=== PATIENT | female | born 1940 | race African-American/Black ===

== ENCOUNTER 2018-11-08 23:17 | Inpatient (IN) | payer MEDICARE, OTHER ==
[~2018-11-08] VITALS: Ht 172.7 cm; Wt 104.4 kg
[2018-11-08 23:30] VITALS: BP 148/86
--- NOTE | 2018-11-08 23:30 | NUR ---
ED Nurse Note: pt brought in by [facility] from [facility] c/c elevated temp, per EMS report, pt had 100.6 temp at the [facility]. noted pt temp=99.1 rectal at the bedside. pt sinus rhythm on outpatient phlebotomist, +trach, +gtube, noted sacral pressure ulcer stg 2 with dressing, noted nava cath, noted hernia on abd area, pt didi arms and legs flaccid, strength=0, noted swelling around mouth and left facial area, will cont monitor.
[2018-11-08 23:43] LABS: BASOPHILS % (AUTO) 0.7 % (0.0-2.0); EOSINOPHILS % (AUTO) 1.5 % (0.0-3.0); HEMATOCRIT 31.2 % (37.0-47.0); HEMOGLOBIN 10.3 G/DL (12.0-16.0); LYMPHOCYTES % (AUTO) 17.3 % (20.0-45.0); MEAN CORPUSCULAR VOLUME 76 FL (80-99); NEUTROPHILS % (AUTO) 69.6 % (45.0-75.0); PLATELET COUNT 254 K/UL (150-450); RED BLOOD COUNT 4.12 M/UL (4.20-5.40); RED CELL DISTRIBUTION WIDTH 24.8 % (11.6-14.8); WHITE BLOOD COUNT 8.2 K/UL (4.8-10.8)
[2018-11-08 23:57] LABS: ANION GAP 5 mmol/L (5-15); BLOOD UREA NITROGEN 16 mg/dL (7-18); CALCIUM 8.7 MG/DL (8.5-10.1); CARBON DIOXIDE 35 MMOL/L (21-32); CHLORIDE 97 MMOL/L (98-107); CREATININE 0.4 MG/DL (0.55-1.30); POTASSIUM 3.8 MMOL/L (3.5-5.1); SODIUM 137 MMOL/L (136-145)
[2018-11-09] VITALS (8 sets, daily range): BP systolic 133–159; BP diastolic 73–99
--- NOTE | 2018-11-09 | NUR ---
ED Nurse Note: pt cleaned and changed. will cont monitor.
[2018-11-09 00:24] LABS: ALANINE AMINOTRANSFERASE 119 U/L (12-78); ALBUMIN 1.6 G/DL (3.4-5.0); ALBUMIN/GLOBULIN RATIO 0.3 (1.0-2.7); ALKALINE PHOSPHATASE 246 U/L (46-116); ASPARTATE AMINO TRANSFERASE 138 U/L (15-37); BILIRUBIN,TOTAL 0.2 MG/DL (0.2-1.0); CKMB 1.7 NG/ML (0.0-3.6); CREATINE KINASE 103 U/L (26-308)
[2018-11-09] MEDS ORDERED: SENNA8.6 M2 GT (01:10)
[2018-11-09] MEDS ORDERED: LOVENOX40 MG/0.4 SUBQ (01:10)
[2018-11-09] MEDS ORDERED: MAGNESIUM OXID400 M1 GT ×2 (01:10→04:07)
[2018-11-09] MEDS ORDERED: DULCOLAX10 MG RC (01:10)
[2018-11-09] MEDS ORDERED: HYDRALAZINE HCL10 MG GT (01:10)
[2018-11-09] MEDS ORDERED: VALPROATE500 MG/5 M GT (01:10)
[2018-11-09] MEDS ORDERED: FAMOTIDINE20 MG GT (01:10)
[2018-11-09] MEDS ORDERED: ZOFRAN4 M1 GT (01:10)
[2018-11-09] MEDS ORDERED: NATURAL FIBER283 GM GT (01:10)
[2018-11-09] MEDS ORDERED: IPRATROPIU0.2 MG/1 M HHN ×2 (01:10)
[2018-11-09] MEDS ORDERED: KEPPRA LIQ100 MG/1 M GT (01:10)
[2018-11-09] MEDS ORDERED: NORMODYNE200 MG ORAL (01:10)
[2018-11-09] MEDS ORDERED: CRANBERRY450 M5 GT (01:10)
[2018-11-09] MEDS ORDERED: NORVASC10 MG GT (01:10)
[2018-11-09] MEDS ORDERED: MULTIVITAMINS1 EA13 GT (01:10)
[2018-11-09] MEDS ORDERED: PHENOBARBITAL60 MG GT (01:10)
[2018-11-09] MEDS ORDERED: VITAMIN C500 M7 GT (01:10)
[2018-11-09] MEDS ORDERED: DILANTIN100 MG ORAL (01:10)
[2018-11-09] MEDS ORDERED: CALCIUM500 M2 GT (01:10)
[2018-11-09] MEDS ORDERED: ATIVAN2 MG/1 ML SL (01:10)
[2018-11-09] MEDS ORDERED: FEROSUL220 MG/5 M GT (01:10)
[2018-11-09] MEDS ORDERED: PERIDEX15 ML MM ×3 (01:10→04:07)
[2018-11-09] MEDS ORDERED: LANTUS SOL100 UNIT/1 SUBQ (01:10)
[2018-11-09] MEDS ORDERED: FUROSEMIDE40 MG/5 ML GT (01:10)
[2018-11-09] MEDS ORDERED: ACETAMINOPHEN325 M1 GT (01:10)
[2018-11-09] MEDS ORDERED: HUMALOG100 UNIT/1 SUBQ (01:10)
[2018-11-09] MEDS ORDERED: MILK OF MA2400 MG/10 GT (01:10)
[2018-11-09 02:15] LABS: APPEARANCE,URINE SLIGHTLY CLOUDY; BILIRUBIN, URINE NEGATIVE (NEGATIVE); GLUCOSE, URINE (UA) NEGATIVE (NEGATIVE); KETONES,URINE 1+ (NEGATIVE); LEUKOCYTE ESTERASE ,URINE 1+ (NEGATIVE); NITRITE,URINE NEGATIVE (NEGATIVE); PH,URINE 7 (4.5-8.0); PROTEIN,URINE 3+ (NEGATIVE); UROBILINOGEN,URINE 1 MG/DL (0.0-1.0)
[2018-11-09 02:24] LABS: COLOR,URINE YELLOW
--- NOTE | 2018-11-09 02:35 | NUR ---
ED Nurse Note: REPORT GIVEN TO RN AUGUST FROM SDU.
[2018-11-09] MEDS ORDERED: cefTRIAXone 1 GM in D5W 55 ML IVPB ONE (02:45)
--- NOTE | 2018-11-09 02:50 | NUR ---
ED Nurse Note: pt transferred to SDU via [facility], vss, sinus rhythm on sample tailor, no sx distress, RT present during transport, care endorsed to Rn Gianfranco from SDU, no belongings.
--- NOTE | 2018-11-09 03:00 | NUR ---
NURSE NOTES: Pt transferred to the unit via gurney. No belongings noted. Observed pt lying in the bed, flaccid, no reaction to pain. VS BP 159/87, P 101, T 101.5, R 23, SaO2 100% noted. Ice packs applied. Will give PRN med and closely monitor on temperature. Gt intact, no residual noted, flushing well. Abd soft, round, non-tender. Sacral stage 3 noted with red wound and white slough. R heel DTI noted. Bed in the lowest position. Side rails up x3. Will continue to monitor.
--- NOTE | 2018-11-09 03:38 | Emergency Room Report ---
History of Present Illness General Chief Complaint: Fever Source: Medical Record Present Illness HPI Patient presents by paramedics from nursing facility Reports of fever documented at the nursing facility patient has been given different medications however is reported to continue to have Breakthrough fevers Patient herself has a tracheostomy in place vent dependent and is not verbal Patient has a PICC line in the left upper arm there was no other reports of vomiting or diarrhea Allergies: Coded Allergies: No Known Allergies (Unverified , 11/08/18) Patient History Limited by: medical condition Past Medical History: see triage record Last Menstrual Period: n/a Reviewed Nursing Documentation: PMH: Agreed; PSxH: Agreed Nursing Documentation-PMH Past Medical History: No History, Except For Hx Cardiac Problems: Yes Hx Hypertension: Yes Hx Diabetes: Yes - Type 2 Hx Cancer: Yes - malignant neoplasm of overlapping site of colon Hx Gastrointestinal Problems: Yes - gastrostomy status Hx Neurological Problems: Yes - anoxic brain damage Hx Encephalitis: Yes - Encephalopathy Hx Seizures: Yes Review of Systems All Other Systems: limited - Other than the ones mentioned in the history of present illness all others are reviewed however they do stay limited due to the patient's mental status Physical Exam Vital Signs Date Time Temp Pulse Resp B/P (MAP) Pulse Ox O2 Delivery O2 Flow Rate FiO2 11/08/18 23:17 100.6 94 18 150/73 (98) 100 Mechanical Ventilator 11/08/18 23:26 30 Sp02 EP Interpretation: reviewed, normal General Appearance: no apparent distress Head: normocephalic, atraumatic Eyes: bilateral eye PERRL ENT: other - Patient has edematous tongue and lips, tracheostomy in place Neck: supple Respiratory: no retraction, no accessory muscle use, crackles - bilaterally Cardiovascular #1: regular rate, rhythm Gastrointestinal: normal bowel sounds, non tender Genitourinary: no CVA tenderness Musculoskeletal: other - Patient is not awake does not follow commands Neurologic: responsive - To physical stimuli Skin: other - Oral mucosa as noted above swelling diffusely Lymphatic: no adenopathy Medical Decision Making Diagnostic Impression: Primary Impression: Fever Additional Impression: Sepsis ER Course Patient is a fairly complex patient with multiple differential to consideration including but not limited to cardiac cardiopulmonary, infectious and vascular emergencies Patient has PICC line in the left upper arm possible source of infection Otherwise broad-spectrum antibiotic initiated patient has further evaluation through urine studies and other imaging and requires further inpatient care Labs Test 11/08/18 23:10 11/09/18 02:05 White Blood Count 8.2 K/UL (4.8-10.8) Red Blood Count 4.12 M/UL (4.20-5.40) Hemoglobin 10.3 G/DL (12.0-16.0) Hematocrit 31.2 % (37.0-47.0) Mean Corpuscular Volume 76 FL (80-99) Mean Corpuscular Hemoglobin 25.0 PG (27.0-31.0) Mean Corpuscular Hemoglobin Concent 33.0 G/DL (32.0-36.0) Red Cell Distribution Width 24.8 % (11.6-14.8) Platelet Count 254 K/UL (150-450) Mean Platelet Volume 5.9 FL (6.5-10.1) Neutrophils (%) (Auto) 69.6 % (45.0-75.0) Lymphocytes (%) (Auto) 17.3 % (20.0-45.0) Monocytes (%) (Auto) 11.0 % (1.0-10.0) Eosinophils (%) (Auto) 1.5 % (0.0-3.0) Basophils (%) (Auto) 0.7 % (0.0-2.0) Sodium Level 137 MMOL/L (136-145) Potassium Level 3.8 MMOL/L (3.5-5.1) Chloride Level 97 MMOL/L (98-107) Carbon Dioxide Level 35 MMOL/L (21-32) Anion Gap 5 mmol/L (5-15) Blood Urea Nitrogen 16 mg/dL (7-18) Creatinine 0.4 MG/DL (0.55-1.30) Estimat Glomerular Filtration Rate mL/min (>60) Glucose Level 93 MG/DL (74-106) Lactic Acid Level 0.90 mmol/L (0.4-2.0) Calcium Level 8.7 MG/DL (8.5-10.1) Total Bilirubin 0.2 MG/DL (0.2-1.0) Aspartate Amino Transf (AST/SGOT) 138 U/L (15-37) Alanine Aminotransferase (ALT/SGPT) 119 U/L (12-78) Alkaline Phosphatase 246 U/L (46-116) Total Creatine Kinase 103 U/L (26-308) Creatine Kinase MB 1.7 NG/ML (0.0-3.6) Creatine Kinase MB Relative Index 1.6 Troponin I 0.064 ng/mL (0.000-0.056) Total Protein 6.8 G/DL (6.4-8.2) Albumin 1.6 G/DL (3.4-5.0) Globulin 5.2 g/dL Albumin/Globulin Ratio 0.3 (1.0-2.7) Urine Color Yellow Urine Appearance Slightly cloudy Urine pH 7 (4.5-8.0) Urine Specific [place] 1.010 (1.005-1.035) Urine Protein 3+ (NEGATIVE) Urine Glucose (UA) Negative (NEGATIVE) Urine Ketones 1+ (NEGATIVE) Urine Blood 4+ (NEGATIVE) Urine Nitrite Negative (NEGATIVE) Urine Bilirubin Negative (NEGATIVE) Urine Urobilinogen 1 MG/DL (0.0-1.0) Urine Leukocyte Esterase 1+ (NEGATIVE) Urine RBC 40-60 /HPF (0 - 2) Urine WBC 2-4 /HPF (0 - 2) Urine Squamous Epithelial Cells Few /LPF (NONE/OCC) Urine Bacteria Moderate /HPF (NONE) Urine Coarse Granular Casts 5-10 /LPF (NONE) Rhythm Strip Diag. Results EP Interpretation: yes Rate: 88 Rhythm: NSR, no PVC's, no ectopy Chest X-Ray Diagnostic Results Chest X-Ray Diagnostic Results : Chest X-Ray Ordered: Yes # of Views/Limited/Complete: 1 View Indication: Chest Pain EP Interpretation: Yes Interpretation: no consolidation, no pneumothorax, other - Pulmonary congestion cardiomegaly Impression: Other - Pulmonary congestion Electronically Signed by: Dali Samuel DO Last Vital Signs Date Time Temp Pulse Resp B/P (MAP) Pulse Ox O2 Delivery O2 Flow Rate FiO2 11/09/18 03:11 92 20 100 Mechanical Ventilator 30 11/09/18 01:30 98.2 133/73 Status: improved Disposition: ADMITTED INPATIENT Condition: Serious Referrals: NON PHYSICIAN (PCP) Dali Samuel DO Nov 09, 2018 03:38
[2018-11-09] MEDS ORDERED: NORMODYNE200 MG GT (04:07)
[2018-11-09] MEDS ORDERED: DILANTIN-1125 MG/5 M GT (04:07)
[2018-11-09] MEDS ORDERED: CALCIUM500 M3 GT (04:07)
--- NOTE | 2018-11-09 04:30 | NUR ---
NURSE NOTES: called back and give admitting orders. Will follow the plan of care.
[2018-11-09] MEDS ORDERED: Sennosides 8.6mg tab GT SCH ×2 (05:00→09:00)
[2018-11-09] MEDS ORDERED: Milk of Magnesia 30ml Ud GT PRN (05:00)
[2018-11-09] MEDS ORDERED: LORazepam Inj 2mg/ml 1ml IVP PRN (05:00)
[2018-11-09] MEDS ORDERED: Ipratropium 0.02% Inh Soln 2.5ml UD HHN PRN (05:00)
--- NOTE | 2018-11-09 05:00 | NUR ---
NURSE NOTES: Tylenol 650mg given and ice pack applied. Temperature 97.9 noted. Will continue to monitor.
[2018-11-09] MEDS: Acetaminophen 650mg/20.3ml GT PRN (05:26)
[2018-11-09] MEDS: Piperacillin/Tazobactam 3.375 GM in NS 110 ML IVPB SCH ×3 (05:56→21:05)
[2018-11-09] MEDS: NovoLOG Insulin Flexpen SUBQ SCH ×4 (06:00→23:03)
[2018-11-09] MEDS: Labetalol 200mg tab GT SCH ×3 (06:00→21:01)
[2018-11-09] MEDS: HydrALAZINE 10mg Tab GT SCH ×3 (06:00→22:00)
[2018-11-09] MEDS: Phenytoin Susp 100mg/4ml GT SCH ×3 (06:18→21:04)
[2018-11-09] MEDS: Valproic Acid 250mg/5ml Liquid GT SCH ×3 (06:20→21:01)
--- NOTE | 2018-11-09 06:30 | NUR ---
RESPIRATORY NOTE: Received pt on current vent settings: AC 14-375ml-30%FiO2-peep 5. Pt is trach dependent with trach Shiley cuffed 8.0, secured with trach tie. Pt is stable in condition, no reactions to stimuli. Juan rhonchi diminished breath sounds heard upon auscultation, suctioned small amount of thin mccauley yellow secretions without incidents. No SOB or resp distress noted. Alarms are set and audible, vent is plugged into the red outlet, ambu bag and spare trach kit at bedside. will continue to monitor and suction q2h and as needed. Addendum: 11/09/18 at 1740 by Marta Garcia Jarvis RT There is a wound close to the trach area on the right side below the neck, cover with wound tape. Will notify RN about the wound.
--- NOTE | 2018-11-09 07:30 | NUR ---
HAND-OFF: Report given to CHARLEE Aggarwal.
--- NOTE | 2018-11-09 07:31 | NUR ---
NURSE NOTES: received pt from Gianfranco DESHPANDE., pt is sleeping on the bed and vent dependent. bed is lowest position, call light within reach. will keep continue plan of care.
[2018-11-09] MEDS ORDERED: Magnesium Oxide 400mg tab GT SCH (09:00)
[2018-11-09] MEDS ORDERED: Ferrous Sulfate 300 MG/5 ML UDC GT SCH (09:00)
[2018-11-09] MEDS ORDERED: Tums 500mg GT SCH (09:00)
[2018-11-09] MEDS: Levemir Flexpen SUBQ SCH ×2 (09:00→18:39)
[2018-11-09] MEDS: levETIRAcetam 500mg/5ml Liquid GT SCH ×2 (09:10→20:41)
[2018-11-09] MEDS: Furosemide 40mg tab GT SCH ×2 (09:10→20:41)
[2018-11-09] MEDS: Enoxaparin 40mg Inj SUBQ SCH (09:11)
--- NOTE | 2018-11-09 09:27 | NUR ---
CASE MANAGEMENT: INITIAL REVIEW 78 YO F FÁTIMA FROM [facility] CC: FEVER PMHx: HTN. VENT DEPENDENT. DM2. COLON CA. ANOXIC BRAIN INJURY. SZ. SI:SEPSIS. T 100.6 HR 94 RR 18 B/P 150/73 SATS 100% ON MECH VENT FIO2 30 CL 97 CO2 35 CR 0.4 AST 138 ALT 119 ALP 246 TROPONIN 0.064 ALBUMIN 1.6 IS: NS BOLUS X1 CEFTRIAXONE IV X1 PATIENT ADMITTED TO SDU 11/09/2018 @ 0137 DCP: PATIENT TO BE DISCHARGED TO SNF ONCE MEDICALLY CLEARED PLAN OF CARE: SPUTUM CX WOUND CARE CXR Addendum: 11/09/18 at 1732 by Christi Agarwal CM INTERQUAL MET
--- NOTE | 2018-11-09 10:10 | History and Physical ---
History of Present Illness General Date patient seen: Nov 09, 2018 Reason for Hospitalization: Fever Present Illness HPI Patient nonverbal history obtained through chart Patient presents by paramedics from nursing facility Reports of fever documented at the nursing facility patient has been given different medications however is reported to continue to have Breakthrough fevers Patient herself has a tracheostomy in place vent dependent and is not verbal Patient has a PICC line in the left upper arm there was no other reports of vomiting or diarrhea Patient was then admitted for sepsis secondary to UTI and placed on Zosyn. Noted to have elevated troponin. HPI: Past medical history: Trach dependent Medications: As per custodial record Allergies: No known drug allergies Family history: Unknown Past social history: None ROS: Unable to obtain Allergies: Coded Allergies: No Known Allergies (Unverified , 11/08/18) Medication History Scheduled Amlodipine Besylate (Norvasc), 10 MG GT DAILY, (Reported) Ascorbate Calcium (Vitamin C), 500 MG GT DAILY, (Reported) Calcium Carbonate (Calcium), 500 MG GT TID, (Reported) Chlorhexidine Gluconate (Peridex), 15 ML MM TID, (Reported) Cranberry Fruit (Cranberry), 450 MG GT DAILY, (Reported) Enoxaparin (Lovenox), 40 MG SUBQ DAILY, (Reported) Famotidine (Famotidine), 20 MG GT TWICE A DAY, (Reported) Ferrous Sulfate (Ferosul), 7.5 ML GT DAILY, (Reported) Furosemide (Furosemide), 40 MG GT BID, (Reported) Hydralazine Hcl* (Hydralazine Hcl*), 5 MG GT EVERY 8 HOURS, (Reported) Insulin Glargine (Lantus), 6 UNITS SUBQ BID, (Reported) Labetalol HCl (Labetalol HCl), 200 MG GT Q8HR, (Reported) Levetiracetam (Keppra), 15 ML GT Q12HR, (Reported) Magnesium Oxide (Magnesium Oxide), 400 MG GT TID, (Reported) Multivitamin with Minerals (Multivitamins with Minerals), 1 TAB GT DAILY, ( Reported) Phenobarbital* (Phenobarbital*), 60 MG GT BID, (Reported) Phenytoin (Dilantin-125), 100 MG GT Q8HR, (Reported) Psyllium Seed/Aspartame (Natural Fiber Powder), 5 ML GT DAILY, (Reported) Sennosides (Senna), 8.6 MG GT Q12H, (Reported) Valproate Sodium (Valproate Sodium), 500 MG GT Q8HR, (Reported) Scheduled PRN Acetaminophen* (Acetaminophen 325MG Tablet*), 650 MG GT Q4H PRN for Mild Pain/ Temp > 100.5, (Reported) Bisacodyl (Dulcolax), 10 MG RC DAILY PRN for Constipation, (Reported) Ipratropium [place] 0.5MG/2.5ML (Ipratropium [place] 0.5MG/2.5ML), 3 MG HHN Q2H PRN for Shortness of Breath, (Reported) Ipratropium [place] 0.5MG/2.5ML (Ipratropium [place] 0.5MG/2.5ML), 3 MG HHN Q6H PRN for Shortness of Breath, (Reported) Lorazepam* (Ativan*), 2 MG SL DAILY PRN for For Seizures, (Reported) Magnesium Hydroxide* (Milk Of Magnesia*), 30 ML GT DAILY PRN for Constipation, ( Reported) Ondansetron (Zofran), 4 MG GT Q6H PRN for Nausea & Vomiting, (Reported) Miscellaneous Medications Insulin Lispro (Humalog), 0 SUBQ, (Reported) Patient History Limited by: medical condition Healthcare decision maker Resuscitation status Full Code Advanced Directive on File No Physical Exam Last 24 Hour Vital Signs Date Time Temp Pulse Resp B/P (MAP) Pulse Ox O2 Delivery O2 Flow Rate FiO2 11/09/18 09:10 92 155/99 11/09/18 08:52 92 29 30 11/09/18 08:00 97.7 91 26 155/99 (117) 100 11/09/18 06:30 94 24 30 11/09/18 06:00 94 101/60 11/09/18 06:00 101/60 11/09/18 05:56 99.8 11/09/18 05:06 100 19 30 11/09/18 04:00 Mechanical Ventilator 11/09/18 04:00 30.0 11/09/18 04:00 100 11/09/18 04:00 99.7 95 23 140/76 (97) 100 11/09/18 03:12 99 11/09/18 03:11 92 20 100 Mechanical Ventilator 30 11/09/18 03:00 101.5 101 23 159/87 (111) 100 11/09/18 03:00 93 26 30 11/09/18 02:56 Endotracheal Tube 11/09/18 02:50 98.4 93 20 117/80 100 Mechanical Ventilator 30 11/09/18 01:30 98.2 92 20 133/73 100 Mechanical Ventilator 30 11/09/18 01:15 91 20 30 11/09/18 00:36 30 11/09/18 00:36 93 26 Mechanical Ventilator 30 11/09/18 00:30 99.4 93 20 150/73 100 Mechanical Ventilator 30 11/08/18 23:31 93 26 30 11/08/18 23:30 99.1 92 26 148/86 100 Mechanical Ventilator 30 11/08/18 23:26 93 26 100 Mechanical Ventilator 30 11/08/18 23:17 100.6 94 18 150/73 (98) 100 Mechanical Ventilator Intake and Output 11/08/18 11/09/18 18:59 06:59 Intake Total 565 ml Balance 565 ml Intake IV Total 565 ml # Voids 100 Laboratory Tests Test 11/08/18 23:10 11/09/18 02:05 White Blood Count 8.2 K/UL (4.8-10.8) Red Blood Count 4.12 M/UL (4.20-5.40) L Hemoglobin 10.3 G/DL (12.0-16.0) L Hematocrit 31.2 % (37.0-47.0) L Mean Corpuscular Volume 76 FL (80-99) L Mean Corpuscular Hemoglobin 25.0 PG (27.0-31.0) L Mean Corpuscular Hemoglobin Concent 33.0 G/DL (32.0-36.0) Red Cell Distribution Width 24.8 % (11.6-14.8) H Platelet Count 254 K/UL (150-450) Mean Platelet Volume 5.9 FL (6.5-10.1) L Neutrophils (%) (Auto) 69.6 % (45.0-75.0) Lymphocytes (%) (Auto) 17.3 % (20.0-45.0) L Monocytes (%) (Auto) 11.0 % (1.0-10.0) H Eosinophils (%) (Auto) 1.5 % (0.0-3.0) Basophils (%) (Auto) 0.7 % (0.0-2.0) Sodium Level 137 MMOL/L (136-145) Potassium Level 3.8 MMOL/L (3.5-5.1) Chloride Level 97 MMOL/L (98-107) L Carbon Dioxide Level 35 MMOL/L (21-32) H Anion Gap 5 mmol/L (5-15) Blood Urea Nitrogen 16 mg/dL (7-18) Creatinine 0.4 MG/DL (0.55-1.30) L Estimat Glomerular Filtration Rate mL/min (>60) Glucose Level 93 MG/DL (74-106) Lactic Acid Level 0.90 mmol/L (0.4-2.0) Calcium Level 8.7 MG/DL (8.5-10.1) Total Bilirubin 0.2 MG/DL (0.2-1.0) Aspartate Amino Transf (AST/SGOT) 138 U/L (15-37) H Alanine Aminotransferase (ALT/SGPT) 119 U/L (12-78) H Alkaline Phosphatase 246 U/L (46-116) H Total Creatine Kinase 103 U/L (26-308) Creatine Kinase MB 1.7 NG/ML (0.0-3.6) Creatine Kinase MB Relative Index 1.6 Troponin I 0.064 ng/mL (0.000-0.056) Total Protein 6.8 G/DL (6.4-8.2) Albumin 1.6 G/DL (3.4-5.0) L Globulin 5.2 g/dL Albumin/Globulin Ratio 0.3 (1.0-2.7) L Urine Color Yellow Urine Appearance Slightly cloudy Urine pH 7 (4.5-8.0) Urine Specific [place] 1.010 (1.005-1.035) Urine Protein 3+ (NEGATIVE) H Urine Glucose (UA) Negative (NEGATIVE) Urine Ketones 1+ (NEGATIVE) H Urine Blood 4+ (NEGATIVE) H Urine Nitrite Negative (NEGATIVE) Urine Bilirubin Negative (NEGATIVE) Urine Urobilinogen 1 MG/DL (0.0-1.0) H Urine Leukocyte Esterase 1+ (NEGATIVE) H Urine RBC 40-60 /HPF (0 - 2) H Urine WBC 2-4 /HPF (0 - 2) Urine Squamous Epithelial Cells Few /LPF (NONE/OCC) Urine Bacteria Moderate /HPF (NONE) H Urine Coarse Granular Casts 5-10 /LPF (NONE) H Microbiology Date/Time Source Procedure Growth Status 11/08/18 23:10 Rectum Received Height (Feet): 5 Height (Inches): 8.00 Weight (Pounds): 174 Medications Current Medications Medications (Trade) Dose Ordered Sig/Lupe Route PRN Reason Start Time Stop Time Status Last Admin Dose Admin Acetaminophen (Tylenol) 650 mg Q4H PRN GT Mild Pain/Temp > 100.5 11/09/18 05:00 12/09/18 04:59 11/09/18 05:26 Amlodipine Besylate (Norvasc) 10 mg DAILY GT 11/09/18 09:00 12/09/18 08:59 11/09/18 09:10 Bisacodyl (Dulcolax) 10 mg DAILY PRN RECTAL Constipation 11/09/18 05:00 12/09/18 04:59 Calcium Carbonate (Tums) 500 mg THREE TIMES A DAY GT 11/09/18 09:00 12/09/18 08:59 11/09/18 09:10 Chlorhexidine Gluconate (Corazon-Hex 2%) 1 applic DAILY@2000 TOPIC 11/09/18 20:00 12/09/18 19:59 Dextrose (Dextrose 50%) 25 ml Q30M PRN IV Hypoglycemia 11/09/18 04:45 12/09/18 04:44 Dextrose (Dextrose 50%) 50 ml Q30M PRN IV Hypoglycemia 11/09/18 04:45 12/09/18 04:44 11/09/18 09:09 Enoxaparin Sodium (Lovenox) 40 mg DAILY SUBQ 11/09/18 09:00 12/09/18 08:59 11/09/18 09:11 Famotidine (Pepcid) 20 mg TWICE A DAY GT 11/09/18 09:00 12/09/18 08:59 11/09/18 09:10 Ferrous Sulfate (Feosol) 300 mg THREE TIMES A DAY GT 11/09/18 09:00 12/09/18 08:59 11/09/18 09:08 Furosemide (Lasix) 40 mg EVERY 12 HOURS GT 11/09/18 09:00 12/09/18 08:59 11/09/18 09:10 Hydralazine HCl (Apresoline) 5 mg EVERY 8 HOURS GT 11/09/18 06:00 12/09/18 05:59 Insulin Aspart (NovoLOG) Q6HR SUBQ 11/09/18 06:00 12/09/18 05:59 Insulin Detemir (Levemir) 6 units BID SUBQ 11/09/18 09:00 12/09/18 08:59 Ipratropium [place] (Atrovent) 500 mcg Q6H PRN HHN Shortness of Breath 11/09/18 05:00 11/14/18 04:59 Labetalol HCl (Normodyne) 200 mg Q8HR GT 11/09/18 06:00 12/09/18 05:59 Levetiracetam (Keppra) 1,500 mg Q12HR GT 11/09/18 09:00 12/09/18 08:59 11/09/18 09:10 Lorazepam (Ativan 2mg/ml 1ml) 2 mg DAILY PRN IVP For Seizures 11/09/18 05:00 11/16/18 04:59 Magnesium Hydroxide (Mom) 30 ml DAILY PRN GT Constipation 11/09/18 05:00 12/09/18 04:59 Magnesium Oxide (Mag-Ox 400mg) 400 mg TID GT 11/09/18 09:00 12/09/18 08:59 11/09/18 09:10 Ondansetron HCl (Zofran) 4 mg Q6H PRN GT Nausea & Vomiting 11/09/18 05:00 12/09/18 04:59 Phenobarbital (PHENobarbital) 60 mg BID GT 11/09/18 09:00 12/09/18 08:59 Phenytoin (Dilantin) 100 mg Q8HR GT 11/09/18 06:00 12/09/18 05:59 11/09/18 06:18 Piperacillin Sod/ Tazobactam Sod 3.375 gm/Sodium Chloride 110 ml @ 27.5 mls/hr Q8H IVPB 11/09/18 06:00 11/16/18 05:59 11/09/18 05:56 Sennosides (Senokot) 8.6 mg BID GT 8/22/19 09:00 12/09/18 08:59 11/09/18 09:09 Valproic Acid (Depakene) 500 mg EVERY 8 HOURS GT 11/09/18 06:00 12/09/18 05:59 11/09/18 06:20 Objective Narrative GENERAL: Patient is vent dependent, nonverbal, does not follow commands HEENT: NCAT, non-icteric eyes, Neck: No cervical lymphadenopathy, trachea midline CV: Regular rate and rhythm, no murmurs rubs or gallops RESP: Clear to auscultation bilaterally, no wheezes, rhonchi right lung field EXT: Normal muscle tone, NEURO: No changes from baseline Assessment/Plan Diagnosis [place] I: polst uti sepsis bp maangement trop hep hiv 78-year-old female who is trach dependent who was brought in by custodial for sepsis and found to have UTI. #Sepsis secondary to UTI ID consult appreciate Crispin Continue antibiotics per ID: Zosyn Follow-up blood cultures, sputum cultures Chest x-ray reviewed: Atelectasis #Elevated troponin secondary to sepsis versus ACS Cardiology consult, appreciate recs Medications per cardiology #Hypertension Continue current medications, hydralazine as needed hypertension #Vent dependent Pulmonary consult, appreciate recs Vent management per pulmonary #Hypokalemia Replace, continue to monitor Time of note may not reflect time of patient encounter Pulsed reviewed: Full code Jennifer Belle DO Nov 09, 2018 10:10
[2018-11-09] MEDS: PHENobarbital Elixir 30mg/7.5ml GT SCH ×2 (10:33→18:47)
[2018-11-09 10:38] LABS: BASOPHILS % (AUTO) 0.6 % (0.0-2.0); EOSINOPHILS % (AUTO) 0.6 % (0.0-3.0); HEMATOCRIT 32.4 % (37.0-47.0); HEMOGLOBIN 10.3 G/DL (12.0-16.0); LYMPHOCYTES % (AUTO) 14.2 % (20.0-45.0); MEAN CORPUSCULAR VOLUME 77 FL (80-99); MONOCYTES % (AUTO) 10.7 % (1.0-10.0); NEUTROPHILS % (AUTO) 73.8 % (45.0-75.0); PLATELET COUNT 306 K/UL (150-450); RED BLOOD COUNT 4.19 M/UL (4.20-5.40); RED CELL DISTRIBUTION WIDTH 24.5 % (11.6-14.8); WHITE BLOOD COUNT 9.5 K/UL (4.8-10.8)
--- NOTE | 2018-11-09 10:48 | Consultation ---
History of Present Illness General Date patient seen: Nov 09, 2018 Time patient seen: 17:12 Chief Complaint: Fever Present Illness HPI pt brought in by [facility] from [facility] c/c elevated temp, per EMS report, pt had 100.6 temp at the intermediate. Patient has a Sacral stage 3 noted. Pt is trach dependent, no reaction to pain or stimuli. Cardiology consulted for elevated troponin. Allergies: Uncoded Allergies: Crawfish (Allergy, Unknown, 11/09/18) Medication History Scheduled Amlodipine Besylate (Norvasc), 10 MG GT DAILY, (Reported) Ascorbate Calcium (Vitamin C), 500 MG GT DAILY, (Reported) Calcium Carbonate (Calcium), 500 MG GT TID, (Reported) Chlorhexidine Gluconate (Peridex), 15 ML MM TID, (Reported) Cranberry Fruit (Cranberry), 450 MG GT DAILY, (Reported) Enoxaparin (Lovenox), 40 MG SUBQ DAILY, (Reported) Famotidine (Famotidine), 20 MG GT TWICE A DAY, (Reported) Ferrous Sulfate (Ferosul), 7.5 ML GT DAILY, (Reported) Furosemide (Furosemide), 40 MG GT BID, (Reported) Hydralazine Hcl* (Hydralazine Hcl*), 5 MG GT EVERY 8 HOURS, (Reported) Insulin Glargine (Lantus), 6 UNITS SUBQ BID, (Reported) Labetalol HCl (Labetalol HCl), 200 MG GT Q8HR, (Reported) Levetiracetam (Keppra), 15 ML GT Q12HR, (Reported) Magnesium Oxide (Magnesium Oxide), 400 MG GT TID, (Reported) Multivitamin with Minerals (Multivitamins with Minerals), 1 TAB GT DAILY, ( Reported) Phenobarbital* (Phenobarbital*), 60 MG GT BID, (Reported) Phenytoin (Dilantin-125), 100 MG GT Q8HR, (Reported) Psyllium Seed/Aspartame (Natural Fiber Powder), 5 ML GT DAILY, (Reported) Sennosides (Senna), 8.6 MG GT Q12H, (Reported) Valproate Sodium (Valproate Sodium), 500 MG GT Q8HR, (Reported) Scheduled PRN Acetaminophen* (Acetaminophen 325MG Tablet*), 650 MG GT Q4H PRN for Mild Pain/ Temp > 100.5, (Reported) Bisacodyl (Dulcolax), 10 MG RC DAILY PRN for Constipation, (Reported) Ipratropium [place] 0.5MG/2.5ML (Ipratropium [place] 0.5MG/2.5ML), 3 MG HHN Q2H PRN for Shortness of Breath, (Reported) Ipratropium [place] 0.5MG/2.5ML (Ipratropium [place] 0.5MG/2.5ML), 3 MG HHN Q6H PRN for Shortness of Breath, (Reported) Lorazepam* (Ativan*), 2 MG SL DAILY PRN for For Seizures, (Reported) Magnesium Hydroxide* (Milk Of Magnesia*), 30 ML GT DAILY PRN for Constipation, ( Reported) Ondansetron (Zofran), 4 MG GT Q6H PRN for Nausea & Vomiting, (Reported) Miscellaneous Medications Insulin Lispro (Humalog), 0 SUBQ, (Reported) Patient History Healthcare decision maker Resuscitation status Full Code Advanced Directive on File No Review of Systems Constitutional: Reports: no symptoms Eye: Reports: no symptoms ENT: Reports: no symptoms Respiratory: Reports: no symptoms Cardiovascular: Reports: no symptoms Gastrointestinal: Reports: no symptoms Genitourinary: Reports: no symptoms Musculoskeletal: Reports: no symptoms Skin: Reports: no symptoms Psychiatric: Reports: no symptoms Neurological: Reports: no symptoms Endocrine: Reports: no symptoms Hematologic/Lymphatic: Reports: no symptoms Physical Exam General Appearance: no apparent distress Lines, tubes and drains: peripheral HEENT: normocephalic, atraumatic Neck: non-tender, normal alignment, supple, normal inspection Respiratory/Chest: chest wall non-tender, lungs clear Cardiovascular/Chest: normal peripheral pulses, normal rate, regular rhythm Abdomen: normal bowel sounds, non tender, soft, no organomegaly, no mass Extremities: normal range of motion, non-tender, normal inspection, no calf tenderness, normal capillary refill, non-pitting Skin Exam: normal pigmentation, warm/dry, cyanotic 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, no motor/sensory deficits Last 24 Hour Vital Signs Date Time Temp Pulse Resp B/P (MAP) Pulse Ox O2 Delivery O2 Flow Rate FiO2 11/09/18 09:10 92 155/99 11/09/18 08:52 92 29 30 11/09/18 08:00 97.7 91 26 155/99 (117) 100 11/09/18 07:36 92 11/09/18 06:30 94 24 30 11/09/18 06:00 94 101/60 11/09/18 06:00 101/60 11/09/18 05:56 99.8 11/09/18 05:06 100 19 30 11/09/18 04:00 Mechanical Ventilator 11/09/18 04:00 30.0 11/09/18 04:00 100 11/09/18 04:00 99.7 95 23 140/76 (97) 100 11/09/18 03:12 99 11/09/18 03:11 92 20 100 Mechanical Ventilator 30 11/09/18 03:00 101.5 101 23 159/87 (111) 100 11/09/18 03:00 93 26 30 11/09/18 02:56 Endotracheal Tube 11/09/18 02:50 98.4 93 20 117/80 100 Mechanical Ventilator 30 11/09/18 01:30 98.2 92 20 133/73 100 Mechanical Ventilator 30 11/09/18 01:15 91 20 30 11/09/18 00:36 30 11/09/18 00:36 93 26 Mechanical Ventilator 30 11/09/18 00:30 99.4 93 20 150/73 100 Mechanical Ventilator 30 11/08/18 23:31 93 26 30 11/08/18 23:30 99.1 92 26 148/86 100 Mechanical Ventilator 30 11/08/18 23:26 93 26 100 Mechanical Ventilator 30 11/08/18 23:17 100.6 94 18 150/73 (98) 100 Mechanical Ventilator Intake and Output 11/08/18 11/09/18 18:59 06:59 Intake Total 565 ml Balance 565 ml Intake IV Total 565 ml # Voids 100 Laboratory Tests Test 11/08/18 23:10 11/09/18 02:05 11/09/18 10:25 White Blood Count 8.2 K/UL (4.8-10.8) 9.5 K/UL (4.8-10.8) Red Blood Count 4.12 M/UL (4.20-5.40) L 4.19 M/UL (4.20-5.40) L Hemoglobin 10.3 G/DL (12.0-16.0) L 10.3 G/DL (12.0-16.0) L Hematocrit 31.2 % (37.0-47.0) L 32.4 % (37.0-47.0) L Mean Corpuscular Volume 76 FL (80-99) L 77 FL (80-99) L Mean Corpuscular Hemoglobin 25.0 PG (27.0-31.0) L 24.7 PG (27.0-31.0) L Mean Corpuscular Hemoglobin Concent 33.0 G/DL (32.0-36.0) 31.9 G/DL (32.0-36.0) L Red Cell Distribution Width 24.8 % (11.6-14.8) H 24.5 % (11.6-14.8) H Platelet Count 254 K/UL (150-450) 306 K/UL (150-450) Mean Platelet Volume 5.9 FL (6.5-10.1) L 5.8 FL (6.5-10.1) L Neutrophils (%) (Auto) 69.6 % (45.0-75.0) 73.8 % (45.0-75.0) Lymphocytes (%) (Auto) 17.3 % (20.0-45.0) L 14.2 % (20.0-45.0) L Monocytes (%) (Auto) 11.0 % (1.0-10.0) H 10.7 % (1.0-10.0) H Eosinophils (%) (Auto) 1.5 % (0.0-3.0) 0.6 % (0.0-3.0) Basophils (%) (Auto) 0.7 % (0.0-2.0) 0.6 % (0.0-2.0) Sodium Level 137 MMOL/L (136-145) Pending Potassium Level 3.8 MMOL/L (3.5-5.1) Pending Chloride Level 97 MMOL/L (98-107) L Pending Carbon Dioxide Level 35 MMOL/L (21-32) H Pending Anion Gap 5 mmol/L (5-15) Blood Urea Nitrogen 16 mg/dL (7-18) Pending Creatinine 0.4 MG/DL (0.55-1.30) L Pending Estimat Glomerular Filtration Rate mL/min (>60) Pending Glucose Level 93 MG/DL (74-106) Pending Lactic Acid Level 0.90 mmol/L (0.4-2.0) Calcium Level 8.7 MG/DL (8.5-10.1) Pending Total Bilirubin 0.2 MG/DL (0.2-1.0) Pending Aspartate Amino Transf (AST/SGOT) 138 U/L (15-37) H Pending Alanine Aminotransferase (ALT/SGPT) 119 U/L (12-78) H Pending Alkaline Phosphatase 246 U/L (46-116) H Pending Total Creatine Kinase 103 U/L (26-308) Creatine Kinase MB 1.7 NG/ML (0.0-3.6) Creatine Kinase MB Relative Index 1.6 Troponin I 0.064 ng/mL (0.000-0.056) Pending Total Protein 6.8 G/DL (6.4-8.2) Pending Albumin 1.6 G/DL (3.4-5.0) L Pending Globulin 5.2 g/dL Pending Albumin/Globulin Ratio 0.3 (1.0-2.7) L Urine Color Yellow Urine Appearance Slightly cloudy Urine pH 7 (4.5-8.0) Urine Specific [place] 1.010 (1.005-1.035) Urine Protein 3+ (NEGATIVE) H Urine Glucose (UA) Negative (NEGATIVE) Urine Ketones 1+ (NEGATIVE) H Urine Blood 4+ (NEGATIVE) H Urine Nitrite Negative (NEGATIVE) Urine Bilirubin Negative (NEGATIVE) Urine Urobilinogen 1 MG/DL (0.0-1.0) H Urine Leukocyte Esterase 1+ (NEGATIVE) H Urine RBC 40-60 /HPF (0 - 2) H Urine WBC 2-4 /HPF (0 - 2) Urine Squamous Epithelial Cells Few /LPF (NONE/OCC) Urine Bacteria Moderate /HPF (NONE) H Urine Coarse Granular Casts 5-10 /LPF (NONE) H Hepatitis A IgM Antibody Pending Hepatitis B Surface Antigen Pending Hepatitis B Core IgM Antibody Pending Hepatitis C Antibody Pending HIV (1&2) Antibody Rapid Pending Microbiology Date/Time Source Procedure Growth Status 11/08/18 23:10 Rectum Received Height (Feet): 5 Height (Inches): 8.00 Weight (Pounds): 174 Medications Current Medications Medications (Trade) Dose Ordered Sig/Lupe Route PRN Reason Start Time Stop Time Status Last Admin Dose Admin Acetaminophen (Tylenol) 650 mg Q4H PRN GT Mild Pain/Temp > 100.5 11/09/18 05:00 12/09/18 04:59 11/09/18 05:26 Amlodipine Besylate (Norvasc) 10 mg DAILY GT 11/09/18 09:00 12/09/18 08:59 11/09/18 09:10 Bisacodyl (Dulcolax) 10 mg DAILY PRN RECTAL Constipation 11/09/18 05:00 12/09/18 04:59 Calcium Carbonate (Tums) 500 mg THREE TIMES A DAY GT 11/09/18 09:00 12/09/18 08:59 11/09/18 09:10 Chlorhexidine Gluconate (Corazon-Hex 2%) 1 applic DAILY@2000 TOPIC 11/09/18 20:00 12/09/18 19:59 Dextrose (Dextrose 50%) 25 ml Q30M PRN IV Hypoglycemia 11/09/18 04:45 12/09/18 04:44 Dextrose (Dextrose 50%) 50 ml Q30M PRN IV Hypoglycemia 11/09/18 04:45 12/09/18 04:44 11/09/18 09:09 Enoxaparin Sodium (Lovenox) 40 mg DAILY SUBQ 11/09/18 09:00 12/09/18 08:59 11/09/18 09:11 Famotidine (Pepcid) 20 mg TWICE A DAY GT 11/09/18 09:00 12/09/18 08:59 11/09/18 09:10 Ferrous Sulfate (Feosol) 300 mg THREE TIMES A DAY GT 11/09/18 09:00 12/09/18 08:59 11/09/18 09:08 Furosemide (Lasix) 40 mg EVERY 12 HOURS GT 11/09/18 09:00 12/09/18 08:59 11/09/18 09:10 Hydralazine HCl (Apresoline) 5 mg EVERY 8 HOURS GT 11/09/18 06:00 12/09/18 05:59 Insulin Aspart (NovoLOG) Q6HR SUBQ 11/09/18 06:00 12/09/18 05:59 Insulin Detemir (Levemir) 6 units BID SUBQ 11/09/18 09:00 12/09/18 08:59 Ipratropium [place] (Atrovent) 500 mcg Q6H PRN HHN Shortness of Breath 11/09/18 05:00 11/14/18 04:59 Labetalol HCl (Normodyne) 200 mg Q8HR GT 11/09/18 06:00 12/09/18 05:59 Levetiracetam (Keppra) 1,500 mg Q12HR GT 11/09/18 09:00 12/09/18 08:59 11/09/18 09:10 Lorazepam (Ativan 2mg/ml 1ml) 2 mg DAILY PRN IVP For Seizures 11/09/18 05:00 11/16/18 04:59 Magnesium Hydroxide (Mom) 30 ml DAILY PRN GT Constipation 11/09/18 05:00 12/09/18 04:59 Magnesium Oxide (Mag-Ox 400mg) 400 mg TID GT 11/09/18 09:00 12/09/18 08:59 11/09/18 09:10 Ondansetron HCl (Zofran) 4 mg Q6H PRN GT Nausea & Vomiting 11/09/18 05:00 12/09/18 04:59 Phenobarbital (PHENobarbital) 60 mg BID GT 11/09/18 09:00 12/09/18 08:59 11/09/18 10:33 Phenytoin (Dilantin) 100 mg Q8HR GT 11/09/18 06:00 12/09/18 05:59 11/09/18 06:18 Piperacillin Sod/ Tazobactam Sod 3.375 gm/Sodium Chloride 110 ml @ 27.5 mls/hr Q8H IVPB 11/09/18 06:00 11/16/18 05:59 11/09/18 05:56 Sennosides (Senokot) 8.6 mg BID GT 11/09/18 09:00 12/09/18 08:59 11/09/18 09:09 Valproic Acid (Depakene) 500 mg EVERY 8 HOURS GT 11/09/18 06:00 12/09/18 05:59 11/09/18 06:20 Assessment/Plan Status: stable Assessment/Plan: Assessment: Elevated troponin Hypertension Hepatitis HIV UTI Fever PLAN: -Empiric ABX, follow culture -Trend troponin, likely demand ischemia -Defer further work up -Replete electrolytes -Manage blood pressures -Trach care Eloy Bryson MD Nov 09, 2018 10:48
[2018-11-09 11:00] LABS: ALANINE AMINOTRANSFERASE 110 U/L (12-78); ALBUMIN 1.6 G/DL (3.4-5.0); ALBUMIN/GLOBULIN RATIO 0.3 (1.0-2.7); ALKALINE PHOSPHATASE 222 U/L (46-116); ANION GAP 6 mmol/L (5-15); ASPARTATE AMINO TRANSFERASE 119 U/L (15-37); BILIRUBIN,TOTAL 0.3 MG/DL (0.2-1.0); BLOOD UREA NITROGEN 16 mg/dL (7-18); CALCIUM 8.3 MG/DL (8.5-10.1); CARBON DIOXIDE 32 MMOL/L (21-32); CHLORIDE 100 MMOL/L (98-107); CREATININE 0.4 MG/DL (0.55-1.30); POTASSIUM 3.1 MMOL/L (3.5-5.1); SODIUM 138 MMOL/L (136-145)
--- NOTE | 2018-11-09 11:00 | NUR ---
NURSE NOTES: received report regarding troponin 0.083 from [facility].
--- NOTE | 2018-11-09 11:15 | NUR ---
NURSE NOTES: Dr. Bryson made aware troponin level is trending high from yesterday. no new order at this moment. will keep monitor the pt.
--- NOTE | 2018-11-09 11:52 | NUR ---
RD ASSESSMENT & RECOMMENDATIONS SEE CARE ACTIVITY FOR COMPLETE ASSESSMENT DAILY ESTIMATED NEEDS: Needs based on Critical care, sepsis, wound 60kg adj 22-30 kcals/kg [id number] total kcals 1.25-2 g protein/kg 75-120 g total protein Fluid per MD, on lasix NUTRITION DIAGNOSIS: * Swallowing difficulty r/t respiratory status as evidenced by pt is vent dep via trach and PEG dep. * Increased kcal and pro needs r/t wound healing and sepsis as evidenced by pt w/ sacral and R heel wounds, febrile (Tmax 101.5). CURRENT TF: Jevity 1.2 @50 ml/hr x16 hrs ENTERAL NUTRITION RECOMMENDATIONS: Glucerna 1.2 @65ml/hr x18 hrs + Prosource x1 daily to provide 1170ml, 1404 kcal, 70g pro + 11g pro, 942 free H2O - REC TF CHANGE AND INCREASE TO BETTER MEET EST NEEDS - TF TO BE HELD FOR ONE HR BEFORE AND AFTER DILANTIN MEDS - START @20ML/HR, ADVANCE TOLERATED 15ML/HR Q4-6 HRS TO GOAL - FLUSH PER MD, HOB OVRE 30 DEGREES ADDITIONAL RECOMMENDATIONS: 1) CALIBRATED BED SCALE W/ ADDED P200 MATTRESS + PUMP 2) ON LASIX, MONITOR LYTES AND HYDRATION STATUS DAILY 3) TF TO RUN A MAX OF 18 HRS/DAY W/ DILANTIN TID PER PHARMACY 4) REC TF CHANGE TO CARB CONTROL FORMULA 5) WOUND CARE: ADD CHAYITO BID + VIT C 250MG DAILY
--- NOTE | 2018-11-09 11:53 | Infectious Diseases Prog Note ---
Assessment/Plan Assessment/Plan Full consult to follow: A) 1) uti, sepsis, fevers 2) trach, vent, nava 3) pmh noted 4) allergies - nkda P) 1) zosyn 2) check cultures, labs and chest x-ray 3) thank you Subjective Allergies: Coded Allergies: No Known Allergies (Unverified , 11/08/18) Objective Vital Signs Last 24 Hour Vital Signs Date Time Temp Pulse Resp B/P (MAP) Pulse Ox O2 Delivery O2 Flow Rate FiO2 11/09/18 10:47 97 27 30 11/09/18 09:10 92 155/99 11/09/18 08:52 92 29 30 11/09/18 08:00 30.0 11/09/18 08:00 97.7 91 26 155/99 (117) 100 11/09/18 08:00 Mechanical Ventilator 11/09/18 07:36 92 11/09/18 06:30 94 24 30 11/09/18 06:00 94 101/60 11/09/18 06:00 101/60 11/09/18 05:56 99.8 11/09/18 05:06 100 19 30 11/09/18 04:00 Mechanical Ventilator 11/09/18 04:00 30.0 11/09/18 04:00 100 11/09/18 04:00 99.7 95 23 140/76 (97) 100 11/09/18 03:12 99 11/09/18 03:11 92 20 100 Mechanical Ventilator 30 11/09/18 03:00 101.5 101 23 159/87 (111) 100 11/09/18 03:00 93 26 30 11/09/18 02:56 Endotracheal Tube 11/09/18 02:50 98.4 93 20 117/80 100 Mechanical Ventilator 30 11/09/18 01:30 98.2 92 20 133/73 100 Mechanical Ventilator 30 11/09/18 01:15 91 20 30 11/09/18 00:36 30 11/09/18 00:36 93 26 Mechanical Ventilator 30 11/09/18 00:30 99.4 93 20 150/73 100 Mechanical Ventilator 30 11/08/18 23:31 93 26 30 11/08/18 23:30 99.1 92 26 148/86 100 Mechanical Ventilator 30 11/08/18 23:26 93 26 100 Mechanical Ventilator 30 11/08/18 23:17 100.6 94 18 150/73 (98) 100 Mechanical Ventilator Height (Feet): 5 Height (Inches): 8.00 Weight (Pounds): 174 Microbiology Date/Time Source Procedure Growth Status 11/08/18 23:10 Rectum Received Laboratory Tests Test 11/08/18 23:10 11/09/18 02:05 11/09/18 10:25 White Blood Count 8.2 K/UL (4.8-10.8) 9.5 K/UL (4.8-10.8) Red Blood Count 4.12 M/UL (4.20-5.40) L 4.19 M/UL (4.20-5.40) L Hemoglobin 10.3 G/DL (12.0-16.0) L 10.3 G/DL (12.0-16.0) L Hematocrit 31.2 % (37.0-47.0) L 32.4 % (37.0-47.0) L Mean Corpuscular Volume 76 FL (80-99) L 77 FL (80-99) L Mean Corpuscular Hemoglobin 25.0 PG (27.0-31.0) L 24.7 PG (27.0-31.0) L Mean Corpuscular Hemoglobin Concent 33.0 G/DL (32.0-36.0) 31.9 G/DL (32.0-36.0) L Red Cell Distribution Width 24.8 % (11.6-14.8) H 24.5 % (11.6-14.8) H Platelet Count 254 K/UL (150-450) 306 K/UL (150-450) Mean Platelet Volume 5.9 FL (6.5-10.1) L 5.8 FL (6.5-10.1) L Neutrophils (%) (Auto) 69.6 % (45.0-75.0) 73.8 % (45.0-75.0) Lymphocytes (%) (Auto) 17.3 % (20.0-45.0) L 14.2 % (20.0-45.0) L Monocytes (%) (Auto) 11.0 % (1.0-10.0) H 10.7 % (1.0-10.0) H Eosinophils (%) (Auto) 1.5 % (0.0-3.0) 0.6 % (0.0-3.0) Basophils (%) (Auto) 0.7 % (0.0-2.0) 0.6 % (0.0-2.0) Sodium Level 137 MMOL/L (136-145) 138 MMOL/L (136-145) Potassium Level 3.8 MMOL/L (3.5-5.1) 3.1 MMOL/L (3.5-5.1) L Chloride Level 97 MMOL/L (98-107) L 100 MMOL/L (98-107) Carbon Dioxide Level 35 MMOL/L (21-32) H 32 MMOL/L (21-32) Anion Gap 5 mmol/L (5-15) 6 mmol/L (5-15) Blood Urea Nitrogen 16 mg/dL (7-18) 16 mg/dL (7-18) Creatinine 0.4 MG/DL (0.55-1.30) L 0.4 MG/DL (0.55-1.30) L Estimat Glomerular Filtration Rate mL/min (>60) mL/min (>60) Glucose Level 93 MG/DL (74-106) 142 MG/DL (74-106) H Lactic Acid Level 0.90 mmol/L (0.4-2.0) Calcium Level 8.7 MG/DL (8.5-10.1) 8.3 MG/DL (8.5-10.1) L Total Bilirubin 0.2 MG/DL (0.2-1.0) 0.3 MG/DL (0.2-1.0) Aspartate Amino Transf (AST/SGOT) 138 U/L (15-37) H 119 U/L (15-37) H Alanine Aminotransferase (ALT/SGPT) 119 U/L (12-78) H 110 U/L (12-78) H Alkaline Phosphatase 246 U/L (46-116) H 222 U/L (46-116) H Total Creatine Kinase 103 U/L (26-308) Creatine Kinase MB 1.7 NG/ML (0.0-3.6) Creatine Kinase MB Relative Index 1.6 Troponin I 0.064 ng/mL (0.000-0.056) 0.083 ng/mL (0.000-0.056) Total Protein 6.8 G/DL (6.4-8.2) 6.3 G/DL (6.4-8.2) L Albumin 1.6 G/DL (3.4-5.0) L 1.6 G/DL (3.4-5.0) L Globulin 5.2 g/dL 4.7 g/dL Albumin/Globulin Ratio 0.3 (1.0-2.7) L 0.3 (1.0-2.7) L Urine Color Yellow Urine Appearance Slightly cloudy Urine pH 7 (4.5-8.0) Urine Specific [place] 1.010 (1.005-1.035) Urine Protein 3+ (NEGATIVE) H Urine Glucose (UA) Negative (NEGATIVE) Urine Ketones 1+ (NEGATIVE) H Urine Blood 4+ (NEGATIVE) H Urine Nitrite Negative (NEGATIVE) Urine Bilirubin Negative (NEGATIVE) Urine Urobilinogen 1 MG/DL (0.0-1.0) H Urine Leukocyte Esterase 1+ (NEGATIVE) H Urine RBC 40-60 /HPF (0 - 2) H Urine WBC 2-4 /HPF (0 - 2) Urine Squamous Epithelial Cells Few /LPF (NONE/OCC) Urine Bacteria Moderate /HPF (NONE) H Urine Coarse Granular Casts 5-10 /LPF (NONE) H Hepatitis A IgM Antibody Pending Hepatitis B Surface Antigen Pending Hepatitis B Core IgM Antibody Pending Hepatitis C Antibody Pending HIV (1&2) Antibody Rapid Negative (NEGATIVE) Current Medications Medications (Trade) Dose Ordered Sig/Luep Route PRN Reason Start Time Stop Time Status Last Admin Dose Admin Acetaminophen (Tylenol) 650 mg Q4H PRN GT Mild Pain/Temp > 100.5 11/09/18 05:00 12/09/18 04:59 11/09/18 05:26 Amlodipine Besylate (Norvasc) 10 mg DAILY GT 11/09/18 09:00 12/09/18 08:59 11/09/18 09:10 Bisacodyl (Dulcolax) 10 mg DAILY PRN RECTAL Constipation 11/09/18 05:00 12/09/18 04:59 Calcium Carbonate (Tums) 500 mg EVERY 8 HOURS GT 11/09/18 14:00 12/09/18 08:59 Chlorhexidine Gluconate (Corazon-Hex 2%) 1 applic DAILY@2000 TOPIC 11/09/18 20:00 12/09/18 19:59 Dextrose (Dextrose 50%) 25 ml Q30M PRN IV Hypoglycemia 11/09/18 04:45 12/09/18 04:44 Dextrose (Dextrose 50%) 50 ml Q30M PRN IV Hypoglycemia 11/09/18 04:45 12/09/18 04:44 11/09/18 09:09 Enoxaparin Sodium (Lovenox) 40 mg DAILY SUBQ 11/09/18 09:00 12/09/18 08:59 11/09/18 09:11 Famotidine (Pepcid) 20 mg EVERY 12 HOURS GT 11/09/18 21:00 12/09/18 08:59 Ferrous Sulfate (Feosol) 300 mg EVERY 8 HOURS GT 11/09/18 14:00 12/09/18 08:59 Furosemide (Lasix) 40 mg EVERY 12 HOURS GT 11/09/18 09:00 12/09/18 08:59 11/09/18 09:10 Hydralazine HCl (Apresoline) 5 mg EVERY 8 HOURS GT 11/09/18 06:00 12/09/18 05:59 Insulin Aspart (NovoLOG) Q6HR SUBQ 11/09/18 06:00 12/09/18 05:59 Insulin Detemir (Levemir) 6 units BID SUBQ 11/09/18 09:00 12/09/18 08:59 Ipratropium [place] (Atrovent) 500 mcg Q6H PRN HHN Shortness of Breath 11/09/18 05:00 11/14/18 04:59 Labetalol HCl (Normodyne) 200 mg Q8HR GT 11/09/18 06:00 12/09/18 05:59 Levetiracetam (Keppra) 1,500 mg Q12HR GT 11/09/18 09:00 12/09/18 08:59 11/09/18 09:10 Lorazepam (Ativan 2mg/ml 1ml) 2 mg DAILY PRN IVP For Seizures 11/09/18 05:00 11/16/18 04:59 Magnesium Hydroxide (Mom) 30 ml DAILY PRN GT Constipation 11/09/18 05:00 12/09/18 04:59 Magnesium Oxide (Mag-Ox 400mg) 400 mg EVERY 8 HOURS GT 11/09/18 14:00 12/09/18 08:59 Ondansetron HCl (Zofran) 4 mg Q6H PRN GT Nausea & Vomiting 11/09/18 05:00 12/09/18 04:59 Phenobarbital (PHENobarbital) 60 mg BID GT 11/09/18 09:00 12/09/18 08:59 11/09/18 10:33 Phenytoin (Dilantin) 100 mg Q8HR GT 11/09/18 06:00 12/09/18 05:59 11/09/18 06:18 Piperacillin Sod/ Tazobactam Sod 3.375 gm/Sodium Chloride 110 ml @ 27.5 mls/hr Q8H IVPB 11/09/18 06:00 11/16/18 05:59 11/09/18 05:56 Potassium Chloride (K-Dur) 60 meq ONCE GT 11/09/18 11:45 11/09/18 12:45 Sennosides (Senokot) 8.6 mg EVERY 12 HOURS GT 11/09/18 21:00 12/09/18 08:59 Valproic Acid (Depakene) 500 mg EVERY 8 HOURS GT 11/09/18 06:00 12/09/18 05:59 11/09/18 06:20 Dasha Crews MD Nov 09, 2018 11:53
--- NOTE | 2018-11-09 11:58 | Diagnostic Imaging Report ---
Indication: Chest pain Technique: One view of the chest Comparison: none Findings: There is a left arm PICC, tip which projects deep within the right atrium. There is a tracheostomy. There is right suprahilar atelectasis. There is equivocal mild interstitial congestion, may be an artifact of exposure technique and body habitus Impression: Equivocal mild interstitial congestion. Correlate with clinical findings Right suprahilar atelectasis Other findings as noted, including tracheostomy, left arm PICC
--- NOTE | 2018-11-09 12:36 | Cardiology Report ---
APPROVED REPORT EKG Measurement Heart [id number] IL 140P2 [id number] Normal sinus rhythm Anterior infarct, age undetermined Abnormal ECG
[2018-11-09] MEDS: Ferrous Sulfate 300 MG/5 ML UDC GT SCH ×2 (13:05→21:01)
[2018-11-09] MEDS: Tums 500mg GT SCH ×2 (13:06→21:01)
[2018-11-09] MEDS: Magnesium Oxide 400mg tab GT SCH ×2 (13:06→21:01)
--- NOTE | 2018-11-09 13:45 | Cardiology Report ---
APPROVED REPORT EXAM: Two-dimensional and M-mode echocardiogram with Doppler and color Doppler. INDICATION Cardiac Disease: CAD M-Mode DIMENSIONS IVSd1.3 (0.7-1.1cm)Left Atrium (MM)3.9 (1.6-4.0cm) LVDd3.3 (3.5-5.6cm)Aortic Root2.5 (2.0-3.7cm) PWd1.3 (0.7-1.1cm)Aortic Cusp Exc.1.6 (1.5-2.0cm) IVSs2.1 cm LVDs2.1 (2.5-4.0cm) PWs1.3 cm Normal left ventricular chamber size, systolic function and wall motion. Left ventricular ejection fraction estimated to be 65%. Moderate left ventricular hypertrophy. No evidence of pericardial effusion. All other cardiac chamber sizes are within normal limits. Focal aortic valve sclerosis with adequate cusp excursion. Thickened mitral valve leaflets with normal excursion. Mitral annulus and aortic root calcification. Normal pulmonic valve structure. Normal tricuspid valve structure. IVC at normal size with physiologic collapse. A color flow and spectral Doppler study was performed and revealed: No aortic regurgitation. Mild mitral regurgitation. Mitral diastolic velocities suggest reduced left ventricular relaxation c/w mild LV diastolic dysfunction (Grade I ). Mild tricuspid regurgitation. Tricuspid systolic velocities suggests peak right ventricular systolic pressure of 39 mmHg, consistent with mild pulmonary hypertension. Pulmonic regurgitation present.
--- NOTE | 2018-11-09 14:45 | NUR ---
NURSE NOTES:WOUND CARE NOTES:Pt presented on admission with full thickness sacral pressure injury.Base of wound is 20% necrotic , 80% slough. borders are macerated . Mild odor noted. (L)8.4cm x (W) 6.5cm. Periwound skin tone is darker without erythema,induration or elevation in skin temp. Both heels are non-blanchable and both are fluctuant when palpated. Tx.Plan: Clean wound with saline. Apply Therahoney. Aply Moisture Barrier paste periwound. Cover with Optifoam drsg. Change every 3 days and prn. Apply Cavilon Skin BArrier to both heels. Cover each heel with Optifoam drsg. Change every 7 days and prn. APM/DEIRDRE mattress overlay. Reposition at least every 2hours or as tolerated. Off-load heels with pillow.
[2018-11-09] MEDS ORDERED: Albuterol/Ipratropium 3ml neb HHN PRN (16:15)
--- NOTE | 2018-11-09 16:20 | NUR ---
NURSE NOTES: Patient's daughter at bedside. She stated that patient is allergic to crawfish.
--- NOTE | 2018-11-09 16:24 | Consultation ---
History of Present Illness General Date patient seen: Nov 09, 2018 Time patient seen: 16:11 Chief Complaint: Fever, VDRF Referring physician: Dr. Jennifer Belle Reason for Consultation: VDRF Present Illness HPI 78 F NHR complicated hx, had an elective R HC and ventral hernia repair in September @ [facility] c/b cardiac arrest and anoxic brain injury post-op in the PACU, long ICU stay c/b Sz's ultimately S/P trach and PEG as well as oral/ tongue injury, ultimately transferred to [facility] and then to SNF p/w fevers @ the SNF, w/u remarkable for UTI. Per her daughter and niece @ bedside patient has been on the vent continuously. She is non-verbal and unresponsive. She is in no distress currently. Tm 100.6 VSS x elevated BP FiO2 30, + UTI and trop elevation. Allergies: Coded Allergies: No Known Allergies (Unverified , 11/08/18) Medication History Scheduled Amlodipine Besylate (Norvasc), 10 MG GT DAILY, (Reported) Ascorbate Calcium (Vitamin C), 500 MG GT DAILY, (Reported) Calcium Carbonate (Calcium), 500 MG GT TID, (Reported) Chlorhexidine Gluconate (Peridex), 15 ML MM TID, (Reported) Cranberry Fruit (Cranberry), 450 MG GT DAILY, (Reported) Enoxaparin (Lovenox), 40 MG SUBQ DAILY, (Reported) Famotidine (Famotidine), 20 MG GT TWICE A DAY, (Reported) Ferrous Sulfate (Ferosul), 7.5 ML GT DAILY, (Reported) Furosemide (Furosemide), 40 MG GT BID, (Reported) Hydralazine Hcl* (Hydralazine Hcl*), 5 MG GT EVERY 8 HOURS, (Reported) Insulin Glargine (Lantus), 6 UNITS SUBQ BID, (Reported) Labetalol HCl (Labetalol HCl), 200 MG GT Q8HR, (Reported) Levetiracetam (Keppra), 15 ML GT Q12HR, (Reported) Magnesium Oxide (Magnesium Oxide), 400 MG GT TID, (Reported) Multivitamin with Minerals (Multivitamins with Minerals), 1 TAB GT DAILY, ( Reported) Phenobarbital* (Phenobarbital*), 60 MG GT BID, (Reported) Phenytoin (Dilantin-125), 100 MG GT Q8HR, (Reported) Psyllium Seed/Aspartame (Natural Fiber Powder), 5 ML GT DAILY, (Reported) Sennosides (Senna), 8.6 MG GT Q12H, (Reported) Valproate Sodium (Valproate Sodium), 500 MG GT Q8HR, (Reported) Scheduled PRN Acetaminophen* (Acetaminophen 325MG Tablet*), 650 MG GT Q4H PRN for Mild Pain/ Temp > 100.5, (Reported) Bisacodyl (Dulcolax), 10 MG RC DAILY PRN for Constipation, (Reported) Ipratropium Luna 0.5MG/2.5ML (Ipratropium Luna 0.5MG/2.5ML), 3 MG HHN Q2H PRN for Shortness of Breath, (Reported) Ipratropium Luna 0.5MG/2.5ML (Ipratropium Luna 0.5MG/2.5ML), 3 MG HHN Q6H PRN for Shortness of Breath, (Reported) Lorazepam* (Ativan*), 2 MG SL DAILY PRN for For Seizures, (Reported) Magnesium Hydroxide* (Milk Of Magnesia*), 30 ML GT DAILY PRN for Constipation, ( Reported) Ondansetron (Zofran), 4 MG GT Q6H PRN for Nausea & Vomiting, (Reported) Miscellaneous Medications Insulin Lispro (Humalog), 0 SUBQ, (Reported) Patient History Limited by: medical condition History Provided By: Family Member, Medical Record Healthcare decision maker Resuscitation status Full Code Advanced Directive on File No Past Medical/Surgical History Past Medical/Surgical History: (1) Diabetes (2) HTN (hypertension) (3) Seizure disorder (4) Tongue abnormality (5) Colon adenocarcinoma (6) Anoxic brain damage (7) Gastrostomy in place (8) Tracheostomy dependence (9) Ventilator dependence Social History Social History: (1) [facility] resident Review of Systems ROS Narrative UNOBTAINABLE Physical Exam General Appearance: other - non-verbal, trach, PEG Lines, tubes and drains: peripheral HEENT: normocephalic, atraumatic, anicteric, mucous membranes moist, other - tongue and lip edema with vesicular lip lesion Neck: non-tender, normal alignment, supple, trach Respiratory/Chest: chest wall non-tender, no respiratory distress, rhonchi - bilaterally Cardiovascular/Chest: normal peripheral pulses, normal rate, regular rhythm Abdomen: normal bowel sounds, non tender, soft, no organomegaly, no mass, feeding tube Extremities: no edema, no cyanosis, other - contracted Last 24 Hour Vital Signs Date Time Temp Pulse Resp B/P (MAP) Pulse Ox O2 Delivery O2 Flow Rate FiO2 11/09/18 14:39 87 24 30 11/09/18 13:06 99 158/98 11/09/18 13:06 158/98 11/09/18 12:45 99 25 30 11/09/18 12:06 98.2 97 27 158/98 (118) 100 11/09/18 12:00 Mechanical Ventilator 11/09/18 12:00 97 11/09/18 12:00 30.0 11/09/18 10:47 97 27 30 11/09/18 09:10 92 155/99 11/09/18 08:52 92 29 30 11/09/18 08:00 30.0 11/09/18 08:00 97.7 91 26 155/99 (117) 100 11/09/18 08:00 Mechanical Ventilator 11/09/18 07:36 92 11/09/18 06:30 94 24 30 11/09/18 06:00 94 101/60 11/09/18 06:00 101/60 11/09/18 05:56 99.8 11/09/18 05:06 100 19 30 11/09/18 04:00 Mechanical Ventilator 11/09/18 04:00 30.0 11/09/18 04:00 100 11/09/18 04:00 99.7 95 23 140/76 (97) 100 11/09/18 03:12 99 11/09/18 03:11 92 20 100 Mechanical Ventilator 30 11/09/18 03:00 101.5 101 23 159/87 (111) 100 11/09/18 03:00 93 26 30 11/09/18 02:56 Endotracheal Tube 11/09/18 02:50 98.4 93 20 117/80 100 Mechanical Ventilator 30 11/09/18 01:30 98.2 92 20 133/73 100 Mechanical Ventilator 30 11/09/18 01:15 91 20 30 11/09/18 00:36 30 11/09/18 00:36 93 26 Mechanical Ventilator 30 11/09/18 00:30 99.4 93 20 150/73 100 Mechanical Ventilator 30 11/08/18 23:31 93 26 30 11/08/18 23:30 99.1 92 26 148/86 100 Mechanical Ventilator 30 11/08/18 23:26 93 26 100 Mechanical Ventilator 30 11/08/18 23:17 100.6 94 18 150/73 (98) 100 Mechanical Ventilator Intake and Output 11/08/18 11/09/18 19:00 07:00 Intake Total 565 ml Balance 565 ml Intake IV Total 565 ml # Voids 100 Laboratory Tests Test 11/08/18 23:10 11/09/18 02:05 11/09/18 10:25 White Blood Count 8.2 K/UL (4.8-10.8) 9.5 K/UL (4.8-10.8) Red Blood Count 4.12 M/UL (4.20-5.40) L 4.19 M/UL (4.20-5.40) L Hemoglobin 10.3 G/DL (12.0-16.0) L 10.3 G/DL (12.0-16.0) L Hematocrit 31.2 % (37.0-47.0) L 32.4 % (37.0-47.0) L Mean Corpuscular Volume 76 FL (80-99) L 77 FL (80-99) L Mean Corpuscular Hemoglobin 25.0 PG (27.0-31.0) L 24.7 PG (27.0-31.0) L Mean Corpuscular Hemoglobin Concent 33.0 G/DL (32.0-36.0) 31.9 G/DL (32.0-36.0) L Red Cell Distribution Width 24.8 % (11.6-14.8) H 24.5 % (11.6-14.8) H Platelet Count 254 K/UL (150-450) 306 K/UL (150-450) Mean Platelet Volume 5.9 FL (6.5-10.1) L 5.8 FL (6.5-10.1) L Neutrophils (%) (Auto) 69.6 % (45.0-75.0) 73.8 % (45.0-75.0) Lymphocytes (%) (Auto) 17.3 % (20.0-45.0) L 14.2 % (20.0-45.0) L Monocytes (%) (Auto) 11.0 % (1.0-10.0) H 10.7 % (1.0-10.0) H Eosinophils (%) (Auto) 1.5 % (0.0-3.0) 0.6 % (0.0-3.0) Basophils (%) (Auto) 0.7 % (0.0-2.0) 0.6 % (0.0-2.0) Sodium Level 137 MMOL/L (136-145) 138 MMOL/L (136-145) Potassium Level 3.8 MMOL/L (3.5-5.1) 3.1 MMOL/L (3.5-5.1) L Chloride Level 97 MMOL/L (98-107) L 100 MMOL/L (98-107) Carbon Dioxide Level 35 MMOL/L (21-32) H 32 MMOL/L (21-32) Anion Gap 5 mmol/L (5-15) 6 mmol/L (5-15) Blood Urea Nitrogen 16 mg/dL (7-18) 16 mg/dL (7-18) Creatinine 0.4 MG/DL (0.55-1.30) L 0.4 MG/DL (0.55-1.30) L Estimat Glomerular Filtration Rate mL/min (>60) mL/min (>60) Glucose Level 93 MG/DL (74-106) 142 MG/DL (74-106) H Lactic Acid Level 0.90 mmol/L (0.4-2.0) Calcium Level 8.7 MG/DL (8.5-10.1) 8.3 MG/DL (8.5-10.1) L Total Bilirubin 0.2 MG/DL (0.2-1.0) 0.3 MG/DL (0.2-1.0) Aspartate Amino Transf (AST/SGOT) 138 U/L (15-37) H 119 U/L (15-37) H Alanine Aminotransferase (ALT/SGPT) 119 U/L (12-78) H 110 U/L (12-78) H Alkaline Phosphatase 246 U/L (46-116) H 222 U/L (46-116) H Total Creatine Kinase 103 U/L (26-308) Creatine Kinase MB 1.7 NG/ML (0.0-3.6) Creatine Kinase MB Relative Index 1.6 Troponin I 0.064 ng/mL (0.000-0.056) 0.083 ng/mL (0.000-0.056) Total Protein 6.8 G/DL (6.4-8.2) 6.3 G/DL (6.4-8.2) L Albumin 1.6 G/DL (3.4-5.0) L 1.6 G/DL (3.4-5.0) L Globulin 5.2 g/dL 4.7 g/dL Albumin/Globulin Ratio 0.3 (1.0-2.7) L 0.3 (1.0-2.7) L Urine Color Yellow Urine Appearance Slightly cloudy Urine pH 7 (4.5-8.0) Urine Specific [place] 1.010 (1.005-1.035) Urine Protein 3+ (NEGATIVE) H Urine Glucose (UA) Negative (NEGATIVE) Urine Ketones 1+ (NEGATIVE) H Urine Blood 4+ (NEGATIVE) H Urine Nitrite Negative (NEGATIVE) Urine Bilirubin Negative (NEGATIVE) Urine Urobilinogen 1 MG/DL (0.0-1.0) H Urine Leukocyte Esterase 1+ (NEGATIVE) H Urine RBC 40-60 /HPF (0 - 2) H Urine WBC 2-4 /HPF (0 - 2) Urine Squamous Epithelial Cells Few /LPF (NONE/OCC) Urine Bacteria Moderate /HPF (NONE) H Urine Coarse Granular Casts 5-10 /LPF (NONE) H Hepatitis A IgM Antibody Pending Hepatitis B Surface Antigen Pending Hepatitis B Core IgM Antibody Pending Hepatitis C Antibody Pending HIV (1&2) Antibody Rapid Negative (NEGATIVE) Microbiology Date/Time Source Procedure Growth Status 11/09/18 05:38 Sputum Induced Gram Stain - Final Resulted 11/09/18 05:38 Sputum Induced Sputum Culture Pending Resulted 11/08/18 23:10 Rectum Received Height (Feet): 5 Height (Inches): 8.00 Weight (Pounds): 174 Medications Current Medications Medications (Trade) Dose Ordered Sig/Lupe Route PRN Reason Start Time Stop Time Status Last Admin Dose Admin Acetaminophen (Tylenol) 650 mg Q4H PRN GT Mild Pain/Temp > 100.5 11/09/18 05:00 12/09/18 04:59 11/09/18 05:26 Amlodipine Besylate (Norvasc) 10 mg DAILY GT 11/09/18 09:00 12/09/18 08:59 11/09/18 09:10 Bisacodyl (Dulcolax) 10 mg DAILY PRN RECTAL Constipation 11/09/18 05:00 12/09/18 04:59 Calcium Carbonate (Tums) 500 mg EVERY 8 HOURS GT 11/09/18 14:00 12/09/18 08:59 11/09/18 13:06 Chlorhexidine Gluconate (Corazon-Hex 2%) 1 applic DAILY@199911/09/18 20:00 12/09/18 19:59 Dextrose (Dextrose 50%) 25 ml Q30M PRN IV Hypoglycemia 11/09/18 04:45 12/09/18 04:44 Dextrose (Dextrose 50%) 50 ml Q30M PRN IV Hypoglycemia 11/09/18 04:45 12/09/18 04:44 11/09/18 09:09 Enoxaparin Sodium (Lovenox) 40 mg DAILY SUBQ 11/09/18 09:00 12/09/18 08:59 11/09/18 09:11 Famotidine (Pepcid) 20 mg EVERY 12 HOURS GT 11/09/18 21:00 12/09/18 08:59 Ferrous Sulfate (Feosol) 300 mg EVERY 8 HOURS GT 11/09/18 14:00 12/09/18 08:59 11/09/18 13:05 Furosemide (Lasix) 40 mg EVERY 12 HOURS GT 11/09/18 09:00 12/09/18 08:59 11/09/18 09:10 Hydralazine HCl (Apresoline) 5 mg EVERY 8 HOURS GT 11/09/18 06:00 12/09/18 05:59 11/09/18 13:06 Insulin Aspart (NovoLOG) Q6HR SUBQ 11/09/18 06:00 12/09/18 05:59 Insulin Detemir (Levemir) 6 units BID SUBQ 11/09/18 09:00 12/09/18 08:59 Ipratropium Luna (Atrovent) 500 mcg Q6H PRN HHN Shortness of Breath 11/09/18 05:00 11/14/18 04:59 Labetalol HCl (Normodyne) 200 mg Q8HR GT 11/09/18 06:00 12/09/18 05:59 11/09/18 13:06 Levetiracetam (Keppra) 1,500 mg Q12HR GT 11/09/18 09:00 12/09/18 08:59 11/09/18 09:10 Lorazepam (Ativan 2mg/ml 1ml) 2 mg DAILY PRN IVP For Seizures 11/09/18 05:00 11/16/18 04:59 Magnesium Hydroxide (Mom) 30 ml DAILY PRN GT Constipation 11/09/18 05:00 12/09/18 04:59 Magnesium Oxide (Mag-Ox 400mg) 400 mg EVERY 8 HOURS GT 11/09/18 14:00 12/09/18 08:59 11/09/18 13:06 Ondansetron HCl (Zofran) 4 mg Q6H PRN GT Nausea & Vomiting 11/09/18 05:00 12/09/18 04:59 Phenobarbital (PHENobarbital) 60 mg BID GT 11/09/18 09:00 12/09/18 08:59 11/09/18 10:33 Phenytoin (Dilantin) 100 mg Q8HR GT 11/09/18 06:00 12/09/18 05:59 11/09/18 13:05 Piperacillin Sod/ Tazobactam Sod 3.375 gm/Sodium Chloride 110 ml @ 27.5 mls/hr Q8H IVPB 11/09/18 06:00 11/16/18 05:59 11/09/18 14:05 Sennosides (Senokot) 8.6 mg EVERY 12 HOURS GT 11/09/18 21:00 12/09/18 08:59 Valproic Acid (Depakene) 500 mg EVERY 8 HOURS GT 11/09/18 06:00 12/09/18 05:59 11/09/18 13:06 Assessment/Plan Problem List: (1) Ventilator dependence ICD Codes: Z99.11 - Dependence on respirator [ventilator] status SNOMED: 652854312 (2) Tracheostomy dependence ICD Codes: Z93.0 - Tracheostomy status SNOMED: 856452885 (3) UTI (urinary tract infection) ICD Codes: N39.0 - Urinary tract infection, site not specified SNOMED: 43719770 (4) Fever ICD Codes: R50.9 - Fever, unspecified SNOMED: 894819539 (5) Anoxic brain damage ICD Codes: G93.1 - Anoxic brain damage, not elsewhere classified SNOMED: 446615786 (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 SNOMED: 63646137 (7) Seizure disorder ICD Codes: G40.909 - Epilepsy, unspecified, not intractable, without status epilepticus SNOMED: 329819433 (8) Colon adenocarcinoma ICD Codes: C18.9 - Malignant neoplasm of colon, unspecified SNOMED: 667040520 (9) HTN (hypertension) ICD Codes: I10 - Essential (primary) hypertension SNOMED: 05309007 (10) Sepsis ICD Codes: A41.9 - Sepsis, unspecified organism SNOMED: 47047759 (11) Diabetes ICD Codes: E11.9 - Type 2 diabetes mellitus without complications SNOMED: 75112824 Assessment/Plan: Continue ventilatory support/settings reviewed ABG Will attempt to wean if able Titrate down FiO2 to keep SaO2 > 90% Optimize pulmonary hygiene/mobilize as tolerated RTC and PRN HHN's Abx (Zosyn) per ID, F/U Cx's Trend ECG/trop, F/U cards recs, F/U final TTE Monitor volumes and renal function, PRN IVF DVT Px: LMWH FC, continue to discuss GOC Wound care Balbir Dejesus MD Nov 09, 2018 16:24
--- NOTE | 2018-11-09 16:29 | NUR ---
HAND-OFF: Report given to Jani Romero RN.
--- NOTE | 2018-11-09 16:35 | Diagnostic Imaging Report ---
Indication: Abdominal pain Technique: Mclain-scale and duplex images of the upper abdomen were obtained Comparison: Findings: Gallbladder demonstrates a 6 mm nondependent wall adherent nonshadowing echogenic lesion, and a 6 mm posterior similar lesion. No definite calculi. No gallbladder wall thickening. No pericholecystic fluid sonographic Elam's cannot be assessed Common bile duct measures 8 mm in diameter. No intrahepatic biliary ductal dilatation. Liver demonstrates normal echogenicity, no focal abnormality. It is borderline enlarged. Portal vein and hepatic veins are patent. Pancreas is unremarkable. Spleen is unremarkable. Left kidney measures 11 cm in length. Right kidney measures 11.3 cm length. Both kidneys demonstrate normal echogenicity. There is no hydronephrosis. There are small parapelvic cysts bilaterally. Abdominal aorta is partially obscured by bowel gas, visualized portions are non-aneurysmal . Impression: Gallbladder polyps Negative for gallstones Mildly ectatic common bile duct. Probably related to patient's age, downstream obstructive lesion at completely excludable. Recommend correlation with liver function tests Borderline hepatomegaly Incidental finding bilateral renal parapelvic cysts Note inability to visualized portions of the abdominal aorta
--- NOTE | 2018-11-09 17:33 | Consultation ---
History of Present Illness General Date patient seen: Nov 09, 2018 Chief Complaint: Fever Referring physician: Dr. Jennifer Belle Reason for Consultation: VDRF Present Illness HPI This is a very unfortunate 78-year-old female with multiple medical comorbidities who is had prior cardiac arrest and is currently with tracheostomy vent dependent and PEG tube feed dependent. Patient admitted for fevers leukocytosis abnormal labs currently in the stepdown unit undergoing medical work-up and care. On admission patient noted to have abnormal labs, treating tongue with concerns for injury, surgery called to evaluate and assist with care. Patient seen, patient [place], chart reviewed. Patient nonverbal and unable to during examination the patient's family are at the bedside and able to give history Allergies: Uncoded Allergies: Crawfish (Allergy, Unknown, 11/09/18) Medication History Scheduled Amlodipine Besylate (Norvasc), 10 MG GT DAILY, (Reported) Ascorbate Calcium (Vitamin C), 500 MG GT DAILY, (Reported) Calcium Carbonate (Calcium), 500 MG GT TID, (Reported) Chlorhexidine Gluconate (Peridex), 15 ML MM TID, (Reported) Cranberry Fruit (Cranberry), 450 MG GT DAILY, (Reported) Enoxaparin (Lovenox), 40 MG SUBQ DAILY, (Reported) Famotidine (Famotidine), 20 MG GT TWICE A DAY, (Reported) Ferrous Sulfate (Ferosul), 7.5 ML GT DAILY, (Reported) Furosemide (Furosemide), 40 MG GT BID, (Reported) Hydralazine Hcl* (Hydralazine Hcl*), 5 MG GT EVERY 8 HOURS, (Reported) Insulin Glargine (Lantus), 6 UNITS SUBQ BID, (Reported) Labetalol HCl (Labetalol HCl), 200 MG GT Q8HR, (Reported) Levetiracetam (Keppra), 15 ML GT Q12HR, (Reported) Magnesium Oxide (Magnesium Oxide), 400 MG GT TID, (Reported) Multivitamin with Minerals (Multivitamins with Minerals), 1 TAB GT DAILY, ( Reported) Phenobarbital* (Phenobarbital*), 60 MG GT BID, (Reported) Phenytoin (Dilantin-125), 100 MG GT Q8HR, (Reported) Psyllium Seed/Aspartame (Natural Fiber Powder), 5 ML GT DAILY, (Reported) Sennosides (Senna), 8.6 MG GT Q12H, (Reported) Valproate Sodium (Valproate Sodium), 500 MG GT Q8HR, (Reported) Scheduled PRN Acetaminophen* (Acetaminophen 325MG Tablet*), 650 MG GT Q4H PRN for Mild Pain/ Temp > 100.5, (Reported) Bisacodyl (Dulcolax), 10 MG RC DAILY PRN for Constipation, (Reported) Ipratropium Hosmer 0.5MG/2.5ML (Ipratropium Hosmer 0.5MG/2.5ML), 3 MG HHN Q2H PRN for Shortness of Breath, (Reported) Ipratropium Hosmer 0.5MG/2.5ML (Ipratropium Hosmer 0.5MG/2.5ML), 3 MG HHN Q6H PRN for Shortness of Breath, (Reported) Lorazepam* (Ativan*), 2 MG SL DAILY PRN for For Seizures, (Reported) Magnesium Hydroxide* (Milk Of Magnesia*), 30 ML GT DAILY PRN for Constipation, ( Reported) Ondansetron (Zofran), 4 MG GT Q6H PRN for Nausea & Vomiting, (Reported) Miscellaneous Medications Insulin Lispro (Humalog), 0 SUBQ, (Reported) Patient History Limited by: medical condition History Provided By: Family Member, Medical Record, PMD Healthcare decision maker Resuscitation status Full Code Advanced Directive on File No Past Medical/Surgical History Past Medical/Surgical History: (1) Fever (2) Diabetes (3) Seizure disorder (4) HTN (hypertension) (5) Tongue abnormality (6) Anoxic brain damage (7) Colon adenocarcinoma (8) Ventilator dependence (9) Tracheostomy dependence (10) Fever (11) Sepsis (12) UTI (urinary tract infection) Review of Systems ROS Narrative unable to obtain Physical Exam General Appearance: no apparent distress Lines, tubes and drains: peripheral HEENT: mucous membranes moist Neck: trach Respiratory/Chest: on vent Cardiovascular/Chest: normal rate Abdomen: soft, no organomegaly, feeding tube Extremities: other Neurologic: unresponsiveness Last 24 Hour Vital Signs Date Time Temp Pulse Resp B/P (MAP) Pulse Ox O2 Delivery O2 Flow Rate FiO2 11/09/18 17:10 98 17 30 11/09/18 14:39 87 24 30 11/09/18 13:06 99 158/98 11/09/18 13:06 158/98 11/09/18 12:45 99 25 30 11/09/18 12:06 98.2 97 27 158/98 (118) 100 11/09/18 12:00 Mechanical Ventilator 11/09/18 12:00 97 11/09/18 12:00 30.0 11/09/18 10:47 97 27 30 11/09/18 09:10 92 155/99 11/09/18 08:52 92 29 30 11/09/18 08:00 30.0 11/09/18 08:00 97.7 91 26 155/99 (117) 100 11/09/18 08:00 Mechanical Ventilator 11/09/18 07:36 92 11/09/18 06:30 94 24 30 11/09/18 06:00 94 101/60 11/09/18 06:00 101/60 11/09/18 05:56 99.8 11/09/18 05:06 100 19 30 11/09/18 04:00 Mechanical Ventilator 11/09/18 04:00 30.0 11/09/18 04:00 100 11/09/18 04:00 99.7 95 23 140/76 (97) 100 11/09/18 03:12 99 11/09/18 03:11 92 20 100 Mechanical Ventilator 30 11/09/18 03:00 101.5 101 23 159/87 (111) 100 11/09/18 03:00 93 26 30 11/09/18 02:56 Endotracheal Tube 11/09/18 02:50 98.4 93 20 117/80 100 Mechanical Ventilator 30 11/09/18 01:30 98.2 92 20 133/73 100 Mechanical Ventilator 30 11/09/18 01:15 91 20 30 11/09/18 00:36 30 11/09/18 00:36 93 26 Mechanical Ventilator 30 11/09/18 00:30 99.4 93 20 150/73 100 Mechanical Ventilator 30 11/08/18 23:31 93 26 30 11/08/18 23:30 99.1 92 26 148/86 100 Mechanical Ventilator 30 11/08/18 23:26 93 26 100 Mechanical Ventilator 30 11/08/18 23:17 100.6 94 18 150/73 (98) 100 Mechanical Ventilator Intake and Output 8/21/19 8/22/19 19:00 07:00 Intake Total 565 ml Balance 565 ml Intake IV Total 565 ml # Voids 100 Laboratory Tests Test 11/08/18 23:10 11/09/18 02:05 11/09/18 10:25 11/09/18 16:00 White Blood Count 8.2 K/UL (4.8-10.8) 9.5 K/UL (4.8-10.8) Red Blood Count 4.12 M/UL (4.20-5.40) L 4.19 M/UL (4.20-5.40) L Hemoglobin 10.3 G/DL (12.0-16.0) L 10.3 G/DL (12.0-16.0) L Hematocrit 31.2 % (37.0-47.0) L 32.4 % (37.0-47.0) L Mean Corpuscular Volume 76 FL (80-99) L 77 FL (80-99) L Mean Corpuscular Hemoglobin 25.0 PG (27.0-31.0) L 24.7 PG (27.0-31.0) L Mean Corpuscular Hemoglobin Concent 33.0 G/DL (32.0-36.0) 31.9 G/DL (32.0-36.0) L Red Cell Distribution Width 24.8 % (11.6-14.8) H 24.5 % (11.6-14.8) H Platelet Count 254 K/UL (150-450) 306 K/UL (150-450) Mean Platelet Volume 5.9 FL (6.5-10.1) L 5.8 FL (6.5-10.1) L Neutrophils (%) (Auto) 69.6 % (45.0-75.0) 73.8 % (45.0-75.0) Lymphocytes (%) (Auto) 17.3 % (20.0-45.0) L 14.2 % (20.0-45.0) L Monocytes (%) (Auto) 11.0 % (1.0-10.0) H 10.7 % (1.0-10.0) H Eosinophils (%) (Auto) 1.5 % (0.0-3.0) 0.6 % (0.0-3.0) Basophils (%) (Auto) 0.7 % (0.0-2.0) 0.6 % (0.0-2.0) Sodium Level 137 MMOL/L (136-145) 138 MMOL/L (136-145) Potassium Level 3.8 MMOL/L (3.5-5.1) 3.1 MMOL/L (3.5-5.1) L Chloride Level 97 MMOL/L (98-107) L 100 MMOL/L (98-107) Carbon Dioxide Level 35 MMOL/L (21-32) H 32 MMOL/L (21-32) Anion Gap 5 mmol/L (5-15) 6 mmol/L (5-15) Blood Urea Nitrogen 16 mg/dL (7-18) 16 mg/dL (7-18) Creatinine 0.4 MG/DL (0.55-1.30) L 0.4 MG/DL (0.55-1.30) L Estimat Glomerular Filtration Rate mL/min (>60) mL/min (>60) Glucose Level 93 MG/DL (74-106) 142 MG/DL (74-106) H Lactic Acid Level 0.90 mmol/L (0.4-2.0) Calcium Level 8.7 MG/DL (8.5-10.1) 8.3 MG/DL (8.5-10.1) L Total Bilirubin 0.2 MG/DL (0.2-1.0) 0.3 MG/DL (0.2-1.0) Aspartate Amino Transf (AST/SGOT) 138 U/L (15-37) H 119 U/L (15-37) H Alanine Aminotransferase (ALT/SGPT) 119 U/L (12-78) H 110 U/L (12-78) H Alkaline Phosphatase 246 U/L (46-116) H 222 U/L (46-116) H Total Creatine Kinase 103 U/L (26-308) Creatine Kinase MB 1.7 NG/ML (0.0-3.6) Creatine Kinase MB Relative Index 1.6 Troponin I 0.064 ng/mL (0.000-0.056) 0.083 ng/mL (0.000-0.056) 0.082 ng/mL (0.000-0.056) Total Protein 6.8 G/DL (6.4-8.2) 6.3 G/DL (6.4-8.2) L Albumin 1.6 G/DL (3.4-5.0) L 1.6 G/DL (3.4-5.0) L Globulin 5.2 g/dL 4.7 g/dL Albumin/Globulin Ratio 0.3 (1.0-2.7) L 0.3 (1.0-2.7) L Urine Color Yellow Urine Appearance Slightly cloudy Urine pH 7 (4.5-8.0) Urine Specific [place] 1.010 (1.005-1.035) Urine Protein 3+ (NEGATIVE) H Urine Glucose (UA) Negative (NEGATIVE) Urine Ketones 1+ (NEGATIVE) H Urine Blood 4+ (NEGATIVE) H Urine Nitrite Negative (NEGATIVE) Urine Bilirubin Negative (NEGATIVE) Urine Urobilinogen 1 MG/DL (0.0-1.0) H Urine Leukocyte Esterase 1+ (NEGATIVE) H Urine RBC 40-60 /HPF (0 - 2) H Urine WBC 2-4 /HPF (0 - 2) Urine Squamous Epithelial Cells Few /LPF (NONE/OCC) Urine Bacteria Moderate /HPF (NONE) H Urine Coarse Granular Casts 5-10 /LPF (NONE) H Hepatitis A IgM Antibody Pending Hepatitis B Surface Antigen Pending Hepatitis B Core IgM Antibody Pending Hepatitis C Antibody Pending HIV (1&2) Antibody Rapid Negative (NEGATIVE) Microbiology Date/Time Source Procedure Growth Status 11/09/18 05:38 Sputum Induced Gram Stain - Final Resulted 11/09/18 05:38 Sputum Induced Sputum Culture Pending Resulted 11/08/18 23:10 Rectum Received Height (Feet): 5 Height (Inches): 8.00 Weight (Pounds): 174 Medications Current Medications Medications (Trade) Dose Ordered Sig/Lupe Route PRN Reason Start Time Stop Time Status Last Admin Dose Admin Acetaminophen (Tylenol) 650 mg Q4H PRN GT Mild Pain/Temp > 100.5 11/09/18 05:00 12/09/18 04:59 11/09/18 05:26 Albuterol/ Ipratropium (Albuterol/ Ipratropium) 3 ml Q4H PRN HHN Shortness of Breath 11/09/18 16:15 11/14/18 16:14 Albuterol/ Ipratropium (Albuterol/ Ipratropium) 3 ml Q6HRT HHN 11/09/18 19:00 11/14/18 18:59 Amlodipine Besylate (Norvasc) 10 mg DAILY GT 11/09/18 09:00 12/09/18 08:59 11/09/18 09:10 Bisacodyl (Dulcolax) 10 mg DAILY PRN RECTAL Constipation 11/09/18 05:00 12/09/18 04:59 Calcium Carbonate (Tums) 500 mg EVERY 8 HOURS GT 11/09/18 14:00 12/09/18 08:59 11/09/18 13:06 Chlorhexidine Gluconate (Corazon-Hex 2%) 1 applic DAILY@2000 TOPIC 11/09/18 20:00 12/09/18 19:59 Dextrose (Dextrose 50%) 25 ml Q30M PRN IV Hypoglycemia 11/09/18 04:45 12/09/18 04:44 Dextrose (Dextrose 50%) 50 ml Q30M PRN IV Hypoglycemia 11/09/18 04:45 12/09/18 04:44 11/09/18 09:09 Enoxaparin Sodium (Lovenox) 40 mg DAILY SUBQ 11/09/18 09:00 12/09/18 08:59 11/09/18 09:11 Famotidine (Pepcid) 20 mg EVERY 12 HOURS GT 11/09/18 21:00 12/09/18 08:59 Ferrous Sulfate (Feosol) 300 mg EVERY 8 HOURS GT 11/09/18 14:00 12/09/18 08:59 11/09/18 13:05 Furosemide (Lasix) 40 mg EVERY 12 HOURS GT 11/09/18 09:00 12/09/18 08:59 11/09/18 09:10 Hydralazine HCl (Apresoline) 5 mg EVERY 8 HOURS GT 11/09/18 06:00 12/09/18 05:59 11/09/18 13:06 Insulin Aspart (NovoLOG) Q6HR SUBQ 11/09/18 06:00 12/09/18 05:59 Insulin Detemir (Levemir) 6 units BID SUBQ 11/09/18 09:00 12/09/18 08:59 Labetalol HCl (Normodyne) 200 mg Q8HR GT 11/09/18 06:00 12/09/18 05:59 11/09/18 13:06 Levetiracetam (Keppra) 1,500 mg Q12HR GT 11/09/18 09:00 12/09/18 08:59 11/09/18 09:10 Lorazepam (Ativan 2mg/ml 1ml) 2 mg DAILY PRN IVP For Seizures 11/09/18 05:00 11/16/18 04:59 Magnesium Hydroxide (Mom) 30 ml DAILY PRN GT Constipation 11/09/18 05:00 12/09/18 04:59 Magnesium Oxide (Mag-Ox 400mg) 400 mg EVERY 8 HOURS GT 11/09/18 14:00 12/09/18 08:59 11/09/18 13:06 Ondansetron HCl (Zofran) 4 mg Q6H PRN GT Nausea & Vomiting 11/09/18 05:00 12/09/18 04:59 Phenobarbital (PHENobarbital) 60 mg BID GT 11/09/18 09:00 12/09/18 08:59 11/09/18 10:33 Phenytoin (Dilantin) 100 mg Q8HR GT 11/09/18 06:00 12/09/18 05:59 11/09/18 13:05 Piperacillin Sod/ Tazobactam Sod 3.375 gm/Sodium Chloride 110 ml @ 27.5 mls/hr Q8H IVPB 11/09/18 06:00 11/16/18 05:59 11/09/18 14:05 Sennosides (Senokot) 8.6 mg EVERY 12 HOURS GT 11/09/18 21:00 12/09/18 08:59 Valproic Acid (Depakene) 500 mg EVERY 8 HOURS GT 11/09/18 06:00 12/09/18 05:59 11/09/18 13:06 Assessment/Plan Problem List: (1) Fever ICD Codes: R50.9 - Fever, unspecified SNOMED: 751863852 (2) Tongue abnormality Assessment & Plan: patients jaw clenched closed and tongue has been stuck for some time. tongue split from middle teeth and now in two. edema and unable to reduce keep tongue moist. apply lube jelly prn dryness. 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 * Increased kcal and pro needs r/t wound healing and sepsis as evidenced by pt w/ sacral and R heel wounds, febrile (Tmax 101.5). CURRENT TF: Jevity 1.2 @50 ml/hr x16 hrs ENTERAL NUTRITION RECOMMENDATIONS: Glucerna 1.2 @65ml/hr x18 hrs + Prosource x1 daily to provide 1170ml, 1404 kcal, 70g pro + 11g pro, 942 free H2O - REC TF CHANGE AND INCREASE TO BETTER MEET EST NEEDS - TF TO BE HELD FOR ONE HR BEFORE AND AFTER DILANTIN MEDS - START @20ML/HR, ADVANCE TOLERATED 15ML/HR Q4-6 HRS TO GOAL - FLUSH PER MD, HOB OVRE 30 DEGREES ADDITIONAL RECOMMENDATIONS: 1) CALIBRATED BED SCALE W/ ADDED P200 MATTRESS + PUMP 2) ON LASIX, MONITOR LYTES AND HYDRATION STATUS DAILY 3) TF TO RUN A MAX OF 18 HRS/DAY W/ DILANTIN TID PER PHARMACY 4) REC TF CHANGE TO CARB CONTROL FORMULA 5) WOUND CARE: ADD CHAYITO BID + VIT C 250MG DAILY ICD Codes: A41.9 - Sepsis, unspecified organism SNOMED: 34506066 (5) Fever ICD Codes: R50.9 - Fever, unspecified SNOMED: 257145465 (6) Decubitus skin ulcer Assessment & Plan: Patient presented with a stage 4 full thickness sacral decubitus ulcer. no odor. no drainage. some sloth and necrotic tissue but does have some granulation tissue. periwound breakdown wash wound daily with NS apply hydrogel and foam dressing turn q2h off load pressure heel protectors pillow under legs air mattress will follow with recs thank you ICD Codes: L89.90 - Pressure ulcer of unspecified site, unspecified stage SNOMED: 095530519 Preet Hylton Nov 09, 2018 17:33
--- NOTE | 2018-11-09 18:02 | NUR ---
NURSE NOTES: per Dr. Bryson one more lab troponin @ 2200. will continue to monitor pt.
--- NOTE | 2018-11-09 18:35 | NUR ---
NURSE NOTES: Pt. previous blood sugar on 54's. Pt. just started on GTF.
--- NOTE | 2018-11-09 19:10 | NUR ---
NURSE NOTES: Received report from Mirella DESHPANDE, pt. in bed obtunded, nom-verbal, no signs or symptoms of acute cardiac or respiratory distress noted, bed in lowest position and call light within easy reach, bed alarm on, side rails x's3 and safety brakes engaged, pt. appears to be tolerating current vent settings well- AC 14, TV 375, Fio2 @30% and peep 5- no distress noted, Jevity 1.2 running via G tube at 30cc/hr- goal is at 50cc/hr- no residual noted, pt. appears to be comfortable, HANNAH picc IV intact and patent, safety measures continued, will continue with plan of care. Addendum: 11/09/18 at 1957 by MARIAA PAGE RN RN side rails padded for seizure precautions- no seizure activity noted upon assessment.
[2018-11-09] MEDS: Albuterol/Ipratropium 3ml neb HHN SCH (19:17)
--- NOTE | 2018-11-09 19:29 | NUR ---
HAND-OFF: Report given to Steven DESHPANDE
[2018-11-09] MEDS: Dyna-Hex 2% Top Sol 2oz TOPIC SCH (20:41)
[2018-11-09] MEDS: Sennosides 8.6mg tab GT SCH (20:42)
--- NOTE | 2018-11-09 21:22 | NUR ---
NURSE NOTES: previous nurse Elizabeth RN, pt. mentioned that pt. was complaining of SOB earlier and DR. Bennett was notified- left message for DR. Bennett- awaiting for call back from doctor.
[2018-11-10] VITALS: BP 129/87
[2018-11-10] MEDS: Albuterol/Ipratropium 3ml neb HHN SCH ×4 (01:18→19:12)
[2018-11-10 04:00] VITALS: BP 118/72
[2018-11-10 04:22] LABS: BASOPHILS % (AUTO) 0.5 % (0.0-2.0); EOSINOPHILS % (AUTO) 0.8 % (0.0-3.0); HEMOGLOBIN 9.9 G/DL (12.0-16.0); LYMPHOCYTES % (AUTO) 15.9 % (20.0-45.0); MEAN CORPUSCULAR VOLUME 78 FL (80-99); MONOCYTES % (AUTO) 8.9 % (1.0-10.0); NEUTROPHILS % (AUTO) 73.9 % (45.0-75.0); PLATELET COUNT 307 K/UL (150-450); RED BLOOD COUNT 3.98 M/UL (4.20-5.40); RED CELL DISTRIBUTION WIDTH 24.5 % (11.6-14.8); WHITE BLOOD COUNT 9.8 K/UL (4.8-10.8)
[2018-11-10] MEDS: Tums 500mg GT SCH ×3 (05:01→21:04)
[2018-11-10] MEDS: Piperacillin/Tazobactam 3.375 GM in NS 110 ML IVPB SCH ×3 (05:01→21:10)
[2018-11-10] MEDS: Magnesium Oxide 400mg tab GT SCH ×3 (05:01→21:04)
[2018-11-10] MEDS: Phenytoin Susp 100mg/4ml GT SCH ×5 (05:01→21:04)
[2018-11-10] MEDS: Ferrous Sulfate 300 MG/5 ML UDC GT SCH ×3 (05:01→21:03)
[2018-11-10] MEDS: Labetalol 200mg tab GT SCH ×3 (05:02→21:04)
[2018-11-10] MEDS: Valproic Acid 250mg/5ml Liquid GT SCH ×3 (05:03→21:04)
[2018-11-10] MEDS: NovoLOG Insulin Flexpen SUBQ SCH ×3 (05:05→17:08)
[2018-11-10] MEDS: HydrALAZINE 10mg Tab GT SCH ×3 (06:00→21:59)
[2018-11-10 06:43] LABS: ALANINE AMINOTRANSFERASE 132 U/L (12-78); ALBUMIN 1.5 G/DL (3.4-5.0); ALBUMIN/GLOBULIN RATIO 0.3 (1.0-2.7); ALKALINE PHOSPHATASE 229 U/L (46-116); ANION GAP 7 mmol/L (5-15); ASPARTATE AMINO TRANSFERASE 144 U/L (15-37); BILIRUBIN,TOTAL 0.2 MG/DL (0.2-1.0); BLOOD UREA NITROGEN 17 mg/dL (7-18); CALCIUM 8.5 MG/DL (8.5-10.1); CARBON DIOXIDE 29 MMOL/L (21-32); CHLORIDE 100 MMOL/L (98-107); CREATININE 0.4 MG/DL (0.55-1.30); POTASSIUM 4.1 MMOL/L (3.5-5.1); SODIUM 136 MMOL/L (136-145)
--- NOTE | 2018-11-10 07:09 | NUR ---
HAND-OFF: Report given to Jani RN, pt. remains stable and no signs of distress noted.
--- NOTE | 2018-11-10 07:15 | NUR ---
NURSE NOTES: Received report form CHARLEE Harris. Patient is resting in bed in stable condition. No s/sx of SOB, breathing is even and unlabored, vent settings are as ordered. Observed no presence of pain or discomfort at this time. Bed is in lowest position, brakes engaged. Call light is kept within easy reach. Will continue to monitor patient.
[2018-11-10 08:00] VITALS: BP 139/88
--- NOTE | 2018-11-10 08:12 | Pulmonology Progress Note ---
Assessment/Plan Problems: (1) Ventilator dependence (2) Tracheostomy dependence (3) UTI (urinary tract infection) (4) Fever (5) Anoxic brain damage (6) Tongue abnormality (7) Seizure disorder (8) Colon adenocarcinoma (9) HTN (hypertension) (10) Sepsis (11) Diabetes (12) Abnormal LFTs (13) Protein calorie malnutrition (14) Gastrostomy in place (15) intermediate resident Assessment/Plan Continue ventilatory support/settings reviewed ABG still not done! Will attempt to wean if able Titrate down FiO2 to keep SaO2 > 90% Optimize pulmonary hygiene/mobilize as tolerated RTC and PRN HHN's Abx (Zosyn) per ID, F/U Cx's Trend ECG/trop, F/U cards recs Monitor volumes and renal function, PRN IVF DVT Px: LMWH FC, continue to discuss GOC Wound care Subjective Allergies: Uncoded Allergies: Crawfish (Allergy, Unknown, 11/09/18) Subjective AFVSS stable on vent ABG not done no sig secretions no distress Objective Last 24 Hour Vital Signs Date Time Temp Pulse Resp B/P (MAP) Pulse Ox O2 Delivery O2 Flow Rate FiO2 11/10/18 07:45 95 14 100 Mechanical Ventilator 30 11/10/18 07:35 95 24 100 Mechanical Ventilator 30 11/10/18 07:32 95 25 30 11/10/18 06:00 108/69 11/10/18 05:02 101 118/72 11/10/18 04:55 100 25 30 11/10/18 04:00 30.0 11/10/18 04:00 97.8 101 22 118/72 (87) 100 11/10/18 04:00 Mechanical Ventilator 11/10/18 03:34 103 11/10/18 02:55 98 22 30 11/10/18 01:18 94 14 100 Mechanical Ventilator 15.0 30 11/10/18 01:17 95 14 30 11/10/18 00:00 30.0 11/10/18 00:00 98.1 91 20 129/87 (101) 100 11/10/18 00:00 93 11/10/18 00:00 Mechanical Ventilator 11/09/18 22:30 88 20 30 11/09/18 22:00 103/69 11/09/18 21:01 100 138/93 11/09/18 21:00 90 18 30 8/22/19 20:00 Mechanical Ventilator 11/09/18 20:00 30.0 11/09/18 20:00 98.4 100 20 138/93 (108) 100 11/09/18 20:00 100 11/09/18 19:18 99 14 100 Mechanical Ventilator 15.0 30 11/09/18 19:13 95 15 100 Mechanical Ventilator 15.0 30 11/09/18 19:05 98 25 30 11/09/18 17:10 98 17 30 11/09/18 16:00 99.1 99 23 154/88 (110) 100 11/09/18 16:00 30.0 11/09/18 16:00 Mechanical Ventilator 11/09/18 15:22 97 11/09/18 14:39 87 24 30 11/09/18 13:06 99 158/98 11/09/18 13:06 158/98 11/09/18 12:45 99 25 30 11/09/18 12:06 98.2 97 27 158/98 (118) 100 11/09/18 12:00 Mechanical Ventilator 11/09/18 12:00 97 11/09/18 12:00 30.0 11/09/18 10:47 97 27 30 11/09/18 09:10 92 155/99 11/09/18 08:52 92 29 30 Intake and Output 11/09/18 11/10/18 18:59 06:59 Intake Total 140.0 ml 510.0 ml Output Total 350 ml Balance 140.0 ml 160.0 ml Intake Free Water 50 ml IV Total 110.0 ml 110.0 ml Tube Feeding 30 ml 350 ml Output Urine Total 350 ml # Bowel Movements 1 General Appearance: no acute distress - non verbal HEENT: normocephalic, atraumatic, status post trach, other - tongue and lip edema with lip vesicle Respiratory/Chest: lungs clear Cardiovascular: normal peripheral pulses, normal rate, regular rhythm Abdomen: normal bowel sounds, soft, non tender, no organomegaly, non distended , other - GT Extremities: no cyanosis, no clubbing, no edema Microbiology Date/Time Source Procedure Growth Status 11/08/18 23:20 Blood Blood Culture - Preliminary NO GROWTH AFTER 24 HOURS Resulted 11/08/18 23:10 Blood Blood Culture - Preliminary NO GROWTH AFTER 24 HOURS Resulted 11/09/18 05:38 Sputum Induced Gram Stain - Final Resulted 11/09/18 05:38 Sputum Induced Sputum Culture Pending Resulted 11/08/18 23:10 Rectum Received Laboratory Tests 11/09/18 10:25: White Blood Count 9.5, Red Blood Count 4.19L, Hemoglobin 10.3L, Hematocrit 32.4L , Mean Corpuscular Volume 77L, Mean Corpuscular Hemoglobin 24.7L, Mean Corpuscular Hemoglobin Concent 31.9L, Red Cell Distribution Width 24.5H, Platelet Count 306, Mean Platelet Volume 5.8L, Neutrophils (%) (Auto) 73.8, Lymphocytes (%) (Auto) 14.2L, Monocytes (%) (Auto) 10.7H, Eosinophils (%) (Auto ) 0.6, Basophils (%) (Auto) 0.6, Sodium Level 138, Potassium Level 3.1L, Chloride Level 100, Carbon Dioxide Level 32, Anion Gap 6, Blood Urea Nitrogen 16 , Creatinine 0.4L, Estimat Glomerular Filtration Rate , Glucose Level 142H, Calcium Level 8.3L, Total Bilirubin 0.3, Aspartate Amino Transf (AST/SGOT) 119H , Alanine Aminotransferase (ALT/SGPT) 110H, Alkaline Phosphatase 222H, Troponin I 0.083H, Total Protein 6.3L, Albumin 1.6L, Globulin 4.7, Albumin/Globulin Ratio 0.3L, Hepatitis A IgM Antibody [Pending], Hepatitis B Surface Antigen [ Pending], Hepatitis B Core IgM Antibody [Pending], Hepatitis C Antibody [Pending ], HIV (1&2) Antibody Rapid Negative 11/09/18 16:00: Troponin I 0.082H 11/09/18 21:55: Troponin I 0.076H 11/10/18 03:30: White Blood Count 9.8, Red Blood Count 3.98L, Hemoglobin 9.9L, Hematocrit 31.0L , Mean Corpuscular Volume 78L, Mean Corpuscular Hemoglobin 24.8L, Mean Corpuscular Hemoglobin Concent 31.8L, Red Cell Distribution Width 24.5H, Platelet Count 307, Mean Platelet Volume 5.8L, Neutrophils (%) (Auto) 73.9, Lymphocytes (%) (Auto) 15.9L, Monocytes (%) (Auto) 8.9, Eosinophils (%) (Auto) 0.8, Basophils (%) (Auto) 0.5, Sodium Level 136, Potassium Level 4.1, Chloride Level 100, Carbon Dioxide Level 29, Anion Gap 7, Blood Urea Nitrogen 17, Creatinine 0.4L, Estimat Glomerular Filtration Rate , Glucose Level 118H, Calcium Level 8.5, Total Bilirubin 0.2, Aspartate Amino Transf (AST/SGOT) 144H, Alanine Aminotransferase (ALT/SGPT) 132H, Alkaline Phosphatase 229H, Total Protein 6.7, Albumin 1.5L, Globulin 5.2, Albumin/Globulin Ratio 0.3L Current Medications Medications (Trade) Dose Ordered Sig/Lupe Route PRN Reason Start Time Stop Time Status Last Admin Dose Admin Acetaminophen (Tylenol) 650 mg Q4H PRN GT Mild Pain/Temp > 100.5 11/09/18 05:00 12/09/18 04:59 11/09/18 05:26 Albuterol/ Ipratropium (Albuterol/ Ipratropium) 3 ml Q4H PRN HHN Shortness of Breath 11/09/18 16:15 11/14/18 16:14 Albuterol/ Ipratropium (Albuterol/ Ipratropium) 3 ml Q6HRT HHN 11/09/18 19:00 11/14/18 18:59 11/10/18 07:37 Amlodipine Besylate (Norvasc) 10 mg DAILY GT 11/09/18 09:00 12/09/18 08:59 11/09/18 09:10 Bisacodyl (Dulcolax) 10 mg DAILY PRN RECTAL Constipation 11/09/18 05:00 12/09/18 04:59 Calcium Carbonate (Tums) 500 mg EVERY 8 HOURS GT 11/09/18 14:00 12/09/18 08:59 11/10/18 05:01 Chlorhexidine Gluconate (Corazon-Hex 2%) 1 applic DAILY@1999 TOPIC 11/09/18 20:00 12/09/18 19:59 11/09/18 20:41 Dextrose (Dextrose 50%) 25 ml Q30M PRN IV Hypoglycemia 11/09/18 04:45 12/09/18 04:44 Dextrose (Dextrose 50%) 50 ml Q30M PRN IV Hypoglycemia 11/09/18 04:45 12/09/18 04:44 11/09/18 09:09 Enoxaparin Sodium (Lovenox) 40 mg DAILY SUBQ 11/09/18 09:00 12/09/18 08:59 11/09/18 09:11 Famotidine (Pepcid) 20 mg EVERY 12 HOURS GT 11/09/18 21:00 12/09/18 08:59 11/09/18 20:41 Ferrous Sulfate (Feosol) 300 mg EVERY 8 HOURS GT 11/09/18 14:00 12/09/18 08:59 11/10/18 05:01 Furosemide (Lasix) 40 mg EVERY 12 HOURS GT 11/09/18 09:00 12/09/18 08:59 11/09/18 20:41 Hydralazine HCl (Apresoline) 5 mg EVERY 8 HOURS GT 11/09/18 06:00 12/09/18 05:59 11/09/18 13:06 Insulin Aspart (NovoLOG) Q6HR SUBQ 11/09/18 06:00 12/09/18 05:59 11/10/18 05:05 Insulin Detemir (Levemir) 6 units BID SUBQ 11/09/18 09:00 12/09/18 08:59 11/09/18 18:39 Labetalol HCl (Normodyne) 200 mg Q8HR GT 11/09/18 06:00 12/09/18 05:59 11/10/18 05:02 Levetiracetam (Keppra) 1,500 mg Q12HR GT 11/09/18 09:00 12/09/18 08:59 11/09/18 20:41 Lorazepam (Ativan 2mg/ml 1ml) 2 mg DAILY PRN IVP For Seizures 11/09/18 05:00 11/16/18 04:59 Magnesium Hydroxide (Mom) 30 ml DAILY PRN GT Constipation 11/09/18 05:00 12/09/18 04:59 Magnesium Oxide (Mag-Ox 400mg) 400 mg EVERY 8 HOURS GT 11/09/18 14:00 12/09/18 08:59 11/10/18 05:01 Ondansetron HCl (Zofran) 4 mg Q6H PRN GT Nausea & Vomiting 11/09/18 05:00 12/09/18 04:59 Phenobarbital (PHENobarbital) 60 mg BID GT 11/09/18 09:00 12/09/18 08:59 11/09/18 18:47 Phenytoin (Dilantin) 100 mg Q8HR GT 11/09/18 06:00 12/09/18 05:59 11/10/18 05:45 Piperacillin Sod/ Tazobactam Sod 3.375 gm/Sodium Chloride 110 ml @ 27.5 mls/hr Q8H IVPB 11/09/18 06:00 11/16/18 05:59 11/10/18 05:01 Sennosides (Senokot) 8.6 mg EVERY 12 HOURS GT 11/09/18 21:00 12/09/18 08:59 11/09/18 20:42 Valproic Acid (Depakene) 500 mg EVERY 8 HOURS GT 11/09/18 06:00 12/09/18 05:59 11/10/18 05:03 Balbir Dejesus MD Nov 10, 2018 08:12
[2018-11-10] MEDS: Sennosides 8.6mg tab GT SCH ×2 (08:28→21:04)
[2018-11-10] MEDS: Furosemide 40mg tab GT SCH ×2 (08:29→21:05)
[2018-11-10] MEDS: levETIRAcetam 500mg/5ml Liquid GT SCH ×2 (08:30→21:03)
[2018-11-10] MEDS: PHENobarbital Elixir 30mg/7.5ml GT SCH ×2 (08:31→17:08)
[2018-11-10] MEDS: Enoxaparin 40mg Inj SUBQ SCH (08:33)
[2018-11-10] MEDS: Levemir Flexpen SUBQ SCH ×2 (08:35→17:10)
[2018-11-10] MEDS: Acetaminophen 650mg/20.3ml GT PRN (08:44)
--- NOTE | 2018-11-10 10:34 | NUR ---
NURSE NOTES: Contacted and informed Dr. Belle that patient's daughter, Treasure, is requesting patient to be placed in a different SNF in the even of discharge, per daughter states dissatisfactions with [facility] and would like different SNF. Dr. Belle acknowledged and informed this nurs that they will put in order themself. Noted. Charge nurse made aware. Will continue to monitor patient.
--- NOTE | 2018-11-10 10:51 | NUR ---
NURSE NOTES: Patient's daughter, Treasure, at bedside made aware that Dr. Belle had put in order with director of casework to find different SNF for patient. Treasure acknowledged. Charge nurse aware. Will continue to monitor patient.
--- NOTE | 2018-11-10 11:02 | General Progress Note ---
Assessment/Plan Status: stable Assessment/Plan: 78-year-old female who is trach dependent who was brought in by care home for sepsis and found to have UTI. #Sepsis secondary to UTI, [facility] ID consult appreciate Rec Continue antibiotics per ID: Zosyn, change abx per ID absed off c +s Follow-up blood cultures: ngt sputum cultures Chest x-ray reviewed: Atelectasis # Transaminitis - trend lft's - GI consult, appreciate reqs - ab us: reviewed - f/u hep panel #Elevated troponin secondary to sepsis versus ACS Cardiology consult, appreciate recs Medications per cardiology #Hypertension- improved Continue current medications, hydralazine as needed hypertension #Vent dependent Pulmonary consult, appreciate recs Vent management per pulmonary #Hypokalemia Replace, continue to monitor Time of note may not reflect time of patient encounter Pulsed reviewed: Full code Subjective Allergies: Uncoded Allergies: Crawfish (Allergy, Unknown, 11/09/18) Objective Last 24 Hour Vital Signs Date Time Temp Pulse Resp B/P (MAP) Pulse Ox O2 Delivery O2 Flow Rate FiO2 11/10/18 10:26 98.2 11/10/18 09:14 99.9 11/10/18 08:54 107 25 30 11/10/18 08:29 104 138/75 11/10/18 08:00 Mechanical Ventilator 11/10/18 08:00 30.0 11/10/18 08:00 93 11/10/18 08:00 99.9 102 22 139/88 (105) 100 11/10/18 07:45 95 14 100 Mechanical Ventilator 30 11/10/18 07:35 95 24 100 Mechanical Ventilator 30 11/10/18 07:32 95 25 30 11/10/18 06:00 108/69 11/10/18 05:02 101 118/72 11/10/18 04:55 100 25 30 11/10/18 04:00 30.0 11/10/18 04:00 97.8 101 22 118/72 (87) 100 11/10/18 04:00 Mechanical Ventilator 11/10/18 03:34 103 11/10/18 02:55 98 22 30 11/10/18 01:18 94 14 100 Mechanical Ventilator 15.0 30 11/10/18 01:17 95 14 30 11/10/18 00:00 30.0 11/10/18 00:00 98.1 91 20 129/87 (101) 100 11/10/18 00:00 93 11/10/18 00:00 Mechanical Ventilator 11/09/18 22:30 88 20 30 11/09/18 22:00 103/69 11/09/18 21:01 100 138/93 11/09/18 21:00 90 18 30 11/09/18 20:00 Mechanical Ventilator 11/09/18 20:00 30.0 11/09/18 20:00 98.4 100 20 138/93 (108) 100 11/09/18 20:00 100 11/09/18 19:18 99 14 100 Mechanical Ventilator 15.0 30 11/09/18 19:13 95 15 100 Mechanical Ventilator 15.0 30 11/09/18 19:05 98 25 30 11/09/18 17:10 98 17 30 11/09/18 16:00 99.1 99 23 154/88 (110) 100 11/09/18 16:00 30.0 11/09/18 16:00 Mechanical Ventilator 11/09/18 15:22 97 11/09/18 14:39 87 24 30 11/09/18 13:06 99 158/98 11/09/18 13:06 158/98 11/09/18 12:45 99 25 30 11/09/18 12:06 98.2 97 27 158/98 (118) 100 11/09/18 12:00 Mechanical Ventilator 11/09/18 12:00 97 11/09/18 12:00 30.0 Intake and Output 11/09/18 11/10/18 18:59 06:59 Intake Total 140.0 ml 510.0 ml Output Total 350 ml Balance 140.0 ml 160.0 ml Intake Free Water 50 ml IV Total 110.0 ml 110.0 ml Tube Feeding 30 ml 350 ml Output Urine Total 350 ml # Bowel Movements 1 Laboratory Tests 11/09/18 16:00: Troponin I 0.082H 11/09/18 21:55: Troponin I 0.076H 11/10/18 03:30: White Blood Count 9.8, Red Blood Count 3.98L, Hemoglobin 9.9L, Hematocrit 31.0L , Mean Corpuscular Volume 78L, Mean Corpuscular Hemoglobin 24.8L, Mean Corpuscular Hemoglobin Concent 31.8L, Red Cell Distribution Width 24.5H, Platelet Count 307, Mean Platelet Volume 5.8L, Neutrophils (%) (Auto) 73.9, Lymphocytes (%) (Auto) 15.9L, Monocytes (%) (Auto) 8.9, Eosinophils (%) (Auto) 0.8, Basophils (%) (Auto) 0.5, Sodium Level 136, Potassium Level 4.1, Chloride Level 100, Carbon Dioxide Level 29, Anion Gap 7, Blood Urea Nitrogen 17, Creatinine 0.4L, Estimat Glomerular Filtration Rate , Glucose Level 118H, Calcium Level 8.5, Total Bilirubin 0.2, Aspartate Amino Transf (AST/SGOT) 144H, Alanine Aminotransferase (ALT/SGPT) 132H, Alkaline Phosphatase 229H, Total Protein 6.7, Albumin 1.5L, Globulin 5.2, Albumin/Globulin Ratio 0.3L 11/10/18 08:09: Arterial Blood pH 7.497H, Arterial Blood Partial Pressure CO2 41.4, Arterial Blood Partial Pressure O2 89.1, Arterial Blood HCO3 31.3H, Arterial Blood Oxygen Saturation 96.3, Arterial Blood Base Excess 7.5H, Harsh Test Positive Height (Feet): 5 Height (Inches): 8.00 Weight (Pounds): 174 Jennifer Belle DO Nov 10, 2018 11:02
[2018-11-10 11:18] LABS: ALANINE AMINOTRANSFERASE 131 U/L (12-78); ALBUMIN 1.6 G/DL (3.4-5.0); ALKALINE PHOSPHATASE 229 U/L (46-116); ASPARTATE AMINO TRANSFERASE 149 U/L (15-37); BILIRUBIN,DIRECT < 0.1 MG/DL (0.0-0.3); BILIRUBIN,TOTAL 0.2 MG/DL (0.2-1.0)
[2018-11-10 12:00] VITALS: BP 109/70
--- NOTE | 2018-11-10 12:54 | Surgery Progress Note ---
Surgery Progress Note Subjective Additional Comments no acute events t max 99.9 lft's stable US noted with polyp 6mm and no stones Objective Last 24 Hour Vital Signs Date Time Temp Pulse Resp B/P (MAP) Pulse Ox O2 Delivery O2 Flow Rate FiO2 11/10/18 12:00 98.4 99 22 109/70 (83) 100 11/10/18 12:00 95 11/10/18 12:00 Mechanical Ventilator 11/10/18 12:00 30.0 11/10/18 11:56 98 27 30 11/10/18 10:26 98.2 11/10/18 09:14 99.9 11/10/18 08:54 107 25 30 11/10/18 08:29 104 138/75 11/10/18 08:00 Mechanical Ventilator 11/10/18 08:00 30.0 11/10/18 08:00 93 11/10/18 08:00 99.9 102 22 139/88 (105) 100 11/10/18 07:45 95 14 100 Mechanical Ventilator 30 11/10/18 07:35 95 24 100 Mechanical Ventilator 30 11/10/18 07:32 95 25 30 11/10/18 06:00 108/69 11/10/18 05:02 101 118/72 11/10/18 04:55 100 25 30 11/10/18 04:00 30.0 11/10/18 04:00 97.8 101 22 118/72 (87) 100 11/10/18 04:00 Mechanical Ventilator 11/10/18 03:34 103 11/10/18 02:55 98 22 30 11/10/18 01:18 94 14 100 Mechanical Ventilator 15.0 30 11/10/18 01:17 95 14 30 11/10/18 00:00 30.0 11/10/18 00:00 98.1 91 20 129/87 (101) 100 11/10/18 00:00 93 11/10/18 00:00 Mechanical Ventilator 11/09/18 22:30 88 20 30 11/09/18 22:00 103/69 11/09/18 21:01 100 138/93 11/09/18 21:00 90 18 30 11/09/18 20:00 Mechanical Ventilator 11/09/18 20:00 30.0 11/09/18 20:00 98.4 100 20 138/93 (108) 100 11/09/18 20:00 100 11/09/18 19:18 99 14 100 Mechanical Ventilator 15.0 30 11/09/18 19:13 95 15 100 Mechanical Ventilator 15.0 30 11/09/18 19:05 98 25 30 11/09/18 17:10 98 17 30 11/09/18 16:00 99.1 99 23 154/88 (110) 100 11/09/18 16:00 30.0 11/09/18 16:00 Mechanical Ventilator 11/09/18 15:22 97 11/09/18 14:39 87 24 30 11/09/18 13:06 99 158/98 11/09/18 13:06 158/98 I&O Intake and Output 11/09/18 11/10/18 18:59 06:59 Intake Total 140.0 ml 510.0 ml Output Total 350 ml Balance 140.0 ml 160.0 ml Intake Free Water 50 ml IV Total 110.0 ml 110.0 ml Tube Feeding 30 ml 350 ml Output Urine Total 350 ml # Bowel Movements 1 Dressing: saturated Wound: other Drains: other Cardiovascular: RSR Respiratory: decreased breath sounds Abdomen: soft, present bowel sounds Extremities: no cyanosis, other Laboratory Tests Test 11/09/18 16:00 11/09/18 21:55 11/10/18 03:30 11/10/18 08:09 Troponin I 0.082 ng/mL (0.000-0.056) 0.076 ng/mL (0.000-0.056) White Blood Count 9.8 K/UL (4.8-10.8) Red Blood Count 3.98 M/UL (4.20-5.40) L Hemoglobin 9.9 G/DL (12.0-16.0) L Hematocrit 31.0 % (37.0-47.0) L Mean Corpuscular Volume 78 FL (80-99) L Mean Corpuscular Hemoglobin 24.8 PG (27.0-31.0) L Mean Corpuscular Hemoglobin Concent 31.8 G/DL (32.0-36.0) L Red Cell Distribution Width 24.5 % (11.6-14.8) H Platelet Count 307 K/UL (150-450) Mean Platelet Volume 5.8 FL (6.5-10.1) L Neutrophils (%) (Auto) 73.9 % (45.0-75.0) Lymphocytes (%) (Auto) 15.9 % (20.0-45.0) L Monocytes (%) (Auto) 8.9 % (1.0-10.0) Eosinophils (%) (Auto) 0.8 % (0.0-3.0) Basophils (%) (Auto) 0.5 % (0.0-2.0) Sodium Level 136 MMOL/L (136-145) Potassium Level 4.1 MMOL/L (3.5-5.1) Chloride Level 100 MMOL/L (98-107) Carbon Dioxide Level 29 MMOL/L (21-32) Anion Gap 7 mmol/L (5-15) Blood Urea Nitrogen 17 mg/dL (7-18) Creatinine 0.4 MG/DL (0.55-1.30) L Estimat Glomerular Filtration Rate mL/min (>60) Glucose Level 118 MG/DL (74-106) H Calcium Level 8.5 MG/DL (8.5-10.1) Total Bilirubin 0.2 MG/DL (0.2-1.0) Direct Bilirubin < 0.1 MG/DL (0.0-0.3) Aspartate Amino Transf (AST/SGOT) 149 U/L (15-37) H Alanine Aminotransferase (ALT/SGPT) 131 U/L (12-78) H Alkaline Phosphatase 229 U/L (46-116) H Total Protein 6.7 G/DL (6.4-8.2) Albumin 1.6 G/DL (3.4-5.0) L Globulin 5.2 g/dL Albumin/Globulin Ratio 0.3 (1.0-2.7) L Thyroid Stimulating Hormone (TSH) Pending Valproic Acid (Depakene) Level Pending Arterial Blood pH 7.497 (7.350-7.450) Arterial Blood Partial Pressure CO2 41.4 mmHg (35.0-45.0) Arterial Blood Partial Pressure O2 89.1 mmHg (75.0-100.0) Arterial Blood HCO3 31.3 mmol/L (22.0-26.0) H Arterial Blood Oxygen Saturation 96.3 % (95-100) Arterial Blood Base Excess 7.5 (-2-2) H Harsh Test Positive Plan Problems: (1) Fever (2) Tongue abnormality Assessment & Plan: patients jaw clenched closed and tongue has been stuck for some time. tongue split from middle teeth and now in two. edema and unable to reduce keep tongue moist. apply lube jelly prn dryness. will monitor do not recommend surgical intervention for this current medical condition (3) Tracheostomy dependence (4) Sepsis Assessment & Plan: gb no stones 6mm polyp no acute surgical intervention planned trend labs DAILY ESTIMATED NEEDS: Needs based on Critical care, sepsis, wound 60kg adj 22-30 kcals/kg 2751-6862 total kcals 1.25-2 g protein/kg 75-120 g total protein Fluid per MD, on lasix NUTRITION DIAGNOSIS: * Swallowing difficulty r/t respiratory status as evidenced by pt is vent dep via trach and PEG dep. * Increased kcal and pro needs r/t wound healing and sepsis as evidenced by pt w/ sacral and R heel wounds, febrile (Tmax 101.5). CURRENT TF: Jevity 1.2 @50 ml/hr x16 hrs ENTERAL NUTRITION RECOMMENDATIONS: Glucerna 1.2 @65ml/hr x18 hrs + Prosource x1 daily to provide 1170ml, 1404 kcal, 70g pro + 11g pro, 942 free H2O - REC TF CHANGE AND INCREASE TO BETTER MEET EST NEEDS - TF TO BE HELD FOR ONE HR BEFORE AND AFTER DILANTIN MEDS - START @20ML/HR, ADVANCE TOLERATED 15ML/HR Q4-6 HRS TO GOAL - FLUSH PER MD, HOB OVRE 30 DEGREES ADDITIONAL RECOMMENDATIONS: 1) CALIBRATED BED SCALE W/ ADDED P200 MATTRESS + PUMP 2) ON LASIX, MONITOR LYTES AND HYDRATION STATUS DAILY 3) TF TO RUN A MAX OF 18 HRS/DAY W/ DILANTIN TID PER PHARMACY 4) REC TF CHANGE TO CARB CONTROL FORMULA 5) WOUND CARE: ADD CHAYITO BID + VIT C 250MG DAILY (5) Fever (6) Decubitus skin ulcer Assessment & Plan: Patient presented with a stage 4 full thickness sacral decubitus ulcer. no odor. no drainage. some sloth and necrotic tissue but does have some granulation tissue. periwound breakdown wash wound daily with NS apply hydrogel and foam dressing turn q2h off load pressure heel protectors pillow under legs air mattress will follow with recs thank you Preet Hylton Nov 10, 2018 12:54
[2018-11-10 16:00] VITALS: BP 119/70
--- NOTE | 2018-11-10 16:51 | Infectious Diseases Prog Note ---
Assessment/Plan Assessment/Plan Full consult dictated: A) 1) gram + bacteremia, grma + uti, sepsis, fevers, sacral wound - ? infected, ? source 2) trach, vent, nava 3) pmh noted 4) allergies - nkda P) 1) zosyn and vancomycin 2) check cultures, labs and chest x-ray 3) will follow Subjective Allergies: Uncoded Allergies: Crawfish (Allergy, Unknown, 11/09/18) Objective Vital Signs Last 24 Hour Vital Signs Date Time Temp Pulse Resp B/P (MAP) Pulse Ox O2 Delivery O2 Flow Rate FiO2 11/10/18 16:00 30.0 11/10/18 16:00 98.2 93 22 119/70 (86) 100 11/10/18 16:00 Mechanical Ventilator 11/10/18 15:58 93 25 30 11/10/18 13:39 98 109/70 11/10/18 13:39 109/70 11/10/18 13:34 98 14 100 Mechanical Ventilator 30 11/10/18 13:21 99 27 100 Mechanical Ventilator 30 11/10/18 13:20 98 23 30 11/10/18 12:00 98.4 99 22 109/70 (83) 100 11/10/18 12:00 95 11/10/18 12:00 Mechanical Ventilator 11/10/18 12:00 30.0 11/10/18 11:56 98 27 30 11/10/18 10:26 98.2 11/10/18 09:14 99.9 11/10/18 08:54 107 25 30 11/10/18 08:29 104 138/75 11/10/18 08:00 Mechanical Ventilator 11/10/18 08:00 30.0 11/10/18 08:00 93 11/10/18 08:00 99.9 102 22 139/88 (105) 100 11/10/18 07:45 95 14 100 Mechanical Ventilator 30 11/10/18 07:35 95 24 100 Mechanical Ventilator 30 11/10/18 07:32 95 25 30 11/10/18 06:00 108/69 11/10/18 05:02 101 118/72 11/10/18 04:55 100 25 30 11/10/18 04:00 30.0 11/10/18 04:00 97.8 101 22 118/72 (87) 100 11/10/18 04:00 Mechanical Ventilator 11/10/18 03:34 103 11/10/18 02:55 98 22 30 11/10/18 01:18 94 14 100 Mechanical Ventilator 15.0 30 11/10/18 01:17 95 14 30 11/10/18 00:00 30.0 11/10/18 00:00 98.1 91 20 129/87 (101) 100 11/10/18 00:00 93 11/10/18 00:00 Mechanical Ventilator 11/09/18 22:30 88 20 30 11/09/18 22:00 103/69 11/09/18 21:01 100 138/93 11/09/18 21:00 90 18 30 11/09/18 20:00 Mechanical Ventilator 11/09/18 20:00 30.0 11/09/18 20:00 98.4 100 20 138/93 (108) 100 11/09/18 20:00 100 11/09/18 19:18 99 14 100 Mechanical Ventilator 15.0 30 11/09/18 19:13 95 15 100 Mechanical Ventilator 15.0 30 11/09/18 19:05 98 25 30 11/09/18 17:10 98 17 30 Height (Feet): 5 Height (Inches): 8.00 Weight (Pounds): 174 Microbiology Date/Time Source Procedure Growth Status 11/08/18 23:20 Blood Blood Culture - Preliminary Resulted 11/08/18 23:10 Blood Blood Culture - Preliminary Resulted 11/09/18 05:38 Sputum Induced Gram Stain - Final Resulted 11/09/18 05:38 Sputum Induced Sputum Culture Pending Resulted 11/09/18 02:05 Urine,Clean Catch Urine Culture - Preliminary Gram Positive Cocci Resulted 11/08/18 23:10 Rectum Received Laboratory Tests Test 11/09/18 21:55 11/10/18 03:30 11/10/18 08:09 Troponin I 0.076 ng/mL (0.000-0.056) White Blood Count 9.8 K/UL (4.8-10.8) Red Blood Count 3.98 M/UL (4.20-5.40) L Hemoglobin 9.9 G/DL (12.0-16.0) L Hematocrit 31.0 % (37.0-47.0) L Mean Corpuscular Volume 78 FL (80-99) L Mean Corpuscular Hemoglobin 24.8 PG (27.0-31.0) L Mean Corpuscular Hemoglobin Concent 31.8 G/DL (32.0-36.0) L Red Cell Distribution Width 24.5 % (11.6-14.8) H Platelet Count 307 K/UL (150-450) Mean Platelet Volume 5.8 FL (6.5-10.1) L Neutrophils (%) (Auto) 73.9 % (45.0-75.0) Lymphocytes (%) (Auto) 15.9 % (20.0-45.0) L Monocytes (%) (Auto) 8.9 % (1.0-10.0) Eosinophils (%) (Auto) 0.8 % (0.0-3.0) Basophils (%) (Auto) 0.5 % (0.0-2.0) Sodium Level 136 MMOL/L (136-145) Potassium Level 4.1 MMOL/L (3.5-5.1) Chloride Level 100 MMOL/L (98-107) Carbon Dioxide Level 29 MMOL/L (21-32) Anion Gap 7 mmol/L (5-15) Blood Urea Nitrogen 17 mg/dL (7-18) Creatinine 0.4 MG/DL (0.55-1.30) L Estimat Glomerular Filtration Rate mL/min (>60) Glucose Level 118 MG/DL (74-106) H Calcium Level 8.5 MG/DL (8.5-10.1) Total Bilirubin 0.2 MG/DL (0.2-1.0) Direct Bilirubin < 0.1 MG/DL (0.0-0.3) Aspartate Amino Transf (AST/SGOT) 149 U/L (15-37) H Alanine Aminotransferase (ALT/SGPT) 131 U/L (12-78) H Alkaline Phosphatase 229 U/L (46-116) H Total Protein 6.7 G/DL (6.4-8.2) Albumin 1.6 G/DL (3.4-5.0) L Globulin 5.2 g/dL Albumin/Globulin Ratio 0.3 (1.0-2.7) L Thyroid Stimulating Hormone (TSH) 1.599 uiU/mL (0.358-3.740) Valproic Acid (Depakene) Level 42 MCG/ML (50-100) L Arterial Blood pH 7.497 (7.350-7.450) Arterial Blood Partial Pressure CO2 41.4 mmHg (35.0-45.0) Arterial Blood Partial Pressure O2 89.1 mmHg (75.0-100.0) Arterial Blood HCO3 31.3 mmol/L (22.0-26.0) H Arterial Blood Oxygen Saturation 96.3 % (95-100) Arterial Blood Base Excess 7.5 (-2-2) H Harsh Test Positive Current Medications Medications (Trade) Dose Ordered Sig/Lupe Route PRN Reason Start Time Stop Time Status Last Admin Dose Admin Acetaminophen (Tylenol) 650 mg Q4H PRN GT Mild Pain/Temp > 100.5 11/09/18 05:00 12/09/18 04:59 11/10/18 08:44 Albuterol/ Ipratropium (Albuterol/ Ipratropium) 3 ml Q4H PRN HHN Shortness of Breath 11/09/18 16:15 11/14/18 16:14 Albuterol/ Ipratropium (Albuterol/ Ipratropium) 3 ml Q6HRT HHN 11/09/18 19:00 11/14/18 18:59 11/10/18 13:23 Amlodipine Besylate (Norvasc) 10 mg DAILY GT 11/09/18 09:00 12/09/18 08:59 11/10/18 08:29 Bisacodyl (Dulcolax) 10 mg DAILY PRN RECTAL Constipation 11/09/18 05:00 12/09/18 04:59 Calcium Carbonate (Tums) 500 mg EVERY 8 HOURS GT 11/09/18 14:00 12/09/18 08:59 11/10/18 13:37 Chlorhexidine Gluconate (Corazon-Hex 2%) 1 applic DAILY@1999 TOPIC 11/09/18 20:00 12/09/18 19:59 11/09/18 20:41 Dextrose (Dextrose 50%) 25 ml Q30M PRN IV Hypoglycemia 11/09/18 04:45 12/09/18 04:44 Dextrose (Dextrose 50%) 50 ml Q30M PRN IV Hypoglycemia 11/09/18 04:45 12/09/18 04:44 11/09/18 09:09 Enoxaparin Sodium (Lovenox) 40 mg DAILY SUBQ 11/09/18 09:00 12/09/18 08:59 11/10/18 08:33 Famotidine (Pepcid) 20 mg EVERY 12 HOURS GT 11/09/18 21:00 12/09/18 08:59 11/10/18 08:29 Ferrous Sulfate (Feosol) 300 mg EVERY 8 HOURS GT 11/09/18 14:00 12/09/18 08:59 11/10/18 13:37 Furosemide (Lasix) 40 mg EVERY 12 HOURS GT 11/09/18 09:00 12/09/18 08:59 11/10/18 08:29 Hydralazine HCl (Apresoline) 5 mg EVERY 8 HOURS GT 11/09/18 06:00 12/09/18 05:59 11/09/18 13:06 Insulin Aspart (NovoLOG) Q6HR SUBQ 11/09/18 06:00 12/09/18 05:59 11/10/18 12:27 Insulin Detemir (Levemir) 6 units BID SUBQ 11/09/18 09:00 12/09/18 08:59 11/10/18 08:35 Labetalol HCl (Normodyne) 200 mg Q8HR GT 11/09/18 06:00 12/09/18 05:59 11/10/18 05:02 Levetiracetam (Keppra) 1,500 mg Q12HR GT 11/09/18 09:00 12/09/18 08:59 11/10/18 08:30 Lorazepam (Ativan 2mg/ml 1ml) 2 mg DAILY PRN IVP For Seizures 11/09/18 05:00 11/16/18 04:59 Magnesium Hydroxide (Mom) 30 ml DAILY PRN GT Constipation 11/09/18 05:00 12/09/18 04:59 Magnesium Oxide (Mag-Ox 400mg) 400 mg EVERY 8 HOURS GT 11/09/18 14:00 12/09/18 08:59 11/10/18 13:37 Ondansetron HCl (Zofran) 4 mg Q6H PRN GT Nausea & Vomiting 11/09/18 05:00 12/09/18 04:59 Phenobarbital (PHENobarbital) 60 mg BID GT 11/09/18 09:00 12/09/18 08:59 11/10/18 08:31 Phenytoin (Dilantin) 100 mg Q8HR GT 11/09/18 06:00 12/09/18 05:59 11/10/18 13:37 Piperacillin Sod/ Tazobactam Sod 3.375 gm/Sodium Chloride 110 ml @ 27.5 mls/hr Q8H IVPB 11/09/18 06:00 11/16/18 05:59 11/10/18 14:32 Sennosides (Senokot) 8.6 mg EVERY 12 HOURS GT 11/09/18 21:00 12/09/18 08:59 11/10/18 08:28 Valproic Acid (Depakene) 500 mg EVERY 8 HOURS GT 11/09/18 06:00 12/09/18 05:59 11/10/18 13:38 Dasha Crews MD Nov 10, 2018 16:51
--- NOTE | 2018-11-10 17:21 | NUR ---
DISCHARGE PLANNING: NOTE CLINICALS FAXED TO [facility] T: [phone] F [phone] FRANCESCA JAMES T [phone] F [phone] NATALIIA T [phone] F: [phone] CM WILL F/U
[2018-11-10] MEDS ORDERED: Vancomycin 1.5gm Premix IVPB ONE (18:00)
[2018-11-10] MEDS ORDERED: FUROSEMIDE40 MG GT (19:03)
[2018-11-10] MEDS ORDERED: VITAMIN C500 MG/11 GT (19:03)
--- NOTE | 2018-11-10 19:20 | NUR ---
HAND-OFF: Report given to CHARLEE Harris.
--- NOTE | 2018-11-10 19:23 | NUR ---
NURSE NOTES: Received report from Jani RN, pt. in bed obtunded, non-verbal, no signs or symptoms of acute cardiac or respiratory distress noted, bed in lowest position and call light within easy reach, bed alarm on, side rails x's3 and safety brakes engaged, pt. appears to be tolerating current vent settings well- AC 14, TV 375, Fio2 @30% and peep 5- no distress noted, Jevity 1.2 running via G tube at 50cc/hr- no residual noted, pt. appears to be comfortable and is clean and dry, HANNAH PICC intact and patent, safety measures continued, will continue with plan of care.
--- NOTE | 2018-11-10 19:27 | NUR ---
RESPIRATORY NOTE: Pt received on vent settings AC/VC 14, 375 VT, FiO2 30%, PEEP 5+. Pt is trach-dependent with a cuffed shiley 8. Vitals within normal limits. Bilateral rhonchi breath sounds. Moderate yellow, white secretions upon suctioning. Ambubag present at bedside. Alarms on and audible. Will continue to monitor.
--- NOTE | 2018-11-10 19:45 | Consultation ---
DATE OF CONSULTATION: 11/10/2018 CONSULTING PHYSICIAN: Viviane Melchor M.D. HISTORY OF PRESENT ILLNESS: The patient is a 78-year-old female with a history of multiple medical comorbidities who has been admitted to the hospital for medical stabilization. The patient is in B[place], is intubated. The patient has a history of agitation. The family was at the bedside. The patient was agitated this morning. She is having Depakote and Ativan on board. During the evaluation, the patient is nonverbal, confused. She is unable to provide any history. I discussed her medications with her family member who was at the bedside. PAST PSYCHIATRIC HISTORY: Severe cognitive impairment due to anoxic brain damage, agitation. The patient has mood swings, on Depakote for mood stabilization as well as seizure. PAST MEDICAL HISTORY: Includes diabetes, seizure disorder, hypertension, lung abnormality, carcinoma, tracheostomy dependence, decubitus skin ulcer. ALLERGIES: Crawfish. SOCIAL HISTORY: No history of illicit drug use or alcohol. MENTAL STATUS EXAMINATION: The patient is awake however is nonverbal. Mood was calm during my evaluation, agitated earlier. Affect is flat. Thought process, there is a paucity of thought content. Cognition severely impaired. ASSESSMENT: [place] I Chronic encephalopathy. [place] II Deferred. [place] III Anoxic brain injury. [place] IV Low. [place] V Less than 10. PLAN: 1. Ativan 2 mg p.r.n. 2. Depakote 500 b.i.d. 3. Discussed the case with her family. Viviane Melchor M.D. DR: PALOMA JOB#: [id number] CC:
[2018-11-10 20:00] VITALS: BP 126/69
[2018-11-10] MEDS: Dyna-Hex 2% Top Sol 2oz TOPIC SCH (21:03)
--- NOTE | 2018-11-10 22:00 | Consultation ---
DATE OF CONSULTATION: 11/10/2018 INFECTIOUS DISEASES CONSULTATION CONSULTING PHYSICIAN: Dasha Crews M.D. ATTENDING PHYSICIAN: Aldair Buck M.D. REFERRING PHYSICIAN: Dr. Monterroso. REASON FOR CONSULTATION: Gram-positive bacteremia, sepsis, gram-positive UTI, sacral wound, possible infection, and fevers. CHIEF COMPLAINT: The patient's chief complaint coming in to the hospital is sepsis, vent dependency. HISTORY OF PRESENT ILLNESS: This is a 78-year-old female, who has trach, vent, and is poorly responsive. She comes in to [facility] with fevers, tachycardia, and sepsis. The patient's temperature on admission was 101.5. The patient's workup shows that she has gram-positive organisms in the blood and gram-positive UTI. Initial chest x-ray showed no obvious pneumonia. Followup chest x-ray and sputum culture, I believe have been ordered. The patient is currently on vancomycin and Zosyn antibiotics for the sepsis, gram-positive bacteremia, and UTI. The patient also has a sacral wound. The patient with is being followed by Surgery. Echo was also done. MAR was noted. Orders were noted. Notes were reviewed. The patient has trach, vent, is poorly responsive, cannot give any further history. Case was discussed with Dr. Monterroso. REVIEW OF SYSTEMS: CONSTITUTIONAL: The patient has trach, vent, respiratory failure, Ospina. She is poorly responsive. She came in with fevers of up to 101.5 and she came in with tachycardia, heart rate as high as 107. The patient is poorly responsive. HEAD AND NECK: She has trach. CARDIAC: No pressors. GASTROINTESTINAL: No nausea, vomiting, or diarrhea. GENITOURINARY: No Ospina. PULMONARY: On a vent. Some secretions. SKIN: No new rash. She has sacral wound. EXTREMITIES: Could not assess. NEUROLOGIC: No seizures. Generalized fatigue, weakness, poorly responsive. Review of systems is otherwise limited. PAST MEDICAL HISTORY: The patient has past medical history of the following. The patient has past medical history of trach, vent, respiratory failure, vent dependency. The patient has history of sacral wound. The patient has history of being poorly responsive. She has history of anoxic brain injury, cardiac arrest, PEG, dysphagia, G-tube. She has history of tongue abnormality and swelling. She has history of colon adenocarcinoma. She has history of hypertension and history of diabetes. Rest of the past medical history, she is also anemic. ALLERGIES: Include crawfish. She has no antibiotic allergies or medication allergies. SOCIAL HISTORY: Negative for smoking, alcohol, or drug abuse. FAMILY HISTORY: Noncontributory. Negative for tuberculosis or cancer. MEDICATIONS: Upon reviewing the MAR, she is on the following medications. She is on famotidine. She is on chlorhexidine, albuterol. She is on calcium carbonate, ferrous sulfate, magnesium oxide, enoxaparin, amlodipine, abx. She is on furosemide, phenobarbital, Zosyn, vancomycin, insulin, hydralazine, labetalol, phenytoin, abx, bisacodyl, lorazepam, magnesium hydroxide, Zofran, acetaminophen. Outside medications were noted and reconciliated. PHYSICAL EXAMINATION: VITAL SIGNS: Temperature is 98.2, pulse rate 93, respiratory rate 22, saturation 100% on FiO2 of 30%, blood pressure 119/70. Her T-max 101.5, heart rate has been as high as 107, respiratory rate as high as 27 recently. GENERAL: Lethargic, poorly responsive. HEAD AND NECK: She has a large tongue. She has a trach. Normocephalic. No icterus. She is trach-vent patient. HEART: Regular. No gallop or murmur. No friction rub. ABDOMEN: Soft. Positive bowel sounds. Cannot assess tenderness. LUNGS: Bilateral rhonchi. No definite rales. SKIN: No rash. She has a sacral wound that looks fairly clean, maybe some slough. MUSCULOSKELETAL: No effusion. Legs without cellulitis. PERIPHERAL VASCULAR: No cyanosis or gangrene. GENITOURINARY: She has a Ospina. Urine is cloudy. LINE SITES: Without phlebitis. NEUROLOGIC: Generalized weakness. Poorly responsive. LABORATORY DATA: Sputum culture is pending. Urine culture with gram-positive organisms. Blood cultures with gram-positive cocci in clusters in multiple bottles, actually 4/4 bottles. Hepatitis screen is negative. Creatinine is 0.4. LFTs were elevated and noted. White count 9.8, hemoglobin 9.9. IMAGING STUDIES: Abdominal ultrasound is negative for gallstones, report was noted. Echo showed no mention of vegetations. Chest x-ray with atelectasis. Followup chest x-ray has been ordered. ASSESSMENT AND PLAN: 1. The patient has gram-positive bacteremia and sepsis with fevers and SIRS criteria, tachycardia, and respiratory failure. She also has gram-positive UTI, but most likely source is from the gram-positive bacteremia. At this time, we will continue vancomycin and Zosyn for the patient's gram-positive bacteremia, sepsis, fevers, gram-positive UTI, possible sacral wound infection. We will get x-ray of the sacrum. X-ray has been ordered for underlying deep infection such as osteo. Await identification of gram-positive bacteremia. The patient may need a TONI to rule out endocarditis especially if this is Staph aureus and current blood cultures are positive. Continue vancomycin and Zosyn for gram-positive bacteremia, UTI, sepsis, fevers, and SIRS criteria. Continue wound care protocol for the sacral wound. Check followup laboratories, chest x-ray, and cultures. Continue vancomycin and Zosyn for now. 2. Trach-vent respiratory failure. 3. Dysphagia, G-tube. 4. Anemia. 5. Diabetes. 6. Hypertension. 7. Large tongue. 8. Anoxic brain injury. 9. Weakness. 10. Poorly responsive. 11. History of seizures. 12. History of colon adenocarcinoma. 13. Skin care protocol. 14. Allergy to crawfish. 15. Social history negative. 16. Family history noncontributory. 17. MAR was noted. 18. Case was discussed with RN. 19. Continue treatment per primary consultants. 20. Orders were ordered, entered, and noted. 21. Continue wound care protocol. 22. Continue blood sugar and blood pressure treatment per primary consultants for diabetes and hypertension. Dasha Crews M.D. DR: Julianne JOB#: [id number] CC: MARGY
--- NOTE | 2018-11-10 22:45 | Consultation ---
DATE OF CONSULTATION: 11/10/2018 CHIEF COMPLAINT: Abnormal liver function tests. HISTORY OF PRESENT ILLNESS: Most of the history is per chart. The patient is a vent and PEG dependent, was transferred to the hospital. The patient had prior history of ventral hernia repair in September in [facility], had a cardiac arrest and anoxic brain injury. Since then, she has been having trach and PEG. The reason for consultation at this time is anemia and abnormal liver function tests. PAST MEDICAL HISTORY: 1. Diabetes. 2. Hypertension. 3. Seizure disorder. 4. Colon cancer. 5. Anoxic brain injury. 6. Chronic respiratory failure, on the vent. 7. Dysphagia with PEG. MEDICATIONS: Please see medication reconciliation list. ALLERGIES: Fish. SOCIAL HISTORY: Currently lives in retirement. No history of tobacco, alcohol, or illicit drug abuse. PAST SURGICAL HISTORY: Hernia repair and also the patient had tracheostomy. REVIEW OF SYSTEMS: Limited. FAMILY HISTORY: Noncontributory. PHYSICAL EXAMINATION: VITAL SIGNS: Temperature is 98.4, pulse 96, respirations 25, blood pressure 109/70. HEENT: Normocephalic and atraumatic. Mild pale conjunctivae. NECK: Supple. Trach in place. LUNGS: Decreased breath sounds bilaterally based on the supine exam. CARDIOVASCULAR: Regular rhythm. Plus S1 and S2. ABDOMEN: Positive bowel sounds. Soft, nontender. G-tube in place. No rebound. No guarding. No peritoneal signs. EXTREMITIES: No cyanosis, no clubbing, no edema. LABORATORY AND DIAGNOSTIC DATA: White count is 9.8, hemoglobin 9.9, hematocrit 31, platelet count 307,000. Chem-7 grossly normal. Bilirubin is less than 0.1. AST is 149 and ALT is 110, alkaline phosphatase 229. Troponin elevated at 0.082. ASSESSMENT AND PLAN: The patient is an unfortunate 78-year-old female with numerous medical problems as listed above. The patient has anemia which seems to be microcytic, has history of prior colon cancer. Plan to do anemia workup. Send the stool for OB. Send CEA. Given current medical condition, we will be conservative in terms of any GI procedure unless if needed. In terms of abnormal liver function tests, it is mostly transaminitis with some mildly elevated alkaline phosphatase and normal bilirubin. Abdominal ultrasound showed gallbladder polyp with no stone in the common bile duct. Hepatitis panel is negative. This pattern of transaminitis can be secondary to either MT given the patient has elevated troponin and can be from medication related. Our plan will be to continue monitoring the liver function test. If it continues to be elevated, then we are going to do further workup including LIZZY and antimitochondrial antibody and possibly biopsy if needed. Casper Humphries M.D. DR: Sid JOB#: [id number] CC:
[2018-11-11] VITALS: BP 115/63
[2018-11-11] MEDS: Albuterol/Ipratropium 3ml neb HHN SCH ×4 (01:35→19:30)
[2018-11-11 04:00] VITALS: BP 145/76
[2018-11-11] MEDS: Tums 500mg GT SCH ×3 (05:06→21:01)
[2018-11-11] MEDS: Piperacillin/Tazobactam 3.375 GM in NS 110 ML IVPB SCH ×3 (05:06→21:02)
[2018-11-11] MEDS: Ferrous Sulfate 300 MG/5 ML UDC GT SCH (05:07)
[2018-11-11] MEDS: Labetalol 200mg tab GT SCH ×3 (05:07→21:01)
[2018-11-11] MEDS: Magnesium Oxide 400mg tab GT SCH ×3 (05:07→21:01)
[2018-11-11] MEDS: Valproic Acid 250mg/5ml Liquid GT SCH ×3 (05:07→21:00)
[2018-11-11] MEDS: NovoLOG Insulin Flexpen SUBQ SCH ×5 (05:16→23:00)
[2018-11-11] MEDS: Phenytoin Susp 100mg/4ml GT SCH ×3 (06:00→21:00)
[2018-11-11] MEDS: HydrALAZINE 10mg Tab GT SCH ×3 (06:00→22:00)
[2018-11-11 06:32] LABS: BASOPHILS % (AUTO) 0.5 % (0.0-2.0); HEMATOCRIT 28.5 % (37.0-47.0); HEMOGLOBIN 9.2 G/DL (12.0-16.0); LYMPHOCYTES % (AUTO) 14.5 % (20.0-45.0); MEAN CORPUSCULAR VOLUME 78 FL (80-99); MONOCYTES % (AUTO) 8.4 % (1.0-10.0); NEUTROPHILS % (AUTO) 71.5 % (45.0-75.0); PLATELET COUNT 346 K/UL (150-450); RED BLOOD COUNT 3.66 M/UL (4.20-5.40); RED CELL DISTRIBUTION WIDTH 23.6 % (11.6-14.8); WHITE BLOOD COUNT 8.2 K/UL (4.8-10.8)
--- NOTE | 2018-11-11 07:08 | NUR ---
HAND-OFF: Report given to Radha DESHPANDE, pt. remains stable and no signs of distress noted.
--- NOTE | 2018-11-11 07:09 | NUR ---
NURSE NOTES: Received report from CHARLEE Harris. Observed patient in bed, asleep, opens eyes to verbal stimuli but nonverbal. On trach-vent with previous settings, tolerating well with no respiratory distress noted. Left upper arm PICC line intact and patent. GT intact and patent with feeding infusing at prescribed rate. HOB elevated. Safety precautions in place, bed locked, alarmed, and in lowest position, padded side rails up x3, and call light left within reach. Will continue to monitor patient.
[2018-11-11 07:27] LABS: ALANINE AMINOTRANSFERASE 109 U/L (12-78); ALBUMIN 1.4 G/DL (3.4-5.0); ALBUMIN/GLOBULIN RATIO 0.3 (1.0-2.7); ALKALINE PHOSPHATASE 205 U/L (46-116); ANION GAP 5 mmol/L (5-15); ASPARTATE AMINO TRANSFERASE 108 U/L (15-37); BILIRUBIN,TOTAL 0.2 MG/DL (0.2-1.0); BLOOD UREA NITROGEN 15 mg/dL (7-18); CALCIUM 8.2 MG/DL (8.5-10.1); CARBON DIOXIDE 31 MMOL/L (21-32); CHLORIDE 100 MMOL/L (98-107); CREATININE 0.4 MG/DL (0.55-1.30); POTASSIUM 3.4 MMOL/L (3.5-5.1); SODIUM 136 MMOL/L (136-145)
[2018-11-11 07:39] LABS: % IRON SATURATION 14 % (15-50); IRON 19 ug/dL (50-175); TOTAL IRON BINDING CAPACITY 140 ug/dL (250-450)
[2018-11-11 08:00] VITALS: BP 128/73
[2018-11-11] MEDS: PHENobarbital Elixir 30mg/7.5ml GT SCH ×2 (08:09→17:48)
[2018-11-11] MEDS: levETIRAcetam 500mg/5ml Liquid GT SCH ×2 (08:09→20:14)
[2018-11-11] MEDS: Furosemide 40mg tab GT SCH ×2 (08:09→20:13)
[2018-11-11] MEDS: Sennosides 8.6mg tab GT SCH ×2 (08:10→20:13)
[2018-11-11] MEDS: Levemir Flexpen SUBQ SCH ×2 (08:41→17:59)
[2018-11-11] MEDS: Enoxaparin 40mg Inj SUBQ SCH (08:41)
[2018-11-11 09:03] LABS: INR 1.1 (0.9-1.1)
--- NOTE | 2018-11-11 09:14 | NUR ---
RADIOLOGY DEPT, CHEST AND SACRUM X-RAYS PERFORMED.-P.DYE
--- NOTE | 2018-11-11 09:21 | Diagnostic Imaging Report ---
EXAM: XR Chest, 1 View CLINICAL HISTORY: INFECT TECHNIQUE: Frontal view of the chest. COMPARISON: Chest x-ray 11/08/18 [id number] FINDINGS: Lungs: Hypoventilatory lungs. Elevated right hemidiaphragm. Slightly improved vascular congestion. Similar bibasilar lung atelectasis and airspace disease. Pleural space: Query right pleural effusion. No pneumothorax. Heart: Unremarkable. No cardiomegaly. Mediastinum: Unremarkable. Bones/joints: Unremarkable. Tubes, lines and devices: Stable tracheostomy tube. Stable left PICC line. IMPRESSION: 1. Hypoventilatory lungs. Elevated right hemidiaphragm. Slightly improved vascular congestion. Similar bibasilar lung atelectasis and airspace disease. 2. Query right pleural effusion.
--- NOTE | 2018-11-11 09:59 | Diagnostic Imaging Report ---
EXAM: XR Sacrum and Coccyx, 2 or more Views CLINICAL HISTORY: OSTEOMY TECHNIQUE: Frontal and lateral views of the sacrum and coccyx. COMPARISON: No relevant prior studies available. FINDINGS: Sacrum/coccyx: Somewhat limited AP views due to overlying bowel. Lateral view unremarkable.. Vertebrae: Visualized lumbar vertebrae are unremarkable. Soft tissues: Unremarkable. Gastrointestinal tract: Moderate stool and gas in the colon. Large amount stool in the rectum. IMPRESSION: 1. Somewhat limited AP views due to overlying bowel. Lateral view unremarkable. 2. Moderate stool and gas in the colon. Large amount stool in the rectum.
--- NOTE | 2018-11-11 11:56 | General Progress Note ---
Assessment/Plan Status: stable Assessment/Plan: Assessment - Iron deficiency anemia - abnormal LFT - ? meds, passive congestion , other - dysphagia, s/p GT - Resp, failure, s/p Trach Recommendations - Continue TF - Monitor LFT - IV Iron - follow CBC - Conservative approach given poor health Subjective Allergies: Coded Allergies: Crayfish (Unverified Allergy, Unknown, 11/11/18) Uncoded Allergies: Crawfish (Allergy, Unknown, 11/09/18) Subjective above noted obtunded Objective Last 24 Hour Vital Signs Date Time Temp Pulse Resp B/P (MAP) Pulse Ox O2 Delivery O2 Flow Rate FiO2 11/11/18 09:17 92 16 Mechanical Ventilator 30 11/11/18 08:09 89 128/73 11/11/18 08:00 87 11/11/18 08:00 98.2 89 17 128/73 (91) 100 11/11/18 08:00 Mechanical Ventilator 11/11/18 08:00 30.0 11/11/18 07:46 91 16 98 Mechanical Ventilator 30 90 20 11/11/18 06:00 128/64 11/11/18 05:19 90 18 30 11/11/18 05:07 79 145/76 11/11/18 04:00 98.0 79 20 145/76 (99) 100 11/11/18 04:00 30.0 11/11/18 04:00 Mechanical Ventilator 11/11/18 04:00 91 11/11/18 03:14 93 16 30 11/11/18 01:32 87 19 30 11/11/18 00:00 97.9 89 20 115/63 (80) 100 11/11/18 00:00 Mechanical Ventilator 11/11/18 00:00 30.0 11/11/18 00:00 88 11/10/18 23:38 89 21 30 11/10/18 21:59 100/60 11/10/18 21:22 90 20 30 11/10/18 21:04 94 126/69 11/10/18 20:00 91 11/10/18 20:00 98.1 94 20 126/69 (88) 100 11/10/18 20:00 Mechanical Ventilator 11/10/18 20:00 30.0 11/10/18 19:27 94 23 100 Mechanical Ventilator 30 94 21 30 11/10/18 19:12 93 16 100 Mechanical Ventilator 30 11/10/18 17:02 93 24 30 11/10/18 16:00 95 11/10/18 16:00 30.0 11/10/18 16:00 98.2 93 22 119/70 (86) 100 11/10/18 16:00 Mechanical Ventilator 11/10/18 15:58 93 25 30 11/10/18 13:39 98 109/70 11/10/18 13:39 109/70 11/10/18 13:34 98 14 100 Mechanical Ventilator 30 11/10/18 13:21 99 27 100 Mechanical Ventilator 30 11/10/18 13:20 98 23 30 11/10/18 12:00 98.4 99 22 109/70 (83) 100 11/10/18 12:00 95 11/10/18 12:00 Mechanical Ventilator 11/10/18 12:00 30.0 11/10/18 11:56 98 27 30 Intake and Output 11/10/18 11/11/18 19:00 07:00 Intake Total 330 ml 410.0 ml Output Total 355 ml 400 ml Balance -25 ml 10.0 ml Intake Free Water 50 ml IV Total 110.0 ml Tube Feeding 330 ml 250 ml Output Urine Total 355 ml 400 ml Laboratory Tests 11/11/18 04:30: White Blood Count 8.2, Red Blood Count 3.66L, Hemoglobin 9.2L, Hematocrit 28.5L , Mean Corpuscular Volume 78L, Mean Corpuscular Hemoglobin 25.1L, Mean Corpuscular Hemoglobin Concent 32.2, Red Cell Distribution Width 23.6H, Platelet Count 346, Mean Platelet Volume 6.3L, Neutrophils (%) (Auto) 71.5, Lymphocytes (%) (Auto) 14.5L, Monocytes (%) (Auto) 8.4, Eosinophils (%) (Auto) 5.0H, Basophils (%) (Auto) 0.5, Sodium Level 136, Potassium Level 3.4L, Chloride Level 100, Carbon Dioxide Level 31, Anion Gap 5, Blood Urea Nitrogen 15 , Creatinine 0.4L, Estimat Glomerular Filtration Rate , Glucose Level 113H, Calcium Level 8.2L, Iron Level 19L, Total Iron Binding Capacity 140L, Percent Iron Saturation 14L, Unsaturated Iron Binding 121, Total Bilirubin 0.2, Aspartate Amino Transf (AST/SGOT) 108H, Alanine Aminotransferase (ALT/SGPT) 109H , Alkaline Phosphatase 205H, Total Protein 6.2L, Albumin 1.4L, Globulin 4.8, Albumin/Globulin Ratio 0.3L, Carcinoembryonic Antigen [Pending], Vitamin B12 Level 483, Folate 13.2, Free Thyroxine 1.07 11/11/18 08:15: Prothrombin Time 11.3, Prothromb Time International Ratio 1.1 Height (Feet): 5 Height (Inches): 8.00 Weight (Pounds): 174 Objective Debilitated AA woman NCAT swollen lips and tongue (+) trach Coarse BS RR abd Soft (+) GT (+) dressing on feet Muriel Thomas MD Nov 11, 2018 11:56
[2018-11-11 12:00] VITALS: BP 121/69
--- NOTE | 2018-11-11 12:26 | Surgery Progress Note ---
Surgery Progress Note Subjective Additional Comments no acute events exam unchanged Objective Last 24 Hour Vital Signs Date Time Temp Pulse Resp B/P (MAP) Pulse Ox O2 Delivery O2 Flow Rate FiO2 11/11/18 12:00 Mechanical Ventilator 11/11/18 12:00 30.0 11/11/18 11:46 90 11/11/18 11:20 90 16 Mechanical Ventilator 30 11/11/18 09:17 92 16 Mechanical Ventilator 30 11/11/18 08:09 89 128/73 11/11/18 08:00 87 11/11/18 08:00 98.2 89 17 128/73 (91) 100 11/11/18 08:00 Mechanical Ventilator 11/11/18 08:00 30.0 11/11/18 07:46 91 16 98 Mechanical Ventilator 30 90 20 11/11/18 06:00 128/64 11/11/18 05:19 90 18 30 11/11/18 05:07 79 145/76 11/11/18 04:00 98.0 79 20 145/76 (99) 100 11/11/18 04:00 30.0 11/11/18 04:00 Mechanical Ventilator 11/11/18 04:00 91 11/11/18 03:14 93 16 30 11/11/18 01:32 87 19 30 11/11/18 00:00 97.9 89 20 115/63 (80) 100 11/11/18 00:00 Mechanical Ventilator 11/11/18 00:00 30.0 11/11/18 00:00 88 11/10/18 23:38 89 21 30 11/10/18 21:59 100/60 11/10/18 21:22 90 20 30 11/10/18 21:04 94 126/69 11/10/18 20:00 91 11/10/18 20:00 98.1 94 20 126/69 (88) 100 11/10/18 20:00 Mechanical Ventilator 11/10/18 20:00 30.0 11/10/18 19:27 94 23 100 Mechanical Ventilator 30 94 21 30 11/10/18 19:12 93 16 100 Mechanical Ventilator 30 11/10/18 17:02 93 24 30 11/10/18 16:00 95 11/10/18 16:00 30.0 11/10/18 16:00 98.2 93 22 119/70 (86) 100 11/10/18 16:00 Mechanical Ventilator 11/10/18 15:58 93 25 30 11/10/18 13:39 98 109/70 11/10/18 13:39 109/70 11/10/18 13:34 98 14 100 Mechanical Ventilator 30 11/10/18 13:21 99 27 100 Mechanical Ventilator 30 11/10/18 13:20 98 23 30 I&O Intake and Output 11/10/18 11/11/18 19:00 07:00 Intake Total 330 ml 410.0 ml Output Total 355 ml 400 ml Balance -25 ml 10.0 ml Intake Free Water 50 ml IV Total 110.0 ml Tube Feeding 330 ml 250 ml Output Urine Total 355 ml 400 ml Dressing: saturated Wound: other Drains: other Cardiovascular: RSR, other Respiratory: decreased breath sounds Abdomen: soft, present bowel sounds, non-distended Extremities: no tenderness, no cyanosis Laboratory Tests Test 11/11/18 04:30 11/11/18 08:15 White Blood Count 8.2 K/UL (4.8-10.8) Red Blood Count 3.66 M/UL (4.20-5.40) L Hemoglobin 9.2 G/DL (12.0-16.0) L Hematocrit 28.5 % (37.0-47.0) L Mean Corpuscular Volume 78 FL (80-99) L Mean Corpuscular Hemoglobin 25.1 PG (27.0-31.0) L Mean Corpuscular Hemoglobin Concent 32.2 G/DL (32.0-36.0) Red Cell Distribution Width 23.6 % (11.6-14.8) H Platelet Count 346 K/UL (150-450) Mean Platelet Volume 6.3 FL (6.5-10.1) L Neutrophils (%) (Auto) 71.5 % (45.0-75.0) Lymphocytes (%) (Auto) 14.5 % (20.0-45.0) L Monocytes (%) (Auto) 8.4 % (1.0-10.0) Eosinophils (%) (Auto) 5.0 % (0.0-3.0) H Basophils (%) (Auto) 0.5 % (0.0-2.0) Sodium Level 136 MMOL/L (136-145) Potassium Level 3.4 MMOL/L (3.5-5.1) L Chloride Level 100 MMOL/L (98-107) Carbon Dioxide Level 31 MMOL/L (21-32) Anion Gap 5 mmol/L (5-15) Blood Urea Nitrogen 15 mg/dL (7-18) Creatinine 0.4 MG/DL (0.55-1.30) L Estimat Glomerular Filtration Rate mL/min (>60) Glucose Level 113 MG/DL (74-106) H Calcium Level 8.2 MG/DL (8.5-10.1) L Iron Level 19 ug/dL (50-175) L Total Iron Binding Capacity 140 ug/dL (250-450) L Percent Iron Saturation 14 % (15-50) L Unsaturated Iron Binding 121 ug/dL (112-346) Total Bilirubin 0.2 MG/DL (0.2-1.0) Aspartate Amino Transf (AST/SGOT) 108 U/L (15-37) H Alanine Aminotransferase (ALT/SGPT) 109 U/L (12-78) H Alkaline Phosphatase 205 U/L (46-116) H Total Protein 6.2 G/DL (6.4-8.2) L Albumin 1.4 G/DL (3.4-5.0) L Globulin 4.8 g/dL Albumin/Globulin Ratio 0.3 (1.0-2.7) L Carcinoembryonic Antigen Pending Vitamin B12 Level 483 PG/ML (193-986) Folate 13.2 NG/ML (8.6-58.9) Free Thyroxine 1.07 NG/DL (0.76-1.46) Prothrombin Time 11.3 SEC (9.30-11.50) Prothromb Time International Ratio 1.1 (0.9-1.1) Plan Problems: (1) Fever (2) Tongue abnormality Assessment & Plan: patients jaw clenched closed and tongue has been stuck for some time. tongue split from middle teeth and now in two. edema and unable to reduce keep tongue moist. apply lube jelly prn dryness. will monitor do not recommend surgical intervention for this current medical condition (3) Tracheostomy dependence (4) Sepsis Assessment & Plan: gb no stones 6mm polyp no acute surgical intervention planned trend labs DAILY ESTIMATED NEEDS: Needs based on Critical care, sepsis, wound 60kg adj 22-30 kcals/kg 1220-5990 total kcals 1.25-2 g protein/kg 75-120 g total protein Fluid per MD, on lasix NUTRITION DIAGNOSIS: * Swallowing difficulty r/t respiratory status as evidenced by pt is vent dep via trach and PEG dep. * Increased kcal and pro needs r/t wound healing and sepsis as evidenced by pt w/ sacral and R heel wounds, febrile (Tmax 101.5). CURRENT TF: Jevity 1.2 @50 ml/hr x16 hrs ENTERAL NUTRITION RECOMMENDATIONS: Glucerna 1.2 @65ml/hr x18 hrs + Prosource x1 daily to provide 1170ml, 1404 kcal, 70g pro + 11g pro, 942 free H2O - REC TF CHANGE AND INCREASE TO BETTER MEET EST NEEDS - TF TO BE HELD FOR ONE HR BEFORE AND AFTER DILANTIN MEDS - START @20ML/HR, ADVANCE TOLERATED 15ML/HR Q4-6 HRS TO GOAL - FLUSH PER MD, HOB OVRE 30 DEGREES ADDITIONAL RECOMMENDATIONS: 1) CALIBRATED BED SCALE W/ ADDED P200 MATTRESS + PUMP 2) ON LASIX, MONITOR LYTES AND HYDRATION STATUS DAILY 3) TF TO RUN A MAX OF 18 HRS/DAY W/ DILANTIN TID PER PHARMACY 4) REC TF CHANGE TO CARB CONTROL FORMULA 5) WOUND CARE: ADD CHAYITO BID + VIT C 250MG DAILY (5) Fever (6) Decubitus skin ulcer Assessment & Plan: Pt presented on admission with full thickness sacral pressure injury.Base of wound is 20% necrotic , 80% slough. borders are macerated . Mild odor noted. (L)8.4cm x (W) 6.5cm. Periwound skin tone is darker without erythema,induration or elevation in skin temp. Both heels are non -blanchable and both are fluctuant when palpated. Tx.Plan: Clean wound with saline. Apply Therahoney. Aply Moisture Barrier paste periwound. Cover with Optifoam drsg. Change every 3 days and prn. Apply Cavilon Skin BArrier to both heels. Cover each heel with Optifoam drsg. Change every 7 days and prn. APM/DEIRDRE mattress overlay. Reposition at least every 2hours or as tolerated. Off-load heels with pillow. will follow with recs thank you Preet Hylton Nov 11, 2018 12:26
--- NOTE | 2018-11-11 12:52 | General Progress Note ---
Assessment/Plan Status: stable Assessment/Plan: 78-year-old female who is trach dependent who [facility] and found to have UTI. #Sepsis secondary to UTI, GPC bacteremia ID consult appreciate Rec Continue antibiotics per ID: Continue Zosyn and vancomycin Repeat blood cultures Echo to eval for vegetation negative sputum cultures Chest x-ray reviewed: Atelectasis # Transaminitis - trend lft's - GI consult, appreciate reqs - ab us: reviewed - f/u hep panel #Elevated troponin secondary to sepsis versus ACS Cardiology consult, appreciate recs Medications per cardiology #Hypertension- improved Continue current medications, hydralazine as needed hypertension #Vent dependent Pulmonary consult, appreciate recs Vent management per pulmonary #Hypokalemia Replace, continue to monitor Time of note may not reflect time of patient encounter Pulsed reviewed: Full code Subjective Date patient seen: Nov 11, 2018 Allergies: Coded Allergies: Crayfish (Unverified Allergy, Unknown, 11/11/18) Uncoded Allergies: Crawfish (Allergy, Unknown, 11/09/18) Subjective Unable to obtain ROS secondary to medical condition. No acute events, nursing notes reviewed. Objective Last 24 Hour Vital Signs Date Time Temp Pulse Resp B/P (MAP) Pulse Ox O2 Delivery O2 Flow Rate FiO2 11/11/18 12:00 Mechanical Ventilator 11/11/18 12:00 30.0 11/11/18 12:00 98.2 92 20 121/69 (86) 100 11/11/18 11:46 90 11/11/18 11:20 90 16 Mechanical Ventilator 30 11/11/18 09:17 92 16 Mechanical Ventilator 30 11/11/18 08:09 89 128/73 11/11/18 08:00 87 11/11/18 08:00 98.2 89 17 128/73 (91) 100 11/11/18 08:00 Mechanical Ventilator 11/11/18 08:00 30.0 11/11/18 07:46 91 16 98 Mechanical Ventilator 30 90 20 11/11/18 06:00 128/64 11/11/18 05:19 90 18 30 11/11/18 05:07 79 145/76 11/11/18 04:00 98.0 79 20 145/76 (99) 100 11/11/18 04:00 30.0 11/11/18 04:00 Mechanical Ventilator 11/11/18 04:00 91 11/11/18 03:14 93 16 30 11/11/18 01:32 87 19 30 11/11/18 00:00 97.9 89 20 115/63 (80) 100 11/11/18 00:00 Mechanical Ventilator 11/11/18 00:00 30.0 11/11/18 00:00 88 11/10/18 23:38 89 21 30 11/10/18 21:59 100/60 11/10/18 21:22 90 20 30 11/10/18 21:04 94 126/69 11/10/18 20:00 91 11/10/18 20:00 98.1 94 20 126/69 (88) 100 11/10/18 20:00 Mechanical Ventilator 11/10/18 20:00 30.0 11/10/18 19:27 94 23 100 Mechanical Ventilator 30 94 21 30 11/10/18 19:12 93 16 100 Mechanical Ventilator 30 11/10/18 17:02 93 24 30 11/10/18 16:00 95 11/10/18 16:00 30.0 11/10/18 16:00 98.2 93 22 119/70 (86) 100 11/10/18 16:00 Mechanical Ventilator 11/10/18 15:58 93 25 30 11/10/18 13:39 98 109/70 11/10/18 13:39 109/70 11/10/18 13:34 98 14 100 Mechanical Ventilator 30 11/10/18 13:21 99 27 100 Mechanical Ventilator 30 11/10/18 13:20 98 23 30 Intake and Output 11/10/18 11/11/18 18:59 06:59 Intake Total 320 ml 460.0 ml Output Total 355 ml 400 ml Balance -35 ml 60.0 ml Intake Free Water 50 ml IV Total 110.0 ml Tube Feeding 320 ml 300 ml Output Urine Total 355 ml 400 ml Laboratory Tests 11/11/18 04:30: White Blood Count 8.2, Red Blood Count 3.66L, Hemoglobin 9.2L, Hematocrit 28.5L , Mean Corpuscular Volume 78L, Mean Corpuscular Hemoglobin 25.1L, Mean Corpuscular Hemoglobin Concent 32.2, Red Cell Distribution Width 23.6H, Platelet Count 346, Mean Platelet Volume 6.3L, Neutrophils (%) (Auto) 71.5, Lymphocytes (%) (Auto) 14.5L, Monocytes (%) (Auto) 8.4, Eosinophils (%) (Auto) 5.0H, Basophils (%) (Auto) 0.5, Sodium Level 136, Potassium Level 3.4L, Chloride Level 100, Carbon Dioxide Level 31, Anion Gap 5, Blood Urea Nitrogen 15 , Creatinine 0.4L, Estimat Glomerular Filtration Rate , Glucose Level 113H, Calcium Level 8.2L, Iron Level 19L, Total Iron Binding Capacity 140L, Percent Iron Saturation 14L, Unsaturated Iron Binding 121, Total Bilirubin 0.2, Aspartate Amino Transf (AST/SGOT) 108H, Alanine Aminotransferase (ALT/SGPT) 109H , Alkaline Phosphatase 205H, Total Protein 6.2L, Albumin 1.4L, Globulin 4.8, Albumin/Globulin Ratio 0.3L, Carcinoembryonic Antigen [Pending], Vitamin B12 Level 483, Folate 13.2, Free Thyroxine 1.07 11/11/18 08:15: Prothrombin Time 11.3, Prothromb Time International Ratio 1.1 Height (Feet): 5 Height (Inches): 8.00 Weight (Pounds): 174 Objective GENERAL: No acute distress, appears comfortable, alert HEENT: NCAT, non-icteric eyes, congenital tongue deformity Neck: Tracheostomy CV: Regular rate and rhythm, no murmurs rubs or gallops RESP: Clear to auscultation bilaterally, no wheezes/rhonchi/crackles ABD: soft, non-distended, no TTP EXT: Normal muscle tone, +5/5 muscle strength NEURO: No obvious deficits, alert and oriented x3 Jennifer Belle DO Nov 11, 2018 12:52
[2018-11-11] MEDS ORDERED: Tubing IV Secondary IV ONE (15:50)
[2018-11-11] MEDS ORDERED: NS 275ml ONE (15:50)
[2018-11-11 16:00] VITALS: BP 115/62
[2018-11-11] MEDS: Vancomycin 1.25gm/NS Premix IVPB SCH (17:55)
[2018-11-11] MEDS ORDERED: Vancomycin 1gm/D5W 275ml IVPB SCH ×2 (18:00)
--- NOTE | 2018-11-11 19:04 | NUR ---
HAND-OFF: Report given to CHARLEE Harris. Patient in stable condition.
--- NOTE | 2018-11-11 19:10 | NUR ---
NURSE NOTES: Received report from Radha RN, pt. in bed obtunded, opens eyes but non-verbal, threat monitoring analyst on, no signs or symptoms of acute cardiac or respiratory distress noted, bed in lowest position and call light within easy reach, bed alarm on, side rails x's3 and safety brakes engaged, pt. appears to be tolerating current vent settings well- AC 14, TV 375, Fio2 @30% and peep 5- no distress noted, Jevity 1.2 running via G tube at 50cc/hr- no residual noted- Feeding will be held now before Dilantin administration, pt. appears to be comfortable and is clean and dry, HANNAH PICC intact and patent, safety measures continued, will continue with plan of care.
[2018-11-11 20:00] VITALS: BP 126/70
[2018-11-11] MEDS: Iron Sucrose 100 MG in NS 55 ML IVPB SCH (20:12)
[2018-11-11] MEDS: Dyna-Hex 2% Top Sol 2oz TOPIC SCH (20:12)
[2018-11-11] MEDS: Acetaminophen 650mg/20.3ml GT PRN (20:13)
--- NOTE | 2018-11-11 21:40 | Pulmonology Progress Note ---
Assessment/Plan Assessment/Plan (1) Ventilator dependence (2) Tracheostomy dependence (3) UTI (urinary tract infection) (4) Fever (5) Anoxic brain damage (6) Tongue abnormality (7) Seizure disorder (8) Colon adenocarcinoma (9) HTN (hypertension) (10) Sepsis (11) Diabetes (12) Abnormal LFTs (13) Protein calorie malnutrition (14) Gastrostomy in place (15) senior living resident Assessment/Plan Continue ventilatory support/settings reviewed pt is not weanable Titrate down FiO2 to keep SaO2 > 90% Optimize pulmonary hygiene/mobilize as tolerated RTC and PRN HHN's Abx (Zosyn) per ID, F/U Cx's F/U cards recs Monitor volumes and renal function, PRN IVF DVT Px: LMWH FC, continue to discuss GOC Wound care Subjective ROS Limited/Unobtainable: Yes Allergies: Coded Allergies: Crayfish (Unverified Allergy, Unknown, 11/11/18) Uncoded Allergies: Crawfish (Allergy, Unknown, 11/09/18) Subjective obtunded on the vent trach and peg no bleeding copious oral secretions Objective Last 24 Hour Vital Signs Date Time Temp Pulse Resp B/P (MAP) Pulse Ox O2 Delivery O2 Flow Rate FiO2 11/11/18 21:01 93 126/70 11/11/18 20:43 99.1 11/11/18 20:43 99.1 11/11/18 20:40 93 19 Mechanical Ventilator 30 11/11/18 20:00 100.8 98 24 126/70 (88) 100 11/11/18 20:00 94 11/11/18 20:00 30.0 11/11/18 20:00 Mechanical Ventilator 11/11/18 19:44 94 11/11/18 19:29 95 24 100 Mechanical Ventilator 30 95 24 30 11/11/18 17:07 92 16 98 Mechanical Ventilator 30 90 20 11/11/18 16:00 99.1 93 24 115/62 (79) 98 11/11/18 16:00 Mechanical Ventilator 11/11/18 16:00 30.0 11/11/18 15:31 93 11/11/18 15:15 91 16 98 Mechanical Ventilator 30 90 20 11/11/18 14:23 94 133/85 11/11/18 14:23 133/85 11/11/18 13:11 94 16 98 Mechanical Ventilator 30 90 20 11/11/18 12:00 Mechanical Ventilator 11/11/18 12:00 30.0 11/11/18 12:00 98.2 92 20 121/69 (86) 100 11/11/18 11:46 90 11/11/18 11:20 90 16 Mechanical Ventilator 30 11/11/18 09:17 92 16 Mechanical Ventilator 30 11/11/18 08:09 89 128/73 11/11/18 08:00 87 11/11/18 08:00 98.2 89 17 128/73 (91) 100 11/11/18 08:00 Mechanical Ventilator 11/11/18 08:00 30.0 11/11/18 07:46 91 16 98 Mechanical Ventilator 30 90 20 11/11/18 06:00 128/64 11/11/18 05:19 90 18 30 11/11/18 05:07 79 145/76 11/11/18 04:00 98.0 79 20 145/76 (99) 100 11/11/18 04:00 30.0 11/11/18 04:00 Mechanical Ventilator 11/11/18 04:00 91 11/11/18 03:14 93 16 30 11/11/18 01:32 87 19 30 11/11/18 00:00 97.9 89 20 115/63 (80) 100 11/11/18 00:00 Mechanical Ventilator 11/11/18 00:00 30.0 11/11/18 00:00 88 11/10/18 23:38 89 21 30 11/10/18 21:59 100/60 Intake and Output 11/10/18 11/11/18 19:00 07:00 Intake Total 330 ml 410.0 ml Output Total 355 ml 400 ml Balance -25 ml 10.0 ml Intake Free Water 50 ml IV Total 110.0 ml Tube Feeding 330 ml 250 ml Output Urine Total 355 ml 400 ml General Appearance: WD/WN HEENT: status post trach Respiratory/Chest: rhonchi Cardiovascular: normal rate, regular rhythm, edema Abdomen: soft, non tender, no organomegaly Skin: lesions Neurologic/Psychiatric: disoriented, unresponsiveness Microbiology Date/Time Source Procedure Growth Status 11/08/18 23:20 Blood Blood Culture - Preliminary Staphylococcus Sp Coag Neg Resulted 11/08/18 23:10 Blood Blood Culture - Preliminary Staphylococcus Sp Coag Neg Resulted 11/09/18 05:38 Sputum Induced Gram Stain - Final Resulted 11/09/18 05:38 Sputum Culture - Preliminary Gram Negative Ronaldo Usual Respiratory Carmita Resulted 11/08/18 23:10 Nasal Nares MRSA Culture - Final NO METHICILLIN RESISTANT STAPH AUREUS... Complete 11/09/18 02:05 Urine,Clean Catch Urine Culture - Final Enterococcus Faecalis Complete 11/08/18 23:10 Rectum - Final NO CARBAPENEM-RESISTANT ENTEROBACTERI... Complete 11/08/18 23:10 Rectum VRE Culture - Final Enterococcus Faecalis - Vre Complete Laboratory Tests 11/11/18 04:30: White Blood Count 8.2, Red Blood Count 3.66L, Hemoglobin 9.2L, Hematocrit 28.5L , Mean Corpuscular Volume 78L, Mean Corpuscular Hemoglobin 25.1L, Mean Corpuscular Hemoglobin Concent 32.2, Red Cell Distribution Width 23.6H, Platelet Count 346, Mean Platelet Volume 6.3L, Neutrophils (%) (Auto) 71.5, Lymphocytes (%) (Auto) 14.5L, Monocytes (%) (Auto) 8.4, Eosinophils (%) (Auto) 5.0H, Basophils (%) (Auto) 0.5, Sodium Level 136, Potassium Level 3.4L, Chloride Level 100, Carbon Dioxide Level 31, Anion Gap 5, Blood Urea Nitrogen 15 , Creatinine 0.4L, Estimat Glomerular Filtration Rate , Glucose Level 113H, Calcium Level 8.2L, Iron Level 19L, Total Iron Binding Capacity 140L, Percent Iron Saturation 14L, Unsaturated Iron Binding 121, Total Bilirubin 0.2, Aspartate Amino Transf (AST/SGOT) 108H, Alanine Aminotransferase (ALT/SGPT) 109H , Alkaline Phosphatase 205H, Total Protein 6.2L, Albumin 1.4L, Globulin 4.8, Albumin/Globulin Ratio 0.3L, Carcinoembryonic Antigen [Pending], Vitamin B12 Level 483, Folate 13.2, Free Thyroxine 1.07 11/11/18 08:15: Prothrombin Time 11.3, Prothromb Time International Ratio 1.1 Current Medications Medications (Trade) Dose Ordered Sig/Lupe Route PRN Reason Start Time Stop Time Status Last Admin Dose Admin Acetaminophen (Tylenol) 650 mg Q4H PRN GT Mild Pain/Temp > 100.5 11/09/18 05:00 12/09/18 04:59 11/11/18 20:13 Albuterol/ Ipratropium (Albuterol/ Ipratropium) 3 ml Q4H PRN HHN Shortness of Breath 11/09/18 16:15 11/14/18 16:14 Albuterol/ Ipratropium (Albuterol/ Ipratropium) 3 ml Q6HRT HHN 11/09/18 19:00 11/14/18 18:59 11/11/18 19:30 Amlodipine Besylate (Norvasc) 10 mg DAILY GT 11/09/18 09:00 12/09/18 08:59 11/11/18 08:09 Bisacodyl (Dulcolax) 10 mg DAILY PRN RECTAL Constipation 11/09/18 05:00 12/09/18 04:59 Calcium Carbonate (Tums) 500 mg EVERY 8 HOURS GT 11/09/18 14:00 12/09/18 08:59 11/11/18 21:01 Chlorhexidine Gluconate (Corazon-Hex 2%) 1 applic DAILY@2000 TOPIC 11/09/18 20:00 12/09/18 19:59 11/11/18 20:12 Dextrose (Dextrose 50%) 25 ml Q30M PRN IV Hypoglycemia 11/09/18 04:45 12/09/18 04:44 Dextrose (Dextrose 50%) 50 ml Q30M PRN IV Hypoglycemia 11/09/18 04:45 12/09/18 04:44 11/09/18 09:09 Enoxaparin Sodium (Lovenox) 40 mg DAILY SUBQ 11/09/18 09:00 12/09/18 08:59 11/11/18 08:41 Famotidine (Pepcid) 20 mg EVERY 12 HOURS GT 11/09/18 21:00 12/09/18 08:59 11/11/18 20:13 Furosemide (Lasix) 40 mg EVERY 12 HOURS GT 11/09/18 09:00 12/09/18 08:59 11/11/18 20:13 Hydralazine HCl (Apresoline) 5 mg EVERY 8 HOURS GT 11/09/18 06:00 12/09/18 05:59 11/11/18 14:23 Insulin Aspart (NovoLOG) Q6HR SUBQ 11/09/18 06:00 12/09/18 05:59 11/11/18 11:53 Insulin Detemir (Levemir) 6 units BID SUBQ 11/09/18 09:00 12/09/18 08:59 11/11/18 17:59 Iron Sucrose 100 mg/Sodium Chloride 60 ml @ 240 mls/hr BEDTIME IVPB 11/11/18 21:00 11/15/18 21:14 11/11/18 20:12 Labetalol HCl (Normodyne) 200 mg Q8HR GT 11/09/18 06:00 12/09/18 05:59 11/11/18 21:01 Levetiracetam (Keppra) 1,500 mg Q12HR GT 11/09/18 09:00 12/09/18 08:59 11/11/18 20:14 Lorazepam (Ativan 2mg/ml 1ml) 2 mg DAILY PRN IVP For Seizures 11/09/18 05:00 11/16/18 04:59 Magnesium Hydroxide (Mom) 30 ml DAILY PRN GT Constipation 11/09/18 05:00 12/09/18 04:59 Magnesium Oxide (Mag-Ox 400mg) 400 mg EVERY 8 HOURS GT 11/09/18 14:00 12/09/18 08:59 11/11/18 21:01 Ondansetron HCl (Zofran) 4 mg Q6H PRN GT Nausea & Vomiting 11/09/18 05:00 12/09/18 04:59 Phenobarbital (PHENobarbital) 60 mg BID GT 11/09/18 09:00 12/09/18 08:59 11/11/18 17:48 Phenytoin (Dilantin) 100 mg Q8HR GT 11/09/18 06:00 12/09/18 05:59 11/11/18 21:00 Piperacillin Sod/ Tazobactam Sod 3.375 gm/Sodium Chloride 110 ml @ 27.5 mls/hr Q8H IVPB 11/09/18 06:00 11/16/18 05:59 11/11/18 21:02 Sennosides (Senokot) 8.6 mg EVERY 12 HOURS GT 11/09/18 21:00 12/09/18 08:59 11/11/18 20:13 Valproic Acid (Depakene) 500 mg EVERY 8 HOURS GT 11/09/18 06:00 12/09/18 05:59 11/11/18 21:00 Vancomycin HCl (Vanco rx to dose) 1 ea DAILY PRN MISC Per rx protocol 11/10/18 16:45 12/10/18 16:44 Vancomycin/Sodium Chloride 275 ml @ 183.333 mls/hr Q24H IVPB 11/11/18 18:00 11/16/18 17:59 11/11/18 17:55 Ashley Salomon DO Nov 11, 2018 21:40
[2018-11-12] VITALS: BP 122/69
[2018-11-12] MEDS: Albuterol/Ipratropium 3ml neb HHN SCH ×4 (01:07→19:43)
--- NOTE | 2018-11-12 03:42 | NUR ---
HAND-OFF: Report given to Jeison DESHPADNE, pt. remains stable and no signs and symptoms of distress noted. No seizure acitivity noted.
--- NOTE | 2018-11-12 03:54 | NUR ---
NURSE NOTES: Report received from CHARLEE Goff. Observed pt sleeping in the bed. No signs of change in condition. SR with print manager. Tolerating well current vent setting, saturating at 99%. No signs of acute distress noted at this time. Will continue to monitor.
[2018-11-12 04:00] VITALS: BP 107/60
[2018-11-12] MEDS: Piperacillin/Tazobactam 3.375 GM in NS 110 ML IVPB SCH ×3 (05:22→21:12)
[2018-11-12] MEDS: Tums 500mg GT SCH ×3 (05:23→21:13)
[2018-11-12] MEDS: Phenytoin Susp 100mg/4ml GT SCH ×3 (05:23→21:12)
[2018-11-12] MEDS: Valproic Acid 250mg/5ml Liquid GT SCH ×3 (05:23→21:13)
[2018-11-12] MEDS: Magnesium Oxide 400mg tab GT SCH ×3 (05:23→21:13)
[2018-11-12] MEDS: NovoLOG Insulin Flexpen SUBQ SCH ×4 (05:25→23:03)
[2018-11-12] MEDS: Labetalol 200mg tab GT SCH ×3 (05:25→21:12)
[2018-11-12] MEDS: HydrALAZINE 10mg Tab GT SCH ×3 (05:25→21:59)
[2018-11-12 05:38] LABS: BASOPHILS % (AUTO) 0.3 % (0.0-2.0); EOSINOPHILS % (AUTO) 6.3 % (0.0-3.0); HEMATOCRIT 26.6 % (37.0-47.0); HEMOGLOBIN 8.6 G/DL (12.0-16.0); LYMPHOCYTES % (AUTO) 11.6 % (20.0-45.0); MEAN CORPUSCULAR VOLUME 78 FL (80-99); MONOCYTES % (AUTO) 7.2 % (1.0-10.0); NEUTROPHILS % (AUTO) 74.6 % (45.0-75.0); PLATELET COUNT 367 K/UL (150-450); RED BLOOD COUNT 3.42 M/UL (4.20-5.40); RED CELL DISTRIBUTION WIDTH 23.9 % (11.6-14.8); WHITE BLOOD COUNT 7.3 K/UL (4.8-10.8)
--- NOTE | 2018-11-12 06:50 | NUR ---
RESPIRATORY NOTE: Received pt on current vent settings: AC 14-375ml-30%FiO2-peep 5. Pt is trach dependent with trach Shiley cuffed 8.0, secured with trach tie. Pt is stable in condition,obtunded, unable to follows commands. Noticed a small wound below the right side of the trach, covered with wound tape. RN Radha aware. Juan rhonchi breath sounds heard upon auscultation, suctioned small amount of thin/thick mccauley yellow secretions without incidents. Breathing TX Duoneb given without any adverse reactions. No SOB or resp distress noted. Alarms are set and audible, vent is plugged into the red outlet, ambu bag and spare trach kit at bedside. will continue to monitor and suction q2h and as needed.
[2018-11-12 06:56] LABS: ALANINE AMINOTRANSFERASE 85 U/L (12-78); ALBUMIN 1.1 G/DL (3.4-5.0); ALBUMIN/GLOBULIN RATIO 0.3 (1.0-2.7); ALKALINE PHOSPHATASE 174 U/L (46-116); ANION GAP 7 mmol/L (5-15); ASPARTATE AMINO TRANSFERASE 81 U/L (15-37); BILIRUBIN,TOTAL 0.2 MG/DL (0.2-1.0); BLOOD UREA NITROGEN 15 mg/dL (7-18); CALCIUM 7.4 MG/DL (8.5-10.1); CARBON DIOXIDE 30 MMOL/L (21-32); CHLORIDE 105 MMOL/L (98-107); CREATININE 0.4 MG/DL (0.55-1.30); POTASSIUM 3.3 MMOL/L (3.5-5.1); SODIUM 142 MMOL/L (136-145)
--- NOTE | 2018-11-12 07:10 | NUR ---
HAND-OFF: Report given to CHARLEE Galaviz. No acute distress noted.
--- NOTE | 2018-11-12 07:11 | NUR ---
NURSE NOTES: Received report from CHARLEE Medel. Observed patient in bed, asleep. Pt nonverbal, on trach-vent with settings AC 14, TV375, FiO2 30%, and PEEP 5. No acute respiratory distress noted at this time. PICC line left upper arm intact and patent. GT intact and patent with feeding infusing at prescribed rate. HOB elevated. Ospina catheter intact and draining well to gravity. No s/s of pain/distress noted at this time. Safety precautions in place, bed locked, alarmed, and in lowest position, padded side rails up x3, and call light left within reach. Will continue with plan of care.
[2018-11-12 08:00] VITALS: BP 124/73
[2018-11-12] MEDS: Sennosides 8.6mg tab GT SCH ×2 (08:44→20:22)
[2018-11-12] MEDS: Furosemide 40mg tab GT SCH ×2 (08:45→20:22)
[2018-11-12] MEDS: PHENobarbital Elixir 30mg/7.5ml GT SCH ×2 (08:45→17:31)
[2018-11-12] MEDS: levETIRAcetam 500mg/5ml Liquid GT SCH ×2 (08:46→20:22)
[2018-11-12] MEDS: Levemir Flexpen SUBQ SCH ×2 (08:51→17:36)
[2018-11-12] MEDS: Enoxaparin 40mg Inj SUBQ SCH (08:52)
--- NOTE | 2018-11-12 10:28 | NUR ---
NURSE NOTES: Dr Belle at bedside, informed and made aware about pt's potassium level today 3.3. Ordered potassium 60meq IV. Noted, entered, and will carry out.
[2018-11-12] MEDS ORDERED: Miralax 17gm pkt ORAL PRN (10:30)
[2018-11-12 12:00] VITALS: BP 148/88
[2018-11-12] MEDS ORDERED: Calcium Chloride 10% 10ml carpuject IVP ONE (12:00)
--- NOTE | 2018-11-12 12:01 | General Progress Note ---
Assessment/Plan Status: stable Assessment/Plan: 78-year-old female who is trach dependent who was brought in by [facility] for sepsis and found to have UTI. #Sepsis secondary to UTI (e fecalis), GPC bacteremia vs contamination (staph epi ), PNA (pseudomonas) ID consult appreciate Rec Continue antibiotics per ID: Continue Zosyn and vancomycin Repeat blood cultures Echo to eval for vegetation negative sputum cultures: reviewed Chest x-ray reviewed: Atelectasis # Transaminitis, improving - trend lft's - GI consult, appreciate reqs - ab us: reviewed - f/u hep panel: neg #Elevated troponin secondary to sepsis versus ACS Cardiology consult, appreciate recs Medications per cardiology #Hypertension- improved Continue current medications, hydralazine as needed hypertension #Vent dependent Pulmonary consult, appreciate recs Vent management per pulmonary #Hypokalemia Replace, continue to monitor # Hypocalcemia - replace, ctm # Iron deficiency anemia - cont iv iron Time of note may not reflect time of patient encounter Pulsed reviewed: Full code Subjective Date patient seen: Nov 12, 2018 Allergies: Coded Allergies: Crayfish (Unverified Allergy, Unknown, 11/11/18) Uncoded Allergies: Crawfish (Allergy, Unknown, 11/09/18) Subjective Unable to obtain ROS secondary to medical condition. No acute events, nursing notes reviewed. Objective Last 24 Hour Vital Signs Date Time Temp Pulse Resp B/P (MAP) Pulse Ox O2 Delivery O2 Flow Rate FiO2 11/12/18 11:09 97 25 30 11/12/18 09:10 89 21 30 11/12/18 08:45 94 128/74 11/12/18 08:00 30.0 11/12/18 08:00 Mechanical Ventilator 11/12/18 08:00 97.7 91 20 124/73 (90) 100 11/12/18 07:40 94 11/12/18 06:50 84 21 100 Mechanical Ventilator 30 84 19 30 11/12/18 05:25 95 147/76 11/12/18 05:25 147/76 11/12/18 05:12 92 16 30 11/12/18 04:00 98.1 90 18 107/60 (76) 100 11/12/18 04:00 Mechanical Ventilator 11/12/18 04:00 30.0 11/12/18 04:00 94 11/12/18 03:28 92 20 30 11/12/18 01:07 89 20 100 Mechanical Ventilator 30 89 20 30 11/12/18 00:00 30.0 11/12/18 00:00 Mechanical Ventilator 11/12/18 00:00 98.2 87 22 122/69 (86) 100 11/12/18 00:00 88 11/11/18 23:04 89 17 30 11/11/18 22:00 109/63 11/11/18 21:01 93 126/70 11/11/18 20:43 99.1 11/11/18 20:43 99.1 11/11/18 20:40 93 19 Mechanical Ventilator 30 11/11/18 20:00 100.8 98 24 126/70 (88) 100 11/11/18 20:00 94 11/11/18 20:00 30.0 11/11/18 20:00 Mechanical Ventilator 11/11/18 19:44 94 11/11/18 19:29 95 24 100 Mechanical Ventilator 30 95 24 30 11/11/18 17:07 92 16 98 Mechanical Ventilator 30 90 20 11/11/18 16:00 99.1 93 24 115/62 (79) 98 11/11/18 16:00 Mechanical Ventilator 11/11/18 16:00 30.0 11/11/18 15:31 93 11/11/18 15:15 91 16 98 Mechanical Ventilator 30 90 20 11/11/18 14:23 94 133/85 11/11/18 14:23 133/85 11/11/18 13:11 94 16 98 Mechanical Ventilator 30 90 20 11/11/18 12:00 Mechanical Ventilator 11/11/18 12:00 30.0 11/11/18 12:00 98.2 92 20 121/69 (86) 100 Intake and Output 11/11/18 11/12/18 19:00 07:00 Intake Total 793.333 ml 547.5 ml Output Total 800 ml 400 ml Balance -6.667 ml 147.5 ml Intake Free Water 50 ml 100 ml IV Total 293.333 ml 197.5 ml Tube Feeding 450 ml 250 ml Output Urine Total 800 ml 400 ml Laboratory Tests 11/12/18 04:30: White Blood Count 7.3, Red Blood Count 3.42L, Hemoglobin 8.6L, Hematocrit 26.6L , Mean Corpuscular Volume 78L, Mean Corpuscular Hemoglobin 25.0L, Mean Corpuscular Hemoglobin Concent 32.2, Red Cell Distribution Width 23.9H, Platelet Count 367, Mean Platelet Volume 5.7L, Neutrophils (%) (Auto) 74.6, Lymphocytes (%) (Auto) 11.6L, Monocytes (%) (Auto) 7.2, Eosinophils (%) (Auto) 6.3H, Basophils (%) (Auto) 0.3, Sodium Level 142, Potassium Level 3.3L, Chloride Level 105, Carbon Dioxide Level 30, Anion Gap 7, Blood Urea Nitrogen 15 , Creatinine 0.4L, Estimat Glomerular Filtration Rate , Glucose Level 87, Calcium Level 7.4L, Ferritin [Pending], Total Bilirubin 0.2, Aspartate Amino Transf (AST/SGOT) 81H, Alanine Aminotransferase (ALT/SGPT) 85H, Alkaline Phosphatase 174H, Total Protein 5.3L, Albumin 1.1L, Globulin 4.2, Albumin/ Globulin Ratio 0.3L Height (Feet): 5 Height (Inches): 8.00 Weight (Pounds): 174 Objective GENERAL: No acute distress, appears comfortable, alert HEENT: NCAT, non-icteric eyes, congenital tongue deformity Neck: Tracheostomy CV: Regular rate and rhythm, no murmurs rubs or gallops RESP: Clear to auscultation bilaterally, no wheezes/rhonchi/crackles ABD: soft, non-distended, no TTP EXT: Normal muscle tone, +5/5 muscle strength NEURO: No obvious deficits, alert and oriented x3 Jennifer Belle DO Nov 12, 2018 12:01
[2018-11-12] MEDS ORDERED: Calcium Gluconate 1gm in NS 110ml IVPB ONE (13:30)
--- NOTE | 2018-11-12 13:48 | General Progress Note ---
Assessment/Plan Status: stable Assessment/Plan: Assessment - Iron deficiency anemia - abnormal LFT - ? meds, passive congestion , other - dysphagia, s/p GT - Resp, failure, s/p Trach Recommendations - Continue TF - Monitor LFT - declining - IV Iron - follow CBC - Conservative approach given poor health Subjective Allergies: Coded Allergies: Crayfish (Unverified Allergy, Unknown, 11/11/18) Uncoded Allergies: Crawfish (Allergy, Unknown, 11/09/18) Subjective above noted obtunded Objective Last 24 Hour Vital Signs Date Time Temp Pulse Resp B/P (MAP) Pulse Ox O2 Delivery O2 Flow Rate FiO2 11/12/18 12:52 101 26 100 Mechanical Ventilator 30 98 22 30 11/12/18 12:00 30.0 11/12/18 12:00 Mechanical Ventilator 11/12/18 12:00 99.9 96 24 148/88 (108) 100 11/12/18 11:09 97 25 30 11/12/18 09:10 89 21 30 11/12/18 08:45 94 128/74 11/12/18 08:00 30.0 11/12/18 08:00 Mechanical Ventilator 11/12/18 08:00 97.7 91 20 124/73 (90) 100 11/12/18 07:40 94 11/12/18 06:50 84 21 100 Mechanical Ventilator 30 84 19 30 11/12/18 05:25 95 147/76 11/12/18 05:25 147/76 11/12/18 05:12 92 16 30 11/12/18 04:00 98.1 90 18 107/60 (76) 100 11/12/18 04:00 Mechanical Ventilator 11/12/18 04:00 30.0 11/12/18 04:00 94 11/12/18 03:28 92 20 30 11/12/18 01:07 89 20 100 Mechanical Ventilator 30 89 20 30 11/12/18 00:00 30.0 11/12/18 00:00 Mechanical Ventilator 11/12/18 00:00 98.2 87 22 122/69 (86) 100 11/12/18 00:00 88 11/11/18 23:04 89 17 30 11/11/18 22:00 109/63 11/11/18 21:01 93 126/70 11/11/18 20:43 99.1 11/11/18 20:43 99.1 11/11/18 20:40 93 19 Mechanical Ventilator 30 11/11/18 20:00 100.8 98 24 126/70 (88) 100 11/11/18 20:00 94 11/11/18 20:00 30.0 11/11/18 20:00 Mechanical Ventilator 11/11/18 19:44 94 11/11/18 19:29 95 24 100 Mechanical Ventilator 30 95 24 30 11/11/18 17:07 92 16 98 Mechanical Ventilator 30 90 20 11/11/18 16:00 99.1 93 24 115/62 (79) 98 11/11/18 16:00 Mechanical Ventilator 11/11/18 16:00 30.0 11/11/18 15:31 93 11/11/18 15:15 91 16 98 Mechanical Ventilator 30 90 20 11/11/18 14:23 94 133/85 11/11/18 14:23 133/85 Intake and Output 11/11/18 11/12/18 19:00 07:00 Intake Total 793.333 ml 547.5 ml Output Total 800 ml 400 ml Balance -6.667 ml 147.5 ml Intake Free Water 50 ml 100 ml IV Total 293.333 ml 197.5 ml Tube Feeding 450 ml 250 ml Output Urine Total 800 ml 400 ml Laboratory Tests 11/12/18 04:30: White Blood Count 7.3, Red Blood Count 3.42L, Hemoglobin 8.6L, Hematocrit 26.6L , Mean Corpuscular Volume 78L, Mean Corpuscular Hemoglobin 25.0L, Mean Corpuscular Hemoglobin Concent 32.2, Red Cell Distribution Width 23.9H, Platelet Count 367, Mean Platelet Volume 5.7L, Neutrophils (%) (Auto) 74.6, Lymphocytes (%) (Auto) 11.6L, Monocytes (%) (Auto) 7.2, Eosinophils (%) (Auto) 6.3H, Basophils (%) (Auto) 0.3, Sodium Level 142, Potassium Level 3.3L, Chloride Level 105, Carbon Dioxide Level 30, Anion Gap 7, Blood Urea Nitrogen 15 , Creatinine 0.4L, Estimat Glomerular Filtration Rate , Glucose Level 87, Calcium Level 7.4L, Ferritin 303, Total Bilirubin 0.2, Aspartate Amino Transf ( AST/SGOT) 81H, Alanine Aminotransferase (ALT/SGPT) 85H, Alkaline Phosphatase 174H, Total Protein 5.3L, Albumin 1.1L, Globulin 4.2, Albumin/Globulin Ratio 0.3L Height (Feet): 5 Height (Inches): 8.00 Weight (Pounds): 174 Objective Debilitated AA woman NCAT swollen lips and tongue (+) trach Coarse BS RR abd Soft (+) GT (+) dressing on feet Muriel Thomas MD Nov 12, 2018 13:48
--- NOTE | 2018-11-12 13:55 | Surgery Progress Note ---
Surgery Progress Note Subjective Additional Comments no acute events comfortable stable exam unchanged labs okay Objective Last 24 Hour Vital Signs Date Time Temp Pulse Resp B/P (MAP) Pulse Ox O2 Delivery O2 Flow Rate FiO2 11/12/18 13:48 134/83 11/12/18 13:47 99 134/83 11/12/18 12:52 101 26 100 Mechanical Ventilator 30 98 22 30 11/12/18 12:00 30.0 11/12/18 12:00 Mechanical Ventilator 11/12/18 12:00 99.9 96 24 148/88 (108) 100 11/12/18 11:09 97 25 30 11/12/18 09:10 89 21 30 11/12/18 08:45 94 128/74 11/12/18 08:00 30.0 11/12/18 08:00 Mechanical Ventilator 11/12/18 08:00 97.7 91 20 124/73 (90) 100 11/12/18 07:40 94 11/12/18 06:50 84 21 100 Mechanical Ventilator 30 84 19 30 11/12/18 05:25 95 147/76 11/12/18 05:25 147/76 11/12/18 05:12 92 16 30 11/12/18 04:00 98.1 90 18 107/60 (76) 100 11/12/18 04:00 Mechanical Ventilator 11/12/18 04:00 30.0 11/12/18 04:00 94 11/12/18 03:28 92 20 30 11/12/18 01:07 89 20 100 Mechanical Ventilator 30 89 20 30 11/12/18 00:00 30.0 11/12/18 00:00 Mechanical Ventilator 11/12/18 00:00 98.2 87 22 122/69 (86) 100 11/12/18 00:00 88 11/11/18 23:04 89 17 30 11/11/18 22:00 109/63 11/11/18 21:01 93 126/70 11/11/18 20:43 99.1 11/11/18 20:43 99.1 11/11/18 20:40 93 19 Mechanical Ventilator 30 11/11/18 20:00 100.8 98 24 126/70 (88) 100 11/11/18 20:00 94 11/11/18 20:00 30.0 11/11/18 20:00 Mechanical Ventilator 11/11/18 19:44 94 11/11/18 19:29 95 24 100 Mechanical Ventilator 30 95 24 30 11/11/18 17:07 92 16 98 Mechanical Ventilator 30 90 20 11/11/18 16:00 99.1 93 24 115/62 (79) 98 11/11/18 16:00 Mechanical Ventilator 11/11/18 16:00 30.0 11/11/18 15:31 93 11/11/18 15:15 91 16 98 Mechanical Ventilator 30 90 20 11/11/18 14:23 94 133/85 11/11/18 14:23 133/85 I&O Intake and Output 11/11/18 11/12/18 18:59 06:59 Intake Total 693.333 ml 597.5 ml Output Total 800 ml 400 ml Balance -106.667 ml 197.5 ml Intake Free Water 50 ml 100 ml IV Total 293.333 ml 197.5 ml Tube Feeding 350 ml 300 ml Output Urine Total 800 ml 400 ml Dressing: saturated Wound: other Drains: other Cardiovascular: RSR Respiratory: clear Abdomen: soft, present bowel sounds, non-distended Extremities: no cyanosis Laboratory Tests Test 11/12/18 04:30 White Blood Count 7.3 K/UL (4.8-10.8) Red Blood Count 3.42 M/UL (4.20-5.40) L Hemoglobin 8.6 G/DL (12.0-16.0) L Hematocrit 26.6 % (37.0-47.0) L Mean Corpuscular Volume 78 FL (80-99) L Mean Corpuscular Hemoglobin 25.0 PG (27.0-31.0) L Mean Corpuscular Hemoglobin Concent 32.2 G/DL (32.0-36.0) Red Cell Distribution Width 23.9 % (11.6-14.8) H Platelet Count 367 K/UL (150-450) Mean Platelet Volume 5.7 FL (6.5-10.1) L Neutrophils (%) (Auto) 74.6 % (45.0-75.0) Lymphocytes (%) (Auto) 11.6 % (20.0-45.0) L Monocytes (%) (Auto) 7.2 % (1.0-10.0) Eosinophils (%) (Auto) 6.3 % (0.0-3.0) H Basophils (%) (Auto) 0.3 % (0.0-2.0) Sodium Level 142 MMOL/L (136-145) Potassium Level 3.3 MMOL/L (3.5-5.1) L Chloride Level 105 MMOL/L (98-107) Carbon Dioxide Level 30 MMOL/L (21-32) Anion Gap 7 mmol/L (5-15) Blood Urea Nitrogen 15 mg/dL (7-18) Creatinine 0.4 MG/DL (0.55-1.30) L Estimat Glomerular Filtration Rate mL/min (>60) Glucose Level 87 MG/DL (74-106) Calcium Level 7.4 MG/DL (8.5-10.1) L Ferritin 303 NG/ML (8-388) Total Bilirubin 0.2 MG/DL (0.2-1.0) Aspartate Amino Transf (AST/SGOT) 81 U/L (15-37) H Alanine Aminotransferase (ALT/SGPT) 85 U/L (12-78) H Alkaline Phosphatase 174 U/L (46-116) H Total Protein 5.3 G/DL (6.4-8.2) L Albumin 1.1 G/DL (3.4-5.0) L Globulin 4.2 g/dL Albumin/Globulin Ratio 0.3 (1.0-2.7) L Plan Problems: (1) Fever (2) Tongue abnormality Assessment & Plan: patients jaw clenched closed and tongue has been stuck for some time. tongue split from middle teeth and now in two. edema and unable to reduce keep tongue moist. apply lube jelly prn dryness. will monitor do not recommend surgical intervention for this current medical condition (3) Tracheostomy dependence (4) Sepsis Assessment & Plan: gb no stones 6mm polyp no acute surgical intervention planned trend labs DAILY ESTIMATED NEEDS: Needs based on Critical care, sepsis, wound 60kg adj 22-30 kcals/kg 3033-6705 total kcals 1.25-2 g protein/kg 75-120 g total protein Fluid per MD, on lasix NUTRITION DIAGNOSIS: * Swallowing difficulty r/t respiratory status as evidenced by pt is vent dep via trach and PEG dep. * Increased kcal and pro needs r/t wound healing and sepsis as evidenced by pt w/ sacral and R heel wounds, febrile (Tmax 101.5). CURRENT TF: Jevity 1.2 @50 ml/hr x16 hrs ENTERAL NUTRITION RECOMMENDATIONS: Glucerna 1.2 @65ml/hr x18 hrs + Prosource x1 daily to provide 1170ml, 1404 kcal, 70g pro + 11g pro, 942 free H2O - REC TF CHANGE AND INCREASE TO BETTER MEET EST NEEDS - TF TO BE HELD FOR ONE HR BEFORE AND AFTER DILANTIN MEDS - START @20ML/HR, ADVANCE TOLERATED 15ML/HR Q4-6 HRS TO GOAL - FLUSH PER , HOB OVRE 30 DEGREES ADDITIONAL RECOMMENDATIONS: 1) CALIBRATED BED SCALE W/ ADDED P200 MATTRESS + PUMP 2) ON LASIX, MONITOR LYTES AND HYDRATION STATUS DAILY 3) TF TO RUN A MAX OF 18 HRS/DAY W/ DILANTIN TID PER PHARMACY 4) REC TF CHANGE TO CARB CONTROL FORMULA 5) WOUND CARE: ADD CHAYITO BID + VIT C 250MG DAILY (5) Fever (6) Decubitus skin ulcer Assessment & Plan: Pt presented on admission with full thickness sacral pressure injury.Base of wound is 20% necrotic , 80% slough. borders are macerated . Mild odor noted. (L)8.4cm x (W) 6.5cm. Periwound skin tone is darker without erythema,induration or elevation in skin temp. Both heels are non -blanchable and both are fluctuant when palpated. Tx.Plan: Clean wound with saline. Apply Therahoney. Aply Moisture Barrier paste periwound. Cover with Optifoam drsg. Change every 3 days and prn. Apply Cavilon Skin BArrier to both heels. Cover each heel with Optifoam drsg. Change every 7 days and prn. APM/DEIRDRE mattress overlay. Reposition at least every 2hours or as tolerated. Off-load heels with pillow. will follow with recs thank you Preet Hylton Nov 12, 2018 13:55
--- NOTE | 2018-11-12 15:15 | NUR ---
NURSE NOTES: Patient noted to have temperature of [address] Crews at bedside, notified and made aware. New orders noted and carried out. Will continue to monitor patient.
[2018-11-12] MEDS: Acetaminophen 650mg/20.3ml GT PRN ×2 (15:24→20:21)
--- NOTE | 2018-11-12 15:24 | Infectious Diseases Prog Note ---
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 Belle 2. Trach-vent respiratory failure. 3. Dysphagia, G-tube. 4. Anemia. 5. Diabetes. 6. Hypertension. 7. Large tongue. 8. Anoxic brain injury. 9. Weakness. 10. Poorly responsive. 11. History of seizures. 12. History of colon adenocarcinoma. 13. Skin care protocol. 14. Allergy to crawfish. 15. Social history negative. 16. Family history noncontributory. 17. MAR was noted. 18. Case was discussed with RN. 19. Continue treatment per primary consultants. 20. Orders were ordered, entered, and noted. 21. Continue wound care protocol. 22. Continue blood sugar and blood pressure treatment per primary consultants for diabetes and hypertension. 23. vre colonization and isolation Subjective Constitutional: Reports: fever, other - trach and vent HEENT: Reports: congestion Respiratory: Reports: shortness of breath Cardiovascular: Reports: other - no pressors Gastrointestinal/Abdominal: Denies: nausea, vomiting, diarrhea Genitourinary: Reports: other - + nava Neurologic: Reports: other - lethargic and weak Psychiatric: Reports: other - NA Skin: Denies: rash Hematologic: Denies: bleeding Musculoskeletal: Denies: pain Allergies: Coded Allergies: Crayfish (Unverified Allergy, Unknown, 11/11/18) Uncoded Allergies: Crawfish (Allergy, Unknown, 11/09/18) Objective Vital Signs Last 24 Hour Vital Signs Date Time Temp Pulse Resp B/P (MAP) Pulse Ox O2 Delivery O2 Flow Rate FiO2 11/12/18 14:30 100 24 30 11/12/18 13:48 134/83 11/12/18 13:47 99 134/83 11/12/18 12:52 101 26 100 Mechanical Ventilator 30 98 22 30 11/12/18 12:00 30.0 11/12/18 12:00 Mechanical Ventilator 11/12/18 12:00 99.9 96 24 148/88 (108) 100 11/12/18 11:09 97 25 30 11/12/18 09:10 89 21 30 11/12/18 08:45 94 128/74 11/12/18 08:00 30.0 11/12/18 08:00 Mechanical Ventilator 11/12/18 08:00 97.7 91 20 124/73 (90) 100 11/12/18 07:40 94 11/12/18 06:50 84 21 100 Mechanical Ventilator 30 84 19 30 11/12/18 05:25 95 147/76 11/12/18 05:25 147/76 11/12/18 05:12 92 16 30 11/12/18 04:00 98.1 90 18 107/60 (76) 100 11/12/18 04:00 Mechanical Ventilator 11/12/18 04:00 30.0 11/12/18 04:00 94 11/12/18 03:28 92 20 30 11/12/18 01:07 89 20 100 Mechanical Ventilator 30 89 20 30 11/12/18 00:00 30.0 11/12/18 00:00 Mechanical Ventilator 11/12/18 00:00 98.2 87 22 122/69 (86) 100 11/12/18 00:00 88 11/11/18 23:04 89 17 30 11/11/18 22:00 109/63 11/11/18 21:01 93 126/70 11/11/18 20:43 99.1 11/11/18 20:43 99.1 11/11/18 20:40 93 19 Mechanical Ventilator 30 11/11/18 20:00 100.8 98 24 126/70 (88) 100 11/11/18 20:00 94 11/11/18 20:00 30.0 11/11/18 20:00 Mechanical Ventilator 11/11/18 19:44 94 11/11/18 19:29 95 24 100 Mechanical Ventilator 30 95 24 30 11/11/18 17:07 92 16 98 Mechanical Ventilator 30 90 20 11/11/18 16:00 99.1 93 24 115/62 (79) 98 11/11/18 16:00 Mechanical Ventilator 11/11/18 16:00 30.0 11/11/18 15:31 93 11/11/18 15:15 91 16 98 Mechanical Ventilator 30 90 20 Height (Feet): 5 Height (Inches): 8.00 Weight (Pounds): 174 General Appearance: other - + trach and vent, poorly responsive HEENT: normocephalic, atraumatic, anicteric Respiratory/Chest: crackles/rales, rhonchi - bilaterally Cardiovascular: normal rate, regular rhythm, no gallop/murmur, no JVD Abdomen: normal bowel sounds, soft, non tender, no organomegaly, non distended Genitourinary: other - + nava - urine cloudy Extremities: no cyanosis Skin: no rash, ulcers - wounds covered Neurologic/Psychiatric: motor weakness, unresponsiveness, other - lethargic, weak Lymphatic: no neck adenopathy Musculoskeletal: no effusion Objective 11/11/18 - chest x-ray - IMPRESSION: 1. Hypoventilatory lungs. Elevated right hemidiaphragm. Slightly improved vascular congestion. Similar bibasilar lung atelectasis and airspace disease. 2. Query right pleural effusion. 2-D echo - no vegetations mentioned, report noted sacral x-ray - no osteo mentioned, report noted Microbiology Date/Time Source Procedure Growth Status 11/08/18 23:20 Blood Blood Culture - Final Staphylococcus Epidermidis Complete 11/09/18 05:38 Sputum Induced Gram Stain - Final Complete 11/09/18 05:38 Sputum Culture - Final Pseudomonas Aeruginosa Usual Respiratory Carmita Complete 11/09/18 02:05 Urine,Clean Catch Urine Culture - Final Enterococcus Faecalis Complete 11/08/18 23:10 Rectum - Final NO CARBAPENEM-RESISTANT ENTEROBACTERI... Complete Laboratory Tests Test 11/12/18 04:30 White Blood Count 7.3 K/UL (4.8-10.8) Red Blood Count 3.42 M/UL (4.20-5.40) L Hemoglobin 8.6 G/DL (12.0-16.0) L Hematocrit 26.6 % (37.0-47.0) L Mean Corpuscular Volume 78 FL (80-99) L Mean Corpuscular Hemoglobin 25.0 PG (27.0-31.0) L Mean Corpuscular Hemoglobin Concent 32.2 G/DL (32.0-36.0) Red Cell Distribution Width 23.9 % (11.6-14.8) H Platelet Count 367 K/UL (150-450) Mean Platelet Volume 5.7 FL (6.5-10.1) L Neutrophils (%) (Auto) 74.6 % (45.0-75.0) Lymphocytes (%) (Auto) 11.6 % (20.0-45.0) L Monocytes (%) (Auto) 7.2 % (1.0-10.0) Eosinophils (%) (Auto) 6.3 % (0.0-3.0) H Basophils (%) (Auto) 0.3 % (0.0-2.0) Sodium Level 142 MMOL/L (136-145) Potassium Level 3.3 MMOL/L (3.5-5.1) L Chloride Level 105 MMOL/L (98-107) Carbon Dioxide Level 30 MMOL/L (21-32) Anion Gap 7 mmol/L (5-15) Blood Urea Nitrogen 15 mg/dL (7-18) Creatinine 0.4 MG/DL (0.55-1.30) L Estimat Glomerular Filtration Rate mL/min (>60) Glucose Level 87 MG/DL (74-106) Calcium Level 7.4 MG/DL (8.5-10.1) L Ferritin 303 NG/ML (8-388) Total Bilirubin 0.2 MG/DL (0.2-1.0) Aspartate Amino Transf (AST/SGOT) 81 U/L (15-37) H Alanine Aminotransferase (ALT/SGPT) 85 U/L (12-78) H Alkaline Phosphatase 174 U/L (46-116) H Total Protein 5.3 G/DL (6.4-8.2) L Albumin 1.1 G/DL (3.4-5.0) L Globulin 4.2 g/dL Albumin/Globulin Ratio 0.3 (1.0-2.7) L Current Medications Medications (Trade) Dose Ordered Sig/Lupe Route PRN Reason Start Time Stop Time Status Last Admin Dose Admin Acetaminophen (Tylenol) 650 mg Q4H PRN GT Mild Pain/Temp > 100.5 11/09/18 05:00 12/09/18 04:59 11/11/18 20:13 Albuterol/ Ipratropium (Albuterol/ Ipratropium) 3 ml Q4H PRN HHN Shortness of Breath 11/09/18 16:15 11/14/18 16:14 Albuterol/ Ipratropium (Albuterol/ Ipratropium) 3 ml Q6HRT HHN 11/09/18 19:00 11/14/18 18:59 11/12/18 12:41 Amlodipine Besylate (Norvasc) 10 mg DAILY GT 11/09/18 09:00 12/09/18 08:59 11/12/18 08:45 Bisacodyl (Dulcolax) 10 mg DAILY PRN RECTAL Constipation 11/09/18 05:00 12/09/18 04:59 Calcium Carbonate (Tums) 500 mg EVERY 8 HOURS GT 11/09/18 14:00 12/09/18 08:59 11/12/18 13:47 Chlorhexidine Gluconate (Corazon-Hex 2%) 1 applic DAILY@2000 [facility] 11/09/18 20:00 12/09/18 19:59 11/11/18 20:12 Dextrose (Dextrose 50%) 25 ml Q30M PRN IV Hypoglycemia 11/09/18 04:45 12/09/18 04:44 Dextrose (Dextrose 50%) 50 ml Q30M PRN IV Hypoglycemia 11/09/18 04:45 12/09/18 04:44 11/09/18 09:09 Docusate Sodium (Colace) 200 mg TWICE A DAY ORAL 11/12/18 18:00 12/12/18 17:59 Enoxaparin Sodium (Lovenox) 40 mg DAILY SUBQ 11/09/18 09:00 12/09/18 08:59 11/12/18 08:52 Famotidine (Pepcid) 20 mg EVERY 12 HOURS GT 11/09/18 21:00 12/09/18 08:59 11/12/18 08:45 Furosemide (Lasix) 40 mg EVERY 12 HOURS GT 11/09/18 09:00 12/09/18 08:59 11/12/18 08:45 Hydralazine HCl (Apresoline) 5 mg EVERY 8 HOURS GT 11/09/18 06:00 12/09/18 05:59 11/12/18 13:48 Insulin Aspart (NovoLOG) Q6HR SUBQ 11/09/18 06:00 12/09/18 05:59 11/12/18 11:45 Insulin Detemir (Levemir) 6 units BID SUBQ 11/09/18 09:00 12/09/18 08:59 11/12/18 08:51 Iron Sucrose 100 mg/Sodium Chloride 60 ml @ 240 mls/hr BEDTIME IVPB 11/11/18 21:00 11/15/18 21:14 11/11/18 20:12 Labetalol HCl (Normodyne) 200 mg Q8HR GT 11/09/18 06:00 12/09/18 05:59 11/12/18 13:47 Levetiracetam (Keppra) 1,500 mg Q12HR GT 11/09/18 09:00 12/09/18 08:59 11/12/18 08:46 Lorazepam (Ativan 2mg/ml 1ml) 2 mg DAILY PRN IVP For Seizures 11/09/18 05:00 11/16/18 04:59 Magnesium Hydroxide (Mom) 30 ml DAILY PRN GT Constipation 11/09/18 05:00 12/09/18 04:59 Magnesium Oxide (Mag-Ox 400mg) 400 mg EVERY 8 HOURS GT 11/09/18 14:00 12/09/18 08:59 11/12/18 13:47 Ondansetron HCl (Zofran) 4 mg Q6H PRN GT Nausea & Vomiting 11/09/18 05:00 12/09/18 04:59 Phenobarbital (PHENobarbital) 60 mg BID GT 11/09/18 09:00 12/09/18 08:59 11/12/18 08:45 Phenytoin (Dilantin) 100 mg Q8HR GT 11/09/18 06:00 12/09/18 05:59 11/12/18 13:46 Piperacillin Sod/ Tazobactam Sod 3.375 gm/Sodium Chloride 110 ml @ 27.5 mls/hr Q8H IVPB 11/09/18 06:00 11/16/18 05:59 11/12/18 14:35 Polyethylene Glycol (Miralax) 17 gm DAILYPRN PRN ORAL Constipation 11/12/18 10:30 12/12/18 10:29 Potassium Chloride 100 ml @ 100 mls/hr Q1H IVPB 11/12/18 11:00 11/12/18 16:59 11/12/18 14:49 Sennosides (Senokot) 8.6 mg EVERY 12 HOURS GT 11/09/18 21:00 12/09/18 08:59 8/25/19 08:44 Valproic Acid (Depakene) 500 mg EVERY 8 HOURS GT 11/09/18 06:00 12/09/18 05:59 11/12/18 14:10 Vancomycin HCl (Vanco rx to dose) 1 ea DAILY PRN MISC Per rx protocol 11/10/18 16:45 12/10/18 16:44 Vancomycin/Sodium Chloride 275 ml @ 183.333 mls/hr Q24H IVPB 11/11/18 18:00 11/16/18 17:59 11/11/18 17:55 Dasha Crews MD Nov 12, 2018 15:24
[2018-11-12 16:00] VITALS: BP 146/74
[2018-11-12] MEDS ORDERED: Tubing IV Secondary IV ONE (16:07)
[2018-11-12] MEDS ORDERED: NS 275ml ONE (16:07)
--- NOTE | 2018-11-12 16:39 | NUR ---
NURSE NOTES: Called and obtained telephone consent for PICC line replacement from daughter Treasure Ray. Addendum: 11/12/18 at 1645 by Radha Boles RN Verified and witnessed by second nurse, Ayo Evans RN.
[2018-11-12] MEDS: Docusate 100mg tablet GT SCH (17:34)
[2018-11-12] MEDS: Vancomycin 1.25gm/NS Premix IVPB SCH (17:45)
[2018-11-12] MEDS ORDERED: Docusate 100mg cap ORAL SCH (18:00)
--- NOTE | 2018-11-12 18:56 | Pulmonology Progress Note ---
Assessment/Plan Assessment/Plan (1) Ventilator dependence (2) Tracheostomy dependence (3) UTI (urinary tract infection) (4) Fever (5) Anoxic brain damage (6) Tongue abnormality (7) Seizure disorder (8) Colon adenocarcinoma (9) HTN (hypertension) (10) Sepsis (11) Diabetes (12) Abnormal LFTs (13) Protein calorie malnutrition (14) Gastrostomy in place (15) shelter resident Assessment/Plan Continue ventilatory support/settings reviewed pt is not weanable Titrate down FiO2 to keep SaO2 > 90% Optimize pulmonary hygiene/mobilize as tolerated RTC and PRN HHN's Abx (Zosyn) per ID, F/U Cx's F/U cards recs Monitor volumes and renal function, PRN IVF DVT Px: LMWH FC, continue to discuss GOC Wound care cxr 11/14 ordred Subjective ROS Limited/Unobtainable: Yes Allergies: Coded Allergies: Crayfish (Unverified Allergy, Unknown, 11/11/18) Uncoded Allergies: Crawfish (Allergy, Unknown, 11/09/18) Subjective obtunded on the vent trach and peg no bleeding no events over night copious oral secretions Objective Last 24 Hour Vital Signs Date Time Temp Pulse Resp B/P (MAP) Pulse Ox O2 Delivery O2 Flow Rate FiO2 11/12/18 17:01 101 25 30 11/12/18 16:00 Mechanical Ventilator 11/12/18 16:00 30.0 11/12/18 16:00 102.0 103 24 146/74 (98) 100 11/12/18 16:00 104 11/12/18 15:54 99.9 11/12/18 14:30 100 24 30 11/12/18 13:48 134/83 11/12/18 13:47 99 134/83 11/12/18 12:52 101 26 100 Mechanical Ventilator 30 98 22 30 11/12/18 12:00 30.0 11/12/18 12:00 Mechanical Ventilator 11/12/18 12:00 99.9 96 24 148/88 (108) 100 11/12/18 11:40 95 11/12/18 11:09 97 25 30 11/12/18 09:10 89 21 30 11/12/18 08:45 94 128/74 11/12/18 08:00 30.0 11/12/18 08:00 Mechanical Ventilator 11/12/18 08:00 97.7 91 20 124/73 (90) 100 11/12/18 07:40 94 11/12/18 06:50 84 21 100 Mechanical Ventilator 30 84 19 30 11/12/18 05:25 95 147/76 11/12/18 05:25 147/76 11/12/18 05:12 92 16 30 11/12/18 04:00 98.1 90 18 107/60 (76) 100 11/12/18 04:00 Mechanical Ventilator 11/12/18 04:00 30.0 11/12/18 04:00 94 11/12/18 03:28 92 20 30 11/12/18 01:07 89 20 100 Mechanical Ventilator 30 89 20 30 11/12/18 00:00 30.0 11/12/18 00:00 Mechanical Ventilator 11/12/18 00:00 98.2 87 22 122/69 (86) 100 11/12/18 00:00 88 11/11/18 23:04 89 17 30 11/11/18 22:00 109/63 11/11/18 21:01 93 126/70 11/11/18 20:43 99.1 11/11/18 20:40 93 19 Mechanical Ventilator 30 11/11/18 20:00 100.8 98 24 126/70 (88) 100 11/11/18 20:00 94 11/11/18 20:00 30.0 11/11/18 20:00 Mechanical Ventilator 11/11/18 19:44 94 11/11/18 19:29 95 24 100 Mechanical Ventilator 30 95 24 30 Intake and Output 11/11/18 11/12/18 18:59 06:59 Intake Total 693.333 ml 597.5 ml Output Total 800 ml 400 ml Balance -106.667 ml 197.5 ml Intake Free Water 50 ml 100 ml IV Total 293.333 ml 197.5 ml Tube Feeding 350 ml 300 ml Output Urine Total 800 ml 400 ml General Appearance: WD/WN HEENT: status post trach Respiratory/Chest: rhonchi Cardiovascular: normal rate, regular rhythm, edema Abdomen: soft, non tender, no organomegaly Skin: lesions Neurologic/Psychiatric: disoriented, unresponsiveness Laboratory Tests 11/12/18 04:30: White Blood Count 7.3, Red Blood Count 3.42L, Hemoglobin 8.6L, Hematocrit 26.6L , Mean Corpuscular Volume 78L, Mean Corpuscular Hemoglobin 25.0L, Mean Corpuscular Hemoglobin Concent 32.2, Red Cell Distribution Width 23.9H, Platelet Count 367, Mean Platelet Volume 5.7L, Neutrophils (%) (Auto) 74.6, Lymphocytes (%) (Auto) 11.6L, Monocytes (%) (Auto) 7.2, Eosinophils (%) (Auto) 6.3H, Basophils (%) (Auto) 0.3, Sodium Level 142, Potassium Level 3.3L, Chloride Level 105, Carbon Dioxide Level 30, Anion Gap 7, Blood Urea Nitrogen 15 , Creatinine 0.4L, Estimat Glomerular Filtration Rate , Glucose Level 87, Calcium Level 7.4L, Ferritin 303, Total Bilirubin 0.2, Aspartate Amino Transf ( AST/SGOT) 81H, Alanine Aminotransferase (ALT/SGPT) 85H, Alkaline Phosphatase 174H, Total Protein 5.3L, Albumin 1.1L, Globulin 4.2, Albumin/Globulin Ratio 0.3L Current Medications Medications (Trade) Dose Ordered Sig/Lupe Route PRN Reason Start Time Stop Time Status Last Admin Dose Admin Acetaminophen (Tylenol) 650 mg Q4H PRN GT Mild Pain/Temp > 100.5 11/09/18 05:00 12/09/18 04:59 11/12/18 15:24 Albuterol/ Ipratropium (Albuterol/ Ipratropium) 3 ml Q4H PRN HHN Shortness of Breath 11/09/18 16:15 11/14/18 16:14 Albuterol/ Ipratropium (Albuterol/ Ipratropium) 3 ml Q6HRT HHN 11/09/18 19:00 11/14/18 18:59 11/12/18 12:41 Amlodipine Besylate (Norvasc) 10 mg DAILY GT 11/09/18 09:00 12/09/18 08:59 11/12/18 08:45 Bisacodyl (Dulcolax) 10 mg DAILY PRN RECTAL Constipation 11/09/18 05:00 12/09/18 04:59 Calcium Carbonate (Tums) 500 mg EVERY 8 HOURS GT 11/09/18 14:00 12/09/18 08:59 11/12/18 13:47 Chlorhexidine Gluconate (Corazon-Hex 2%) 1 applic DAILY@2000 [facility] 11/12/18 20:00 12/12/18 19:59 Dextrose (Dextrose 50%) 25 ml Q30M PRN IV Hypoglycemia 11/09/18 04:45 12/09/18 04:44 Dextrose (Dextrose 50%) 50 ml Q30M PRN IV Hypoglycemia 11/09/18 04:45 12/09/18 04:44 11/09/18 09:09 Docusate Sodium (Colace) 200 mg BID GT 11/12/18 18:00 12/12/18 17:59 11/12/18 17:34 Enoxaparin Sodium (Lovenox) 40 mg DAILY SUBQ 11/09/18 09:00 12/09/18 08:59 11/12/18 08:52 Famotidine (Pepcid) 20 mg EVERY 12 HOURS GT 11/09/18 21:00 12/09/18 08:59 11/12/18 08:45 Furosemide (Lasix) 40 mg EVERY 12 HOURS GT 11/09/18 09:00 12/09/18 08:59 11/12/18 08:45 Heparin Sodium/ Sodium Chloride (Heparin 1000 units/500ml Premix) 1,000 unit ONCE PRN IV PICC LINE 11/13/18 09:00 11/14/18 23:59 Hydralazine HCl (Apresoline) 5 mg EVERY 8 HOURS GT 11/09/18 06:00 12/09/18 05:59 11/12/18 13:48 Insulin Aspart (NovoLOG) Q6HR SUBQ 11/09/18 06:00 12/09/18 05:59 11/12/18 17:36 Insulin Detemir (Levemir) 6 units BID SUBQ 11/09/18 09:00 12/09/18 08:59 11/12/18 17:36 Iron Sucrose 100 mg/Sodium Chloride 60 ml @ 240 mls/hr BEDTIME IVPB 11/11/18 21:00 11/15/18 21:14 11/11/18 20:12 Labetalol HCl (Normodyne) 200 mg Q8HR GT 11/09/18 06:00 12/09/18 05:59 11/12/18 13:47 Levetiracetam (Keppra) 1,500 mg Q12HR GT 11/09/18 09:00 12/09/18 08:59 11/12/18 08:46 Lidocaine HCl (Xylocaine 1% 30ml) 30 ml ONCE PRN INJ PICC LINE 11/13/18 09:00 11/14/18 23:59 Lorazepam (Ativan 2mg/ml 1ml) 2 mg DAILY PRN IVP For Seizures 11/09/18 05:00 11/16/18 04:59 Magnesium Hydroxide (Mom) 30 ml DAILY PRN GT Constipation 11/09/18 05:00 12/09/18 04:59 Magnesium Oxide (Mag-Ox 400mg) 400 mg EVERY 8 HOURS GT 11/09/18 14:00 12/09/18 08:59 11/12/18 13:47 Ondansetron HCl (Zofran) 4 mg Q6H PRN GT Nausea & Vomiting 11/09/18 05:00 12/09/18 04:59 Phenobarbital (PHENobarbital) 60 mg BID GT 11/09/18 09:00 12/09/18 08:59 11/12/18 17:31 Phenytoin (Dilantin) 100 mg Q8HR GT 11/09/18 06:00 12/09/18 05:59 11/12/18 13:46 Piperacillin Sod/ Tazobactam Sod 3.375 gm/Sodium Chloride 110 ml @ 27.5 mls/hr Q8H IVPB 11/09/18 06:00 11/16/18 05:59 11/12/18 14:35 Polyethylene Glycol (Miralax) 17 gm DAILYPRN PRN ORAL Constipation 11/12/18 10:30 12/12/18 10:29 Sennosides (Senokot) 8.6 mg EVERY 12 HOURS GT 11/09/18 21:00 12/09/18 08:59 11/12/18 08:44 Valproic Acid (Depakene) 500 mg EVERY 8 HOURS GT 11/09/18 06:00 12/09/18 05:59 11/12/18 14:10 Vancomycin HCl (Vanco rx to dose) 1 ea DAILY PRN MISC Per rx protocol 11/10/18 16:45 12/10/18 16:44 Vancomycin/Sodium Chloride 275 ml @ 183.333 mls/hr Q24H IVPB 11/11/18 18:00 11/16/18 17:59 11/12/18 17:45 Ashley Salomon DO Nov 12, 2018 18:56
--- NOTE | 2018-11-12 19:07 | NUR ---
HAND-OFF: Report given to CHARLEE Harris. Patient in stable condition.
--- NOTE | 2018-11-12 19:27 | NUR ---
NURSE NOTES: Received report from Radha RN, pt. in bed obtunded, opens eyes but non-verbal, secured entrance monitor on, no signs or symptoms of acute cardiac or respiratory distress noted, bed in lowest position and call light within easy reach, bed alarm on, side rails x's3 and safety brakes engaged, pt. appears to be tolerating current vent settings well- AC 14, TV 375, Fio2 @30% and peep 5- no distress noted, Side rails padded for seizure precautions- no seizure activity noted, Jevity 1.2 running via G tube at 50cc/hr- no residual noted- Feeding will be held now before Dilantin administration, pt. appears to be comfortable and is clean and dry, HANNAH PICC intact and patent, safety measures continued, will continue with plan of care.
[2018-11-12 20:00] VITALS: BP 138/72
[2018-11-12] MEDS: Dyna-Hex 2% Top Sol 2oz TOPIC SCH (20:21)
[2018-11-12] MEDS: Iron Sucrose 100 MG in NS 55 ML IVPB SCH (21:12)
[2018-11-13] VITALS: BP 138/78
[2018-11-13] MEDS: Albuterol/Ipratropium 3ml neb HHN SCH ×4 (01:15→18:59)
[2018-11-13 03:25] VITALS: BP 141/82
[2018-11-13] MEDS: Acetaminophen 650mg/20.3ml GT PRN (03:35)
[2018-11-13] MEDS: Piperacillin/Tazobactam 3.375 GM in NS 110 ML IVPB SCH ×3 (05:00→21:12)
[2018-11-13] MEDS: Tums 500mg GT SCH ×3 (05:00→21:01)
[2018-11-13] MEDS: Valproic Acid 250mg/5ml Liquid GT SCH ×3 (05:00→21:01)
[2018-11-13] MEDS: Magnesium Oxide 400mg tab GT SCH ×3 (05:00→21:01)
[2018-11-13] MEDS: Labetalol 200mg tab GT SCH ×3 (05:00→21:03)
[2018-11-13] MEDS: NovoLOG Insulin Flexpen SUBQ SCH ×4 (05:03→23:04)
[2018-11-13 05:38] LABS: BASOPHILS % (AUTO) 0.4 % (0.0-2.0); EOSINOPHILS % (AUTO) 2.2 % (0.0-3.0); HEMATOCRIT 30.4 % (37.0-47.0); HEMOGLOBIN 9.7 G/DL (12.0-16.0); LYMPHOCYTES % (AUTO) 9.5 % (20.0-45.0); MEAN CORPUSCULAR VOLUME 79 FL (80-99); MONOCYTES % (AUTO) 5.6 % (1.0-10.0); NEUTROPHILS % (AUTO) 82.3 % (45.0-75.0); PLATELET COUNT 468 K/UL (150-450); RED BLOOD COUNT 3.87 M/UL (4.20-5.40); RED CELL DISTRIBUTION WIDTH 23.6 % (11.6-14.8)
[2018-11-13] MEDS: HydrALAZINE 10mg Tab GT SCH ×3 (06:00→22:00)
[2018-11-13] MEDS: Phenytoin Susp 100mg/4ml GT SCH ×3 (06:00→21:00)
[2018-11-13 06:09] LABS: ALANINE AMINOTRANSFERASE 108 U/L (12-78); ALBUMIN 1.4 G/DL (3.4-5.0); ALBUMIN/GLOBULIN RATIO 0.3 (1.0-2.7); ALKALINE PHOSPHATASE 219 U/L (46-116); ANION GAP 5 mmol/L (5-15); ASPARTATE AMINO TRANSFERASE 108 U/L (15-37); BILIRUBIN,TOTAL 0.2 MG/DL (0.2-1.0); BLOOD UREA NITROGEN 15 mg/dL (7-18); CALCIUM 8.5 MG/DL (8.5-10.1); CARBON DIOXIDE 30 MMOL/L (21-32); CHLORIDE 102 MMOL/L (98-107); CREATININE 0.5 MG/DL (0.55-1.30); POTASSIUM 4.2 MMOL/L (3.5-5.1); SODIUM 137 MMOL/L (136-145)
--- NOTE | 2018-11-13 07:00 | NUR ---
HAND-OFF: Report given to Jani RN, pt. remains stable and no signs of distress noted- aware to f/u with abnormal labs with doctor.
[2018-11-13 07:44] LABS: BASOPHILS % (AUTO) 0.8 % (0.0-2.0); EOSINOPHILS % (AUTO) 2.4 % (0.0-3.0); HEMATOCRIT 28.8 % (37.0-47.0); HEMOGLOBIN 9.2 G/DL (12.0-16.0); LYMPHOCYTES % (AUTO) 11.8 % (20.0-45.0); MEAN CORPUSCULAR VOLUME 79 FL (80-99); PLATELET COUNT 451 K/UL (150-450); RED BLOOD COUNT 3.67 M/UL (4.20-5.40); RED CELL DISTRIBUTION WIDTH 23.7 % (11.6-14.8); WHITE BLOOD COUNT 15.6 K/UL (4.8-10.8)
[2018-11-13 08:00] VITALS: BP 114/53
[2018-11-13] MEDS: Docusate 100mg tablet GT SCH ×2 (08:28→17:10)
[2018-11-13] MEDS: Sennosides 8.6mg tab GT SCH ×2 (08:29→20:43)
[2018-11-13] MEDS: Furosemide 40mg tab GT SCH ×2 (08:29→20:44)
[2018-11-13] MEDS: levETIRAcetam 500mg/5ml Liquid GT SCH ×2 (08:30→20:44)
[2018-11-13] MEDS: PHENobarbital Elixir 30mg/7.5ml GT SCH ×2 (08:31→17:10)
[2018-11-13] MEDS: Enoxaparin 40mg Inj SUBQ SCH (08:34)
[2018-11-13] MEDS: Levemir Flexpen SUBQ SCH ×2 (08:39→17:12)
[2018-11-13] MEDS ORDERED: Lidocaine 1% Plain 30 ml INJ PRN (09:00)
[2018-11-13] MEDS ORDERED: Heparin1,000 units/500ml Premix(Conc:2 units/ml) IV PRN (09:00)
--- NOTE | 2018-11-13 10:09 | NUR ---
DISCHARGE PLANNING: NOTE F/U CALL PLACED TO [facility] T: [phone]>> ROBIN IS REVIEWING CLINICALS FOR ACCEPTANCE F [phone] CV TERRACE >> PER AYAD CLINICALS NEEDS TO BE RE-FAXED T [phone] F [phone] NATALIIA >>>PER GONZALEZ NO BEDS AVAILABLE AT THIS TIME T [phone] F: [phone]
--- NOTE | 2018-11-13 10:23 | NUR ---
CASE MANAGEMENT: REVIEW 11/13/2018 SI:SEPSIS. T 97.5 HR 95 RR 26 B/P 114/53 SATS 100% ON MECH VENT FIO2 30 WBC 15.6 CR 0.5 GLU 22 AST 108 ALT 108 ALP 219 IS: HYDRALAZINE GT Q8H DEPAKENE GT Q8H LASIX IV GT Q12H PEPCID GT Q12H VENOFER IV QHS KEPPRA GT Q12H VANCO IV Q24H ZOSYN IV Q8H SDU DCP: PATIENT TO BE DISCHARGED TO SNF ONCE MEDICALLY CLEARED PLAN OF CARE: DC PLANNING TO SNF
--- NOTE | 2018-11-13 11:03 | NUR ---
RD ASSESSMENT & RECOMMENDATIONS SEE CARE ACTIVITY FOR COMPLETE ASSESSMENT DAILY ESTIMATED NEEDS: Needs based on Critical care, sepsis, wound 60kg adj 22-30 kcals/kg [id number] total kcals 1.25-2 g protein/kg 75-120 g total protein Fluid per MD, on lasix mL/kg total fluid mLs NUTRITION DIAGNOSIS: * Swallowing difficulty r/t resp status as evidenced by pt is vent dep via trach and PEG dep. * Increased kcal and pro needs r/t wound healing and sepsis as evidenced by pt w/ sacral and R heel wounds, febrile (Tmax 102.0). CURRENT TF:Jevity 1.2 @50 ml/hr x16 hrs ENTERAL NUTRITION RECOMMENDATIONS: Glucerna 1.2 @65ml/hr x18 hrs + Prosource x1 daily to provide 1170ml, 1404 kcal, 70g pro + 11g pro, 942 free H2O - REC TF CHANGE AND INCREASE TO BETTER MEET EST NEEDS - TF TO BE HELD FOR ONE HR BEFORE AND AFTER DILANTIN MEDS - START @20ML/HR, ADVANCE TOLERATED 15ML/HR Q4-6 HRS TO GOAL - FLUSH PER MD, HOB OVER 30 DEGREES ADDITIONAL RECOMMENDATIONS: 1) CALIBRATED BED SCALE W/ ADDED P200 MATTRESS + PUMP 2) ON LASIX, MONITOR LYTES AND HYDRATION STATUS DAILY 3) TF TO RUN A MAX OF 18 HRS/DAY W/ DILANTIN TID PER PHARMACY 4) REC TF CHANGE TO CARB CONTROL FORMULA 5) WOUND CARE: ADD CHAYITO BID + VIT C 250MG DAILY
[2018-11-13 11:51] VITALS: BP 117/61
--- NOTE | 2018-11-13 12:00 | Pulmonology Progress Note ---
Assessment/Plan Problems: (1) Ventilator dependence (2) Tracheostomy dependence (3) UTI (urinary tract infection) (4) Fever (5) Anoxic brain damage (6) Tongue abnormality (7) Seizure disorder (8) Colon adenocarcinoma (9) HTN (hypertension) (10) Sepsis (11) Diabetes (12) Abnormal LFTs (13) Protein calorie malnutrition (14) Gastrostomy in place (15) prison resident (16) Decubitus skin ulcer Assessment/Plan Continue ventilatory support/settings reviewed Titrate down FiO2 to keep SaO2 > 90% Optimize pulmonary hygiene/mobilize as tolerated RTC and PRN HHN's Abx per ID, F/U Cx's F/U cards recs Monitor volumes and renal function DVT Px: LMWH FC, continue to discuss GOC Wound care Subjective Allergies: Coded Allergies: Crayfish (Unverified Allergy, Unknown, 11/11/18) Uncoded Allergies: Crawfish (Allergy, Unknown, 11/09/18) Subjective AFVSS stable on vent no sig secretions no distress Objective Last 24 Hour Vital Signs Date Time Temp Pulse Resp B/P (MAP) Pulse Ox O2 Delivery O2 Flow Rate FiO2 11/13/18 11:51 97.9 92 18 117/61 (79) 100 11/13/18 11:28 93 21 30 11/13/18 09:15 91 23 30 11/13/18 09:00 Mechanical Ventilator 11/13/18 08:28 97 114/57 11/13/18 08:00 30.0 11/13/18 08:00 96 11/13/18 08:00 97.5 95 26 114/53 (73) 100 11/13/18 07:29 98 21 100 Mechanical Ventilator 30 100 22 11/13/18 06:00 107/57 11/13/18 05:11 86 23 30 11/13/18 05:00 105 141/82 11/13/18 04:05 99.1 11/13/18 04:00 Mechanical Ventilator 11/13/18 04:00 30.0 11/13/18 03:25 100.5 105 26 141/82 (101) 100 11/13/18 03:23 104 11/13/18 02:34 91 29 30 11/13/18 01:15 91 24 100 Mechanical Ventilator 30 94 19 30 11/13/18 00:00 92 11/13/18 00:00 Mechanical Ventilator 11/13/18 00:00 30.0 11/13/18 00:00 99.0 93 24 138/78 (98) 100 11/12/18 23:19 93 26 30 11/12/18 21:59 112/78 11/12/18 21:24 91 24 30 11/12/18 21:12 101 138/72 11/12/18 20:00 101 11/12/18 20:00 Mechanical Ventilator 11/12/18 20:00 100.6 101 16 138/72 (94) 100 11/12/18 20:00 30.0 11/12/18 19:43 100 22 100 Mechanical Ventilator 30 99 26 30 11/12/18 17:01 101 25 30 11/12/18 16:00 Mechanical Ventilator 11/12/18 16:00 30.0 11/12/18 16:00 102.0 103 24 146/74 (98) 100 11/12/18 16:00 104 11/12/18 14:30 100 24 30 11/12/18 13:48 134/83 11/12/18 13:47 99 134/83 11/12/18 12:52 101 26 100 Mechanical Ventilator 30 98 22 30 11/12/18 12:00 30.0 11/12/18 12:00 Mechanical Ventilator 11/12/18 12:00 99.9 96 24 148/88 (108) 100 Intake and Output 11/12/18 11/13/18 19:00 07:00 Intake Total 1765.833 ml 525.0 ml Output Total 600 ml 300 ml Balance 1165.833 ml 225.0 ml Intake Free Water 100 ml 50 ml IV Total 1215.833 ml 225.0 ml Tube Feeding 450 ml 250 ml Output Urine Total 600 ml 300 ml General Appearance: no acute distress, other - non verbal HEENT: normocephalic, atraumatic, anicteric, mucous membranes moist, status post trach, other - enlarged lip and tongue unchanged Respiratory/Chest: chest wall non-tender, lungs clear, normal breath sounds, no respiratory distress, other Cardiovascular: normal peripheral pulses, normal rate, regular rhythm Abdomen: normal bowel sounds, soft, non tender, no organomegaly, non distended , no mass, other - GT Extremities: no cyanosis, no clubbing, no edema Laboratory Tests 11/13/18 04:00: White Blood Count 16.0#H, Red Blood Count 3.87L, Hemoglobin 9.7L, Hematocrit 30.4L, Mean Corpuscular Volume 79L, Mean Corpuscular Hemoglobin 25.0L, Mean Corpuscular Hemoglobin Concent 31.9L, Red Cell Distribution Width 23.6H, Platelet Count 468H, Mean Platelet Volume 5.7L, Neutrophils (%) (Auto) 82.3H, Lymphocytes (%) (Auto) 9.5L, Monocytes (%) (Auto) 5.6, Eosinophils (%) (Auto) 2.2, Basophils (%) (Auto) 0.4, Sodium Level 137, Potassium Level 4.2, Chloride Level 102, Carbon Dioxide Level 30, Anion Gap 5, Blood Urea Nitrogen 15, Creatinine 0.5L, Estimat Glomerular Filtration Rate , Glucose Level 122H, Calcium Level 8.5, Total Bilirubin 0.2, Aspartate Amino Transf (AST/SGOT) 108H, Alanine Aminotransferase (ALT/SGPT) 108H, Alkaline Phosphatase 219H, Total Protein 6.3L, Albumin 1.4L, Globulin 4.9, Albumin/Globulin Ratio 0.3L 11/13/18 07:30: White Blood Count 15.6H, Red Blood Count 3.67L, Hemoglobin 9.2L, Hematocrit 28.8L, Mean Corpuscular Volume 79L, Mean Corpuscular Hemoglobin 25.1L, Mean Corpuscular Hemoglobin Concent 31.9L, Red Cell Distribution Width 23.7H, Platelet Count 451H, Mean Platelet Volume 5.5L, Neutrophils (%) (Auto) 80.0H, Lymphocytes (%) (Auto) 11.8L, Monocytes (%) (Auto) 5.0, Eosinophils (%) (Auto) 2.4, Basophils (%) (Auto) 0.8 Current Medications Medications (Trade) Dose Ordered Sig/Lupe Route PRN Reason Start Time Stop Time Status Last Admin Dose Admin Acetaminophen (Tylenol) 650 mg Q4H PRN GT Mild Pain/Temp > 100.5 11/09/18 05:00 12/09/18 04:59 11/13/18 03:35 Albuterol/ Ipratropium (Albuterol/ Ipratropium) 3 ml Q4H PRN HHN Shortness of Breath 11/09/18 16:15 11/14/18 16:14 Albuterol/ Ipratropium (Albuterol/ Ipratropium) 3 ml Q6HRT HHN 11/09/18 19:00 11/14/18 18:59 11/13/18 07:34 Amlodipine Besylate (Norvasc) 10 mg DAILY GT 11/09/18 09:00 12/09/18 08:59 11/13/18 08:28 Bisacodyl (Dulcolax) 10 mg DAILY PRN RECTAL Constipation 11/09/18 05:00 12/09/18 04:59 Calcium Carbonate (Tums) 500 mg EVERY 8 HOURS GT 11/09/18 14:00 12/09/18 08:59 11/13/18 05:00 Chlorhexidine Gluconate (Corazon-Hex 2%) 1 applic DAILY@2000 TOPIC 11/12/18 20:00 12/12/18 19:59 11/12/18 20:21 Dextrose (Dextrose 50%) 25 ml Q30M PRN IV Hypoglycemia 11/09/18 04:45 12/09/18 04:44 Dextrose (Dextrose 50%) 50 ml Q30M PRN IV Hypoglycemia 11/09/18 04:45 12/09/18 04:44 11/09/18 09:09 Docusate Sodium (Colace) 200 mg BID GT 11/12/18 18:00 12/12/18 17:59 11/13/18 08:28 Enoxaparin Sodium (Lovenox) 40 mg DAILY SUBQ 11/09/18 09:00 12/09/18 08:59 11/12/18 08:52 Famotidine (Pepcid) 20 mg EVERY 12 HOURS GT 11/09/18 21:00 12/09/18 08:59 11/13/18 08:29 Furosemide (Lasix) 40 mg EVERY 12 HOURS GT 11/09/18 09:00 12/09/18 08:59 11/13/18 08:29 Heparin Sodium/ Sodium Chloride (Heparin 1000 units/500ml Premix) 1,000 unit ONCE PRN IV PICC LINE 11/13/18 09:00 11/14/18 23:59 Hydralazine HCl (Apresoline) 5 mg EVERY 8 HOURS GT 11/09/18 06:00 12/09/18 05:59 11/12/18 13:48 Insulin Aspart (NovoLOG) Q6HR SUBQ 11/09/18 06:00 12/09/18 05:59 11/12/18 17:36 Insulin Detemir (Levemir) 6 units BID SUBQ 11/09/18 09:00 12/09/18 08:59 11/12/18 17:36 Iron Sucrose 100 mg/Sodium Chloride 60 ml @ 240 mls/hr BEDTIME IVPB 11/11/18 21:00 11/15/18 21:14 11/12/18 21:12 Labetalol HCl (Normodyne) 200 mg Q8HR GT 11/09/18 06:00 12/09/18 05:59 11/13/18 05:00 Levetiracetam (Keppra) 1,500 mg Q12HR GT 11/09/18 09:00 12/09/18 08:59 11/13/18 08:30 Lidocaine HCl (Xylocaine 1% 30ml) 30 ml ONCE PRN INJ PICC LINE 11/13/18 09:00 11/14/18 23:59 Lorazepam (Ativan 2mg/ml 1ml) 2 mg DAILY PRN IVP For Seizures 11/09/18 05:00 11/16/18 04:59 Magnesium Hydroxide (Mom) 30 ml DAILY PRN GT Constipation 11/09/18 05:00 12/09/18 04:59 Magnesium Oxide (Mag-Ox 400mg) 400 mg EVERY 8 HOURS GT 11/09/18 14:00 12/09/18 08:59 11/13/18 05:00 Ondansetron HCl (Zofran) 4 mg Q6H PRN GT Nausea & Vomiting 11/09/18 05:00 12/09/18 04:59 Phenobarbital (PHENobarbital) 60 mg BID GT 11/09/18 09:00 12/09/18 08:59 11/13/18 08:31 Phenytoin (Dilantin) 100 mg Q8HR GT 11/09/18 06:00 12/09/18 05:59 11/13/18 06:00 Piperacillin Sod/ Tazobactam Sod 3.375 gm/Sodium Chloride 110 ml @ 27.5 mls/hr Q8H IVPB 11/09/18 06:00 11/16/18 05:59 11/13/18 05:00 Polyethylene Glycol (Miralax) 17 gm DAILYPRN PRN ORAL Constipation 11/12/18 10:30 12/12/18 10:29 Sennosides (Senokot) 8.6 mg EVERY 12 HOURS GT 11/09/18 21:00 12/09/18 08:59 11/13/18 08:29 Valproic Acid (Depakene) 500 mg EVERY 8 HOURS GT 11/09/18 06:00 12/09/18 05:59 11/13/18 05:00 Vancomycin HCl (Vanco rx to dose) 1 ea DAILY PRN MISC Per rx protocol 11/10/18 16:45 12/10/18 16:44 Vancomycin/Sodium Chloride 275 ml @ 183.333 mls/hr Q24H IVPB 11/11/18 18:00 11/16/18 17:59 11/12/18 17:45 Balbir Dejesus MD Nov 13, 2018 12:00
--- NOTE | 2018-11-13 12:21 | Infectious Diseases Prog Note ---
Assessment/Plan Assessment/Plan ASSESSMENT AND PLAN: 1. 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 - change picc line, patient came in with it - await picc line change - check surveillance blood cultures - monitor labs and chest x-ray - sacral wound management per surgery, note reviewed - d/w Dr. Treviño 2. Trach-vent respiratory failure. 3. Dysphagia, G-tube. 4. Anemia. 5. Diabetes. 6. Hypertension. 7. Large tongue. 8. Anoxic brain injury. 9. Weakness. 10. Poorly responsive. 11. History of seizures. 12. History of colon adenocarcinoma. 13. Skin care protocol. 14. Allergy to crawfish. 15. Social history negative. 16. Family history noncontributory. 17. MAR was noted. 18. Case was discussed with RN. 19. Continue treatment per primary consultants. 20. Orders were ordered, entered, and noted. 21. Continue wound care protocol. 22. Continue blood sugar and blood pressure treatment per primary consultants for diabetes and hypertension. 23. vre colonization and isolation Subjective Constitutional: Denies: fever HEENT: Reports: congestion Respiratory: Reports: shortness of breath Cardiovascular: Denies: chest pain Gastrointestinal/Abdominal: Denies: nausea, vomiting Genitourinary: Reports: other - + nava Neurologic: Denies: headache Psychiatric: Denies: depression Skin: Denies: rash Allergies: Coded Allergies: Crayfish (Unverified Allergy, Unknown, 11/11/18) Uncoded Allergies: Crawfish (Allergy, Unknown, 11/09/18) Objective Vital Signs Last 24 Hour Vital Signs Date Time Temp Pulse Resp B/P (MAP) Pulse Ox O2 Delivery O2 Flow Rate FiO2 11/13/18 11:51 97.9 92 18 117/61 (79) 100 11/13/18 11:28 93 21 30 11/13/18 09:15 91 23 30 11/13/18 09:00 Mechanical Ventilator 11/13/18 08:28 97 114/57 11/13/18 08:00 30.0 11/13/18 08:00 96 11/13/18 08:00 97.5 95 26 114/53 (73) 100 11/13/18 07:29 98 21 100 Mechanical Ventilator 30 100 22 11/13/18 06:00 107/57 11/13/18 05:11 86 23 30 11/13/18 05:00 105 141/82 11/13/18 04:05 99.1 11/13/18 04:00 Mechanical Ventilator 11/13/18 04:00 30.0 11/13/18 03:25 100.5 105 26 141/82 (101) 100 11/13/18 03:23 104 11/13/18 02:34 91 29 30 11/13/18 01:15 91 24 100 Mechanical Ventilator 30 94 19 30 11/13/18 00:00 92 11/13/18 00:00 Mechanical Ventilator 11/13/18 00:00 30.0 11/13/18 00:00 99.0 93 24 138/78 (98) 100 11/12/18 23:19 93 26 30 11/12/18 21:59 112/78 11/12/18 21:24 91 24 30 11/12/18 21:12 101 138/72 11/12/18 20:00 101 11/12/18 20:00 Mechanical Ventilator 11/12/18 20:00 100.6 101 16 138/72 (94) 100 11/12/18 20:00 30.0 11/12/18 19:43 100 22 100 Mechanical Ventilator 30 99 26 30 11/12/18 17:01 101 25 30 11/12/18 16:00 Mechanical Ventilator 11/12/18 16:00 30.0 11/12/18 16:00 102.0 103 24 146/74 (98) 100 11/12/18 16:00 104 11/12/18 14:30 100 24 30 11/12/18 13:48 134/83 11/12/18 13:47 99 134/83 11/12/18 12:52 101 26 100 Mechanical Ventilator 30 98 22 30 Height (Feet): 5 Height (Inches): 8.00 Weight (Pounds): 174 HEENT: normocephalic, status post trach Respiratory/Chest: crackles/rales, rhonchi - bilaterally Cardiovascular: normal rate, regular rhythm Abdomen: normal bowel sounds, soft, non tender, no organomegaly Objective 11/11/18 - chest x-ray - IMPRESSION: 1. Hypoventilatory lungs. Elevated right hemidiaphragm. Slightly improved vascular congestion. Similar bibasilar lung atelectasis and airspace disease. 2. Query right pleural effusion. 2-D echo - no vegetations mentioned, report noted sacral x-ray - no osteo mentioned, report noted Laboratory Tests Test 11/13/18 04:00 11/13/18 07:30 White Blood Count 16.0 K/UL (4.8-10.8) #H 15.6 K/UL (4.8-10.8) H Red Blood Count 3.87 M/UL (4.20-5.40) L 3.67 M/UL (4.20-5.40) L Hemoglobin 9.7 G/DL (12.0-16.0) L 9.2 G/DL (12.0-16.0) L Hematocrit 30.4 % (37.0-47.0) L 28.8 % (37.0-47.0) L Mean Corpuscular Volume 79 FL (80-99) L 79 FL (80-99) L Mean Corpuscular Hemoglobin 25.0 PG (27.0-31.0) L 25.1 PG (27.0-31.0) L Mean Corpuscular Hemoglobin Concent 31.9 G/DL (32.0-36.0) L 31.9 G/DL (32.0-36.0) L Red Cell Distribution Width 23.6 % (11.6-14.8) H 23.7 % (11.6-14.8) H Platelet Count 468 K/UL (150-450) H 451 K/UL (150-450) H Mean Platelet Volume 5.7 FL (6.5-10.1) L 5.5 FL (6.5-10.1) L Neutrophils (%) (Auto) 82.3 % (45.0-75.0) H 80.0 % (45.0-75.0) H Lymphocytes (%) (Auto) 9.5 % (20.0-45.0) L 11.8 % (20.0-45.0) L Monocytes (%) (Auto) 5.6 % (1.0-10.0) 5.0 % (1.0-10.0) Eosinophils (%) (Auto) 2.2 % (0.0-3.0) 2.4 % (0.0-3.0) Basophils (%) (Auto) 0.4 % (0.0-2.0) 0.8 % (0.0-2.0) Sodium Level 137 MMOL/L (136-145) Potassium Level 4.2 MMOL/L (3.5-5.1) Chloride Level 102 MMOL/L (98-107) Carbon Dioxide Level 30 MMOL/L (21-32) Anion Gap 5 mmol/L (5-15) Blood Urea Nitrogen 15 mg/dL (7-18) Creatinine 0.5 MG/DL (0.55-1.30) L Estimat Glomerular Filtration Rate mL/min (>60) Glucose Level 122 MG/DL (74-106) H Calcium Level 8.5 MG/DL (8.5-10.1) Total Bilirubin 0.2 MG/DL (0.2-1.0) Aspartate Amino Transf (AST/SGOT) 108 U/L (15-37) H Alanine Aminotransferase (ALT/SGPT) 108 U/L (12-78) H Alkaline Phosphatase 219 U/L (46-116) H Total Protein 6.3 G/DL (6.4-8.2) L Albumin 1.4 G/DL (3.4-5.0) L Globulin 4.9 g/dL Albumin/Globulin Ratio 0.3 (1.0-2.7) L Current Medications Medications (Trade) Dose Ordered Sig/Lupe Route PRN Reason Start Time Stop Time Status Last Admin Dose Admin Acetaminophen (Tylenol) 650 mg Q4H PRN GT Mild Pain/Temp > 100.5 11/09/18 05:00 12/09/18 04:59 11/13/18 03:35 Albuterol/ Ipratropium (Albuterol/ Ipratropium) 3 ml Q4H PRN HHN Shortness of Breath 11/09/18 16:15 11/14/18 16:14 Albuterol/ Ipratropium (Albuterol/ Ipratropium) 3 ml Q6HRT HHN 11/09/18 19:00 11/14/18 18:59 11/13/18 07:34 Amlodipine Besylate (Norvasc) 10 mg DAILY GT 11/09/18 09:00 12/09/18 08:59 11/13/18 08:28 Bisacodyl (Dulcolax) 10 mg DAILY PRN RECTAL Constipation 11/09/18 05:00 12/09/18 04:59 Calcium Carbonate (Tums) 500 mg EVERY 8 HOURS GT 11/09/18 14:00 12/09/18 08:59 11/13/18 05:00 Chlorhexidine Gluconate (Corazon-Hex 2%) 1 applic DAILY@2000 TOPIC 11/12/18 20:00 12/12/18 19:59 11/12/18 20:21 Dextrose (Dextrose 50%) 25 ml Q30M PRN IV Hypoglycemia 11/09/18 04:45 12/09/18 04:44 Dextrose (Dextrose 50%) 50 ml Q30M PRN IV Hypoglycemia 11/09/18 04:45 12/09/18 04:44 11/09/18 09:09 Docusate Sodium (Colace) 200 mg BID GT 11/12/18 18:00 12/12/18 17:59 11/13/18 08:28 Enoxaparin Sodium (Lovenox) 40 mg DAILY SUBQ 11/09/18 09:00 12/09/18 08:59 11/12/18 08:52 Famotidine (Pepcid) 20 mg EVERY 12 HOURS GT 11/09/18 21:00 12/09/18 08:59 11/13/18 08:29 Furosemide (Lasix) 40 mg EVERY 12 HOURS GT 11/09/18 09:00 12/09/18 08:59 11/13/18 08:29 Heparin Sodium/ Sodium Chloride (Heparin 1000 units/500ml Premix) 1,000 unit ONCE PRN IV PICC LINE 11/13/18 09:00 11/14/18 23:59 Hydralazine HCl (Apresoline) 5 mg EVERY 8 HOURS GT 11/09/18 06:00 12/09/18 05:59 11/12/18 13:48 Insulin Aspart (NovoLOG) Q6HR SUBQ 11/09/18 06:00 12/09/18 05:59 11/12/18 17:36 Insulin Detemir (Levemir) 6 units BID SUBQ 11/09/18 09:00 12/09/18 08:59 11/12/18 17:36 Iron Sucrose 100 mg/Sodium Chloride 60 ml @ 240 mls/hr BEDTIME IVPB 11/11/18 21:00 11/15/18 21:14 11/12/18 21:12 Labetalol HCl (Normodyne) 200 mg Q8HR GT 11/09/18 06:00 12/09/18 05:59 11/13/18 05:00 Levetiracetam (Keppra) 1,500 mg Q12HR GT 11/09/18 09:00 12/09/18 08:59 11/13/18 08:30 Lidocaine HCl (Xylocaine 1% 30ml) 30 ml ONCE PRN INJ PICC LINE 11/13/18 09:00 11/14/18 23:59 Lorazepam (Ativan 2mg/ml 1ml) 2 mg DAILY PRN IVP For Seizures 11/09/18 05:00 11/16/18 04:59 Magnesium Hydroxide (Mom) 30 ml DAILY PRN GT Constipation 11/09/18 05:00 12/09/18 04:59 Magnesium Oxide (Mag-Ox 400mg) 400 mg EVERY 8 HOURS GT 11/09/18 14:00 12/09/18 08:59 11/13/18 05:00 Ondansetron HCl (Zofran) 4 mg Q6H PRN GT Nausea & Vomiting 11/09/18 05:00 12/09/18 04:59 Phenobarbital (PHENobarbital) 60 mg BID GT 11/09/18 09:00 12/09/18 08:59 11/13/18 08:31 Phenytoin (Dilantin) 100 mg Q8HR GT 11/09/18 06:00 12/09/18 05:59 11/13/18 06:00 Piperacillin Sod/ Tazobactam Sod 3.375 gm/Sodium Chloride 110 ml @ 27.5 mls/hr Q8H IVPB 11/09/18 06:00 11/16/18 05:59 11/13/18 05:00 Polyethylene Glycol (Miralax) 17 gm DAILYPRN PRN ORAL Constipation 11/12/18 10:30 12/12/18 10:29 Sennosides (Senokot) 8.6 mg EVERY 12 HOURS GT 11/09/18 21:00 12/09/18 08:59 11/13/18 08:29 Valproic Acid (Depakene) 500 mg EVERY 8 HOURS GT 11/09/18 06:00 12/09/18 05:59 11/13/18 05:00 Vancomycin HCl (Vanco rx to dose) 1 ea DAILY PRN MISC Per rx protocol 11/10/18 16:45 12/10/18 16:44 Vancomycin/Sodium Chloride 275 ml @ 183.333 mls/hr Q24H IVPB 11/11/18 18:00 11/16/18 17:59 11/12/18 17:45 Dasha Crews MD Nov 13, 2018 12:21
--- NOTE | 2018-11-13 13:01 | NUR ---
NURSE NOTES: Dr. Crews at nurse station, made aware of 1 bottle positive blood culture. Dr. Crews acknowledged, no new orders given at this time. Noted. Will continue to monitor patient.
--- NOTE | 2018-11-13 13:06 | GI Progress Note ---
Assessment/Plan Problems: (1) Abnormal LFTs ICD Codes: R94.5 - Abnormal results of liver function studies SNOMED: 715465191 (2) Decubitus skin ulcer ICD Codes: L89.90 - Pressure ulcer of unspecified site, unspecified stage SNOMED: 454121512 (3) Protein calorie malnutrition ICD Codes: E46 - Unspecified protein-calorie malnutrition SNOMED: 797482104 (4) Colon adenocarcinoma ICD Codes: C18.9 - Malignant neoplasm of colon, unspecified SNOMED: 770751421 (5) Sepsis ICD Codes: A41.9 - Sepsis, unspecified organism SNOMED: 85867790 (6) Tracheostomy dependence ICD Codes: Z93.0 - Tracheostomy status SNOMED: 265131795 (7) Gastrostomy in place ICD Codes: Z93.1 - Gastrostomy status SNOMED: 59506052, 27699677, 658213003 Status: unchanged Status Narrative Discussed with Dr. Humphries. Assessment/Plan Assessment - Iron deficiency anemia - abnormal LFT - ? meds, passive congestion , other - dysphagia, s/p GT - Resp, failure, s/p Trach - hepatitis panel negative Recommendations - Continue TF - Monitor LFT - declining - IV Iron - follow CBC - Conservative approach given poor health The patient was seen and examined at bedside and all new and available data was reviewed in the patients chart. I agree with the above findings, impression and plan. (Patient seen earlier today. Signature stamp does not reflect patient encounter time.). - Casper Humphries MD Subjective Subjective limited Objective Last 24 Hour Vital Signs Date Time Temp Pulse Resp B/P (MAP) Pulse Ox O2 Delivery O2 Flow Rate FiO2 11/13/18 12:00 Mechanical Ventilator 11/13/18 12:00 30.0 11/13/18 11:51 97.9 92 18 117/61 (79) 100 11/13/18 11:28 93 21 30 11/13/18 09:15 91 23 30 11/13/18 09:00 Mechanical Ventilator 11/13/18 08:28 97 114/57 11/13/18 08:00 30.0 11/13/18 08:00 96 11/13/18 08:00 97.5 95 26 114/53 (73) 100 11/13/18 07:29 98 21 100 Mechanical Ventilator 30 100 22 11/13/18 06:00 107/57 11/13/18 05:11 86 23 30 11/13/18 05:00 105 141/82 11/13/18 04:05 99.1 11/13/18 04:00 Mechanical Ventilator 11/13/18 04:00 30.0 11/13/18 03:25 100.5 105 26 141/82 (101) 100 11/13/18 03:23 104 11/13/18 02:34 91 29 30 11/13/18 01:15 91 24 100 Mechanical Ventilator 30 94 19 30 11/13/18 00:00 92 11/13/18 00:00 Mechanical Ventilator 11/13/18 00:00 30.0 11/13/18 00:00 99.0 93 24 138/78 (98) 100 11/12/18 23:19 93 26 30 11/12/18 21:59 112/78 11/12/18 21:24 91 24 30 11/12/18 21:12 101 138/72 11/12/18 20:00 101 11/12/18 20:00 Mechanical Ventilator 11/12/18 20:00 100.6 101 16 138/72 (94) 100 11/12/18 20:00 30.0 11/12/18 19:43 100 22 100 Mechanical Ventilator 30 99 26 30 11/12/18 17:01 101 25 30 11/12/18 16:00 Mechanical Ventilator 11/12/18 16:00 30.0 11/12/18 16:00 102.0 103 24 146/74 (98) 100 11/12/18 16:00 104 11/12/18 14:30 100 24 30 11/12/18 13:48 134/83 11/12/18 13:47 99 134/83 Intake and Output 11/12/18 11/13/18 19:00 07:00 Intake Total 1765.833 ml 525.0 ml Output Total 600 ml 300 ml Balance 1165.833 ml 225.0 ml Intake Free Water 100 ml 50 ml IV Total 1215.833 ml 225.0 ml Tube Feeding 450 ml 250 ml Output Urine Total 600 ml 300 ml Laboratory Tests Test 11/13/18 04:00 11/13/18 07:30 White Blood Count 16.0 K/UL (4.8-10.8) #H 15.6 K/UL (4.8-10.8) H Red Blood Count 3.87 M/UL (4.20-5.40) L 3.67 M/UL (4.20-5.40) L Hemoglobin 9.7 G/DL (12.0-16.0) L 9.2 G/DL (12.0-16.0) L Hematocrit 30.4 % (37.0-47.0) L 28.8 % (37.0-47.0) L Mean Corpuscular Volume 79 FL (80-99) L 79 FL (80-99) L Mean Corpuscular Hemoglobin 25.0 PG (27.0-31.0) L 25.1 PG (27.0-31.0) L Mean Corpuscular Hemoglobin Concent 31.9 G/DL (32.0-36.0) L 31.9 G/DL (32.0-36.0) L Red Cell Distribution Width 23.6 % (11.6-14.8) H 23.7 % (11.6-14.8) H Platelet Count 468 K/UL (150-450) H 451 K/UL (150-450) H Mean Platelet Volume 5.7 FL (6.5-10.1) L 5.5 FL (6.5-10.1) L Neutrophils (%) (Auto) 82.3 % (45.0-75.0) H 80.0 % (45.0-75.0) H Lymphocytes (%) (Auto) 9.5 % (20.0-45.0) L 11.8 % (20.0-45.0) L Monocytes (%) (Auto) 5.6 % (1.0-10.0) 5.0 % (1.0-10.0) Eosinophils (%) (Auto) 2.2 % (0.0-3.0) 2.4 % (0.0-3.0) Basophils (%) (Auto) 0.4 % (0.0-2.0) 0.8 % (0.0-2.0) Sodium Level 137 MMOL/L (136-145) Potassium Level 4.2 MMOL/L (3.5-5.1) Chloride Level 102 MMOL/L (98-107) Carbon Dioxide Level 30 MMOL/L (21-32) Anion Gap 5 mmol/L (5-15) Blood Urea Nitrogen 15 mg/dL (7-18) Creatinine 0.5 MG/DL (0.55-1.30) L Estimat Glomerular Filtration Rate mL/min (>60) Glucose Level 122 MG/DL (74-106) H Calcium Level 8.5 MG/DL (8.5-10.1) Total Bilirubin 0.2 MG/DL (0.2-1.0) Aspartate Amino Transf (AST/SGOT) 108 U/L (15-37) H Alanine Aminotransferase (ALT/SGPT) 108 U/L (12-78) H Alkaline Phosphatase 219 U/L (46-116) H Total Protein 6.3 G/DL (6.4-8.2) L Albumin 1.4 G/DL (3.4-5.0) L Globulin 4.9 g/dL Albumin/Globulin Ratio 0.3 (1.0-2.7) L Microbiology Date/Time Source Procedure Growth Status 11/12/18 17:45 Blood Blood Culture - Preliminary Resulted Height (Feet): 5 Height (Inches): 8.00 Weight (Pounds): 174 General Appearance: no apparent distress Cardiovascular: normal rate Respiratory/Chest: normal breath sounds, no respiratory distress Abdominal Exam: normal bowel sounds, non tender, soft, GT site Extremities: non-tender Aysha Sykes SIGNAL INTELLIGENCE ANALYST Nov 13, 2018 13:06
--- NOTE | 2018-11-13 15:07 | Surgery Progress Note ---
Surgery Progress Note Subjective Additional Comments no acute events exam unchanged and stable family at bedside. Objective Last 24 Hour Vital Signs Date Time Temp Pulse Resp B/P (MAP) Pulse Ox O2 Delivery O2 Flow Rate FiO2 11/13/18 13:50 94 108/74 11/13/18 13:50 108/74 11/13/18 13:12 93 18 30 11/13/18 12:00 96 11/13/18 12:00 Mechanical Ventilator 11/13/18 12:00 30.0 11/13/18 11:51 97.9 92 18 117/61 (79) 100 11/13/18 11:28 93 21 30 11/13/18 09:15 91 23 30 11/13/18 09:00 Mechanical Ventilator 11/13/18 08:28 97 114/57 11/13/18 08:00 30.0 11/13/18 08:00 96 11/13/18 08:00 97.5 95 26 114/53 (73) 100 11/13/18 07:29 98 21 100 Mechanical Ventilator 30 100 22 11/13/18 06:00 107/57 11/13/18 05:11 86 23 30 11/13/18 05:00 105 141/82 11/13/18 04:05 99.1 11/13/18 04:00 Mechanical Ventilator 11/13/18 04:00 30.0 11/13/18 03:25 100.5 105 26 141/82 (101) 100 11/13/18 03:23 104 11/13/18 02:34 91 29 30 11/13/18 01:15 91 24 100 Mechanical Ventilator 30 94 19 30 11/13/18 00:00 92 11/13/18 00:00 Mechanical Ventilator 11/13/18 00:00 30.0 11/13/18 00:00 99.0 93 24 138/78 (98) 100 11/12/18 23:19 93 26 30 11/12/18 21:59 112/78 11/12/18 21:24 91 24 30 11/12/18 21:12 101 138/72 11/12/18 20:00 101 11/12/18 20:00 Mechanical Ventilator 11/12/18 20:00 100.6 101 16 138/72 (94) 100 11/12/18 20:00 30.0 11/12/18 19:43 100 22 100 Mechanical Ventilator 30 99 26 30 11/12/18 17:01 101 25 30 11/12/18 16:00 Mechanical Ventilator 11/12/18 16:00 30.0 11/12/18 16:00 102.0 103 24 146/74 (98) 100 11/12/18 16:00 104 I&O Intake and Output 11/12/18 11/13/18 19:00 07:00 Intake Total 1765.833 ml 525.0 ml Output Total 600 ml 300 ml Balance 1165.833 ml 225.0 ml Intake Free Water 100 ml 50 ml IV Total 1215.833 ml 225.0 ml Tube Feeding 450 ml 250 ml Output Urine Total 600 ml 300 ml Dressing: saturated Wound: other Drains: other Cardiovascular: RSR Respiratory: clear Abdomen: soft, present bowel sounds, non-distended Extremities: no cyanosis, other Laboratory Tests Test 11/13/18 04:00 11/13/18 07:30 White Blood Count 16.0 K/UL (4.8-10.8) #H 15.6 K/UL (4.8-10.8) H Red Blood Count 3.87 M/UL (4.20-5.40) L 3.67 M/UL (4.20-5.40) L Hemoglobin 9.7 G/DL (12.0-16.0) L 9.2 G/DL (12.0-16.0) L Hematocrit 30.4 % (37.0-47.0) L 28.8 % (37.0-47.0) L Mean Corpuscular Volume 79 FL (80-99) L 79 FL (80-99) L Mean Corpuscular Hemoglobin 25.0 PG (27.0-31.0) L 25.1 PG (27.0-31.0) L Mean Corpuscular Hemoglobin Concent 31.9 G/DL (32.0-36.0) L 31.9 G/DL (32.0-36.0) L Red Cell Distribution Width 23.6 % (11.6-14.8) H 23.7 % (11.6-14.8) H Platelet Count 468 K/UL (150-450) H 451 K/UL (150-450) H Mean Platelet Volume 5.7 FL (6.5-10.1) L 5.5 FL (6.5-10.1) L Neutrophils (%) (Auto) 82.3 % (45.0-75.0) H 80.0 % (45.0-75.0) H Lymphocytes (%) (Auto) 9.5 % (20.0-45.0) L 11.8 % (20.0-45.0) L Monocytes (%) (Auto) 5.6 % (1.0-10.0) 5.0 % (1.0-10.0) Eosinophils (%) (Auto) 2.2 % (0.0-3.0) 2.4 % (0.0-3.0) Basophils (%) (Auto) 0.4 % (0.0-2.0) 0.8 % (0.0-2.0) Sodium Level 137 MMOL/L (136-145) Potassium Level 4.2 MMOL/L (3.5-5.1) Chloride Level 102 MMOL/L (98-107) Carbon Dioxide Level 30 MMOL/L (21-32) Anion Gap 5 mmol/L (5-15) Blood Urea Nitrogen 15 mg/dL (7-18) Creatinine 0.5 MG/DL (0.55-1.30) L Estimat Glomerular Filtration Rate mL/min (>60) Glucose Level 122 MG/DL (74-106) H Calcium Level 8.5 MG/DL (8.5-10.1) Total Bilirubin 0.2 MG/DL (0.2-1.0) Aspartate Amino Transf (AST/SGOT) 108 U/L (15-37) H Alanine Aminotransferase (ALT/SGPT) 108 U/L (12-78) H Alkaline Phosphatase 219 U/L (46-116) H Total Protein 6.3 G/DL (6.4-8.2) L Albumin 1.4 G/DL (3.4-5.0) L Globulin 4.9 g/dL Albumin/Globulin Ratio 0.3 (1.0-2.7) L Plan Problems: (1) Fever (2) Tongue abnormality Assessment & Plan: patients jaw clenched closed and tongue has been stuck for some time. tongue split from middle teeth and now in two. edema and unable to reduce keep tongue moist. apply lube jelly prn dryness. will monitor do not recommend surgical intervention for this current medical condition (3) Tracheostomy dependence (4) Sepsis Assessment & Plan: gb no stones 6mm polyp no acute surgical intervention planned trend labs DAILY ESTIMATED NEEDS: Needs based on Critical care, sepsis, wound 60kg adj 22-30 kcals/kg [id number] total kcals 1.25-2 g protein/kg 75-120 g total protein Fluid per MD, on lasix NUTRITION DIAGNOSIS: * Swallowing difficulty r/t respiratory status as evidenced by pt is vent dep via trach and PEG dep. * Increased kcal and pro needs r/t wound healing and sepsis as evidenced by pt w/ sacral and R heel wounds, febrile (Tmax 101.5). CURRENT TF: Jevity 1.2 @50 ml/hr x16 hrs ENTERAL NUTRITION RECOMMENDATIONS: Glucerna 1.2 @65ml/hr x18 hrs + Prosource x1 daily to provide 1170ml, 1404 kcal, 70g pro + 11g pro, 942 free H2O - REC TF CHANGE AND INCREASE TO BETTER MEET EST NEEDS - TF TO BE HELD FOR ONE HR BEFORE AND AFTER DILANTIN MEDS - START @20ML/HR, ADVANCE TOLERATED 15ML/HR Q4-6 HRS TO GOAL - FLUSH PER MD, HOB OVRE 30 DEGREES ADDITIONAL RECOMMENDATIONS: 1) CALIBRATED BED SCALE W/ ADDED P200 MATTRESS + PUMP 2) ON LASIX, MONITOR LYTES AND HYDRATION STATUS DAILY 3) TF TO RUN A MAX OF 18 HRS/DAY W/ DILANTIN TID PER PHARMACY 4) REC TF CHANGE TO CARB CONTROL FORMULA 5) WOUND CARE: ADD CHAYITO BID + VIT C 250MG DAILY (5) Fever (6) Decubitus skin ulcer Assessment & Plan: Pt presented on admission with full thickness sacral pressure injury.Base of wound is 20% necrotic , 80% slough. borders are macerated . Mild odor noted. (L)8.4cm x (W) 6.5cm. Periwound skin tone is darker without erythema,induration or elevation in skin temp. Both heels are non -blanchable and both are fluctuant when palpated. Tx.Plan: Clean wound with saline. Apply Therahoney. Aply Moisture Barrier paste periwound. Cover with Optifoam drsg. Change every 3 days and prn. Apply Cavilon Skin BArrier to both heels. Cover each heel with Optifoam drsg. Change every 7 days and prn. APM/DEIRDRE mattress overlay. Reposition at least every 2hours or as tolerated. Off-load heels with pillow. will follow with recs thank you Preet Hylton Nov 13, 2018 15:07
[2018-11-13 16:00] VITALS: BP 136/69
--- NOTE | 2018-11-13 16:15 | Cardiology Progress Note ---
Assessment/Plan Status: stable Assessment/Plan Assessment: Elevated troponin Hypertension Hepatitis HIV UTI Fever PLAN: -Empiric ABX, follow culture -Trend troponin, likely demand ischemia -Defer further work up -Replete electrolytes -Manage blood pressures -Trach care Subjective Cardiovascular: Reports: no symptoms Respiratory: Reports: no symptoms Gastrointestinal/Abdominal: Reports: no symptoms Genitourinary: Reports: no symptoms Subjective NO acute events, nursing notes reviewed Objective Last 24 Hour Vital Signs Date Time Temp Pulse Resp B/P (MAP) Pulse Ox O2 Delivery O2 Flow Rate FiO2 11/13/18 16:00 Mechanical Ventilator 11/13/18 16:00 30.0 11/13/18 13:50 94 108/74 11/13/18 13:50 108/74 11/13/18 13:12 93 18 30 11/13/18 12:00 96 11/13/18 12:00 Mechanical Ventilator 11/13/18 12:00 30.0 11/13/18 11:51 97.9 92 18 117/61 (79) 100 11/13/18 11:28 93 21 30 11/13/18 09:15 91 23 30 11/13/18 09:00 Mechanical Ventilator 11/13/18 08:28 97 114/57 11/13/18 08:00 30.0 11/13/18 08:00 96 11/13/18 08:00 97.5 95 26 114/53 (73) 100 11/13/18 07:29 98 21 100 Mechanical Ventilator 30 100 22 11/13/18 06:00 107/57 11/13/18 05:11 86 23 30 11/13/18 05:00 105 141/82 11/13/18 04:05 99.1 11/13/18 04:00 Mechanical Ventilator 11/13/18 04:00 30.0 11/13/18 03:25 100.5 105 26 141/82 (101) 100 11/13/18 03:23 104 11/13/18 02:34 91 29 30 11/13/18 01:15 91 24 100 Mechanical Ventilator 30 94 19 30 11/13/18 00:00 92 11/13/18 00:00 Mechanical Ventilator 11/13/18 00:00 30.0 11/13/18 00:00 99.0 93 24 138/78 (98) 100 11/12/18 23:19 93 26 30 11/12/18 21:59 112/78 11/12/18 21:24 91 24 30 11/12/18 21:12 101 138/72 11/12/18 20:00 101 11/12/18 20:00 Mechanical Ventilator 11/12/18 20:00 100.6 101 16 138/72 (94) 100 11/12/18 20:00 30.0 11/12/18 19:43 100 22 100 Mechanical Ventilator 30 99 26 30 11/12/18 17:01 101 25 30 General Appearance: no apparent distress EENT: PERRL/EOMI, normal ENT inspection, TMs normal, pharynx normal Neck: non-tender, normal alignment, supple, normal inspection, no JVD Rhythm: NSR Cardiovascular: normal peripheral pulses, normal rate Respiratory/Chest: lungs clear, crackles/rales, rhonchi - bilaterally Abdomen: normal bowel sounds, non tender, soft, no organomegaly, no mass Extremities: normal range of motion, non-tender, normal inspection, no calf tenderness, no swelling Neurologic: shampoo assistant II-XII grossly normal, no motor/sensory deficits Intake and Output 11/12/18 11/13/18 19:00 07:00 Intake Total 1765.833 ml 525.0 ml Output Total 600 ml 300 ml Balance 1165.833 ml 225.0 ml Intake Free Water 100 ml 50 ml IV Total 1215.833 ml 225.0 ml Tube Feeding 450 ml 250 ml Output Urine Total 600 ml 300 ml Laboratory Tests Test 11/13/18 04:00 11/13/18 07:30 White Blood Count 16.0 K/UL (4.8-10.8) #H 15.6 K/UL (4.8-10.8) H Red Blood Count 3.87 M/UL (4.20-5.40) L 3.67 M/UL (4.20-5.40) L Hemoglobin 9.7 G/DL (12.0-16.0) L 9.2 G/DL (12.0-16.0) L Hematocrit 30.4 % (37.0-47.0) L 28.8 % (37.0-47.0) L Mean Corpuscular Volume 79 FL (80-99) L 79 FL (80-99) L Mean Corpuscular Hemoglobin 25.0 PG (27.0-31.0) L 25.1 PG (27.0-31.0) L Mean Corpuscular Hemoglobin Concent 31.9 G/DL (32.0-36.0) L 31.9 G/DL (32.0-36.0) L Red Cell Distribution Width 23.6 % (11.6-14.8) H 23.7 % (11.6-14.8) H Platelet Count 468 K/UL (150-450) H 451 K/UL (150-450) H Mean Platelet Volume 5.7 FL (6.5-10.1) L 5.5 FL (6.5-10.1) L Neutrophils (%) (Auto) 82.3 % (45.0-75.0) H 80.0 % (45.0-75.0) H Lymphocytes (%) (Auto) 9.5 % (20.0-45.0) L 11.8 % (20.0-45.0) L Monocytes (%) (Auto) 5.6 % (1.0-10.0) 5.0 % (1.0-10.0) Eosinophils (%) (Auto) 2.2 % (0.0-3.0) 2.4 % (0.0-3.0) Basophils (%) (Auto) 0.4 % (0.0-2.0) 0.8 % (0.0-2.0) Sodium Level 137 MMOL/L (136-145) Potassium Level 4.2 MMOL/L (3.5-5.1) Chloride Level 102 MMOL/L (98-107) Carbon Dioxide Level 30 MMOL/L (21-32) Anion Gap 5 mmol/L (5-15) Blood Urea Nitrogen 15 mg/dL (7-18) Creatinine 0.5 MG/DL (0.55-1.30) L Estimat Glomerular Filtration Rate mL/min (>60) Glucose Level 122 MG/DL (74-106) H Calcium Level 8.5 MG/DL (8.5-10.1) Total Bilirubin 0.2 MG/DL (0.2-1.0) Aspartate Amino Transf (AST/SGOT) 108 U/L (15-37) H Alanine Aminotransferase (ALT/SGPT) 108 U/L (12-78) H Alkaline Phosphatase 219 U/L (46-116) H Total Protein 6.3 G/DL (6.4-8.2) L Albumin 1.4 G/DL (3.4-5.0) L Globulin 4.9 g/dL Albumin/Globulin Ratio 0.3 (1.0-2.7) L Microbiology Date/Time Source Procedure Growth Status 11/12/18 17:45 Blood Blood Culture - Preliminary Resulted Eloy Bryson MD Nov 13, 2018 16:15
--- NOTE | 2018-11-13 16:20 | NUR ---
NURSE NOTES: Called radiology department to follow up on x-ray for PICC placement check. medical technologist chemistry stated to check back in twenty minutes. Noted.
--- NOTE | 2018-11-13 16:40 | NUR ---
NURSE NOTES: Called drain technician x 3, no answer. Notified charge nurse.
--- NOTE | 2018-11-13 16:57 | NUR ---
DISCHARGE PLANNING: NOTE VM LEFT FOR ALLISON [phone] REGARDING DC PLANNING AWAITING CALL BACK
--- NOTE | 2018-11-13 17:00 | NUR ---
NURSE NOTES: geothermal technician on unit, notified them of x-ray for PICC placement check, associate professor of radiology acknowledged, informed this nurse will check with radiologist. Noted.
--- NOTE | 2018-11-13 19:10 | NUR ---
NURSE NOTES: Received report from Jani RN, pt. in bed obtunded, opens eyes but non-verbal, engine monitor on, no signs or symptoms of acute cardiac or respiratory distress noted, bed in lowest position and call light within easy reach, pt. appears to be resting comfortably, bed alarm on, side rails x's3 and safety brakes engaged, pt. appears to be tolerating current vent settings well- AC 14, TV 375, Fio2 @30% and peep 5- no distress noted, Side rails padded for seizure precautions- no seizure activity noted, Jevity 1.2 running via G tube at 50cc/hr- no residual noted- Feeding will be held now before Dilantin administration, pt. is clean and dry, HANNAH PICC intact and patent- orders to remove PICC and send PICC for culture. Pt. has new KAITLYNN PICC- intact and patent- per endorsement okay to use PICC, safety measures continued, will continue with plan of care.
--- NOTE | 2018-11-13 19:30 | NUR ---
HAND-OFF: Report given to CHARLEE Harris.
--- NOTE | 2018-11-13 19:49 | General Progress Note ---
Assessment/Plan Status: stable Assessment/Plan: Assessment/Plan Status: stable Assessment/Plan: 78-year-old female who is trach dependent who was brought in by care home for sepsis and found to have UTI. #Sepsis secondary to UTI, GPC Staph Epidermidis bacteremia, Line associated infection - patient arrived to the Hospital with PICC ID consult appreciate Rec Pseudomonal pneumonia, UTI due to Enterococcus F., VRE colonized Remove PICC and place new line Continue antibiotics per ID: Continue Zosyn and vancomycin, anti fungal added Repeat blood cultures Echo to eval for vegetation negative sputum cultures Chest x-ray reviewed: Atelectasis # Transaminitis - trend lft's - GI consult, appreciate recs - ab us: reviewed - f/u hep panel #Elevated troponin secondary to sepsis versus ACS Cardiology consult, appreciate recs Medications per cardiology #Hypertension- improved Continue current medications, hydralazine as needed hypertension #Vent dependent Pulmonary consult, appreciate recs Vent management per pulmonary #Hypokalemia Replace, continue to monitor Time of note may not reflect time of patient encounter Pulsed reviewed: Full code Subjective ROS Limited/Unobtainable: Yes Allergies: Coded Allergies: Crayfish (Unverified Allergy, Unknown, 11/11/18) Uncoded Allergies: Crawfish (Allergy, Unknown, 11/09/18) All Systems: reviewed and negative except above Objective Last 24 Hour Vital Signs Date Time Temp Pulse Resp B/P (MAP) Pulse Ox O2 Delivery O2 Flow Rate FiO2 11/13/18 18:57 98 26 100 Mechanical Ventilator 30 98 26 11/13/18 17:20 93 21 30 11/13/18 16:00 Mechanical Ventilator 11/13/18 16:00 30.0 11/13/18 16:00 98.4 95 18 136/69 (91) 100 11/13/18 16:00 96 11/13/18 15:27 94 21 30 11/13/18 13:50 94 108/74 11/13/18 13:50 108/74 11/13/18 13:12 93 18 30 11/13/18 12:00 96 11/13/18 12:00 Mechanical Ventilator 11/13/18 12:00 30.0 11/13/18 11:51 97.9 92 18 117/61 (79) 100 11/13/18 11:28 93 21 30 8/26/19 09:15 91 23 30 11/13/18 09:00 Mechanical Ventilator 11/13/18 08:28 97 114/57 11/13/18 08:00 30.0 11/13/18 08:00 96 11/13/18 08:00 97.5 95 26 114/53 (73) 100 11/13/18 07:29 98 21 100 Mechanical Ventilator 30 100 22 11/13/18 06:00 107/57 11/13/18 05:11 86 23 30 11/13/18 05:00 105 141/82 11/13/18 04:05 99.1 11/13/18 04:00 Mechanical Ventilator 11/13/18 04:00 30.0 11/13/18 03:25 100.5 105 26 141/82 (101) 100 11/13/18 03:23 104 11/13/18 02:34 91 29 30 11/13/18 01:15 91 24 100 Mechanical Ventilator 30 94 19 30 11/13/18 00:00 92 11/13/18 00:00 Mechanical Ventilator 11/13/18 00:00 30.0 11/13/18 00:00 99.0 93 24 138/78 (98) 100 11/12/18 23:19 93 26 30 11/12/18 21:59 112/78 11/12/18 21:24 91 24 30 11/12/18 21:12 101 138/72 11/12/18 20:00 101 11/12/18 20:00 Mechanical Ventilator 11/12/18 20:00 100.6 101 16 138/72 (94) 100 11/12/18 20:00 30.0 Intake and Output 11/12/18 11/13/18 19:00 07:00 Intake Total 1765.833 ml 575.0 ml Output Total 600 ml 300 ml Balance 1165.833 ml 275.0 ml Intake Free Water 100 ml 50 ml IV Total 1215.833 ml 225.0 ml Tube Feeding 450 ml 300 ml Output Urine Total 600 ml 300 ml Laboratory Tests 11/13/18 04:00: White Blood Count 16.0#H, Red Blood Count 3.87L, Hemoglobin 9.7L, Hematocrit 30.4L, Mean Corpuscular Volume 79L, Mean Corpuscular Hemoglobin 25.0L, Mean Corpuscular Hemoglobin Concent 31.9L, Red Cell Distribution Width 23.6H, Platelet Count 468H, Mean Platelet Volume 5.7L, Neutrophils (%) (Auto) 82.3H, Lymphocytes (%) (Auto) 9.5L, Monocytes (%) (Auto) 5.6, Eosinophils (%) (Auto) 2.2, Basophils (%) (Auto) 0.4, Sodium Level 137, Potassium Level 4.2, Chloride Level 102, Carbon Dioxide Level 30, Anion Gap 5, Blood Urea Nitrogen 15, Creatinine 0.5L, Estimat Glomerular Filtration Rate , Glucose Level 122H, Calcium Level 8.5, Total Bilirubin 0.2, Aspartate Amino Transf (AST/SGOT) 108H, Alanine Aminotransferase (ALT/SGPT) 108H, Alkaline Phosphatase 219H, Total Protein 6.3L, Albumin 1.4L, Globulin 4.9, Albumin/Globulin Ratio 0.3L 11/13/18 07:30: White Blood Count 15.6H, Red Blood Count 3.67L, Hemoglobin 9.2L, Hematocrit 28.8L, Mean Corpuscular Volume 79L, Mean Corpuscular Hemoglobin 25.1L, Mean Corpuscular Hemoglobin Concent 31.9L, Red Cell Distribution Width 23.7H, Platelet Count 451H, Mean Platelet Volume 5.5L, Neutrophils (%) (Auto) 80.0H, Lymphocytes (%) (Auto) 11.8L, Monocytes (%) (Auto) 5.0, Eosinophils (%) (Auto) 2.4, Basophils (%) (Auto) 0.8 11/13/18 17:00: Vancomycin Level Trough 9.0 Height (Feet): 5 Height (Inches): 8.00 Weight (Pounds): 174 General Appearance: lethargic EENT: PERRL/EOMI Cardiovascular: normal rate Respiratory/Chest: lungs clear Abdomen: soft, hypoactive bowel sounds Neurologic: aphasia Florinda Treviño MD Nov 13, 2018 19:49
[2018-11-13 20:00] VITALS: BP 143/76
[2018-11-13] MEDS: Iron Sucrose 100 MG in NS 55 ML IVPB SCH (20:43)
[2018-11-13] MEDS: Dyna-Hex 2% Top Sol 2oz TOPIC SCH (20:43)
[2018-11-13] MEDS: Vancomycin 750mg/NS 275ml IVPB SCH ×2 (21:05)
[2018-11-14] VITALS: BP 130/66
[2018-11-14] MEDS: Albuterol/Ipratropium 3ml neb HHN SCH ×3 (01:02→12:42)
[2018-11-14 04:00] VITALS: BP 138/79
[2018-11-14 04:56] LABS: BASOPHILS % (AUTO) 0.3 % (0.0-2.0); EOSINOPHILS % (AUTO) 2.7 % (0.0-3.0); HEMATOCRIT 27.3 % (37.0-47.0); HEMOGLOBIN 8.9 G/DL (12.0-16.0); LYMPHOCYTES % (AUTO) 9.1 % (20.0-45.0); MEAN CORPUSCULAR VOLUME 78 FL (80-99); MONOCYTES % (AUTO) 5.4 % (1.0-10.0); NEUTROPHILS % (AUTO) 82.5 % (45.0-75.0); PLATELET COUNT 483 K/UL (150-450); RED BLOOD COUNT 3.52 M/UL (4.20-5.40); RED CELL DISTRIBUTION WIDTH 23.6 % (11.6-14.8); WHITE BLOOD COUNT 14.6 K/UL (4.8-10.8)
[2018-11-14] MEDS: NovoLOG Insulin Flexpen SUBQ SCH ×3 (05:00→17:51)
[2018-11-14] MEDS: Valproic Acid 250mg/5ml Liquid GT SCH ×3 (05:01→22:18)
[2018-11-14] MEDS: Tums 500mg GT SCH ×3 (05:01→22:18)
[2018-11-14] MEDS: Magnesium Oxide 400mg tab GT SCH ×3 (05:01→22:18)
[2018-11-14] MEDS: Piperacillin/Tazobactam 3.375 GM in NS 110 ML IVPB SCH ×3 (05:02→22:24)
[2018-11-14] MEDS: Labetalol 200mg tab GT SCH ×3 (05:03→22:20)
[2018-11-14 05:16] LABS: ALANINE AMINOTRANSFERASE 87 U/L (12-78); ALBUMIN 1.2 G/DL (3.4-5.0); ALBUMIN/GLOBULIN RATIO 0.2 (1.0-2.7); ALKALINE PHOSPHATASE 191 U/L (46-116); ANION GAP 8 mmol/L (5-15); ASPARTATE AMINO TRANSFERASE 87 U/L (15-37); BILIRUBIN,TOTAL 0.2 MG/DL (0.2-1.0); BLOOD UREA NITROGEN 15 mg/dL (7-18); CALCIUM 8.2 MG/DL (8.5-10.1); CARBON DIOXIDE 30 MMOL/L (21-32); CHLORIDE 102 MMOL/L (98-107); CREATININE 0.4 MG/DL (0.55-1.30); SODIUM 140 MMOL/L (136-145)
[2018-11-14] MEDS: HydrALAZINE 10mg Tab GT SCH ×3 (05:51→22:19)
[2018-11-14] MEDS: Phenytoin Susp 100mg/4ml GT SCH ×3 (06:00→22:19)
--- NOTE | 2018-11-14 07:03 | NUR ---
HAND-OFF: Report given to Carmita RN, pt. remains stable and no signs of distress noted- aware to f/u on abnormal labs.
--- NOTE | 2018-11-14 07:04 | NUR ---
NURSE NOTES: Received patient in bed. Vent dependent. GT inplace. With right upper arm PICC line. Ospina cath inplace. Contact isolation observed. Will continue plan of care.
--- NOTE | 2018-11-14 07:11 | NUR ---
RESPIRATORY NOTE: received pt on current vent orders. trach size [id number], midline and patent. no resp distress noted at this time. vent alarms are on and audible. backup trach and ambu bag at bedside. will cont to monitor.
[2018-11-14 08:00] VITALS: BP 146/74
--- NOTE | 2018-11-14 08:25 | Pulmonology Progress Note ---
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 TONI F/U cards recs Monitor volumes and renal function DVT Px: LMWH FC, continue to discuss GOC Wound care Subjective Allergies: Coded Allergies: Crayfish (Unverified Allergy, Unknown, 11/11/18) Uncoded Allergies: Crawfish (Allergy, Unknown, 11/09/18) Subjective AFVSS stable on vent no sig secretions no distress Repeat BCx + Objective Last 24 Hour Vital Signs Date Time Temp Pulse Resp B/P (MAP) Pulse Ox O2 Delivery O2 Flow Rate FiO2 11/14/18 08:00 Mechanical Ventilator 11/14/18 08:00 30 11/14/18 07:05 86 22 100 Mechanical Ventilator 30 86 14 30 11/14/18 05:51 115/62 11/14/18 05:03 88 139/72 11/14/18 04:47 87 23 30 11/14/18 04:47 91 22 30 11/14/18 04:00 Mechanical Ventilator 11/14/18 04:00 30.0 11/14/18 04:00 98.2 88 20 138/79 (98) 100 11/14/18 04:00 90 11/14/18 02:42 87 23 30 11/14/18 00:58 87 22 98 Mechanical Ventilator 30 87 22 11/14/18 00:30 99.0 11/14/18 00:30 99.0 11/14/18 00:00 100.6 93 23 130/66 (87) 100 11/14/18 00:00 30.0 11/14/18 00:00 Mechanical Ventilator 11/13/18 23:27 89 11/13/18 22:46 92 25 30 11/13/18 22:00 109/60 11/13/18 21:03 96 145/76 11/13/18 20:50 99 22 30 11/13/18 20:00 97 11/13/18 20:00 30.0 11/13/18 20:00 98.4 96 22 143/76 (98) 100 11/13/18 20:00 Mechanical Ventilator 11/13/18 18:57 98 26 100 Mechanical Ventilator 30 98 26 11/13/18 17:20 93 21 30 11/13/18 16:00 Mechanical Ventilator 11/13/18 16:00 30.0 11/13/18 16:00 98.4 95 18 136/69 (91) 100 11/13/18 16:00 96 11/13/18 15:27 94 21 30 11/13/18 13:50 94 108/74 11/13/18 13:50 108/74 11/13/18 13:12 93 18 30 11/13/18 12:00 96 11/13/18 12:00 Mechanical Ventilator 11/13/18 12:00 30.0 11/13/18 11:51 97.9 92 18 117/61 (79) 100 11/13/18 11:28 93 21 30 11/13/18 09:15 91 23 30 11/13/18 09:00 Mechanical Ventilator 11/13/18 08:28 97 114/57 Intake and Output 11/13/18 11/14/18 19:00 07:00 Intake Total 400 ml 864.1 ml Output Total 500 ml 450 ml Balance -100 ml 414.1 ml Intake Free Water 50 ml IV Total 564.1 ml Tube Feeding 400 ml 250 ml Output Urine Total 500 ml 450 ml # Bowel Movements 1 General Appearance: no acute distress, cachetic, other - non verbal HEENT: normocephalic, atraumatic, anicteric, mucous membranes moist, status post trach, other - enlarged tongue and lips Respiratory/Chest: chest wall non-tender, lungs clear, normal breath sounds, no respiratory distress, no accessory muscle use Cardiovascular: normal peripheral pulses, normal rate, regular rhythm Abdomen: normal bowel sounds, soft, non tender, no organomegaly, non distended , no mass, other - GT Extremities: no cyanosis, no clubbing, no edema Microbiology Date/Time Source Procedure Growth Status 11/12/18 17:45 Blood Blood Culture - Preliminary Gram Positive Cocci Resulted 11/12/18 15:30 Blood Blood Culture - Preliminary NO GROWTH AFTER 24 HOURS Resulted Laboratory Tests 11/13/18 17:00: Vancomycin Level Trough 9.0 11/14/18 03:45: White Blood Count 14.6H, Red Blood Count 3.52L, Hemoglobin 8.9L, Hematocrit 27.3L, Mean Corpuscular Volume 78L, Mean Corpuscular Hemoglobin 25.3L, Mean Corpuscular Hemoglobin Concent 32.5, Red Cell Distribution Width 23.6H, Platelet Count 483H, Mean Platelet Volume 5.7L, Neutrophils (%) (Auto) 82.5H, Lymphocytes (%) (Auto) 9.1L, Monocytes (%) (Auto) 5.4, Eosinophils (%) (Auto) 2.7, Basophils (%) (Auto) 0.3, Sodium Level 140, Potassium Level 3.0L, Chloride Level 102, Carbon Dioxide Level 30, Anion Gap 8, Blood Urea Nitrogen 15, Creatinine 0.4L, Estimat Glomerular Filtration Rate , Glucose Level 117H, Calcium Level 8.2L, Phosphorus Level 3.0, Magnesium Level 2.0, Total Bilirubin 0.2, Aspartate Amino Transf (AST/SGOT) 87H, Alanine Aminotransferase (ALT/SGPT) 87H, Alkaline Phosphatase 191H, Total Protein 6.0L, Albumin 1.2L, Globulin 4.8, Albumin/Globulin Ratio 0.2L Current Medications Medications (Trade) Dose Ordered Sig/Lupe Route PRN Reason Start Time Stop Time Status Last Admin Dose Admin Acetaminophen (Tylenol) 650 mg Q4H PRN GT Mild Pain/Temp > 100.5 11/09/18 05:00 12/09/18 04:59 11/14/18 00:00 Albuterol/ Ipratropium (Albuterol/ Ipratropium) 3 ml Q4H PRN HHN Shortness of Breath 11/09/18 16:15 11/14/18 16:14 Albuterol/ Ipratropium (Albuterol/ Ipratropium) 3 ml Q6HRT HHN 11/09/18 19:00 11/14/18 18:59 11/14/18 07:05 Amlodipine Besylate (Norvasc) 10 mg DAILY GT 11/09/18 09:00 12/09/18 08:59 11/13/18 08:28 Bisacodyl (Dulcolax) 10 mg DAILY PRN RECTAL Constipation 11/09/18 05:00 12/09/18 04:59 Calcium Carbonate (Tums) 500 mg EVERY 8 HOURS GT 11/09/18 14:00 12/09/18 08:59 11/14/18 05:01 Chlorhexidine Gluconate (Corazon-Hex 2%) 1 applic DAILY@2000 TOPIC 11/12/18 20:00 12/12/18 19:59 11/13/18 20:43 Dextrose (Dextrose 50%) 25 ml Q30M PRN IV Hypoglycemia 11/09/18 04:45 12/09/18 04:44 Dextrose (Dextrose 50%) 50 ml Q30M PRN IV Hypoglycemia 11/09/18 04:45 12/09/18 04:44 11/09/18 09:09 Docusate Sodium (Colace) 200 mg BID GT 11/12/18 18:00 12/12/18 17:59 11/13/18 17:10 Enoxaparin Sodium (Lovenox) 40 mg DAILY SUBQ 11/09/18 09:00 12/09/18 08:59 11/12/18 08:52 Famotidine (Pepcid) 20 mg EVERY 12 HOURS GT 11/09/18 21:00 12/09/18 08:59 11/13/18 20:44 Fluconazole/ Sodium Chloride 100 ml @ 100 mls/hr Q24H IV 11/13/18 13:00 11/20/18 12:59 11/13/18 13:50 Furosemide (Lasix) 40 mg EVERY 12 HOURS GT 11/09/18 09:00 12/09/18 08:59 11/13/18 20:44 Heparin Sodium/ Sodium Chloride (Heparin 1000 units/500ml Premix) 1,000 unit ONCE PRN IV PICC LINE 11/13/18 09:00 11/14/18 23:59 Hydralazine HCl (Apresoline) 5 mg EVERY 8 HOURS GT 11/09/18 06:00 12/09/18 05:59 11/12/18 13:48 Insulin Aspart (NovoLOG) Q6HR SUBQ 11/09/18 06:00 12/09/18 05:59 11/12/18 17:36 Insulin Detemir (Levemir) 6 units BID SUBQ 11/09/18 09:00 12/09/18 08:59 11/13/18 17:12 Iron Sucrose 100 mg/Sodium Chloride 60 ml @ 240 mls/hr BEDTIME IVPB 11/11/18 21:00 11/15/18 21:14 11/13/18 20:43 Labetalol HCl (Normodyne) 200 mg Q8HR GT 11/09/18 06:00 12/09/18 05:59 11/14/18 05:03 Levetiracetam (Keppra) 1,500 mg Q12HR GT 11/09/18 09:00 12/09/18 08:59 11/13/18 20:44 Lidocaine HCl (Xylocaine 1% 30ml) 30 ml ONCE PRN INJ PICC LINE 11/13/18 09:00 11/14/18 23:59 Lorazepam (Ativan 2mg/ml 1ml) 2 mg DAILY PRN IVP For Seizures 11/09/18 05:00 11/16/18 04:59 Magnesium Hydroxide (Mom) 30 ml DAILY PRN GT Constipation 11/09/18 05:00 12/09/18 04:59 Magnesium Oxide (Mag-Ox 400mg) 400 mg EVERY 8 HOURS GT 11/09/18 14:00 12/09/18 08:59 11/14/18 05:01 Ondansetron HCl (Zofran) 4 mg Q6H PRN GT Nausea & Vomiting 11/09/18 05:00 12/09/18 04:59 Phenobarbital (PHENobarbital) 60 mg BID GT 11/09/18 09:00 12/09/18 08:59 11/13/18 17:10 Phenytoin (Dilantin) 100 mg Q8HR GT 11/09/18 06:00 12/09/18 05:59 11/14/18 06:00 Piperacillin Sod/ Tazobactam Sod 3.375 gm/Sodium Chloride 110 ml @ 27.5 mls/hr Q8H IVPB 11/09/18 06:00 11/16/18 05:59 11/14/18 05:02 Polyethylene Glycol (Miralax) 17 gm DAILYPRN PRN ORAL Constipation 11/12/18 10:30 12/12/18 10:29 Sennosides (Senokot) 8.6 mg EVERY 12 HOURS GT 11/09/18 21:00 12/09/18 08:59 11/13/18 20:43 Valproic Acid (Depakene) 500 mg EVERY 8 HOURS GT 11/09/18 06:00 12/09/18 05:59 11/14/18 05:01 Vancomycin HCl (Vanco rx to dose) 1 ea DAILY PRN MISC Per rx protocol 11/10/18 16:45 12/10/18 16:44 Vancomycin HCl 750 mg/Sodium Chloride 275 ml @ 183.333 mls/hr Q12HR@0800,2000 IVPB 11/13/18 20:00 11/18/18 19:59 11/13/18 21:05 Balbir Dejesus MD Nov 14, 2018 08:25
[2018-11-14] MEDS: PHENobarbital Elixir 30mg/7.5ml GT SCH ×2 (08:55→17:50)
[2018-11-14] MEDS: levETIRAcetam 500mg/5ml Liquid GT SCH ×2 (08:55→20:57)
[2018-11-14] MEDS: Furosemide 40mg tab GT SCH ×2 (08:56→20:58)
[2018-11-14] MEDS: Docusate 100mg tablet GT SCH (08:56)
[2018-11-14] MEDS: Sennosides 8.6mg tab GT SCH ×2 (08:56→20:58)
[2018-11-14] MEDS: Enoxaparin 40mg Inj SUBQ SCH (08:58)
[2018-11-14] MEDS: Levemir Flexpen SUBQ SCH ×2 (09:00→21:00)
[2018-11-14] MEDS: Vancomycin 750mg/NS 275ml IVPB SCH ×4 (09:00→20:19)
--- NOTE | 2018-11-14 09:22 | NUR ---
RADIOLOGY DEPT., CHEST X-RAY DONE-P.DYE
[2018-11-14] MEDS ORDERED: Miralax 17gm pkt GT PRN (10:30)
--- NOTE | 2018-11-14 10:33 | GI Progress Note ---
Assessment/Plan Problems: (1) Abnormal LFTs ICD Codes: R94.5 - Abnormal results of liver function studies SNOMED: 904878258 (2) Decubitus skin ulcer ICD Codes: L89.90 - Pressure ulcer of unspecified site, unspecified stage SNOMED: 137860603 (3) Protein calorie malnutrition ICD Codes: E46 - Unspecified protein-calorie malnutrition SNOMED: 507654108 (4) Colon adenocarcinoma ICD Codes: C18.9 - Malignant neoplasm of colon, unspecified SNOMED: 329543799 (5) Sepsis ICD Codes: A41.9 - Sepsis, unspecified organism SNOMED: 50688934 (6) Tracheostomy dependence ICD Codes: Z93.0 - Tracheostomy status SNOMED: 666756088 (7) Gastrostomy in place ICD Codes: Z93.1 - Gastrostomy status SNOMED: 27586936, 63468957, 467095813 Status: unchanged Status Narrative Discussed with Dr. Humphries. Assessment/Plan Assessment - Iron deficiency anemia - abnormal LFT - ? meds, passive congestion - dysphagia, s/p GT - Resp, failure, s/p Trach - hepatitis panel negative Recommendations - Continue TF - Monitor LFT - declining - IV Iron - follow CBC - Conservative approach given poor health The patient was seen and examined at bedside and all new and available data was reviewed in the patients chart. I agree with the above findings, impression and plan. (Patient seen earlier today. Signature stamp does not reflect patient encounter time.). - Casper Humphries MD Subjective Subjective limited Objective Last 24 Hour Vital Signs Date Time Temp Pulse Resp B/P (MAP) Pulse Ox O2 Delivery O2 Flow Rate FiO2 11/14/18 08:56 92 146/74 11/14/18 08:44 92 19 30 11/14/18 08:00 Mechanical Ventilator 11/14/18 08:00 30 11/14/18 08:00 99.6 86 20 146/74 (98) 100 11/14/18 07:45 84 11/14/18 07:05 86 22 100 Mechanical Ventilator 30 86 14 30 11/14/18 05:51 115/62 11/14/18 05:03 88 139/72 11/14/18 04:47 87 23 30 11/14/18 04:47 91 22 30 11/14/18 04:00 Mechanical Ventilator 11/14/18 04:00 30.0 11/14/18 04:00 98.2 88 20 138/79 (98) 100 11/14/18 04:00 90 11/14/18 02:42 87 23 30 11/14/18 00:58 87 22 98 Mechanical Ventilator 30 87 22 11/14/18 00:30 99.0 11/14/18 00:30 99.0 11/14/18 00:00 100.6 93 23 130/66 (87) 100 11/14/18 00:00 30.0 11/14/18 00:00 Mechanical Ventilator 11/13/18 23:27 89 11/13/18 22:46 92 25 30 11/13/18 22:00 109/60 11/13/18 21:03 96 145/76 11/13/18 20:50 99 22 30 11/13/18 20:00 97 11/13/18 20:00 30.0 11/13/18 20:00 98.4 96 22 143/76 (98) 100 11/13/18 20:00 Mechanical Ventilator 11/13/18 18:57 98 26 100 Mechanical Ventilator 30 98 26 11/13/18 17:20 93 21 30 11/13/18 16:00 Mechanical Ventilator 11/13/18 16:00 30.0 11/13/18 16:00 98.4 95 18 136/69 (91) 100 11/13/18 16:00 96 11/13/18 15:27 94 21 30 11/13/18 13:50 94 108/74 11/13/18 13:50 108/74 11/13/18 13:12 93 18 30 11/13/18 12:00 96 11/13/18 12:00 Mechanical Ventilator 11/13/18 12:00 30.0 11/13/18 11:51 97.9 92 18 117/61 (79) 100 11/13/18 11:28 93 21 30 Intake and Output 11/13/18 11/14/18 19:00 07:00 Intake Total 400 ml 864.1 ml Output Total 500 ml 450 ml Balance -100 ml 414.1 ml Intake Free Water 50 ml IV Total 564.1 ml Tube Feeding 400 ml 250 ml Output Urine Total 500 ml 450 ml # Bowel Movements 1 Laboratory Tests Test 11/13/18 17:00 11/14/18 03:45 Vancomycin Level Trough 9.0 ug/mL (5.0-12.0) White Blood Count 14.6 K/UL (4.8-10.8) H Red Blood Count 3.52 M/UL (4.20-5.40) L Hemoglobin 8.9 G/DL (12.0-16.0) L Hematocrit 27.3 % (37.0-47.0) L Mean Corpuscular Volume 78 FL (80-99) L Mean Corpuscular Hemoglobin 25.3 PG (27.0-31.0) L Mean Corpuscular Hemoglobin Concent 32.5 G/DL (32.0-36.0) Red Cell Distribution Width 23.6 % (11.6-14.8) H Platelet Count 483 K/UL (150-450) H Mean Platelet Volume 5.7 FL (6.5-10.1) L Neutrophils (%) (Auto) 82.5 % (45.0-75.0) H Lymphocytes (%) (Auto) 9.1 % (20.0-45.0) L Monocytes (%) (Auto) 5.4 % (1.0-10.0) Eosinophils (%) (Auto) 2.7 % (0.0-3.0) Basophils (%) (Auto) 0.3 % (0.0-2.0) Sodium Level 140 MMOL/L (136-145) Potassium Level 3.0 MMOL/L (3.5-5.1) L Chloride Level 102 MMOL/L (98-107) Carbon Dioxide Level 30 MMOL/L (21-32) Anion Gap 8 mmol/L (5-15) Blood Urea Nitrogen 15 mg/dL (7-18) Creatinine 0.4 MG/DL (0.55-1.30) L Estimat Glomerular Filtration Rate mL/min (>60) Glucose Level 117 MG/DL (74-106) H Calcium Level 8.2 MG/DL (8.5-10.1) L Phosphorus Level 3.0 MG/DL (2.5-4.9) Magnesium Level 2.0 MG/DL (1.8-2.4) Total Bilirubin 0.2 MG/DL (0.2-1.0) Aspartate Amino Transf (AST/SGOT) 87 U/L (15-37) H Alanine Aminotransferase (ALT/SGPT) 87 U/L (12-78) H Alkaline Phosphatase 191 U/L (46-116) H Total Protein 6.0 G/DL (6.4-8.2) L Albumin 1.2 G/DL (3.4-5.0) L Globulin 4.8 g/dL Albumin/Globulin Ratio 0.2 (1.0-2.7) L Height (Feet): 5 Height (Inches): 8.00 Weight (Pounds): 174 General Appearance: lethargic Cardiovascular: normal rate Respiratory/Chest: other - mech vent Abdominal Exam: GT site Aysha Sykes NP Nov 14, 2018 10:33
--- NOTE | 2018-11-14 10:44 | NUR ---
DISCHARGE PLANNING: NOTE CRISS SPOKE TO ALLISON [phone] REGARDING DC PLANNING. SHE IS AGREEING TO HAVE HER MOTHER RETURN TO [facility]. DR DANIELS AND JAEN WERE MADE AWARE
--- NOTE | 2018-11-14 10:44 | Diagnostic Imaging Report ---
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 The right upper extremity was prepped with alcohol. All elements of maximal sterile barrier technique were followed including usage of a cap, mask, sterile gown, sterile gloves, hand hygiene and a large sterile sheet. Sonographic evaluation of the upper extremity was performed demonstrating a patent and compressible basilic vein. Access was obtained under real-time ultrasound guidance (with utilization of sterile gel and sterile probe cover) and digital image was saved and archived. An .018 wire was introduced. Needle exchanged for a 5 Canadian peel-away sheath. Measurements were obtained. A 5 [place] dual-lumen Power PICC line catheter was cut to 40 cm and introduced over the wire. Peel-away sheath and wire were removed.Catheter was secured to the skin using 2-0 Prolene suture. Both ports aspirate and flush easily. Post procedure chest x-ray demonstrates good position of the PICC line catheter within the SVC. Impression: Successful placement of an upper extremity PICC line catheter
--- NOTE | 2018-11-14 10:45 | Diagnostic Imaging Report ---
Indication: Dyspnea Technique: One view of the chest Comparison: November 13, 2018 post PICC radiograph Findings: Bilateral interstitial and alveolar edema versus infiltrates appear slightly worse. There is increasing obscuration of left hemidiaphragm, may reflect increasing pleural fluid as well. The heart remains enlarged. Previously demonstrated left arm PICC has been removed. Stable right arm PICC. Impression: Slightly worsening bilateral interstitial and airspace infiltrates versus edema, over one day
--- NOTE | 2018-11-14 11:27 | Infectious Diseases Prog Note ---
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 Treviño 2. Trach-vent respiratory failure. 3. Dysphagia, G-tube. 4. Anemia. 5. Diabetes. 6. Hypertension. 7. Large tongue. 8. Anoxic brain injury. 9. Weakness. 10. Poorly responsive. 11. History of seizures. 12. History of colon adenocarcinoma. 13. Skin care protocol. 14. Allergy to crawfish. 15. Social history negative. 16. Family history noncontributory. 17. MAR was noted. 18. Case was discussed with RN. 19. Continue treatment per primary consultants. 20. Orders were ordered, entered, and noted. 21. Continue wound care protocol. 22. Continue blood sugar and blood pressure treatment per primary consultants for diabetes and hypertension. 23. vre colonization and isolation Subjective Constitutional: Reports: fever, other - + trach and vent HEENT: Reports: congestion Respiratory: Reports: shortness of breath Cardiovascular: Reports: other - no pressors Gastrointestinal/Abdominal: Denies: nausea, vomiting, diarrhea Genitourinary: Reports: other - + nava Neurologic: Reports: weakness, other - weak and poorly responsive Psychiatric: Reports: other - NA Skin: Denies: rash Hematologic: Denies: bleeding Musculoskeletal: Reports: other - NA Allergies: Coded Allergies: Crayfish (Unverified Allergy, Unknown, 11/11/18) Uncoded Allergies: Crawfish (Allergy, Unknown, 11/09/18) Objective Vital Signs Last 24 Hour Vital Signs Date Time Temp Pulse Resp B/P (MAP) Pulse Ox O2 Delivery O2 Flow Rate FiO2 11/14/18 10:34 89 19 30 11/14/18 08:56 92 146/74 11/14/18 08:44 92 19 30 11/14/18 08:00 Mechanical Ventilator 11/14/18 08:00 30 11/14/18 08:00 99.6 86 20 146/74 (98) 100 11/14/18 07:45 84 11/14/18 07:05 86 22 100 Mechanical Ventilator 30 86 14 30 11/14/18 05:51 115/62 11/14/18 05:03 88 139/72 11/14/18 04:47 87 23 30 11/14/18 04:47 91 22 30 11/14/18 04:00 Mechanical Ventilator 11/14/18 04:00 30.0 11/14/18 04:00 98.2 88 20 138/79 (98) 100 11/14/18 04:00 90 11/14/18 02:42 87 23 30 11/14/18 00:58 87 22 98 Mechanical Ventilator 30 87 22 11/14/18 00:30 99.0 11/14/18 00:30 99.0 11/14/18 00:00 100.6 93 23 130/66 (87) 100 11/14/18 00:00 30.0 11/14/18 00:00 Mechanical Ventilator 11/13/18 23:27 89 11/13/18 22:46 92 25 30 11/13/18 22:00 109/60 11/13/18 21:03 96 145/76 11/13/18 20:50 99 22 30 11/13/18 20:00 97 11/13/18 20:00 30.0 11/13/18 20:00 98.4 96 22 143/76 (98) 100 11/13/18 20:00 Mechanical Ventilator 11/13/18 18:57 98 26 100 Mechanical Ventilator 30 98 26 11/13/18 17:20 93 21 30 11/13/18 16:00 Mechanical Ventilator 11/13/18 16:00 30.0 11/13/18 16:00 98.4 95 18 136/69 (91) 100 11/13/18 16:00 96 11/13/18 15:27 94 21 30 11/13/18 13:50 94 108/74 11/13/18 13:50 108/74 11/13/18 13:12 93 18 30 11/13/18 12:00 96 11/13/18 12:00 Mechanical Ventilator 11/13/18 12:00 30.0 11/13/18 11:51 97.9 92 18 117/61 (79) 100 11/13/18 11:28 93 21 30 Height (Feet): 5 Height (Inches): 8.00 Weight (Pounds): 174 General Appearance: other - + trach and vent HEENT: normocephalic, atraumatic, anicteric, no JVD, status post trach Respiratory/Chest: crackles/rales, rhonchi - bilaterally Cardiovascular: normal rate, regular rhythm, no gallop/murmur, no JVD Abdomen: normal bowel sounds, soft, non tender, no organomegaly, non distended Genitourinary: other - + nava - urine cloudy Extremities: no cyanosis Skin: no rash, other - wounds covered Neurologic/Psychiatric: motor weakness, other - weak, poorly responsive Lymphatic: no neck adenopathy Musculoskeletal: no effusion Objective 11/11/18 - chest x-ray - IMPRESSION: 1. Hypoventilatory lungs. Elevated right hemidiaphragm. Slightly improved vascular congestion. Similar bibasilar lung atelectasis and airspace disease. 2. Query right pleural effusion. 2-D echo - no vegetations mentioned, report noted sacral x-ray - no osteo mentioned, report noted 11/14/18 - Technique: One view of the chest Comparison: November 13, 2018 post PICC radiograph Findings: Bilateral interstitial and alveolar edema versus infiltrates appear slightly worse. There is increasing obscuration of left hemidiaphragm, may reflect increasing pleural fluid as well. The heart remains enlarged. Previously demonstrated left arm PICC has been removed. Stable right arm PICC. Impression: Slightly worsening bilateral interstitial and airspace infiltrates versus edema, over one day Microbiology Date/Time Source Procedure Growth Status 11/12/18 17:45 Blood Blood Culture - Preliminary Gram Positive Cocci Resulted 11/09/18 05:38 Sputum Induced Gram Stain - Final Complete 11/09/18 05:38 Sputum Culture - Final Pseudomonas Aeruginosa Usual Respiratory Carmita Complete 11/09/18 02:05 Urine,Clean Catch Urine Culture - Final Enterococcus Faecalis Complete 11/08/18 23:10 Rectum - Final NO CARBAPENEM-RESISTANT ENTEROBACTERI... Complete Microbiology Date/Time Source Procedure Growth Status 11/12/18 17:45 Blood Blood Culture - Preliminary Gram Positive Cocci Resulted 11/12/18 15:30 Blood Blood Culture - Preliminary NO GROWTH AFTER 24 HOURS Resulted Laboratory Tests Test 11/13/18 17:00 11/14/18 03:45 Vancomycin Level Trough 9.0 ug/mL (5.0-12.0) White Blood Count 14.6 K/UL (4.8-10.8) H Red Blood Count 3.52 M/UL (4.20-5.40) L Hemoglobin 8.9 G/DL (12.0-16.0) L Hematocrit 27.3 % (37.0-47.0) L Mean Corpuscular Volume 78 FL (80-99) L Mean Corpuscular Hemoglobin 25.3 PG (27.0-31.0) L Mean Corpuscular Hemoglobin Concent 32.5 G/DL (32.0-36.0) Red Cell Distribution Width 23.6 % (11.6-14.8) H Platelet Count 483 K/UL (150-450) H Mean Platelet Volume 5.7 FL (6.5-10.1) L Neutrophils (%) (Auto) 82.5 % (45.0-75.0) H Lymphocytes (%) (Auto) 9.1 % (20.0-45.0) L Monocytes (%) (Auto) 5.4 % (1.0-10.0) Eosinophils (%) (Auto) 2.7 % (0.0-3.0) Basophils (%) (Auto) 0.3 % (0.0-2.0) Sodium Level 140 MMOL/L (136-145) Potassium Level 3.0 MMOL/L (3.5-5.1) L Chloride Level 102 MMOL/L (98-107) Carbon Dioxide Level 30 MMOL/L (21-32) Anion Gap 8 mmol/L (5-15) Blood Urea Nitrogen 15 mg/dL (7-18) Creatinine 0.4 MG/DL (0.55-1.30) L Estimat Glomerular Filtration Rate mL/min (>60) Glucose Level 117 MG/DL (74-106) H Calcium Level 8.2 MG/DL (8.5-10.1) L Phosphorus Level 3.0 MG/DL (2.5-4.9) Magnesium Level 2.0 MG/DL (1.8-2.4) Total Bilirubin 0.2 MG/DL (0.2-1.0) Aspartate Amino Transf (AST/SGOT) 87 U/L (15-37) H Alanine Aminotransferase (ALT/SGPT) 87 U/L (12-78) H Alkaline Phosphatase 191 U/L (46-116) H Total Protein 6.0 G/DL (6.4-8.2) L Albumin 1.2 G/DL (3.4-5.0) L Globulin 4.8 g/dL Albumin/Globulin Ratio 0.2 (1.0-2.7) L Current Medications Medications (Trade) Dose Ordered Sig/Lupe Route PRN Reason Start Time Stop Time Status Last Admin Dose Admin Acetaminophen (Tylenol) 650 mg Q4H PRN GT Mild Pain/Temp > 100.5 11/09/18 05:00 12/09/18 04:59 11/14/18 00:00 Albuterol/ Ipratropium (Albuterol/ Ipratropium) 3 ml Q4H PRN HHN Shortness of Breath 11/09/18 16:15 11/14/18 16:14 Albuterol/ Ipratropium (Albuterol/ Ipratropium) 3 ml Q6HRT HHN 11/09/18 19:00 11/14/18 18:59 11/14/18 07:05 Amlodipine Besylate (Norvasc) 10 mg DAILY GT 11/09/18 09:00 12/09/18 08:59 11/14/18 08:56 Bisacodyl (Dulcolax) 10 mg DAILY PRN RECTAL Constipation 11/09/18 05:00 12/09/18 04:59 Calcium Carbonate (Tums) 500 mg EVERY 8 HOURS GT 11/09/18 14:00 12/09/18 08:59 11/14/18 05:01 Chlorhexidine Gluconate (Corazon-Hex 2%) 1 applic DAILY@2000 TOPIC 11/12/18 20:00 12/12/18 19:59 11/13/18 20:43 Dextrose (Dextrose 50%) 25 ml Q30M PRN IV Hypoglycemia 11/09/18 04:45 12/09/18 04:44 Dextrose (Dextrose 50%) 50 ml Q30M PRN IV Hypoglycemia 11/09/18 04:45 12/09/18 04:44 11/09/18 09:09 Enoxaparin Sodium (Lovenox) 40 mg DAILY SUBQ 11/09/18 09:00 12/09/18 08:59 11/14/18 08:58 Famotidine (Pepcid) 20 mg EVERY 12 HOURS GT 11/09/18 21:00 12/09/18 08:59 11/14/18 08:55 Fluconazole/ Sodium Chloride 100 ml @ 100 mls/hr Q24H IV 11/13/18 13:00 11/20/18 12:59 11/13/18 13:50 Furosemide (Lasix) 40 mg EVERY 12 HOURS GT 11/09/18 09:00 12/09/18 08:59 11/14/18 08:56 Heparin Sodium/ Sodium Chloride (Heparin 1000 units/500ml Premix) 1,000 unit ONCE PRN IV PICC LINE 11/13/18 09:00 11/14/18 23:59 Hydralazine HCl (Apresoline) 5 mg EVERY 8 HOURS GT 11/09/18 06:00 12/09/18 05:59 11/12/18 13:48 Insulin Aspart (NovoLOG) Q6HR SUBQ 11/09/18 06:00 12/09/18 05:59 11/12/18 17:36 Insulin Detemir (Levemir) 6 units BID SUBQ 11/09/18 09:00 12/09/18 08:59 11/14/18 09:00 Iron Sucrose 100 mg/Sodium Chloride 60 ml @ 240 mls/hr BEDTIME IVPB 11/11/18 21:00 11/15/18 21:14 11/13/18 20:43 Labetalol HCl (Normodyne) 200 mg Q8HR GT 11/09/18 06:00 12/09/18 05:59 11/14/18 05:03 Levetiracetam (Keppra) 1,500 mg Q12HR GT 11/09/18 09:00 12/09/18 08:59 11/14/18 08:55 Lidocaine HCl (Xylocaine 1% 30ml) 30 ml ONCE PRN INJ PICC LINE 11/13/18 09:00 11/14/18 23:59 Lorazepam (Ativan 2mg/ml 1ml) 2 mg DAILY PRN IVP For Seizures 11/09/18 05:00 11/16/18 04:59 Magnesium Hydroxide (Mom) 30 ml DAILY PRN GT Constipation 11/09/18 05:00 12/09/18 04:59 Magnesium Oxide (Mag-Ox 400mg) 400 mg EVERY 8 HOURS GT 11/09/18 14:00 12/09/18 08:59 11/14/18 05:01 Ondansetron HCl (Zofran) 4 mg Q6H PRN GT Nausea & Vomiting 11/09/18 05:00 12/09/18 04:59 Phenobarbital (PHENobarbital) 60 mg BID GT 11/09/18 09:00 12/09/18 08:59 11/14/18 08:55 Phenytoin (Dilantin) 100 mg Q8HR GT 11/09/18 06:00 12/09/18 05:59 11/14/18 06:00 Piperacillin Sod/ Tazobactam Sod 3.375 gm/Sodium Chloride 110 ml @ 27.5 mls/hr Q8H IVPB 11/09/18 06:00 11/16/18 05:59 11/14/18 05:02 Polyethylene Glycol (Miralax) 17 gm DAILYPRN PRN GT Constipation 11/14/18 10:30 12/12/18 10:29 Sennosides (Senokot) 8.6 mg EVERY 12 HOURS GT 11/09/18 21:00 12/09/18 08:59 11/14/18 08:56 Valproic Acid (Depakene) 500 mg EVERY 8 HOURS GT 11/09/18 06:00 12/09/18 05:59 11/14/18 05:01 Vancomycin HCl (Vanco rx to dose) 1 ea DAILY PRN MISC Per rx protocol 11/10/18 16:45 12/10/18 16:44 Vancomycin HCl 750 mg/Sodium Chloride 275 ml @ 183.333 mls/hr Q12HR@0800,2000 IVPB 11/13/18 20:00 11/18/18 19:59 11/14/18 09:00 Dasha Crews MD Nov 14, 2018 11:27
[2018-11-14 12:00] VITALS: BP 128/61
--- NOTE | 2018-11-14 13:07 | Surgery Progress Note ---
Surgery Progress Note Subjective Additional Comments no acute events exam unchanged labs stable. Objective Last 24 Hour Vital Signs Date Time Temp Pulse Resp B/P (MAP) Pulse Ox O2 Delivery O2 Flow Rate FiO2 11/14/18 13:01 91 11/14/18 12:42 90 26 100 Mechanical Ventilator 30 90 26 30 11/14/18 12:00 Mechanical Ventilator 11/14/18 12:00 98.6 97 23 128/61 (83) 99 11/14/18 10:34 89 19 30 11/14/18 08:56 92 146/74 11/14/18 08:44 92 19 30 11/14/18 08:00 Mechanical Ventilator 11/14/18 08:00 30 11/14/18 08:00 99.6 86 20 146/74 (98) 100 11/14/18 07:45 84 11/14/18 07:05 86 22 100 Mechanical Ventilator 30 86 14 30 11/14/18 05:51 115/62 11/14/18 05:03 88 139/72 11/14/18 04:47 87 23 30 11/14/18 04:47 91 22 30 11/14/18 04:00 Mechanical Ventilator 11/14/18 04:00 30.0 11/14/18 04:00 98.2 88 20 138/79 (98) 100 11/14/18 04:00 90 11/14/18 02:42 87 23 30 11/14/18 00:58 87 22 98 Mechanical Ventilator 30 87 22 11/14/18 00:30 99.0 11/14/18 00:30 99.0 11/14/18 00:00 100.6 93 23 130/66 (87) 100 11/14/18 00:00 30.0 11/14/18 00:00 Mechanical Ventilator 11/13/18 23:27 89 11/13/18 22:46 92 25 30 11/13/18 22:00 109/60 11/13/18 21:03 96 145/76 11/13/18 20:50 99 22 30 11/13/18 20:00 97 11/13/18 20:00 30.0 11/13/18 20:00 98.4 96 22 143/76 (98) 100 11/13/18 20:00 Mechanical Ventilator 11/13/18 18:57 98 26 100 Mechanical Ventilator 30 98 26 11/13/18 17:20 93 21 30 11/13/18 16:00 Mechanical Ventilator 11/13/18 16:00 30.0 11/13/18 16:00 98.4 95 18 136/69 (91) 100 11/13/18 16:00 96 11/13/18 15:27 94 21 30 11/13/18 13:50 94 108/74 11/13/18 13:50 108/74 11/13/18 13:12 93 18 30 I&O Intake and Output 11/13/18 11/14/18 19:00 07:00 Intake Total 400 ml 864.1 ml Output Total 500 ml 450 ml Balance -100 ml 414.1 ml Intake Free Water 50 ml IV Total 564.1 ml Tube Feeding 400 ml 250 ml Output Urine Total 500 ml 450 ml # Bowel Movements 1 Dressing: saturated Wound: other Drains: other Cardiovascular: RSR Respiratory: clear, decreased breath sounds Abdomen: soft, present bowel sounds, non-distended Extremities: no cyanosis Laboratory Tests Test 11/13/18 17:00 11/14/18 03:45 Vancomycin Level Trough 9.0 ug/mL (5.0-12.0) White Blood Count 14.6 K/UL (4.8-10.8) H Red Blood Count 3.52 M/UL (4.20-5.40) L Hemoglobin 8.9 G/DL (12.0-16.0) L Hematocrit 27.3 % (37.0-47.0) L Mean Corpuscular Volume 78 FL (80-99) L Mean Corpuscular Hemoglobin 25.3 PG (27.0-31.0) L Mean Corpuscular Hemoglobin Concent 32.5 G/DL (32.0-36.0) Red Cell Distribution Width 23.6 % (11.6-14.8) H Platelet Count 483 K/UL (150-450) H Mean Platelet Volume 5.7 FL (6.5-10.1) L Neutrophils (%) (Auto) 82.5 % (45.0-75.0) H Lymphocytes (%) (Auto) 9.1 % (20.0-45.0) L Monocytes (%) (Auto) 5.4 % (1.0-10.0) Eosinophils (%) (Auto) 2.7 % (0.0-3.0) Basophils (%) (Auto) 0.3 % (0.0-2.0) Sodium Level 140 MMOL/L (136-145) Potassium Level 3.0 MMOL/L (3.5-5.1) L Chloride Level 102 MMOL/L (98-107) Carbon Dioxide Level 30 MMOL/L (21-32) Anion Gap 8 mmol/L (5-15) Blood Urea Nitrogen 15 mg/dL (7-18) Creatinine 0.4 MG/DL (0.55-1.30) L Estimat Glomerular Filtration Rate mL/min (>60) Glucose Level 117 MG/DL (74-106) H Calcium Level 8.2 MG/DL (8.5-10.1) L Phosphorus Level 3.0 MG/DL (2.5-4.9) Magnesium Level 2.0 MG/DL (1.8-2.4) Total Bilirubin 0.2 MG/DL (0.2-1.0) Aspartate Amino Transf (AST/SGOT) 87 U/L (15-37) H Alanine Aminotransferase (ALT/SGPT) 87 U/L (12-78) H Alkaline Phosphatase 191 U/L (46-116) H Total Protein 6.0 G/DL (6.4-8.2) L Albumin 1.2 G/DL (3.4-5.0) L Globulin 4.8 g/dL Albumin/Globulin Ratio 0.2 (1.0-2.7) L Plan Problems: (1) Fever (2) Tongue abnormality Assessment & Plan: patients jaw clenched closed and tongue has been stuck for some time. tongue split from middle teeth and now in two. edema and unable to reduce keep tongue moist. apply lube jelly prn dryness. will monitor do not recommend surgical intervention for this current medical condition (3) Tracheostomy dependence (4) Sepsis Assessment & Plan: gb no stones 6mm polyp no acute surgical intervention planned trend labs DAILY ESTIMATED NEEDS: Needs based on Critical care, sepsis, wound 60kg adj 22-30 kcals/kg 4511-4631 total kcals 1.25-2 g protein/kg 75-120 g total protein Fluid per MD, on lasix NUTRITION DIAGNOSIS: * Swallowing difficulty r/t respiratory status as evidenced by pt is vent dep via trach and PEG dep. * Increased kcal and pro needs r/t wound healing and sepsis as evidenced by pt w/ sacral and R heel wounds, febrile (Tmax 101.5). CURRENT TF: Jevity 1.2 @50 ml/hr x16 hrs ENTERAL NUTRITION RECOMMENDATIONS: Glucerna 1.2 @65ml/hr x18 hrs + Prosource x1 daily to provide 1170ml, 1404 kcal, 70g pro + 11g pro, 942 free H2O - REC TF CHANGE AND INCREASE TO BETTER MEET EST NEEDS - TF TO BE HELD FOR ONE HR BEFORE AND AFTER DILANTIN MEDS - START @20ML/HR, ADVANCE TOLERATED 15ML/HR Q4-6 HRS TO GOAL - FLUSH PER , HOB OVRE 30 DEGREES ADDITIONAL RECOMMENDATIONS: 1) CALIBRATED BED SCALE W/ ADDED P200 MATTRESS + PUMP 2) ON LASIX, MONITOR LYTES AND HYDRATION STATUS DAILY 3) TF TO RUN A MAX OF 18 HRS/DAY W/ DILANTIN TID PER PHARMACY 4) REC TF CHANGE TO CARB CONTROL FORMULA 5) WOUND CARE: ADD CHAYITO BID + VIT C 250MG DAILY (5) Fever (6) Decubitus skin ulcer Assessment & Plan: Pt presented on admission with full thickness sacral pressure injury.Base of wound is 20% necrotic , 80% slough. borders are macerated . Mild odor noted. (L)8.4cm x (W) 6.5cm. Periwound skin tone is darker without erythema,induration or elevation in skin temp. Both heels are non -blanchable and both are fluctuant when palpated. Tx.Plan: Clean wound with saline. Apply Therahoney. Aply Moisture Barrier paste periwound. Cover with Optifoam drsg. Change every 3 days and prn. Apply Cavilon Skin BArrier to both heels. Cover each heel with Optifoam drsg. Change every 7 days and prn. APM/DEIRDRE mattress overlay. Reposition at least every 2hours or as tolerated. Off-load heels with pillow. will follow with recs thank you Preet Hylton Nov 14, 2018 13:06
--- NOTE | 2018-11-14 13:32 | General Progress Note ---
Assessment/Plan Status: unchanged Assessment/Plan: Assessment/Plan Status: stable Assessment/Plan: 78-year-old female who is trach dependent who [facility] and found to have UTI and bacteremia. #Sepsis secondary to UTI, GPC Staph Epidermidis bacteremia, Line associated infection - patient arrived to the Hospital with PICC ID consult appreciate Rec Pseudomonal pneumonia, UTI due to Enterococcus F., VRE colonized Remove PICC and place new line 11/13/18 Continue antibiotics per ID: Continue Zosyn and vancomycin, anti fungal added Repeat blood cultures follow up pending Echo to eval for vegetation negative sputum cultures with pseudomonas Chest x-ray reviewed: Atelectasis # Transaminitis - trend lft's - GI consult, appreciate recs - ab us: reviewed - f/u hep panel #Elevated troponin secondary to sepsis versus ACS Cardiology consult, appreciate recs Medications per cardiology #Hypertension- improved Continue current medications, hydralazine as needed hypertension #Vent dependent Pulmonary consult, appreciate recs Vent management per pulmonary #Hypokalemia Replace, continue to monitor 3.1 today # Chronic tongue wound Supportive care # History of mood disorder Seen by psychiatry and on Depakote. Level was checked Time of note may not reflect time of patient encounter Family updated at the beside today. Previous notes from Dr. Hylton and Dr. Melchor noted updates to the family as well. Pulsed reviewed: Full code Subjective ROS Limited/Unobtainable: Yes Allergies: Coded Allergies: Crayfish (Unverified Allergy, Unknown, 11/11/18) Uncoded Allergies: Crawfish (Allergy, Unknown, 11/09/18) All Systems: reviewed and negative except above Objective Last 24 Hour Vital Signs Date Time Temp Pulse Resp B/P (MAP) Pulse Ox O2 Delivery O2 Flow Rate FiO2 11/14/18 13:01 91 11/14/18 12:42 90 26 100 Mechanical Ventilator 30 90 26 30 11/14/18 12:00 Mechanical Ventilator 11/14/18 12:00 98.6 97 23 128/61 (83) 99 11/14/18 10:34 89 19 30 11/14/18 08:56 92 146/74 11/14/18 08:44 92 19 30 11/14/18 08:00 Mechanical Ventilator 11/14/18 08:00 30 11/14/18 08:00 99.6 86 20 146/74 (98) 100 11/14/18 07:45 84 11/14/18 07:05 86 22 100 Mechanical Ventilator 30 86 14 30 11/14/18 05:51 115/62 11/14/18 05:03 88 139/72 11/14/18 04:47 87 23 30 11/14/18 04:47 91 22 30 11/14/18 04:00 Mechanical Ventilator 11/14/18 04:00 30.0 11/14/18 04:00 98.2 88 20 138/79 (98) 100 11/14/18 04:00 90 11/14/18 02:42 87 23 30 11/14/18 00:58 87 22 98 Mechanical Ventilator 30 87 22 11/14/18 00:30 99.0 11/14/18 00:30 99.0 11/14/18 00:00 100.6 93 23 130/66 (87) 100 11/14/18 00:00 30.0 11/14/18 00:00 Mechanical Ventilator 11/13/18 23:27 89 11/13/18 22:46 92 25 30 11/13/18 22:00 109/60 11/13/18 21:03 96 145/76 11/13/18 20:50 99 22 30 11/13/18 20:00 97 11/13/18 20:00 30.0 11/13/18 20:00 98.4 96 22 143/76 (98) 100 11/13/18 20:00 Mechanical Ventilator 11/13/18 18:57 98 26 100 Mechanical Ventilator 30 98 26 11/13/18 17:20 93 21 30 11/13/18 16:00 Mechanical Ventilator 11/13/18 16:00 30.0 11/13/18 16:00 98.4 95 18 136/69 (91) 100 11/13/18 16:00 96 11/13/18 15:27 94 21 30 11/13/18 13:50 94 108/74 11/13/18 13:50 108/74 Intake and Output 11/13/18 11/14/18 19:00 07:00 Intake Total 400 ml 864.1 ml Output Total 500 ml 450 ml Balance -100 ml 414.1 ml Intake Free Water 50 ml IV Total 564.1 ml Tube Feeding 400 ml 250 ml Output Urine Total 500 ml 450 ml # Bowel Movements 1 Laboratory Tests 11/13/18 17:00: Vancomycin Level Trough 9.0 11/14/18 03:45: White Blood Count 14.6H, Red Blood Count 3.52L, Hemoglobin 8.9L, Hematocrit 27.3L, Mean Corpuscular Volume 78L, Mean Corpuscular Hemoglobin 25.3L, Mean Corpuscular Hemoglobin Concent 32.5, Red Cell Distribution Width 23.6H, Platelet Count 483H, Mean Platelet Volume 5.7L, Neutrophils (%) (Auto) 82.5H, Lymphocytes (%) (Auto) 9.1L, Monocytes (%) (Auto) 5.4, Eosinophils (%) (Auto) 2.7, Basophils (%) (Auto) 0.3, Sodium Level 140, Potassium Level 3.0L, Chloride Level 102, Carbon Dioxide Level 30, Anion Gap 8, Blood Urea Nitrogen 15, Creatinine 0.4L, Estimat Glomerular Filtration Rate , Glucose Level 117H, Calcium Level 8.2L, Phosphorus Level 3.0, Magnesium Level 2.0, Total Bilirubin 0.2, Aspartate Amino Transf (AST/SGOT) 87H, Alanine Aminotransferase (ALT/SGPT) 87H, Alkaline Phosphatase 191H, Total Protein 6.0L, Albumin 1.2L, Globulin 4.8, Albumin/Globulin Ratio 0.2L 11/14/18 11:40: Stool Occult Blood [Pending] Height (Feet): 5 Height (Inches): 8.00 Weight (Pounds): 174 General Appearance: moderate distress EENT: pale conjunctivae Neck: other - tracheostomy and 1 x 1 cm wound in the R lower aspect of the tracheostomy Cardiovascular: normal rate, regular rhythm Respiratory/Chest: lungs clear, normal breath sounds Abdomen: non tender, soft Extremities: normal inspection Edema: trace edema Neurologic: unresponsive Florinda Treviño MD Nov 14, 2018 13:32
[2018-11-14 16:00] VITALS: BP 141/75
--- NOTE | 2018-11-14 19:20 | NUR ---
HAND-OFF: Report given to Marcus Krause RN.
--- NOTE | 2018-11-14 19:21 | NUR ---
NURSE NOTES: Received patient from Alessia DESHPANDE. Patient is obtunded and receiving oxygen via trach to vent, settings: Shiley 8, AC 14, TV 375, FiO2 30%, and PEEP 5. G-tube is patent and receiving Jevity 1.2 @ 50cc/hr, patient tolerating well, no residuals. IV site is Right Upper Arm PICC, patent and asymptomatic, dressing changed 11/13/18. Bed is locked, placed in lowest position, side rails up x3, bed alarm on, call light within reach. Will continue to monitor.
--- NOTE | 2018-11-14 19:28 | NUR ---
RESPIRATORY NOTE: Received pt on AC 14, 375VT, 30%, PEEP +5. Pt i trach-dependent w/ a cuffed, Shiley 8 tube. Pt obtunded.B/S didi. rhonchi, sxn small to moderate amounts of thick/thin, pale-yellow secretions. Vent plugged into red outlet, ambubag at bedside. Pt in no apparent distress at this time. Will continue plan of care.
[2018-11-14 20:00] VITALS: BP 130/76
[2018-11-14] MEDS: Dyna-Hex 2% Top Sol 2oz TOPIC SCH (20:19)
--- NOTE | 2018-11-14 20:28 | Hematology/Onc Progress Note ---
Assessment/Plan Assessment/Plan # Anemia of chronic disease due to underlying chronic medical issues, multifactorial --> Anemia workup has been reviewed and cw acd --> No evidence of hemolysis is noted, peripheral smear has been reviewed. --> Hgb goal >7. Transfuse prn. --> hgb trend 9.1-->8.9 --> Epogen or iron at this time is not particularly indicated --> Medications have been reviewed --> low threshold for gi evaluation in case has occult + --> bone marrow biopsy is not indicated given the other more likely causes # Leukocytosis iwth Sepsis secondary to UTI, GPC Staph Epidermidis bacteremia, Line associated infection - patient arrived to the Hospital with PICC --> as per ID consult appreciate Rec --> Continue antibiotics per ID: Continue Zosyn and vancomycin, anti fungal added --> imaging noted # Transaminitis --> trend lft's --> GI consult, appreciate recs --> ab us: reviewed # Elevated troponin secondary to sepsis versus ACS --> as per Cardiology consult, appreciate recs --> now better # Hypertension- improved --> sbp goal <150 # Vent dependent --> as per Pulmonary consult, appreciate recs # Hypokalemia The timing of this note does not necessarily reflect the time of the patient was seen. GREATLY APPRECIATE CONSULTATION. Subjective Constitutional: Denies: no symptoms, chills, fever, malaise, weakness, other HEENT: Denies: no symptoms, eye pain, blurred vision, tearing, double vision, ear pain, ear discharge, nose pain, nose congestion, throat pain, throat swelling, mouth pain, mouth swelling, other Cardiovascular: Denies: no symptoms, chest pain, edema, irregular heart rate, lightheadedness, palpitations, syncope, other Respiratory: Denies: no symptoms, cough, shortness of breath, SOB with excertion, SOB at rest, sputum, wheezing, other Gastrointestinal/Abdominal: Denies: no symptoms, abdomen distended, abdominal pain, black stools, tarry stools, blood in stool, constipated, diarrhea, difficulty swallowing, nausea, poor appetite, poor fluid intake, rectal bleeding , vomiting, other Genitourinary: Denies: no symptoms, burning, discharge, frequency, flank pain, hematuria, incontinence, pain, urgency, other Neurologic/Psychiatric: Denies: no symptoms, anxiety, depressed, emotional problems, headache, numbness, paresthesia, pre-existing deficit, seizure, tingling, tremors, weakness, other Allergies: Coded Allergies: Crayfish (Unverified Allergy, Unknown, 11/11/18) Uncoded Allergies: Crawfish (Allergy, Unknown, 11/09/18) Subjective 11/14: no events to report, labs relatively stable, hgb 8.9, on vent Objective Objective Current Medications Medications (Trade) Dose Ordered Sig/Lupe Route PRN Reason Start Time Stop Time Status Last Admin Dose Admin Acetaminophen (Tylenol) 650 mg Q4H PRN GT Mild Pain/Temp > 100.5 11/09/18 05:00 12/09/18 04:59 11/14/18 00:00 Amlodipine Besylate (Norvasc) 10 mg DAILY GT 11/09/18 09:00 12/09/18 08:59 11/14/18 08:56 Bisacodyl (Dulcolax) 10 mg DAILY PRN RECTAL Constipation 11/09/18 05:00 12/09/18 04:59 Calcium Carbonate (Tums) 500 mg EVERY 8 HOURS GT 11/09/18 14:00 12/09/18 08:59 11/14/18 15:01 Chlorhexidine Gluconate (Corazon-Hex 2%) 1 applic DAILY@2000 TOPIC 11/12/18 20:00 12/12/18 19:59 11/14/18 20:19 Dextrose (Dextrose 50%) 25 ml Q30M PRN IV Hypoglycemia 11/09/18 04:45 12/09/18 04:44 Dextrose (Dextrose 50%) 50 ml Q30M PRN IV Hypoglycemia 11/09/18 04:45 12/09/18 04:44 11/09/18 09:09 Enoxaparin Sodium (Lovenox) 40 mg DAILY SUBQ 11/09/18 09:00 12/09/18 08:59 11/14/18 08:58 Famotidine (Pepcid) 20 mg EVERY 12 HOURS GT 11/09/18 21:00 12/09/18 08:59 11/14/18 08:55 Fluconazole/ Sodium Chloride 100 ml @ 100 mls/hr Q24H IV 11/13/18 13:00 11/20/18 12:59 11/14/18 13:32 Furosemide (Lasix) 40 mg EVERY 12 HOURS GT 11/09/18 09:00 12/09/18 08:59 11/14/18 08:56 Heparin Sodium/ Sodium Chloride (Heparin 1000 units/500ml Premix) 1,000 unit ONCE PRN IV PICC LINE 11/13/18 09:00 11/14/18 23:59 Hydralazine HCl (Apresoline) 5 mg EVERY 8 HOURS GT 11/09/18 06:00 12/09/18 05:59 11/14/18 15:02 Insulin Aspart (NovoLOG) Q6HR SUBQ 11/09/18 06:00 12/09/18 05:59 11/14/18 13:34 Insulin Detemir (Levemir) 6 units EVERY 12 HOURS SUBQ 11/14/18 21:00 12/09/18 08:59 Iron Sucrose 100 mg/Sodium Chloride 60 ml @ 240 mls/hr BEDTIME IVPB 11/11/18 21:00 11/15/18 21:14 11/13/18 20:43 Labetalol HCl (Normodyne) 200 mg Q8HR GT 11/09/18 06:00 12/09/18 05:59 11/14/18 15:02 Levetiracetam (Keppra) 1,500 mg Q12HR GT 11/09/18 09:00 12/09/18 08:59 11/14/18 08:55 Lidocaine HCl (Xylocaine 1% 30ml) 30 ml ONCE PRN INJ PICC LINE 11/13/18 09:00 11/14/18 23:59 Lorazepam (Ativan 2mg/ml 1ml) 2 mg DAILY PRN IVP For Seizures 11/09/18 05:00 11/16/18 04:59 Magnesium Hydroxide (Mom) 30 ml DAILY PRN GT Constipation 11/09/18 05:00 12/09/18 04:59 Magnesium Oxide (Mag-Ox 400mg) 400 mg EVERY 8 HOURS GT 11/09/18 14:00 12/09/18 08:59 11/14/18 15:01 Ondansetron HCl (Zofran) 4 mg Q6H PRN GT Nausea & Vomiting 11/09/18 05:00 12/09/18 04:59 Phenobarbital (PHENobarbital) 60 mg BID GT 11/09/18 09:00 12/09/18 08:59 11/14/18 17:50 Phenytoin (Dilantin) 100 mg Q8HR GT 11/09/18 06:00 12/09/18 05:59 11/14/18 15:01 Piperacillin Sod/ Tazobactam Sod 3.375 gm/Sodium Chloride 110 ml @ 27.5 mls/hr Q8H IVPB 11/14/18 14:00 11/21/18 13:59 11/14/18 15:02 Polyethylene Glycol (Miralax) 17 gm DAILYPRN PRN GT Constipation 11/14/18 10:30 12/12/18 10:29 Sennosides (Senokot) 8.6 mg EVERY 12 HOURS GT 11/09/18 21:00 12/09/18 08:59 11/14/18 08:56 Valproic Acid (Depakene) 500 mg EVERY 8 HOURS GT 11/09/18 06:00 12/09/18 05:59 11/14/18 15:02 Vancomycin HCl (Vanco rx to dose) 1 ea DAILY PRN MISC Per rx protocol 11/10/18 16:45 12/10/18 16:44 Vancomycin HCl 750 mg/Sodium Chloride 275 ml @ 183.333 mls/hr Q12HR@0800,2000 IVPB 11/13/18 20:00 11/18/18 19:59 11/14/18 20:19 Last 24 Hour Vital Signs Date Time Temp Pulse Resp B/P (MAP) Pulse Ox O2 Delivery O2 Flow Rate FiO2 11/14/18 19:26 92 22 30 11/14/18 17:10 84 23 30 11/14/18 17:01 82 11/14/18 16:00 99.8 88 19 141/75 (97) 100 11/14/18 16:00 30 11/14/18 16:00 Mechanical Ventilator 11/14/18 15:02 91 128/61 11/14/18 15:02 128/61 11/14/18 15:01 82 22 30 11/14/18 13:01 91 11/14/18 12:42 90 26 100 Mechanical Ventilator 30 90 26 30 11/14/18 12:00 Mechanical Ventilator 11/14/18 12:00 98.6 97 23 128/61 (83) 99 11/14/18 12:00 30 11/14/18 10:34 89 19 30 11/14/18 08:56 92 146/74 11/14/18 08:44 92 19 30 11/14/18 08:00 Mechanical Ventilator 11/14/18 08:00 30 11/14/18 08:00 99.6 86 20 146/74 (98) 100 11/14/18 07:45 84 11/14/18 07:05 86 22 100 Mechanical Ventilator 30 86 14 30 11/14/18 05:51 115/62 11/14/18 05:03 88 139/72 11/14/18 04:47 87 23 30 11/14/18 04:47 91 22 30 11/14/18 04:00 Mechanical Ventilator 11/14/18 04:00 30.0 11/14/18 04:00 98.2 88 20 138/79 (98) 100 11/14/18 04:00 90 11/14/18 02:42 87 23 30 11/14/18 00:58 87 22 98 Mechanical Ventilator 30 87 22 11/14/18 00:30 99.0 11/14/18 00:30 99.0 11/14/18 00:00 100.6 93 23 130/66 (87) 100 11/14/18 00:00 30.0 11/14/18 00:00 Mechanical Ventilator 11/13/18 23:27 89 11/13/18 22:46 92 25 30 11/13/18 22:00 109/60 11/13/18 21:03 96 145/76 11/13/18 20:50 99 22 30 11/13/18 20:00 97 11/13/18 20:00 30.0 11/13/18 20:00 98.4 96 22 143/76 (98) 100 11/13/18 20:00 Mechanical Ventilator 11/13/18 18:57 98 26 100 Mechanical Ventilator 30 98 26 11/13/18 17:20 93 21 30 11/13/18 16:00 Mechanical Ventilator 11/13/18 16:00 30.0 11/13/18 16:00 98.4 95 18 136/69 (91) 100 11/13/18 16:00 96 11/13/18 15:27 94 21 30 11/13/18 13:50 94 108/74 11/13/18 13:50 108/74 8/26/19 13:12 93 18 30 11/13/18 12:00 96 11/13/18 12:00 Mechanical Ventilator 11/13/18 12:00 30.0 11/13/18 11:51 97.9 92 18 117/61 (79) 100 11/13/18 11:28 93 21 30 11/13/18 09:15 91 23 30 11/13/18 09:00 Mechanical Ventilator 11/13/18 08:28 97 114/57 11/13/18 08:00 30.0 11/13/18 08:00 96 11/13/18 08:00 97.5 95 26 114/53 (73) 100 11/13/18 07:29 98 21 100 Mechanical Ventilator 30 100 22 11/13/18 06:00 107/57 11/13/18 05:11 86 23 30 11/13/18 05:00 105 141/82 11/13/18 04:00 Mechanical Ventilator 11/13/18 04:00 30.0 11/13/18 03:25 100.5 105 26 141/82 (101) 100 11/13/18 03:23 104 11/13/18 02:34 91 29 30 11/13/18 01:15 91 24 100 Mechanical Ventilator 30 94 19 30 11/13/18 00:00 92 11/13/18 00:00 Mechanical Ventilator 11/13/18 00:00 30.0 11/13/18 00:00 99.0 93 24 138/78 (98) 100 11/12/18 23:19 93 26 30 11/12/18 21:59 112/78 11/12/18 21:24 91 24 30 11/12/18 21:12 101 138/72 Intake and Output 11/13/18 11/14/18 19:00 07:00 Intake Total 400 ml 864.1 ml Output Total 500 ml 450 ml Balance -100 ml 414.1 ml Intake Free Water 50 ml IV Total 564.1 ml Tube Feeding 400 ml 250 ml Output Urine Total 500 ml 450 ml # Bowel Movements 1 Labs Test 11/12/18 04:30 11/13/18 04:00 11/13/18 07:30 11/13/18 17:00 White Blood Count 7.3 K/UL (4.8-10.8) 16.0 K/UL (4.8-10.8) 15.6 K/UL (4.8-10.8) Red Blood Count 3.42 M/UL (4.20-5.40) 3.87 M/UL (4.20-5.40) 3.67 M/UL (4.20-5.40) Hemoglobin 8.6 G/DL (12.0-16.0) 9.7 G/DL (12.0-16.0) 9.2 G/DL (12.0-16.0) Hematocrit 26.6 % (37.0-47.0) 30.4 % (37.0-47.0) 28.8 % (37.0-47.0) Mean Corpuscular Volume 78 FL (80-99) 79 FL (80-99) 79 FL (80-99) Mean Corpuscular Hemoglobin 25.0 PG (27.0-31.0) 25.0 PG (27.0-31.0) 25.1 PG (27.0-31.0) Mean Corpuscular Hemoglobin Concent 32.2 G/DL (32.0-36.0) 31.9 G/DL (32.0-36.0) 31.9 G/DL (32.0-36.0) Red Cell Distribution Width 23.9 % (11.6-14.8) 23.6 % (11.6-14.8) 23.7 % (11.6-14.8) Platelet Count 367 K/UL (150-450) 468 K/UL (150-450) 451 K/UL (150-450) Mean Platelet Volume 5.7 FL (6.5-10.1) 5.7 FL (6.5-10.1) 5.5 FL (6.5-10.1) Neutrophils (%) (Auto) 74.6 % (45.0-75.0) 82.3 % (45.0-75.0) 80.0 % (45.0-75.0) Lymphocytes (%) (Auto) 11.6 % (20.0-45.0) 9.5 % (20.0-45.0) 11.8 % (20.0-45.0) Monocytes (%) (Auto) 7.2 % (1.0-10.0) 5.6 % (1.0-10.0) 5.0 % (1.0-10.0) Eosinophils (%) (Auto) 6.3 % (0.0-3.0) 2.2 % (0.0-3.0) 2.4 % (0.0-3.0) Basophils (%) (Auto) 0.3 % (0.0-2.0) 0.4 % (0.0-2.0) 0.8 % (0.0-2.0) Sodium Level 142 MMOL/L (136-145) 137 MMOL/L (136-145) Potassium Level 3.3 MMOL/L (3.5-5.1) 4.2 MMOL/L (3.5-5.1) Chloride Level 105 MMOL/L (98-107) 102 MMOL/L (98-107) Carbon Dioxide Level 30 MMOL/L (21-32) 30 MMOL/L (21-32) Anion Gap 7 mmol/L (5-15) 5 mmol/L (5-15) Blood Urea Nitrogen 15 mg/dL (7-18) 15 mg/dL (7-18) Creatinine 0.4 MG/DL (0.55-1.30) 0.5 MG/DL (0.55-1.30) Estimat Glomerular Filtration Rate mL/min (>60) mL/min (>60) Glucose Level 87 MG/DL (74-106) 122 MG/DL (74-106) Calcium Level 7.4 MG/DL (8.5-10.1) 8.5 MG/DL (8.5-10.1) Ferritin 303 NG/ML (8-388) Total Bilirubin 0.2 MG/DL (0.2-1.0) 0.2 MG/DL (0.2-1.0) Aspartate Amino Transf (AST/SGOT) 81 U/L (15-37) 108 U/L (15-37) Alanine Aminotransferase (ALT/SGPT) 85 U/L (12-78) 108 U/L (12-78) Alkaline Phosphatase 174 U/L (46-116) 219 U/L (46-116) Total Protein 5.3 G/DL (6.4-8.2) 6.3 G/DL (6.4-8.2) Albumin 1.1 G/DL (3.4-5.0) 1.4 G/DL (3.4-5.0) Globulin 4.2 g/dL 4.9 g/dL Albumin/Globulin Ratio 0.3 (1.0-2.7) 0.3 (1.0-2.7) Vancomycin Level Trough 9.0 ug/mL (5.0-12.0) Test 11/14/18 03:45 11/14/18 11:40 White Blood Count 14.6 K/UL (4.8-10.8) Red Blood Count 3.52 M/UL (4.20-5.40) Hemoglobin 8.9 G/DL (12.0-16.0) Hematocrit 27.3 % (37.0-47.0) Mean Corpuscular Volume 78 FL (80-99) Mean Corpuscular Hemoglobin 25.3 PG (27.0-31.0) Mean Corpuscular Hemoglobin Concent 32.5 G/DL (32.0-36.0) Red Cell Distribution Width 23.6 % (11.6-14.8) Platelet Count 483 K/UL (150-450) Mean Platelet Volume 5.7 FL (6.5-10.1) Neutrophils (%) (Auto) 82.5 % (45.0-75.0) Lymphocytes (%) (Auto) 9.1 % (20.0-45.0) Monocytes (%) (Auto) 5.4 % (1.0-10.0) Eosinophils (%) (Auto) 2.7 % (0.0-3.0) Basophils (%) (Auto) 0.3 % (0.0-2.0) Sodium Level 140 MMOL/L (136-145) Potassium Level 3.0 MMOL/L (3.5-5.1) Chloride Level 102 MMOL/L (98-107) Carbon Dioxide Level 30 MMOL/L (21-32) Anion Gap 8 mmol/L (5-15) Blood Urea Nitrogen 15 mg/dL (7-18) Creatinine 0.4 MG/DL (0.55-1.30) Estimat Glomerular Filtration Rate mL/min (>60) Glucose Level 117 MG/DL (74-106) Calcium Level 8.2 MG/DL (8.5-10.1) Phosphorus Level 3.0 MG/DL (2.5-4.9) Magnesium Level 2.0 MG/DL (1.8-2.4) Total Bilirubin 0.2 MG/DL (0.2-1.0) Aspartate Amino Transf (AST/SGOT) 87 U/L (15-37) Alanine Aminotransferase (ALT/SGPT) 87 U/L (12-78) Alkaline Phosphatase 191 U/L (46-116) Total Protein 6.0 G/DL (6.4-8.2) Albumin 1.2 G/DL (3.4-5.0) Globulin 4.8 g/dL Albumin/Globulin Ratio 0.2 (1.0-2.7) Height (Feet): 5 Height (Inches): 8.00 Weight (Pounds): 174 Objective Physical Exam: Vitals: reviewed General Appearance: NAD HEENT: normocephalic, atraumatic Neck: non-tender, normal alignment ++ vent Respiratory/Chest: normal breath sounds bilaterally Cardiovascular/Chest: normal peripheral pulses, normal rate Abdomen: normal bowel sounds, soft, nontender += gtube Extremities: normal range of motion Yonathan Hernandez MD Nov 14, 2018 20:28
[2018-11-14] MEDS: Acetaminophen 650mg/20.3ml GT PRN ×2 (20:57)
[2018-11-14] MEDS: Iron Sucrose 100 MG in NS 55 ML IVPB SCH (20:59)
[2018-11-15] VITALS (7 sets, daily range): BP systolic 100–146; BP diastolic 50–99
[2018-11-15] MEDS: NovoLOG Insulin Flexpen SUBQ SCH ×5 (00:20→23:00)
--- NOTE | 2018-11-15 04:00 | Progress Note ---
DATE: 11/14/2018 SUBJECTIVE: . Mental condition unchanged. She is nonverbal. She has agitation, cognitive impairment. No suicidal or homicidal ideation. No violent behaviors. ASSESSMENT: Stable at baseline. PLAN: Continue current treatment. Viviane Melchor M.D. DR: PALOMA JOB#: [id number] CC:
[2018-11-15 05:09] LABS: BASOPHILS % (AUTO) 0.6 % (0.0-2.0); EOSINOPHILS % (AUTO) 7.3 % (0.0-3.0); HEMATOCRIT 28.4 % (37.0-47.0); MEAN CORPUSCULAR VOLUME 78 FL (80-99); MONOCYTES % (AUTO) 7.3 % (1.0-10.0); NEUTROPHILS % (AUTO) 76.8 % (45.0-75.0); PLATELET COUNT 550 K/UL (150-450); RED BLOOD COUNT 3.64 M/UL (4.20-5.40); WHITE BLOOD COUNT 11.8 K/UL (4.8-10.8)
[2018-11-15 05:49] LABS: ALANINE AMINOTRANSFERASE 84 U/L (12-78); ALBUMIN 1.3 G/DL (3.4-5.0); ALBUMIN/GLOBULIN RATIO 0.3 (1.0-2.7); ALKALINE PHOSPHATASE 196 U/L (46-116); ANION GAP 8 mmol/L (5-15); ASPARTATE AMINO TRANSFERASE 77 U/L (15-37); BILIRUBIN,TOTAL 0.2 MG/DL (0.2-1.0); BLOOD UREA NITROGEN 14 mg/dL (7-18); CALCIUM 8.4 MG/DL (8.5-10.1); CARBON DIOXIDE 31 MMOL/L (21-32); CHLORIDE 103 MMOL/L (98-107); CREATININE 0.4 MG/DL (0.55-1.30); PHOSPHORUS 2.5 MG/DL (2.5-4.9); POTASSIUM 3.6 MMOL/L (3.5-5.1); SODIUM 141 MMOL/L (136-145)
[2018-11-15] MEDS: Tums 500mg GT SCH ×3 (06:27→21:15)
[2018-11-15] MEDS: HydrALAZINE 10mg Tab GT SCH ×3 (06:27→22:00)
[2018-11-15] MEDS: Magnesium Oxide 400mg tab GT SCH ×3 (06:27→21:15)
[2018-11-15] MEDS: Labetalol 200mg tab GT SCH ×3 (06:27→21:15)
[2018-11-15] MEDS: Phenytoin Susp 100mg/4ml GT SCH ×3 (06:28→21:14)
[2018-11-15] MEDS: Valproic Acid 250mg/5ml Liquid GT SCH ×3 (06:28→21:15)
[2018-11-15] MEDS: Piperacillin/Tazobactam 3.375 GM in NS 110 ML IVPB SCH ×3 (06:34→21:34)
--- NOTE | 2018-11-15 07:11 | NUR ---
HAND-OFF: Report given to Alessia DESHPANDE.
--- NOTE | 2018-11-15 07:12 | NUR ---
NURSE NOTES: Received patient in bed. Obtunded, vent dependent. With nava cath and GT inplace. Right upper Arm PICC noted. Contact isolation observed. Will continue plan of care.
--- NOTE | 2018-11-15 07:30 | General Progress Note ---
Assessment/Plan Status: unchanged Assessment/Plan: Assessment - Iron deficiency anemia - abnormal LFT - ? meds, passive congestion - dysphagia, s/p GT - Resp, failure, s/p Trach - hepatitis panel negative Recommendations - Continue TF - Monitor LFT - declining - IV Iron - follow CBC - Conservative approach given poor health Subjective ROS Limited/Unobtainable: Yes Allergies: Coded Allergies: Crayfish (Unverified Allergy, Unknown, 11/11/18) Uncoded Allergies: Crawfish (Allergy, Unknown, 11/09/18) Subjective fever last night had BM Objective Last 24 Hour Vital Signs Date Time Temp Pulse Resp B/P (MAP) Pulse Ox O2 Delivery O2 Flow Rate FiO2 11/15/18 06:52 89 22 30 11/15/18 06:27 94 157/78 11/15/18 06:27 157/78 11/15/18 05:04 88 22 30 11/15/18 04:00 98.8 92 25 146/99 (115) 100 11/15/18 04:00 Mechanical Ventilator 11/15/18 04:00 30 11/15/18 03:25 89 11/15/18 03:24 88 22 30 11/15/18 01:10 82 19 30 11/15/18 00:00 99.2 80 17 121/57 (78) 97 11/15/18 00:00 Mechanical Ventilator 11/14/18 23:26 80 11/14/18 23:16 80 20 30 11/14/18 22:20 85 134/67 11/14/18 22:19 134/67 11/14/18 21:27 98.2 11/14/18 21:05 89 21 30 11/14/18 20:00 Mechanical Ventilator 11/14/18 20:00 100.9 91 21 130/76 (94) 99 11/14/18 20:00 30 11/14/18 19:34 90 11/14/18 19:26 92 22 30 11/14/18 17:10 84 23 30 11/14/18 17:01 82 11/14/18 16:00 99.8 88 19 141/75 (97) 100 11/14/18 16:00 30 11/14/18 16:00 Mechanical Ventilator 11/14/18 15:02 91 128/61 11/14/18 15:02 128/61 11/14/18 15:01 82 22 30 11/14/18 13:01 91 11/14/18 12:42 90 26 100 Mechanical Ventilator 30 90 26 30 11/14/18 12:00 Mechanical Ventilator 11/14/18 12:00 98.6 97 23 128/61 (83) 99 11/14/18 12:00 30 11/14/18 10:34 89 19 30 11/14/18 08:56 92 146/74 11/14/18 08:44 92 19 30 11/14/18 08:00 Mechanical Ventilator 11/14/18 08:00 30 11/14/18 08:00 99.6 86 20 146/74 (98) 100 11/14/18 07:45 84 Intake and Output 11/14/18 11/15/18 19:00 07:00 Intake Total 1142.50 ml 680 ml Output Total 800 ml 500 ml Balance 342.50 ml 180 ml Intake Free Water 80 ml IV Total 512.50 ml Tube Feeding 450 ml 600 ml Other 180 ml Output Urine Total 800 ml 500 ml # Bowel Movements 2 2 Laboratory Tests 11/14/18 11:40: Stool Occult Blood [Pending] 11/15/18 04:30: White Blood Count 11.8H, Red Blood Count 3.64L, Hemoglobin 9.0L, Hematocrit 28.4L, Mean Corpuscular Volume 78L, Mean Corpuscular Hemoglobin 24.8L, Mean Corpuscular Hemoglobin Concent 31.8L, Red Cell Distribution Width 23.0H, Platelet Count 550H, Mean Platelet Volume 5.4L, Neutrophils (%) (Auto) 76.8H, Lymphocytes (%) (Auto) 8.0L, Monocytes (%) (Auto) 7.3, Eosinophils (%) (Auto) 7.3H, Basophils (%) (Auto) 0.6, Sodium Level 141, Potassium Level 3.6, Chloride Level 103, Carbon Dioxide Level 31, Anion Gap 8, Blood Urea Nitrogen 14, Creatinine 0.4L, Estimat Glomerular Filtration Rate , Glucose Level 112H, Calcium Level 8.4L, Phosphorus Level 2.5, Magnesium Level 2.0, Total Bilirubin 0.2, Aspartate Amino Transf (AST/SGOT) 77H, Alanine Aminotransferase (ALT/SGPT) 84H, Alkaline Phosphatase 196H, Total Protein 5.6L, Albumin 1.3L, Globulin 4.3, Albumin/Globulin Ratio 0.3L Height (Feet): 5 Height (Inches): 8.00 Weight (Pounds): 205 General Appearance: no apparent distress EENT: PERRL/EOMI Neck: supple Cardiovascular: normal rate Respiratory/Chest: decreased breath sounds Abdomen: normal bowel sounds, non tender, soft Extremities: non-tender Casper Humphries MD Nov 15, 2018 07:30
--- NOTE | 2018-11-15 08:00 | NUR ---
NURSE NOTES: Right upper arm PICC noted with biopatch and clear dressing. Dressing changed noted 11/13.
--- NOTE | 2018-11-15 08:53 | Hematology/Onc Progress Note ---
Assessment/Plan Assessment/Plan # Anemia of chronic disease due to underlying chronic medical issues, multifactorial --> Anemia workup has been reviewed and cw acd --> No evidence of hemolysis is noted, peripheral smear has been reviewed. --> Hgb goal >7. Transfuse prn. --> hgb trend 9.1-->8.9-->9 --> Epogen or iron at this time is not particularly indicated --> Medications have been reviewed --> low threshold for gi evaluation in case has occult + --> bone marrow biopsy is not indicated given the other more likely causes # Leukocytosis iwth Sepsis secondary to UTI, GPC Staph Epidermidis bacteremia, Line associated infection - patient arrived to the Hospital with PICC --> as per ID consult appreciate Rec --> Continue antibiotics per ID: Continue Zosyn and vancomycin, anti fungal added --> imaging noted # Transaminitis --> trend lft's --> GI consult, apprec recs --> ab us: reviewed # Elevated troponin secondary to sepsis versus ACS --> as per Cardiology consult, appreciate recs --> now better # Hypertension- improved --> sbp goal <150 # Vent dependent --> as per Pulmonary recs # Hypokalemia The timing of this note does not necessarily reflect the time of the patient was seen. GREATLY APPRECIATE CONSULTATION. Subjective Constitutional: Denies: no symptoms, chills, fever, malaise, weakness, other HEENT: Denies: no symptoms, eye pain, blurred vision, tearing, double vision, ear pain, ear discharge, nose pain, nose congestion, throat pain, throat swelling, mouth pain, mouth swelling, other Cardiovascular: Denies: no symptoms, chest pain, edema, irregular heart rate, lightheadedness, palpitations, syncope, other Respiratory: Denies: no symptoms, cough, shortness of breath, SOB with excertion, SOB at rest, sputum, wheezing, other Gastrointestinal/Abdominal: Denies: no symptoms, abdomen distended, abdominal pain, black stools, tarry stools, blood in stool, constipated, diarrhea, difficulty swallowing, nausea, poor appetite, poor fluid intake, rectal bleeding , vomiting, other Genitourinary: Denies: no symptoms, burning, discharge, frequency, flank pain, hematuria, incontinence, pain, urgency, other Neurologic/Psychiatric: Denies: no symptoms, anxiety, depressed, emotional problems, headache, numbness, paresthesia, pre-existing deficit, seizure, tingling, tremors, weakness, other Allergies: Coded Allergies: Crayfish (Unverified Allergy, Unknown, 11/11/18) Uncoded Allergies: Crawfish (Allergy, Unknown, 11/09/18) Subjective 11/14: no events to report, labs relatively stable, hgb 8.9, on vent 11/15: no bleeding, no chills, labs reviewed, no major changes Objective Objective Current Medications Medications (Trade) Dose Ordered Sig/Lupe Route PRN Reason Start Time Stop Time Status Last Admin Dose Admin Acetaminophen (Tylenol) 650 mg Q4H PRN GT Mild Pain/Temp > 100.5 11/09/18 05:00 12/09/18 04:59 11/14/18 20:57 Amlodipine Besylate (Norvasc) 10 mg DAILY GT 11/09/18 09:00 12/09/18 08:59 11/14/18 08:56 Bisacodyl (Dulcolax) 10 mg DAILY PRN RECTAL Constipation 11/09/18 05:00 12/09/18 04:59 Calcium Carbonate (Tums) 500 mg EVERY 8 HOURS GT 11/09/18 14:00 12/09/18 08:59 11/15/18 06:27 Chlorhexidine Gluconate (Corazon-Hex 2%) 1 applic DAILY@2000 TOPIC 11/12/18 20:00 12/12/18 19:59 11/14/18 20:19 Dextrose (Dextrose 50%) 25 ml Q30M PRN IV Hypoglycemia 11/09/18 04:45 12/09/18 04:44 Dextrose (Dextrose 50%) 50 ml Q30M PRN IV Hypoglycemia 11/09/18 04:45 12/09/18 04:44 11/09/18 09:09 Enoxaparin Sodium (Lovenox) 40 mg DAILY SUBQ 11/09/18 09:00 12/09/18 08:59 11/14/18 08:58 Famotidine (Pepcid) 20 mg EVERY 12 HOURS GT 11/09/18 21:00 12/09/18 08:59 11/14/18 20:58 Fluconazole/ Sodium Chloride 100 ml @ 100 mls/hr Q24H IV 11/13/18 13:00 11/20/18 12:59 11/14/18 13:32 Furosemide (Lasix) 40 mg EVERY 12 HOURS GT 11/09/18 09:00 12/09/18 08:59 11/14/18 20:58 Hydralazine HCl (Apresoline) 5 mg EVERY 8 HOURS GT 11/09/18 06:00 12/09/18 05:59 11/15/18 06:27 Insulin Aspart (NovoLOG) Q6HR SUBQ 11/09/18 06:00 12/09/18 05:59 11/15/18 00:20 Insulin Detemir (Levemir) 6 units EVERY 12 HOURS SUBQ 11/14/18 21:00 12/09/18 08:59 Iron Sucrose 100 mg/Sodium Chloride 60 ml @ 240 mls/hr BEDTIME IVPB 11/11/18 21:00 11/15/18 21:14 11/14/18 20:59 Labetalol HCl (Normodyne) 200 mg Q8HR GT 11/09/18 06:00 12/09/18 05:59 11/15/18 06:27 Levetiracetam (Keppra) 1,500 mg Q12HR GT 11/09/18 09:00 12/09/18 08:59 11/14/18 20:57 Lorazepam (Ativan 2mg/ml 1ml) 2 mg DAILY PRN IVP For Seizures 11/09/18 05:00 11/16/18 04:59 Magnesium Hydroxide (Mom) 30 ml DAILY PRN GT Constipation 11/09/18 05:00 12/09/18 04:59 Magnesium Oxide (Mag-Ox 400mg) 400 mg EVERY 8 HOURS GT 11/09/18 14:00 12/09/18 08:59 11/15/18 06:27 Ondansetron HCl (Zofran) 4 mg Q6H PRN GT Nausea & Vomiting 11/09/18 05:00 12/09/18 04:59 Phenobarbital (PHENobarbital) 60 mg BID GT 11/09/18 09:00 12/09/18 08:59 11/14/18 17:50 Phenytoin (Dilantin) 100 mg Q8HR GT 11/09/18 06:00 12/09/18 05:59 11/15/18 06:28 Piperacillin Sod/ Tazobactam Sod 3.375 gm/Sodium Chloride 110 ml @ 27.5 mls/hr Q8H IVPB 11/14/18 14:00 11/21/18 13:59 11/15/18 06:34 Polyethylene Glycol (Miralax) 17 gm DAILYPRN PRN GT Constipation 11/14/18 10:30 12/12/18 10:29 Sennosides (Senokot) 8.6 mg EVERY 12 HOURS GT 11/09/18 21:00 12/09/18 08:59 11/14/18 20:58 Valproic Acid (Depakene) 500 mg EVERY 8 HOURS GT 11/09/18 06:00 12/09/18 05:59 11/15/18 06:28 Vancomycin HCl (Vanco rx to dose) 1 ea DAILY PRN MISC Per rx protocol 11/10/18 16:45 12/10/18 16:44 Vancomycin HCl 750 mg/Sodium Chloride 275 ml @ 183.333 mls/hr Q12HR@0800,2000 IVPB 11/13/18 20:00 11/18/18 19:59 11/14/18 20:19 Last 24 Hour Vital Signs Date Time Temp Pulse Resp B/P (MAP) Pulse Ox O2 Delivery O2 Flow Rate FiO2 11/15/18 08:00 100.9 92 25 142/72 (95) 100 11/15/18 06:52 89 22 30 11/15/18 06:27 94 157/78 11/15/18 06:27 157/78 11/15/18 05:04 88 22 30 11/15/18 04:00 98.8 92 25 146/99 (115) 100 11/15/18 04:00 Mechanical Ventilator 11/15/18 04:00 30 11/15/18 03:25 89 11/15/18 03:24 88 22 30 11/15/18 01:10 82 19 30 11/15/18 00:00 99.2 80 17 121/57 (78) 97 11/15/18 00:00 Mechanical Ventilator 11/14/18 23:26 80 11/14/18 23:16 80 20 30 11/14/18 22:20 85 134/67 11/14/18 22:19 134/67 11/14/18 21:27 98.2 11/14/18 21:05 89 21 30 11/14/18 20:00 Mechanical Ventilator 11/14/18 20:00 100.9 91 21 130/76 (94) 99 11/14/18 20:00 30 11/14/18 19:34 90 11/14/18 19:26 92 22 30 11/14/18 17:10 84 23 30 11/14/18 17:01 82 11/14/18 16:00 99.8 88 19 141/75 (97) 100 11/14/18 16:00 30 11/14/18 16:00 Mechanical Ventilator 11/14/18 15:02 91 128/61 11/14/18 15:02 128/61 11/14/18 15:01 82 22 30 11/14/18 13:01 91 11/14/18 12:42 90 26 100 Mechanical Ventilator 30 90 26 30 11/14/18 12:00 Mechanical Ventilator 11/14/18 12:00 98.6 97 23 128/61 (83) 99 11/14/18 12:00 30 11/14/18 10:34 89 19 30 11/14/18 08:56 92 146/74 11/14/18 08:44 92 19 30 11/14/18 08:00 Mechanical Ventilator 11/14/18 08:00 30 11/14/18 08:00 99.6 86 20 146/74 (98) 100 11/14/18 07:45 84 11/14/18 07:05 86 22 100 Mechanical Ventilator 30 86 14 30 11/14/18 05:51 115/62 11/14/18 05:03 88 139/72 11/14/18 04:47 87 23 30 11/14/18 04:47 91 22 30 11/14/18 04:00 Mechanical Ventilator 11/14/18 04:00 30.0 11/14/18 04:00 98.2 88 20 138/79 (98) 100 11/14/18 04:00 90 11/14/18 02:42 87 23 30 11/14/18 00:58 87 22 98 Mechanical Ventilator 30 87 22 11/14/18 00:30 99.0 11/14/18 00:00 100.6 93 23 130/66 (87) 100 11/14/18 00:00 30.0 11/14/18 00:00 Mechanical Ventilator 11/13/18 23:27 89 11/13/18 22:46 92 25 30 11/13/18 22:00 109/60 11/13/18 21:03 96 145/76 11/13/18 20:50 99 22 30 11/13/18 20:00 97 11/13/18 20:00 30.0 11/13/18 20:00 98.4 96 22 143/76 (98) 100 11/13/18 20:00 Mechanical Ventilator 11/13/18 18:57 98 26 100 Mechanical Ventilator 30 98 26 11/13/18 17:20 93 21 30 11/13/18 16:00 Mechanical Ventilator 11/13/18 16:00 30.0 11/13/18 16:00 98.4 95 18 136/69 (91) 100 11/13/18 16:00 96 11/13/18 15:27 94 21 30 11/13/18 13:50 94 108/74 11/13/18 13:50 108/74 11/13/18 13:12 93 18 30 11/13/18 12:00 96 11/13/18 12:00 Mechanical Ventilator 11/13/18 12:00 30.0 11/13/18 11:51 97.9 92 18 117/61 (79) 100 11/13/18 11:28 93 21 30 11/13/18 09:15 91 23 30 11/13/18 09:00 Mechanical Ventilator Intake and Output 11/14/18 11/15/18 19:00 07:00 Intake Total 1142.50 ml 680 ml Output Total 800 ml 500 ml Balance 342.50 ml 180 ml Intake Free Water 80 ml IV Total 512.50 ml Tube Feeding 450 ml 600 ml Other 180 ml Output Urine Total 800 ml 500 ml # Bowel Movements 2 2 Labs Test 11/13/18 04:00 11/13/18 07:30 11/13/18 17:00 11/14/18 03:45 White Blood Count 16.0 K/UL (4.8-10.8) 15.6 K/UL (4.8-10.8) 14.6 K/UL (4.8-10.8) Red Blood Count 3.87 M/UL (4.20-5.40) 3.67 M/UL (4.20-5.40) 3.52 M/UL (4.20-5.40) Hemoglobin 9.7 G/DL (12.0-16.0) 9.2 G/DL (12.0-16.0) 8.9 G/DL (12.0-16.0) Hematocrit 30.4 % (37.0-47.0) 28.8 % (37.0-47.0) 27.3 % (37.0-47.0) Mean Corpuscular Volume 79 FL (80-99) 79 FL (80-99) 78 FL (80-99) Mean Corpuscular Hemoglobin 25.0 PG (27.0-31.0) 25.1 PG (27.0-31.0) 25.3 PG (27.0-31.0) Mean Corpuscular Hemoglobin Concent 31.9 G/DL (32.0-36.0) 31.9 G/DL (32.0-36.0) 32.5 G/DL (32.0-36.0) Red Cell Distribution Width 23.6 % (11.6-14.8) 23.7 % (11.6-14.8) 23.6 % (11.6-14.8) Platelet Count 468 K/UL (150-450) 451 K/UL (150-450) 483 K/UL (150-450) Mean Platelet Volume 5.7 FL (6.5-10.1) 5.5 FL (6.5-10.1) 5.7 FL (6.5-10.1) Neutrophils (%) (Auto) 82.3 % (45.0-75.0) 80.0 % (45.0-75.0) 82.5 % (45.0-75.0) Lymphocytes (%) (Auto) 9.5 % (20.0-45.0) 11.8 % (20.0-45.0) 9.1 % (20.0-45.0) Monocytes (%) (Auto) 5.6 % (1.0-10.0) 5.0 % (1.0-10.0) 5.4 % (1.0-10.0) Eosinophils (%) (Auto) 2.2 % (0.0-3.0) 2.4 % (0.0-3.0) 2.7 % (0.0-3.0) Basophils (%) (Auto) 0.4 % (0.0-2.0) 0.8 % (0.0-2.0) 0.3 % (0.0-2.0) Sodium Level 137 MMOL/L (136-145) 140 MMOL/L (136-145) Potassium Level 4.2 MMOL/L (3.5-5.1) 3.0 MMOL/L (3.5-5.1) Chloride Level 102 MMOL/L (98-107) 102 MMOL/L (98-107) Carbon Dioxide Level 30 MMOL/L (21-32) 30 MMOL/L (21-32) Anion Gap 5 mmol/L (5-15) 8 mmol/L (5-15) Blood Urea Nitrogen 15 mg/dL (7-18) 15 mg/dL (7-18) Creatinine 0.5 MG/DL (0.55-1.30) 0.4 MG/DL (0.55-1.30) Estimat Glomerular Filtration Rate mL/min (>60) mL/min (>60) Glucose Level 122 MG/DL (74-106) 117 MG/DL (74-106) Calcium Level 8.5 MG/DL (8.5-10.1) 8.2 MG/DL (8.5-10.1) Total Bilirubin 0.2 MG/DL (0.2-1.0) 0.2 MG/DL (0.2-1.0) Aspartate Amino Transf (AST/SGOT) 108 U/L (15-37) 87 U/L (15-37) Alanine Aminotransferase (ALT/SGPT) 108 U/L (12-78) 87 U/L (12-78) Alkaline Phosphatase 219 U/L (46-116) 191 U/L (46-116) Total Protein 6.3 G/DL (6.4-8.2) 6.0 G/DL (6.4-8.2) Albumin 1.4 G/DL (3.4-5.0) 1.2 G/DL (3.4-5.0) Globulin 4.9 g/dL 4.8 g/dL Albumin/Globulin Ratio 0.3 (1.0-2.7) 0.2 (1.0-2.7) Vancomycin Level Trough 9.0 ug/mL (5.0-12.0) Phosphorus Level 3.0 MG/DL (2.5-4.9) Magnesium Level 2.0 MG/DL (1.8-2.4) Test 11/14/18 11:40 11/15/18 04:30 White Blood Count 11.8 K/UL (4.8-10.8) Red Blood Count 3.64 M/UL (4.20-5.40) Hemoglobin 9.0 G/DL (12.0-16.0) Hematocrit 28.4 % (37.0-47.0) Mean Corpuscular Volume 78 FL (80-99) Mean Corpuscular Hemoglobin 24.8 PG (27.0-31.0) Mean Corpuscular Hemoglobin Concent 31.8 G/DL (32.0-36.0) Red Cell Distribution Width 23.0 % (11.6-14.8) Platelet Count 550 K/UL (150-450) Mean Platelet Volume 5.4 FL (6.5-10.1) Neutrophils (%) (Auto) 76.8 % (45.0-75.0) Lymphocytes (%) (Auto) 8.0 % (20.0-45.0) Monocytes (%) (Auto) 7.3 % (1.0-10.0) Eosinophils (%) (Auto) 7.3 % (0.0-3.0) Basophils (%) (Auto) 0.6 % (0.0-2.0) Sodium Level 141 MMOL/L (136-145) Potassium Level 3.6 MMOL/L (3.5-5.1) Chloride Level 103 MMOL/L (98-107) Carbon Dioxide Level 31 MMOL/L (21-32) Anion Gap 8 mmol/L (5-15) Blood Urea Nitrogen 14 mg/dL (7-18) Creatinine 0.4 MG/DL (0.55-1.30) Estimat Glomerular Filtration Rate mL/min (>60) Glucose Level 112 MG/DL (74-106) Calcium Level 8.4 MG/DL (8.5-10.1) Phosphorus Level 2.5 MG/DL (2.5-4.9) Magnesium Level 2.0 MG/DL (1.8-2.4) Total Bilirubin 0.2 MG/DL (0.2-1.0) Aspartate Amino Transf (AST/SGOT) 77 U/L (15-37) Alanine Aminotransferase (ALT/SGPT) 84 U/L (12-78) Alkaline Phosphatase 196 U/L (46-116) Total Protein 5.6 G/DL (6.4-8.2) Albumin 1.3 G/DL (3.4-5.0) Globulin 4.3 g/dL Albumin/Globulin Ratio 0.3 (1.0-2.7) Height (Feet): 5 Height (Inches): 8.00 Weight (Pounds): 205 Objective Physical Exam: Vitals: reviewed Gen: NAD HEENT: normocephalic, atraumatic Neck: non-tender, normal alignment ++ vent Respiratory: normal breath sounds bilaterally CV: normal peripheral pulses, rrr Abdomen: normal bowel sounds, soft, nontender +gtube Extremities: normal range of motion Yonathan Hernandez MD Nov 15, 2018 08:53
[2018-11-15] MEDS: Levemir Flexpen SUBQ SCH ×2 (09:00→20:18)
--- NOTE | 2018-11-15 09:07 | NUR ---
CASE MANAGEMENT: REVIEW 11/15/2018 SI:SEPSIS. T 100.9 HR 92 RR 25 B/P 142/72 SATS 100% ON MECH VENT FIO2 30 WBC 11.8 CR 0.4 GLU 112 CA 8.4 AST 77 ALT 84 ALP 196 IS: HYDRALAZINE GT Q8H DEPAKENE GT Q8H LASIX IV GT Q12H PEPCID GT Q12H VENOFER IV QHS KEPPRA GT Q12H VANCO IV Q24H ZOSYN IV Q8H CXR 11/14 Impression: Slightly worsening bilateral interstitial and airspace infiltrates versus edema SDU DCP: PATIENT TO BE DISCHARGED TO SNF ONCE MEDICALLY CLEARED PLAN OF CARE: IV ANTIBx CXR
[2018-11-15] MEDS: Sennosides 8.6mg tab GT SCH ×2 (09:08→20:13)
[2018-11-15] MEDS: Vancomycin 750mg/NS 275ml IVPB SCH ×4 (09:09→20:29)
[2018-11-15] MEDS: Furosemide 40mg tab GT SCH ×2 (09:09→20:13)
[2018-11-15] MEDS: PHENobarbital Elixir 30mg/7.5ml GT SCH ×2 (09:09→17:22)
[2018-11-15] MEDS: levETIRAcetam 500mg/5ml Liquid GT SCH ×2 (09:09→20:13)
[2018-11-15] MEDS: Acetaminophen 650mg/20.3ml GT PRN ×2 (09:15→17:21)
[2018-11-15] MEDS: Enoxaparin 40mg Inj SUBQ SCH (09:24)
--- NOTE | 2018-11-15 11:42 | General Progress Note ---
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 #Sepsis secondary to UTI, GPC Staph Epidermidis bacteremia, Line associated infection - the patient arrived to the Hospital with PICC ID consult appreciate Rec Pseudomonal pneumonia, UTI due to Enterococcus F., VRE colonized Remove PICC and place new line 11/13/18 Continue antibiotics per ID: Continue Zosyn and vancomycin, anti fungal added Repeat blood cultures 11/12/18 NGT noted PICC line with GN bacilli - final result pending Echo to eval for vegetation negative sputum cultures with pseudomonas Chest x-ray reviewed: Atelectasis # Transaminitis - trend lft's - GI consult, appreciate recs - ab us: reviewed - f/u hep panel #Elevated troponin secondary to sepsis versus ACS Cardiology consult, appreciate recs Medications per cardiology #Hypertension- improved Continue current medications, hydralazine as needed hypertension #Vent dependent Pulmonary consult, appreciate recs Vent management per pulmonary #Hypokalemia Replace, continue to monitor 3.1 today # Chronic tongue wound Supportive care On examination the patient has a sharp lower incisor present that is likely the culprit for the tongue laceration when she was intubated in the prior hospitalization at [facility] # History of mood disorder Seen by psychiatry and on Depakote. Level was checked # Seizure history - Discussed with Dr. Eric who knew the patient from [facility] and confirmed that she did have seizure activity and was on multiple AED regimen. - Will continue Depakote at the current dose # Disposition - SNF when cleared by ID Time of note may not reflect time of patient encounter Family updated at the beside today. Previous notes from Dr. Hylton and Dr. Melchor noted updates to the family as well. Pulsed reviewed: Full code Subjective Date patient seen: Nov 15, 2018 Time patient seen: 11:00 Allergies: Coded Allergies: Crayfish (Unverified Allergy, Unknown, 11/11/18) Uncoded Allergies: Crawfish (Allergy, Unknown, 11/09/18) All Systems: reviewed and negative except above Objective Last 24 Hour Vital Signs Date Time Temp Pulse Resp B/P (MAP) Pulse Ox O2 Delivery O2 Flow Rate FiO2 11/15/18 11:15 90 22 30 11/15/18 09:45 99.9 11/15/18 09:12 94 22 30 11/15/18 09:09 92 142/72 11/15/18 08:04 90 11/15/18 08:00 100.9 92 25 142/72 (95) 100 11/15/18 06:52 89 22 30 11/15/18 06:27 94 157/78 11/15/18 06:27 157/78 11/15/18 05:04 88 22 30 11/15/18 04:00 98.8 92 25 146/99 (115) 100 11/15/18 04:00 Mechanical Ventilator 11/15/18 04:00 30 11/15/18 03:25 89 11/15/18 03:24 88 22 30 11/15/18 01:10 82 19 30 11/15/18 00:00 99.2 80 17 121/57 (78) 97 11/15/18 00:00 Mechanical Ventilator 11/14/18 23:26 80 11/14/18 23:16 80 20 30 11/14/18 22:20 85 134/67 11/14/18 22:19 134/67 11/14/18 21:05 89 21 30 11/14/18 20:00 Mechanical Ventilator 11/14/18 20:00 100.9 91 21 130/76 (94) 99 11/14/18 20:00 30 11/14/18 19:34 90 11/14/18 19:26 92 22 30 11/14/18 17:10 84 23 30 11/14/18 17:01 82 11/14/18 16:00 99.8 88 19 141/75 (97) 100 11/14/18 16:00 30 11/14/18 16:00 Mechanical Ventilator 11/14/18 15:02 91 128/61 11/14/18 15:02 128/61 11/14/18 15:01 82 22 30 11/14/18 13:01 91 11/14/18 12:42 90 26 100 Mechanical Ventilator 30 90 26 30 11/14/18 12:00 Mechanical Ventilator 11/14/18 12:00 98.6 97 23 128/61 (83) 99 11/14/18 12:00 30 Intake and Output 11/14/18 11/15/18 19:00 07:00 Intake Total 1142.50 ml 680 ml Output Total 800 ml 500 ml Balance 342.50 ml 180 ml Intake Free Water 80 ml IV Total 512.50 ml Tube Feeding 450 ml 600 ml Other 180 ml Output Urine Total 800 ml 500 ml # Bowel Movements 2 2 Laboratory Tests 11/14/18 11:40: Stool Occult Blood [Pending] 11/15/18 04:30: White Blood Count 11.8H, Red Blood Count 3.64L, Hemoglobin 9.0L, Hematocrit 28.4L, Mean Corpuscular Volume 78L, Mean Corpuscular Hemoglobin 24.8L, Mean Corpuscular Hemoglobin Concent 31.8L, Red Cell Distribution Width 23.0H, Platelet Count 550H, Mean Platelet Volume 5.4L, Neutrophils (%) (Auto) 76.8H, Lymphocytes (%) (Auto) 8.0L, Monocytes (%) (Auto) 7.3, Eosinophils (%) (Auto) 7.3H, Basophils (%) (Auto) 0.6, Sodium Level 141, Potassium Level 3.6, Chloride Level 103, Carbon Dioxide Level 31, Anion Gap 8, Blood Urea Nitrogen 14, Creatinine 0.4L, Estimat Glomerular Filtration Rate , Glucose Level 112H, Calcium Level 8.4L, Phosphorus Level 2.5, Magnesium Level 2.0, Total Bilirubin 0.2, Aspartate Amino Transf (AST/SGOT) 77H, Alanine Aminotransferase (ALT/SGPT) 84H, Alkaline Phosphatase 196H, Total Protein 5.6L, Albumin 1.3L, Globulin 4.3, Albumin/Globulin Ratio 0.3L Height (Feet): 5 Height (Inches): 8.00 Weight (Pounds): 205 General Appearance: no apparent distress EENT: PERRL/EOMI Respiratory/Chest: chest wall non-tender, lungs clear Abdomen: normal bowel sounds Neurologic: seed potato arranger II-XII grossly normal Florinda Treviño MD Nov 15, 2018 11:42
--- NOTE | 2018-11-15 12:07 | Pulmonology Progress Note ---
Assessment/Plan Problems: (1) Ventilator dependence (2) Tracheostomy dependence (3) UTI (urinary tract infection) (4) Fever (5) Anoxic brain damage (6) Tongue abnormality (7) Seizure disorder (8) Colon adenocarcinoma (9) HTN (hypertension) (10) Sepsis (11) Diabetes (12) Abnormal LFTs (13) Protein calorie malnutrition (14) Gastrostomy in place (15) half-way resident (16) Decubitus skin ulcer Assessment/Plan Continue ventilatory support/settings reviewed Titrate down FiO2 to keep SaO2 > 90% Optimize pulmonary hygiene/mobilize as tolerated RTC and PRN HHN's Abx per ID, F/U Cx's F/U cards recs Monitor volumes and renal function DVT Px: LMWH OMFS eval FC, continue to discuss GOC Wound care Subjective Allergies: Coded Allergies: Crayfish (Unverified Allergy, Unknown, 11/11/18) Uncoded Allergies: Crawfish (Allergy, Unknown, 11/09/18) Subjective Tm 100 VSS stable on vent no sig secretions no distress Cath tip Cx with GNB BCx with S hominis Urine with enterococcus PsA in sputum Tooth impacted in tongue Objective Last 24 Hour Vital Signs Date Time Temp Pulse Resp B/P (MAP) Pulse Ox O2 Delivery O2 Flow Rate FiO2 11/15/18 11:15 90 22 30 11/15/18 09:45 99.9 11/15/18 09:12 94 22 30 11/15/18 09:09 92 142/72 11/15/18 08:04 90 11/15/18 08:00 100.9 92 25 142/72 (95) 100 11/15/18 06:52 89 22 30 11/15/18 06:27 94 157/78 11/15/18 06:27 157/78 11/15/18 05:04 88 22 30 11/15/18 04:00 98.8 92 25 146/99 (115) 100 11/15/18 04:00 Mechanical Ventilator 11/15/18 04:00 30 11/15/18 03:25 89 11/15/18 03:24 88 22 30 11/15/18 01:10 82 19 30 11/15/18 00:00 99.2 80 17 121/57 (78) 97 11/15/18 00:00 Mechanical Ventilator 8/27/19 23:26 80 11/14/18 23:16 80 20 30 11/14/18 22:20 85 134/67 11/14/18 22:19 134/67 11/14/18 21:05 89 21 30 11/14/18 20:00 Mechanical Ventilator 11/14/18 20:00 100.9 91 21 130/76 (94) 99 11/14/18 20:00 30 11/14/18 19:34 90 11/14/18 19:26 92 22 30 11/14/18 17:10 84 23 30 11/14/18 17:01 82 11/14/18 16:00 99.8 88 19 141/75 (97) 100 11/14/18 16:00 30 11/14/18 16:00 Mechanical Ventilator 11/14/18 15:02 91 128/61 11/14/18 15:02 128/61 11/14/18 15:01 82 22 30 11/14/18 13:01 91 11/14/18 12:42 90 26 100 Mechanical Ventilator 30 90 26 30 Intake and Output 11/14/18 11/15/18 19:00 07:00 Intake Total 1142.50 ml 680 ml Output Total 800 ml 500 ml Balance 342.50 ml 180 ml Intake Free Water 80 ml IV Total 512.50 ml Tube Feeding 450 ml 600 ml Other 180 ml Output Urine Total 800 ml 500 ml # Bowel Movements 2 2 General Appearance: no acute distress, cachetic, other - non-verbal HEENT: normocephalic, atraumatic, anicteric, mucous membranes moist, status post trach, other - tooth impacted in tongue + lip and tongue edema Respiratory/Chest: crackles/rales Cardiovascular: normal peripheral pulses, normal rate, regular rhythm Abdomen: normal bowel sounds, soft, non tender, no organomegaly, non distended , no mass, other - GT Extremities: no cyanosis, no clubbing, no edema, other - contracted Microbiology Date/Time Source Procedure Growth Status 11/12/18 17:45 Blood Blood Culture - Final Staphylococcus Haemolyticus Complete 11/12/18 15:30 Blood Blood Culture - Preliminary NO GROWTH AFTER 48 HOURS Resulted 11/13/18 21:55 Catheter Site Catheter Tip Culture - Preliminary Gram Negative Bacillus 1 Resulted Laboratory Tests 11/15/18 04:30: White Blood Count 11.8H, Red Blood Count 3.64L, Hemoglobin 9.0L, Hematocrit 28.4L, Mean Corpuscular Volume 78L, Mean Corpuscular Hemoglobin 24.8L, Mean Corpuscular Hemoglobin Concent 31.8L, Red Cell Distribution Width 23.0H, Platelet Count 550H, Mean Platelet Volume 5.4L, Neutrophils (%) (Auto) 76.8H, Lymphocytes (%) (Auto) 8.0L, Monocytes (%) (Auto) 7.3, Eosinophils (%) (Auto) 7.3H, Basophils (%) (Auto) 0.6, Sodium Level 141, Potassium Level 3.6, Chloride Level 103, Carbon Dioxide Level 31, Anion Gap 8, Blood Urea Nitrogen 14, Creatinine 0.4L, Estimat Glomerular Filtration Rate , Glucose Level 112H, Calcium Level 8.4L, Phosphorus Level 2.5, Magnesium Level 2.0, Total Bilirubin 0.2, Aspartate Amino Transf (AST/SGOT) 77H, Alanine Aminotransferase (ALT/SGPT) 84H, Alkaline Phosphatase 196H, Total Protein 5.6L, Albumin 1.3L, Globulin 4.3, Albumin/Globulin Ratio 0.3L Current Medications Medications (Trade) Dose Ordered Sig/Lupe Route PRN Reason Start Time Stop Time Status Last Admin Dose Admin Acetaminophen (Tylenol) 650 mg Q4H PRN GT Mild Pain/Temp > 100.5 11/09/18 05:00 12/09/18 04:59 11/15/18 09:15 Amlodipine Besylate (Norvasc) 10 mg DAILY GT 11/09/18 09:00 12/09/18 08:59 11/15/18 09:09 Bisacodyl (Dulcolax) 10 mg DAILY PRN RECTAL Constipation 11/09/18 05:00 12/09/18 04:59 Calcium Carbonate (Tums) 500 mg EVERY 8 HOURS GT 11/09/18 14:00 12/09/18 08:59 11/15/18 06:27 Chlorhexidine Gluconate (Corazon-Hex 2%) 1 applic DAILY@1999 TOPIC 11/12/18 20:00 12/12/18 19:59 11/14/18 20:19 Dextrose (Dextrose 50%) 25 ml Q30M PRN IV Hypoglycemia 11/09/18 04:45 12/09/18 04:44 Dextrose (Dextrose 50%) 50 ml Q30M PRN IV Hypoglycemia 11/09/18 04:45 12/09/18 04:44 11/09/18 09:09 Enoxaparin Sodium (Lovenox) 40 mg DAILY SUBQ 11/09/18 09:00 12/09/18 08:59 11/15/18 09:24 Famotidine (Pepcid) 20 mg EVERY 12 HOURS GT 11/09/18 21:00 12/09/18 08:59 11/15/18 09:09 Fluconazole/ Sodium Chloride 100 ml @ 100 mls/hr Q24H IV 11/13/18 13:00 11/20/18 12:59 11/14/18 13:32 Furosemide (Lasix) 40 mg EVERY 12 HOURS GT 11/09/18 09:00 12/09/18 08:59 11/15/18 09:09 Hydralazine HCl (Apresoline) 5 mg EVERY 8 HOURS GT 11/09/18 06:00 12/09/18 05:59 11/15/18 06:27 Insulin Aspart (NovoLOG) Q6HR SUBQ 11/09/18 06:00 12/09/18 05:59 11/15/18 00:20 Insulin Detemir (Levemir) 6 units EVERY 12 HOURS SUBQ 11/14/18 21:00 12/09/18 08:59 Iron Sucrose 100 mg/Sodium Chloride 60 ml @ 240 mls/hr BEDTIME IVPB 11/11/18 21:00 11/15/18 21:14 11/14/18 20:59 Labetalol HCl (Normodyne) 200 mg Q8HR GT 11/09/18 06:00 12/09/18 05:59 11/15/18 06:27 Levetiracetam (Keppra) 1,500 mg Q12HR GT 11/09/18 09:00 12/09/18 08:59 11/15/18 09:09 Lorazepam (Ativan 2mg/ml 1ml) 2 mg DAILY PRN IVP For Seizures 11/09/18 05:00 11/16/18 04:59 Magnesium Hydroxide (Mom) 30 ml DAILY PRN GT Constipation 11/09/18 05:00 12/09/18 04:59 Magnesium Oxide (Mag-Ox 400mg) 400 mg EVERY 8 HOURS GT 11/09/18 14:00 12/09/18 08:59 11/15/18 06:27 Ondansetron HCl (Zofran) 4 mg Q6H PRN GT Nausea & Vomiting 11/09/18 05:00 12/09/18 04:59 Phenobarbital (PHENobarbital) 60 mg BID GT 11/09/18 09:00 12/09/18 08:59 11/15/18 09:09 Phenytoin (Dilantin) 100 mg Q8HR GT 11/09/18 06:00 12/09/18 05:59 11/15/18 06:28 Piperacillin Sod/ Tazobactam Sod 3.375 gm/Sodium Chloride 110 ml @ 27.5 mls/hr Q8H IVPB 11/14/18 14:00 11/21/18 13:59 11/15/18 06:34 Polyethylene Glycol (Miralax) 17 gm DAILYPRN PRN GT Constipation 11/14/18 10:30 12/12/18 10:29 Sennosides (Senokot) 8.6 mg EVERY 12 HOURS GT 11/09/18 21:00 12/09/18 08:59 11/15/18 09:08 Valproic Acid (Depakene) 500 mg EVERY 8 HOURS GT 11/09/18 06:00 12/09/18 05:59 11/15/18 06:28 Vancomycin HCl (Vanco rx to dose) 1 ea DAILY PRN MISC Per rx protocol 11/10/18 16:45 12/10/18 16:44 Vancomycin HCl 750 mg/Sodium Chloride 275 ml @ 183.333 mls/hr Q12HR@0800,2000 IVPB 11/13/18 20:00 11/18/18 19:59 11/15/18 09:09 Balbir Dejesus MD Nov 15, 2018 12:07
--- NOTE | 2018-11-15 16:09 | Surgery Progress Note ---
Surgery Progress Note Subjective Additional Comments no acute events exam unchanged on vent support labs noted Objective Last 24 Hour Vital Signs Date Time Temp Pulse Resp B/P (MAP) Pulse Ox O2 Delivery O2 Flow Rate FiO2 11/15/18 15:24 143/63 11/15/18 15:23 100 143/63 11/15/18 14:51 100 22 30 11/15/18 13:24 95 23 30 11/15/18 12:00 99.8 90 20 143/63 (89) 100 11/15/18 12:00 30 11/15/18 12:00 Mechanical Ventilator 11/15/18 11:42 91 11/15/18 11:15 90 22 30 11/15/18 09:45 99.9 11/15/18 09:12 94 22 30 11/15/18 09:09 92 142/72 11/15/18 08:04 90 11/15/18 08:00 100.9 92 25 142/72 (95) 100 11/15/18 08:00 Mechanical Ventilator 11/15/18 08:00 30 11/15/18 06:52 89 22 30 11/15/18 06:27 94 157/78 11/15/18 06:27 157/78 11/15/18 05:04 88 22 30 11/15/18 04:00 98.8 92 25 146/99 (115) 100 11/15/18 04:00 Mechanical Ventilator 11/15/18 04:00 30 11/15/18 03:25 89 11/15/18 03:24 88 22 30 11/15/18 01:10 82 19 30 11/15/18 00:00 99.2 80 17 121/57 (78) 97 11/15/18 00:00 Mechanical Ventilator 11/14/18 23:26 80 11/14/18 23:16 80 20 30 11/14/18 22:20 85 134/67 11/14/18 22:19 134/67 11/14/18 21:05 89 21 30 11/14/18 20:00 Mechanical Ventilator 11/14/18 20:00 100.9 91 21 130/76 (94) 99 11/14/18 20:00 30 11/14/18 19:34 90 11/14/18 19:26 92 22 30 11/14/18 17:10 84 23 30 11/14/18 17:01 82 I&O Intake and Output 11/14/18 11/15/18 18:59 06:59 Intake Total 1065.00 ml 707.5 ml Output Total 800 ml 500 ml Balance 265.00 ml 207.5 ml Intake Free Water 80 ml IV Total 485.00 ml 27.5 ml Tube Feeding 400 ml 600 ml Other 180 ml Output Urine Total 800 ml 500 ml # Bowel Movements 2 2 Dressing: saturated Wound: other Drains: other Cardiovascular: RSR Respiratory: decreased breath sounds Abdomen: soft, present bowel sounds Extremities: no cyanosis Laboratory Tests Test 11/15/18 04:30 White Blood Count 11.8 K/UL (4.8-10.8) H Red Blood Count 3.64 M/UL (4.20-5.40) L Hemoglobin 9.0 G/DL (12.0-16.0) L Hematocrit 28.4 % (37.0-47.0) L Mean Corpuscular Volume 78 FL (80-99) L Mean Corpuscular Hemoglobin 24.8 PG (27.0-31.0) L Mean Corpuscular Hemoglobin Concent 31.8 G/DL (32.0-36.0) L Red Cell Distribution Width 23.0 % (11.6-14.8) H Platelet Count 550 K/UL (150-450) H Mean Platelet Volume 5.4 FL (6.5-10.1) L Neutrophils (%) (Auto) 76.8 % (45.0-75.0) H Lymphocytes (%) (Auto) 8.0 % (20.0-45.0) L Monocytes (%) (Auto) 7.3 % (1.0-10.0) Eosinophils (%) (Auto) 7.3 % (0.0-3.0) H Basophils (%) (Auto) 0.6 % (0.0-2.0) Sodium Level 141 MMOL/L (136-145) Potassium Level 3.6 MMOL/L (3.5-5.1) Chloride Level 103 MMOL/L (98-107) Carbon Dioxide Level 31 MMOL/L (21-32) Anion Gap 8 mmol/L (5-15) Blood Urea Nitrogen 14 mg/dL (7-18) Creatinine 0.4 MG/DL (0.55-1.30) L Estimat Glomerular Filtration Rate mL/min (>60) Glucose Level 112 MG/DL (74-106) H Calcium Level 8.4 MG/DL (8.5-10.1) L Phosphorus Level 2.5 MG/DL (2.5-4.9) Magnesium Level 2.0 MG/DL (1.8-2.4) Total Bilirubin 0.2 MG/DL (0.2-1.0) Aspartate Amino Transf (AST/SGOT) 77 U/L (15-37) H Alanine Aminotransferase (ALT/SGPT) 84 U/L (12-78) H Alkaline Phosphatase 196 U/L (46-116) H Total Protein 5.6 G/DL (6.4-8.2) L Albumin 1.3 G/DL (3.4-5.0) L Globulin 4.3 g/dL Albumin/Globulin Ratio 0.3 (1.0-2.7) L Plan Problems: (1) Fever (2) Tongue abnormality Assessment & Plan: patients jaw clenched closed and tongue has been stuck for some time. tongue split from middle teeth and now in two. edema and unable to reduce keep tongue moist. apply lube jelly prn dryness. will monitor do not recommend surgical intervention for this current medical condition (3) Tracheostomy dependence (4) Sepsis Assessment & Plan: gb no stones 6mm polyp no acute surgical intervention planned trend labs DAILY ESTIMATED NEEDS: Needs based on Critical care, sepsis, wound 60kg adj 22-30 kcals/kg [id number] total kcals 1.25-2 g protein/kg 75-120 g total protein Fluid per MD, on lasix NUTRITION DIAGNOSIS: * Swallowing difficulty r/t respiratory status as evidenced by pt is vent dep via trach and PEG dep. * Increased kcal and pro needs r/t wound healing and sepsis as evidenced by pt w/ sacral and R heel wounds, febrile (Tmax 101.5). CURRENT TF: Jevity 1.2 @50 ml/hr x16 hrs ENTERAL NUTRITION RECOMMENDATIONS: Glucerna 1.2 @65ml/hr x18 hrs + Prosource x1 daily to provide 1170ml, 1404 kcal, 70g pro + 11g pro, 942 free H2O - REC TF CHANGE AND INCREASE TO BETTER MEET EST NEEDS - TF TO BE HELD FOR ONE HR BEFORE AND AFTER DILANTIN MEDS - START @20ML/HR, ADVANCE TOLERATED 15ML/HR Q4-6 HRS TO GOAL - FLUSH PER , HOB OVRE 30 DEGREES ADDITIONAL RECOMMENDATIONS: 1) CALIBRATED BED SCALE W/ ADDED P200 MATTRESS + PUMP 2) ON LASIX, MONITOR LYTES AND HYDRATION STATUS DAILY 3) TF TO RUN A MAX OF 18 HRS/DAY W/ DILANTIN TID PER PHARMACY 4) REC TF CHANGE TO CARB CONTROL FORMULA 5) WOUND CARE: ADD CHAYITO BID + VIT C 250MG DAILY (5) Fever (6) Decubitus skin ulcer Assessment & Plan: Pt presented on admission with full thickness sacral pressure injury.Base of wound is 20% necrotic , 80% slough. borders are macerated . Mild odor noted. (L)8.4cm x (W) 6.5cm. Periwound skin tone is darker without erythema,induration or elevation in skin temp. Both heels are non -blanchable and both are fluctuant when palpated. Tx.Plan: Clean wound with saline. Apply Therahoney. Aply Moisture Barrier paste periwound. Cover with Optifoam drsg. Change every 3 days and prn. Apply Cavilon Skin BArrier to both heels. Cover each heel with Optifoam drsg. Change every 7 days and prn. APM/DEIRDRE mattress overlay. Reposition at least every 2hours or as tolerated. Off-load heels with pillow. will follow with recs thank you Preet Hylton Nov 15, 2018 16:09
--- NOTE | 2018-11-15 19:09 | NUR ---
HAND-OFF: Report given to Steven Gunn RN.
--- NOTE | 2018-11-15 19:10 | NUR ---
NURSE NOTES: Received report from Jani RN, pt. in bed obtunded, opens eyes- non-verbal, youth nutritional monitor on, no signs or symptoms of acute cardiac or respiratory distress noted, bed in lowest position and call light within easy reach, pt. appears to be resting comfortably- comfort measures provided, bed alarm on, side rails x's3 and safety brakes engaged, pt. appears to be tolerating current vent settings well- AC 14, TV 375, Fio2 @30% and peep 5- no distress noted, Side rails padded for seizure precautions- no seizure activity noted upon assessment, Jevity 1.2 running via G tube at 50cc/hr- no residual noted, pt. is clean and dry, KAITLYNN PICC intact and patent- TKO, Safety measures continued, will continue with plan of care.
[2018-11-15] MEDS: Iron Sucrose 100 MG in NS 55 ML IVPB SCH (20:12)
[2018-11-15] MEDS: Dyna-Hex 2% Top Sol 2oz TOPIC SCH (20:13)
[2018-11-15] MEDS ORDERED: Tubing IV Secondary IV ONE (20:39)
[2018-11-15] MEDS ORDERED: NS 275ml ONE (20:39)
[2018-11-16] VITALS (7 sets, daily range): BP systolic 122–139; BP diastolic 54–72
[2018-11-16] MEDS: Acetaminophen 650mg/20.3ml GT PRN (03:44)
[2018-11-16 05:10] LABS: BASOPHILS % (AUTO) 1.1 % (0.0-2.0); EOSINOPHILS % (AUTO) 5.7 % (0.0-3.0); HEMATOCRIT 28.2 % (37.0-47.0); HEMOGLOBIN 8.9 G/DL (12.0-16.0); LYMPHOCYTES % (AUTO) 8.3 % (20.0-45.0); MEAN CORPUSCULAR VOLUME 80 FL (80-99); MONOCYTES % (AUTO) 6.2 % (1.0-10.0); NEUTROPHILS % (AUTO) 78.6 % (45.0-75.0); PLATELET COUNT 537 K/UL (150-450); RED BLOOD COUNT 3.52 M/UL (4.20-5.40); RED CELL DISTRIBUTION WIDTH 23.7 % (11.6-14.8)
[2018-11-16] MEDS: NovoLOG Insulin Flexpen SUBQ SCH ×4 (05:12→23:46)
[2018-11-16] MEDS: Phenytoin Susp 100mg/4ml GT SCH ×3 (05:14→21:23)
[2018-11-16] MEDS: Tums 500mg GT SCH ×3 (05:14→21:23)
[2018-11-16] MEDS: Piperacillin/Tazobactam 3.375 GM in NS 110 ML IVPB SCH (05:14)
[2018-11-16] MEDS: Magnesium Oxide 400mg tab GT SCH ×3 (05:14→21:22)
[2018-11-16] MEDS: Valproic Acid 250mg/5ml Liquid GT SCH ×3 (05:16→21:22)
[2018-11-16] MEDS: Labetalol 200mg tab GT SCH ×3 (05:17→21:24)
[2018-11-16] MEDS: HydrALAZINE 10mg Tab GT SCH ×3 (06:00→21:24)
[2018-11-16 06:07] LABS: ALANINE AMINOTRANSFERASE 84 U/L (12-78); ALBUMIN 1.1 G/DL (3.4-5.0); ALBUMIN/GLOBULIN RATIO 0.3 (1.0-2.7); ALKALINE PHOSPHATASE 205 U/L (46-116); ANION GAP 8 mmol/L (5-15); ASPARTATE AMINO TRANSFERASE 88 U/L (15-37); BILIRUBIN,TOTAL 0.2 MG/DL (0.2-1.0); BLOOD UREA NITROGEN 13 mg/dL (7-18); CALCIUM 8.1 MG/DL (8.5-10.1); CARBON DIOXIDE 31 MMOL/L (21-32); CHLORIDE 102 MMOL/L (98-107); CREATININE 0.4 MG/DL (0.55-1.30); POTASSIUM 3.4 MMOL/L (3.5-5.1); SODIUM 140 MMOL/L (136-145)
--- NOTE | 2018-11-16 07:11 | NUR ---
HAND-OFF: Report given to Alessia RN, pt. remains stable and no signs of distress noted. Aware to f/u on abnormal labs.
--- NOTE | 2018-11-16 07:51 | NUR ---
RESPIRATORY NOTE: received vent dependent pt with shiley [address] secured via trach tie[address] pt on current vent orders with in no apparent rest distress. alarms are on and audible with ambubag at bedside and back up trach. will cont to monitor.
--- NOTE | 2018-11-16 07:52 | NUR ---
NURSE NOTES: Received patient in bed. Vent dependent. With GTF running. Ospina cath inplace. Right upper PICC noted. Contact isolation observed. Will continue plan of care.
[2018-11-16] MEDS: PHENobarbital Elixir 30mg/7.5ml GT SCH ×2 (08:21→17:28)
[2018-11-16] MEDS: Vancomycin 750mg/NS 275ml IVPB SCH ×2 (08:21)
[2018-11-16] MEDS: levETIRAcetam 500mg/5ml Liquid GT SCH ×2 (08:22→20:29)
[2018-11-16] MEDS: Furosemide 40mg tab GT SCH ×2 (08:22→20:29)
[2018-11-16] MEDS: Sennosides 8.6mg tab GT SCH ×2 (08:22→20:30)
--- NOTE | 2018-11-16 08:27 | NUR ---
CASE MANAGEMENT: REVIEW 11/16/2018 SI:SEPSIS. T 99 HR 83 RR 83 B/P 129/65 SATS 100% ON MECH VENT FIO2 30 WBC 11 K 3.4 CR 0.4 CA 8.1 AST 88 ALT 84 ALP 205 IS: HYDRALAZINE GT Q8H DEPAKENE GT Q8H LASIX IV GT Q12H PEPCID GT Q12H VENOFER IV QHS KEPPRA GT Q12H VANCO IV Q24H ZOSYN IV Q8H SDU DCP: PATIENT TO BE DISCHARGED TO SNF ONCE MEDICALLY CLEARED PLAN OF CARE: IV ANTIBx CXR
--- NOTE | 2018-11-16 08:53 | NUR ---
RADIOLOGY DEPT., CHEST X-RAY DONE.-P.DYE
[2018-11-16] MEDS: Levemir Flexpen SUBQ SCH ×2 (09:00→20:27)
[2018-11-16] MEDS: Enoxaparin 40mg Inj SUBQ SCH (09:00)
--- NOTE | 2018-11-16 09:18 | Pulmonology Progress Note ---
Assessment/Plan Problems: (1) Ventilator dependence (2) Tracheostomy dependence (3) UTI (urinary tract infection) (4) Fever (5) Anoxic brain damage (6) Tongue abnormality (7) Seizure disorder (8) Colon adenocarcinoma (9) HTN (hypertension) (10) Sepsis (11) Diabetes (12) Abnormal LFTs (13) Protein calorie malnutrition (14) Gastrostomy in place (15) custodial resident (16) Decubitus skin ulcer Assessment/Plan Continue ventilatory support/settings reviewed Titrate down FiO2 to keep SaO2 > 90% Optimize pulmonary hygiene/mobilize as tolerated RTC and PRN HHN's Abx per ID, F/U Cx's F/U cards recs Monitor volumes and renal function DVT Px: LMWH OMFS eval FC, continue to discuss GOC Wound care Subjective Allergies: Coded Allergies: Crayfish (Unverified Allergy, Unknown, 11/11/18) Uncoded Allergies: Crawfish (Allergy, Unknown, 11/09/18) Subjective AFVSS stable on vent no sig secretions no distress Objective Last 24 Hour Vital Signs Date Time Temp Pulse Resp B/P (MAP) Pulse Ox O2 Delivery O2 Flow Rate FiO2 11/16/18 08:55 84 23 30 11/16/18 08:23 83 129/65 11/16/18 08:00 Mechanical Ventilator 11/16/18 08:00 99.0 83 20 129/65 (86) 100 11/16/18 08:00 30 11/16/18 07:48 82 20 30 11/16/18 06:00 112/61 11/16/18 05:29 89 20 30 11/16/18 05:17 91 123/54 11/16/18 04:14 99.8 11/16/18 04:14 99.8 11/16/18 04:00 91 11/16/18 04:00 Mechanical Ventilator 11/16/18 04:00 30 11/16/18 03:30 101.8 91 23 123/54 (77) 100 11/16/18 03:10 87 19 30 11/16/18 01:08 88 22 30 11/16/18 00:00 99.1 88 23 139/58 (85) 98 11/16/18 00:00 Mechanical Ventilator 11/16/18 00:00 30 11/16/18 00:00 85 11/15/18 23:09 85 23 30 11/15/18 22:00 113/50 11/15/18 21:27 84 20 98 Mechanical Ventilator 30 11/15/18 21:27 85 19 30 11/15/18 21:16 133/57 (82) 11/15/18 21:15 88 133/57 11/15/18 20:00 Mechanical Ventilator 11/15/18 20:00 30 11/15/18 20:00 92 11/15/18 20:00 98.2 91 21 100/50 (67) 98 11/15/18 18:58 92 23 30 11/15/18 17:27 107 23 30 11/15/18 17:00 100.7 100 24 145/81 (102) 100 11/15/18 16:00 30 11/15/18 16:00 Mechanical Ventilator 11/15/18 15:24 143/63 11/15/18 15:23 100 143/63 11/15/18 15:14 98 11/15/18 14:51 100 22 30 11/15/18 13:24 95 23 30 11/15/18 12:00 99.8 90 20 143/63 (89) 100 11/15/18 12:00 30 11/15/18 12:00 Mechanical Ventilator 11/15/18 11:42 91 11/15/18 11:15 90 22 30 Intake and Output 11/15/18 11/16/18 19:00 07:00 Intake Total 100 ml 1194.166 ml Output Total 400 ml 1000 ml Balance -300 ml 194.166 ml Intake Free Water 50 ml IV Total 744.166 ml Tube Feeding 100 ml 400 ml Output Urine Total 400 ml 1000 ml # Bowel Movements 2 General Appearance: no acute distress, cachetic, other - non verba' HEENT: status post trach, other - tongue and lip edema Respiratory/Chest: rhonchi Cardiovascular: normal peripheral pulses, normal rate, regular rhythm Abdomen: normal bowel sounds, soft, non tender, no organomegaly, non distended , other - GT Extremities: no cyanosis, no clubbing, no edema, other - contracted Microbiology Date/Time Source Procedure Growth Status 11/13/18 21:55 Catheter Site Catheter Tip Culture - Preliminary Gram Negative Bacillus 1 Resulted Laboratory Tests 11/15/18 19:15: Vancomycin Level Trough 15.9H 11/16/18 04:00: White Blood Count 11.0H, Red Blood Count 3.52L, Hemoglobin 8.9L, Hematocrit 28.2L, Mean Corpuscular Volume 80, Mean Corpuscular Hemoglobin 25.2L, Mean Corpuscular Hemoglobin Concent 31.5L, Red Cell Distribution Width 23.7H, Platelet Count 537H, Mean Platelet Volume 4.9L, Neutrophils (%) (Auto) 78.6H, Lymphocytes (%) (Auto) 8.3L, Monocytes (%) (Auto) 6.2, Eosinophils (%) (Auto) 5.7H, Basophils (%) (Auto) 1.1, Sodium Level 140, Potassium Level 3.4L, Chloride Level 102, Carbon Dioxide Level 31, Anion Gap 8, Blood Urea Nitrogen 13 , Creatinine 0.4L, Estimat Glomerular Filtration Rate , Glucose Level 105, Calcium Level 8.1L, Total Bilirubin 0.2, Aspartate Amino Transf (AST/SGOT) 88H, Alanine Aminotransferase (ALT/SGPT) 84H, Alkaline Phosphatase 205H, Total Protein 5.3L, Albumin 1.1L, Globulin 4.2, Albumin/Globulin Ratio 0.3L Current Medications Medications (Trade) Dose Ordered Sig/Lupe Route PRN Reason Start Time Stop Time Status Last Admin Dose Admin Acetaminophen (Tylenol) 650 mg Q4H PRN GT Mild Pain/Temp > 100.5 11/09/18 05:00 12/09/18 04:59 11/16/18 03:44 Amlodipine Besylate (Norvasc) 10 mg DAILY GT 11/09/18 09:00 12/09/18 08:59 11/16/18 08:23 Bisacodyl (Dulcolax) 10 mg DAILY PRN RECTAL Constipation 11/09/18 05:00 12/09/18 04:59 Calcium Carbonate (Tums) 500 mg EVERY 8 HOURS GT 11/09/18 14:00 12/09/18 08:59 11/16/18 05:14 Chlorhexidine Gluconate (Corazon-Hex 2%) 1 applic DAILY@1999 TOPIC 11/12/18 20:00 12/12/18 19:59 11/15/18 20:13 Dextrose (Dextrose 50%) 25 ml Q30M PRN IV Hypoglycemia 11/09/18 04:45 12/09/18 04:44 Dextrose (Dextrose 50%) 50 ml Q30M PRN IV Hypoglycemia 11/09/18 04:45 12/09/18 04:44 11/09/18 09:09 Enoxaparin Sodium (Lovenox) 40 mg DAILY SUBQ 11/09/18 09:00 12/09/18 08:59 11/15/18 09:24 Famotidine (Pepcid) 20 mg EVERY 12 HOURS GT 11/09/18 21:00 12/09/18 08:59 11/16/18 08:22 Fluconazole/ Sodium Chloride 100 ml @ 100 mls/hr Q24H IV 11/13/18 13:00 11/20/18 12:59 11/15/18 13:33 Furosemide (Lasix) 40 mg EVERY 12 HOURS GT 11/09/18 09:00 12/09/18 08:59 11/16/18 08:22 Hydralazine HCl (Apresoline) 5 mg EVERY 8 HOURS GT 11/09/18 06:00 12/09/18 05:59 11/15/18 15:24 Insulin Aspart (NovoLOG) Q6HR SUBQ 11/09/18 06:00 12/09/18 05:59 11/15/18 18:21 Insulin Detemir (Levemir) 6 units EVERY 12 HOURS SUBQ 11/14/18 21:00 12/09/18 08:59 Labetalol HCl (Normodyne) 200 mg Q8HR GT 11/09/18 06:00 12/09/18 05:59 11/16/18 05:17 Levetiracetam (Keppra) 1,500 mg Q12HR GT 11/09/18 09:00 12/09/18 08:59 11/16/18 08:22 Magnesium Hydroxide (Mom) 30 ml DAILY PRN GT Constipation 11/09/18 05:00 12/09/18 04:59 Magnesium Oxide (Mag-Ox 400mg) 400 mg EVERY 8 HOURS GT 11/09/18 14:00 12/09/18 08:59 11/16/18 05:14 Ondansetron HCl (Zofran) 4 mg Q6H PRN GT Nausea & Vomiting 11/09/18 05:00 12/09/18 04:59 Phenobarbital (PHENobarbital) 60 mg BID GT 11/09/18 09:00 12/09/18 08:59 11/16/18 08:21 Phenytoin (Dilantin) 100 mg Q8HR GT 11/09/18 06:00 12/09/18 05:59 11/16/18 05:14 Piperacillin Sod/ Tazobactam Sod 3.375 gm/Sodium Chloride 110 ml @ 27.5 mls/hr Q8H IVPB 11/14/18 14:00 11/21/18 13:59 11/16/18 05:14 Polyethylene Glycol (Miralax) 17 gm DAILYPRN PRN GT Constipation 11/14/18 10:30 12/12/18 10:29 Sennosides (Senokot) 8.6 mg EVERY 12 HOURS GT 11/09/18 21:00 12/09/18 08:59 11/16/18 08:22 Valproic Acid (Depakene) 500 mg EVERY 8 HOURS GT 11/09/18 06:00 12/09/18 05:59 11/16/18 05:16 Vancomycin HCl (Vanco rx to dose) 1 ea DAILY PRN MISC Per rx protocol 11/10/18 16:45 12/10/18 16:44 Vancomycin HCl 750 mg/Sodium Chloride 275 ml @ 183.333 mls/hr Q12HR@0800,2000 IVPB 11/13/18 20:00 11/18/18 19:59 11/16/18 08:21 Balbir Dejesus MD Nov 16, 2018 09:17
--- NOTE | 2018-11-16 09:22 | Diagnostic Imaging Report ---
Indication: Dyspnea Technique: One view of the chest Comparison: November 14, 2018 Findings: Bilateral interstitial edema persists. Tracheostomy, right arm PICC remain. The heart is enlarged. Impression: Bilateral interstitial edema, unchanged over 2 days Cardiomegaly
--- NOTE | 2018-11-16 10:30 | NUR ---
NURSE NOTES: Wound care nurse at bedside.Informed regarding the wound under the trach. Wound care nurse will apply dressing.
--- NOTE | 2018-11-16 10:51 | Hematology/Onc Progress Note ---
Assessment/Plan Assessment/Plan # Anemia of chronic disease due to underlying chronic medical issues, multifactorial --> Anemia workup has been reviewed and cw acd --> No evidence of hemolysis is noted, peripheral smear has been reviewed. --> Hgb goal >7. Transfuse prn. --> hgb trend 9.1-->8.9-->9-->8.9 --> Epogen or iron at this time is not particularly indicated --> Medications have been reviewed --> low threshold for gi evaluation in case has occult + --> bone marrow biopsy is not indicated given the other more likely causes # Leukocytosis iwth Sepsis secondary to UTI, GPC Staph Epidermidis bacteremia, Line associated infection - patient arrived to the Hospital with PICC --> as per ID consult appreciate Rec --> Continue antibiotics per ID: Continue Zosyn and vancomycin, anti fungal added --> imaging noted # Transaminitis --> trend lft's --> GI consult, apprec recs --> ab us: reviewed # Elevated troponin secondary to sepsis versus ACS --> as per Cardiology consult, appreciate recs --> now better # Hypertension- improved --> sbp goal <150 # Vent dependent --> as per Pulmonary recs # Hypokalemia The timing of this note does not necessarily reflect the time of the patient was seen. GREATLY APPRECIATE CONSULTATION. Subjective Allergies: Coded Allergies: Crayfish (Unverified Allergy, Unknown, 11/11/18) Uncoded Allergies: Crawfish (Allergy, Unknown, 11/09/18) Subjective 11/14: no events to report, labs relatively stable, hgb 8.9, on vent 11/15: no bleeding, no chills, labs reviewed, no major changes 11/16: cxr-->bilateral interstitial edema, vs stable, on abx, on vent, contact isolation Objective Objective Current Medications Medications (Trade) Dose Ordered Sig/Lupe Route PRN Reason Start Time Stop Time Status Last Admin Dose Admin Acetaminophen (Tylenol) 650 mg Q4H PRN GT Mild Pain/Temp > 100.5 11/09/18 05:00 12/09/18 04:59 11/16/18 03:44 Amlodipine Besylate (Norvasc) 10 mg DAILY GT 11/09/18 09:00 12/09/18 08:59 11/16/18 08:23 Bisacodyl (Dulcolax) 10 mg DAILY PRN RECTAL Constipation 11/09/18 05:00 12/09/18 04:59 Calcium Carbonate (Tums) 500 mg EVERY 8 HOURS GT 11/09/18 14:00 12/09/18 08:59 11/16/18 05:14 Chlorhexidine Gluconate (Corazon-Hex 2%) 1 applic DAILY@2000 TOPIC 11/12/18 20:00 12/12/18 19:59 11/15/18 20:13 Dextrose (Dextrose 50%) 25 ml Q30M PRN IV Hypoglycemia 11/09/18 04:45 12/09/18 04:44 Dextrose (Dextrose 50%) 50 ml Q30M PRN IV Hypoglycemia 11/09/18 04:45 12/09/18 04:44 11/09/18 09:09 Enoxaparin Sodium (Lovenox) 40 mg DAILY SUBQ 11/09/18 09:00 12/09/18 08:59 11/15/18 09:24 Famotidine (Pepcid) 20 mg EVERY 12 HOURS GT 11/09/18 21:00 12/09/18 08:59 11/16/18 08:22 Fluconazole/ Sodium Chloride 100 ml @ 100 mls/hr Q24H IV 11/13/18 13:00 11/20/18 12:59 11/15/18 13:33 Furosemide (Lasix) 40 mg EVERY 12 HOURS GT 11/09/18 09:00 12/09/18 08:59 11/16/18 08:22 Hydralazine HCl (Apresoline) 5 mg EVERY 8 HOURS GT 11/09/18 06:00 12/09/18 05:59 11/15/18 15:24 Insulin Aspart (NovoLOG) Q6HR SUBQ 11/09/18 06:00 12/09/18 05:59 11/15/18 18:21 Insulin Detemir (Levemir) 6 units EVERY 12 HOURS SUBQ 11/14/18 21:00 12/09/18 08:59 Labetalol HCl (Normodyne) 200 mg Q8HR GT 11/09/18 06:00 12/09/18 05:59 11/16/18 05:17 Levetiracetam (Keppra) 1,500 mg Q12HR GT 11/09/18 09:00 12/09/18 08:59 11/16/18 08:22 Magnesium Hydroxide (Mom) 30 ml DAILY PRN GT Constipation 11/09/18 05:00 12/09/18 04:59 Magnesium Oxide (Mag-Ox 400mg) 400 mg EVERY 8 HOURS GT 11/09/18 14:00 12/09/18 08:59 11/16/18 05:14 Ondansetron HCl (Zofran) 4 mg Q6H PRN GT Nausea & Vomiting 11/09/18 05:00 12/09/18 04:59 Phenobarbital (PHENobarbital) 60 mg BID GT 11/09/18 09:00 12/09/18 08:59 11/16/18 08:21 Phenytoin (Dilantin) 100 mg Q8HR GT 11/09/18 06:00 12/09/18 05:59 11/16/18 05:14 Piperacillin Sod/ Tazobactam Sod 3.375 gm/Sodium Chloride 110 ml @ 27.5 mls/hr Q8H IVPB 11/14/18 14:00 11/21/18 13:59 11/16/18 05:14 Polyethylene Glycol (Miralax) 17 gm DAILYPRN PRN GT Constipation 11/14/18 10:30 12/12/18 10:29 Sennosides (Senokot) 8.6 mg EVERY 12 HOURS GT 11/09/18 21:00 12/09/18 08:59 11/16/18 08:22 Valproic Acid (Depakene) 500 mg EVERY 8 HOURS GT 11/09/18 06:00 12/09/18 05:59 11/16/18 05:16 Vancomycin HCl (Vanco rx to dose) 1 ea DAILY PRN MISC Per rx protocol 11/10/18 16:45 12/10/18 16:44 Vancomycin HCl 750 mg/Sodium Chloride 275 ml @ 183.333 mls/hr Q12HR@0800,1999 IVPB 11/13/18 20:00 11/18/18 19:59 11/16/18 08:21 Last 24 Hour Vital Signs Date Time Temp Pulse Resp B/P (MAP) Pulse Ox O2 Delivery O2 Flow Rate FiO2 11/16/18 08:55 84 23 30 11/16/18 08:23 83 129/65 11/16/18 08:00 Mechanical Ventilator 11/16/18 08:00 99.0 83 20 129/65 (86) 100 11/16/18 08:00 30 11/16/18 07:48 82 20 30 11/16/18 07:36 83 11/16/18 06:00 112/61 11/16/18 05:29 89 20 30 11/16/18 05:17 91 123/54 11/16/18 04:14 99.8 11/16/18 04:14 99.8 11/16/18 04:00 91 11/16/18 04:00 Mechanical Ventilator 11/16/18 04:00 30 11/16/18 03:30 101.8 91 23 123/54 (77) 100 11/16/18 03:10 87 19 30 11/16/18 01:08 88 22 30 11/16/18 00:00 99.1 88 23 139/58 (85) 98 11/16/18 00:00 Mechanical Ventilator 11/16/18 00:00 30 11/16/18 00:00 85 11/15/18 23:09 85 23 30 11/15/18 22:00 113/50 11/15/18 21:27 84 20 98 Mechanical Ventilator 30 11/15/18 21:27 85 19 30 11/15/18 21:16 133/57 (82) 11/15/18 21:15 88 133/57 11/15/18 20:00 Mechanical Ventilator 11/15/18 20:00 30 11/15/18 20:00 92 11/15/18 20:00 98.2 91 21 100/50 (67) 98 11/15/18 18:58 92 23 30 11/15/18 17:27 107 23 30 11/15/18 17:00 100.7 100 24 145/81 (102) 100 11/15/18 16:00 30 11/15/18 16:00 Mechanical Ventilator 11/15/18 15:24 143/63 11/15/18 15:23 100 143/63 11/15/18 15:14 98 11/15/18 14:51 100 22 30 11/15/18 13:24 95 23 30 11/15/18 12:00 99.8 90 20 143/63 (89) 100 8/28/19 12:00 30 11/15/18 12:00 Mechanical Ventilator 11/15/18 11:42 91 11/15/18 11:15 90 22 30 11/15/18 09:12 94 22 30 11/15/18 09:09 92 142/72 11/15/18 08:04 90 11/15/18 08:00 100.9 92 25 142/72 (95) 100 11/15/18 08:00 Mechanical Ventilator 11/15/18 08:00 30 11/15/18 06:52 89 22 30 11/15/18 06:27 94 157/78 11/15/18 06:27 157/78 11/15/18 05:04 88 22 30 11/15/18 04:00 98.8 92 25 146/99 (115) 100 11/15/18 04:00 Mechanical Ventilator 11/15/18 04:00 30 11/15/18 03:25 89 11/15/18 03:24 88 22 30 11/15/18 01:10 82 19 30 11/15/18 00:00 99.2 80 17 121/57 (78) 97 11/15/18 00:00 Mechanical Ventilator 11/14/18 23:26 80 11/14/18 23:16 80 20 30 11/14/18 22:20 85 134/67 11/14/18 22:19 134/67 11/14/18 21:05 89 21 30 11/14/18 20:00 Mechanical Ventilator 11/14/18 20:00 100.9 91 21 130/76 (94) 99 11/14/18 20:00 30 11/14/18 19:34 90 11/14/18 19:26 92 22 30 11/14/18 17:10 84 23 30 11/14/18 17:01 82 11/14/18 16:00 99.8 88 19 141/75 (97) 100 11/14/18 16:00 30 11/14/18 16:00 Mechanical Ventilator 11/14/18 15:02 91 128/61 11/14/18 15:02 128/61 11/14/18 15:01 82 22 30 11/14/18 13:01 91 11/14/18 12:42 90 26 100 Mechanical Ventilator 30 90 26 30 11/14/18 12:00 Mechanical Ventilator 11/14/18 12:00 98.6 97 23 128/61 (83) 99 11/14/18 12:00 30 Intake and Output 11/15/18 11/16/18 19:00 07:00 Intake Total 100 ml 1194.166 ml Output Total 400 ml 1000 ml Balance -300 ml 194.166 ml Intake Free Water 50 ml IV Total 744.166 ml Tube Feeding 100 ml 400 ml Output Urine Total 400 ml 1000 ml # Bowel Movements 2 Labs Test 11/13/18 17:00 11/14/18 03:45 11/14/18 11:40 11/15/18 04:30 Vancomycin Level Trough 9.0 ug/mL (5.0-12.0) White Blood Count 14.6 K/UL (4.8-10.8) 11.8 K/UL (4.8-10.8) Red Blood Count 3.52 M/UL (4.20-5.40) 3.64 M/UL (4.20-5.40) Hemoglobin 8.9 G/DL (12.0-16.0) 9.0 G/DL (12.0-16.0) Hematocrit 27.3 % (37.0-47.0) 28.4 % (37.0-47.0) Mean Corpuscular Volume 78 FL (80-99) 78 FL (80-99) Mean Corpuscular Hemoglobin 25.3 PG (27.0-31.0) 24.8 PG (27.0-31.0) Mean Corpuscular Hemoglobin Concent 32.5 G/DL (32.0-36.0) 31.8 G/DL (32.0-36.0) Red Cell Distribution Width 23.6 % (11.6-14.8) 23.0 % (11.6-14.8) Platelet Count 483 K/UL (150-450) 550 K/UL (150-450) Mean Platelet Volume 5.7 FL (6.5-10.1) 5.4 FL (6.5-10.1) Neutrophils (%) (Auto) 82.5 % (45.0-75.0) 76.8 % (45.0-75.0) Lymphocytes (%) (Auto) 9.1 % (20.0-45.0) 8.0 % (20.0-45.0) Monocytes (%) (Auto) 5.4 % (1.0-10.0) 7.3 % (1.0-10.0) Eosinophils (%) (Auto) 2.7 % (0.0-3.0) 7.3 % (0.0-3.0) Basophils (%) (Auto) 0.3 % (0.0-2.0) 0.6 % (0.0-2.0) Sodium Level 140 MMOL/L (136-145) 141 MMOL/L (136-145) Potassium Level 3.0 MMOL/L (3.5-5.1) 3.6 MMOL/L (3.5-5.1) Chloride Level 102 MMOL/L (98-107) 103 MMOL/L (98-107) Carbon Dioxide Level 30 MMOL/L (21-32) 31 MMOL/L (21-32) Anion Gap 8 mmol/L (5-15) 8 mmol/L (5-15) Blood Urea Nitrogen 15 mg/dL (7-18) 14 mg/dL (7-18) Creatinine 0.4 MG/DL (0.55-1.30) 0.4 MG/DL (0.55-1.30) Estimat Glomerular Filtration Rate mL/min (>60) mL/min (>60) Glucose Level 117 MG/DL (74-106) 112 MG/DL (74-106) Calcium Level 8.2 MG/DL (8.5-10.1) 8.4 MG/DL (8.5-10.1) Phosphorus Level 3.0 MG/DL (2.5-4.9) 2.5 MG/DL (2.5-4.9) Magnesium Level 2.0 MG/DL (1.8-2.4) 2.0 MG/DL (1.8-2.4) Total Bilirubin 0.2 MG/DL (0.2-1.0) 0.2 MG/DL (0.2-1.0) Aspartate Amino Transf (AST/SGOT) 87 U/L (15-37) 77 U/L (15-37) Alanine Aminotransferase (ALT/SGPT) 87 U/L (12-78) 84 U/L (12-78) Alkaline Phosphatase 191 U/L (46-116) 196 U/L (46-116) Total Protein 6.0 G/DL (6.4-8.2) 5.6 G/DL (6.4-8.2) Albumin 1.2 G/DL (3.4-5.0) 1.3 G/DL (3.4-5.0) Globulin 4.8 g/dL 4.3 g/dL Albumin/Globulin Ratio 0.2 (1.0-2.7) 0.3 (1.0-2.7) Stool Occult Blood Negative (NEGATIVE) Test 11/15/18 19:15 11/16/18 04:00 Vancomycin Level Trough 15.9 ug/mL (5.0-12.0) White Blood Count 11.0 K/UL (4.8-10.8) Red Blood Count 3.52 M/UL (4.20-5.40) Hemoglobin 8.9 G/DL (12.0-16.0) Hematocrit 28.2 % (37.0-47.0) Mean Corpuscular Volume 80 FL (80-99) Mean Corpuscular Hemoglobin 25.2 PG (27.0-31.0) Mean Corpuscular Hemoglobin Concent 31.5 G/DL (32.0-36.0) Red Cell Distribution Width 23.7 % (11.6-14.8) Platelet Count 537 K/UL (150-450) Mean Platelet Volume 4.9 FL (6.5-10.1) Neutrophils (%) (Auto) 78.6 % (45.0-75.0) Lymphocytes (%) (Auto) 8.3 % (20.0-45.0) Monocytes (%) (Auto) 6.2 % (1.0-10.0) Eosinophils (%) (Auto) 5.7 % (0.0-3.0) Basophils (%) (Auto) 1.1 % (0.0-2.0) Sodium Level 140 MMOL/L (136-145) Potassium Level 3.4 MMOL/L (3.5-5.1) Chloride Level 102 MMOL/L (98-107) Carbon Dioxide Level 31 MMOL/L (21-32) Anion Gap 8 mmol/L (5-15) Blood Urea Nitrogen 13 mg/dL (7-18) Creatinine 0.4 MG/DL (0.55-1.30) Estimat Glomerular Filtration Rate mL/min (>60) Glucose Level 105 MG/DL (74-106) Calcium Level 8.1 MG/DL (8.5-10.1) Total Bilirubin 0.2 MG/DL (0.2-1.0) Aspartate Amino Transf (AST/SGOT) 88 U/L (15-37) Alanine Aminotransferase (ALT/SGPT) 84 U/L (12-78) Alkaline Phosphatase 205 U/L (46-116) Total Protein 5.3 G/DL (6.4-8.2) Albumin 1.1 G/DL (3.4-5.0) Globulin 4.2 g/dL Albumin/Globulin Ratio 0.3 (1.0-2.7) Height (Feet): 5 Height (Inches): 8.00 Weight (Pounds): 205 Objective Physical Exam: Vitals: reviewed Gen: NAD HEENT: normocephalic, atraumatic Neck: non-tender, normal alignment ++ vent Respiratory: normal breath sounds bilaterally CV: normal peripheral pulses, rrr Abdomen: normal bowel sounds, soft, nontender +gtube Extremities: normal range of motion Yonathan Hernandez MD Nov 16, 2018 10:51
--- NOTE | 2018-11-16 11:41 | NUR ---
RD ASSESSMENT & RECOMMENDATIONS SEE CARE ACTIVITY FOR COMPLETE ASSESSMENT DAILY ESTIMATED NEEDS: Needs based on Critical care, sepsis, wound 60kg adj 22-30 kcals/kg 2114-5304 total kcals 1.25-2 g protein/kg 75-120 g total protein Fluid per MD, on lasix NUTRITION DIAGNOSIS: * Swallowing difficulty r/t resp status as evidenced by pt is vent dep via trach and PEG dep. * Increased kcal and pro needs r/t wound healing and sepsis as evidenced by pt w/ sacral and R heel wounds, febrile (Tmax 101.8). CURRENT TF:Jevity 1.2 @50 ml/hr x16 hrs ENTERAL NUTRITION RECOMMENDATIONS: Glucerna 1.2 @ 65ml/hr x18 hrs + Prosource x1 daily to provide 1170ml, 1404 kcal, 70g pro + 11g pro, 942 free H2O - REC TF CHANGE AND INCREASE TO BETTER MEET EST NEEDS - TF TO BE HELD FOR ONE HR BEFORE AND AFTER DILANTIN MEDS - START @ 30ML/HR, ADVANCE TOLERATED 10-15ML/HR Q4-6 HRS TO GOAL - FLUSH PER MD, HOB OVER 30 DEGREES ADDITIONAL RECOMMENDATIONS: 1) CALIBRATED BED SCALE W/ ADDED P200 MATTRESS + PUMP 2) ON LASIX, MONITOR LYTES AND HYDRATION STATUS DAILY 3) TF TO RUN A MAX OF 18 HRS/DAY W/ DILANTIN TID PER PHARMACY 4) REC TF CHANGE TO CARB CONTROL FORMULA -> h/o DM, on NISS+ Levemir 5) WOUND CARE: ADD CHAYITO BID + VIT C 250MG DAILY
--- NOTE | 2018-11-16 12:09 | Surgery Progress Note ---
Surgery Progress Note Subjective Additional Comments afebrile, HD stable leukocytosis improved labs stable exam stable Objective Last 24 Hour Vital Signs Date Time Temp Pulse Resp B/P (MAP) Pulse Ox O2 Delivery O2 Flow Rate FiO2 11/16/18 11:40 91 25 30 11/16/18 08:55 84 23 30 11/16/18 08:23 83 129/65 11/16/18 08:00 Mechanical Ventilator 11/16/18 08:00 99.0 83 20 129/65 (86) 100 11/16/18 08:00 30 11/16/18 07:48 82 20 30 11/16/18 07:36 83 11/16/18 06:00 112/61 11/16/18 05:29 89 20 30 11/16/18 05:17 91 123/54 11/16/18 04:14 99.8 11/16/18 04:14 99.8 11/16/18 04:00 91 11/16/18 04:00 Mechanical Ventilator 11/16/18 04:00 30 11/16/18 03:30 101.8 91 23 123/54 (77) 100 11/16/18 03:10 87 19 30 11/16/18 01:08 88 22 30 11/16/18 00:00 99.1 88 23 139/58 (85) 98 11/16/18 00:00 Mechanical Ventilator 11/16/18 00:00 30 11/16/18 00:00 85 11/15/18 23:09 85 23 30 11/15/18 22:00 113/50 11/15/18 21:27 84 20 98 Mechanical Ventilator 30 11/15/18 21:27 85 19 30 11/15/18 21:16 133/57 (82) 11/15/18 21:15 88 133/57 11/15/18 20:00 Mechanical Ventilator 11/15/18 20:00 30 11/15/18 20:00 92 11/15/18 20:00 98.2 91 21 100/50 (67) 98 11/15/18 18:58 92 23 30 11/15/18 17:27 107 23 30 11/15/18 17:00 100.7 100 24 145/81 (102) 100 11/15/18 16:00 30 11/15/18 16:00 Mechanical Ventilator 11/15/18 15:24 143/63 11/15/18 15:23 100 143/63 11/15/18 15:14 98 11/15/18 14:51 100 22 30 11/15/18 13:24 95 23 30 I&O Intake and Output 11/15/18 11/16/18 19:00 07:00 Intake Total 100 ml 1194.166 ml Output Total 400 ml 1000 ml Balance -300 ml 194.166 ml Intake Free Water 50 ml IV Total 744.166 ml Tube Feeding 100 ml 400 ml Output Urine Total 400 ml 1000 ml # Bowel Movements 2 Dressing: saturated Wound: other Drains: other Cardiovascular: RSR Respiratory: decreased breath sounds Abdomen: soft, present bowel sounds, other, non-distended Extremities: no cyanosis Laboratory Tests Test 11/15/18 19:15 11/16/18 04:00 Vancomycin Level Trough 15.9 ug/mL (5.0-12.0) H White Blood Count 11.0 K/UL (4.8-10.8) H Red Blood Count 3.52 M/UL (4.20-5.40) L Hemoglobin 8.9 G/DL (12.0-16.0) L Hematocrit 28.2 % (37.0-47.0) L Mean Corpuscular Volume 80 FL (80-99) Mean Corpuscular Hemoglobin 25.2 PG (27.0-31.0) L Mean Corpuscular Hemoglobin Concent 31.5 G/DL (32.0-36.0) L Red Cell Distribution Width 23.7 % (11.6-14.8) H Platelet Count 537 K/UL (150-450) H Mean Platelet Volume 4.9 FL (6.5-10.1) L Neutrophils (%) (Auto) 78.6 % (45.0-75.0) H Lymphocytes (%) (Auto) 8.3 % (20.0-45.0) L Monocytes (%) (Auto) 6.2 % (1.0-10.0) Eosinophils (%) (Auto) 5.7 % (0.0-3.0) H Basophils (%) (Auto) 1.1 % (0.0-2.0) Sodium Level 140 MMOL/L (136-145) Potassium Level 3.4 MMOL/L (3.5-5.1) L Chloride Level 102 MMOL/L (98-107) Carbon Dioxide Level 31 MMOL/L (21-32) Anion Gap 8 mmol/L (5-15) Blood Urea Nitrogen 13 mg/dL (7-18) Creatinine 0.4 MG/DL (0.55-1.30) L Estimat Glomerular Filtration Rate mL/min (>60) Glucose Level 105 MG/DL (74-106) Calcium Level 8.1 MG/DL (8.5-10.1) L Total Bilirubin 0.2 MG/DL (0.2-1.0) Aspartate Amino Transf (AST/SGOT) 88 U/L (15-37) H Alanine Aminotransferase (ALT/SGPT) 84 U/L (12-78) H Alkaline Phosphatase 205 U/L (46-116) H Total Protein 5.3 G/DL (6.4-8.2) L Albumin 1.1 G/DL (3.4-5.0) L Globulin 4.2 g/dL Albumin/Globulin Ratio 0.3 (1.0-2.7) L Plan Problems: (1) Fever (2) Tongue abnormality Assessment & Plan: patients jaw clenched closed and tongue has been stuck for some time. tongue split from middle teeth and now in two. edema and unable to reduce keep tongue moist. apply lube jelly prn dryness. will monitor do not recommend surgical intervention for this current medical condition (3) Tracheostomy dependence (4) Sepsis Assessment & Plan: gb no stones 6mm polyp no acute surgical intervention planned trend labs DAILY ESTIMATED NEEDS: Needs based on Critical care, sepsis, wound 60kg adj 22-30 kcals/kg 0738-9003 total kcals 1.25-2 g protein/kg 75-120 g total protein Fluid per MD, on lasix NUTRITION DIAGNOSIS: * Swallowing difficulty r/t respiratory status as evidenced by pt is vent dep via trach and PEG dep. * Increased kcal and pro needs r/t wound healing and sepsis as evidenced by pt w/ sacral and R heel wounds, febrile (Tmax 101.5). CURRENT TF: Jevity 1.2 @50 ml/hr x16 hrs ENTERAL NUTRITION RECOMMENDATIONS: Glucerna 1.2 @65ml/hr x18 hrs + Prosource x1 daily to provide 1170ml, 1404 kcal, 70g pro + 11g pro, 942 free H2O - REC TF CHANGE AND INCREASE TO BETTER MEET EST NEEDS - TF TO BE HELD FOR ONE HR BEFORE AND AFTER DILANTIN MEDS - START @20ML/HR, ADVANCE TOLERATED 15ML/HR Q4-6 HRS TO GOAL - FLUSH PER , TAYLER OVRE 30 DEGREES ADDITIONAL RECOMMENDATIONS: 1) CALIBRATED BED SCALE W/ ADDED P200 MATTRESS + PUMP 2) ON LASIX, MONITOR LYTES AND HYDRATION STATUS DAILY 3) TF TO RUN A MAX OF 18 HRS/DAY W/ DILANTIN TID PER PHARMACY 4) REC TF CHANGE TO CARB CONTROL FORMULA 5) WOUND CARE: ADD CHAYITO BID + VIT C 250MG DAILY (5) Fever (6) Decubitus skin ulcer Assessment & Plan: Pt presented on admission with full thickness sacral pressure injury.Base of wound is 20% necrotic , 80% slough. borders are macerated . Mild odor noted. (L)8.4cm x (W) 6.5cm. Periwound skin tone is darker without erythema,induration or elevation in skin temp. Both heels are non -blanchable and both are fluctuant when palpated. Tx.Plan: Clean wound with saline. Apply Therahoney. Aply Moisture Barrier paste periwound. Cover with Optifoam drsg. Change every 3 days and prn. Apply Cavilon Skin BArrier to both heels. Cover each heel with Optifoam drsg. Change every 7 days and prn. APM/DEIRDRE mattress overlay. Reposition at least every 2hours or as tolerated. Off-load heels with pillow. will follow with recs thank you Preet Hylton Nov 16, 2018 12:09
[2018-11-16] MEDS ORDERED: Sodium Chloride for KCL Premix X 1hr IV SCH (12:15)
--- NOTE | 2018-11-16 12:15 | General Progress Note ---
Assessment/Plan Status: unchanged Assessment/Plan: Assessment/Plan Status: stable Assessment/Plan: 78-year-old female who is trach dependent who was brought in by long-term for sepsis and found to have UTI and bacteremia. #Sepsis secondary to UTI, GPC Staph Epidermidis bacteremia, Line associated infection an E. Coli isolated from the cath tip- the patient arrived to the Hospital with PICC ID consult appreciate Rec and await adjustment of antibiotics today. Pseudomonal pneumonia, UTI due to Enterococcus F, VRE colonized Remove PICC and place new line 11/13/18 Continue antibiotics per ID: Continue Zosyn and vancomycin, anti fungal added. Zosyn decision today per ID Repeat blood cultures 11/12/18 NGT note Echo to eval for vegetation negative sputum cultures with pseudomonas Chest x-ray reviewed: Atelectasis # Transaminitis - trend lft's - GI consult, appreciate recs - ab us: reviewed - f/u hep panel #Elevated troponin secondary to sepsis versus ACS Cardiology consult, appreciate recs Medications per cardiology #Hypertension- improved Continue current medications, hydralazine as needed hypertension #Vent dependent Pulmonary consult, appreciate recs Vent management per pulmonary #Hypokalemia Replace, continue to monitor 3.1 today # Chronic tongue wound Supportive care On examination the patient has a sharp lower incisor present that is likely the culprit for the tongue laceration when she was intubated in the prior hospitalization at [facility] # History of mood disorder Seen by psychiatry and on Depakote. Level was checked # Seizure history - Discussed with Dr. Eric who knew the patient from [facility] and confirmed that she did have seizure activity and was on multiple AED regimen. - Will continue Depakote at the current dose and get levels today of both AED ( Phenytoin) #Diabetes Mellitus - glucose noted in the 90-110's - Decrease Levemir to 4 units q 12 hours - Hb A1c level ordered # Disposition - SNF when cleared by ID. Still febrile. Time of note may not reflect time of patient encounter Pulsed reviewed: Full code Subjective ROS Limited/Unobtainable: Yes Allergies: Coded Allergies: Crayfish (Unverified Allergy, Unknown, 11/11/18) Uncoded Allergies: Crawfish (Allergy, Unknown, 11/09/18) Subjective non verbal Objective Last 24 Hour Vital Signs Date Time Temp Pulse Resp B/P (MAP) Pulse Ox O2 Delivery O2 Flow Rate FiO2 8/29/19 11:40 91 25 30 11/16/18 08:55 84 23 30 11/16/18 08:23 83 129/65 11/16/18 08:00 Mechanical Ventilator 11/16/18 08:00 99.0 83 20 129/65 (86) 100 11/16/18 08:00 30 11/16/18 07:48 82 20 30 11/16/18 07:36 83 11/16/18 06:00 112/61 11/16/18 05:29 89 20 30 11/16/18 05:17 91 123/54 11/16/18 04:14 99.8 11/16/18 04:14 99.8 11/16/18 04:00 91 11/16/18 04:00 Mechanical Ventilator 11/16/18 04:00 30 11/16/18 03:30 101.8 91 23 123/54 (77) 100 11/16/18 03:10 87 19 30 11/16/18 01:08 88 22 30 11/16/18 00:00 99.1 88 23 139/58 (85) 98 11/16/18 00:00 Mechanical Ventilator 11/16/18 00:00 30 11/16/18 00:00 85 11/15/18 23:09 85 23 30 11/15/18 22:00 113/50 11/15/18 21:27 84 20 98 Mechanical Ventilator 30 11/15/18 21:27 85 19 30 11/15/18 21:16 133/57 (82) 11/15/18 21:15 88 133/57 11/15/18 20:00 Mechanical Ventilator 11/15/18 20:00 30 11/15/18 20:00 92 11/15/18 20:00 98.2 91 21 100/50 (67) 98 11/15/18 18:58 92 23 30 11/15/18 17:27 107 23 30 11/15/18 17:00 100.7 100 24 145/81 (102) 100 11/15/18 16:00 30 11/15/18 16:00 Mechanical Ventilator 11/15/18 15:24 143/63 11/15/18 15:23 100 143/63 11/15/18 15:14 98 11/15/18 14:51 100 22 30 11/15/18 13:24 95 23 30 Intake and Output 11/15/18 11/16/18 19:00 07:00 Intake Total 100 ml 1194.166 ml Output Total 400 ml 1000 ml Balance -300 ml 194.166 ml Intake Free Water 50 ml IV Total 744.166 ml Tube Feeding 100 ml 400 ml Output Urine Total 400 ml 1000 ml # Bowel Movements 2 Laboratory Tests 11/15/18 19:15: Vancomycin Level Trough 15.9H 11/16/18 04:00: White Blood Count 11.0H, Red Blood Count 3.52L, Hemoglobin 8.9L, Hematocrit 28.2L, Mean Corpuscular Volume 80, Mean Corpuscular Hemoglobin 25.2L, Mean Corpuscular Hemoglobin Concent 31.5L, Red Cell Distribution Width 23.7H, Platelet Count 537H, Mean Platelet Volume 4.9L, Neutrophils (%) (Auto) 78.6H, Lymphocytes (%) (Auto) 8.3L, Monocytes (%) (Auto) 6.2, Eosinophils (%) (Auto) 5.7H, Basophils (%) (Auto) 1.1, Sodium Level 140, Potassium Level 3.4L, Chloride Level 102, Carbon Dioxide Level 31, Anion Gap 8, Blood Urea Nitrogen 13 , Creatinine 0.4L, Estimat Glomerular Filtration Rate , Glucose Level 105, Calcium Level 8.1L, Total Bilirubin 0.2, Aspartate Amino Transf (AST/SGOT) 88H, Alanine Aminotransferase (ALT/SGPT) 84H, Alkaline Phosphatase 205H, Total Protein 5.3L, Albumin 1.1L, Globulin 4.2, Albumin/Globulin Ratio 0.3L Height (Feet): 5 Height (Inches): 8.00 Weight (Pounds): 205 General Appearance: WD/WN, no apparent distress, lethargic Cardiovascular: normal rate, regular rhythm Respiratory/Chest: chest wall non-tender, lungs clear 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
--- NOTE | 2018-11-16 12:25 | GI Progress Note ---
Assessment/Plan Problems: (1) Abnormal LFTs ICD Codes: R94.5 - Abnormal results of liver function studies SNOMED: 731800942 (2) Decubitus skin ulcer ICD Codes: L89.90 - Pressure ulcer of unspecified site, unspecified stage SNOMED: 545720773 (3) Protein calorie malnutrition ICD Codes: E46 - Unspecified protein-calorie malnutrition SNOMED: 647969746 (4) Colon adenocarcinoma ICD Codes: C18.9 - Malignant neoplasm of colon, unspecified SNOMED: 259880905 (5) Sepsis ICD Codes: A41.9 - Sepsis, unspecified organism SNOMED: 89338268 (6) Tracheostomy dependence ICD Codes: Z93.0 - Tracheostomy status SNOMED: 906169956 (7) Gastrostomy in place ICD Codes: Z93.1 - Gastrostomy status SNOMED: 47747937, 90746826, 562893147 Status: unchanged Status Narrative Discussed with Dr. Humphries. Assessment/Plan Assessment - Iron deficiency anemia - abnormal LFT - ? meds, passive congestion - dysphagia, s/p GT - Resp, failure, s/p Trach - hepatitis panel negative Recommendations - Continue TF - Monitor LFT - declining - IV Iron - follow CBC - Conservative approach given poor health The patient was seen and examined at bedside and all new and available data was reviewed in the patients chart. I agree with the above findings, impression and plan. (Patient seen earlier today. Signature stamp does not reflect patient encounter time.). - Casper Humphries MD Subjective Subjective limited Objective Last 24 Hour Vital Signs Date Time Temp Pulse Resp B/P (MAP) Pulse Ox O2 Delivery O2 Flow Rate FiO2 11/16/18 12:00 99.0 88 22 133/58 (83) 100 11/16/18 11:40 91 25 30 11/16/18 08:55 84 23 30 11/16/18 08:23 83 129/65 11/16/18 08:00 Mechanical Ventilator 11/16/18 08:00 99.0 83 20 129/65 (86) 100 11/16/18 08:00 30 11/16/18 07:48 82 20 30 11/16/18 07:36 83 11/16/18 06:00 112/61 11/16/18 05:29 89 20 30 11/16/18 05:17 91 123/54 11/16/18 04:14 99.8 11/16/18 04:14 99.8 11/16/18 04:00 91 11/16/18 04:00 Mechanical Ventilator 11/16/18 04:00 30 11/16/18 03:30 101.8 91 23 123/54 (77) 100 11/16/18 03:10 87 19 30 11/16/18 01:08 88 22 30 11/16/18 00:00 99.1 88 23 139/58 (85) 98 11/16/18 00:00 Mechanical Ventilator 11/16/18 00:00 30 11/16/18 00:00 85 11/15/18 23:09 85 23 30 11/15/18 22:00 113/50 11/15/18 21:27 84 20 98 Mechanical Ventilator 30 11/15/18 21:27 85 19 30 11/15/18 21:16 133/57 (82) 11/15/18 21:15 88 133/57 11/15/18 20:00 Mechanical Ventilator 11/15/18 20:00 30 11/15/18 20:00 92 11/15/18 20:00 98.2 91 21 100/50 (67) 98 11/15/18 18:58 92 23 30 11/15/18 17:27 107 23 30 11/15/18 17:00 100.7 100 24 145/81 (102) 100 11/15/18 16:00 30 11/15/18 16:00 Mechanical Ventilator 11/15/18 15:24 143/63 11/15/18 15:23 100 143/63 11/15/18 15:14 98 11/15/18 14:51 100 22 30 11/15/18 13:24 95 23 30 Intake and Output 11/15/18 11/16/18 19:00 07:00 Intake Total 100 ml 1194.166 ml Output Total 400 ml 1000 ml Balance -300 ml 194.166 ml Intake Free Water 50 ml IV Total 744.166 ml Tube Feeding 100 ml 400 ml Output Urine Total 400 ml 1000 ml # Bowel Movements 2 Laboratory Tests Test 11/15/18 19:15 11/16/18 04:00 Vancomycin Level Trough 15.9 ug/mL (5.0-12.0) H White Blood Count 11.0 K/UL (4.8-10.8) H Red Blood Count 3.52 M/UL (4.20-5.40) L Hemoglobin 8.9 G/DL (12.0-16.0) L Hematocrit 28.2 % (37.0-47.0) L Mean Corpuscular Volume 80 FL (80-99) Mean Corpuscular Hemoglobin 25.2 PG (27.0-31.0) L Mean Corpuscular Hemoglobin Concent 31.5 G/DL (32.0-36.0) L Red Cell Distribution Width 23.7 % (11.6-14.8) H Platelet Count 537 K/UL (150-450) H Mean Platelet Volume 4.9 FL (6.5-10.1) L Neutrophils (%) (Auto) 78.6 % (45.0-75.0) H Lymphocytes (%) (Auto) 8.3 % (20.0-45.0) L Monocytes (%) (Auto) 6.2 % (1.0-10.0) Eosinophils (%) (Auto) 5.7 % (0.0-3.0) H Basophils (%) (Auto) 1.1 % (0.0-2.0) Sodium Level 140 MMOL/L (136-145) Potassium Level 3.4 MMOL/L (3.5-5.1) L Chloride Level 102 MMOL/L (98-107) Carbon Dioxide Level 31 MMOL/L (21-32) Anion Gap 8 mmol/L (5-15) Blood Urea Nitrogen 13 mg/dL (7-18) Creatinine 0.4 MG/DL (0.55-1.30) L Estimat Glomerular Filtration Rate mL/min (>60) Glucose Level 105 MG/DL (74-106) Calcium Level 8.1 MG/DL (8.5-10.1) L Total Bilirubin 0.2 MG/DL (0.2-1.0) Aspartate Amino Transf (AST/SGOT) 88 U/L (15-37) H Alanine Aminotransferase (ALT/SGPT) 84 U/L (12-78) H Alkaline Phosphatase 205 U/L (46-116) H Total Protein 5.3 G/DL (6.4-8.2) L Albumin 1.1 G/DL (3.4-5.0) L Globulin 4.2 g/dL Albumin/Globulin Ratio 0.3 (1.0-2.7) L Height (Feet): 5 Height (Inches): 8.00 Weight (Pounds): 205 General Appearance: no apparent distress Cardiovascular: normal rate Respiratory/Chest: normal breath sounds, no respiratory distress Abdominal Exam: soft Aysha Sykes NP Nov 16, 2018 12:25
[2018-11-16 13:05] LABS: APPEARANCE,URINE CLEAR; BILIRUBIN, URINE NEGATIVE (NEGATIVE); COLOR,URINE PALE YELLOW; GLUCOSE, URINE (UA) NEGATIVE (NEGATIVE); KETONES,URINE NEGATIVE (NEGATIVE); LEUKOCYTE ESTERASE ,URINE 2+ (NEGATIVE); NITRITE,URINE NEGATIVE (NEGATIVE); PH,URINE 5 (4.5-8.0); PROTEIN,URINE 1+ (NEGATIVE); UROBILINOGEN,URINE NORMAL MG/DL (0.0-1.0)
--- NOTE | 2018-11-16 13:07 | NUR ---
NURSE NOTES:WOUND CARE FOLLOW-UP NOTES:Full thickness sacral pressure injury.(L)7.5cm x (W)9cm. Base of wound is 20% granular 80%mixed slough and necrosis. Scattered slough along borders.Periwound-extending outward to R and L buttocks are purple and indurated. MASD resolving . Small sheared area noted to posterior L thigh. (L)1cm x (W)0.8cm. Non-blanching erythema with fluctuance L heel. R heel is boggy but blanchable. Pt noted to have wound with 100% slough at base of tracheostomy . No odor or exudate noted. Tx.Plan:Cleanse sacral wound with Saline. Apply Therahoney. Apply Moisture Barrier paste periwound. Cover with Optifoam Drsg. Change every 3 days and prn. Apply Moisture Barrier Paste to abd folds,mons-pubis. Bilat groin, medial/posterior upper thighs and both ischial areas with each perineal care. Apply Cavilon Skin Barrier to Both heels. Cover each heel with Optifoam drsg. Change very 7 days and prn. Reposition at least every 2hours or as tolerated. Off-load heels with pillow. APM/DEIRDRE mattress overlay.
--- NOTE | 2018-11-16 14:43 | Infectious Diseases Prog Note ---
Assessment/Plan Assessment/Plan ASSESSMENT AND PLAN: 1. 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 Treviño 2. Trach-vent respiratory failure. 3. Dysphagia, G-tube. 4. Anemia. 5. Diabetes. 6. Hypertension. 7. Large tongue. 8. Anoxic brain injury. 9. Weakness. 10. Poorly responsive. 11. History of seizures. 12. History of colon adenocarcinoma. 13. Skin care protocol. 14. Allergy to crawfish. 15. Social history negative. 16. Family history noncontributory. 17. MAR was noted. 18. Case was discussed with RN. 19. Continue treatment per primary consultants. 20. Orders were ordered, entered, and noted. 21. Continue wound care protocol. 22. Continue blood sugar and blood pressure treatment per primary consultants for diabetes and hypertension. 23. vre colonization and isolation Subjective Constitutional: Reports: fatigue, other - + trach and vent ; Denies: fever HEENT: Denies: congestion Respiratory: Denies: shortness of breath Cardiovascular: Denies: chest pain Gastrointestinal/Abdominal: Denies: nausea, vomiting, diarrhea Genitourinary: Reports: other - + nava Neurologic: Reports: weakness, other - poorly responsive Psychiatric: Reports: other - NA Skin: Reports: ulcer - wounds covered Hematologic: Denies: bleeding Musculoskeletal: Denies: pain Allergies: Coded Allergies: Crayfish (Unverified Allergy, Unknown, 11/11/18) Uncoded Allergies: Crawfish (Allergy, Unknown, 11/09/18) Objective Vital Signs Last 24 Hour Vital Signs Date Time Temp Pulse Resp B/P (MAP) Pulse Ox O2 Delivery O2 Flow Rate FiO2 11/16/18 12:43 92 26 30 11/16/18 12:00 99.0 88 22 133/58 (83) 100 11/16/18 12:00 30 11/16/18 12:00 Mechanical Ventilator 11/16/18 11:43 88 11/16/18 11:40 91 25 30 11/16/18 08:55 84 23 30 11/16/18 08:23 83 129/65 11/16/18 08:00 Mechanical Ventilator 11/16/18 08:00 99.0 83 20 129/65 (86) 100 11/16/18 08:00 30 11/16/18 07:48 82 20 30 11/16/18 07:36 83 11/16/18 06:00 112/61 11/16/18 05:29 89 20 30 11/16/18 05:17 91 123/54 11/16/18 04:14 99.8 11/16/18 04:14 99.8 11/16/18 04:00 91 11/16/18 04:00 Mechanical Ventilator 11/16/18 04:00 30 11/16/18 03:30 101.8 91 23 123/54 (77) 100 11/16/18 03:10 87 19 30 11/16/18 01:08 88 22 30 11/16/18 00:00 99.1 88 23 139/58 (85) 98 11/16/18 00:00 Mechanical Ventilator 11/16/18 00:00 30 11/16/18 00:00 85 11/15/18 23:09 85 23 30 11/15/18 22:00 113/50 11/15/18 21:27 84 20 98 Mechanical Ventilator 30 11/15/18 21:27 85 19 30 11/15/18 21:16 133/57 (82) 11/15/18 21:15 88 133/57 11/15/18 20:00 Mechanical Ventilator 11/15/18 20:00 30 11/15/18 20:00 92 11/15/18 20:00 98.2 91 21 100/50 (67) 98 11/15/18 18:58 92 23 30 11/15/18 17:27 107 23 30 11/15/18 17:00 100.7 100 24 145/81 (102) 100 11/15/18 16:00 30 11/15/18 16:00 Mechanical Ventilator 11/15/18 15:24 143/63 11/15/18 15:23 100 143/63 11/15/18 15:14 98 11/15/18 14:51 100 22 30 Height (Feet): 5 Height (Inches): 8.00 Weight (Pounds): 205 General Appearance: other - + trach and vent HEENT: normocephalic, atraumatic, anicteric, no JVD, status post trach Respiratory/Chest: crackles/rales, rhonchi - bilaterally Cardiovascular: normal rate, regular rhythm, no gallop/murmur, no JVD Abdomen: normal bowel sounds, soft, non tender, no organomegaly, non distended Genitourinary: other - + nava - urine slt cloudy Extremities: no cyanosis Skin: no rash Neurologic/Psychiatric: motor weakness, other - weak and poorly responsive Lymphatic: no neck adenopathy Musculoskeletal: no effusion Objective 11/11/18 - chest x-ray - IMPRESSION: 1. Hypoventilatory lungs. Elevated right hemidiaphragm. Slightly improved vascular congestion. Similar bibasilar lung atelectasis and airspace disease. 2. Query right pleural effusion. 2-D echo - no vegetations mentioned, report noted sacral x-ray - no osteo mentioned, report noted 11/14/18 - Technique: One view of the chest Comparison: November 13, 2018 post PICC radiograph Findings: Bilateral interstitial and alveolar edema versus infiltrates appear slightly worse. There is increasing obscuration of left hemidiaphragm, may reflect increasing pleural fluid as well. The heart remains enlarged. Previously demonstrated left arm PICC has been removed. Stable right arm PICC. Impression: Slightly worsening bilateral interstitial and airspace infiltrates versus edema, over one day Microbiology Date/Time Source Procedure Growth Status 11/12/18 17:45 Blood Blood Culture - Final Staphylococcus Haemolyticus Complete 11/09/18 05:38 Sputum Induced Gram Stain - Final Complete 11/09/18 05:38 Sputum Culture - Final Pseudomonas Aeruginosa Usual Respiratory Carmita Complete 11/09/18 02:05 Urine,Clean Catch Urine Culture - Final Enterococcus Faecalis Complete 11/13/18 21:55 Catheter Site Catheter Tip Culture - Preliminary Escherichia Coli Resulted Microbiology Date/Time Source Procedure Growth Status 11/13/18 21:55 Catheter Site Catheter Tip Culture - Preliminary Escherichia Coli Resulted Laboratory Tests Test 11/15/18 19:15 11/16/18 04:00 11/16/18 12:25 11/16/18 12:30 Vancomycin Level Trough 15.9 ug/mL (5.0-12.0) H White Blood Count 11.0 K/UL (4.8-10.8) H Red Blood Count 3.52 M/UL (4.20-5.40) L Hemoglobin 8.9 G/DL (12.0-16.0) L Hematocrit 28.2 % (37.0-47.0) L Mean Corpuscular Volume 80 FL (80-99) Mean Corpuscular Hemoglobin 25.2 PG (27.0-31.0) L Mean Corpuscular Hemoglobin Concent 31.5 G/DL (32.0-36.0) L Red Cell Distribution Width 23.7 % (11.6-14.8) H Platelet Count 537 K/UL (150-450) H Mean Platelet Volume 4.9 FL (6.5-10.1) L Neutrophils (%) (Auto) 78.6 % (45.0-75.0) H Lymphocytes (%) (Auto) 8.3 % (20.0-45.0) L Monocytes (%) (Auto) 6.2 % (1.0-10.0) Eosinophils (%) (Auto) 5.7 % (0.0-3.0) H Basophils (%) (Auto) 1.1 % (0.0-2.0) Sodium Level 140 MMOL/L (136-145) Potassium Level 3.4 MMOL/L (3.5-5.1) L Chloride Level 102 MMOL/L (98-107) Carbon Dioxide Level 31 MMOL/L (21-32) Anion Gap 8 mmol/L (5-15) Blood Urea Nitrogen 13 mg/dL (7-18) Creatinine 0.4 MG/DL (0.55-1.30) L Estimat Glomerular Filtration Rate mL/min (>60) Glucose Level 105 MG/DL (74-106) Calcium Level 8.1 MG/DL (8.5-10.1) L Total Bilirubin 0.2 MG/DL (0.2-1.0) Aspartate Amino Transf (AST/SGOT) 88 U/L (15-37) H Alanine Aminotransferase (ALT/SGPT) 84 U/L (12-78) H Alkaline Phosphatase 205 U/L (46-116) H Total Protein 5.3 G/DL (6.4-8.2) L Albumin 1.1 G/DL (3.4-5.0) L Globulin 4.2 g/dL Albumin/Globulin Ratio 0.3 (1.0-2.7) L Hemoglobin A1c 5.6 % (4.3-6.0) Phenytoin (Dilantin) Level 4.3 ug/mL (10-20) L Valproic Acid (Depakene) Level 28 MCG/ML (50-100) L Urine Color Pale yellow Urine Appearance Clear Urine pH 5 (4.5-8.0) Urine Specific [place] 1.010 (1.005-1.035) Urine Protein 1+ (NEGATIVE) H Urine Glucose (UA) Negative (NEGATIVE) Urine Ketones Negative (NEGATIVE) Urine Blood 3+ (NEGATIVE) H Urine Nitrite Negative (NEGATIVE) Urine Bilirubin Negative (NEGATIVE) Urine Urobilinogen Normal MG/DL (0.0-1.0) Urine Leukocyte Esterase 2+ (NEGATIVE) H Urine RBC 2-4 /HPF (0 - 2) H Urine WBC 10-15 /HPF (0 - 2) H Urine Squamous Epithelial Cells None /LPF (NONE/OCC) Urine Bacteria Occasional /HPF (NONE) Urine Yeast Moderate /HPF (NONE) H Current Medications Medications (Trade) Dose Ordered Sig/Lupe Route PRN Reason Start Time Stop Time Status Last Admin Dose Admin Acetaminophen (Tylenol) 650 mg Q4H PRN GT Mild Pain/Temp > 100.5 11/09/18 05:00 12/09/18 04:59 11/16/18 03:44 Amlodipine Besylate (Norvasc) 10 mg DAILY GT 11/09/18 09:00 12/09/18 08:59 11/16/18 08:23 Bisacodyl (Dulcolax) 10 mg DAILY PRN RECTAL Constipation 11/09/18 05:00 12/09/18 04:59 Calcium Carbonate (Tums) 500 mg EVERY 8 HOURS GT 11/09/18 14:00 12/09/18 08:59 11/16/18 05:14 Chlorhexidine Gluconate (Corazon-Hex 2%) 1 applic DAILY@1999 TOPIC 11/12/18 20:00 12/12/18 19:59 11/15/18 20:13 Dextrose (Dextrose 50%) 25 ml Q30M PRN IV Hypoglycemia 11/09/18 04:45 12/09/18 04:44 Dextrose (Dextrose 50%) 50 ml Q30M PRN IV Hypoglycemia 11/09/18 04:45 12/09/18 04:44 11/09/18 09:09 Enoxaparin Sodium (Lovenox) 40 mg DAILY SUBQ 11/09/18 09:00 12/09/18 08:59 11/15/18 09:24 Famotidine (Pepcid) 20 mg EVERY 12 HOURS GT 11/09/18 21:00 12/09/18 08:59 11/16/18 08:22 Fluconazole/ Sodium Chloride 100 ml @ 100 mls/hr Q24H IV 11/13/18 13:00 11/20/18 12:59 11/16/18 13:08 Furosemide (Lasix) 40 mg EVERY 12 HOURS GT 11/09/18 09:00 12/09/18 08:59 11/16/18 08:22 Hydralazine HCl (Apresoline) 5 mg EVERY 8 HOURS GT 11/09/18 06:00 12/09/18 05:59 11/15/18 15:24 Insulin Aspart (NovoLOG) Q6HR SUBQ 11/09/18 06:00 12/09/18 05:59 11/15/18 18:21 Insulin Detemir (Levemir) 4 units EVERY 12 HOURS SUBQ 11/16/18 21:00 12/09/18 08:59 Labetalol HCl (Normodyne) 200 mg Q8HR GT 11/09/18 06:00 12/09/18 05:59 11/16/18 05:17 Levetiracetam (Keppra) 1,500 mg Q12HR GT 11/09/18 09:00 12/09/18 08:59 11/16/18 08:22 Magnesium Hydroxide (Mom) 30 ml DAILY PRN GT Constipation 11/09/18 05:00 12/09/18 04:59 Magnesium Oxide (Mag-Ox 400mg) 400 mg EVERY 8 HOURS GT 11/09/18 14:00 12/09/18 08:59 11/16/18 05:14 Meropenem 1 gm/ Sodium Chloride 100 ml @ 200 mls/hr Q8HR IVPB 11/16/18 14:00 11/21/18 13:59 Ondansetron HCl (Zofran) 4 mg Q6H PRN GT Nausea & Vomiting 11/09/18 05:00 12/09/18 04:59 Phenobarbital (PHENobarbital) 60 mg BID GT 11/09/18 09:00 12/09/18 08:59 11/16/18 08:21 Phenytoin (Dilantin) 100 mg Q8HR GT 11/09/18 06:00 12/09/18 05:59 11/16/18 05:14 Polyethylene Glycol (Miralax) 17 gm DAILYPRN PRN GT Constipation 11/14/18 10:30 12/12/18 10:29 Sennosides (Senokot) 8.6 mg EVERY 12 HOURS GT 11/09/18 21:00 12/09/18 08:59 11/16/18 08:22 Valproic Acid (Depakene) 500 mg EVERY 8 HOURS GT 11/09/18 06:00 12/09/18 05:59 11/16/18 05:16 Vancomycin HCl (Vanco rx to dose) 1 ea DAILY PRN MISC Per rx protocol 11/10/18 16:45 12/10/18 16:44 Vancomycin HCl 750 mg/Sodium Chloride 275 ml @ 183.333 mls/hr Q12HR@0800,1999 IVPB 11/13/18 20:00 11/18/18 19:59 11/16/18 08:21 Dasha Crews MD Nov 16, 2018 14:43
--- NOTE | 2018-11-16 19:35 | NUR ---
HAND-OFF: Report given to Melanie Quiroz RN.
--- NOTE | 2018-11-16 19:40 | NUR ---
NURSE NOTES: received pt from Alessia DESHPANDE., pt is resting on the bed. Bed is in lowest position and locked. call light within reach. no respiratory distress noted at this moment. no dysrthmia reported from last shift. vent dependent. will continue plan of care.
[2018-11-16] MEDS: Dyna-Hex 2% Top Sol 2oz TOPIC SCH (20:28)
[2018-11-16] MEDS: Vancomycin 750 MG in NS 275 ML IVPB SCH (20:43)
[2018-11-17] VITALS: BP 143/78
[2018-11-17 04:00] VITALS: BP 157/78
[2018-11-17 04:51] LABS: BASOPHILS % (AUTO) 0.3 % (0.0-2.0); EOSINOPHILS % (AUTO) 3.6 % (0.0-3.0); HEMATOCRIT 27.8 % (37.0-47.0); HEMOGLOBIN 8.9 G/DL (12.0-16.0); LYMPHOCYTES % (AUTO) 11.5 % (20.0-45.0); MEAN CORPUSCULAR VOLUME 78 FL (80-99); MONOCYTES % (AUTO) 5.8 % (1.0-10.0); NEUTROPHILS % (AUTO) 78.8 % (45.0-75.0); PLATELET COUNT 610 K/UL (150-450); RED BLOOD COUNT 3.54 M/UL (4.20-5.40); RED CELL DISTRIBUTION WIDTH 23.2 % (11.6-14.8); WHITE BLOOD COUNT 13.4 K/UL (4.8-10.8)
[2018-11-17 05:16] LABS: ANION GAP 4 mmol/L (5-15); BLOOD UREA NITROGEN 9 mg/dL (7-18); CALCIUM 8.3 MG/DL (8.5-10.1); CARBON DIOXIDE 33 MMOL/L (21-32); CHLORIDE 103 MMOL/L (98-107); CREATININE 0.4 MG/DL (0.55-1.30); POTASSIUM 3.1 MMOL/L (3.5-5.1); SODIUM 140 MMOL/L (136-145)
[2018-11-17 05:22] LABS: PHOSPHORUS 1.9 MG/DL (2.5-4.9)
[2018-11-17] MEDS: NovoLOG Insulin Flexpen SUBQ SCH ×4 (05:22→23:10)
[2018-11-17] MEDS: Valproic Acid 250mg/5ml Liquid GT SCH ×3 (05:25→21:58)
[2018-11-17] MEDS: Magnesium Oxide 400mg tab GT SCH ×3 (05:25→21:58)
[2018-11-17] MEDS: Tums 500mg GT SCH ×3 (05:25→21:59)
[2018-11-17] MEDS: Phenytoin Susp 100mg/4ml GT SCH ×3 (05:26→21:59)
[2018-11-17] MEDS: Labetalol 200mg tab GT SCH ×3 (05:26→21:59)
[2018-11-17] MEDS: HydrALAZINE 10mg Tab GT SCH ×3 (05:27→22:00)
--- NOTE | 2018-11-17 07:09 | NUR ---
RESPIRATORY NOTE: received pt on current vent orders with no signs of resp distress. pt is trach dependent with shiley [address], secured via trach tie. pt has a bandage to the right of the stoma. alarms are on and audible with back up trach and ambu bag at bedside. will cont to monitor.
--- NOTE | 2018-11-17 07:10 | NUR ---
HAND-OFF: Report given to Radha Brennan.
--- NOTE | 2018-11-17 07:10 | NUR ---
NURSE NOTES: Received report from Marsha Law RN and CHARLEE Navarro. Observed patient in bed, nonverbal. Trach-vent with settings AC 14, TV 375, FiO2 30%, PEEP 5, no respiratory distress noted at this time. GT intact and patent with feeding infusing at prescribed rate. HOB elevated. Right upper arm PICC line intact and patent. Ospina catheter draining well with gravity. Safety precautions in place; bed locked, alarmed, and in lowest position, padded side rails up x3, and call light left within reach. Will continue with plan of care.
--- NOTE | 2018-11-17 07:35 | NUR ---
NURSE NOTES: Dr Treviño notified and made aware of potassium 3.1 and phos 1.9. Awaiting for call back/orders.
[2018-11-17 08:00] VITALS: BP 137/81
[2018-11-17] MEDS: Vancomycin 750 MG in NS 275 ML IVPB SCH ×2 (08:00→20:28)
[2018-11-17] MEDS: levETIRAcetam 500mg/5ml Liquid GT SCH ×2 (08:28→20:29)
[2018-11-17] MEDS: Sennosides 8.6mg tab GT SCH ×2 (08:29→20:29)
[2018-11-17] MEDS: PHENobarbital Elixir 30mg/7.5ml GT SCH ×2 (08:29→18:05)
[2018-11-17] MEDS: Furosemide 40mg tab GT SCH ×2 (08:29→20:30)
[2018-11-17] MEDS: Enoxaparin 40mg Inj SUBQ SCH (08:37)
[2018-11-17] MEDS: Levemir Flexpen SUBQ SCH ×2 (08:37→20:31)
[2018-11-17] MEDS ORDERED: Sodium Chloride for KCL Premix X 4hrs IV SCH (09:00)
--- NOTE | 2018-11-17 09:00 | NUR ---
NURSE NOTES: Dr Treviño called back with new orders, noted, entered and carried out.
[2018-11-17] MEDS: KCl 20mEq 100ml Premix IVPB SCH ×2 (09:01→11:03)
[2018-11-17] MEDS ORDERED: Potassium Phosphate 20 MM in NS 275 ML IV ONE (10:00)
[2018-11-17] MEDS ORDERED: NS 275ml ONE (10:35)
[2018-11-17] MEDS ORDERED: Tubing IV Secondary IV ONE (10:35)
[2018-11-17 12:00] VITALS: BP 130/69
--- NOTE | 2018-11-17 12:06 | GI Progress Note ---
Assessment/Plan Problems: (1) Abnormal LFTs ICD Codes: R94.5 - Abnormal results of liver function studies SNOMED: 914903924 (2) Decubitus skin ulcer ICD Codes: L89.90 - Pressure ulcer of unspecified site, unspecified stage SNOMED: 772419937 (3) Protein calorie malnutrition ICD Codes: E46 - Unspecified protein-calorie malnutrition SNOMED: 885040895 (4) Colon adenocarcinoma ICD Codes: C18.9 - Malignant neoplasm of colon, unspecified SNOMED: 186013489 (5) Sepsis ICD Codes: A41.9 - Sepsis, unspecified organism SNOMED: 65163206 (6) Tracheostomy dependence ICD Codes: Z93.0 - Tracheostomy status SNOMED: 135742123 (7) 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 Humphries. Assessment/Plan Assessment - Iron deficiency anemia - abnormal LFT - ?meds, passive congestion - dysphagia, s/p GT - Resp, failure, s/p Trach - hepatitis panel negative Recommendations - Continue TF - Monitor LFT - IV Iron - follow CBC - electrolyte correction - Conservative approach given poor health The patient was seen and examined at bedside and all new and available data was reviewed in the patients chart. I agree with the above findings, impression and plan. (Patient seen earlier today. Signature stamp does not reflect patient encounter time.). - Casper Humphries MD Subjective Subjective limited Objective Last 24 Hour Vital Signs Date Time Temp Pulse Resp B/P (MAP) Pulse Ox O2 Delivery O2 Flow Rate FiO2 11/17/18 10:50 84 18 30 11/17/18 08:40 87 16 30 11/17/18 08:29 98 137/81 11/17/18 08:00 98.6 98 19 137/81 (99) 100 11/17/18 08:00 Mechanical Ventilator 11/17/18 08:00 30 11/17/18 07:44 86 11/17/18 07:08 84 21 30 11/17/18 05:30 91 19 30 11/17/18 05:27 145/75 11/17/18 05:26 92 145/75 11/17/18 04:00 98.6 98 20 157/78 (104) 100 11/17/18 04:00 Mechanical Ventilator 11/17/18 04:00 30 11/17/18 04:00 93 11/17/18 03:30 89 18 30 11/17/18 01:30 90 21 30 11/17/18 00:00 Mechanical Ventilator 11/17/18 00:00 89 11/17/18 00:00 98.7 89 21 143/78 (99) 100 11/16/18 23:30 90 20 30 11/16/18 21:30 92 21 30 11/16/18 21:24 90 125/74 11/16/18 21:24 125/74 11/16/18 20:00 Mechanical Ventilator 11/16/18 20:00 99.0 90 20 122/65 (84) 100 11/16/18 20:00 30 11/16/18 19:36 89 11/16/18 19:24 90 22 30 11/16/18 17:03 95 20 30 11/16/18 16:00 99.6 96 25 128/72 (90) 100 11/16/18 16:00 Mechanical Ventilator 11/16/18 16:00 94 11/16/18 16:00 30 11/16/18 15:36 93 22 30 11/16/18 14:47 133/58 11/16/18 14:45 92 133/58 11/16/18 12:43 92 26 30 Intake and Output 11/16/18 11/17/18 19:00 07:00 Intake Total 1075.000 ml 1220.000 ml Output Total 1000 ml Balance 75.000 ml 1220.000 ml IV Total 575.000 ml 475.000 ml Tube Feeding 380 ml 665 ml Other 120 ml 80 ml Output Urine Total 1000 ml # Bowel Movements 2 1 Laboratory Tests Test 11/16/18 12:25 11/16/18 12:30 11/17/18 04:30 Hemoglobin A1c 5.6 % (4.3-6.0) Phenytoin (Dilantin) Level 4.3 ug/mL (10-20) L Valproic Acid (Depakene) Level 28 MCG/ML (50-100) L Urine Color Pale yellow Urine Appearance Clear Urine pH 5 (4.5-8.0) Urine Specific [place] 1.010 (1.005-1.035) Urine Protein 1+ (NEGATIVE) H Urine Glucose (UA) Negative (NEGATIVE) Urine Ketones Negative (NEGATIVE) Urine Blood 3+ (NEGATIVE) H Urine Nitrite Negative (NEGATIVE) Urine Bilirubin Negative (NEGATIVE) Urine Urobilinogen Normal MG/DL (0.0-1.0) Urine Leukocyte Esterase 2+ (NEGATIVE) H Urine RBC 2-4 /HPF (0 - 2) H Urine WBC 10-15 /HPF (0 - 2) H Urine Squamous Epithelial Cells None /LPF (NONE/OCC) Urine Bacteria Occasional /HPF (NONE) Urine Yeast Moderate /HPF (NONE) H White Blood Count 13.4 K/UL (4.8-10.8) H Red Blood Count 3.54 M/UL (4.20-5.40) L Hemoglobin 8.9 G/DL (12.0-16.0) L Hematocrit 27.8 % (37.0-47.0) L Mean Corpuscular Volume 78 FL (80-99) L Mean Corpuscular Hemoglobin 25.0 PG (27.0-31.0) L Mean Corpuscular Hemoglobin Concent 31.9 G/DL (32.0-36.0) L Red Cell Distribution Width 23.2 % (11.6-14.8) H Platelet Count 610 K/UL (150-450) H Mean Platelet Volume 5.5 FL (6.5-10.1) L Neutrophils (%) (Auto) 78.8 % (45.0-75.0) H Lymphocytes (%) (Auto) 11.5 % (20.0-45.0) L Monocytes (%) (Auto) 5.8 % (1.0-10.0) Eosinophils (%) (Auto) 3.6 % (0.0-3.0) H Basophils (%) (Auto) 0.3 % (0.0-2.0) Sodium Level 140 MMOL/L (136-145) Potassium Level 3.1 MMOL/L (3.5-5.1) L Chloride Level 103 MMOL/L (98-107) Carbon Dioxide Level 33 MMOL/L (21-32) H Anion Gap 4 mmol/L (5-15) L Blood Urea Nitrogen 9 mg/dL (7-18) Creatinine 0.4 MG/DL (0.55-1.30) L Estimat Glomerular Filtration Rate mL/min (>60) Glucose Level 110 MG/DL (74-106) H Calcium Level 8.3 MG/DL (8.5-10.1) L Phosphorus Level 1.9 MG/DL (2.5-4.9) L Magnesium Level 2.0 MG/DL (1.8-2.4) Microbiology Date/Time Source Procedure Growth Status 11/16/18 12:40 Sputum Expectorated Gram Stain - Final Resulted 11/16/18 12:40 Sputum Expectorated Sputum Culture Pending Resulted 11/16/18 12:30 Urine,Clean Catch Urine Culture - Preliminary Resulted Height (Feet): 5 Height (Inches): 8.00 Weight (Pounds): 205 General Appearance: WD/WN, no apparent distress, alert Cardiovascular: normal rate Respiratory/Chest: normal breath sounds, no respiratory distress Abdominal Exam: normal bowel sounds, non tender, soft, GT site Extremities: non-tender Aysha Sykes NP Nov 17, 2018 12:06
[2018-11-17] MEDS ORDERED: Potassium Phosphate 30 MM in NS 275 ML IVPB ONE (12:15)
--- NOTE | 2018-11-17 12:19 | NUR ---
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 98.6 HR 98 RR 19 B/P 137/81 WBC 13.4 K 3.1 AC 14 TV 375 FIO2 30% PEEP 5 IS: VANCO IV MEROPENEM IV KCL IV K-PHOS IV LOVENOX SUBC. LASIX STEP DOWN STATUS
--- NOTE | 2018-11-17 12:28 | Pulmonology Progress Note ---
Assessment/Plan Problems: (1) Ventilator dependence (2) Tracheostomy dependence (3) UTI (urinary tract infection) (4) Fever (5) Anoxic brain damage (6) Tongue abnormality (7) Seizure disorder (8) Colon adenocarcinoma (9) HTN (hypertension) (10) Sepsis (11) Diabetes (12) Abnormal LFTs (13) Protein calorie malnutrition (14) Gastrostomy in place (15) senior care resident (16) Decubitus skin ulcer Assessment/Plan Continue ventilatory support/settings reviewed Titrate down FiO2 to keep SaO2 > 90% Optimize pulmonary hygiene/mobilize as tolerated RTC and PRN HHN's Abx per ID, F/U Cx's F/U cards recs Monitor volumes and renal function DVT Px: LMWH Awaiting OMFS eval FC, continue to discuss GOC Wound care Subjective Allergies: Coded Allergies: Crayfish (Unverified Allergy, Unknown, 11/11/18) Uncoded Allergies: Crawfish (Allergy, Unknown, 11/09/18) Subjective AFVSS stable on vent no sig secretions no distress Objective Last 24 Hour Vital Signs Date Time Temp Pulse Resp B/P (MAP) Pulse Ox O2 Delivery O2 Flow Rate FiO2 11/17/18 12:00 30 11/17/18 12:00 99.0 93 19 130/69 (89) 100 11/17/18 10:50 84 18 30 11/17/18 08:40 87 16 30 11/17/18 08:29 98 137/81 11/17/18 08:00 98.6 98 19 137/81 (99) 100 11/17/18 08:00 Mechanical Ventilator 11/17/18 08:00 30 11/17/18 07:44 86 11/17/18 07:08 84 21 30 11/17/18 05:30 91 19 30 11/17/18 05:27 145/75 11/17/18 05:26 92 145/75 11/17/18 04:00 98.6 98 20 157/78 (104) 100 11/17/18 04:00 Mechanical Ventilator 11/17/18 04:00 30 11/17/18 04:00 93 11/17/18 03:30 89 18 30 11/17/18 01:30 90 21 30 11/17/18 00:00 Mechanical Ventilator 11/17/18 00:00 89 11/17/18 00:00 98.7 89 21 143/78 (99) 100 11/16/18 23:30 90 20 30 11/16/18 21:30 92 21 30 11/16/18 21:24 90 125/74 11/16/18 21:24 125/74 11/16/18 20:00 Mechanical Ventilator 11/16/18 20:00 99.0 90 20 122/65 (84) 100 11/16/18 20:00 30 11/16/18 19:36 89 11/16/18 19:24 90 22 30 11/16/18 17:03 95 20 30 11/16/18 16:00 99.6 96 25 128/72 (90) 100 11/16/18 16:00 Mechanical Ventilator 11/16/18 16:00 94 11/16/18 16:00 30 11/16/18 15:36 93 22 30 11/16/18 14:47 133/58 11/16/18 14:45 92 133/58 11/16/18 12:43 92 26 30 Intake and Output 11/16/18 11/17/18 19:00 07:00 Intake Total 1075.000 ml 1220.000 ml Output Total 1000 ml Balance 75.000 ml 1220.000 ml IV Total 575.000 ml 475.000 ml Tube Feeding 380 ml 665 ml Other 120 ml 80 ml Output Urine Total 1000 ml # Bowel Movements 2 1 General Appearance: no acute distress, cachetic - non verba HEENT: normocephalic, atraumatic, anicteric, mucous membranes moist, status post trach, other - lip and tongue edema Respiratory/Chest: chest wall non-tender, lungs clear, normal breath sounds, no respiratory distress Cardiovascular: normal peripheral pulses, normal rate, regular rhythm Abdomen: normal bowel sounds, soft, non tender, no organomegaly, non distended , no mass, other - GT Extremities: no cyanosis, no clubbing, no edema, other - contracted\ Microbiology Date/Time Source Procedure Growth Status 11/15/18 04:35 Blood Blood Culture - Preliminary NO GROWTH AFTER 48 HOURS Resulted 11/15/18 04:30 Blood Blood Culture - Preliminary NO GROWTH AFTER 48 HOURS Resulted 11/16/18 12:40 Sputum Expectorated Gram Stain - Final Resulted 11/16/18 12:40 Sputum Expectorated Sputum Culture Pending Resulted 11/16/18 12:30 Urine,Clean Catch Urine Culture - Preliminary Resulted Laboratory Tests 11/16/18 12:25: Hemoglobin A1c 5.6, Phenytoin (Dilantin) Level 4.3L, Valproic Acid (Depakene) Level 28L 11/16/18 12:30: Urine Color Pale yellow, Urine Appearance Clear, Urine pH 5, Urine Specific [place] 1.010, Urine Protein 1+H, Urine Glucose (UA) Negative, Urine Ketones Negative, Urine Blood 3+H, Urine Nitrite Negative, Urine Bilirubin Negative, Urine Urobilinogen Normal, Urine Leukocyte Esterase 2+H, Urine RBC 2-4H, Urine WBC 10-15H, Urine Squamous Epithelial Cells None, Urine Bacteria Occasional, Urine Yeast ModerateH 11/17/18 04:30: White Blood Count 13.4H, Red Blood Count 3.54L, Hemoglobin 8.9L, Hematocrit 27.8L, Mean Corpuscular Volume 78L, Mean Corpuscular Hemoglobin 25.0L, Mean Corpuscular Hemoglobin Concent 31.9L, Red Cell Distribution Width 23.2H, Platelet Count 610H, Mean Platelet Volume 5.5L, Neutrophils (%) (Auto) 78.8H, Lymphocytes (%) (Auto) 11.5L, Monocytes (%) (Auto) 5.8, Eosinophils (%) (Auto) 3.6H, Basophils (%) (Auto) 0.3, Sodium Level 140, Potassium Level 3.1L, Chloride Level 103, Carbon Dioxide Level 33H, Anion Gap 4L, Blood Urea Nitrogen 9, Creatinine 0.4L, Estimat Glomerular Filtration Rate , Glucose Level 110H, Calcium Level 8.3L, Phosphorus Level 1.9L, Magnesium Level 2.0 Current Medications Medications (Trade) Dose Ordered Sig/Lupe Route PRN Reason Start Time Stop Time Status Last Admin Dose Admin Acetaminophen (Tylenol) 650 mg Q4H PRN GT Mild Pain/Temp > 100.5 11/09/18 05:00 12/09/18 04:59 11/16/18 03:44 Amlodipine Besylate (Norvasc) 10 mg DAILY GT 11/09/18 09:00 12/09/18 08:59 11/17/18 08:29 Bisacodyl (Dulcolax) 10 mg DAILY PRN RECTAL Constipation 11/09/18 05:00 12/09/18 04:59 Calcium Carbonate (Tums) 500 mg EVERY 8 HOURS GT 11/09/18 14:00 12/09/18 08:59 11/17/18 05:25 Chlorhexidine Gluconate (Corazon-Hex 2%) 1 applic DAILY@2000 TOPIC 11/12/18 20:00 12/12/18 19:59 11/16/18 20:28 Dextrose (Dextrose 50%) 25 ml Q30M PRN IV Hypoglycemia 11/09/18 04:45 12/09/18 04:44 Dextrose (Dextrose 50%) 50 ml Q30M PRN IV Hypoglycemia 11/09/18 04:45 12/09/18 04:44 11/09/18 09:09 Enoxaparin Sodium (Lovenox) 40 mg DAILY SUBQ 11/09/18 09:00 12/09/18 08:59 11/17/18 08:37 Famotidine (Pepcid) 20 mg EVERY 12 HOURS GT 11/09/18 21:00 12/09/18 08:59 11/17/18 08:29 Furosemide (Lasix) 40 mg EVERY 12 HOURS GT 11/09/18 09:00 12/09/18 08:59 11/17/18 08:29 Hydralazine HCl (Apresoline) 5 mg EVERY 8 HOURS GT 11/09/18 06:00 12/09/18 05:59 11/17/18 05:27 Insulin Aspart (NovoLOG) Q6HR SUBQ 11/09/18 06:00 12/09/18 05:59 11/17/18 12:13 Insulin Detemir (Levemir) 4 units EVERY 12 HOURS SUBQ 11/16/18 21:00 12/09/18 08:59 11/17/18 08:37 Labetalol HCl (Normodyne) 200 mg Q8HR GT 11/09/18 06:00 12/09/18 05:59 11/17/18 05:26 Levetiracetam (Keppra) 1,500 mg Q12HR GT 11/09/18 09:00 12/09/18 08:59 11/17/18 08:28 Magnesium Hydroxide (Mom) 30 ml DAILY PRN GT Constipation 11/09/18 05:00 12/09/18 04:59 Magnesium Oxide (Mag-Ox 400mg) 400 mg EVERY 8 HOURS GT 11/09/18 14:00 12/09/18 08:59 11/17/18 05:25 Meropenem 1 gm/ Sodium Chloride 100 ml @ 200 mls/hr Q8HR IVPB 11/16/18 14:00 11/21/18 13:59 11/17/18 05:27 Ondansetron HCl (Zofran) 4 mg Q6H PRN GT Nausea & Vomiting 11/09/18 05:00 12/09/18 04:59 Phenobarbital (PHENobarbital) 60 mg BID GT 11/09/18 09:00 12/09/18 08:59 11/17/18 08:29 Phenytoin (Dilantin) 100 mg Q8HR GT 11/09/18 06:00 12/09/18 05:59 11/17/18 05:26 Polyethylene Glycol (Miralax) 17 gm DAILYPRN PRN GT Constipation 11/14/18 10:30 12/12/18 10:29 Potassium Phosphate 20 mm/ Sodium Chloride 281.6667 ml @ 46.944 m... ONCE ONCE IV 11/17/18 10:00 11/17/18 15:59 11/17/18 10:09 Potassium Phosphate 30 mm/ Sodium Chloride 285 ml @ 47.5 mls/hr ONCE ONCE IVPB 11/17/18 12:15 11/17/18 18:14 UNV Potassium Chloride 100 ml @ 50 mls/hr Q2H IVPB 11/17/18 09:00 11/17/18 12:59 11/17/18 11:03 Sennosides (Senokot) 8.6 mg EVERY 12 HOURS GT 11/09/18 21:00 12/09/18 08:59 11/17/18 08:29 Valproic Acid (Depakene) 500 mg EVERY 8 HOURS GT 11/09/18 06:00 12/09/18 05:59 11/17/18 05:25 Vancomycin HCl (Vanco rx to dose) 1 ea DAILY PRN MISC Per rx protocol 11/10/18 16:45 12/10/18 16:44 Vancomycin HCl 750 mg/Sodium Chloride 275 ml @ 183.333 mls/hr Q12HR@0800,1999 IVPB 11/16/18 20:00 11/21/18 19:59 11/17/18 08:00 Balbir Dejesus MD Nov 17, 2018 12:28
[2018-11-17] MEDS ORDERED: Albuterol/Ipratropium 3ml neb HHN PRN (12:30)
--- NOTE | 2018-11-17 13:41 | Surgery Progress Note ---
Surgery Progress Note Subjective Additional Comments no acute events comfortable stable exam unchanged labs ntoed Objective Last 24 Hour Vital Signs Date Time Temp Pulse Resp B/P (MAP) Pulse Ox O2 Delivery O2 Flow Rate FiO2 11/17/18 12:00 Mechanical Ventilator 11/17/18 12:00 30 11/17/18 12:00 99.0 93 19 130/69 (89) 100 11/17/18 10:50 84 18 30 11/17/18 08:40 87 16 30 11/17/18 08:29 98 137/81 11/17/18 08:00 98.6 98 19 137/81 (99) 100 11/17/18 08:00 Mechanical Ventilator 11/17/18 08:00 30 11/17/18 07:44 86 11/17/18 07:08 84 21 30 11/17/18 05:30 91 19 30 11/17/18 05:27 145/75 11/17/18 05:26 92 145/75 11/17/18 04:00 98.6 98 20 157/78 (104) 100 11/17/18 04:00 Mechanical Ventilator 11/17/18 04:00 30 11/17/18 04:00 93 11/17/18 03:30 89 18 30 11/17/18 01:30 90 21 30 11/17/18 00:00 Mechanical Ventilator 11/17/18 00:00 89 11/17/18 00:00 98.7 89 21 143/78 (99) 100 11/16/18 23:30 90 20 30 11/16/18 21:30 92 21 30 11/16/18 21:24 90 125/74 11/16/18 21:24 125/74 11/16/18 20:00 Mechanical Ventilator 11/16/18 20:00 99.0 90 20 122/65 (84) 100 11/16/18 20:00 30 11/16/18 19:36 89 11/16/18 19:24 90 22 30 11/16/18 17:03 95 20 30 11/16/18 16:00 99.6 96 25 128/72 (90) 100 11/16/18 16:00 Mechanical Ventilator 11/16/18 16:00 94 11/16/18 16:00 30 11/16/18 15:36 93 22 30 11/16/18 14:47 133/58 11/16/18 14:45 92 133/58 I&O Intake and Output 11/16/18 11/17/18 19:00 07:00 Intake Total 1075.000 ml 1220.000 ml Output Total 1000 ml Balance 75.000 ml 1220.000 ml IV Total 575.000 ml 475.000 ml Tube Feeding 380 ml 665 ml Other 120 ml 80 ml Output Urine Total 1000 ml # Bowel Movements 2 1 Dressing: saturated Wound: other Drains: other Cardiovascular: RSR Respiratory: decreased breath sounds Abdomen: soft, present bowel sounds, non-distended Extremities: no cyanosis, other Laboratory Tests Test 11/17/18 04:30 White Blood Count 13.4 K/UL (4.8-10.8) H Red Blood Count 3.54 M/UL (4.20-5.40) L Hemoglobin 8.9 G/DL (12.0-16.0) L Hematocrit 27.8 % (37.0-47.0) L Mean Corpuscular Volume 78 FL (80-99) L Mean Corpuscular Hemoglobin 25.0 PG (27.0-31.0) L Mean Corpuscular Hemoglobin Concent 31.9 G/DL (32.0-36.0) L Red Cell Distribution Width 23.2 % (11.6-14.8) H Platelet Count 610 K/UL (150-450) H Mean Platelet Volume 5.5 FL (6.5-10.1) L Neutrophils (%) (Auto) 78.8 % (45.0-75.0) H Lymphocytes (%) (Auto) 11.5 % (20.0-45.0) L Monocytes (%) (Auto) 5.8 % (1.0-10.0) Eosinophils (%) (Auto) 3.6 % (0.0-3.0) H Basophils (%) (Auto) 0.3 % (0.0-2.0) Sodium Level 140 MMOL/L (136-145) Potassium Level 3.1 MMOL/L (3.5-5.1) L Chloride Level 103 MMOL/L (98-107) Carbon Dioxide Level 33 MMOL/L (21-32) H Anion Gap 4 mmol/L (5-15) L Blood Urea Nitrogen 9 mg/dL (7-18) Creatinine 0.4 MG/DL (0.55-1.30) L Estimat Glomerular Filtration Rate mL/min (>60) Glucose Level 110 MG/DL (74-106) H Calcium Level 8.3 MG/DL (8.5-10.1) L Phosphorus Level 1.9 MG/DL (2.5-4.9) L Magnesium Level 2.0 MG/DL (1.8-2.4) Plan Problems: (1) Fever (2) Tongue abnormality Assessment & Plan: patients jaw clenched closed and tongue has been stuck for some time. tongue split from middle teeth and now in two. edema and unable to reduce keep tongue moist. apply lube jelly prn dryness. will monitor do not recommend surgical intervention for this current medical condition (3) Tracheostomy dependence (4) Sepsis Assessment & Plan: gb no stones 6mm polyp no acute surgical intervention planned trend labs DAILY ESTIMATED NEEDS: Needs based on Critical care, sepsis, wound 60kg adj 22-30 kcals/kg [id number] total kcals 1.25-2 g protein/kg 75-120 g total protein Fluid per MD, on lasix NUTRITION DIAGNOSIS: * Swallowing difficulty r/t respiratory status as evidenced by pt is vent dep via trach and PEG dep. * Increased kcal and pro needs r/t wound healing and sepsis as evidenced by pt w/ sacral and R heel wounds, febrile (Tmax 101.5). CURRENT TF: Jevity 1.2 @50 ml/hr x16 hrs ENTERAL NUTRITION RECOMMENDATIONS: Glucerna 1.2 @65ml/hr x18 hrs + Prosource x1 daily to provide 1170ml, 1404 kcal, 70g pro + 11g pro, 942 free H2O - REC TF CHANGE AND INCREASE TO BETTER MEET EST NEEDS - TF TO BE HELD FOR ONE HR BEFORE AND AFTER DILANTIN MEDS - START @20ML/HR, ADVANCE TOLERATED 15ML/HR Q4-6 HRS TO GOAL - FLUSH PER , HOB OVRE 30 DEGREES ADDITIONAL RECOMMENDATIONS: 1) CALIBRATED BED SCALE W/ ADDED P200 MATTRESS + PUMP 2) ON LASIX, MONITOR LYTES AND HYDRATION STATUS DAILY 3) TF TO RUN A MAX OF 18 HRS/DAY W/ DILANTIN TID PER PHARMACY 4) REC TF CHANGE TO CARB CONTROL FORMULA 5) WOUND CARE: ADD CHAYITO BID + VIT C 250MG DAILY (5) Fever (6) Decubitus skin ulcer Assessment & Plan: Pt presented on admission with full thickness sacral pressure injury.Base of wound is 20% necrotic , 80% slough. borders are macerated . Mild odor noted. (L)8.4cm x (W) 6.5cm. Periwound skin tone is darker without erythema,induration or elevation in skin temp. Both heels are non -blanchable and both are fluctuant when palpated. Tx.Plan: Clean wound with saline. Apply Therahoney. Aply Moisture Barrier paste periwound. Cover with Optifoam drsg. Change every 3 days and prn. Apply Cavilon Skin BArrier to both heels. Cover each heel with Optifoam drsg. Change every 7 days and prn. APM/DEIRDRE mattress overlay. Reposition at least every 2hours or as tolerated. Off-load heels with pillow. will follow with recs thank you Preet Hylton Nov 17, 2018 13:40
--- NOTE | 2018-11-17 14:14 | General Progress Note ---
Assessment/Plan Status: unchanged Assessment/Plan: Assessment/Plan Status: stable Assessment/Plan: 78-year-old female who is trach dependent who was [facility] in by [facility] for sepsis and found to have UTI and bacteremia. #Sepsis secondary to UTI, GPC Staph Epidermidis bacteremia, Line associated infection an E. Coli isolated from the cath tip- the patient arrived to the Hospital with PICC ID consult appreciate Rec Vancomycin and Meropenem started 11/16 ( Zosyn stopped) Pseudomonal pneumonia, UTI due to Enterococcus F, VRE colonized Remove PICC and place new line 11/13/18 Continue antibiotics per ID Repeat blood cultures 11/12/18 NGT noted Echo to eval for vegetation negative sputum cultures with pseudomonas Chest x-ray reviewed: Atelectasis # Transaminitis - trend lft's - GI consult, appreciate recs - ab us: reviewed - f/u hep panel #Elevated troponin secondary to sepsis versus ACS Cardiology consult, appreciate recs Medications per cardiology #Hypertension- improved Continue current medications, hydralazine as needed hypertension #Vent dependent Pulmonary consult, appreciate recs Vent management per pulmonary #Hypokalemia Replace, continue to monitor # Chronic tongue wound Supportive care On examination the patient has a sharp lower incisor present that is likely the culprit for the tongue laceration when she was intubated in the prior hospitalization at [facility] OMFS consultation Dr. Benavides completed ( no note left ) and I spoke with him over the phone after the visit. He does not recommend any surgery. ONLY bite block MOLT if available to decompress the tongue and get the remainder teeth out of the tongue way. Keep moisture in the lips and tongue. I updated Dr. Hylton today # History of mood disorder Seen by psychiatry and on Depakote. Level was checked # Seizure history - Discussed with Dr. Eric who knew the patient from [facility] and confirmed that she did have seizure activity and was on multiple AED regimen. - Will continue Depakote ( 28 level ) and (Phenytoin 4.3 ) - no active seizure activity at this time. Keep current dose. - Both Dr. Eric and Mariana not available to come to [facility] for consult and no acute need at this time. #Diabetes Mellitus - glucose noted in the 90-110's - Decrease Levemir to 4 units q 12 hours - Hb A1c level ordered # Disposition - SNF when cleared by ID. Still febrile. Time of note may not reflect time of patient encounter Pulsed reviewed: Full code Subjective ROS Limited/Unobtainable: Yes Allergies: Coded Allergies: Crayfish (Unverified Allergy, Unknown, 11/11/18) Uncoded Allergies: Crawfish (Allergy, Unknown, 11/09/18) Subjective non verbal Objective Last 24 Hour Vital Signs Date Time Temp Pulse Resp B/P (MAP) Pulse Ox O2 Delivery O2 Flow Rate FiO2 11/17/18 13:50 91 22 30 11/17/18 12:00 Mechanical Ventilator 11/17/18 12:00 30 11/17/18 12:00 99.0 93 19 130/69 (89) 100 11/17/18 10:50 84 18 30 11/17/18 08:40 87 16 30 11/17/18 08:29 98 137/81 11/17/18 08:00 98.6 98 19 137/81 (99) 100 11/17/18 08:00 Mechanical Ventilator 11/17/18 08:00 30 11/17/18 07:44 86 11/17/18 07:08 84 21 30 11/17/18 05:30 91 19 30 11/17/18 05:27 145/75 11/17/18 05:26 92 145/75 11/17/18 04:00 98.6 98 20 157/78 (104) 100 11/17/18 04:00 Mechanical Ventilator 11/17/18 04:00 30 11/17/18 04:00 93 11/17/18 03:30 89 18 30 11/17/18 01:30 90 21 30 11/17/18 00:00 Mechanical Ventilator 11/17/18 00:00 89 11/17/18 00:00 98.7 89 21 143/78 (99) 100 11/16/18 23:30 90 20 30 11/16/18 21:30 92 21 30 11/16/18 21:24 90 125/74 11/16/18 21:24 125/74 11/16/18 20:00 Mechanical Ventilator 11/16/18 20:00 99.0 90 20 122/65 (84) 100 11/16/18 20:00 30 11/16/18 19:36 89 11/16/18 19:24 90 22 30 11/16/18 17:03 95 20 30 11/16/18 16:00 99.6 96 25 128/72 (90) 100 11/16/18 16:00 Mechanical Ventilator 11/16/18 16:00 94 11/16/18 16:00 30 11/16/18 15:36 93 22 30 11/16/18 14:47 133/58 11/16/18 14:45 92 133/58 Intake and Output 11/16/18 11/17/18 19:00 07:00 Intake Total 1075.000 ml 1220.000 ml Output Total 1000 ml Balance 75.000 ml 1220.000 ml IV Total 575.000 ml 475.000 ml Tube Feeding 380 ml 665 ml Other 120 ml 80 ml Output Urine Total 1000 ml # Bowel Movements 2 1 Laboratory Tests 11/17/18 04:30: White Blood Count 13.4H, Red Blood Count 3.54L, Hemoglobin 8.9L, Hematocrit 27.8L, Mean Corpuscular Volume 78L, Mean Corpuscular Hemoglobin 25.0L, Mean Corpuscular Hemoglobin Concent 31.9L, Red Cell Distribution Width 23.2H, Platelet Count 610H, Mean Platelet Volume 5.5L, Neutrophils (%) (Auto) 78.8H, Lymphocytes (%) (Auto) 11.5L, Monocytes (%) (Auto) 5.8, Eosinophils (%) (Auto) 3.6H, Basophils (%) (Auto) 0.3, Sodium Level 140, Potassium Level 3.1L, Chloride Level 103, Carbon Dioxide Level 33H, Anion Gap 4L, Blood Urea Nitrogen 9, Creatinine 0.4L, Estimat Glomerular Filtration Rate , Glucose Level 110H, Calcium Level 8.3L, Phosphorus Level 1.9L, Magnesium Level 2.0 Height (Feet): 5 Height (Inches): 8.00 Weight (Pounds): 205 General Appearance: WD/WN, no apparent distress EENT: PERRL/EOMI Neck: non-tender Cardiovascular: normal peripheral pulses, normal rate Respiratory/Chest: chest wall non-tender, lungs clear Abdomen: normal bowel sounds Edema: other - oral edema and tongue swelling Neurologic: artist model II-XII grossly normal Florinda Treviño MD Nov 17, 2018 14:14
[2018-11-17 16:00] VITALS: BP 102/60
--- NOTE | 2018-11-17 16:15 | Hematology/Onc Progress Note ---
Assessment/Plan Assessment/Plan # Anemia of chronic disease due to underlying chronic medical issues, multifactorial --> Anemia workup has been reviewed and cw acd --> No evidence of hemolysis is noted, peripheral smear has been reviewed. --> Hgb goal >7. Transfuse prn. --> hgb trend 9.1-->8.9-->9-->8.9-->8.9 --> Epogen or iron at this time is not particularly indicated --> Medications have been reviewed --> low threshold for gi evaluation in case has occult + --> bone marrow biopsy is not indicated given the other more likely causes # Leukocytosis iwth Sepsis secondary to UTI, GPC Staph Epidermidis bacteremia, Line associated infection - patient arrived to the Hospital with PICC --> as per ID consult appreciate Rec --> Continue antibiotics per ID: Continue Zosyn and vancomycin, anti fungal added --> imaging noted # Transaminitis --> trend lft's --> GI consult, apprec recs --> ab us: reviewed # Elevated troponin secondary to sepsis versus ACS --> as per Cardiology consult, appreciate recs --> now better # Hypertension- improved --> sbp goal <150 # Vent dependent --> as per Pulmonary recs # Hypokalemia The timing of this note does not necessarily reflect the time of the patient was seen. GREATLY APPRECIATE CONSULTATION. Subjective Allergies: Coded Allergies: Crayfish (Unverified Allergy, Unknown, 11/11/18) Uncoded Allergies: Crawfish (Allergy, Unknown, 11/09/18) Subjective 11/14: no events to report, labs relatively stable, hgb 8.9, on vent 11/15: no bleeding, no chills, labs reviewed, no major changes 11/16: cxr-->bilateral interstitial edema, vs stable, on abx, on vent, contact isolation 11/17: labs reviewed, on abx, vs stable, on vent, no distress Objective Objective Current Medications Medications (Trade) Dose Ordered Sig/Lupe Route PRN Reason Start Time Stop Time Status Last Admin Dose Admin Acetaminophen (Tylenol) 650 mg Q4H PRN GT Mild Pain/Temp > 100.5 11/09/18 05:00 12/09/18 04:59 11/16/18 03:44 Albuterol/ Ipratropium (Albuterol/ Ipratropium) 3 ml Q4H PRN HHN Shortness of Breath 11/17/18 12:30 11/22/18 12:29 Amlodipine Besylate (Norvasc) 10 mg DAILY GT 11/09/18 09:00 12/09/18 08:59 11/17/18 08:29 Bisacodyl (Dulcolax) 10 mg DAILY PRN RECTAL Constipation 11/09/18 05:00 12/09/18 04:59 Calcium Carbonate (Tums) 500 mg EVERY 8 HOURS GT 11/09/18 14:00 12/09/18 08:59 11/17/18 14:25 Chlorhexidine Gluconate (Corazon-Hex 2%) 1 applic DAILY@199911/12/18 20:00 12/12/18 19:59 11/16/18 20:28 Dextrose (Dextrose 50%) 25 ml Q30M PRN IV Hypoglycemia 11/09/18 04:45 12/09/18 04:44 Dextrose (Dextrose 50%) 50 ml Q30M PRN IV Hypoglycemia 11/09/18 04:45 12/09/18 04:44 11/09/18 09:09 Enoxaparin Sodium (Lovenox) 40 mg DAILY SUBQ 11/09/18 09:00 12/09/18 08:59 11/17/18 08:37 Famotidine (Pepcid) 20 mg EVERY 12 HOURS GT 11/09/18 21:00 12/09/18 08:59 11/17/18 08:29 Furosemide (Lasix) 40 mg EVERY 12 HOURS GT 11/09/18 09:00 12/09/18 08:59 11/17/18 08:29 Hydralazine HCl (Apresoline) 5 mg EVERY 8 HOURS GT 11/09/18 06:00 12/09/18 05:59 11/17/18 14:26 Insulin Aspart (NovoLOG) Q6HR SUBQ 11/09/18 06:00 12/09/18 05:59 11/17/18 12:13 Insulin Detemir (Levemir) 4 units EVERY 12 HOURS SUBQ 11/16/18 21:00 12/09/18 08:59 11/17/18 08:37 Labetalol HCl (Normodyne) 200 mg Q8HR GT 11/09/18 06:00 12/09/18 05:59 11/17/18 14:25 Levetiracetam (Keppra) 1,500 mg Q12HR GT 11/09/18 09:00 12/09/18 08:59 11/17/18 08:28 Magnesium Hydroxide (Mom) 30 ml DAILY PRN GT Constipation 11/09/18 05:00 12/09/18 04:59 Magnesium Oxide (Mag-Ox 400mg) 400 mg EVERY 8 HOURS GT 11/09/18 14:00 12/09/18 08:59 11/17/18 14:25 Meropenem 1 gm/ Sodium Chloride 100 ml @ 200 mls/hr Q8HR IVPB 11/16/18 14:00 11/21/18 13:59 11/17/18 14:20 Ondansetron HCl (Zofran) 4 mg Q6H PRN GT Nausea & Vomiting 11/09/18 05:00 12/09/18 04:59 Phenobarbital (PHENobarbital) 60 mg BID GT 11/09/18 09:00 12/09/18 08:59 11/17/18 08:29 Phenytoin (Dilantin) 100 mg Q8HR GT 11/09/18 06:00 12/09/18 05:59 11/17/18 14:25 Polyethylene Glycol (Miralax) 17 gm DAILYPRN PRN GT Constipation 11/14/18 10:30 12/12/18 10:29 Sennosides (Senokot) 8.6 mg EVERY 12 HOURS GT 11/09/18 21:00 12/09/18 08:59 11/17/18 08:29 Valproic Acid (Depakene) 500 mg EVERY 8 HOURS GT 11/09/18 06:00 12/09/18 05:59 11/17/18 14:25 Vancomycin HCl (Vanco rx to dose) 1 ea DAILY PRN MISC Per rx protocol 11/10/18 16:45 12/10/18 16:44 Vancomycin HCl 750 mg/Sodium Chloride 275 ml @ 183.333 mls/hr Q12HR@0800,2000 IVPB 11/16/18 20:00 11/21/18 19:59 11/17/18 08:00 Last 24 Hour Vital Signs Date Time Temp Pulse Resp B/P (MAP) Pulse Ox O2 Delivery O2 Flow Rate FiO2 11/17/18 15:33 90 16 30 11/17/18 15:29 86 11/17/18 14:26 130/69 11/17/18 14:25 91 130/69 11/17/18 13:50 91 22 30 11/17/18 12:00 Mechanical Ventilator 11/17/18 12:00 30 11/17/18 12:00 99.0 93 19 130/69 (89) 100 11/17/18 11:40 88 11/17/18 10:50 84 18 30 11/17/18 08:40 87 16 30 11/17/18 08:29 98 137/81 11/17/18 08:00 98.6 98 19 137/81 (99) 100 11/17/18 08:00 Mechanical Ventilator 11/17/18 08:00 30 11/17/18 07:44 86 11/17/18 07:08 84 21 30 11/17/18 05:30 91 19 30 11/17/18 05:27 145/75 11/17/18 05:26 92 145/75 11/17/18 04:00 98.6 98 20 157/78 (104) 100 11/17/18 04:00 Mechanical Ventilator 11/17/18 04:00 30 11/17/18 04:00 93 11/17/18 03:30 89 18 30 11/17/18 01:30 90 21 30 11/17/18 00:00 Mechanical Ventilator 11/17/18 00:00 89 11/17/18 00:00 98.7 89 21 143/78 (99) 100 11/16/18 23:30 90 20 30 11/16/18 21:30 92 21 30 11/16/18 21:24 90 125/74 11/16/18 21:24 125/74 11/16/18 20:00 Mechanical Ventilator 11/16/18 20:00 99.0 90 20 122/65 (84) 100 11/16/18 20:00 30 11/16/18 19:36 89 11/16/18 19:24 90 22 30 11/16/18 17:03 95 20 30 11/16/18 16:00 99.6 96 25 128/72 (90) 100 11/16/18 16:00 Mechanical Ventilator 11/16/18 16:00 94 11/16/18 16:00 30 11/16/18 15:36 93 22 30 11/16/18 14:47 133/58 11/16/18 14:45 92 133/58 11/16/18 12:43 92 26 30 11/16/18 12:00 99.0 88 22 133/58 (83) 100 11/16/18 12:00 30 11/16/18 12:00 Mechanical Ventilator 11/16/18 11:43 88 11/16/18 11:40 91 25 30 11/16/18 08:55 84 23 30 11/16/18 08:23 83 129/65 11/16/18 08:00 Mechanical Ventilator 11/16/18 08:00 99.0 83 20 129/65 (86) 100 11/16/18 08:00 30 11/16/18 07:48 82 20 30 11/16/18 07:36 83 11/16/18 06:00 112/61 11/16/18 05:29 89 20 30 11/16/18 05:17 91 123/54 11/16/18 04:14 99.8 11/16/18 04:14 99.8 11/16/18 04:00 91 11/16/18 04:00 Mechanical Ventilator 11/16/18 04:00 30 11/16/18 03:30 101.8 91 23 123/54 (77) 100 11/16/18 03:10 87 19 30 11/16/18 01:08 88 22 30 11/16/18 00:00 99.1 88 23 139/58 (85) 98 11/16/18 00:00 Mechanical Ventilator 11/16/18 00:00 30 11/16/18 00:00 85 11/15/18 23:09 85 23 30 11/15/18 22:00 113/50 11/15/18 21:27 84 20 98 Mechanical Ventilator 30 11/15/18 21:27 85 19 30 11/15/18 21:16 133/57 (82) 11/15/18 21:15 88 133/57 11/15/18 20:00 Mechanical Ventilator 11/15/18 20:00 30 11/15/18 20:00 92 11/15/18 20:00 98.2 91 21 100/50 (67) 98 8/28/19 18:58 92 23 30 11/15/18 17:27 107 23 30 11/15/18 17:00 100.7 100 24 145/81 (102) 100 Intake and Output 11/16/18 11/17/18 19:00 07:00 Intake Total 1075.000 ml 1220.000 ml Output Total 1000 ml Balance 75.000 ml 1220.000 ml IV Total 575.000 ml 475.000 ml Tube Feeding 380 ml 665 ml Other 120 ml 80 ml Output Urine Total 1000 ml # Bowel Movements 2 1 Labs Test 11/15/18 04:30 11/15/18 19:15 11/16/18 04:00 11/16/18 12:25 White Blood Count 11.8 K/UL (4.8-10.8) 11.0 K/UL (4.8-10.8) Red Blood Count 3.64 M/UL (4.20-5.40) 3.52 M/UL (4.20-5.40) Hemoglobin 9.0 G/DL (12.0-16.0) 8.9 G/DL (12.0-16.0) Hematocrit 28.4 % (37.0-47.0) 28.2 % (37.0-47.0) Mean Corpuscular Volume 78 FL (80-99) 80 FL (80-99) Mean Corpuscular Hemoglobin 24.8 PG (27.0-31.0) 25.2 PG (27.0-31.0) Mean Corpuscular Hemoglobin Concent 31.8 G/DL (32.0-36.0) 31.5 G/DL (32.0-36.0) Red Cell Distribution Width 23.0 % (11.6-14.8) 23.7 % (11.6-14.8) Platelet Count 550 K/UL (150-450) 537 K/UL (150-450) Mean Platelet Volume 5.4 FL (6.5-10.1) 4.9 FL (6.5-10.1) Neutrophils (%) (Auto) 76.8 % (45.0-75.0) 78.6 % (45.0-75.0) Lymphocytes (%) (Auto) 8.0 % (20.0-45.0) 8.3 % (20.0-45.0) Monocytes (%) (Auto) 7.3 % (1.0-10.0) 6.2 % (1.0-10.0) Eosinophils (%) (Auto) 7.3 % (0.0-3.0) 5.7 % (0.0-3.0) Basophils (%) (Auto) 0.6 % (0.0-2.0) 1.1 % (0.0-2.0) Sodium Level 141 MMOL/L (136-145) 140 MMOL/L (136-145) Potassium Level 3.6 MMOL/L (3.5-5.1) 3.4 MMOL/L (3.5-5.1) Chloride Level 103 MMOL/L (98-107) 102 MMOL/L (98-107) Carbon Dioxide Level 31 MMOL/L (21-32) 31 MMOL/L (21-32) Anion Gap 8 mmol/L (5-15) 8 mmol/L (5-15) Blood Urea Nitrogen 14 mg/dL (7-18) 13 mg/dL (7-18) Creatinine 0.4 MG/DL (0.55-1.30) 0.4 MG/DL (0.55-1.30) Estimat Glomerular Filtration Rate mL/min (>60) mL/min (>60) Glucose Level 112 MG/DL (74-106) 105 MG/DL (74-106) Calcium Level 8.4 MG/DL (8.5-10.1) 8.1 MG/DL (8.5-10.1) Phosphorus Level 2.5 MG/DL (2.5-4.9) Magnesium Level 2.0 MG/DL (1.8-2.4) Total Bilirubin 0.2 MG/DL (0.2-1.0) 0.2 MG/DL (0.2-1.0) Aspartate Amino Transf (AST/SGOT) 77 U/L (15-37) 88 U/L (15-37) Alanine Aminotransferase (ALT/SGPT) 84 U/L (12-78) 84 U/L (12-78) Alkaline Phosphatase 196 U/L (46-116) 205 U/L (46-116) Total Protein 5.6 G/DL (6.4-8.2) 5.3 G/DL (6.4-8.2) Albumin 1.3 G/DL (3.4-5.0) 1.1 G/DL (3.4-5.0) Globulin 4.3 g/dL 4.2 g/dL Albumin/Globulin Ratio 0.3 (1.0-2.7) 0.3 (1.0-2.7) Vancomycin Level Trough 15.9 ug/mL (5.0-12.0) Hemoglobin A1c 5.6 % (4.3-6.0) Phenytoin (Dilantin) Level 4.3 ug/mL (10-20) Valproic Acid (Depakene) Level 28 MCG/ML (50-100) Test 11/16/18 12:30 11/17/18 04:30 Urine Color Pale yellow Urine Appearance Clear Urine pH 5 (4.5-8.0) Urine Specific Knott 1.010 (1.005-1.035) Urine Protein 1+ (NEGATIVE) Urine Glucose (UA) Negative (NEGATIVE) Urine Ketones Negative (NEGATIVE) Urine Blood 3+ (NEGATIVE) Urine Nitrite Negative (NEGATIVE) Urine Bilirubin Negative (NEGATIVE) Urine Urobilinogen Normal MG/DL (0.0-1.0) Urine Leukocyte Esterase 2+ (NEGATIVE) Urine RBC 2-4 /HPF (0 - 2) Urine WBC 10-15 /HPF (0 - 2) Urine Squamous Epithelial Cells None /LPF (NONE/OCC) Urine Bacteria Occasional /HPF (NONE) Urine Yeast Moderate /HPF (NONE) White Blood Count 13.4 K/UL (4.8-10.8) Red Blood Count 3.54 M/UL (4.20-5.40) Hemoglobin 8.9 G/DL (12.0-16.0) Hematocrit 27.8 % (37.0-47.0) Mean Corpuscular Volume 78 FL (80-99) Mean Corpuscular Hemoglobin 25.0 PG (27.0-31.0) Mean Corpuscular Hemoglobin Concent 31.9 G/DL (32.0-36.0) Red Cell Distribution Width 23.2 % (11.6-14.8) Platelet Count 610 K/UL (150-450) Mean Platelet Volume 5.5 FL (6.5-10.1) Neutrophils (%) (Auto) 78.8 % (45.0-75.0) Lymphocytes (%) (Auto) 11.5 % (20.0-45.0) Monocytes (%) (Auto) 5.8 % (1.0-10.0) Eosinophils (%) (Auto) 3.6 % (0.0-3.0) Basophils (%) (Auto) 0.3 % (0.0-2.0) Sodium Level 140 MMOL/L (136-145) Potassium Level 3.1 MMOL/L (3.5-5.1) Chloride Level 103 MMOL/L (98-107) Carbon Dioxide Level 33 MMOL/L (21-32) Anion Gap 4 mmol/L (5-15) Blood Urea Nitrogen 9 mg/dL (7-18) Creatinine 0.4 MG/DL (0.55-1.30) Estimat Glomerular Filtration Rate mL/min (>60) Glucose Level 110 MG/DL (74-106) Calcium Level 8.3 MG/DL (8.5-10.1) Phosphorus Level 1.9 MG/DL (2.5-4.9) Magnesium Level 2.0 MG/DL (1.8-2.4) Height (Feet): 5 Height (Inches): 8.00 Weight (Pounds): 205 Objective Physical Exam: Vitals: reviewed Gen: NAD HEENT: normocephalic, atraumatic Neck: non-tender, normal alignment ++ vent Respiratory: normal breath sounds bilaterally CV: normal peripheral pulses, rrr Abdomen: normal bowel sounds, soft, nontender +gtube Extremities: normal range of motion Yonathan Hernandez MD Nov 17, 2018 16:15
--- NOTE | 2018-11-17 19:00 | NUR ---
RESPIRATORY NOTE: pt recieved on AC [id number] +5, no SOB or discomfort noted, trach intact, bandage on right side of trach, sx prn, alarms on x audible, vent plugged in red outlet, will continue to monitor the pt.
--- NOTE | 2018-11-17 19:12 | NUR ---
HAND-OFF: Report given to CHARLEE Navarro and Marsha Law RN. Patient in stable condition.
--- NOTE | 2018-11-17 19:15 | NUR ---
NURSE NOTES: received pt from Gertrudis DESHPANDE., pt is AO x0, vent dependent. no respiratory distress noted and no SOB. no reports for dysrhythmia from last shift. call light within reach. bed is lowest position, locked, and alarmed. will continue with plan of care.
[2018-11-17 20:00] VITALS: BP 138/75
[2018-11-17] MEDS: Dyna-Hex 2% Top Sol 2oz TOPIC SCH (20:28)
[2018-11-17] MEDS: Acetaminophen 650mg/20.3ml GT PRN (21:11)
--- NOTE | 2018-11-17 21:11 | NUR ---
NURSE NOTES: pt temperature elevated to 101.2, so applied cooling measures with ice packs. and administered Tyenol 650mg via Gtube. will continue to monitor pt.
--- NOTE | 2018-11-17 21:41 | NUR ---
NURSE NOTES: pt's temperature went down to 99.5 F. call light within reach. bed lowest position, alarm is on, locked. will keep monitor the pt.
[2018-11-18] VITALS: BP 114/66
[2018-11-18 04:00] VITALS: BP 148/88
[2018-11-18] MEDS: NovoLOG Insulin Flexpen SUBQ SCH ×4 (05:03→23:33)
[2018-11-18] MEDS: Valproic Acid 250mg/5ml Liquid GT SCH ×3 (05:06→21:35)
[2018-11-18] MEDS: Phenytoin Susp 100mg/4ml GT SCH ×3 (05:06→21:36)
[2018-11-18] MEDS: Magnesium Oxide 400mg tab GT SCH ×3 (05:06→21:35)
[2018-11-18] MEDS: HydrALAZINE 10mg Tab GT SCH ×3 (05:07→21:39)
[2018-11-18] MEDS: Tums 500mg GT SCH ×3 (05:07→21:35)
[2018-11-18] MEDS: Labetalol 200mg tab GT SCH ×3 (05:07→21:35)
[2018-11-18 05:17] LABS: BASOPHILS % (AUTO) 0.5 % (0.0-2.0); EOSINOPHILS % (AUTO) 3.6 % (0.0-3.0); HEMATOCRIT 28.2 % (37.0-47.0); HEMOGLOBIN 8.9 G/DL (12.0-16.0); LYMPHOCYTES % (AUTO) 10.8 % (20.0-45.0); MEAN CORPUSCULAR VOLUME 79 FL (80-99); MONOCYTES % (AUTO) 5.8 % (1.0-10.0); NEUTROPHILS % (AUTO) 79.2 % (45.0-75.0); PLATELET COUNT 641 K/UL (150-450); RED BLOOD COUNT 3.57 M/UL (4.20-5.40); RED CELL DISTRIBUTION WIDTH 23.6 % (11.6-14.8); WHITE BLOOD COUNT 13.9 K/UL (4.8-10.8)
[2018-11-18 06:06] LABS: ALANINE AMINOTRANSFERASE 135 U/L (12-78); ALBUMIN 1.2 G/DL (3.4-5.0); ALBUMIN/GLOBULIN RATIO 0.3 (1.0-2.7); ALKALINE PHOSPHATASE 249 U/L (46-116); ANION GAP 3 mmol/L (5-15); ASPARTATE AMINO TRANSFERASE 172 U/L (15-37); BILIRUBIN,TOTAL 0.2 MG/DL (0.2-1.0); BLOOD UREA NITROGEN 13 mg/dL (7-18); CALCIUM 8.2 MG/DL (8.5-10.1); CARBON DIOXIDE 33 MMOL/L (21-32); CHLORIDE 103 MMOL/L (98-107); CREATININE 0.4 MG/DL (0.55-1.30); PHOSPHORUS 2.5 MG/DL (2.5-4.9); POTASSIUM 4.2 MMOL/L (3.5-5.1); SODIUM 139 MMOL/L (136-145)
--- NOTE | 2018-11-18 07:00 | NUR ---
RESPIRATORY NOTES: Received Patient on Vent settings ACVC 14, VT 375, Fio2 30%, PEEP +5. Patient currently trached with a Shiley 8 tracheostomy tube, secured by trache ties. Patient obtundent. Breath sounds are bilateral rhonchi throughout both lung cardona. Suctioned small amount of clear secretions Q2 and PRN. Vent plugged into red outlet. Alarms are on and audible. Will continue to monitor throughout the day.
--- NOTE | 2018-11-18 07:24 | NUR ---
NURSE NOTES: Received bedside report from Rosalva RN. Pt. in bed, non-verbal, obtunded. No sign of distress. On mech. vent with setting of AC14/VT375/FiO2 of 30%/P5. No grimacing noted. PICC line at right upper arm with 2 lumen in placed patent/intact. HOB elevated at all times. On GTF Glucerna 1.2 @ 65cc/hr. in placed patent/intact. Tolerating well. Bed in low position, locked. Call light within reach. Will cont. to monitor.
--- NOTE | 2018-11-18 07:25 | NUR ---
HAND-OFF: Report given to Uzma DESHPANDE.
--- NOTE | 2018-11-18 07:27 | General Progress Note ---
Assessment/Plan Status: unchanged Assessment/Plan: Assessment - Iron deficiency anemia - abnormal LFT - ? meds, passive congestion - dysphagia, s/p GT - Resp, failure, s/p Trach - hepatitis panel negative Recommendations - Continue TF - Monitor LFT - - IV Iron - follow CBC - Conservative approach given poor health Subjective ROS Limited/Unobtainable: No Allergies: Coded Allergies: Crayfish (Unverified Allergy, Unknown, 11/11/18) Uncoded Allergies: Crawfish (Allergy, Unknown, 11/09/18) Subjective fever last night had BM Objective Last 24 Hour Vital Signs Date Time Temp Pulse Resp B/P (MAP) Pulse Ox O2 Delivery O2 Flow Rate FiO2 11/18/18 05:29 90 23 30 11/18/18 05:07 93 138/70 11/18/18 05:07 138/70 11/18/18 04:00 97.8 98 21 148/88 (108) 100 11/18/18 04:00 30 11/18/18 04:00 Mechanical Ventilator 11/18/18 03:52 92 11/18/18 03:25 91 23 30 11/18/18 01:26 84 20 30 11/18/18 00:00 87 11/18/18 00:00 97.8 98 20 114/66 (82) 100 11/18/18 00:00 Mechanical Ventilator 11/17/18 22:45 88 20 30 11/17/18 22:00 138/74 11/17/18 21:59 97 138/74 11/17/18 21:41 99.5 11/17/18 21:29 96 21 30 11/17/18 20:00 30 11/17/18 20:00 100.2 98 19 138/75 (96) 99 11/17/18 20:00 Mechanical Ventilator 11/17/18 19:53 98 11/17/18 18:40 101 23 30 11/17/18 17:16 86 19 30 11/17/18 16:00 99.1 87 19 102/60 (74) 100 11/17/18 16:00 30 11/17/18 16:00 Mechanical Ventilator 11/17/18 15:33 90 16 30 11/17/18 15:29 86 11/17/18 14:26 130/69 11/17/18 14:25 91 130/69 11/17/18 13:50 91 22 30 11/17/18 12:00 Mechanical Ventilator 11/17/18 12:00 30 11/17/18 12:00 99.0 93 19 130/69 (89) 100 11/17/18 11:40 88 11/17/18 10:50 84 18 30 11/17/18 08:40 87 16 30 11/17/18 08:29 98 137/81 11/17/18 08:00 98.6 98 19 137/81 (99) 100 11/17/18 08:00 Mechanical Ventilator 11/17/18 08:00 30 11/17/18 07:44 86 Intake and Output 11/17/18 11/18/18 18:59 06:59 Intake Total 1444.720 ml 1056.1106 ml Output Total 700 ml 650 ml Balance 744.720 ml 406.1106 ml Intake Free Water 50 ml 120 ml IV Total 809.720 ml 481.1106 ml Tube Feeding 585 ml 455 ml Output Urine Total 700 ml 650 ml # Bowel Movements 2 2 Laboratory Tests 11/18/18 03:30: White Blood Count 13.9H, Red Blood Count 3.57L, Hemoglobin 8.9L, Hematocrit 28.2L, Mean Corpuscular Volume 79L, Mean Corpuscular Hemoglobin 24.9L, Mean Corpuscular Hemoglobin Concent 31.4L, Red Cell Distribution Width 23.6H, Platelet Count 641H, Mean Platelet Volume 5.4L, Neutrophils (%) (Auto) 79.2H, Lymphocytes (%) (Auto) 10.8L, Monocytes (%) (Auto) 5.8, Eosinophils (%) (Auto) 3.6H, Basophils (%) (Auto) 0.5, Sodium Level 139, Potassium Level 4.2, Chloride Level 103, Carbon Dioxide Level 33H, Anion Gap 3L, Blood Urea Nitrogen 13, Creatinine 0.4L, Estimat Glomerular Filtration Rate , Glucose Level 99, Calcium Level 8.2L, Phosphorus Level 2.5, Magnesium Level 1.9, Total Bilirubin 0.2, Aspartate Amino Transf (AST/SGOT) 172H, Alanine Aminotransferase (ALT/SGPT) 135H , Alkaline Phosphatase 249H, Total Protein 5.9L, Albumin 1.2L, Globulin 4.7, Albumin/Globulin Ratio 0.3L Height (Feet): 5 Height (Inches): 8.00 Weight (Pounds): 205 General Appearance: no apparent distress EENT: normal ENT inspection Neck: supple Cardiovascular: normal rate Respiratory/Chest: decreased breath sounds Abdomen: normal bowel sounds, non tender, soft Extremities: non-tender Casper Humphries MD Nov 18, 2018 07:26
[2018-11-18 08:00] VITALS: BP 135/74
[2018-11-18] MEDS: Sennosides 8.6mg tab GT SCH ×2 (08:30→20:13)
[2018-11-18] MEDS: Furosemide 40mg tab GT SCH ×2 (08:30→20:20)
[2018-11-18] MEDS: PHENobarbital Elixir 30mg/7.5ml GT SCH ×2 (08:31→17:27)
[2018-11-18] MEDS: Acetaminophen 650mg/20.3ml GT PRN ×2 (08:31→17:30)
[2018-11-18] MEDS: levETIRAcetam 500mg/5ml Liquid GT SCH ×2 (08:31→20:12)
[2018-11-18] MEDS: Enoxaparin 40mg Inj SUBQ SCH (08:33)
[2018-11-18] MEDS: Vancomycin 750 MG in NS 275 ML IVPB SCH ×2 (08:38→20:15)
[2018-11-18] MEDS: Levemir Flexpen SUBQ SCH ×2 (08:40→20:27)
--- NOTE | 2018-11-18 11:55 | Hematology/Onc Progress Note ---
Assessment/Plan Assessment/Plan # Anemia of chronic disease due to underlying chronic medical issues, multifactorial --> Anemia workup has been reviewed and cw acd --> No evidence of hemolysis is noted, peripheral smear has been reviewed. --> Hgb goal >7. Transfuse prn. --> hgb trend 9.1-->8.9-->9-->8.9-->8.9 --> Epogen or iron indication prn --> Medications have been reviewed --> low threshold for gi evaluation in case has occult + --> bone marrow biopsy is not indicated given the other more likely causes # Leukocytosis iwth Sepsis secondary to UTI, GPC Staph Epidermidis bacteremia, Line associated infection - patient arrived to the Hospital with PICC --> as per ID consult appreciate Rec --> Continue antibiotics per ID: Continue Zosyn and vancomycin, anti fungal added--> kaykay/vanc --> imaging noted # Thrombocytosis is likely due to underlying reactive process --> if doesn't improve send off jak2 --> plt count 641k # Transaminitis --> trend lft's --> GI consult, apprec recs --> ab us: reviewed # Elevated troponin secondary to sepsis versus ACS --> as per Cardiology consult, appreciate recs --> now better # Hypertension- improved --> sbp goal <150 # 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 GREATLY APPRECIATE CONSULTATION. Subjective Constitutional: Denies: no symptoms, chills, fever, malaise, weakness, other HEENT: Denies: no symptoms, eye pain, blurred vision, tearing, double vision, ear pain, ear discharge, nose pain, nose congestion, throat pain, throat swelling, mouth pain, mouth swelling, other Cardiovascular: Denies: no symptoms, chest pain, edema, irregular heart rate, lightheadedness, palpitations, syncope, other Respiratory: Denies: no symptoms, cough, shortness of breath, SOB with excertion, SOB at rest, sputum, wheezing, other Gastrointestinal/Abdominal: Denies: no symptoms, abdomen distended, abdominal pain, black stools, tarry stools, blood in stool, constipated, diarrhea, difficulty swallowing, nausea, poor appetite, poor fluid intake, rectal bleeding , vomiting, other Genitourinary: Denies: no symptoms, burning, discharge, frequency, flank pain, hematuria, incontinence, pain, urgency, other Neurologic/Psychiatric: Denies: no symptoms, anxiety, depressed, emotional problems, headache, numbness, paresthesia, pre-existing deficit, seizure, tingling, tremors, weakness, other Endocrine: Denies: no symptoms, excessive sweating, flushing, intolerance to cold, intolerance to heat, increased hunger, increased thirst, increased urine, unexplained weight gain, unexplained weight loss, other Allergies: Coded Allergies: Crayfish (Unverified Allergy, Unknown, 11/11/18) Uncoded Allergies: Crawfish (Allergy, Unknown, 11/09/18) Subjective 11/14: no events to report, labs relatively stable, hgb 8.9, on vent 11/15: no bleeding, no chills, labs reviewed, no major changes 11/16: cxr-->bilateral interstitial edema, vs stable, on abx, on vent, contact isolation 11/17: labs reviewed, on abx, vs stable, on vent, no distress 11/18: remains on gtube feeds, is on vent, on kaykay/vanc Objective Objective Current Medications Medications (Trade) Dose Ordered Sig/Lupe Route PRN Reason Start Time Stop Time Status Last Admin Dose Admin Acetaminophen (Tylenol) 650 mg Q4H PRN GT Mild Pain/Temp > 100.5 11/09/18 05:00 12/09/18 04:59 11/18/18 08:31 Albuterol/ Ipratropium (Albuterol/ Ipratropium) 3 ml Q4H PRN HHN Shortness of Breath 11/17/18 12:30 11/22/18 12:29 Amlodipine Besylate (Norvasc) 10 mg DAILY GT 11/09/18 09:00 12/09/18 08:59 11/18/18 08:30 Bisacodyl (Dulcolax) 10 mg DAILY PRN RECTAL Constipation 11/09/18 05:00 12/09/18 04:59 Calcium Carbonate (Tums) 500 mg EVERY 8 HOURS GT 11/09/18 14:00 12/09/18 08:59 11/18/18 05:07 Chlorhexidine Gluconate (Corazon-Hex 2%) 1 applic DAILY@2000 TOPIC 11/12/18 20:00 12/12/18 19:59 11/17/18 20:28 Dextrose (Dextrose 50%) 25 ml Q30M PRN IV Hypoglycemia 11/09/18 04:45 12/09/18 04:44 Dextrose (Dextrose 50%) 50 ml Q30M PRN IV Hypoglycemia 11/09/18 04:45 12/09/18 04:44 11/09/18 09:09 Enoxaparin Sodium (Lovenox) 40 mg DAILY SUBQ 11/09/18 09:00 12/09/18 08:59 11/18/18 08:33 Famotidine (Pepcid) 20 mg EVERY 12 HOURS GT 11/09/18 21:00 12/09/18 08:59 11/18/18 08:30 Furosemide (Lasix) 40 mg EVERY 12 HOURS GT 11/09/18 09:00 12/09/18 08:59 11/18/18 08:30 Hydralazine HCl (Apresoline) 5 mg EVERY 8 HOURS GT 11/09/18 06:00 12/09/18 05:59 11/18/18 05:07 Insulin Aspart (NovoLOG) Q6HR SUBQ 11/09/18 06:00 12/09/18 05:59 11/17/18 18:10 Insulin Detemir (Levemir) 4 units EVERY 12 HOURS SUBQ 11/16/18 21:00 12/09/18 08:59 11/18/18 08:40 Labetalol HCl (Normodyne) 200 mg Q8HR GT 11/09/18 06:00 12/09/18 05:59 11/18/18 05:07 Levetiracetam (Keppra) 1,500 mg Q12HR GT 11/09/18 09:00 12/09/18 08:59 11/18/18 08:31 Magnesium Hydroxide (Mom) 30 ml DAILY PRN GT Constipation 11/09/18 05:00 12/09/18 04:59 Magnesium Oxide (Mag-Ox 400mg) 400 mg EVERY 8 HOURS GT 11/09/18 14:00 12/09/18 08:59 11/18/18 05:06 Meropenem 1 gm/ Sodium Chloride 100 ml @ 200 mls/hr Q8HR IVPB 11/16/18 14:00 11/21/18 13:59 11/18/18 05:04 Ondansetron HCl (Zofran) 4 mg Q6H PRN GT Nausea & Vomiting 11/09/18 05:00 12/09/18 04:59 Phenobarbital (PHENobarbital) 60 mg BID GT 11/09/18 09:00 12/09/18 08:59 11/18/18 08:31 Phenytoin (Dilantin) 100 mg Q8HR GT 11/09/18 06:00 12/09/18 05:59 11/18/18 05:06 Polyethylene Glycol (Miralax) 17 gm DAILYPRN PRN GT Constipation 11/14/18 10:30 12/12/18 10:29 Sennosides (Senokot) 8.6 mg EVERY 12 HOURS GT 11/09/18 21:00 12/09/18 08:59 11/18/18 08:30 Valproic Acid (Depakene) 500 mg EVERY 8 HOURS GT 11/09/18 06:00 12/09/18 05:59 11/18/18 05:06 Vancomycin HCl (Vanco rx to dose) 1 ea DAILY PRN MISC Per rx protocol 11/10/18 16:45 12/10/18 16:44 Vancomycin HCl 750 mg/Sodium Chloride 275 ml @ 183.333 mls/hr Q12HR@0800,2000 IVPB 11/16/18 20:00 11/21/18 19:59 11/18/18 08:38 Last 24 Hour Vital Signs Date Time Temp Pulse Resp B/P (MAP) Pulse Ox O2 Delivery O2 Flow Rate FiO2 11/18/18 11:06 89 20 30 11/18/18 09:24 91 21 30 11/18/18 09:01 99.5 11/18/18 08:30 92 135/74 11/18/18 08:00 30 11/18/18 08:00 Mechanical Ventilator 11/18/18 08:00 100.8 92 20 135/74 (94) 100 11/18/18 07:51 90 11/18/18 07:28 89 17 30 11/18/18 05:29 90 23 30 11/18/18 05:07 93 138/70 11/18/18 05:07 138/70 11/18/18 04:00 97.8 98 21 148/88 (108) 100 11/18/18 04:00 30 11/18/18 04:00 Mechanical Ventilator 11/18/18 03:52 92 11/18/18 03:25 91 23 30 11/18/18 01:26 84 20 30 11/18/18 00:00 87 11/18/18 00:00 97.8 98 20 114/66 (82) 100 11/18/18 00:00 Mechanical Ventilator 11/17/18 22:45 88 20 30 11/17/18 22:00 138/74 11/17/18 21:59 97 138/74 11/17/18 21:29 96 21 30 11/17/18 20:00 30 11/17/18 20:00 100.2 98 19 138/75 (96) 99 11/17/18 20:00 Mechanical Ventilator 11/17/18 19:53 98 11/17/18 18:40 101 23 30 11/17/18 17:16 86 19 30 11/17/18 16:00 99.1 87 19 102/60 (74) 100 11/17/18 16:00 30 11/17/18 16:00 Mechanical Ventilator 11/17/18 15:33 90 16 30 11/17/18 15:29 86 11/17/18 14:26 130/69 11/17/18 14:25 91 130/69 11/17/18 13:50 91 22 30 11/17/18 12:00 Mechanical Ventilator 11/17/18 12:00 30 11/17/18 12:00 99.0 93 19 130/69 (89) 100 11/17/18 11:40 88 11/17/18 10:50 84 18 30 11/17/18 08:40 87 16 30 11/17/18 08:29 98 137/81 11/17/18 08:00 98.6 98 19 137/81 (99) 100 11/17/18 08:00 Mechanical Ventilator 11/17/18 08:00 30 11/17/18 07:44 86 11/17/18 07:08 84 21 30 11/17/18 05:30 91 19 30 11/17/18 05:27 145/75 11/17/18 05:26 92 145/75 11/17/18 04:00 98.6 98 20 157/78 (104) 100 11/17/18 04:00 Mechanical Ventilator 11/17/18 04:00 30 11/17/18 04:00 93 11/17/18 03:30 89 18 30 11/17/18 01:30 90 21 30 11/17/18 00:00 Mechanical Ventilator 11/17/18 00:00 89 11/17/18 00:00 98.7 89 21 143/78 (99) 100 11/16/18 23:30 90 20 30 11/16/18 21:30 92 21 30 11/16/18 21:24 90 125/74 11/16/18 21:24 125/74 11/16/18 20:00 Mechanical Ventilator 11/16/18 20:00 99.0 90 20 122/65 (84) 100 11/16/18 20:00 30 11/16/18 19:36 89 11/16/18 19:24 90 22 30 11/16/18 17:03 95 20 30 11/16/18 16:00 99.6 96 25 128/72 (90) 100 11/16/18 16:00 Mechanical Ventilator 11/16/18 16:00 94 11/16/18 16:00 30 11/16/18 15:36 93 22 30 11/16/18 14:47 133/58 11/16/18 14:45 92 133/58 11/16/18 12:43 92 26 30 11/16/18 12:00 99.0 88 22 133/58 (83) 100 11/16/18 12:00 30 11/16/18 12:00 Mechanical Ventilator Intake and Output 11/17/18 11/18/18 18:59 06:59 Intake Total 1444.720 ml 1056.1106 ml Output Total 700 ml 650 ml Balance 744.720 ml 406.1106 ml Intake Free Water 50 ml 120 ml IV Total 809.720 ml 481.1106 ml Tube Feeding 585 ml 455 ml Output Urine Total 700 ml 650 ml # Bowel Movements 2 2 Labs Test 11/15/18 19:15 11/16/18 04:00 11/16/18 12:25 11/16/18 12:30 Vancomycin Level Trough 15.9 ug/mL (5.0-12.0) White Blood Count 11.0 K/UL (4.8-10.8) Red Blood Count 3.52 M/UL (4.20-5.40) Hemoglobin 8.9 G/DL (12.0-16.0) Hematocrit 28.2 % (37.0-47.0) Mean Corpuscular Volume 80 FL (80-99) Mean Corpuscular Hemoglobin 25.2 PG (27.0-31.0) Mean Corpuscular Hemoglobin Concent 31.5 G/DL (32.0-36.0) Red Cell Distribution Width 23.7 % (11.6-14.8) Platelet Count 537 K/UL (150-450) Mean Platelet Volume 4.9 FL (6.5-10.1) Neutrophils (%) (Auto) 78.6 % (45.0-75.0) Lymphocytes (%) (Auto) 8.3 % (20.0-45.0) Monocytes (%) (Auto) 6.2 % (1.0-10.0) Eosinophils (%) (Auto) 5.7 % (0.0-3.0) Basophils (%) (Auto) 1.1 % (0.0-2.0) Sodium Level 140 MMOL/L (136-145) Potassium Level 3.4 MMOL/L (3.5-5.1) Chloride Level 102 MMOL/L (98-107) Carbon Dioxide Level 31 MMOL/L (21-32) Anion Gap 8 mmol/L (5-15) Blood Urea Nitrogen 13 mg/dL (7-18) Creatinine 0.4 MG/DL (0.55-1.30) Estimat Glomerular Filtration Rate mL/min (>60) Glucose Level 105 MG/DL (74-106) Calcium Level 8.1 MG/DL (8.5-10.1) Total Bilirubin 0.2 MG/DL (0.2-1.0) Aspartate Amino Transf (AST/SGOT) 88 U/L (15-37) Alanine Aminotransferase (ALT/SGPT) 84 U/L (12-78) Alkaline Phosphatase 205 U/L (46-116) Total Protein 5.3 G/DL (6.4-8.2) Albumin 1.1 G/DL (3.4-5.0) Globulin 4.2 g/dL Albumin/Globulin Ratio 0.3 (1.0-2.7) Hemoglobin A1c 5.6 % (4.3-6.0) Phenytoin (Dilantin) Level 4.3 ug/mL (10-20) Valproic Acid (Depakene) Level 28 MCG/ML (50-100) Urine Color Pale yellow Urine Appearance Clear Urine pH 5 (4.5-8.0) Urine Specific Nye 1.010 (1.005-1.035) Urine Protein 1+ (NEGATIVE) Urine Glucose (UA) Negative (NEGATIVE) Urine Ketones Negative (NEGATIVE) Urine Blood 3+ (NEGATIVE) Urine Nitrite Negative (NEGATIVE) Urine Bilirubin Negative (NEGATIVE) Urine Urobilinogen Normal MG/DL (0.0-1.0) Urine Leukocyte Esterase 2+ (NEGATIVE) Urine RBC 2-4 /HPF (0 - 2) Urine WBC 10-15 /HPF (0 - 2) Urine Squamous Epithelial Cells None /LPF (NONE/OCC) Urine Bacteria Occasional /HPF (NONE) Urine Yeast Moderate /HPF (NONE) Test 11/17/18 04:30 11/18/18 03:30 White Blood Count 13.4 K/UL (4.8-10.8) 13.9 K/UL (4.8-10.8) Red Blood Count 3.54 M/UL (4.20-5.40) 3.57 M/UL (4.20-5.40) Hemoglobin 8.9 G/DL (12.0-16.0) 8.9 G/DL (12.0-16.0) Hematocrit 27.8 % (37.0-47.0) 28.2 % (37.0-47.0) Mean Corpuscular Volume 78 FL (80-99) 79 FL (80-99) Mean Corpuscular Hemoglobin 25.0 PG (27.0-31.0) 24.9 PG (27.0-31.0) Mean Corpuscular Hemoglobin Concent 31.9 G/DL (32.0-36.0) 31.4 G/DL (32.0-36.0) Red Cell Distribution Width 23.2 % (11.6-14.8) 23.6 % (11.6-14.8) Platelet Count 610 K/UL (150-450) 641 K/UL (150-450) Mean Platelet Volume 5.5 FL (6.5-10.1) 5.4 FL (6.5-10.1) Neutrophils (%) (Auto) 78.8 % (45.0-75.0) 79.2 % (45.0-75.0) Lymphocytes (%) (Auto) 11.5 % (20.0-45.0) 10.8 % (20.0-45.0) Monocytes (%) (Auto) 5.8 % (1.0-10.0) 5.8 % (1.0-10.0) Eosinophils (%) (Auto) 3.6 % (0.0-3.0) 3.6 % (0.0-3.0) Basophils (%) (Auto) 0.3 % (0.0-2.0) 0.5 % (0.0-2.0) Sodium Level 140 MMOL/L (136-145) 139 MMOL/L (136-145) Potassium Level 3.1 MMOL/L (3.5-5.1) 4.2 MMOL/L (3.5-5.1) Chloride Level 103 MMOL/L (98-107) 103 MMOL/L (98-107) Carbon Dioxide Level 33 MMOL/L (21-32) 33 MMOL/L (21-32) Anion Gap 4 mmol/L (5-15) 3 mmol/L (5-15) Blood Urea Nitrogen 9 mg/dL (7-18) 13 mg/dL (7-18) Creatinine 0.4 MG/DL (0.55-1.30) 0.4 MG/DL (0.55-1.30) Estimat Glomerular Filtration Rate mL/min (>60) mL/min (>60) Glucose Level 110 MG/DL (74-106) 99 MG/DL (74-106) Calcium Level 8.3 MG/DL (8.5-10.1) 8.2 MG/DL (8.5-10.1) Phosphorus Level 1.9 MG/DL (2.5-4.9) 2.5 MG/DL (2.5-4.9) Magnesium Level 2.0 MG/DL (1.8-2.4) 1.9 MG/DL (1.8-2.4) Total Bilirubin 0.2 MG/DL (0.2-1.0) Aspartate Amino Transf (AST/SGOT) 172 U/L (15-37) Alanine Aminotransferase (ALT/SGPT) 135 U/L (12-78) Alkaline Phosphatase 249 U/L (46-116) Total Protein 5.9 G/DL (6.4-8.2) Albumin 1.2 G/DL (3.4-5.0) Globulin 4.7 g/dL Albumin/Globulin Ratio 0.3 (1.0-2.7) Height (Feet): 5 Height (Inches): 8.00 Weight (Pounds): 205 Respiratory/Chest: respiratory distress Objective Physical Exam: Vitals: reviewed Gen: NAD HEENT: normocephalic, atraumatic Neck: non-tender, normal alignment ++ vent Respiratory: normal breath sounds bilaterally CV: normal peripheral pulses, rrr Abdomen: normal bowel sounds, soft, nontender +gtube Extremities: normal range of motion Yonathan Hernandez MD Nov 18, 2018 11:55
[2018-11-18 12:00] VITALS: BP 128/71
--- NOTE | 2018-11-18 12:50 | NUR ---
NURSE NOTES: received patient report from carlos hunt. patient is on bed asleep. on vent at prescribed rate. not in acute distress. noted tounge protrusion. no arrythmias reported during the night. SR on emonitor. noted GTube feeding running. wound care per protocol ordred. will follow plan of care.
--- NOTE | 2018-11-18 12:53 | NUR ---
HAND-OFF: Report given to Kasey DESHPANDE. Pt. remain stable.
[2018-11-18] MEDS ORDERED: Tubing IV Secondary IV ONE (13:33)
[2018-11-18] MEDS ORDERED: NS 275ml ONE ×2 (13:33→13:40)
--- NOTE | 2018-11-18 13:51 | Pulmonology Progress Note ---
Assessment/Plan Problems: (1) Ventilator dependence (2) Tracheostomy dependence (3) UTI (urinary tract infection) (4) Fever (5) Anoxic brain damage (6) Tongue abnormality (7) Seizure disorder (8) Colon adenocarcinoma (9) HTN (hypertension) (10) Sepsis (11) Diabetes (12) Abnormal LFTs (13) Protein calorie malnutrition (14) Gastrostomy in place (15) care home resident (16) Decubitus skin ulcer Assessment/Plan Continue ventilatory support/settings reviewed Titrate down FiO2 to keep SaO2 > 90% Optimize pulmonary hygiene/mobilize as tolerated RTC and PRN HHN's Abx per ID, F/U Cx's F/U cards recs Monitor volumes and renal function DVT Px: LMWH Needs to be seen by OMFS or DDS, needs a tooth extraction FC, continue to discuss GOC Wound care Subjective Allergies: Coded Allergies: Crayfish (Unverified Allergy, Unknown, 11/11/18) Uncoded Allergies: Crawfish (Allergy, Unknown, 11/09/18) Subjective Tm 101.2 VSS stable on vent no sig secretions no distress Objective Last 24 Hour Vital Signs Date Time Temp Pulse Resp B/P (MAP) Pulse Ox O2 Delivery O2 Flow Rate FiO2 11/18/18 13:22 128/71 11/18/18 13:21 91 128/71 11/18/18 13:02 91 21 30 11/18/18 12:00 89 11/18/18 12:00 30 11/18/18 12:00 Mechanical Ventilator 11/18/18 12:00 98.6 91 18 128/71 (90) 100 11/18/18 11:06 89 20 30 11/18/18 09:24 91 21 30 11/18/18 09:01 99.5 11/18/18 08:30 92 135/74 11/18/18 08:00 30 11/18/18 08:00 Mechanical Ventilator 11/18/18 08:00 100.8 92 20 135/74 (94) 100 11/18/18 07:51 90 11/18/18 07:28 89 17 30 11/18/18 05:29 90 23 30 11/18/18 05:07 93 138/70 11/18/18 05:07 138/70 11/18/18 04:00 97.8 98 21 148/88 (108) 100 11/18/18 04:00 30 11/18/18 04:00 Mechanical Ventilator 11/18/18 03:52 92 11/18/18 03:25 91 23 30 11/18/18 01:26 84 20 30 11/18/18 00:00 87 11/18/18 00:00 97.8 98 20 114/66 (82) 100 11/18/18 00:00 Mechanical Ventilator 11/17/18 22:45 88 20 30 11/17/18 22:00 138/74 11/17/18 21:59 97 138/74 11/17/18 21:29 96 21 30 11/17/18 20:00 30 11/17/18 20:00 100.2 98 19 138/75 (96) 99 11/17/18 20:00 Mechanical Ventilator 11/17/18 19:53 98 11/17/18 18:40 101 23 30 11/17/18 17:16 86 19 30 11/17/18 16:00 99.1 87 19 102/60 (74) 100 11/17/18 16:00 30 11/17/18 16:00 Mechanical Ventilator 11/17/18 15:33 90 16 30 11/17/18 15:29 86 11/17/18 14:26 130/69 11/17/18 14:25 91 130/69 11/17/18 13:50 91 22 30 Intake and Output 11/17/18 11/18/18 18:59 06:59 Intake Total 1444.720 ml 1056.1106 ml Output Total 700 ml 650 ml Balance 744.720 ml 406.1106 ml Intake Free Water 50 ml 120 ml IV Total 809.720 ml 481.1106 ml Tube Feeding 585 ml 455 ml Output Urine Total 700 ml 650 ml # Bowel Movements 2 2 General Appearance: no acute distress, cachetic, other - non verbal HEENT: normocephalic, atraumatic, anicteric, mucous membranes moist, status post trach, other - tongue and lip edema Respiratory/Chest: chest wall non-tender, lungs clear, normal breath sounds, no respiratory distress, no accessory muscle use Cardiovascular: normal peripheral pulses, normal rate, regular rhythm Abdomen: normal bowel sounds, soft, non tender, no organomegaly, non distended , no mass, other - GT Extremities: no cyanosis, no clubbing, other - 1+ LEONORA Microbiology Date/Time Source Procedure Growth Status 11/16/18 12:35 Blood Blood Culture - Preliminary NO GROWTH AFTER 24 HOURS Resulted 11/16/18 12:25 Blood Blood Culture - Preliminary NO GROWTH AFTER 24 HOURS Resulted 11/16/18 12:40 Sputum Expectorated Gram Stain - Final Resulted 11/16/18 12:40 Sputum Culture - Preliminary Gram Negative Bacillus 1 Resulted 11/16/18 12:30 Urine,Clean Catch Urine Culture - Final Ivelisse Albicans Complete Laboratory Tests 11/18/18 03:30: White Blood Count 13.9H, Red Blood Count 3.57L, Hemoglobin 8.9L, Hematocrit 28.2L, Mean Corpuscular Volume 79L, Mean Corpuscular Hemoglobin 24.9L, Mean Corpuscular Hemoglobin Concent 31.4L, Red Cell Distribution Width 23.6H, Platelet Count 641H, Mean Platelet Volume 5.4L, Neutrophils (%) (Auto) 79.2H, Lymphocytes (%) (Auto) 10.8L, Monocytes (%) (Auto) 5.8, Eosinophils (%) (Auto) 3.6H, Basophils (%) (Auto) 0.5, Sodium Level 139, Potassium Level 4.2, Chloride Level 103, Carbon Dioxide Level 33H, Anion Gap 3L, Blood Urea Nitrogen 13, Creatinine 0.4L, Estimat Glomerular Filtration Rate , Glucose Level 99, Calcium Level 8.2L, Phosphorus Level 2.5, Magnesium Level 1.9, Total Bilirubin 0.2, Aspartate Amino Transf (AST/SGOT) 172H, Alanine Aminotransferase (ALT/SGPT) 135H , Alkaline Phosphatase 249H, Total Protein 5.9L, Albumin 1.2L, Globulin 4.7, Albumin/Globulin Ratio 0.3L Current Medications Medications (Trade) Dose Ordered Sig/Lupe Route PRN Reason Start Time Stop Time Status Last Admin Dose Admin Acetaminophen (Tylenol) 650 mg Q4H PRN GT Mild Pain/Temp > 100.5 11/09/18 05:00 12/09/18 04:59 11/18/18 08:31 Albuterol/ Ipratropium (Albuterol/ Ipratropium) 3 ml Q4H PRN HHN Shortness of Breath 11/17/18 12:30 11/22/18 12:29 Amlodipine Besylate (Norvasc) 10 mg DAILY GT 11/09/18 09:00 12/09/18 08:59 11/18/18 08:30 Bisacodyl (Dulcolax) 10 mg DAILY PRN RECTAL Constipation 11/09/18 05:00 12/09/18 04:59 Calcium Carbonate (Tums) 500 mg EVERY 8 HOURS GT 11/09/18 14:00 12/09/18 08:59 11/18/18 13:21 Chlorhexidine Gluconate (Corazon-Hex 2%) 1 applic DAILY@2000 TOPIC 11/12/18 20:00 12/12/18 19:59 11/17/18 20:28 Dextrose (Dextrose 50%) 25 ml Q30M PRN IV Hypoglycemia 11/09/18 04:45 12/09/18 04:44 Dextrose (Dextrose 50%) 50 ml Q30M PRN IV Hypoglycemia 11/09/18 04:45 12/09/18 04:44 11/09/18 09:09 Enoxaparin Sodium (Lovenox) 40 mg DAILY SUBQ 11/09/18 09:00 12/09/18 08:59 11/18/18 08:33 Famotidine (Pepcid) 20 mg EVERY 12 HOURS GT 11/09/18 21:00 12/09/18 08:59 11/18/18 08:30 Furosemide (Lasix) 40 mg EVERY 12 HOURS GT 11/09/18 09:00 12/09/18 08:59 11/18/18 08:30 Hydralazine HCl (Apresoline) 5 mg EVERY 8 HOURS GT 11/09/18 06:00 12/09/18 05:59 11/18/18 13:22 Insulin Aspart (NovoLOG) Q6HR SUBQ 11/09/18 06:00 12/09/18 05:59 11/18/18 12:22 Insulin Detemir (Levemir) 4 units EVERY 12 HOURS SUBQ 11/16/18 21:00 12/09/18 08:59 11/18/18 08:40 Labetalol HCl (Normodyne) 200 mg Q8HR GT 11/09/18 06:00 12/09/18 05:59 11/18/18 13:21 Levetiracetam (Keppra) 1,500 mg Q12HR GT 11/09/18 09:00 12/09/18 08:59 11/18/18 08:31 Magnesium Hydroxide (Mom) 30 ml DAILY PRN GT Constipation 11/09/18 05:00 12/09/18 04:59 Magnesium Oxide (Mag-Ox 400mg) 400 mg EVERY 8 HOURS GT 11/09/18 14:00 12/09/18 08:59 11/18/18 13:21 Meropenem 1 gm/ Sodium Chloride 100 ml @ 200 mls/hr Q8HR IVPB 11/16/18 14:00 11/21/18 13:59 11/18/18 13:21 Ondansetron HCl (Zofran) 4 mg Q6H PRN GT Nausea & Vomiting 11/09/18 05:00 12/09/18 04:59 Phenobarbital (PHENobarbital) 60 mg BID GT 11/09/18 09:00 12/09/18 08:59 11/18/18 08:31 Phenytoin (Dilantin) 100 mg Q8HR GT 11/09/18 06:00 12/09/18 05:59 11/18/18 13:22 Polyethylene Glycol (Miralax) 17 gm DAILYPRN PRN GT Constipation 11/14/18 10:30 12/12/18 10:29 Sennosides (Senokot) 8.6 mg EVERY 12 HOURS GT 11/09/18 21:00 12/09/18 08:59 11/18/18 08:30 Valproic Acid (Depakene) 500 mg EVERY 8 HOURS GT 11/09/18 06:00 12/09/18 05:59 11/18/18 13:22 Vancomycin HCl (Vanco rx to dose) 1 ea DAILY PRN MISC Per rx protocol 11/10/18 16:45 12/10/18 16:44 Vancomycin HCl 750 mg/Sodium Chloride 275 ml @ 183.333 mls/hr Q12HR@0800,2000 IVPB 11/16/18 20:00 11/21/18 19:59 11/18/18 08:38 Balbir Dejesus MD Nov 18, 2018 13:51
--- NOTE | 2018-11-18 15:10 | Infectious Diseases Prog Note ---
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 fungal uti vs colonization - vancomycin and meropenem, diflucan added - picc line changed - f/u on cultures, labs and chest x-ray - monitor labs and chest x-ray - sacral wound management per surgery, note reviewed - please see orders 2. Trach-vent respiratory failure. 3. Dysphagia, G-tube. 4. Anemia. 5. Diabetes. 6. Hypertension. 7. Large tongue. 8. Anoxic brain injury. 9. Weakness. 10. Poorly responsive. 11. History of seizures. 12. History of colon adenocarcinoma. 13. Skin care protocol. 14. Allergy to crawfish. 15. Social history negative. 16. Family history noncontributory. 17. MAR was noted. 18. Case was discussed with RN. 19. Continue treatment per primary consultants. 20. Orders were ordered, entered, and noted. 21. Continue wound care protocol. 22. Continue blood sugar and blood pressure treatment per primary consultants for diabetes and hypertension. 23. vre colonization and isolation Subjective Constitutional: Reports: fever, other - + trach and vent HEENT: Reports: congestion Respiratory: Reports: shortness of breath, other - + trach and vent Cardiovascular: Reports: other - no pressors Gastrointestinal/Abdominal: Denies: nausea, vomiting Genitourinary: Reports: other - + nava Neurologic: Reports: other - weak, poorly responsive Psychiatric: Reports: other - NA Skin: Denies: rash Hematologic: Reports: bleeding Musculoskeletal: Reports: other - NA Allergies: Coded Allergies: Crayfish (Unverified Allergy, Unknown, 11/11/18) Uncoded Allergies: Crawfish (Allergy, Unknown, 11/09/18) Objective Vital Signs Last 24 Hour Vital Signs Date Time Temp Pulse Resp B/P (MAP) Pulse Ox O2 Delivery O2 Flow Rate FiO2 11/18/18 13:22 128/71 11/18/18 13:21 91 128/71 11/18/18 13:02 91 21 30 11/18/18 12:00 89 11/18/18 12:00 30 11/18/18 12:00 Mechanical Ventilator 11/18/18 12:00 98.6 91 18 128/71 (90) 100 11/18/18 11:06 89 20 30 11/18/18 09:24 91 21 30 11/18/18 09:01 99.5 11/18/18 08:30 92 135/74 11/18/18 08:00 30 11/18/18 08:00 Mechanical Ventilator 11/18/18 08:00 100.8 92 20 135/74 (94) 100 11/18/18 07:51 90 11/18/18 07:28 89 17 30 11/18/18 05:29 90 23 30 11/18/18 05:07 93 138/70 11/18/18 05:07 138/70 11/18/18 04:00 97.8 98 21 148/88 (108) 100 11/18/18 04:00 30 11/18/18 04:00 Mechanical Ventilator 11/18/18 03:52 92 11/18/18 03:25 91 23 30 11/18/18 01:26 84 20 30 11/18/18 00:00 87 11/18/18 00:00 97.8 98 20 114/66 (82) 100 11/18/18 00:00 Mechanical Ventilator 11/17/18 22:45 88 20 30 11/17/18 22:00 138/74 11/17/18 21:59 97 138/74 11/17/18 21:29 96 21 30 11/17/18 20:00 30 11/17/18 20:00 100.2 98 19 138/75 (96) 99 11/17/18 20:00 Mechanical Ventilator 11/17/18 19:53 98 11/17/18 18:40 101 23 30 11/17/18 17:16 86 19 30 11/17/18 16:00 99.1 87 19 102/60 (74) 100 11/17/18 16:00 30 11/17/18 16:00 Mechanical Ventilator 11/17/18 15:33 90 16 30 11/17/18 15:29 86 Height (Feet): 5 Height (Inches): 8.00 Weight (Pounds): 205 General Appearance: other - + trach and vent HEENT: normocephalic, atraumatic, anicteric, no JVD, status post trach Respiratory/Chest: crackles/rales, rhonchi - bilaterally Cardiovascular: normal rate, regular rhythm, no gallop/murmur, no JVD Abdomen: normal bowel sounds, soft, non tender, no organomegaly, non distended Genitourinary: other - + nava - urine cloudy Extremities: no cyanosis Skin: no rash Neurologic/Psychiatric: motor weakness, other - poorly responsive, lethargic Lymphatic: no neck adenopathy Musculoskeletal: no effusion Objective 11/11/18 - chest x-ray - IMPRESSION: 1. Hypoventilatory lungs. Elevated right hemidiaphragm. Slightly improved vascular congestion. Similar bibasilar lung atelectasis and airspace disease. 2. Query right pleural effusion. 2-D echo - no vegetations mentioned, report noted sacral x-ray - no osteo mentioned, report noted 11/14/18 - Technique: One view of the chest Comparison: November 13, 2018 post PICC radiograph Findings: Bilateral interstitial and alveolar edema versus infiltrates appear slightly worse. There is increasing obscuration of left hemidiaphragm, may reflect increasing pleural fluid as well. The heart remains enlarged. Previously demonstrated left arm PICC has been removed. Stable right arm PICC. Impression: Slightly worsening bilateral interstitial and airspace infiltrates versus edema, over one day 11/16/18 - chest x-ray Procedure: XRAY Chest 1v Indication: Dyspnea Technique: One view of the chest Comparison: November 14, 2018 Findings: Bilateral interstitial edema persists. Tracheostomy, right arm PICC remain. The heart is enlarged. Impression: Bilateral interstitial edema, unchanged over 2 days Cardiomegaly Microbiology Date/Time Source Procedure Growth Status 11/16/18 12:35 Blood Blood Culture - Preliminary NO GROWTH AFTER 24 HOURS Resulted 11/16/18 12:25 Blood Blood Culture - Preliminary NO GROWTH AFTER 24 HOURS Resulted 11/16/18 12:40 Sputum Expectorated Gram Stain - Final Resulted 11/16/18 12:40 Sputum Culture - Preliminary Gram Negative Bacillus 1 Resulted 11/16/18 12:30 Urine,Clean Catch Urine Culture - Final Ivelisse Albicans Complete Laboratory Tests Test 11/18/18 03:30 White Blood Count 13.9 K/UL (4.8-10.8) H Red Blood Count 3.57 M/UL (4.20-5.40) L Hemoglobin 8.9 G/DL (12.0-16.0) L Hematocrit 28.2 % (37.0-47.0) L Mean Corpuscular Volume 79 FL (80-99) L Mean Corpuscular Hemoglobin 24.9 PG (27.0-31.0) L Mean Corpuscular Hemoglobin Concent 31.4 G/DL (32.0-36.0) L Red Cell Distribution Width 23.6 % (11.6-14.8) H Platelet Count 641 K/UL (150-450) H Mean Platelet Volume 5.4 FL (6.5-10.1) L Neutrophils (%) (Auto) 79.2 % (45.0-75.0) H Lymphocytes (%) (Auto) 10.8 % (20.0-45.0) L Monocytes (%) (Auto) 5.8 % (1.0-10.0) Eosinophils (%) (Auto) 3.6 % (0.0-3.0) H Basophils (%) (Auto) 0.5 % (0.0-2.0) Sodium Level 139 MMOL/L (136-145) Potassium Level 4.2 MMOL/L (3.5-5.1) Chloride Level 103 MMOL/L (98-107) Carbon Dioxide Level 33 MMOL/L (21-32) H Anion Gap 3 mmol/L (5-15) L Blood Urea Nitrogen 13 mg/dL (7-18) Creatinine 0.4 MG/DL (0.55-1.30) L Estimat Glomerular Filtration Rate mL/min (>60) Glucose Level 99 MG/DL (74-106) Calcium Level 8.2 MG/DL (8.5-10.1) L Phosphorus Level 2.5 MG/DL (2.5-4.9) Magnesium Level 1.9 MG/DL (1.8-2.4) Total Bilirubin 0.2 MG/DL (0.2-1.0) Aspartate Amino Transf (AST/SGOT) 172 U/L (15-37) H Alanine Aminotransferase (ALT/SGPT) 135 U/L (12-78) H Alkaline Phosphatase 249 U/L (46-116) H Total Protein 5.9 G/DL (6.4-8.2) L Albumin 1.2 G/DL (3.4-5.0) L Globulin 4.7 g/dL Albumin/Globulin Ratio 0.3 (1.0-2.7) L Current Medications Medications (Trade) Dose Ordered Sig/Lupe Route PRN Reason Start Time Stop Time Status Last Admin Dose Admin Acetaminophen (Tylenol) 650 mg Q4H PRN GT Mild Pain/Temp > 100.5 11/09/18 05:00 12/09/18 04:59 11/18/18 08:31 Albuterol/ Ipratropium (Albuterol/ Ipratropium) 3 ml Q4H PRN HHN Shortness of Breath 11/17/18 12:30 11/22/18 12:29 Amlodipine Besylate (Norvasc) 10 mg DAILY GT 11/09/18 09:00 12/09/18 08:59 11/18/18 08:30 Bisacodyl (Dulcolax) 10 mg DAILY PRN RECTAL Constipation 11/09/18 05:00 12/09/18 04:59 Calcium Carbonate (Tums) 500 mg EVERY 8 HOURS GT 11/09/18 14:00 12/09/18 08:59 11/18/18 13:21 Chlorhexidine Gluconate (Corazon-Hex 2%) 1 applic DAILY@1999 TOPIC 11/12/18 20:00 12/12/18 19:59 11/17/18 20:28 Dextrose (Dextrose 50%) 25 ml Q30M PRN IV Hypoglycemia 11/09/18 04:45 12/09/18 04:44 Dextrose (Dextrose 50%) 50 ml Q30M PRN IV Hypoglycemia 11/09/18 04:45 12/09/18 04:44 11/09/18 09:09 Enoxaparin Sodium (Lovenox) 40 mg DAILY SUBQ 11/09/18 09:00 12/09/18 08:59 11/18/18 08:33 Famotidine (Pepcid) 20 mg EVERY 12 HOURS GT 11/09/18 21:00 12/09/18 08:59 11/18/18 08:30 Furosemide (Lasix) 40 mg EVERY 12 HOURS GT 11/09/18 09:00 12/09/18 08:59 11/18/18 08:30 Hydralazine HCl (Apresoline) 5 mg EVERY 8 HOURS GT 11/09/18 06:00 12/09/18 05:59 11/18/18 13:22 Insulin Aspart (NovoLOG) Q6HR SUBQ 11/09/18 06:00 12/09/18 05:59 11/18/18 12:22 Insulin Detemir (Levemir) 4 units EVERY 12 HOURS SUBQ 11/16/18 21:00 12/09/18 08:59 11/18/18 08:40 Labetalol HCl (Normodyne) 200 mg Q8HR GT 11/09/18 06:00 12/09/18 05:59 11/18/18 13:21 Levetiracetam (Keppra) 1,500 mg Q12HR GT 11/09/18 09:00 12/09/18 08:59 11/18/18 08:31 Magnesium Hydroxide (Mom) 30 ml DAILY PRN GT Constipation 11/09/18 05:00 12/09/18 04:59 Magnesium Oxide (Mag-Ox 400mg) 400 mg EVERY 8 HOURS GT 11/09/18 14:00 12/09/18 08:59 11/18/18 13:21 Meropenem 1 gm/ Sodium Chloride 100 ml @ 200 mls/hr Q8HR IVPB 11/16/18 14:00 11/21/18 13:59 11/18/18 13:21 Ondansetron HCl (Zofran) 4 mg Q6H PRN GT Nausea & Vomiting 11/09/18 05:00 12/09/18 04:59 Phenobarbital (PHENobarbital) 60 mg BID GT 11/09/18 09:00 12/09/18 08:59 11/18/18 08:31 Phenytoin (Dilantin) 100 mg Q8HR GT 11/09/18 06:00 12/09/18 05:59 11/18/18 13:22 Polyethylene Glycol (Miralax) 17 gm DAILYPRN PRN GT Constipation 11/14/18 10:30 12/12/18 10:29 Sennosides (Senokot) 8.6 mg EVERY 12 HOURS GT 11/09/18 21:00 12/09/18 08:59 11/18/18 08:30 Valproic Acid (Depakene) 500 mg EVERY 8 HOURS GT 11/09/18 06:00 12/09/18 05:59 11/18/18 13:22 Vancomycin HCl (Vanco rx to dose) 1 ea DAILY PRN MISC Per rx protocol 11/10/18 16:45 12/10/18 16:44 Vancomycin HCl 750 mg/Sodium Chloride 275 ml @ 183.333 mls/hr Q12HR@0800,1999 IVPB 11/16/18 20:00 11/21/18 19:59 11/18/18 08:38 Dasha Crews MD Nov 18, 2018 15:10
[2018-11-18 16:00] VITALS: BP 147/76
--- NOTE | 2018-11-18 17:47 | NUR ---
NURSE NOTES: fever is on and off for this patient. dr bird and dr vance made aware. dr vance added diflucan and dr bird ordered to moisturize the lips and tongue PRN
--- NOTE | 2018-11-18 18:00 | Surgery Progress Note ---
Surgery Progress Note Subjective Additional Comments no acute events bleeding with oral care per nursing tongue dry appreciate OFMS input no acute intervention planned labs noted Objective Last 24 Hour Vital Signs Date Time Temp Pulse Resp B/P (MAP) Pulse Ox O2 Delivery O2 Flow Rate FiO2 11/18/18 16:00 89 11/18/18 16:00 100.9 92 20 147/76 (99) 100 11/18/18 16:00 Mechanical Ventilator 11/18/18 16:00 30 11/18/18 13:22 128/71 11/18/18 13:21 91 128/71 11/18/18 13:02 91 21 30 11/18/18 12:00 89 11/18/18 12:00 30 11/18/18 12:00 Mechanical Ventilator 11/18/18 12:00 98.6 91 18 128/71 (90) 100 11/18/18 11:06 89 20 30 11/18/18 09:24 91 21 30 11/18/18 09:01 99.5 11/18/18 08:30 92 135/74 11/18/18 08:00 30 11/18/18 08:00 Mechanical Ventilator 11/18/18 08:00 100.8 92 20 135/74 (94) 100 11/18/18 07:51 90 11/18/18 07:28 89 17 30 11/18/18 05:29 90 23 30 11/18/18 05:07 93 138/70 11/18/18 05:07 138/70 11/18/18 04:00 97.8 98 21 148/88 (108) 100 11/18/18 04:00 30 11/18/18 04:00 Mechanical Ventilator 11/18/18 03:52 92 11/18/18 03:25 91 23 30 11/18/18 01:26 84 20 30 11/18/18 00:00 87 11/18/18 00:00 97.8 98 20 114/66 (82) 100 11/18/18 00:00 Mechanical Ventilator 11/17/18 22:45 88 20 30 11/17/18 22:00 138/74 11/17/18 21:59 97 138/74 11/17/18 21:29 96 21 30 11/17/18 20:00 30 11/17/18 20:00 100.2 98 19 138/75 (96) 99 11/17/18 20:00 Mechanical Ventilator 11/17/18 19:53 98 11/17/18 18:40 101 23 30 I&O Intake and Output 11/17/18 11/18/18 19:00 07:00 Intake Total 1444.720 ml 1056.1106 ml Output Total 700 ml 650 ml Balance 744.720 ml 406.1106 ml Intake Free Water 50 ml 120 ml IV Total 809.720 ml 481.1106 ml Tube Feeding 585 ml 455 ml Output Urine Total 700 ml 650 ml # Bowel Movements 2 2 Dressing: other Wound: other Drains: other Cardiovascular: RSR Respiratory: decreased breath sounds Abdomen: soft, present bowel sounds, non-distended Extremities: no cyanosis, other Laboratory Tests Test 11/18/18 03:30 White Blood Count 13.9 K/UL (4.8-10.8) H Red Blood Count 3.57 M/UL (4.20-5.40) L Hemoglobin 8.9 G/DL (12.0-16.0) L Hematocrit 28.2 % (37.0-47.0) L Mean Corpuscular Volume 79 FL (80-99) L Mean Corpuscular Hemoglobin 24.9 PG (27.0-31.0) L Mean Corpuscular Hemoglobin Concent 31.4 G/DL (32.0-36.0) L Red Cell Distribution Width 23.6 % (11.6-14.8) H Platelet Count 641 K/UL (150-450) H Mean Platelet Volume 5.4 FL (6.5-10.1) L Neutrophils (%) (Auto) 79.2 % (45.0-75.0) H Lymphocytes (%) (Auto) 10.8 % (20.0-45.0) L Monocytes (%) (Auto) 5.8 % (1.0-10.0) Eosinophils (%) (Auto) 3.6 % (0.0-3.0) H Basophils (%) (Auto) 0.5 % (0.0-2.0) Sodium Level 139 MMOL/L (136-145) Potassium Level 4.2 MMOL/L (3.5-5.1) Chloride Level 103 MMOL/L (98-107) Carbon Dioxide Level 33 MMOL/L (21-32) H Anion Gap 3 mmol/L (5-15) L Blood Urea Nitrogen 13 mg/dL (7-18) Creatinine 0.4 MG/DL (0.55-1.30) L Estimat Glomerular Filtration Rate mL/min (>60) Glucose Level 99 MG/DL (74-106) Calcium Level 8.2 MG/DL (8.5-10.1) L Phosphorus Level 2.5 MG/DL (2.5-4.9) Magnesium Level 1.9 MG/DL (1.8-2.4) Total Bilirubin 0.2 MG/DL (0.2-1.0) Aspartate Amino Transf (AST/SGOT) 172 U/L (15-37) H Alanine Aminotransferase (ALT/SGPT) 135 U/L (12-78) H Alkaline Phosphatase 249 U/L (46-116) H Total Protein 5.9 G/DL (6.4-8.2) L Albumin 1.2 G/DL (3.4-5.0) L Globulin 4.7 g/dL Albumin/Globulin Ratio 0.3 (1.0-2.7) L Plan Problems: (1) Fever (2) Tongue abnormality Assessment & Plan: patients jaw clenched closed and tongue has been stuck for some time. tongue split from middle teeth and now in two. edema and unable to reduce keep tongue moist. apply lube jelly prn dryness. will monitor do not recommend surgical intervention for this current medical condition (3) Tracheostomy dependence (4) Sepsis Assessment & Plan: gb no stones 6mm polyp no acute surgical intervention planned trend labs DAILY ESTIMATED NEEDS: Needs based on Critical care, sepsis, wound 60kg adj 22-30 kcals/kg 8568-3034 total kcals 1.25-2 g protein/kg 75-120 g total protein Fluid per MD, on lasix NUTRITION DIAGNOSIS: * Swallowing difficulty r/t respiratory status as evidenced by pt is vent dep via trach and PEG dep. * Increased kcal and pro needs r/t wound healing and sepsis as evidenced by pt w/ sacral and R heel wounds, febrile (Tmax 101.5). CURRENT TF: Jevity 1.2 @50 ml/hr x16 hrs ENTERAL NUTRITION RECOMMENDATIONS: Glucerna 1.2 @65ml/hr x18 hrs + Prosource x1 daily to provide 1170ml, 1404 kcal, 70g pro + 11g pro, 942 free H2O - REC TF CHANGE AND INCREASE TO BETTER MEET EST NEEDS - TF TO BE HELD FOR ONE HR BEFORE AND AFTER DILANTIN MEDS - START @20ML/HR, ADVANCE TOLERATED 15ML/HR Q4-6 HRS TO GOAL - FLUSH PER , TAYLER OVRE 30 DEGREES ADDITIONAL RECOMMENDATIONS: 1) CALIBRATED BED SCALE W/ ADDED P200 MATTRESS + PUMP 2) ON LASIX, MONITOR LYTES AND HYDRATION STATUS DAILY 3) TF TO RUN A MAX OF 18 HRS/DAY W/ DILANTIN TID PER PHARMACY 4) REC TF CHANGE TO CARB CONTROL FORMULA 5) WOUND CARE: ADD CHAYITO BID + VIT C 250MG DAILY (5) Fever (6) Decubitus skin ulcer Assessment & Plan: Pt presented on admission with full thickness sacral pressure injury.Base of wound is 20% necrotic , 80% slough. borders are macerated . Mild odor noted. (L)8.4cm x (W) 6.5cm. Periwound skin tone is darker without erythema,induration or elevation in skin temp. Both heels are non -blanchable and both are fluctuant when palpated. Tx.Plan: Clean wound with saline. Apply Therahoney. Aply Moisture Barrier paste periwound. Cover with Optifoam drsg. Change every 3 days and prn. Apply Cavilon Skin BArrier to both heels. Cover each heel with Optifoam drsg. Change every 7 days and prn. APM/DEIRDRE mattress overlay. Reposition at least every 2hours or as tolerated. Off-load heels with pillow. will follow with recs thank you Preet Hylton Nov 18, 2018 18:00
--- NOTE | 2018-11-18 19:15 | General Progress Note ---
Assessment/Plan Status: unchanged Assessment/Plan: 78-year-old female who is trach dependent who was brought in by detention for sepsis and found to have UTI and bacteremia. #Sepsis secondary to UTI, GPC Staph Epidermidis bacteremia, Line associated infection an E. Coli isolated from the cath tip- the patient arrived to the Hospital with PICC ID consult appreciate Rec Vancomycin and Meropenem started 11/16 ( Zosyn stopped) , fungal coverage with diflucan added today Pseudomonal pneumonia, UTI due to Enterococcus F, VRE colonized Remove PICC and place new line 11/13/18 Continue antibiotics per ID Repeat blood cultures 11/12/18 NGT noted Echo to eval for vegetation negative sputum cultures with pseudomonas Chest x-ray reviewed: Atelectasis # Transaminitis - trend lft's - GI consult, appreciate recs - ab us: reviewed - f/u hep panel #Elevated troponin secondary to sepsis versus ACS Cardiology consult, appreciate recs Medications per cardiology #Hypertension- improved Continue current medications, hydralazine as needed hypertension #Vent dependent Pulmonary consult, appreciate recs Vent management per pulmonary #Hypokalemia Replace, continue to monitor # Chronic tongue wound Supportive care On examination the patient has a sharp lower incisor present that is likely the culprit for the tongue laceration when she was intubated in the prior hospitalization at [facility] OMFS consultation Dr. Benavides completed ( no note left ) and I spoke with him over the phone after the visit. He does not recommend any surgery. ONLY bite block MOLT if available to decompress the tongue and get the remainder teeth out of the tongue way. Keep moisture in the lips and tongue. I updated Dr. Hylton today # History of mood disorder Seen by psychiatry and on Depakote. Level was checked # Seizure history - Discussed with Dr. Eric who knew the patient from [facility] and confirmed that she did have seizure activity and was on multiple AED regimen. - Will continue Depakote ( 28 level ) and (Phenytoin 4.3 ) - no active seizure activity at this time. Keep current dose. - Both Dr. Eric and Mariana not available to come [place] [facility] and no acute need at this time. #Diabetes Mellitus - glucose noted in the 90-110's - Decrease Levemir to 4 units q 12 hours - Hb A1c level ordered. Will follow up # Disposition - SNF when cleared by ID. Still febrile. Time of note may not reflect time of patient encounter Pulsed reviewed: Full code timing of this note may not reflect time of encounter. I spent 40 minutes on this encounter. Great than 50 percent spent of care planning. I spent 30 minutes doing chart review for this patient Subjective Date patient seen: Nov 18, 2018 ROS Limited/Unobtainable: Yes - patient unresponsive, +trach, +vent Allergies: Coded Allergies: Crayfish (Unverified Allergy, Unknown, 11/11/18) Uncoded Allergies: Crawfish (Allergy, Unknown, 11/09/18) Objective Last 24 Hour Vital Signs Date Time Temp Pulse Resp B/P (MAP) Pulse Ox O2 Delivery O2 Flow Rate FiO2 11/18/18 18:00 99.0 11/18/18 17:25 88 20 30 11/18/18 16:00 89 11/18/18 16:00 100.9 92 20 147/76 (99) 100 11/18/18 16:00 Mechanical Ventilator 11/18/18 16:00 30 11/18/18 15:02 93 20 30 11/18/18 13:22 128/71 11/18/18 13:21 91 128/71 11/18/18 13:02 91 21 30 11/18/18 12:00 89 11/18/18 12:00 30 11/18/18 12:00 Mechanical Ventilator 11/18/18 12:00 98.6 91 18 128/71 (90) 100 11/18/18 11:06 89 20 30 11/18/18 09:24 91 21 30 11/18/18 08:30 92 135/74 11/18/18 08:00 30 11/18/18 08:00 Mechanical Ventilator 11/18/18 08:00 100.8 92 20 135/74 (94) 100 11/18/18 07:51 90 11/18/18 07:28 89 17 30 11/18/18 05:29 90 23 30 11/18/18 05:07 93 138/70 11/18/18 05:07 138/70 11/18/18 04:00 97.8 98 21 148/88 (108) 100 11/18/18 04:00 30 11/18/18 04:00 Mechanical Ventilator 11/18/18 03:52 92 11/18/18 03:25 91 23 30 11/18/18 01:26 84 20 30 11/18/18 00:00 87 11/18/18 00:00 97.8 98 20 114/66 (82) 100 11/18/18 00:00 Mechanical Ventilator 11/17/18 22:45 88 20 30 11/17/18 22:00 138/74 11/17/18 21:59 97 138/74 11/17/18 21:29 96 21 30 11/17/18 20:00 30 11/17/18 20:00 100.2 98 19 138/75 (96) 99 11/17/18 20:00 Mechanical Ventilator 11/17/18 19:53 98 Intake and Output 11/17/18 11/18/18 19:00 07:00 Intake Total 1444.720 ml 1056.1106 ml Output Total 700 ml 650 ml Balance 744.720 ml 406.1106 ml Intake Free Water 50 ml 120 ml IV Total 809.720 ml 481.1106 ml Tube Feeding 585 ml 455 ml Output Urine Total 700 ml 650 ml # Bowel Movements 2 2 Laboratory Tests 11/18/18 03:30: White Blood Count 13.9H, Red Blood Count 3.57L, Hemoglobin 8.9L, Hematocrit 28.2L, Mean Corpuscular Volume 79L, Mean Corpuscular Hemoglobin 24.9L, Mean Corpuscular Hemoglobin Concent 31.4L, Red Cell Distribution Width 23.6H, Platelet Count 641H, Mean Platelet Volume 5.4L, Neutrophils (%) (Auto) 79.2H, Lymphocytes (%) (Auto) 10.8L, Monocytes (%) (Auto) 5.8, Eosinophils (%) (Auto) 3.6H, Basophils (%) (Auto) 0.5, Sodium Level 139, Potassium Level 4.2, Chloride Level 103, Carbon Dioxide Level 33H, Anion Gap 3L, Blood Urea Nitrogen 13, Creatinine 0.4L, Estimat Glomerular Filtration Rate , Glucose Level 99, Calcium Level 8.2L, Phosphorus Level 2.5, Magnesium Level 1.9, Total Bilirubin 0.2, Aspartate Amino Transf (AST/SGOT) 172H, Alanine Aminotransferase (ALT/SGPT) 135H , Alkaline Phosphatase 249H, Total Protein 5.9L, Albumin 1.2L, Globulin 4.7, Albumin/Globulin Ratio 0.3L Height (Feet): 5 Height (Inches): 8.00 Weight (Pounds): 205 General Appearance: no apparent distress - unresponsive, + trach + vent EENT: other - large swollen tongue Cardiovascular: normal rate, regular rhythm, no gallop/murmur Respiratory/Chest: lungs clear Abdomen: normal bowel sounds, non tender Genitourinary/Rectal: other - + Neftaly Acuna M.D. Nov 18, 2018 19:15
--- NOTE | 2018-11-18 19:15 | NUR ---
NURSE NOTES: received pt from Kasey DESHPANDE., pt is resting on the bed,AOx 0, vent dependent, no SOB noted, no dysrhythmia reported from last shift. bed lowest position, locked, and call light within reach. will continue to monitor pt with plan of care.
--- NOTE | 2018-11-18 19:19 | NUR ---
NURSE NOTES: endorsed to veena hunt. patient is stable.
[2018-11-18 20:00] VITALS: BP 138/76
[2018-11-18] MEDS: Dyna-Hex 2% Top Sol 2oz TOPIC SCH (20:11)
[2018-11-19] VITALS: BP 124/67
--- NOTE | 2018-11-19 01:31 | NUR ---
RESPIRATORY NOTE: While doing trach care, a small amount of blood was noted underneath the stoma. RN notified.
[2018-11-19 04:00] VITALS: BP 150/86
[2018-11-19] MEDS: Acetaminophen 650mg/20.3ml GT PRN ×3 (04:12→16:19)
[2018-11-19] MEDS: NovoLOG Insulin Flexpen SUBQ SCH ×3 (05:06→18:29)
[2018-11-19] MEDS: Valproic Acid 250mg/5ml Liquid GT SCH ×3 (05:10→22:12)
[2018-11-19] MEDS: Phenytoin Susp 100mg/4ml GT SCH ×3 (05:10→22:12)
[2018-11-19] MEDS: Labetalol 200mg tab GT SCH ×3 (05:10→22:14)
[2018-11-19] MEDS: Tums 500mg GT SCH ×3 (05:10→22:12)
[2018-11-19] MEDS: HydrALAZINE 10mg Tab GT SCH ×3 (05:11→22:15)
[2018-11-19] MEDS: Magnesium Oxide 400mg tab GT SCH ×3 (05:11→22:12)
[2018-11-19 05:50] LABS: BASOPHILS % (AUTO) 0.7 % (0.0-2.0); HEMATOCRIT 27.8 % (37.0-47.0); HEMOGLOBIN 8.9 G/DL (12.0-16.0); LYMPHOCYTES % (AUTO) 8.4 % (20.0-45.0); MEAN CORPUSCULAR VOLUME 79 FL (80-99); MONOCYTES % (AUTO) 8.3 % (1.0-10.0); NEUTROPHILS % (AUTO) 79.7 % (45.0-75.0); PLATELET COUNT 640 K/UL (150-450); RED BLOOD COUNT 3.53 M/UL (4.20-5.40); RED CELL DISTRIBUTION WIDTH 22.6 % (11.6-14.8); WHITE BLOOD COUNT 11.6 K/UL (4.8-10.8)
--- NOTE | 2018-11-19 05:51 | NUR ---
NURSE NOTES: pt's temerature went up to 101.2 and given tyenol 650mg and applied cooling measures. rechecked temperature @0551, and temp went down to 98.2. will continue to monitor pt.
[2018-11-19 06:10] LABS: ALANINE AMINOTRANSFERASE 145 U/L (12-78); ALBUMIN 1.3 G/DL (3.4-5.0); ALBUMIN/GLOBULIN RATIO 0.3 (1.0-2.7); ALKALINE PHOSPHATASE 272 U/L (46-116); ANION GAP 5 mmol/L (5-15); ASPARTATE AMINO TRANSFERASE 160 U/L (15-37); BILIRUBIN,TOTAL 0.2 MG/DL (0.2-1.0); BLOOD UREA NITROGEN 13 mg/dL (7-18); CALCIUM 8.4 MG/DL (8.5-10.1); CARBON DIOXIDE 32 MMOL/L (21-32); CHLORIDE 101 MMOL/L (98-107); CREATININE 0.5 MG/DL (0.55-1.30); POTASSIUM 4.4 MMOL/L (3.5-5.1); SODIUM 138 MMOL/L (136-145)
--- NOTE | 2018-11-19 06:42 | NUR ---
RESPIRATORY NOTE: Received pt on trach Shiley, cuffed size 8.0, secured by trach tie and trach guard, with current vent settings: AC 14-375ml-30%FiO2- peep 5. Pt is trach dependent, unable to follow commands, resting in bed comfortably, no SOB or resp distress noted. Juan rhonchi breath sounds heard upon auscultation, suctioned moderate amounts of thick white/mccauley/yellow secretions without incidents. Oral care and trach care done. Noted a wound on the right side below the trach, covered by wound tape. Alarms are set and audible, vent is plugged into the red outlet, ambu bag and trach kit are at bedside. Will continue to monitor and sxn q2h ans as needed.
--- NOTE | 2018-11-19 07:13 | NUR ---
NURSE NOTES: Received bedside report from Rosalva RN. Pt. in bed, sleeping, non-verbal, obtunded. No sign of distress. On mech. vent with setting AC14/VT375/FiO2 of 30%/P5. No grimacing noted. HOB elevated at all times. On GTF of Glucerna 1.2 @ 65cc/hr. F/C in placed patent/intact draining yellow colored urine. PICC line at right upper arm with 2 lumen in placed patent/intact. Padded side rails for seizure precaution. Bed in low position, locked. Call light within reach. Will cont. to monitor.
--- NOTE | 2018-11-19 07:29 | General Progress Note ---
Assessment/Plan Status: unchanged Assessment/Plan: Assessment - Iron deficiency anemia - abnormal LFT - ? meds, passive congestion - dysphagia, s/p GT - Resp, failure, s/p Trach - hepatitis panel negative Recommendations - Continue TF - Monitor LFT - - IV Iron - follow CBC - Conservative approach given poor health Subjective ROS Limited/Unobtainable: No Allergies: Coded Allergies: Crayfish (Unverified Allergy, Unknown, 11/11/18) Uncoded Allergies: Crawfish (Allergy, Unknown, 11/09/18) Subjective fever last night had BM Objective Last 24 Hour Vital Signs Date Time Temp Pulse Resp B/P (MAP) Pulse Ox O2 Delivery O2 Flow Rate FiO2 11/19/18 06:42 100 23 30 11/19/18 05:11 121/70 11/19/18 05:10 101 121/70 11/19/18 04:43 100 19 30 11/19/18 04:42 100.8 11/19/18 04:00 102 11/19/18 04:00 Mechanical Ventilator 11/19/18 04:00 30 11/19/18 04:00 101.2 103 20 150/86 (107) 100 11/19/18 02:52 101 23 30 11/19/18 01:31 98 25 30 11/19/18 00:00 97.2 94 20 124/67 (86) 100 11/19/18 00:00 Mechanical Ventilator 11/18/18 23:48 92 11/18/18 23:10 93 18 30 11/18/18 21:39 137/91 11/18/18 21:35 99 147/83 11/18/18 21:09 96 20 30 11/18/18 20:00 Mechanical Ventilator 11/18/18 20:00 30 11/18/18 20:00 97.9 91 20 138/76 (96) 100 11/18/18 19:23 95 23 30 11/18/18 19:20 94 11/18/18 17:25 88 20 30 11/18/18 16:00 89 11/18/18 16:00 100.9 92 20 147/76 (99) 100 11/18/18 16:00 Mechanical Ventilator 11/18/18 16:00 30 11/18/18 15:02 93 20 30 11/18/18 13:22 128/71 11/18/18 13:21 91 128/71 11/18/18 13:02 91 21 30 11/18/18 12:00 89 11/18/18 12:00 30 11/18/18 12:00 Mechanical Ventilator 11/18/18 12:00 98.6 91 18 128/71 (90) 100 11/18/18 11:06 89 20 30 11/18/18 09:24 91 21 30 11/18/18 08:30 92 135/74 11/18/18 08:00 30 11/18/18 08:00 Mechanical Ventilator 11/18/18 08:00 100.8 92 20 135/74 (94) 100 11/18/18 07:51 90 Intake and Output 11/18/18 11/19/18 19:00 07:00 Intake Total 1205 ml 1023.783 ml Output Total 550 ml 750 ml Balance 655 ml 273.783 ml Intake Free Water 160 ml 50 ml IV Total 200 ml 518.783 ml Tube Feeding 845 ml 455 ml Output Urine Total 550 ml 750 ml # Bowel Movements 1 2 Laboratory Tests 11/19/18 03:45: White Blood Count 11.6H, Red Blood Count 3.53L, Hemoglobin 8.9L, Hematocrit 27.8L, Mean Corpuscular Volume 79L, Mean Corpuscular Hemoglobin 25.2L, Mean Corpuscular Hemoglobin Concent 32.0, Red Cell Distribution Width 22.6H, Platelet Count 640H, Mean Platelet Volume 5.5L, Neutrophils (%) (Auto) 79.7H, Lymphocytes (%) (Auto) 8.4L, Monocytes (%) (Auto) 8.3, Eosinophils (%) (Auto) 3.0, Basophils (%) (Auto) 0.7, Sodium Level 138, Potassium Level 4.4, Chloride Level 101, Carbon Dioxide Level 32, Anion Gap 5, Blood Urea Nitrogen 13, Creatinine 0.5L, Estimat Glomerular Filtration Rate , Glucose Level 114H, Calcium Level 8.4L, Total Bilirubin 0.2, Aspartate Amino Transf (AST/SGOT) 160H , Alanine Aminotransferase (ALT/SGPT) 145H, Alkaline Phosphatase 272H, Total Protein 6.2L, Albumin 1.3L, Globulin 4.9, Albumin/Globulin Ratio 0.3L Height (Feet): 5 Height (Inches): 8.00 Weight (Pounds): 205 General Appearance: no apparent distress EENT: normal ENT inspection Neck: supple Cardiovascular: normal rate Respiratory/Chest: decreased breath sounds Abdomen: normal bowel sounds, non tender, soft Extremities: non-tender Casper Humphries MD Nov 19, 2018 07:29
--- NOTE | 2018-11-19 07:37 | NUR ---
HAND-OFF: Report given to Mirella DESHPANDE.
[2018-11-19 08:00] VITALS: BP 156/99
[2018-11-19] MEDS: Vancomycin 750 MG in NS 275 ML IVPB SCH ×2 (08:15→20:49)
[2018-11-19] MEDS: PHENobarbital Elixir 30mg/7.5ml GT SCH ×2 (08:16→18:16)
[2018-11-19] MEDS: levETIRAcetam 500mg/5ml Liquid GT SCH ×2 (08:16→20:51)
[2018-11-19] MEDS: Levemir Flexpen SUBQ SCH ×2 (08:18→20:54)
[2018-11-19] MEDS: Furosemide 40mg tab GT SCH ×2 (08:24→21:09)
[2018-11-19] MEDS: Enoxaparin 40mg Inj SUBQ SCH (08:25)
[2018-11-19] MEDS: Sennosides 8.6mg tab GT SCH ×2 (08:52→20:52)
[2018-11-19] MEDS ORDERED: NS 275ml ONE (10:22)
--- NOTE | 2018-11-19 11:47 | Surgery Progress Note ---
Surgery Progress Note Subjective Additional Comments Patient seen and examined bedside. No acute events. Seemingly comfortable. Lubricated tongue. Leukocytosis decreasing. Objective Last 24 Hour Vital Signs Date Time Temp Pulse Resp B/P (MAP) Pulse Ox O2 Delivery O2 Flow Rate FiO2 11/19/18 10:30 104 22 30 11/19/18 08:50 97 11/19/18 08:45 99.6 11/19/18 08:42 103 25 30 11/19/18 08:16 99 156/99 11/19/18 08:00 101.5 99 20 156/99 (118) 100 11/19/18 08:00 Mechanical Ventilator 11/19/18 08:00 30 11/19/18 06:42 100 23 30 11/19/18 05:11 121/70 11/19/18 05:10 101 121/70 11/19/18 04:43 100 19 30 11/19/18 04:00 102 11/19/18 04:00 Mechanical Ventilator 11/19/18 04:00 30 11/19/18 04:00 101.2 103 20 150/86 (107) 100 11/19/18 02:52 101 23 30 11/19/18 01:31 98 25 30 11/19/18 00:00 97.2 94 20 124/67 (86) 100 11/19/18 00:00 Mechanical Ventilator 11/18/18 23:48 92 11/18/18 23:10 93 18 30 11/18/18 21:39 137/91 11/18/18 21:35 99 147/83 11/18/18 21:09 96 20 30 11/18/18 20:00 Mechanical Ventilator 11/18/18 20:00 30 11/18/18 20:00 97.9 91 20 138/76 (96) 100 11/18/18 19:23 95 23 30 11/18/18 19:20 94 11/18/18 17:25 88 20 30 11/18/18 16:00 89 11/18/18 16:00 100.9 92 20 147/76 (99) 100 11/18/18 16:00 Mechanical Ventilator 11/18/18 16:00 30 11/18/18 15:02 93 20 30 11/18/18 13:22 128/71 11/18/18 13:21 91 128/71 11/18/18 13:02 91 21 30 11/18/18 12:00 89 11/18/18 12:00 30 11/18/18 12:00 Mechanical Ventilator 11/18/18 12:00 98.6 91 18 128/71 (90) 100 I&O Intake and Output 11/18/18 11/19/18 18:59 06:59 Intake Total 1205 ml 1088.783 ml Output Total 550 ml 750 ml Balance 655 ml 338.783 ml Intake Free Water 160 ml 50 ml IV Total 200 ml 518.783 ml Tube Feeding 845 ml 520 ml Output Urine Total 550 ml 750 ml # Bowel Movements 1 2 Dressing: saturated Wound: other Drains: other Cardiovascular: RSR Respiratory: decreased breath sounds Abdomen: soft, non-tender, present bowel sounds, other, non-distended Extremities: no cyanosis, other Laboratory Tests Test 11/19/18 03:45 White Blood Count 11.6 K/UL (4.8-10.8) H Red Blood Count 3.53 M/UL (4.20-5.40) L Hemoglobin 8.9 G/DL (12.0-16.0) L Hematocrit 27.8 % (37.0-47.0) L Mean Corpuscular Volume 79 FL (80-99) L Mean Corpuscular Hemoglobin 25.2 PG (27.0-31.0) L Mean Corpuscular Hemoglobin Concent 32.0 G/DL (32.0-36.0) Red Cell Distribution Width 22.6 % (11.6-14.8) H Platelet Count 640 K/UL (150-450) H Mean Platelet Volume 5.5 FL (6.5-10.1) L Neutrophils (%) (Auto) 79.7 % (45.0-75.0) H Lymphocytes (%) (Auto) 8.4 % (20.0-45.0) L Monocytes (%) (Auto) 8.3 % (1.0-10.0) Eosinophils (%) (Auto) 3.0 % (0.0-3.0) Basophils (%) (Auto) 0.7 % (0.0-2.0) Sodium Level 138 MMOL/L (136-145) Potassium Level 4.4 MMOL/L (3.5-5.1) Chloride Level 101 MMOL/L (98-107) Carbon Dioxide Level 32 MMOL/L (21-32) Anion Gap 5 mmol/L (5-15) Blood Urea Nitrogen 13 mg/dL (7-18) Creatinine 0.5 MG/DL (0.55-1.30) L Estimat Glomerular Filtration Rate mL/min (>60) Glucose Level 114 MG/DL (74-106) H Calcium Level 8.4 MG/DL (8.5-10.1) L Total Bilirubin 0.2 MG/DL (0.2-1.0) Aspartate Amino Transf (AST/SGOT) 160 U/L (15-37) H Alanine Aminotransferase (ALT/SGPT) 145 U/L (12-78) H Alkaline Phosphatase 272 U/L (46-116) H Total Protein 6.2 G/DL (6.4-8.2) L Albumin 1.3 G/DL (3.4-5.0) L Globulin 4.9 g/dL Albumin/Globulin Ratio 0.3 (1.0-2.7) L Plan Problems: (1) Fever (2) Tongue abnormality Assessment & Plan: patients jaw clenched closed and tongue has been stuck for some time. tongue split from middle teeth and now in two. edema and unable to reduce keep tongue moist. apply lube jelly prn dryness. will monitor do not recommend surgical intervention for this current medical condition (3) Tracheostomy dependence (4) Sepsis Assessment & Plan: gb no stones 6mm polyp no acute surgical intervention planned trend labs DAILY ESTIMATED NEEDS: Needs based on Critical care, sepsis, wound 60kg adj 22-30 kcals/kg 3858-1020 total kcals 1.25-2 g protein/kg 75-120 g total protein Fluid per MD, on lasix NUTRITION DIAGNOSIS: * Swallowing difficulty r/t respiratory status as evidenced by pt is vent dep via trach and PEG dep. * Increased kcal and pro needs r/t wound healing and sepsis as evidenced by pt w/ sacral and R heel wounds, febrile (Tmax 101.5). CURRENT TF: Jevity 1.2 @50 ml/hr x16 hrs ENTERAL NUTRITION RECOMMENDATIONS: Glucerna 1.2 @65ml/hr x18 hrs + Prosource x1 daily to provide 1170ml, 1404 kcal, 70g pro + 11g pro, 942 free H2O - REC TF CHANGE AND INCREASE TO BETTER MEET EST NEEDS - TF TO BE HELD FOR ONE HR BEFORE AND AFTER DILANTIN MEDS - START @20ML/HR, ADVANCE TOLERATED 15ML/HR Q4-6 HRS TO GOAL - FLUSH PER , HOB OVRE 30 DEGREES ADDITIONAL RECOMMENDATIONS: 1) CALIBRATED BED SCALE W/ ADDED P200 MATTRESS + PUMP 2) ON LASIX, MONITOR LYTES AND HYDRATION STATUS DAILY 3) TF TO RUN A MAX OF 18 HRS/DAY W/ DILANTIN TID PER PHARMACY 4) REC TF CHANGE TO CARB CONTROL FORMULA 5) WOUND CARE: ADD CHAYITO BID + VIT C 250MG DAILY (5) Fever (6) Decubitus skin ulcer Assessment & Plan: Pt presented on admission with full thickness sacral pressure injury.Base of wound is 20% necrotic , 80% slough. borders are macerated . Mild odor noted. (L)8.4cm x (W) 6.5cm. Periwound skin tone is darker without erythema,induration or elevation in skin temp. Both heels are non -blanchable and both are fluctuant when palpated. Tx.Plan: Clean wound with saline. Apply Therahoney. Aply Moisture Barrier paste periwound. Cover with Optifoam drsg. Change every 3 days and prn. Apply Cavilon Skin BArrier to both heels. Cover each heel with Optifoam drsg. Change every 7 days and prn. APM/DEIRDRE mattress overlay. Reposition at least every 2hours or as tolerated. Off-load heels with pillow. will follow with recs thank you Preet Hylton Nov 19, 2018 11:47
[2018-11-19 12:00] VITALS: BP 156/71
--- NOTE | 2018-11-19 15:31 | General Progress Note ---
Assessment/Plan Status: unchanged Assessment/Plan: 78-year-old female who is trach dependent who was brought in by halfway for sepsis and found to have UTI and bacteremia. #Sepsis secondary to UTI, GPC Staph Epidermidis bacteremia, Line associated infection an E. Coli isolated from the cath tip- the patient arrived to the Hospital with PICC ID consult appreciate Rec Vancomycin and Meropenem started 11/16 ( Zosyn stopped) , fungal coverage with diflucan added 11/18 Pseudomonal pneumonia, UTI due to Enterococcus F, VRE colonized Removed PICC and place new line 11/13/18 Continue antibiotics per ID Repeat blood cultures 11/12/18 NGT noted Echo to eval for vegetation negative sputum cultures with pseudomonas Chest x-ray reviewed: Atelectasis # Transaminitis - trend lft's - GI consult, appreciate recs - ab us: reviewed - f/u hep panel #Elevated troponin secondary to sepsis versus ACS Cardiology consult, appreciate recs Medications per cardiology #Hypertension- improved Continue current medications, hydralazine as needed hypertension #Vent dependent Pulmonary consult, appreciate recs Vent management per pulmonary #Hypokalemia Replace, continue to monitor # Chronic tongue wound Supportive care On examination the patient has a sharp lower incisor present that is likely the culprit for the tongue laceration when she was intubated in the prior hospitalization at [facility] OMFS consultation Dr. Benavides completed ( no note left ) and I spoke with him over the phone after the visit. He does not recommend any surgery. ONLY bite block MOLT if available to decompress the tongue and get the remainder teeth out of the tongue way. Keep moisture in the lips and tongue. I updated Dr. Hylton today # History of mood disorder Seen by psychiatry and on Depakote. Level was checked # Seizure history - Discussed with Dr. Eric who knew the patient from [facility] and confirmed that she did have seizure activity and was on multiple AED regimen. - Will continue Depakote ( 28 level ) and (Phenytoin 4.3 ) - no active seizure activity at this time. Keep current dose. - Both Dr. Eric and Mariana not available to come to [facility] for consult and no acute need at this time. #Diabetes Mellitus - glucose noted in the 90-110's - Decreased Levemir to 4 units q 12 hours # Disposition - SNF when cleared by ID. Still febrile. Time of note may not reflect time of patient encounter Full code timing of this note may not reflect time of encounter. I spent 40 minutes on this encounter. Great than 50 percent spent of care planning. Subjective Date patient seen: Nov 19, 2018 ROS Limited/Unobtainable: Yes Allergies: Coded Allergies: Crayfish (Unverified Allergy, Unknown, 11/11/18) Uncoded Allergies: Crawfish (Allergy, Unknown, 11/09/18) Subjective obtunded on vent, fever noted Objective Last 24 Hour Vital Signs Date Time Temp Pulse Resp B/P (MAP) Pulse Ox O2 Delivery O2 Flow Rate FiO2 11/19/18 14:28 114 156/71 11/19/18 14:28 156/71 11/19/18 12:30 114 26 30 11/19/18 12:00 30 11/19/18 12:00 99.0 113 21 156/71 (99) 100 11/19/18 12:00 110 11/19/18 12:00 Mechanical Ventilator 11/19/18 10:30 104 22 30 11/19/18 08:50 97 11/19/18 08:45 99.6 11/19/18 08:42 103 25 30 11/19/18 08:16 99 156/99 11/19/18 08:00 101.5 99 20 156/99 (118) 100 11/19/18 08:00 Mechanical Ventilator 11/19/18 08:00 30 11/19/18 06:42 100 23 30 11/19/18 05:11 121/70 11/19/18 05:10 101 121/70 11/19/18 04:43 100 19 30 11/19/18 04:00 102 11/19/18 04:00 Mechanical Ventilator 11/19/18 04:00 30 11/19/18 04:00 101.2 103 20 150/86 (107) 100 11/19/18 02:52 101 23 30 11/19/18 01:31 98 25 30 11/19/18 00:00 97.2 94 20 124/67 (86) 100 11/19/18 00:00 Mechanical Ventilator 11/18/18 23:48 92 11/18/18 23:10 93 18 30 11/18/18 21:39 137/91 11/18/18 21:35 99 147/83 11/18/18 21:09 96 20 30 11/18/18 20:00 Mechanical Ventilator 11/18/18 20:00 30 11/18/18 20:00 97.9 91 20 138/76 (96) 100 11/18/18 19:23 95 23 30 11/18/18 19:20 94 11/18/18 17:25 88 20 30 11/18/18 16:00 89 11/18/18 16:00 100.9 92 20 147/76 (99) 100 11/18/18 16:00 Mechanical Ventilator 11/18/18 16:00 30 Intake and Output 11/18/18 11/19/18 18:59 06:59 Intake Total 1205 ml 1088.783 ml Output Total 550 ml 750 ml Balance 655 ml 338.783 ml Intake Free Water 160 ml 50 ml IV Total 200 ml 518.783 ml Tube Feeding 845 ml 520 ml Output Urine Total 550 ml 750 ml # Bowel Movements 1 2 Laboratory Tests 11/19/18 03:45: White Blood Count 11.6H, Red Blood Count 3.53L, Hemoglobin 8.9L, Hematocrit 27.8L, Mean Corpuscular Volume 79L, Mean Corpuscular Hemoglobin 25.2L, Mean Corpuscular Hemoglobin Concent 32.0, Red Cell Distribution Width 22.6H, Platelet Count 640H, Mean Platelet Volume 5.5L, Neutrophils (%) (Auto) 79.7H, Lymphocytes (%) (Auto) 8.4L, Monocytes (%) (Auto) 8.3, Eosinophils (%) (Auto) 3.0, Basophils (%) (Auto) 0.7, Sodium Level 138, Potassium Level 4.4, Chloride Level 101, Carbon Dioxide Level 32, Anion Gap 5, Blood Urea Nitrogen 13, Creatinine 0.5L, Estimat Glomerular Filtration Rate , Glucose Level 114H, Calcium Level 8.4L, Total Bilirubin 0.2, Aspartate Amino Transf (AST/SGOT) 160H , Alanine Aminotransferase (ALT/SGPT) 145H, Alkaline Phosphatase 272H, Total Protein 6.2L, Albumin 1.3L, Globulin 4.9, Albumin/Globulin Ratio 0.3L Height (Feet): 5 Height (Inches): 8.00 Weight (Pounds): 205 General Appearance: no apparent distress, other - unresponsive on vent EENT: PERRL/EOMI, other - enlarged tongue protruding Neck: supple Cardiovascular: normal rate, regular rhythm Respiratory/Chest: lungs clear Abdomen: soft Neurologic: unresponsive Neftaly Walters M.D. Nov 19, 2018 15:31
[2018-11-19 16:00] VITALS: BP 151/76
--- NOTE | 2018-11-19 16:28 | Pulmonology Progress Note ---
Assessment/Plan Assessment/Plan Problems: (1) Ventilator dependence (2) Tracheostomy dependence (3) UTI (urinary tract infection) (4) Fever (5) Anoxic brain damage (6) Tongue abnormality (7) Seizure disorder (8) Colon adenocarcinoma (9) HTN (hypertension) (10) Sepsis (11) Diabetes (12) Abnormal LFTs (13) Protein calorie malnutrition (14) Gastrostomy in place (15) [facility] resident (16) Decubitus skin ulcer Assessment/Plan Continue ventilatory support/settings reviewed Titrate down FiO2 to keep SaO2 > 90% Optimize pulmonary hygiene/mobilize as tolerated RTC and PRN HHN's Abx per ID, F/U Cx's F/U cards recs Monitor volumes and renal function DVT Px: LMWH Needs to be seen by OMFS or DDS, needs a tooth extraction FC, continue to discuss GOC Wound care Subjective ROS Limited/Unobtainable: Yes Allergies: Coded Allergies: Crayfish (Unverified Allergy, Unknown, 11/11/18) Uncoded Allergies: Crawfish (Allergy, Unknown, 11/09/18) Subjective obtunded on the vent fever noted trach and peg no bleeding no events over night copious oral secretions Objective Last 24 Hour Vital Signs Date Time Temp Pulse Resp B/P (MAP) Pulse Ox O2 Delivery O2 Flow Rate FiO2 11/19/18 16:00 101.2 106 21 151/76 (101) 99 11/19/18 16:00 30 11/19/18 16:00 Mechanical Ventilator 11/19/18 15:30 108 24 30 11/19/18 14:28 114 156/71 11/19/18 14:28 156/71 11/19/18 12:30 114 26 30 11/19/18 12:00 30 11/19/18 12:00 99.0 113 21 156/71 (99) 100 11/19/18 12:00 110 11/19/18 12:00 Mechanical Ventilator 11/19/18 10:30 104 22 30 11/19/18 08:50 97 11/19/18 08:45 99.6 11/19/18 08:42 103 25 30 11/19/18 08:16 99 156/99 11/19/18 08:00 101.5 99 20 156/99 (118) 100 11/19/18 08:00 Mechanical Ventilator 11/19/18 08:00 30 11/19/18 06:42 100 23 30 11/19/18 05:11 121/70 11/19/18 05:10 101 121/70 11/19/18 04:43 100 19 30 11/19/18 04:00 102 11/19/18 04:00 Mechanical Ventilator 11/19/18 04:00 30 11/19/18 04:00 101.2 103 20 150/86 (107) 100 11/19/18 02:52 101 23 30 11/19/18 01:31 98 25 30 11/19/18 00:00 97.2 94 20 124/67 (86) 100 11/19/18 00:00 Mechanical Ventilator 11/18/18 23:48 92 11/18/18 23:10 93 18 30 11/18/18 21:39 137/91 11/18/18 21:35 99 147/83 11/18/18 21:09 96 20 30 11/18/18 20:00 Mechanical Ventilator 11/18/18 20:00 30 11/18/18 20:00 97.9 91 20 138/76 (96) 100 11/18/18 19:23 95 23 30 11/18/18 19:20 94 11/18/18 17:25 88 20 30 Intake and Output 11/18/18 11/19/18 18:59 06:59 Intake Total 1205 ml 1088.783 ml Output Total 550 ml 750 ml Balance 655 ml 338.783 ml Intake Free Water 160 ml 50 ml IV Total 200 ml 518.783 ml Tube Feeding 845 ml 520 ml Output Urine Total 550 ml 750 ml # Bowel Movements 1 2 General Appearance: WD/WN HEENT: status post trach, other - macroglossia Respiratory/Chest: rhonchi Cardiovascular: normal rate, regularly irregular, edema, other Abdomen: soft, non tender, non distended Extremities: no cyanosis Neurologic/Psychiatric: unresponsiveness Laboratory Tests 11/19/18 03:45: White Blood Count 11.6H, Red Blood Count 3.53L, Hemoglobin 8.9L, Hematocrit 27.8L, Mean Corpuscular Volume 79L, Mean Corpuscular Hemoglobin 25.2L, Mean Corpuscular Hemoglobin Concent 32.0, Red Cell Distribution Width 22.6H, Platelet Count 640H, Mean Platelet Volume 5.5L, Neutrophils (%) (Auto) 79.7H, Lymphocytes (%) (Auto) 8.4L, Monocytes (%) (Auto) 8.3, Eosinophils (%) (Auto) 3.0, Basophils (%) (Auto) 0.7, Sodium Level 138, Potassium Level 4.4, Chloride Level 101, Carbon Dioxide Level 32, Anion Gap 5, Blood Urea Nitrogen 13, Creatinine 0.5L, Estimat Glomerular Filtration Rate , Glucose Level 114H, Calcium Level 8.4L, Total Bilirubin 0.2, Aspartate Amino Transf (AST/SGOT) 160H , Alanine Aminotransferase (ALT/SGPT) 145H, Alkaline Phosphatase 272H, Total Protein 6.2L, Albumin 1.3L, Globulin 4.9, Albumin/Globulin Ratio 0.3L Current Medications Medications (Trade) Dose Ordered Sig/Lupe Route PRN Reason Start Time Stop Time Status Last Admin Dose Admin Acetaminophen (Tylenol) 650 mg Q4H PRN GT Mild Pain/Temp > 100.5 11/09/18 05:00 12/09/18 04:59 11/19/18 16:19 Albuterol/ Ipratropium (Albuterol/ Ipratropium) 3 ml Q4H PRN HHN Shortness of Breath 11/17/18 12:30 11/22/18 12:29 Amlodipine Besylate (Norvasc) 10 mg DAILY GT 11/09/18 09:00 12/09/18 08:59 11/19/18 08:16 Bisacodyl (Dulcolax) 10 mg DAILY PRN RECTAL Constipation 11/09/18 05:00 12/09/18 04:59 Calcium Carbonate (Tums) 500 mg EVERY 8 HOURS GT 11/09/18 14:00 12/09/18 08:59 11/19/18 14:27 Chlorhexidine Gluconate (Corazon-Hex 2%) 1 applic DAILY@1999 TOPIC 11/12/18 20:00 12/12/18 19:59 11/18/18 20:11 Dextrose (Dextrose 50%) 25 ml Q30M PRN IV Hypoglycemia 11/09/18 04:45 12/09/18 04:44 Dextrose (Dextrose 50%) 50 ml Q30M PRN IV Hypoglycemia 11/09/18 04:45 12/09/18 04:44 11/09/18 09:09 Enoxaparin Sodium (Lovenox) 40 mg DAILY SUBQ 11/09/18 09:00 12/09/18 08:59 11/19/18 08:25 Famotidine (Pepcid) 20 mg EVERY 12 HOURS GT 11/09/18 21:00 12/09/18 08:59 11/19/18 08:16 Fluconazole/ Sodium Chloride 100 ml @ 100 mls/hr Q24H IV 11/18/18 16:00 11/25/18 15:59 11/19/18 16:19 Furosemide (Lasix) 40 mg EVERY 12 HOURS GT 11/09/18 09:00 12/09/18 08:59 11/19/18 08:24 Hydralazine HCl (Apresoline) 5 mg EVERY 8 HOURS GT 11/09/18 06:00 12/09/18 05:59 11/19/18 14:28 Insulin Aspart (NovoLOG) Q6HR SUBQ 11/09/18 06:00 12/09/18 05:59 11/19/18 05:06 Insulin Detemir (Levemir) 4 units EVERY 12 HOURS SUBQ 11/16/18 21:00 12/09/18 08:59 11/19/18 08:18 Labetalol HCl (Normodyne) 200 mg Q8HR GT 11/09/18 06:00 12/09/18 05:59 11/19/18 14:28 Levetiracetam (Keppra) 1,500 mg Q12HR GT 11/09/18 09:00 12/09/18 08:59 11/19/18 08:16 Magnesium Hydroxide (Mom) 30 ml DAILY PRN GT Constipation 11/09/18 05:00 12/09/18 04:59 Magnesium Oxide (Mag-Ox 400mg) 400 mg EVERY 8 HOURS GT 11/09/18 14:00 12/09/18 08:59 11/19/18 14:27 Meropenem 1 gm/ Sodium Chloride 100 ml @ 200 mls/hr Q8HR IVPB 11/16/18 14:00 11/21/18 13:59 11/19/18 14:27 Ondansetron HCl (Zofran) 4 mg Q6H PRN GT Nausea & Vomiting 11/09/18 05:00 12/09/18 04:59 Phenobarbital (PHENobarbital) 60 mg BID GT 11/09/18 09:00 12/09/18 08:59 11/19/18 08:16 Phenytoin (Dilantin) 100 mg Q8HR GT 11/09/18 06:00 12/09/18 05:59 11/19/18 14:27 Polyethylene Glycol (Miralax) 17 gm DAILYPRN PRN GT Constipation 11/14/18 10:30 12/12/18 10:29 Sennosides (Senokot) 8.6 mg EVERY 12 HOURS GT 11/09/18 21:00 12/09/18 08:59 11/18/18 20:13 Valproic Acid (Depakene) 500 mg EVERY 8 HOURS GT 11/09/18 06:00 12/09/18 05:59 11/19/18 14:28 Vancomycin HCl (Vanco rx to dose) 1 ea DAILY PRN MISC Per rx protocol 11/10/18 16:45 12/10/18 16:44 Vancomycin HCl 750 mg/Sodium Chloride 275 ml @ 183.333 mls/hr Q12HR@0800,1999 IVPB 11/16/18 20:00 11/21/18 19:59 11/19/18 08:15 Ashley Salomon DO Nov 19, 2018 16:28
--- NOTE | 2018-11-19 16:45 | NUR ---
NURSE NOTES: Pt. spike fever of 101.2 tylenol 650mg. given via GT. and went to 97.0
--- NOTE | 2018-11-19 19:08 | NUR ---
RESPIRATORY NOTE: Received pt. on 840 vent. Vent settings are: A/C rate of 14, Vt 375, FI02 30%, PEEP +5. No respiratory distress noted, pt. sP02 @ 100%. Ambu bag @ BS. Vent plugged on red outlet. Will continue to monitor pt.
--- NOTE | 2018-11-19 19:15 | NUR ---
NURSE NOTES: Received patient from CHARLEE Owens. Will continue plan of care.
--- NOTE | 2018-11-19 19:19 | NUR ---
HAND-OFF: Report given to Rosalva RN. Pt. remain stable.
[2018-11-19 20:00] VITALS: BP 119/64
[2018-11-19] MEDS: Dyna-Hex 2% Top Sol 2oz TOPIC SCH (20:49)
--- NOTE | 2018-11-19 22:04 | Cardiology Progress Note ---
Assessment/Plan Status: stable Assessment/Plan Assessment: Elevated troponin Hypertension Hepatitis HIV UTI Fever PLAN: -Empiric ABX, follow culture -Trend troponin, likely demand ischemia -Defer further work up -Replete electrolytes -Manage blood pressures -Trach care -Poor prognosis Subjective Cardiovascular: Reports: no symptoms Respiratory: Reports: no symptoms Gastrointestinal/Abdominal: Reports: no symptoms Genitourinary: Reports: no symptoms Subjective NO acute events, nursing notes reviewed, remains intubated in ICU, tachycardic, LFT remain elevated, tooth causing tongue laceration, no surgery per OMFS Objective Last 24 Hour Vital Signs Date Time Temp Pulse Resp B/P (MAP) Pulse Ox O2 Delivery O2 Flow Rate FiO2 11/19/18 21:04 102 21 30 11/19/18 20:00 98.2 97 20 119/64 (82) 100 11/19/18 19:06 95 22 30 11/19/18 16:57 108 11/19/18 16:49 97.0 11/19/18 16:42 102 21 30 11/19/18 16:00 101.2 106 21 151/76 (101) 99 11/19/18 16:00 30 11/19/18 16:00 Mechanical Ventilator 11/19/18 15:30 108 24 30 11/19/18 14:28 114 156/71 11/19/18 14:28 156/71 11/19/18 12:30 114 26 30 11/19/18 12:00 30 11/19/18 12:00 99.0 113 21 156/71 (99) 100 11/19/18 12:00 110 11/19/18 12:00 Mechanical Ventilator 11/19/18 10:30 104 22 30 11/19/18 08:50 97 11/19/18 08:42 103 25 30 11/19/18 08:16 99 156/99 11/19/18 08:00 101.5 99 20 156/99 (118) 100 11/19/18 08:00 Mechanical Ventilator 11/19/18 08:00 30 11/19/18 06:42 100 23 30 11/19/18 05:11 121/70 11/19/18 05:10 101 121/70 11/19/18 04:43 100 19 30 11/19/18 04:00 102 11/19/18 04:00 Mechanical Ventilator 11/19/18 04:00 30 11/19/18 04:00 101.2 103 20 150/86 (107) 100 11/19/18 02:52 101 23 30 11/19/18 01:31 98 25 30 11/19/18 00:00 97.2 94 20 124/67 (86) 100 11/19/18 00:00 Mechanical Ventilator 11/18/18 23:48 92 11/18/18 23:10 93 18 30 General Appearance: no apparent distress, on vent EENT: PERRL/EOMI, normal ENT inspection, TMs normal, pharynx normal Neck: non-tender, normal alignment, supple, no JVD Rhythm: NSR Cardiovascular: normal peripheral pulses, normal rate Respiratory/Chest: chest wall non-tender, lungs clear, no accessory muscle use Abdomen: normal bowel sounds, soft, no mass Extremities: normal range of motion, normal inspection Neurologic: insole rasper II-XII grossly normal, no motor/sensory deficits Intake and Output 11/18/18 11/19/18 19:00 07:00 Intake Total 1205 ml 1088.783 ml Output Total 550 ml 750 ml Balance 655 ml 338.783 ml Intake Free Water 160 ml 50 ml IV Total 200 ml 518.783 ml Tube Feeding 845 ml 520 ml Output Urine Total 550 ml 750 ml # Bowel Movements 1 2 Laboratory Tests Test 11/19/18 03:45 White Blood Count 11.6 K/UL (4.8-10.8) H Red Blood Count 3.53 M/UL (4.20-5.40) L Hemoglobin 8.9 G/DL (12.0-16.0) L Hematocrit 27.8 % (37.0-47.0) L Mean Corpuscular Volume 79 FL (80-99) L Mean Corpuscular Hemoglobin 25.2 PG (27.0-31.0) L Mean Corpuscular Hemoglobin Concent 32.0 G/DL (32.0-36.0) Red Cell Distribution Width 22.6 % (11.6-14.8) H Platelet Count 640 K/UL (150-450) H Mean Platelet Volume 5.5 FL (6.5-10.1) L Neutrophils (%) (Auto) 79.7 % (45.0-75.0) H Lymphocytes (%) (Auto) 8.4 % (20.0-45.0) L Monocytes (%) (Auto) 8.3 % (1.0-10.0) Eosinophils (%) (Auto) 3.0 % (0.0-3.0) Basophils (%) (Auto) 0.7 % (0.0-2.0) Sodium Level 138 MMOL/L (136-145) Potassium Level 4.4 MMOL/L (3.5-5.1) Chloride Level 101 MMOL/L (98-107) Carbon Dioxide Level 32 MMOL/L (21-32) Anion Gap 5 mmol/L (5-15) Blood Urea Nitrogen 13 mg/dL (7-18) Creatinine 0.5 MG/DL (0.55-1.30) L Estimat Glomerular Filtration Rate mL/min (>60) Glucose Level 114 MG/DL (74-106) H Calcium Level 8.4 MG/DL (8.5-10.1) L Total Bilirubin 0.2 MG/DL (0.2-1.0) Aspartate Amino Transf (AST/SGOT) 160 U/L (15-37) H Alanine Aminotransferase (ALT/SGPT) 145 U/L (12-78) H Alkaline Phosphatase 272 U/L (46-116) H Total Protein 6.2 G/DL (6.4-8.2) L Albumin 1.3 G/DL (3.4-5.0) L Globulin 4.9 g/dL Albumin/Globulin Ratio 0.3 (1.0-2.7) L Eloy Bryson MD Nov 19, 2018 22:04
[2018-11-20] VITALS: BP 132/71
[2018-11-20] MEDS: Acetaminophen 650mg/20.3ml GT PRN ×2 (02:15→20:25)
--- NOTE | 2018-11-20 02:16 | NUR ---
PRONOUNCEMENT: No Code. Called to pronounce patient. Absence of spontaneous respirations, no cardiac or breath sounds on auscultation. Pupils fixed and dilated. No carotid pulse or chest movement. Patient at []. [] notified PER []. Family was notified at []. Addendum: 11/20/18 at 0222 by FERMIN CHARLTON RN made an error.
--- NOTE | 2018-11-20 02:22 | NUR ---
NURSE NOTES: administered tyenol via Gtube due to elevated temp 100.2. applied cooling measure. will recheck the pt's temperature, and continue to monitor pt.
[2018-11-20 04:00] VITALS: BP 125/65
[2018-11-20] MEDS: Valproic Acid 250mg/5ml Liquid GT SCH ×3 (05:07→21:41)
[2018-11-20] MEDS: Magnesium Oxide 400mg tab GT SCH ×3 (05:07→21:42)
[2018-11-20] MEDS: Tums 500mg GT SCH ×3 (05:08→21:42)
[2018-11-20] MEDS: Labetalol 200mg tab GT SCH ×3 (05:08→21:42)
[2018-11-20] MEDS: HydrALAZINE 10mg Tab GT SCH ×3 (05:09→21:43)
[2018-11-20] MEDS: Phenytoin Susp 100mg/4ml GT SCH ×3 (05:09→21:47)
[2018-11-20] MEDS: NovoLOG Insulin Flexpen SUBQ SCH ×5 (05:22→23:55)
[2018-11-20 05:25] LABS: HEMATOCRIT 23.8 % (37.0-47.0); HEMOGLOBIN 7.8 G/DL (12.0-16.0); MEAN CORPUSCULAR VOLUME 78 FL (80-99); PLATELET COUNT 495 K/UL (150-450); RED BLOOD COUNT 3.04 M/UL (4.20-5.40); RED CELL DISTRIBUTION WIDTH 22.8 % (11.6-14.8); WHITE BLOOD COUNT 13.3 K/UL (4.8-10.8)
[2018-11-20 06:08] LABS: ALANINE AMINOTRANSFERASE 124 U/L (12-78); ALBUMIN 1.1 G/DL (3.4-5.0); ALBUMIN/GLOBULIN RATIO 0.3 (1.0-2.7); ALKALINE PHOSPHATASE 248 U/L (46-116); ANION GAP 6 mmol/L (5-15); ASPARTATE AMINO TRANSFERASE 130 U/L (15-37); BILIRUBIN,TOTAL 0.2 MG/DL (0.2-1.0); BLOOD UREA NITROGEN 14 mg/dL (7-18); CALCIUM 7.9 MG/DL (8.5-10.1); CARBON DIOXIDE 32 MMOL/L (21-32); CHLORIDE 101 MMOL/L (98-107); CREATININE 0.4 MG/DL (0.55-1.30); POTASSIUM 3.6 MMOL/L (3.5-5.1); SODIUM 139 MMOL/L (136-145)
--- NOTE | 2018-11-20 06:24 | NUR ---
NURSE NOTES: notified Dr. Crews regarding elevated WBC 13.3. will wait for call back
--- NOTE | 2018-11-20 07:13 | NUR ---
HAND-OFF: Report given to Mirella DESHPANDE.
--- NOTE | 2018-11-20 07:15 | NUR ---
NURSE NOTES: Received bedside report from Rosalva RN. Pt. in bed, obtunded. No sign of distress. On mech. vent. with setting of AC14/VT375/FiO2 of 30%/P5. No grimacing noted. HOB elevated at all times. On GTF of Glucerna 1.2 @ 65cc/hr. Tolerating well. PICC line at right upper arm with 2 lumen patent/intact. F/C in placed patent/intact draining yellow colored urine. Bed in low position, locked. Call light within reach. Will cont. to monitor.
[2018-11-20 08:00] VITALS: BP 131/48
[2018-11-20] MEDS: PHENobarbital Elixir 30mg/7.5ml GT SCH ×2 (08:20→18:01)
[2018-11-20] MEDS: Vancomycin 750 MG in NS 275 ML IVPB SCH ×2 (08:20→20:28)
[2018-11-20] MEDS: levETIRAcetam 500mg/5ml Liquid GT SCH ×2 (08:21→20:26)
[2018-11-20] MEDS: Sennosides 8.6mg tab GT SCH ×2 (08:21→20:26)
[2018-11-20] MEDS: Furosemide 40mg tab GT SCH ×2 (08:26→20:26)
[2018-11-20] MEDS: Enoxaparin 40mg Inj SUBQ SCH (08:28)
[2018-11-20] MEDS: Levemir Flexpen SUBQ SCH ×2 (08:29→20:27)
--- NOTE | 2018-11-20 09:02 | General Progress Note ---
Assessment/Plan Status: stable Assessment/Plan: 78-year-old female who is trach dependent who [facility] and found to have UTI and bacteremia. #Sepsis secondary to UTI, GPC Staph Epidermidis bacteremia, Line associated infection an E. Coli isolated from the cath tip- the patient arrived to the Hospital with PICC ID consult appreciate Rec Vancomycin and Meropenem started 11/16 ( Zosyn stopped) , fungal coverage with diflucan added 11/18 Pseudomonal pneumonia, UTI due to Enterococcus F, VRE colonized Removed PICC and place new line 11/13/18 Continue antibiotics per ID Repeat blood cultures 11/12/18 NGT noted Echo to eval for vegetation negative sputum cultures with pseudomonas Chest x-ray reviewed: Atelectasis persistent fevers. CT abdomen pelvis per ID # Transaminitis - trend lft's - GI consult, appreciate recs - ab us: reviewed - f/u hep panel #Elevated troponin secondary to sepsis versus ACS Cardiology consult, appreciate recs Medications per cardiology #Hypertension- improved Continue current medications, hydralazine as needed hypertension #Vent dependent Pulmonary consult, appreciate recs Vent management per pulmonary #Hypokalemia Replace, continue to monitor # Chronic tongue wound Supportive care On examination the patient has a sharp lower incisor present that is likely the culprit for the tongue laceration when she was intubated in the prior hospitalization at [facility] OMFS consultation Dr. Benavides completed ( no note left ) and I spoke with him over the phone after the visit. He does not recommend any surgery. ONLY bite block MOLT if available to decompress the tongue and get the remainder teeth out of the tongue way. Keep moisture in the lips and tongue. I updated Dr. Hylton today # History of mood disorder Seen by psychiatry and on Depakote. Level was checked # Seizure history - Discussed with Dr. Eric who knew the patient from [facility] and confirmed that she did have seizure activity and was on multiple AED regimen. - Will continue Depakote ( 28 level ) and (Phenytoin 4.3 ) - no active seizure activity at this time. Keep current dose. - Both Dr. Eric and Mariana not available to come [place] [facility] [place] and no acute need at this time. #Diabetes Mellitus - glucose noted in the 90-110's - Decreased Levemir to 4 units q 12 hours # Disposition - SNF when cleared by ID. Still febrile. Time of note may not reflect time of patient encounter Full code timing of this note may not reflect time of encounter. I spent 40 minutes on this encounter. Great than 50 percent spent of care planning. Subjective Date patient seen: Nov 20, 2018 ROS Limited/Unobtainable: Yes Allergies: Coded Allergies: Crayfish (Unverified Allergy, Unknown, 11/11/18) Uncoded Allergies: Crawfish (Allergy, Unknown, 11/09/18) Subjective obtunded on vent, fever noted tmax 101.5 Objective Last 24 Hour Vital Signs Date Time Temp Pulse Resp B/P (MAP) Pulse Ox O2 Delivery O2 Flow Rate FiO2 11/20/18 09:00 90 26 30 11/20/18 08:21 90 131/48 11/20/18 08:01 90 24 30 11/20/18 08:00 30 11/20/18 08:00 100.0 91 20 131/48 (75) 100 11/20/18 08:00 Mechanical Ventilator 11/20/18 05:18 89 20 30 11/20/18 05:09 125/65 11/20/18 05:08 94 125/65 11/20/18 04:00 98.1 93 20 125/65 (85) 100 11/20/18 04:00 30 11/20/18 04:00 Mechanical Ventilator 11/20/18 03:54 93 11/20/18 03:30 96 19 30 11/20/18 02:45 98.1 11/20/18 00:35 95 21 30 11/20/18 00:00 Mechanical Ventilator 11/20/18 00:00 99.9 95 20 132/71 (91) 100 11/19/18 23:30 95 11/19/18 23:00 95 24 30 11/19/18 22:15 139/66 11/19/18 22:14 97 139/66 11/19/18 21:04 102 21 30 11/19/18 20:00 98.2 97 20 119/64 (82) 100 11/19/18 20:00 30 11/19/18 20:00 Mechanical Ventilator 11/19/18 19:37 96 11/19/18 19:06 95 22 30 11/19/18 16:57 108 11/19/18 16:42 102 21 30 11/19/18 16:00 101.2 106 21 151/76 (101) 99 11/19/18 16:00 30 11/19/18 16:00 Mechanical Ventilator 11/19/18 15:30 108 24 30 11/19/18 14:28 114 156/71 11/19/18 14:28 156/71 11/19/18 12:30 114 26 30 11/19/18 12:00 30 11/19/18 12:00 99.0 113 21 156/71 (99) 100 11/19/18 12:00 110 11/19/18 12:00 Mechanical Ventilator 11/19/18 10:30 104 22 30 Intake and Output 11/19/18 11/20/18 19:00 07:00 Intake Total 735 ml 1045.000 ml Output Total 1700 ml Balance 735 ml -655.000 ml Intake Free Water 150 ml 50 ml IV Total 475.000 ml Tube Feeding 585 ml 520 ml Output Urine Total 1700 ml # Bowel Movements 2 Laboratory Tests 11/20/18 04:15: White Blood Count 13.3H, Red Blood Count 3.04L, Hemoglobin 7.8L, Hematocrit 23.8L, Mean Corpuscular Volume 78L, Mean Corpuscular Hemoglobin 25.6L, Mean Corpuscular Hemoglobin Concent 32.8, Red Cell Distribution Width 22.8H, Platelet Count 495H, Mean Platelet Volume 5.4L, Neutrophils (%) (Auto) , Lymphocytes (%) (Auto) , Monocytes (%) (Auto) , Eosinophils (%) (Auto) , Basophils (%) (Auto) , Sodium Level 139, Potassium Level 3.6, Chloride Level 101 , Carbon Dioxide Level 32, Anion Gap 6, Blood Urea Nitrogen 14, Creatinine 0.4L , Estimat Glomerular Filtration Rate , Glucose Level 118H, Calcium Level 7.9L, Total Bilirubin 0.2, Aspartate Amino Transf (AST/SGOT) 130H, Alanine Aminotransferase (ALT/SGPT) 124H, Alkaline Phosphatase 248H, Total Protein 5.4L , Albumin 1.1L, Globulin 4.3, Albumin/Globulin Ratio 0.3L Height (Feet): 5 Height (Inches): 8.00 Weight (Pounds): 205 Objective General Appearance: no apparent distress, other - unresponsive on vent EENT: PERRL/EOMI, other - enlarged tongue protruding Neck: supple Cardiovascular: normal rate, regular rhythm Respiratory/Chest: lungs clear Abdomen: soft Neurologic: unresponsive Neftaly Walters M.D. Nov 20, 2018 09:02
--- NOTE | 2018-11-20 09:28 | Diagnostic Imaging Report ---
EXAM: XR Chest, 1 View CLINICAL HISTORY: INFECT TECHNIQUE: Frontal view of the chest. COMPARISON: Chest x-ray 11/16/18 819 FINDINGS: Lungs: Mild interstitial prominence, slightly increased. Continued elevated right hemidiaphragm with right lung base opacity. Pleural space: Unremarkable. No pneumothorax. Heart: Mildly enlarged. Mediastinum: Unremarkable. Bones/joints: Unremarkable. Tubes, lines and devices: Tracheostomy tube. Stable right PICC line. IMPRESSION: 1. Mild interstitial prominence, slightly increased. 2. Continued elevated right hemidiaphragm with right lung base opacity.
--- NOTE | 2018-11-20 10:23 | GI Progress Note ---
Assessment/Plan Problems: (1) Abnormal LFTs ICD Codes: R94.5 - Abnormal results of liver function studies SNOMED: 670059528 (2) Decubitus skin ulcer ICD Codes: L89.90 - Pressure ulcer of unspecified site, unspecified stage SNOMED: 940447971 (3) Protein calorie malnutrition ICD Codes: E46 - Unspecified protein-calorie malnutrition SNOMED: 136898015 (4) Colon adenocarcinoma ICD Codes: C18.9 - Malignant neoplasm of colon, unspecified SNOMED: 844673651 (5) Sepsis ICD Codes: A41.9 - Sepsis, unspecified organism SNOMED: 46173843 (6) Tracheostomy dependence ICD Codes: Z93.0 - Tracheostomy status SNOMED: 205269521 (7) Gastrostomy in place ICD Codes: Z93.1 - Gastrostomy status SNOMED: 40094865, 07271519, 535253488 Status: unchanged Status Narrative Discussed with Dr. Humphries. Assessment/Plan Assessment - Iron deficiency anemia - abnormal LFT - ? meds, passive congestion - dysphagia, s/p GT - Resp, failure, s/p Trach - hepatitis panel negative Recommendations - Continue TF - Monitor LFT - - IV Iron - follow CBC - Conservative approach given poor health The patient was seen and examined at bedside and all new and available data was reviewed in the patients chart. I agree with the above findings, impression and plan. (Patient seen earlier today. Signature stamp does not reflect patient encounter time.). - Casper Humphries MD Subjective Subjective limited Objective Last 24 Hour Vital Signs Date Time Temp Pulse Resp B/P (MAP) Pulse Ox O2 Delivery O2 Flow Rate FiO2 11/20/18 09:00 90 26 30 11/20/18 08:21 90 131/48 11/20/18 08:01 90 24 30 11/20/18 08:00 30 11/20/18 08:00 100.0 91 20 131/48 (75) 100 11/20/18 08:00 Mechanical Ventilator 11/20/18 05:18 89 20 30 11/20/18 05:09 125/65 11/20/18 05:08 94 125/65 11/20/18 04:00 98.1 93 20 125/65 (85) 100 11/20/18 04:00 30 11/20/18 04:00 Mechanical Ventilator 11/20/18 03:54 93 11/20/18 03:30 96 19 30 11/20/18 02:45 98.1 11/20/18 00:35 95 21 30 11/20/18 00:00 Mechanical Ventilator 11/20/18 00:00 99.9 95 20 132/71 (91) 100 11/19/18 23:30 95 11/19/18 23:00 95 24 30 11/19/18 22:15 139/66 11/19/18 22:14 97 139/66 11/19/18 21:04 102 21 30 11/19/18 20:00 98.2 97 20 119/64 (82) 100 11/19/18 20:00 30 11/19/18 20:00 Mechanical Ventilator 11/19/18 19:37 96 11/19/18 19:06 95 22 30 11/19/18 16:57 108 11/19/18 16:42 102 21 30 11/19/18 16:00 101.2 106 21 151/76 (101) 99 11/19/18 16:00 30 11/19/18 16:00 Mechanical Ventilator 11/19/18 15:30 108 24 30 11/19/18 14:28 114 156/71 11/19/18 14:28 156/71 11/19/18 12:30 114 26 30 11/19/18 12:00 30 11/19/18 12:00 99.0 113 21 156/71 (99) 100 11/19/18 12:00 110 11/19/18 12:00 Mechanical Ventilator 11/19/18 10:30 104 22 30 Intake and Output 11/19/18 11/20/18 19:00 07:00 Intake Total 735 ml 1045.000 ml Output Total 1700 ml Balance 735 ml -655.000 ml Intake Free Water 150 ml 50 ml IV Total 475.000 ml Tube Feeding 585 ml 520 ml Output Urine Total 1700 ml # Bowel Movements 2 Laboratory Tests Test 11/20/18 04:15 White Blood Count 13.3 K/UL (4.8-10.8) H Red Blood Count 3.04 M/UL (4.20-5.40) L Hemoglobin 7.8 G/DL (12.0-16.0) L Hematocrit 23.8 % (37.0-47.0) L Mean Corpuscular Volume 78 FL (80-99) L Mean Corpuscular Hemoglobin 25.6 PG (27.0-31.0) L Mean Corpuscular Hemoglobin Concent 32.8 G/DL (32.0-36.0) Red Cell Distribution Width 22.8 % (11.6-14.8) H Platelet Count 495 K/UL (150-450) H Mean Platelet Volume 5.4 FL (6.5-10.1) L Neutrophils (%) (Auto) % (45.0-75.0) Lymphocytes (%) (Auto) % (20.0-45.0) Monocytes (%) (Auto) % (1.0-10.0) Eosinophils (%) (Auto) % (0.0-3.0) Basophils (%) (Auto) % (0.0-2.0) Sodium Level 139 MMOL/L (136-145) Potassium Level 3.6 MMOL/L (3.5-5.1) Chloride Level 101 MMOL/L (98-107) Carbon Dioxide Level 32 MMOL/L (21-32) Anion Gap 6 mmol/L (5-15) Blood Urea Nitrogen 14 mg/dL (7-18) Creatinine 0.4 MG/DL (0.55-1.30) L Estimat Glomerular Filtration Rate mL/min (>60) Glucose Level 118 MG/DL (74-106) H Calcium Level 7.9 MG/DL (8.5-10.1) L Total Bilirubin 0.2 MG/DL (0.2-1.0) Aspartate Amino Transf (AST/SGOT) 130 U/L (15-37) H Alanine Aminotransferase (ALT/SGPT) 124 U/L (12-78) H Alkaline Phosphatase 248 U/L (46-116) H Total Protein 5.4 G/DL (6.4-8.2) L Albumin 1.1 G/DL (3.4-5.0) L Globulin 4.3 g/dL Albumin/Globulin Ratio 0.3 (1.0-2.7) L Height (Feet): 5 Height (Inches): 8.00 Weight (Pounds): 205 General Appearance: no apparent distress Cardiovascular: normal rate Respiratory/Chest: no respiratory distress Abdominal Exam: normal bowel sounds, non tender, soft, GT site Extremities: non-tender Aysha Sykes NP Nov 20, 2018 10:23
[2018-11-20 12:00] VITALS: BP 140/72
--- NOTE | 2018-11-20 12:18 | Pulmonology Progress Note ---
Assessment/Plan Problems: (1) Ventilator dependence (2) Tracheostomy dependence (3) UTI (urinary tract infection) (4) Fever (5) Anoxic brain damage (6) Tongue abnormality (7) Seizure disorder (8) Colon adenocarcinoma (9) HTN (hypertension) (10) Sepsis (11) Diabetes (12) Abnormal LFTs (13) Protein calorie malnutrition (14) Gastrostomy in place (15) shelter resident (16) Decubitus skin ulcer Assessment/Plan Continue ventilatory support/settings reviewed Titrate down FiO2 to keep SaO2 > 90% Optimize pulmonary hygiene/mobilize as tolerated RTC and PRN HHN's Abx per ID, F/U Cx's F/U cards recs Monitor volumes and renal function DVT Px: LMWH Needs to be seen by OMFS or DDS, needs a tooth extraction FC, continue to discuss GOC Wound care Subjective Allergies: Coded Allergies: Crayfish (Unverified Allergy, Unknown, 11/11/18) Uncoded Allergies: Crawfish (Allergy, Unknown, 11/09/18) Subjective Tm 100 VSS stable on vent no sig secretions no distress Objective Last 24 Hour Vital Signs Date Time Temp Pulse Resp B/P (MAP) Pulse Ox O2 Delivery O2 Flow Rate FiO2 11/20/18 09:00 90 26 30 11/20/18 08:21 90 131/48 11/20/18 08:01 90 24 30 11/20/18 08:00 30 11/20/18 08:00 100.0 91 20 131/48 (75) 100 11/20/18 08:00 Mechanical Ventilator 11/20/18 07:38 86 11/20/18 05:18 89 20 30 11/20/18 05:09 125/65 11/20/18 05:08 94 125/65 11/20/18 04:00 98.1 93 20 125/65 (85) 100 11/20/18 04:00 30 11/20/18 04:00 Mechanical Ventilator 11/20/18 03:54 93 11/20/18 03:30 96 19 30 11/20/18 02:45 98.1 11/20/18 00:35 95 21 30 11/20/18 00:00 Mechanical Ventilator 11/20/18 00:00 99.9 95 20 132/71 (91) 100 11/19/18 23:30 95 11/19/18 23:00 95 24 30 11/19/18 22:15 139/66 11/19/18 22:14 97 139/66 11/19/18 21:04 102 21 30 11/19/18 20:00 98.2 97 20 119/64 (82) 100 11/19/18 20:00 30 11/19/18 20:00 Mechanical Ventilator 11/19/18 19:37 96 11/19/18 19:06 95 22 30 11/19/18 16:57 108 11/19/18 16:42 102 21 30 11/19/18 16:00 101.2 106 21 151/76 (101) 99 11/19/18 16:00 30 11/19/18 16:00 Mechanical Ventilator 11/19/18 15:30 108 24 30 11/19/18 14:28 114 156/71 11/19/18 14:28 156/71 11/19/18 12:30 114 26 30 Intake and Output 11/19/18 11/20/18 19:00 07:00 Intake Total 735 ml 1045.000 ml Output Total 1700 ml Balance 735 ml -655.000 ml Intake Free Water 150 ml 50 ml IV Total 475.000 ml Tube Feeding 585 ml 520 ml Output Urine Total 1700 ml # Bowel Movements 2 General Appearance: no acute distress, cachetic, other - non verbal HEENT: normocephalic, atraumatic, anicteric, mucous membranes moist, status post trach, other - lip edema and macroglossia Respiratory/Chest: chest wall non-tender, lungs clear, normal breath sounds, no respiratory distress, no accessory muscle use Cardiovascular: normal peripheral pulses, normal rate, regular rhythm Abdomen: normal bowel sounds, soft, non tender, no organomegaly, non distended , no mass, other - GT Extremities: no cyanosis, no clubbing, no edema Laboratory Tests 11/20/18 04:15: White Blood Count 13.3H, Red Blood Count 3.04L, Hemoglobin 7.8L, Hematocrit 23.8L, Mean Corpuscular Volume 78L, Mean Corpuscular Hemoglobin 25.6L, Mean Corpuscular Hemoglobin Concent 32.8, Red Cell Distribution Width 22.8H, Platelet Count 495H, Mean Platelet Volume 5.4L, Neutrophils (%) (Auto) , Lymphocytes (%) (Auto) , Monocytes (%) (Auto) , Eosinophils (%) (Auto) , Basophils (%) (Auto) , Sodium Level 139, Potassium Level 3.6, Chloride Level 101 , Carbon Dioxide Level 32, Anion Gap 6, Blood Urea Nitrogen 14, Creatinine 0.4L , Estimat Glomerular Filtration Rate , Glucose Level 118H, Calcium Level 7.9L, Total Bilirubin 0.2, Aspartate Amino Transf (AST/SGOT) 130H, Alanine Aminotransferase (ALT/SGPT) 124H, Alkaline Phosphatase 248H, Total Protein 5.4L , Albumin 1.1L, Globulin 4.3, Albumin/Globulin Ratio 0.3L Current Medications Medications (Trade) Dose Ordered Sig/Lupe Route PRN Reason Start Time Stop Time Status Last Admin Dose Admin Acetaminophen (Tylenol) 650 mg Q4H PRN GT Mild Pain/Temp > 100.5 11/09/18 05:00 12/09/18 04:59 11/20/18 02:15 Albuterol/ Ipratropium (Albuterol/ Ipratropium) 3 ml Q4H PRN HHN Shortness of Breath 11/17/18 12:30 11/22/18 12:29 Amlodipine Besylate (Norvasc) 10 mg DAILY GT 11/09/18 09:00 12/09/18 08:59 11/20/18 08:21 Bisacodyl (Dulcolax) 10 mg DAILY PRN RECTAL Constipation 11/09/18 05:00 12/09/18 04:59 Calcium Carbonate (Tums) 500 mg EVERY 8 HOURS GT 11/09/18 14:00 12/09/18 08:59 11/20/18 05:08 Chlorhexidine Gluconate (Corazon-Hex 2%) 1 applic DAILY@1999 TOPIC 11/12/18 20:00 12/12/18 19:59 11/19/18 20:49 Dextrose (Dextrose 50%) 25 ml Q30M PRN IV Hypoglycemia 11/09/18 04:45 12/09/18 04:44 Dextrose (Dextrose 50%) 50 ml Q30M PRN IV Hypoglycemia 11/09/18 04:45 12/09/18 04:44 11/09/18 09:09 Enoxaparin Sodium (Lovenox) 40 mg DAILY SUBQ 11/09/18 09:00 12/09/18 08:59 11/20/18 08:28 Famotidine (Pepcid) 20 mg EVERY 12 HOURS GT 11/09/18 21:00 12/09/18 08:59 11/20/18 08:21 Fluconazole/ Sodium Chloride 100 ml @ 100 mls/hr Q24H IV 11/18/18 16:00 11/25/18 15:59 11/19/18 16:19 Furosemide (Lasix) 40 mg EVERY 12 HOURS GT 11/09/18 09:00 12/09/18 08:59 11/20/18 08:26 Hydralazine HCl (Apresoline) 5 mg EVERY 8 HOURS GT 11/09/18 06:00 12/09/18 05:59 11/20/18 05:09 Insulin Aspart (NovoLOG) Q6HR SUBQ 11/09/18 06:00 12/09/18 05:59 11/20/18 05:22 Insulin Detemir (Levemir) 4 units EVERY 12 HOURS SUBQ 11/16/18 21:00 12/09/18 08:59 11/20/18 08:29 Labetalol HCl (Normodyne) 200 mg Q8HR GT 11/09/18 06:00 12/09/18 05:59 11/20/18 05:08 Levetiracetam (Keppra) 1,500 mg Q12HR GT 11/09/18 09:00 12/09/18 08:59 11/20/18 08:21 Magnesium Hydroxide (Mom) 30 ml DAILY PRN GT Constipation 11/09/18 05:00 12/09/18 04:59 Magnesium Oxide (Mag-Ox 400mg) 400 mg EVERY 8 HOURS GT 11/09/18 14:00 12/09/18 08:59 11/20/18 05:07 Meropenem 1 gm/ Sodium Chloride 100 ml @ 200 mls/hr Q8HR IVPB 11/16/18 14:00 11/21/18 23:59 11/20/18 05:07 Ondansetron HCl (Zofran) 4 mg Q6H PRN GT Nausea & Vomiting 11/09/18 05:00 12/09/18 04:59 Phenobarbital (PHENobarbital) 60 mg BID GT 11/09/18 09:00 12/09/18 08:59 11/20/18 08:20 Phenytoin (Dilantin) 100 mg Q8HR GT 11/09/18 06:00 12/09/18 05:59 11/20/18 05:09 Polyethylene Glycol (Miralax) 17 gm DAILYPRN PRN GT Constipation 11/14/18 10:30 12/12/18 10:29 Sennosides (Senokot) 8.6 mg EVERY 12 HOURS GT 11/09/18 21:00 12/09/18 08:59 11/20/18 08:21 Valproic Acid (Depakene) 500 mg EVERY 8 HOURS GT 11/09/18 06:00 12/09/18 05:59 11/20/18 05:07 Vancomycin HCl (Vanco rx to dose) 1 ea DAILY PRN MISC Per rx protocol 11/10/18 16:45 12/10/18 16:44 Vancomycin HCl 750 mg/Sodium Chloride 275 ml @ 183.333 mls/hr Q12HR@0800,2000 IVPB 11/16/18 20:00 11/21/18 19:59 11/20/18 08:20 Balbir Dejesus MD Nov 20, 2018 12:18
--- NOTE | 2018-11-20 13:52 | Surgery Progress Note ---
Surgery Progress Note Subjective Symptoms: other Objective Last 24 Hour Vital Signs Date Time Temp Pulse Resp B/P (MAP) Pulse Ox O2 Delivery O2 Flow Rate FiO2 11/20/18 13:05 98 21 30 11/20/18 12:20 94 19 30 11/20/18 09:00 90 26 30 11/20/18 08:21 90 131/48 11/20/18 08:01 90 24 30 11/20/18 08:00 30 11/20/18 08:00 100.0 91 20 131/48 (75) 100 11/20/18 08:00 Mechanical Ventilator 11/20/18 07:38 86 11/20/18 05:18 89 20 30 11/20/18 05:09 125/65 11/20/18 05:08 94 125/65 11/20/18 04:00 98.1 93 20 125/65 (85) 100 11/20/18 04:00 30 11/20/18 04:00 Mechanical Ventilator 11/20/18 03:54 93 11/20/18 03:30 96 19 30 11/20/18 02:45 98.1 11/20/18 00:35 95 21 30 11/20/18 00:00 Mechanical Ventilator 11/20/18 00:00 99.9 95 20 132/71 (91) 100 11/19/18 23:30 95 11/19/18 23:00 95 24 30 11/19/18 22:15 139/66 11/19/18 22:14 97 139/66 11/19/18 21:04 102 21 30 11/19/18 20:00 98.2 97 20 119/64 (82) 100 11/19/18 20:00 30 11/19/18 20:00 Mechanical Ventilator 11/19/18 19:37 96 11/19/18 19:06 95 22 30 11/19/18 16:57 108 11/19/18 16:42 102 21 30 11/19/18 16:00 101.2 106 21 151/76 (101) 99 11/19/18 16:00 30 11/19/18 16:00 Mechanical Ventilator 11/19/18 15:30 108 24 30 11/19/18 14:28 114 156/71 11/19/18 14:28 156/71 I&O Intake and Output 11/19/18 11/20/18 19:00 07:00 Intake Total 735 ml 1045.000 ml Output Total 1700 ml Balance 735 ml -655.000 ml Intake Free Water 150 ml 50 ml IV Total 475.000 ml Tube Feeding 585 ml 520 ml Output Urine Total 1700 ml # Bowel Movements 2 Dressing: other Wound: other Drains: other Cardiovascular: RSR Respiratory: decreased breath sounds Abdomen: soft, present bowel sounds, other, non-distended Extremities: no cyanosis, other Laboratory Tests Test 11/20/18 04:15 White Blood Count 13.3 K/UL (4.8-10.8) H Red Blood Count 3.04 M/UL (4.20-5.40) L Hemoglobin 7.8 G/DL (12.0-16.0) L Hematocrit 23.8 % (37.0-47.0) L Mean Corpuscular Volume 78 FL (80-99) L Mean Corpuscular Hemoglobin 25.6 PG (27.0-31.0) L Mean Corpuscular Hemoglobin Concent 32.8 G/DL (32.0-36.0) Red Cell Distribution Width 22.8 % (11.6-14.8) H Platelet Count 495 K/UL (150-450) H Mean Platelet Volume 5.4 FL (6.5-10.1) L Neutrophils (%) (Auto) % (45.0-75.0) Lymphocytes (%) (Auto) % (20.0-45.0) Monocytes (%) (Auto) % (1.0-10.0) Eosinophils (%) (Auto) % (0.0-3.0) Basophils (%) (Auto) % (0.0-2.0) Sodium Level 139 MMOL/L (136-145) Potassium Level 3.6 MMOL/L (3.5-5.1) Chloride Level 101 MMOL/L (98-107) Carbon Dioxide Level 32 MMOL/L (21-32) Anion Gap 6 mmol/L (5-15) Blood Urea Nitrogen 14 mg/dL (7-18) Creatinine 0.4 MG/DL (0.55-1.30) L Estimat Glomerular Filtration Rate mL/min (>60) Glucose Level 118 MG/DL (74-106) H Calcium Level 7.9 MG/DL (8.5-10.1) L Total Bilirubin 0.2 MG/DL (0.2-1.0) Aspartate Amino Transf (AST/SGOT) 130 U/L (15-37) H Alanine Aminotransferase (ALT/SGPT) 124 U/L (12-78) H Alkaline Phosphatase 248 U/L (46-116) H Total Protein 5.4 G/DL (6.4-8.2) L Albumin 1.1 G/DL (3.4-5.0) L Globulin 4.3 g/dL Albumin/Globulin Ratio 0.3 (1.0-2.7) L Plan Problems: (1) Fever (2) Tongue abnormality Assessment & Plan: patients jaw clenched closed and tongue has been stuck for some time. tongue split from middle teeth and now in two. edema and unable to reduce keep tongue moist. apply lube jelly prn dryness. will monitor do not recommend surgical intervention for this current medical condition (3) Tracheostomy dependence (4) Sepsis Assessment & Plan: gb no stones 6mm polyp no acute surgical intervention planned trend labs DAILY ESTIMATED NEEDS: Needs based on Critical care, sepsis, wound 60kg adj 22-30 kcals/kg [id number] total kcals 1.25-2 g protein/kg 75-120 g total protein Fluid per MD, on lasix NUTRITION DIAGNOSIS: * Swallowing difficulty r/t respiratory status as evidenced by pt is vent dep via trach and PEG dep. * Increased kcal and pro needs r/t wound healing and sepsis as evidenced by pt w/ sacral and R heel wounds, febrile (Tmax 101.5). CURRENT TF: Jevity 1.2 @50 ml/hr x16 hrs ENTERAL NUTRITION RECOMMENDATIONS: Glucerna 1.2 @65ml/hr x18 hrs + Prosource x1 daily to provide 1170ml, 1404 kcal, 70g pro + 11g pro, 942 free H2O - REC TF CHANGE AND INCREASE TO BETTER MEET EST NEEDS - TF TO BE HELD FOR ONE HR BEFORE AND AFTER DILANTIN MEDS - START @20ML/HR, ADVANCE TOLERATED 15ML/HR Q4-6 HRS TO GOAL - FLUSH PER MD, HOB OVRE 30 DEGREES ADDITIONAL RECOMMENDATIONS: 1) CALIBRATED BED SCALE W/ ADDED P200 MATTRESS + PUMP 2) ON LASIX, MONITOR LYTES AND HYDRATION STATUS DAILY 3) TF TO RUN A MAX OF 18 HRS/DAY W/ DILANTIN TID PER PHARMACY 4) REC TF CHANGE TO CARB CONTROL FORMULA 5) WOUND CARE: ADD CHAYITO BID + VIT C 250MG DAILY (5) Fever (6) Decubitus skin ulcer Assessment & Plan: Pt presented on admission with full thickness sacral pressure injury.Base of wound is 20% necrotic , 80% slough. borders are macerated . Mild odor noted. (L)8.4cm x (W) 6.5cm. Periwound skin tone is darker without erythema,induration or elevation in skin temp. Both heels are non -blanchable and both are fluctuant when palpated. Tx.Plan: Clean wound with saline. Apply Therahoney. Aply Moisture Barrier paste periwound. Cover with Optifoam drsg. Change every 3 days and prn. Apply Cavilon Skin BArrier to both heels. Cover each heel with Optifoam drsg. Change every 7 days and prn. APM/DEIRDRE mattress overlay. Reposition at least every 2hours or as tolerated. Off-load heels with pillow. will follow with recs thank you Preet Hylton Nov 20, 2018 13:52
--- NOTE | 2018-11-20 14:31 | Infectious Diseases Prog Note ---
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 fungal uti vs colonization - vancomycin and meropenem, diflucan - picc line changed - check CT abdomen and pelvis for persistent fevers - monitor labs and chest x-ray - sacral wound management per surgery - please see orders 2. Trach-vent respiratory failure. 3. Dysphagia, G-tube. 4. Anemia. 5. Diabetes. 6. Hypertension. 7. Large tongue. 8. Anoxic brain injury. 9. Weakness. 10. Poorly responsive. 11. History of seizures. 12. History of colon adenocarcinoma. 13. Skin care protocol. 14. Allergy to crawfish. 15. Social history negative. 16. Family history noncontributory. 17. MAR was noted. 18. Case was discussed with RN. 19. Continue treatment per primary consultants. 20. Orders were ordered, entered, and noted. 21. Continue wound care protocol. 22. Continue blood sugar and blood pressure treatment per primary consultants for diabetes and hypertension. 23. vre colonization and isolation Subjective Constitutional: Reports: fever, other - + trach and vent HEENT: Reports: congestion Respiratory: Reports: shortness of breath Cardiovascular: Reports: other - no pressors Gastrointestinal/Abdominal: Denies: nausea, vomiting, diarrhea Genitourinary: Reports: other - + nava Neurologic: Reports: other - weakness, poorly responsive Psychiatric: Reports: other - NA Skin: Denies: rash Hematologic: Denies: bleeding Musculoskeletal: Reports: other - NA Allergies: Coded Allergies: Crayfish (Unverified Allergy, Unknown, 11/11/18) Uncoded Allergies: Crawfish (Allergy, Unknown, 11/09/18) Objective Vital Signs Last 24 Hour Vital Signs Date Time Temp Pulse Resp B/P (MAP) Pulse Ox O2 Delivery O2 Flow Rate FiO2 11/20/18 13:05 98 21 30 11/20/18 12:20 94 19 30 11/20/18 09:00 90 26 30 11/20/18 08:21 90 131/48 11/20/18 08:01 90 24 30 11/20/18 08:00 30 11/20/18 08:00 100.0 91 20 131/48 (75) 100 11/20/18 08:00 Mechanical Ventilator 11/20/18 07:38 86 11/20/18 05:18 89 20 30 11/20/18 05:09 125/65 11/20/18 05:08 94 125/65 11/20/18 04:00 98.1 93 20 125/65 (85) 100 11/20/18 04:00 30 11/20/18 04:00 Mechanical Ventilator 11/20/18 03:54 93 11/20/18 03:30 96 19 30 11/20/18 02:45 98.1 11/20/18 00:35 95 21 30 11/20/18 00:00 Mechanical Ventilator 11/20/18 00:00 99.9 95 20 132/71 (91) 100 11/19/18 23:30 95 11/19/18 23:00 95 24 30 11/19/18 22:15 139/66 11/19/18 22:14 97 139/66 11/19/18 21:04 102 21 30 11/19/18 20:00 98.2 97 20 119/64 (82) 100 11/19/18 20:00 30 11/19/18 20:00 Mechanical Ventilator 11/19/18 19:37 96 11/19/18 19:06 95 22 30 11/19/18 16:57 108 11/19/18 16:42 102 21 30 11/19/18 16:00 101.2 106 21 151/76 (101) 99 11/19/18 16:00 30 11/19/18 16:00 Mechanical Ventilator 11/19/18 15:30 108 24 30 11/19/18 14:28 114 156/71 11/19/18 14:28 156/71 Height (Feet): 5 Height (Inches): 8.00 Weight (Pounds): 205 General Appearance: other - on trach and vent HEENT: normocephalic, atraumatic, anicteric, no JVD, status post trach Respiratory/Chest: crackles/rales, rhonchi - bilaterally Cardiovascular: normal rate, regular rhythm, no gallop/murmur, no JVD Abdomen: normal bowel sounds, soft, non tender, no organomegaly, non distended Genitourinary: other - + nava - urine slt cloudy Extremities: no cyanosis Skin: no rash Neurologic/Psychiatric: other - weak, lethargic Lymphatic: no neck adenopathy Musculoskeletal: no effusion Objective 11/11/18 - chest x-ray - IMPRESSION: 1. Hypoventilatory lungs. Elevated right hemidiaphragm. Slightly improved vascular congestion. Similar bibasilar lung atelectasis and airspace disease. 2. Query right pleural effusion. 2-D echo - no vegetations mentioned, report noted sacral x-ray - no osteo mentioned, report noted 11/14/18 - Technique: One view of the chest Comparison: November 13, 2018 post PICC radiograph Findings: Bilateral interstitial and alveolar edema versus infiltrates appear slightly worse. There is increasing obscuration of left hemidiaphragm, may reflect increasing pleural fluid as well. The heart remains enlarged. Previously demonstrated left arm PICC has been removed. Stable right arm PICC. Impression: Slightly worsening bilateral interstitial and airspace infiltrates versus edema, over one day 11/16/18 - chest x-ray Procedure: XRAY Chest 1v Indication: Dyspnea Technique: One view of the chest Comparison: November 14, 2018 Findings: Bilateral interstitial edema persists. Tracheostomy, right arm PICC remain. The heart is enlarged. Impression: Bilateral interstitial edema, unchanged over 2 days Cardiomegaly Microbiology Date/Time Source Procedure Growth Status 11/16/18 12:35 Blood Blood Culture - Preliminary NO GROWTH AFTER 72 HOURS Resulted 11/16/18 12:40 Sputum Expectorated Gram Stain - Final Complete 11/16/18 12:40 Sputum Culture - Final Raoultella Planticola Providencia Stuartii Complete 11/16/18 12:30 Urine,Clean Catch Urine Culture - Final Ivelisse Albicans Complete 11/13/18 21:55 Catheter Site Catheter Tip Culture - Final Escherichia Coli Complete Laboratory Tests Test 11/20/18 04:15 White Blood Count 13.3 K/UL (4.8-10.8) H Red Blood Count 3.04 M/UL (4.20-5.40) L Hemoglobin 7.8 G/DL (12.0-16.0) L Hematocrit 23.8 % (37.0-47.0) L Mean Corpuscular Volume 78 FL (80-99) L Mean Corpuscular Hemoglobin 25.6 PG (27.0-31.0) L Mean Corpuscular Hemoglobin Concent 32.8 G/DL (32.0-36.0) Red Cell Distribution Width 22.8 % (11.6-14.8) H Platelet Count 495 K/UL (150-450) H Mean Platelet Volume 5.4 FL (6.5-10.1) L Neutrophils (%) (Auto) % (45.0-75.0) Lymphocytes (%) (Auto) % (20.0-45.0) Monocytes (%) (Auto) % (1.0-10.0) Eosinophils (%) (Auto) % (0.0-3.0) Basophils (%) (Auto) % (0.0-2.0) Sodium Level 139 MMOL/L (136-145) Potassium Level 3.6 MMOL/L (3.5-5.1) Chloride Level 101 MMOL/L (98-107) Carbon Dioxide Level 32 MMOL/L (21-32) Anion Gap 6 mmol/L (5-15) Blood Urea Nitrogen 14 mg/dL (7-18) Creatinine 0.4 MG/DL (0.55-1.30) L Estimat Glomerular Filtration Rate mL/min (>60) Glucose Level 118 MG/DL (74-106) H Calcium Level 7.9 MG/DL (8.5-10.1) L Total Bilirubin 0.2 MG/DL (0.2-1.0) Aspartate Amino Transf (AST/SGOT) 130 U/L (15-37) H Alanine Aminotransferase (ALT/SGPT) 124 U/L (12-78) H Alkaline Phosphatase 248 U/L (46-116) H Total Protein 5.4 G/DL (6.4-8.2) L Albumin 1.1 G/DL (3.4-5.0) L Globulin 4.3 g/dL Albumin/Globulin Ratio 0.3 (1.0-2.7) L Current Medications Medications (Trade) Dose Ordered Sig/Lupe Route PRN Reason Start Time Stop Time Status Last Admin Dose Admin Acetaminophen (Tylenol) 650 mg Q4H PRN GT Mild Pain/Temp > 100.5 11/09/18 05:00 12/09/18 04:59 11/20/18 02:15 Albuterol/ Ipratropium (Albuterol/ Ipratropium) 3 ml Q4H PRN HHN Shortness of Breath 11/17/18 12:30 9/4/19 12:29 Amlodipine Besylate (Norvasc) 10 mg DAILY GT 11/09/18 09:00 12/09/18 08:59 11/20/18 08:21 Bisacodyl (Dulcolax) 10 mg DAILY PRN RECTAL Constipation 11/09/18 05:00 12/09/18 04:59 Calcium Carbonate (Tums) 500 mg EVERY 8 HOURS GT 11/09/18 14:00 12/09/18 08:59 11/20/18 05:08 Chlorhexidine Gluconate (Corazon-Hex 2%) 1 applic DAILY@2000 TOPIC 11/12/18 20:00 12/12/18 19:59 11/19/18 20:49 Dextrose (Dextrose 50%) 25 ml Q30M PRN IV Hypoglycemia 11/09/18 04:45 12/09/18 04:44 Dextrose (Dextrose 50%) 50 ml Q30M PRN IV Hypoglycemia 11/09/18 04:45 12/09/18 04:44 11/09/18 09:09 Enoxaparin Sodium (Lovenox) 40 mg DAILY SUBQ 11/09/18 09:00 12/09/18 08:59 11/20/18 08:28 Famotidine (Pepcid) 20 mg EVERY 12 HOURS GT 11/09/18 21:00 12/09/18 08:59 11/20/18 08:21 Fluconazole/ Sodium Chloride 100 ml @ 100 mls/hr Q24H IV 11/18/18 16:00 11/25/18 15:59 11/19/18 16:19 Furosemide (Lasix) 40 mg EVERY 12 HOURS GT 11/09/18 09:00 12/09/18 08:59 11/20/18 08:26 Hydralazine HCl (Apresoline) 5 mg EVERY 8 HOURS GT 11/09/18 06:00 12/09/18 05:59 11/20/18 05:09 Insulin Aspart (NovoLOG) Q6HR SUBQ 11/09/18 06:00 12/09/18 05:59 11/20/18 05:22 Insulin Detemir (Levemir) 4 units EVERY 12 HOURS SUBQ 11/16/18 21:00 12/09/18 08:59 11/20/18 08:29 Labetalol HCl (Normodyne) 200 mg Q8HR GT 11/09/18 06:00 12/09/18 05:59 11/20/18 05:08 Levetiracetam (Keppra) 1,500 mg Q12HR GT 11/09/18 09:00 12/09/18 08:59 11/20/18 08:21 Magnesium Hydroxide (Mom) 30 ml DAILY PRN GT Constipation 11/09/18 05:00 12/09/18 04:59 Magnesium Oxide (Mag-Ox 400mg) 400 mg EVERY 8 HOURS GT 11/09/18 14:00 12/09/18 08:59 11/20/18 05:07 Meropenem 1 gm/ Sodium Chloride 100 ml @ 200 mls/hr Q8HR IVPB 11/20/18 14:00 11/25/18 23:59 Ondansetron HCl (Zofran) 4 mg Q6H PRN GT Nausea & Vomiting 11/09/18 05:00 12/09/18 04:59 Phenobarbital (PHENobarbital) 60 mg BID GT 11/09/18 09:00 12/09/18 08:59 11/20/18 08:20 Phenytoin (Dilantin) 100 mg Q8HR GT 11/09/18 06:00 12/09/18 05:59 11/20/18 05:09 Polyethylene Glycol (Miralax) 17 gm DAILYPRN PRN GT Constipation 11/14/18 10:30 12/12/18 10:29 Sennosides (Senokot) 8.6 mg EVERY 12 HOURS GT 11/09/18 21:00 12/09/18 08:59 11/20/18 08:21 Valproic Acid (Depakene) 500 mg EVERY 8 HOURS GT 11/09/18 06:00 12/09/18 05:59 11/20/18 05:07 Vancomycin HCl (Vanco rx to dose) 1 ea DAILY PRN MISC Per rx protocol 11/20/18 13:30 12/20/18 13:29 Vancomycin HCl 750 mg/Sodium Chloride 275 ml @ 183.333 mls/hr Q12HR@0800,2000 IVPB 11/20/18 20:00 11/25/18 19:59 Dasha Crews MD Nov 20, 2018 14:31
[2018-11-20 16:00] VITALS: BP 146/75
--- NOTE | 2018-11-20 17:00 | NUR ---
NURSE NOTES: Dtr. pt. called and updated her. Dtr of pt. appreciated the update and care for her mom.
--- NOTE | 2018-11-20 19:10 | NUR ---
HAND-OFF: Report given to Melanie DESHPANDE. Pt. remain stable.
--- NOTE | 2018-11-20 19:10 | NUR ---
NURSE NOTES: Received patient from CHARLEE Owens. Will continue plan of care.
--- NOTE | 2018-11-20 19:37 | Hematology/Onc Progress Note ---
Assessment/Plan Assessment/Plan 95k# Anemia of chronic disease due to underlying chronic medical issues, multifactorial --> Anemia workup has been reviewed and cw acd --> No evidence of hemolysis is noted, peripheral smear has been reviewed. --> Hgb goal >7. Transfuse prn. --> hgb trend 9.1-->8.9-->9-->8.9-->8.9->7.8 --> Epogen or iron indication prn --> Medications have been reviewed --> low threshold for gi evaluation in case has occult + --> bone marrow biopsy is not indicated given the other more likely causes # Leukocytosis iwth Sepsis secondary to UTI, GPC Staph Epidermidis bacteremia, Line associated infection - patient arrived to the Hospital with PICC --> as per ID consult appreciate Rec --> Continue antibiotics per ID: Continue Zosyn and vancomycin, anti fungal added--> kaykay/vanc, diflucan --> imaging noted # Thrombocytosis is likely due to underlying reactive process --> if doesn't improve send off jak2 --> plt count 641k # Transaminitis --> trend lft's --> GI consult, apprec recs --> ab us: reviewed # Elevated troponin secondary to sepsis versus ACS --> as per Cardiology consult, appreciate recs --> now better # Hypertension- improved --> sbp goal <150 # 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 GREATLY APPRECIATE CONSULTATION. Subjective HEENT: Denies: no symptoms, eye pain, blurred vision, tearing, double vision, ear pain, ear discharge, nose pain, nose congestion, throat pain, throat swelling, mouth pain, mouth swelling, other Cardiovascular: Denies: no symptoms, chest pain, edema, irregular heart rate, lightheadedness, palpitations, syncope, other Respiratory: Denies: no symptoms, cough, shortness of breath, SOB with excertion, SOB at rest, sputum, wheezing, other Genitourinary: Denies: no symptoms, burning, discharge, frequency, flank pain, hematuria, incontinence, pain, urgency, other Neurologic/Psychiatric: Denies: no symptoms, anxiety, depressed, emotional problems, headache, numbness, paresthesia, pre-existing deficit, seizure, tingling, tremors, weakness, other Endocrine: Denies: no symptoms, excessive sweating, flushing, intolerance to cold, intolerance to heat, increased hunger, increased thirst, increased urine, unexplained weight gain, unexplained weight loss, other Hematologic/Lymphatic: Denies: no symptoms, anemia, easy bleeding, easy bruising, adenopathy, other Allergies: Coded Allergies: Crayfish (Unverified Allergy, Unknown, 11/11/18) Uncoded Allergies: Crawfish (Allergy, Unknown, 11/09/18) Subjective 11/14: no events to report, labs relatively stable, hgb 8.9, on vent 11/15: no bleeding, no chills, labs reviewed, no major changes 11/16: cxr-->bilateral interstitial edema, vs stable, on abx, on vent, contact isolation 11/17: labs reviewed, on abx, vs stable, on vent, no distress 11/18: remains on gtube feeds, is on vent, on kaykay/vanc 11/20: no events, no bleeding, kaykay, vanc, diflucan, no f/c Objective Objective Current Medications Medications (Trade) Dose Ordered Sig/Lupe Route PRN Reason Start Time Stop Time Status Last Admin Dose Admin Acetaminophen (Tylenol) 650 mg Q4H PRN GT Mild Pain/Temp > 100.5 11/09/18 05:00 12/09/18 04:59 11/20/18 02:15 Albuterol/ Ipratropium (Albuterol/ Ipratropium) 3 ml Q4H PRN HHN Shortness of Breath 11/17/18 12:30 11/22/18 12:29 Amlodipine Besylate (Norvasc) 10 mg DAILY GT 11/09/18 09:00 12/09/18 08:59 11/20/18 08:21 Bisacodyl (Dulcolax) 10 mg DAILY PRN RECTAL Constipation 11/09/18 05:00 12/09/18 04:59 Calcium Carbonate (Tums) 500 mg EVERY 8 HOURS GT 11/09/18 14:00 12/09/18 08:59 11/20/18 14:31 Chlorhexidine Gluconate (Corazon-Hex 2%) 1 applic DAILY@1999 TOPIC 11/12/18 20:00 12/12/18 19:59 11/19/18 20:49 Dextrose (Dextrose 50%) 25 ml Q30M PRN IV Hypoglycemia 11/09/18 04:45 12/09/18 04:44 Dextrose (Dextrose 50%) 50 ml Q30M PRN IV Hypoglycemia 11/09/18 04:45 12/09/18 04:44 11/09/18 09:09 Enoxaparin Sodium (Lovenox) 40 mg DAILY SUBQ 11/09/18 09:00 12/09/18 08:59 11/20/18 08:28 Famotidine (Pepcid) 20 mg EVERY 12 HOURS GT 11/09/18 21:00 12/09/18 08:59 11/20/18 08:21 Fluconazole/ Sodium Chloride 100 ml @ 100 mls/hr Q24H IV 11/18/18 16:00 11/25/18 15:59 11/20/18 16:06 Furosemide (Lasix) 40 mg EVERY 12 HOURS GT 11/09/18 09:00 12/09/18 08:59 11/20/18 08:26 Hydralazine HCl (Apresoline) 5 mg EVERY 8 HOURS GT 11/09/18 06:00 12/09/18 05:59 11/20/18 14:31 Insulin Aspart (NovoLOG) Q6HR SUBQ 11/09/18 06:00 12/09/18 05:59 11/20/18 05:22 Insulin Detemir (Levemir) 4 units EVERY 12 HOURS SUBQ 11/16/18 21:00 12/09/18 08:59 11/20/18 08:29 Labetalol HCl (Normodyne) 200 mg Q8HR GT 11/09/18 06:00 12/09/18 05:59 11/20/18 14:31 Levetiracetam (Keppra) 1,500 mg Q12HR GT 11/09/18 09:00 12/09/18 08:59 11/20/18 08:21 Magnesium Hydroxide (Mom) 30 ml DAILY PRN GT Constipation 11/09/18 05:00 12/09/18 04:59 Magnesium Oxide (Mag-Ox 400mg) 400 mg EVERY 8 HOURS GT 11/09/18 14:00 12/09/18 08:59 11/20/18 14:31 Meropenem 1 gm/ Sodium Chloride 100 ml @ 200 mls/hr Q8HR IVPB 11/20/18 14:00 11/25/18 23:59 11/20/18 14:45 Ondansetron HCl (Zofran) 4 mg Q6H PRN GT Nausea & Vomiting 11/09/18 05:00 12/09/18 04:59 Phenobarbital (PHENobarbital) 60 mg BID GT 11/09/18 09:00 12/09/18 08:59 11/20/18 18:01 Phenytoin (Dilantin) 100 mg Q8HR GT 11/09/18 06:00 12/09/18 05:59 11/20/18 14:30 Polyethylene Glycol (Miralax) 17 gm DAILYPRN PRN GT Constipation 11/14/18 10:30 12/12/18 10:29 Sennosides (Senokot) 8.6 mg EVERY 12 HOURS GT 11/09/18 21:00 12/09/18 08:59 11/20/18 08:21 Valproic Acid (Depakene) 500 mg EVERY 8 HOURS GT 11/09/18 06:00 12/09/18 05:59 11/20/18 14:32 Vancomycin HCl (Vanco rx to dose) 1 ea DAILY PRN MISC Per rx protocol 11/20/18 13:30 12/20/18 13:29 Vancomycin HCl 750 mg/Sodium Chloride 275 ml @ 183.333 mls/hr Q12HR@0800,2000 IVPB 11/20/18 20:00 11/25/18 19:59 Last 24 Hour Vital Signs Date Time Temp Pulse Resp B/P (MAP) Pulse Ox O2 Delivery O2 Flow Rate FiO2 11/20/18 19:32 95 24 100 Mechanical Ventilator 30 11/20/18 19:32 95 24 30 11/20/18 17:21 96 22 30 11/20/18 16:00 97.8 98 19 146/75 (98) 100 11/20/18 16:00 Mechanical Ventilator 11/20/18 16:00 97 11/20/18 16:00 30 11/20/18 14:50 99 24 30 11/20/18 14:31 98 140/72 11/20/18 14:31 140/72 11/20/18 13:05 98 21 30 11/20/18 12:20 94 19 30 11/20/18 12:00 99.6 101 19 140/72 (94) 100 11/20/18 12:00 Mechanical Ventilator 11/20/18 12:00 30 11/20/18 11:50 95 11/20/18 09:00 90 26 30 11/20/18 08:21 90 131/48 11/20/18 08:01 90 24 30 11/20/18 08:00 30 11/20/18 08:00 100.0 91 20 131/48 (75) 100 11/20/18 08:00 Mechanical Ventilator 11/20/18 07:38 86 11/20/18 05:18 89 20 30 11/20/18 05:09 125/65 11/20/18 05:08 94 125/65 11/20/18 04:00 98.1 93 20 125/65 (85) 100 11/20/18 04:00 30 11/20/18 04:00 Mechanical Ventilator 11/20/18 03:54 93 11/20/18 03:30 96 19 30 11/20/18 02:45 98.1 11/20/18 00:35 95 21 30 11/20/18 00:00 Mechanical Ventilator 11/20/18 00:00 99.9 95 20 132/71 (91) 100 11/19/18 23:30 95 11/19/18 23:00 95 24 30 11/19/18 22:15 139/66 11/19/18 22:14 97 139/66 11/19/18 21:04 102 21 30 11/19/18 20:00 98.2 97 20 119/64 (82) 100 11/19/18 20:00 30 11/19/18 20:00 Mechanical Ventilator 11/19/18 19:37 96 11/19/18 19:06 95 22 30 11/19/18 16:57 108 11/19/18 16:42 102 21 30 11/19/18 16:00 101.2 106 21 151/76 (101) 99 11/19/18 16:00 30 11/19/18 16:00 Mechanical Ventilator 11/19/18 15:30 108 24 30 11/19/18 14:28 114 156/71 11/19/18 14:28 156/71 11/19/18 12:30 114 26 30 11/19/18 12:00 30 11/19/18 12:00 99.0 113 21 156/71 (99) 100 11/19/18 12:00 110 11/19/18 12:00 Mechanical Ventilator 11/19/18 10:30 104 22 30 11/19/18 08:50 97 11/19/18 08:42 103 25 30 11/19/18 08:16 99 156/99 11/19/18 08:00 101.5 99 20 156/99 (118) 100 11/19/18 08:00 Mechanical Ventilator 11/19/18 08:00 30 11/19/18 06:42 100 23 30 11/19/18 05:11 121/70 11/19/18 05:10 101 121/70 11/19/18 04:43 100 19 30 11/19/18 04:00 102 11/19/18 04:00 Mechanical Ventilator 11/19/18 04:00 30 11/19/18 04:00 101.2 103 20 150/86 (107) 100 11/19/18 02:52 101 23 30 11/19/18 01:31 98 25 30 11/19/18 00:00 97.2 94 20 124/67 (86) 100 11/19/18 00:00 Mechanical Ventilator 11/18/18 23:48 92 11/18/18 23:10 93 18 30 11/18/18 21:39 137/91 11/18/18 21:35 99 147/83 11/18/18 21:09 96 20 30 11/18/18 20:00 Mechanical Ventilator 11/18/18 20:00 30 11/18/18 20:00 97.9 91 20 138/76 (96) 100 Intake and Output 11/19/18 11/20/18 19:00 07:00 Intake Total 735 ml 1045.000 ml Output Total 1700 ml Balance 735 ml -655.000 ml Intake Free Water 150 ml 50 ml IV Total 475.000 ml Tube Feeding 585 ml 520 ml Output Urine Total 1700 ml # Bowel Movements 2 Labs Test 11/18/18 03:30 11/19/18 03:45 11/20/18 04:15 White Blood Count 13.9 K/UL (4.8-10.8) 11.6 K/UL (4.8-10.8) 13.3 K/UL (4.8-10.8) Red Blood Count 3.57 M/UL (4.20-5.40) 3.53 M/UL (4.20-5.40) 3.04 M/UL (4.20-5.40) Hemoglobin 8.9 G/DL (12.0-16.0) 8.9 G/DL (12.0-16.0) 7.8 G/DL (12.0-16.0) Hematocrit 28.2 % (37.0-47.0) 27.8 % (37.0-47.0) 23.8 % (37.0-47.0) Mean Corpuscular Volume 79 FL (80-99) 79 FL (80-99) 78 FL (80-99) Mean Corpuscular Hemoglobin 24.9 PG (27.0-31.0) 25.2 PG (27.0-31.0) 25.6 PG (27.0-31.0) Mean Corpuscular Hemoglobin Concent 31.4 G/DL (32.0-36.0) 32.0 G/DL (32.0-36.0) 32.8 G/DL (32.0-36.0) Red Cell Distribution Width 23.6 % (11.6-14.8) 22.6 % (11.6-14.8) 22.8 % (11.6-14.8) Platelet Count 641 K/UL (150-450) 640 K/UL (150-450) 495 K/UL (150-450) Mean Platelet Volume 5.4 FL (6.5-10.1) 5.5 FL (6.5-10.1) 5.4 FL (6.5-10.1) Neutrophils (%) (Auto) 79.2 % (45.0-75.0) 79.7 % (45.0-75.0) % (45.0-75.0) Lymphocytes (%) (Auto) 10.8 % (20.0-45.0) 8.4 % (20.0-45.0) % (20.0-45.0) Monocytes (%) (Auto) 5.8 % (1.0-10.0) 8.3 % (1.0-10.0) % (1.0-10.0) Eosinophils (%) (Auto) 3.6 % (0.0-3.0) 3.0 % (0.0-3.0) % (0.0-3.0) Basophils (%) (Auto) 0.5 % (0.0-2.0) 0.7 % (0.0-2.0) % (0.0-2.0) Sodium Level 139 MMOL/L (136-145) 138 MMOL/L (136-145) 139 MMOL/L (136-145) Potassium Level 4.2 MMOL/L (3.5-5.1) 4.4 MMOL/L (3.5-5.1) 3.6 MMOL/L (3.5-5.1) Chloride Level 103 MMOL/L (98-107) 101 MMOL/L (98-107) 101 MMOL/L (98-107) Carbon Dioxide Level 33 MMOL/L (21-32) 32 MMOL/L (21-32) 32 MMOL/L (21-32) Anion Gap 3 mmol/L (5-15) 5 mmol/L (5-15) 6 mmol/L (5-15) Blood Urea Nitrogen 13 mg/dL (7-18) 13 mg/dL (7-18) 14 mg/dL (7-18) Creatinine 0.4 MG/DL (0.55-1.30) 0.5 MG/DL (0.55-1.30) 0.4 MG/DL (0.55-1.30) Estimat Glomerular Filtration Rate mL/min (>60) mL/min (>60) mL/min (>60) Glucose Level 99 MG/DL (74-106) 114 MG/DL (74-106) 118 MG/DL (74-106) Calcium Level 8.2 MG/DL (8.5-10.1) 8.4 MG/DL (8.5-10.1) 7.9 MG/DL (8.5-10.1) Phosphorus Level 2.5 MG/DL (2.5-4.9) Magnesium Level 1.9 MG/DL (1.8-2.4) Total Bilirubin 0.2 MG/DL (0.2-1.0) 0.2 MG/DL (0.2-1.0) 0.2 MG/DL (0.2-1.0) Aspartate Amino Transf (AST/SGOT) 172 U/L (15-37) 160 U/L (15-37) 130 U/L (15-37) Alanine Aminotransferase (ALT/SGPT) 135 U/L (12-78) 145 U/L (12-78) 124 U/L (12-78) Alkaline Phosphatase 249 U/L (46-116) 272 U/L (46-116) 248 U/L (46-116) Total Protein 5.9 G/DL (6.4-8.2) 6.2 G/DL (6.4-8.2) 5.4 G/DL (6.4-8.2) Albumin 1.2 G/DL (3.4-5.0) 1.3 G/DL (3.4-5.0) 1.1 G/DL (3.4-5.0) Globulin 4.7 g/dL 4.9 g/dL 4.3 g/dL Albumin/Globulin Ratio 0.3 (1.0-2.7) 0.3 (1.0-2.7) 0.3 (1.0-2.7) Height (Feet): 5 Height (Inches): 8.00 Weight (Pounds): 205 Objective Physical Exam: Vitals: reviewed Gen: NAD HEENT: normocephalic, atraumatic Neck: non-tender, normal alignment ++ vent Respiratory: normal breath sounds bilaterally CV: normal peripheral pulses, rrr Abdomen: normal bowel sounds, soft, nontender +gtube Extremities: normal range of motion Yonathan Hernandez MD Nov 20, 2018 19:37
[2018-11-20 20:00] VITALS: BP 140/74
[2018-11-20] MEDS: Dyna-Hex 2% Top Sol 2oz TOPIC SCH (20:25)
--- NOTE | 2018-11-20 21:02 | Hematology/Onc Progress Note ---
Assessment/Plan Assessment/Plan LATE ENTRY NOTE FOR 11/19/2018 ASSESSMENT AND REC'S # Anemia of chronic disease due to underlying chronic medical issues, multifactorial --> Anemia workup has been reviewed and cw acd --> No evidence of hemolysis is noted, peripheral smear has been reviewed. --> Hgb goal >7. Transfuse prn. --> hgb trend 9.1-->8.9-->9-->8.9-->8.9->7.8 --> Epogen or iron indication prn --> Medications have been reviewed --> low threshold for gi evaluation in case has occult + --> bone marrow biopsy is not indicated given the other more likely causes # Leukocytosis iwth Sepsis secondary to UTI, GPC Staph Epidermidis bacteremia, Line associated infection - patient arrived to the Hospital with PICC --> as per ID consult appreciate Rec --> Continue antibiotics per ID: Continue Zosyn and vancomycin, anti fungal added--> kaykay/vanc, diflucan --> imaging noted # Thrombocytosis is likely due to underlying reactive process --> if doesn't improve send off jak2 --> plt count 641k # Transaminitis --> trend lft's --> GI consult, apprec recs --> ab us: reviewed # Elevated troponin secondary to sepsis versus ACS --> as per Cardiology consult, appreciate recs --> now better # Hypertension- improved --> sbp goal <150 # 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 Tongue and lips swollen The timing of this note does not necessarily reflect the time of the patient was seen. GREATLY APPRECIATE CONSULTATION. Subjective Allergies: Coded Allergies: Crayfish (Unverified Allergy, Unknown, 11/11/18) Uncoded Allergies: Crawfish (Allergy, Unknown, 11/09/18) Subjective Subjective 11/14: no events to report, labs relatively stable, hgb 8.9, on vent 11/15: no bleeding, no chills, labs reviewed, no major changes 11/16: cxr-->bilateral interstitial edema, vs stable, on abx, on vent, contact isolation 11/17: labs reviewed, on abx, vs stable, on vent, no distress 11/18: remains on gtube feeds, is on vent, on kaykay/vanc 11/19: no bleeding, lips are swollen. Objective Objective Current Medications Medications (Trade) Dose Ordered Sig/Lupe Route PRN Reason Start Time Stop Time Status Last Admin Dose Admin Acetaminophen (Tylenol) 650 mg Q4H PRN GT Mild Pain/Temp > 100.5 11/09/18 05:00 12/09/18 04:59 11/20/18 20:25 Albuterol/ Ipratropium (Albuterol/ Ipratropium) 3 ml Q4H PRN HHN Shortness of Breath 11/17/18 12:30 11/22/18 12:29 Amlodipine Besylate (Norvasc) 10 mg DAILY GT 11/09/18 09:00 12/09/18 08:59 11/20/18 08:21 Bisacodyl (Dulcolax) 10 mg DAILY PRN RECTAL Constipation 11/09/18 05:00 12/09/18 04:59 Calcium Carbonate (Tums) 500 mg EVERY 8 HOURS GT 11/09/18 14:00 12/09/18 08:59 11/20/18 14:31 Chlorhexidine Gluconate (Corazon-Hex 2%) 1 applic DAILY@2000 TOPIC 11/12/18 20:00 12/12/18 19:59 11/20/18 20:25 Dextrose (Dextrose 50%) 25 ml Q30M PRN IV Hypoglycemia 11/09/18 04:45 12/09/18 04:44 Dextrose (Dextrose 50%) 50 ml Q30M PRN IV Hypoglycemia 11/09/18 04:45 12/09/18 04:44 11/09/18 09:09 Enoxaparin Sodium (Lovenox) 40 mg DAILY SUBQ 11/09/18 09:00 12/09/18 08:59 11/20/18 08:28 Famotidine (Pepcid) 20 mg EVERY 12 HOURS GT 11/09/18 21:00 12/09/18 08:59 11/20/18 20:26 Fluconazole/ Sodium Chloride 100 ml @ 100 mls/hr Q24H IV 11/18/18 16:00 11/25/18 15:59 11/20/18 16:06 Furosemide (Lasix) 40 mg EVERY 12 HOURS GT 11/09/18 09:00 12/09/18 08:59 11/20/18 20:26 Hydralazine HCl (Apresoline) 5 mg EVERY 8 HOURS GT 11/09/18 06:00 12/09/18 05:59 11/20/18 14:31 Insulin Aspart (NovoLOG) Q6HR SUBQ 11/09/18 06:00 12/09/18 05:59 11/20/18 05:22 Insulin Detemir (Levemir) 4 units EVERY 12 HOURS SUBQ 11/16/18 21:00 12/09/18 08:59 11/20/18 20:27 Labetalol HCl (Normodyne) 200 mg Q8HR GT 11/09/18 06:00 12/09/18 05:59 11/20/18 14:31 Levetiracetam (Keppra) 1,500 mg Q12HR GT 11/09/18 09:00 12/09/18 08:59 11/20/18 20:26 Magnesium Hydroxide (Mom) 30 ml DAILY PRN GT Constipation 11/09/18 05:00 12/09/18 04:59 Magnesium Oxide (Mag-Ox 400mg) 400 mg EVERY 8 HOURS GT 11/09/18 14:00 12/09/18 08:59 11/20/18 14:31 Meropenem 1 gm/ Sodium Chloride 100 ml @ 200 mls/hr Q8HR IVPB 11/20/18 14:00 11/25/18 23:59 11/20/18 14:45 Ondansetron HCl (Zofran) 4 mg Q6H PRN GT Nausea & Vomiting 11/09/18 05:00 12/09/18 04:59 Phenobarbital (PHENobarbital) 60 mg BID GT 11/09/18 09:00 12/09/18 08:59 11/20/18 18:01 Phenytoin (Dilantin) 100 mg Q8HR GT 11/09/18 06:00 12/09/18 05:59 11/20/18 14:30 Polyethylene Glycol (Miralax) 17 gm DAILYPRN PRN GT Constipation 11/14/18 10:30 12/12/18 10:29 Sennosides (Senokot) 8.6 mg EVERY 12 HOURS GT 11/09/18 21:00 12/09/18 08:59 11/20/18 20:26 Valproic Acid (Depakene) 500 mg EVERY 8 HOURS GT 11/09/18 06:00 12/09/18 05:59 11/20/18 14:32 Vancomycin HCl (Vanco rx to dose) 1 ea DAILY PRN MISC Per rx protocol 11/20/18 13:30 12/20/18 13:29 Vancomycin HCl 750 mg/Sodium Chloride 275 ml @ 183.333 mls/hr Q12HR@0800,2000 IVPB 11/20/18 20:00 11/25/18 19:59 11/20/18 20:28 Last 24 Hour Vital Signs Date Time Temp Pulse Resp B/P (MAP) Pulse Ox O2 Delivery O2 Flow Rate FiO2 11/20/18 20:00 30 11/20/18 20:00 Mechanical Ventilator 11/20/18 19:32 95 24 100 Mechanical Ventilator 30 11/20/18 19:32 95 24 30 11/20/18 17:21 96 22 30 11/20/18 16:00 97.8 98 19 146/75 (98) 100 11/20/18 16:00 Mechanical Ventilator 11/20/18 16:00 97 11/20/18 16:00 30 11/20/18 14:50 99 24 30 11/20/18 14:31 98 140/72 11/20/18 14:31 140/72 11/20/18 13:05 98 21 30 11/20/18 12:20 94 19 30 11/20/18 12:00 99.6 101 19 140/72 (94) 100 11/20/18 12:00 Mechanical Ventilator 11/20/18 12:00 30 11/20/18 11:50 95 11/20/18 09:00 90 26 30 11/20/18 08:21 90 131/48 11/20/18 08:01 90 24 30 11/20/18 08:00 30 11/20/18 08:00 100.0 91 20 131/48 (75) 100 11/20/18 08:00 Mechanical Ventilator 11/20/18 07:38 86 11/20/18 05:18 89 20 30 11/20/18 05:09 125/65 11/20/18 05:08 94 125/65 11/20/18 04:00 98.1 93 20 125/65 (85) 100 11/20/18 04:00 30 11/20/18 04:00 Mechanical Ventilator 11/20/18 03:54 93 11/20/18 03:30 96 19 30 11/20/18 02:45 98.1 11/20/18 00:35 95 21 30 11/20/18 00:00 Mechanical Ventilator 11/20/18 00:00 99.9 95 20 132/71 (91) 100 11/19/18 23:30 95 11/19/18 23:00 95 24 30 11/19/18 22:15 139/66 11/19/18 22:14 97 139/66 11/19/18 21:04 102 21 30 11/19/18 20:00 98.2 97 20 119/64 (82) 100 11/19/18 20:00 30 11/19/18 20:00 Mechanical Ventilator 11/19/18 19:37 96 11/19/18 19:06 95 22 30 11/19/18 16:57 108 11/19/18 16:42 102 21 30 11/19/18 16:00 101.2 106 21 151/76 (101) 99 11/19/18 16:00 30 11/19/18 16:00 Mechanical Ventilator 11/19/18 15:30 108 24 30 11/19/18 14:28 114 156/71 11/19/18 14:28 156/71 11/19/18 12:30 114 26 30 11/19/18 12:00 30 11/19/18 12:00 99.0 113 21 156/71 (99) 100 11/19/18 12:00 110 11/19/18 12:00 Mechanical Ventilator 11/19/18 10:30 104 22 30 11/19/18 08:50 97 11/19/18 08:42 103 25 30 11/19/18 08:16 99 156/99 11/19/18 08:00 101.5 99 20 156/99 (118) 100 11/19/18 08:00 Mechanical Ventilator 11/19/18 08:00 30 11/19/18 06:42 100 23 30 11/19/18 05:11 121/70 11/19/18 05:10 101 121/70 11/19/18 04:43 100 19 30 11/19/18 04:00 102 11/19/18 04:00 Mechanical Ventilator 11/19/18 04:00 30 11/19/18 04:00 101.2 103 20 150/86 (107) 100 11/19/18 02:52 101 23 30 11/19/18 01:31 98 25 30 11/19/18 00:00 97.2 94 20 124/67 (86) 100 11/19/18 00:00 Mechanical Ventilator 11/18/18 23:48 92 11/18/18 23:10 93 18 30 11/18/18 21:39 137/91 11/18/18 21:35 99 147/83 11/18/18 21:09 96 20 30 Intake and Output 11/19/18 11/20/18 19:00 07:00 Intake Total 735 ml 1045.000 ml Output Total 1700 ml Balance 735 ml -655.000 ml Intake Free Water 150 ml 50 ml IV Total 475.000 ml Tube Feeding 585 ml 520 ml Output Urine Total 1700 ml # Bowel Movements 2 Labs Test 11/18/18 03:30 11/19/18 03:45 11/20/18 04:15 White Blood Count 13.9 K/UL (4.8-10.8) 11.6 K/UL (4.8-10.8) 13.3 K/UL (4.8-10.8) Red Blood Count 3.57 M/UL (4.20-5.40) 3.53 M/UL (4.20-5.40) 3.04 M/UL (4.20-5.40) Hemoglobin 8.9 G/DL (12.0-16.0) 8.9 G/DL (12.0-16.0) 7.8 G/DL (12.0-16.0) Hematocrit 28.2 % (37.0-47.0) 27.8 % (37.0-47.0) 23.8 % (37.0-47.0) Mean Corpuscular Volume 79 FL (80-99) 79 FL (80-99) 78 FL (80-99) Mean Corpuscular Hemoglobin 24.9 PG (27.0-31.0) 25.2 PG (27.0-31.0) 25.6 PG (27.0-31.0) Mean Corpuscular Hemoglobin Concent 31.4 G/DL (32.0-36.0) 32.0 G/DL (32.0-36.0) 32.8 G/DL (32.0-36.0) Red Cell Distribution Width 23.6 % (11.6-14.8) 22.6 % (11.6-14.8) 22.8 % (11.6-14.8) Platelet Count 641 K/UL (150-450) 640 K/UL (150-450) 495 K/UL (150-450) Mean Platelet Volume 5.4 FL (6.5-10.1) 5.5 FL (6.5-10.1) 5.4 FL (6.5-10.1) Neutrophils (%) (Auto) 79.2 % (45.0-75.0) 79.7 % (45.0-75.0) % (45.0-75.0) Lymphocytes (%) (Auto) 10.8 % (20.0-45.0) 8.4 % (20.0-45.0) % (20.0-45.0) Monocytes (%) (Auto) 5.8 % (1.0-10.0) 8.3 % (1.0-10.0) % (1.0-10.0) Eosinophils (%) (Auto) 3.6 % (0.0-3.0) 3.0 % (0.0-3.0) % (0.0-3.0) Basophils (%) (Auto) 0.5 % (0.0-2.0) 0.7 % (0.0-2.0) % (0.0-2.0) Sodium Level 139 MMOL/L (136-145) 138 MMOL/L (136-145) 139 MMOL/L (136-145) Potassium Level 4.2 MMOL/L (3.5-5.1) 4.4 MMOL/L (3.5-5.1) 3.6 MMOL/L (3.5-5.1) Chloride Level 103 MMOL/L (98-107) 101 MMOL/L (98-107) 101 MMOL/L (98-107) Carbon Dioxide Level 33 MMOL/L (21-32) 32 MMOL/L (21-32) 32 MMOL/L (21-32) Anion Gap 3 mmol/L (5-15) 5 mmol/L (5-15) 6 mmol/L (5-15) Blood Urea Nitrogen 13 mg/dL (7-18) 13 mg/dL (7-18) 14 mg/dL (7-18) Creatinine 0.4 MG/DL (0.55-1.30) 0.5 MG/DL (0.55-1.30) 0.4 MG/DL (0.55-1.30) Estimat Glomerular Filtration Rate mL/min (>60) mL/min (>60) mL/min (>60) Glucose Level 99 MG/DL (74-106) 114 MG/DL (74-106) 118 MG/DL (74-106) Calcium Level 8.2 MG/DL (8.5-10.1) 8.4 MG/DL (8.5-10.1) 7.9 MG/DL (8.5-10.1) Phosphorus Level 2.5 MG/DL (2.5-4.9) Magnesium Level 1.9 MG/DL (1.8-2.4) Total Bilirubin 0.2 MG/DL (0.2-1.0) 0.2 MG/DL (0.2-1.0) 0.2 MG/DL (0.2-1.0) Aspartate Amino Transf (AST/SGOT) 172 U/L (15-37) 160 U/L (15-37) 130 U/L (15-37) Alanine Aminotransferase (ALT/SGPT) 135 U/L (12-78) 145 U/L (12-78) 124 U/L (12-78) Alkaline Phosphatase 249 U/L (46-116) 272 U/L (46-116) 248 U/L (46-116) Total Protein 5.9 G/DL (6.4-8.2) 6.2 G/DL (6.4-8.2) 5.4 G/DL (6.4-8.2) Albumin 1.2 G/DL (3.4-5.0) 1.3 G/DL (3.4-5.0) 1.1 G/DL (3.4-5.0) Globulin 4.7 g/dL 4.9 g/dL 4.3 g/dL Albumin/Globulin Ratio 0.3 (1.0-2.7) 0.3 (1.0-2.7) 0.3 (1.0-2.7) Height (Feet): 5 Height (Inches): 8.00 Weight (Pounds): 205 Objective Physical Exam: Vitals: reviewed Gen: NAD HEENT: normocephalic, atraumatic, lips and tongue swelling severe Neck: non-tender, normal alignment ++ vent Respiratory: normal breath sounds bilaterally CV: normal peripheral pulses, rrr Abdomen: normal bowel sounds, soft, nontender +gtube Extremities: normal range of motion Geeta Garcia NP Nov 20, 2018 21:02
[2018-11-21] VITALS: BP 123/70
[2018-11-21 04:00] VITALS: BP 150/82
[2018-11-21 05:03] LABS: BASOPHILS % (AUTO) 0.5 % (0.0-2.0); EOSINOPHILS % (AUTO) 0.7 % (0.0-3.0); HEMATOCRIT 26.5 % (37.0-47.0); HEMOGLOBIN 8.7 G/DL (12.0-16.0); LYMPHOCYTES % (AUTO) 10.1 % (20.0-45.0); MEAN CORPUSCULAR VOLUME 78 FL (80-99); MONOCYTES % (AUTO) 4.5 % (1.0-10.0); NEUTROPHILS % (AUTO) 84.2 % (45.0-75.0); PLATELET COUNT 484 K/UL (150-450); RED BLOOD COUNT 3.38 M/UL (4.20-5.40); WHITE BLOOD COUNT 12.5 K/UL (4.8-10.8)
--- NOTE | 2018-11-21 05:19 | NUR ---
NURSE NOTES: Informed Palak from [facility] that the Meropenem 1g vial label that the pharmacy brought up with the medication is not able to scan (medication administered @ 2200). The medication dosage and NS bag is correct but the RX number on the label is different than the RX number that is active on the eMar. New label re-printed.
[2018-11-21] MEDS: Tums 500mg GT SCH ×3 (05:42→22:40)
[2018-11-21] MEDS: HydrALAZINE 10mg Tab GT SCH ×3 (05:42→22:40)
[2018-11-21] MEDS: Magnesium Oxide 400mg tab GT SCH ×3 (05:42→22:40)
[2018-11-21] MEDS: Labetalol 200mg tab GT SCH ×3 (05:42→22:40)
[2018-11-21] MEDS: Phenytoin Susp 100mg/4ml GT SCH ×3 (05:43→22:39)
[2018-11-21] MEDS: Valproic Acid 250mg/5ml Liquid GT SCH ×3 (05:43→22:39)
[2018-11-21 05:54] LABS: ALANINE AMINOTRANSFERASE 117 U/L (12-78); ALBUMIN 1.2 G/DL (3.4-5.0); ALBUMIN/GLOBULIN RATIO 0.2 (1.0-2.7); ALKALINE PHOSPHATASE 240 U/L (46-116); ANION GAP 7 mmol/L (5-15); ASPARTATE AMINO TRANSFERASE 137 U/L (15-37); BILIRUBIN,TOTAL 0.2 MG/DL (0.2-1.0); BLOOD UREA NITROGEN 13 mg/dL (7-18); CALCIUM 8.2 MG/DL (8.5-10.1); CARBON DIOXIDE 30 MMOL/L (21-32); CHLORIDE 101 MMOL/L (98-107); CREATININE 0.3 MG/DL (0.55-1.30); PHOSPHORUS 2.2 MG/DL (2.5-4.9); POTASSIUM 3.7 MMOL/L (3.5-5.1); SODIUM 138 MMOL/L (136-145)
[2018-11-21] MEDS: NovoLOG Insulin Flexpen SUBQ SCH ×3 (06:00→18:00)
--- NOTE | 2018-11-21 07:00 | NUR ---
RESPIRATORY NOTES: Received Patient on Vent settings ACVC 14, VT 375, Fio2 30%, PEEP +5. Patient currently trached with a Shiley 8 tracheostomy tube, secured by trache ties. Patient obtundent. Breath sounds are bilateral rhonchi throughout both lung cardona. Suctioned moderate amount of mccauley secretions Q2 and PRN. Vent plugged into red outlet. Alarms are on and audible. Will continue to monitor throughout the day.
--- NOTE | 2018-11-21 07:05 | NUR ---
HAND-OFF: Report given to CHARLEE Owens.
--- NOTE | 2018-11-21 07:10 | NUR ---
NURSE NOTES: Received bedside report from Melanie DESHPANDE. Pt. in bed, obtunded. No sign of distress. On mech. vent. with setting of AC14/VT375/FiO2 of 30%/P5. No grimacing noted. Padded side rails in placed. HOB elevated at all times. On GTF of Glucerna 1.2 @ 65cc/hr. Tolerating well. PICC line at right upper arm with 2 lumen patent/intact. F/C in placed patent/intact draining yellow colored urine. Bed in low position, locked. Call light within reach. Will cont. to monitor.
[2018-11-21 08:00] VITALS: BP 130/70
[2018-11-21] MEDS: Vancomycin 750 MG in NS 275 ML IVPB SCH (08:26)
[2018-11-21] MEDS: Acetaminophen 650mg/20.3ml GT PRN ×2 (08:26→17:24)
[2018-11-21] MEDS: levETIRAcetam 500mg/5ml Liquid GT SCH ×2 (08:27→21:31)
[2018-11-21] MEDS: PHENobarbital Elixir 30mg/7.5ml GT SCH ×2 (08:28→17:25)
[2018-11-21] MEDS: Levemir Flexpen SUBQ SCH ×2 (08:31→21:46)
[2018-11-21] MEDS: Sennosides 8.6mg tab GT SCH ×2 (08:32→21:29)
[2018-11-21] MEDS: Furosemide 40mg tab GT SCH ×2 (08:44→21:30)
[2018-11-21] MEDS: Enoxaparin 40mg Inj SUBQ SCH (08:45)
--- NOTE | 2018-11-21 09:30 | NUR ---
NURSE NOTES: Called Beharley (dtr) of the pt. for contrast consent. Awaiting for response.
--- NOTE | 2018-11-21 09:38 | General Progress Note ---
Assessment/Plan Problem List: (1) MRSA (methicillin resistant staphylococcus aureus) pneumonia ICD Codes: J15.212 - Pneumonia due to Methicillin resistant Staphylococcus aureus SNOMED: 344130154552728 (2) Fever ICD Codes: R50.9 - Fever, unspecified SNOMED: 629629573 (3) UTI (urinary tract infection) ICD Codes: N39.0 - Urinary tract infection, site not specified SNOMED: 91788695 (4) Tracheostomy dependence ICD Codes: Z93.0 - Tracheostomy status SNOMED: 588789677 (5) Ventilator dependence ICD Codes: Z99.11 - Dependence on respirator [ventilator] status SNOMED: 969932798 (6) Protein calorie malnutrition ICD Codes: E46 - Unspecified protein-calorie malnutrition SNOMED: 194305036 (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 SNOMED: 92485134 (8) Drug rash ICD Codes: L27.0 - Generalized skin eruption due to drugs and medicaments taken internally SNOMED: 88969099 (9) Gram-negative pneumonia ICD Codes: J15.6 - Pneumonia due to other Gram-negative bacteria SNOMED: 086527520 (10) Line sepsis ICD Codes: T85.79XA - Infection and inflammatory reaction due to other internal prosthetic devices, implants and grafts, initial encounter; A41.9 - Sepsis, unspecified organism SNOMED: 25840761, 736762925 (11) Bacteremia ICD Codes: R78.81 - Bacteremia SNOMED: 2394332 Status: unchanged, fever Assessment/Plan: 78-year-old female who is trach dependent who was brought in by custodial for sepsis and found to have UTI and bacteremia. 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 fungal uti vs colonization ID consult appreciate Rec Vancomycin and Meropenem started 11/16 ( Zosyn stopped) , fungal coverage with Diflucan added 11/18. Repeat sputum cultures with RAULTELLA PLANTICOA and PROVIDENCIA STUARTI resistant to most antibiotics Today developed morbilliform rash, has persistent fevers. Discussed with Dr. Goodwin and will DC meropenem, vancomycin and Diflucan. Start Polymyxin and flagyl. Discussed with daughter at bedside. follow up CT abdomen pelvis. Removed PICC and place new line 11/13/18 Echo to eval for vegetation negative Chest x-ray reviewed: Atelectasis persistent fevers. CT abdomen pelvis per ID # Transaminitis - trend lft's - GI consult, appreciate recs - ab us: reviewed - f/u hep panel #Elevated troponin secondary to sepsis versus ACS Cardiology consult, appreciate recs Medications per cardiology #Hypertension- improved Continue current medications, hydralazine as needed hypertension #Vent dependent Pulmonary consult, appreciate recs Vent management per pulmonary #Hypokalemia Replace, continue to monitor # Chronic tongue wound Supportive care On examination the patient has a sharp lower incisor present that is likely the culprit for the tongue laceration when she was intubated in the prior hospitalization at [facility] OMFS consultation Dr. Benavides completed ( no note left ) and I spoke with him over the phone after the visit. He does not recommend any surgery. ONLY bite block MOLT if available to decompress the tongue and get the remainder teeth out of the tongue way. Keep moisture in the lips and tongue. # History of mood disorder Seen by psychiatry and on Depakote. Level was checked # Seizure history - Discussed with Dr. Eric who knew the patient from [facility] and confirmed that she did have seizure activity and was on multiple AED regimen. - Will continue Depakote ( 28 level ) and (Phenytoin 4.3 ) - no active seizure activity at this time. Keep current dose. - Both Dr. Eric and Mariana not available to come to [facility] for consult and not acute need at this time. #Diabetes Mellitus - glucose noted in the 90-110's - Decreased Levemir to 4 units q 12 hours # Disposition - SNF when cleared by ID. Still febrile. Full code timing of this note may not reflect time of encounter. I spent 40 minutes on this encounter. Great than 50 percent spent of care planning. Subjective Date patient seen: Nov 21, 2018 ROS Limited/Unobtainable: Yes Allergies: Coded Allergies: Crayfish (Unverified Allergy, Unknown, 11/11/18) Uncoded Allergies: Crawfish (Allergy, Unknown, 11/09/18) Subjective obtunded on vent, fever noted tmax 101.5 Objective Last 24 Hour Vital Signs Date Time Temp Pulse Resp B/P (MAP) Pulse Ox O2 Delivery O2 Flow Rate FiO2 9/3/19 09:09 96 20 30 11/21/18 08:28 95 130/70 11/21/18 08:00 102.4 95 20 130/70 (90) 100 11/21/18 07:24 94 21 30 11/21/18 05:42 103 136/70 11/21/18 05:42 136/70 11/21/18 05:30 100 23 30 11/21/18 04:00 Mechanical Ventilator 11/21/18 04:00 99.5 106 20 150/82 (104) 100 11/21/18 04:00 30 11/21/18 03:26 103 11/21/18 03:23 103 22 30 11/21/18 00:42 96 24 30 11/21/18 00:00 98.8 85 20 123/70 (87) 98 11/21/18 00:00 Mechanical Ventilator 11/20/18 23:34 83 21 30 11/20/18 23:28 84 11/20/18 21:43 140/74 11/20/18 21:42 91 140/74 11/20/18 21:33 91 20 30 11/20/18 20:55 99.8 11/20/18 20:00 101.6 96 20 140/74 (96) 100 11/20/18 20:00 30 11/20/18 20:00 Mechanical Ventilator 11/20/18 19:32 95 24 100 Mechanical Ventilator 30 11/20/18 19:32 95 24 30 11/20/18 19:22 98 11/20/18 17:21 96 22 30 11/20/18 16:00 97.8 98 19 146/75 (98) 100 11/20/18 16:00 Mechanical Ventilator 11/20/18 16:00 97 11/20/18 16:00 30 11/20/18 14:50 99 24 30 11/20/18 14:31 98 140/72 11/20/18 14:31 140/72 11/20/18 13:05 98 21 30 11/20/18 12:20 94 19 30 11/20/18 12:00 99.6 101 19 140/72 (94) 100 11/20/18 12:00 Mechanical Ventilator 11/20/18 12:00 30 11/20/18 11:50 95 Intake and Output 11/20/18 11/21/18 19:00 07:00 Intake Total 850 ml 1095.0 ml Output Total 900 ml 950 ml Balance -50 ml 145.0 ml Intake Free Water 200 ml 100 ml IV Total 475.0 ml Tube Feeding 650 ml 520 ml Output Urine Total 900 ml 950 ml # Bowel Movements 2 Laboratory Tests 11/21/18 04:00: White Blood Count 12.5H, Red Blood Count 3.38L, Hemoglobin 8.7L, Hematocrit 26.5L, Mean Corpuscular Volume 78L, Mean Corpuscular Hemoglobin 25.7L, Mean Corpuscular Hemoglobin Concent 32.8, Red Cell Distribution Width 23.0H, Platelet Count 484H, Mean Platelet Volume 5.5L, Neutrophils (%) (Auto) 84.2H, Lymphocytes (%) (Auto) 10.1L, Monocytes (%) (Auto) 4.5, Eosinophils (%) (Auto) 0.7, Basophils (%) (Auto) 0.5, Sodium Level 138, Potassium Level 3.7, Chloride Level 101, Carbon Dioxide Level 30, Anion Gap 7, Blood Urea Nitrogen 13, Creatinine 0.3L, Estimat Glomerular Filtration Rate , Glucose Level 90, Calcium Level 8.2L, Phosphorus Level 2.2L, Magnesium Level 2.0, Total Bilirubin 0.2, Aspartate Amino Transf (AST/SGOT) 137H, Alanine Aminotransferase (ALT/SGPT) 117H , Alkaline Phosphatase 240H, Total Protein 6.1L, Albumin 1.2L, Globulin 4.9, Albumin/Globulin Ratio 0.2L Height (Feet): 5 Height (Inches): 8.00 Weight (Pounds): 205 Objective General Appearance: no apparent distress, other - unresponsive on vent EENT: PERRL/EOMI, other - enlarged tongue protruding, lower lip severely swollen Neck: supple Cardiovascular: normal rate, regular rhythm Respiratory/Chest: lungs clear Abdomen: soft Neurologic: unresponsive Skin: Morbilliform rash to bilateral upper extremities and thighs Neftaly Walters M.D. Nov 21, 2018 09:38
--- NOTE | 2018-11-21 10:46 | NUR ---
RD ASSESSMENT & RECOMMENDATIONS SEE CARE ACTIVITY FOR COMPLETE ASSESSMENT DAILY ESTIMATED NEEDS: Needs based on Critical care, sepsis, wound 60kg adj 22-30 kcals/kg 3256-8654 total kcals 1.25-2 g protein/kg 75-120 g total protein Fluid per MD, on lasix mL/kg total fluid mLs NUTRITION DIAGNOSIS: * Swallowing difficulty r/t resp status as evidenced by pt is vent dep via trach and PEG dep. * Increased kcal and pro needs r/t wound healing and sepsis as evidenced by pt w/ sacral and R heel wounds, febrile (Tmax 102.4). CURRENT TF: Glucerna 1.2 @65 x18 hrs + Prosource x1 ENTERAL NUTRITION RECOMMENDATIONS: Glucerna 1.2 @ 65ml/hr x18 hrs + Prosource x1 daily to provide 1170ml, 1404 kcal, 70g pro + 11g pro, 942 free H2O - Maintain current TF at goal as tolerated - TF TO BE HELD FOR ONE HR BEFORE AND AFTER DILANTIN MEDS - FLUSH PER MD, HOB OVER 30 DEGREES ADDITIONAL RECOMMENDATIONS: 1) CALIBRATED BED SCALE W/ ADDED P200 MATTRESS + PUMP 2) ON LASIX, MONITOR LYTES AND HYDRATION STATUS DAILY 3) TF TO RUN A MAX OF 18 HRS/DAY W/ DILANTIN TID PER PHARMACY 4) REC TF CHANGE TO CARB CONTROL FORMULA -> h/o DM, on short + long acting insulin 5) WOUND CARE: ADD CHAYITO BID + VIT C 250MG DAILY
[2018-11-21 12:00] VITALS: BP 100/52
--- NOTE | 2018-11-21 12:00 | NUR ---
NURSE NOTES: Dtr. De Leon visited pt (her mother). She told RN she received my message and she will think about the CT abdomen test.
--- NOTE | 2018-11-21 12:26 | Cardiology Progress Note ---
Assessment/Plan Status: stable Assessment/Plan Assessment: Elevated troponin Hypertension Hepatitis HIV UTI Fever PLAN: -Empiric ABX, follow culture -Trend troponin, likely demand ischemia -Replete electrolytes -Manage blood pressures -Trach care -Poor prognosis -Continue antibiotics Subjective Cardiovascular: Reports: no symptoms Respiratory: Reports: no symptoms Gastrointestinal/Abdominal: Reports: no symptoms Genitourinary: Reports: no symptoms Subjective NO acute events, nursing notes reviewed, remains intubated in ICU, tachycardic, low grade fevers Objective Last 24 Hour Vital Signs Date Time Temp Pulse Resp B/P (MAP) Pulse Ox O2 Delivery O2 Flow Rate FiO2 11/21/18 09:09 96 20 30 11/21/18 08:56 100.0 11/21/18 08:28 95 130/70 11/21/18 08:00 102.4 95 20 130/70 (90) 100 11/21/18 08:00 30 11/21/18 08:00 Mechanical Ventilator 11/21/18 07:40 93 11/21/18 07:24 94 21 30 11/21/18 05:42 103 136/70 11/21/18 05:42 136/70 11/21/18 05:30 100 23 30 11/21/18 04:00 Mechanical Ventilator 11/21/18 04:00 99.5 106 20 150/82 (104) 100 11/21/18 04:00 30 11/21/18 03:26 103 11/21/18 03:23 103 22 30 11/21/18 00:42 96 24 30 11/21/18 00:00 98.8 85 20 123/70 (87) 98 11/21/18 00:00 Mechanical Ventilator 11/20/18 23:34 83 21 30 11/20/18 23:28 84 11/20/18 21:43 140/74 11/20/18 21:42 91 140/74 11/20/18 21:33 91 20 30 11/20/18 20:00 101.6 96 20 140/74 (96) 100 11/20/18 20:00 30 11/20/18 20:00 Mechanical Ventilator 11/20/18 19:32 95 24 100 Mechanical Ventilator 30 11/20/18 19:32 95 24 30 11/20/18 19:22 98 11/20/18 17:21 96 22 30 11/20/18 16:00 97.8 98 19 146/75 (98) 100 11/20/18 16:00 Mechanical Ventilator 11/20/18 16:00 97 11/20/18 16:00 30 11/20/18 14:50 99 24 30 11/20/18 14:31 98 140/72 11/20/18 14:31 140/72 11/20/18 13:05 98 21 30 11/20/18 12:20 94 19 30 General Appearance: no apparent distress, on vent EENT: PERRL/EOMI, normal ENT inspection, TMs normal Neck: non-tender, normal alignment, supple, normal inspection Rhythm: NSR, PVCs Cardiovascular: normal peripheral pulses, normal rate, regular rhythm Respiratory/Chest: chest wall non-tender, lungs clear Abdomen: normal bowel sounds, non tender Extremities: normal range of motion, non-tender Neurologic: range aid II-XII grossly normal, no motor/sensory deficits Intake and Output 11/20/18 11/21/18 19:00 07:00 Intake Total 850 ml 1095.0 ml Output Total 900 ml 950 ml Balance -50 ml 145.0 ml Intake Free Water 200 ml 100 ml IV Total 475.0 ml Tube Feeding 650 ml 520 ml Output Urine Total 900 ml 950 ml # Bowel Movements 2 Laboratory Tests Test 11/21/18 04:00 White Blood Count 12.5 K/UL (4.8-10.8) H Red Blood Count 3.38 M/UL (4.20-5.40) L Hemoglobin 8.7 G/DL (12.0-16.0) L Hematocrit 26.5 % (37.0-47.0) L Mean Corpuscular Volume 78 FL (80-99) L Mean Corpuscular Hemoglobin 25.7 PG (27.0-31.0) L Mean Corpuscular Hemoglobin Concent 32.8 G/DL (32.0-36.0) Red Cell Distribution Width 23.0 % (11.6-14.8) H Platelet Count 484 K/UL (150-450) H Mean Platelet Volume 5.5 FL (6.5-10.1) L Neutrophils (%) (Auto) 84.2 % (45.0-75.0) H Lymphocytes (%) (Auto) 10.1 % (20.0-45.0) L Monocytes (%) (Auto) 4.5 % (1.0-10.0) Eosinophils (%) (Auto) 0.7 % (0.0-3.0) Basophils (%) (Auto) 0.5 % (0.0-2.0) Sodium Level 138 MMOL/L (136-145) Potassium Level 3.7 MMOL/L (3.5-5.1) Chloride Level 101 MMOL/L (98-107) Carbon Dioxide Level 30 MMOL/L (21-32) Anion Gap 7 mmol/L (5-15) Blood Urea Nitrogen 13 mg/dL (7-18) Creatinine 0.3 MG/DL (0.55-1.30) L Estimat Glomerular Filtration Rate mL/min (>60) Glucose Level 90 MG/DL (74-106) Calcium Level 8.2 MG/DL (8.5-10.1) L Phosphorus Level 2.2 MG/DL (2.5-4.9) L Magnesium Level 2.0 MG/DL (1.8-2.4) Total Bilirubin 0.2 MG/DL (0.2-1.0) Aspartate Amino Transf (AST/SGOT) 137 U/L (15-37) H Alanine Aminotransferase (ALT/SGPT) 117 U/L (12-78) H Alkaline Phosphatase 240 U/L (46-116) H Total Protein 6.1 G/DL (6.4-8.2) L Albumin 1.2 G/DL (3.4-5.0) L Globulin 4.9 g/dL Albumin/Globulin Ratio 0.2 (1.0-2.7) L Eloy Bryson MD Nov 21, 2018 12:26
--- NOTE | 2018-11-21 12:30 | NUR ---
NURSE NOTES: Ruddy De Leon signed the consent for CT abd with contrast. Called radiology and informed them.
--- NOTE | 2018-11-21 12:37 | Pulmonology Progress Note ---
Assessment/Plan Problems: (1) Ventilator dependence (2) Tracheostomy dependence (3) UTI (urinary tract infection) (4) Fever (5) Anoxic brain damage (6) Tongue abnormality (7) Seizure disorder (8) Colon adenocarcinoma (9) HTN (hypertension) (10) Sepsis (11) Diabetes (12) Abnormal LFTs (13) Protein calorie malnutrition (14) Gastrostomy in place (15) [facility] resident (16) Decubitus skin ulcer Assessment/Plan Continue ventilatory support/settings reviewed Titrate down FiO2 to keep SaO2 > 90% Optimize pulmonary hygiene/mobilize as tolerated RTC and PRN HHN's Abx per ID, F/U Cx's F/U CT AP F/U cards recs Monitor volumes and renal function DVT Px: LMWH Needs to be seen by OMFS or DDS, needs a tooth extraction FC, continue to discuss GOC Wound care Subjective Allergies: Coded Allergies: Crayfish (Unverified Allergy, Unknown, 11/11/18) Uncoded Allergies: Crawfish (Allergy, Unknown, 11/09/18) Subjective Tm 102.4 VSS stable on vent no sig secretions no distress Objective Last 24 Hour Vital Signs Date Time Temp Pulse Resp B/P (MAP) Pulse Ox O2 Delivery O2 Flow Rate FiO2 11/21/18 09:09 96 20 30 11/21/18 08:56 100.0 11/21/18 08:28 95 130/70 11/21/18 08:00 102.4 95 20 130/70 (90) 100 11/21/18 08:00 30 11/21/18 08:00 Mechanical Ventilator 11/21/18 07:40 93 11/21/18 07:24 94 21 30 11/21/18 05:42 103 136/70 11/21/18 05:42 136/70 11/21/18 05:30 100 23 30 11/21/18 04:00 Mechanical Ventilator 11/21/18 04:00 99.5 106 20 150/82 (104) 100 11/21/18 04:00 30 11/21/18 03:26 103 11/21/18 03:23 103 22 30 11/21/18 00:42 96 24 30 11/21/18 00:00 98.8 85 20 123/70 (87) 98 11/21/18 00:00 Mechanical Ventilator 11/20/18 23:34 83 21 30 11/20/18 23:28 84 11/20/18 21:43 140/74 11/20/18 21:42 91 140/74 11/20/18 21:33 91 20 30 11/20/18 20:00 101.6 96 20 140/74 (96) 100 11/20/18 20:00 30 11/20/18 20:00 Mechanical Ventilator 11/20/18 19:32 95 24 100 Mechanical Ventilator 30 11/20/18 19:32 95 24 30 11/20/18 19:22 98 11/20/18 17:21 96 22 30 11/20/18 16:00 97.8 98 19 146/75 (98) 100 11/20/18 16:00 Mechanical Ventilator 11/20/18 16:00 97 11/20/18 16:00 30 11/20/18 14:50 99 24 30 11/20/18 14:31 98 140/72 11/20/18 14:31 140/72 11/20/18 13:05 98 21 30 Intake and Output 11/20/18 11/21/18 19:00 07:00 Intake Total 850 ml 1095.0 ml Output Total 900 ml 950 ml Balance -50 ml 145.0 ml Intake Free Water 200 ml 100 ml IV Total 475.0 ml Tube Feeding 650 ml 520 ml Output Urine Total 900 ml 950 ml # Bowel Movements 2 General Appearance: no acute distress, cachetic, other - non-verbal HEENT: normocephalic, atraumatic, anicteric, mucous membranes moist, status post trach, other - macroglossia and lip edema\ Respiratory/Chest: chest wall non-tender, lungs clear, normal breath sounds, no respiratory distress Cardiovascular: normal peripheral pulses, normal rate, regular rhythm Abdomen: normal bowel sounds, soft, non tender, no organomegaly, non distended , no mass, other - GT Extremities: no cyanosis, no clubbing, no edema Laboratory Tests 11/21/18 04:00: White Blood Count 12.5H, Red Blood Count 3.38L, Hemoglobin 8.7L, Hematocrit 26.5L, Mean Corpuscular Volume 78L, Mean Corpuscular Hemoglobin 25.7L, Mean Corpuscular Hemoglobin Concent 32.8, Red Cell Distribution Width 23.0H, Platelet Count 484H, Mean Platelet Volume 5.5L, Neutrophils (%) (Auto) 84.2H, Lymphocytes (%) (Auto) 10.1L, Monocytes (%) (Auto) 4.5, Eosinophils (%) (Auto) 0.7, Basophils (%) (Auto) 0.5, Sodium Level 138, Potassium Level 3.7, Chloride Level 101, Carbon Dioxide Level 30, Anion Gap 7, Blood Urea Nitrogen 13, Creatinine 0.3L, Estimat Glomerular Filtration Rate , Glucose Level 90, Calcium Level 8.2L, Phosphorus Level 2.2L, Magnesium Level 2.0, Total Bilirubin 0.2, Aspartate Amino Transf (AST/SGOT) 137H, Alanine Aminotransferase (ALT/SGPT) 117H , Alkaline Phosphatase 240H, Total Protein 6.1L, Albumin 1.2L, Globulin 4.9, Albumin/Globulin Ratio 0.2L Current Medications Medications (Trade) Dose Ordered Sig/Lupe Route PRN Reason Start Time Stop Time Status Last Admin Dose Admin Acetaminophen (Tylenol) 650 mg Q4H PRN GT Mild Pain/Temp > 100.5 11/09/18 05:00 12/09/18 04:59 11/21/18 08:26 Albuterol/ Ipratropium (Albuterol/ Ipratropium) 3 ml Q4H PRN HHN Shortness of Breath 11/17/18 12:30 11/22/18 12:29 Amlodipine Besylate (Norvasc) 10 mg DAILY GT 11/09/18 09:00 12/09/18 08:59 11/21/18 08:28 Bisacodyl (Dulcolax) 10 mg DAILY PRN RECTAL Constipation 11/09/18 05:00 12/09/18 04:59 Calcium Carbonate (Tums) 500 mg EVERY 8 HOURS GT 11/09/18 14:00 12/09/18 08:59 11/21/18 05:42 Chlorhexidine Gluconate (Corazon-Hex 2%) 1 applic DAILY@1999 TOPIC 11/12/18 20:00 12/12/18 19:59 11/20/18 20:25 Dextrose (Dextrose 50%) 25 ml Q30M PRN IV Hypoglycemia 11/09/18 04:45 12/09/18 04:44 Dextrose (Dextrose 50%) 50 ml Q30M PRN IV Hypoglycemia 11/09/18 04:45 12/09/18 04:44 11/09/18 09:09 Enoxaparin Sodium (Lovenox) 40 mg DAILY SUBQ 11/09/18 09:00 12/09/18 08:59 11/21/18 08:45 Famotidine (Pepcid) 20 mg EVERY 12 HOURS GT 11/09/18 21:00 12/09/18 08:59 11/21/18 08:27 Fluconazole/ Sodium Chloride 100 ml @ 100 mls/hr Q24H IV 11/18/18 16:00 11/25/18 15:59 11/20/18 16:06 Furosemide (Lasix) 40 mg EVERY 12 HOURS GT 11/09/18 09:00 12/09/18 08:59 11/21/18 08:44 Hydralazine HCl (Apresoline) 5 mg EVERY 8 HOURS GT 11/09/18 06:00 12/09/18 05:59 11/21/18 05:42 Insulin Aspart (NovoLOG) Q6HR SUBQ 11/09/18 06:00 12/09/18 05:59 11/20/18 05:22 Insulin Detemir (Levemir) 4 units EVERY 12 HOURS SUBQ 11/16/18 21:00 12/09/18 08:59 11/21/18 08:31 Labetalol HCl (Normodyne) 200 mg Q8HR GT 11/09/18 06:00 12/09/18 05:59 11/21/18 05:42 Levetiracetam (Keppra) 1,500 mg Q12HR GT 11/09/18 09:00 12/09/18 08:59 11/21/18 08:27 Magnesium Hydroxide (Mom) 30 ml DAILY PRN GT Constipation 11/09/18 05:00 12/09/18 04:59 Magnesium Oxide (Mag-Ox 400mg) 400 mg EVERY 8 HOURS GT 11/09/18 14:00 12/09/18 08:59 11/21/18 05:42 Meropenem 1 gm/ Sodium Chloride 100 ml @ 200 mls/hr Q8HR IVPB 11/20/18 14:00 11/25/18 23:59 11/21/18 05:42 Ondansetron HCl (Zofran) 4 mg Q6H PRN GT Nausea & Vomiting 11/09/18 05:00 12/09/18 04:59 Phenobarbital (PHENobarbital) 60 mg BID GT 11/09/18 09:00 12/09/18 08:59 11/21/18 08:28 Phenytoin (Dilantin) 100 mg Q8HR GT 11/09/18 06:00 12/09/18 05:59 11/21/18 05:43 Polyethylene Glycol (Miralax) 17 gm DAILYPRN PRN GT Constipation 11/14/18 10:30 12/12/18 10:29 Sennosides (Senokot) 8.6 mg EVERY 12 HOURS GT 11/09/18 21:00 12/09/18 08:59 11/20/18 20:26 Valproic Acid (Depakene) 500 mg EVERY 8 HOURS GT 11/09/18 06:00 12/09/18 05:59 11/21/18 05:43 Vancomycin HCl (Vanco rx to dose) 1 ea DAILY PRN MISC Per rx protocol 11/20/18 13:30 12/20/18 13:29 Vancomycin HCl 750 mg/Sodium Chloride 275 ml @ 183.333 mls/hr Q12HR@0800,1999 IVPB 11/20/18 20:00 11/25/18 19:59 11/21/18 08:26 Balbir Dejesus MD Nov 21, 2018 12:37
--- NOTE | 2018-11-21 12:49 | GI Progress Note ---
Assessment/Plan Problems: (1) Abnormal LFTs ICD Codes: R94.5 - Abnormal results of liver function studies SNOMED: 233291583 (2) Decubitus skin ulcer ICD Codes: L89.90 - Pressure ulcer of unspecified site, unspecified stage SNOMED: 742929966 (3) Protein calorie malnutrition ICD Codes: E46 - Unspecified protein-calorie malnutrition SNOMED: 832973891 (4) Colon adenocarcinoma ICD Codes: C18.9 - Malignant neoplasm of colon, unspecified SNOMED: 861602597 (5) Sepsis ICD Codes: A41.9 - Sepsis, unspecified organism SNOMED: 57542296 (6) Tracheostomy dependence ICD Codes: Z93.0 - Tracheostomy status SNOMED: 239797624 (7) Gastrostomy in place ICD Codes: Z93.1 - Gastrostomy status SNOMED: 57260362, 02456709, 722918167 Status: stable Status Narrative Discussed with Dr. Humphries. Assessment/Plan Assessment - Iron deficiency anemia - abnormal LFT - ? meds, passive congestion - dysphagia, s/p GT - Resp, failure, s/p Trach - hepatitis panel negative Recommendations - Continue TF - Monitor LFT - IV Iron - follow CBC - Conservative approach given poor health The patient was seen and examined at bedside and all new and available data was reviewed in the patients chart. I agree with the above findings, impression and plan. (Patient seen earlier today. Signature stamp does not reflect patient encounter time.). - Casper Humphries MD Subjective Subjective limited Objective Last 24 Hour Vital Signs Date Time Temp Pulse Resp B/P (MAP) Pulse Ox O2 Delivery O2 Flow Rate FiO2 11/21/18 12:00 30 11/21/18 09:09 96 20 30 11/21/18 08:56 100.0 11/21/18 08:28 95 130/70 11/21/18 08:00 102.4 95 20 130/70 (90) 100 11/21/18 08:00 30 11/21/18 08:00 Mechanical Ventilator 11/21/18 07:40 93 11/21/18 07:24 94 21 30 11/21/18 05:42 103 136/70 11/21/18 05:42 136/70 11/21/18 05:30 100 23 30 11/21/18 04:00 Mechanical Ventilator 11/21/18 04:00 99.5 106 20 150/82 (104) 100 11/21/18 04:00 30 11/21/18 03:26 103 11/21/18 03:23 103 22 30 11/21/18 00:42 96 24 30 11/21/18 00:00 98.8 85 20 123/70 (87) 98 11/21/18 00:00 Mechanical Ventilator 11/20/18 23:34 83 21 30 11/20/18 23:28 84 11/20/18 21:43 140/74 11/20/18 21:42 91 140/74 11/20/18 21:33 91 20 30 11/20/18 20:00 101.6 96 20 140/74 (96) 100 11/20/18 20:00 30 11/20/18 20:00 Mechanical Ventilator 11/20/18 19:32 95 24 100 Mechanical Ventilator 30 11/20/18 19:32 95 24 30 11/20/18 19:22 98 11/20/18 17:21 96 22 30 11/20/18 16:00 97.8 98 19 146/75 (98) 100 11/20/18 16:00 Mechanical Ventilator 11/20/18 16:00 97 11/20/18 16:00 30 11/20/18 14:50 99 24 30 11/20/18 14:31 98 140/72 11/20/18 14:31 140/72 11/20/18 13:05 98 21 30 Intake and Output 11/20/18 11/21/18 19:00 07:00 Intake Total 850 ml 1095.0 ml Output Total 900 ml 950 ml Balance -50 ml 145.0 ml Intake Free Water 200 ml 100 ml IV Total 475.0 ml Tube Feeding 650 ml 520 ml Output Urine Total 900 ml 950 ml # Bowel Movements 2 Laboratory Tests Test 11/21/18 04:00 White Blood Count 12.5 K/UL (4.8-10.8) H Red Blood Count 3.38 M/UL (4.20-5.40) L Hemoglobin 8.7 G/DL (12.0-16.0) L Hematocrit 26.5 % (37.0-47.0) L Mean Corpuscular Volume 78 FL (80-99) L Mean Corpuscular Hemoglobin 25.7 PG (27.0-31.0) L Mean Corpuscular Hemoglobin Concent 32.8 G/DL (32.0-36.0) Red Cell Distribution Width 23.0 % (11.6-14.8) H Platelet Count 484 K/UL (150-450) H Mean Platelet Volume 5.5 FL (6.5-10.1) L Neutrophils (%) (Auto) 84.2 % (45.0-75.0) H Lymphocytes (%) (Auto) 10.1 % (20.0-45.0) L Monocytes (%) (Auto) 4.5 % (1.0-10.0) Eosinophils (%) (Auto) 0.7 % (0.0-3.0) Basophils (%) (Auto) 0.5 % (0.0-2.0) Sodium Level 138 MMOL/L (136-145) Potassium Level 3.7 MMOL/L (3.5-5.1) Chloride Level 101 MMOL/L (98-107) Carbon Dioxide Level 30 MMOL/L (21-32) Anion Gap 7 mmol/L (5-15) Blood Urea Nitrogen 13 mg/dL (7-18) Creatinine 0.3 MG/DL (0.55-1.30) L Estimat Glomerular Filtration Rate mL/min (>60) Glucose Level 90 MG/DL (74-106) Calcium Level 8.2 MG/DL (8.5-10.1) L Phosphorus Level 2.2 MG/DL (2.5-4.9) L Magnesium Level 2.0 MG/DL (1.8-2.4) Total Bilirubin 0.2 MG/DL (0.2-1.0) Aspartate Amino Transf (AST/SGOT) 137 U/L (15-37) H Alanine Aminotransferase (ALT/SGPT) 117 U/L (12-78) H Alkaline Phosphatase 240 U/L (46-116) H Total Protein 6.1 G/DL (6.4-8.2) L Albumin 1.2 G/DL (3.4-5.0) L Globulin 4.9 g/dL Albumin/Globulin Ratio 0.2 (1.0-2.7) L Height (Feet): 5 Height (Inches): 8.00 Weight (Pounds): 205 Abdominal Exam: GT site - c/d/i Aysha Sykes NP Nov 21, 2018 12:49
--- NOTE | 2018-11-21 13:31 | Hematology/Onc Progress Note ---
Assessment/Plan Assessment/Plan 95k# Anemia of chronic disease due to underlying chronic medical issues, multifactorial --> Anemia workup has been reviewed and cw acd --> No evidence of hemolysis is noted, peripheral smear has been reviewed. --> Hgb goal >7. Transfuse prn. --> hgb trend 9.1-->8.9-->9-->8.9-->8.9->7.8->8.7 --> Epogen or iron indication prn --> Medications have been reviewed --> low threshold for gi evaluation in case has occult + --> bone marrow biopsy is not indicated given the other more likely causes # Leukocytosis iwth Sepsis secondary to UTI, GPC Staph Epidermidis bacteremia, Line associated infection - patient arrived to the Hospital with PICC --> as per ID consult appreciate Rec --> Continue antibiotics per ID: Continue Zosyn and vancomycin, anti fungal added--> kaykay/vanc, diflucan --> imaging noted # Thrombocytosis is likely due to underlying reactive process --> if doesn't improve send off jak2 --> plt count 641k # Transaminitis --> trend lft's --> GI consult, apprec recs --> ab us: reviewed # Elevated troponin secondary to sepsis versus ACS --> as per Cardiology consult, appreciate recs --> now better # Hypertension- improved --> sbp goal <150 # 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 GREATLY APPRECIATE CONSULTATION. Subjective Allergies: Coded Allergies: Crayfish (Unverified Allergy, Unknown, 11/11/18) Uncoded Allergies: Crawfish (Allergy, Unknown, 11/09/18) Subjective 11/14: no events to report, labs relatively stable, hgb 8.9, on vent 11/15: no bleeding, no chills, labs reviewed, no major changes 11/16: cxr-->bilateral interstitial edema, vs stable, on abx, on vent, contact isolation 11/17: labs reviewed, on abx, vs stable, on vent, no distress 11/18: remains on gtube feeds, is on vent, on kaykay/vanc 11/20: no events, no bleeding, kaykay, vanc, diflucan, no f/c 11/21: remains on vent, gtube feeds, no major changes, no bleeding Objective Objective Current Medications Medications (Trade) Dose Ordered Sig/Lupe Route PRN Reason Start Time Stop Time Status Last Admin Dose Admin Acetaminophen (Tylenol) 650 mg Q4H PRN GT Mild Pain/Temp > 100.5 11/09/18 05:00 12/09/18 04:59 11/21/18 08:26 Albuterol/ Ipratropium (Albuterol/ Ipratropium) 3 ml Q4H PRN HHN Shortness of Breath 11/17/18 12:30 11/22/18 12:29 Amlodipine Besylate (Norvasc) 10 mg DAILY GT 11/09/18 09:00 12/09/18 08:59 11/21/18 08:28 Bisacodyl (Dulcolax) 10 mg DAILY PRN RECTAL Constipation 11/09/18 05:00 12/09/18 04:59 Calcium Carbonate (Tums) 500 mg EVERY 8 HOURS GT 11/09/18 14:00 12/09/18 08:59 11/21/18 05:42 Chlorhexidine Gluconate (Corazon-Hex 2%) 1 applic DAILY@2000 TOPIC 11/12/18 20:00 12/12/18 19:59 11/20/18 20:25 Dextrose (Dextrose 50%) 25 ml Q30M PRN IV Hypoglycemia 11/09/18 04:45 12/09/18 04:44 Dextrose (Dextrose 50%) 50 ml Q30M PRN IV Hypoglycemia 11/09/18 04:45 12/09/18 04:44 11/09/18 09:09 Enoxaparin Sodium (Lovenox) 40 mg DAILY SUBQ 11/09/18 09:00 12/09/18 08:59 11/21/18 08:45 Famotidine (Pepcid) 20 mg EVERY 12 HOURS GT 11/09/18 21:00 12/09/18 08:59 11/21/18 08:27 Fluconazole/ Sodium Chloride 100 ml @ 100 mls/hr Q24H IV 11/18/18 16:00 11/25/18 15:59 11/20/18 16:06 Furosemide (Lasix) 40 mg EVERY 12 HOURS GT 11/09/18 09:00 12/09/18 08:59 11/21/18 08:44 Hydralazine HCl (Apresoline) 5 mg EVERY 8 HOURS GT 11/09/18 06:00 12/09/18 05:59 11/21/18 05:42 Insulin Aspart (NovoLOG) Q6HR SUBQ 11/09/18 06:00 12/09/18 05:59 11/21/18 13:05 Insulin Detemir (Levemir) 4 units EVERY 12 HOURS SUBQ 11/16/18 21:00 12/09/18 08:59 11/21/18 08:31 Labetalol HCl (Normodyne) 200 mg Q8HR GT 11/09/18 06:00 12/09/18 05:59 11/21/18 05:42 Levetiracetam (Keppra) 1,500 mg Q12HR GT 11/09/18 09:00 12/09/18 08:59 11/21/18 08:27 Magnesium Hydroxide (Mom) 30 ml DAILY PRN GT Constipation 11/09/18 05:00 12/09/18 04:59 Magnesium Oxide (Mag-Ox 400mg) 400 mg EVERY 8 HOURS GT 11/09/18 14:00 12/09/18 08:59 11/21/18 05:42 Meropenem 1 gm/ Sodium Chloride 100 ml @ 200 mls/hr Q8HR IVPB 11/20/18 14:00 11/25/18 23:59 11/21/18 05:42 Ondansetron HCl (Zofran) 4 mg Q6H PRN GT Nausea & Vomiting 11/09/18 05:00 12/09/18 04:59 Phenobarbital (PHENobarbital) 60 mg BID GT 11/09/18 09:00 12/09/18 08:59 11/21/18 08:28 Phenytoin (Dilantin) 100 mg Q8HR GT 11/09/18 06:00 12/09/18 05:59 11/21/18 05:43 Polyethylene Glycol (Miralax) 17 gm DAILYPRN PRN GT Constipation 11/14/18 10:30 12/12/18 10:29 Sennosides (Senokot) 8.6 mg EVERY 12 HOURS GT 11/09/18 21:00 12/09/18 08:59 11/20/18 20:26 Valproic Acid (Depakene) 500 mg EVERY 8 HOURS GT 11/09/18 06:00 12/09/18 05:59 11/21/18 05:43 Vancomycin HCl (Vanco rx to dose) 1 ea DAILY PRN MISC Per rx protocol 11/20/18 13:30 12/20/18 13:29 Vancomycin HCl 750 mg/Sodium Chloride 275 ml @ 183.333 mls/hr Q12HR@0800,1999 IVPB 11/20/18 20:00 11/25/18 19:59 11/21/18 08:26 Last 24 Hour Vital Signs Date Time Temp Pulse Resp B/P (MAP) Pulse Ox O2 Delivery O2 Flow Rate FiO2 11/21/18 12:00 30 11/21/18 12:00 100.4 94 21 100/52 (68) 100 11/21/18 12:00 Mechanical Ventilator 11/21/18 11:39 88 11/21/18 11:03 99 22 30 11/21/18 09:09 96 20 30 11/21/18 08:56 100.0 11/21/18 08:28 95 130/70 11/21/18 08:00 102.4 95 20 130/70 (90) 100 11/21/18 08:00 30 11/21/18 08:00 Mechanical Ventilator 11/21/18 07:40 93 11/21/18 07:24 94 21 30 11/21/18 05:42 103 136/70 11/21/18 05:42 136/70 11/21/18 05:30 100 23 30 11/21/18 04:00 Mechanical Ventilator 11/21/18 04:00 99.5 106 20 150/82 (104) 100 11/21/18 04:00 30 11/21/18 03:26 103 11/21/18 03:23 103 22 30 11/21/18 00:42 96 24 30 11/21/18 00:00 98.8 85 20 123/70 (87) 98 11/21/18 00:00 Mechanical Ventilator 11/20/18 23:34 83 21 30 11/20/18 23:28 84 11/20/18 21:43 140/74 11/20/18 21:42 91 140/74 11/20/18 21:33 91 20 30 11/20/18 20:00 101.6 96 20 140/74 (96) 100 11/20/18 20:00 30 11/20/18 20:00 Mechanical Ventilator 11/20/18 19:32 95 24 100 Mechanical Ventilator 30 11/20/18 19:32 95 24 30 11/20/18 19:22 98 11/20/18 17:21 96 22 30 11/20/18 16:00 97.8 98 19 146/75 (98) 100 11/20/18 16:00 Mechanical Ventilator 11/20/18 16:00 97 11/20/18 16:00 30 11/20/18 14:50 99 24 30 11/20/18 14:31 98 140/72 11/20/18 14:31 140/72 11/20/18 13:05 98 21 30 11/20/18 12:20 94 19 30 11/20/18 12:00 99.6 101 19 140/72 (94) 100 11/20/18 12:00 Mechanical Ventilator 11/20/18 12:00 30 11/20/18 11:50 95 11/20/18 09:00 90 26 30 11/20/18 08:21 90 131/48 11/20/18 08:01 90 24 30 11/20/18 08:00 30 11/20/18 08:00 100.0 91 20 131/48 (75) 100 11/20/18 08:00 Mechanical Ventilator 11/20/18 07:38 86 11/20/18 05:18 89 20 30 11/20/18 05:09 125/65 11/20/18 05:08 94 125/65 11/20/18 04:00 98.1 93 20 125/65 (85) 100 11/20/18 04:00 30 11/20/18 04:00 Mechanical Ventilator 11/20/18 03:54 93 11/20/18 03:30 96 19 30 11/20/18 00:35 95 21 30 11/20/18 00:00 Mechanical Ventilator 11/20/18 00:00 99.9 95 20 132/71 (91) 100 11/19/18 23:30 95 11/19/18 23:00 95 24 30 11/19/18 22:15 139/66 11/19/18 22:14 97 139/66 11/19/18 21:04 102 21 30 11/19/18 20:00 98.2 97 20 119/64 (82) 100 11/19/18 20:00 30 11/19/18 20:00 Mechanical Ventilator 11/19/18 19:37 96 11/19/18 19:06 95 22 30 11/19/18 16:57 108 11/19/18 16:42 102 21 30 11/19/18 16:00 101.2 106 21 151/76 (101) 99 11/19/18 16:00 30 11/19/18 16:00 Mechanical Ventilator 11/19/18 15:30 108 24 30 11/19/18 14:28 114 156/71 11/19/18 14:28 156/71 Intake and Output 11/20/18 11/21/18 19:00 07:00 Intake Total 850 ml 1095.0 ml Output Total 900 ml 950 ml Balance -50 ml 145.0 ml Intake Free Water 200 ml 100 ml IV Total 475.0 ml Tube Feeding 650 ml 520 ml Output Urine Total 900 ml 950 ml # Bowel Movements 2 Labs Test 11/19/18 03:45 11/20/18 04:15 11/21/18 04:00 White Blood Count 11.6 K/UL (4.8-10.8) 13.3 K/UL (4.8-10.8) 12.5 K/UL (4.8-10.8) Red Blood Count 3.53 M/UL (4.20-5.40) 3.04 M/UL (4.20-5.40) 3.38 M/UL (4.20-5.40) Hemoglobin 8.9 G/DL (12.0-16.0) 7.8 G/DL (12.0-16.0) 8.7 G/DL (12.0-16.0) Hematocrit 27.8 % (37.0-47.0) 23.8 % (37.0-47.0) 26.5 % (37.0-47.0) Mean Corpuscular Volume 79 FL (80-99) 78 FL (80-99) 78 FL (80-99) Mean Corpuscular Hemoglobin 25.2 PG (27.0-31.0) 25.6 PG (27.0-31.0) 25.7 PG (27.0-31.0) Mean Corpuscular Hemoglobin Concent 32.0 G/DL (32.0-36.0) 32.8 G/DL (32.0-36.0) 32.8 G/DL (32.0-36.0) Red Cell Distribution Width 22.6 % (11.6-14.8) 22.8 % (11.6-14.8) 23.0 % (11.6-14.8) Platelet Count 640 K/UL (150-450) 495 K/UL (150-450) 484 K/UL (150-450) Mean Platelet Volume 5.5 FL (6.5-10.1) 5.4 FL (6.5-10.1) 5.5 FL (6.5-10.1) Neutrophils (%) (Auto) 79.7 % (45.0-75.0) % (45.0-75.0) 84.2 % (45.0-75.0) Lymphocytes (%) (Auto) 8.4 % (20.0-45.0) % (20.0-45.0) 10.1 % (20.0-45.0) Monocytes (%) (Auto) 8.3 % (1.0-10.0) % (1.0-10.0) 4.5 % (1.0-10.0) Eosinophils (%) (Auto) 3.0 % (0.0-3.0) % (0.0-3.0) 0.7 % (0.0-3.0) Basophils (%) (Auto) 0.7 % (0.0-2.0) % (0.0-2.0) 0.5 % (0.0-2.0) Sodium Level 138 MMOL/L (136-145) 139 MMOL/L (136-145) 138 MMOL/L (136-145) Potassium Level 4.4 MMOL/L (3.5-5.1) 3.6 MMOL/L (3.5-5.1) 3.7 MMOL/L (3.5-5.1) Chloride Level 101 MMOL/L (98-107) 101 MMOL/L (98-107) 101 MMOL/L (98-107) Carbon Dioxide Level 32 MMOL/L (21-32) 32 MMOL/L (21-32) 30 MMOL/L (21-32) Anion Gap 5 mmol/L (5-15) 6 mmol/L (5-15) 7 mmol/L (5-15) Blood Urea Nitrogen 13 mg/dL (7-18) 14 mg/dL (7-18) 13 mg/dL (7-18) Creatinine 0.5 MG/DL (0.55-1.30) 0.4 MG/DL (0.55-1.30) 0.3 MG/DL (0.55-1.30) Estimat Glomerular Filtration Rate mL/min (>60) mL/min (>60) mL/min (>60) Glucose Level 114 MG/DL (74-106) 118 MG/DL (74-106) 90 MG/DL (74-106) Calcium Level 8.4 MG/DL (8.5-10.1) 7.9 MG/DL (8.5-10.1) 8.2 MG/DL (8.5-10.1) Total Bilirubin 0.2 MG/DL (0.2-1.0) 0.2 MG/DL (0.2-1.0) 0.2 MG/DL (0.2-1.0) Aspartate Amino Transf (AST/SGOT) 160 U/L (15-37) 130 U/L (15-37) 137 U/L (15-37) Alanine Aminotransferase (ALT/SGPT) 145 U/L (12-78) 124 U/L (12-78) 117 U/L (12-78) Alkaline Phosphatase 272 U/L (46-116) 248 U/L (46-116) 240 U/L (46-116) Total Protein 6.2 G/DL (6.4-8.2) 5.4 G/DL (6.4-8.2) 6.1 G/DL (6.4-8.2) Albumin 1.3 G/DL (3.4-5.0) 1.1 G/DL (3.4-5.0) 1.2 G/DL (3.4-5.0) Globulin 4.9 g/dL 4.3 g/dL 4.9 g/dL Albumin/Globulin Ratio 0.3 (1.0-2.7) 0.3 (1.0-2.7) 0.2 (1.0-2.7) Phosphorus Level 2.2 MG/DL (2.5-4.9) Magnesium Level 2.0 MG/DL (1.8-2.4) Height (Feet): 5 Height (Inches): 8.00 Weight (Pounds): 205 Objective Physical Exam: Vitals: reviewed Gen: NAD HEENT: normocephalic, atraumatic Neck: non-tender, normal alignment ++ vent Respiratory: normal breath sounds bilaterally CV: normal peripheral pulses, rrr Abdomen: normal bowel sounds, soft, nontender +gtube Extremities: normal range of motion Yonathan Hernandez MD Nov 21, 2018 13:31
--- NOTE | 2018-11-21 13:42 | Infectious Diseases Prog Note ---
Assessment/Plan Assessment/Plan ASSESSMENT AND PLAN: 1. 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 fungal uti vs colonization - vancomycin and meropenem, diflucan - picc line changed - f/u on CT abdomen and pelvis for persistent fevers - monitor labs and chest x-ray - sacral wound management per surgery - please see orders 2. Trach-vent respiratory failure. 3. Dysphagia, G-tube. 4. Anemia. 5. Diabetes. 6. Hypertension. 7. Large tongue. 8. Anoxic brain injury. 9. Weakness. 10. Poorly responsive. 11. History of seizures. 12. History of colon adenocarcinoma. 13. Skin care protocol. 14. Allergy to crawfish. 15. Social history negative. 16. Family history noncontributory. 17. MAR was noted. 18. Case was discussed with RN. 19. Continue treatment per primary consultants. 20. Orders were ordered, entered, and noted. 21. Continue wound care protocol. 22. Continue blood sugar and blood pressure treatment per primary consultants for diabetes and hypertension. 23. vre colonization and isolation Subjective Constitutional: Reports: fever, other - + trach and vent HEENT: Reports: congestion Respiratory: Reports: shortness of breath Gastrointestinal/Abdominal: Denies: nausea, vomiting, diarrhea Allergies: Coded Allergies: Crayfish (Unverified Allergy, Unknown, 11/11/18) Uncoded Allergies: Crawfish (Allergy, Unknown, 11/09/18) Objective Vital Signs Last 24 Hour Vital Signs Date Time Temp Pulse Resp B/P (MAP) Pulse Ox O2 Delivery O2 Flow Rate FiO2 11/21/18 12:00 30 11/21/18 12:00 100.4 94 21 100/52 (68) 100 11/21/18 12:00 Mechanical Ventilator 11/21/18 11:39 88 11/21/18 11:03 99 22 30 11/21/18 09:09 96 20 30 11/21/18 08:56 100.0 11/21/18 08:28 95 130/70 11/21/18 08:00 102.4 95 20 130/70 (90) 100 11/21/18 08:00 30 11/21/18 08:00 Mechanical Ventilator 11/21/18 07:40 93 11/21/18 07:24 94 21 30 11/21/18 05:42 103 136/70 11/21/18 05:42 136/70 11/21/18 05:30 100 23 30 11/21/18 04:00 Mechanical Ventilator 11/21/18 04:00 99.5 106 20 150/82 (104) 100 11/21/18 04:00 30 11/21/18 03:26 103 11/21/18 03:23 103 22 30 11/21/18 00:42 96 24 30 11/21/18 00:00 98.8 85 20 123/70 (87) 98 11/21/18 00:00 Mechanical Ventilator 11/20/18 23:34 83 21 30 11/20/18 23:28 84 11/20/18 21:43 140/74 11/20/18 21:42 91 140/74 11/20/18 21:33 91 20 30 11/20/18 20:00 101.6 96 20 140/74 (96) 100 11/20/18 20:00 30 11/20/18 20:00 Mechanical Ventilator 11/20/18 19:32 95 24 100 Mechanical Ventilator 30 11/20/18 19:32 95 24 30 11/20/18 19:22 98 11/20/18 17:21 96 22 30 11/20/18 16:00 97.8 98 19 146/75 (98) 100 11/20/18 16:00 Mechanical Ventilator 11/20/18 16:00 97 11/20/18 16:00 30 11/20/18 14:50 99 24 30 11/20/18 14:31 98 140/72 11/20/18 14:31 140/72 Height (Feet): 5 Height (Inches): 8.00 Weight (Pounds): 205 HEENT: normocephalic, atraumatic, anicteric, status post trach Respiratory/Chest: crackles/rales, rhonchi - bilaterally Cardiovascular: normal rate, regular rhythm Abdomen: normal bowel sounds, soft, non tender, no organomegaly Objective 11/11/18 - chest x-ray - IMPRESSION: 1. Hypoventilatory lungs. Elevated right hemidiaphragm. Slightly improved vascular congestion. Similar bibasilar lung atelectasis and airspace disease. 2. Query right pleural effusion. 2-D echo - no vegetations mentioned, report noted sacral x-ray - no osteo mentioned, report noted 11/14/18 - Technique: One view of the chest Comparison: November 13, 2018 post PICC radiograph Findings: Bilateral interstitial and alveolar edema versus infiltrates appear slightly worse. There is increasing obscuration of left hemidiaphragm, may reflect increasing pleural fluid as well. The heart remains enlarged. Previously demonstrated left arm PICC has been removed. Stable right arm PICC. Impression: Slightly worsening bilateral interstitial and airspace infiltrates versus edema, over one day 11/16/18 - chest x-ray Procedure: XRAY Chest 1v Indication: Dyspnea Technique: One view of the chest Comparison: November 14, 2018 Findings: Bilateral interstitial edema persists. Tracheostomy, right arm PICC remain. The heart is enlarged. Impression: Bilateral interstitial edema, unchanged over 2 days Cardiomegaly Laboratory Tests Test 11/21/18 04:00 White Blood Count 12.5 K/UL (4.8-10.8) H Red Blood Count 3.38 M/UL (4.20-5.40) L Hemoglobin 8.7 G/DL (12.0-16.0) L Hematocrit 26.5 % (37.0-47.0) L Mean Corpuscular Volume 78 FL (80-99) L Mean Corpuscular Hemoglobin 25.7 PG (27.0-31.0) L Mean Corpuscular Hemoglobin Concent 32.8 G/DL (32.0-36.0) Red Cell Distribution Width 23.0 % (11.6-14.8) H Platelet Count 484 K/UL (150-450) H Mean Platelet Volume 5.5 FL (6.5-10.1) L Neutrophils (%) (Auto) 84.2 % (45.0-75.0) H Lymphocytes (%) (Auto) 10.1 % (20.0-45.0) L Monocytes (%) (Auto) 4.5 % (1.0-10.0) Eosinophils (%) (Auto) 0.7 % (0.0-3.0) Basophils (%) (Auto) 0.5 % (0.0-2.0) Sodium Level 138 MMOL/L (136-145) Potassium Level 3.7 MMOL/L (3.5-5.1) Chloride Level 101 MMOL/L (98-107) Carbon Dioxide Level 30 MMOL/L (21-32) Anion Gap 7 mmol/L (5-15) Blood Urea Nitrogen 13 mg/dL (7-18) Creatinine 0.3 MG/DL (0.55-1.30) L Estimat Glomerular Filtration Rate mL/min (>60) Glucose Level 90 MG/DL (74-106) Calcium Level 8.2 MG/DL (8.5-10.1) L Phosphorus Level 2.2 MG/DL (2.5-4.9) L Magnesium Level 2.0 MG/DL (1.8-2.4) Total Bilirubin 0.2 MG/DL (0.2-1.0) Aspartate Amino Transf (AST/SGOT) 137 U/L (15-37) H Alanine Aminotransferase (ALT/SGPT) 117 U/L (12-78) H Alkaline Phosphatase 240 U/L (46-116) H Total Protein 6.1 G/DL (6.4-8.2) L Albumin 1.2 G/DL (3.4-5.0) L Globulin 4.9 g/dL Albumin/Globulin Ratio 0.2 (1.0-2.7) L Current Medications Medications (Trade) Dose Ordered Sig/Lupe Route PRN Reason Start Time Stop Time Status Last Admin Dose Admin Acetaminophen (Tylenol) 650 mg Q4H PRN GT Mild Pain/Temp > 100.5 11/09/18 05:00 12/09/18 04:59 11/21/18 08:26 Albuterol/ Ipratropium (Albuterol/ Ipratropium) 3 ml Q4H PRN HHN Shortness of Breath 11/17/18 12:30 11/22/18 12:29 Amlodipine Besylate (Norvasc) 10 mg DAILY GT 11/09/18 09:00 12/09/18 08:59 11/21/18 08:28 Bisacodyl (Dulcolax) 10 mg DAILY PRN RECTAL Constipation 11/09/18 05:00 12/09/18 04:59 Calcium Carbonate (Tums) 500 mg EVERY 8 HOURS GT 11/09/18 14:00 12/09/18 08:59 11/21/18 05:42 Chlorhexidine Gluconate (Corazon-Hex 2%) 1 applic DAILY@1999 TOPIC 11/12/18 20:00 12/12/18 19:59 11/20/18 20:25 Dextrose (Dextrose 50%) 25 ml Q30M PRN IV Hypoglycemia 11/09/18 04:45 12/09/18 04:44 Dextrose (Dextrose 50%) 50 ml Q30M PRN IV Hypoglycemia 11/09/18 04:45 12/09/18 04:44 11/09/18 09:09 Enoxaparin Sodium (Lovenox) 40 mg DAILY SUBQ 11/09/18 09:00 12/09/18 08:59 11/21/18 08:45 Famotidine (Pepcid) 20 mg EVERY 12 HOURS GT 11/09/18 21:00 12/09/18 08:59 11/21/18 08:27 Fluconazole/ Sodium Chloride 100 ml @ 100 mls/hr Q24H IV 11/18/18 16:00 11/25/18 15:59 11/20/18 16:06 Furosemide (Lasix) 40 mg EVERY 12 HOURS GT 11/09/18 09:00 12/09/18 08:59 11/21/18 08:44 Hydralazine HCl (Apresoline) 5 mg EVERY 8 HOURS GT 11/09/18 06:00 12/09/18 05:59 11/21/18 05:42 Insulin Aspart (NovoLOG) Q6HR SUBQ 11/09/18 06:00 12/09/18 05:59 11/21/18 13:05 Insulin Detemir (Levemir) 4 units EVERY 12 HOURS SUBQ 11/16/18 21:00 12/09/18 08:59 11/21/18 08:31 Labetalol HCl (Normodyne) 200 mg Q8HR GT 11/09/18 06:00 12/09/18 05:59 11/21/18 05:42 Levetiracetam (Keppra) 1,500 mg Q12HR GT 11/09/18 09:00 12/09/18 08:59 11/21/18 08:27 Magnesium Hydroxide (Mom) 30 ml DAILY PRN GT Constipation 11/09/18 05:00 12/09/18 04:59 Magnesium Oxide (Mag-Ox 400mg) 400 mg EVERY 8 HOURS GT 11/09/18 14:00 12/09/18 08:59 11/21/18 05:42 Meropenem 1 gm/ Sodium Chloride 100 ml @ 200 mls/hr Q8HR IVPB 11/20/18 14:00 11/25/18 23:59 11/21/18 05:42 Ondansetron HCl (Zofran) 4 mg Q6H PRN GT Nausea & Vomiting 11/09/18 05:00 12/09/18 04:59 Phenobarbital (PHENobarbital) 60 mg BID GT 11/09/18 09:00 12/09/18 08:59 11/21/18 08:28 Phenytoin (Dilantin) 100 mg Q8HR GT 11/09/18 06:00 12/09/18 05:59 11/21/18 05:43 Polyethylene Glycol (Miralax) 17 gm DAILYPRN PRN GT Constipation 11/14/18 10:30 12/12/18 10:29 Sennosides (Senokot) 8.6 mg EVERY 12 HOURS GT 11/09/18 21:00 12/09/18 08:59 11/20/18 20:26 Valproic Acid (Depakene) 500 mg EVERY 8 HOURS GT 11/09/18 06:00 12/09/18 05:59 11/21/18 05:43 Vancomycin HCl (Vanco rx to dose) 1 ea DAILY PRN MISC Per rx protocol 11/20/18 13:30 12/20/18 13:29 Vancomycin HCl 750 mg/Sodium Chloride 275 ml @ 183.333 mls/hr Q12HR@0800,2000 IVPB 11/20/18 20:00 11/25/18 19:59 11/21/18 08:26 Dasha Crews MD Nov 21, 2018 13:42
--- NOTE | 2018-11-21 15:00 | NUR ---
NURSE NOTES: Called Dr. Walters and informed her regarding dtr. concerned about scattered rash on her bilateral arm and thigh. Dr. Walters personally check the rash.
--- NOTE | 2018-11-21 15:45 | NUR ---
NURSE NOTES: Dtr. change her mind and told RN to hold of the CT abdomen for tomorrow.
--- NOTE | 2018-11-21 16:01 | NUR ---
CASE MANAGEMENT: REVIEW 11/21/2018 SI:SEPSIS. T 100.4 HR 94 RR 21 B/P 100/52 SATS 100% ON MECH VENT FIO2 30 WBC 12.5 CR 0.3 CA 8.2 PHOS 2.2 AST 137 ALT 117 ALP 240 IS: HYDRALAZINE GT Q8H DEPAKENE GT Q8H LASIX IV GT Q12H PEPCID GT Q12H VENOFER IV QHS KEPPRA GT Q12H VANCO IV Q24H ZOSYN IV Q8H SDU DCP: PATIENT TO BE DISCHARGED TO SNF ONCE MEDICALLY CLEARED PLAN OF CARE: DC PLANNING
--- NOTE | 2018-11-21 16:21 | NUR ---
NURSE NOTES: Received a call from Dr. Walters and told me that she spoke to Dr. Goodwin and they decided to d/c current IVPB ATB and change to new IVPB ATB. Will cont. to monitor.
[2018-11-21 17:05] VITALS: BP 135/75
--- NOTE | 2018-11-21 18:23 | Surgery Progress Note ---
Surgery Progress Note Subjective Additional Comments n oacute events exam stable labs noted micro noted Objective Last 24 Hour Vital Signs Date Time Temp Pulse Resp B/P (MAP) Pulse Ox O2 Delivery O2 Flow Rate FiO2 11/21/18 17:54 97.8 11/21/18 17:21 101 22 30 11/21/18 17:05 102.9 97 23 135/75 (95) 100 11/21/18 16:00 30 11/21/18 16:00 Mechanical Ventilator 11/21/18 15:29 100 20 30 11/21/18 15:29 103 11/21/18 14:41 100/52 11/21/18 14:40 100 100/52 11/21/18 13:10 100 30 30 11/21/18 12:00 30 11/21/18 12:00 100.4 94 21 100/52 (68) 100 11/21/18 12:00 Mechanical Ventilator 11/21/18 11:39 88 11/21/18 11:03 99 22 30 11/21/18 09:09 96 20 30 11/21/18 08:28 95 130/70 11/21/18 08:00 102.4 95 20 130/70 (90) 100 11/21/18 08:00 30 11/21/18 08:00 Mechanical Ventilator 11/21/18 07:40 93 11/21/18 07:24 94 21 30 11/21/18 05:42 103 136/70 11/21/18 05:42 136/70 11/21/18 05:30 100 23 30 11/21/18 04:00 Mechanical Ventilator 11/21/18 04:00 99.5 106 20 150/82 (104) 100 11/21/18 04:00 30 11/21/18 03:26 103 11/21/18 03:23 103 22 30 11/21/18 00:42 96 24 30 11/21/18 00:00 98.8 85 20 123/70 (87) 98 11/21/18 00:00 Mechanical Ventilator 11/20/18 23:34 83 21 30 11/20/18 23:28 84 11/20/18 21:43 140/74 11/20/18 21:42 91 140/74 11/20/18 21:33 91 20 30 11/20/18 20:00 101.6 96 20 140/74 (96) 100 11/20/18 20:00 30 11/20/18 20:00 Mechanical Ventilator 11/20/18 19:32 95 24 100 Mechanical Ventilator 30 11/20/18 19:32 95 24 30 11/20/18 19:22 98 I&O Intake and Output 11/20/18 11/21/18 19:00 07:00 Intake Total 850 ml 1095.0 ml Output Total 900 ml 950 ml Balance -50 ml 145.0 ml Intake Free Water 200 ml 100 ml IV Total 475.0 ml Tube Feeding 650 ml 520 ml Output Urine Total 900 ml 950 ml # Bowel Movements 2 Dressing: saturated Wound: other Drains: other Cardiovascular: RSR Respiratory: decreased breath sounds Abdomen: soft, present bowel sounds, other, non-distended Extremities: no cyanosis, other Laboratory Tests Test 11/21/18 04:00 White Blood Count 12.5 K/UL (4.8-10.8) H Red Blood Count 3.38 M/UL (4.20-5.40) L Hemoglobin 8.7 G/DL (12.0-16.0) L Hematocrit 26.5 % (37.0-47.0) L Mean Corpuscular Volume 78 FL (80-99) L Mean Corpuscular Hemoglobin 25.7 PG (27.0-31.0) L Mean Corpuscular Hemoglobin Concent 32.8 G/DL (32.0-36.0) Red Cell Distribution Width 23.0 % (11.6-14.8) H Platelet Count 484 K/UL (150-450) H Mean Platelet Volume 5.5 FL (6.5-10.1) L Neutrophils (%) (Auto) 84.2 % (45.0-75.0) H Lymphocytes (%) (Auto) 10.1 % (20.0-45.0) L Monocytes (%) (Auto) 4.5 % (1.0-10.0) Eosinophils (%) (Auto) 0.7 % (0.0-3.0) Basophils (%) (Auto) 0.5 % (0.0-2.0) Sodium Level 138 MMOL/L (136-145) Potassium Level 3.7 MMOL/L (3.5-5.1) Chloride Level 101 MMOL/L (98-107) Carbon Dioxide Level 30 MMOL/L (21-32) Anion Gap 7 mmol/L (5-15) Blood Urea Nitrogen 13 mg/dL (7-18) Creatinine 0.3 MG/DL (0.55-1.30) L Estimat Glomerular Filtration Rate mL/min (>60) Glucose Level 90 MG/DL (74-106) Calcium Level 8.2 MG/DL (8.5-10.1) L Phosphorus Level 2.2 MG/DL (2.5-4.9) L Magnesium Level 2.0 MG/DL (1.8-2.4) Total Bilirubin 0.2 MG/DL (0.2-1.0) Aspartate Amino Transf (AST/SGOT) 137 U/L (15-37) H Alanine Aminotransferase (ALT/SGPT) 117 U/L (12-78) H Alkaline Phosphatase 240 U/L (46-116) H Total Protein 6.1 G/DL (6.4-8.2) L Albumin 1.2 G/DL (3.4-5.0) L Globulin 4.9 g/dL Albumin/Globulin Ratio 0.2 (1.0-2.7) L Plan Problems: (1) Fever (2) Tongue abnormality Assessment & Plan: patients jaw clenched closed and tongue has been stuck for some time. tongue split from middle teeth and now in two. edema and unable to reduce keep tongue moist. apply lube jelly prn dryness. will monitor do not recommend surgical intervention for this current medical condition (3) Tracheostomy dependence (4) Sepsis Assessment & Plan: gb no stones 6mm polyp no acute surgical intervention planned trend labs DAILY ESTIMATED NEEDS: Needs based on Critical care, sepsis, wound 60kg adj 22-30 kcals/kg 5538-4332 total kcals 1.25-2 g protein/kg 75-120 g total protein Fluid per MD, on lasix NUTRITION DIAGNOSIS: * Swallowing difficulty r/t respiratory status as evidenced by pt is vent dep via trach and PEG dep. * Increased kcal and pro needs r/t wound healing and sepsis as evidenced by pt w/ sacral and R heel wounds, febrile (Tmax 101.5). CURRENT TF: Jevity 1.2 @50 ml/hr x16 hrs ENTERAL NUTRITION RECOMMENDATIONS: Glucerna 1.2 @65ml/hr x18 hrs + Prosource x1 daily to provide 1170ml, 1404 kcal, 70g pro + 11g pro, 942 free H2O - REC TF CHANGE AND INCREASE TO BETTER MEET EST NEEDS - TF TO BE HELD FOR ONE HR BEFORE AND AFTER DILANTIN MEDS - START @20ML/HR, ADVANCE TOLERATED 15ML/HR Q4-6 HRS TO GOAL - FLUSH PER , HOB OVRE 30 DEGREES ADDITIONAL RECOMMENDATIONS: 1) CALIBRATED BED SCALE W/ ADDED P200 MATTRESS + PUMP 2) ON LASIX, MONITOR LYTES AND HYDRATION STATUS DAILY 3) TF TO RUN A MAX OF 18 HRS/DAY W/ DILANTIN TID PER PHARMACY 4) REC TF CHANGE TO CARB CONTROL FORMULA 5) WOUND CARE: ADD CHAYITO BID + VIT C 250MG DAILY (5) Fever (6) Decubitus skin ulcer Assessment & Plan: Pt presented on admission with full thickness sacral pressure injury.Base of wound is 20% necrotic , 80% slough. borders are macerated . Mild odor noted. (L)8.4cm x (W) 6.5cm. Periwound skin tone is darker without erythema,induration or elevation in skin temp. Both heels are non -blanchable and both are fluctuant when palpated. Tx.Plan: Clean wound with saline. Apply Therahoney. Aply Moisture Barrier paste periwound. Cover with Optifoam drsg. Change every 3 days and prn. Apply Cavilon Skin BArrier to both heels. Cover each heel with Optifoam drsg. Change every 7 days and prn. APM/DEIRDRE mattress overlay. Reposition at least every 2hours or as tolerated. Off-load heels with pillow. will follow with recs thank you Preet Hylton Nov 21, 2018 18:23
--- NOTE | 2018-11-21 19:38 | NUR ---
HAND-OFF: Report given to Collins DESHPANDE. Pt. remain stable. Endorsed paper work to be given to dtr. Wilcox.
--- NOTE | 2018-11-21 19:39 | NUR ---
NURSE NOTES: Received pt from Mirella DESHPANDE. Pt is in bet with no acute distress. VSS, SR, trach to vent AC 14, VT 375, Fio2 30%, PEEP 5. Skin issues noted, PICC rt. upper arm intact and patent. Bed at its lowest position, call light in reach and x 3 bed rails are up.
[2018-11-21 20:00] VITALS: BP 119/67
[2018-11-21] MEDS: Polymyxin B Sulfate 500,000 UNITS in D5W 500ml 550 ML IV SCH (21:32)
[2018-11-21] MEDS: Dyna-Hex 2% Top Sol 2oz TOPIC SCH (22:38)
[2018-11-22] VITALS: BP 150/70
[2018-11-22] MEDS: NovoLOG Insulin Flexpen SUBQ SCH ×4 (00:20→17:46)
[2018-11-22] MEDS: Acetaminophen 650mg/20.3ml GT PRN ×2 (00:45→14:48)
[2018-11-22 04:00] VITALS: BP 145/77
[2018-11-22] MEDS: Valproic Acid 250mg/5ml Liquid GT SCH ×3 (05:36→22:14)
[2018-11-22] MEDS: HydrALAZINE 10mg Tab GT SCH ×3 (05:39→22:14)
[2018-11-22] MEDS: Phenytoin Susp 100mg/4ml GT SCH ×3 (05:40→22:14)
[2018-11-22] MEDS: Magnesium Oxide 400mg tab GT SCH ×3 (05:40→22:14)
[2018-11-22] MEDS: Labetalol 200mg tab GT SCH ×3 (05:40→22:16)
[2018-11-22] MEDS: Tums 500mg GT SCH ×3 (05:40→22:14)
--- NOTE | 2018-11-22 07:05 | NUR ---
HAND-OFF: Report given to Radha DESHPANDE.
--- NOTE | 2018-11-22 07:06 | NUR ---
NURSE NOTES: Received report from CHARLEE Guadalupe. Observed patient in bed; nonverbal, obtunded. On trach-vent with settings AC 14, TV 375, FiO2 30%, PEEP 5; no acute respiratory distress noted. GT intact and patent with feeding infusing at prescribed rate. Right upper arm PICC line intact and patent. Ospina catheter intact and draining well to gravity. Safety precautions in place, bed locked, alarmed and in lowest position, padded side rails up x3, and call light within reach. Will continue with plan of care.
--- NOTE | 2018-11-22 07:40 | NUR ---
RESPIRATORY NOTE: received pt on current vent orders. pt is vent dependent with trach size shiley [address] pt has redness to the right of her stoma and bandage in place. RN will be notified. no resp distress noted at this time. back up trach and ambu bag are at bedside. will cont to monitor.
--- NOTE | 2018-11-22 07:43 | General Progress Note ---
Assessment/Plan Status: unchanged, fever Assessment/Plan: (1) Abnormal LFTs ICD Codes: R94.5 - Abnormal results of liver function studies SNOMED: 400687873 (2) Decubitus skin ulcer ICD Codes: L89.90 - Pressure ulcer of unspecified site, unspecified stage SNOMED: 338453912 (3) Protein calorie malnutrition ICD Codes: E46 - Unspecified protein-calorie malnutrition SNOMED: 703040503 (4) Colon adenocarcinoma ICD Codes: C18.9 - Malignant neoplasm of colon, unspecified SNOMED: 942706189 (5) Sepsis ICD Codes: A41.9 - Sepsis, unspecified organism SNOMED: 58489524 (6) Tracheostomy dependence ICD Codes: Z93.0 - Tracheostomy status SNOMED: 907413766 (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 Humphries. Assessment/Plan Assessment - Iron deficiency anemia - abnormal LFT - ? meds, passive congestion - dysphagia, s/p GT - Resp, failure, s/p Trach - hepatitis panel negative Recommendations - Continue TF - Monitor LFT - IV Iron - follow CBC - Conservative approach given poor health Subjective ROS Limited/Unobtainable: No Allergies: Coded Allergies: Crayfish (Unverified Allergy, Unknown, 11/11/18) Uncoded Allergies: Crawfish (Allergy, Unknown, 11/09/18) Subjective fever last night had BM Objective Last 24 Hour Vital Signs Date Time Temp Pulse Resp B/P (MAP) Pulse Ox O2 Delivery O2 Flow Rate FiO2 11/22/18 07:38 91 20 30 11/22/18 05:40 96 149/98 11/22/18 05:39 149/98 11/22/18 05:22 91 22 30 11/22/18 04:00 Mechanical Ventilator 11/22/18 04:00 30 11/22/18 04:00 100.0 89 23 145/77 (99) 100 11/22/18 03:32 86 11/22/18 03:14 85 20 30 11/22/18 01:27 83 20 30 11/22/18 01:15 99.0 11/22/18 00:00 101.1 94 26 150/70 (96) 100 11/22/18 00:00 Mechanical Ventilator 11/22/18 00:00 30 11/21/18 23:34 97 11/21/18 23:11 98 25 30 11/21/18 22:40 97 119/67 11/21/18 22:40 119/67 11/21/18 21:05 97 20 30 11/21/18 20:00 101.5 89 22 119/67 (84) 96 11/21/18 20:00 Mechanical Ventilator 11/21/18 19:30 87 11/21/18 19:28 93 21 30 11/21/18 17:21 101 22 30 11/21/18 17:05 102.9 97 23 135/75 (95) 100 11/21/18 16:00 30 11/21/18 16:00 Mechanical Ventilator 11/21/18 15:29 100 20 30 11/21/18 15:29 103 11/21/18 14:41 100/52 11/21/18 14:40 100 100/52 11/21/18 13:10 100 30 30 11/21/18 12:00 30 11/21/18 12:00 100.4 94 21 100/52 (68) 100 11/21/18 12:00 Mechanical Ventilator 11/21/18 11:39 88 11/21/18 11:03 99 22 30 11/21/18 09:09 96 20 30 11/21/18 08:28 95 130/70 11/21/18 08:00 102.4 95 20 130/70 (90) 100 11/21/18 08:00 30 11/21/18 08:00 Mechanical Ventilator Intake and Output 11/21/18 11/22/18 18:59 06:59 Intake Total 835 ml 1560 ml Output Total 1400 ml Balance -565 ml 1560 ml Intake Free Water 250 ml 190 ml IV Total 850 ml Tube Feeding 585 ml 520 ml Output Urine Total 1400 ml # Bowel Movements 2 1 Height (Feet): 5 Height (Inches): 8.00 Weight (Pounds): 210 General Appearance: no apparent distress EENT: normal ENT inspection Neck: supple Cardiovascular: normal rate Respiratory/Chest: decreased breath sounds Abdomen: normal bowel sounds, non tender, soft Extremities: non-tender Casper Humphries MD Nov 22, 2018 07:43
[2018-11-22 08:00] VITALS: BP 134/49
[2018-11-22] MEDS: Sennosides 8.6mg tab GT SCH ×2 (08:18→20:30)
[2018-11-22] MEDS: PHENobarbital Elixir 30mg/7.5ml GT SCH ×2 (08:18→17:37)
[2018-11-22] MEDS: Furosemide 40mg tab GT SCH ×2 (08:18→20:33)
[2018-11-22] MEDS: levETIRAcetam 500mg/5ml Liquid GT SCH ×2 (08:19→20:30)
[2018-11-22] MEDS: Enoxaparin 40mg Inj SUBQ SCH (08:20)
[2018-11-22] MEDS: Levemir Flexpen SUBQ SCH ×2 (08:21→20:35)
--- NOTE | 2018-11-22 08:38 | Cardiology Progress Note ---
Assessment/Plan Status: stable Assessment/Plan Assessment: Elevated troponin Hypertension Hepatitis HIV UTI Fever PLAN: -Empiric ABX, follow culture -Trend troponin, likely demand ischemia -Replete electrolytes -Manage blood pressures -Trach care -Poor prognosis -Continue antibiotics -Supportive care -Dispo planning Subjective Cardiovascular: Reports: no symptoms Respiratory: Reports: no symptoms Gastrointestinal/Abdominal: Reports: no symptoms Genitourinary: Reports: no symptoms Subjective NO acute events, nursing notes reviewed, remains intubated, non responsive, tachycardic, low grade fevers Objective Last 24 Hour Vital Signs Date Time Temp Pulse Resp B/P (MAP) Pulse Ox O2 Delivery O2 Flow Rate FiO2 11/22/18 08:18 92 132/49 11/22/18 07:38 91 20 30 11/22/18 05:40 96 149/98 11/22/18 05:39 149/98 11/22/18 05:22 91 22 30 11/22/18 04:00 Mechanical Ventilator 11/22/18 04:00 30 11/22/18 04:00 100.0 89 23 145/77 (99) 100 11/22/18 03:32 86 11/22/18 03:14 85 20 30 11/22/18 01:27 83 20 30 11/22/18 01:15 99.0 11/22/18 00:00 101.1 94 26 150/70 (96) 100 11/22/18 00:00 Mechanical Ventilator 11/22/18 00:00 30 11/21/18 23:34 97 11/21/18 23:11 98 25 30 11/21/18 22:40 97 119/67 11/21/18 22:40 119/67 11/21/18 21:05 97 20 30 11/21/18 20:00 101.5 89 22 119/67 (84) 96 11/21/18 20:00 Mechanical Ventilator 11/21/18 19:30 87 11/21/18 19:28 93 21 30 11/21/18 17:21 101 22 30 11/21/18 17:05 102.9 97 23 135/75 (95) 100 11/21/18 16:00 30 11/21/18 16:00 Mechanical Ventilator 11/21/18 15:29 100 20 30 11/21/18 15:29 103 11/21/18 14:41 100/52 11/21/18 14:40 100 100/52 11/21/18 13:10 100 30 30 11/21/18 12:00 30 11/21/18 12:00 100.4 94 21 100/52 (68) 100 11/21/18 12:00 Mechanical Ventilator 11/21/18 11:39 88 11/21/18 11:03 99 22 30 11/21/18 09:09 96 20 30 General Appearance: no apparent distress, lethargic, on vent EENT: PERRL/EOMI, normal ENT inspection, TMs normal, pharynx normal Neck: non-tender, normal alignment, supple, normal inspection, no JVD Rhythm: NSR Cardiovascular: normal peripheral pulses, regular rhythm, tachycardia Respiratory/Chest: chest wall non-tender, lungs clear, normal breath sounds Abdomen: normal bowel sounds, non tender, soft, no organomegaly, no mass Extremities: normal range of motion, non-tender, normal inspection, no calf tenderness, no swelling Neurologic: loan reviewer II-XII grossly normal, no motor/sensory deficits Intake and Output 11/21/18 11/22/18 18:59 06:59 Intake Total 835 ml 1560 ml Output Total 1400 ml Balance -565 ml 1560 ml Intake Free Water 250 ml 190 ml IV Total 850 ml Tube Feeding 585 ml 520 ml Output Urine Total 1400 ml # Bowel Movements 2 1 Eloy Bryson MD Nov 22, 2018 08:38
[2018-11-22] MEDS: Polymyxin B Sulfate 500,000 UNITS in D5W 500ml 550 ML IV SCH ×2 (08:46→20:34)
[2018-11-22 08:55] LABS: BASOPHILS % (AUTO) 0.8 % (0.0-2.0); EOSINOPHILS % (AUTO) 1.4 % (0.0-3.0); HEMATOCRIT 24.3 % (37.0-47.0); LYMPHOCYTES % (AUTO) 13.3 % (20.0-45.0); MEAN CORPUSCULAR VOLUME 78 FL (80-99); MONOCYTES % (AUTO) 6.2 % (1.0-10.0); NEUTROPHILS % (AUTO) 78.3 % (45.0-75.0); PLATELET COUNT 404 K/UL (150-450); RED BLOOD COUNT 3.12 M/UL (4.20-5.40)
--- NOTE | 2018-11-22 09:03 | NUR ---
CASE MANAGEMENT: REVIEW 11/22/2018 SI:SEPSIS. T 100 HR 89 RR 23 B/P 145/77 SATS 100% ON MECH VENT FIO2 30 CMP PENDING IS: HYDRALAZINE GT Q8H DEPAKENE GT Q8H LASIX IV GT Q12H PEPCID GT Q12H VENOFER IV QHS KEPPRA GT Q12H VANCO IV Q24H ZOSYN IV Q8H SDU DCP: PATIENT TO BE DISCHARGED TO SNF ONCE MEDICALLY CLEARED PLAN OF CARE: DC PLANNING
[2018-11-22 09:20] LABS: ALANINE AMINOTRANSFERASE 115 U/L (12-78); ALBUMIN/GLOBULIN RATIO 0.2 (1.0-2.7); ALKALINE PHOSPHATASE 250 U/L (46-116); ANION GAP 7 mmol/L (5-15); ASPARTATE AMINO TRANSFERASE 153 U/L (15-37); BILIRUBIN,TOTAL 0.2 MG/DL (0.2-1.0); BLOOD UREA NITROGEN 16 mg/dL (7-18); CALCIUM 7.7 MG/DL (8.5-10.1); CARBON DIOXIDE 30 MMOL/L (21-32); CHLORIDE 100 MMOL/L (98-107); CREATININE 0.3 MG/DL (0.55-1.30); POTASSIUM 3.2 MMOL/L (3.5-5.1); SODIUM 137 MMOL/L (136-145)
--- NOTE | 2018-11-22 11:00 | NUR ---
NURSE NOTES: Statement bill from Shoaib Caruso given to daughter Treasure who is present at bedside at this moment. Daughter accepted and acknowledged.
--- NOTE | 2018-11-22 11:11 | Pulmonology Progress Note ---
Assessment/Plan Problems: (1) Ventilator dependence (2) Tracheostomy dependence (3) UTI (urinary tract infection) (4) Fever (5) Anoxic brain damage (6) Tongue abnormality (7) Seizure disorder (8) Colon adenocarcinoma (9) HTN (hypertension) (10) Sepsis (11) Diabetes (12) Abnormal LFTs (13) Protein calorie malnutrition (14) Gastrostomy in place (15) penitentiary resident (16) Decubitus skin ulcer Assessment/Plan Continue ventilatory support/settings reviewed Titrate down FiO2 to keep SaO2 > 90% Optimize pulmonary hygiene/mobilize as tolerated RTC and PRN HHN's Abx per ID, F/U Cx's F/U CT AP F/U cards recs Monitor volumes and renal function DVT Px: LMWH Needs to be seen by OMFS or DDS, needs a tooth extraction ---> if unable consider ENT evaluation FC, continue to discuss GOC Wound care Subjective Allergies: Coded Allergies: Crayfish (Unverified Allergy, Unknown, 11/11/18) Uncoded Allergies: Crawfish (Allergy, Unknown, 11/09/18) Subjective Tm 102.9 VSS stable on vent no sig secretions no distress Objective Last 24 Hour Vital Signs Date Time Temp Pulse Resp B/P (MAP) Pulse Ox O2 Delivery O2 Flow Rate FiO2 11/22/18 08:49 91 22 30 11/22/18 08:18 92 132/49 11/22/18 08:00 Mechanical Ventilator 11/22/18 08:00 100.6 92 23 134/49 (77) 100 11/22/18 08:00 30 11/22/18 07:38 91 20 30 11/22/18 07:30 92 11/22/18 05:40 96 149/98 11/22/18 05:39 149/98 11/22/18 05:22 91 22 30 11/22/18 04:00 Mechanical Ventilator 11/22/18 04:00 30 11/22/18 04:00 100.0 89 23 145/77 (99) 100 11/22/18 03:32 86 11/22/18 03:14 85 20 30 11/22/18 01:27 83 20 30 11/22/18 01:15 99.0 11/22/18 00:00 101.1 94 26 150/70 (96) 100 11/22/18 00:00 Mechanical Ventilator 11/22/18 00:00 30 11/21/18 23:34 97 11/21/18 23:11 98 25 30 11/21/18 22:40 97 119/67 11/21/18 22:40 119/67 11/21/18 21:05 97 20 30 11/21/18 20:00 101.5 89 22 119/67 (84) 96 11/21/18 20:00 Mechanical Ventilator 11/21/18 19:30 87 11/21/18 19:28 93 21 30 11/21/18 17:21 101 22 30 11/21/18 17:05 102.9 97 23 135/75 (95) 100 11/21/18 16:00 30 11/21/18 16:00 Mechanical Ventilator 11/21/18 15:29 100 20 30 11/21/18 15:29 103 11/21/18 14:41 100/52 11/21/18 14:40 100 100/52 11/21/18 13:10 100 30 30 11/21/18 12:00 30 11/21/18 12:00 100.4 94 21 100/52 (68) 100 11/21/18 12:00 Mechanical Ventilator 11/21/18 11:39 88 Intake and Output 11/21/18 11/22/18 19:00 07:00 Intake Total 935 ml 1460 ml Output Total 1400 ml Balance -465 ml 1460 ml Intake Free Water 250 ml 190 ml IV Total 100 ml 750 ml Tube Feeding 585 ml 520 ml Output Urine Total 1400 ml # Bowel Movements 2 1 General Appearance: no acute distress, cachetic, other - non verbal HEENT: normocephalic, atraumatic, anicteric, mucous membranes moist, status post trach, other - macroglassia and tongue edema Respiratory/Chest: chest wall non-tender, lungs clear, normal breath sounds, no respiratory distress, no accessory muscle use Cardiovascular: normal peripheral pulses, normal rate, regular rhythm Abdomen: normal bowel sounds, soft, non tender, no organomegaly, non distended , no mass, other - GT Extremities: no cyanosis, no clubbing, no edema Laboratory Tests 11/22/18 08:30: White Blood Count 8.0, Red Blood Count 3.12L, Hemoglobin 8.0L, Hematocrit 24.3L , Mean Corpuscular Volume 78L, Mean Corpuscular Hemoglobin 25.6L, Mean Corpuscular Hemoglobin Concent 32.9, Red Cell Distribution Width 22.0H, Platelet Count 404, Mean Platelet Volume 5.2L, Neutrophils (%) (Auto) 78.3H, Lymphocytes (%) (Auto) 13.3L, Monocytes (%) (Auto) 6.2, Eosinophils (%) (Auto) 1.4, Basophils (%) (Auto) 0.8, Sodium Level 137, Potassium Level 3.2L, Chloride Level 100, Carbon Dioxide Level 30, Anion Gap 7, Blood Urea Nitrogen 16, Creatinine 0.3L, Estimat Glomerular Filtration Rate , Glucose Level 123H, Calcium Level 7.7L, Total Bilirubin 0.2, Aspartate Amino Transf (AST/SGOT) 153H , Alanine Aminotransferase (ALT/SGPT) 115H, Alkaline Phosphatase 250H, Total Protein 5.2L, Albumin 1.0L, Globulin 4.2, Albumin/Globulin Ratio 0.2L, Vancomycin Level Trough 10.1 Current Medications Medications (Trade) Dose Ordered Sig/Lupe Route PRN Reason Start Time Stop Time Status Last Admin Dose Admin Acetaminophen (Tylenol) 650 mg Q4H PRN GT Mild Pain/Temp > 100.5 11/09/18 05:00 12/09/18 04:59 11/22/18 00:45 Albuterol/ Ipratropium (Albuterol/ Ipratropium) 3 ml Q4H PRN HHN Shortness of Breath 11/17/18 12:30 11/22/18 12:29 Amlodipine Besylate (Norvasc) 10 mg DAILY GT 11/09/18 09:00 12/09/18 08:59 11/22/18 08:18 Bisacodyl (Dulcolax) 10 mg DAILY PRN RECTAL Constipation 11/09/18 05:00 12/09/18 04:59 Calcium Carbonate (Tums) 500 mg EVERY 8 HOURS GT 11/09/18 14:00 12/09/18 08:59 11/22/18 05:40 Chlorhexidine Gluconate (Corazon-Hex 2%) 1 applic DAILY@1999 TOPIC 11/12/18 20:00 12/12/18 19:59 11/21/18 22:38 Dextrose (Dextrose 50%) 25 ml Q30M PRN IV Hypoglycemia 11/09/18 04:45 12/09/18 04:44 Dextrose (Dextrose 50%) 50 ml Q30M PRN IV Hypoglycemia 11/09/18 04:45 12/09/18 04:44 11/09/18 09:09 Enoxaparin Sodium (Lovenox) 40 mg DAILY SUBQ 11/09/18 09:00 12/09/18 08:59 11/22/18 08:20 Famotidine (Pepcid) 20 mg EVERY 12 HOURS GT 11/09/18 21:00 12/09/18 08:59 11/22/18 08:18 Furosemide (Lasix) 40 mg EVERY 12 HOURS GT 11/09/18 09:00 12/09/18 08:59 11/22/18 08:18 Hydralazine HCl (Apresoline) 5 mg EVERY 8 HOURS GT 11/09/18 06:00 12/09/18 05:59 11/22/18 05:39 Insulin Aspart (NovoLOG) Q6HR SUBQ 11/09/18 06:00 12/09/18 05:59 11/22/18 00:20 Insulin Detemir (Levemir) 4 units EVERY 12 HOURS SUBQ 11/16/18 21:00 12/09/18 08:59 11/21/18 21:46 Labetalol HCl (Normodyne) 200 mg Q8HR GT 11/09/18 06:00 12/09/18 05:59 11/22/18 05:40 Levetiracetam (Keppra) 1,500 mg Q12HR GT 11/09/18 09:00 12/09/18 08:59 11/22/18 08:19 Magnesium Hydroxide (Mom) 30 ml DAILY PRN GT Constipation 11/09/18 05:00 12/09/18 04:59 Magnesium Oxide (Mag-Ox 400mg) 400 mg EVERY 8 HOURS GT 11/09/18 14:00 12/09/18 08:59 11/22/18 05:40 Metronidazole 100 ml @ 100 mls/hr Q8HR IVPB 11/21/18 22:00 11/28/18 21:59 11/22/18 05:41 Ondansetron HCl (Zofran) 4 mg Q6H PRN GT Nausea & Vomiting 11/09/18 05:00 12/09/18 04:59 Phenobarbital (PHENobarbital) 60 mg BID GT 11/09/18 09:00 12/09/18 08:59 11/22/18 08:18 Phenytoin (Dilantin) 100 mg Q8HR GT 11/09/18 06:00 12/09/18 05:59 11/22/18 05:40 Polyethylene Glycol (Miralax) 17 gm DAILYPRN PRN GT Constipation 11/14/18 10:30 12/12/18 10:29 Polymyxin B Sulfate 771838 units/Dextrose 550 ml @ 550 mls/hr EVERY 12 HOURS IV 11/21/18 21:00 11/28/18 20:59 11/22/18 08:46 Sennosides (Senokot) 8.6 mg EVERY 12 HOURS GT 11/09/18 21:00 12/09/18 08:59 11/22/18 08:18 Valproic Acid (Depakene) 500 mg EVERY 8 HOURS GT 11/09/18 06:00 12/09/18 05:59 11/22/18 05:36 Balbir Dejesus MD Nov 22, 2018 11:11
[2018-11-22 12:00] VITALS: BP 152/63
--- NOTE | 2018-11-22 12:00 | NUR ---
NURSE NOTES: Contrast given via GT. Informed CT, will bring patient down in 1.5hr.
--- NOTE | 2018-11-22 12:03 | General Progress Note ---
Assessment/Plan Problem List: (1) MRSA (methicillin resistant staphylococcus aureus) pneumonia ICD Codes: J15.212 - Pneumonia due to Methicillin resistant Staphylococcus aureus SNOMED: 593100173234572 (2) Fever ICD Codes: R50.9 - Fever, unspecified SNOMED: 299698597 (3) UTI (urinary tract infection) ICD Codes: N39.0 - Urinary tract infection, site not specified SNOMED: 16996318 (4) Tracheostomy dependence ICD Codes: Z93.0 - Tracheostomy status SNOMED: 913819146 (5) Ventilator dependence ICD Codes: Z99.11 - Dependence on respirator [ventilator] status SNOMED: 682496819 (6) Protein calorie malnutrition ICD Codes: E46 - Unspecified protein-calorie malnutrition SNOMED: 171582844 (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 SNOMED: 55633972 (8) Drug rash ICD Codes: L27.0 - Generalized skin eruption due to drugs and medicaments taken internally SNOMED: 04673158 (9) Gram-negative pneumonia ICD Codes: J15.6 - Pneumonia due to other Gram-negative bacteria SNOMED: 221976139 (10) Line sepsis ICD Codes: T85.79XA - Infection and inflammatory reaction due to other internal prosthetic devices, implants and grafts, initial encounter; A41.9 - Sepsis, unspecified organism SNOMED: 76493026, 434005576 (11) Bacteremia ICD Codes: R78.81 - Bacteremia SNOMED: 5516057 Status: stable Assessment/Plan: 78-year-old female who is trach dependent who [facility] and found to have UTI and bacteremia. persistent fevers- now low grade #general labor bacteremia/line infection, e.coli line infection, sacral wound infection, gram neg pna, enterococcus uti, sepsis, persistent fevers, trach, vent fungemia risk, ? fungal uti vs colonization ID consult appreciate Rec Vancomycin and Meropenem started 11/16 ( Zosyn stopped) , fungal coverage with Diflucan added 11/18. Repeat sputum cultures with RAULTELLA PLANTICOA and PROVIDENCIA STUARTI resistant to most antibiotics Today developed morbilliform rash, has persistent fevers. Discussed with Dr. Goodwin and will DC meropenem, vancomycin and Diflucan. Started Polymyxin and flagyl 11/21. Discussed with daughter at bedside. follow up CT abdomen pelvis. Removed PICC and place new line 11/13/18 Echo to eval for vegetation negative Chest x-ray reviewed: Atelectasis, repeat cxr ordered for 11/[address] abdomen pelvis per ID # Transaminitis - trend lft's - GI consult, appreciate recs - ab us: reviewed - f/u hep panel #Elevated troponin secondary to sepsis versus ACS Cardiology consult, appreciate recs Medications per cardiology #Hypertension- improved Continue current medications, hydralazine as needed hypertension #Vent dependent Pulmonary consult, appreciate recs Vent management per pulmonary #Hypokalemia Replace, continue to monitor # Chronic tongue wound Supportive care On examination the patient has a sharp lower incisor present that is likely the culprit for the tongue laceration when she was intubated in the prior hospitalization at [facility] [place] OMFS consultation Dr. Benavides completed ( no note left ) and I spoke with him over the phone after the visit. He does not recommend any surgery. ONLY bite block MOLT if available to decompress the tongue and get the remainder teeth out of the tongue way. Keep moisture in the lips and tongue. # History of mood disorder Seen by psychiatry and on Depakote. Level was checked # Seizure history - Discussed with Dr. Eric who knew the patient from [facility] [place] and confirmed that she did have seizure activity and was on multiple AED regimen. - Will continue Depakote ( 28 level ) and (Phenytoin 4.3 ) - no active seizure activity at this time. Keep current dose. - Both Dr. Eric and Mariana not available to come to [facility] [place] consult and not acute need at this time. #Diabetes Mellitus - glucose noted in the 90-110's - Decreased Levemir to 4 units q 12 hours # Disposition - SNF when cleared by ID. Still febrile. Full code timing of this note may not reflect time of encounter. I spent 40 minutes on this encounter. Great than 50 percent spent of care planning. Subjective Date patient seen: Nov 22, 2018 ROS Limited/Unobtainable: Yes Allergies: Coded Allergies: Crayfish (Unverified Allergy, Unknown, 11/11/18) Uncoded Allergies: Crawfish (Allergy, Unknown, 11/09/18) Subjective obtunded on vent, fevers subsiding. now low grade Objective Last 24 Hour Vital Signs Date Time Temp Pulse Resp B/P (MAP) Pulse Ox O2 Delivery O2 Flow Rate FiO2 11/22/18 11:14 92 22 30 11/22/18 08:49 91 22 30 11/22/18 08:18 92 132/49 11/22/18 08:00 Mechanical Ventilator 11/22/18 08:00 100.6 92 23 134/49 (77) 100 11/22/18 08:00 30 11/22/18 07:38 91 20 30 11/22/18 07:30 92 11/22/18 05:40 96 149/98 11/22/18 05:39 149/98 11/22/18 05:22 91 22 30 11/22/18 04:00 Mechanical Ventilator 11/22/18 04:00 30 11/22/18 04:00 100.0 89 23 145/77 (99) 100 11/22/18 03:32 86 11/22/18 03:14 85 20 30 11/22/18 01:27 83 20 30 11/22/18 01:15 99.0 11/22/18 00:00 101.1 94 26 150/70 (96) 100 11/22/18 00:00 Mechanical Ventilator 11/22/18 00:00 30 11/21/18 23:34 97 11/21/18 23:11 98 25 30 11/21/18 22:40 97 119/67 11/21/18 22:40 119/67 11/21/18 21:05 97 20 30 11/21/18 20:00 101.5 89 22 119/67 (84) 96 11/21/18 20:00 Mechanical Ventilator 11/21/18 19:30 87 11/21/18 19:28 93 21 30 11/21/18 17:21 101 22 30 11/21/18 17:05 102.9 97 23 135/75 (95) 100 11/21/18 16:00 30 11/21/18 16:00 Mechanical Ventilator 11/21/18 15:29 100 20 30 11/21/18 15:29 103 11/21/18 14:41 100/52 11/21/18 14:40 100 100/52 11/21/18 13:10 100 30 30 11/21/18 12:00 30 11/21/18 12:00 100.4 94 21 100/52 (68) 100 9/3/19 12:00 Mechanical Ventilator Intake and Output 11/21/18 11/22/18 19:00 07:00 Intake Total 935 ml 1460 ml Output Total 1400 ml Balance -465 ml 1460 ml Intake Free Water 250 ml 190 ml IV Total 100 ml 750 ml Tube Feeding 585 ml 520 ml Output Urine Total 1400 ml # Bowel Movements 2 1 Laboratory Tests 11/22/18 08:30: White Blood Count 8.0, Red Blood Count 3.12L, Hemoglobin 8.0L, Hematocrit 24.3L , Mean Corpuscular Volume 78L, Mean Corpuscular Hemoglobin 25.6L, Mean Corpuscular Hemoglobin Concent 32.9, Red Cell Distribution Width 22.0H, Platelet Count 404, Mean Platelet Volume 5.2L, Neutrophils (%) (Auto) 78.3H, Lymphocytes (%) (Auto) 13.3L, Monocytes (%) (Auto) 6.2, Eosinophils (%) (Auto) 1.4, Basophils (%) (Auto) 0.8, Sodium Level 137, Potassium Level 3.2L, Chloride Level 100, Carbon Dioxide Level 30, Anion Gap 7, Blood Urea Nitrogen 16, Creatinine 0.3L, Estimat Glomerular Filtration Rate , Glucose Level 123H, Calcium Level 7.7L, Total Bilirubin 0.2, Aspartate Amino Transf (AST/SGOT) 153H , Alanine Aminotransferase (ALT/SGPT) 115H, Alkaline Phosphatase 250H, Total Protein 5.2L, Albumin 1.0L, Globulin 4.2, Albumin/Globulin Ratio 0.2L, Vancomycin Level Trough 10.1 Height (Feet): 5 Height (Inches): 8.00 Weight (Pounds): 210 Objective General Appearance: no apparent distress, other - unresponsive on vent EENT: PERRL/EOMI, other - enlarged tongue protruding, lower lip severely swollen Neck: supple Cardiovascular: normal rate, regular rhythm Respiratory/Chest: lungs clear Abdomen: soft Neurologic: unresponsive Skin: Morbilliform rash to bilateral upper extremities and thighs Neftaly Walters M.D. Nov 22, 2018 12:03
--- NOTE | 2018-11-22 14:10 | Surgery Progress Note ---
Surgery Progress Note Subjective Additional Comments no acute events leukocytosis resolved exam improved / stable labs noted Objective Last 24 Hour Vital Signs Date Time Temp Pulse Resp B/P (MAP) Pulse Ox O2 Delivery O2 Flow Rate FiO2 11/22/18 13:07 94 20 30 11/22/18 12:00 95 11/22/18 12:00 100.8 95 26 152/63 (92) 100 11/22/18 12:00 Mechanical Ventilator 11/22/18 12:00 30 11/22/18 11:14 92 22 30 11/22/18 08:49 91 22 30 11/22/18 08:18 92 132/49 11/22/18 08:00 Mechanical Ventilator 11/22/18 08:00 100.6 92 23 134/49 (77) 100 11/22/18 08:00 30 11/22/18 07:38 91 20 30 11/22/18 07:30 92 11/22/18 05:40 96 149/98 11/22/18 05:39 149/98 11/22/18 05:22 91 22 30 11/22/18 04:00 Mechanical Ventilator 11/22/18 04:00 30 11/22/18 04:00 100.0 89 23 145/77 (99) 100 11/22/18 03:32 86 11/22/18 03:14 85 20 30 11/22/18 01:27 83 20 30 11/22/18 01:15 99.0 11/22/18 00:00 101.1 94 26 150/70 (96) 100 11/22/18 00:00 Mechanical Ventilator 11/22/18 00:00 30 11/21/18 23:34 97 11/21/18 23:11 98 25 30 11/21/18 22:40 97 119/67 11/21/18 22:40 119/67 11/21/18 21:05 97 20 30 11/21/18 20:00 101.5 89 22 119/67 (84) 96 11/21/18 20:00 Mechanical Ventilator 11/21/18 19:30 87 11/21/18 19:28 93 21 30 11/21/18 17:21 101 22 30 11/21/18 17:05 102.9 97 23 135/75 (95) 100 11/21/18 16:00 30 11/21/18 16:00 Mechanical Ventilator 11/21/18 15:29 100 20 30 11/21/18 15:29 103 11/21/18 14:41 100/52 11/21/18 14:40 100 100/52 I&O Intake and Output 11/21/18 11/22/18 19:00 07:00 Intake Total 935 ml 1460 ml Output Total 1400 ml Balance -465 ml 1460 ml Intake Free Water 250 ml 190 ml IV Total 100 ml 750 ml Tube Feeding 585 ml 520 ml Output Urine Total 1400 ml # Bowel Movements 2 1 Dressing: saturated Wound: other Drains: other Cardiovascular: RSR Respiratory: clear, decreased breath sounds, other Abdomen: soft, present bowel sounds, non-distended Extremities: no cyanosis, other Laboratory Tests Test 11/22/18 08:30 White Blood Count 8.0 K/UL (4.8-10.8) Red Blood Count 3.12 M/UL (4.20-5.40) L Hemoglobin 8.0 G/DL (12.0-16.0) L Hematocrit 24.3 % (37.0-47.0) L Mean Corpuscular Volume 78 FL (80-99) L Mean Corpuscular Hemoglobin 25.6 PG (27.0-31.0) L Mean Corpuscular Hemoglobin Concent 32.9 G/DL (32.0-36.0) Red Cell Distribution Width 22.0 % (11.6-14.8) H Platelet Count 404 K/UL (150-450) Mean Platelet Volume 5.2 FL (6.5-10.1) L Neutrophils (%) (Auto) 78.3 % (45.0-75.0) H Lymphocytes (%) (Auto) 13.3 % (20.0-45.0) L Monocytes (%) (Auto) 6.2 % (1.0-10.0) Eosinophils (%) (Auto) 1.4 % (0.0-3.0) Basophils (%) (Auto) 0.8 % (0.0-2.0) Sodium Level 137 MMOL/L (136-145) Potassium Level 3.2 MMOL/L (3.5-5.1) L Chloride Level 100 MMOL/L (98-107) Carbon Dioxide Level 30 MMOL/L (21-32) Anion Gap 7 mmol/L (5-15) Blood Urea Nitrogen 16 mg/dL (7-18) Creatinine 0.3 MG/DL (0.55-1.30) L Estimat Glomerular Filtration Rate mL/min (>60) Glucose Level 123 MG/DL (74-106) H Calcium Level 7.7 MG/DL (8.5-10.1) L Total Bilirubin 0.2 MG/DL (0.2-1.0) Aspartate Amino Transf (AST/SGOT) 153 U/L (15-37) H Alanine Aminotransferase (ALT/SGPT) 115 U/L (12-78) H Alkaline Phosphatase 250 U/L (46-116) H Total Protein 5.2 G/DL (6.4-8.2) L Albumin 1.0 G/DL (3.4-5.0) L Globulin 4.2 g/dL Albumin/Globulin Ratio 0.2 (1.0-2.7) L Vancomycin Level Trough 10.1 ug/mL (5.0-12.0) Plan Problems: (1) Fever (2) Tongue abnormality Assessment & Plan: patients jaw clenched closed and tongue has been stuck for some time. tongue split from middle teeth and now in two. edema and unable to reduce keep tongue moist. apply lube jelly prn dryness. will monitor do not recommend surgical intervention for this current medical condition (3) Tracheostomy dependence (4) Sepsis Assessment & Plan: gb no stones 6mm polyp no acute surgical intervention planned trend labs improving labs improved DAILY ESTIMATED NEEDS: Needs based on Critical care, sepsis, wound 60kg adj 22-30 kcals/kg 5905-6113 total kcals 1.25-2 g protein/kg 75-120 g total protein Fluid per MD, on lasix NUTRITION DIAGNOSIS: * Swallowing difficulty r/t respiratory status as evidenced by pt is vent dep via trach and PEG dep. * Increased kcal and pro needs r/t wound healing and sepsis as evidenced by pt w/ sacral and R heel wounds, febrile (Tmax 101.5). CURRENT TF: Jevity 1.2 @50 ml/hr x16 hrs ENTERAL NUTRITION RECOMMENDATIONS: Glucerna 1.2 @65ml/hr x18 hrs + Prosource x1 daily to provide 1170ml, 1404 kcal, 70g pro + 11g pro, 942 free H2O - REC TF CHANGE AND INCREASE TO BETTER MEET EST NEEDS - TF TO BE HELD FOR ONE HR BEFORE AND AFTER DILANTIN MEDS - START @20ML/HR, ADVANCE TOLERATED 15ML/HR Q4-6 HRS TO GOAL - FLUSH PER , HOB OVRE 30 DEGREES ADDITIONAL RECOMMENDATIONS: 1) CALIBRATED BED SCALE W/ ADDED P200 MATTRESS + PUMP 2) ON LASIX, MONITOR LYTES AND HYDRATION STATUS DAILY 3) TF TO RUN A MAX OF 18 HRS/DAY W/ DILANTIN TID PER PHARMACY 4) REC TF CHANGE TO CARB CONTROL FORMULA 5) WOUND CARE: ADD CHAYITO BID + VIT C 250MG DAILY (5) Fever (6) Decubitus skin ulcer Assessment & Plan: Pt presented on admission with full thickness sacral pressure injury.Base of wound is 20% necrotic , 80% slough. borders are macerated . Mild odor noted. (L)8.4cm x (W) 6.5cm. Periwound skin tone is darker without erythema,induration or elevation in skin temp. Both heels are non -blanchable and both are fluctuant when palpated. Tx.Plan: Clean wound with saline. Apply Therahoney. Aply Moisture Barrier paste periwound. Cover with Optifoam drsg. Change every 3 days and prn. Apply Cavilon Skin BArrier to both heels. Cover each heel with Optifoam drsg. Change every 7 days and prn. APM/DEIRDRE mattress overlay. Reposition at least every 2hours or as tolerated. Off-load heels with pillow. will follow with recs thank you Preet Hylton Nov 22, 2018 14:10
--- NOTE | 2018-11-22 14:59 | Diagnostic Imaging Report ---
Clinical Indication: Abdominal pain Technique: Patient given enteric contrast. IV administration nonionic contrast. Venous phase spiral acquisition obtained through the abdomen and pelvis. Multiplanar reconstructions were generated. Total dose length product 1006.95 mGycm. CTDIvol(s) 19.28 mGy. Dose reduction achieved using automated exposure control Comparison: No comparison CT scans. Reference made to prior abdominal sonogram dated 11/09/2018 Findings: There are colonic diverticula. Moderate amount of retained dense stool is throughout the colon. Patient is status post right hemicolectomy. There is a right upper quadrant ileocolic anastomosis. What is probably some scarring is seen immediately adjacent to the anastomosis. Contrast is seen throughout the entirety of the small bowel, just reaching the proximal colon. No small bowel distention. No free or loculated intraperitoneal gas or fluid is evident. No small bowel wall thickening.There is a large hiatal hernia. A gastrostomy tube is seen within the stomach. The liver, gallbladder, bile ducts, pancreas, spleen, adrenals are unremarkable. The right kidney is unremarkable. There are multiple left renal parapelvic cysts noted. No retroperitoneal or mesenteric mass or adenopathy. No pelvic mass or adenopathy. Large calcifications are seen in the region of both ovaries. The uterus is not definitely identified. The bladder is empty, contains a Ospina catheter. There is extensive edema of the subcutaneous fat. There is a midline surgical incision Focal fluid collection or edema is seen along the incision, measures approximately 2 cm in diameter. Atelectatic changes are seen at both lung bases. The bones demonstrate degenerative spondylosis changes. Impression: No definite acute process Diverticulosis. No evidence of diverticulitis Extensive edema of the subcutaneous fat. 2 cm focal fluid collection/edema seen within the incision Moderate amount retained dense stool. Correlate with any clinical history of constipation Hiatal hernia. Gastrostomy Left renal parapelvic cysts Apparent prior hysterectomy The CT scanner at [facility] is accredited by the [employer] and the scans are performed using protocols designed to limit radiation exposure to as low as reasonably achievable to attain images of sufficient resolution adequate for diagnostic evaluation.
[2018-11-22 16:00] VITALS: BP 128/61
--- NOTE | 2018-11-22 16:00 | Infectious Diseases Prog Note ---
Assessment/Plan Assessment/Plan ASSESSMENT AND PLAN: 1. 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 fungal uti vs colonization - ? drug rash - vancomycin, meropenem and diflucan discontinued yesterday - ? drug fever secondary to abx - abx changed to polymyxin and flagyl - avoid b-lactam abx - picc line changed - new - CT scan without abscess or diverticulitis - monitor labs and chest x-ray - sacral wound management per surgery - please see orders - case d/w Dr. Walters at length 2. Trach-vent respiratory failure. 3. Dysphagia, G-tube. 4. Anemia. 5. Diabetes. 6. Hypertension. 7. Large tongue. 8. Anoxic brain injury. 9. Weakness. 10. Poorly responsive. 11. History of seizures. 12. History of colon adenocarcinoma. 13. Skin care protocol. 14. Allergy to crawfish. 15. Social history negative. 16. Family history noncontributory. 17. MAR was noted. 18. Case was discussed with RN. 19. Continue treatment per primary consultants. 20. Orders were ordered, entered, and noted. 21. Continue wound care protocol. 22. Continue blood sugar and blood pressure treatment per primary consultants for diabetes and hypertension. 23. vre colonization and isolation Subjective Constitutional: Reports: fever - lgt , fatigue, other - + trach and vent HEENT: Reports: congestion Respiratory: Reports: shortness of breath Cardiovascular: Reports: other - no pressors Gastrointestinal/Abdominal: Denies: nausea, vomiting, diarrhea Genitourinary: Reports: other - + nava Neurologic: Reports: weakness, other - poorly resp Psychiatric: Reports: other - N Skin: Reports: other - wounds - covered ; Denies: rash Hematologic: Reports: other Musculoskeletal: Reports: other - NA Allergies: Coded Allergies: Crayfish (Unverified Allergy, Unknown, 11/11/18) Uncoded Allergies: Crawfish (Allergy, Unknown, 11/09/18) Objective Vital Signs Last 24 Hour Vital Signs Date Time Temp Pulse Resp B/P (MAP) Pulse Ox O2 Delivery O2 Flow Rate FiO2 11/22/18 15:12 89 18 30 11/22/18 14:34 96 135/73 9/4/19 14:34 135/73 11/22/18 13:07 94 20 30 11/22/18 12:00 95 11/22/18 12:00 100.8 95 26 152/63 (92) 100 11/22/18 12:00 Mechanical Ventilator 11/22/18 12:00 30 11/22/18 11:14 92 22 30 11/22/18 08:49 91 22 30 11/22/18 08:18 92 132/49 11/22/18 08:00 Mechanical Ventilator 11/22/18 08:00 100.6 92 23 134/49 (77) 100 11/22/18 08:00 30 11/22/18 07:38 91 20 30 11/22/18 07:30 92 11/22/18 05:40 96 149/98 11/22/18 05:39 149/98 11/22/18 05:22 91 22 30 11/22/18 04:00 Mechanical Ventilator 11/22/18 04:00 30 11/22/18 04:00 100.0 89 23 145/77 (99) 100 11/22/18 03:32 86 11/22/18 03:14 85 20 30 11/22/18 01:27 83 20 30 11/22/18 01:15 99.0 11/22/18 00:00 101.1 94 26 150/70 (96) 100 11/22/18 00:00 Mechanical Ventilator 11/22/18 00:00 30 11/21/18 23:34 97 11/21/18 23:11 98 25 30 11/21/18 22:40 97 119/67 11/21/18 22:40 119/67 11/21/18 21:05 97 20 30 11/21/18 20:00 101.5 89 22 119/67 (84) 96 11/21/18 20:00 Mechanical Ventilator 11/21/18 19:30 87 11/21/18 19:28 93 21 30 11/21/18 17:21 101 22 30 11/21/18 17:05 102.9 97 23 135/75 (95) 100 11/21/18 16:00 30 11/21/18 16:00 Mechanical Ventilator Height (Feet): 5 Height (Inches): 8.00 Weight (Pounds): 210 General Appearance: other - + trach and vent HEENT: normocephalic, atraumatic, anicteric, no JVD, status post trach Respiratory/Chest: crackles/rales, rhonchi - bilaterally Cardiovascular: normal rate, regular rhythm, no gallop/murmur Abdomen: normal bowel sounds, soft, non tender, no organomegaly Genitourinary: other - + nava - urine cloudy Extremities: no cyanosis Skin: rash - mild rash, other - wounds covered Neurologic/Psychiatric: motor weakness, other - weak, poorly responsive Lymphatic: no neck adenopathy Musculoskeletal: no effusion Objective 11/11/18 - chest x-ray - IMPRESSION: 1. Hypoventilatory lungs. Elevated right hemidiaphragm. Slightly improved vascular congestion. Similar bibasilar lung atelectasis and airspace disease. 2. Query right pleural effusion. 2-D echo - no vegetations mentioned, report noted sacral x-ray - no osteo mentioned, report noted 11/14/18 - Technique: One view of the chest Comparison: November 13, 2018 post PICC radiograph Findings: Bilateral interstitial and alveolar edema versus infiltrates appear slightly worse. There is increasing obscuration of left hemidiaphragm, may reflect increasing pleural fluid as well. The heart remains enlarged. Previously demonstrated left arm PICC has been removed. Stable right arm PICC. Impression: Slightly worsening bilateral interstitial and airspace infiltrates versus edema, over one day 11/16/18 - chest x-ray Procedure: XRAY Chest 1v Indication: Dyspnea Technique: One view of the chest Comparison: November 14, 2018 Findings: Bilateral interstitial edema persists. Tracheostomy, right arm PICC remain. The heart is enlarged. Impression: Bilateral interstitial edema, unchanged over [address] abdomen and pelvis: Impression: No definite acute process Diverticulosis. No evidence of diverticulitis Extensive edema of the subcutaneous fat. 2 cm focal fluid collection/edema seen within the incision Moderate amount retained dense stool. Correlate with any clinical history of constipation Hiatal hernia. Gastrostomy Left renal parapelvic cysts Apparent prior hysterectomy Microbiology Date/Time Source Procedure Growth Status 11/16/18 12:35 Blood Blood Culture - Final NO GROWTH AFTER 5 DAYS Complete 11/16/18 12:40 Sputum Expectorated Gram Stain - Final Complete 11/16/18 12:40 Sputum Culture - Final Raoultella Planticola Providencia Stuartii Complete 11/16/18 12:30 Urine,Clean Catch Urine Culture - Final Ivelisse Albicans Complete 11/13/18 21:55 Catheter Site Catheter Tip Culture - Final Escherichia Coli Complete Microbiology Date/Time Source Procedure Growth Status 11/16/18 12:35 Blood Blood Culture - Final NO GROWTH AFTER 5 DAYS Complete 11/16/18 12:40 Sputum Expectorated Gram Stain - Final Complete 11/16/18 12:40 Sputum Culture - Final Raoultella Planticola Providencia Stuartii Complete 11/16/18 12:30 Urine,Clean Catch Urine Culture - Final Ivelisse Albicans Complete 11/13/18 21:55 Catheter Site Catheter Tip Culture - Final Escherichia Coli Complete Laboratory Tests Test 11/22/18 08:30 White Blood Count 8.0 K/UL (4.8-10.8) Red Blood Count 3.12 M/UL (4.20-5.40) L Hemoglobin 8.0 G/DL (12.0-16.0) L Hematocrit 24.3 % (37.0-47.0) L Mean Corpuscular Volume 78 FL (80-99) L Mean Corpuscular Hemoglobin 25.6 PG (27.0-31.0) L Mean Corpuscular Hemoglobin Concent 32.9 G/DL (32.0-36.0) Red Cell Distribution Width 22.0 % (11.6-14.8) H Platelet Count 404 K/UL (150-450) Mean Platelet Volume 5.2 FL (6.5-10.1) L Neutrophils (%) (Auto) 78.3 % (45.0-75.0) H Lymphocytes (%) (Auto) 13.3 % (20.0-45.0) L Monocytes (%) (Auto) 6.2 % (1.0-10.0) Eosinophils (%) (Auto) 1.4 % (0.0-3.0) Basophils (%) (Auto) 0.8 % (0.0-2.0) Sodium Level 137 MMOL/L (136-145) Potassium Level 3.2 MMOL/L (3.5-5.1) L Chloride Level 100 MMOL/L (98-107) Carbon Dioxide Level 30 MMOL/L (21-32) Anion Gap 7 mmol/L (5-15) Blood Urea Nitrogen 16 mg/dL (7-18) Creatinine 0.3 MG/DL (0.55-1.30) L Estimat Glomerular Filtration Rate mL/min (>60) Glucose Level 123 MG/DL (74-106) H Calcium Level 7.7 MG/DL (8.5-10.1) L Total Bilirubin 0.2 MG/DL (0.2-1.0) Aspartate Amino Transf (AST/SGOT) 153 U/L (15-37) H Alanine Aminotransferase (ALT/SGPT) 115 U/L (12-78) H Alkaline Phosphatase 250 U/L (46-116) H Total Protein 5.2 G/DL (6.4-8.2) L Albumin 1.0 G/DL (3.4-5.0) L Globulin 4.2 g/dL Albumin/Globulin Ratio 0.2 (1.0-2.7) L Vancomycin Level Trough 10.1 ug/mL (5.0-12.0) Current Medications Medications (Trade) Dose Ordered Sig/Lupe Route PRN Reason Start Time Stop Time Status Last Admin Dose Admin Acetaminophen (Tylenol) 650 mg Q4H PRN GT Mild Pain/Temp > 100.5 11/09/18 05:00 12/09/18 04:59 11/22/18 14:48 Amlodipine Besylate (Norvasc) 10 mg DAILY GT 11/09/18 09:00 12/09/18 08:59 11/22/18 08:18 Bisacodyl (Dulcolax) 10 mg DAILY PRN RECTAL Constipation 11/09/18 05:00 12/09/18 04:59 Calcium Carbonate (Tums) 500 mg EVERY 8 HOURS GT 11/09/18 14:00 12/09/18 08:59 11/22/18 14:33 Chlorhexidine Gluconate (Corazon-Hex 2%) 1 applic DAILY@1999 TOPIC 11/12/18 20:00 12/12/18 19:59 11/21/18 22:38 Dextrose (Dextrose 50%) 25 ml Q30M PRN IV Hypoglycemia 11/09/18 04:45 12/09/18 04:44 Dextrose (Dextrose 50%) 50 ml Q30M PRN IV Hypoglycemia 11/09/18 04:45 12/09/18 04:44 11/09/18 09:09 Enoxaparin Sodium (Lovenox) 40 mg DAILY SUBQ 11/09/18 09:00 12/09/18 08:59 11/22/18 08:20 Famotidine (Pepcid) 20 mg EVERY 12 HOURS GT 11/09/18 21:00 12/09/18 08:59 11/22/18 08:18 Furosemide (Lasix) 40 mg EVERY 12 HOURS GT 11/09/18 09:00 12/09/18 08:59 11/22/18 08:18 Hydralazine HCl (Apresoline) 5 mg EVERY 8 HOURS GT 11/09/18 06:00 12/09/18 05:59 11/22/18 14:34 Insulin Aspart (NovoLOG) Q6HR SUBQ 11/09/18 06:00 12/09/18 05:59 11/22/18 00:20 Insulin Detemir (Levemir) 4 units EVERY 12 HOURS SUBQ 11/16/18 21:00 12/09/18 08:59 11/21/18 21:46 Labetalol HCl (Normodyne) 200 mg Q8HR GT 11/09/18 06:00 12/09/18 05:59 11/22/18 14:34 Levetiracetam (Keppra) 1,500 mg Q12HR GT 11/09/18 09:00 12/09/18 08:59 11/22/18 08:19 Magnesium Hydroxide (Mom) 30 ml DAILY PRN GT Constipation 11/09/18 05:00 12/09/18 04:59 Magnesium Oxide (Mag-Ox 400mg) 400 mg EVERY 8 HOURS GT 11/09/18 14:00 12/09/18 08:59 11/22/18 14:34 Metronidazole 100 ml @ 100 mls/hr Q8HR IVPB 11/21/18 22:00 11/28/18 21:59 11/22/18 14:36 Ondansetron HCl (Zofran) 4 mg Q6H PRN GT Nausea & Vomiting 11/09/18 05:00 12/09/18 04:59 Phenobarbital (PHENobarbital) 60 mg BID GT 11/09/18 09:00 12/09/18 08:59 11/22/18 08:18 Phenytoin (Dilantin) 100 mg Q8HR GT 11/09/18 06:00 12/09/18 05:59 11/22/18 14:33 Polyethylene Glycol (Miralax) 17 gm DAILYPRN PRN GT Constipation 11/14/18 10:30 12/12/18 10:29 Polymyxin B Sulfate 486866 units/Dextrose 550 ml @ 550 mls/hr EVERY 12 HOURS IV 11/21/18 21:00 11/28/18 20:59 11/22/18 08:46 Sennosides (Senokot) 8.6 mg EVERY 12 HOURS GT 11/09/18 21:00 12/09/18 08:59 11/22/18 08:18 Valproic Acid (Depakene) 500 mg EVERY 8 HOURS GT 11/09/18 06:00 12/09/18 05:59 11/22/18 14:33 Dasha Crews MD Nov 22, 2018 16:00
[2018-11-22] MEDS ORDERED: NS 275ml ONE (17:07)
[2018-11-22] MEDS ORDERED: Tubing IV Secondary IV ONE (17:07)
[2018-11-22] MEDS ORDERED: NS 500ML ONE (17:07)
--- NOTE | 2018-11-22 18:59 | NUR ---
HAND-OFF: Report given to CHARLEE Guadalupe. Patient in stable condition.
--- NOTE | 2018-11-22 19:00 | NUR ---
NURSE NOTES: Received pt from Radha DESHPANDE. Pt is obtunded in bed with no sign of acute distress. Oral mucosa is moist and pink with no signs of infection. Pt VSS with mild temp 99.9. PICC sight and skin issues noted, track setting AC 14, VT 375, Fiao2 30%, PEEP 5, g-tube feeding running at goal, and nava in place. Bed at its lowest position, x3 bed rails are up and call light in reach.
--- NOTE | 2018-11-22 19:11 | Hematology/Onc Progress Note ---
Assessment/Plan Assessment/Plan 95k# Anemia of chronic disease due to underlying chronic medical issues, multifactorial --> Anemia workup has been reviewed and cw acd --> No evidence of hemolysis is noted, peripheral smear has been reviewed. --> Hgb goal >7. Transfuse prn. --> hgb trend 9.1-->8.9-->9-->8.9-->8.9->7.8->8.7 --> Epogen or iron indication prn --> Medications have been reviewed --> low threshold for gi evaluation in case has occult + --> bone marrow biopsy is not indicated given the other more likely causes # Leukocytosis iwth Sepsis secondary to UTI, GPC Staph Epidermidis bacteremia, Line associated infection - patient arrived to the Hospital with PICC --> as per ID consult appreciate Rec --> Continue antibiotics per ID: Continue Zosyn and vancomycin, anti fungal added--> kaykay/vanc, diflucan --> imaging noted # Thrombocytosis is likely due to underlying reactive process --> if doesn't improve send off jak2 --> plt count 641k # Transaminitis --> trend lft's --> GI consult, apprec recs --> ab us: reviewed # Elevated troponin secondary to sepsis versus ACS --> as per Cardiology consult, appreciate recs --> now better # Hypertension- improved --> sbp goal <150 # 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 GREATLY APPRECIATE CONSULTATION. Subjective Allergies: Coded Allergies: Crayfish (Unverified Allergy, Unknown, 11/11/18) Uncoded Allergies: Crawfish (Allergy, Unknown, 11/09/18) Subjective 11/14: no events to report, labs relatively stable, hgb 8.9, on vent 11/15: no bleeding, no chills, labs reviewed, no major changes 11/16: cxr-->bilateral interstitial edema, vs stable, on abx, on vent, contact isolation 11/17: labs reviewed, on abx, vs stable, on vent, no distress 11/18: remains on gtube feeds, is on vent, on kaykay/vanc 11/20: no events, no bleeding, kaykay, vanc, diflucan, no f/c 11/21: remains on vent, gtube feeds, no major changes, no bleeding 11/22: ct abdomen pelvis w/contrast reviewed, vs stable, no acute events, labs reviewed, remains intubated, low grade fever Objective Objective Current Medications Medications (Trade) Dose Ordered Sig/Lupe Route PRN Reason Start Time Stop Time Status Last Admin Dose Admin Acetaminophen (Tylenol) 650 mg Q4H PRN GT Mild Pain/Temp > 100.5 11/09/18 05:00 12/09/18 04:59 11/22/18 14:48 Amlodipine Besylate (Norvasc) 10 mg DAILY GT 11/09/18 09:00 12/09/18 08:59 11/22/18 08:18 Bisacodyl (Dulcolax) 10 mg DAILY PRN RECTAL Constipation 11/09/18 05:00 12/09/18 04:59 Calcium Carbonate (Tums) 500 mg EVERY 8 HOURS GT 11/09/18 14:00 12/09/18 08:59 11/22/18 14:33 Chlorhexidine Gluconate (Corazon-Hex 2%) 1 applic DAILY@2000 TOPIC 11/12/18 20:00 12/12/18 19:59 11/21/18 22:38 Dextrose (Dextrose 50%) 25 ml Q30M PRN IV Hypoglycemia 11/09/18 04:45 12/09/18 04:44 Dextrose (Dextrose 50%) 50 ml Q30M PRN IV Hypoglycemia 11/09/18 04:45 12/09/18 04:44 11/09/18 09:09 Enoxaparin Sodium (Lovenox) 40 mg DAILY SUBQ 11/09/18 09:00 12/09/18 08:59 11/22/18 08:20 Famotidine (Pepcid) 20 mg EVERY 12 HOURS GT 11/09/18 21:00 12/09/18 08:59 11/22/18 08:18 Furosemide (Lasix) 40 mg EVERY 12 HOURS GT 11/09/18 09:00 12/09/18 08:59 11/22/18 08:18 Hydralazine HCl (Apresoline) 5 mg EVERY 8 HOURS GT 11/09/18 06:00 12/09/18 05:59 11/22/18 14:34 Insulin Aspart (NovoLOG) Q6HR SUBQ 11/09/18 06:00 12/09/18 05:59 11/22/18 17:46 Insulin Detemir (Levemir) 4 units EVERY 12 HOURS SUBQ 11/16/18 21:00 12/09/18 08:59 11/21/18 21:46 Labetalol HCl (Normodyne) 200 mg Q8HR GT 11/09/18 06:00 12/09/18 05:59 11/22/18 14:34 Levetiracetam (Keppra) 1,500 mg Q12HR GT 11/09/18 09:00 12/09/18 08:59 11/22/18 08:19 Magnesium Hydroxide (Mom) 30 ml DAILY PRN GT Constipation 11/09/18 05:00 12/09/18 04:59 Magnesium Oxide (Mag-Ox 400mg) 400 mg EVERY 8 HOURS GT 11/09/18 14:00 12/09/18 08:59 11/22/18 14:34 Metronidazole 100 ml @ 100 mls/hr Q8HR IVPB 11/21/18 22:00 11/28/18 21:59 11/22/18 14:36 Ondansetron HCl (Zofran) 4 mg Q6H PRN GT Nausea & Vomiting 11/09/18 05:00 12/09/18 04:59 Phenobarbital (PHENobarbital) 60 mg BID GT 11/09/18 09:00 12/09/18 08:59 11/22/18 17:37 Phenytoin (Dilantin) 100 mg Q8HR GT 11/09/18 06:00 12/09/18 05:59 11/22/18 14:33 Polyethylene Glycol (Miralax) 17 gm DAILYPRN PRN GT Constipation 11/14/18 10:30 12/12/18 10:29 Polymyxin B Sulfate [id number] units/Dextrose 550 ml @ 550 mls/hr EVERY 12 HOURS IV 11/21/18 21:00 11/28/18 20:59 11/22/18 08:46 Sennosides (Senokot) 8.6 mg EVERY 12 HOURS GT 11/09/18 21:00 12/09/18 08:59 11/22/18 08:18 Valproic Acid (Depakene) 500 mg EVERY 8 HOURS GT 11/09/18 06:00 12/09/18 05:59 11/22/18 14:33 Last 24 Hour Vital Signs Date Time Temp Pulse Resp B/P (MAP) Pulse Ox O2 Delivery O2 Flow Rate FiO2 11/22/18 16:46 82 19 30 11/22/18 16:00 Mechanical Ventilator 11/22/18 16:00 30 11/22/18 16:00 99.9 95 20 128/61 (83) 100 11/22/18 15:32 89 11/22/18 15:18 99.9 11/22/18 15:12 89 18 30 11/22/18 14:34 96 135/73 11/22/18 14:34 135/73 11/22/18 13:07 94 20 30 11/22/18 12:00 95 11/22/18 12:00 100.8 95 26 152/63 (92) 100 11/22/18 12:00 Mechanical Ventilator 11/22/18 12:00 30 11/22/18 11:14 92 22 30 11/22/18 08:49 91 22 30 11/22/18 08:18 92 132/49 11/22/18 08:00 Mechanical Ventilator 11/22/18 08:00 100.6 92 23 134/49 (77) 100 11/22/18 08:00 30 11/22/18 07:38 91 20 30 11/22/18 07:30 92 11/22/18 05:40 96 149/98 11/22/18 05:39 149/98 11/22/18 05:22 91 22 30 11/22/18 04:00 Mechanical Ventilator 11/22/18 04:00 30 11/22/18 04:00 100.0 89 23 145/77 (99) 100 11/22/18 03:32 86 11/22/18 03:14 85 20 30 11/22/18 01:27 83 20 30 11/22/18 00:00 101.1 94 26 150/70 (96) 100 11/22/18 00:00 Mechanical Ventilator 11/22/18 00:00 30 11/21/18 23:34 97 11/21/18 23:11 98 25 30 11/21/18 22:40 97 119/67 9/3/19 22:40 119/67 11/21/18 21:05 97 20 30 11/21/18 20:00 101.5 89 22 119/67 (84) 96 11/21/18 20:00 Mechanical Ventilator 11/21/18 19:30 87 11/21/18 19:28 93 21 30 11/21/18 17:21 101 22 30 11/21/18 17:05 102.9 97 23 135/75 (95) 100 11/21/18 16:00 30 11/21/18 16:00 Mechanical Ventilator 11/21/18 15:29 100 20 30 11/21/18 15:29 103 11/21/18 14:41 100/52 11/21/18 14:40 100 100/52 11/21/18 13:10 100 30 30 11/21/18 12:00 30 11/21/18 12:00 100.4 94 21 100/52 (68) 100 11/21/18 12:00 Mechanical Ventilator 11/21/18 11:39 88 11/21/18 11:03 99 22 30 11/21/18 09:09 96 20 30 11/21/18 08:28 95 130/70 11/21/18 08:00 102.4 95 20 130/70 (90) 100 11/21/18 08:00 30 11/21/18 08:00 Mechanical Ventilator 11/21/18 07:40 93 11/21/18 07:24 94 21 30 11/21/18 05:42 103 136/70 11/21/18 05:42 136/70 11/21/18 05:30 100 23 30 11/21/18 04:00 Mechanical Ventilator 11/21/18 04:00 99.5 106 20 150/82 (104) 100 11/21/18 04:00 30 11/21/18 03:26 103 11/21/18 03:23 103 22 30 11/21/18 00:42 96 24 30 11/21/18 00:00 98.8 85 20 123/70 (87) 98 11/21/18 00:00 Mechanical Ventilator 11/20/18 23:34 83 21 30 11/20/18 23:28 84 11/20/18 21:43 140/74 11/20/18 21:42 91 140/74 11/20/18 21:33 91 20 30 11/20/18 20:00 101.6 96 20 140/74 (96) 100 11/20/18 20:00 30 11/20/18 20:00 Mechanical Ventilator 11/20/18 19:32 95 24 100 Mechanical Ventilator 30 11/20/18 19:32 95 24 30 11/20/18 19:22 98 Intake and Output 11/21/18 11/22/18 19:00 07:00 Intake Total 935 ml 1460 ml Output Total 1400 ml Balance -465 ml 1460 ml Intake Free Water 250 ml 190 ml IV Total 100 ml 750 ml Tube Feeding 585 ml 520 ml Output Urine Total 1400 ml # Bowel Movements 2 1 Labs Test 11/20/18 04:15 11/21/18 04:00 11/22/18 08:30 White Blood Count 13.3 K/UL (4.8-10.8) 12.5 K/UL (4.8-10.8) 8.0 K/UL (4.8-10.8) Red Blood Count 3.04 M/UL (4.20-5.40) 3.38 M/UL (4.20-5.40) 3.12 M/UL (4.20-5.40) Hemoglobin 7.8 G/DL (12.0-16.0) 8.7 G/DL (12.0-16.0) 8.0 G/DL (12.0-16.0) Hematocrit 23.8 % (37.0-47.0) 26.5 % (37.0-47.0) 24.3 % (37.0-47.0) Mean Corpuscular Volume 78 FL (80-99) 78 FL (80-99) 78 FL (80-99) Mean Corpuscular Hemoglobin 25.6 PG (27.0-31.0) 25.7 PG (27.0-31.0) 25.6 PG (27.0-31.0) Mean Corpuscular Hemoglobin Concent 32.8 G/DL (32.0-36.0) 32.8 G/DL (32.0-36.0) 32.9 G/DL (32.0-36.0) Red Cell Distribution Width 22.8 % (11.6-14.8) 23.0 % (11.6-14.8) 22.0 % (11.6-14.8) Platelet Count 495 K/UL (150-450) 484 K/UL (150-450) 404 K/UL (150-450) Mean Platelet Volume 5.4 FL (6.5-10.1) 5.5 FL (6.5-10.1) 5.2 FL (6.5-10.1) Neutrophils (%) (Auto) % (45.0-75.0) 84.2 % (45.0-75.0) 78.3 % (45.0-75.0) Lymphocytes (%) (Auto) % (20.0-45.0) 10.1 % (20.0-45.0) 13.3 % (20.0-45.0) Monocytes (%) (Auto) % (1.0-10.0) 4.5 % (1.0-10.0) 6.2 % (1.0-10.0) Eosinophils (%) (Auto) % (0.0-3.0) 0.7 % (0.0-3.0) 1.4 % (0.0-3.0) Basophils (%) (Auto) % (0.0-2.0) 0.5 % (0.0-2.0) 0.8 % (0.0-2.0) Sodium Level 139 MMOL/L (136-145) 138 MMOL/L (136-145) 137 MMOL/L (136-145) Potassium Level 3.6 MMOL/L (3.5-5.1) 3.7 MMOL/L (3.5-5.1) 3.2 MMOL/L (3.5-5.1) Chloride Level 101 MMOL/L (98-107) 101 MMOL/L (98-107) 100 MMOL/L (98-107) Carbon Dioxide Level 32 MMOL/L (21-32) 30 MMOL/L (21-32) 30 MMOL/L (21-32) Anion Gap 6 mmol/L (5-15) 7 mmol/L (5-15) 7 mmol/L (5-15) Blood Urea Nitrogen 14 mg/dL (7-18) 13 mg/dL (7-18) 16 mg/dL (7-18) Creatinine 0.4 MG/DL (0.55-1.30) 0.3 MG/DL (0.55-1.30) 0.3 MG/DL (0.55-1.30) Estimat Glomerular Filtration Rate mL/min (>60) mL/min (>60) mL/min (>60) Glucose Level 118 MG/DL (74-106) 90 MG/DL (74-106) 123 MG/DL (74-106) Calcium Level 7.9 MG/DL (8.5-10.1) 8.2 MG/DL (8.5-10.1) 7.7 MG/DL (8.5-10.1) Total Bilirubin 0.2 MG/DL (0.2-1.0) 0.2 MG/DL (0.2-1.0) 0.2 MG/DL (0.2-1.0) Aspartate Amino Transf (AST/SGOT) 130 U/L (15-37) 137 U/L (15-37) 153 U/L (15-37) Alanine Aminotransferase (ALT/SGPT) 124 U/L (12-78) 117 U/L (12-78) 115 U/L (12-78) Alkaline Phosphatase 248 U/L (46-116) 240 U/L (46-116) 250 U/L (46-116) Total Protein 5.4 G/DL (6.4-8.2) 6.1 G/DL (6.4-8.2) 5.2 G/DL (6.4-8.2) Albumin 1.1 G/DL (3.4-5.0) 1.2 G/DL (3.4-5.0) 1.0 G/DL (3.4-5.0) Globulin 4.3 g/dL 4.9 g/dL 4.2 g/dL Albumin/Globulin Ratio 0.3 (1.0-2.7) 0.2 (1.0-2.7) 0.2 (1.0-2.7) Phosphorus Level 2.2 MG/DL (2.5-4.9) Magnesium Level 2.0 MG/DL (1.8-2.4) Vancomycin Level Trough 10.1 ug/mL (5.0-12.0) Height (Feet): 5 Height (Inches): 8.00 Weight (Pounds): 210 Objective Physical Exam: Vitals: reviewed Gen: NAD HEENT: normocephalic, atraumatic Neck: non-tender, normal alignment ++ vent Respiratory: normal breath sounds bilaterally CV: normal peripheral pulses, rrr Abdomen: normal bowel sounds, soft, nontender +gtube Extremities: normal range of motion Yonathan Hernandez MD Nov 22, 2018 19:11
[2018-11-22 20:00] VITALS: BP 141/73
[2018-11-22] MEDS: Dyna-Hex 2% Top Sol 2oz TOPIC SCH (20:29)
[2018-11-23] VITALS: BP 113/56
--- NOTE | 2018-11-23 00:20 | NUR ---
NURSE NOTES: Treasure called with concerns of her mothers tongue. She wants the doctors to reach out to someone who is willing to address the tooth in the patients tongue. Treasure is also concerned with her mothers fever, the swelling of her mothers arms and tongue. I educated her on the accumulation of fluids in the body for patients that are immobile and she stated that she understood. Patient's daughter seems frustrated and upset, but pleasant and willing to work with the healthcare team.
[2018-11-23 04:00] VITALS: BP 158/79
[2018-11-23 05:11] LABS: BASOPHILS % (AUTO) 0.6 % (0.0-2.0); EOSINOPHILS % (AUTO) 2.4 % (0.0-3.0); HEMATOCRIT 24.7 % (37.0-47.0); HEMOGLOBIN 8.1 G/DL (12.0-16.0); LYMPHOCYTES % (AUTO) 15.4 % (20.0-45.0); MEAN CORPUSCULAR VOLUME 77 FL (80-99); MONOCYTES % (AUTO) 3.9 % (1.0-10.0); NEUTROPHILS % (AUTO) 77.6 % (45.0-75.0); PLATELET COUNT 388 K/UL (150-450); RED BLOOD COUNT 3.19 M/UL (4.20-5.40); RED CELL DISTRIBUTION WIDTH 22.2 % (11.6-14.8); WHITE BLOOD COUNT 7.7 K/UL (4.8-10.8)
[2018-11-23 05:37] LABS: ALANINE AMINOTRANSFERASE 101 U/L (12-78); ALBUMIN 1.1 G/DL (3.4-5.0); ALBUMIN/GLOBULIN RATIO 0.2 (1.0-2.7); ALKALINE PHOSPHATASE 264 U/L (46-116); ANION GAP 5 mmol/L (5-15); ASPARTATE AMINO TRANSFERASE 126 U/L (15-37); BILIRUBIN,TOTAL 0.2 MG/DL (0.2-1.0); BLOOD UREA NITROGEN 13 mg/dL (7-18); CARBON DIOXIDE 33 MMOL/L (21-32); CHLORIDE 98 MMOL/L (98-107); CREATININE 0.3 MG/DL (0.55-1.30); POTASSIUM 3.3 MMOL/L (3.5-5.1); SODIUM 136 MMOL/L (136-145)
[2018-11-23] MEDS: Phenytoin Susp 100mg/4ml GT SCH ×3 (05:44→21:59)
[2018-11-23] MEDS: HydrALAZINE 10mg Tab GT SCH ×3 (05:44→22:00)
[2018-11-23] MEDS: Valproic Acid 250mg/5ml Liquid GT SCH ×3 (05:44→21:59)
[2018-11-23] MEDS: Labetalol 200mg tab GT SCH ×3 (05:44→22:00)
[2018-11-23] MEDS: Magnesium Oxide 400mg tab GT SCH ×3 (05:44→22:00)
[2018-11-23] MEDS: Tums 500mg GT SCH ×3 (05:45→22:00)
[2018-11-23] MEDS: NovoLOG Insulin Flexpen SUBQ SCH ×5 (05:45→23:42)
--- NOTE | 2018-11-23 06:34 | NUR ---
RESPIRATORY NOTE: Received pt on trach Shiley, cuffed size 8.0, secured by trach tie and trach guard, with current vent settings: AC 14-375ml-30%FiO2- peep 5. Pt is trach dependent, unable to follow commands, resting in bed comfortably, no SOB or resp distress noted. Juan rhonchi breath sounds heard upon auscultation, suctioned small amounts of thick white/mccauley secretions without incidents. Oral care done. Noted a wound on the right side below the trach, covered by wound tape. Alarms are set and audible, vent is plugged into the red outlet, ambu bag and trach kit are at bedside. Will continue to monitor and sxn q2h ans as needed.
--- NOTE | 2018-11-23 07:05 | NUR ---
HAND-OFF: Report given to Jani DESHPANDE.
--- NOTE | 2018-11-23 07:19 | NUR ---
NURSE NOTES: Received report from CHARLEE Guadalupe. Patient is resting in bed, in stable condition, vent settings are as ordered. Bed is in lowest position, brakes engaged. Call light is kept within easy reach. Will continue to monitor patient.
[2018-11-23 08:00] VITALS: BP 141/79
[2018-11-23] MEDS: Polymyxin B Sulfate 500,000 UNITS in D5W 500ml 550 ML IV SCH ×2 (08:30→20:39)
[2018-11-23] MEDS: Sennosides 8.6mg tab GT SCH ×2 (08:30→20:39)
[2018-11-23] MEDS: levETIRAcetam 500mg/5ml Liquid GT SCH ×2 (08:31→20:54)
[2018-11-23] MEDS: Furosemide 40mg tab GT SCH ×2 (08:31→20:39)
[2018-11-23] MEDS: PHENobarbital Elixir 30mg/7.5ml GT SCH ×2 (08:32→17:05)
[2018-11-23] MEDS: Enoxaparin 40mg Inj SUBQ SCH (08:34)
[2018-11-23] MEDS: Levemir Flexpen SUBQ SCH ×2 (08:35→20:44)
--- NOTE | 2018-11-23 08:41 | NUR ---
RADIOLOGY DEPT., CHEST X-RAY DONE. Paty BIGGS
--- NOTE | 2018-11-23 09:07 | Hematology/Onc Progress Note ---
Assessment/Plan Assessment/Plan # Anemia of chronic disease due to underlying chronic medical issues, multifactorial --> Anemia workup has been reviewed and cw acd --> No evidence of hemolysis is noted, peripheral smear has been reviewed. --> Hgb goal >7. Transfuse prn. --> hgb trend 9.1-->8.9-->9-->8.9-->8.9->7.8->8.7 --> Epogen or iron indication prn --> Medications have been reviewed --> low threshold for gi evaluation in case has occult + --> bone marrow biopsy is not indicated given the other more likely causes # Leukocytosis iwth Sepsis secondary to UTI, GPC Staph Epidermidis bacteremia, Line associated infection - patient arrived to the Hospital with PICC --> as per ID consult appreciate Rec --> Continue antibiotics per ID: Continue Zosyn and vancomycin, anti fungal added--> kaykay/vanc, diflucan-->flagyl, vanc --> imaging noted # Thrombocytosis is likely due to underlying reactive process --> if doesn't improve send off jak2 --> plt count 641k # Transaminitis --> trend lft's --> GI consult, apprec recs --> ab us: reviewed # Elevated troponin secondary to sepsis versus ACS --> as per Cardiology consult, appreciate recs --> now better # Hypertension- improved --> sbp goal <150 # 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 GREATLY APPRECIATE CONSULTATION. Subjective Constitutional: Denies: no symptoms, chills, fever, malaise, weakness, other HEENT: Denies: no symptoms, eye pain, blurred vision, tearing, double vision, ear pain, ear discharge, nose pain, nose congestion, throat pain, throat swelling, mouth pain, mouth swelling, other Cardiovascular: Denies: no symptoms, chest pain, edema, irregular heart rate, lightheadedness, palpitations, syncope, other Respiratory: Denies: no symptoms, cough, shortness of breath, SOB with excertion, SOB at rest, sputum, wheezing, other Gastrointestinal/Abdominal: Denies: no symptoms, abdomen distended, abdominal pain, black stools, tarry stools, blood in stool, constipated, diarrhea, difficulty swallowing, nausea, poor appetite, poor fluid intake, rectal bleeding , vomiting, other Genitourinary: Denies: no symptoms, burning, discharge, frequency, flank pain, hematuria, incontinence, pain, urgency, other Neurologic/Psychiatric: Denies: no symptoms, anxiety, depressed, emotional problems, headache, numbness, paresthesia, pre-existing deficit, seizure, tingling, tremors, weakness, other Endocrine: Denies: no symptoms, excessive sweating, flushing, intolerance to cold, intolerance to heat, increased hunger, increased thirst, increased urine, unexplained weight gain, unexplained weight loss, other Hematologic/Lymphatic: Denies: no symptoms, anemia, easy bleeding, easy bruising, adenopathy, other Allergies: Coded Allergies: Crayfish (Unverified Allergy, Unknown, 11/11/18) Uncoded Allergies: Crawfish (Allergy, Unknown, 11/09/18) Subjective 11/14: no events to report, labs relatively stable, hgb 8.9, on vent 11/15: no bleeding, no chills, labs reviewed, no major changes 11/16: cxr-->bilateral interstitial edema, vs stable, on abx, on vent, contact isolation 11/17: labs reviewed, on abx, vs stable, on vent, no distress 11/18: remains on gtube feeds, is on vent, on kaykay/vanc 11/20: no events, no bleeding, kaykay, vanc, diflucan, no f/c 11/21: remains on vent, gtube feeds, no major changes, no bleeding 11/22: ct abdomen pelvis w/contrast reviewed, vs stable, no acute events, labs reviewed, remains intubated, low grade fever 11/23: reviewed meds, abx have been changed, remains altered currently Objective Objective Current Medications Medications (Trade) Dose Ordered Sig/Lupe Route PRN Reason Start Time Stop Time Status Last Admin Dose Admin Acetaminophen (Tylenol) 650 mg Q4H PRN GT Mild Pain/Temp > 100.5 11/09/18 05:00 12/09/18 04:59 11/22/18 14:48 Amlodipine Besylate (Norvasc) 10 mg DAILY GT 11/09/18 09:00 12/09/18 08:59 11/23/18 08:30 Bisacodyl (Dulcolax) 10 mg DAILY PRN RECTAL Constipation 11/09/18 05:00 12/09/18 04:59 Calcium Carbonate (Tums) 500 mg EVERY 8 HOURS GT 11/09/18 14:00 12/09/18 08:59 11/23/18 05:45 Chlorhexidine Gluconate (Corazon-Hex 2%) 1 applic DAILY@2000 TOPIC 11/12/18 20:00 12/12/18 19:59 11/22/18 20:29 Dextrose (Dextrose 50%) 25 ml Q30M PRN IV Hypoglycemia 11/09/18 04:45 12/09/18 04:44 Dextrose (Dextrose 50%) 50 ml Q30M PRN IV Hypoglycemia 11/09/18 04:45 12/09/18 04:44 11/09/18 09:09 Enoxaparin Sodium (Lovenox) 40 mg DAILY SUBQ 11/09/18 09:00 12/09/18 08:59 11/23/18 08:34 Famotidine (Pepcid) 20 mg EVERY 12 HOURS GT 11/09/18 21:00 12/09/18 08:59 11/23/18 08:30 Furosemide (Lasix) 40 mg EVERY 12 HOURS GT 11/09/18 09:00 12/09/18 08:59 11/23/18 08:31 Hydralazine HCl (Apresoline) 5 mg EVERY 8 HOURS GT 11/09/18 06:00 12/09/18 05:59 11/23/18 05:44 Insulin Aspart (NovoLOG) Q6HR SUBQ 11/09/18 06:00 12/09/18 05:59 11/22/18 17:46 Insulin Detemir (Levemir) 4 units EVERY 12 HOURS SUBQ 11/16/18 21:00 12/09/18 08:59 11/23/18 08:35 Labetalol HCl (Normodyne) 200 mg Q8HR GT 11/09/18 06:00 12/09/18 05:59 11/23/18 05:44 Levetiracetam (Keppra) 1,500 mg Q12HR GT 11/09/18 09:00 12/09/18 08:59 11/23/18 08:31 Magnesium Hydroxide (Mom) 30 ml DAILY PRN GT Constipation 11/09/18 05:00 12/09/18 04:59 Magnesium Oxide (Mag-Ox 400mg) 400 mg EVERY 8 HOURS GT 11/09/18 14:00 12/09/18 08:59 11/23/18 05:44 Metronidazole 100 ml @ 100 mls/hr Q8HR IVPB 11/21/18 22:00 11/28/18 21:59 11/23/18 05:43 Ondansetron HCl (Zofran) 4 mg Q6H PRN GT Nausea & Vomiting 11/09/18 05:00 12/09/18 04:59 Phenobarbital (PHENobarbital) 60 mg BID GT 11/09/18 09:00 12/09/18 08:59 11/23/18 08:32 Phenytoin (Dilantin) 100 mg Q8HR GT 11/09/18 06:00 12/09/18 05:59 11/23/18 05:44 Polyethylene Glycol (Miralax) 17 gm DAILYPRN PRN GT Constipation 11/14/18 10:30 12/12/18 10:29 Polymyxin B Sulfate 152805 units/Dextrose 550 ml @ 550 mls/hr EVERY 12 HOURS IV 11/21/18 21:00 11/28/18 20:59 11/23/18 08:30 Sennosides (Senokot) 8.6 mg EVERY 12 HOURS GT 11/09/18 21:00 12/09/18 08:59 11/23/18 08:30 Valproic Acid (Depakene) 500 mg EVERY 8 HOURS GT 11/09/18 06:00 12/09/18 05:59 11/23/18 05:44 Last 24 Hour Vital Signs Date Time Temp Pulse Resp B/P (MAP) Pulse Ox O2 Delivery O2 Flow Rate FiO2 11/23/18 08:46 91 21 30 11/23/18 08:30 88 141/79 11/23/18 08:00 99.1 88 23 141/79 (99) 100 11/23/18 08:00 Mechanical Ventilator 11/23/18 08:00 30 11/23/18 06:34 86 18 30 11/23/18 05:44 95 158/79 11/23/18 05:44 158/79 11/23/18 05:04 95 17 30 11/23/18 04:00 Mechanical Ventilator 11/23/18 04:00 98.4 99 23 158/79 (105) 99 11/23/18 04:00 30 11/23/18 03:24 100 11/23/18 02:35 97 21 30 11/23/18 00:59 94 21 30 11/23/18 00:00 Mechanical Ventilator 11/23/18 00:00 100.0 94 20 113/56 (75) 100 11/22/18 23:30 90 11/22/18 22:54 92 22 30 11/22/18 22:16 100 138/76 11/22/18 22:14 141/73 11/22/18 21:00 91 22 30 11/22/18 20:00 99.9 97 22 141/73 (95) 100 11/22/18 20:00 Mechanical Ventilator 11/22/18 20:00 30 11/22/18 19:06 92 11/22/18 19:00 89 21 30 11/22/18 16:46 82 19 30 11/22/18 16:00 Mechanical Ventilator 11/22/18 16:00 30 11/22/18 16:00 99.9 95 20 128/61 (83) 100 11/22/18 15:32 89 11/22/18 15:18 99.9 11/22/18 15:12 89 18 30 11/22/18 14:34 96 135/73 11/22/18 14:34 135/73 11/22/18 13:07 94 20 30 11/22/18 12:00 95 11/22/18 12:00 100.8 95 26 152/63 (92) 100 11/22/18 12:00 Mechanical Ventilator 11/22/18 12:00 30 11/22/18 11:14 92 22 30 11/22/18 08:49 91 22 30 11/22/18 08:18 92 132/49 11/22/18 08:00 Mechanical Ventilator 11/22/18 08:00 100.6 92 23 134/49 (77) 100 11/22/18 08:00 30 11/22/18 07:38 91 20 30 11/22/18 07:30 92 11/22/18 05:40 96 149/98 11/22/18 05:39 149/98 11/22/18 05:22 91 22 30 11/22/18 04:00 Mechanical Ventilator 11/22/18 04:00 30 11/22/18 04:00 100.0 89 23 145/77 (99) 100 11/22/18 03:32 86 11/22/18 03:14 85 20 30 11/22/18 01:27 83 20 30 11/22/18 00:00 101.1 94 26 150/70 (96) 100 11/22/18 00:00 Mechanical Ventilator 11/22/18 00:00 30 11/21/18 23:34 97 11/21/18 23:11 98 25 30 11/21/18 22:40 97 119/67 11/21/18 22:40 119/67 11/21/18 21:05 97 20 30 11/21/18 20:00 101.5 89 22 119/67 (84) 96 11/21/18 20:00 Mechanical Ventilator 11/21/18 19:30 87 11/21/18 19:28 93 21 30 11/21/18 17:21 101 22 30 11/21/18 17:05 102.9 97 23 135/75 (95) 100 11/21/18 16:00 30 11/21/18 16:00 Mechanical Ventilator 11/21/18 15:29 100 20 30 11/21/18 15:29 103 11/21/18 14:41 100/52 11/21/18 14:40 100 100/52 11/21/18 13:10 100 30 30 11/21/18 12:00 30 11/21/18 12:00 100.4 94 21 100/52 (68) 100 11/21/18 12:00 Mechanical Ventilator 11/21/18 11:39 88 11/21/18 11:03 99 22 30 11/21/18 09:09 96 20 30 Intake and Output 11/22/18 11/23/18 18:59 06:59 Intake Total 1425 ml 885 ml Output Total 1301 ml Balance 124 ml 885 ml Intake Free Water 50 ml 200 ml IV Total 650 ml 100 ml Tube Feeding 325 ml 585 ml Other 400 ml Output Urine Total 1300 ml Stool Total 1 ml # Bowel Movements 1 1 Labs Test 11/21/18 04:00 11/22/18 08:30 11/23/18 04:00 White Blood Count 12.5 K/UL (4.8-10.8) 8.0 K/UL (4.8-10.8) 7.7 K/UL (4.8-10.8) Red Blood Count 3.38 M/UL (4.20-5.40) 3.12 M/UL (4.20-5.40) 3.19 M/UL (4.20-5.40) Hemoglobin 8.7 G/DL (12.0-16.0) 8.0 G/DL (12.0-16.0) 8.1 G/DL (12.0-16.0) Hematocrit 26.5 % (37.0-47.0) 24.3 % (37.0-47.0) 24.7 % (37.0-47.0) Mean Corpuscular Volume 78 FL (80-99) 78 FL (80-99) 77 FL (80-99) Mean Corpuscular Hemoglobin 25.7 PG (27.0-31.0) 25.6 PG (27.0-31.0) 25.3 PG (27.0-31.0) Mean Corpuscular Hemoglobin Concent 32.8 G/DL (32.0-36.0) 32.9 G/DL (32.0-36.0) 32.7 G/DL (32.0-36.0) Red Cell Distribution Width 23.0 % (11.6-14.8) 22.0 % (11.6-14.8) 22.2 % (11.6-14.8) Platelet Count 484 K/UL (150-450) 404 K/UL (150-450) 388 K/UL (150-450) Mean Platelet Volume 5.5 FL (6.5-10.1) 5.2 FL (6.5-10.1) 5.3 FL (6.5-10.1) Neutrophils (%) (Auto) 84.2 % (45.0-75.0) 78.3 % (45.0-75.0) 77.6 % (45.0-75.0) Lymphocytes (%) (Auto) 10.1 % (20.0-45.0) 13.3 % (20.0-45.0) 15.4 % (20.0-45.0) Monocytes (%) (Auto) 4.5 % (1.0-10.0) 6.2 % (1.0-10.0) 3.9 % (1.0-10.0) Eosinophils (%) (Auto) 0.7 % (0.0-3.0) 1.4 % (0.0-3.0) 2.4 % (0.0-3.0) Basophils (%) (Auto) 0.5 % (0.0-2.0) 0.8 % (0.0-2.0) 0.6 % (0.0-2.0) Sodium Level 138 MMOL/L (136-145) 137 MMOL/L (136-145) 136 MMOL/L (136-145) Potassium Level 3.7 MMOL/L (3.5-5.1) 3.2 MMOL/L (3.5-5.1) 3.3 MMOL/L (3.5-5.1) Chloride Level 101 MMOL/L (98-107) 100 MMOL/L (98-107) 98 MMOL/L (98-107) Carbon Dioxide Level 30 MMOL/L (21-32) 30 MMOL/L (21-32) 33 MMOL/L (21-32) Anion Gap 7 mmol/L (5-15) 7 mmol/L (5-15) 5 mmol/L (5-15) Blood Urea Nitrogen 13 mg/dL (7-18) 16 mg/dL (7-18) 13 mg/dL (7-18) Creatinine 0.3 MG/DL (0.55-1.30) 0.3 MG/DL (0.55-1.30) 0.3 MG/DL (0.55-1.30) Estimat Glomerular Filtration Rate mL/min (>60) mL/min (>60) mL/min (>60) Glucose Level 90 MG/DL (74-106) 123 MG/DL (74-106) 107 MG/DL (74-106) Calcium Level 8.2 MG/DL (8.5-10.1) 7.7 MG/DL (8.5-10.1) 8.0 MG/DL (8.5-10.1) Phosphorus Level 2.2 MG/DL (2.5-4.9) Magnesium Level 2.0 MG/DL (1.8-2.4) Total Bilirubin 0.2 MG/DL (0.2-1.0) 0.2 MG/DL (0.2-1.0) 0.2 MG/DL (0.2-1.0) Aspartate Amino Transf (AST/SGOT) 137 U/L (15-37) 153 U/L (15-37) 126 U/L (15-37) Alanine Aminotransferase (ALT/SGPT) 117 U/L (12-78) 115 U/L (12-78) 101 U/L (12-78) Alkaline Phosphatase 240 U/L (46-116) 250 U/L (46-116) 264 U/L (46-116) Total Protein 6.1 G/DL (6.4-8.2) 5.2 G/DL (6.4-8.2) 5.6 G/DL (6.4-8.2) Albumin 1.2 G/DL (3.4-5.0) 1.0 G/DL (3.4-5.0) 1.1 G/DL (3.4-5.0) Globulin 4.9 g/dL 4.2 g/dL 4.5 g/dL Albumin/Globulin Ratio 0.2 (1.0-2.7) 0.2 (1.0-2.7) 0.2 (1.0-2.7) Vancomycin Level Trough 10.1 ug/mL (5.0-12.0) Height (Feet): 5 Height (Inches): 8.00 Weight (Pounds): 210 Objective Physical Exam: Vitals: reviewed Gen: NAD HEENT: normocephalic, atraumatic Neck: non-tender, normal alignment ++ vent/trach Respiratory: normal breath sounds bilaterally CV: normal peripheral pulses, rrr Abdomen: normal bowel sounds, soft, nontender +gtube Extremities: normal range of motion Yonathan Hernandez MD Nov 23, 2018 09:07
--- NOTE | 2018-11-23 09:19 | NUR ---
NURSE NOTES: Dr. Walters at nurse station. Made aware of patient's potassium level of 3.[address] Walters acknowledged and ordered Potassium chloride 10 mEq IV x 6 and CMP tomorrow AM. Orders entered, noted, and carried out. Will continue to monitor patient.
--- NOTE | 2018-11-23 09:55 | NUR ---
NURSE NOTES: Dr. Walters at nurse station, made MD aware that order for Feosol 325mg PO TID tablet cannot be crushed. Pt is noted with MD Skyler acknowledged and ordered to change Feosol 325mg to liquid to administer via Gtube. Order entered, noted, and carried out. Will continue to monitor patient.
--- NOTE | 2018-11-23 09:56 | NUR ---
NURSE NOTES: Dr. Walters at nurse station, made MD aware that patient's is still swollen generally and that patient is taking Lasix 40mg GT Q12HR. MD acknowledged, no new orders given at this time. Will continue to monitor patient.
--- NOTE | 2018-11-23 10:01 | NUR ---
NURSE NOTES: Spoke with pharmacist regarding Feosol 325 mg GT order, clarified with pharmacist volume order of 5.417 ml to administer, pharmacist acknowledged, per pharmacist will modify order to administer as whole number. Noted. Will continue to monitor patient.
--- NOTE | 2018-11-23 10:02 | General Progress Note ---
Assessment/Plan Status: stable Assessment/Plan: (1) Abnormal LFTs ICD Codes: R94.5 - Abnormal results of liver function studies SNOMED: 178557121 (2) Decubitus skin ulcer ICD Codes: L89.90 - Pressure ulcer of unspecified site, unspecified stage SNOMED: 626134864 (3) Protein calorie malnutrition ICD Codes: E46 - Unspecified protein-calorie malnutrition SNOMED: 380348628 (4) Colon adenocarcinoma ICD Codes: C18.9 - Malignant neoplasm of colon, unspecified SNOMED: 448051774 (5) Sepsis ICD Codes: A41.9 - Sepsis, unspecified organism SNOMED: 07121227 (6) Tracheostomy dependence ICD Codes: Z93.0 - Tracheostomy status SNOMED: 037242470 (7) 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 Humphries. Assessment/Plan Assessment - Iron deficiency anemia - abnormal LFT - ? meds, passive congestion - dysphagia, s/p GT - Resp, failure, s/p Trach - hepatitis panel negative Recommendations - Continue TF - Monitor LFT - follow CBC - Conservative approach given poor health Subjective ROS Limited/Unobtainable: No Allergies: Coded Allergies: Crayfish (Unverified Allergy, Unknown, 11/11/18) Uncoded Allergies: Crawfish (Allergy, Unknown, 11/09/18) Subjective fever last night had BM Objective Last 24 Hour Vital Signs Date Time Temp Pulse Resp B/P (MAP) Pulse Ox O2 Delivery O2 Flow Rate FiO2 11/23/18 08:46 91 21 30 11/23/18 08:30 88 141/79 11/23/18 08:00 99.1 88 23 141/79 (99) 100 11/23/18 08:00 Mechanical Ventilator 11/23/18 08:00 88 11/23/18 08:00 30 11/23/18 06:34 86 18 30 11/23/18 05:44 95 158/79 11/23/18 05:44 158/79 11/23/18 05:04 95 17 30 11/23/18 04:00 Mechanical Ventilator 11/23/18 04:00 98.4 99 23 158/79 (105) 99 11/23/18 04:00 30 11/23/18 03:24 100 11/23/18 02:35 97 21 30 11/23/18 00:59 94 21 30 11/23/18 00:00 Mechanical Ventilator 11/23/18 00:00 100.0 94 20 113/56 (75) 100 11/22/18 23:30 90 11/22/18 22:54 92 22 30 11/22/18 22:16 100 138/76 11/22/18 22:14 141/73 11/22/18 21:00 91 22 30 11/22/18 20:00 99.9 97 22 141/73 (95) 100 11/22/18 20:00 Mechanical Ventilator 11/22/18 20:00 30 11/22/18 19:06 92 11/22/18 19:00 89 21 30 11/22/18 16:46 82 19 30 11/22/18 16:00 Mechanical Ventilator 11/22/18 16:00 30 11/22/18 16:00 99.9 95 20 128/61 (83) 100 11/22/18 15:32 89 11/22/18 15:18 99.9 11/22/18 15:12 89 18 30 11/22/18 14:34 96 135/73 11/22/18 14:34 135/73 11/22/18 13:07 94 20 30 11/22/18 12:00 95 11/22/18 12:00 100.8 95 26 152/63 (92) 100 11/22/18 12:00 Mechanical Ventilator 11/22/18 12:00 30 11/22/18 11:14 92 22 30 Intake and Output 11/22/18 11/23/18 18:59 06:59 Intake Total 1425 ml 885 ml Output Total 1301 ml Balance 124 ml 885 ml Intake Free Water 50 ml 200 ml IV Total 650 ml 100 ml Tube Feeding 325 ml 585 ml Other 400 ml Output Urine Total 1300 ml Stool Total 1 ml # Bowel Movements 1 1 Laboratory Tests 11/23/18 04:00: White Blood Count 7.7, Red Blood Count 3.19L, Hemoglobin 8.1L, Hematocrit 24.7L , Mean Corpuscular Volume 77L, Mean Corpuscular Hemoglobin 25.3L, Mean Corpuscular Hemoglobin Concent 32.7, Red Cell Distribution Width 22.2H, Platelet Count 388, Mean Platelet Volume 5.3L, Neutrophils (%) (Auto) 77.6H, Lymphocytes (%) (Auto) 15.4L, Monocytes (%) (Auto) 3.9, Eosinophils (%) (Auto) 2.4, Basophils (%) (Auto) 0.6, Sodium Level 136, Potassium Level 3.3L, Chloride Level 98, Carbon Dioxide Level 33H, Anion Gap 5, Blood Urea Nitrogen 13, Creatinine 0.3L, Estimat Glomerular Filtration Rate , Glucose Level 107H, Calcium Level 8.0L, Total Bilirubin 0.2, Aspartate Amino Transf (AST/SGOT) 126H , Alanine Aminotransferase (ALT/SGPT) 101H, Alkaline Phosphatase 264H, Total Protein 5.6L, Albumin 1.1L, Globulin 4.5, Albumin/Globulin Ratio 0.2L Height (Feet): 5 Height (Inches): 8.00 Weight (Pounds): 210 General Appearance: no apparent distress EENT: normal ENT inspection Neck: supple Cardiovascular: normal rate Respiratory/Chest: decreased breath sounds Abdomen: normal bowel sounds, non tender, soft Extremities: non-tender Casper Humphries MD Nov 23, 2018 10:02
--- NOTE | 2018-11-23 10:04 | General Progress Note ---
Assessment/Plan Problem List: (1) MRSA (methicillin resistant staphylococcus aureus) pneumonia ICD Codes: J15.212 - Pneumonia due to Methicillin resistant Staphylococcus aureus SNOMED: 634923045139541 (2) Fever ICD Codes: R50.9 - Fever, unspecified SNOMED: 053467725 (3) UTI (urinary tract infection) ICD Codes: N39.0 - Urinary tract infection, site not specified SNOMED: 62851863 (4) Tracheostomy dependence ICD Codes: Z93.0 - Tracheostomy status SNOMED: 920706188 (5) Ventilator dependence ICD Codes: Z99.11 - Dependence on respirator [ventilator] status SNOMED: 039823132 (6) Protein calorie malnutrition ICD Codes: E46 - Unspecified protein-calorie malnutrition SNOMED: 230181472 (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 SNOMED: 42881518 (8) Drug rash ICD Codes: L27.0 - Generalized skin eruption due to drugs and medicaments taken internally SNOMED: 66855144 (9) Gram-negative pneumonia ICD Codes: J15.6 - Pneumonia due to other Gram-negative bacteria SNOMED: 236063023 (10) Line sepsis ICD Codes: T85.79XA - Infection and inflammatory reaction due to other internal prosthetic devices, implants and grafts, initial encounter; A41.9 - Sepsis, unspecified organism SNOMED: 52696505, 649263827 (11) Bacteremia ICD Codes: R78.81 - Bacteremia SNOMED: 3468046 Status: stable Assessment/Plan: 78-year-old female who is trach dependent who was brought in by skilled nursing for sepsis and found to have UTI and bacteremia. 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 fungal uti vs colonization ID consult appreciate Rec Vancomycin and Meropenem started 11/16 ( Zosyn stopped) , fungal coverage with Diflucan added 11/18. Repeat sputum cultures with RAULTELLA PLANTICOA and PROVIDENCIA STUARTI resistant to most antibiotics Today developed morbilliform rash, has persistent fevers. Discussed with Dr. Goodwin and will DC meropenem, vancomycin and Diflucan. Started Polymyxin and flagyl 11/21. Discussed with daughter at bedside. Lenny fevers are low grade with tmax of 100.0 CT abdomen pelvis shows no acute process Removed PICC and place new line 11/13/18 Echo to eval for vegetation negative Chest x-ray reviewed: Atelectasis, repeat cxr ordered for 11/[address] abdomen pelvis per ID # Transaminitis - trend lft's - GI consult, appreciate recs - ab us: reviewed - f/u hep panel #Elevated troponin secondary to sepsis versus ACS Cardiology consult, appreciate recs Medications per cardiology #Microcytic anemia- mixed anemia of chronic inflammation and iron deficiency. Start ferrous sulfate TID #Hypertension- improved Continue current medications, hydralazine as needed hypertension #Vent dependent Pulmonary consult, appreciate recs Vent management per pulmonary #Hypokalemia Replace, continue to monitor # Chronic tongue wound Supportive care On examination the patient has a sharp lower incisor present that is likely the culprit for the tongue laceration when she was intubated in the prior hospitalization at [facility] OMFS consultation Dr. Benavides completed ( no note left ) and I spoke with him over the phone after the visit. He does not recommend any surgery. ONLY bite block MOLT if available to decompress the tongue and get the remainder teeth out of the tongue way. Keep moisture in the lips and tongue. # History of mood disorder Seen by psychiatry and on Depakote. Level was checked # Seizure history - Discussed with Dr. Eric who knew the patient from [facility] and confirmed that she did have seizure activity and was on multiple AED regimen. - Will continue Depakote ( 28 level ) and (Phenytoin 4.3 ) - no active seizure activity at this time. Keep current dose. - Both Dr. Eric and Mariana not available to come to [facility] for consult and not acute need at this time. #Diabetes Mellitus - glucose noted in the 90-110's - Decreased Levemir to 4 units q 12 hours # Disposition - SNF when cleared by ID. Still febrile. Full code timing of this note may not reflect time of encounter. I spent 40 minutes on this encounter. Great than 50 percent spent of care planning. Subjective Date patient seen: Nov 23, 2018 ROS Limited/Unobtainable: Yes Allergies: Coded Allergies: Crayfish (Unverified Allergy, Unknown, 11/11/18) Uncoded Allergies: Crawfish (Allergy, Unknown, 11/09/18) Subjective obtunded on vent, fevers subsiding. now low grade, t max 100.0 Ct abdomen pelvis done for persistent fevers. On broad spectrum antibiotics ID involved Chest xr ordered for today Objective Last 24 Hour Vital Signs Date Time Temp Pulse Resp B/P (MAP) Pulse Ox O2 Delivery O2 Flow Rate FiO2 11/23/18 08:46 91 21 30 11/23/18 08:30 88 141/79 11/23/18 08:00 99.1 88 23 141/79 (99) 100 11/23/18 08:00 Mechanical Ventilator 11/23/18 08:00 88 11/23/18 08:00 30 11/23/18 06:34 86 18 30 11/23/18 05:44 95 158/79 11/23/18 05:44 158/79 11/23/18 05:04 95 17 30 11/23/18 04:00 Mechanical Ventilator 11/23/18 04:00 98.4 99 23 158/79 (105) 99 11/23/18 04:00 30 11/23/18 03:24 100 11/23/18 02:35 97 21 30 11/23/18 00:59 94 21 30 11/23/18 00:00 Mechanical Ventilator 11/23/18 00:00 100.0 94 20 113/56 (75) 100 11/22/18 23:30 90 11/22/18 22:54 92 22 30 11/22/18 22:16 100 138/76 11/22/18 22:14 141/73 11/22/18 21:00 91 22 30 11/22/18 20:00 99.9 97 22 141/73 (95) 100 11/22/18 20:00 Mechanical Ventilator 11/22/18 20:00 30 11/22/18 19:06 92 11/22/18 19:00 89 21 30 11/22/18 16:46 82 19 30 11/22/18 16:00 Mechanical Ventilator 11/22/18 16:00 30 11/22/18 16:00 99.9 95 20 128/61 (83) 100 11/22/18 15:32 89 11/22/18 15:18 99.9 11/22/18 15:12 89 18 30 11/22/18 14:34 96 135/73 11/22/18 14:34 135/73 11/22/18 13:07 94 20 30 11/22/18 12:00 95 11/22/18 12:00 100.8 95 26 152/63 (92) 100 11/22/18 12:00 Mechanical Ventilator 11/22/18 12:00 30 11/22/18 11:14 92 22 30 Intake and Output 11/22/18 11/23/18 18:59 06:59 Intake Total 1425 ml 885 ml Output Total 1301 ml Balance 124 ml 885 ml Intake Free Water 50 ml 200 ml IV Total 650 ml 100 ml Tube Feeding 325 ml 585 ml Other 400 ml Output Urine Total 1300 ml Stool Total 1 ml # Bowel Movements 1 1 Laboratory Tests 11/23/18 04:00: White Blood Count 7.7, Red Blood Count 3.19L, Hemoglobin 8.1L, Hematocrit 24.7L , Mean Corpuscular Volume 77L, Mean Corpuscular Hemoglobin 25.3L, Mean Corpuscular Hemoglobin Concent 32.7, Red Cell Distribution Width 22.2H, Platelet Count 388, Mean Platelet Volume 5.3L, Neutrophils (%) (Auto) 77.6H, Lymphocytes (%) (Auto) 15.4L, Monocytes (%) (Auto) 3.9, Eosinophils (%) (Auto) 2.4, Basophils (%) (Auto) 0.6, Sodium Level 136, Potassium Level 3.3L, Chloride Level 98, Carbon Dioxide Level 33H, Anion Gap 5, Blood Urea Nitrogen 13, Creatinine 0.3L, Estimat Glomerular Filtration Rate , Glucose Level 107H, Calcium Level 8.0L, Total Bilirubin 0.2, Aspartate Amino Transf (AST/SGOT) 126H , Alanine Aminotransferase (ALT/SGPT) 101H, Alkaline Phosphatase 264H, Total Protein 5.6L, Albumin 1.1L, Globulin 4.5, Albumin/Globulin Ratio 0.2L Height (Feet): 5 Height (Inches): 8.00 Weight (Pounds): 210 Objective General Appearance: no apparent distress, other - unresponsive on vent EENT: PERRL/EOMI, other - enlarged tongue protruding, lower lip severely swollen Neck: supple Cardiovascular: normal rate, regular rhythm Respiratory/Chest: lungs clear Abdomen: soft Neurologic: unresponsive Skin: Morbilliform rash to bilateral upper extremities and thighs Neftaly Walters M.D. Nov 23, 2018 10:04
--- NOTE | 2018-11-23 10:28 | NUR ---
CASE MANAGEMENT: REVIEW 11/23/2018 SI:SEPSIS. T 99.1 HR 88 RR 23 B/P 141/79 SATS 100% ON MECH VENT FIO2 30 K 3.3 CO2 33 CR 0.3 GLU 107 CA 8 AST 126 ALT 101 ALP 264 IS: HYDRALAZINE GT Q8H DEPAKENE GT Q8H LASIX IV GT Q12H PEPCID GT Q12H VENOFER IV QHS KEPPRA GT Q12H FLAGYL IV Q8H POLYMIXIN B SULFATE IV Q12H SDU DCP: PATIENT TO BE DISCHARGED TO [facility] ONCE MEDICALLY CLEARED PLAN OF CARE: DC PLANNING ID CLEARANCE
--- NOTE | 2018-11-23 10:55 | Diagnostic Imaging Report ---
Indication: Reason For Exam: SOB Technique: One view of the chest Comparison: 11/20/2018 Findings: Less optimal inspiration currently, with resultant crowding of the bronchovascular markings. Interstitial congestion is probably not significantly changed, allowing for differences in exposure technique. Tracheostomy remains. Right arm PICC remains. Impression: Unchanged, over 3 days, findings as above.
[2018-11-23 11:44] VITALS: BP 144/86
[2018-11-23] MEDS: Ferrous Sulfate 300 MG/5 ML UDC GT SCH ×2 (12:03→17:05)
--- NOTE | 2018-11-23 12:46 | Infectious Diseases Prog Note ---
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 fungal uti vs colonization - ? drug fever secondary to abx - vancomycin, meropenem, diflucan discontinued - polymyxin and flagyl - avoid b-lactam abx - day # 3 abx - leukocytosis and fevers improved - picc line changed - new - CT scan without abscess or diverticulitis - monitor labs and chest x-ray - sacral wound management per surgery - please see orders - case d/w Dr. Walters at length 2. Trach-vent respiratory failure. 3. Dysphagia, G-tube. 4. Anemia. 5. Diabetes. 6. Hypertension. 7. Large tongue. 8. Anoxic brain injury. 9. Weakness. 10. Poorly responsive. 11. History of seizures. 12. History of colon adenocarcinoma. 13. Skin care protocol. 14. Allergy to crawfish. 15. Social history negative. 16. Family history noncontributory. 17. MAR was noted. 18. Case was discussed with RN. 19. Continue treatment per primary consultants. 20. Orders were ordered, entered, and noted. 21. Continue wound care protocol. 22. Continue blood sugar and blood pressure treatment per primary consultants for diabetes and hypertension. 23. vre colonization and isolation Subjective Constitutional: Reports: other - + trach and vent ; Denies: fever HEENT: Reports: congestion Respiratory: Reports: shortness of breath Cardiovascular: Reports: other - no pressors Gastrointestinal/Abdominal: Denies: nausea, vomiting, diarrhea Skin: Reports: rash - rash stable Allergies: Coded Allergies: Crayfish (Unverified Allergy, Unknown, 11/11/18) Uncoded Allergies: Crawfish (Allergy, Unknown, 11/09/18) Objective Vital Signs Last 24 Hour Vital Signs Date Time Temp Pulse Resp B/P (MAP) Pulse Ox O2 Delivery O2 Flow Rate FiO2 11/23/18 12:00 89 11/23/18 12:00 Mechanical Ventilator 11/23/18 12:00 30 11/23/18 11:44 98.2 89 20 144/86 (105) 100 11/23/18 10:31 90 22 30 11/23/18 08:46 91 21 30 9/5/19 08:30 88 141/79 11/23/18 08:00 99.1 88 23 141/79 (99) 100 11/23/18 08:00 Mechanical Ventilator 11/23/18 08:00 88 11/23/18 08:00 30 11/23/18 06:34 86 18 30 11/23/18 05:44 95 158/79 11/23/18 05:44 158/79 11/23/18 05:04 95 17 30 11/23/18 04:00 Mechanical Ventilator 11/23/18 04:00 98.4 99 23 158/79 (105) 99 11/23/18 04:00 30 11/23/18 03:24 100 11/23/18 02:35 97 21 30 11/23/18 00:59 94 21 30 11/23/18 00:00 Mechanical Ventilator 11/23/18 00:00 100.0 94 20 113/56 (75) 100 11/22/18 23:30 90 11/22/18 22:54 92 22 30 11/22/18 22:16 100 138/76 11/22/18 22:14 141/73 11/22/18 21:00 91 22 30 11/22/18 20:00 99.9 97 22 141/73 (95) 100 11/22/18 20:00 Mechanical Ventilator 11/22/18 20:00 30 11/22/18 19:06 92 11/22/18 19:00 89 21 30 11/22/18 16:46 82 19 30 11/22/18 16:00 Mechanical Ventilator 11/22/18 16:00 30 11/22/18 16:00 99.9 95 20 128/61 (83) 100 11/22/18 15:32 89 11/22/18 15:18 99.9 11/22/18 15:12 89 18 30 11/22/18 14:34 96 135/73 11/22/18 14:34 135/73 11/22/18 13:07 94 20 30 Height (Feet): 5 Height (Inches): 8.00 Weight (Pounds): 210 General Appearance: other - lethargic, on vent HEENT: normocephalic, atraumatic, anicteric Respiratory/Chest: crackles/rales, rhonchi - bilaterally Cardiovascular: normal rate, regular rhythm Abdomen: soft, non tender, no organomegaly, non distended Objective 11/11/18 - chest x-ray - IMPRESSION: 1. Hypoventilatory lungs. Elevated right hemidiaphragm. Slightly improved vascular congestion. Similar bibasilar lung atelectasis and airspace disease. 2. Query right pleural effusion. 2-D echo - no vegetations mentioned, report noted sacral x-ray - no osteo mentioned, report noted 11/14/18 - Technique: One view of the chest Comparison: November 13, 2018 post PICC radiograph Findings: Bilateral interstitial and alveolar edema versus infiltrates appear slightly worse. There is increasing obscuration of left hemidiaphragm, may reflect increasing pleural fluid as well. The heart remains enlarged. Previously demonstrated left arm PICC has been removed. Stable right arm PICC. Impression: Slightly worsening bilateral interstitial and airspace infiltrates versus edema, over one day 11/16/18 - chest x-ray Procedure: XRAY Chest 1v Indication: Dyspnea Technique: One view of the chest Comparison: November 14, 2018 Findings: Bilateral interstitial edema persists. Tracheostomy, right arm PICC remain. The heart is enlarged. Impression: Bilateral interstitial edema, unchanged over [address] abdomen and pelvis: Impression: No definite acute process Diverticulosis. No evidence of diverticulitis Extensive edema of the subcutaneous fat. 2 cm focal fluid collection/edema seen within the incision Moderate amount retained dense stool. Correlate with any clinical history of constipation Hiatal hernia. Gastrostomy Left renal parapelvic cysts Apparent prior hysterectomy Laboratory Tests Test 11/23/18 04:00 White Blood Count 7.7 K/UL (4.8-10.8) Red Blood Count 3.19 M/UL (4.20-5.40) L Hemoglobin 8.1 G/DL (12.0-16.0) L Hematocrit 24.7 % (37.0-47.0) L Mean Corpuscular Volume 77 FL (80-99) L Mean Corpuscular Hemoglobin 25.3 PG (27.0-31.0) L Mean Corpuscular Hemoglobin Concent 32.7 G/DL (32.0-36.0) Red Cell Distribution Width 22.2 % (11.6-14.8) H Platelet Count 388 K/UL (150-450) Mean Platelet Volume 5.3 FL (6.5-10.1) L Neutrophils (%) (Auto) 77.6 % (45.0-75.0) H Lymphocytes (%) (Auto) 15.4 % (20.0-45.0) L Monocytes (%) (Auto) 3.9 % (1.0-10.0) Eosinophils (%) (Auto) 2.4 % (0.0-3.0) Basophils (%) (Auto) 0.6 % (0.0-2.0) Sodium Level 136 MMOL/L (136-145) Potassium Level 3.3 MMOL/L (3.5-5.1) L Chloride Level 98 MMOL/L (98-107) Carbon Dioxide Level 33 MMOL/L (21-32) H Anion Gap 5 mmol/L (5-15) Blood Urea Nitrogen 13 mg/dL (7-18) Creatinine 0.3 MG/DL (0.55-1.30) L Estimat Glomerular Filtration Rate mL/min (>60) Glucose Level 107 MG/DL (74-106) H Calcium Level 8.0 MG/DL (8.5-10.1) L Total Bilirubin 0.2 MG/DL (0.2-1.0) Aspartate Amino Transf (AST/SGOT) 126 U/L (15-37) H Alanine Aminotransferase (ALT/SGPT) 101 U/L (12-78) H Alkaline Phosphatase 264 U/L (46-116) H Total Protein 5.6 G/DL (6.4-8.2) L Albumin 1.1 G/DL (3.4-5.0) L Globulin 4.5 g/dL Albumin/Globulin Ratio 0.2 (1.0-2.7) L Current Medications Medications (Trade) Dose Ordered Sig/Lupe Route PRN Reason Start Time Stop Time Status Last Admin Dose Admin Acetaminophen (Tylenol) 650 mg Q4H PRN GT Mild Pain/Temp > 100.5 11/09/18 05:00 12/09/18 04:59 11/22/18 14:48 Amlodipine Besylate (Norvasc) 10 mg DAILY GT 11/09/18 09:00 12/09/18 08:59 11/23/18 08:30 Bisacodyl (Dulcolax) 10 mg DAILY PRN RECTAL Constipation 11/09/18 05:00 12/09/18 04:59 Calcium Carbonate (Tums) 500 mg EVERY 8 HOURS GT 11/09/18 14:00 12/09/18 08:59 11/23/18 05:45 Chlorhexidine Gluconate (Corazon-Hex 2%) 1 applic DAILY@2000 TOPIC 11/12/18 20:00 12/12/18 19:59 11/22/18 20:29 Dextrose (Dextrose 50%) 25 ml Q30M PRN IV Hypoglycemia 11/09/18 04:45 12/09/18 04:44 Dextrose (Dextrose 50%) 50 ml Q30M PRN IV Hypoglycemia 11/09/18 04:45 12/09/18 04:44 11/09/18 09:09 Enoxaparin Sodium (Lovenox) 40 mg DAILY SUBQ 11/09/18 09:00 12/09/18 08:59 11/23/18 08:34 Famotidine (Pepcid) 20 mg EVERY 12 HOURS GT 11/09/18 21:00 12/09/18 08:59 11/23/18 08:30 Ferrous Sulfate (Feosol) 300 mg THREE TIMES A DAY GT 11/23/18 13:00 12/23/18 12:59 11/23/18 12:03 Furosemide (Lasix) 40 mg EVERY 12 HOURS GT 11/09/18 09:00 12/09/18 08:59 11/23/18 08:31 Hydralazine HCl (Apresoline) 5 mg EVERY 8 HOURS GT 11/09/18 06:00 12/09/18 05:59 11/23/18 05:44 Insulin Aspart (NovoLOG) Q6HR SUBQ 11/09/18 06:00 12/09/18 05:59 11/23/18 11:52 Insulin Detemir (Levemir) 4 units EVERY 12 HOURS SUBQ 11/16/18 21:00 12/09/18 08:59 11/23/18 08:35 Labetalol HCl (Normodyne) 200 mg Q8HR GT 11/09/18 06:00 12/09/18 05:59 11/23/18 05:44 Levetiracetam (Keppra) 1,500 mg Q12HR GT 11/09/18 09:00 12/09/18 08:59 11/23/18 08:31 Magnesium Hydroxide (Mom) 30 ml DAILY PRN GT Constipation 11/09/18 05:00 12/09/18 04:59 Magnesium Oxide (Mag-Ox 400mg) 400 mg EVERY 8 HOURS GT 11/09/18 14:00 12/09/18 08:59 11/23/18 05:44 Metronidazole 100 ml @ 100 mls/hr Q8HR IVPB 11/21/18 22:00 11/28/18 21:59 11/23/18 05:43 Ondansetron HCl (Zofran) 4 mg Q6H PRN GT Nausea & Vomiting 11/09/18 05:00 12/09/18 04:59 Phenobarbital (PHENobarbital) 60 mg BID GT 11/09/18 09:00 12/09/18 08:59 11/23/18 08:32 Phenytoin (Dilantin) 100 mg Q8HR GT 11/09/18 06:00 12/09/18 05:59 11/23/18 05:44 Polyethylene Glycol (Miralax) 17 gm DAILYPRN PRN GT Constipation 11/14/18 10:30 12/12/18 10:29 Polymyxin B Sulfate 319764 units/Dextrose 550 ml @ 550 mls/hr EVERY 12 HOURS IV 11/21/18 21:00 11/28/18 20:59 11/23/18 08:30 Potassium Chloride 100 ml @ 100 mls/hr Q1H IVPB 11/23/18 10:00 11/23/18 15:59 11/23/18 11:47 Sennosides (Senokot) 8.6 mg EVERY 12 HOURS GT 11/09/18 21:00 12/09/18 08:59 11/23/18 08:30 Valproic Acid (Depakene) 500 mg EVERY 8 HOURS GT 11/09/18 06:00 12/09/18 05:59 11/23/18 05:44 Dasha Crews MD Nov 23, 2018 12:45
--- NOTE | 2018-11-23 14:14 | Pulmonology Progress Note ---
Assessment/Plan Problems: (1) Ventilator dependence (2) Tracheostomy dependence (3) UTI (urinary tract infection) (4) Fever (5) Anoxic brain damage (6) Tongue abnormality (7) Seizure disorder (8) Colon adenocarcinoma (9) HTN (hypertension) (10) Sepsis (11) Diabetes (12) Abnormal LFTs (13) Protein calorie malnutrition (14) Gastrostomy in place (15) snf resident (16) Decubitus skin ulcer Assessment/Plan Continue ventilatory support/settings reviewed Titrate down FiO2 to keep SaO2 > 90% Optimize pulmonary hygiene/mobilize as tolerated RTC and PRN HHN's Abx per ID, F/U Cx's F/U cards recs Monitor volumes and renal function DVT Px: LMWH Needs to be seen by OMFS or DDS, needs a tooth extraction ---> if unable consider ENT evaluation FC, continue to discuss GOC Wound care Subjective Allergies: Coded Allergies: Crayfish (Unverified Allergy, Unknown, 11/11/18) Uncoded Allergies: Crawfish (Allergy, Unknown, 11/09/18) Subjective Tm 100 VSS stable on vent no sig secretions no distress CT AP noted Objective Last 24 Hour Vital Signs Date Time Temp Pulse Resp B/P (MAP) Pulse Ox O2 Delivery O2 Flow Rate FiO2 11/23/18 13:06 89 144/86 11/23/18 13:06 144/86 11/23/18 12:39 89 23 30 11/23/18 12:00 89 11/23/18 12:00 Mechanical Ventilator 11/23/18 12:00 30 11/23/18 11:44 98.2 89 20 144/86 (105) 100 11/23/18 10:31 90 22 30 11/23/18 08:46 91 21 30 11/23/18 08:30 88 141/79 11/23/18 08:00 99.1 88 23 141/79 (99) 100 11/23/18 08:00 Mechanical Ventilator 11/23/18 08:00 88 11/23/18 08:00 30 11/23/18 06:34 86 18 30 11/23/18 05:44 95 158/79 11/23/18 05:44 158/79 11/23/18 05:04 95 17 30 11/23/18 04:00 Mechanical Ventilator 11/23/18 04:00 98.4 99 23 158/79 (105) 99 11/23/18 04:00 30 11/23/18 03:24 100 11/23/18 02:35 97 21 30 11/23/18 00:59 94 21 30 11/23/18 00:00 Mechanical Ventilator 11/23/18 00:00 100.0 94 20 113/56 (75) 100 11/22/18 23:30 90 11/22/18 22:54 92 22 30 11/22/18 22:16 100 138/76 11/22/18 22:14 141/73 11/22/18 21:00 91 22 30 11/22/18 20:00 99.9 97 22 141/73 (95) 100 11/22/18 20:00 Mechanical Ventilator 11/22/18 20:00 30 11/22/18 19:06 92 11/22/18 19:00 89 21 30 11/22/18 16:46 82 19 30 11/22/18 16:00 Mechanical Ventilator 11/22/18 16:00 30 11/22/18 16:00 99.9 95 20 128/61 (83) 100 11/22/18 15:32 89 11/22/18 15:18 99.9 11/22/18 15:12 89 18 30 11/22/18 14:34 96 135/73 11/22/18 14:34 135/73 Intake and Output 11/22/18 11/23/18 18:59 06:59 Intake Total 1425 ml 885 ml Output Total 1301 ml Balance 124 ml 885 ml Intake Free Water 50 ml 200 ml IV Total 650 ml 100 ml Tube Feeding 325 ml 585 ml Other 400 ml Output Urine Total 1300 ml Stool Total 1 ml # Bowel Movements 1 1 General Appearance: no acute distress, cachetic, other - non verbal HEENT: normocephalic, atraumatic, anicteric, mucous membranes moist, status post trach, other - macroglossia Respiratory/Chest: chest wall non-tender, lungs clear, normal breath sounds, no respiratory distress Cardiovascular: normal peripheral pulses, normal rate, regular rhythm Abdomen: normal bowel sounds, soft, non tender, no organomegaly, non distended , no mass, other - GT Extremities: no cyanosis, no clubbing, no edema Laboratory Tests 11/23/18 04:00: White Blood Count 7.7, Red Blood Count 3.19L, Hemoglobin 8.1L, Hematocrit 24.7L , Mean Corpuscular Volume 77L, Mean Corpuscular Hemoglobin 25.3L, Mean Corpuscular Hemoglobin Concent 32.7, Red Cell Distribution Width 22.2H, Platelet Count 388, Mean Platelet Volume 5.3L, Neutrophils (%) (Auto) 77.6H, Lymphocytes (%) (Auto) 15.4L, Monocytes (%) (Auto) 3.9, Eosinophils (%) (Auto) 2.4, Basophils (%) (Auto) 0.6, Sodium Level 136, Potassium Level 3.3L, Chloride Level 98, Carbon Dioxide Level 33H, Anion Gap 5, Blood Urea Nitrogen 13, Creatinine 0.3L, Estimat Glomerular Filtration Rate , Glucose Level 107H, Calcium Level 8.0L, Total Bilirubin 0.2, Aspartate Amino Transf (AST/SGOT) 126H , Alanine Aminotransferase (ALT/SGPT) 101H, Alkaline Phosphatase 264H, Total Protein 5.6L, Albumin 1.1L, Globulin 4.5, Albumin/Globulin Ratio 0.2L Current Medications Medications (Trade) Dose Ordered Sig/Lupe Route PRN Reason Start Time Stop Time Status Last Admin Dose Admin Acetaminophen (Tylenol) 650 mg Q4H PRN GT Mild Pain/Temp > 100.5 11/09/18 05:00 12/09/18 04:59 11/22/18 14:48 Amlodipine Besylate (Norvasc) 10 mg DAILY GT 11/09/18 09:00 12/09/18 08:59 11/23/18 08:30 Bisacodyl (Dulcolax) 10 mg DAILY PRN RECTAL Constipation 11/09/18 05:00 12/09/18 04:59 Calcium Carbonate (Tums) 500 mg EVERY 8 HOURS GT 11/09/18 14:00 12/09/18 08:59 11/23/18 13:06 Chlorhexidine Gluconate (Corazon-Hex 2%) 1 applic DAILY@1999 TOPIC 11/12/18 20:00 12/12/18 19:59 11/22/18 20:29 Dextrose (Dextrose 50%) 25 ml Q30M PRN IV Hypoglycemia 11/09/18 04:45 12/09/18 04:44 Dextrose (Dextrose 50%) 50 ml Q30M PRN IV Hypoglycemia 11/09/18 04:45 12/09/18 04:44 11/09/18 09:09 Enoxaparin Sodium (Lovenox) 40 mg DAILY SUBQ 11/09/18 09:00 12/09/18 08:59 11/23/18 08:34 Famotidine (Pepcid) 20 mg EVERY 12 HOURS GT 11/09/18 21:00 12/09/18 08:59 11/23/18 08:30 Ferrous Sulfate (Feosol) 300 mg THREE TIMES A DAY GT 11/23/18 13:00 12/23/18 12:59 11/23/18 12:03 Furosemide (Lasix) 40 mg EVERY 12 HOURS GT 11/09/18 09:00 12/09/18 08:59 11/23/18 08:31 Hydralazine HCl (Apresoline) 5 mg EVERY 8 HOURS GT 11/09/18 06:00 12/09/18 05:59 11/23/18 13:06 Insulin Aspart (NovoLOG) Q6HR SUBQ 11/09/18 06:00 12/09/18 05:59 11/23/18 11:52 Insulin Detemir (Levemir) 4 units EVERY 12 HOURS SUBQ 11/16/18 21:00 12/09/18 08:59 11/23/18 08:35 Labetalol HCl (Normodyne) 200 mg Q8HR GT 11/09/18 06:00 12/09/18 05:59 11/23/18 13:06 Levetiracetam (Keppra) 1,500 mg Q12HR GT 11/09/18 09:00 12/09/18 08:59 11/23/18 08:31 Magnesium Hydroxide (Mom) 30 ml DAILY PRN GT Constipation 11/09/18 05:00 12/09/18 04:59 Magnesium Oxide (Mag-Ox 400mg) 400 mg EVERY 8 HOURS GT 11/09/18 14:00 12/09/18 08:59 11/23/18 13:06 Metronidazole 100 ml @ 100 mls/hr Q8HR IVPB 11/21/18 22:00 11/28/18 21:59 11/23/18 13:49 Ondansetron HCl (Zofran) 4 mg Q6H PRN GT Nausea & Vomiting 11/09/18 05:00 12/09/18 04:59 Phenobarbital (PHENobarbital) 60 mg BID GT 11/09/18 09:00 12/09/18 08:59 11/23/18 08:32 Phenytoin (Dilantin) 100 mg Q8HR GT 11/09/18 06:00 12/09/18 05:59 11/23/18 13:06 Polyethylene Glycol (Miralax) 17 gm DAILYPRN PRN GT Constipation 11/14/18 10:30 12/12/18 10:29 Polymyxin B Sulfate 261436 units/Dextrose 550 ml @ 550 mls/hr EVERY 12 HOURS IV 11/21/18 21:00 11/28/18 20:59 11/23/18 08:30 Potassium Chloride 100 ml @ 100 mls/hr Q1H IVPB 11/23/18 10:00 11/23/18 15:59 11/23/18 13:07 Sennosides (Senokot) 8.6 mg EVERY 12 HOURS GT 11/09/18 21:00 12/09/18 08:59 11/23/18 08:30 Valproic Acid (Depakene) 500 mg EVERY 8 HOURS GT 11/09/18 06:00 12/09/18 05:59 11/23/18 13:07 Balbir Dejesus MD Nov 23, 2018 14:14
--- NOTE | 2018-11-23 15:46 | Surgery Progress Note ---
Surgery Progress Note Subjective Additional Comments labs improved exam stable on vent support wounds dressings changed otherwise stable. Objective Last 24 Hour Vital Signs Date Time Temp Pulse Resp B/P (MAP) Pulse Ox O2 Delivery O2 Flow Rate FiO2 11/23/18 14:33 88 19 30 11/23/18 13:06 89 144/86 11/23/18 13:06 144/86 11/23/18 12:39 89 23 30 11/23/18 12:00 89 11/23/18 12:00 Mechanical Ventilator 11/23/18 12:00 30 11/23/18 11:44 98.2 89 20 144/86 (105) 100 11/23/18 10:31 90 22 30 11/23/18 08:46 91 21 30 11/23/18 08:30 88 141/79 11/23/18 08:00 99.1 88 23 141/79 (99) 100 11/23/18 08:00 Mechanical Ventilator 11/23/18 08:00 88 11/23/18 08:00 30 11/23/18 06:34 86 18 30 11/23/18 05:44 95 158/79 11/23/18 05:44 158/79 11/23/18 05:04 95 17 30 11/23/18 04:00 Mechanical Ventilator 11/23/18 04:00 98.4 99 23 158/79 (105) 99 11/23/18 04:00 30 11/23/18 03:24 100 11/23/18 02:35 97 21 30 11/23/18 00:59 94 21 30 11/23/18 00:00 Mechanical Ventilator 11/23/18 00:00 100.0 94 20 113/56 (75) 100 11/22/18 23:30 90 11/22/18 22:54 92 22 30 11/22/18 22:16 100 138/76 11/22/18 22:14 141/73 11/22/18 21:00 91 22 30 11/22/18 20:00 99.9 97 22 141/73 (95) 100 11/22/18 20:00 Mechanical Ventilator 11/22/18 20:00 30 11/22/18 19:06 92 11/22/18 19:00 89 21 30 11/22/18 16:46 82 19 30 11/22/18 16:00 Mechanical Ventilator 11/22/18 16:00 30 11/22/18 16:00 99.9 95 20 128/61 (83) 100 I&O Intake and Output 11/22/18 11/23/18 19:00 07:00 Intake Total 1490 ml 820 ml Output Total 1301 ml Balance 189 ml 820 ml Intake Free Water 50 ml 200 ml IV Total 650 ml 100 ml Tube Feeding 390 ml 520 ml Other 400 ml Output Urine Total 1300 ml Stool Total 1 ml # Bowel Movements 1 1 Dressing: saturated Wound: clean Drains: other Cardiovascular: RSR Respiratory: clear, decreased breath sounds, other Abdomen: soft, non-tender, present bowel sounds, other, non-distended Extremities: no cyanosis, other Laboratory Tests Test 11/23/18 04:00 White Blood Count 7.7 K/UL (4.8-10.8) Red Blood Count 3.19 M/UL (4.20-5.40) L Hemoglobin 8.1 G/DL (12.0-16.0) L Hematocrit 24.7 % (37.0-47.0) L Mean Corpuscular Volume 77 FL (80-99) L Mean Corpuscular Hemoglobin 25.3 PG (27.0-31.0) L Mean Corpuscular Hemoglobin Concent 32.7 G/DL (32.0-36.0) Red Cell Distribution Width 22.2 % (11.6-14.8) H Platelet Count 388 K/UL (150-450) Mean Platelet Volume 5.3 FL (6.5-10.1) L Neutrophils (%) (Auto) 77.6 % (45.0-75.0) H Lymphocytes (%) (Auto) 15.4 % (20.0-45.0) L Monocytes (%) (Auto) 3.9 % (1.0-10.0) Eosinophils (%) (Auto) 2.4 % (0.0-3.0) Basophils (%) (Auto) 0.6 % (0.0-2.0) Sodium Level 136 MMOL/L (136-145) Potassium Level 3.3 MMOL/L (3.5-5.1) L Chloride Level 98 MMOL/L (98-107) Carbon Dioxide Level 33 MMOL/L (21-32) H Anion Gap 5 mmol/L (5-15) Blood Urea Nitrogen 13 mg/dL (7-18) Creatinine 0.3 MG/DL (0.55-1.30) L Estimat Glomerular Filtration Rate mL/min (>60) Glucose Level 107 MG/DL (74-106) H Calcium Level 8.0 MG/DL (8.5-10.1) L Total Bilirubin 0.2 MG/DL (0.2-1.0) Aspartate Amino Transf (AST/SGOT) 126 U/L (15-37) H Alanine Aminotransferase (ALT/SGPT) 101 U/L (12-78) H Alkaline Phosphatase 264 U/L (46-116) H Total Protein 5.6 G/DL (6.4-8.2) L Albumin 1.1 G/DL (3.4-5.0) L Globulin 4.5 g/dL Albumin/Globulin Ratio 0.2 (1.0-2.7) L Plan Problems: (1) Fever (2) Tongue abnormality Assessment & Plan: patients jaw clenched closed and tongue has been stuck for some time. tongue split from middle teeth and now in two. edema and unable to reduce keep tongue moist. apply lube jelly prn dryness. will monitor do not recommend surgical intervention for this current medical condition (3) Tracheostomy dependence (4) Sepsis Assessment & Plan: gb no stones 6mm polyp no acute surgical intervention planned trend labs improving labs improved DAILY ESTIMATED NEEDS: Needs based on Critical care, sepsis, wound 60kg adj 22-30 kcals/kg [id number] total kcals 1.25-2 g protein/kg 75-120 g total protein Fluid per MD, on lasix NUTRITION DIAGNOSIS: * Swallowing difficulty r/t respiratory status as evidenced by pt is vent dep via trach and PEG dep. * Increased kcal and pro needs r/t wound healing and sepsis as evidenced by pt w/ sacral and R heel wounds, febrile (Tmax 101.5). CURRENT TF: Jevity 1.2 @50 ml/hr x16 hrs ENTERAL NUTRITION RECOMMENDATIONS: Glucerna 1.2 @65ml/hr x18 hrs + Prosource x1 daily to provide 1170ml, 1404 kcal, 70g pro + 11g pro, 942 free H2O - REC TF CHANGE AND INCREASE TO BETTER MEET EST NEEDS - TF TO BE HELD FOR ONE HR BEFORE AND AFTER DILANTIN MEDS - START @20ML/HR, ADVANCE TOLERATED 15ML/HR Q4-6 HRS TO GOAL - FLUSH PER , HOB OVRE 30 DEGREES ADDITIONAL RECOMMENDATIONS: 1) CALIBRATED BED SCALE W/ ADDED P200 MATTRESS + PUMP 2) ON LASIX, MONITOR LYTES AND HYDRATION STATUS DAILY 3) TF TO RUN A MAX OF 18 HRS/DAY W/ DILANTIN TID PER PHARMACY 4) REC TF CHANGE TO CARB CONTROL FORMULA 5) WOUND CARE: ADD CHAYITO BID + VIT C 250MG DAILY (5) Fever Assessment & Plan: CT A/P with findings Impression: No definite acute process Diverticulosis. No evidence of diverticulitis Extensive edema of the subcutaneous fat. 2 cm focal fluid collection/edema seen within the incision Moderate amount retained dense stool. Correlate with any clinical history of constipation Hiatal hernia. Gastrostomy Left renal parapelvic cysts Apparent prior hysterectomy (6) Decubitus skin ulcer Assessment & Plan: Pt presented on admission with full thickness sacral pressure injury.Base of wound is 20% necrotic , 80% slough. borders are macerated . Mild odor noted. (L)8.4cm x (W) 6.5cm. Periwound skin tone is darker without erythema,induration or elevation in skin temp. Both heels are non -blanchable and both are fluctuant when palpated. Tx.Plan: Clean wound with saline. Apply Therahoney. Aply Moisture Barrier paste periwound. Cover with Optifoam drsg. Change every 3 days and prn. Apply Cavilon Skin BArrier to both heels. Cover each heel with Optifoam drsg. Change every 7 days and prn. APM/DEIRDRE mattress overlay. Reposition at least every 2hours or as tolerated. Off-load heels with pillow. will follow with recs thank you Preet Hylton Nov 23, 2018 15:46
[2018-11-23 15:58] VITALS: BP 138/74
--- NOTE | 2018-11-23 19:19 | NUR ---
HAND-OFF: Report given to CHARLEE Velazquez.
--- NOTE | 2018-11-23 19:20 | NUR ---
NURSE NOTES: Received patient from Jani RN. Patient is obtunded and receiving oxygen via trach to vent, settings: Shiley 8, AC 14, TV 375, FiO2 30%, and PEEP 5. G-tube is patent and receiving Jevity 1.2 @ 65cc/hr, patient tolerating well, no residuals. IV site is Right Upper Arm PICC, patent and asymptomatic. Bed is locked, placed in lowest position, side rails up x3, bed alarm on, call light within reach. Will continue to monitor.
[2018-11-23 20:00] VITALS: BP 146/70
[2018-11-23] MEDS: Dyna-Hex 2% Top Sol 2oz TOPIC SCH (20:16)
[2018-11-23] MEDS: Acetaminophen 650mg/20.3ml GT PRN (20:16)
--- NOTE | 2018-11-23 22:00 | NUR ---
NURSE NOTES: Labetalol and Hydralazine were held due to patients blood pressure being 95/53. Will continue to monitor.
[2018-11-24] VITALS: BP 140/107
[2018-11-24 03:31] LABS: BASOPHILS % (AUTO) 0.3 % (0.0-2.0); EOSINOPHILS % (AUTO) 2.7 % (0.0-3.0); HEMATOCRIT 27.6 % (37.0-47.0); LYMPHOCYTES % (AUTO) 8.7 % (20.0-45.0); MEAN CORPUSCULAR VOLUME 77 FL (80-99); MONOCYTES % (AUTO) 3.5 % (1.0-10.0); NEUTROPHILS % (AUTO) 84.7 % (45.0-75.0); PLATELET COUNT 402 K/UL (150-450); RED BLOOD COUNT 3.59 M/UL (4.20-5.40); RED CELL DISTRIBUTION WIDTH 21.6 % (11.6-14.8); WHITE BLOOD COUNT 13.4 K/UL (4.8-10.8)
[2018-11-24 03:47] LABS: ALANINE AMINOTRANSFERASE 93 U/L (12-78); ALBUMIN 1.2 G/DL (3.4-5.0); ALBUMIN/GLOBULIN RATIO 0.2 (1.0-2.7); ALKALINE PHOSPHATASE 300 U/L (46-116); ANION GAP 6 mmol/L (5-15); ASPARTATE AMINO TRANSFERASE 116 U/L (15-37); BILIRUBIN,TOTAL 0.2 MG/DL (0.2-1.0); BLOOD UREA NITROGEN 11 mg/dL (7-18); CALCIUM 8.3 MG/DL (8.5-10.1); CARBON DIOXIDE 32 MMOL/L (21-32); CHLORIDE 96 MMOL/L (98-107); CREATININE 0.3 MG/DL (0.55-1.30); SODIUM 134 MMOL/L (136-145)
[2018-11-24 04:00] VITALS: BP 176/92
[2018-11-24] MEDS: NovoLOG Insulin Flexpen SUBQ SCH ×4 (06:00→23:43)
[2018-11-24] MEDS: Phenytoin Susp 100mg/4ml GT SCH ×3 (06:00→21:09)
[2018-11-24] MEDS: Valproic Acid 250mg/5ml Liquid GT SCH ×3 (06:00→21:06)
[2018-11-24] MEDS: Tums 500mg GT SCH ×3 (06:01→21:05)
[2018-11-24] MEDS: HydrALAZINE 10mg Tab GT SCH ×3 (06:01→21:05)
[2018-11-24] MEDS: Labetalol 200mg tab GT SCH ×3 (06:01→21:05)
[2018-11-24] MEDS: Magnesium Oxide 400mg tab GT SCH ×3 (06:01→21:05)
--- NOTE | 2018-11-24 06:37 | NUR ---
RESPIRATORY NOTE: Received pt on trach Shiley, cuffed size 8.0, secured by trach tie and trach guard, with current vent settings: AC 14-375ml-30%FiO2- peep 5. Pt is trach dependent, unable to follow commands, resting in bed comfortably, no SOB or resp distress noted. Juan clear diminished breath sounds heard upon auscultation, suctioned moderate amounts of thick white/mccauley/yellow secretions without incidents. Noted a wound on the right side below the trach, covered by wound tape. Alarms are set and audible, vent is plugged into the red outlet, ambu bag and trach kit are at bedside. Will continue to monitor and sxn q2h ans as needed.
--- NOTE | 2018-11-24 06:58 | NUR ---
HAND-OFF: Report given to Jani DESHPANDE.
--- NOTE | 2018-11-24 07:15 | NUR ---
NURSE NOTES: Received report from CHARLEE Velazquez. Patient is resting in bed, in stable condition. No s/sx of SOB, breathing is even and unlabored. Denies any presence of pain or discomfort at this time. Bed is in lowest position, brakes engaged. Call light is kept within easy reach. Will continue to monitor patient.
[2018-11-24] MEDS: Acetaminophen 650mg/20.3ml GT PRN ×2 (07:42→21:50)
[2018-11-24 07:51] VITALS: BP 126/76
[2018-11-24] MEDS: Ferrous Sulfate 300 MG/5 ML UDC GT SCH ×3 (08:25→17:05)
[2018-11-24] MEDS: Polymyxin B Sulfate 500,000 UNITS in D5W 500ml 550 ML IV SCH ×2 (08:25→21:07)
[2018-11-24] MEDS: Furosemide 40mg tab GT SCH ×2 (08:25→21:06)
[2018-11-24] MEDS: Sennosides 8.6mg tab GT SCH ×2 (08:25→21:07)
[2018-11-24] MEDS: levETIRAcetam 500mg/5ml Liquid GT SCH ×2 (08:26→21:06)
[2018-11-24] MEDS: PHENobarbital Elixir 30mg/7.5ml GT SCH ×2 (08:26→17:06)
[2018-11-24] MEDS: Enoxaparin 40mg Inj SUBQ SCH (08:29)
[2018-11-24] MEDS: Levemir Flexpen SUBQ SCH ×2 (08:30→21:50)
--- NOTE | 2018-11-24 09:15 | Hematology/Onc Progress Note ---
Assessment/Plan Assessment/Plan # Anemia of chronic disease due to underlying chronic medical issues, multifactorial --> Anemia workup has been reviewed and cw acd --> No evidence of hemolysis is noted, peripheral smear has been reviewed. --> Hgb goal >7. Transfuse prn. --> hgb trend 9.1-->8.9-->9-->8.9-->8.9->7.8->8.7-->9 --> Epogen or iron indication prn --> Medications have been reviewed --> low threshold for gi evaluation in case has occult + --> bone marrow biopsy is not indicated given the other more likely causes # Leukocytosis iwth Sepsis secondary to UTI, GPC Staph Epidermidis bacteremia, Line associated infection - patient arrived to the Hospital with PICC --> as per ID consult appreciate Rec --> Continue antibiotics per ID: Continue Zosyn and vancomycin, anti fungal added--> kaykay/vanc, diflucan-->flagyl, vanc --> imaging noted # Thrombocytosis is likely due to underlying reactive process --> if doesn't improve send off jak2 --> plt count 641k-->402k # Transaminitis --> trend lft's --> GI consult, apprec recs --> ab us: reviewed # Elevated troponin secondary to sepsis versus ACS --> as per Cardiology consult, appreciate recs --> now better # Hypertension- improved --> sbp goal <150 # 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 GREATLY APPRECIATE CONSULTATION. Subjective Allergies: Coded Allergies: Crayfish (Unverified Allergy, Unknown, 11/11/18) Uncoded Allergies: Crawfish (Allergy, Unknown, 11/09/18) Subjective 11/14: no events to report, labs relatively stable, hgb 8.9, on vent 11/15: no bleeding, no chills, labs reviewed, no major changes 11/16: cxr-->bilateral interstitial edema, vs stable, on abx, on vent, contact isolation 11/17: labs reviewed, on abx, vs stable, on vent, no distress 11/18: remains on gtube feeds, is on vent, on kaykay/vanc 11/20: no events, no bleeding, kaykay, vanc, diflucan, no f/c 11/21: remains on vent, gtube feeds, no major changes, no bleeding 11/22: ct abdomen pelvis w/contrast reviewed, vs stable, no acute events, labs reviewed, remains intubated, low grade fever 11/23: reviewed meds, abx have been changed, remains altered currently 11/24: labs reviewed, vs stable, med reviewed, no sob, no distress, on vent Objective Objective Current Medications Medications (Trade) Dose Ordered Sig/Lupe Route PRN Reason Start Time Stop Time Status Last Admin Dose Admin Acetaminophen (Tylenol) 650 mg Q4H PRN GT Mild Pain/Temp > 100.5 11/09/18 05:00 12/09/18 04:59 11/24/18 07:42 Amlodipine Besylate (Norvasc) 10 mg DAILY GT 11/09/18 09:00 12/09/18 08:59 11/24/18 08:25 Bisacodyl (Dulcolax) 10 mg DAILY PRN RECTAL Constipation 11/09/18 05:00 12/09/18 04:59 Calcium Carbonate (Tums) 500 mg EVERY 8 HOURS GT 11/09/18 14:00 12/09/18 08:59 11/24/18 06:01 Chlorhexidine Gluconate (Corazon-Hex 2%) 1 applic DAILY@1999 TOPIC 11/12/18 20:00 12/12/18 19:59 11/23/18 20:16 Dextrose (Dextrose 50%) 25 ml Q30M PRN IV Hypoglycemia 11/09/18 04:45 12/09/18 04:44 Dextrose (Dextrose 50%) 50 ml Q30M PRN IV Hypoglycemia 11/09/18 04:45 12/09/18 04:44 11/09/18 09:09 Enoxaparin Sodium (Lovenox) 40 mg DAILY SUBQ 11/09/18 09:00 12/09/18 08:59 11/24/18 08:29 Famotidine (Pepcid) 20 mg EVERY 12 HOURS GT 11/09/18 21:00 12/09/18 08:59 11/24/18 08:25 Ferrous Sulfate (Feosol) 300 mg THREE TIMES A DAY GT 11/23/18 13:00 12/23/18 12:59 11/24/18 08:25 Furosemide (Lasix) 40 mg EVERY 12 HOURS GT 11/09/18 09:00 12/09/18 08:59 11/24/18 08:25 Hydralazine HCl (Apresoline) 5 mg EVERY 8 HOURS GT 11/09/18 06:00 12/09/18 05:59 11/24/18 06:01 Insulin Aspart (NovoLOG) Q6HR SUBQ 11/09/18 06:00 12/09/18 05:59 11/23/18 11:52 Insulin Detemir (Levemir) 4 units EVERY 12 HOURS SUBQ 11/16/18 21:00 12/09/18 08:59 11/24/18 08:30 Labetalol HCl (Normodyne) 200 mg Q8HR GT 11/09/18 06:00 12/09/18 05:59 11/24/18 06:01 Levetiracetam (Keppra) 1,500 mg Q12HR GT 11/09/18 09:00 12/09/18 08:59 11/24/18 08:26 Magnesium Hydroxide (Mom) 30 ml DAILY PRN GT Constipation 11/09/18 05:00 12/09/18 04:59 Magnesium Oxide (Mag-Ox 400mg) 400 mg EVERY 8 HOURS GT 11/09/18 14:00 12/09/18 08:59 11/24/18 06:01 Metronidazole 100 ml @ 100 mls/hr Q8HR IVPB 11/21/18 22:00 11/28/18 21:59 11/24/18 06:06 Ondansetron HCl (Zofran) 4 mg Q6H PRN GT Nausea & Vomiting 11/09/18 05:00 12/09/18 04:59 Phenobarbital (PHENobarbital) 60 mg BID GT 11/09/18 09:00 12/09/18 08:59 11/24/18 08:26 Phenytoin (Dilantin) 100 mg Q8HR GT 11/09/18 06:00 12/09/18 05:59 11/24/18 06:00 Polyethylene Glycol (Miralax) 17 gm DAILYPRN PRN GT Constipation 11/14/18 10:30 12/12/18 10:29 Polymyxin B Sulfate 687674 units/Dextrose 550 ml @ 550 mls/hr EVERY 12 HOURS IV 11/21/18 21:00 11/28/18 20:59 11/24/18 08:25 Sennosides (Senokot) 8.6 mg EVERY 12 HOURS GT 11/09/18 21:00 12/09/18 08:59 11/24/18 08:25 Valproic Acid (Depakene) 500 mg EVERY 8 HOURS GT 11/09/18 06:00 12/09/18 05:59 11/24/18 06:00 Last 24 Hour Vital Signs Date Time Temp Pulse Resp B/P (MAP) Pulse Ox O2 Delivery O2 Flow Rate FiO2 11/24/18 09:00 99.9 11/24/18 08:25 99 126/76 11/24/18 08:12 101.1 11/24/18 08:00 98 11/24/18 08:00 30 11/24/18 08:00 Mechanical Ventilator 11/24/18 07:51 102.6 99 20 126/76 (93) 100 11/24/18 06:37 101 25 30 11/24/18 06:01 112 176/92 11/24/18 06:01 176/192 11/24/18 05:06 92 19 30 11/24/18 04:00 98.2 99 20 176/92 (120) 100 11/24/18 04:00 Mechanical Ventilator 11/24/18 04:00 30 11/24/18 03:33 107 11/24/18 02:33 102 22 30 11/24/18 01:02 97 20 30 11/24/18 00:00 Mechanical Ventilator 11/24/18 00:00 98.2 91 20 140/107 (118) 100 11/23/18 23:34 89 11/23/18 22:54 85 22 30 11/23/18 22:00 81 95/53 11/23/18 22:00 95/53 11/23/18 21:04 96 18 30 11/23/18 20:00 101.5 99 21 146/70 (95) 100 11/23/18 20:00 Mechanical Ventilator 11/23/18 20:00 30 11/23/18 19:39 97 11/23/18 19:09 103 24 30 11/23/18 16:38 92 18 30 11/23/18 16:00 89 11/23/18 15:58 99.0 89 20 138/74 (95) 100 11/23/18 15:58 30 11/23/18 15:58 Mechanical Ventilator 11/23/18 14:33 88 19 30 11/23/18 13:06 89 144/86 11/23/18 13:06 144/86 11/23/18 12:39 89 23 30 11/23/18 12:00 89 11/23/18 12:00 Mechanical Ventilator 11/23/18 12:00 30 11/23/18 11:44 98.2 89 20 144/86 (105) 100 11/23/18 10:31 90 22 30 11/23/18 08:46 91 21 30 11/23/18 08:30 88 141/79 11/23/18 08:00 99.1 88 23 141/79 (99) 100 11/23/18 08:00 Mechanical Ventilator 11/23/18 08:00 88 11/23/18 08:00 30 11/23/18 06:34 86 18 30 11/23/18 05:44 95 158/79 11/23/18 05:44 158/79 11/23/18 05:04 95 17 30 11/23/18 04:00 Mechanical Ventilator 11/23/18 04:00 98.4 99 23 158/79 (105) 99 11/23/18 04:00 30 11/23/18 03:24 100 11/23/18 02:35 97 21 30 11/23/18 00:59 94 21 30 11/23/18 00:00 Mechanical Ventilator 11/23/18 00:00 100.0 94 20 113/56 (75) 100 11/22/18 23:30 90 11/22/18 22:54 92 22 30 11/22/18 22:16 100 138/76 11/22/18 22:14 141/73 11/22/18 21:00 91 22 30 11/22/18 20:00 99.9 97 22 141/73 (95) 100 11/22/18 20:00 Mechanical Ventilator 11/22/18 20:00 30 11/22/18 19:06 92 11/22/18 19:00 89 21 30 11/22/18 16:46 82 19 30 11/22/18 16:00 Mechanical Ventilator 11/22/18 16:00 30 11/22/18 16:00 99.9 95 20 128/61 (83) 100 11/22/18 15:32 89 11/22/18 15:12 89 18 30 11/22/18 14:34 96 135/73 11/22/18 14:34 135/73 11/22/18 13:07 94 20 30 11/22/18 12:00 95 11/22/18 12:00 100.8 95 26 152/63 (92) 100 11/22/18 12:00 Mechanical Ventilator 11/22/18 12:00 30 11/22/18 11:14 92 22 30 Intake and Output 11/23/18 11/24/18 19:00 07:00 Intake Total 1700 ml 455 ml Output Total 2500 ml 1900 ml Balance -800 ml -1445 ml Intake Free Water 200 ml IV Total 850 ml Tube Feeding 650 ml 455 ml Output Urine Total 2500 ml 1900 ml # Bowel Movements 1 2 Labs Test 11/22/18 08:30 11/23/18 04:00 11/24/18 03:20 White Blood Count 8.0 K/UL (4.8-10.8) 7.7 K/UL (4.8-10.8) 13.4 K/UL (4.8-10.8) Red Blood Count 3.12 M/UL (4.20-5.40) 3.19 M/UL (4.20-5.40) 3.59 M/UL (4.20-5.40) Hemoglobin 8.0 G/DL (12.0-16.0) 8.1 G/DL (12.0-16.0) 9.0 G/DL (12.0-16.0) Hematocrit 24.3 % (37.0-47.0) 24.7 % (37.0-47.0) 27.6 % (37.0-47.0) Mean Corpuscular Volume 78 FL (80-99) 77 FL (80-99) 77 FL (80-99) Mean Corpuscular Hemoglobin 25.6 PG (27.0-31.0) 25.3 PG (27.0-31.0) 25.1 PG (27.0-31.0) Mean Corpuscular Hemoglobin Concent 32.9 G/DL (32.0-36.0) 32.7 G/DL (32.0-36.0) 32.5 G/DL (32.0-36.0) Red Cell Distribution Width 22.0 % (11.6-14.8) 22.2 % (11.6-14.8) 21.6 % (11.6-14.8) Platelet Count 404 K/UL (150-450) 388 K/UL (150-450) 402 K/UL (150-450) Mean Platelet Volume 5.2 FL (6.5-10.1) 5.3 FL (6.5-10.1) 5.3 FL (6.5-10.1) Neutrophils (%) (Auto) 78.3 % (45.0-75.0) 77.6 % (45.0-75.0) 84.7 % (45.0-75.0) Lymphocytes (%) (Auto) 13.3 % (20.0-45.0) 15.4 % (20.0-45.0) 8.7 % (20.0-45.0) Monocytes (%) (Auto) 6.2 % (1.0-10.0) 3.9 % (1.0-10.0) 3.5 % (1.0-10.0) Eosinophils (%) (Auto) 1.4 % (0.0-3.0) 2.4 % (0.0-3.0) 2.7 % (0.0-3.0) Basophils (%) (Auto) 0.8 % (0.0-2.0) 0.6 % (0.0-2.0) 0.3 % (0.0-2.0) Sodium Level 137 MMOL/L (136-145) 136 MMOL/L (136-145) 134 MMOL/L (136-145) Potassium Level 3.2 MMOL/L (3.5-5.1) 3.3 MMOL/L (3.5-5.1) 4.0 MMOL/L (3.5-5.1) Chloride Level 100 MMOL/L (98-107) 98 MMOL/L (98-107) 96 MMOL/L (98-107) Carbon Dioxide Level 30 MMOL/L (21-32) 33 MMOL/L (21-32) 32 MMOL/L (21-32) Anion Gap 7 mmol/L (5-15) 5 mmol/L (5-15) 6 mmol/L (5-15) Blood Urea Nitrogen 16 mg/dL (7-18) 13 mg/dL (7-18) 11 mg/dL (7-18) Creatinine 0.3 MG/DL (0.55-1.30) 0.3 MG/DL (0.55-1.30) 0.3 MG/DL (0.55-1.30) Estimat Glomerular Filtration Rate mL/min (>60) mL/min (>60) mL/min (>60) Glucose Level 123 MG/DL (74-106) 107 MG/DL (74-106) 106 MG/DL (74-106) Calcium Level 7.7 MG/DL (8.5-10.1) 8.0 MG/DL (8.5-10.1) 8.3 MG/DL (8.5-10.1) Total Bilirubin 0.2 MG/DL (0.2-1.0) 0.2 MG/DL (0.2-1.0) 0.2 MG/DL (0.2-1.0) Aspartate Amino Transf (AST/SGOT) 153 U/L (15-37) 126 U/L (15-37) 116 U/L (15-37) Alanine Aminotransferase (ALT/SGPT) 115 U/L (12-78) 101 U/L (12-78) 93 U/L (12-78) Alkaline Phosphatase 250 U/L (46-116) 264 U/L (46-116) 300 U/L (46-116) Total Protein 5.2 G/DL (6.4-8.2) 5.6 G/DL (6.4-8.2) 6.1 G/DL (6.4-8.2) Albumin 1.0 G/DL (3.4-5.0) 1.1 G/DL (3.4-5.0) 1.2 G/DL (3.4-5.0) Globulin 4.2 g/dL 4.5 g/dL 4.9 g/dL Albumin/Globulin Ratio 0.2 (1.0-2.7) 0.2 (1.0-2.7) 0.2 (1.0-2.7) Vancomycin Level Trough 10.1 ug/mL (5.0-12.0) Height (Feet): 5 Height (Inches): 8.00 Weight (Pounds): 210 Objective Physical Exam: Vitals: reviewed Gen: NAD HEENT: normocephalic, atraumatic Neck: non-tender, normal alignment ++ vent/trach Respiratory: normal breath sounds bilaterally CV: normal peripheral pulses, rrr Abdomen: normal bowel sounds, soft, nontender +gtube Extremities: normal range of motion Yonathan Hernandez MD Nov 24, 2018 09:15
--- NOTE | 2018-11-24 09:25 | General Progress Note ---
Assessment/Plan Status: stable Assessment/Plan: (1) Abnormal LFTs ICD Codes: R94.5 - Abnormal results of liver function studies SNOMED: 322371810 (2) Decubitus skin ulcer ICD Codes: L89.90 - Pressure ulcer of unspecified site, unspecified stage SNOMED: 136909067 (3) Protein calorie malnutrition ICD Codes: E46 - Unspecified protein-calorie malnutrition SNOMED: 806536287 (4) Colon adenocarcinoma ICD Codes: C18.9 - Malignant neoplasm of colon, unspecified SNOMED: 040994236 (5) Sepsis ICD Codes: A41.9 - Sepsis, unspecified organism SNOMED: 58702017 (6) Tracheostomy dependence ICD Codes: Z93.0 - Tracheostomy status SNOMED: 350328982 (7) Gastrostomy in place ICD Codes: Z93.1 - Gastrostomy status SNOMED: 33651713, 65388206, 578797919 Status: stable Status Narrative Discussed with Dr. Humphries. Assessment/Plan Assessment - Iron deficiency anemia - abnormal LFT - ? meds, passive congestion - dysphagia, s/p GT - Resp, failure, s/p Trach - hepatitis panel negative Recommendations - Continue TF - Monitor LFT - follow CBC - Conservative approach given poor health Subjective ROS Limited/Unobtainable: No Allergies: Coded Allergies: Crayfish (Unverified Allergy, Unknown, 11/11/18) Uncoded Allergies: Crawfish (Allergy, Unknown, 11/09/18) Subjective fever last night had BM Objective Last 24 Hour Vital Signs Date Time Temp Pulse Resp B/P (MAP) Pulse Ox O2 Delivery O2 Flow Rate FiO2 11/24/18 09:00 99.9 11/24/18 08:25 99 126/76 11/24/18 08:12 101.1 11/24/18 08:00 98 11/24/18 08:00 30 11/24/18 08:00 Mechanical Ventilator 11/24/18 07:51 102.6 99 20 126/76 (93) 100 11/24/18 06:37 101 25 30 11/24/18 06:01 112 176/92 11/24/18 06:01 176/192 11/24/18 05:06 92 19 30 11/24/18 04:00 98.2 99 20 176/92 (120) 100 11/24/18 04:00 Mechanical Ventilator 11/24/18 04:00 30 11/24/18 03:33 107 11/24/18 02:33 102 22 30 11/24/18 01:02 97 20 30 11/24/18 00:00 Mechanical Ventilator 11/24/18 00:00 98.2 91 20 140/107 (118) 100 11/23/18 23:34 89 11/23/18 22:54 85 22 30 11/23/18 22:00 81 95/53 11/23/18 22:00 95/53 11/23/18 21:04 96 18 30 11/23/18 20:00 101.5 99 21 146/70 (95) 100 11/23/18 20:00 Mechanical Ventilator 11/23/18 20:00 30 11/23/18 19:39 97 11/23/18 19:09 103 24 30 11/23/18 16:38 92 18 30 11/23/18 16:00 89 11/23/18 15:58 99.0 89 20 138/74 (95) 100 11/23/18 15:58 30 11/23/18 15:58 Mechanical Ventilator 11/23/18 14:33 88 19 30 11/23/18 13:06 89 144/86 11/23/18 13:06 144/86 11/23/18 12:39 89 23 30 11/23/18 12:00 89 11/23/18 12:00 Mechanical Ventilator 11/23/18 12:00 30 11/23/18 11:44 98.2 89 20 144/86 (105) 100 11/23/18 10:31 90 22 30 Intake and Output 11/23/18 11/24/18 18:59 06:59 Intake Total 1700 ml 520 ml Output Total 2500 ml 1900 ml Balance -800 ml -1380 ml Intake Free Water 200 ml IV Total 850 ml Tube Feeding 650 ml 520 ml Output Urine Total 2500 ml 1900 ml # Bowel Movements 1 2 Laboratory Tests 11/24/18 03:20: White Blood Count 13.4#H, Red Blood Count 3.59L, Hemoglobin 9.0L, Hematocrit 27.6L, Mean Corpuscular Volume 77L, Mean Corpuscular Hemoglobin 25.1L, Mean Corpuscular Hemoglobin Concent 32.5, Red Cell Distribution Width 21.6H, Platelet Count 402, Mean Platelet Volume 5.3L, Neutrophils (%) (Auto) 84.7H, Lymphocytes (%) (Auto) 8.7L, Monocytes (%) (Auto) 3.5, Eosinophils (%) (Auto) 2.7, Basophils (%) (Auto) 0.3, Sodium Level 134L, Potassium Level 4.0, Chloride Level 96L, Carbon Dioxide Level 32, Anion Gap 6, Blood Urea Nitrogen 11, Creatinine 0.3L, Estimat Glomerular Filtration Rate , Glucose Level 106, Calcium Level 8.3L, Total Bilirubin 0.2, Aspartate Amino Transf (AST/SGOT) 116H , Alanine Aminotransferase (ALT/SGPT) 93H, Alkaline Phosphatase 300H, Total Protein 6.1L, Albumin 1.2L, Globulin 4.9, Albumin/Globulin Ratio 0.2L Height (Feet): 5 Height (Inches): 8.00 Weight (Pounds): 210 General Appearance: no apparent distress EENT: normal ENT inspection Neck: supple Cardiovascular: normal rate Respiratory/Chest: decreased breath sounds Abdomen: normal bowel sounds, non tender, soft Extremities: non-tender Casper Humphries MD Nov 24, 2018 09:25
--- NOTE | 2018-11-24 09:44 | NUR ---
NURSE NOTES: Dr. Walters at nurse station. Made MD aware of patient's WBC level of 13.4 and fever of 102.6, which is now temp of 99.9 F after PRN Tylenol and cooling measures, made Dr. Walters aware of patient +4 pitting edema generalized and periorbital edema and albumin level of 1.2. Dr. Walters acknowledged, no new orders given at this time. Dr. Walters ordered Dr. Cheung for ENT consult regarding swollen tongue. Orders entered, noted, and carried out. Will continue to monitor patient.
--- NOTE | 2018-11-24 10:28 | NUR ---
RD ASSESSMENT & RECOMMENDATIONS SEE CARE ACTIVITY FOR COMPLETE ASSESSMENT DAILY ESTIMATED NEEDS: Needs based on Critical care, sepsis, wound 60kg adj 22-30 kcals/kg 2803-5166 total kcals 1.25-2 g protein/kg 75-120 g total protein Fluid per MD, on lasix NUTRITION DIAGNOSIS: * Swallowing difficulty r/t resp status as evidenced by pt is vent dep via trach and PEG dep. * Increased kcal and pro needs r/t wound healing and sepsis as evidenced by pt w/ sacral and R heel wounds, febrile (Tmax 102.6). CURRENT TF:Glucerna 1.2 @65 x18 hrs + Prosource x1 ENTERAL NUTRITION RECOMMENDATIONS: Glucerna 1.2 @ 65ml/hr x18 hrs + Prosource x1 daily to provide 1170ml, 1404 kcal, 70g pro + 11g pro, 942 free H2O - Maintain current TF at goal as tolerated - TF TO BE HELD FOR ONE HR BEFORE AND AFTER DILANTIN MEDS - FLUSH PER MD, HOB OVER 30 DEGREES ADDITIONAL RECOMMENDATIONS: 1) CALIBRATED BED SCALE W/ ADDED P200 MATTRESS + PUMP 2) ON LASIX, MONITOR LYTES AND HYDRATION STATUS DAILY 3) TF TO RUN A MAX OF 18 HRS/DAY W/ DILANTIN TID PER PHARMACY 4) REC MAINTAIN CARB CONTROL FORMULA -> h/o DM, on short + long acting insulin 5) WOUND CARE: ADD CHAYITO BID + VIT C 250MG DAILY
[2018-11-24 12:00] VITALS: BP 128/66
--- NOTE | 2018-11-24 12:00 | NUR ---
NURSE NOTES: Dr. Goodwin as nurse station. Made MD aware that patient's WBC has trended upward to 13.4 and had temperature of 102.6 F this morning, Tylenol and cooling measures provided, patient's temperature is now 98.[address] Goodwin acknowledged. No new orders given at this time. Will continue to monitor patient.
--- NOTE | 2018-11-24 12:02 | NUR ---
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 102.6 HR 112 RR 20 B/P 176/92 AC 14 TV 375 FIO2 30% PEEP 5 NA 134 AST 116 ALT 93 ALK PHOS 300 WBC 13.4 IS: FLAGYL IV POLYMYXIN IV LASIX PO STEP DOWN STATUS
[2018-11-24 14:19] LABS: APPEARANCE,URINE CLEAR; BILIRUBIN, URINE NEGATIVE (NEGATIVE); COLOR,URINE PALE YELLOW; GLUCOSE, URINE (UA) NEGATIVE (NEGATIVE); KETONES,URINE NEGATIVE (NEGATIVE); LEUKOCYTE ESTERASE ,URINE 1+ (NEGATIVE); NITRITE,URINE NEGATIVE (NEGATIVE); PH,URINE 6.5 (4.5-8.0); PROTEIN,URINE 2+ (NEGATIVE); UROBILINOGEN,URINE NORMAL MG/DL (0.0-1.0)
--- NOTE | 2018-11-24 14:55 | Surgery Progress Note ---
Surgery Progress Note Subjective Additional Comments no acute events tongue still dry and protruding labs noted family at bedside discussed care plan Objective Last 24 Hour Vital Signs Date Time Temp Pulse Resp B/P (MAP) Pulse Ox O2 Delivery O2 Flow Rate FiO2 11/24/18 14:30 84 20 30 11/24/18 13:08 88 128/66 11/24/18 13:08 128/66 11/24/18 12:43 88 23 30 11/24/18 12:00 98.1 99 20 128/66 (86) 100 11/24/18 12:00 86 11/24/18 12:00 30 11/24/18 12:00 Mechanical Ventilator 11/24/18 10:44 86 24 30 11/24/18 09:00 99.9 11/24/18 08:50 93 20 30 11/24/18 08:25 99 126/76 11/24/18 08:12 101.1 11/24/18 08:00 98 11/24/18 08:00 30 11/24/18 08:00 Mechanical Ventilator 11/24/18 07:51 102.6 99 20 126/76 (93) 100 11/24/18 06:37 101 25 30 11/24/18 06:01 112 176/92 11/24/18 06:01 176/192 11/24/18 05:06 92 19 30 11/24/18 04:00 98.2 99 20 176/92 (120) 100 11/24/18 04:00 Mechanical Ventilator 11/24/18 04:00 30 11/24/18 03:33 107 11/24/18 02:33 102 22 30 11/24/18 01:02 97 20 30 11/24/18 00:00 Mechanical Ventilator 11/24/18 00:00 98.2 91 20 140/107 (118) 100 11/23/18 23:34 89 11/23/18 22:54 85 22 30 11/23/18 22:00 81 95/53 11/23/18 22:00 95/53 11/23/18 21:04 96 18 30 11/23/18 20:00 101.5 99 21 146/70 (95) 100 11/23/18 20:00 Mechanical Ventilator 11/23/18 20:00 30 11/23/18 19:39 97 11/23/18 19:09 103 24 30 11/23/18 16:38 92 18 30 11/23/18 16:00 89 11/23/18 15:58 99.0 89 20 138/74 (95) 100 11/23/18 15:58 30 11/23/18 15:58 Mechanical Ventilator I&O Intake and Output 11/23/18 11/24/18 18:59 06:59 Intake Total 1700 ml 520 ml Output Total 2500 ml 1900 ml Balance -800 ml -1380 ml Intake Free Water 200 ml IV Total 850 ml Tube Feeding 650 ml 520 ml Output Urine Total 2500 ml 1900 ml # Bowel Movements 1 2 Dressing: dry Cardiovascular: RSR Respiratory: clear Abdomen: soft, non-tender, present bowel sounds, non-distended Extremities: no tenderness, no cyanosis Laboratory Tests Test 11/24/18 03:20 11/24/18 13:45 White Blood Count 13.4 K/UL (4.8-10.8) #H Red Blood Count 3.59 M/UL (4.20-5.40) L Hemoglobin 9.0 G/DL (12.0-16.0) L Hematocrit 27.6 % (37.0-47.0) L Mean Corpuscular Volume 77 FL (80-99) L Mean Corpuscular Hemoglobin 25.1 PG (27.0-31.0) L Mean Corpuscular Hemoglobin Concent 32.5 G/DL (32.0-36.0) Red Cell Distribution Width 21.6 % (11.6-14.8) H Platelet Count 402 K/UL (150-450) Mean Platelet Volume 5.3 FL (6.5-10.1) L Neutrophils (%) (Auto) 84.7 % (45.0-75.0) H Lymphocytes (%) (Auto) 8.7 % (20.0-45.0) L Monocytes (%) (Auto) 3.5 % (1.0-10.0) Eosinophils (%) (Auto) 2.7 % (0.0-3.0) Basophils (%) (Auto) 0.3 % (0.0-2.0) Sodium Level 134 MMOL/L (136-145) L Potassium Level 4.0 MMOL/L (3.5-5.1) Chloride Level 96 MMOL/L (98-107) L Carbon Dioxide Level 32 MMOL/L (21-32) Anion Gap 6 mmol/L (5-15) Blood Urea Nitrogen 11 mg/dL (7-18) Creatinine 0.3 MG/DL (0.55-1.30) L Estimat Glomerular Filtration Rate mL/min (>60) Glucose Level 106 MG/DL (74-106) Calcium Level 8.3 MG/DL (8.5-10.1) L Total Bilirubin 0.2 MG/DL (0.2-1.0) Aspartate Amino Transf (AST/SGOT) 116 U/L (15-37) H Alanine Aminotransferase (ALT/SGPT) 93 U/L (12-78) H Alkaline Phosphatase 300 U/L (46-116) H Total Protein 6.1 G/DL (6.4-8.2) L Albumin 1.2 G/DL (3.4-5.0) L Globulin 4.9 g/dL Albumin/Globulin Ratio 0.2 (1.0-2.7) L Urine Color Pale yellow Urine Appearance Clear Urine pH 6.5 (4.5-8.0) Urine Specific [place] 1.005 (1.005-1.035) Urine Protein 2+ (NEGATIVE) H Urine Glucose (UA) Negative (NEGATIVE) Urine Ketones Negative (NEGATIVE) Urine Blood 3+ (NEGATIVE) H Urine Nitrite Negative (NEGATIVE) Urine Bilirubin Negative (NEGATIVE) Urine Urobilinogen Normal MG/DL (0.0-1.0) Urine Leukocyte Esterase 1+ (NEGATIVE) H Urine RBC 2-4 /HPF (0 - 2) H Urine WBC 2-4 /HPF (0 - 2) Urine Squamous Epithelial Cells Occasional /LPF Urine Bacteria Occasional /HPF (NONE) Plan Problems: (1) Fever (2) Tongue abnormality Assessment & Plan: patients jaw clenched closed and tongue has been stuck for some time. tongue split from middle teeth and now in two. edema and unable to reduce keep tongue moist. apply lube jelly prn dryness. will monitor do not recommend surgical intervention for this current medical condition spoke with family. ENT plan to see. OMFS no intervention (3) Tracheostomy dependence (4) Sepsis Assessment & Plan: gb no stones 6mm polyp no acute surgical intervention planned trend labs improving labs improved DAILY ESTIMATED NEEDS: Needs based on Critical care, sepsis, wound 60kg adj 22-30 kcals/kg [id number] total kcals 1.25-2 g protein/kg 75-120 g total protein Fluid per MD, on lasix NUTRITION DIAGNOSIS: * Swallowing difficulty r/t respiratory status as evidenced by pt is vent dep via trach and PEG dep. * Increased kcal and pro needs r/t wound healing and sepsis as evidenced by pt w/ sacral and R heel wounds, febrile (Tmax 101.5). CURRENT TF: Jevity 1.2 @50 ml/hr x16 hrs ENTERAL NUTRITION RECOMMENDATIONS: Glucerna 1.2 @65ml/hr x18 hrs + Prosource x1 daily to provide 1170ml, 1404 kcal, 70g pro + 11g pro, 942 free H2O - REC TF CHANGE AND INCREASE TO BETTER MEET EST NEEDS - TF TO BE HELD FOR ONE HR BEFORE AND AFTER DILANTIN MEDS - START @20ML/HR, ADVANCE TOLERATED 15ML/HR Q4-6 HRS TO GOAL - FLUSH PER MD, HOB OVRE 30 DEGREES ADDITIONAL RECOMMENDATIONS: 1) CALIBRATED BED SCALE W/ ADDED P200 MATTRESS + PUMP 2) ON LASIX, MONITOR LYTES AND HYDRATION STATUS DAILY 3) TF TO RUN A MAX OF 18 HRS/DAY W/ DILANTIN TID PER PHARMACY 4) REC TF CHANGE TO CARB CONTROL FORMULA 5) WOUND CARE: ADD CHAYITO BID + VIT C 250MG DAILY (5) Fever Assessment & Plan: CT A/P with findings Impression: No definite acute process Diverticulosis. No evidence of diverticulitis Extensive edema of the subcutaneous fat. 2 cm focal fluid collection/edema seen within the incision Moderate amount retained dense stool. Correlate with any clinical history of constipation Hiatal hernia. Gastrostomy Left renal parapelvic cysts Apparent prior hysterectomy (6) Decubitus skin ulcer Assessment & Plan: Pt presented on admission with full thickness sacral pressure injury.Base of wound is 20% necrotic , 80% slough. borders are macerated . Mild odor noted. (L)8.4cm x (W) 6.5cm. Periwound skin tone is darker without erythema,induration or elevation in skin temp. Both heels are non -blanchable and both are fluctuant when palpated. Tx.Plan: Clean wound with saline. Apply Therahoney. Aply Moisture Barrier paste periwound. Cover with Optifoam drsg. Change every 3 days and prn. Apply Cavilon Skin BArrier to both heels. Cover each heel with Optifoam drsg. Change every 7 days and prn. APM/DEIRDRE mattress overlay. Reposition at least every 2hours or as tolerated. Off-load heels with pillow. will follow with recs thank you Preet Hylton Nov 24, 2018 14:55
--- NOTE | 2018-11-24 14:58 | General Progress Note ---
Assessment/Plan Problem List: (1) MRSA (methicillin resistant staphylococcus aureus) pneumonia ICD Codes: J15.212 - Pneumonia due to Methicillin resistant Staphylococcus aureus SNOMED: 499435172201424 (2) Fever ICD Codes: R50.9 - Fever, unspecified SNOMED: 603726182 (3) UTI (urinary tract infection) ICD Codes: N39.0 - Urinary tract infection, site not specified SNOMED: 05664209 (4) Tracheostomy dependence ICD Codes: Z93.0 - Tracheostomy status SNOMED: 174588181 (5) Ventilator dependence ICD Codes: Z99.11 - Dependence on respirator [ventilator] status SNOMED: 635965705 (6) Protein calorie malnutrition ICD Codes: E46 - Unspecified protein-calorie malnutrition SNOMED: 211047335 (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 SNOMED: 86145288 (8) Drug rash ICD Codes: L27.0 - Generalized skin eruption due to drugs and medicaments taken internally SNOMED: 70764503 (9) Gram-negative pneumonia ICD Codes: J15.6 - Pneumonia due to other Gram-negative bacteria SNOMED: 556304803 (10) Line sepsis ICD Codes: T85.79XA - Infection and inflammatory reaction due to other internal prosthetic devices, implants and grafts, initial encounter; A41.9 - Sepsis, unspecified organism SNOMED: 56510399, 131877243 (11) Bacteremia ICD Codes: R78.81 - Bacteremia SNOMED: 4365585 Status: stable Assessment/Plan: 78-year-old female who is trach dependent who was brought in by correction for sepsis and found to have UTI and bacteremia. 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 fungal uti vs colonization ID consult appreciate Rec Vancomycin and Meropenem started 11/16 ( Zosyn stopped) , fungal coverage with Diflucan added 11/18. Repeat sputum cultures with RAULTELLA PLANTICOA and PROVIDENCIA STUARTI resistant to most antibiotics Today developed morbilliform rash, has persistent fevers. Discussed with Dr. Goodwin and will DC meropenem, vancomycin and Diflucan. Started Polymyxin and flagyl 11/21. Discussed with daughter at bedside. Lenny fevers are low grade with tmax of 100.0 CT abdomen pelvis shows no acute process Removed PICC and place new line 11/13/18 Echo to eval for vegetation negative Chest x-ray reviewed: Atelectasis, repeat cxr ordered for 11/[address] abdomen pelvis per ID # Transaminitis - trend lft's - GI consult, appreciate recs - ab us: reviewed - f/u hep panel #Elevated troponin secondary to sepsis versus ACS Cardiology consult, appreciate recs Medications per cardiology #Microcytic anemia- mixed anemia of chronic inflammation and iron deficiency. Start ferrous sulfate TID #Hypertension- improved Continue current medications, hydralazine as needed hypertension #Vent dependent Pulmonary consult, appreciate recs Vent management per pulmonary #Hypokalemia Replace, continue to monitor # Chronic tongue wound Supportive care On examination the patient has a sharp lower incisor present that is likely the culprit for the tongue laceration when she was intubated in the prior hospitalization at [facility] OMFS consultation Dr. Benavides completed ( no note left ) and I spoke with him over the phone after the visit. He does not recommend any surgery. ONLY bite block MOLT if available to decompress the tongue and get the remainder teeth out of the tongue way. Keep moisture in the lips and tongue. # History of mood disorder Seen by psychiatry and on Depakote. Level was checked # Seizure history - Discussed with Dr. Eric who knew the patient from [facility] and confirmed that she did have seizure activity and was on multiple AED regimen. - Will continue Depakote ( 28 level ) and (Phenytoin 4.3 ) - no active seizure activity at this time. Keep current dose. - Both Dr. Eric and Mariana not available to come to [facility] for consult and not acute need at this time. #Diabetes Mellitus - glucose noted in the 90-110's - Decreased Levemir to 4 units q 12 hours # Disposition - SNF when cleared by ID. Still febrile. Full code timing of this note may not reflect time of encounter. I spent 40 minutes on this encounter. Great than 50 percent spent of care planning. Subjective Allergies: Coded Allergies: Crayfish (Unverified Allergy, Unknown, 11/11/18) Uncoded Allergies: Crawfish (Allergy, Unknown, 11/09/18) Subjective obtunded on vent, fevers subsiding. now low grade, t max 100.0 Ct abdomen pelvis done for persistent fevers. On broad spectrum antibiotics ID involved Chest xr ordered for today Objective Last 24 Hour Vital Signs Date Time Temp Pulse Resp B/P (MAP) Pulse Ox O2 Delivery O2 Flow Rate FiO2 11/24/18 14:30 84 20 30 11/24/18 13:08 88 128/66 11/24/18 13:08 128/66 11/24/18 12:43 88 23 30 11/24/18 12:00 98.1 99 20 128/66 (86) 100 11/24/18 12:00 86 11/24/18 12:00 30 11/24/18 12:00 Mechanical Ventilator 11/24/18 10:44 86 24 30 11/24/18 09:00 99.9 11/24/18 08:50 93 20 30 11/24/18 08:25 99 126/76 11/24/18 08:12 101.1 11/24/18 08:00 98 11/24/18 08:00 30 11/24/18 08:00 Mechanical Ventilator 11/24/18 07:51 102.6 99 20 126/76 (93) 100 11/24/18 06:37 101 25 30 11/24/18 06:01 112 176/92 11/24/18 06:01 176/192 11/24/18 05:06 92 19 30 11/24/18 04:00 98.2 99 20 176/92 (120) 100 11/24/18 04:00 Mechanical Ventilator 11/24/18 04:00 30 11/24/18 03:33 107 11/24/18 02:33 102 22 30 11/24/18 01:02 97 20 30 11/24/18 00:00 Mechanical Ventilator 11/24/18 00:00 98.2 91 20 140/107 (118) 100 11/23/18 23:34 89 11/23/18 22:54 85 22 30 11/23/18 22:00 81 95/53 11/23/18 22:00 95/53 11/23/18 21:04 96 18 30 11/23/18 20:00 101.5 99 21 146/70 (95) 100 11/23/18 20:00 Mechanical Ventilator 11/23/18 20:00 30 11/23/18 19:39 97 11/23/18 19:09 103 24 30 11/23/18 16:38 92 18 30 11/23/18 16:00 89 11/23/18 15:58 99.0 89 20 138/74 (95) 100 11/23/18 15:58 30 11/23/18 15:58 Mechanical Ventilator Intake and Output 11/23/18 11/24/18 18:59 06:59 Intake Total 1700 ml 520 ml Output Total 2500 ml 1900 ml Balance -800 ml -1380 ml Intake Free Water 200 ml IV Total 850 ml Tube Feeding 650 ml 520 ml Output Urine Total 2500 ml 1900 ml # Bowel Movements 1 2 Laboratory Tests 11/24/18 03:20: White Blood Count 13.4#H, Red Blood Count 3.59L, Hemoglobin 9.0L, Hematocrit 27.6L, Mean Corpuscular Volume 77L, Mean Corpuscular Hemoglobin 25.1L, Mean Corpuscular Hemoglobin Concent 32.5, Red Cell Distribution Width 21.6H, Platelet Count 402, Mean Platelet Volume 5.3L, Neutrophils (%) (Auto) 84.7H, Lymphocytes (%) (Auto) 8.7L, Monocytes (%) (Auto) 3.5, Eosinophils (%) (Auto) 2.7, Basophils (%) (Auto) 0.3, Sodium Level 134L, Potassium Level 4.0, Chloride Level 96L, Carbon Dioxide Level 32, Anion Gap 6, Blood Urea Nitrogen 11, Creatinine 0.3L, Estimat Glomerular Filtration Rate , Glucose Level 106, Calcium Level 8.3L, Total Bilirubin 0.2, Aspartate Amino Transf (AST/SGOT) 116H , Alanine Aminotransferase (ALT/SGPT) 93H, Alkaline Phosphatase 300H, Total Protein 6.1L, Albumin 1.2L, Globulin 4.9, Albumin/Globulin Ratio 0.2L 11/24/18 13:45: Urine Color Pale yellow, Urine Appearance Clear, Urine pH 6.5, Urine Specific [place] 1.005, Urine Protein 2+H, Urine Glucose (UA) Negative, Urine Ketones Negative, Urine Blood 3+H, Urine Nitrite Negative, Urine Bilirubin Negative, Urine Urobilinogen Normal, Urine Leukocyte Esterase 1+H, Urine RBC 2-4H, Urine WBC 2-4, Urine Squamous Epithelial Cells Occasional, Urine Bacteria Occasional Height (Feet): 5 Height (Inches): 8.00 Weight (Pounds): 210 Objective General Appearance: no apparent distress, other - unresponsive on vent EENT: PERRL/EOMI, other - enlarged tongue protruding, lower lip severely swollen Neck: supple Cardiovascular: normal rate, regular rhythm Respiratory/Chest: lungs clear Abdomen: soft Neurologic: unresponsive Skin: Morbilliform rash to bilateral upper extremities and thighs Neftaly Walters M.D. Nov 24, 2018 14:58
--- NOTE | 2018-11-24 15:16 | General Progress Note ---
Assessment/Plan Problem List: (1) MRSA (methicillin resistant staphylococcus aureus) pneumonia ICD Codes: J15.212 - Pneumonia due to Methicillin resistant Staphylococcus aureus SNOMED: 587775346901404 (2) Fever ICD Codes: R50.9 - Fever, unspecified SNOMED: 254166933 (3) UTI (urinary tract infection) ICD Codes: N39.0 - Urinary tract infection, site not specified SNOMED: 74452437 (4) Tracheostomy dependence ICD Codes: Z93.0 - Tracheostomy status SNOMED: 367960147 (5) Ventilator dependence ICD Codes: Z99.11 - Dependence on respirator [ventilator] status SNOMED: 314160386 (6) Protein calorie malnutrition ICD Codes: E46 - Unspecified protein-calorie malnutrition SNOMED: 914063803 (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 SNOMED: 22453881 (8) Drug rash ICD Codes: L27.0 - Generalized skin eruption due to drugs and medicaments taken internally SNOMED: 15772963 (9) Gram-negative pneumonia ICD Codes: J15.6 - Pneumonia due to other Gram-negative bacteria SNOMED: 325228592 (10) Line sepsis ICD Codes: T85.79XA - Infection and inflammatory reaction due to other internal prosthetic devices, implants and grafts, initial encounter; A41.9 - Sepsis, unspecified organism SNOMED: 47641189, 520397325 (11) Bacteremia ICD Codes: R78.81 - Bacteremia SNOMED: 3565444 Status: stable Assessment/Plan: 78-year-old female who is trach dependent who was brought in by [facility] for sepsis and found to have UTI and bacteremia. 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 fungal uti vs colonization ID consult appreciate Rec Vancomycin and Meropenem started 11/16 ( Zosyn stopped) , fungal coverage with Diflucan added 11/18. Repeat sputum cultures with RAULTELLA PLANTICOA and PROVIDENCIA STUARTI resistant to most antibiotics Today developed morbilliform rash, has persistent fevers. Discussed with Dr. Goodwin and will DC meropenem, vancomycin and Diflucan. Started Polymyxin and flagyl 11/21. Discussed with daughter at bedside. Discussed with ID, will start Vancomycin and culture PICC. CT abdomen pelvis shows no acute process Removed PICC and place new line 11/13/18 Echo to eval for vegetation negative Chest x-ray reviewed, no change # Transaminitis - trend lft's - GI consult, appreciate recs - ab us: reviewed - f/u hep panel #Elevated troponin secondary to sepsis versus ACS Cardiology consult, appreciate recs Medications per cardiology #Microcytic anemia- mixed anemia of chronic inflammation and iron deficiency. Start ferrous sulfate TID #Hypertension- improved Continue current medications, hydralazine as needed hypertension #Vent dependent Pulmonary consult, appreciate recs Vent management per pulmonary #Hypokalemia Replace, continue to monitor # Chronic tongue wound Supportive care On examination the patient has a sharp lower incisor present that is likely the culprit for the tongue laceration when she was intubated in the prior hospitalization at [facility] OMFS consultation Dr. Benavides completed ( no note left ) and I spoke with him over the phone after the visit. He does not recommend any surgery. ONLY bite block MOLT if available to decompress the tongue and get the remainder teeth out of the tongue way. Keep moisture in the lips and tongue. ENT consult with Dr. Emerson Cheung # History of mood disorder Seen by psychiatry and on Depakote. Level was checked # Seizure history - Discussed with Dr. Eric who knew the patient from [facility] and confirmed that she did have seizure activity and was on multiple AED regimen. - Will continue Depakote ( 28 level ) and (Phenytoin 4.3 ) - no active seizure activity at this time. Keep current dose. - Both Dr. Eric and Mariana not available to come to [facility] for consult and not acute need at this time. #Diabetes Mellitus - glucose noted in the 90-110's - Decreased Levemir to 4 units q 12 hours # Disposition - SNF when cleared by ID. Still febrile. Full code timing of this note may not reflect time of encounter. I spent 40 minutes on this encounter. Great than 50 percent spent of care planning. Subjective Date patient seen: Nov 24, 2018 ROS Limited/Unobtainable: Yes Allergies: Coded Allergies: Crayfish (Unverified Allergy, Unknown, 11/11/18) Uncoded Allergies: Crawfish (Allergy, Unknown, 11/09/18) Subjective obtunded on vent, high grade fever, 102 Ct abdomen pelvis done for persistent fevers no acute pathology On broad spectrum antibiotics ID involved Objective Last 24 Hour Vital Signs Date Time Temp Pulse Resp B/P (MAP) Pulse Ox O2 Delivery O2 Flow Rate FiO2 11/24/18 14:30 84 20 30 11/24/18 13:08 88 128/66 11/24/18 13:08 128/66 11/24/18 12:43 88 23 30 11/24/18 12:00 98.1 99 20 128/66 (86) 100 11/24/18 12:00 86 11/24/18 12:00 30 11/24/18 12:00 Mechanical Ventilator 11/24/18 10:44 86 24 30 11/24/18 09:00 99.9 11/24/18 08:50 93 20 30 11/24/18 08:25 99 126/76 11/24/18 08:12 101.1 11/24/18 08:00 98 11/24/18 08:00 30 11/24/18 08:00 Mechanical Ventilator 11/24/18 07:51 102.6 99 20 126/76 (93) 100 11/24/18 06:37 101 25 30 11/24/18 06:01 112 176/92 11/24/18 06:01 176/192 11/24/18 05:06 92 19 30 11/24/18 04:00 98.2 99 20 176/92 (120) 100 11/24/18 04:00 Mechanical Ventilator 11/24/18 04:00 30 11/24/18 03:33 107 11/24/18 02:33 102 22 30 11/24/18 01:02 97 20 30 11/24/18 00:00 Mechanical Ventilator 11/24/18 00:00 98.2 91 20 140/107 (118) 100 11/23/18 23:34 89 11/23/18 22:54 85 22 30 11/23/18 22:00 81 95/53 11/23/18 22:00 95/53 11/23/18 21:04 96 18 30 11/23/18 20:00 101.5 99 21 146/70 (95) 100 11/23/18 20:00 Mechanical Ventilator 11/23/18 20:00 30 11/23/18 19:39 97 11/23/18 19:09 103 24 30 11/23/18 16:38 92 18 30 11/23/18 16:00 89 11/23/18 15:58 99.0 89 20 138/74 (95) 100 11/23/18 15:58 30 11/23/18 15:58 Mechanical Ventilator Intake and Output 11/23/18 11/24/18 18:59 06:59 Intake Total 1700 ml 520 ml Output Total 2500 ml 1900 ml Balance -800 ml -1380 ml Intake Free Water 200 ml IV Total 850 ml Tube Feeding 650 ml 520 ml Output Urine Total 2500 ml 1900 ml # Bowel Movements 1 2 Laboratory Tests 11/24/18 03:20: White Blood Count 13.4#H, Red Blood Count 3.59L, Hemoglobin 9.0L, Hematocrit 27.6L, Mean Corpuscular Volume 77L, Mean Corpuscular Hemoglobin 25.1L, Mean Corpuscular Hemoglobin Concent 32.5, Red Cell Distribution Width 21.6H, Platelet Count 402, Mean Platelet Volume 5.3L, Neutrophils (%) (Auto) 84.7H, Lymphocytes (%) (Auto) 8.7L, Monocytes (%) (Auto) 3.5, Eosinophils (%) (Auto) 2.7, Basophils (%) (Auto) 0.3, Sodium Level 134L, Potassium Level 4.0, Chloride Level 96L, Carbon Dioxide Level 32, Anion Gap 6, Blood Urea Nitrogen 11, Creatinine 0.3L, Estimat Glomerular Filtration Rate , Glucose Level 106, Calcium Level 8.3L, Total Bilirubin 0.2, Aspartate Amino Transf (AST/SGOT) 116H , Alanine Aminotransferase (ALT/SGPT) 93H, Alkaline Phosphatase 300H, Total Protein 6.1L, Albumin 1.2L, Globulin 4.9, Albumin/Globulin Ratio 0.2L 11/24/18 13:45: Urine Color Pale yellow, Urine Appearance Clear, Urine pH 6.5, Urine Specific [place] 1.005, Urine Protein 2+H, Urine Glucose (UA) Negative, Urine Ketones Negative, Urine Blood 3+H, Urine Nitrite Negative, Urine Bilirubin Negative, Urine Urobilinogen Normal, Urine Leukocyte Esterase 1+H, Urine RBC 2-4H, Urine WBC 2-4, Urine Squamous Epithelial Cells Occasional, Urine Bacteria Occasional Height (Feet): 5 Height (Inches): 8.00 Weight (Pounds): 210 Objective General Appearance: no apparent distress, other - unresponsive on vent EENT: PERRL/EOMI, other - enlarged tongue protruding, lower lip severely swollen Neck: supple Cardiovascular: normal rate, regular rhythm Respiratory/Chest: lungs clear Abdomen: soft Neurologic: unresponsive Skin: Morbilliform rash to bilateral upper extremities and thighs Neftaly Walters M.D. Nov 24, 2018 15:16
--- NOTE | 2018-11-24 15:41 | Infectious Diseases Prog Note ---
Assessment/Plan Assessment/Plan ASSESSMENT AND PLAN: 1. poker in bacteremia/line infection, e.coli line infection, sacral wound infection , gram neg pna, enterococcus uti, sepsis, leukocytosis, fevers, fungemia risk, ? fungal uti vs colonization, ? new line infection , ? new nosocomial infection - polymyxin and flagyl, add vancomycin and micafungin - reculture, monitor labs and chest x-ray - previous picc line changed recently - 11/13/18 - CT scan without abscess or diverticulitis - sacral wound management per surgery - please see orders - case d/w Dr. Walters, RN and daughter at length - sdu care - rash improved off meropenem - ? enlarged tongue as source - ENT evaluation if possible 2. Trach-vent respiratory failure. 3. Dysphagia, G-tube. 4. Anemia. 5. Diabetes. 6. Hypertension. 7. Large tongue. 8. Anoxic brain injury. 9. Weakness. 10. Poorly responsive. 11. History of seizures. 12. History of colon adenocarcinoma. 13. Skin care protocol. 14. Allergy to crawfish. 15. Social history negative. 16. Family history noncontributory. 17. MAR was noted. 18. Case was discussed with RN. 19. Continue treatment per primary consultants. 20. Orders were ordered, entered, and noted. 21. Continue wound care protocol. 22. Continue blood sugar and blood pressure treatment per primary consultants for diabetes and hypertension. 23. vre colonization and isolation Subjective Constitutional: Reports: fever, fatigue, other - + trach and vent, poorly responsive HEENT: Reports: congestion Respiratory: Reports: shortness of breath Cardiovascular: Reports: other - no pressors Gastrointestinal/Abdominal: Denies: nausea, vomiting, diarrhea Genitourinary: Reports: other - + nava Neurologic: Reports: weakness, other - poorly responsive Psychiatric: Reports: other - NA Skin: Reports: other - wounds - covered ; Denies: rash Hematologic: Denies: bleeding Musculoskeletal: Reports: other - NA Allergies: Coded Allergies: Crayfish (Unverified Allergy, Unknown, 11/11/18) Uncoded Allergies: Crawfish (Allergy, Unknown, 11/09/18) Objective Vital Signs Last 24 Hour Vital Signs Date Time Temp Pulse Resp B/P (MAP) Pulse Ox O2 Delivery O2 Flow Rate FiO2 11/24/18 14:30 84 20 30 11/24/18 13:08 88 128/66 11/24/18 13:08 128/66 11/24/18 12:43 88 23 30 11/24/18 12:00 98.1 99 20 128/66 (86) 100 11/24/18 12:00 86 11/24/18 12:00 30 11/24/18 12:00 Mechanical Ventilator 11/24/18 10:44 86 24 30 11/24/18 09:00 99.9 11/24/18 08:50 93 20 30 11/24/18 08:25 99 126/76 11/24/18 08:12 101.1 11/24/18 08:00 98 11/24/18 08:00 30 11/24/18 08:00 Mechanical Ventilator 11/24/18 07:51 102.6 99 20 126/76 (93) 100 11/24/18 06:37 101 25 30 11/24/18 06:01 112 176/92 11/24/18 06:01 176/192 11/24/18 05:06 92 19 30 11/24/18 04:00 98.2 99 20 176/92 (120) 100 11/24/18 04:00 Mechanical Ventilator 11/24/18 04:00 30 11/24/18 03:33 107 11/24/18 02:33 102 22 30 11/24/18 01:02 97 20 30 11/24/18 00:00 Mechanical Ventilator 11/24/18 00:00 98.2 91 20 140/107 (118) 100 11/23/18 23:34 89 11/23/18 22:54 85 22 30 11/23/18 22:00 81 95/53 11/23/18 22:00 95/53 11/23/18 21:04 96 18 30 11/23/18 20:00 101.5 99 21 146/70 (95) 100 11/23/18 20:00 Mechanical Ventilator 11/23/18 20:00 30 11/23/18 19:39 97 11/23/18 19:09 103 24 30 11/23/18 16:38 92 18 30 11/23/18 16:00 89 11/23/18 15:58 99.0 89 20 138/74 (95) 100 11/23/18 15:58 30 11/23/18 15:58 Mechanical Ventilator Height (Feet): 5 Height (Inches): 8.00 Weight (Pounds): 210 General Appearance: other - weak, + trach and vent HEENT: normocephalic, atraumatic, anicteric, no JVD, status post trach Respiratory/Chest: crackles/rales, rhonchi - bilaterally Cardiovascular: normal rate, regular rhythm, no gallop/murmur, no JVD Abdomen: normal bowel sounds, soft, non tender, no organomegaly, non distended Genitourinary: other Extremities: other - no cellulitis, + edema Skin: no rash Neurologic/Psychiatric: motor weakness, other - poorly responsive Lymphatic: no neck adenopathy Musculoskeletal: no effusion Objective 11/11/18 - chest x-ray - IMPRESSION: 1. Hypoventilatory lungs. Elevated right hemidiaphragm. Slightly improved vascular congestion. Similar bibasilar lung atelectasis and airspace disease. 2. Query right pleural effusion. 2-D echo - no vegetations mentioned, report noted sacral x-ray - no osteo mentioned, report noted 11/14/18 - Technique: One view of the chest Comparison: November 13, 2018 post PICC radiograph Findings: Bilateral interstitial and alveolar edema versus infiltrates appear slightly worse. There is increasing obscuration of left hemidiaphragm, may reflect increasing pleural fluid as well. The heart remains enlarged. Previously demonstrated left arm PICC has been removed. Stable right arm PICC. Impression: Slightly worsening bilateral interstitial and airspace infiltrates versus edema, over one day 11/16/18 - chest x-ray Procedure: XRAY Chest 1v Indication: Dyspnea Technique: One view of the chest Comparison: November 14, 2018 Findings: Bilateral interstitial edema persists. Tracheostomy, right arm PICC remain. The heart is enlarged. Impression: Bilateral interstitial edema, unchanged over [address] abdomen and pelvis: Impression: No definite acute process Diverticulosis. No evidence of diverticulitis Extensive edema of the subcutaneous fat. 2 cm focal fluid collection/edema seen within the incision Moderate amount retained dense stool. Correlate with any clinical history of constipation Hiatal hernia. Gastrostomy Left renal parapelvic cysts Apparent prior hysterectomy Chest x-ray - 11/23/18 - Technique: One view of the chest Comparison: 11/20/2018 Findings: Less optimal inspiration currently, with resultant crowding of the bronchovascular markings. Interstitial congestion is probably not significantly changed, allowing for differences in exposure technique. Tracheostomy remains. Right arm PICC remains. Impression: Unchanged, over 3 days, findings as above. Microbiology Date/Time Source Procedure Growth Status 11/16/18 12:35 Blood Blood Culture - Final NO GROWTH AFTER 5 DAYS Complete 11/16/18 12:40 Sputum Expectorated Gram Stain - Final Complete 11/16/18 12:40 Sputum Culture - Final Raoultella Planticola Providencia Stuartii Complete 11/16/18 12:30 Urine,Clean Catch Urine Culture - Final Ivelisse Albicans Complete 11/13/18 21:55 Catheter Site Catheter Tip Culture - Final Escherichia Coli Complete Laboratory Tests Test 11/24/18 03:20 11/24/18 13:45 White Blood Count 13.4 K/UL (4.8-10.8) #H Red Blood Count 3.59 M/UL (4.20-5.40) L Hemoglobin 9.0 G/DL (12.0-16.0) L Hematocrit 27.6 % (37.0-47.0) L Mean Corpuscular Volume 77 FL (80-99) L Mean Corpuscular Hemoglobin 25.1 PG (27.0-31.0) L Mean Corpuscular Hemoglobin Concent 32.5 G/DL (32.0-36.0) Red Cell Distribution Width 21.6 % (11.6-14.8) H Platelet Count 402 K/UL (150-450) Mean Platelet Volume 5.3 FL (6.5-10.1) L Neutrophils (%) (Auto) 84.7 % (45.0-75.0) H Lymphocytes (%) (Auto) 8.7 % (20.0-45.0) L Monocytes (%) (Auto) 3.5 % (1.0-10.0) Eosinophils (%) (Auto) 2.7 % (0.0-3.0) Basophils (%) (Auto) 0.3 % (0.0-2.0) Sodium Level 134 MMOL/L (136-145) L Potassium Level 4.0 MMOL/L (3.5-5.1) Chloride Level 96 MMOL/L (98-107) L Carbon Dioxide Level 32 MMOL/L (21-32) Anion Gap 6 mmol/L (5-15) Blood Urea Nitrogen 11 mg/dL (7-18) Creatinine 0.3 MG/DL (0.55-1.30) L Estimat Glomerular Filtration Rate mL/min (>60) Glucose Level 106 MG/DL (74-106) Calcium Level 8.3 MG/DL (8.5-10.1) L Total Bilirubin 0.2 MG/DL (0.2-1.0) Aspartate Amino Transf (AST/SGOT) 116 U/L (15-37) H Alanine Aminotransferase (ALT/SGPT) 93 U/L (12-78) H Alkaline Phosphatase 300 U/L (46-116) H Total Protein 6.1 G/DL (6.4-8.2) L Albumin 1.2 G/DL (3.4-5.0) L Globulin 4.9 g/dL Albumin/Globulin Ratio 0.2 (1.0-2.7) L Urine Color Pale yellow Urine Appearance Clear Urine pH 6.5 (4.5-8.0) Urine Specific Mentor 1.005 (1.005-1.035) Urine Protein 2+ (NEGATIVE) H Urine Glucose (UA) Negative (NEGATIVE) Urine Ketones Negative (NEGATIVE) Urine Blood 3+ (NEGATIVE) H Urine Nitrite Negative (NEGATIVE) Urine Bilirubin Negative (NEGATIVE) Urine Urobilinogen Normal MG/DL (0.0-1.0) Urine Leukocyte Esterase 1+ (NEGATIVE) H Urine RBC 2-4 /HPF (0 - 2) H Urine WBC 2-4 /HPF (0 - 2) Urine Squamous Epithelial Cells Occasional /LPF Urine Bacteria Occasional /HPF (NONE) Current Medications Medications (Trade) Dose Ordered Sig/Lupe Route PRN Reason Start Time Stop Time Status Last Admin Dose Admin Acetaminophen (Tylenol) 650 mg Q4H PRN GT Mild Pain/Temp > 100.5 11/09/18 05:00 12/09/18 04:59 11/24/18 07:42 Amlodipine Besylate (Norvasc) 10 mg DAILY GT 11/09/18 09:00 12/09/18 08:59 11/24/18 08:25 Bisacodyl (Dulcolax) 10 mg DAILY PRN RECTAL Constipation 11/09/18 05:00 12/09/18 04:59 Calcium Carbonate (Tums) 500 mg EVERY 8 HOURS GT 11/09/18 14:00 12/09/18 08:59 11/24/18 13:08 Chlorhexidine Gluconate (Corazon-Hex 2%) 1 applic DAILY@2000 TOPIC 11/12/18 20:00 12/12/18 19:59 11/23/18 20:16 Dextrose (Dextrose 50%) 25 ml Q30M PRN IV Hypoglycemia 11/09/18 04:45 12/09/18 04:44 Dextrose (Dextrose 50%) 50 ml Q30M PRN IV Hypoglycemia 11/09/18 04:45 12/09/18 04:44 11/09/18 09:09 Enoxaparin Sodium (Lovenox) 40 mg DAILY SUBQ 11/09/18 09:00 12/09/18 08:59 11/24/18 08:29 Famotidine (Pepcid) 20 mg EVERY 12 HOURS GT 11/09/18 21:00 12/09/18 08:59 11/24/18 08:25 Ferrous Sulfate (Feosol) 300 mg THREE TIMES A DAY GT 11/23/18 13:00 12/23/18 12:59 11/24/18 12:17 Furosemide (Lasix) 40 mg EVERY 12 HOURS GT 11/09/18 09:00 12/09/18 08:59 11/24/18 08:25 Hydralazine HCl (Apresoline) 5 mg EVERY 8 HOURS GT 11/09/18 06:00 12/09/18 05:59 11/24/18 13:08 Insulin Aspart (NovoLOG) Q6HR SUBQ 11/09/18 06:00 12/09/18 05:59 11/24/18 12:16 Insulin Detemir (Levemir) 4 units EVERY 12 HOURS SUBQ 11/16/18 21:00 12/09/18 08:59 11/24/18 08:30 Labetalol HCl (Normodyne) 200 mg Q8HR GT 11/09/18 06:00 12/09/18 05:59 11/24/18 13:08 Levetiracetam (Keppra) 1,500 mg Q12HR GT 11/09/18 09:00 12/09/18 08:59 11/24/18 08:26 Magnesium Hydroxide (Mom) 30 ml DAILY PRN GT Constipation 11/09/18 05:00 12/09/18 04:59 Magnesium Oxide (Mag-Ox 400mg) 400 mg EVERY 8 HOURS GT 11/09/18 14:00 12/09/18 08:59 11/24/18 13:08 Metronidazole 100 ml @ 100 mls/hr Q8HR IVPB 11/21/18 22:00 11/28/18 21:59 11/24/18 13:37 Micafungin Sodium 100 mg/Sodium Chloride 100 ml @ 100 mls/hr Q24H IVPB 11/24/18 14:00 12/01/18 13:59 11/24/18 14:53 Ondansetron HCl (Zofran) 4 mg Q6H PRN GT Nausea & Vomiting 11/09/18 05:00 12/09/18 04:59 Phenobarbital (PHENobarbital) 60 mg BID GT 11/09/18 09:00 12/09/18 08:59 11/24/18 08:26 Phenytoin (Dilantin) 100 mg Q8HR GT 11/09/18 06:00 12/09/18 05:59 11/24/18 13:08 Polyethylene Glycol (Miralax) 17 gm DAILYPRN PRN GT Constipation 11/14/18 10:30 12/12/18 10:29 Polymyxin B Sulfate 257502 units/Dextrose 550 ml @ 550 mls/hr EVERY 12 HOURS IV 11/21/18 21:00 11/28/18 20:59 11/24/18 08:25 Sennosides (Senokot) 8.6 mg EVERY 12 HOURS GT 11/09/18 21:00 12/09/18 08:59 11/24/18 08:25 Valproic Acid (Depakene) 500 mg EVERY 8 HOURS GT 11/09/18 06:00 12/09/18 05:59 11/24/18 13:09 Vancomycin HCl (Vanco rx to dose) 1 ea DAILY PRN MISC Per rx protocol 11/24/18 13:00 12/24/18 12:59 Vancomycin HCl 750 mg/Sodium Chloride 275 ml @ 183.333 mls/hr Q12HR@0400,1600 IVPB 11/24/18 16:00 11/29/18 15:59 Dasha Crews MD Nov 24, 2018 15:41
[2018-11-24 16:00] VITALS: BP 126/64
[2018-11-24] MEDS: Vancomycin 750 MG in NS 275 ML IVPB SCH (16:41)
--- NOTE | 2018-11-24 18:30 | NUR ---
NURSE NOTES: Patient noted with new wound, located on left ear, unable to determine stage, wound protocol initiated. Pictures taken and uploaded to [employer]. Wound cleansed with normal saline, cavillon barrier applied, optifoam bandage applied. Charge nurse made aware. Will continue to monitor patient.
--- NOTE | 2018-11-24 19:21 | NUR ---
HAND-OFF: Report given to CHARLEE Talavera.
--- NOTE | 2018-11-24 19:22 | NUR ---
NURSE NOTES: Received a bed side report from CHARLEE Gunter.Patient stable,obtunded,no s/s of pain,no respiratory distress noted,no fever at this time,trach Shiley 8 AC14 TV 375 FiO2 30% PEEP 5 tolerated setting well,GT running with Glucerna 1.2 @65 ml/hr,no residual,BS active in all quadrants,dressings changed by previous nurse,IV asymptomatic,intact on KAITLYNN PICC line double lumen TKO, dressing changed 11/24/18,bed secured in a low safety position,call light within a reach,will continue to monitor and follow POC.
[2018-11-24 20:00] VITALS: BP 182/82
[2018-11-24] MEDS: Dyna-Hex 2% Top Sol 2oz TOPIC SCH (21:04)
[2018-11-25] VITALS: BP 98/56
[2018-11-25 03:21] LABS: MEAN CORPUSCULAR VOLUME 77 FL (80-99); PLATELET COUNT 344 K/UL (150-450); RED BLOOD COUNT 3.13 M/UL (4.20-5.40); RED CELL DISTRIBUTION WIDTH 21.5 % (11.6-14.8); WHITE BLOOD COUNT 11.6 K/UL (4.8-10.8)
[2018-11-25 03:43] LABS: ALANINE AMINOTRANSFERASE 87 U/L (12-78); ALBUMIN 1.1 G/DL (3.4-5.0); ALBUMIN/GLOBULIN RATIO 0.3 (1.0-2.7); ALKALINE PHOSPHATASE 369 U/L (46-116); ANION GAP 7 mmol/L (5-15); ASPARTATE AMINO TRANSFERASE 127 U/L (15-37); BILIRUBIN,TOTAL 0.3 MG/DL (0.2-1.0); BLOOD UREA NITROGEN 14 mg/dL (7-18); CALCIUM 7.9 MG/DL (8.5-10.1); CARBON DIOXIDE 30 MMOL/L (21-32); CHLORIDE 95 MMOL/L (98-107); CREATININE 0.3 MG/DL (0.55-1.30); POTASSIUM 3.7 MMOL/L (3.5-5.1); SODIUM 132 MMOL/L (136-145)
[2018-11-25 04:00] VITALS: BP 150/85
[2018-11-25] MEDS: Vancomycin 750 MG in NS 275 ML IVPB SCH (04:35)
[2018-11-25] MEDS: Magnesium Oxide 400mg tab GT SCH ×3 (05:22→22:04)
[2018-11-25] MEDS: Labetalol 200mg tab GT SCH ×3 (05:23→22:05)
[2018-11-25] MEDS: Tums 500mg GT SCH ×3 (05:23→22:05)
[2018-11-25] MEDS: Valproic Acid 250mg/5ml Liquid GT SCH ×3 (05:24→22:04)
[2018-11-25] MEDS: HydrALAZINE 10mg Tab GT SCH ×3 (05:24→22:05)
[2018-11-25] MEDS: Phenytoin Susp 100mg/4ml GT SCH ×3 (05:24→22:05)
[2018-11-25] MEDS: NovoLOG Insulin Flexpen SUBQ SCH ×4 (05:25→23:54)
--- NOTE | 2018-11-25 07:13 | NUR ---
HAND-OFF: Report given to CHARLEE Meeks.Patient stable.
--- NOTE | 2018-11-25 07:13 | NUR ---
RESPIRATORY NOTE: Received pt on vent AC 14 VT 375 30% PEEP +5. Pt has shiley cuffed 8. Trach is patent and secure. Bilateral clear diminished breath sounds. SUction with small to moderate amounts of thick/yellow secretions, no complications. Alarms are on and audible. Vent is plugged into red outlet. [place] and back up trach at bedside. Will continue to monitor.
--- NOTE | 2018-11-25 07:15 | NUR ---
NURSE NOTES: Received change of shift report from Sadaf DESHPANDE. Pt is obtunded. No pupil response to penlight. Pt is hx/status post trach, Shiley 8.0 connected to vent, with settings AC14, [id number], Peep 5.0, FIO2 30% with O2sat at 100%. Bilateral rhonchi is heard on auscultation. Tele monitor is on pt, displaying NSR with heart rate in the 90's. Bilateral bounding radial and weak pedal pulses are noted on palpation with generalized edemal. Right upper arm double lumen PICC is present, currently saline locked/TKO. Oral Temp 99.4F. Pt has PEG, with GT feeding infusing Glucerna 1.2 at goal rate of 65ml/hour. Pt is tolerating feeding well with no noted residual. Abdomen is large, round, soft/nontender to touch with hypoactive bowel sounds. Ospnia catheter is in place, draining dark yellow/orange urine. Skin has full-thickness wound on sacrum, bilateral heel DTI and left ear skin tear, all covered with optifoam dressings. Pt is on P200 pressure releasing mattress. Bed in locked with three side rails up, in lowest position, head of bed at 30degrees and call light within reach. Will continue to monitor pt and follow plan of care per MD orders and protocol.
[2018-11-25 08:00] VITALS: BP 116/59
--- NOTE | 2018-11-25 08:42 | Hematology/Onc Progress Note ---
Assessment/Plan Assessment/Plan # Anemia of chronic disease due to underlying chronic medical issues, multifactorial --> Anemia workup has been reviewed and cw acd --> No evidence of hemolysis is noted, peripheral smear has been reviewed. --> Hgb goal >7. Transfuse prn. --> hgb trend 9.1-->8.9-->9-->8.9-->8.9->7.8->8.7-->9-->8 --> Epogen or iron indication prn --> Medications have been reviewed --> low threshold for gi evaluation in case has occult + --> bone marrow biopsy is not indicated given the other more likely causes # Leukocytosis iwth Sepsis secondary to UTI, GPC Staph Epidermidis bacteremia, Line associated infection - patient arrived to the Hospital with PICC --> as per ID consult appreciate Rec --> Continue antibiotics per ID: Continue Zosyn and vancomycin, anti fungal added--> kaykay/vanc, diflucan-->flagyl, vanc --> imaging noted # Thrombocytosis is likely due to underlying reactive process --> if doesn't improve send off jak2 --> plt count 641k-->402k-->344 # Transaminitis --> trend lft's --> GI consult, apprec recs --> ab us: reviewed # Elevated troponin secondary to sepsis versus ACS --> as per Cardiology consult, appreciate recs --> now better # Hypertension- improved --> sbp goal <150 # Vent dependent with trach --> as per Pulmonary recs # Hypokalemia # Dysphagia s/p gtube feeds # CHf hx with hyponatremia --> 1l fluid restriction # Dvt ppx with lovenox The timing of this note does not necessarily reflect the time of the patient was seen. GREATLY APPRECIATE CONSULTATION. Subjective Constitutional: Denies: no symptoms, chills, fever, malaise, weakness, other HEENT: Denies: no symptoms, eye pain, blurred vision, tearing, double vision, ear pain, ear discharge, nose pain, nose congestion, throat pain, throat swelling, mouth pain, mouth swelling, other Cardiovascular: Denies: no symptoms, chest pain, edema, irregular heart rate, lightheadedness, palpitations, syncope, other Gastrointestinal/Abdominal: Denies: no symptoms, abdomen distended, abdominal pain, black stools, tarry stools, blood in stool, constipated, diarrhea, difficulty swallowing, nausea, poor appetite, poor fluid intake, rectal bleeding , vomiting, other Genitourinary: Denies: no symptoms, burning, discharge, frequency, flank pain, hematuria, incontinence, pain, urgency, other Neurologic/Psychiatric: Denies: no symptoms, anxiety, depressed, emotional problems, headache, numbness, paresthesia, pre-existing deficit, seizure, tingling, tremors, weakness, other Endocrine: Denies: no symptoms, excessive sweating, flushing, intolerance to cold, intolerance to heat, increased hunger, increased thirst, increased urine, unexplained weight gain, unexplained weight loss, other Hematologic/Lymphatic: Denies: no symptoms, anemia, easy bleeding, easy bruising, adenopathy, other Allergies: Coded Allergies: Crayfish (Unverified Allergy, Unknown, 11/11/18) Uncoded Allergies: Crawfish (Allergy, Unknown, 11/09/18) Subjective 11/14: no events to report, labs relatively stable, hgb 8.9, on vent 11/15: no bleeding, no chills, labs reviewed, no major changes 11/16: cxr-->bilateral interstitial edema, vs stable, on abx, on vent, contact isolation 11/17: labs reviewed, on abx, vs stable, on vent, no distress 11/18: remains on gtube feeds, is on vent, on kaykay/vanc 11/20: no events, no bleeding, kaykay, vanc, diflucan, no f/c 11/21: remains on vent, gtube feeds, no major changes, no bleeding 11/22: ct abdomen pelvis w/contrast reviewed, vs stable, no acute events, labs reviewed, remains intubated, low grade fever 11/23: reviewed meds, abx have been changed, remains altered currently 11/24: labs reviewed, vs stable, med reviewed, no sob, no distress, on vent 11/25: remains on vent, no major events, on glucerna, fluid restriction Objective Objective Current Medications Medications (Trade) Dose Ordered Sig/Lupe Route PRN Reason Start Time Stop Time Status Last Admin Dose Admin Acetaminophen (Tylenol) 650 mg Q4H PRN GT Mild Pain/Temp > 100.5 11/09/18 05:00 12/09/18 04:59 11/24/18 21:50 Amlodipine Besylate (Norvasc) 10 mg DAILY GT 11/09/18 09:00 12/09/18 08:59 11/24/18 08:25 Bisacodyl (Dulcolax) 10 mg DAILY PRN RECTAL Constipation 11/09/18 05:00 12/09/18 04:59 Calcium Carbonate (Tums) 500 mg EVERY 8 HOURS GT 11/09/18 14:00 12/09/18 08:59 11/25/18 05:23 Chlorhexidine Gluconate (Corazon-Hex 2%) 1 applic DAILY@2000 TOPIC 11/12/18 20:00 12/12/18 19:59 11/24/18 21:04 Dextrose (Dextrose 50%) 25 ml Q30M PRN IV Hypoglycemia 11/09/18 04:45 12/09/18 04:44 Dextrose (Dextrose 50%) 50 ml Q30M PRN IV Hypoglycemia 11/09/18 04:45 12/09/18 04:44 11/09/18 09:09 Enoxaparin Sodium (Lovenox) 40 mg DAILY SUBQ 11/09/18 09:00 12/09/18 08:59 11/24/18 08:29 Famotidine (Pepcid) 20 mg EVERY 12 HOURS GT 11/09/18 21:00 12/09/18 08:59 11/24/18 21:07 Ferrous Sulfate (Feosol) 300 mg THREE TIMES A DAY GT 11/23/18 13:00 12/23/18 12:59 11/24/18 17:05 Furosemide (Lasix) 40 mg EVERY 12 HOURS GT 11/09/18 09:00 12/09/18 08:59 11/24/18 21:06 Hydralazine HCl (Apresoline) 5 mg EVERY 8 HOURS GT 11/09/18 06:00 12/09/18 05:59 11/25/18 05:24 Insulin Aspart (NovoLOG) Q6HR SUBQ 11/09/18 06:00 12/09/18 05:59 11/24/18 23:43 Insulin Detemir (Levemir) 4 units EVERY 12 HOURS SUBQ 11/16/18 21:00 12/09/18 08:59 11/24/18 21:50 Labetalol HCl (Normodyne) 200 mg Q8HR GT 11/09/18 06:00 12/09/18 05:59 11/25/18 05:23 Levetiracetam (Keppra) 1,500 mg Q12HR GT 11/09/18 09:00 12/09/18 08:59 11/24/18 21:06 Magnesium Hydroxide (Mom) 30 ml DAILY PRN GT Constipation 11/09/18 05:00 12/09/18 04:59 Magnesium Oxide (Mag-Ox 400mg) 400 mg EVERY 8 HOURS GT 11/09/18 14:00 12/09/18 08:59 11/25/18 05:22 Metronidazole 100 ml @ 100 mls/hr Q8HR IVPB 11/21/18 22:00 11/28/18 21:59 11/25/18 05:27 Micafungin Sodium 100 mg/Sodium Chloride 100 ml @ 100 mls/hr Q24H IVPB 11/24/18 14:00 12/01/18 13:59 11/24/18 14:53 Ondansetron HCl (Zofran) 4 mg Q6H PRN GT Nausea & Vomiting 11/09/18 05:00 12/09/18 04:59 Phenobarbital (PHENobarbital) 60 mg BID GT 11/09/18 09:00 12/09/18 08:59 11/24/18 17:06 Phenytoin (Dilantin) 100 mg Q8HR GT 11/09/18 06:00 12/09/18 05:59 11/25/18 05:24 Polyethylene Glycol (Miralax) 17 gm DAILYPRN PRN GT Constipation 11/14/18 10:30 12/12/18 10:29 Polymyxin B Sulfate 440254 units/Dextrose 550 ml @ 550 mls/hr EVERY 12 HOURS IV 11/21/18 21:00 11/28/18 20:59 11/24/18 21:07 Sennosides (Senokot) 8.6 mg EVERY 12 HOURS GT 11/09/18 21:00 12/09/18 08:59 11/24/18 21:07 Valproic Acid (Depakene) 500 mg EVERY 8 HOURS GT 11/09/18 06:00 12/09/18 05:59 11/25/18 05:24 Vancomycin HCl (Vanco rx to dose) 1 ea DAILY PRN MISC Per rx protocol 11/24/18 13:00 12/24/18 12:59 Vancomycin HCl 750 mg/Sodium Chloride 275 ml @ 183.333 mls/hr Q12HR@0400,1600 IVPB 11/24/18 16:00 11/29/18 15:59 11/25/18 04:35 Last 24 Hour Vital Signs Date Time Temp Pulse Resp B/P (MAP) Pulse Ox O2 Delivery O2 Flow Rate FiO2 11/25/18 07:13 96 25 30 11/25/18 05:24 158/83 11/25/18 05:23 86 158/83 11/25/18 05:07 108 27 30 11/25/18 04:00 Mechanical Ventilator 11/25/18 04:00 100.0 105 18 150/85 (106) 99 11/25/18 04:00 30 11/25/18 03:33 103 11/25/18 03:05 87 20 30 11/25/18 01:30 90 27 30 11/25/18 00:00 84 11/25/18 00:00 Mechanical Ventilator 11/25/18 00:00 99.4 87 18 98/56 (70) 99 11/24/18 23:09 87 20 30 11/24/18 22:20 100.1 11/24/18 21:05 117 182/86 11/24/18 21:05 182/86 11/24/18 21:01 86 24 30 11/24/18 20:18 121 24 30 11/24/18 20:08 114 11/24/18 20:00 30 11/24/18 20:00 102.1 117 18 182/82 (115) 100 11/24/18 20:00 Mechanical Ventilator 11/24/18 17:18 98.4 11/24/18 17:00 92 25 30 11/24/18 16:00 99.5 87 20 126/64 (84) 100 11/24/18 16:00 85 11/24/18 16:00 30 11/24/18 16:00 Mechanical Ventilator 11/24/18 14:30 84 20 30 11/24/18 13:08 88 128/66 11/24/18 13:08 128/66 11/24/18 12:43 88 23 30 11/24/18 12:00 98.1 99 20 128/66 (86) 100 11/24/18 12:00 86 11/24/18 12:00 30 11/24/18 12:00 Mechanical Ventilator 11/24/18 10:44 86 24 30 11/24/18 09:00 99.9 11/24/18 08:50 93 20 30 11/24/18 08:25 99 126/76 11/24/18 08:00 98 11/24/18 08:00 30 11/24/18 08:00 Mechanical Ventilator 11/24/18 07:51 102.6 99 20 126/76 (93) 100 11/24/18 06:37 101 25 30 11/24/18 06:01 112 176/92 11/24/18 06:01 176/192 11/24/18 05:06 92 19 30 11/24/18 04:00 98.2 99 20 176/92 (120) 100 11/24/18 04:00 Mechanical Ventilator 11/24/18 04:00 30 11/24/18 03:33 107 11/24/18 02:33 102 22 30 11/24/18 01:02 97 20 30 11/24/18 00:00 Mechanical Ventilator 11/24/18 00:00 98.2 91 20 140/107 (118) 100 11/23/18 23:34 89 11/23/18 22:54 85 22 30 11/23/18 22:00 81 95/53 11/23/18 22:00 95/53 11/23/18 21:04 96 18 30 11/23/18 20:00 101.5 99 21 146/70 (95) 100 11/23/18 20:00 Mechanical Ventilator 11/23/18 20:00 30 11/23/18 19:39 97 11/23/18 19:09 103 24 30 11/23/18 16:38 92 18 30 11/23/18 16:00 89 11/23/18 15:58 99.0 89 20 138/74 (95) 100 11/23/18 15:58 30 11/23/18 15:58 Mechanical Ventilator 11/23/18 14:33 88 19 30 11/23/18 13:06 89 144/86 11/23/18 13:06 144/86 11/23/18 12:39 89 23 30 11/23/18 12:00 89 11/23/18 12:00 Mechanical Ventilator 11/23/18 12:00 30 11/23/18 11:44 98.2 89 20 144/86 (105) 100 11/23/18 10:31 90 22 30 11/23/18 08:46 91 21 30 Intake and Output 11/24/18 11/25/18 19:00 07:00 Intake Total 950 ml 2005.000 ml Output Total 1000 ml 750 ml Balance -50 ml 1255.000 ml Intake Free Water 300 ml 200 ml IV Total 1025.000 ml Tube Feeding 650 ml 780 ml Output Urine Total 1000 ml 750 ml # Bowel Movements 4 2 Labs Test 11/23/18 04:00 11/24/18 03:20 11/24/18 13:45 11/25/18 03:00 White Blood Count 7.7 K/UL (4.8-10.8) 13.4 K/UL (4.8-10.8) 11.6 K/UL (4.8-10.8) Red Blood Count 3.19 M/UL (4.20-5.40) 3.59 M/UL (4.20-5.40) 3.13 M/UL (4.20-5.40) Hemoglobin 8.1 G/DL (12.0-16.0) 9.0 G/DL (12.0-16.0) 8.0 G/DL (12.0-16.0) Hematocrit 24.7 % (37.0-47.0) 27.6 % (37.0-47.0) 24.0 % (37.0-47.0) Mean Corpuscular Volume 77 FL (80-99) 77 FL (80-99) 77 FL (80-99) Mean Corpuscular Hemoglobin 25.3 PG (27.0-31.0) 25.1 PG (27.0-31.0) 25.5 PG (27.0-31.0) Mean Corpuscular Hemoglobin Concent 32.7 G/DL (32.0-36.0) 32.5 G/DL (32.0-36.0) 33.3 G/DL (32.0-36.0) Red Cell Distribution Width 22.2 % (11.6-14.8) 21.6 % (11.6-14.8) 21.5 % (11.6-14.8) Platelet Count 388 K/UL (150-450) 402 K/UL (150-450) 344 K/UL (150-450) Mean Platelet Volume 5.3 FL (6.5-10.1) 5.3 FL (6.5-10.1) 5.4 FL (6.5-10.1) Neutrophils (%) (Auto) 77.6 % (45.0-75.0) 84.7 % (45.0-75.0) % (45.0-75.0) Lymphocytes (%) (Auto) 15.4 % (20.0-45.0) 8.7 % (20.0-45.0) % (20.0-45.0) Monocytes (%) (Auto) 3.9 % (1.0-10.0) 3.5 % (1.0-10.0) % (1.0-10.0) Eosinophils (%) (Auto) 2.4 % (0.0-3.0) 2.7 % (0.0-3.0) % (0.0-3.0) Basophils (%) (Auto) 0.6 % (0.0-2.0) 0.3 % (0.0-2.0) % (0.0-2.0) Sodium Level 136 MMOL/L (136-145) 134 MMOL/L (136-145) 132 MMOL/L (136-145) Potassium Level 3.3 MMOL/L (3.5-5.1) 4.0 MMOL/L (3.5-5.1) 3.7 MMOL/L (3.5-5.1) Chloride Level 98 MMOL/L (98-107) 96 MMOL/L (98-107) 95 MMOL/L (98-107) Carbon Dioxide Level 33 MMOL/L (21-32) 32 MMOL/L (21-32) 30 MMOL/L (21-32) Anion Gap 5 mmol/L (5-15) 6 mmol/L (5-15) 7 mmol/L (5-15) Blood Urea Nitrogen 13 mg/dL (7-18) 11 mg/dL (7-18) 14 mg/dL (7-18) Creatinine 0.3 MG/DL (0.55-1.30) 0.3 MG/DL (0.55-1.30) 0.3 MG/DL (0.55-1.30) Estimat Glomerular Filtration Rate mL/min (>60) mL/min (>60) mL/min (>60) Glucose Level 107 MG/DL (74-106) 106 MG/DL (74-106) 111 MG/DL (74-106) Calcium Level 8.0 MG/DL (8.5-10.1) 8.3 MG/DL (8.5-10.1) 7.9 MG/DL (8.5-10.1) Total Bilirubin 0.2 MG/DL (0.2-1.0) 0.2 MG/DL (0.2-1.0) 0.3 MG/DL (0.2-1.0) Aspartate Amino Transf (AST/SGOT) 126 U/L (15-37) 116 U/L (15-37) 127 U/L (15-37) Alanine Aminotransferase (ALT/SGPT) 101 U/L (12-78) 93 U/L (12-78) 87 U/L (12-78) Alkaline Phosphatase 264 U/L (46-116) 300 U/L (46-116) 369 U/L (46-116) Total Protein 5.6 G/DL (6.4-8.2) 6.1 G/DL (6.4-8.2) 5.4 G/DL (6.4-8.2) Albumin 1.1 G/DL (3.4-5.0) 1.2 G/DL (3.4-5.0) 1.1 G/DL (3.4-5.0) Globulin 4.5 g/dL 4.9 g/dL 4.3 g/dL Albumin/Globulin Ratio 0.2 (1.0-2.7) 0.2 (1.0-2.7) 0.3 (1.0-2.7) Urine Color Pale yellow Urine Appearance Clear Urine pH 6.5 (4.5-8.0) Urine Specific [place] 1.005 (1.005-1.035) Urine Protein 2+ (NEGATIVE) Urine Glucose (UA) Negative (NEGATIVE) Urine Ketones Negative (NEGATIVE) Urine Blood 3+ (NEGATIVE) Urine Nitrite Negative (NEGATIVE) Urine Bilirubin Negative (NEGATIVE) Urine Urobilinogen Normal MG/DL (0.0-1.0) Urine Leukocyte Esterase 1+ (NEGATIVE) Urine RBC 2-4 /HPF (0 - 2) Urine WBC 2-4 /HPF (0 - 2) Urine Squamous Epithelial Cells Occasional /LPF Urine Bacteria Occasional /HPF (NONE) Differential Total Cells Counted 100 Neutrophils % (Manual) 88 % (45-75) Lymphocytes % (Manual) 8 % (20-45) Monocytes % (Manual) 1 % (1-10) Eosinophils % (Manual) 3 % (0-3) Basophils % (Manual) 0 % (0-2) Band Neutrophils 0 % (0-8) Platelet Estimate Adequate Platelet Morphology Normal Hypochromasia 2+ Anisocytosis 3+ Microcytosis 1+ Spherocytes 1+ Micro Microbiology Date/Time Source Procedure Growth Status 11/24/18 14:30 Sputum Induced Gram Stain - Final Resulted 11/24/18 14:30 Sputum Induced Sputum Culture Pending Resulted 11/24/18 13:45 Indwelling Cath Urine Culture - Preliminary NO GROWTH Resulted Height (Feet): 5 Height (Inches): 8.00 Weight (Pounds): 210 Objective Physical Exam: Vitals: reviewed Gen: NAD HEENT: normocephalic, atraumatic Neck: non-tender, normal alignment ++ vent/trach Respiratory: normal breath sounds bilaterally CV: normal peripheral pulses, rrr Abdomen: normal bowel sounds, soft, nontender +gtube Extremities: 1-2+ edema, normal range of motion Yonathan Hernandez MD Nov 25, 2018 08:42
[2018-11-25] MEDS: Ferrous Sulfate 300 MG/5 ML UDC GT SCH ×3 (09:04→17:07)
[2018-11-25] MEDS: levETIRAcetam 500mg/5ml Liquid GT SCH ×2 (09:04→20:40)
[2018-11-25] MEDS: Furosemide 40mg tab GT SCH ×2 (09:05→20:41)
[2018-11-25] MEDS: PHENobarbital Elixir 30mg/7.5ml GT SCH ×2 (09:05→17:07)
[2018-11-25] MEDS: Polymyxin B Sulfate 500,000 UNITS in D5W 500ml 550 ML IV SCH ×2 (09:07→20:40)
[2018-11-25] MEDS: Levemir Flexpen SUBQ SCH ×2 (09:13→20:44)
[2018-11-25] MEDS: Enoxaparin 40mg Inj SUBQ SCH (09:14)
[2018-11-25] MEDS: Sennosides 8.6mg tab GT SCH ×2 (09:14→20:40)
--- NOTE | 2018-11-25 09:30 | NUR ---
NURSE NOTES: AM meds were administered. Oral care done. Pt has tongue abnormality with tongue protruding out of the mouth and severe dryness, skin pealing at the tip of the tongue. During oral care, I was able to gently remove the dry skin of the left-tip of the tongue. Pt has been repositioned. Temp is now 99.4F axillary.
--- NOTE | 2018-11-25 10:25 | Surgery Progress Note ---
Surgery Progress Note Subjective Additional Comments Patient seen and examined bedside. No acute events. Exam stable. Still has significant edema around the face neck and tongue. Labs noted. Objective Last 24 Hour Vital Signs Date Time Temp Pulse Resp B/P (MAP) Pulse Ox O2 Delivery O2 Flow Rate FiO2 11/25/18 09:10 100 25 30 11/25/18 09:06 93 116/59 11/25/18 08:00 30 11/25/18 08:00 99.8 93 20 116/59 (78) 100 11/25/18 08:00 Mechanical Ventilator 11/25/18 07:13 96 25 30 11/25/18 05:24 158/83 11/25/18 05:23 86 158/83 11/25/18 05:07 108 27 30 11/25/18 04:00 Mechanical Ventilator 11/25/18 04:00 100.0 105 18 150/85 (106) 99 11/25/18 04:00 30 11/25/18 03:33 103 11/25/18 03:05 87 20 30 11/25/18 01:30 90 27 30 11/25/18 00:00 84 11/25/18 00:00 Mechanical Ventilator 11/25/18 00:00 99.4 87 18 98/56 (70) 99 11/24/18 23:09 87 20 30 11/24/18 22:20 100.1 11/24/18 21:05 117 182/86 11/24/18 21:05 182/86 11/24/18 21:01 86 24 30 11/24/18 20:18 121 24 30 11/24/18 20:08 114 11/24/18 20:00 30 11/24/18 20:00 102.1 117 18 182/82 (115) 100 11/24/18 20:00 Mechanical Ventilator 11/24/18 17:18 98.4 11/24/18 17:00 92 25 30 11/24/18 16:00 99.5 87 20 126/64 (84) 100 11/24/18 16:00 85 11/24/18 16:00 30 11/24/18 16:00 Mechanical Ventilator 11/24/18 14:30 84 20 30 11/24/18 13:08 88 128/66 11/24/18 13:08 128/66 11/24/18 12:43 88 23 30 11/24/18 12:00 98.1 99 20 128/66 (86) 100 11/24/18 12:00 86 11/24/18 12:00 30 11/24/18 12:00 Mechanical Ventilator 11/24/18 10:44 86 24 30 I&O Intake and Output 11/24/18 11/25/18 19:00 07:00 Intake Total 950 ml 2005.000 ml Output Total 1000 ml 750 ml Balance -50 ml 1255.000 ml Intake Free Water 300 ml 200 ml IV Total 1025.000 ml Tube Feeding 650 ml 780 ml Output Urine Total 1000 ml 750 ml # Bowel Movements 4 2 Dressing: saturated Wound: other Drains: other Cardiovascular: RSR Respiratory: decreased breath sounds Abdomen: soft, present bowel sounds, other, non-distended Extremities: other Laboratory Tests Test 11/24/18 13:45 11/25/18 03:00 Urine Color Pale yellow Urine Appearance Clear Urine pH 6.5 (4.5-8.0) Urine Specific [place] 1.005 (1.005-1.035) Urine Protein 2+ (NEGATIVE) H Urine Glucose (UA) Negative (NEGATIVE) Urine Ketones Negative (NEGATIVE) Urine Blood 3+ (NEGATIVE) H Urine Nitrite Negative (NEGATIVE) Urine Bilirubin Negative (NEGATIVE) Urine Urobilinogen Normal MG/DL (0.0-1.0) Urine Leukocyte Esterase 1+ (NEGATIVE) H Urine RBC 2-4 /HPF (0 - 2) H Urine WBC 2-4 /HPF (0 - 2) Urine Squamous Epithelial Cells Occasional /LPF Urine Bacteria Occasional /HPF (NONE) White Blood Count 11.6 K/UL (4.8-10.8) H Red Blood Count 3.13 M/UL (4.20-5.40) L Hemoglobin 8.0 G/DL (12.0-16.0) L Hematocrit 24.0 % (37.0-47.0) L Mean Corpuscular Volume 77 FL (80-99) L Mean Corpuscular Hemoglobin 25.5 PG (27.0-31.0) L Mean Corpuscular Hemoglobin Concent 33.3 G/DL (32.0-36.0) Red Cell Distribution Width 21.5 % (11.6-14.8) H Platelet Count 344 K/UL (150-450) Mean Platelet Volume 5.4 FL (6.5-10.1) L Neutrophils (%) (Auto) % (45.0-75.0) Lymphocytes (%) (Auto) % (20.0-45.0) Monocytes (%) (Auto) % (1.0-10.0) Eosinophils (%) (Auto) % (0.0-3.0) Basophils (%) (Auto) % (0.0-2.0) Differential Total Cells Counted 100 Neutrophils % (Manual) 88 % (45-75) H Lymphocytes % (Manual) 8 % (20-45) L Monocytes % (Manual) 1 % (1-10) Eosinophils % (Manual) 3 % (0-3) Basophils % (Manual) 0 % (0-2) Band Neutrophils 0 % (0-8) Platelet Estimate Adequate Platelet Morphology Normal Hypochromasia 2+ Anisocytosis 3+ Microcytosis 1+ Spherocytes 1+ Sodium Level 132 MMOL/L (136-145) L Potassium Level 3.7 MMOL/L (3.5-5.1) Chloride Level 95 MMOL/L (98-107) L Carbon Dioxide Level 30 MMOL/L (21-32) Anion Gap 7 mmol/L (5-15) Blood Urea Nitrogen 14 mg/dL (7-18) Creatinine 0.3 MG/DL (0.55-1.30) L Estimat Glomerular Filtration Rate mL/min (>60) Glucose Level 111 MG/DL (74-106) H Calcium Level 7.9 MG/DL (8.5-10.1) L Total Bilirubin 0.3 MG/DL (0.2-1.0) Aspartate Amino Transf (AST/SGOT) 127 U/L (15-37) H Alanine Aminotransferase (ALT/SGPT) 87 U/L (12-78) H Alkaline Phosphatase 369 U/L (46-116) H Total Protein 5.4 G/DL (6.4-8.2) L Albumin 1.1 G/DL (3.4-5.0) L Globulin 4.3 g/dL Albumin/Globulin Ratio 0.3 (1.0-2.7) L Plan Problems: (1) Fever (2) Tongue abnormality Assessment & Plan: patients jaw clenched closed and tongue has been stuck for some time. tongue split from middle teeth and now in two. edema and unable to reduce keep tongue moist. apply lube jelly prn dryness. will monitor do not recommend surgical intervention for this current medical condition spoke with family. ENT plan to see. OMFS no intervention (3) Tracheostomy dependence (4) Sepsis Assessment & Plan: gb no stones 6mm polyp no acute surgical intervention planned trend labs improving labs improved DAILY ESTIMATED NEEDS: Needs based on Critical care, sepsis, wound 60kg adj 22-30 kcals/kg [id number] total kcals 1.25-2 g protein/kg 75-120 g total protein Fluid per MD, on lasix NUTRITION DIAGNOSIS: * Swallowing difficulty r/t respiratory status as evidenced by pt is vent dep via trach and PEG dep. * Increased kcal and pro needs r/t wound healing and sepsis as evidenced by pt w/ sacral and R heel wounds, febrile (Tmax 101.5). CURRENT TF: Jevity 1.2 @50 ml/hr x16 hrs ENTERAL NUTRITION RECOMMENDATIONS: Glucerna 1.2 @65ml/hr x18 hrs + Prosource x1 daily to provide 1170ml, 1404 kcal, 70g pro + 11g pro, 942 free H2O - REC TF CHANGE AND INCREASE TO BETTER MEET EST NEEDS - TF TO BE HELD FOR ONE HR BEFORE AND AFTER DILANTIN MEDS - START @20ML/HR, ADVANCE TOLERATED 15ML/HR Q4-6 HRS TO GOAL - FLUSH PER MD, HOB OVRE 30 DEGREES ADDITIONAL RECOMMENDATIONS: 1) CALIBRATED BED SCALE W/ ADDED P200 MATTRESS + PUMP 2) ON LASIX, MONITOR LYTES AND HYDRATION STATUS DAILY 3) TF TO RUN A MAX OF 18 HRS/DAY W/ DILANTIN TID PER PHARMACY 4) REC TF CHANGE TO CARB CONTROL FORMULA 5) WOUND CARE: ADD CHAYITO BID + VIT C 250MG DAILY (5) Fever Assessment & Plan: CT A/P with findings Impression: No definite acute process Diverticulosis. No evidence of diverticulitis Extensive edema of the subcutaneous fat. 2 cm focal fluid collection/edema seen within the incision Moderate amount retained dense stool. Correlate with any clinical history of constipation Hiatal hernia. Gastrostomy Left renal parapelvic cysts Apparent prior hysterectomy (6) Decubitus skin ulcer Assessment & Plan: Pt presented on admission with full thickness sacral pressure injury.Base of wound is 20% necrotic , 80% slough. borders are macerated . Mild odor noted. (L)8.4cm x (W) 6.5cm. Periwound skin tone is darker without erythema,induration or elevation in skin temp. Both heels are non -blanchable and both are fluctuant when palpated. Tx.Plan: Clean wound with saline. Apply Therahoney. Aply Moisture Barrier paste periwound. Cover with Optifoam drsg. Change every 3 days and prn. Apply Cavilon Skin BArrier to both heels. Cover each heel with Optifoam drsg. Change every 7 days and prn. APM/DEIRDRE mattress overlay. Reposition at least every 2hours or as tolerated. Off-load heels with pillow. will follow with recs thank you Preet Hylton Nov 25, 2018 10:25
[2018-11-25 12:00] VITALS: BP 111/62
--- NOTE | 2018-11-25 12:15 | NUR ---
NURSE NOTES: Pt remains obtunded, no pupil response to penlight. VS currently stable with tele monitor reading NSR. [id number] settings continued from this AM with O2sat at 100%. Pt is tolerating GT feeding with no noted residual. Ospina catheter continues to drain dark yellow/orange urine. Pt has been repositioned with bilateral extremities elevated on pillows. PICC line is intact/patent.
--- NOTE | 2018-11-25 13:59 | General Progress Note ---
Assessment/Plan Problem List: (1) MRSA (methicillin resistant staphylococcus aureus) pneumonia ICD Codes: J15.212 - Pneumonia due to Methicillin resistant Staphylococcus aureus SNOMED: 450734041372844 (2) Fever ICD Codes: R50.9 - Fever, unspecified SNOMED: 836390332 (3) UTI (urinary tract infection) ICD Codes: N39.0 - Urinary tract infection, site not specified SNOMED: 21471915 (4) Tracheostomy dependence ICD Codes: Z93.0 - Tracheostomy status SNOMED: 799247731 (5) Ventilator dependence ICD Codes: Z99.11 - Dependence on respirator [ventilator] status SNOMED: 230986988 (6) Protein calorie malnutrition ICD Codes: E46 - Unspecified protein-calorie malnutrition SNOMED: 055459516 (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 SNOMED: 49814538 (8) Drug rash ICD Codes: L27.0 - Generalized skin eruption due to drugs and medicaments taken internally SNOMED: 25373377 (9) Gram-negative pneumonia ICD Codes: J15.6 - Pneumonia due to other Gram-negative bacteria SNOMED: 775704567 (10) Line sepsis ICD Codes: T85.79XA - Infection and inflammatory reaction due to other internal prosthetic devices, implants and grafts, initial encounter; A41.9 - Sepsis, unspecified organism SNOMED: 59052650, 559392833 (11) Bacteremia ICD Codes: R78.81 - Bacteremia SNOMED: 7601925 Status: stable Assessment/Plan: 78-year-old female who is trach dependent who was brought in by [facility] for sepsis and found to have UTI and bacteremia. persistent high grade fevers and leukocytosis #gold leaf roller bacteremia/line infection, e.coli line infection, sacral wound infection, gram neg pna, enterococcus uti, sepsis, persistent fevers, trach, vent fungemia risk, ? fungal uti vs colonization ID consult appreciate Rec Vancomycin and Meropenem started 11/16 ( Zosyn stopped) , fungal coverage with Diflucan added 11/18. Repeat sputum cultures with RAULTELLA PLANTICOA and PROVIDENCIA STUARTI resistant to most antibiotics Developed morbilliform rash on meropenem, this was stopped and rash is better, has persistent fevers. Started Polymyxin and flagyl 11/21. Added vancomycin and micafungin on 11/24. picc cultures, no growth so far. repeat sputum cultures are pending. Discussed with daughter at bedside. CT abdomen pelvis shows no acute process Removed PICC and place new line 11/13/18 Echo to eval for vegetation negative Chest x-ray reviewed, no change # Transaminitis - trend lft's - GI consult, appreciate recs - ab us: reviewed - f/u hep panel #Elevated troponin secondary to sepsis versus ACS Cardiology consult, appreciate recs Medications per cardiology #Microcytic anemia- mixed anemia of chronic inflammation and iron deficiency. Start ferrous sulfate TID #Hypertension- improved Continue current medications, hydralazine as needed hypertension #Vent dependent Pulmonary consult, appreciate recs Vent management per pulmonary #Hypokalemia Replace, continue to monitor # Chronic tongue wound Supportive care On examination the patient has a sharp lower incisor present that is likely the culprit for the tongue laceration when she was intubated in the prior hospitalization at [facility] OMFS consultation Dr. Benavides completed ( no note left ) and I spoke with him over the phone after the visit. He does not recommend any surgery. ONLY bite block MOLT if available to decompress the tongue and get the remainder teeth out of the tongue way. Keep moisture in the lips and tongue. ENT consult with Dr. Emerson Cheung # History of mood disorder Seen by psychiatry and on Depakote. Level was checked # Seizure history - Discussed with Dr. Eric who knew the patient from [facility] and confirmed that she did have seizure activity and was on multiple AED regimen. - Will continue Depakote ( 28 level ) and (Phenytoin 4.3 ) - no active seizure activity at this time. Keep current dose. - Both Dr. Eric and Mariana not available to come to [facility] for consult and not acute need at this time. #Diabetes Mellitus - glucose noted in the 90-110's - Decreased Levemir to 4 units q 12 hours # Disposition - SNF when cleared by ID. Still febrile. Full code timing of this note may not reflect time of encounter. I spent 40 minutes on this encounter. Great than 50 percent spent of care planning. Subjective Date patient seen: Nov 25, 2018 ROS Limited/Unobtainable: Yes Allergies: Coded Allergies: Crayfish (Unverified Allergy, Unknown, 11/11/18) Uncoded Allergies: Crawfish (Allergy, Unknown, 11/09/18) Subjective obtunded on vent, high grade fevers T102.6 Ct abdomen pelvis done for persistent fevers no acute pathology On broad spectrum antibiotics. Added micafungin and vancomycin 11/25/18 per ID Unable to get ENT consult wbc trending down picc culture no growth repeat sputum cultures pending Objective Last 24 Hour Vital Signs Date Time Temp Pulse Resp B/P (MAP) Pulse Ox O2 Delivery O2 Flow Rate FiO2 11/25/18 13:06 98 21 30 11/25/18 10:52 99 21 30 11/25/18 09:10 100 25 30 11/25/18 09:06 93 116/59 11/25/18 08:00 93 11/25/18 08:00 30 11/25/18 08:00 99.8 93 20 116/59 (78) 100 11/25/18 08:00 Mechanical Ventilator 11/25/18 07:13 96 25 30 11/25/18 05:24 158/83 11/25/18 05:23 86 158/83 11/25/18 05:07 108 27 30 11/25/18 04:00 Mechanical Ventilator 11/25/18 04:00 100.0 105 18 150/85 (106) 99 11/25/18 04:00 30 11/25/18 03:33 103 11/25/18 03:05 87 20 30 11/25/18 01:30 90 27 30 11/25/18 00:00 84 11/25/18 00:00 Mechanical Ventilator 11/25/18 00:00 99.4 87 18 98/56 (70) 99 11/24/18 23:09 87 20 30 11/24/18 22:20 100.1 11/24/18 21:05 117 182/86 11/24/18 21:05 182/86 11/24/18 21:01 86 24 30 11/24/18 20:18 121 24 30 11/24/18 20:08 114 11/24/18 20:00 30 11/24/18 20:00 102.1 117 18 182/82 (115) 100 11/24/18 20:00 Mechanical Ventilator 11/24/18 17:18 98.4 11/24/18 17:00 92 25 30 11/24/18 16:00 99.5 87 20 126/64 (84) 100 11/24/18 16:00 85 11/24/18 16:00 30 11/24/18 16:00 Mechanical Ventilator 11/24/18 14:30 84 20 30 Intake and Output 11/24/18 11/25/18 19:00 07:00 Intake Total 950 ml 2005.000 ml Output Total 1000 ml 750 ml Balance -50 ml 1255.000 ml Intake Free Water 300 ml 200 ml IV Total 1025.000 ml Tube Feeding 650 ml 780 ml Output Urine Total 1000 ml 750 ml # Bowel Movements 4 2 Laboratory Tests 11/25/18 03:00: White Blood Count 11.6H, Red Blood Count 3.13L, Hemoglobin 8.0L, Hematocrit 24.0L, Mean Corpuscular Volume 77L, Mean Corpuscular Hemoglobin 25.5L, Mean Corpuscular Hemoglobin Concent 33.3, Red Cell Distribution Width 21.5H, Platelet Count 344, Mean Platelet Volume 5.4L, Neutrophils (%) (Auto) , Lymphocytes (%) (Auto) , Monocytes (%) (Auto) , Eosinophils (%) (Auto) , Basophils (%) (Auto) , Differential Total Cells Counted 100, Neutrophils % ( Manual) 88H, Lymphocytes % (Manual) 8L, Monocytes % (Manual) 1, Eosinophils % ( Manual) 3, Basophils % (Manual) 0, Band Neutrophils 0, Platelet Estimate Adequate, Platelet Morphology Normal, Hypochromasia 2+, Anisocytosis 3+, Microcytosis 1+, Spherocytes 1+, Sodium Level 132L, Potassium Level 3.7, Chloride Level 95L, Carbon Dioxide Level 30, Anion Gap 7, Blood Urea Nitrogen 14 , Creatinine 0.3L, Estimat Glomerular Filtration Rate , Glucose Level 111H, Calcium Level 7.9L, Total Bilirubin 0.3, Aspartate Amino Transf (AST/SGOT) 127H , Alanine Aminotransferase (ALT/SGPT) 87H, Alkaline Phosphatase 369H, Total Protein 5.4L, Albumin 1.1L, Globulin 4.3, Albumin/Globulin Ratio 0.3L Height (Feet): 5 Height (Inches): 8.00 Weight (Pounds): 210 Objective General Appearance: no apparent distress, other - unresponsive on vent EENT: PERRL/EOMI, other - enlarged tongue protruding, lower lip severely swollen Neck: supple Cardiovascular: normal rate, regular rhythm Respiratory/Chest: lungs clear Abdomen: soft Neurologic: unresponsive Skin: Morbilliform rash to bilateral upper extremities and thighs Neftaly Walters M.D. Nov 25, 2018 13:59
--- NOTE | 2018-11-25 14:15 | NUR ---
NURSE NOTES: Pt was cleaned, gown/linens changed. Wound care done and dressing changed. VS stable. Pt remains obtunded, however no s/s of pain or any other discomfort noted/present at this time. Pt has been repositioned with bilateral extremities elevated on pillows.
--- NOTE | 2018-11-25 15:02 | Pulmonology Progress Note ---
Assessment/Plan Assessment/Plan Pulmonary Progress Note date and time: 11/24/18 1611 Assessment/Plan Problems: (1) Ventilator dependence (2) Tracheostomy dependence (3) UTI (urinary tract infection) (4) Fever (5) Anoxic brain damage (6) Tongue abnormality (7) Seizure disorder (8) Colon adenocarcinoma (9) HTN (hypertension) (10) Sepsis (11) Diabetes (12) Abnormal LFTs (13) Protein calorie malnutrition (14) Gastrostomy in place (15) [facility] resident (16) Decubitus skin ulcer Assessment/Plan Continue ventilatory support/settings reviewed Titrate down FiO2 to keep SaO2 > 90% Optimize pulmonary hygiene/mobilize as tolerated RTC and PRN HHN's Abx per ID, F/U Cx's F/U CT AP F/U cards recs Monitor volumes and renal function DVT Px: LMWH Needs to be seen by OMFS or DDS, needs a tooth extraction ---> if unable consider ENT evaluation FC, continue to discuss GOC Wound care Subjective Allergies: Coded Allergies: Crayfish (Unverified Allergy, Unknown, 11/11/18) Uncoded Allergies: Crawfish (Allergy, Unknown, 11/09/18) Subjective Tm 102.9 VSS stable on vent no sig secretions no distress Objective Vital Signs Noted General Appearance: no acute distress, cachetic, other - non verbal HEENT: normocephalic, atraumatic, anicteric, mucous membranes moist, status post trach, other - macroglassia and tongue edema Respiratory/Chest: chest wall non-tender, lungs clear, normal breath sounds, no respiratory distress, no accessory muscle use Cardiovascular: normal peripheral pulses, normal rate, regular rhythm Abdomen: normal bowel sounds, soft, non tender, no organomegaly, non distended , no mass, other - GT Extremities: no cyanosis, no clubbing, no edema Laboratory Tests 11/22/18 08:30: White Blood Count 8.0, Red Blood Count 3.12L, Hemoglobin 8.0L, Hematocrit 24.3L , Mean Corpuscular Volume 78L, Mean Corpuscular Hemoglobin 25.6L, Mean Corpuscular Hemoglobin Concent 32.9, Red Cell Distribution Width 22.0H, Platelet Count 404, Mean Platelet Volume 5.2L, Neutrophils (%) (Auto) 78.3H, Lymphocytes (%) (Auto) 13.3L, Monocytes (%) (Auto) 6.2, Eosinophils (%) (Auto) 1.4, Basophils (%) (Auto) 0.8, Sodium Level 137, Potassium Level 3.2L, Chloride Level 100, Carbon Dioxide Level 30, Anion Gap 7, Blood Urea Nitrogen 16, Creatinine 0.3L, Estimat Glomerular Filtration Rate , Glucose Level 123H, Calcium Level 7.7L, Total Bilirubin 0.2, Aspartate Amino Transf (AST/SGOT) 153H , Alanine Aminotransferase (ALT/SGPT) 115H, Alkaline Phosphatase 250H, Total Protein 5.2L, Albumin 1.0L, Globulin 4.2, Albumin/Globulin Ratio 0.2L, Vancomycin Level Trough 10.1 Current Medications Medications (Trade) Dose Ordered Sig/Lupe Route PRN Reason Start Time Stop Time Status Last Admin Dose Admin Acetaminophen (Tylenol) 650 mg Q4H PRN GT Mild Pain/Temp > 100.5 11/09/18 05:00 12/09/18 04:59 11/22/18 00:45 Albuterol/ Ipratropium (Albuterol/ Ipratropium) 3 ml Q4H PRN HHN Shortness of Breath 11/17/18 12:30 11/22/18 12:29 Amlodipine Besylate (Norvasc) 10 mg DAILY GT 11/09/18 09:00 12/09/18 08:59 11/22/18 08:18 Bisacodyl (Dulcolax) 10 mg DAILY PRN RECTAL Constipation 11/09/18 05:00 12/09/18 04:59 Calcium Carbonate (Tums) 500 mg EVERY 8 HOURS GT 11/09/18 14:00 12/09/18 08:59 11/22/18 05:40 Chlorhexidine Gluconate (Corazon-Hex 2%) 1 applic DAILY@1999 TOPIC 11/12/18 20:00 12/12/18 19:59 11/21/18 22:38 Dextrose (Dextrose 50%) 25 ml Q30M PRN IV Hypoglycemia 11/09/18 04:45 12/09/18 04:44 Dextrose (Dextrose 50%) 50 ml Q30M PRN IV Hypoglycemia 11/09/18 04:45 12/09/18 04:44 11/09/18 09:09 Enoxaparin Sodium (Lovenox) 40 mg DAILY SUBQ 11/09/18 09:00 12/09/18 08:59 11/22/18 08:20 Famotidine (Pepcid) 20 mg EVERY 12 HOURS GT 11/09/18 21:00 12/09/18 08:59 11/22/18 08:18 Furosemide (Lasix) 40 mg EVERY 12 HOURS GT 11/09/18 09:00 12/09/18 08:59 11/22/18 08:18 Hydralazine HCl (Apresoline) 5 mg EVERY 8 HOURS GT 11/09/18 06:00 12/09/18 05:59 11/22/18 05:39 Insulin Aspart (NovoLOG) Q6HR SUBQ 11/09/18 06:00 12/09/18 05:59 11/22/18 00:20 Insulin Detemir (Levemir) 4 units EVERY 12 HOURS SUBQ 11/16/18 21:00 12/09/18 08:59 11/21/18 21:46 Labetalol HCl (Normodyne) 200 mg Q8HR GT 11/09/18 06:00 12/09/18 05:59 11/22/18 05:40 Levetiracetam (Keppra) 1,500 mg Q12HR GT 11/09/18 09:00 12/09/18 08:59 11/22/18 08:19 Magnesium Hydroxide (Mom) 30 ml DAILY PRN GT Constipation 11/09/18 05:00 12/09/18 04:59 Magnesium Oxide (Mag-Ox 400mg) 400 mg EVERY 8 HOURS GT 11/09/18 14:00 12/09/18 08:59 11/22/18 05:40 Metronidazole 100 ml @ 100 mls/hr Q8HR IVPB 11/21/18 22:00 11/28/18 21:59 11/22/18 05:41 Ondansetron HCl (Zofran) 4 mg Q6H PRN GT Nausea & Vomiting 11/09/18 05:00 12/09/18 04:59 Phenobarbital (PHENobarbital) 60 mg BID GT 11/09/18 09:00 12/09/18 08:59 11/22/18 08:18 Phenytoin (Dilantin) 100 mg Q8HR GT 11/09/18 06:00 12/09/18 05:59 11/22/18 05:40 Polyethylene Glycol (Miralax) 17 gm DAILYPRN PRN GT Constipation 11/14/18 10:30 12/12/18 10:29 Polymyxin B Sulfate 276437 units/Dextrose 550 ml @ 550 mls/hr EVERY 12 HOURS IV 11/21/18 21:00 11/28/18 20:59 11/22/18 08:46 Sennosides (Senokot) 8.6 mg EVERY 12 HOURS GT 11/09/18 21:00 12/09/18 08:59 11/22/18 08:18 Valproic Acid (Depakene) 500 mg EVERY 8 HOURS GT 11/09/18 06:00 12/09/18 05:59 11/22/18 05:36 Subjective ROS Limited/Unobtainable: No Allergies: Coded Allergies: Crayfish (Unverified Allergy, Unknown, 11/11/18) Uncoded Allergies: Crawfish (Allergy, Unknown, 11/09/18) Objective Last 24 Hour Vital Signs Date Time Temp Pulse Resp B/P (MAP) Pulse Ox O2 Delivery O2 Flow Rate FiO2 11/25/18 13:54 98 111/62 11/25/18 13:53 111/62 11/25/18 13:06 98 21 30 11/25/18 10:52 99 21 30 11/25/18 09:10 100 25 30 11/25/18 09:06 93 116/59 11/25/18 08:00 93 11/25/18 08:00 30 11/25/18 08:00 99.8 93 20 116/59 (78) 100 11/25/18 08:00 Mechanical Ventilator 11/25/18 07:13 96 25 30 11/25/18 05:24 158/83 11/25/18 05:23 86 158/83 11/25/18 05:07 108 27 30 11/25/18 04:00 Mechanical Ventilator 11/25/18 04:00 100.0 105 18 150/85 (106) 99 11/25/18 04:00 30 11/25/18 03:33 103 11/25/18 03:05 87 20 30 11/25/18 01:30 90 27 30 11/25/18 00:00 84 11/25/18 00:00 Mechanical Ventilator 11/25/18 00:00 99.4 87 18 98/56 (70) 99 11/24/18 23:09 87 20 30 11/24/18 22:20 100.1 11/24/18 21:05 117 182/86 11/24/18 21:05 182/86 11/24/18 21:01 86 24 30 11/24/18 20:18 121 24 30 11/24/18 20:08 114 11/24/18 20:00 30 11/24/18 20:00 102.1 117 18 182/82 (115) 100 11/24/18 20:00 Mechanical Ventilator 11/24/18 17:18 98.4 11/24/18 17:00 92 25 30 11/24/18 16:00 99.5 87 20 126/64 (84) 100 11/24/18 16:00 85 11/24/18 16:00 30 11/24/18 16:00 Mechanical Ventilator Intake and Output 11/24/18 11/25/18 18:59 06:59 Intake Total 950 ml 2005.000 ml Output Total 1000 ml 750 ml Balance -50 ml 1255.000 ml Intake Free Water 300 ml 200 ml IV Total 1025.000 ml Tube Feeding 650 ml 780 ml Output Urine Total 1000 ml 750 ml # Bowel Movements 4 2 Microbiology Date/Time Source Procedure Growth Status 11/24/18 14:30 Sputum Induced Gram Stain - Final Resulted 11/24/18 14:30 Sputum Induced Sputum Culture Pending Resulted 11/24/18 13:45 Indwelling Cath Urine Culture - Preliminary NO GROWTH Resulted Laboratory Tests 11/25/18 03:00: White Blood Count 11.6H, Red Blood Count 3.13L, Hemoglobin 8.0L, Hematocrit 24.0L, Mean Corpuscular Volume 77L, Mean Corpuscular Hemoglobin 25.5L, Mean Corpuscular Hemoglobin Concent 33.3, Red Cell Distribution Width 21.5H, Platelet Count 344, Mean Platelet Volume 5.4L, Neutrophils (%) (Auto) , Lymphocytes (%) (Auto) , Monocytes (%) (Auto) , Eosinophils (%) (Auto) , Basophils (%) (Auto) , Differential Total Cells Counted 100, Neutrophils % ( Manual) 88H, Lymphocytes % (Manual) 8L, Monocytes % (Manual) 1, Eosinophils % ( Manual) 3, Basophils % (Manual) 0, Band Neutrophils 0, Platelet Estimate Adequate, Platelet Morphology Normal, Hypochromasia 2+, Anisocytosis 3+, Microcytosis 1+, Spherocytes 1+, Sodium Level 132L, Potassium Level 3.7, Chloride Level 95L, Carbon Dioxide Level 30, Anion Gap 7, Blood Urea Nitrogen 14 , Creatinine 0.3L, Estimat Glomerular Filtration Rate , Glucose Level 111H, Calcium Level 7.9L, Total Bilirubin 0.3, Aspartate Amino Transf (AST/SGOT) 127H , Alanine Aminotransferase (ALT/SGPT) 87H, Alkaline Phosphatase 369H, Total Protein 5.4L, Albumin 1.1L, Globulin 4.3, Albumin/Globulin Ratio 0.3L Current Medications Medications (Trade) Dose Ordered Sig/Lupe Route PRN Reason Start Time Stop Time Status Last Admin Dose Admin Acetaminophen (Tylenol) 650 mg Q4H PRN GT Mild Pain/Temp > 100.5 11/09/18 05:00 12/09/18 04:59 11/24/18 21:50 Amlodipine Besylate (Norvasc) 10 mg DAILY GT 11/09/18 09:00 12/09/18 08:59 11/25/18 09:06 Bisacodyl (Dulcolax) 10 mg DAILY PRN RECTAL Constipation 11/09/18 05:00 12/09/18 04:59 Calcium Carbonate (Tums) 500 mg EVERY 8 HOURS GT 11/09/18 14:00 12/09/18 08:59 11/25/18 13:52 Chlorhexidine Gluconate (Corazon-Hex 2%) 1 applic DAILY@2000 TOPIC 11/12/18 20:00 12/12/18 19:59 11/24/18 21:04 Dextrose (Dextrose 50%) 25 ml Q30M PRN IV Hypoglycemia 11/09/18 04:45 12/09/18 04:44 Dextrose (Dextrose 50%) 50 ml Q30M PRN IV Hypoglycemia 11/09/18 04:45 12/09/18 04:44 11/09/18 09:09 Enoxaparin Sodium (Lovenox) 40 mg DAILY SUBQ 11/09/18 09:00 12/09/18 08:59 11/25/18 09:14 Famotidine (Pepcid) 20 mg EVERY 12 HOURS GT 11/09/18 21:00 9/21/19 08:59 11/25/18 09:05 Ferrous Sulfate (Feosol) 300 mg THREE TIMES A DAY GT 11/23/18 13:00 12/23/18 12:59 11/25/18 13:52 Furosemide (Lasix) 40 mg EVERY 12 HOURS GT 11/09/18 09:00 12/09/18 08:59 11/25/18 09:05 Hydralazine HCl (Apresoline) 5 mg EVERY 8 HOURS GT 11/09/18 06:00 12/09/18 05:59 11/25/18 13:53 Insulin Aspart (NovoLOG) Q6HR SUBQ 11/09/18 06:00 12/09/18 05:59 11/25/18 11:34 Insulin Detemir (Levemir) 4 units EVERY 12 HOURS SUBQ 11/16/18 21:00 12/09/18 08:59 11/25/18 09:13 Labetalol HCl (Normodyne) 200 mg Q8HR GT 11/09/18 06:00 12/09/18 05:59 11/25/18 13:54 Levetiracetam (Keppra) 1,500 mg Q12HR GT 11/09/18 09:00 12/09/18 08:59 11/25/18 09:04 Magnesium Hydroxide (Mom) 30 ml DAILY PRN GT Constipation 11/09/18 05:00 12/09/18 04:59 Magnesium Oxide (Mag-Ox 400mg) 400 mg EVERY 8 HOURS GT 11/09/18 14:00 12/09/18 08:59 11/25/18 13:52 Metronidazole 100 ml @ 100 mls/hr Q8HR IVPB 11/21/18 22:00 11/28/18 21:59 11/25/18 13:53 Micafungin Sodium 100 mg/Sodium Chloride 100 ml @ 100 mls/hr Q24H IVPB 11/24/18 14:00 12/01/18 13:59 11/25/18 13:53 Ondansetron HCl (Zofran) 4 mg Q6H PRN GT Nausea & Vomiting 11/09/18 05:00 12/09/18 04:59 Phenobarbital (PHENobarbital) 60 mg BID GT 11/09/18 09:00 12/09/18 08:59 11/25/18 09:05 Phenytoin (Dilantin) 100 mg Q8HR GT 11/09/18 06:00 12/09/18 05:59 11/25/18 13:52 Polyethylene Glycol (Miralax) 17 gm DAILYPRN PRN GT Constipation 11/14/18 10:30 12/12/18 10:29 Polymyxin B Sulfate 616599 units/Dextrose 550 ml @ 550 mls/hr EVERY 12 HOURS IV 11/21/18 21:00 11/28/18 20:59 11/25/18 09:07 Sennosides (Senokot) 8.6 mg EVERY 12 HOURS GT 11/09/18 21:00 12/09/18 08:59 11/25/18 09:14 Valproic Acid (Depakene) 500 mg EVERY 8 HOURS GT 11/09/18 06:00 12/09/18 05:59 11/25/18 13:52 Vancomycin HCl (Vanco rx to dose) 1 ea DAILY PRN MISC Per rx protocol 11/24/18 13:00 12/24/18 12:59 Vancomycin HCl 750 mg/Sodium Chloride 275 ml @ 183.333 mls/hr Q12HR@0400,1600 IVPB 11/24/18 16:00 11/29/18 15:59 11/25/18 04:35 Eloy Vega MD Nov 25, 2018 15:02
[2018-11-25] MEDS ORDERED: NS 275ml ONE (15:14)
[2018-11-25] MEDS ORDERED: Tubing IV Secondary IV ONE (15:14)
[2018-11-25 16:00] VITALS: BP 105/73
--- NOTE | 2018-11-25 16:30 | NUR ---
NURSE NOTES: Pt was cleaned and repositioned. Oral care done. VS stable. Temp 99.1F axillary. BG was 98.
[2018-11-25] MEDS: Vancomycin 1gm/D5W 275ml IVPB SCH ×2 (17:07)
--- NOTE | 2018-11-25 18:53 | NUR ---
RESPIRATORY NOTE: Received pt on AC 14, 375VT, 30%, PEEP +5. Pt is trach-dependent w/ a cuffed, Shiely 8 tube. Pt flat effect. B/S didi rhonchi, sxn small to moderate amounts of thick, mccauley-yellow green secretions. Vent plugged into red outlet, ambubag at bedside. Pt in no apparent distress at this time. Will continue plan of care.
--- NOTE | 2018-11-25 19:27 | NUR ---
HAND-OFF: Report given to Dominic RN. VS stable. Endorsed plan of care.
--- NOTE | 2018-11-25 19:30 | NUR ---
NURSE NOTES: Received patient from Jeanna DESHPANDE. Patient is obtunded and receiving oxygen via trach to vent, settings: Shiley 8, AC 14, TV 375, FiO2 30%, and PEEP 5. G-tube is patent and receiving Glucerna 1.2 @ 65cc/hr, patient tolerating well, no residuals. IV site is Right Upper Arm PICC, patent and asymptomatic. Bed is locked, placed in lowest position, side rails up x3, bed alarm on, call light within reach. Will continue to monitor.
[2018-11-25 20:00] VITALS: BP 149/68
--- NOTE | 2018-11-25 20:00 | NUR ---
NURSE NOTES: Patient's temperature at 1999 was 100.1 degrees Fahrenheit. Placed ice packs on patient and placed cooling fan in room. Will continue to monitor.
--- NOTE | 2018-11-25 20:30 | NUR ---
NURSE NOTES: Upon reassessment of patient's temperature was 98.1 degrees Fahrenheit. Will continue to monitor.
[2018-11-25] MEDS: Dyna-Hex 2% Top Sol 2oz TOPIC SCH (20:39)
[2018-11-26] VITALS: BP 124/64
[2018-11-26] MEDS: Vancomycin 1gm/D5W 275ml IVPB SCH ×4 (03:57→15:24)
[2018-11-26 04:00] VITALS: BP 127/72
[2018-11-26 04:23] LABS: HEMATOCRIT 22.7 % (37.0-47.0); HEMOGLOBIN 7.6 G/DL (12.0-16.0); MEAN CORPUSCULAR VOLUME 76 FL (80-99); PLATELET COUNT 310 K/UL (150-450); RED BLOOD COUNT 2.98 M/UL (4.20-5.40); RED CELL DISTRIBUTION WIDTH 21.4 % (11.6-14.8); WHITE BLOOD COUNT 9.1 K/UL (4.8-10.8)
[2018-11-26 04:43] LABS: ANION GAP 4 mmol/L (5-15); BLOOD UREA NITROGEN 13 mg/dL (7-18); CALCIUM 7.7 MG/DL (8.5-10.1); CARBON DIOXIDE 30 MMOL/L (21-32); CHLORIDE 93 MMOL/L (98-107); CREATININE 0.4 MG/DL (0.55-1.30); POTASSIUM 3.6 MMOL/L (3.5-5.1); SODIUM 127 MMOL/L (136-145)
[2018-11-26] MEDS: NovoLOG Insulin Flexpen SUBQ SCH ×3 (06:05→17:54)
[2018-11-26] MEDS: Magnesium Oxide 400mg tab GT SCH ×3 (06:10→21:22)
[2018-11-26] MEDS: Tums 500mg GT SCH ×3 (06:11→21:22)
[2018-11-26] MEDS: HydrALAZINE 10mg Tab GT SCH ×3 (06:11→21:22)
[2018-11-26] MEDS: Labetalol 200mg tab GT SCH ×3 (06:11→21:22)
[2018-11-26] MEDS: Phenytoin Susp 100mg/4ml GT SCH ×3 (06:14→21:21)
[2018-11-26] MEDS: Valproic Acid 250mg/5ml Liquid GT SCH ×3 (06:15→21:22)
--- NOTE | 2018-11-26 06:32 | NUR ---
RESPIRATORY NOTE: Received pt on trach Shiley, cuffed size 8.0, secured by trach tie and trach guard, with current vent settings: AC 14-375ml-30%FiO2- peep 5. Pt is trach dependent, unable to follow commands, resting in bed comfortably, no SOB or resp distress noted. Juan rhonchi breath sounds heard upon auscultation, suctioned moderate amounts of thick yet-gdkbys-uvypa secretions without incidents. Alarms are set and audible, vent is plugged into the red outlet, ambu bag and trach kit are at bedside. Will continue to monitor and sxn q2h ans as needed.
--- NOTE | 2018-11-26 07:27 | NUR ---
HAND-OFF: Report given to Diana DESHPANDE.
--- NOTE | 2018-11-26 07:28 | NUR ---
NURSE NOTES: RECEIVED PATIENT FROM Anais PRITCHETT RN. PATIENT IS LYING IN BED, ASLEEP. PATIENT IS OBTUNDED. HOOKED TO TUBE AND ROD STRAIGHTENER. TRACH TO VENT. SHILEY 8 WITH VENT SETTINGS AC 14, TV 345, FiO2 30%, PEEP 5. NO SIGNS OF DISTRESS OF THE MOMENT. GT IN PLACE WITH GTF GLUCERNA 1.2 AT 65ML/HR. NOTED GENERALIZED EDEMA AND TONGUE EDEMA. SKIN ALTERATION NOTED. YI NOTED CONNECTED TO BAG, PATENT AND DRAINING URINE. WITH R UA PICC, DRESSING DRYA ND INTACT. CALL LIGHT WITHIN REACH. BED AT LOWEST POSITION. SIDE RAILS UP. WILL CONTINUE TO MONITOR.
[2018-11-26 08:00] VITALS: BP 116/64
--- NOTE | 2018-11-26 08:24 | Diagnostic Imaging Report ---
EXAM: XR Chest, 1 View CLINICAL HISTORY: INFECT TECHNIQUE: Frontal view of the chest. COMPARISON: Chest x-ray, 11/23/18 FINDINGS: Lungs: Rotated film. Increased hazy opacity at the left lung and left retrocardiac opacity. Elevated right hemidiaphragm with probable pleural effusion and consolidation. Pleural space: Decreased left pleural effusion. No pneumothorax. Heart: Cardiomegaly. Mediastinum: Unremarkable. Bones/joints: Unremarkable. Tubes, lines and devices: Stable tracheostomy tube and right PICC line. IMPRESSION: 1. Rotated film. Increased hazy opacity at the left lung and left retrocardiac opacity. 2. Decreased left pleural effusion. 3. Elevated right hemidiaphragm with probable pleural effusion and consolidation, similar.
[2018-11-26] MEDS: PHENobarbital Elixir 30mg/7.5ml GT SCH ×2 (08:48→17:49)
[2018-11-26] MEDS: Ferrous Sulfate 300 MG/5 ML UDC GT SCH ×3 (08:48→17:49)
[2018-11-26] MEDS: Furosemide 40mg tab GT SCH ×2 (08:49→20:58)
[2018-11-26] MEDS: levETIRAcetam 500mg/5ml Liquid GT SCH ×2 (08:49→20:58)
[2018-11-26] MEDS: Sennosides 8.6mg tab GT SCH ×2 (08:50→20:58)
[2018-11-26] MEDS: Levemir Flexpen SUBQ SCH ×2 (08:54→21:00)
[2018-11-26] MEDS: Enoxaparin 40mg Inj SUBQ SCH (08:55)
--- NOTE | 2018-11-26 09:40 | Surgery Progress Note ---
Surgery Progress Note Subjective Additional Comments no acute events labs stable comfortable exam unchanged Objective Last 24 Hour Vital Signs Date Time Temp Pulse Resp B/P (MAP) Pulse Ox O2 Delivery O2 Flow Rate FiO2 11/26/18 08:49 86 116/64 11/26/18 08:37 86 20 30 11/26/18 08:00 Mechanical Ventilator 11/26/18 08:00 99.5 85 20 116/64 (81) 95 11/26/18 08:00 85 11/26/18 08:00 30 11/26/18 06:32 88 25 30 11/26/18 06:11 96 146/63 11/26/18 06:11 146/63 11/26/18 04:49 95 26 30 11/26/18 04:00 Mechanical Ventilator 11/26/18 04:00 93 11/26/18 04:00 30 11/26/18 04:00 98.1 94 24 127/72 (90) 100 11/26/18 02:50 93 21 30 11/26/18 00:57 90 22 30 11/26/18 00:00 Mechanical Ventilator 11/26/18 00:00 99.1 90 21 124/64 (84) 100 11/25/18 23:38 90 11/25/18 22:51 93 24 30 11/25/18 22:05 99 162/71 11/25/18 22:05 162/71 11/25/18 20:49 96 24 30 11/25/18 20:00 Mechanical Ventilator 11/25/18 20:00 100.1 97 22 149/68 (95) 100 11/25/18 20:00 30 11/25/18 19:43 96 11/25/18 18:50 93 27 30 11/25/18 17:07 93 24 100 Mechanical Ventilator 30 11/25/18 17:05 93 24 30 11/25/18 16:00 91 11/25/18 16:00 30 11/25/18 16:00 Mechanical Ventilator 11/25/18 16:00 99.1 92 18 105/73 (84) 100 11/25/18 15:02 99 20 30 11/25/18 13:54 98 111/62 11/25/18 13:53 111/62 11/25/18 13:06 98 21 30 11/25/18 12:00 30 11/25/18 12:00 97 11/25/18 12:00 Mechanical Ventilator 11/25/18 12:00 99.0 98 18 111/62 (78) 100 11/25/18 10:52 99 21 30 I&O Intake and Output 11/25/18 11/26/18 19:00 07:00 Intake Total 1163.708 ml 1630 ml Output Total 850 ml 1350 ml Balance 313.708 ml 280 ml Intake Free Water 100 ml 200 ml IV Total 933.708 ml 650 ml Tube Feeding 130 ml 780 ml Output Urine Total 850 ml 1350 ml # Bowel Movements 4 Dressing: saturated Wound: other Drains: other Cardiovascular: RSR Respiratory: decreased breath sounds Abdomen: soft, present bowel sounds, other, non-distended Extremities: no cyanosis, other Laboratory Tests Test 11/25/18 15:00 11/26/18 03:10 Vancomycin Level Trough 10.1 ug/mL (5.0-12.0) White Blood Count 9.1 K/UL (4.8-10.8) Red Blood Count 2.98 M/UL (4.20-5.40) L Hemoglobin 7.6 G/DL (12.0-16.0) L Hematocrit 22.7 % (37.0-47.0) L Mean Corpuscular Volume 76 FL (80-99) L Mean Corpuscular Hemoglobin 25.6 PG (27.0-31.0) L Mean Corpuscular Hemoglobin Concent 33.6 G/DL (32.0-36.0) Red Cell Distribution Width 21.4 % (11.6-14.8) H Platelet Count 310 K/UL (150-450) Mean Platelet Volume 5.3 FL (6.5-10.1) L Neutrophils (%) (Auto) % (45.0-75.0) Lymphocytes (%) (Auto) % (20.0-45.0) Monocytes (%) (Auto) % (1.0-10.0) Eosinophils (%) (Auto) % (0.0-3.0) Basophils (%) (Auto) % (0.0-2.0) Sodium Level 127 MMOL/L (136-145) L Potassium Level 3.6 MMOL/L (3.5-5.1) Chloride Level 93 MMOL/L (98-107) L Carbon Dioxide Level 30 MMOL/L (21-32) Anion Gap 4 mmol/L (5-15) L Blood Urea Nitrogen 13 mg/dL (7-18) Creatinine 0.4 MG/DL (0.55-1.30) L Estimat Glomerular Filtration Rate mL/min (>60) Glucose Level 118 MG/DL (74-106) H Calcium Level 7.7 MG/DL (8.5-10.1) L Plan Problems: (1) Fever (2) Tongue abnormality Assessment & Plan: patients jaw clenched closed and tongue has been stuck for some time. tongue split from middle teeth and now in two. edema and unable to reduce keep tongue moist. apply lube jelly prn dryness. will monitor do not recommend surgical intervention for this current medical condition spoke with family. ENT plan to see. OMFS no intervention (3) Tracheostomy dependence (4) Sepsis Assessment & Plan: gb no stones 6mm polyp no acute surgical intervention planned trend labs improving labs improved DAILY ESTIMATED NEEDS: Needs based on Critical care, sepsis, wound 60kg adj 22-30 kcals/kg [id number] total kcals 1.25-2 g protein/kg 75-120 g total protein Fluid per MD, on lasix NUTRITION DIAGNOSIS: * Swallowing difficulty r/t respiratory status as evidenced by pt is vent dep via trach and PEG dep. * Increased kcal and pro needs r/t wound healing and sepsis as evidenced by pt w/ sacral and R heel wounds, febrile (Tmax 101.5). CURRENT TF: Jevity 1.2 @50 ml/hr x16 hrs ENTERAL NUTRITION RECOMMENDATIONS: Glucerna 1.2 @65ml/hr x18 hrs + Prosource x1 daily to provide 1170ml, 1404 kcal, 70g pro + 11g pro, 942 free H2O - REC TF CHANGE AND INCREASE TO BETTER MEET EST NEEDS - TF TO BE HELD FOR ONE HR BEFORE AND AFTER DILANTIN MEDS - START @20ML/HR, ADVANCE TOLERATED 15ML/HR Q4-6 HRS TO GOAL - FLUSH PER MD, HOB OVRE 30 DEGREES ADDITIONAL RECOMMENDATIONS: 1) CALIBRATED BED SCALE W/ ADDED P200 MATTRESS + PUMP 2) ON LASIX, MONITOR LYTES AND HYDRATION STATUS DAILY 3) TF TO RUN A MAX OF 18 HRS/DAY W/ DILANTIN TID PER PHARMACY 4) REC TF CHANGE TO CARB CONTROL FORMULA 5) WOUND CARE: ADD CHAYITO BID + VIT C 250MG DAILY (5) Fever Assessment & Plan: CT A/P with findings Impression: No definite acute process Diverticulosis. No evidence of diverticulitis Extensive edema of the subcutaneous fat. 2 cm focal fluid collection/edema seen within the incision Moderate amount retained dense stool. Correlate with any clinical history of constipation Hiatal hernia. Gastrostomy Left renal parapelvic cysts Apparent prior hysterectomy (6) Decubitus skin ulcer Assessment & Plan: Pt presented on admission with full thickness sacral pressure injury.Base of wound is 20% necrotic , 80% slough. borders are macerated . Mild odor noted. (L)8.4cm x (W) 6.5cm. Periwound skin tone is darker without erythema,induration or elevation in skin temp. Both heels are non -blanchable and both are fluctuant when palpated. Tx.Plan: Clean wound with saline. Apply Therahoney. Aply Moisture Barrier paste periwound. Cover with Optifoam drsg. Change every 3 days and prn. Apply Cavilon Skin BArrier to both heels. Cover each heel with Optifoam drsg. Change every 7 days and prn. APM/DEIRDRE mattress overlay. Reposition at least every 2hours or as tolerated. Off-load heels with pillow. will follow with recs thank you Preet Hylton Nov 26, 2018 09:40
[2018-11-26] MEDS: Polymyxin B Sulfate 500,000 UNITS in D5W 500ml 550 ML IV SCH ×2 (09:47→20:58)
--- NOTE | 2018-11-26 10:51 | NUR ---
NURSE NOTES: INFORMED DR LEBRON RE H/H AND Na LEVEL. NO NEW ORDER. WILL CONTINUE TO MONITOR.
--- NOTE | 2018-11-26 11:03 | General Progress Note ---
Assessment/Plan Problem List: (1) MRSA (methicillin resistant staphylococcus aureus) pneumonia ICD Codes: J15.212 - Pneumonia due to Methicillin resistant Staphylococcus aureus SNOMED: 707989132581819 (2) Fever ICD Codes: R50.9 - Fever, unspecified SNOMED: 645359608 (3) UTI (urinary tract infection) ICD Codes: N39.0 - Urinary tract infection, site not specified SNOMED: 53050174 (4) Tracheostomy dependence ICD Codes: Z93.0 - Tracheostomy status SNOMED: 681893060 (5) Ventilator dependence ICD Codes: Z99.11 - Dependence on respirator [ventilator] status SNOMED: 677220864 (6) Protein calorie malnutrition ICD Codes: E46 - Unspecified protein-calorie malnutrition SNOMED: 996248892 (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 SNOMED: 74935010 (8) Drug rash ICD Codes: L27.0 - Generalized skin eruption due to drugs and medicaments taken internally SNOMED: 87022669 (9) Gram-negative pneumonia ICD Codes: J15.6 - Pneumonia due to other Gram-negative bacteria SNOMED: 579886656 (10) Line sepsis ICD Codes: T85.79XA - Infection and inflammatory reaction due to other internal prosthetic devices, implants and grafts, initial encounter; A41.9 - Sepsis, unspecified organism SNOMED: 36675644, 476722711 (11) Bacteremia ICD Codes: R78.81 - Bacteremia SNOMED: 6344295 Status: stable Assessment/Plan: 78-year-old female who is trach dependent who was brought in by shelter for sepsis and found to have UTI and bacteremia. 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 fungal uti vs colonization ID consult appreciate Rec Vancomycin and Meropenem started 11/16 ( Zosyn stopped) , fungal coverage with Diflucan added 11/18. Repeat sputum cultures with RAULTELLA PLANTICOA and PROVIDENCIA STUARTI resistant to most antibiotics Developed morbilliform rash on meropenem, this was stopped and rash is better, has persistent fevers. Started Polymyxin and flagyl 11/21. Added vancomycin and micafungin on 11/24. picc cultures, no growth so far. repeat sputum cultures are pending. Discussed with daughter at bedside. CT abdomen pelvis shows no acute process Removed PICC and place new line 11/13/18 Echo to eval for vegetation negative Chest x-ray reviewed, no change # Transaminitis - trend lft's - GI consult, appreciate recs - ab us: reviewed - f/u hep panel #Elevated troponin secondary to sepsis versus ACS Cardiology consult, appreciate recs Medications per cardiology #Microcytic anemia- mixed anemia of chronic inflammation and iron deficiency. Start ferrous sulfate TID #Hypertension- improved Continue current medications, hydralazine as needed hypertension #Vent dependent Pulmonary consult, appreciate recs Vent management per pulmonary #Hypokalemia Replace, continue to monitor # Chronic tongue wound Supportive care On examination the patient has a sharp lower incisor present that is likely the culprit for the tongue laceration when she was intubated in the prior hospitalization at [facility] OMFS consultation Dr. Benavides completed ( no note left ) and I spoke with him over the phone after the visit. He does not recommend any surgery. ONLY bite block MOLT if available to decompress the tongue and get the remainder teeth out of the tongue way. Keep moisture in the lips and tongue. ENT consult with Dr. Emerson Cheung # History of mood disorder Seen by psychiatry and on Depakote. Level was checked # Seizure history - Discussed with Dr. rEic who knew the patient from [facility] and confirmed that she did have seizure activity and was on multiple AED regimen. - Will continue Depakote ( 28 level ) and (Phenytoin 4.3 ) - no active seizure activity at this time. Keep current dose. - Both Dr. Eric and Mariana not available to come to [facility] for consult and not acute need at this time. #Diabetes Mellitus - glucose noted in the 90-110's - Decreased Levemir to 4 units q 12 hours # Disposition - SNF when cleared by ID. Still febrile. Full code timing of this note may not reflect time of encounter. I spent 40 minutes on this encounter. Great than 50 percent spent of care planning. Subjective Date patient seen: Nov 26, 2018 ROS Limited/Unobtainable: Yes Allergies: Coded Allergies: Crayfish (Unverified Allergy, Unknown, 11/11/18) Uncoded Allergies: Crawfish (Allergy, Unknown, 11/09/18) Subjective obtunded on vent, Fever curve better. Tmax 100.1 Ct abdomen pelvis done for persistent fevers no acute pathology On broad spectrum antibiotics. Added micafungin and vancomycin 11/25/18 per ID Unable to get ENT consult wbc trending down picc culture no growth repeat sputum cultures pending Objective Last 24 Hour Vital Signs Date Time Temp Pulse Resp B/P (MAP) Pulse Ox O2 Delivery O2 Flow Rate FiO2 11/26/18 10:46 85 23 30 11/26/18 08:49 86 116/64 11/26/18 08:37 86 20 30 11/26/18 08:00 Mechanical Ventilator 11/26/18 08:00 99.5 85 20 116/64 (81) 95 11/26/18 08:00 85 11/26/18 08:00 30 11/26/18 06:32 88 25 30 11/26/18 06:11 96 146/63 11/26/18 06:11 146/63 11/26/18 04:49 95 26 30 11/26/18 04:00 Mechanical Ventilator 11/26/18 04:00 93 11/26/18 04:00 30 11/26/18 04:00 98.1 94 24 127/72 (90) 100 11/26/18 02:50 93 21 30 11/26/18 00:57 90 22 30 11/26/18 00:00 Mechanical Ventilator 11/26/18 00:00 99.1 90 21 124/64 (84) 100 11/25/18 23:38 90 11/25/18 22:51 93 24 30 11/25/18 22:05 99 162/71 11/25/18 22:05 162/71 11/25/18 20:49 96 24 30 11/25/18 20:00 Mechanical Ventilator 11/25/18 20:00 100.1 97 22 149/68 (95) 100 11/25/18 20:00 30 11/25/18 19:43 96 11/25/18 18:50 93 27 30 11/25/18 17:07 93 24 100 Mechanical Ventilator 30 11/25/18 17:05 93 24 30 11/25/18 16:00 91 11/25/18 16:00 30 11/25/18 16:00 Mechanical Ventilator 11/25/18 16:00 99.1 92 18 105/73 (84) 100 11/25/18 15:02 99 20 30 11/25/18 13:54 98 111/62 11/25/18 13:53 111/62 11/25/18 13:06 98 21 30 11/25/18 12:00 30 11/25/18 12:00 97 11/25/18 12:00 Mechanical Ventilator 11/25/18 12:00 99.0 98 18 111/62 (78) 100 Intake and Output 11/25/18 11/26/18 19:00 07:00 Intake Total 1163.708 ml 1630 ml Output Total 850 ml 1350 ml Balance 313.708 ml 280 ml Intake Free Water 100 ml 200 ml IV Total 933.708 ml 650 ml Tube Feeding 130 ml 780 ml Output Urine Total 850 ml 1350 ml # Bowel Movements 4 Laboratory Tests 11/25/18 15:00: Vancomycin Level Trough 10.1 11/26/18 03:10: White Blood Count 9.1, Red Blood Count 2.98L, Hemoglobin 7.6L, Hematocrit 22.7L , Mean Corpuscular Volume 76L, Mean Corpuscular Hemoglobin 25.6L, Mean Corpuscular Hemoglobin Concent 33.6, Red Cell Distribution Width 21.4H, Platelet Count 310, Mean Platelet Volume 5.3L, Neutrophils (%) (Auto) , Lymphocytes (%) (Auto) , Monocytes (%) (Auto) , Eosinophils (%) (Auto) , Basophils (%) (Auto) , Sodium Level 127L, Potassium Level 3.6, Chloride Level 93L, Carbon Dioxide Level 30, Anion Gap 4L, Blood Urea Nitrogen 13, Creatinine 0.4L, Estimat Glomerular Filtration Rate , Glucose Level 118H, Calcium Level 7.7L Height (Feet): 5 Height (Inches): 8.00 Weight (Pounds): 210 Objective General Appearance: no apparent distress, other - unresponsive on vent EENT: PERRL/EOMI, other - enlarged tongue protruding, lower lip severely swollen Neck: supple Cardiovascular: normal rate, regular rhythm Respiratory/Chest: lungs clear Abdomen: soft Neurologic: unresponsive Skin: Morbilliform rash to bilateral upper extremities and thighs Neftaly Walters M.D. Nov 26, 2018 11:03
--- NOTE | 2018-11-26 11:07 | General Progress Note ---
Assessment/Plan Problem List: (1) MRSA (methicillin resistant staphylococcus aureus) pneumonia ICD Codes: J15.212 - Pneumonia due to Methicillin resistant Staphylococcus aureus SNOMED: 408151472361162 (2) Fever ICD Codes: R50.9 - Fever, unspecified SNOMED: 269579563 (3) UTI (urinary tract infection) ICD Codes: N39.0 - Urinary tract infection, site not specified SNOMED: 94301856 (4) Tracheostomy dependence ICD Codes: Z93.0 - Tracheostomy status SNOMED: 950871563 (5) Ventilator dependence ICD Codes: Z99.11 - Dependence on respirator [ventilator] status SNOMED: 081846945 (6) Protein calorie malnutrition ICD Codes: E46 - Unspecified protein-calorie malnutrition SNOMED: 079269351 (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 SNOMED: 52783985 (8) Drug rash ICD Codes: L27.0 - Generalized skin eruption due to drugs and medicaments taken internally SNOMED: 64541623 (9) Gram-negative pneumonia ICD Codes: J15.6 - Pneumonia due to other Gram-negative bacteria SNOMED: 280916507 (10) Line sepsis ICD Codes: T85.79XA - Infection and inflammatory reaction due to other internal prosthetic devices, implants and grafts, initial encounter; A41.9 - Sepsis, unspecified organism SNOMED: 78032292, 528713790 (11) Bacteremia ICD Codes: R78.81 - Bacteremia SNOMED: 3121808 Status: stable Assessment/Plan: 78-year-old female who is trach dependent who was brought in by snf for sepsis and found to have UTI and bacteremia. 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 fungal uti vs colonization ID consult appreciate Rec Vancomycin and Meropenem started 11/16 ( Zosyn stopped) , fungal coverage with Diflucan added 11/18. Repeat sputum cultures with RAULTELLA PLANTICOA and PROVIDENCIA STUARTI resistant to most antibiotics Developed morbilliform rash on meropenem, this was stopped and rash is better, has persistent fevers. Started Polymyxin and flagyl 11/21. Added vancomycin and micafungin on 11/24. picc cultures, no growth so far. repeat sputum cultures are pending. Discussed with daughter at bedside. CT abdomen pelvis shows no acute process Removed PICC and place new line 11/13/18 Echo to eval for vegetation negative Chest x-ray reviewed, no change # Transaminitis - trend lft's - GI consult, appreciate recs - ab us: reviewed - f/u hep panel #Elevated troponin secondary to sepsis versus ACS Cardiology consult, appreciate recs Medications per cardiology #Microcytic anemia- mixed anemia of chronic inflammation and iron deficiency. Start ferrous sulfate TID #Hypertension- improved Continue current medications, hydralazine as needed hypertension #Vent dependent Pulmonary consult, appreciate recs Vent management per pulmonary #Hypokalemia Replace, continue to monitor # Chronic tongue wound Supportive care On examination the patient has a sharp lower incisor present that is likely the culprit for the tongue laceration when she was intubated in the prior hospitalization at [facility] OMFS consultation Dr. Benavides completed ( no note left ) and I spoke with him over the phone after the visit. He does not recommend any surgery. ONLY bite block MOLT if available to decompress the tongue and get the remainder teeth out of the tongue way. Keep moisture in the lips and tongue. ENT consult with Dr. Emerson Cheung # History of mood disorder Seen by psychiatry and on Depakote. Level was checked # Seizure history - Discussed with Dr. Eric who knew the patient from [facility] and confirmed that she did have seizure activity and was on multiple AED regimen. - Will continue Depakote ( 28 level ) and (Phenytoin 4.3 ) - no active seizure activity at this time. Keep current dose. - Both Dr. Eric and Mariana not available to come to [facility] [place] for consult and not acute need at this time. #Diabetes Mellitus - glucose noted in the 90-110's - Decreased Levemir to 4 units q 12 hours # Disposition - SNF when cleared by ID. Still febrile. Full code timing of this note may not reflect time of encounter. I spent 40 minutes on this encounter. Great than 50 percent spent of care planning. Subjective Allergies: Coded Allergies: Crayfish (Unverified Allergy, Unknown, 11/11/18) Uncoded Allergies: Crawfish (Allergy, Unknown, 11/09/18) Subjective obtunded on vent, high grade fevers T102.6 Ct abdomen pelvis done for persistent fevers no acute pathology On broad spectrum antibiotics. Added micafungin and vancomycin 11/25/18 per ID Unable to get ENT consult wbc trending down picc culture no growth repeat sputum cultures pending Objective Last 24 Hour Vital Signs Date Time Temp Pulse Resp B/P (MAP) Pulse Ox O2 Delivery O2 Flow Rate FiO2 11/26/18 10:46 85 23 30 11/26/18 08:49 86 116/64 11/26/18 08:37 86 20 30 11/26/18 08:00 Mechanical Ventilator 11/26/18 08:00 99.5 85 20 116/64 (81) 95 11/26/18 08:00 85 11/26/18 08:00 30 11/26/18 06:32 88 25 30 11/26/18 06:11 96 146/63 11/26/18 06:11 146/63 11/26/18 04:49 95 26 30 11/26/18 04:00 Mechanical Ventilator 11/26/18 04:00 93 11/26/18 04:00 30 11/26/18 04:00 98.1 94 24 127/72 (90) 100 11/26/18 02:50 93 21 30 11/26/18 00:57 90 22 30 11/26/18 00:00 Mechanical Ventilator 11/26/18 00:00 99.1 90 21 124/64 (84) 100 11/25/18 23:38 90 11/25/18 22:51 93 24 30 11/25/18 22:05 99 162/71 11/25/18 22:05 162/71 11/25/18 20:49 96 24 30 11/25/18 20:00 Mechanical Ventilator 11/25/18 20:00 100.1 97 22 149/68 (95) 100 11/25/18 20:00 30 11/25/18 19:43 96 11/25/18 18:50 93 27 30 11/25/18 17:07 93 24 100 Mechanical Ventilator 30 11/25/18 17:05 93 24 30 11/25/18 16:00 91 11/25/18 16:00 30 11/25/18 16:00 Mechanical Ventilator 11/25/18 16:00 99.1 92 18 105/73 (84) 100 11/25/18 15:02 99 20 30 9/7/19 13:54 98 111/62 11/25/18 13:53 111/62 11/25/18 13:06 98 21 30 11/25/18 12:00 30 11/25/18 12:00 97 11/25/18 12:00 Mechanical Ventilator 11/25/18 12:00 99.0 98 18 111/62 (78) 100 Intake and Output 11/25/18 11/26/18 19:00 07:00 Intake Total 1163.708 ml 1630 ml Output Total 850 ml 1350 ml Balance 313.708 ml 280 ml Intake Free Water 100 ml 200 ml IV Total 933.708 ml 650 ml Tube Feeding 130 ml 780 ml Output Urine Total 850 ml 1350 ml # Bowel Movements 4 Laboratory Tests 11/25/18 15:00: Vancomycin Level Trough 10.1 11/26/18 03:10: White Blood Count 9.1, Red Blood Count 2.98L, Hemoglobin 7.6L, Hematocrit 22.7L , Mean Corpuscular Volume 76L, Mean Corpuscular Hemoglobin 25.6L, Mean Corpuscular Hemoglobin Concent 33.6, Red Cell Distribution Width 21.4H, Platelet Count 310, Mean Platelet Volume 5.3L, Neutrophils (%) (Auto) , Lymphocytes (%) (Auto) , Monocytes (%) (Auto) , Eosinophils (%) (Auto) , Basophils (%) (Auto) , Sodium Level 127L, Potassium Level 3.6, Chloride Level 93L, Carbon Dioxide Level 30, Anion Gap 4L, Blood Urea Nitrogen 13, Creatinine 0.4L, Estimat Glomerular Filtration Rate , Glucose Level 118H, Calcium Level 7.7L Height (Feet): 5 Height (Inches): 8.00 Weight (Pounds): 210 Objective General Appearance: no apparent distress, other - unresponsive on vent EENT: PERRL/EOMI, other - enlarged tongue protruding, lower lip severely swollen Neck: supple Cardiovascular: normal rate, regular rhythm Respiratory/Chest: lungs clear Abdomen: soft Neurologic: unresponsive Skin: Morbilliform rash to bilateral upper extremities and thighs Neftaly Walters M.D. Nov 26, 2018 11:07
--- NOTE | 2018-11-26 11:45 | NUR ---
NURSE NOTES: TURNED AND REPOSITIONED PATIENT. ORAL CARE DONE. TOLERATING TUBE FEEDING AND VENT SETTINGS. NO SIGNS OF DISTRESS OF THE MOMENT. WILL CONTINUE TO MONITOR.
[2018-11-26 12:00] VITALS: BP 112/69
--- NOTE | 2018-11-26 13:14 | Infectious Diseases Prog Note ---
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 fungal uti vs colonization, ? new line infection , ? new nosocomial infection - polymyxin and flagyl, vancomycin and micafungin - f/u on cultures, monitor labs and chest x-ray - fever curve better, leukocytosis resolved - previous picc line changed recently - 11/13/18 - CT scan without abscess or diverticulitis - sacral wound management per surgery - please see orders - case d/w Dr. Walters, RN and daughter at length - sdu care - rash improved off meropenem - ? enlarged tongue as source - ENT evaluation if possible - may need wbc scan 2. Trach-vent respiratory failure. 3. Dysphagia, G-tube. 4. Anemia. 5. Diabetes. 6. Hypertension. 7. Large tongue. 8. Anoxic brain injury. 9. Weakness. 10. Poorly responsive. 11. History of seizures. 12. History of colon adenocarcinoma. 13. Skin care protocol. 14. Allergy to crawfish. 15. Social history negative. 16. Family history noncontributory. 17. MAR was noted. 18. Case was discussed with RN. 19. Continue treatment per primary consultants. 20. Orders were ordered, entered, and noted. 21. Continue wound care protocol. 22. Continue blood sugar and blood pressure treatment per primary consultants for diabetes and hypertension. 23. vre colonization and isolation Subjective Constitutional: Reports: fever - fever curve better, lgt noted , fatigue, other - + trach and vent HEENT: Reports: congestion Respiratory: Reports: shortness of breath Cardiovascular: Reports: other - no pressors Gastrointestinal/Abdominal: Denies: nausea, vomiting, diarrhea Genitourinary: Reports: other - + nava Neurologic: Reports: weakness, other - poorly responsive Psychiatric: Reports: other - NA Skin: Reports: rash - stable Hematologic: Denies: bleeding Musculoskeletal: Reports: other - NA Allergies: Coded Allergies: Crayfish (Unverified Allergy, Unknown, 11/11/18) Uncoded Allergies: Crawfish (Allergy, Unknown, 11/09/18) Objective Vital Signs Last 24 Hour Vital Signs Date Time Temp Pulse Resp B/P (MAP) Pulse Ox O2 Delivery O2 Flow Rate FiO2 11/26/18 12:49 91 25 30 11/26/18 12:00 Mechanical Ventilator 11/26/18 12:00 96.6 85 20 112/69 (83) 97 11/26/18 12:00 30 11/26/18 12:00 87 11/26/18 10:46 85 23 30 11/26/18 08:49 86 116/64 11/26/18 08:37 86 20 30 11/26/18 08:00 Mechanical Ventilator 11/26/18 08:00 99.5 85 20 116/64 (81) 95 11/26/18 08:00 85 11/26/18 08:00 30 11/26/18 06:32 88 25 30 11/26/18 06:11 96 146/63 11/26/18 06:11 146/63 11/26/18 04:49 95 26 30 11/26/18 04:00 Mechanical Ventilator 11/26/18 04:00 93 11/26/18 04:00 30 11/26/18 04:00 98.1 94 24 127/72 (90) 100 11/26/18 02:50 93 21 30 11/26/18 00:57 90 22 30 11/26/18 00:00 Mechanical Ventilator 11/26/18 00:00 99.1 90 21 124/64 (84) 100 11/25/18 23:38 90 11/25/18 22:51 93 24 30 11/25/18 22:05 99 162/71 11/25/18 22:05 162/71 11/25/18 20:49 96 24 30 11/25/18 20:00 Mechanical Ventilator 11/25/18 20:00 100.1 97 22 149/68 (95) 100 11/25/18 20:00 30 11/25/18 19:43 96 11/25/18 18:50 93 27 30 11/25/18 17:07 93 24 100 Mechanical Ventilator 30 11/25/18 17:05 93 24 30 11/25/18 16:00 91 11/25/18 16:00 30 11/25/18 16:00 Mechanical Ventilator 11/25/18 16:00 99.1 92 18 105/73 (84) 100 11/25/18 15:02 99 20 30 11/25/18 13:54 98 111/62 11/25/18 13:53 111/62 Height (Feet): 5 Height (Inches): 8.00 Weight (Pounds): 210 General Appearance: other - + trach and vent HEENT: normocephalic, atraumatic, anicteric, no JVD, status post trach, other - tongue swelling noted Respiratory/Chest: crackles/rales, rhonchi - bilaterally Cardiovascular: normal rate, regular rhythm, no gallop/murmur, no JVD Abdomen: normal bowel sounds, soft, non tender, no organomegaly, non distended Genitourinary: other - + nava - urine slt cloudy Extremities: no cyanosis Skin: rash - stable Neurologic/Psychiatric: motor weakness, other - poorly responsive, weak Lymphatic: no neck adenopathy Musculoskeletal: no effusion Objective 11/11/18 - chest x-ray - IMPRESSION: 1. Hypoventilatory lungs. Elevated right hemidiaphragm. Slightly improved vascular congestion. Similar bibasilar lung atelectasis and airspace disease. 2. Query right pleural effusion. 2-D echo - no vegetations mentioned, report noted sacral x-ray - no osteo mentioned, report noted 11/14/18 - Technique: One view of the chest Comparison: November 13, 2018 post PICC radiograph Findings: Bilateral interstitial and alveolar edema versus infiltrates appear slightly worse. There is increasing obscuration of left hemidiaphragm, may reflect increasing pleural fluid as well. The heart remains enlarged. Previously demonstrated left arm PICC has been removed. Stable right arm PICC. Impression: Slightly worsening bilateral interstitial and airspace infiltrates versus edema, over one day 11/16/18 - chest x-ray Procedure: XRAY Chest 1v Indication: Dyspnea Technique: One view of the chest Comparison: November 14, 2018 Findings: Bilateral interstitial edema persists. Tracheostomy, right arm PICC remain. The heart is enlarged. Impression: Bilateral interstitial edema, unchanged over [address] abdomen and pelvis: Impression: No definite acute process Diverticulosis. No evidence of diverticulitis Extensive edema of the subcutaneous fat. 2 cm focal fluid collection/edema seen within the incision Moderate amount retained dense stool. Correlate with any clinical history of constipation Hiatal hernia. Gastrostomy Left renal parapelvic cysts Apparent prior hysterectomy Chest x-ray - 11/23/18 - Technique: One view of the chest Comparison: 11/20/2018 Findings: Less optimal inspiration currently, with resultant crowding of the bronchovascular markings. Interstitial congestion is probably not significantly changed, allowing for differences in exposure technique. Tracheostomy remains. Right arm PICC remains. Impression: Unchanged, over 3 days, findings as above. Chest x-ray - 11/26/18 - IMPRESSION: 1. Rotated film. Increased hazy opacity at the left lung and left retrocardiac opacity. 2. Decreased left pleural effusion. 3. Elevated right hemidiaphragm with probable pleural effusion and consolidation, similar. Microbiology Date/Time Source Procedure Growth Status 11/24/18 15:10 Blood Blood Culture - Preliminary NO GROWTH AFTER 24 HOURS Resulted 11/24/18 13:45 Blood Blood Culture - Preliminary NO GROWTH AFTER 24 HOURS Resulted 11/24/18 14:30 Sputum Induced Gram Stain - Final Resulted 11/24/18 14:30 Sputum Culture - Preliminary Gram Negative Ronaldo Resulted 11/24/18 13:45 Indwelling Cath Urine Culture - Preliminary NO GROWTH AFTER 24 HOURS Resulted Laboratory Tests Test 11/25/18 15:00 11/26/18 03:10 Vancomycin Level Trough 10.1 ug/mL (5.0-12.0) White Blood Count 9.1 K/UL (4.8-10.8) Red Blood Count 2.98 M/UL (4.20-5.40) L Hemoglobin 7.6 G/DL (12.0-16.0) L Hematocrit 22.7 % (37.0-47.0) L Mean Corpuscular Volume 76 FL (80-99) L Mean Corpuscular Hemoglobin 25.6 PG (27.0-31.0) L Mean Corpuscular Hemoglobin Concent 33.6 G/DL (32.0-36.0) Red Cell Distribution Width 21.4 % (11.6-14.8) H Platelet Count 310 K/UL (150-450) Mean Platelet Volume 5.3 FL (6.5-10.1) L Neutrophils (%) (Auto) % (45.0-75.0) Lymphocytes (%) (Auto) % (20.0-45.0) Monocytes (%) (Auto) % (1.0-10.0) Eosinophils (%) (Auto) % (0.0-3.0) Basophils (%) (Auto) % (0.0-2.0) Sodium Level 127 MMOL/L (136-145) L Potassium Level 3.6 MMOL/L (3.5-5.1) Chloride Level 93 MMOL/L (98-107) L Carbon Dioxide Level 30 MMOL/L (21-32) Anion Gap 4 mmol/L (5-15) L Blood Urea Nitrogen 13 mg/dL (7-18) Creatinine 0.4 MG/DL (0.55-1.30) L Estimat Glomerular Filtration Rate mL/min (>60) Glucose Level 118 MG/DL (74-106) H Calcium Level 7.7 MG/DL (8.5-10.1) L Current Medications Medications (Trade) Dose Ordered Sig/Lupe Route PRN Reason Start Time Stop Time Status Last Admin Dose Admin Acetaminophen (Tylenol) 650 mg Q4H PRN GT Mild Pain/Temp > 100.5 11/09/18 05:00 12/09/18 04:59 11/24/18 21:50 Amlodipine Besylate (Norvasc) 10 mg DAILY GT 11/09/18 09:00 12/09/18 08:59 11/26/18 08:49 Bisacodyl (Dulcolax) 10 mg DAILY PRN RECTAL Constipation 11/09/18 05:00 12/09/18 04:59 Calcium Carbonate (Tums) 500 mg EVERY 8 HOURS GT 11/09/18 14:00 12/09/18 08:59 11/26/18 06:11 Chlorhexidine Gluconate (Corazon-Hex 2%) 1 applic DAILY@2000 TOPIC 11/12/18 20:00 12/12/18 19:59 11/25/18 20:39 Dextrose (Dextrose 50%) 25 ml Q30M PRN IV Hypoglycemia 11/09/18 04:45 12/09/18 04:44 Dextrose (Dextrose 50%) 50 ml Q30M PRN IV Hypoglycemia 11/09/18 04:45 12/09/18 04:44 11/09/18 09:09 Enoxaparin Sodium (Lovenox) 40 mg DAILY SUBQ 11/09/18 09:00 12/09/18 08:59 11/26/18 08:55 Famotidine (Pepcid) 20 mg EVERY 12 HOURS GT 11/09/18 21:00 12/09/18 08:59 11/26/18 08:50 Ferrous Sulfate (Feosol) 300 mg THREE TIMES A DAY GT 11/23/18 13:00 12/23/18 12:59 11/26/18 08:48 Furosemide (Lasix) 40 mg EVERY 12 HOURS GT 11/09/18 09:00 12/09/18 08:59 11/26/18 08:49 Hydralazine HCl (Apresoline) 5 mg EVERY 8 HOURS GT 11/09/18 06:00 12/09/18 05:59 11/26/18 06:11 Insulin Aspart (NovoLOG) Q6HR SUBQ 11/09/18 06:00 12/09/18 05:59 11/26/18 11:45 Insulin Detemir (Levemir) 4 units EVERY 12 HOURS SUBQ 11/16/18 21:00 12/09/18 08:59 11/26/18 08:54 Labetalol HCl (Normodyne) 200 mg Q8HR GT 11/09/18 06:00 12/09/18 05:59 11/26/18 06:11 Levetiracetam (Keppra) 1,500 mg Q12HR GT 11/09/18 09:00 12/09/18 08:59 11/26/18 08:49 Magnesium Hydroxide (Mom) 30 ml DAILY PRN GT Constipation 11/09/18 05:00 12/09/18 04:59 Magnesium Oxide (Mag-Ox 400mg) 400 mg EVERY 8 HOURS GT 11/09/18 14:00 12/09/18 08:59 11/26/18 06:10 Metronidazole 100 ml @ 100 mls/hr Q8HR IVPB 11/21/18 22:00 11/28/18 21:59 11/26/18 06:05 Micafungin Sodium 100 mg/Sodium Chloride 100 ml @ 100 mls/hr Q24H IVPB 11/24/18 14:00 12/01/18 13:59 11/25/18 13:53 Ondansetron HCl (Zofran) 4 mg Q6H PRN GT Nausea & Vomiting 11/09/18 05:00 12/09/18 04:59 Phenobarbital (PHENobarbital) 60 mg BID GT 11/09/18 09:00 12/09/18 08:59 11/26/18 08:48 Phenytoin (Dilantin) 100 mg Q8HR GT 11/09/18 06:00 12/09/18 05:59 11/26/18 06:14 Polyethylene Glycol (Miralax) 17 gm DAILYPRN PRN GT Constipation 11/14/18 10:30 12/12/18 10:29 Polymyxin B Sulfate 305201 units/Dextrose 550 ml @ 550 mls/hr EVERY 12 HOURS IV 11/21/18 21:00 11/28/18 20:59 11/26/18 09:47 Sennosides (Senokot) 8.6 mg EVERY 12 HOURS GT 11/09/18 21:00 12/09/18 08:59 11/26/18 08:50 Valproic Acid (Depakene) 500 mg EVERY 8 HOURS GT 11/09/18 06:00 12/09/18 05:59 11/26/18 06:15 Vancomycin HCl (Vanco rx to dose) 1 ea DAILY PRN MISC Per rx protocol 11/24/18 13:00 12/24/18 12:59 Vancomycin HCl 1 gm/Dextrose 275 ml @ 183.708 mls/hr Q12HR@0400,1600 IVPB 11/25/18 16:00 11/30/18 15:59 11/26/18 03:57 Dasha Crews MD Nov 26, 2018 13:14
[2018-11-26 16:00] VITALS: BP 115/65
[2018-11-26] MEDS ORDERED: NS 275ml ONE (16:43)
--- NOTE | 2018-11-26 18:12 | NUR ---
NURSE NOTES: PATIENT KEPT CLEAN AND DRY. NO SIGNS OF DISTRESS. WILL CONTINUE TO MONITOR.
--- NOTE | 2018-11-26 19:00 | Pulmonology Progress Note ---
Assessment/Plan Assessment/Plan Pulmonary Progress Note Assessment/Plan Problems: (1) Ventilator dependence (2) Tracheostomy dependence (3) UTI (urinary tract infection) (4) Fever (5) Anoxic brain damage (6) Tongue abnormality (7) Seizure disorder (8) Colon adenocarcinoma (9) HTN (hypertension) (10) Sepsis (11) Diabetes (12) Abnormal LFTs (13) Protein calorie malnutrition (14) Gastrostomy in place (15) alf resident (16) Decubitus skin ulcer Assessment/Plan Continue ventilatory support/settings reviewed Titrate down FiO2 to keep SaO2 > 90% Optimize pulmonary hygiene/mobilize as tolerated RTC and PRN HHN's Abx per ID, F/U Cx's F/U CT AP F/U cards recs Monitor volumes and renal function DVT Px: LMWH Needs to be seen by OMFS or DDS, needs a tooth extraction FC, continue to discuss GOC Wound care ENT consult pending for protruded tongue Subjective Allergies: Coded Allergies: Crayfish (Unverified Allergy, Unknown, 11/11/18) Uncoded Allergies: Crawfish (Allergy, Unknown, 11/09/18) Subjective Tm 102.9 VSS stable on vent no sig secretions no distress Objective Vital Signs Noted General Appearance: no acute distress, cachetic, other - non verbal HEENT: normocephalic, atraumatic, anicteric, mucous membranes moist, status post trach, other - macroglassia and tongue edema Respiratory/Chest: chest wall non-tender, lungs clear, normal breath sounds, no respiratory distress, no accessory muscle use Cardiovascular: normal peripheral pulses, normal rate, regular rhythm Abdomen: normal bowel sounds, soft, non tender, no organomegaly, non distended , no mass, other - GT Extremities: no cyanosis, no clubbing, no edema Laboratory Tests 11/22/18 08:30: White Blood Count 8.0, Red Blood Count 3.12L, Hemoglobin 8.0L, Hematocrit 24.3L , Mean Corpuscular Volume 78L, Mean Corpuscular Hemoglobin 25.6L, Mean Corpuscular Hemoglobin Concent 32.9, Red Cell Distribution Width 22.0H, Platelet Count 404, Mean Platelet Volume 5.2L, Neutrophils (%) (Auto) 78.3H, Lymphocytes (%) (Auto) 13.3L, Monocytes (%) (Auto) 6.2, Eosinophils (%) (Auto) 1.4, Basophils (%) (Auto) 0.8, Sodium Level 137, Potassium Level 3.2L, Chloride Level 100, Carbon Dioxide Level 30, Anion Gap 7, Blood Urea Nitrogen 16, Creatinine 0.3L, Estimat Glomerular Filtration Rate , Glucose Level 123H, Calcium Level 7.7L, Total Bilirubin 0.2, Aspartate Amino Transf (AST/SGOT) 153H , Alanine Aminotransferase (ALT/SGPT) 115H, Alkaline Phosphatase 250H, Total Protein 5.2L, Albumin 1.0L, Globulin 4.2, Albumin/Globulin Ratio 0.2L, Vancomycin Level Trough 10.1 Current Medications Medications (Trade) Dose Ordered Sig/Lupe Route PRN Reason Start Time Stop Time Status Last Admin Dose Admin Acetaminophen (Tylenol) 650 mg Q4H PRN GT Mild Pain/Temp > 100.5 11/09/18 05:00 12/09/18 04:59 11/22/18 00:45 Albuterol/ Ipratropium (Albuterol/ Ipratropium) 3 ml Q4H PRN HHN Shortness of Breath 11/17/18 12:30 11/22/18 12:29 Amlodipine Besylate (Norvasc) 10 mg DAILY GT 11/09/18 09:00 12/09/18 08:59 11/22/18 08:18 Bisacodyl (Dulcolax) 10 mg DAILY PRN RECTAL Constipation 11/09/18 05:00 12/09/18 04:59 Calcium Carbonate (Tums) 500 mg EVERY 8 HOURS GT 11/09/18 14:00 12/09/18 08:59 11/22/18 05:40 Chlorhexidine Gluconate (Corazon-Hex 2%) 1 applic DAILY@2000 TOPIC 11/12/18 20:00 12/12/18 19:59 11/21/18 22:38 Dextrose (Dextrose 50%) 25 ml Q30M PRN IV Hypoglycemia 11/09/18 04:45 12/09/18 04:44 Dextrose (Dextrose 50%) 50 ml Q30M PRN IV Hypoglycemia 11/09/18 04:45 12/09/18 04:44 11/09/18 09:09 Enoxaparin Sodium (Lovenox) 40 mg DAILY SUBQ 11/09/18 09:00 12/09/18 08:59 11/22/18 08:20 Famotidine (Pepcid) 20 mg EVERY 12 HOURS GT 11/09/18 21:00 12/09/18 08:59 11/22/18 08:18 Furosemide (Lasix) 40 mg EVERY 12 HOURS GT 11/09/18 09:00 12/09/18 08:59 11/22/18 08:18 Hydralazine HCl (Apresoline) 5 mg EVERY 8 HOURS GT 11/09/18 06:00 12/09/18 05:59 11/22/18 05:39 Insulin Aspart (NovoLOG) Q6HR SUBQ 11/09/18 06:00 12/09/18 05:59 11/22/18 00:20 Insulin Detemir (Levemir) 4 units EVERY 12 HOURS SUBQ 11/16/18 21:00 12/09/18 08:59 11/21/18 21:46 Labetalol HCl (Normodyne) 200 mg Q8HR GT 11/09/18 06:00 12/09/18 05:59 11/22/18 05:40 Levetiracetam (Keppra) 1,500 mg Q12HR GT 11/09/18 09:00 12/09/18 08:59 11/22/18 08:19 Magnesium Hydroxide (Mom) 30 ml DAILY PRN GT Constipation 11/09/18 05:00 12/09/18 04:59 Magnesium Oxide (Mag-Ox 400mg) 400 mg EVERY 8 HOURS GT 11/09/18 14:00 12/09/18 08:59 11/22/18 05:40 Metronidazole 100 ml @ 100 mls/hr Q8HR IVPB 11/21/18 22:00 11/28/18 21:59 11/22/18 05:41 Ondansetron HCl (Zofran) 4 mg Q6H PRN GT Nausea & Vomiting 11/09/18 05:00 12/09/18 04:59 Phenobarbital (PHENobarbital) 60 mg BID GT 11/09/18 09:00 12/09/18 08:59 11/22/18 08:18 Phenytoin (Dilantin) 100 mg Q8HR GT 11/09/18 06:00 12/09/18 05:59 11/22/18 05:40 Polyethylene Glycol (Miralax) 17 gm DAILYPRN PRN GT Constipation 11/14/18 10:30 12/12/18 10:29 Polymyxin B Sulfate 016953 units/Dextrose 550 ml @ 550 mls/hr EVERY 12 HOURS IV 11/21/18 21:00 11/28/18 20:59 11/22/18 08:46 Sennosides (Senokot) 8.6 mg EVERY 12 HOURS GT 11/09/18 21:00 12/09/18 08:59 11/22/18 08:18 Valproic Acid (Depakene) 500 mg EVERY 8 HOURS GT 11/09/18 06:00 12/09/18 05:59 11/22/18 05:36 Subjective ROS Limited/Unobtainable: No Allergies: Coded Allergies: Crayfish (Unverified Allergy, Unknown, 11/11/18) Uncoded Allergies: Crawfish (Allergy, Unknown, 11/09/18) Objective Last 24 Hour Vital Signs Date Time Temp Pulse Resp B/P (MAP) Pulse Ox O2 Delivery O2 Flow Rate FiO2 11/26/18 17:00 86 21 30 11/26/18 16:00 Mechanical Ventilator 11/26/18 16:00 99.2 86 20 115/65 (82) 100 11/26/18 16:00 86 11/26/18 16:00 30 11/26/18 14:57 86 24 30 11/26/18 13:18 91 112/69 11/26/18 13:18 112/69 11/26/18 12:49 91 25 30 11/26/18 12:00 Mechanical Ventilator 11/26/18 12:00 96.6 85 20 112/69 (83) 97 11/26/18 12:00 30 11/26/18 12:00 87 11/26/18 10:46 85 23 30 11/26/18 08:49 86 116/64 11/26/18 08:37 86 20 30 11/26/18 08:00 Mechanical Ventilator 11/26/18 08:00 99.5 85 20 116/64 (81) 95 11/26/18 08:00 85 11/26/18 08:00 30 11/26/18 06:32 88 25 30 11/26/18 06:11 96 146/63 11/26/18 06:11 146/63 9/8/19 04:49 95 26 30 11/26/18 04:00 Mechanical Ventilator 11/26/18 04:00 93 11/26/18 04:00 30 11/26/18 04:00 98.1 94 24 127/72 (90) 100 11/26/18 02:50 93 21 30 11/26/18 00:57 90 22 30 11/26/18 00:00 Mechanical Ventilator 11/26/18 00:00 99.1 90 21 124/64 (84) 100 11/25/18 23:38 90 11/25/18 22:51 93 24 30 11/25/18 22:05 99 162/71 11/25/18 22:05 162/71 11/25/18 20:49 96 24 30 11/25/18 20:00 Mechanical Ventilator 11/25/18 20:00 100.1 97 22 149/68 (95) 100 11/25/18 20:00 30 11/25/18 19:43 96 Intake and Output 11/25/18 11/26/18 18:59 06:59 Intake Total 1163.708 ml 1630 ml Output Total 850 ml 1350 ml Balance 313.708 ml 280 ml Intake Free Water 100 ml 200 ml IV Total 933.708 ml 650 ml Tube Feeding 130 ml 780 ml Output Urine Total 850 ml 1350 ml # Bowel Movements 4 Microbiology Date/Time Source Procedure Growth Status 11/24/18 15:10 Blood Blood Culture - Preliminary NO GROWTH AFTER 24 HOURS Resulted 11/24/18 13:45 Blood Blood Culture - Preliminary NO GROWTH AFTER 24 HOURS Resulted 11/24/18 14:30 Sputum Induced Gram Stain - Final Resulted 11/24/18 14:30 Sputum Culture - Preliminary Gram Negative Ronaldo Resulted 11/24/18 13:45 Indwelling Cath Urine Culture - Preliminary NO GROWTH AFTER 24 HOURS Resulted Laboratory Tests 11/26/18 03:10: White Blood Count 9.1, Red Blood Count 2.98L, Hemoglobin 7.6L, Hematocrit 22.7L , Mean Corpuscular Volume 76L, Mean Corpuscular Hemoglobin 25.6L, Mean Corpuscular Hemoglobin Concent 33.6, Red Cell Distribution Width 21.4H, Platelet Count 310, Mean Platelet Volume 5.3L, Neutrophils (%) (Auto) , Lymphocytes (%) (Auto) , Monocytes (%) (Auto) , Eosinophils (%) (Auto) , Basophils (%) (Auto) , Sodium Level 127L, Potassium Level 3.6, Chloride Level 93L, Carbon Dioxide Level 30, Anion Gap 4L, Blood Urea Nitrogen 13, Creatinine 0.4L, Estimat Glomerular Filtration Rate , Glucose Level 118H, Calcium Level 7.7L Current Medications Medications (Trade) Dose Ordered Sig/Lupe Route PRN Reason Start Time Stop Time Status Last Admin Dose Admin Acetaminophen (Tylenol) 650 mg Q4H PRN GT Mild Pain/Temp > 100.5 11/09/18 05:00 12/09/18 04:59 11/24/18 21:50 Amlodipine Besylate (Norvasc) 10 mg DAILY GT 11/09/18 09:00 12/09/18 08:59 11/26/18 08:49 Bisacodyl (Dulcolax) 10 mg DAILY PRN RECTAL Constipation 11/09/18 05:00 12/09/18 04:59 Calcium Carbonate (Tums) 500 mg EVERY 8 HOURS GT 11/09/18 14:00 12/09/18 08:59 11/26/18 13:18 Chlorhexidine Gluconate (Corazon-Hex 2%) 1 applic DAILY@1999 TOPIC 11/12/18 20:00 12/12/18 19:59 11/25/18 20:39 Dextrose (Dextrose 50%) 25 ml Q30M PRN IV Hypoglycemia 11/09/18 04:45 12/09/18 04:44 Dextrose (Dextrose 50%) 50 ml Q30M PRN IV Hypoglycemia 11/09/18 04:45 12/09/18 04:44 11/09/18 09:09 Enoxaparin Sodium (Lovenox) 40 mg DAILY SUBQ 11/09/18 09:00 12/09/18 08:59 11/26/18 08:55 Famotidine (Pepcid) 20 mg EVERY 12 HOURS GT 11/09/18 21:00 12/09/18 08:59 11/26/18 08:50 Ferrous Sulfate (Feosol) 300 mg THREE TIMES A DAY GT 11/23/18 13:00 12/23/18 12:59 11/26/18 17:49 Furosemide (Lasix) 40 mg EVERY 12 HOURS GT 11/09/18 09:00 12/09/18 08:59 11/26/18 08:49 Hydralazine HCl (Apresoline) 5 mg EVERY 8 HOURS GT 11/09/18 06:00 12/09/18 05:59 11/26/18 13:18 Insulin Aspart (NovoLOG) Q6HR SUBQ 11/09/18 06:00 12/09/18 05:59 11/26/18 17:54 Insulin Detemir (Levemir) 4 units EVERY 12 HOURS SUBQ 11/16/18 21:00 12/09/18 08:59 11/26/18 08:54 Labetalol HCl (Normodyne) 200 mg Q8HR GT 11/09/18 06:00 12/09/18 05:59 11/26/18 13:18 Levetiracetam (Keppra) 1,500 mg Q12HR GT 11/09/18 09:00 12/09/18 08:59 11/26/18 08:49 Magnesium Hydroxide (Mom) 30 ml DAILY PRN GT Constipation 11/09/18 05:00 12/09/18 04:59 Magnesium Oxide (Mag-Ox 400mg) 400 mg EVERY 8 HOURS GT 11/09/18 14:00 12/09/18 08:59 11/26/18 13:18 Metronidazole 100 ml @ 100 mls/hr Q8HR IVPB 11/26/18 14:00 12/03/18 13:59 11/26/18 13:20 Micafungin Sodium 100 mg/Sodium Chloride 100 ml @ 100 mls/hr Q24H IVPB 11/24/18 14:00 12/01/18 13:59 11/26/18 13:19 Ondansetron HCl (Zofran) 4 mg Q6H PRN GT Nausea & Vomiting 11/09/18 05:00 12/09/18 04:59 Phenobarbital (PHENobarbital) 60 mg BID GT 11/09/18 09:00 12/09/18 08:59 11/26/18 17:49 Phenytoin (Dilantin) 100 mg Q8HR GT 11/09/18 06:00 12/09/18 05:59 11/26/18 13:18 Polyethylene Glycol (Miralax) 17 gm DAILYPRN PRN GT Constipation 11/14/18 10:30 12/12/18 10:29 Polymyxin B Sulfate 822079 units/Dextrose 550 ml @ 550 mls/hr EVERY 12 HOURS IV 11/26/18 21:00 12/03/18 20:59 Sennosides (Senokot) 8.6 mg EVERY 12 HOURS GT 11/09/18 21:00 12/09/18 08:59 11/26/18 08:50 Valproic Acid (Depakene) 500 mg EVERY 8 HOURS GT 11/09/18 06:00 12/09/18 05:59 11/26/18 13:18 Vancomycin HCl (Vanco rx to dose) 1 ea DAILY PRN MISC Per rx protocol 11/24/18 13:00 12/24/18 12:59 Vancomycin HCl 1 gm/Dextrose 275 ml @ 183.708 mls/hr Q12HR@0400,1600 IVPB 11/25/18 16:00 11/30/18 15:59 11/26/18 15:24 Eloy Vega MD Nov 26, 2018 19:00
--- NOTE | 2018-11-26 19:11 | NUR ---
HAND-OFF: Report given to Anais Ramon RN.
--- NOTE | 2018-11-26 19:12 | NUR ---
NURSE NOTES: Report received from CHARLEE Ortiz. Observed pt lying in the bed. Obtunded but open eyes with deep stimulation. Trac to vent, sh8, AC 14, TV 375, FIO2 30%, PEEP 5. Gtube intact and running gluncerna 1.2 running at 65cc/hr. F/C intact and draining well. PICC on KAITLYNN, TKO. generalized edema noted. Edema on tongue noted. Left ear tear noted, covered with optifom. Full thickness wound on sacral. skin tear on left thigh noted. Bed in the lowest position. Side rails up x3, padded. Will continue to monitor.
--- NOTE | 2018-11-26 19:26 | NUR ---
NURSE NOTES: Report received from CHARLEE Ortiz. Observed pt sleeping but arousable, family members at bedside. A/O x3-4. ST with HR of 100s. On NC 3L with no sob. No acute distress noted at this time. Noted Heparin drip 13U/kg/hr, next ptt tomorrow morning noted, running on L W 20G. IV R FA 20G, running NS with 20meq, 100ml/hr. Bed in the lowest position. Side rails up x2. Call light within reach. Will continue to monitor. Addendum: 11/27/18 at 0651 by Jeison Ramon RN wrong pt.
[2018-11-26 20:00] VITALS: BP 137/73
[2018-11-26] MEDS: Dyna-Hex 2% Top Sol 2oz TOPIC SCH (20:57)
[2018-11-27] VITALS: BP 109/63
--- NOTE | 2018-11-27 | NUR ---
NURSE NOTES: Observed pt sleeping in the bed. Hard to arouse pt but pt opens her eyes when repositioned. Oral care done. Suction done and noted small amount of white sputum. Applied moisture cream on her tongue. No fever noted. Will continue to monitor.
[2018-11-27] MEDS: NovoLOG Insulin Flexpen SUBQ SCH ×4 (00:03→17:49)
[2018-11-27 03:35] LABS: HEMATOCRIT 21.8 % (37.0-47.0); HEMOGLOBIN 7.5 G/DL (12.0-16.0); MEAN CORPUSCULAR VOLUME 75 FL (80-99); PLATELET COUNT 275 K/UL (150-450); RED BLOOD COUNT 2.91 M/UL (4.20-5.40); RED CELL DISTRIBUTION WIDTH 20.7 % (11.6-14.8); WHITE BLOOD COUNT 9.6 K/UL (4.8-10.8)
[2018-11-27 03:47] LABS: ALANINE AMINOTRANSFERASE 115 U/L (12-78); ALBUMIN 0.9 G/DL (3.4-5.0); ALBUMIN/GLOBULIN RATIO 0.2 (1.0-2.7); ALKALINE PHOSPHATASE 439 U/L (46-116); ANION GAP 5 mmol/L (5-15); ASPARTATE AMINO TRANSFERASE 191 U/L (15-37); BILIRUBIN,TOTAL 0.3 MG/DL (0.2-1.0); BLOOD UREA NITROGEN 12 mg/dL (7-18); CALCIUM 7.1 MG/DL (8.5-10.1); CARBON DIOXIDE 30 MMOL/L (21-32); CHLORIDE 92 MMOL/L (98-107); CREATININE 0.4 MG/DL (0.55-1.30); POTASSIUM 3.4 MMOL/L (3.5-5.1); SODIUM 126 MMOL/L (136-145)
[2018-11-27 04:00] VITALS: BP 118/76
[2018-11-27] MEDS: Vancomycin 1gm/D5W 275ml IVPB SCH ×4 (05:17→16:37)
[2018-11-27] MEDS: Phenytoin Susp 100mg/4ml GT SCH ×3 (05:18→22:11)
[2018-11-27] MEDS: Valproic Acid 250mg/5ml Liquid GT SCH ×3 (05:18→22:10)
[2018-11-27] MEDS: HydrALAZINE 10mg Tab GT SCH ×3 (05:19→22:06)
[2018-11-27] MEDS: Tums 500mg GT SCH ×3 (05:19→22:07)
[2018-11-27] MEDS: Magnesium Oxide 400mg tab GT SCH ×3 (05:19→21:26)
[2018-11-27] MEDS: Labetalol 200mg tab GT SCH ×3 (05:19→22:12)
--- NOTE | 2018-11-27 06:00 | NUR ---
NURSE NOTES: Pt's resting in bed, in no acute distress. VS stable. Will continue to monitor.
--- NOTE | 2018-11-27 06:38 | NUR ---
NURSE NOTES: Notified regarding hgb of 7.5 and 1PRBC order received. Addendum: 11/27/18 at 0639 by Jeison Ramon RN consent by telephone received from family member.
--- NOTE | 2018-11-27 07:35 | NUR ---
HAND-OFF: Report given to CHARLEE Yeh.
--- NOTE | 2018-11-27 07:36 | NUR ---
NURSE NOTES: Received report and PT from CHARLEE Medel. PT received obtunded, arousable but no tracking with eyes. PT trached with vent settings shiley 8, AC 14, TV 375, 30%, peep 5, VS stable, no respiratory distress noted. G-tube feeding of glucerna 1.2 @ 65cc/hr, minimal to no residual noted during morning rounds. PT has R-upperarm PICC, dressing changed 11/24/18, running TKO during morning rounds. PT is due for 1u blood transfusion today, consent needs to be sign by MD David; CN aware of order. No fever noted overnight, fan at PT bedsides on during rounds. Will continue to monitor PT and follow through with plan of care.
[2018-11-27 08:00] VITALS: BP 111/59
[2018-11-27] MEDS: Furosemide 40mg tab GT SCH ×2 (08:52→20:45)
[2018-11-27] MEDS: Sennosides 8.6mg tab GT SCH ×2 (08:53→20:47)
[2018-11-27] MEDS: Ferrous Sulfate 300 MG/5 ML UDC GT SCH (08:53)
[2018-11-27] MEDS: PHENobarbital Elixir 30mg/7.5ml GT SCH ×2 (08:54→17:49)
[2018-11-27] MEDS: levETIRAcetam 500mg/5ml Liquid GT SCH ×2 (08:54→20:49)
[2018-11-27] MEDS: Levemir Flexpen SUBQ SCH ×2 (08:57→21:10)
[2018-11-27] MEDS: Enoxaparin 40mg Inj SUBQ SCH (08:57)
[2018-11-27] MEDS: Polymyxin B Sulfate 500,000 UNITS in D5W 500ml 550 ML IV SCH ×2 (08:59→20:45)
--- NOTE | 2018-11-27 09:53 | General Progress Note ---
Assessment/Plan Status: stable Assessment/Plan: (1) Abnormal LFTs ICD Codes: R94.5 - Abnormal results of liver function studies SNOMED: 765739446 (2) Decubitus skin ulcer ICD Codes: L89.90 - Pressure ulcer of unspecified site, unspecified stage SNOMED: 002092144 (3) Protein calorie malnutrition ICD Codes: E46 - Unspecified protein-calorie malnutrition SNOMED: 935199590 (4) Colon adenocarcinoma ICD Codes: C18.9 - Malignant neoplasm of colon, unspecified SNOMED: 463074934 (5) Sepsis ICD Codes: A41.9 - Sepsis, unspecified organism SNOMED: 96213334 (6) Tracheostomy dependence ICD Codes: Z93.0 - Tracheostomy status SNOMED: 734575354 (7) 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 Humphries. Assessment/Plan Assessment - Iron deficiency anemia - abnormal LFT - ? meds, passive congestion - dysphagia, s/p GT - Resp, failure, s/p Trach - hepatitis panel negative Recommendations - Continue TF - Monitor LFT - follow CBC - Conservative approach given poor healt- -CT and us reviewed Subjective ROS Limited/Unobtainable: No Allergies: Coded Allergies: Crayfish (Unverified Allergy, Unknown, 11/11/18) Uncoded Allergies: Crawfish (Allergy, Unknown, 11/09/18) Subjective fever last night had BM Objective Last 24 Hour Vital Signs Date Time Temp Pulse Resp B/P (MAP) Pulse Ox O2 Delivery O2 Flow Rate FiO2 11/27/18 08:59 77 111/59 11/27/18 08:56 77 20 30 11/27/18 08:00 Mechanical Ventilator 11/27/18 08:00 30 11/27/18 08:00 97.4 77 19 111/59 (76) 100 11/27/18 07:29 79 21 30 11/27/18 05:19 86 118/76 11/27/18 05:19 118/76 11/27/18 05:08 86 21 30 11/27/18 04:00 Mechanical Ventilator 11/27/18 04:00 30 11/27/18 04:00 97.7 87 26 118/76 (90) 100 11/27/18 03:21 89 23 30 11/27/18 03:20 89 11/27/18 01:31 86 22 30 11/27/18 00:00 84 11/27/18 00:00 30 11/27/18 00:00 97.9 86 26 109/63 (78) 100 11/27/18 00:00 Mechanical Ventilator 11/26/18 23:16 87 25 30 11/26/18 21:22 94 137/73 11/26/18 21:22 137/73 11/26/18 21:19 89 27 30 11/26/18 20:00 93 11/26/18 20:00 Mechanical Ventilator 11/26/18 20:00 30 11/26/18 20:00 98.8 94 26 137/73 (94) 100 11/26/18 19:12 94 26 30 11/26/18 17:00 86 21 30 11/26/18 16:00 Mechanical Ventilator 11/26/18 16:00 99.2 86 20 115/65 (82) 100 11/26/18 16:00 86 11/26/18 16:00 30 11/26/18 14:57 86 24 30 11/26/18 13:18 91 112/69 11/26/18 13:18 112/69 11/26/18 12:49 91 25 30 11/26/18 12:00 Mechanical Ventilator 11/26/18 12:00 96.6 85 20 112/69 (83) 97 11/26/18 12:00 30 11/26/18 12:00 87 11/26/18 10:46 85 23 30 Intake and Output 11/26/18 11/27/18 19:00 07:00 Intake Total 2087.4166 ml 1505 ml Output Total 1100 ml 1100 ml Balance 987.4166 ml 405 ml Intake Free Water 100 ml 140 ml IV Total 1207.4166 ml 650 ml Tube Feeding 780 ml 715 ml Output Urine Total 1100 ml 1100 ml # Bowel Movements 1 1 Laboratory Tests 11/27/18 03:00: White Blood Count 9.6, Red Blood Count 2.91L, Hemoglobin 7.5L, Hematocrit 21.8L , Mean Corpuscular Volume 75L, Mean Corpuscular Hemoglobin 25.7L, Mean Corpuscular Hemoglobin Concent 34.3, Red Cell Distribution Width 20.7H, Platelet Count 275, Mean Platelet Volume 5.8L, Neutrophils (%) (Auto) , Lymphocytes (%) (Auto) , Monocytes (%) (Auto) , Eosinophils (%) (Auto) , Basophils (%) (Auto) , Sodium Level 126L, Potassium Level 3.4L, Chloride Level 92L, Carbon Dioxide Level 30, Anion Gap 5, Blood Urea Nitrogen 12, Creatinine 0.4L, Estimat Glomerular Filtration Rate , Glucose Level 142H, Calcium Level 7.1L, Total Bilirubin 0.3, Aspartate Amino Transf (AST/SGOT) 191H, Alanine Aminotransferase (ALT/SGPT) 115H, Alkaline Phosphatase 439H, Total Protein 4.8L , Albumin 0.9L, Globulin 3.9, Albumin/Globulin Ratio 0.2L, Vancomycin Level Trough 15.6H Height (Feet): 5 Height (Inches): 8.00 Weight (Pounds): 210 General Appearance: lethargic EENT: normal ENT inspection Neck: supple Cardiovascular: normal rate Respiratory/Chest: decreased breath sounds Abdomen: normal bowel sounds, non tender, soft Extremities: non-tender Casper Humphries MD Nov 27, 2018 09:53
--- NOTE | 2018-11-27 11:23 | Surgery Progress Note ---
Surgery Progress Note Subjective Additional Comments Patient seen and examined bedside. No acute events. Exam remained stable. On vent support. Tolerating diet Afebrile. Leukocytosis resolved. Otherwise stable. Objective Last 24 Hour Vital Signs Date Time Temp Pulse Resp B/P (MAP) Pulse Ox O2 Delivery O2 Flow Rate FiO2 11/27/18 11:16 81 30 30 11/27/18 08:59 77 111/59 11/27/18 08:56 77 20 30 11/27/18 08:00 Mechanical Ventilator 11/27/18 08:00 79 11/27/18 08:00 30 11/27/18 08:00 97.4 77 19 111/59 (76) 100 11/27/18 07:29 79 21 30 11/27/18 05:19 86 118/76 11/27/18 05:19 118/76 11/27/18 05:08 86 21 30 11/27/18 04:00 Mechanical Ventilator 11/27/18 04:00 30 11/27/18 04:00 97.7 87 26 118/76 (90) 100 11/27/18 03:21 89 23 30 11/27/18 03:20 89 11/27/18 01:31 86 22 30 11/27/18 00:00 84 11/27/18 00:00 30 11/27/18 00:00 97.9 86 26 109/63 (78) 100 11/27/18 00:00 Mechanical Ventilator 11/26/18 23:16 87 25 30 11/26/18 21:22 94 137/73 11/26/18 21:22 137/73 11/26/18 21:19 89 27 30 11/26/18 20:00 93 11/26/18 20:00 Mechanical Ventilator 11/26/18 20:00 30 11/26/18 20:00 98.8 94 26 137/73 (94) 100 11/26/18 19:12 94 26 30 11/26/18 17:00 86 21 30 11/26/18 16:00 Mechanical Ventilator 11/26/18 16:00 99.2 86 20 115/65 (82) 100 11/26/18 16:00 86 11/26/18 16:00 30 11/26/18 14:57 86 24 30 11/26/18 13:18 91 112/69 9/8/19 13:18 112/69 11/26/18 12:49 91 25 30 11/26/18 12:00 Mechanical Ventilator 11/26/18 12:00 96.6 85 20 112/ (83) 97 11/26/18 12:00 30 11/26/18 12:00 87 I&O Intake and Output 11/26/18 11/27/18 19:00 07:00 Intake Total 2087.4166 ml 1505 ml Output Total 1100 ml 1100 ml Balance 987.4166 ml 405 ml Intake Free Water 100 ml 140 ml IV Total 1207.4166 ml 650 ml Tube Feeding 780 ml 715 ml Output Urine Total 1100 ml 1100 ml # Bowel Movements 1 1 Dressing: saturated, other Wound: other Drains: other Cardiovascular: RSR Respiratory: decreased breath sounds Abdomen: soft, present bowel sounds, other, non-distended Extremities: no cyanosis, other Laboratory Tests Test 11/27/18 03:00 White Blood Count 9.6 K/UL (4.8-10.8) Red Blood Count 2.91 M/UL (4.20-5.40) L Hemoglobin 7.5 G/DL (12.0-16.0) L Hematocrit 21.8 % (37.0-47.0) L Mean Corpuscular Volume 75 FL (80-99) L Mean Corpuscular Hemoglobin 25.7 PG (27.0-31.0) L Mean Corpuscular Hemoglobin Concent 34.3 G/DL (32.0-36.0) Red Cell Distribution Width 20.7 % (11.6-14.8) H Platelet Count 275 K/UL (150-450) Mean Platelet Volume 5.8 FL (6.5-10.1) L Neutrophils (%) (Auto) % (45.0-75.0) Lymphocytes (%) (Auto) % (20.0-45.0) Monocytes (%) (Auto) % (1.0-10.0) Eosinophils (%) (Auto) % (0.0-3.0) Basophils (%) (Auto) % (0.0-2.0) Sodium Level 126 MMOL/L (136-145) L Potassium Level 3.4 MMOL/L (3.5-5.1) L Chloride Level 92 MMOL/L (98-107) L Carbon Dioxide Level 30 MMOL/L (21-32) Anion Gap 5 mmol/L (5-15) Blood Urea Nitrogen 12 mg/dL (7-18) Creatinine 0.4 MG/DL (0.55-1.30) L Estimat Glomerular Filtration Rate mL/min (>60) Glucose Level 142 MG/DL (74-106) H Calcium Level 7.1 MG/DL (8.5-10.1) L Total Bilirubin 0.3 MG/DL (0.2-1.0) Aspartate Amino Transf (AST/SGOT) 191 U/L (15-37) H Alanine Aminotransferase (ALT/SGPT) 115 U/L (12-78) H Alkaline Phosphatase 439 U/L (46-116) H Total Protein 4.8 G/DL (6.4-8.2) L Albumin 0.9 G/DL (3.4-5.0) L Globulin 3.9 g/dL Albumin/Globulin Ratio 0.2 (1.0-2.7) L Vancomycin Level Trough 15.6 ug/mL (5.0-12.0) H Plan Problems: (1) Fever (2) Tongue abnormality Assessment & Plan: patients jaw clenched closed and tongue has been stuck for some time. tongue split from middle teeth and now in two. edema and unable to reduce keep tongue moist. apply lube jelly prn dryness. will monitor do not recommend surgical intervention for this current medical condition spoke with family. ENT plan to see. OMFS no intervention (3) Tracheostomy dependence (4) Sepsis Assessment & Plan: gb no stones 6mm polyp no acute surgical intervention planned trend labs improving labs improved DAILY ESTIMATED NEEDS: Needs based on Critical care, sepsis, wound 60kg adj 22-30 kcals/kg [id number] total kcals 1.25-2 g protein/kg 75-120 g total protein Fluid per MD, on lasix NUTRITION DIAGNOSIS: * Swallowing difficulty r/t respiratory status as evidenced by pt is vent dep via trach and PEG dep. * Increased kcal and pro needs r/t wound healing and sepsis as evidenced by pt w/ sacral and R heel wounds, febrile (Tmax 101.5). CURRENT TF: Jevity 1.2 @50 ml/hr x16 hrs ENTERAL NUTRITION RECOMMENDATIONS: Glucerna 1.2 @65ml/hr x18 hrs + Prosource x1 daily to provide 1170ml, 1404 kcal, 70g pro + 11g pro, 942 free H2O - REC TF CHANGE AND INCREASE TO BETTER MEET EST NEEDS - TF TO BE HELD FOR ONE HR BEFORE AND AFTER DILANTIN MEDS - START @20ML/HR, ADVANCE TOLERATED 15ML/HR Q4-6 HRS TO GOAL - FLUSH PER , HOB OVRE 30 DEGREES ADDITIONAL RECOMMENDATIONS: 1) CALIBRATED BED SCALE W/ ADDED P200 MATTRESS + PUMP 2) ON LASIX, MONITOR LYTES AND HYDRATION STATUS DAILY 3) TF TO RUN A MAX OF 18 HRS/DAY W/ DILANTIN TID PER PHARMACY 4) REC TF CHANGE TO CARB CONTROL FORMULA 5) WOUND CARE: ADD CHAYITO BID + VIT C 250MG DAILY (5) Fever Assessment & Plan: CT A/P with findings Impression: No definite acute process Diverticulosis. No evidence of diverticulitis Extensive edema of the subcutaneous fat. 2 cm focal fluid collection/edema seen within the incision Moderate amount retained dense stool. Correlate with any clinical history of constipation Hiatal hernia. Gastrostomy Left renal parapelvic cysts Apparent prior hysterectomy (6) Decubitus skin ulcer Assessment & Plan: Pt presented on admission with full thickness sacral pressure injury.Base of wound is 20% necrotic , 80% slough. borders are macerated . Mild odor noted. (L)8.4cm x (W) 6.5cm. Periwound skin tone is darker without erythema,induration or elevation in skin temp. Both heels are non -blanchable and both are fluctuant when palpated. Tx.Plan: Clean wound with saline. Apply Therahoney. Aply Moisture Barrier paste periwound. Cover with Optifoam drsg. Change every 3 days and prn. Apply Cavilon Skin BArrier to both heels. Cover each heel with Optifoam drsg. Change every 7 days and prn. APM/DEIRDRE mattress overlay. Reposition at least every 2hours or as tolerated. Off-load heels with pillow. will follow with recs thank you Additional Comments d/c planning Preet Hylton Nov 27, 2018 11:23
[2018-11-27 12:00] VITALS: BP 115/59
--- NOTE | 2018-11-27 12:39 | NUR ---
[employer] SI: RESP FAILURE TRACH/VENT DEPENDENT T. 97.4 HR 77 RR 30 B/P 111/59 AC 14 TV 375 FIO2 30% PEEP 5 H/H 7.5/21.8 AST 191 ALT 115 ALK PHOS 439 NA 126 K 3.4 CA 7.1 IS: POLYMYXIN IV FLAGYL IV MEROPENEM IV VANCO IV LACTULOSE STEP DOWN STATUS
[2018-11-27] MEDS ORDERED: Lactulose 10gm/15ml UDC ORAL SCH (13:00)
--- NOTE | 2018-11-27 13:26 | Pulmonology Progress Note ---
Assessment/Plan Problems: (1) Ventilator dependence (2) Tracheostomy dependence (3) UTI (urinary tract infection) (4) Fever (5) Anoxic brain damage (6) Tongue abnormality (7) Seizure disorder (8) Colon adenocarcinoma (9) HTN (hypertension) (10) Sepsis (11) Diabetes (12) Abnormal LFTs (13) Protein calorie malnutrition (14) Gastrostomy in place (15) senior care resident (16) Decubitus skin ulcer Assessment/Plan Continue ventilatory support/settings reviewed Titrate down FiO2 to keep SaO2 > 90% Optimize pulmonary hygiene/mobilize as tolerated RTC and PRN HHN's Abx per ID, F/U Cx's F/U cards recs Monitor volumes and renal function, getting lasix with PRBC DVT Px: LMWH ENT eval pending FC, continue to discuss GOC Wound care Subjective Allergies: Coded Allergies: Crayfish (Unverified Allergy, Unknown, 11/11/18) Uncoded Allergies: Crawfish (Allergy, Unknown, 11/09/18) Subjective Tm 102.1 VSS stable on vent no sig secretions no distress Getting PRBC Objective Last 24 Hour Vital Signs Date Time Temp Pulse Resp B/P (MAP) Pulse Ox O2 Delivery O2 Flow Rate FiO2 11/27/18 12:00 98.1 81 19 115/59 (77) 100 11/27/18 12:00 30 11/27/18 12:00 Mechanical Ventilator 11/27/18 11:16 81 30 30 11/27/18 08:59 77 111/59 11/27/18 08:56 77 20 30 11/27/18 08:00 Mechanical Ventilator 11/27/18 08:00 79 11/27/18 08:00 30 11/27/18 08:00 97.4 77 19 111/59 (76) 100 11/27/18 07:29 79 21 30 11/27/18 05:19 86 118/76 11/27/18 05:19 118/76 11/27/18 05:08 86 21 30 11/27/18 04:00 Mechanical Ventilator 11/27/18 04:00 30 11/27/18 04:00 97.7 87 26 118/76 (90) 100 11/27/18 03:21 89 23 30 11/27/18 03:20 89 11/27/18 01:31 86 22 30 11/27/18 00:00 84 11/27/18 00:00 30 11/27/18 00:00 97.9 86 26 109/63 (78) 100 11/27/18 00:00 Mechanical Ventilator 11/26/18 23:16 87 25 30 11/26/18 21:22 94 137/73 11/26/18 21:22 137/73 11/26/18 21:19 89 27 30 11/26/18 20:00 93 11/26/18 20:00 Mechanical Ventilator 11/26/18 20:00 30 11/26/18 20:00 98.8 94 26 137/73 (94) 100 11/26/18 19:12 94 26 30 11/26/18 17:00 86 21 30 11/26/18 16:00 Mechanical Ventilator 11/26/18 16:00 99.2 86 20 115/65 (82) 100 11/26/18 16:00 86 11/26/18 16:00 30 11/26/18 14:57 86 24 30 Intake and Output 11/26/18 11/27/18 19:00 07:00 Intake Total 2087.4166 ml 1505 ml Output Total 1100 ml 1100 ml Balance 987.4166 ml 405 ml Intake Free Water 100 ml 140 ml IV Total 1207.4166 ml 650 ml Tube Feeding 780 ml 715 ml Output Urine Total 1100 ml 1100 ml # Bowel Movements 1 1 General Appearance: no acute distress, cachetic HEENT: normocephalic, atraumatic, anicteric, mucous membranes moist, status post trach, other - macroglossia Respiratory/Chest: chest wall non-tender, lungs clear, normal breath sounds Cardiovascular: normal peripheral pulses, normal rate, regular rhythm Abdomen: normal bowel sounds, soft, non tender, no organomegaly, non distended , other - GT Extremities: no cyanosis, no clubbing, other - 1+ LEONORA Microbiology Date/Time Source Procedure Growth Status 11/24/18 15:10 Blood Blood Culture - Preliminary NO GROWTH AFTER 48 HOURS Resulted 11/24/18 13:45 Blood Blood Culture - Preliminary NO GROWTH AFTER 48 HOURS Resulted 11/26/18 09:00 Sputum Gram Stain - Final Resulted 11/26/18 09:00 Sputum Sputum Culture Pending Resulted 11/24/18 14:30 Sputum Induced Gram Stain - Final Resulted 11/24/18 14:30 Sputum Culture - Preliminary A.baumanii Complx - Mdr Pseudomonas Aeruginosa Resulted 11/24/18 13:45 Indwelling Cath Urine Culture - Final NO GROWTH AFTER 48 HOURS Complete Laboratory Tests 11/27/18 03:00: White Blood Count 9.6, Red Blood Count 2.91L, Hemoglobin 7.5L, Hematocrit 21.8L , Mean Corpuscular Volume 75L, Mean Corpuscular Hemoglobin 25.7L, Mean Corpuscular Hemoglobin Concent 34.3, Red Cell Distribution Width 20.7H, Platelet Count 275, Mean Platelet Volume 5.8L, Neutrophils (%) (Auto) , Lymphocytes (%) (Auto) , Monocytes (%) (Auto) , Eosinophils (%) (Auto) , Basophils (%) (Auto) , Sodium Level 126L, Potassium Level 3.4L, Chloride Level 92L, Carbon Dioxide Level 30, Anion Gap 5, Blood Urea Nitrogen 12, Creatinine 0.4L, Estimat Glomerular Filtration Rate , Glucose Level 142H, Calcium Level 7.1L, Total Bilirubin 0.3, Aspartate Amino Transf (AST/SGOT) 191H, Alanine Aminotransferase (ALT/SGPT) 115H, Alkaline Phosphatase 439H, Total Protein 4.8L , Albumin 0.9L, Globulin 3.9, Albumin/Globulin Ratio 0.2L, Vancomycin Level Trough 15.6H Current Medications Medications (Trade) Dose Ordered Sig/Lupe Route PRN Reason Start Time Stop Time Status Last Admin Dose Admin Acetaminophen (Tylenol) 650 mg Q4H PRN GT Mild Pain/Temp > 100.5 11/09/18 05:00 12/09/18 04:59 11/24/18 21:50 Amlodipine Besylate (Norvasc) 10 mg DAILY GT 11/09/18 09:00 12/09/18 08:59 11/26/18 08:49 Bisacodyl (Dulcolax) 10 mg DAILY PRN RECTAL Constipation 11/09/18 05:00 12/09/18 04:59 Calcium Carbonate (Tums) 500 mg EVERY 8 HOURS GT 11/09/18 14:00 12/09/18 08:59 11/27/18 05:19 Chlorhexidine Gluconate (Corazon-Hex 2%) 1 applic DAILY@1999 TOPIC 11/12/18 20:00 12/12/18 19:59 11/26/18 20:57 Dextrose (Dextrose 50%) 25 ml Q30M PRN IV Hypoglycemia 11/09/18 04:45 12/09/18 04:44 Dextrose (Dextrose 50%) 50 ml Q30M PRN IV Hypoglycemia 11/09/18 04:45 12/09/18 04:44 11/09/18 09:09 Enoxaparin Sodium (Lovenox) 40 mg DAILY SUBQ 11/09/18 09:00 12/09/18 08:59 11/27/18 08:57 Famotidine (Pepcid) 20 mg EVERY 12 HOURS GT 11/09/18 21:00 12/09/18 08:59 11/27/18 08:52 Furosemide (Lasix) 40 mg EVERY 12 HOURS GT 11/09/18 09:00 12/09/18 08:59 11/27/18 08:52 Hydralazine HCl (Apresoline) 5 mg EVERY 8 HOURS GT 11/09/18 06:00 12/09/18 05:59 11/27/18 05:19 Insulin Aspart (NovoLOG) Q6HR SUBQ 11/09/18 06:00 12/09/18 05:59 11/27/18 12:38 Insulin Detemir (Levemir) 4 units EVERY 12 HOURS SUBQ 11/16/18 21:00 12/09/18 08:59 11/27/18 08:57 Labetalol HCl (Normodyne) 200 mg Q8HR GT 11/09/18 06:00 12/09/18 05:59 11/27/18 05:19 Lactulose (Cephulac) 10 gm THREE TIMES A DAY GT 11/27/18 18:00 12/27/18 12:59 Levetiracetam (Keppra) 1,500 mg Q12HR GT 11/09/18 09:00 12/09/18 08:59 11/27/18 08:54 Magnesium Hydroxide (Mom) 30 ml DAILY PRN GT Constipation 11/09/18 05:00 12/09/18 04:59 Magnesium Oxide (Mag-Ox 400mg) 400 mg EVERY 8 HOURS GT 11/09/18 14:00 12/09/18 08:59 11/27/18 05:19 Metronidazole 100 ml @ 100 mls/hr Q8HR IVPB 11/26/18 14:00 12/03/18 13:59 11/27/18 05:25 Micafungin Sodium 100 mg/Sodium Chloride 100 ml @ 100 mls/hr Q24H IVPB 11/24/18 14:00 12/01/18 13:59 11/26/18 13:19 Ondansetron HCl (Zofran) 4 mg Q6H PRN GT Nausea & Vomiting 11/09/18 05:00 12/09/18 04:59 Phenobarbital (PHENobarbital) 60 mg BID GT 11/09/18 09:00 12/09/18 08:59 11/27/18 08:54 Phenytoin (Dilantin) 100 mg Q8HR GT 11/09/18 06:00 12/09/18 05:59 11/27/18 05:18 Polyethylene Glycol (Miralax) 17 gm DAILYPRN PRN GT Constipation 11/14/18 10:30 12/12/18 10:29 Polymyxin B Sulfate 669831 units/Dextrose 550 ml @ 550 mls/hr EVERY 12 HOURS IV 11/26/18 21:00 12/03/18 20:59 11/27/18 08:59 Sennosides (Senokot) 8.6 mg EVERY 12 HOURS GT 11/09/18 21:00 12/09/18 08:59 11/27/18 08:53 Valproic Acid (Depakene) 500 mg EVERY 8 HOURS GT 11/09/18 06:00 12/09/18 05:59 11/27/18 05:18 Vancomycin HCl (Vanco rx to dose) 1 ea DAILY PRN MISC Per rx protocol 11/24/18 13:00 12/24/18 12:59 Vancomycin HCl 1 gm/Dextrose 275 ml @ 183.708 mls/hr Q12HR@0400,1600 IVPB 11/25/18 16:00 11/30/18 15:59 11/27/18 05:17 Balbir Dejesus MD Nov 27, 2018 13:26
--- NOTE | 2018-11-27 13:53 | NUR ---
NURSE NOTES: PT getting 1u pRBC, VS stable, no respiratory distress, no signs of transfusion reaction noted. Will continue to monitor PT, and follow through with plan of care. PT family at bedside.
--- NOTE | 2018-11-27 14:11 | General Progress Note ---
Assessment/Plan Problem List: (1) Gram-negative pneumonia ICD Codes: J15.6 - Pneumonia due to other Gram-negative bacteria SNOMED: 109072085 (2) MRSA (methicillin resistant staphylococcus aureus) pneumonia ICD Codes: J15.212 - Pneumonia due to Methicillin resistant Staphylococcus aureus SNOMED: 321101195799024 (3) Fever ICD Codes: R50.9 - Fever, unspecified SNOMED: 072026947 (4) UTI (urinary tract infection) ICD Codes: N39.0 - Urinary tract infection, site not specified SNOMED: 03059328 (5) Tracheostomy dependence ICD Codes: Z93.0 - Tracheostomy status SNOMED: 706202142 (6) Ventilator dependence ICD Codes: Z99.11 - Dependence on respirator [ventilator] status SNOMED: 714990441 (7) Protein calorie malnutrition ICD Codes: E46 - Unspecified protein-calorie malnutrition SNOMED: 098380839 (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 SNOMED: 88505800 (9) Drug rash ICD Codes: L27.0 - Generalized skin eruption due to drugs and medicaments taken internally SNOMED: 11879367 (10) Line sepsis ICD Codes: T85.79XA - Infection and inflammatory reaction due to other internal prosthetic devices, implants and grafts, initial encounter; A41.9 - Sepsis, unspecified organism SNOMED: 34129035, 719969565 (11) Bacteremia ICD Codes: R78.81 - Bacteremia SNOMED: 4030295 (12) Hyponatremia ICD Codes: E87.1 - Hypo-osmolality and hyponatremia SNOMED: 12905878 Status: stable Assessment/Plan: 78-year-old female who is trach dependent who was brought in by custodial for sepsis and found to have UTI and bacteremia. 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 fungal uti vs colonization ID consult appreciate Rec Vancomycin and Meropenem started 11/16 ( Zosyn stopped) , fungal coverage with Diflucan added 11/18. Repeat sputum cultures with RAULTELLA PLANTICOA and PROVIDENCIA STUARTI resistant to most antibiotics Developed morbilliform rash on meropenem, this was stopped and rash is better, has persistent fevers. Started Polymyxin and flagyl 11/21. Added vancomycin and micafungin on 11/24. Fever curve better. Will discuss with ID new sputum cultures. picc cultures, no growth so far. repeat sputum cultures Organism 1 A.BAUMANII COMPLX - MDR GROWTH: 4+ Organism 2 PSEUDOMONAS AERUGINOSA ACIBCX-MDR PSE AERUGI M.I.C. RX M.I.C. RX --------- --- --------- --- CEFTAZIDIME >=64 R 2 S CEFTRIAXONE >=64 R CEFEPIME >=64 R <=1 S CIPROFLOXACIN >=4 R <=0.25 S GENTAMICIN >=16 R <=1 S LEVOFLOXACIN >=8 R 0.5 S IMIPENEM >=16 R >=16 R TRIMETHOPRIM/SULFA <=20 S AMIKACIN <=2 S PIPERACILLIN/TAZOBACTAM 8 S Discussed with daughter at bedside. CT abdomen pelvis shows no acute process Removed PICC and place new line 11/13/18 Echo to eval for vegetation negative Chest x-ray reviewed, no change #hyponatremia- hypovolemic currently getting blood. Will repeat sodium levels. Avoid overcorrection # Transaminitis - worsening, meds vs passive congestion - trend lft's - GI consult, appreciate recs - ab us: reviewed - hep panel negative #Elevated troponin secondary to sepsis versus ACS Cardiology consult, appreciate recs Medications per cardiology #Microcytic anemia- mixed anemia of chronic inflammation and iron deficiency. Start ferrous sulfate TID , transfused 1 uprbc 11/27 #Hypertension- improved Continue current medications, hydralazine as needed hypertension #Vent dependent Pulmonary consult, appreciate recs Vent management per pulmonary #Hypokalemia Replace, continue to monitor # Chronic tongue wound Supportive care On examination the patient has a sharp lower incisor present that is likely the culprit for the tongue laceration when she was intubated in the prior hospitalization at [facility] OMFS consultation Dr. Benavides completed ( no note left ) and I spoke with him over the phone after the visit. He does not recommend any surgery. ONLY bite block MOLT if available to decompress the tongue and get the remainder teeth out of the tongue way. Keep moisture in the lips and tongue. ENT consult difficult to obtain- pending # History of mood disorder Seen by psychiatry and on Depakote. Level was checked # Seizure history - Discussed with Dr. Eric who knew the patient from [facility] and confirmed that she did have seizure activity and was on multiple AED regimen. - Will continue Depakote ( 28 level ) and (Phenytoin 4.3 ) - no active seizure activity at this time. Keep current dose. - Both Dr. Eric and Mariana not available to come to [facility] for consult and not acute need at this time. #Diabetes Mellitus - glucose noted in the 90-110's - Decreased Levemir to 4 units q 12 hours # Disposition - SNF when cleared by ID. Full code Sit with family and discuss goals of care prognosis guarded timing of this note may not reflect time of encounter. I spent 40 minutes on this encounter. Great than 50 percent spent of care planning. Subjective Date patient seen: Nov 27, 2018 ROS Limited/Unobtainable: Yes Allergies: Coded Allergies: Crayfish (Unverified Allergy, Unknown, 11/11/18) Uncoded Allergies: Crawfish (Allergy, Unknown, 11/09/18) Subjective obtunded on vent, Fever curve better. Tmax 99.1 Ct abdomen pelvis done for persistent fevers no acute pathology On broad spectrum antibiotics. Added micafungin and vancomycin 11/25/18 per ID fevers are better Unable to get ENT consult wbc trending down and normal Now with hyponatremia Worsening Anemia picc culture no growth repeat sputum cultures: Organism 1 A.BAUMANII COMPLX - MDR GROWTH: 4+ Organism 2 PSEUDOMONAS AERUGINOSA ACIBCX-MDR PSE AERUGI M.I.C. RX M.I.C. RX --------- --- --------- --- CEFTAZIDIME >=64 R 2 S CEFTRIAXONE >=64 R CEFEPIME >=64 R <=1 S CIPROFLOXACIN >=4 R <=0.25 S GENTAMICIN >=16 R <=1 S LEVOFLOXACIN >=8 R 0.5 S IMIPENEM >=16 R >=16 R TRIMETHOPRIM/SULFA <=20 S AMIKACIN <=2 S PIPERACILLIN/TAZOBACTAM 8 S Objective Last 24 Hour Vital Signs Date Time Temp Pulse Resp B/P (MAP) Pulse Ox O2 Delivery O2 Flow Rate FiO2 11/27/18 12:00 98.1 81 19 115/59 (77) 100 11/27/18 12:00 30 11/27/18 12:00 Mechanical Ventilator 11/27/18 12:00 80 11/27/18 11:16 81 30 30 11/27/18 08:59 77 111/59 11/27/18 08:56 77 20 30 11/27/18 08:00 Mechanical Ventilator 11/27/18 08:00 79 11/27/18 08:00 30 11/27/18 08:00 97.4 77 19 111/59 (76) 100 11/27/18 07:29 79 21 30 11/27/18 05:19 86 118/76 11/27/18 05:19 118/76 11/27/18 05:08 86 21 30 11/27/18 04:00 Mechanical Ventilator 11/27/18 04:00 30 11/27/18 04:00 97.7 87 26 118/76 (90) 100 11/27/18 03:21 89 23 30 11/27/18 03:20 89 11/27/18 01:31 86 22 30 11/27/18 00:00 84 11/27/18 00:00 30 11/27/18 00:00 97.9 86 26 109/63 (78) 100 11/27/18 00:00 Mechanical Ventilator 11/26/18 23:16 87 25 30 11/26/18 21:22 94 137/73 11/26/18 21:22 137/73 11/26/18 21:19 89 27 30 11/26/18 20:00 93 11/26/18 20:00 Mechanical Ventilator 11/26/18 20:00 30 11/26/18 20:00 98.8 94 26 137/73 (94) 100 11/26/18 19:12 94 26 30 11/26/18 17:00 86 21 30 11/26/18 16:00 Mechanical Ventilator 11/26/18 16:00 99.2 86 20 115/65 (82) 100 11/26/18 16:00 86 11/26/18 16:00 30 11/26/18 14:57 86 24 30 Intake and Output 11/26/18 11/27/18 19:00 07:00 Intake Total 2087.4166 ml 1505 ml Output Total 1100 ml 1100 ml Balance 987.4166 ml 405 ml Intake Free Water 100 ml 140 ml IV Total 1207.4166 ml 650 ml Tube Feeding 780 ml 715 ml Output Urine Total 1100 ml 1100 ml # Bowel Movements 1 1 Laboratory Tests 11/27/18 03:00: White Blood Count 9.6, Red Blood Count 2.91L, Hemoglobin 7.5L, Hematocrit 21.8L , Mean Corpuscular Volume 75L, Mean Corpuscular Hemoglobin 25.7L, Mean Corpuscular Hemoglobin Concent 34.3, Red Cell Distribution Width 20.7H, Platelet Count 275, Mean Platelet Volume 5.8L, Neutrophils (%) (Auto) , Lymphocytes (%) (Auto) , Monocytes (%) (Auto) , Eosinophils (%) (Auto) , Basophils (%) (Auto) , Sodium Level 126L, Potassium Level 3.4L, Chloride Level 92L, Carbon Dioxide Level 30, Anion Gap 5, Blood Urea Nitrogen 12, Creatinine 0.4L, Estimat Glomerular Filtration Rate , Glucose Level 142H, Calcium Level 7.1L, Total Bilirubin 0.3, Aspartate Amino Transf (AST/SGOT) 191H, Alanine Aminotransferase (ALT/SGPT) 115H, Alkaline Phosphatase 439H, Total Protein 4.8L , Albumin 0.9L, Globulin 3.9, Albumin/Globulin Ratio 0.2L, Vancomycin Level Trough 15.6H Height (Feet): 5 Height (Inches): 8.00 Weight (Pounds): 210 Objective General Appearance: no apparent distress, other - unresponsive on vent EENT: PERRL/EOMI, other - enlarged tongue protruding, lower lip severely swollen Neck: supple Cardiovascular: normal rate, regular rhythm Respiratory/Chest: lungs clear Abdomen: soft Neurologic: unresponsive Skin: Morbilliform rash to bilateral upper extremities and thighs Neftaly Walters M.D. Nov 27, 2018 14:11
--- NOTE | 2018-11-27 14:44 | NUR ---
RD ASSESSMENT & RECOMMENDATIONS SEE CARE ACTIVITY FOR COMPLETE ASSESSMENT DAILY ESTIMATED NEEDS: Needs based on Critical care, sepsis, wound 60kg adj 22-30 kcals/kg [id number] total kcals 1.25-2 g protein/kg 75-120 g total protein Fluid per MD, on lasix mL/kg total fluid mLs NUTRITION DIAGNOSIS: * Swallowing difficulty r/t resp status as evidenced by pt is vent dep via trach and PEG dep. * Increased kcal and pro needs r/t wound healing and sepsis as evidenced by pt w/ sacral and R heel wounds, febrile (Tmax 99.5). CURRENT TF:Glucerna 1.2 @65 x18 hrs + Prosource x1 ENTERAL NUTRITION RECOMMENDATIONS: Glucerna 1.2 @ 65ml/hr x18 hrs + Prosource x1 daily to provide 1170ml, 1404 kcal, 70g pro + 11g pro, 942 free H2O - Maintain current TF at goal as tolerated - TF TO BE HELD FOR ONE HR BEFORE AND AFTER DILANTIN MEDS - FLUSH PER MD, HOB OVER 30 DEGREES ADDITIONAL RECOMMENDATIONS: 1) CALIBRATED BED SCALE W/ ADDED P200 MATTRESS + PUMP 2) ON LASIX, MONITOR LYTES AND HYDRATION STATUS DAILY -> Na trending down, monitor need for free fluids restriction 3) TF TO RUN A MAX OF 18 HRS/DAY W/ DILANTIN TID PER PHARMACY 4) REC MAINTAIN CARB CONTROL FORMULA -> h/o DM, on short + long acting insulin 5) WOUND CARE: ADD CHAYITO BID + VIT C 250MG DAILY
--- NOTE | 2018-11-27 14:50 | NUR ---
NURSE NOTES: Spoke with Pharmacist, advised to infused 1 antibiotic at a time due to pRBC transfusion via PICC and lack of information on clinical pharmacology. Will continue with plan of care for PT.
--- NOTE | 2018-11-27 15:47 | Hematology/Onc Progress Note ---
Assessment/Plan Assessment/Plan # Anemia of chronic disease due to underlying chronic medical issues, multifactorial --> Anemia workup has been reviewed and cw acd --> No evidence of hemolysis is noted, peripheral smear has been reviewed. --> Hgb goal >7. Transfuse prn. --> hgb trend 9.1-->8.9-->9-->8.9-->8.9->7.8->8.7-->9-->8-->7.5 --> Epogen or iron indication prn --> Medications have been reviewed --> low threshold for gi evaluation and occult is negative --> bone marrow biopsy is not indicated given the other more likely causes # Leukocytosis iwth Sepsis secondary to UTI, GPC Staph Epidermidis bacteremia, Line associated infection - patient arrived to the Hospital with PICC --> as per ID consult appreciate Rec --> Continue antibiotics per ID: Continue Zosyn and vancomycin, anti fungal added--> kaykay/vanc, diflucan-->flagyl, vanc, polymyxin --> imaging noted # Thrombocytosis is likely due to underlying reactive process --> if doesn't improve send off jak2 --> plt count 641k-->402k-->344-->275k # Transaminitis --> trend lft's --> GI consult, apprec recs --> ab us: reviewed # Elevated troponin secondary to sepsis versus ACS --> as per Cardiology consult, appreciate recs --> now better # Hypertension- improved --> sbp goal <150 # Vent dependent with trach --> as per Pulmonary recs # Hypokalemia # Dysphagia s/p gtube feeds # CHf hx with hyponatremia --> 1l fluid restriction # Dvt ppx with lovenox (ok to continue given occult neg) The timing of this note does not necessarily reflect the time of the patient was seen. GREATLY APPRECIATE CONSULTATION. Subjective Constitutional: Denies: no symptoms, chills, fever, malaise, weakness, other HEENT: Denies: no symptoms, eye pain, blurred vision, tearing, double vision, ear pain, ear discharge, nose pain, nose congestion, throat pain, throat swelling, mouth pain, mouth swelling, other Cardiovascular: Denies: no symptoms, chest pain, edema, irregular heart rate, lightheadedness, palpitations, syncope, other Respiratory: Denies: no symptoms, cough, shortness of breath, SOB with excertion, SOB at rest, sputum, wheezing, other Gastrointestinal/Abdominal: Denies: no symptoms, abdomen distended, abdominal pain, black stools, tarry stools, blood in stool, constipated, diarrhea, difficulty swallowing, nausea, poor appetite, poor fluid intake, rectal bleeding , vomiting, other Neurologic/Psychiatric: Denies: no symptoms, anxiety, depressed, emotional problems, headache, numbness, paresthesia, pre-existing deficit, seizure, tingling, tremors, weakness, other Endocrine: Denies: no symptoms, excessive sweating, flushing, intolerance to cold, intolerance to heat, increased hunger, increased thirst, increased urine, unexplained weight gain, unexplained weight loss, other Hematologic/Lymphatic: Denies: no symptoms, anemia, easy bleeding, easy bruising, adenopathy, other Allergies: Coded Allergies: Crayfish (Unverified Allergy, Unknown, 11/11/18) Uncoded Allergies: Crawfish (Allergy, Unknown, 11/09/18) Subjective 11/14: no events to report, labs relatively stable, hgb 8.9, on vent 11/15: no bleeding, no chills, labs reviewed, no major changes 11/16: cxr-->bilateral interstitial edema, vs stable, on abx, on vent, contact isolation 11/17: labs reviewed, on abx, vs stable, on vent, no distress 11/18: remains on gtube feeds, is on vent, on kaykay/vanc 11/20: no events, no bleeding, kaykay, vanc, diflucan, no f/c 11/21: remains on vent, gtube feeds, no major changes, no bleeding 11/22: ct abdomen pelvis w/contrast reviewed, vs stable, no acute events, labs reviewed, remains intubated, low grade fever 11/23: reviewed meds, abx have been changed, remains altered currently 11/24: labs reviewed, vs stable, med reviewed, no sob, no distress, on vent 11/25: remains on vent, no major events, on glucerna, fluid restriction 11/27: signed consent today, no f/c, no night sweats Objective Objective Current Medications Medications (Trade) Dose Ordered Sig/Lupe Route PRN Reason Start Time Stop Time Status Last Admin Dose Admin Acetaminophen (Tylenol) 650 mg Q4H PRN GT Mild Pain/Temp > 100.5 11/09/18 05:00 12/09/18 04:59 11/24/18 21:50 Amlodipine Besylate (Norvasc) 10 mg DAILY GT 11/09/18 09:00 12/09/18 08:59 11/26/18 08:49 Bisacodyl (Dulcolax) 10 mg DAILY PRN RECTAL Constipation 11/09/18 05:00 12/09/18 04:59 Calcium Carbonate (Tums) 500 mg EVERY 8 HOURS GT 11/09/18 14:00 12/09/18 08:59 11/27/18 14:44 Chlorhexidine Gluconate (Corazon-Hex 2%) 1 applic DAILY@1999 TOPIC 11/12/18 20:00 12/12/18 19:59 11/26/18 20:57 Dextrose (Dextrose 50%) 25 ml Q30M PRN IV Hypoglycemia 11/09/18 04:45 12/09/18 04:44 Dextrose (Dextrose 50%) 50 ml Q30M PRN IV Hypoglycemia 11/09/18 04:45 12/09/18 04:44 11/09/18 09:09 Enoxaparin Sodium (Lovenox) 40 mg DAILY SUBQ 11/09/18 09:00 12/09/18 08:59 11/27/18 08:57 Famotidine (Pepcid) 20 mg EVERY 12 HOURS GT 11/09/18 21:00 12/09/18 08:59 11/27/18 08:52 Furosemide (Lasix) 40 mg EVERY 12 HOURS GT 11/09/18 09:00 12/09/18 08:59 11/27/18 08:52 Hydralazine HCl (Apresoline) 5 mg EVERY 8 HOURS GT 11/09/18 06:00 12/09/18 05:59 11/27/18 14:44 Insulin Aspart (NovoLOG) Q6HR SUBQ 11/09/18 06:00 12/09/18 05:59 11/27/18 12:38 Insulin Detemir (Levemir) 4 units EVERY 12 HOURS SUBQ 11/16/18 21:00 12/09/18 08:59 11/27/18 08:57 Labetalol HCl (Normodyne) 200 mg Q8HR GT 11/09/18 06:00 12/09/18 05:59 11/27/18 14:43 Lactulose (Cephulac) 10 gm THREE TIMES A DAY GT 11/27/18 18:00 12/27/18 12:59 Levetiracetam (Keppra) 1,500 mg Q12HR GT 11/09/18 09:00 12/09/18 08:59 11/27/18 08:54 Magnesium Hydroxide (Mom) 30 ml DAILY PRN GT Constipation 11/09/18 05:00 12/09/18 04:59 Magnesium Oxide (Mag-Ox 400mg) 400 mg EVERY 8 HOURS GT 11/09/18 14:00 12/09/18 08:59 11/27/18 14:44 Metronidazole 100 ml @ 100 mls/hr Q8HR IVPB 11/26/18 14:00 12/03/18 13:59 11/27/18 05:25 Micafungin Sodium 100 mg/Sodium Chloride 100 ml @ 100 mls/hr Q24H IVPB 11/24/18 14:00 12/01/18 13:59 11/27/18 15:01 Ondansetron HCl (Zofran) 4 mg Q6H PRN GT Nausea & Vomiting 11/09/18 05:00 12/09/18 04:59 Phenobarbital (PHENobarbital) 60 mg BID GT 11/09/18 09:00 12/09/18 08:59 11/27/18 08:54 Phenytoin (Dilantin) 100 mg Q8HR GT 11/09/18 06:00 12/09/18 05:59 11/27/18 14:43 Polyethylene Glycol (Miralax) 17 gm DAILYPRN PRN GT Constipation 11/14/18 10:30 12/12/18 10:29 Polymyxin B Sulfate 386995 units/Dextrose 550 ml @ 550 mls/hr EVERY 12 HOURS IV 11/26/18 21:00 12/03/18 20:59 11/27/18 08:59 Sennosides (Senokot) 8.6 mg EVERY 12 HOURS GT 11/09/18 21:00 12/09/18 08:59 11/27/18 08:53 Valproic Acid (Depakene) 500 mg EVERY 8 HOURS GT 11/09/18 06:00 12/09/18 05:59 11/27/18 14:44 Vancomycin HCl (Vanco rx to dose) 1 ea DAILY PRN MISC Per rx protocol 11/24/18 13:00 12/24/18 12:59 Vancomycin HCl 1 gm/Dextrose 275 ml @ 183.708 mls/hr Q12HR@0400,1600 IVPB 11/25/18 16:00 11/30/18 15:59 11/27/18 05:17 Last 24 Hour Vital Signs Date Time Temp Pulse Resp B/P (MAP) Pulse Ox O2 Delivery O2 Flow Rate FiO2 11/27/18 15:28 88 25 30 11/27/18 14:44 152/74 11/27/18 14:43 88 152/74 11/27/18 13:00 78 32 30 11/27/18 12:00 98.1 81 19 115/59 (77) 100 11/27/18 12:00 30 11/27/18 12:00 Mechanical Ventilator 11/27/18 12:00 80 11/27/18 11:16 81 30 30 11/27/18 08:59 77 111/59 11/27/18 08:56 77 20 30 11/27/18 08:00 Mechanical Ventilator 11/27/18 08:00 79 11/27/18 08:00 30 11/27/18 08:00 97.4 77 19 111/59 (76) 100 11/27/18 07:29 79 21 30 11/27/18 05:19 86 118/76 11/27/18 05:19 118/76 11/27/18 05:08 86 21 30 11/27/18 04:00 Mechanical Ventilator 11/27/18 04:00 30 11/27/18 04:00 97.7 87 26 118/76 (90) 100 11/27/18 03:21 89 23 30 11/27/18 03:20 89 11/27/18 01:31 86 22 30 11/27/18 00:00 84 11/27/18 00:00 30 11/27/18 00:00 97.9 86 26 109/63 (78) 100 11/27/18 00:00 Mechanical Ventilator 11/26/18 23:16 87 25 30 11/26/18 21:22 94 137/73 11/26/18 21:22 137/73 11/26/18 21:19 89 27 30 11/26/18 20:00 93 11/26/18 20:00 Mechanical Ventilator 11/26/18 20:00 30 11/26/18 20:00 98.8 94 26 137/73 (94) 100 11/26/18 19:12 94 26 30 11/26/18 17:00 86 21 30 11/26/18 16:00 Mechanical Ventilator 11/26/18 16:00 99.2 86 20 115/65 (82) 100 11/26/18 16:00 86 11/26/18 16:00 30 11/26/18 14:57 86 24 30 11/26/18 13:18 91 112/69 11/26/18 13:18 112/69 11/26/18 12:49 91 25 30 11/26/18 12:00 Mechanical Ventilator 11/26/18 12:00 96.6 85 20 112/69 (83) 97 11/26/18 12:00 30 11/26/18 12:00 87 11/26/18 10:46 85 23 30 11/26/18 08:49 86 116/64 11/26/18 08:37 86 20 30 11/26/18 08:00 Mechanical Ventilator 11/26/18 08:00 99.5 85 20 116/64 (81) 95 11/26/18 08:00 85 11/26/18 08:00 30 11/26/18 06:32 88 25 30 11/26/18 06:11 96 146/63 11/26/18 06:11 146/63 11/26/18 04:49 95 26 30 11/26/18 04:00 Mechanical Ventilator 11/26/18 04:00 93 11/26/18 04:00 30 11/26/18 04:00 98.1 94 24 127/72 (90) 100 11/26/18 02:50 93 21 30 11/26/18 00:57 90 22 30 11/26/18 00:00 Mechanical Ventilator 11/26/18 00:00 99.1 90 21 124/64 (84) 100 11/25/18 23:38 90 11/25/18 22:51 93 24 30 11/25/18 22:05 99 162/71 11/25/18 22:05 162/71 11/25/18 20:49 96 24 30 11/25/18 20:00 Mechanical Ventilator 11/25/18 20:00 100.1 97 22 149/68 (95) 100 11/25/18 20:00 30 11/25/18 19:43 96 11/25/18 18:50 93 27 30 11/25/18 17:07 93 24 100 Mechanical Ventilator 30 11/25/18 17:05 93 24 30 11/25/18 16:00 91 11/25/18 16:00 30 11/25/18 16:00 Mechanical Ventilator 11/25/18 16:00 99.1 92 18 105/73 (84) 100 Intake and Output 11/26/18 11/27/18 19:00 07:00 Intake Total 2087.4166 ml 1505 ml Output Total 1100 ml 1100 ml Balance 987.4166 ml 405 ml Intake Free Water 100 ml 140 ml IV Total 1207.4166 ml 650 ml Tube Feeding 780 ml 715 ml Output Urine Total 1100 ml 1100 ml # Bowel Movements 1 1 Labs Test 11/25/18 03:00 11/25/18 15:00 11/26/18 03:10 11/27/18 03:00 White Blood Count 11.6 K/UL (4.8-10.8) 9.1 K/UL (4.8-10.8) 9.6 K/UL (4.8-10.8) Red Blood Count 3.13 M/UL (4.20-5.40) 2.98 M/UL (4.20-5.40) 2.91 M/UL (4.20-5.40) Hemoglobin 8.0 G/DL (12.0-16.0) 7.6 G/DL (12.0-16.0) 7.5 G/DL (12.0-16.0) Hematocrit 24.0 % (37.0-47.0) 22.7 % (37.0-47.0) 21.8 % (37.0-47.0) Mean Corpuscular Volume 77 FL (80-99) 76 FL (80-99) 75 FL (80-99) Mean Corpuscular Hemoglobin 25.5 PG (27.0-31.0) 25.6 PG (27.0-31.0) 25.7 PG (27.0-31.0) Mean Corpuscular Hemoglobin Concent 33.3 G/DL (32.0-36.0) 33.6 G/DL (32.0-36.0) 34.3 G/DL (32.0-36.0) Red Cell Distribution Width 21.5 % (11.6-14.8) 21.4 % (11.6-14.8) 20.7 % (11.6-14.8) Platelet Count 344 K/UL (150-450) 310 K/UL (150-450) 275 K/UL (150-450) Mean Platelet Volume 5.4 FL (6.5-10.1) 5.3 FL (6.5-10.1) 5.8 FL (6.5-10.1) Neutrophils (%) (Auto) % (45.0-75.0) % (45.0-75.0) % (45.0-75.0) Lymphocytes (%) (Auto) % (20.0-45.0) % (20.0-45.0) % (20.0-45.0) Monocytes (%) (Auto) % (1.0-10.0) % (1.0-10.0) % (1.0-10.0) Eosinophils (%) (Auto) % (0.0-3.0) % (0.0-3.0) % (0.0-3.0) Basophils (%) (Auto) % (0.0-2.0) % (0.0-2.0) % (0.0-2.0) Differential Total Cells Counted 100 Neutrophils % (Manual) 88 % (45-75) Lymphocytes % (Manual) 8 % (20-45) Monocytes % (Manual) 1 % (1-10) Eosinophils % (Manual) 3 % (0-3) Basophils % (Manual) 0 % (0-2) Band Neutrophils 0 % (0-8) Platelet Estimate Adequate Platelet Morphology Normal Hypochromasia 2+ Anisocytosis 3+ Microcytosis 1+ Spherocytes 1+ Sodium Level 132 MMOL/L (136-145) 127 MMOL/L (136-145) 126 MMOL/L (136-145) Potassium Level 3.7 MMOL/L (3.5-5.1) 3.6 MMOL/L (3.5-5.1) 3.4 MMOL/L (3.5-5.1) Chloride Level 95 MMOL/L (98-107) 93 MMOL/L (98-107) 92 MMOL/L (98-107) Carbon Dioxide Level 30 MMOL/L (21-32) 30 MMOL/L (21-32) 30 MMOL/L (21-32) Anion Gap 7 mmol/L (5-15) 4 mmol/L (5-15) 5 mmol/L (5-15) Blood Urea Nitrogen 14 mg/dL (7-18) 13 mg/dL (7-18) 12 mg/dL (7-18) Creatinine 0.3 MG/DL (0.55-1.30) 0.4 MG/DL (0.55-1.30) 0.4 MG/DL (0.55-1.30) Estimat Glomerular Filtration Rate mL/min (>60) mL/min (>60) mL/min (>60) Glucose Level 111 MG/DL (74-106) 118 MG/DL (74-106) 142 MG/DL (74-106) Calcium Level 7.9 MG/DL (8.5-10.1) 7.7 MG/DL (8.5-10.1) 7.1 MG/DL (8.5-10.1) Total Bilirubin 0.3 MG/DL (0.2-1.0) 0.3 MG/DL (0.2-1.0) Aspartate Amino Transf (AST/SGOT) 127 U/L (15-37) 191 U/L (15-37) Alanine Aminotransferase (ALT/SGPT) 87 U/L (12-78) 115 U/L (12-78) Alkaline Phosphatase 369 U/L (46-116) 439 U/L (46-116) Total Protein 5.4 G/DL (6.4-8.2) 4.8 G/DL (6.4-8.2) Albumin 1.1 G/DL (3.4-5.0) 0.9 G/DL (3.4-5.0) Globulin 4.3 g/dL 3.9 g/dL Albumin/Globulin Ratio 0.3 (1.0-2.7) 0.2 (1.0-2.7) Vancomycin Level Trough 10.1 ug/mL (5.0-12.0) 15.6 ug/mL (5.0-12.0) Height (Feet): 5 Height (Inches): 8.00 Weight (Pounds): 210 Objective Physical Exam: Vitals: reviewed Gen: NAD HEENT: normocephalic, atraumatic Neck: non-tender, normal alignment ++ vent/trach Respiratory: normal breath sounds bilaterally CV: normal peripheral pulses, rrr Abdomen: normal bowel sounds, soft, nontender +gtube Extremities: 1-2+ edema, normal range of motion Yonathan Hernandez MD Nov 27, 2018 15:47
[2018-11-27 16:00] VITALS: BP 104/62
[2018-11-27] MEDS: Lactulose 10gm/15ml UDC GT SCH (17:49)
--- NOTE | 2018-11-27 18:00 | NUR ---
NURSE NOTES: PT cleaned, linens changed; 1 BM loose/soft, dark brown. CN made aware. VS stable, no respiratory distress noted during cleaning PT. Will continue to monitor PT and follow plan of care for PT.
--- NOTE | 2018-11-27 19:35 | NUR ---
HAND-OFF: Report given to CHARLEE Calderon. No respiratory distress noted during hand off, VS stable.
--- NOTE | 2018-11-27 19:40 | NUR ---
NURSE NOTES: Received report and pt from CHARLEE Yeh. Observed pt lying in the bed. Obtunded but open eyes with deep stimulation. Trach to vent, sh8, AC 14, TV 375, FIO2 30%, PEEP 5. Gtube intact and running Glucerna 1.2 running at 65cc/hr. F/C intact and draining well. PICC on KAITLYNN, TKO. generalized edema noted. Edema on tongue noted. Left ear tear noted, covered with optifoam. Full thickness wound on sacral. skin tear on left thigh noted. On P200 mattress. Bed in the lowest position. Side rails up x3, padded. Will continue to monitor.
[2018-11-27 20:00] VITALS: BP 125/68
[2018-11-27] MEDS: Dyna-Hex 2% Top Sol 2oz TOPIC SCH (20:45)
[2018-11-27 21:40] LABS: ANION GAP 4 mmol/L (5-15); BLOOD UREA NITROGEN 13 mg/dL (7-18); CALCIUM 7.6 MG/DL (8.5-10.1); CARBON DIOXIDE 32 MMOL/L (21-32); CHLORIDE 92 MMOL/L (98-107); CREATININE 0.3 MG/DL (0.55-1.30); POTASSIUM 3.7 MMOL/L (3.5-5.1); SODIUM 128 MMOL/L (136-145)
--- NOTE | 2018-11-27 22:00 | NUR ---
NURSE NOTES: Pt's resting in bed, in no acute distress. Vs stable. will continue to monitor.
[2018-11-28] VITALS: BP 130/70
[2018-11-28 04:00] VITALS: BP 141/73
--- NOTE | 2018-11-28 04:00 | NUR ---
NURSE NOTES: Pt's resting in bed , obtunded, in no acute distress. VS stable. Will continue to monitor.
[2018-11-28 04:47] LABS: BASOPHILS % (AUTO) 0.7 % (0.0-2.0); EOSINOPHILS % (AUTO) 5.4 % (0.0-3.0); HEMATOCRIT 26.7 % (37.0-47.0); HEMOGLOBIN 9.3 G/DL (12.0-16.0); LYMPHOCYTES % (AUTO) 10.3 % (20.0-45.0); MEAN CORPUSCULAR VOLUME 76 FL (80-99); MONOCYTES % (AUTO) 5.7 % (1.0-10.0); PLATELET COUNT 280 K/UL (150-450); RED BLOOD COUNT 3.54 M/UL (4.20-5.40); RED CELL DISTRIBUTION WIDTH 19.8 % (11.6-14.8); WHITE BLOOD COUNT 10.2 K/UL (4.8-10.8)
[2018-11-28] MEDS: Vancomycin 1gm/D5W 275ml IVPB SCH ×2 (04:50)
[2018-11-28] MEDS: Magnesium Oxide 400mg tab GT SCH ×3 (04:51→21:03)
[2018-11-28 04:59] LABS: ALANINE AMINOTRANSFERASE 118 U/L (12-78); ALBUMIN/GLOBULIN RATIO 0.2 (1.0-2.7); ALKALINE PHOSPHATASE 544 U/L (46-116); ANION GAP 4 mmol/L (5-15); ASPARTATE AMINO TRANSFERASE 186 U/L (15-37); BILIRUBIN,TOTAL 0.3 MG/DL (0.2-1.0); BLOOD UREA NITROGEN 13 mg/dL (7-18); CALCIUM 7.8 MG/DL (8.5-10.1); CARBON DIOXIDE 32 MMOL/L (21-32); CHLORIDE 90 MMOL/L (98-107); CREATININE 0.4 MG/DL (0.55-1.30); POTASSIUM 3.6 MMOL/L (3.5-5.1); SODIUM 126 MMOL/L (136-145)
[2018-11-28] MEDS: NovoLOG Insulin Flexpen SUBQ SCH ×5 (06:00→23:00)
[2018-11-28] MEDS: HydrALAZINE 10mg Tab GT SCH ×3 (06:04→22:00)
[2018-11-28] MEDS: Tums 500mg GT SCH ×3 (06:05→21:03)
[2018-11-28] MEDS: Labetalol 200mg tab GT SCH ×3 (06:05→21:06)
[2018-11-28] MEDS: Valproic Acid 250mg/5ml Liquid GT SCH ×3 (06:08→21:04)
[2018-11-28] MEDS: Phenytoin Susp 100mg/4ml GT SCH ×3 (06:08→21:03)
--- NOTE | 2018-11-28 07:15 | NUR ---
NURSE NOTES: Received bedside report from Kvng RN. Pt. in bed, obtunded. No sign of distress. On mech. vent with setting AC14/VT375/FiO2 of 30%/P5. No grimacing noted. F/C in placed patent/intact draining yellow colored urine. HOB elevated at all times at least 30-45 deg. On GTF Glucerna 1.2 @65cc/hr. patent/intact. Tolerating well. PICC line at right upper arm with 2 lumen in placed patent/intact. Bed in low position, locked. Call light within reach. Will cont. to monitor.
--- NOTE | 2018-11-28 07:15 | NUR ---
HAND-OFF: Report given to CHARLEE Vu.
[2018-11-28 08:00] VITALS: BP 126/58
[2018-11-28] MEDS: Lactulose 10gm/15ml UDC GT SCH ×3 (08:24→18:37)
[2018-11-28] MEDS: levETIRAcetam 500mg/5ml Liquid GT SCH ×2 (08:24→20:03)
[2018-11-28] MEDS: Sennosides 8.6mg tab GT SCH ×2 (08:25→20:03)
[2018-11-28] MEDS: Furosemide 40mg tab GT SCH (08:25)
[2018-11-28] MEDS: Polymyxin B Sulfate 500,000 UNITS in D5W 500ml 550 ML IV SCH ×2 (08:25→20:02)
[2018-11-28] MEDS: Levemir Flexpen SUBQ SCH ×2 (08:27→20:05)
[2018-11-28] MEDS: PHENobarbital Elixir 30mg/7.5ml GT SCH ×2 (08:30→18:38)
[2018-11-28] MEDS: Enoxaparin 40mg Inj SUBQ SCH (08:32)
--- NOTE | 2018-11-28 08:32 | General Progress Note ---
Assessment/Plan Status: stable Assessment/Plan: (1) Abnormal LFTs ICD Codes: R94.5 - Abnormal results of liver function studies SNOMED: 510664679 (2) Decubitus skin ulcer ICD Codes: L89.90 - Pressure ulcer of unspecified site, unspecified stage SNOMED: 908962631 (3) Protein calorie malnutrition ICD Codes: E46 - Unspecified protein-calorie malnutrition SNOMED: 525978556 (4) Colon adenocarcinoma ICD Codes: C18.9 - Malignant neoplasm of colon, unspecified SNOMED: 697722244 (5) Sepsis ICD Codes: A41.9 - Sepsis, unspecified organism SNOMED: 43625293 (6) Tracheostomy dependence ICD Codes: Z93.0 - Tracheostomy status SNOMED: 795471095 (7) 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 Humphries. Assessment/Plan Assessment - Iron deficiency anemia - abnormal LFT - ? meds, passive congestion - dysphagia, s/p GT - Resp, failure, s/p Trach - hepatitis panel negative Recommendations - Continue TF - Monitor LFT - follow CBC - Conservative approach given poor healt- -CT and us reviewed Subjective ROS Limited/Unobtainable: No Allergies: Coded Allergies: Crayfish (Unverified Allergy, Unknown, 11/11/18) Uncoded Allergies: Crawfish (Allergy, Unknown, 11/09/18) Subjective fever last night had BM Objective Last 24 Hour Vital Signs Date Time Temp Pulse Resp B/P (MAP) Pulse Ox O2 Delivery O2 Flow Rate FiO2 11/28/18 08:25 85 126/58 11/28/18 08:00 98.4 85 18 126/58 (80) 100 11/28/18 07:08 86 22 30 11/28/18 06:05 92 141/72 11/28/18 06:04 141/72 11/28/18 05:28 91 23 30 11/28/18 04:00 83 11/28/18 04:00 98.7 92 20 141/73 (95) 100 11/28/18 04:00 Mechanical Ventilator 11/28/18 04:00 30 11/28/18 03:02 84 26 30 11/28/18 01:05 81 24 30 11/28/18 00:00 98.7 85 20 130/70 (90) 100 11/28/18 00:00 30 11/28/18 00:00 83 11/28/18 00:00 Mechanical Ventilator 11/27/18 23:25 85 26 30 11/27/18 22:12 90 130/70 11/27/18 22:06 130/68 11/27/18 21:00 84 21 30 11/27/18 20:00 Mechanical Ventilator 11/27/18 20:00 85 11/27/18 20:00 98.7 90 20 125/68 (87) 100 11/27/18 18:45 82 21 30 11/27/18 17:08 90 30 30 11/27/18 16:00 90 11/27/18 16:00 Mechanical Ventilator 11/27/18 16:00 30 11/27/18 16:00 98.2 87 24 104/62 (76) 100 11/27/18 15:28 88 25 30 11/27/18 14:44 152/74 11/27/18 14:43 88 152/74 11/27/18 13:00 78 32 30 11/27/18 12:00 98.1 81 19 115/59 (77) 100 11/27/18 12:00 30 11/27/18 12:00 Mechanical Ventilator 11/27/18 12:00 80 11/27/18 11:16 81 30 30 11/27/18 08:59 77 111/59 11/27/18 08:56 77 20 30 Intake and Output 11/27/18 11/28/18 19:00 07:00 Intake Total 2060.000 ml 1671 ml Output Total 700 ml Balance 2060.000 ml 971 ml Intake Free Water 50 ml IV Total 1025.000 ml 836 ml Tube Feeding 715 ml 715 ml Blood Product 250 ml Other 20 ml 120 ml Output Urine Total 700 ml # Bowel Movements 2 3 Laboratory Tests 11/27/18 21:00: Sodium Level 128L, Potassium Level 3.7, Chloride Level 92L, Carbon Dioxide Level 32, Anion Gap 4L, Blood Urea Nitrogen 13, Creatinine 0.3L, Estimat Glomerular Filtration Rate , Glucose Level 111H, Calcium Level 7.6L 11/28/18 04:00: Sodium Level 126L, Potassium Level 3.6, Chloride Level 90L, Carbon Dioxide Level 32, Anion Gap 4L, Blood Urea Nitrogen 13, Creatinine 0.4L, Estimat Glomerular Filtration Rate , Glucose Level 105, Calcium Level 7.8L, White Blood Count 10.2, Red Blood Count 3.54L, Hemoglobin 9.3L, Hematocrit 26.7L, Mean Corpuscular Volume 76L, Mean Corpuscular Hemoglobin 26.2L, Mean Corpuscular Hemoglobin Concent 34.7, Red Cell Distribution Width 19.8H, Platelet Count 280, Mean Platelet Volume 5.5L, Neutrophils (%) (Auto) 78.0H, Lymphocytes (%) (Auto) 10.3L, Monocytes (%) (Auto) 5.7, Eosinophils (%) (Auto) 5.4H, Basophils (%) ( Auto) 0.7, Total Bilirubin 0.3, Aspartate Amino Transf (AST/SGOT) 186H, Alanine Aminotransferase (ALT/SGPT) 118H, Alkaline Phosphatase 544H, Total Protein 5.3L , Albumin 1.0L, Globulin 4.3, Albumin/Globulin Ratio 0.2L Height (Feet): 5 Height (Inches): 8.00 Weight (Pounds): 210 General Appearance: no apparent distress EENT: normal ENT inspection Neck: supple Cardiovascular: normal rate Respiratory/Chest: decreased breath sounds Abdomen: normal bowel sounds, non tender, soft Extremities: non-tender Casper Humphries MD Nov 28, 2018 08:32
--- NOTE | 2018-11-28 08:50 | Pulmonology Progress Note ---
Assessment/Plan Problems: (1) Ventilator dependence (2) Tracheostomy dependence (3) UTI (urinary tract infection) (4) Fever (5) Anoxic brain damage (6) Tongue abnormality (7) Seizure disorder (8) Colon adenocarcinoma (9) HTN (hypertension) (10) Sepsis (11) Diabetes (12) Abnormal LFTs (13) Protein calorie malnutrition (14) Gastrostomy in place (15) custodial resident (16) Decubitus skin ulcer Assessment/Plan Continue ventilatory support/settings reviewed Titrate down FiO2 to keep SaO2 > 90% Optimize pulmonary hygiene/mobilize as tolerated RTC and PRN HHN's Abx per ID, F/U Cx's F/U cards recs Monitor volumes and renal function PRN lasix DVT Px: LMWH ENT eval pending FC, continue to discuss GOC Wound care Subjective Allergies: Coded Allergies: Crayfish (Unverified Allergy, Unknown, 11/11/18) Uncoded Allergies: Crawfish (Allergy, Unknown, 11/09/18) All Systems: reviewed and negative except above Subjective AFVSS stable on vent no sig secretions no distress Objective Last 24 Hour Vital Signs Date Time Temp Pulse Resp B/P (MAP) Pulse Ox O2 Delivery O2 Flow Rate FiO2 11/28/18 08:25 85 126/58 11/28/18 08:00 30 11/28/18 08:00 Mechanical Ventilator 11/28/18 08:00 98.4 85 18 126/58 (80) 100 11/28/18 07:08 86 22 30 11/28/18 06:05 92 141/72 11/28/18 06:04 141/72 11/28/18 05:28 91 23 30 11/28/18 04:00 83 11/28/18 04:00 98.7 92 20 141/73 (95) 100 11/28/18 04:00 Mechanical Ventilator 11/28/18 04:00 30 11/28/18 03:02 84 26 30 11/28/18 01:05 81 24 30 11/28/18 00:00 98.7 85 20 130/70 (90) 100 11/28/18 00:00 30 11/28/18 00:00 83 11/28/18 00:00 Mechanical Ventilator 11/27/18 23:25 85 26 30 11/27/18 22:12 90 130/70 11/27/18 22:06 130/68 11/27/18 21:00 84 21 30 11/27/18 20:00 Mechanical Ventilator 11/27/18 20:00 85 11/27/18 20:00 98.7 90 20 125/68 (87) 100 11/27/18 18:45 82 21 30 11/27/18 17:08 90 30 30 11/27/18 16:00 90 11/27/18 16:00 Mechanical Ventilator 11/27/18 16:00 30 11/27/18 16:00 98.2 87 24 104/62 (76) 100 11/27/18 15:28 88 25 30 11/27/18 14:44 152/74 11/27/18 14:43 88 152/74 11/27/18 13:00 78 32 30 11/27/18 12:00 98.1 81 19 115/59 (77) 100 11/27/18 12:00 30 11/27/18 12:00 Mechanical Ventilator 11/27/18 12:00 80 11/27/18 11:16 81 30 30 11/27/18 08:59 77 111/59 11/27/18 08:56 77 20 30 Intake and Output 11/27/18 11/28/18 19:00 07:00 Intake Total 2060.000 ml 1671 ml Output Total 700 ml Balance 2060.000 ml 971 ml Intake Free Water 50 ml IV Total 1025.000 ml 836 ml Tube Feeding 715 ml 715 ml Blood Product 250 ml Other 20 ml 120 ml Output Urine Total 700 ml # Bowel Movements 2 3 General Appearance: no acute distress, cachetic HEENT: status post trach, other - macroglossia Respiratory/Chest: chest wall non-tender, lungs clear, normal breath sounds, no respiratory distress, no accessory muscle use Cardiovascular: normal peripheral pulses, normal rate, regular rhythm Abdomen: normal bowel sounds, soft, non tender, no organomegaly, non distended , no mass, other - GT Extremities: no cyanosis, no clubbing, other - 1+ LEONORA Microbiology Date/Time Source Procedure Growth Status 11/26/18 09:00 Sputum Gram Stain - Final Complete 11/26/18 09:00 Sputum Culture - Final Acinetobacter Baumanii - Mdr Providencia Stuartii Complete Laboratory Tests 11/27/18 21:00: Sodium Level 128L, Potassium Level 3.7, Chloride Level 92L, Carbon Dioxide Level 32, Anion Gap 4L, Blood Urea Nitrogen 13, Creatinine 0.3L, Estimat Glomerular Filtration Rate , Glucose Level 111H, Calcium Level 7.6L 11/28/18 04:00: Sodium Level 126L, Potassium Level 3.6, Chloride Level 90L, Carbon Dioxide Level 32, Anion Gap 4L, Blood Urea Nitrogen 13, Creatinine 0.4L, Estimat Glomerular Filtration Rate , Glucose Level 105, Calcium Level 7.8L, White Blood Count 10.2, Red Blood Count 3.54L, Hemoglobin 9.3L, Hematocrit 26.7L, Mean Corpuscular Volume 76L, Mean Corpuscular Hemoglobin 26.2L, Mean Corpuscular Hemoglobin Concent 34.7, Red Cell Distribution Width 19.8H, Platelet Count 280, Mean Platelet Volume 5.5L, Neutrophils (%) (Auto) 78.0H, Lymphocytes (%) (Auto) 10.3L, Monocytes (%) (Auto) 5.7, Eosinophils (%) (Auto) 5.4H, Basophils (%) ( Auto) 0.7, Total Bilirubin 0.3, Aspartate Amino Transf (AST/SGOT) 186H, Alanine Aminotransferase (ALT/SGPT) 118H, Alkaline Phosphatase 544H, Total Protein 5.3L , Albumin 1.0L, Globulin 4.3, Albumin/Globulin Ratio 0.2L Current Medications Medications (Trade) Dose Ordered Sig/Lupe Route PRN Reason Start Time Stop Time Status Last Admin Dose Admin Acetaminophen (Tylenol) 650 mg Q4H PRN GT Mild Pain/Temp > 100.5 11/09/18 05:00 12/09/18 04:59 11/24/18 21:50 Amlodipine Besylate (Norvasc) 10 mg DAILY GT 11/09/18 09:00 12/09/18 08:59 11/28/18 08:25 Bisacodyl (Dulcolax) 10 mg DAILY PRN RECTAL Constipation 11/09/18 05:00 12/09/18 04:59 Calcium Carbonate (Tums) 500 mg EVERY 8 HOURS GT 11/09/18 14:00 12/09/18 08:59 11/28/18 06:05 Chlorhexidine Gluconate (Corazon-Hex 2%) 1 applic DAILY@1999 TOPIC 11/12/18 20:00 12/12/18 19:59 11/27/18 20:45 Dextrose (Dextrose 50%) 25 ml Q30M PRN IV Hypoglycemia 11/09/18 04:45 12/09/18 04:44 Dextrose (Dextrose 50%) 50 ml Q30M PRN IV Hypoglycemia 11/09/18 04:45 12/09/18 04:44 11/09/18 09:09 Enoxaparin Sodium (Lovenox) 40 mg DAILY SUBQ 11/09/18 09:00 12/09/18 08:59 11/28/18 08:32 Famotidine (Pepcid) 20 mg EVERY 12 HOURS GT 11/09/18 21:00 12/09/18 08:59 11/28/18 08:25 Furosemide (Lasix) 40 mg EVERY 12 HOURS GT 11/09/18 09:00 12/09/18 08:59 11/28/18 08:25 Hydralazine HCl (Apresoline) 5 mg EVERY 8 HOURS GT 11/09/18 06:00 12/09/18 05:59 11/28/18 06:04 Insulin Aspart (NovoLOG) Q6HR SUBQ 11/09/18 06:00 12/09/18 05:59 11/27/18 17:49 Insulin Detemir (Levemir) 4 units EVERY 12 HOURS SUBQ 11/16/18 21:00 12/09/18 08:59 11/28/18 08:27 Labetalol HCl (Normodyne) 200 mg Q8HR GT 11/09/18 06:00 12/09/18 05:59 11/28/18 06:05 Lactulose (Cephulac) 10 gm THREE TIMES A DAY GT 11/27/18 18:00 12/27/18 12:59 11/28/18 08:24 Levetiracetam (Keppra) 1,500 mg Q12HR GT 11/09/18 09:00 12/09/18 08:59 11/28/18 08:24 Magnesium Hydroxide (Mom) 30 ml DAILY PRN GT Constipation 11/09/18 05:00 12/09/18 04:59 Magnesium Oxide (Mag-Ox 400mg) 400 mg EVERY 8 HOURS GT 11/09/18 14:00 12/09/18 08:59 11/27/18 14:44 Metronidazole 100 ml @ 100 mls/hr Q8HR IVPB 11/26/18 14:00 12/03/18 13:59 11/28/18 06:07 Micafungin Sodium 100 mg/Sodium Chloride 100 ml @ 100 mls/hr Q24H IVPB 11/24/18 14:00 12/01/18 13:59 11/27/18 15:01 Ondansetron HCl (Zofran) 4 mg Q6H PRN GT Nausea & Vomiting 11/09/18 05:00 12/09/18 04:59 Phenobarbital (PHENobarbital) 60 mg BID GT 11/09/18 09:00 12/09/18 08:59 11/28/18 08:30 Phenytoin (Dilantin) 100 mg Q8HR GT 11/09/18 06:00 12/09/18 05:59 11/28/18 06:08 Polyethylene Glycol (Miralax) 17 gm DAILYPRN PRN GT Constipation 11/14/18 10:30 12/12/18 10:29 Polymyxin B Sulfate 577706 units/Dextrose 550 ml @ 550 mls/hr EVERY 12 HOURS IV 11/26/18 21:00 12/03/18 20:59 11/28/18 08:25 Sennosides (Senokot) 8.6 mg EVERY 12 HOURS GT 11/09/18 21:00 12/09/18 08:59 11/28/18 08:25 Valproic Acid (Depakene) 500 mg EVERY 8 HOURS GT 11/09/18 06:00 12/09/18 05:59 11/28/18 06:08 Vancomycin HCl (Vanco rx to dose) 1 ea DAILY PRN MISC Per rx protocol 11/24/18 13:00 12/24/18 12:59 Vancomycin HCl 1 gm/Dextrose 275 ml @ 183.708 mls/hr Q12HR@0400,1600 IVPB 11/25/18 16:00 11/30/18 15:59 11/28/18 04:50 Balbir Dejesus MD Nov 28, 2018 08:50
--- NOTE | 2018-11-28 11:04 | NUR ---
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 98.4 HR 85 RR 18 B/P 126/75 AC 14 TV 375 FIO2 30% PEEP 5 NA 126 AST 186 ALT 118 ALK PHOS 544 IS: IVF NS @ 150ML/HR POLYMYXIN IV VANCO IV FLAGYL IV MICAFUNGIN IV STEP DOWN STATUS
--- NOTE | 2018-11-28 11:21 | Hematology/Onc Progress Note ---
Assessment/Plan Assessment/Plan # Anemia of chronic disease due to underlying chronic medical issues, multifactorial --> Anemia workup has been reviewed and cw acd --> No evidence of hemolysis is noted, peripheral smear has been reviewed. --> Hgb goal >7. Transfuse prn. --> hgb trend 9.1-->8.9-->9-->8.9-->8.9->7.8->8.7-->9-->8-->7.5-->9.3 --> Epogen or iron indication prn --> Medications have been reviewed --> low threshold for gi evaluation and occult is negative --> bone marrow biopsy is not indicated given the other more likely causes # Leukocytosis iwth Sepsis secondary to UTI, GPC Staph Epidermidis bacteremia, Line associated infection - patient arrived to the Hospital with PICC --> as per ID consult appreciate Rec --> Continue antibiotics per ID: Continue Zosyn and vancomycin, anti fungal added--> kaykay/vanc, diflucan-->flagyl, vanc, polymyxin --> imaging noted # Thrombocytosis is likely due to underlying reactive process --> if doesn't improve send off jak2 --> plt count 641k-->402k-->344-->275k-->280k # Transaminitis --> trend lft's --> GI consult, apprec recs --> ab us: reviewed # Elevated troponin secondary to sepsis versus ACS --> as per Cardiology consult, appreciate recs --> now better # Hypertension- improved --> sbp goal <150 # Vent dependent with trach --> as per Pulmonary recs # Hypokalemia # Dysphagia s/p gtube feeds # CHf hx with hyponatremia --> 1l fluid restriction # Dvt ppx with lovenox (ok to continue given occult neg) The timing of this note does not necessarily reflect the time of the patient was seen. GREATLY APPRECIATE CONSULTATION. Subjective Allergies: Coded Allergies: Crayfish (Unverified Allergy, Unknown, 11/11/18) Uncoded Allergies: Crawfish (Allergy, Unknown, 11/09/18) Subjective 11/14: no events to report, labs relatively stable, hgb 8.9, on vent 11/15: no bleeding, no chills, labs reviewed, no major changes 11/16: cxr-->bilateral interstitial edema, vs stable, on abx, on vent, contact isolation 11/17: labs reviewed, on abx, vs stable, on vent, no distress 11/18: remains on gtube feeds, is on vent, on kaykay/vanc 11/20: no events, no bleeding, kaykay, vanc, diflucan, no f/c 11/21: remains on vent, gtube feeds, no major changes, no bleeding 11/22: ct abdomen pelvis w/contrast reviewed, vs stable, no acute events, labs reviewed, remains intubated, low grade fever 11/23: reviewed meds, abx have been changed, remains altered currently 11/24: labs reviewed, vs stable, med reviewed, no sob, no distress, on vent 11/25: remains on vent, no major events, on glucerna, fluid restriction 11/27: signed consent today, no f/c, no night sweats 11/28: no f/c, on abx, on vent, no distress, picc line in Objective Objective Current Medications Medications (Trade) Dose Ordered Sig/Lupe Route PRN Reason Start Time Stop Time Status Last Admin Dose Admin Acetaminophen (Tylenol) 650 mg Q4H PRN GT Mild Pain/Temp > 100.5 11/09/18 05:00 12/09/18 04:59 11/24/18 21:50 Amlodipine Besylate (Norvasc) 10 mg DAILY GT 11/09/18 09:00 12/09/18 08:59 11/28/18 08:25 Bisacodyl (Dulcolax) 10 mg DAILY PRN RECTAL Constipation 11/09/18 05:00 12/09/18 04:59 Calcium Carbonate (Tums) 500 mg EVERY 8 HOURS GT 11/09/18 14:00 12/09/18 08:59 11/28/18 06:05 Chlorhexidine Gluconate (Corazon-Hex 2%) 1 applic DAILY@1999 TOPIC 11/12/18 20:00 12/12/18 19:59 11/27/18 20:45 Dextrose (Dextrose 50%) 25 ml Q30M PRN IV Hypoglycemia 11/09/18 04:45 12/09/18 04:44 Dextrose (Dextrose 50%) 50 ml Q30M PRN IV Hypoglycemia 11/09/18 04:45 12/09/18 04:44 11/09/18 09:09 Enoxaparin Sodium (Lovenox) 40 mg DAILY SUBQ 11/09/18 09:00 12/09/18 08:59 11/28/18 08:32 Famotidine (Pepcid) 20 mg EVERY 12 HOURS GT 11/09/18 21:00 12/09/18 08:59 11/28/18 08:25 Hydralazine HCl (Apresoline) 5 mg EVERY 8 HOURS GT 11/09/18 06:00 12/09/18 05:59 11/28/18 06:04 Insulin Aspart (NovoLOG) Q6HR SUBQ 11/09/18 06:00 12/09/18 05:59 11/27/18 17:49 Insulin Detemir (Levemir) 4 units EVERY 12 HOURS SUBQ 11/16/18 21:00 12/09/18 08:59 11/28/18 08:27 Labetalol HCl (Normodyne) 200 mg Q8HR GT 11/09/18 06:00 12/09/18 05:59 11/28/18 06:05 Lactulose (Cephulac) 10 gm THREE TIMES A DAY GT 11/27/18 18:00 12/27/18 12:59 11/28/18 08:24 Levetiracetam (Keppra) 1,500 mg Q12HR GT 11/09/18 09:00 12/09/18 08:59 11/28/18 08:24 Magnesium Hydroxide (Mom) 30 ml DAILY PRN GT Constipation 11/09/18 05:00 12/09/18 04:59 Magnesium Oxide (Mag-Ox 400mg) 400 mg EVERY 8 HOURS GT 11/09/18 14:00 12/09/18 08:59 11/27/18 14:44 Metronidazole 100 ml @ 100 mls/hr Q8HR IVPB 11/26/18 14:00 12/03/18 13:59 11/28/18 06:07 Micafungin Sodium 100 mg/Sodium Chloride 100 ml @ 100 mls/hr Q24H IVPB 11/24/18 14:00 12/01/18 13:59 11/27/18 15:01 Ondansetron HCl (Zofran) 4 mg Q6H PRN GT Nausea & Vomiting 11/09/18 05:00 12/09/18 04:59 Phenobarbital (PHENobarbital) 60 mg BID GT 11/09/18 09:00 12/09/18 08:59 11/28/18 08:30 Phenytoin (Dilantin) 100 mg Q8HR GT 11/09/18 06:00 12/09/18 05:59 11/28/18 06:08 Polyethylene Glycol (Miralax) 17 gm DAILYPRN PRN GT Constipation 11/14/18 10:30 12/12/18 10:29 Polymyxin B Sulfate 278068 units/Dextrose 550 ml @ 550 mls/hr EVERY 12 HOURS IV 11/26/18 21:00 12/03/18 20:59 11/28/18 08:25 Sennosides (Senokot) 8.6 mg EVERY 12 HOURS GT 11/09/18 21:00 12/09/18 08:59 11/28/18 08:25 Sodium Chloride 1,000 ml @ 150 mls/hr Q6H40M IV 11/28/18 09:45 12/28/18 09:44 11/28/18 10:32 Valproic Acid (Depakene) 500 mg EVERY 8 HOURS GT 11/09/18 06:00 12/09/18 05:59 11/28/18 06:08 Vancomycin HCl (Vanco rx to dose) 1 ea DAILY PRN MISC Per rx protocol 11/24/18 13:00 12/24/18 12:59 Vancomycin HCl 1 gm/Dextrose 275 ml @ 183.708 mls/hr Q12HR@0400,1600 IVPB 11/25/18 16:00 11/30/18 15:59 11/28/18 04:50 Last 24 Hour Vital Signs Date Time Temp Pulse Resp B/P (MAP) Pulse Ox O2 Delivery O2 Flow Rate FiO2 11/28/18 08:55 90 20 30 11/28/18 08:25 85 126/58 11/28/18 08:00 30 11/28/18 08:00 Mechanical Ventilator 11/28/18 08:00 98.4 85 18 126/58 (80) 100 11/28/18 07:51 86 11/28/18 07:08 86 22 30 11/28/18 06:05 92 141/72 11/28/18 06:04 141/72 11/28/18 05:28 91 23 30 11/28/18 04:00 83 11/28/18 04:00 98.7 92 20 141/73 (95) 100 11/28/18 04:00 Mechanical Ventilator 11/28/18 04:00 30 11/28/18 03:02 84 26 30 11/28/18 01:05 81 24 30 11/28/18 00:00 98.7 85 20 130/70 (90) 100 11/28/18 00:00 30 11/28/18 00:00 83 11/28/18 00:00 Mechanical Ventilator 11/27/18 23:25 85 26 30 11/27/18 22:12 90 130/70 11/27/18 22:06 130/68 11/27/18 21:00 84 21 30 11/27/18 20:00 Mechanical Ventilator 11/27/18 20:00 85 11/27/18 20:00 98.7 90 20 125/68 (87) 100 11/27/18 18:45 82 21 30 11/27/18 17:08 90 30 30 11/27/18 16:00 90 11/27/18 16:00 Mechanical Ventilator 11/27/18 16:00 30 11/27/18 16:00 98.2 87 24 104/62 (76) 100 11/27/18 15:28 88 25 30 11/27/18 14:44 152/74 11/27/18 14:43 88 152/74 11/27/18 13:00 78 32 30 11/27/18 12:00 98.1 81 19 115/59 (77) 100 11/27/18 12:00 30 11/27/18 12:00 Mechanical Ventilator 11/27/18 12:00 80 11/27/18 11:16 81 30 30 11/27/18 08:59 77 111/59 11/27/18 08:56 77 20 30 11/27/18 08:00 Mechanical Ventilator 11/27/18 08:00 79 11/27/18 08:00 30 11/27/18 08:00 97.4 77 19 111/59 (76) 100 11/27/18 07:29 79 21 30 11/27/18 05:19 86 118/76 11/27/18 05:19 118/76 11/27/18 05:08 86 21 30 11/27/18 04:00 Mechanical Ventilator 11/27/18 04:00 30 11/27/18 04:00 97.7 87 26 118/76 (90) 100 11/27/18 03:21 89 23 30 11/27/18 03:20 89 11/27/18 01:31 86 22 30 11/27/18 00:00 84 11/27/18 00:00 30 11/27/18 00:00 97.9 86 26 109/63 (78) 100 11/27/18 00:00 Mechanical Ventilator 11/26/18 23:16 87 25 30 11/26/18 21:22 94 137/73 11/26/18 21:22 137/73 11/26/18 21:19 89 27 30 11/26/18 20:00 93 11/26/18 20:00 Mechanical Ventilator 11/26/18 20:00 30 11/26/18 20:00 98.8 94 26 137/73 (94) 100 11/26/18 19:12 94 26 30 11/26/18 17:00 86 21 30 11/26/18 16:00 Mechanical Ventilator 11/26/18 16:00 99.2 86 20 115/65 (82) 100 11/26/18 16:00 86 11/26/18 16:00 30 11/26/18 14:57 86 24 30 11/26/18 13:18 91 112/69 11/26/18 13:18 112/69 11/26/18 12:49 91 25 30 11/26/18 12:00 Mechanical Ventilator 11/26/18 12:00 96.6 85 20 112/69 (83) 97 11/26/18 12:00 30 11/26/18 12:00 87 Intake and Output 11/27/18 11/28/18 19:00 07:00 Intake Total 2060.000 ml 1736 ml Output Total 700 ml Balance 2060.000 ml 1036 ml Intake Free Water 50 ml IV Total 1025.000 ml 836 ml Tube Feeding 715 ml 780 ml Blood Product 250 ml Other 20 ml 120 ml Output Urine Total 700 ml # Bowel Movements 2 3 Labs Test 11/25/18 15:00 11/26/18 03:10 11/27/18 03:00 11/27/18 21:00 Vancomycin Level Trough 10.1 ug/mL (5.0-12.0) 15.6 ug/mL (5.0-12.0) White Blood Count 9.1 K/UL (4.8-10.8) 9.6 K/UL (4.8-10.8) Red Blood Count 2.98 M/UL (4.20-5.40) 2.91 M/UL (4.20-5.40) Hemoglobin 7.6 G/DL (12.0-16.0) 7.5 G/DL (12.0-16.0) Hematocrit 22.7 % (37.0-47.0) 21.8 % (37.0-47.0) Mean Corpuscular Volume 76 FL (80-99) 75 FL (80-99) Mean Corpuscular Hemoglobin 25.6 PG (27.0-31.0) 25.7 PG (27.0-31.0) Mean Corpuscular Hemoglobin Concent 33.6 G/DL (32.0-36.0) 34.3 G/DL (32.0-36.0) Red Cell Distribution Width 21.4 % (11.6-14.8) 20.7 % (11.6-14.8) Platelet Count 310 K/UL (150-450) 275 K/UL (150-450) Mean Platelet Volume 5.3 FL (6.5-10.1) 5.8 FL (6.5-10.1) Neutrophils (%) (Auto) % (45.0-75.0) % (45.0-75.0) Lymphocytes (%) (Auto) % (20.0-45.0) % (20.0-45.0) Monocytes (%) (Auto) % (1.0-10.0) % (1.0-10.0) Eosinophils (%) (Auto) % (0.0-3.0) % (0.0-3.0) Basophils (%) (Auto) % (0.0-2.0) % (0.0-2.0) Sodium Level 127 MMOL/L (136-145) 126 MMOL/L (136-145) 128 MMOL/L (136-145) Potassium Level 3.6 MMOL/L (3.5-5.1) 3.4 MMOL/L (3.5-5.1) 3.7 MMOL/L (3.5-5.1) Chloride Level 93 MMOL/L (98-107) 92 MMOL/L (98-107) 92 MMOL/L (98-107) Carbon Dioxide Level 30 MMOL/L (21-32) 30 MMOL/L (21-32) 32 MMOL/L (21-32) Anion Gap 4 mmol/L (5-15) 5 mmol/L (5-15) 4 mmol/L (5-15) Blood Urea Nitrogen 13 mg/dL (7-18) 12 mg/dL (7-18) 13 mg/dL (7-18) Creatinine 0.4 MG/DL (0.55-1.30) 0.4 MG/DL (0.55-1.30) 0.3 MG/DL (0.55-1.30) Estimat Glomerular Filtration Rate mL/min (>60) mL/min (>60) mL/min (>60) Glucose Level 118 MG/DL (74-106) 142 MG/DL (74-106) 111 MG/DL (74-106) Calcium Level 7.7 MG/DL (8.5-10.1) 7.1 MG/DL (8.5-10.1) 7.6 MG/DL (8.5-10.1) Total Bilirubin 0.3 MG/DL (0.2-1.0) Aspartate Amino Transf (AST/SGOT) 191 U/L (15-37) Alanine Aminotransferase (ALT/SGPT) 115 U/L (12-78) Alkaline Phosphatase 439 U/L (46-116) Total Protein 4.8 G/DL (6.4-8.2) Albumin 0.9 G/DL (3.4-5.0) Globulin 3.9 g/dL Albumin/Globulin Ratio 0.2 (1.0-2.7) Test 11/28/18 04:00 White Blood Count 10.2 K/UL (4.8-10.8) Red Blood Count 3.54 M/UL (4.20-5.40) Hemoglobin 9.3 G/DL (12.0-16.0) Hematocrit 26.7 % (37.0-47.0) Mean Corpuscular Volume 76 FL (80-99) Mean Corpuscular Hemoglobin 26.2 PG (27.0-31.0) Mean Corpuscular Hemoglobin Concent 34.7 G/DL (32.0-36.0) Red Cell Distribution Width 19.8 % (11.6-14.8) Platelet Count 280 K/UL (150-450) Mean Platelet Volume 5.5 FL (6.5-10.1) Neutrophils (%) (Auto) 78.0 % (45.0-75.0) Lymphocytes (%) (Auto) 10.3 % (20.0-45.0) Monocytes (%) (Auto) 5.7 % (1.0-10.0) Eosinophils (%) (Auto) 5.4 % (0.0-3.0) Basophils (%) (Auto) 0.7 % (0.0-2.0) Sodium Level 126 MMOL/L (136-145) Potassium Level 3.6 MMOL/L (3.5-5.1) Chloride Level 90 MMOL/L (98-107) Carbon Dioxide Level 32 MMOL/L (21-32) Anion Gap 4 mmol/L (5-15) Blood Urea Nitrogen 13 mg/dL (7-18) Creatinine 0.4 MG/DL (0.55-1.30) Estimat Glomerular Filtration Rate mL/min (>60) Glucose Level 105 MG/DL (74-106) Uric Acid 7.3 MG/DL (2.6-7.2) Calcium Level 7.8 MG/DL (8.5-10.1) Total Bilirubin 0.3 MG/DL (0.2-1.0) Aspartate Amino Transf (AST/SGOT) 186 U/L (15-37) Alanine Aminotransferase (ALT/SGPT) 118 U/L (12-78) Alkaline Phosphatase 544 U/L (46-116) Total Protein 5.3 G/DL (6.4-8.2) Albumin 1.0 G/DL (3.4-5.0) Globulin 4.3 g/dL Albumin/Globulin Ratio 0.2 (1.0-2.7) Height (Feet): 5 Height (Inches): 8.00 Weight (Pounds): 210 Objective Physical Exam: Vitals: reviewed Gen: NAD HEENT: normocephalic, atraumatic Neck: non-tender, normal alignment ++ vent/trach Respiratory: normal breath sounds bilaterally CV: normal peripheral pulses, rrr Abdomen: normal bowel sounds, soft, nontender +gtube Extremities: 1-2+ edema, normal range of motion Yonathan Hernandez MD Nov 28, 2018 11:21
--- NOTE | 2018-11-28 11:37 | Surgery Progress Note ---
Surgery Progress Note Subjective Symptoms: improved, other Objective Last 24 Hour Vital Signs Date Time Temp Pulse Resp B/P (MAP) Pulse Ox O2 Delivery O2 Flow Rate FiO2 11/28/18 11:25 89 26 30 11/28/18 08:55 90 20 30 11/28/18 08:25 85 126/58 11/28/18 08:00 30 11/28/18 08:00 Mechanical Ventilator 11/28/18 08:00 98.4 85 18 126/58 (80) 100 11/28/18 07:51 86 11/28/18 07:08 86 22 30 11/28/18 06:05 92 141/72 11/28/18 06:04 141/72 11/28/18 05:28 91 23 30 11/28/18 04:00 83 11/28/18 04:00 98.7 92 20 141/73 (95) 100 11/28/18 04:00 Mechanical Ventilator 11/28/18 04:00 30 11/28/18 03:02 84 26 30 11/28/18 01:05 81 24 30 11/28/18 00:00 98.7 85 20 130/70 (90) 100 11/28/18 00:00 30 11/28/18 00:00 83 11/28/18 00:00 Mechanical Ventilator 11/27/18 23:25 85 26 30 11/27/18 22:12 90 130/70 11/27/18 22:06 130/68 11/27/18 21:00 84 21 30 11/27/18 20:00 Mechanical Ventilator 11/27/18 20:00 85 11/27/18 20:00 98.7 90 20 125/68 (87) 100 11/27/18 18:45 82 21 30 11/27/18 17:08 90 30 30 11/27/18 16:00 90 11/27/18 16:00 Mechanical Ventilator 11/27/18 16:00 30 11/27/18 16:00 98.2 87 24 104/62 (76) 100 11/27/18 15:28 88 25 30 11/27/18 14:44 152/74 11/27/18 14:43 88 152/74 11/27/18 13:00 78 32 30 11/27/18 12:00 98.1 81 19 115/59 (77) 100 11/27/18 12:00 30 11/27/18 12:00 Mechanical Ventilator 11/27/18 12:00 80 I&O Intake and Output 11/27/18 11/28/18 19:00 07:00 Intake Total 2060.000 ml 1736 ml Output Total 700 ml Balance 2060.000 ml 1036 ml Intake Free Water 50 ml IV Total 1025.000 ml 836 ml Tube Feeding 715 ml 780 ml Blood Product 250 ml Other 20 ml 120 ml Output Urine Total 700 ml # Bowel Movements 2 3 Dressing: other Wound: other Drains: other Cardiovascular: RSR Respiratory: clear, decreased breath sounds, other Abdomen: soft, present bowel sounds, other, non-distended Extremities: no cyanosis, other Laboratory Tests Test 11/27/18 21:00 11/28/18 04:00 Sodium Level 128 MMOL/L (136-145) L 126 MMOL/L (136-145) L Potassium Level 3.7 MMOL/L (3.5-5.1) 3.6 MMOL/L (3.5-5.1) Chloride Level 92 MMOL/L (98-107) L 90 MMOL/L (98-107) L Carbon Dioxide Level 32 MMOL/L (21-32) 32 MMOL/L (21-32) Anion Gap 4 mmol/L (5-15) L 4 mmol/L (5-15) L Blood Urea Nitrogen 13 mg/dL (7-18) 13 mg/dL (7-18) Creatinine 0.3 MG/DL (0.55-1.30) L 0.4 MG/DL (0.55-1.30) L Estimat Glomerular Filtration Rate mL/min (>60) mL/min (>60) Glucose Level 111 MG/DL (74-106) H 105 MG/DL (74-106) Calcium Level 7.6 MG/DL (8.5-10.1) L 7.8 MG/DL (8.5-10.1) L White Blood Count 10.2 K/UL (4.8-10.8) Red Blood Count 3.54 M/UL (4.20-5.40) L Hemoglobin 9.3 G/DL (12.0-16.0) L Hematocrit 26.7 % (37.0-47.0) L Mean Corpuscular Volume 76 FL (80-99) L Mean Corpuscular Hemoglobin 26.2 PG (27.0-31.0) L Mean Corpuscular Hemoglobin Concent 34.7 G/DL (32.0-36.0) Red Cell Distribution Width 19.8 % (11.6-14.8) H Platelet Count 280 K/UL (150-450) Mean Platelet Volume 5.5 FL (6.5-10.1) L Neutrophils (%) (Auto) 78.0 % (45.0-75.0) H Lymphocytes (%) (Auto) 10.3 % (20.0-45.0) L Monocytes (%) (Auto) 5.7 % (1.0-10.0) Eosinophils (%) (Auto) 5.4 % (0.0-3.0) H Basophils (%) (Auto) 0.7 % (0.0-2.0) Uric Acid 7.3 MG/DL (2.6-7.2) H Total Bilirubin 0.3 MG/DL (0.2-1.0) Aspartate Amino Transf (AST/SGOT) 186 U/L (15-37) H Alanine Aminotransferase (ALT/SGPT) 118 U/L (12-78) H Alkaline Phosphatase 544 U/L (46-116) H Total Protein 5.3 G/DL (6.4-8.2) L Albumin 1.0 G/DL (3.4-5.0) L Globulin 4.3 g/dL Albumin/Globulin Ratio 0.2 (1.0-2.7) L Plan Problems: (1) Fever (2) Tongue abnormality Assessment & Plan: patients jaw clenched closed and tongue has been stuck for some time. tongue split from middle teeth and now in two. edema and unable to reduce keep tongue moist. apply lube jelly prn dryness. will monitor do not recommend surgical intervention for this current medical condition spoke with family. ENT plan to see. OMFS no intervention (3) Tracheostomy dependence (4) Sepsis Assessment & Plan: gb no stones 6mm polyp no acute surgical intervention planned trend labs improving labs improved DAILY ESTIMATED NEEDS: Needs based on Critical care, sepsis, wound 60kg adj 22-30 kcals/kg [id number] total kcals 1.25-2 g protein/kg 75-120 g total protein Fluid per MD, on lasix NUTRITION DIAGNOSIS: * Swallowing difficulty r/t respiratory status as evidenced by pt is vent dep via trach and PEG dep. * Increased kcal and pro needs r/t wound healing and sepsis as evidenced by pt w/ sacral and R heel wounds, febrile (Tmax 101.5). CURRENT TF: Jevity 1.2 @50 ml/hr x16 hrs ENTERAL NUTRITION RECOMMENDATIONS: Glucerna 1.2 @65ml/hr x18 hrs + Prosource x1 daily to provide 1170ml, 1404 kcal, 70g pro + 11g pro, 942 free H2O - REC TF CHANGE AND INCREASE TO BETTER MEET EST NEEDS - TF TO BE HELD FOR ONE HR BEFORE AND AFTER DILANTIN MEDS - START @20ML/HR, ADVANCE TOLERATED 15ML/HR Q4-6 HRS TO GOAL - FLUSH PER MD, HOB OVRE 30 DEGREES ADDITIONAL RECOMMENDATIONS: 1) CALIBRATED BED SCALE W/ ADDED P200 MATTRESS + PUMP 2) ON LASIX, MONITOR LYTES AND HYDRATION STATUS DAILY 3) TF TO RUN A MAX OF 18 HRS/DAY W/ DILANTIN TID PER PHARMACY 4) REC TF CHANGE TO CARB CONTROL FORMULA 5) WOUND CARE: ADD CHAYITO BID + VIT C 250MG DAILY (5) Fever Assessment & Plan: CT A/P with findings Impression: No definite acute process Diverticulosis. No evidence of diverticulitis Extensive edema of the subcutaneous fat. 2 cm focal fluid collection/edema seen within the incision Moderate amount retained dense stool. Correlate with any clinical history of constipation Hiatal hernia. Gastrostomy Left renal parapelvic cysts Apparent prior hysterectomy (6) Decubitus skin ulcer Assessment & Plan: Pt presented on admission with full thickness sacral pressure injury.Base of wound is 20% necrotic , 80% slough. borders are macerated . Mild odor noted. (L)8.4cm x (W) 6.5cm. Periwound skin tone is darker without erythema,induration or elevation in skin temp. Both heels are non -blanchable and both are fluctuant when palpated. Tx.Plan: Clean wound with saline. Apply Therahoney. Aply Moisture Barrier paste periwound. Cover with Optifoam drsg. Change every 3 days and prn. Apply Cavilon Skin BArrier to both heels. Cover each heel with Optifoam drsg. Change every 7 days and prn. APM/DEIRDRE mattress overlay. Reposition at least every 2hours or as tolerated. Off-load heels with pillow. will follow with recs thank you Preet Hylton Nov 28, 2018 11:37
--- NOTE | 2018-11-28 11:37 | Infectious Diseases Prog Note ---
Assessment/Plan Assessment/Plan ASSESSMENT AND PLAN: 1. hardwood faller bacteremia/line infection, e.coli line infection, sacral wound infection , gram neg pna, enterococcus uti, sepsis, leukocytosis, fevers, fungemia risk, ? fungal uti vs colonization, ? new line infection , ? new nosocomial infection - polymyxin and flagyl, vancomycin and micafungin - day # 5 abx - fever curve much better, leukocytosis resolved - previous picc line changed recently - 11/13/18 - CT scan without abscess or diverticulitis - sacral wound management per surgery - rash improved - ? enlarged tongue as source - ENT evaluation if possible 2. Trach-vent respiratory failure. 3. Dysphagia, G-tube. 4. Anemia. 5. Diabetes. 6. Hypertension. 7. Large tongue. 8. Anoxic brain injury. 9. Weakness. 10. Poorly responsive. 11. History of seizures. 12. History of colon adenocarcinoma. 13. Skin care protocol. 14. Allergy to crawfish. 15. Social history negative. 16. Family history noncontributory. 17. MAR was noted. 18. Case was discussed with RN. 19. Continue treatment per primary consultants. 20. Orders were ordered, entered, and noted. 21. Continue wound care protocol. 22. Continue blood sugar and blood pressure treatment per primary consultants for diabetes and hypertension. 23. vre colonization and isolation Subjective Constitutional: Reports: other; Denies: fever HEENT: Reports: congestion Respiratory: Reports: shortness of breath Cardiovascular: Reports: other - no pressors Gastrointestinal/Abdominal: Denies: nausea, vomiting, diarrhea Genitourinary: Reports: other - + nava Neurologic: Reports: weakness, other - poorly responsive Psychiatric: Reports: other - NA Skin: Denies: rash Hematologic: Denies: bleeding Musculoskeletal: Reports: other - NA Allergies: Coded Allergies: Crayfish (Unverified Allergy, Unknown, 11/11/18) Uncoded Allergies: Crawfish (Allergy, Unknown, 11/09/18) Objective Vital Signs Last 24 Hour Vital Signs Date Time Temp Pulse Resp B/P (MAP) Pulse Ox O2 Delivery O2 Flow Rate FiO2 11/28/18 08:55 90 20 30 11/28/18 08:25 85 126/58 11/28/18 08:00 30 11/28/18 08:00 Mechanical Ventilator 11/28/18 08:00 98.4 85 18 126/58 (80) 100 11/28/18 07:51 86 11/28/18 07:08 86 22 30 11/28/18 06:05 92 141/72 11/28/18 06:04 141/72 11/28/18 05:28 91 23 30 11/28/18 04:00 83 11/28/18 04:00 98.7 92 20 141/73 (95) 100 11/28/18 04:00 Mechanical Ventilator 11/28/18 04:00 30 11/28/18 03:02 84 26 30 11/28/18 01:05 81 24 30 11/28/18 00:00 98.7 85 20 130/70 (90) 100 11/28/18 00:00 30 11/28/18 00:00 83 11/28/18 00:00 Mechanical Ventilator 11/27/18 23:25 85 26 30 11/27/18 22:12 90 130/70 11/27/18 22:06 130/68 11/27/18 21:00 84 21 30 11/27/18 20:00 Mechanical Ventilator 11/27/18 20:00 85 11/27/18 20:00 98.7 90 20 125/68 (87) 100 11/27/18 18:45 82 21 30 11/27/18 17:08 90 30 30 11/27/18 16:00 90 11/27/18 16:00 Mechanical Ventilator 11/27/18 16:00 30 11/27/18 16:00 98.2 87 24 104/62 (76) 100 11/27/18 15:28 88 25 30 11/27/18 14:44 152/74 11/27/18 14:43 88 152/74 11/27/18 13:00 78 32 30 11/27/18 12:00 98.1 81 19 115/59 (77) 100 11/27/18 12:00 30 11/27/18 12:00 Mechanical Ventilator 11/27/18 12:00 80 Height (Feet): 5 Height (Inches): 8.00 Weight (Pounds): 210 General Appearance: other - on vent, nad HEENT: normocephalic, atraumatic, anicteric, no JVD, status post trach Respiratory/Chest: crackles/rales, rhonchi - bilaterally Cardiovascular: normal rate, regular rhythm, no gallop/murmur, no JVD Abdomen: normal bowel sounds, soft, non tender, no organomegaly, non distended Genitourinary: other - + nava - urine clearer Extremities: no cyanosis Skin: rash - stable , other Neurologic/Psychiatric: motor weakness, other - poorly responisve, weak Lymphatic: no neck adenopathy Musculoskeletal: no effusion Objective 11/11/18 - chest x-ray - IMPRESSION: 1. Hypoventilatory lungs. Elevated right hemidiaphragm. Slightly improved vascular congestion. Similar bibasilar lung atelectasis and airspace disease. 2. Query right pleural effusion. 2-D echo - no vegetations mentioned, report noted sacral x-ray - no osteo mentioned, report noted 11/14/18 - Technique: One view of the chest Comparison: November 13, 2018 post PICC radiograph Findings: Bilateral interstitial and alveolar edema versus infiltrates appear slightly worse. There is increasing obscuration of left hemidiaphragm, may reflect increasing pleural fluid as well. The heart remains enlarged. Previously demonstrated left arm PICC has been removed. Stable right arm PICC. Impression: Slightly worsening bilateral interstitial and airspace infiltrates versus edema, over one day 11/16/18 - chest x-ray Procedure: XRAY Chest 1v Indication: Dyspnea Technique: One view of the chest Comparison: November 14, 2018 Findings: Bilateral interstitial edema persists. Tracheostomy, right arm PICC remain. The heart is enlarged. Impression: Bilateral interstitial edema, unchanged over [address] abdomen and pelvis: Impression: No definite acute process Diverticulosis. No evidence of diverticulitis Extensive edema of the subcutaneous fat. 2 cm focal fluid collection/edema seen within the incision Moderate amount retained dense stool. Correlate with any clinical history of constipation Hiatal hernia. Gastrostomy Left renal parapelvic cysts Apparent prior hysterectomy Chest x-ray - 11/23/18 - Technique: One view of the chest Comparison: 11/20/2018 Findings: Less optimal inspiration currently, with resultant crowding of the bronchovascular markings. Interstitial congestion is probably not significantly changed, allowing for differences in exposure technique. Tracheostomy remains. Right arm PICC remains. Impression: Unchanged, over 3 days, findings as above. Chest x-ray - 11/26/18 - IMPRESSION: 1. Rotated film. Increased hazy opacity at the left lung and left retrocardiac opacity. 2. Decreased left pleural effusion. 3. Elevated right hemidiaphragm with probable pleural effusion and consolidation, similar. Microbiology Date/Time Source Procedure Growth Status 11/24/18 15:10 Blood Blood Culture - Preliminary NO GROWTH AFTER 72 HOURS Resulted 11/26/18 09:00 Sputum Gram Stain - Final Complete 11/26/18 09:00 Sputum Culture - Final Acinetobacter Baumanii - Mdr Providencia Stuartii Complete 11/24/18 13:45 Indwelling Cath Urine Culture - Final NO GROWTH AFTER 48 HOURS Complete 11/13/18 21:55 Catheter Site Catheter Tip Culture - Final Escherichia Coli Complete Microbiology Date/Time Source Procedure Growth Status 11/26/18 09:00 Sputum Gram Stain - Final Complete 11/26/18 09:00 Sputum Culture - Final Acinetobacter Baumanii - Mdr Providencia Stuartii Complete Laboratory Tests Test 11/27/18 21:00 11/28/18 04:00 Sodium Level 128 MMOL/L (136-145) L 126 MMOL/L (136-145) L Potassium Level 3.7 MMOL/L (3.5-5.1) 3.6 MMOL/L (3.5-5.1) Chloride Level 92 MMOL/L (98-107) L 90 MMOL/L (98-107) L Carbon Dioxide Level 32 MMOL/L (21-32) 32 MMOL/L (21-32) Anion Gap 4 mmol/L (5-15) L 4 mmol/L (5-15) L Blood Urea Nitrogen 13 mg/dL (7-18) 13 mg/dL (7-18) Creatinine 0.3 MG/DL (0.55-1.30) L 0.4 MG/DL (0.55-1.30) L Estimat Glomerular Filtration Rate mL/min (>60) mL/min (>60) Glucose Level 111 MG/DL (74-106) H 105 MG/DL (74-106) Calcium Level 7.6 MG/DL (8.5-10.1) L 7.8 MG/DL (8.5-10.1) L White Blood Count 10.2 K/UL (4.8-10.8) Red Blood Count 3.54 M/UL (4.20-5.40) L Hemoglobin 9.3 G/DL (12.0-16.0) L Hematocrit 26.7 % (37.0-47.0) L Mean Corpuscular Volume 76 FL (80-99) L Mean Corpuscular Hemoglobin 26.2 PG (27.0-31.0) L Mean Corpuscular Hemoglobin Concent 34.7 G/DL (32.0-36.0) Red Cell Distribution Width 19.8 % (11.6-14.8) H Platelet Count 280 K/UL (150-450) Mean Platelet Volume 5.5 FL (6.5-10.1) L Neutrophils (%) (Auto) 78.0 % (45.0-75.0) H Lymphocytes (%) (Auto) 10.3 % (20.0-45.0) L Monocytes (%) (Auto) 5.7 % (1.0-10.0) Eosinophils (%) (Auto) 5.4 % (0.0-3.0) H Basophils (%) (Auto) 0.7 % (0.0-2.0) Uric Acid 7.3 MG/DL (2.6-7.2) H Total Bilirubin 0.3 MG/DL (0.2-1.0) Aspartate Amino Transf (AST/SGOT) 186 U/L (15-37) H Alanine Aminotransferase (ALT/SGPT) 118 U/L (12-78) H Alkaline Phosphatase 544 U/L (46-116) H Total Protein 5.3 G/DL (6.4-8.2) L Albumin 1.0 G/DL (3.4-5.0) L Globulin 4.3 g/dL Albumin/Globulin Ratio 0.2 (1.0-2.7) L Current Medications Medications (Trade) Dose Ordered Sig/Lupe Route PRN Reason Start Time Stop Time Status Last Admin Dose Admin Acetaminophen (Tylenol) 650 mg Q4H PRN GT Mild Pain/Temp > 100.5 11/09/18 05:00 12/09/18 04:59 11/24/18 21:50 Amlodipine Besylate (Norvasc) 10 mg DAILY GT 11/09/18 09:00 12/09/18 08:59 11/28/18 08:25 Bisacodyl (Dulcolax) 10 mg DAILY PRN RECTAL Constipation 11/09/18 05:00 12/09/18 04:59 Calcium Carbonate (Tums) 500 mg EVERY 8 HOURS GT 11/09/18 14:00 12/09/18 08:59 11/28/18 06:05 Chlorhexidine Gluconate (Corazon-Hex 2%) 1 applic DAILY@2000 TOPIC 11/12/18 20:00 12/12/18 19:59 11/27/18 20:45 Dextrose (Dextrose 50%) 25 ml Q30M PRN IV Hypoglycemia 11/09/18 04:45 12/09/18 04:44 Dextrose (Dextrose 50%) 50 ml Q30M PRN IV Hypoglycemia 11/09/18 04:45 12/09/18 04:44 11/09/18 09:09 Enoxaparin Sodium (Lovenox) 40 mg DAILY SUBQ 11/09/18 09:00 12/09/18 08:59 11/28/18 08:32 Famotidine (Pepcid) 20 mg EVERY 12 HOURS GT 11/09/18 21:00 12/09/18 08:59 11/28/18 08:25 Hydralazine HCl (Apresoline) 5 mg EVERY 8 HOURS GT 11/09/18 06:00 12/09/18 05:59 11/28/18 06:04 Insulin Aspart (NovoLOG) Q6HR SUBQ 11/09/18 06:00 12/09/18 05:59 11/27/18 17:49 Insulin Detemir (Levemir) 4 units EVERY 12 HOURS SUBQ 11/16/18 21:00 12/09/18 08:59 11/28/18 08:27 Labetalol HCl (Normodyne) 200 mg Q8HR GT 11/09/18 06:00 12/09/18 05:59 11/28/18 06:05 Lactulose (Cephulac) 10 gm THREE TIMES A DAY GT 11/27/18 18:00 12/27/18 12:59 11/28/18 08:24 Levetiracetam (Keppra) 1,500 mg Q12HR GT 11/09/18 09:00 12/09/18 08:59 11/28/18 08:24 Magnesium Hydroxide (Mom) 30 ml DAILY PRN GT Constipation 11/09/18 05:00 12/09/18 04:59 Magnesium Oxide (Mag-Ox 400mg) 400 mg EVERY 8 HOURS GT 11/09/18 14:00 12/09/18 08:59 11/27/18 14:44 Metronidazole 100 ml @ 100 mls/hr Q8HR IVPB 11/26/18 14:00 12/03/18 13:59 11/28/18 06:07 Micafungin Sodium 100 mg/Sodium Chloride 100 ml @ 100 mls/hr Q24H IVPB 11/24/18 14:00 12/01/18 13:59 11/27/18 15:01 Ondansetron HCl (Zofran) 4 mg Q6H PRN GT Nausea & Vomiting 11/09/18 05:00 12/09/18 04:59 Phenobarbital (PHENobarbital) 60 mg BID GT 11/09/18 09:00 12/09/18 08:59 11/28/18 08:30 Phenytoin (Dilantin) 100 mg Q8HR GT 11/09/18 06:00 12/09/18 05:59 11/28/18 06:08 Polyethylene Glycol (Miralax) 17 gm DAILYPRN PRN GT Constipation 11/14/18 10:30 12/12/18 10:29 Polymyxin B Sulfate 619869 units/Dextrose 550 ml @ 550 mls/hr EVERY 12 HOURS IV 11/26/18 21:00 12/03/18 20:59 11/28/18 08:25 Sennosides (Senokot) 8.6 mg EVERY 12 HOURS GT 11/09/18 21:00 12/09/18 08:59 11/28/18 08:25 Sodium Chloride 1,000 ml @ 150 mls/hr Q6H40M IV 11/28/18 09:45 12/28/18 09:44 11/28/18 10:32 Valproic Acid (Depakene) 500 mg EVERY 8 HOURS GT 11/09/18 06:00 12/09/18 05:59 11/28/18 06:08 Vancomycin HCl (Vanco rx to dose) 1 ea DAILY PRN MISC Per rx protocol 11/24/18 13:00 12/24/18 12:59 Vancomycin HCl 1 gm/Dextrose 275 ml @ 183.708 mls/hr Q12HR@0400,1600 IVPB 11/25/18 16:00 11/30/18 15:59 11/28/18 04:50 Dasha Crews MD Nov 28, 2018 11:36
[2018-11-28 12:00] VITALS: BP 124/67
--- NOTE | 2018-11-28 12:15 | General Progress Note ---
Assessment/Plan Problem List: (1) Gram-negative pneumonia ICD Codes: J15.6 - Pneumonia due to other Gram-negative bacteria SNOMED: 369484269 (2) MRSA (methicillin resistant staphylococcus aureus) pneumonia ICD Codes: J15.212 - Pneumonia due to Methicillin resistant Staphylococcus aureus SNOMED: 711678647180732 (3) Fever ICD Codes: R50.9 - Fever, unspecified SNOMED: 570843041 (4) UTI (urinary tract infection) ICD Codes: N39.0 - Urinary tract infection, site not specified SNOMED: 25490051 (5) Tracheostomy dependence ICD Codes: Z93.0 - Tracheostomy status SNOMED: 699795209 (6) Ventilator dependence ICD Codes: Z99.11 - Dependence on respirator [ventilator] status SNOMED: 655610448 (7) Protein calorie malnutrition ICD Codes: E46 - Unspecified protein-calorie malnutrition SNOMED: 000349955 (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 SNOMED: 18557729 (9) Drug rash ICD Codes: L27.0 - Generalized skin eruption due to drugs and medicaments taken internally SNOMED: 42996222 (10) Line sepsis ICD Codes: T85.79XA - Infection and inflammatory reaction due to other internal prosthetic devices, implants and grafts, initial encounter; A41.9 - Sepsis, unspecified organism SNOMED: 88057068, 679834656 (11) Bacteremia ICD Codes: R78.81 - Bacteremia SNOMED: 6403392 (12) Hyponatremia ICD Codes: E87.1 - Hypo-osmolality and hyponatremia SNOMED: 98473572 (13) Sepsis ICD Codes: A41.9 - Sepsis, unspecified organism SNOMED: 02357499 (14) Seizure disorder ICD Codes: G40.909 - Epilepsy, unspecified, not intractable, without status epilepticus SNOMED: 997553440 (15) Diabetes ICD Codes: E11.9 - Type 2 diabetes mellitus without complications SNOMED: 47562853 (16) Colon adenocarcinoma ICD Codes: C18.9 - Malignant neoplasm of colon, unspecified SNOMED: 960540043 (17) Anoxic brain damage ICD Codes: G93.1 - Anoxic brain damage, not elsewhere classified SNOMED: 036608327 (18) Decubitus skin ulcer ICD Codes: L89.90 - Pressure ulcer of unspecified site, unspecified stage SNOMED: 394720726 Status: stable, progressing Assessment/Plan: 78-year-old female who is trach dependent who was brought in by long term for sepsis and found to have UTI and bacteremia. 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 fungal uti vs colonization ID consult appreciate Rec Vancomycin and Meropenem started 11/16 ( Zosyn stopped) , fungal coverage with Diflucan added 11/18. Repeat sputum cultures with RAULTELLA PLANTICOA and PROVIDENCIA STUARTI resistant to most antibiotics Developed morbilliform rash on meropenem, this was stopped and rash is better, has persistent fevers. Started Polymyxin and flagyl 11/21. Added vancomycin and micafungin on 11/24 picc cultures, no growth so far. repeat sputum cultures Organism 1 A.BAUMANII COMPLX - MDR GROWTH: 4+ Organism 2 PSEUDOMONAS AERUGINOSA ACIBCX-MDR PSE AERUGI M.I.C. RX M.I.C. RX --------- --- --------- --- CEFTAZIDIME >=64 R 2 S CEFTRIAXONE >=64 R CEFEPIME >=64 R <=1 S CIPROFLOXACIN >=4 R <=0.25 S GENTAMICIN >=16 R <=1 S LEVOFLOXACIN >=8 R 0.5 S IMIPENEM >=16 R >=16 R TRIMETHOPRIM/SULFA <=20 S AMIKACIN <=2 S PIPERACILLIN/TAZOBACTAM 8 S Discussed with daughter at bedside. CT abdomen pelvis shows no acute process Removed PICC and place new line 11/13/18 Echo to eval for vegetation negative Chest x-ray reviewed, no change #hyponatremia, hypotonic Hold lasix. IV NS @ 150, check serum sodium every 6 hours. Avoid overcorrection follow up urine osmol, serum urea, urine sodium nephrology consult with Dr. Diana Sommers. # Transaminitis - worsening, meds vs passive congestion - trend lft's - GI consult, appreciate recs - ab us: reviewed - hep panel negative #Elevated troponin secondary to sepsis versus ACS Cardiology consult, appreciate recs Medications per cardiology #Microcytic anemia- mixed anemia of chronic inflammation and iron deficiency. Start ferrous sulfate TID , transfused 1 uprbc 11/27 #Hypertension- improved Continue current medications, hydralazine as needed hypertension #Vent dependent Pulmonary consult, appreciate recs Vent management per pulmonary #Hypokalemia Replace, continue to monitor # Chronic tongue wound Supportive care On examination the patient has a sharp lower incisor present that is likely the culprit for the tongue laceration when she was intubated in the prior hospitalization at [facility] OMFS consultation Dr. Benavides completed ( no note left ) and I spoke with him over the phone after the visit. He does not recommend any surgery. ONLY bite block MOLT if available to decompress the tongue and get the remainder teeth out of the tongue way. Keep moisture in the lips and tongue. ENT consult difficult to obtain- pending # History of mood disorder Seen by psychiatry and on Depakote. Level was checked # Seizure history - Discussed with Dr. Eric who knew the patient from [facility] and confirmed that she did have seizure activity and was on multiple AED regimen. - Will continue Depakote ( 28 level ) and (Phenytoin 4.3 ) - no active seizure activity at this time. Keep current dose. - Both Dr. Eric and Mariana not available [place] [facility] [place] and not acute need at this time. #Diabetes Mellitus - glucose noted in the 90-110's - Decreased Levemir to 4 units q 12 hours # Disposition - SNF when cleared by ID. Full code Sit with family and discuss goals of care prognosis guarded timing of this note may not reflect time of encounter. I spent 40 minutes on this encounter. Great than 50 percent spent of care planning. Subjective Date patient seen: Nov 28, 2018 ROS Limited/Unobtainable: Yes Allergies: Coded Allergies: Crayfish (Unverified Allergy, Unknown, 11/11/18) Uncoded Allergies: Crawfish (Allergy, Unknown, 11/09/18) Subjective obtunded on vent, Fever curve better. Tmax 98.7 On broad spectrum antibiotics. Added micafungin and vancomycin 11/25/18 per ID fevers are better Unable to get ENT consult wbc trending down and normal Now with hyponatremia Worsening Anemia s/p 1 uprbc 11/27/18 picc culture no growth repeat sputum cultures: Organism 1 A.BAUMANII COMPLX - MDR GROWTH: 4+ Organism 2 PSEUDOMONAS AERUGINOSA ACIBCX-MDR PSE AERUGI M.I.C. RX M.I.C. RX --------- --- --------- --- CEFTAZIDIME >=64 R 2 S CEFTRIAXONE >=64 R CEFEPIME >=64 R <=1 S CIPROFLOXACIN >=4 R <=0.25 S GENTAMICIN >=16 R <=1 S LEVOFLOXACIN >=8 R 0.5 S IMIPENEM >=16 R >=16 R TRIMETHOPRIM/SULFA <=20 S AMIKACIN <=2 S PIPERACILLIN/TAZOBACTAM 8 S Objective Last 24 Hour Vital Signs Date Time Temp Pulse Resp B/P (MAP) Pulse Ox O2 Delivery O2 Flow Rate FiO2 11/28/18 11:25 89 26 30 11/28/18 08:55 90 20 30 11/28/18 08:25 85 126/58 11/28/18 08:00 30 11/28/18 08:00 Mechanical Ventilator 11/28/18 08:00 98.4 85 18 126/58 (80) 100 11/28/18 07:51 86 11/28/18 07:08 86 22 30 11/28/18 06:05 92 141/72 11/28/18 06:04 141/72 11/28/18 05:28 91 23 30 11/28/18 04:00 83 11/28/18 04:00 98.7 92 20 141/73 (95) 100 11/28/18 04:00 Mechanical Ventilator 11/28/18 04:00 30 11/28/18 03:02 84 26 30 11/28/18 01:05 81 24 30 11/28/18 00:00 98.7 85 20 130/70 (90) 100 11/28/18 00:00 30 11/28/18 00:00 83 11/28/18 00:00 Mechanical Ventilator 11/27/18 23:25 85 26 30 11/27/18 22:12 90 130/70 11/27/18 22:06 130/68 11/27/18 21:00 84 21 30 11/27/18 20:00 Mechanical Ventilator 11/27/18 20:00 85 11/27/18 20:00 98.7 90 20 125/68 (87) 100 11/27/18 18:45 82 21 30 11/27/18 17:08 90 30 30 11/27/18 16:00 90 11/27/18 16:00 Mechanical Ventilator 11/27/18 16:00 30 11/27/18 16:00 98.2 87 24 104/62 (76) 100 11/27/18 15:28 88 25 30 11/27/18 14:44 152/74 11/27/18 14:43 88 152/74 11/27/18 13:00 78 32 30 Intake and Output 11/27/18 11/28/18 18:59 06:59 Intake Total 2060.000 ml 1736 ml Output Total 700 ml Balance 2060.000 ml 1036 ml Intake Free Water 50 ml IV Total 1025.000 ml 836 ml Tube Feeding 715 ml 780 ml Blood Product 250 ml Other 20 ml 120 ml Output Urine Total 700 ml # Bowel Movements 2 3 Laboratory Tests 11/27/18 21:00: Sodium Level 128L, Potassium Level 3.7, Chloride Level 92L, Carbon Dioxide Level 32, Anion Gap 4L, Blood Urea Nitrogen 13, Creatinine 0.3L, Estimat Glomerular Filtration Rate , Glucose Level 111H, Calcium Level 7.6L 11/28/18 04:00: Sodium Level 126L, Potassium Level 3.6, Chloride Level 90L, Carbon Dioxide Level 32, Anion Gap 4L, Blood Urea Nitrogen 13, Creatinine 0.4L, Estimat Glomerular Filtration Rate , Glucose Level 105, Calcium Level 7.8L, White Blood Count 10.2, Red Blood Count 3.54L, Hemoglobin 9.3L, Hematocrit 26.7L, Mean Corpuscular Volume 76L, Mean Corpuscular Hemoglobin 26.2L, Mean Corpuscular Hemoglobin Concent 34.7, Red Cell Distribution Width 19.8H, Platelet Count 280, Mean Platelet Volume 5.5L, Neutrophils (%) (Auto) 78.0H, Lymphocytes (%) (Auto) 10.3L, Monocytes (%) (Auto) 5.7, Eosinophils (%) (Auto) 5.4H, Basophils (%) ( Auto) 0.7, Uric Acid 7.3H, Total Bilirubin 0.3, Aspartate Amino Transf (AST/SGOT ) 186H, Alanine Aminotransferase (ALT/SGPT) 118H, Alkaline Phosphatase 544H, Total Protein 5.3L, Albumin 1.0L, Globulin 4.3, Albumin/Globulin Ratio 0.2L Height (Feet): 5 Height (Inches): 8.00 Weight (Pounds): 210 Objective General Appearance: no apparent distress, other - unresponsive on vent EENT: PERRL/EOMI, other - enlarged tongue protruding, lower lip severely swollen Neck: supple Cardiovascular: normal rate, regular rhythm Respiratory/Chest: lungs clear Abdomen: soft Neurologic: unresponsive Skin: Morbilliform rash to bilateral upper extremities and thighs Neftaly Walters M.D. Nov 28, 2018 12:15
--- NOTE | 2018-11-28 13:04 | NUR ---
*-*DISCHARGE PLANNING *-* PATIENT HAS BEEN REFERRED TO: REINIER ROBBINS P:[phone] F:[phone]
[2018-11-28] MEDS: metroNIDAZOLE 500mg tab ORAL SCH ×2 (14:08→21:04)
[2018-11-28 16:00] VITALS: BP 130/73
[2018-11-28] MEDS: Vancomycin 1 GM in D5W 275 ML IVPB SCH (16:35)
--- NOTE | 2018-11-28 17:12 | Consultation ---
History of Present Illness General Date patient seen: Nov 28, 2018 Chief Complaint: Fever Referring physician: Dr. Jennifer Belle Reason for Consultation: VDRF Present Illness HPI Patient presents by paramedics from nursing facility with report of fevrs. sshe has a tracheostomy in place vent dependent and is not verbal Patient has a PICC line in the left upper arm there was no other reports of vomiting or diarrhea She was admitted for sepsis secondary to UTI and placed on Zosyn. Noted to have elevated troponin. Allergies: Coded Allergies: Crayfish (Unverified Allergy, Unknown, 11/11/18) Uncoded Allergies: Crawfish (Allergy, Unknown, 11/09/18) Medication History Scheduled Amlodipine Besylate (Norvasc), 10 MG GT DAILY, (Reported) Calcium Carbonate (Calcium), 500 MG GT TID, (Reported) Chlorhexidine Gluconate (Peridex), 15 ML MM TID, (Reported) Cranberry Fruit (Cranberry), 450 MG GT DAILY, (Reported) Enoxaparin (Lovenox), 40 MG SUBQ DAILY, (Reported) Famotidine (Famotidine), 20 MG GT TWICE A DAY, (Reported) Ferrous Sulfate (Ferosul), 7.5 ML GT DAILY, (Reported) Furosemide* (Lasix*), 40 MG GT TWICE A DAY, (Reported) Hydralazine Hcl* (Hydralazine Hcl*), 5 MG GT EVERY 8 HOURS, (Reported) Insulin Glargine (Lantus), 6 UNITS SUBQ BID, (Reported) Labetalol HCl (Labetalol HCl), 200 MG GT Q8HR, (Reported) Levetiracetam (Keppra), 15 ML GT Q12HR, (Reported) Magnesium Oxide (Magnesium Oxide), 400 MG GT TID, (Reported) Multivitamin with Minerals (Multivitamins with Minerals), 1 TAB GT DAILY, ( Reported) Phenobarbital* (Phenobarbital*), 60 MG GT BID, (Reported) Phenytoin (Dilantin-125), 100 MG GT Q8HR, (Reported) Psyllium Seed/Aspartame (Natural Fiber Powder), 5 ML GT DAILY, (Reported) Sennosides (Senna), 8.6 MG GT Q12H, (Reported) Valproate Sodium (Valproate Sodium), 500 MG GT Q8HR, (Reported) Vit C/Ascorbate Ca/Ascorb Sod (Vitamin C 500 Mg/15 Ml Liquid), 500 MG GT DAILY, (Reported) Scheduled PRN Acetaminophen* (Acetaminophen 325MG Tablet*), 650 MG GT Q4H PRN for Mild Pain/ Temp > 100.5, (Reported) Bisacodyl (Dulcolax), 10 MG RC DAILY PRN for Constipation, (Reported) Ipratropium Semora 0.5MG/2.5ML (Ipratropium Semora 0.5MG/2.5ML), 3 ML HHN Q2H PRN for Shortness of Breath, (Reported) Ipratropium Semora 0.5MG/2.5ML (Ipratropium Semora 0.5MG/2.5ML), 3 ML HHN Q6H PRN for Shortness of Breath, (Reported) Lorazepam* (Ativan*), 2 MG SL DAILY PRN for For Seizures, (Reported) Magnesium Hydroxide* (Milk Of Magnesia*), 30 ML GT DAILY PRN for Constipation, ( Reported) Ondansetron (Zofran), 4 MG GT Q6H PRN for Nausea & Vomiting, (Reported) Miscellaneous Medications Insulin Lispro (Humalog), 0 SUBQ, (Reported) Patient History Healthcare decision maker Resuscitation status Full Code Advanced Directive on File No Physical Exam Physical Exam Narrative General Appearance: no apparent distress, lethargic, on vent Neck: non-tender, normal alignment, supple, normal inspection, no JVD Rhythm: NSR Cardiovascular: normal peripheral pulses, regular rhythm, tachycardia Respiratory/Chest: chest wall non-tender, lungs clear, normal breath sounds Abdomen: normal bowel sounds, non tender, soft, no organomegaly, n Last 24 Hour Vital Signs Date Time Temp Pulse Resp B/P (MAP) Pulse Ox O2 Delivery O2 Flow Rate FiO2 11/28/18 16:48 98 27 30 11/28/18 16:00 Mechanical Ventilator 11/28/18 16:00 30 11/28/18 15:27 92 11/28/18 15:10 91 24 30 11/28/18 14:08 99 124/67 11/28/18 14:08 124/67 11/28/18 13:00 99 23 30 11/28/18 12:00 98.2 90 21 124/67 (86) 100 9/10/19 12:00 30 11/28/18 12:00 Mechanical Ventilator 11/28/18 11:40 91 11/28/18 11:25 89 26 30 11/28/18 08:55 90 20 30 11/28/18 08:25 85 126/58 11/28/18 08:00 30 11/28/18 08:00 Mechanical Ventilator 11/28/18 08:00 98.4 85 18 126/58 (80) 100 11/28/18 07:51 86 11/28/18 07:08 86 22 30 11/28/18 06:05 92 141/72 11/28/18 06:04 141/72 11/28/18 05:28 91 23 30 11/28/18 04:00 83 11/28/18 04:00 98.7 92 20 141/73 (95) 100 11/28/18 04:00 Mechanical Ventilator 11/28/18 04:00 30 11/28/18 03:02 84 26 30 11/28/18 01:05 81 24 30 11/28/18 00:00 98.7 85 20 130/70 (90) 100 11/28/18 00:00 30 11/28/18 00:00 83 11/28/18 00:00 Mechanical Ventilator 11/27/18 23:25 85 26 30 11/27/18 22:12 90 130/70 11/27/18 22:06 130/68 11/27/18 21:00 84 21 30 11/27/18 20:00 Mechanical Ventilator 11/27/18 20:00 85 11/27/18 20:00 98.7 90 20 125/68 (87) 100 11/27/18 18:45 82 21 30 Intake and Output 11/27/18 11/28/18 19:00 07:00 Intake Total 2060.000 ml 1736 ml Output Total 700 ml Balance 2060.000 ml 1036 ml Intake Free Water 50 ml IV Total 1025.000 ml 836 ml Tube Feeding 715 ml 780 ml Blood Product 250 ml Other 20 ml 120 ml Output Urine Total 700 ml # Bowel Movements 2 3 Laboratory Tests Test 11/27/18 21:00 11/28/18 04:00 11/28/18 15:45 Sodium Level 128 MMOL/L (136-145) L 126 MMOL/L (136-145) L Potassium Level 3.7 MMOL/L (3.5-5.1) 3.6 MMOL/L (3.5-5.1) Chloride Level 92 MMOL/L (98-107) L 90 MMOL/L (98-107) L Carbon Dioxide Level 32 MMOL/L (21-32) 32 MMOL/L (21-32) Anion Gap 4 mmol/L (5-15) L 4 mmol/L (5-15) L Blood Urea Nitrogen 13 mg/dL (7-18) 13 mg/dL (7-18) Creatinine 0.3 MG/DL (0.55-1.30) L 0.4 MG/DL (0.55-1.30) L Estimat Glomerular Filtration Rate mL/min (>60) mL/min (>60) Glucose Level 111 MG/DL (74-106) H 105 MG/DL (74-106) Calcium Level 7.6 MG/DL (8.5-10.1) L 7.8 MG/DL (8.5-10.1) L White Blood Count 10.2 K/UL (4.8-10.8) Red Blood Count 3.54 M/UL (4.20-5.40) L Hemoglobin 9.3 G/DL (12.0-16.0) L Hematocrit 26.7 % (37.0-47.0) L Mean Corpuscular Volume 76 FL (80-99) L Mean Corpuscular Hemoglobin 26.2 PG (27.0-31.0) L Mean Corpuscular Hemoglobin Concent 34.7 G/DL (32.0-36.0) Red Cell Distribution Width 19.8 % (11.6-14.8) H Platelet Count 280 K/UL (150-450) Mean Platelet Volume 5.5 FL (6.5-10.1) L Neutrophils (%) (Auto) 78.0 % (45.0-75.0) H Lymphocytes (%) (Auto) 10.3 % (20.0-45.0) L Monocytes (%) (Auto) 5.7 % (1.0-10.0) Eosinophils (%) (Auto) 5.4 % (0.0-3.0) H Basophils (%) (Auto) 0.7 % (0.0-2.0) Uric Acid 7.3 MG/DL (2.6-7.2) H Total Bilirubin 0.3 MG/DL (0.2-1.0) Aspartate Amino Transf (AST/SGOT) 186 U/L (15-37) H Alanine Aminotransferase (ALT/SGPT) 118 U/L (12-78) H Alkaline Phosphatase 544 U/L (46-116) H Total Protein 5.3 G/DL (6.4-8.2) L Albumin 1.0 G/DL (3.4-5.0) L Globulin 4.3 g/dL Albumin/Globulin Ratio 0.2 (1.0-2.7) L Urine Osmolality 291 mOsm/kg (429-449) L Urine Random Sodium 29 mmol/L (20-110) Height (Feet): 5 Height (Inches): 8.00 Weight (Pounds): 210 Medications Current Medications Medications (Trade) Dose Ordered Sig/Lupe Route PRN Reason Start Time Stop Time Status Last Admin Dose Admin Acetaminophen (Tylenol) 650 mg Q4H PRN GT Mild Pain/Temp > 100.5 11/09/18 05:00 12/09/18 04:59 11/24/18 21:50 Amlodipine Besylate (Norvasc) 10 mg DAILY GT 11/09/18 09:00 12/09/18 08:59 11/28/18 08:25 Bisacodyl (Dulcolax) 10 mg DAILY PRN RECTAL Constipation 11/09/18 05:00 12/09/18 04:59 Calcium Carbonate (Tums) 500 mg EVERY 8 HOURS GT 11/09/18 14:00 12/09/18 08:59 11/28/18 14:08 Chlorhexidine Gluconate (Corazon-Hex 2%) 1 applic DAILY@1999 TOPIC 11/12/18 20:00 12/12/18 19:59 11/27/18 20:45 Dextrose (Dextrose 50%) 25 ml Q30M PRN IV Hypoglycemia 11/09/18 04:45 12/09/18 04:44 Dextrose (Dextrose 50%) 50 ml Q30M PRN IV Hypoglycemia 11/09/18 04:45 12/09/18 04:44 11/09/18 09:09 Enoxaparin Sodium (Lovenox) 40 mg DAILY SUBQ 11/09/18 09:00 12/09/18 08:59 11/28/18 08:32 Famotidine (Pepcid) 20 mg EVERY 12 HOURS GT 11/09/18 21:00 12/09/18 08:59 11/28/18 08:25 Hydralazine HCl (Apresoline) 5 mg EVERY 8 HOURS GT 11/09/18 06:00 12/09/18 05:59 11/28/18 14:08 Insulin Aspart (NovoLOG) Q6HR SUBQ 11/09/18 06:00 12/09/18 05:59 11/28/18 12:26 Insulin Detemir (Levemir) 4 units EVERY 12 HOURS SUBQ 11/16/18 21:00 12/09/18 08:59 11/28/18 08:27 Labetalol HCl (Normodyne) 200 mg Q8HR GT 11/09/18 06:00 12/09/18 05:59 11/28/18 14:08 Lactulose (Cephulac) 10 gm THREE TIMES A DAY GT 11/27/18 18:00 12/27/18 12:59 11/28/18 12:23 Levetiracetam (Keppra) 1,500 mg Q12HR GT 11/09/18 09:00 12/09/18 08:59 11/28/18 08:24 Magnesium Hydroxide (Mom) 30 ml DAILY PRN GT Constipation 11/09/18 05:00 12/09/18 04:59 Magnesium Oxide (Mag-Ox 400mg) 400 mg EVERY 8 HOURS GT 11/09/18 14:00 12/09/18 08:59 11/28/18 14:08 Metronidazole (Flagyl) 500 mg EVERY 8 HOURS ORAL 11/28/18 14:00 12/05/18 13:59 11/28/18 14:08 Micafungin Sodium 100 mg/Sodium Chloride 100 ml @ 100 mls/hr Q24H IVPB 11/24/18 14:00 12/01/18 13:59 11/28/18 14:08 Ondansetron HCl (Zofran) 4 mg Q6H PRN GT Nausea & Vomiting 11/09/18 05:00 12/09/18 04:59 Phenobarbital (PHENobarbital) 60 mg BID GT 11/09/18 09:00 12/09/18 08:59 11/28/18 08:30 Phenytoin (Dilantin) 100 mg Q8HR GT 11/09/18 06:00 12/09/18 05:59 11/28/18 14:07 Polyethylene Glycol (Miralax) 17 gm DAILYPRN PRN GT Constipation 11/14/18 10:30 12/12/18 10:29 Polymyxin B Sulfate 646521 units/Dextrose 550 ml @ 550 mls/hr EVERY 12 HOURS IV 11/26/18 21:00 12/03/18 20:59 11/28/18 08:25 Sennosides (Senokot) 8.6 mg EVERY 12 HOURS GT 11/09/18 21:00 12/09/18 08:59 11/28/18 08:25 Sodium Chloride 1,000 ml @ 150 mls/hr Q6H40M IV 11/28/18 09:45 12/28/18 09:44 11/28/18 16:35 Valproic Acid (Depakene) 500 mg EVERY 8 HOURS GT 11/09/18 06:00 12/09/18 05:59 11/28/18 14:10 Vancomycin HCl (Vanco rx to dose) 1 ea DAILY PRN MISC Per rx protocol 11/28/18 11:45 12/28/18 11:44 Vancomycin HCl 1 gm/Dextrose 275 ml @ 183.708 mls/hr Q12HR@0400,1600 IVPB 11/28/18 16:00 12/03/18 15:59 11/28/18 16:35 Assessment/Plan Problem List: (1) Fever ICD Codes: R50.9 - Fever, unspecified SNOMED: 275664859 (2) Diabetes ICD Codes: E11.9 - Type 2 diabetes mellitus without complications SNOMED: 86747143 (3) Seizure disorder ICD Codes: G40.909 - Epilepsy, unspecified, not intractable, without status epilepticus SNOMED: 612402192 (4) HTN (hypertension) ICD Codes: I10 - Essential (primary) hypertension SNOMED: 47608787 (5) Tracheostomy dependence ICD Codes: Z93.0 - Tracheostomy status SNOMED: 525649234 (6) Anoxic brain damage ICD Codes: G93.1 - Anoxic brain damage, not elsewhere classified SNOMED: 951041180 (7) Hyponatremia ICD Codes: E87.1 - Hypo-osmolality and hyponatremia SNOMED: 00865665 Diagnosis Amory I: #hyponatremia- likely hypovolumic vs SIADH due to valproic acid - Agree with holding lasix - check serum osm - continue IV NS at 100 cc/hr, - monitor serum sodium q12hr. - urine osmol 281, urine sodium 29 - consider holding valproic acid as it can cause SIADH - check TSH - am cortisol #H/o HTN- controlled - labetolol 200mg TID - hydralazine 5 TID Diana Sommers M.D. Nov 28, 2018 17:12
--- NOTE | 2018-11-28 19:22 | NUR ---
HAND-OFF: Report given to Sadaf DESHPANDE. Pt. remain stable.
--- NOTE | 2018-11-28 19:23 | NUR ---
NURSE NOTES: Received bedside report from RomanRN.Patient stable,no fever,no s/s of pain,no respiratory distress at this moment,pt obtunded,trach Shiley 8 AC 14 TV 375 FiO2 30% PEEP 5 tolerated setting well,GT running with Glucerna 1.2 @65ml/hr,BS active in all quadrants,PICC line on KAITLYNN intact running @100ml/hr,will continue to monitor and follow POC.Bed secured in a low safety position,call light within a reach.
--- NOTE | 2018-11-28 19:30 | NUR ---
NURSE NOTES: Report given to CHARLEE Harris.Patient stable
--- NOTE | 2018-11-28 19:32 | NUR ---
NURSE NOTES: Received report from Sadaf RN, pt. 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 appears to be resting comfortably- comfort measures provided, bed alarm on, side rails x's3 and safety brakes locked in position, pt. appears to be tolerating current vent settings well- AC 14, TV 375, Fio2 @30% and peep 5- no distress noted, Side rails padded for seizure precautions- no seizure activity noted upon assessment, Glucerna 1.2 running via G tube at 65cc/hr- no residual noted, pt. is clean and dry, KAITLYNN PICC intact and patent- NS running at 100cc/hr, Safety measures continued, will continue with plan of care.
[2018-11-28 19:33] LABS: ANION GAP 5 mmol/L (5-15); BLOOD UREA NITROGEN 15 mg/dL (7-18); CALCIUM 7.8 MG/DL (8.5-10.1); CARBON DIOXIDE 30 MMOL/L (21-32); CHLORIDE 90 MMOL/L (98-107); CREATININE 0.4 MG/DL (0.55-1.30); POTASSIUM 3.3 MMOL/L (3.5-5.1); SODIUM 125 MMOL/L (136-145)
[2018-11-28 20:00] VITALS: BP 136/90
[2018-11-28] MEDS: Dyna-Hex 2% Top Sol 2oz TOPIC SCH (20:05)
[2018-11-29] VITALS: BP 115/59
[2018-11-29] MEDS: Vancomycin 1 GM in D5W 275 ML IVPB SCH ×2 (03:03→15:54)
[2018-11-29 04:00] VITALS: BP 132/72
[2018-11-29 04:26] LABS: BASOPHILS % (AUTO) 0.9 % (0.0-2.0); EOSINOPHILS % (AUTO) 5.1 % (0.0-3.0); HEMATOCRIT 25.8 % (37.0-47.0); HEMOGLOBIN 8.6 G/DL (12.0-16.0); LYMPHOCYTES % (AUTO) 10.3 % (20.0-45.0); MEAN CORPUSCULAR VOLUME 78 FL (80-99); MONOCYTES % (AUTO) 6.7 % (1.0-10.0); PLATELET COUNT 291 K/UL (150-450); RED BLOOD COUNT 3.33 M/UL (4.20-5.40); RED CELL DISTRIBUTION WIDTH 20.2 % (11.6-14.8); WHITE BLOOD COUNT 10.8 K/UL (4.8-10.8)
[2018-11-29 04:46] LABS: ALANINE AMINOTRANSFERASE 105 U/L (12-78); ALBUMIN 0.9 G/DL (3.4-5.0); ALBUMIN/GLOBULIN RATIO 0.2 (1.0-2.7); ALKALINE PHOSPHATASE 507 U/L (46-116); ANION GAP 5 mmol/L (5-15); ASPARTATE AMINO TRANSFERASE 158 U/L (15-37); BILIRUBIN,TOTAL 0.3 MG/DL (0.2-1.0); BLOOD UREA NITROGEN 15 mg/dL (7-18); CALCIUM 7.7 MG/DL (8.5-10.1); CARBON DIOXIDE 32 MMOL/L (21-32); CHLORIDE 91 MMOL/L (98-107); CREATININE 0.4 MG/DL (0.55-1.30); POTASSIUM 3.2 MMOL/L (3.5-5.1); SODIUM 128 MMOL/L (136-145)
[2018-11-29] MEDS: Tums 500mg GT SCH ×3 (05:06→21:58)
[2018-11-29] MEDS: Valproic Acid 250mg/5ml Liquid GT SCH (05:06)
[2018-11-29] MEDS: Magnesium Oxide 400mg tab GT SCH ×3 (05:06→21:58)
[2018-11-29] MEDS: Labetalol 200mg tab GT SCH ×3 (05:06→21:59)
[2018-11-29] MEDS: metroNIDAZOLE 500mg tab ORAL SCH ×3 (05:06→21:58)
[2018-11-29] MEDS: NovoLOG Insulin Flexpen SUBQ SCH ×4 (05:07→23:23)
[2018-11-29] MEDS: HydrALAZINE 10mg Tab GT SCH ×3 (05:44→21:59)
[2018-11-29] MEDS: Phenytoin Susp 100mg/4ml GT SCH ×3 (06:01→21:59)
--- NOTE | 2018-11-29 07:05 | NUR ---
RESPIRATORY NOTE: Received pt on ordered vent settings. Airway is patent and secured. No resp distress noted. Suctioned pt prn. Vent alarms are on and audible. Vent is plugged into red outlet. Will monitor pt progress.
--- NOTE | 2018-11-29 07:08 | NUR ---
HAND-OFF: Report given to Luis RN, pt. remains stable and no signs of distress noted- aware to f/u on potassium trending down.
--- NOTE | 2018-11-29 07:15 | NUR ---
NURSE NOTES: Report received from Pedro RN ,Pt asleep in bed,with trach tube to vent,on current settings,tolerated well,no sob,no resp distress presented.SR on the monitor,GTF Glucerna 1.2 at 65ml/hr,no residual noted,Ospina cath draining yellow urine, KAITLYNN PICC line intact,with IVF NS at 100 ml/hr ,skin warm , dry and scaly with top skin sloughing off,SR up x2 HOB elevated,bed lock in lowest position,will continue with plans of care.
[2018-11-29 07:52] VITALS: BP 128/61
[2018-11-29] MEDS: Sennosides 8.6mg tab GT SCH ×2 (09:03→20:25)
[2018-11-29] MEDS: levETIRAcetam 500mg/5ml Liquid GT SCH ×2 (09:05→20:24)
[2018-11-29] MEDS: PHENobarbital Elixir 30mg/7.5ml GT SCH ×2 (09:07→18:08)
[2018-11-29] MEDS: Polymyxin B Sulfate 500,000 UNITS in D5W 500ml 550 ML IV SCH ×2 (09:08→20:25)
[2018-11-29] MEDS: Enoxaparin 40mg Inj SUBQ SCH (09:08)
--- NOTE | 2018-11-29 09:09 | General Progress Note ---
Assessment/Plan Status: stable, progressing Assessment/Plan: (1) Abnormal LFTs ICD Codes: R94.5 - Abnormal results of liver function studies SNOMED: 149343872 (2) Decubitus skin ulcer ICD Codes: L89.90 - Pressure ulcer of unspecified site, unspecified stage SNOMED: 306939502 (3) Protein calorie malnutrition ICD Codes: E46 - Unspecified protein-calorie malnutrition SNOMED: 426368734 (4) Colon adenocarcinoma ICD Codes: C18.9 - Malignant neoplasm of colon, unspecified SNOMED: 451856483 (5) Sepsis ICD Codes: A41.9 - Sepsis, unspecified organism SNOMED: 36173453 (6) Tracheostomy dependence ICD Codes: Z93.0 - Tracheostomy status SNOMED: 591803802 (7) 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 Humphries. Assessment/Plan Assessment - Iron deficiency anemia - abnormal LFT - ? meds, passive congestion - dysphagia, s/p GT - Resp, failure, s/p Trach - hepatitis panel negative Recommendations - Continue TF - Monitor LFT - follow CBC - Conservative approach given poor healt- -CT and us reviewed Subjective ROS Limited/Unobtainable: No Allergies: Coded Allergies: Crayfish (Unverified Allergy, Unknown, 11/11/18) Uncoded Allergies: Crawfish (Allergy, Unknown, 11/09/18) Subjective fever last night had BM Objective Last 24 Hour Vital Signs Date Time Temp Pulse Resp B/P (MAP) Pulse Ox O2 Delivery O2 Flow Rate FiO2 11/29/18 07:52 97.3 77 18 128/61 (83) 100 11/29/18 07:05 80 20 30 11/29/18 05:44 100/56 11/29/18 05:06 92 134/69 11/29/18 04:34 84 21 30 11/29/18 04:00 30 11/29/18 04:00 87 11/29/18 04:00 98.2 89 20 132/72 (92) 100 11/29/18 04:00 Mechanical Ventilator 11/29/18 03:00 82 24 30 11/29/18 01:00 79 23 30 11/29/18 00:00 98.0 80 18 115/59 (77) 100 11/29/18 00:00 Mechanical Ventilator 11/29/18 00:00 30 11/29/18 00:00 82 11/28/18 23:01 81 21 30 11/28/18 22:08 30 11/28/18 22:00 112/57 11/28/18 21:06 88 130/90 11/28/18 20:35 88 22 30 11/28/18 20:00 30 11/28/18 20:00 98.2 88 18 136/90 (105) 100 11/28/18 20:00 Mechanical Ventilator 11/28/18 19:32 87 11/28/18 19:00 92 26 30 11/28/18 16:48 98 27 30 11/28/18 16:00 98.2 93 20 130/73 (92) 100 11/28/18 16:00 Mechanical Ventilator 11/28/18 16:00 30 11/28/18 15:27 92 11/28/18 15:10 91 24 30 11/28/18 14:08 99 124/67 11/28/18 14:08 124/67 11/28/18 13:00 99 23 30 11/28/18 12:00 98.2 90 21 124/67 (86) 100 11/28/18 12:00 30 11/28/18 12:00 Mechanical Ventilator 11/28/18 11:40 91 11/28/18 11:25 89 26 30 Intake and Output 11/28/18 11/29/18 19:00 07:00 Intake Total 885 ml 1886.416 ml Output Total 1300 ml 2950 ml Balance -415 ml -1063.584 ml Intake Free Water 200 ml 50 ml IV Total 100 ml 1316.416 ml Tube Feeding 585 ml 520 ml Output Urine Total 1300 ml 2950 ml # Bowel Movements 1 Laboratory Tests 11/28/18 15:45: Urine Osmolality 291L, Urine Random Sodium 29 11/28/18 18:25: Sodium Level 125L, Potassium Level 3.3L, Chloride Level 90L, Carbon Dioxide Level 30, Anion Gap 5, Blood Urea Nitrogen 15, Creatinine 0.4L, Estimat Glomerular Filtration Rate , Glucose Level 120H, Osmolality 263L, Calcium Level 7.8L, Thyroid Stimulating Hormone (TSH) 2.816 11/29/18 04:00: Sodium Level 128L, Potassium Level 3.2L, Chloride Level 91L, Carbon Dioxide Level 32, Anion Gap 5, Blood Urea Nitrogen 15, Creatinine 0.4L, Estimat Glomerular Filtration Rate , Glucose Level 108H, Calcium Level 7.7L, White Blood Count 10.8, Red Blood Count 3.33L, Hemoglobin 8.6L, Hematocrit 25.8L, Mean Corpuscular Volume 78L, Mean Corpuscular Hemoglobin 26.0L, Mean Corpuscular Hemoglobin Concent 33.4, Red Cell Distribution Width 20.2H, Platelet Count 291, Mean Platelet Volume 5.5L, Neutrophils (%) (Auto) 77.0H, Lymphocytes (%) (Auto) 10.3L, Monocytes (%) (Auto) 6.7, Eosinophils (%) (Auto) 5.1H, Basophils (%) (Auto) 0.9, Total Bilirubin 0.3, Aspartate Amino Transf (AST /SGOT) 158H, Alanine Aminotransferase (ALT/SGPT) 105H, Alkaline Phosphatase 507H , Total Protein 4.9L, Albumin 0.9L, Globulin 4.0, Albumin/Globulin Ratio 0.2L, Cortisol AM Sample [Pending] Height (Feet): 5 Height (Inches): 8.00 Weight (Pounds): 208 General Appearance: no apparent distress EENT: normal ENT inspection Neck: supple Cardiovascular: normal rate Respiratory/Chest: decreased breath sounds Abdomen: normal bowel sounds, non tender, soft Extremities: non-tender Casper Humphries MD Nov 29, 2018 09:09
[2018-11-29] MEDS: Levemir Flexpen SUBQ SCH ×2 (09:18→20:26)
[2018-11-29] MEDS: Lactulose 10gm/15ml UDC GT SCH ×3 (09:22→18:08)
--- NOTE | 2018-11-29 09:34 | General Progress Note ---
Assessment/Plan Problem List: (1) Gram-negative pneumonia ICD Codes: J15.6 - Pneumonia due to other Gram-negative bacteria SNOMED: 924851502 (2) MRSA (methicillin resistant staphylococcus aureus) pneumonia ICD Codes: J15.212 - Pneumonia due to Methicillin resistant Staphylococcus aureus SNOMED: 857757036062804 (3) Fever ICD Codes: R50.9 - Fever, unspecified SNOMED: 109620778 (4) UTI (urinary tract infection) ICD Codes: N39.0 - Urinary tract infection, site not specified SNOMED: 88334323 (5) Tracheostomy dependence ICD Codes: Z93.0 - Tracheostomy status SNOMED: 370780644 (6) Ventilator dependence ICD Codes: Z99.11 - Dependence on respirator [ventilator] status SNOMED: 135445656 (7) Protein calorie malnutrition ICD Codes: E46 - Unspecified protein-calorie malnutrition SNOMED: 747702694 (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 SNOMED: 69464970 (9) Drug rash ICD Codes: L27.0 - Generalized skin eruption due to drugs and medicaments taken internally SNOMED: 83061661 (10) Line sepsis ICD Codes: T85.79XA - Infection and inflammatory reaction due to other internal prosthetic devices, implants and grafts, initial encounter; A41.9 - Sepsis, unspecified organism SNOMED: 32720839, 018580683 (11) Bacteremia ICD Codes: R78.81 - Bacteremia SNOMED: 8389676 (12) Hyponatremia ICD Codes: E87.1 - Hypo-osmolality and hyponatremia SNOMED: 19096116 (13) Sepsis ICD Codes: A41.9 - Sepsis, unspecified organism SNOMED: 58222418 (14) Seizure disorder ICD Codes: G40.909 - Epilepsy, unspecified, not intractable, without status epilepticus SNOMED: 005710475 (15) Diabetes ICD Codes: E11.9 - Type 2 diabetes mellitus without complications SNOMED: 69751245 (16) Colon adenocarcinoma ICD Codes: C18.9 - Malignant neoplasm of colon, unspecified SNOMED: 461677347 (17) Anoxic brain damage ICD Codes: G93.1 - Anoxic brain damage, not elsewhere classified SNOMED: 709939914 (18) Decubitus skin ulcer ICD Codes: L89.90 - Pressure ulcer of unspecified site, unspecified stage SNOMED: 532740396 Status: stable, progressing Assessment/Plan: 78-year-old female who is trach dependent who was brought in by long term for sepsis and found to have UTI and bacteremia. 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 fungal uti vs colonization ID consult appreciate Rec Vancomycin and Meropenem started 11/16 ( Zosyn stopped) , fungal coverage with Diflucan added 11/18. Repeat sputum cultures with RAULTELLA PLANTICOA and PROVIDENCIA STUARTI resistant to most antibiotics Developed morbilliform rash on meropenem, this was stopped and rash is better, has persistent fevers. Started Polymyxin and flagyl 11/21. Added vancomycin and micafungin on 11/24 picc cultures, no growth so far. repeat sputum cultures Organism 1 A.BAUMANII COMPLX - MDR GROWTH: 4+ Organism 2 PSEUDOMONAS AERUGINOSA ACIBCX-MDR PSE AERUGI M.I.C. RX M.I.C. RX --------- --- --------- --- CEFTAZIDIME >=64 R 2 S CEFTRIAXONE >=64 R CEFEPIME >=64 R <=1 S CIPROFLOXACIN >=4 R <=0.25 S GENTAMICIN >=16 R <=1 S LEVOFLOXACIN >=8 R 0.5 S IMIPENEM >=16 R >=16 R TRIMETHOPRIM/SULFA <=20 S AMIKACIN <=2 S PIPERACILLIN/TAZOBACTAM 8 S Discussed with daughter at bedside. CT abdomen pelvis shows no acute process Removed PICC and place new line 11/13/18 Echo to eval for vegetation negative Chest x-ray reviewed, no change #hyponatremia, hypotonic. Either hypovolemic vs SIADH Hold lasix. IV NS @ 100 ml/hr, check serum sodium every 12 hours. Avoid overcorrection urine osmol, serum urea, urine sodium reviewed nephrology consult with Dr. Diana Sommers. # Transaminitis - worsening, meds vs passive congestion - trend lft's - GI consult, appreciate recs - ab us: reviewed - hep panel negative #Elevated troponin secondary to sepsis versus ACS Cardiology consult, appreciate recs Medications per cardiology #Microcytic anemia- mixed anemia of chronic inflammation and iron deficiency. Start ferrous sulfate TID , transfused 1 uprbc 11/27 #Hypertension- improved Continue current medications, hydralazine as needed hypertension #Vent dependent Pulmonary consult, appreciate recs Vent management per pulmonary #Hypokalemia Replace, continue to monitor # Chronic tongue wound Supportive care On examination the patient has a sharp lower incisor present that is likely the culprit for the tongue laceration when she was intubated in the prior hospitalization at [facility] OMFS consultation Dr. Benavides completed ( no note left ) and I spoke with him over the phone after the visit. He does not recommend any surgery. ONLY bite block MOLT if available to decompress the tongue and get the remainder teeth out of the tongue way. Keep moisture in the lips and tongue. ENT consult difficult to obtain- pending # History of mood disorder Seen by psychiatry and on Depakote. Level was checked # Seizure history - Discussed with Dr. Eric who knew the patient from [facility] and confirmed that she did have seizure activity and was on multiple AED regimen. - Will continue Depakote ( 28 level ) and (Phenytoin 4.3 ) - no active seizure activity at this time. Keep current dose. - Both Dr. Eric and Mariana not available to come to [facility] for consult and not acute need at this time. #Diabetes Mellitus - glucose noted in the 90-110's - Decreased Levemir to 4 units q 12 hours # Disposition - SNF when cleared by ID. Full code I discussed goals of care and current condition with daughter at bedside. prognosis guarded timing of this note may not reflect time of encounter. I spent 40 minutes on this encounter. Great than 50 percent spent of care planning. Subjective Date patient seen: Nov 29, 2018 ROS Limited/Unobtainable: Yes Allergies: Coded Allergies: Crayfish (Unverified Allergy, Unknown, 11/11/18) Uncoded Allergies: Crawfish (Allergy, Unknown, 11/09/18) Subjective obtunded on vent, afebrile On broad spectrum antibiotics. Added micafungin and vancomycin 11/25/18 per ID. fevers are better Unable to get ENT consult Now with hyponatremia. Started on IVF. Nephrology consulted Worsening Anemia s/p 1 uprbc 11/27/18 picc culture no growth repeat sputum cultures: Organism 1 A.BAUMANII COMPLX - MDR GROWTH: 4+ Organism 2 PSEUDOMONAS AERUGINOSA ACIBCX-MDR PSE AERUGI M.I.C. RX M.I.C. RX --------- --- --------- --- CEFTAZIDIME >=64 R 2 S CEFTRIAXONE >=64 R CEFEPIME >=64 R <=1 S CIPROFLOXACIN >=4 R <=0.25 S GENTAMICIN >=16 R <=1 S LEVOFLOXACIN >=8 R 0.5 S IMIPENEM >=16 R >=16 R TRIMETHOPRIM/SULFA <=20 S AMIKACIN <=2 S PIPERACILLIN/TAZOBACTAM 8 S I discussed her condition and prognosis at length with daughter at bedside. Objective Last 24 Hour Vital Signs Date Time Temp Pulse Resp B/P (MAP) Pulse Ox O2 Delivery O2 Flow Rate FiO2 11/29/18 09:04 77 128/61 11/29/18 07:52 97.3 77 18 128/61 (83) 100 11/29/18 07:05 80 20 30 11/29/18 05:44 100/56 11/29/18 05:06 92 134/69 11/29/18 04:34 84 21 30 11/29/18 04:00 30 11/29/18 04:00 87 11/29/18 04:00 98.2 89 20 132/72 (92) 100 11/29/18 04:00 Mechanical Ventilator 11/29/18 03:00 82 24 30 11/29/18 01:00 79 23 30 11/29/18 00:00 98.0 80 18 115/59 (77) 100 11/29/18 00:00 Mechanical Ventilator 11/29/18 00:00 30 11/29/18 00:00 82 11/28/18 23:01 81 21 30 11/28/18 22:08 30 11/28/18 22:00 112/57 11/28/18 21:06 88 130/90 11/28/18 20:35 88 22 30 11/28/18 20:00 30 11/28/18 20:00 98.2 88 18 136/90 (105) 100 11/28/18 20:00 Mechanical Ventilator 11/28/18 19:32 87 11/28/18 19:00 92 26 30 11/28/18 16:48 98 27 30 11/28/18 16:00 98.2 93 20 130/73 (92) 100 11/28/18 16:00 Mechanical Ventilator 11/28/18 16:00 30 11/28/18 15:27 92 11/28/18 15:10 91 24 30 11/28/18 14:08 99 124/67 11/28/18 14:08 124/67 11/28/18 13:00 99 23 30 11/28/18 12:00 98.2 90 21 124/67 (86) 100 11/28/18 12:00 30 11/28/18 12:00 Mechanical Ventilator 11/28/18 11:40 91 11/28/18 11:25 89 26 30 Intake and Output 11/28/18 11/29/18 19:00 07:00 Intake Total 885 ml 1886.416 ml Output Total 1300 ml 2950 ml Balance -415 ml -1063.584 ml Intake Free Water 200 ml 50 ml IV Total 100 ml 1316.416 ml Tube Feeding 585 ml 520 ml Output Urine Total 1300 ml 2950 ml # Bowel Movements 1 Laboratory Tests 11/28/18 15:45: Urine Osmolality 291L, Urine Random Sodium 29 11/28/18 18:25: Sodium Level 125L, Potassium Level 3.3L, Chloride Level 90L, Carbon Dioxide Level 30, Anion Gap 5, Blood Urea Nitrogen 15, Creatinine 0.4L, Estimat Glomerular Filtration Rate , Glucose Level 120H, Osmolality 263L, Calcium Level 7.8L, Thyroid Stimulating Hormone (TSH) 2.816 11/29/18 04:00: Sodium Level 128L, Potassium Level 3.2L, Chloride Level 91L, Carbon Dioxide Level 32, Anion Gap 5, Blood Urea Nitrogen 15, Creatinine 0.4L, Estimat Glomerular Filtration Rate , Glucose Level 108H, Calcium Level 7.7L, White Blood Count 10.8, Red Blood Count 3.33L, Hemoglobin 8.6L, Hematocrit 25.8L, Mean Corpuscular Volume 78L, Mean Corpuscular Hemoglobin 26.0L, Mean Corpuscular Hemoglobin Concent 33.4, Red Cell Distribution Width 20.2H, Platelet Count 291, Mean Platelet Volume 5.5L, Neutrophils (%) (Auto) 77.0H, Lymphocytes (%) (Auto) 10.3L, Monocytes (%) (Auto) 6.7, Eosinophils (%) (Auto) 5.1H, Basophils (%) (Auto) 0.9, Total Bilirubin 0.3, Aspartate Amino Transf (AST /SGOT) 158H, Alanine Aminotransferase (ALT/SGPT) 105H, Alkaline Phosphatase 507H , Total Protein 4.9L, Albumin 0.9L, Globulin 4.0, Albumin/Globulin Ratio 0.2L, Cortisol AM Sample [Pending] Height (Feet): 5 Height (Inches): 8.00 Weight (Pounds): 208 Objective General Appearance: no apparent distress, other - unresponsive on vent EENT: PERRL/EOMI, other - enlarged tongue protruding, lower lip severely swollen Neck: supple Cardiovascular: normal rate, regular rhythm Respiratory/Chest: lungs clear Abdomen: soft Neurologic: unresponsive Skin: Morbilliform rash to bilateral upper extremities and thighs Neftaly Walters M.D. Nov 29, 2018 09:34
--- NOTE | 2018-11-29 10:00 | NUR ---
NURSE NOTES: Pt's daughter at bedside,discussed with egg caser re Placement,pt will be going back to [facility].
--- NOTE | 2018-11-29 10:35 | Surgery Progress Note ---
Surgery Progress Note Subjective Additional Comments no acute events Objective Last 24 Hour Vital Signs Date Time Temp Pulse Resp B/P (MAP) Pulse Ox O2 Delivery O2 Flow Rate FiO2 11/29/18 09:04 77 128/61 11/29/18 08:55 82 22 30 11/29/18 08:02 74 11/29/18 08:00 6.0 30 11/29/18 08:00 Trach Collar 6.0 11/29/18 07:52 97.3 77 18 128/61 (83) 100 11/29/18 07:05 80 20 30 11/29/18 05:44 100/56 11/29/18 05:06 92 134/69 11/29/18 04:34 84 21 30 11/29/18 04:00 30 11/29/18 04:00 87 11/29/18 04:00 98.2 89 20 132/72 (92) 100 11/29/18 04:00 Mechanical Ventilator 11/29/18 03:00 82 24 30 11/29/18 01:00 79 23 30 11/29/18 00:00 98.0 80 18 115/59 (77) 100 11/29/18 00:00 Mechanical Ventilator 11/29/18 00:00 30 11/29/18 00:00 82 11/28/18 23:01 81 21 30 11/28/18 22:08 30 11/28/18 22:00 112/57 11/28/18 21:06 88 130/90 11/28/18 20:35 88 22 30 11/28/18 20:00 30 11/28/18 20:00 98.2 88 18 136/90 (105) 100 11/28/18 20:00 Mechanical Ventilator 11/28/18 19:32 87 11/28/18 19:00 92 26 30 11/28/18 16:48 98 27 30 11/28/18 16:00 98.2 93 20 130/73 (92) 100 11/28/18 16:00 Mechanical Ventilator 11/28/18 16:00 30 11/28/18 15:27 92 11/28/18 15:10 91 24 30 11/28/18 14:08 99 124/67 11/28/18 14:08 124/67 11/28/18 13:00 99 23 30 11/28/18 12:00 98.2 90 21 124/67 (86) 100 11/28/18 12:00 30 11/28/18 12:00 Mechanical Ventilator 11/28/18 11:40 91 11/28/18 11:25 89 26 30 I&O Intake and Output 11/28/18 11/29/18 19:00 07:00 Intake Total 885 ml 1886.416 ml Output Total 1300 ml 2950 ml Balance -415 ml -1063.584 ml Intake Free Water 200 ml 50 ml IV Total 100 ml 1316.416 ml Tube Feeding 585 ml 520 ml Output Urine Total 1300 ml 2950 ml # Bowel Movements 1 Dressing: saturated Wound: other Drains: other Cardiovascular: RSR Respiratory: clear, decreased breath sounds Abdomen: soft, present bowel sounds, non-distended Extremities: no cyanosis, other Laboratory Tests Test 11/28/18 15:45 11/28/18 18:25 11/29/18 04:00 Urine Osmolality 291 mOsm/kg (429-449) L Urine Random Sodium 29 mmol/L (20-110) Sodium Level 125 MMOL/L (136-145) L 128 MMOL/L (136-145) L Potassium Level 3.3 MMOL/L (3.5-5.1) L 3.2 MMOL/L (3.5-5.1) L Chloride Level 90 MMOL/L (98-107) L 91 MMOL/L (98-107) L Carbon Dioxide Level 30 MMOL/L (21-32) 32 MMOL/L (21-32) Anion Gap 5 mmol/L (5-15) 5 mmol/L (5-15) Blood Urea Nitrogen 15 mg/dL (7-18) 15 mg/dL (7-18) Creatinine 0.4 MG/DL (0.55-1.30) L 0.4 MG/DL (0.55-1.30) L Estimat Glomerular Filtration Rate mL/min (>60) mL/min (>60) Glucose Level 120 MG/DL (74-106) H 108 MG/DL (74-106) H Osmolality 263 mOsm/kg (297-317) L Calcium Level 7.8 MG/DL (8.5-10.1) L 7.7 MG/DL (8.5-10.1) L Thyroid Stimulating Hormone (TSH) 2.816 uiU/mL (0.358-3.740) White Blood Count 10.8 K/UL (4.8-10.8) Red Blood Count 3.33 M/UL (4.20-5.40) L Hemoglobin 8.6 G/DL (12.0-16.0) L Hematocrit 25.8 % (37.0-47.0) L Mean Corpuscular Volume 78 FL (80-99) L Mean Corpuscular Hemoglobin 26.0 PG (27.0-31.0) L Mean Corpuscular Hemoglobin Concent 33.4 G/DL (32.0-36.0) Red Cell Distribution Width 20.2 % (11.6-14.8) H Platelet Count 291 K/UL (150-450) Mean Platelet Volume 5.5 FL (6.5-10.1) L Neutrophils (%) (Auto) 77.0 % (45.0-75.0) H Lymphocytes (%) (Auto) 10.3 % (20.0-45.0) L Monocytes (%) (Auto) 6.7 % (1.0-10.0) Eosinophils (%) (Auto) 5.1 % (0.0-3.0) H Basophils (%) (Auto) 0.9 % (0.0-2.0) Total Bilirubin 0.3 MG/DL (0.2-1.0) Aspartate Amino Transf (AST/SGOT) 158 U/L (15-37) H Alanine Aminotransferase (ALT/SGPT) 105 U/L (12-78) H Alkaline Phosphatase 507 U/L (46-116) H Total Protein 4.9 G/DL (6.4-8.2) L Albumin 0.9 G/DL (3.4-5.0) L Globulin 4.0 g/dL Albumin/Globulin Ratio 0.2 (1.0-2.7) L Cortisol AM Sample 15.5 UG/DL Plan Problems: (1) Fever (2) Tongue abnormality Assessment & Plan: patients jaw clenched closed and tongue has been stuck for some time. tongue split from middle teeth and now in two. edema and unable to reduce keep tongue moist. apply lube jelly prn dryness. will monitor do not recommend surgical intervention for this current medical condition spoke with family. ENT plan to see. OMFS no intervention (3) Tracheostomy dependence (4) Sepsis Assessment & Plan: gb no stones 6mm polyp no acute surgical intervention planned trend labs improving labs improved DAILY ESTIMATED NEEDS: Needs based on Critical care, sepsis, wound 60kg adj 22-30 kcals/kg [id number] total kcals 1.25-2 g protein/kg 75-120 g total protein Fluid per MD, on lasix NUTRITION DIAGNOSIS: * Swallowing difficulty r/t respiratory status as evidenced by pt is vent dep via trach and PEG dep. * Increased kcal and pro needs r/t wound healing and sepsis as evidenced by pt w/ sacral and R heel wounds, febrile (Tmax 101.5). CURRENT TF: Jevity 1.2 @50 ml/hr x16 hrs ENTERAL NUTRITION RECOMMENDATIONS: Glucerna 1.2 @65ml/hr x18 hrs + Prosource x1 daily to provide 1170ml, 1404 kcal, 70g pro + 11g pro, 942 free H2O - REC TF CHANGE AND INCREASE TO BETTER MEET EST NEEDS - TF TO BE HELD FOR ONE HR BEFORE AND AFTER DILANTIN MEDS - START @20ML/HR, ADVANCE TOLERATED 15ML/HR Q4-6 HRS TO GOAL - FLUSH PER MD, HOB OVRE 30 DEGREES ADDITIONAL RECOMMENDATIONS: 1) CALIBRATED BED SCALE W/ ADDED P200 MATTRESS + PUMP 2) ON LASIX, MONITOR LYTES AND HYDRATION STATUS DAILY 3) TF TO RUN A MAX OF 18 HRS/DAY W/ DILANTIN TID PER PHARMACY 4) REC TF CHANGE TO CARB CONTROL FORMULA 5) WOUND CARE: ADD CHAYITO BID + VIT C 250MG DAILY (5) Fever Assessment & Plan: CT A/P with findings Impression: No definite acute process Diverticulosis. No evidence of diverticulitis Extensive edema of the subcutaneous fat. 2 cm focal fluid collection/edema seen within the incision Moderate amount retained dense stool. Correlate with any clinical history of constipation Hiatal hernia. Gastrostomy Left renal parapelvic cysts Apparent prior hysterectomy (6) Decubitus skin ulcer Assessment & Plan: Pt presented on admission with full thickness sacral pressure injury.Base of wound is 20% necrotic , 80% slough. borders are macerated . Mild odor noted. (L)8.4cm x (W) 6.5cm. Periwound skin tone is darker without erythema,induration or elevation in skin temp. Both heels are non -blanchable and both are fluctuant when palpated. Tx.Plan: Clean wound with saline. Apply Therahoney. Aply Moisture Barrier paste periwound. Cover with Optifoam drsg. Change every 3 days and prn. Apply Cavilon Skin BArrier to both heels. Cover each heel with Optifoam drsg. Change every 7 days and prn. APM/DEIRDRE mattress overlay. Reposition at least every 2hours or as tolerated. Off-load heels with pillow. will follow with recs thank you Preet Hylton Nov 29, 2018 10:35
--- NOTE | 2018-11-29 11:00 | NUR ---
Social Service Note Patient continues to require medical intervention. CM locating sub-acute placement for patient upon discharge from hospital. Patient awaiting court appointment of family member as conservator. No SW intervention indicated at this time. Will be available as indicted.
--- NOTE | 2018-11-29 11:00 | NUR ---
NURSE NOTES: WOCN Silverioa at bedside,assessed pt's wound,and dressing applied.PT with BM,bed bath given,turned and reposition,
--- NOTE | 2018-11-29 11:14 | Pulmonology Progress Note ---
Assessment/Plan Problems: (1) Ventilator dependence (2) Tracheostomy dependence (3) UTI (urinary tract infection) (4) Fever (5) Anoxic brain damage (6) Tongue abnormality (7) Seizure disorder (8) Colon adenocarcinoma (9) HTN (hypertension) (10) Sepsis (11) Diabetes (12) Abnormal LFTs (13) Protein calorie malnutrition (14) Gastrostomy in place (15) group home resident (16) Decubitus skin ulcer Assessment/Plan Continue ventilatory support/settings reviewed Titrate down FiO2 to keep SaO2 > 90% Optimize pulmonary hygiene/mobilize as tolerated RTC and PRN HHN's Abx per ID, F/U Cx's F/U cards recs Monitor volumes and renal function PRN lasix DVT Px: LMWH ENT eval pending FC, continue to discuss GOC Wound care Subjective Allergies: Coded Allergies: Crayfish (Unverified Allergy, Unknown, 11/11/18) Uncoded Allergies: Crawfish (Allergy, Unknown, 11/09/18) Subjective AFVSS stable on vent no sig secretions no distress Objective Last 24 Hour Vital Signs Date Time Temp Pulse Resp B/P (MAP) Pulse Ox O2 Delivery O2 Flow Rate FiO2 11/29/18 09:04 77 128/61 11/29/18 08:55 82 22 30 11/29/18 08:02 74 11/29/18 08:00 6.0 30 11/29/18 08:00 Trach Collar 6.0 11/29/18 07:52 97.3 77 18 128/61 (83) 100 11/29/18 07:05 80 20 30 11/29/18 05:44 100/56 11/29/18 05:06 92 134/69 11/29/18 04:34 84 21 30 11/29/18 04:00 30 11/29/18 04:00 87 11/29/18 04:00 98.2 89 20 132/72 (92) 100 11/29/18 04:00 Mechanical Ventilator 11/29/18 03:00 82 24 30 11/29/18 01:00 79 23 30 11/29/18 00:00 98.0 80 18 115/59 (77) 100 11/29/18 00:00 Mechanical Ventilator 11/29/18 00:00 30 11/29/18 00:00 82 11/28/18 23:01 81 21 30 11/28/18 22:08 30 11/28/18 22:00 112/57 11/28/18 21:06 88 130/90 11/28/18 20:35 88 22 30 11/28/18 20:00 30 11/28/18 20:00 98.2 88 18 136/90 (105) 100 11/28/18 20:00 Mechanical Ventilator 11/28/18 19:32 87 11/28/18 19:00 92 26 30 11/28/18 16:48 98 27 30 11/28/18 16:00 98.2 93 20 130/73 (92) 100 11/28/18 16:00 Mechanical Ventilator 11/28/18 16:00 30 11/28/18 15:27 92 11/28/18 15:10 91 24 30 11/28/18 14:08 99 124/67 11/28/18 14:08 124/67 11/28/18 13:00 99 23 30 11/28/18 12:00 98.2 90 21 124/67 (86) 100 11/28/18 12:00 30 11/28/18 12:00 Mechanical Ventilator 11/28/18 11:40 91 11/28/18 11:25 89 26 30 Intake and Output 11/28/18 11/29/18 19:00 07:00 Intake Total 885 ml 1886.416 ml Output Total 1300 ml 2950 ml Balance -415 ml -1063.584 ml Intake Free Water 200 ml 50 ml IV Total 100 ml 1316.416 ml Tube Feeding 585 ml 520 ml Output Urine Total 1300 ml 2950 ml # Bowel Movements 1 General Appearance: no acute distress, cachetic, other - non-verbal HEENT: normocephalic, status post trach, other - macroglossia, facial edema Respiratory/Chest: crackles/rales Cardiovascular: normal peripheral pulses, normal rate, regular rhythm Abdomen: normal bowel sounds, soft, non tender, no organomegaly, non distended , other - GT Extremities: no cyanosis, no clubbing, other - 1-2+ LEONORA Laboratory Tests 11/28/18 15:45: Urine Osmolality 291L, Urine Random Sodium 29 11/28/18 18:25: Sodium Level 125L, Potassium Level 3.3L, Chloride Level 90L, Carbon Dioxide Level 30, Anion Gap 5, Blood Urea Nitrogen 15, Creatinine 0.4L, Estimat Glomerular Filtration Rate , Glucose Level 120H, Osmolality 263L, Calcium Level 7.8L, Thyroid Stimulating Hormone (TSH) 2.816 11/29/18 04:00: Sodium Level 128L, Potassium Level 3.2L, Chloride Level 91L, Carbon Dioxide Level 32, Anion Gap 5, Blood Urea Nitrogen 15, Creatinine 0.4L, Estimat Glomerular Filtration Rate , Glucose Level 108H, Calcium Level 7.7L, White Blood Count 10.8, Red Blood Count 3.33L, Hemoglobin 8.6L, Hematocrit 25.8L, Mean Corpuscular Volume 78L, Mean Corpuscular Hemoglobin 26.0L, Mean Corpuscular Hemoglobin Concent 33.4, Red Cell Distribution Width 20.2H, Platelet Count 291, Mean Platelet Volume 5.5L, Neutrophils (%) (Auto) 77.0H, Lymphocytes (%) (Auto) 10.3L, Monocytes (%) (Auto) 6.7, Eosinophils (%) (Auto) 5.1H, Basophils (%) (Auto) 0.9, Total Bilirubin 0.3, Aspartate Amino Transf (AST /SGOT) 158H, Alanine Aminotransferase (ALT/SGPT) 105H, Alkaline Phosphatase 507H , Total Protein 4.9L, Albumin 0.9L, Globulin 4.0, Albumin/Globulin Ratio 0.2L, Cortisol AM Sample 15.5 Current Medications Medications (Trade) Dose Ordered Sig/Lupe Route PRN Reason Start Time Stop Time Status Last Admin Dose Admin Acetaminophen (Tylenol) 650 mg Q4H PRN GT Mild Pain/Temp > 100.5 11/09/18 05:00 12/09/18 04:59 11/24/18 21:50 Amlodipine Besylate (Norvasc) 10 mg DAILY GT 11/09/18 09:00 12/09/18 08:59 11/29/18 09:04 Bisacodyl (Dulcolax) 10 mg DAILY PRN RECTAL Constipation 11/09/18 05:00 12/09/18 04:59 Calcium Carbonate (Tums) 500 mg EVERY 8 HOURS GT 11/09/18 14:00 12/09/18 08:59 11/29/18 05:06 Chlorhexidine Gluconate (Corazon-Hex 2%) 1 applic DAILY@2000 TOPIC 11/12/18 20:00 12/12/18 19:59 11/28/18 20:05 Dextrose (Dextrose 50%) 25 ml Q30M PRN IV Hypoglycemia 11/09/18 04:45 12/09/18 04:44 Dextrose (Dextrose 50%) 50 ml Q30M PRN IV Hypoglycemia 11/09/18 04:45 12/09/18 04:44 11/09/18 09:09 Enoxaparin Sodium (Lovenox) 40 mg DAILY SUBQ 11/09/18 09:00 12/09/18 08:59 11/29/18 09:08 Famotidine (Pepcid) 20 mg EVERY 12 HOURS GT 11/09/18 21:00 12/09/18 08:59 11/29/18 09:04 Hydralazine HCl (Apresoline) 5 mg EVERY 8 HOURS GT 11/09/18 06:00 12/09/18 05:59 11/28/18 14:08 Insulin Aspart (NovoLOG) Q6HR SUBQ 11/09/18 06:00 12/09/18 05:59 11/29/18 05:07 Insulin Detemir (Levemir) 4 units EVERY 12 HOURS SUBQ 11/16/18 21:00 12/09/18 08:59 11/29/18 09:18 Labetalol HCl (Normodyne) 200 mg Q8HR GT 11/09/18 06:00 12/09/18 05:59 11/29/18 05:06 Lactulose (Cephulac) 10 gm THREE TIMES A DAY GT 11/27/18 18:00 12/27/18 12:59 11/29/18 09:22 Levetiracetam (Keppra) 1,500 mg Q12HR GT 11/09/18 09:00 12/09/18 08:59 11/29/18 09:05 Magnesium Hydroxide (Mom) 30 ml DAILY PRN GT Constipation 11/09/18 05:00 12/09/18 04:59 Magnesium Oxide (Mag-Ox 400mg) 400 mg EVERY 8 HOURS GT 11/09/18 14:00 12/09/18 08:59 11/29/18 05:06 Metronidazole (Flagyl) 500 mg EVERY 8 HOURS ORAL 11/28/18 14:00 12/05/18 13:59 11/29/18 05:06 Micafungin Sodium 100 mg/Sodium Chloride 100 ml @ 100 mls/hr Q24H IVPB 11/24/18 14:00 12/01/18 13:59 11/28/18 14:08 Ondansetron HCl (Zofran) 4 mg Q6H PRN GT Nausea & Vomiting 11/09/18 05:00 12/09/18 04:59 Phenobarbital (PHENobarbital) 60 mg BID GT 11/09/18 09:00 12/09/18 08:59 11/29/18 09:07 Phenytoin (Dilantin) 100 mg Q8HR GT 11/09/18 06:00 12/09/18 05:59 11/29/18 06:01 Polyethylene Glycol (Miralax) 17 gm DAILYPRN PRN GT Constipation 11/14/18 10:30 12/12/18 10:29 Polymyxin B Sulfate 833821 units/Dextrose 550 ml @ 550 mls/hr EVERY 12 HOURS IV 11/26/18 21:00 12/03/18 20:59 11/29/18 09:08 Sennosides (Senokot) 8.6 mg EVERY 12 HOURS GT 11/09/18 21:00 12/09/18 08:59 11/29/18 09:03 Sodium Chloride 1,000 ml @ 100 mls/hr Q10H IV 11/28/18 17:25 12/28/18 17:24 11/29/18 03:01 Vancomycin HCl (Vanco rx to dose) 1 ea DAILY PRN MISC Per rx protocol 11/28/18 11:45 12/28/18 11:44 Vancomycin HCl 1 gm/Dextrose 275 ml @ 183.708 mls/hr Q12HR@0400,1600 IVPB 11/28/18 16:00 12/03/18 15:59 11/29/18 03:03 Balbir Dejesus MD Nov 29, 2018 11:14
--- NOTE | 2018-11-29 11:40 | Infectious Diseases Prog Note ---
Assessment/Plan Assessment/Plan ASSESSMENT AND PLAN: 1. 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 fungal uti vs colonization, ? new line infection , ? new nosocomial infection - polymyxin and flagyl, vancomycin and micafungin - day # 6 abx - fever curve much better, leukocytosis resolved - previous picc line changed recently - 11/13/18 - CT scan without abscess or diverticulitis - sacral wound management per surgery - rash improved - ? enlarged tongue as source - ENT evaluation if possible 2. Trach-vent respiratory failure. 3. Dysphagia, G-tube. 4. Anemia. 5. Diabetes. 6. Hypertension. 7. Large tongue. 8. Anoxic brain injury. 9. Weakness. 10. Poorly responsive. 11. History of seizures. 12. History of colon adenocarcinoma. 13. Skin care protocol. 14. Allergy to crawfish. 15. Social history negative. 16. Family history noncontributory. 17. MAR was noted. 18. Case was discussed with RN. 19. Continue treatment per primary consultants. 20. Orders were ordered, entered, and noted. 21. Continue wound care protocol. 22. Continue blood sugar and blood pressure treatment per primary consultants for diabetes and hypertension. 23. vre colonization and isolation Subjective Constitutional: Reports: other - + trach and vent ; Denies: fever HEENT: Reports: congestion Respiratory: Reports: shortness of breath Cardiovascular: Reports: other Gastrointestinal/Abdominal: Denies: nausea, vomiting, diarrhea Genitourinary: Reports: other - + nava Allergies: Coded Allergies: Crayfish (Unverified Allergy, Unknown, 11/11/18) Uncoded Allergies: Crawfish (Allergy, Unknown, 11/09/18) Objective Vital Signs Last 24 Hour Vital Signs Date Time Temp Pulse Resp B/P (MAP) Pulse Ox O2 Delivery O2 Flow Rate FiO2 11/29/18 09:04 77 128/61 11/29/18 08:55 82 22 30 11/29/18 08:02 74 11/29/18 08:00 6.0 30 11/29/18 08:00 Trach Collar 6.0 11/29/18 07:52 97.3 77 18 128/61 (83) 100 11/29/18 07:05 80 20 30 11/29/18 05:44 100/56 11/29/18 05:06 92 134/69 11/29/18 04:34 84 21 30 11/29/18 04:00 30 11/29/18 04:00 87 11/29/18 04:00 98.2 89 20 132/72 (92) 100 11/29/18 04:00 Mechanical Ventilator 11/29/18 03:00 82 24 30 11/29/18 01:00 79 23 30 11/29/18 00:00 98.0 80 18 115/59 (77) 100 11/29/18 00:00 Mechanical Ventilator 11/29/18 00:00 30 11/29/18 00:00 82 11/28/18 23:01 81 21 30 11/28/18 22:08 30 11/28/18 22:00 112/57 11/28/18 21:06 88 130/90 11/28/18 20:35 88 22 30 11/28/18 20:00 30 11/28/18 20:00 98.2 88 18 136/90 (105) 100 11/28/18 20:00 Mechanical Ventilator 11/28/18 19:32 87 11/28/18 19:00 92 26 30 11/28/18 16:48 98 27 30 11/28/18 16:00 98.2 93 20 130/73 (92) 100 11/28/18 16:00 Mechanical Ventilator 11/28/18 16:00 30 11/28/18 15:27 92 11/28/18 15:10 91 24 30 11/28/18 14:08 99 124/67 11/28/18 14:08 124/67 11/28/18 13:00 99 23 30 11/28/18 12:00 98.2 90 21 124/67 (86) 100 11/28/18 12:00 30 11/28/18 12:00 Mechanical Ventilator 11/28/18 11:40 91 Height (Feet): 5 Height (Inches): 8.00 Weight (Pounds): 208 General Appearance: no acute distress HEENT: normocephalic, atraumatic, anicteric, no JVD, status post trach, other - tongue enlarged Respiratory/Chest: crackles/rales, rhonchi - bilaterally Cardiovascular: normal rate, regular rhythm Abdomen: normal bowel sounds, soft, non tender, no organomegaly Objective 11/11/18 - chest x-ray - IMPRESSION: 1. Hypoventilatory lungs. Elevated right hemidiaphragm. Slightly improved vascular congestion. Similar bibasilar lung atelectasis and airspace disease. 2. Query right pleural effusion. 2-D echo - no vegetations mentioned, report noted sacral x-ray - no osteo mentioned, report noted 11/14/18 - Technique: One view of the chest Comparison: November 13, 2018 post PICC radiograph Findings: Bilateral interstitial and alveolar edema versus infiltrates appear slightly worse. There is increasing obscuration of left hemidiaphragm, may reflect increasing pleural fluid as well. The heart remains enlarged. Previously demonstrated left arm PICC has been removed. Stable right arm PICC. Impression: Slightly worsening bilateral interstitial and airspace infiltrates versus edema, over one day 11/16/18 - chest x-ray Procedure: XRAY Chest 1v Indication: Dyspnea Technique: One view of the chest Comparison: November 14, 2018 Findings: Bilateral interstitial edema persists. Tracheostomy, right arm PICC remain. The heart is enlarged. Impression: Bilateral interstitial edema, unchanged over [address] abdomen and pelvis: Impression: No definite acute process Diverticulosis. No evidence of diverticulitis Extensive edema of the subcutaneous fat. 2 cm focal fluid collection/edema seen within the incision Moderate amount retained dense stool. Correlate with any clinical history of constipation Hiatal hernia. Gastrostomy Left renal parapelvic cysts Apparent prior hysterectomy Chest x-ray - 11/23/18 - Technique: One view of the chest Comparison: 11/20/2018 Findings: Less optimal inspiration currently, with resultant crowding of the bronchovascular markings. Interstitial congestion is probably not significantly changed, allowing for differences in exposure technique. Tracheostomy remains. Right arm PICC remains. Impression: Unchanged, over 3 days, findings as above. Chest x-ray - 11/26/18 - IMPRESSION: 1. Rotated film. Increased hazy opacity at the left lung and left retrocardiac opacity. 2. Decreased left pleural effusion. 3. Elevated right hemidiaphragm with probable pleural effusion and consolidation, similar. Laboratory Tests Test 11/28/18 15:45 11/28/18 18:25 11/29/18 04:00 Urine Osmolality 291 mOsm/kg (429-449) L Urine Random Sodium 29 mmol/L (20-110) Sodium Level 125 MMOL/L (136-145) L 128 MMOL/L (136-145) L Potassium Level 3.3 MMOL/L (3.5-5.1) L 3.2 MMOL/L (3.5-5.1) L Chloride Level 90 MMOL/L (98-107) L 91 MMOL/L (98-107) L Carbon Dioxide Level 30 MMOL/L (21-32) 32 MMOL/L (21-32) Anion Gap 5 mmol/L (5-15) 5 mmol/L (5-15) Blood Urea Nitrogen 15 mg/dL (7-18) 15 mg/dL (7-18) Creatinine 0.4 MG/DL (0.55-1.30) L 0.4 MG/DL (0.55-1.30) L Estimat Glomerular Filtration Rate mL/min (>60) mL/min (>60) Glucose Level 120 MG/DL (74-106) H 108 MG/DL (74-106) H Osmolality 263 mOsm/kg (297-317) L Calcium Level 7.8 MG/DL (8.5-10.1) L 7.7 MG/DL (8.5-10.1) L Thyroid Stimulating Hormone (TSH) 2.816 uiU/mL (0.358-3.740) White Blood Count 10.8 K/UL (4.8-10.8) Red Blood Count 3.33 M/UL (4.20-5.40) L Hemoglobin 8.6 G/DL (12.0-16.0) L Hematocrit 25.8 % (37.0-47.0) L Mean Corpuscular Volume 78 FL (80-99) L Mean Corpuscular Hemoglobin 26.0 PG (27.0-31.0) L Mean Corpuscular Hemoglobin Concent 33.4 G/DL (32.0-36.0) Red Cell Distribution Width 20.2 % (11.6-14.8) H Platelet Count 291 K/UL (150-450) Mean Platelet Volume 5.5 FL (6.5-10.1) L Neutrophils (%) (Auto) 77.0 % (45.0-75.0) H Lymphocytes (%) (Auto) 10.3 % (20.0-45.0) L Monocytes (%) (Auto) 6.7 % (1.0-10.0) Eosinophils (%) (Auto) 5.1 % (0.0-3.0) H Basophils (%) (Auto) 0.9 % (0.0-2.0) Total Bilirubin 0.3 MG/DL (0.2-1.0) Aspartate Amino Transf (AST/SGOT) 158 U/L (15-37) H Alanine Aminotransferase (ALT/SGPT) 105 U/L (12-78) H Alkaline Phosphatase 507 U/L (46-116) H Total Protein 4.9 G/DL (6.4-8.2) L Albumin 0.9 G/DL (3.4-5.0) L Globulin 4.0 g/dL Albumin/Globulin Ratio 0.2 (1.0-2.7) L Cortisol AM Sample 15.5 UG/DL Current Medications Medications (Trade) Dose Ordered Sig/Lupe Route PRN Reason Start Time Stop Time Status Last Admin Dose Admin Acetaminophen (Tylenol) 650 mg Q4H PRN GT Mild Pain/Temp > 100.5 11/09/18 05:00 12/09/18 04:59 11/24/18 21:50 Amlodipine Besylate (Norvasc) 10 mg DAILY GT 11/09/18 09:00 12/09/18 08:59 11/29/18 09:04 Bisacodyl (Dulcolax) 10 mg DAILY PRN RECTAL Constipation 11/09/18 05:00 12/09/18 04:59 Calcium Carbonate (Tums) 500 mg EVERY 8 HOURS GT 11/09/18 14:00 12/09/18 08:59 11/29/18 05:06 Chlorhexidine Gluconate (Corazon-Hex 2%) 1 applic DAILY@1999 TOPIC 11/12/18 20:00 12/12/18 19:59 11/28/18 20:05 Dextrose (Dextrose 50%) 25 ml Q30M PRN IV Hypoglycemia 11/09/18 04:45 12/09/18 04:44 Dextrose (Dextrose 50%) 50 ml Q30M PRN IV Hypoglycemia 11/09/18 04:45 12/09/18 04:44 11/09/18 09:09 Enoxaparin Sodium (Lovenox) 40 mg DAILY SUBQ 8/22/19 09:00 12/09/18 08:59 11/29/18 09:08 Famotidine (Pepcid) 20 mg EVERY 12 HOURS GT 11/09/18 21:00 12/09/18 08:59 11/29/18 09:04 Hydralazine HCl (Apresoline) 5 mg EVERY 8 HOURS GT 11/09/18 06:00 12/09/18 05:59 11/28/18 14:08 Insulin Aspart (NovoLOG) Q6HR SUBQ 11/09/18 06:00 12/09/18 05:59 11/29/18 05:07 Insulin Detemir (Levemir) 4 units EVERY 12 HOURS SUBQ 11/16/18 21:00 12/09/18 08:59 11/29/18 09:18 Labetalol HCl (Normodyne) 200 mg Q8HR GT 11/09/18 06:00 12/09/18 05:59 11/29/18 05:06 Lactulose (Cephulac) 10 gm THREE TIMES A DAY GT 11/27/18 18:00 12/27/18 12:59 11/29/18 09:22 Levetiracetam (Keppra) 1,500 mg Q12HR GT 11/09/18 09:00 12/09/18 08:59 11/29/18 09:05 Magnesium Hydroxide (Mom) 30 ml DAILY PRN GT Constipation 11/09/18 05:00 12/09/18 04:59 Magnesium Oxide (Mag-Ox 400mg) 400 mg EVERY 8 HOURS GT 11/09/18 14:00 12/09/18 08:59 11/29/18 05:06 Metronidazole (Flagyl) 500 mg EVERY 8 HOURS ORAL 11/28/18 14:00 12/05/18 13:59 11/29/18 05:06 Micafungin Sodium 100 mg/Sodium Chloride 100 ml @ 100 mls/hr Q24H IVPB 11/24/18 14:00 12/01/18 13:59 11/28/18 14:08 Ondansetron HCl (Zofran) 4 mg Q6H PRN GT Nausea & Vomiting 11/09/18 05:00 12/09/18 04:59 Phenobarbital (PHENobarbital) 60 mg BID GT 11/09/18 09:00 12/09/18 08:59 11/29/18 09:07 Phenytoin (Dilantin) 100 mg Q8HR GT 11/09/18 06:00 12/09/18 05:59 11/29/18 06:01 Polyethylene Glycol (Miralax) 17 gm DAILYPRN PRN GT Constipation 11/14/18 10:30 12/12/18 10:29 Polymyxin B Sulfate 774168 units/Dextrose 550 ml @ 550 mls/hr EVERY 12 HOURS IV 11/26/18 21:00 12/03/18 20:59 11/29/18 09:08 Sennosides (Senokot) 8.6 mg EVERY 12 HOURS GT 11/09/18 21:00 12/09/18 08:59 11/29/18 09:03 Sodium Chloride 1,000 ml @ 100 mls/hr Q10H IV 11/28/18 17:25 12/28/18 17:24 11/29/18 03:01 Vancomycin HCl (Vanco rx to dose) 1 ea DAILY PRN MISC Per rx protocol 11/28/18 11:45 12/28/18 11:44 Vancomycin HCl 1 gm/Dextrose 275 ml @ 183.708 mls/hr Q12HR@0400,1600 IVPB 11/28/18 16:00 12/03/18 15:59 11/29/18 03:03 Dasha Crews MD Nov 29, 2018 11:40
[2018-11-29 12:00] VITALS: BP 127/70
--- NOTE | 2018-11-29 13:00 | NUR ---
NURSE NOTES: Oral/tracheal secretions suctioned to thick whitish secretions.
--- NOTE | 2018-11-29 13:11 | NUR ---
*-* DISCHARGE PLANNING *-* PATIENT HAS BEEN REFERRED TO: FRANCESCA MAIER P: [phone] F: [phone]
[2018-11-29] MEDS ORDERED: Tubing IV Secondary IV ONE (13:29)
[2018-11-29] MEDS ORDERED: NS 275ml ONE (13:29)
[2018-11-29] MEDS ORDERED: NS 500ML ONE (13:29)
--- NOTE | 2018-11-29 14:30 | NUR ---
NURSE NOTES:WOUND CARE FOLLOW-UP NOTES:Stable dry eschar noted to L earlobe (L)1cm x (W)0.6cm. Full thickness wound with 100% soft necrosis noted inferior, but in close proximity to tracheal stoma.(L)2cm x (W)1.5cm. Full thickness sacral pressure injury . Base of wound 75% necrotic 25% pink granulation. Periwound skin is dark without induration. NO odor or exudate noted.Both heels are soft but blanchable.Wound Tx are effective and continued as ordered. Pt has an APM/DEIRDRE mattress overlay on her bed. Both heels are floated off bed with pillows.
--- NOTE | 2018-11-29 14:54 | Nephrology Progress Note ---
Assessment/Plan Problem List: (1) Fever (2) Diabetes (3) Seizure disorder (4) HTN (hypertension) (5) Tracheostomy dependence (6) Anoxic brain damage (7) Hyponatremia Plan #hyponatremia- likely hypovolumic vs SIADH due to valproic acid- hypo-osmolar - Agree with holding lasix for now - Decrease IV NS to 75 cc/hr, - urine osmol 281, urine sodium 29 - consider holding valproic acid as it can cause SIADH - am cortisol WNL #H/o HTN- controlled - amlodipine 10mg daily - labetalol 200mg TID - hydralazine 5 TID #Hypokalemia - Kcl 40 meq today Subjective ROS Limited/Unobtainable: Yes Subjective sodium 129 today K 3.2 BP stable Objective Objective Last 24 Hour Vital Signs Date Time Temp Pulse Resp B/P (MAP) Pulse Ox O2 Delivery O2 Flow Rate FiO2 11/29/18 14:09 78 127/70 11/29/18 14:08 127/70 11/29/18 12:03 78 11/29/18 12:00 6.0 30 11/29/18 12:00 97.2 79 20 127/70 (89) 100 11/29/18 12:00 Trach Collar 6.0 11/29/18 11:30 83 22 30 11/29/18 09:04 77 128/61 11/29/18 08:55 82 22 30 11/29/18 08:02 74 11/29/18 08:00 6.0 30 11/29/18 08:00 Trach Collar 6.0 11/29/18 07:52 97.3 77 18 128/61 (83) 100 11/29/18 07:05 80 20 30 11/29/18 05:44 100/56 11/29/18 05:06 92 134/69 11/29/18 04:34 84 21 30 11/29/18 04:00 30 11/29/18 04:00 87 11/29/18 04:00 98.2 89 20 132/72 (92) 100 11/29/18 04:00 Mechanical Ventilator 11/29/18 03:00 82 24 30 11/29/18 01:00 79 23 30 11/29/18 00:00 98.0 80 18 115/59 (77) 100 11/29/18 00:00 Mechanical Ventilator 11/29/18 00:00 30 11/29/18 00:00 82 11/28/18 23:01 81 21 30 11/28/18 22:08 30 11/28/18 22:00 112/57 11/28/18 21:06 88 130/90 11/28/18 20:35 88 22 30 11/28/18 20:00 30 11/28/18 20:00 98.2 88 18 136/90 (105) 100 11/28/18 20:00 Mechanical Ventilator 11/28/18 19:32 87 11/28/18 19:00 92 26 30 11/28/18 16:48 98 27 30 11/28/18 16:00 98.2 93 20 130/73 (92) 100 11/28/18 16:00 Mechanical Ventilator 11/28/18 16:00 30 11/28/18 15:27 92 11/28/18 15:10 91 24 30 Intake and Output 11/28/18 11/29/18 19:00 07:00 Intake Total 885 ml 1886.416 ml Output Total 1300 ml 2950 ml Balance -415 ml -1063.584 ml Intake Free Water 200 ml 50 ml IV Total 100 ml 1316.416 ml Tube Feeding 585 ml 520 ml Output Urine Total 1300 ml 2950 ml # Bowel Movements 1 Laboratory Tests 11/28/18 15:45: Urine Osmolality 291L, Urine Random Sodium 29 11/28/18 18:25: Sodium Level 125L, Potassium Level 3.3L, Chloride Level 90L, Carbon Dioxide Level 30, Anion Gap 5, Blood Urea Nitrogen 15, Creatinine 0.4L, Estimat Glomerular Filtration Rate , Glucose Level 120H, Osmolality 263L, Calcium Level 7.8L, Thyroid Stimulating Hormone (TSH) 2.816 11/29/18 04:00: Sodium Level 128L, Potassium Level 3.2L, Chloride Level 91L, Carbon Dioxide Level 32, Anion Gap 5, Blood Urea Nitrogen 15, Creatinine 0.4L, Estimat Glomerular Filtration Rate , Glucose Level 108H, Calcium Level 7.7L, White Blood Count 10.8, Red Blood Count 3.33L, Hemoglobin 8.6L, Hematocrit 25.8L, Mean Corpuscular Volume 78L, Mean Corpuscular Hemoglobin 26.0L, Mean Corpuscular Hemoglobin Concent 33.4, Red Cell Distribution Width 20.2H, Platelet Count 291, Mean Platelet Volume 5.5L, Neutrophils (%) (Auto) 77.0H, Lymphocytes (%) (Auto) 10.3L, Monocytes (%) (Auto) 6.7, Eosinophils (%) (Auto) 5.1H, Basophils (%) (Auto) 0.9, Total Bilirubin 0.3, Aspartate Amino Transf (AST /SGOT) 158H, Alanine Aminotransferase (ALT/SGPT) 105H, Alkaline Phosphatase 507H , Total Protein 4.9L, Albumin 0.9L, Globulin 4.0, Albumin/Globulin Ratio 0.2L, Cortisol AM Sample 15.5 Height (Feet): 5 Height (Inches): 8.00 Weight (Pounds): 208 Objective General Appearance: no apparent distress, lethargic, + trach Neck: non-tender, normal alignment, supple, normal inspection, no JVD Rhythm: NSR Cardiovascular: normal peripheral pulses, regular rhythm, tachycardia Respiratory/Chest: biltateral faint wheezes Abdomen: normal bowel sounds, non tender, soft, + PEG Diana Sommers M.D. Nov 29, 2018 14:54
--- NOTE | 2018-11-29 15:13 | Hematology/Onc Progress Note ---
Assessment/Plan Assessment/Plan # Anemia of chronic disease due to underlying chronic medical issues, multifactorial --> Anemia workup has been reviewed and cw acd --> No evidence of hemolysis is noted, peripheral smear has been reviewed. --> Hgb goal >7. Transfuse prn. --> hgb trend 9.1-->8.9-->9-->8.9-->8.9->7.8->8.7-->9-->8-->7.5-->9.3->8.6 --> Epogen or iron indication prn --> Medications have been reviewed --> low threshold for gi evaluation and occult is negative --> bone marrow biopsy is not indicated given the other more likely causes # Leukocytosis iwth Sepsis secondary to UTI, GPC Staph Epidermidis bacteremia, Line associated infection - patient arrived to the Hospital with PICC --> as per ID consult appreciate Rec --> Continue antibiotics per ID: Continue Zosyn and vancomycin, anti fungal added--> kaykay/vanc, diflucan-->flagyl, vanc, polymyxin--> omid/flafgyl/polym/ vanc --> imaging noted --> now improved # Thrombocytosis is likely due to underlying reactive process --> if doesn't improve send off jak2 --> plt count 641k-->402k-->344-->275k-->280k # Transaminitis --> trend lft's --> GI consult, apprec recs --> ab us: reviewed # Elevated troponin secondary to sepsis versus ACS --> as per Cardiology consult, appreciate recs # Hypertension- improved --> sbp goal <150 # Vent dependent with trach --> as per Pulmonary recs # Hypokalemia # Dysphagia s/p gtube feeds # CHf hx with hyponatremia --> 1l fluid restriction # Dvt ppx with lovenox (ok to continue given occult neg) The timing of this note does not necessarily reflect the time of the patient was seen. GREATLY APPRECIATE CONSULTATION. Subjective Constitutional: Denies: no symptoms, chills, fever, malaise, weakness, other Cardiovascular: Denies: no symptoms, chest pain, edema, irregular heart rate, lightheadedness, palpitations, syncope, other Gastrointestinal/Abdominal: Denies: no symptoms, abdomen distended, abdominal pain, black stools, tarry stools, blood in stool, constipated, diarrhea, difficulty swallowing, nausea, poor appetite, poor fluid intake, rectal bleeding , vomiting, other Genitourinary: Denies: no symptoms, burning, discharge, frequency, flank pain, hematuria, incontinence, pain, urgency, other Neurologic/Psychiatric: Denies: no symptoms, anxiety, depressed, emotional problems, headache, numbness, paresthesia, pre-existing deficit, seizure, tingling, tremors, weakness, other Endocrine: Denies: no symptoms, excessive sweating, flushing, intolerance to cold, intolerance to heat, increased hunger, increased thirst, increased urine, unexplained weight gain, unexplained weight loss, other Hematologic/Lymphatic: Denies: no symptoms, anemia, easy bleeding, easy bruising, adenopathy, other Allergies: Coded Allergies: Crayfish (Unverified Allergy, Unknown, 11/11/18) Uncoded Allergies: Crawfish (Allergy, Unknown, 11/09/18) Subjective 11/14: no events to report, labs relatively stable, hgb 8.9, on vent 11/15: no bleeding, no chills, labs reviewed, no major changes 11/16: cxr-->bilateral interstitial edema, vs stable, on abx, on vent, contact isolation 11/17: labs reviewed, on abx, vs stable, on vent, no distress 11/18: remains on gtube feeds, is on vent, on kaykay/vanc 11/20: no events, no bleeding, kaykay, vanc, diflucan, no f/c 11/21: remains on vent, gtube feeds, no major changes, no bleeding 11/22: ct abdomen pelvis w/contrast reviewed, vs stable, no acute events, labs reviewed, remains intubated, low grade fever 11/23: reviewed meds, abx have been changed, remains altered currently 11/24: labs reviewed, vs stable, med reviewed, no sob, no distress, on vent 11/25: remains on vent, no major events, on glucerna, fluid restriction 11/27: signed consent today, no f/c, no night sweats 11/28: no f/c, on abx, on vent, no distress, picc line in 11/29: no events to report, no f/c, no bleeding noted, on vent Objective Objective Current Medications Medications (Trade) Dose Ordered Sig/Lupe Route PRN Reason Start Time Stop Time Status Last Admin Dose Admin Acetaminophen (Tylenol) 650 mg Q4H PRN GT Mild Pain/Temp > 100.5 11/09/18 05:00 12/09/18 04:59 11/24/18 21:50 Amlodipine Besylate (Norvasc) 10 mg DAILY GT 11/09/18 09:00 12/09/18 08:59 11/29/18 09:04 Bisacodyl (Dulcolax) 10 mg DAILY PRN RECTAL Constipation 11/09/18 05:00 12/09/18 04:59 Calcium Carbonate (Tums) 500 mg EVERY 8 HOURS GT 11/09/18 14:00 12/09/18 08:59 11/29/18 14:08 Chlorhexidine Gluconate (Corzaon-Hex 2%) 1 applic DAILY@2000 TOPIC 11/12/18 20:00 12/12/18 19:59 11/28/18 20:05 Dextrose (Dextrose 50%) 25 ml Q30M PRN IV Hypoglycemia 11/09/18 04:45 12/09/18 04:44 Dextrose (Dextrose 50%) 50 ml Q30M PRN IV Hypoglycemia 11/09/18 04:45 12/09/18 04:44 11/09/18 09:09 Enoxaparin Sodium (Lovenox) 40 mg DAILY SUBQ 11/09/18 09:00 12/09/18 08:59 11/29/18 09:08 Famotidine (Pepcid) 20 mg EVERY 12 HOURS GT 11/09/18 21:00 12/09/18 08:59 11/29/18 09:04 Hydralazine HCl (Apresoline) 5 mg EVERY 8 HOURS GT 11/09/18 06:00 12/09/18 05:59 11/29/18 14:08 Insulin Aspart (NovoLOG) Q6HR SUBQ 11/09/18 06:00 12/09/18 05:59 11/29/18 12:11 Insulin Detemir (Levemir) 4 units EVERY 12 HOURS SUBQ 11/16/18 21:00 12/09/18 08:59 11/29/18 09:18 Labetalol HCl (Normodyne) 200 mg Q8HR GT 11/09/18 06:00 12/09/18 05:59 11/29/18 14:09 Lactulose (Cephulac) 10 gm THREE TIMES A DAY GT 11/27/18 18:00 12/27/18 12:59 11/29/18 14:10 Levetiracetam (Keppra) 1,500 mg Q12HR GT 11/09/18 09:00 12/09/18 08:59 11/29/18 09:05 Magnesium Hydroxide (Mom) 30 ml DAILY PRN GT Constipation 11/09/18 05:00 12/09/18 04:59 Magnesium Oxide (Mag-Ox 400mg) 400 mg EVERY 8 HOURS GT 11/09/18 14:00 12/09/18 08:59 11/29/18 14:09 Metronidazole (Flagyl) 500 mg EVERY 8 HOURS ORAL 11/28/18 14:00 12/05/18 13:59 11/29/18 14:12 Micafungin Sodium 100 mg/Sodium Chloride 100 ml @ 100 mls/hr Q24H IVPB 11/29/18 14:00 12/06/18 13:59 11/29/18 14:24 Ondansetron HCl (Zofran) 4 mg Q6H PRN GT Nausea & Vomiting 11/09/18 05:00 12/09/18 04:59 Phenobarbital (PHENobarbital) 60 mg BID GT 11/09/18 09:00 12/09/18 08:59 11/29/18 09:07 Phenytoin (Dilantin) 100 mg Q8HR GT 11/09/18 06:00 12/09/18 05:59 11/29/18 14:08 Polyethylene Glycol (Miralax) 17 gm DAILYPRN PRN GT Constipation 11/14/18 10:30 12/12/18 10:29 Polymyxin B Sulfate 604396 units/Dextrose 550 ml @ 550 mls/hr EVERY 12 HOURS IV 11/26/18 21:00 12/03/18 20:59 11/29/18 09:08 Potassium Chloride (K-Dur) 40 meq ONCE GT 11/29/18 15:00 11/29/18 16:00 Sennosides (Senokot) 8.6 mg EVERY 12 HOURS GT 11/09/18 21:00 12/09/18 08:59 11/29/18 09:03 Sodium Chloride 1,000 ml @ 75 mls/hr [id number] IV 11/29/18 15:15 12/29/18 15:14 Vancomycin HCl (Vanco rx to dose) 1 ea DAILY PRN MISC Per rx protocol 11/28/18 11:45 12/28/18 11:44 Vancomycin HCl 1 gm/Dextrose 275 ml @ 183.708 mls/hr Q12HR@0400,1600 IVPB 11/28/18 16:00 12/03/18 15:59 11/29/18 03:03 Last 24 Hour Vital Signs Date Time Temp Pulse Resp B/P (MAP) Pulse Ox O2 Delivery O2 Flow Rate FiO2 11/29/18 14:56 82 20 30 11/29/18 14:09 78 127/70 11/29/18 14:08 127/70 11/29/18 12:45 81 22 30 11/29/18 12:03 78 11/29/18 12:00 6.0 30 11/29/18 12:00 97.2 79 20 127/70 (89) 100 11/29/18 12:00 Trach Collar 6.0 11/29/18 11:30 83 22 30 11/29/18 09:04 77 128/61 11/29/18 08:55 82 22 30 11/29/18 08:02 74 11/29/18 08:00 6.0 30 11/29/18 08:00 Trach Collar 6.0 11/29/18 07:52 97.3 77 18 128/61 (83) 100 11/29/18 07:05 80 20 30 11/29/18 05:44 100/56 11/29/18 05:06 92 134/69 11/29/18 04:34 84 21 30 11/29/18 04:00 30 11/29/18 04:00 87 11/29/18 04:00 98.2 89 20 132/72 (92) 100 11/29/18 04:00 Mechanical Ventilator 11/29/18 03:00 82 24 30 11/29/18 01:00 79 23 30 11/29/18 00:00 98.0 80 18 115/59 (77) 100 11/29/18 00:00 Mechanical Ventilator 11/29/18 00:00 30 11/29/18 00:00 82 11/28/18 23:01 81 21 30 11/28/18 22:08 30 11/28/18 22:00 112/57 11/28/18 21:06 88 130/90 11/28/18 20:35 88 22 30 11/28/18 20:00 30 11/28/18 20:00 98.2 88 18 136/90 (105) 100 11/28/18 20:00 Mechanical Ventilator 11/28/18 19:32 87 11/28/18 19:00 92 26 30 11/28/18 16:48 98 27 30 11/28/18 16:00 98.2 93 20 130/73 (92) 100 11/28/18 16:00 Mechanical Ventilator 11/28/18 16:00 30 11/28/18 15:27 92 11/28/18 15:10 91 24 30 11/28/18 14:08 99 124/67 11/28/18 14:08 124/67 11/28/18 13:00 99 23 30 11/28/18 12:00 98.2 90 21 124/67 (86) 100 11/28/18 12:00 30 11/28/18 12:00 Mechanical Ventilator 11/28/18 11:40 91 11/28/18 11:25 89 26 30 11/28/18 08:55 90 20 30 11/28/18 08:25 85 126/58 11/28/18 08:00 30 11/28/18 08:00 Mechanical Ventilator 11/28/18 08:00 98.4 85 18 126/58 (80) 100 11/28/18 07:51 86 11/28/18 07:08 86 22 30 11/28/18 06:05 92 141/72 11/28/18 06:04 141/72 11/28/18 05:28 91 23 30 11/28/18 04:00 83 11/28/18 04:00 98.7 92 20 141/73 (95) 100 11/28/18 04:00 Mechanical Ventilator 11/28/18 04:00 30 11/28/18 03:02 84 26 30 11/28/18 01:05 81 24 30 11/28/18 00:00 98.7 85 20 130/70 (90) 100 11/28/18 00:00 30 11/28/18 00:00 83 11/28/18 00:00 Mechanical Ventilator 11/27/18 23:25 85 26 30 11/27/18 22:12 90 130/70 11/27/18 22:06 130/68 11/27/18 21:00 84 21 30 11/27/18 20:00 Mechanical Ventilator 11/27/18 20:00 85 11/27/18 20:00 98.7 90 20 125/68 (87) 100 11/27/18 18:45 82 21 30 11/27/18 17:08 90 30 30 11/27/18 16:00 90 11/27/18 16:00 Mechanical Ventilator 11/27/18 16:00 30 11/27/18 16:00 98.2 87 24 104/62 (76) 100 11/27/18 15:28 88 25 30 Intake and Output 11/28/18 11/29/18 19:00 07:00 Intake Total 885 ml 1886.416 ml Output Total 1300 ml 2950 ml Balance -415 ml -1063.584 ml Intake Free Water 200 ml 50 ml IV Total 100 ml 1316.416 ml Tube Feeding 585 ml 520 ml Output Urine Total 1300 ml 2950 ml # Bowel Movements 1 Labs Test 11/27/18 03:00 11/27/18 21:00 11/28/18 04:00 11/28/18 15:45 White Blood Count 9.6 K/UL (4.8-10.8) 10.2 K/UL (4.8-10.8) Red Blood Count 2.91 M/UL (4.20-5.40) 3.54 M/UL (4.20-5.40) Hemoglobin 7.5 G/DL (12.0-16.0) 9.3 G/DL (12.0-16.0) Hematocrit 21.8 % (37.0-47.0) 26.7 % (37.0-47.0) Mean Corpuscular Volume 75 FL (80-99) 76 FL (80-99) Mean Corpuscular Hemoglobin 25.7 PG (27.0-31.0) 26.2 PG (27.0-31.0) Mean Corpuscular Hemoglobin Concent 34.3 G/DL (32.0-36.0) 34.7 G/DL (32.0-36.0) Red Cell Distribution Width 20.7 % (11.6-14.8) 19.8 % (11.6-14.8) Platelet Count 275 K/UL (150-450) 280 K/UL (150-450) Mean Platelet Volume 5.8 FL (6.5-10.1) 5.5 FL (6.5-10.1) Neutrophils (%) (Auto) % (45.0-75.0) 78.0 % (45.0-75.0) Lymphocytes (%) (Auto) % (20.0-45.0) 10.3 % (20.0-45.0) Monocytes (%) (Auto) % (1.0-10.0) 5.7 % (1.0-10.0) Eosinophils (%) (Auto) % (0.0-3.0) 5.4 % (0.0-3.0) Basophils (%) (Auto) % (0.0-2.0) 0.7 % (0.0-2.0) Sodium Level 126 MMOL/L (136-145) 128 MMOL/L (136-145) 126 MMOL/L (136-145) Potassium Level 3.4 MMOL/L (3.5-5.1) 3.7 MMOL/L (3.5-5.1) 3.6 MMOL/L (3.5-5.1) Chloride Level 92 MMOL/L (98-107) 92 MMOL/L (98-107) 90 MMOL/L (98-107) Carbon Dioxide Level 30 MMOL/L (21-32) 32 MMOL/L (21-32) 32 MMOL/L (21-32) Anion Gap 5 mmol/L (5-15) 4 mmol/L (5-15) 4 mmol/L (5-15) Blood Urea Nitrogen 12 mg/dL (7-18) 13 mg/dL (7-18) 13 mg/dL (7-18) Creatinine 0.4 MG/DL (0.55-1.30) 0.3 MG/DL (0.55-1.30) 0.4 MG/DL (0.55-1.30) Estimat Glomerular Filtration Rate mL/min (>60) mL/min (>60) mL/min (>60) Glucose Level 142 MG/DL (74-106) 111 MG/DL (74-106) 105 MG/DL (74-106) Calcium Level 7.1 MG/DL (8.5-10.1) 7.6 MG/DL (8.5-10.1) 7.8 MG/DL (8.5-10.1) Total Bilirubin 0.3 MG/DL (0.2-1.0) 0.3 MG/DL (0.2-1.0) Aspartate Amino Transf (AST/SGOT) 191 U/L (15-37) 186 U/L (15-37) Alanine Aminotransferase (ALT/SGPT) 115 U/L (12-78) 118 U/L (12-78) Alkaline Phosphatase 439 U/L (46-116) 544 U/L (46-116) Total Protein 4.8 G/DL (6.4-8.2) 5.3 G/DL (6.4-8.2) Albumin 0.9 G/DL (3.4-5.0) 1.0 G/DL (3.4-5.0) Globulin 3.9 g/dL 4.3 g/dL Albumin/Globulin Ratio 0.2 (1.0-2.7) 0.2 (1.0-2.7) Vancomycin Level Trough 15.6 ug/mL (5.0-12.0) Uric Acid 7.3 MG/DL (2.6-7.2) Urine Osmolality 291 mOsm/kg (429-449) Urine Random Sodium 29 mmol/L (20-110) Test 11/28/18 18:25 11/29/18 04:00 Sodium Level 125 MMOL/L (136-145) 128 MMOL/L (136-145) Potassium Level 3.3 MMOL/L (3.5-5.1) 3.2 MMOL/L (3.5-5.1) Chloride Level 90 MMOL/L (98-107) 91 MMOL/L (98-107) Carbon Dioxide Level 30 MMOL/L (21-32) 32 MMOL/L (21-32) Anion Gap 5 mmol/L (5-15) 5 mmol/L (5-15) Blood Urea Nitrogen 15 mg/dL (7-18) 15 mg/dL (7-18) Creatinine 0.4 MG/DL (0.55-1.30) 0.4 MG/DL (0.55-1.30) Estimat Glomerular Filtration Rate mL/min (>60) mL/min (>60) Glucose Level 120 MG/DL (74-106) 108 MG/DL (74-106) Osmolality 263 mOsm/kg (297-317) Calcium Level 7.8 MG/DL (8.5-10.1) 7.7 MG/DL (8.5-10.1) Thyroid Stimulating Hormone (TSH) 2.816 uiU/mL (0.358-3.740) White Blood Count 10.8 K/UL (4.8-10.8) Red Blood Count 3.33 M/UL (4.20-5.40) Hemoglobin 8.6 G/DL (12.0-16.0) Hematocrit 25.8 % (37.0-47.0) Mean Corpuscular Volume 78 FL (80-99) Mean Corpuscular Hemoglobin 26.0 PG (27.0-31.0) Mean Corpuscular Hemoglobin Concent 33.4 G/DL (32.0-36.0) Red Cell Distribution Width 20.2 % (11.6-14.8) Platelet Count 291 K/UL (150-450) Mean Platelet Volume 5.5 FL (6.5-10.1) Neutrophils (%) (Auto) 77.0 % (45.0-75.0) Lymphocytes (%) (Auto) 10.3 % (20.0-45.0) Monocytes (%) (Auto) 6.7 % (1.0-10.0) Eosinophils (%) (Auto) 5.1 % (0.0-3.0) Basophils (%) (Auto) 0.9 % (0.0-2.0) Total Bilirubin 0.3 MG/DL (0.2-1.0) Aspartate Amino Transf (AST/SGOT) 158 U/L (15-37) Alanine Aminotransferase (ALT/SGPT) 105 U/L (12-78) Alkaline Phosphatase 507 U/L (46-116) Total Protein 4.9 G/DL (6.4-8.2) Albumin 0.9 G/DL (3.4-5.0) Globulin 4.0 g/dL Albumin/Globulin Ratio 0.2 (1.0-2.7) Cortisol AM Sample 15.5 UG/DL Height (Feet): 5 Height (Inches): 8.00 Weight (Pounds): 208 Objective Physical Exam: Vitals: reviewed Gen: NAD HEENT: normocephalic, atraumatic Neck: non-tender, normal alignment ++ vent/trach Respiratory: normal breath sounds bilaterally CV: normal peripheral pulses, rrr Abdomen: normal bowel sounds, soft, nontender +gtube Extremities: 1-2+ edema, normal range of motion Yonathan Hernandez MD Nov 29, 2018 15:13
[2018-11-29 16:00] VITALS: BP 139/79
--- NOTE | 2018-11-29 17:00 | NUR ---
NURSE NOTES: Pt stable no resp distress presented during the shift.
[2018-11-29 17:12] LABS: ANION GAP 1 mmol/L (5-15); BLOOD UREA NITROGEN 14 mg/dL (7-18); CALCIUM 7.4 MG/DL (8.5-10.1); CARBON DIOXIDE 29 MMOL/L (21-32); CHLORIDE 91 MMOL/L (98-107); CREATININE 0.5 MG/DL (0.55-1.30); POTASSIUM 3.4 MMOL/L (3.5-5.1); SODIUM 121 MMOL/L (136-145)
--- NOTE | 2018-11-29 19:25 | NUR ---
NURSE NOTES: Received patient from Melecio Smith RN. patient is observed in bed, obtunded, nonverbal. no s/sx of pain noted at this time. vent to trach settings are as follows: Shiley: 8, AC: 14, TV: 375, FiO2: 30%, PEEP: 5. no s/sx of respiratory distress noted at this time. G-tube site is patent and intact, running feeding at prescribed rate. HOB elevated, no residual noted. F/C is patent and intact, draining well. KAITLYNN PICC is patent and intact, asymptomatic, running fluids at prescribed rate. bed in lowest position and locked, padded siderails up X3, call light within reach. will continue to monitor.
--- NOTE | 2018-11-29 19:32 | NUR ---
HAND-OFF: Report given to Bernadine Moore RN..
[2018-11-29 20:00] VITALS: BP 141/89
[2018-11-29] MEDS: Dyna-Hex 2% Top Sol 2oz TOPIC SCH (20:24)
--- NOTE | 2018-11-29 21:00 | NUR ---
NURSE NOTES: Patient noted to have feed residual of 300ml. Placed feed on hold for now. Repositioned patient and placed head of bed at 45 degree angle.
[2018-11-30] VITALS (7 sets, daily range): BP systolic 121–149; BP diastolic 55–72
--- NOTE | 2018-11-30 01:00 | NUR ---
NURSE NOTES: Rechecked feed residual and showed a little over 100ml. Will continue to hold feedings for now. Glucose for midnight was 169, coverage was provided. Repositioned patient and adjusted pillows. Oral care was also given, heels remain off loaded. VSS remain stable, afebrile.
[2018-11-30] MEDS: Vancomycin 1 GM in D5W 275 ML IVPB SCH ×2 (04:02→13:28)
[2018-11-30 04:46] LABS: BASOPHILS % (AUTO) 0.6 % (0.0-2.0); EOSINOPHILS % (AUTO) 3.9 % (0.0-3.0); HEMATOCRIT 25.1 % (37.0-47.0); HEMOGLOBIN 8.4 G/DL (12.0-16.0); LYMPHOCYTES % (AUTO) 7.9 % (20.0-45.0); MEAN CORPUSCULAR VOLUME 77 FL (80-99); MONOCYTES % (AUTO) 8.4 % (1.0-10.0); NEUTROPHILS % (AUTO) 79.2 % (45.0-75.0); PLATELET COUNT 250 K/UL (150-450); RED BLOOD COUNT 3.26 M/UL (4.20-5.40)
[2018-11-30 05:26] LABS: ALANINE AMINOTRANSFERASE 120 U/L (12-78); ALBUMIN 0.9 G/DL (3.4-5.0); ALBUMIN/GLOBULIN RATIO 0.2 (1.0-2.7); ALKALINE PHOSPHATASE 535 U/L (46-116); ANION GAP 5 mmol/L (5-15); ASPARTATE AMINO TRANSFERASE 169 U/L (15-37); BILIRUBIN,TOTAL 0.3 MG/DL (0.2-1.0); BLOOD UREA NITROGEN 14 mg/dL (7-18); CALCIUM 7.7 MG/DL (8.5-10.1); CARBON DIOXIDE 30 MMOL/L (21-32); CHLORIDE 91 MMOL/L (98-107); CREATININE 0.4 MG/DL (0.55-1.30); SODIUM 126 MMOL/L (136-145)
[2018-11-30] MEDS: Labetalol 200mg tab GT SCH ×3 (06:05→21:09)
[2018-11-30] MEDS: HydrALAZINE 10mg Tab GT SCH (06:05)
[2018-11-30] MEDS: Magnesium Oxide 400mg tab GT SCH (06:05)
[2018-11-30] MEDS: Tums 500mg GT SCH (06:05)
[2018-11-30] MEDS: metroNIDAZOLE 500mg tab ORAL SCH (06:05)
[2018-11-30] MEDS: Phenytoin Susp 100mg/4ml GT SCH ×3 (06:06→21:09)
[2018-11-30] MEDS: NovoLOG Insulin Flexpen SUBQ SCH ×4 (06:14→23:06)
--- NOTE | 2018-11-30 07:30 | NUR ---
NURSE NOTES: Report received from Bernadine DESHPANDE ,Pt in bed, obtunded. will open eyes with repositioning. facial swelling and protrusion. trach tube to vent, current settings Shiley 8, ac 14 vt 375, fi02 30% peep 5, no sob,no resp distress presented. lung sounds diminished. secretions thick and mccauley. SR on the monitor, GTF Glucerna 1.2 at 65ml/hr,no residual noted. Ospina cath draining yellow urine, secure to leg. KAITLYNN PICC line intact,with IVF NS at 75 ml/hr. skin dry and scaly sacral wound. contact precautions in place. HOB elevated, bed lock in lowest position, will continue with pt care.
--- NOTE | 2018-11-30 07:40 | NUR ---
HAND-OFF: Report given to CHARLEE Vincent. patient is in stable condition.
--- NOTE | 2018-11-30 07:52 | General Progress Note ---
Assessment/Plan Problem List: (1) Gram-negative pneumonia ICD Codes: J15.6 - Pneumonia due to other Gram-negative bacteria SNOMED: 449501948 (2) MRSA (methicillin resistant staphylococcus aureus) pneumonia ICD Codes: J15.212 - Pneumonia due to Methicillin resistant Staphylococcus aureus SNOMED: 470774221319524 (3) Fever ICD Codes: R50.9 - Fever, unspecified SNOMED: 518722724 (4) UTI (urinary tract infection) ICD Codes: N39.0 - Urinary tract infection, site not specified SNOMED: 79093805 (5) Tracheostomy dependence ICD Codes: Z93.0 - Tracheostomy status SNOMED: 320220881 (6) Ventilator dependence ICD Codes: Z99.11 - Dependence on respirator [ventilator] status SNOMED: 737529068 (7) Protein calorie malnutrition ICD Codes: E46 - Unspecified protein-calorie malnutrition SNOMED: 998542590 (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 SNOMED: 56359179 (9) Drug rash ICD Codes: L27.0 - Generalized skin eruption due to drugs and medicaments taken internally SNOMED: 58470911 (10) Line sepsis ICD Codes: T85.79XA - Infection and inflammatory reaction due to other internal prosthetic devices, implants and grafts, initial encounter; A41.9 - Sepsis, unspecified organism SNOMED: 42726010, 049471542 (11) Bacteremia ICD Codes: R78.81 - Bacteremia SNOMED: 1186021 (12) Hyponatremia ICD Codes: E87.1 - Hypo-osmolality and hyponatremia SNOMED: 84306267 (13) Sepsis ICD Codes: A41.9 - Sepsis, unspecified organism SNOMED: 97563333 (14) Seizure disorder ICD Codes: G40.909 - Epilepsy, unspecified, not intractable, without status epilepticus SNOMED: 742621408 (15) Diabetes ICD Codes: E11.9 - Type 2 diabetes mellitus without complications SNOMED: 91327988 (16) Colon adenocarcinoma ICD Codes: C18.9 - Malignant neoplasm of colon, unspecified SNOMED: 766261251 (17) Anoxic brain damage ICD Codes: G93.1 - Anoxic brain damage, not elsewhere classified SNOMED: 947903975 (18) Decubitus skin ulcer ICD Codes: L89.90 - Pressure ulcer of unspecified site, unspecified stage SNOMED: 868237189 Status: stable, progressing Assessment/Plan: 78-year-old female who is trach dependent who was brought in by retirement for sepsis and found to have UTI and bacteremia. 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 fungal uti vs colonization ID consult appreciate Rec Vancomycin and Meropenem started 11/16 ( Zosyn stopped) , fungal coverage with Diflucan added 11/18. Repeat sputum cultures with RAULTELLA PLANTICOA and PROVIDENCIA STUARTI resistant to most antibiotics Developed morbilliform rash on meropenem, this was stopped and rash is better, has persistent fevers. Started Polymyxin and flagyl 11/21. Added vancomycin and micafungin on 11/24 picc cultures, no growth so far. repeat sputum cultures Organism 1 A.BAUMANII COMPLX - MDR GROWTH: 4+ Organism 2 PSEUDOMONAS AERUGINOSA ACIBCX-MDR PSE AERUGI M.I.C. RX M.I.C. RX --------- --- --------- --- CEFTAZIDIME >=64 R 2 S CEFTRIAXONE >=64 R CEFEPIME >=64 R <=1 S CIPROFLOXACIN >=4 R <=0.25 S GENTAMICIN >=16 R <=1 S LEVOFLOXACIN >=8 R 0.5 S IMIPENEM >=16 R >=16 R TRIMETHOPRIM/SULFA <=20 S AMIKACIN <=2 S PIPERACILLIN/TAZOBACTAM 8 S Discussed with daughter at bedside. CT abdomen pelvis shows no acute process Removed PICC and place new line 11/13/18 Echo to eval for vegetation negative Chest x-ray reviewed, no change #hyponatremia, hypotonic. Intravascularly depleted vs SIADH s/p IV NS which has not corrected sodium. Serum Cortisol and TSH WNL, valproic acid stopped. Urea unavailable at the hospital. Free water stopped via GT. Will consider Albumin/Furosemide Check cmp, mg, phosph tomorrow urine osmol, serum urea, urine sodium reviewed nephrology consult with Dr. Diana Sommers. # Transaminitis - worsening, meds vs passive congestion - trend lft's - GI consult, appreciate recs - ab us: reviewed - hep panel negative #Elevated troponin secondary to sepsis versus ACS Cardiology consult, appreciate recs Medications per cardiology #Microcytic anemia- mixed anemia of chronic inflammation and iron deficiency. Start ferrous sulfate TID , transfused 1 uprbc 11/27 #Hypertension- improved Continue current medications, hydralazine as needed hypertension #Vent dependent Pulmonary consult, appreciate recs Vent management per pulmonary #Hypokalemia Replace, continue to monitor # Chronic tongue wound Supportive care On examination the patient has a sharp lower incisor present that is likely the culprit for the tongue laceration when she was intubated in the prior hospitalization at [facility] OMFS consultation Dr. Benavides completed ( no note left ) and I spoke with him over the phone after the visit. He does not recommend any surgery. ONLY bite block MOLT if available to decompress the tongue and get the remainder teeth out of the tongue way. Keep moisture in the lips and tongue. ENT consult difficult to obtain- pending # History of mood disorder Seen by psychiatry and on Depakote. Level was checked # Seizure history - Discussed with Dr. Eric who knew the patient from [facility] and confirmed that she did have seizure activity and was on multiple AED regimen. - Will continue Depakote ( 28 level ) and (Phenytoin 4.3 ) - no active seizure activity at this time. Keep current dose. - Both Dr. Eric and Mariana not available to come to [facility] [place] for consult and not acute need at this time. #Diabetes Mellitus - glucose noted in the 90-110's - Decreased Levemir to 4 units q 12 hours # Disposition - SNF when cleared by ID. Full code I discussed goals of care and current condition with daughter at bedside. prognosis guarded timing of this note may not reflect time of encounter. I spent 40 minutes on this encounter. Great than 50 percent spent of care planning. Subjective Date patient seen: Nov 30, 2018 ROS Limited/Unobtainable: Yes Genitourinary: Reports: incontinence Allergies: Coded Allergies: Crayfish (Unverified Allergy, Unknown, 11/11/18) Uncoded Allergies: Crawfish (Allergy, Unknown, 11/09/18) Subjective obtunded on vent, afebrile On broad spectrum antibiotics. Added micafungin and vancomycin 11/25/18 per ID. fevers are better Unable to get ENT consult Now with hyponatremia. Started on IVF. Nephrology consulted Worsening Anemia s/p 1 uprbc 11/27/18 picc culture no growth repeat sputum cultures: Organism 1 A.BAUMANII COMPLX - MDR GROWTH: 4+ Organism 2 PSEUDOMONAS AERUGINOSA ACIBCX-MDR PSE AERUGI M.I.C. RX M.I.C. RX --------- --- --------- --- CEFTAZIDIME >=64 R 2 S CEFTRIAXONE >=64 R CEFEPIME >=64 R <=1 S CIPROFLOXACIN >=4 R <=0.25 S GENTAMICIN >=16 R <=1 S LEVOFLOXACIN >=8 R 0.5 S IMIPENEM >=16 R >=16 R TRIMETHOPRIM/SULFA <=20 S AMIKACIN <=2 S PIPERACILLIN/TAZOBACTAM 8 S I discussed her condition and prognosis at length with daughter at bedside. Objective Last 24 Hour Vital Signs Date Time Temp Pulse Resp B/P (MAP) Pulse Ox O2 Delivery O2 Flow Rate FiO2 11/30/18 06:51 70 21 30 11/30/18 06:05 73 138/71 11/30/18 06:05 138/71 11/30/18 05:22 73 22 30 11/30/18 04:00 97.2 74 20 138/71 (93) 100 11/30/18 04:00 71 11/30/18 04:00 Mechanical Ventilator 6.0 11/30/18 04:00 6.0 30 11/30/18 03:26 70 22 30 11/30/18 01:01 71 17 30 11/30/18 00:00 96.6 75 20 127/70 (89) 100 11/30/18 00:00 75 11/30/18 00:00 6.0 30 11/30/18 00:00 Mechanical Ventilator 6.0 11/29/18 23:12 75 20 30 11/29/18 21:59 76 141/89 11/29/18 21:59 141/89 11/29/18 21:26 76 23 30 11/29/18 20:00 6.0 30 11/29/18 20:00 Mechanical Ventilator 6.0 11/29/18 20:00 79 11/29/18 20:00 97.7 79 22 141/89 (106) 100 11/29/18 19:08 76 25 30 11/29/18 17:01 75 24 30 11/29/18 16:30 Trach Collar 6.0 11/29/18 16:00 Trach Collar 6.0 11/29/18 16:00 96.3 70 21 139/79 (99) 100 11/29/18 16:00 6.0 30 11/29/18 15:26 74 11/29/18 14:56 82 20 30 11/29/18 14:09 78 127/70 11/29/18 14:08 127/70 11/29/18 12:45 81 22 30 11/29/18 12:03 78 11/29/18 12:00 6.0 30 11/29/18 12:00 97.2 79 20 127/70 (89) 100 11/29/18 12:00 Trach Collar 6.0 11/29/18 11:30 83 22 30 11/29/18 09:04 77 128/61 11/29/18 08:55 82 22 30 11/29/18 08:02 74 11/29/18 08:00 6.0 30 11/29/18 08:00 Trach Collar 6.0 Intake and Output 11/29/18 11/30/18 18:59 06:59 Intake Total 2160 ml 2113.792 ml Output Total 1350 ml 900 ml Balance 810 ml 1213.792 ml Intake Free Water 150 ml 100 ml IV Total 1000 ml 1658.792 ml Tube Feeding 650 ml 325 ml Other 360 ml 30 ml Output Urine Total 1350 ml 900 ml # Bowel Movements 2 3 Laboratory Tests 11/29/18 16:15: Sodium Level 121L, Potassium Level 3.4L, Chloride Level 91L, Carbon Dioxide Level 29, Anion Gap 1L, Blood Urea Nitrogen 14, Creatinine 0.5L, Estimat Glomerular Filtration Rate , Glucose Level 133H, Calcium Level 7.4L 11/30/18 04:00: Sodium Level 126L, Potassium Level 4.0, Chloride Level 91L, Carbon Dioxide Level 30, Anion Gap 5, Blood Urea Nitrogen 14, Creatinine 0.4L, Estimat Glomerular Filtration Rate , Glucose Level 84, Calcium Level 7.7L, White Blood Count 9.0, Red Blood Count 3.26L, Hemoglobin 8.4L, Hematocrit 25.1L, Mean Corpuscular Volume 77L, Mean Corpuscular Hemoglobin 25.7L, Mean Corpuscular Hemoglobin Concent 33.4, Red Cell Distribution Width 20.0H, Platelet Count 250, Mean Platelet Volume 5.7L, Neutrophils (%) (Auto) 79.2H, Lymphocytes (%) (Auto) 7.9L, Monocytes (%) (Auto) 8.4, Eosinophils (%) (Auto) 3.9H, Basophils (%) (Auto ) 0.6, Total Bilirubin 0.3, Aspartate Amino Transf (AST/SGOT) 169H, Alanine Aminotransferase (ALT/SGPT) 120H, Alkaline Phosphatase 535H, Total Protein 4.8L , Albumin 0.9L, Globulin 3.9, Albumin/Globulin Ratio 0.2L Height (Feet): 5 Height (Inches): 8.00 Weight (Pounds): 208 Objective General Appearance: no apparent distress, other - unresponsive on vent EENT: PERRL/EOMI, other - enlarged tongue protruding, lower lip severely swollen Neck: supple Cardiovascular: normal rate, regular rhythm Respiratory/Chest: lungs clear Abdomen: soft Neurologic: unresponsive Skin: Morbilliform rash to bilateral upper extremities and thighs Neftaly Walters M.D. Nov 30, 2018 07:52
--- NOTE | 2018-11-30 08:22 | Hematology/Onc Progress Note ---
Assessment/Plan Assessment/Plan # Anemia of chronic disease due to underlying chronic medical issues, multifactorial --> Anemia workup has been reviewed and cw acd --> No evidence of hemolysis is noted, peripheral smear has been reviewed. --> Hgb goal >7. Transfuse prn. --> hgb trend 9.1-->8.9-->9-->8.9-->8.9->7.8->8.7-->9-->8-->7.5-->9.3->8.6-->8.4 --> Epogen or iron indication prn --> Medications have been reviewed --> low threshold for gi evaluation and occult is negative --> bone marrow biopsy is not indicated given the other more likely causes # Leukocytosis iwth Sepsis secondary to UTI, GPC Staph Epidermidis bacteremia, Line associated infection - patient arrived to the Hospital with PICC --> as per ID consult appreciate Rec --> Continue antibiotics per ID: Continue Zosyn and vancomycin, anti fungal added--> kaykay/vanc, diflucan-->flagyl, vanc, polymyxin--> omid/flafgyl/polym/ vanc --> imaging noted --> now improved # Thrombocytosis is likely due to underlying reactive process --> if doesn't improve send off jak2 --> plt count 641k-->402k-->344-->275k-->280k-->250k # Transaminitis --> trend lft's --> GI consult, apprec recs --> ab us: reviewed # Elevated troponin secondary to sepsis versus ACS --> as per Cardiology consult, appreciate recs # Hypertension- improved --> sbp goal <150 # Vent dependent with trach --> as per Pulmonary recs # Hypokalemia # Dysphagia s/p gtube feeds # CHf hx with hyponatremia --> 1l fluid restriction # Dvt ppx with lovenox (ok to continue given occult neg) The timing of this note does not necessarily reflect the time of the patient was seen. GREATLY APPRECIATE CONSULTATION. Subjective Allergies: Coded Allergies: Crayfish (Unverified Allergy, Unknown, 11/11/18) Uncoded Allergies: Crawfish (Allergy, Unknown, 11/09/18) Subjective 11/14: no events to report, labs relatively stable, hgb 8.9, on vent 11/15: no bleeding, no chills, labs reviewed, no major changes 11/16: cxr-->bilateral interstitial edema, vs stable, on abx, on vent, contact isolation 11/17: labs reviewed, on abx, vs stable, on vent, no distress 11/18: remains on gtube feeds, is on vent, on kaykay/vanc 11/20: no events, no bleeding, kaykay, vanc, diflucan, no f/c 11/21: remains on vent, gtube feeds, no major changes, no bleeding 11/22: ct abdomen pelvis w/contrast reviewed, vs stable, no acute events, labs reviewed, remains intubated, low grade fever 11/23: reviewed meds, abx have been changed, remains altered currently 11/24: labs reviewed, vs stable, med reviewed, no sob, no distress, on vent 11/25: remains on vent, no major events, on glucerna, fluid restriction 11/27: signed consent today, no f/c, no night sweats 11/28: no f/c, on abx, on vent, no distress, picc line in 11/29: no events to report, no f/c, no bleeding noted, on vent 11/30: vs stable, no f/c, on vent, obtunded, gtube feeds Objective Objective Current Medications Medications (Trade) Dose Ordered Sig/Lupe Route PRN Reason Start Time Stop Time Status Last Admin Dose Admin Acetaminophen (Tylenol) 650 mg Q4H PRN GT Mild Pain/Temp > 100.5 11/09/18 05:00 12/09/18 04:59 11/24/18 21:50 Amlodipine Besylate (Norvasc) 10 mg DAILY GT 11/09/18 09:00 12/09/18 08:59 11/29/18 09:04 Bisacodyl (Dulcolax) 10 mg DAILY PRN RECTAL Constipation 11/09/18 05:00 12/09/18 04:59 Calcium Carbonate (Tums) 500 mg EVERY 8 HOURS GT 11/09/18 14:00 12/09/18 08:59 11/30/18 06:05 Chlorhexidine Gluconate (Corazon-Hex 2%) 1 applic DAILY@2000 TOPIC 11/12/18 20:00 12/12/18 19:59 11/29/18 20:24 Dextrose (Dextrose 50%) 25 ml Q30M PRN IV Hypoglycemia 11/09/18 04:45 12/09/18 04:44 Dextrose (Dextrose 50%) 50 ml Q30M PRN IV Hypoglycemia 11/09/18 04:45 12/09/18 04:44 11/09/18 09:09 Enoxaparin Sodium (Lovenox) 40 mg DAILY SUBQ 11/09/18 09:00 12/09/18 08:59 11/29/18 09:08 Famotidine (Pepcid) 20 mg EVERY 12 HOURS GT 11/09/18 21:00 12/09/18 08:59 11/29/18 20:24 Hydralazine HCl (Apresoline) 5 mg EVERY 8 HOURS GT 11/09/18 06:00 12/09/18 05:59 11/30/18 06:05 Insulin Aspart (NovoLOG) Q6HR SUBQ 11/09/18 06:00 12/09/18 05:59 11/30/18 06:14 Insulin Detemir (Levemir) 4 units EVERY 12 HOURS SUBQ 11/16/18 21:00 12/09/18 08:59 11/29/18 20:26 Labetalol HCl (Normodyne) 200 mg Q8HR GT 11/09/18 06:00 12/09/18 05:59 11/30/18 06:05 Lactulose (Cephulac) 10 gm THREE TIMES A DAY GT 11/27/18 18:00 12/27/18 12:59 11/29/18 18:08 Levetiracetam (Keppra) 1,500 mg Q12HR GT 11/09/18 09:00 12/09/18 08:59 11/29/18 20:24 Magnesium Hydroxide (Mom) 30 ml DAILY PRN GT Constipation 11/09/18 05:00 12/09/18 04:59 Magnesium Oxide (Mag-Ox 400mg) 400 mg EVERY 8 HOURS GT 11/09/18 14:00 12/09/18 08:59 11/30/18 06:05 Metronidazole (Flagyl) 500 mg EVERY 8 HOURS ORAL 11/28/18 14:00 12/05/18 13:59 11/30/18 06:05 Micafungin Sodium 100 mg/Sodium Chloride 100 ml @ 100 mls/hr Q24H IVPB 11/29/18 14:00 12/06/18 13:59 11/29/18 14:24 Ondansetron HCl (Zofran) 4 mg Q6H PRN GT Nausea & Vomiting 11/09/18 05:00 12/09/18 04:59 Phenobarbital (PHENobarbital) 60 mg BID GT 11/09/18 09:00 12/09/18 08:59 11/29/18 18:08 Phenytoin (Dilantin) 100 mg Q8HR GT 11/09/18 06:00 12/09/18 05:59 11/30/18 06:06 Polyethylene Glycol (Miralax) 17 gm DAILYPRN PRN GT Constipation 11/14/18 10:30 12/12/18 10:29 Polymyxin B Sulfate 092067 units/Dextrose 550 ml @ 550 mls/hr EVERY 12 HOURS IV 11/26/18 21:00 12/03/18 20:59 11/29/18 20:25 Sennosides (Senokot) 8.6 mg EVERY 12 HOURS GT 11/09/18 21:00 12/09/18 08:59 11/29/18 20:25 Sodium Chloride 1,000 ml @ 75 mls/hr [id number] IV 11/29/18 15:15 12/29/18 15:14 11/30/18 04:02 Vancomycin HCl (Vanco rx to dose) 1 ea DAILY PRN MISC Per rx protocol 11/28/18 11:45 12/28/18 11:44 Vancomycin HCl 1 gm/Dextrose 275 ml @ 183.708 mls/hr Q12HR@0400,1600 IVPB 11/28/18 16:00 12/03/18 15:59 11/30/18 04:02 Last 24 Hour Vital Signs Date Time Temp Pulse Resp B/P (MAP) Pulse Ox O2 Delivery O2 Flow Rate FiO2 11/30/18 06:51 70 21 30 11/30/18 06:05 73 138/71 11/30/18 06:05 138/71 11/30/18 05:22 73 22 30 11/30/18 04:00 97.2 74 20 138/71 (93) 100 11/30/18 04:00 71 11/30/18 04:00 Mechanical Ventilator 6.0 11/30/18 04:00 6.0 30 11/30/18 03:26 70 22 30 11/30/18 01:01 71 17 30 11/30/18 00:00 96.6 75 20 127/70 (89) 100 11/30/18 00:00 75 11/30/18 00:00 6.0 30 11/30/18 00:00 Mechanical Ventilator 6.0 11/29/18 23:12 75 20 30 11/29/18 21:59 76 141/89 11/29/18 21:59 141/89 11/29/18 21:26 76 23 30 11/29/18 20:00 6.0 30 11/29/18 20:00 Mechanical Ventilator 6.0 11/29/18 20:00 79 11/29/18 20:00 97.7 79 22 141/89 (106) 100 11/29/18 19:08 76 25 30 11/29/18 17:01 75 24 30 11/29/18 16:30 Trach Collar 6.0 11/29/18 16:00 Trach Collar 6.0 11/29/18 16:00 96.3 70 21 139/79 (99) 100 11/29/18 16:00 6.0 30 11/29/18 15:26 74 11/29/18 14:56 82 20 30 11/29/18 14:09 78 127/70 11/29/18 14:08 127/70 11/29/18 12:45 81 22 30 11/29/18 12:03 78 11/29/18 12:00 6.0 30 11/29/18 12:00 97.2 79 20 127/70 (89) 100 11/29/18 12:00 Trach Collar 6.0 11/29/18 11:30 83 22 30 11/29/18 09:04 77 128/61 11/29/18 08:55 82 22 30 11/29/18 08:02 74 11/29/18 08:00 6.0 30 11/29/18 08:00 Trach Collar 6.0 11/29/18 07:52 97.3 77 18 128/61 (83) 100 11/29/18 07:05 80 20 30 11/29/18 05:44 100/56 11/29/18 05:06 92 134/69 11/29/18 04:34 84 21 30 11/29/18 04:00 30 11/29/18 04:00 87 11/29/18 04:00 98.2 89 20 132/72 (92) 100 11/29/18 04:00 Mechanical Ventilator 11/29/18 03:00 82 24 30 11/29/18 01:00 79 23 30 11/29/18 00:00 98.0 80 18 115/59 (77) 100 11/29/18 00:00 Mechanical Ventilator 11/29/18 00:00 30 11/29/18 00:00 82 11/28/18 23:01 81 21 30 11/28/18 22:08 30 11/28/18 22:00 112/57 11/28/18 21:06 88 130/90 11/28/18 20:35 88 22 30 11/28/18 20:00 30 11/28/18 20:00 98.2 88 18 136/90 (105) 100 11/28/18 20:00 Mechanical Ventilator 11/28/18 19:32 87 11/28/18 19:00 92 26 30 11/28/18 16:48 98 27 30 11/28/18 16:00 98.2 93 20 130/73 (92) 100 11/28/18 16:00 Mechanical Ventilator 11/28/18 16:00 30 11/28/18 15:27 92 11/28/18 15:10 91 24 30 11/28/18 14:08 99 124/67 11/28/18 14:08 124/67 11/28/18 13:00 99 23 30 11/28/18 12:00 98.2 90 21 124/67 (86) 100 11/28/18 12:00 30 11/28/18 12:00 Mechanical Ventilator 11/28/18 11:40 91 11/28/18 11:25 89 26 30 11/28/18 08:55 90 20 30 11/28/18 08:25 85 126/58 Intake and Output 11/29/18 11/30/18 18:59 06:59 Intake Total 2160 ml 2113.792 ml Output Total 1350 ml 900 ml Balance 810 ml 1213.792 ml Intake Free Water 150 ml 100 ml IV Total 1000 ml 1658.792 ml Tube Feeding 650 ml 325 ml Other 360 ml 30 ml Output Urine Total 1350 ml 900 ml # Bowel Movements 2 3 Labs Test 11/27/18 21:00 11/28/18 04:00 11/28/18 15:45 11/28/18 18:25 Sodium Level 128 MMOL/L (136-145) 126 MMOL/L (136-145) 125 MMOL/L (136-145) Potassium Level 3.7 MMOL/L (3.5-5.1) 3.6 MMOL/L (3.5-5.1) 3.3 MMOL/L (3.5-5.1) Chloride Level 92 MMOL/L (98-107) 90 MMOL/L (98-107) 90 MMOL/L (98-107) Carbon Dioxide Level 32 MMOL/L (21-32) 32 MMOL/L (21-32) 30 MMOL/L (21-32) Anion Gap 4 mmol/L (5-15) 4 mmol/L (5-15) 5 mmol/L (5-15) Blood Urea Nitrogen 13 mg/dL (7-18) 13 mg/dL (7-18) 15 mg/dL (7-18) Creatinine 0.3 MG/DL (0.55-1.30) 0.4 MG/DL (0.55-1.30) 0.4 MG/DL (0.55-1.30) Estimat Glomerular Filtration Rate mL/min (>60) mL/min (>60) mL/min (>60) Glucose Level 111 MG/DL (74-106) 105 MG/DL (74-106) 120 MG/DL (74-106) Calcium Level 7.6 MG/DL (8.5-10.1) 7.8 MG/DL (8.5-10.1) 7.8 MG/DL (8.5-10.1) White Blood Count 10.2 K/UL (4.8-10.8) Red Blood Count 3.54 M/UL (4.20-5.40) Hemoglobin 9.3 G/DL (12.0-16.0) Hematocrit 26.7 % (37.0-47.0) Mean Corpuscular Volume 76 FL (80-99) Mean Corpuscular Hemoglobin 26.2 PG (27.0-31.0) Mean Corpuscular Hemoglobin Concent 34.7 G/DL (32.0-36.0) Red Cell Distribution Width 19.8 % (11.6-14.8) Platelet Count 280 K/UL (150-450) Mean Platelet Volume 5.5 FL (6.5-10.1) Neutrophils (%) (Auto) 78.0 % (45.0-75.0) Lymphocytes (%) (Auto) 10.3 % (20.0-45.0) Monocytes (%) (Auto) 5.7 % (1.0-10.0) Eosinophils (%) (Auto) 5.4 % (0.0-3.0) Basophils (%) (Auto) 0.7 % (0.0-2.0) Uric Acid 7.3 MG/DL (2.6-7.2) Total Bilirubin 0.3 MG/DL (0.2-1.0) Aspartate Amino Transf (AST/SGOT) 186 U/L (15-37) Alanine Aminotransferase (ALT/SGPT) 118 U/L (12-78) Alkaline Phosphatase 544 U/L (46-116) Total Protein 5.3 G/DL (6.4-8.2) Albumin 1.0 G/DL (3.4-5.0) Globulin 4.3 g/dL Albumin/Globulin Ratio 0.2 (1.0-2.7) Urine Osmolality 291 mOsm/kg (429-449) Urine Random Sodium 29 mmol/L (20-110) Osmolality 263 mOsm/kg (297-317) Thyroid Stimulating Hormone (TSH) 2.816 uiU/mL (0.358-3.740) Test 11/29/18 04:00 11/29/18 16:15 11/30/18 04:00 White Blood Count 10.8 K/UL (4.8-10.8) 9.0 K/UL (4.8-10.8) Red Blood Count 3.33 M/UL (4.20-5.40) 3.26 M/UL (4.20-5.40) Hemoglobin 8.6 G/DL (12.0-16.0) 8.4 G/DL (12.0-16.0) Hematocrit 25.8 % (37.0-47.0) 25.1 % (37.0-47.0) Mean Corpuscular Volume 78 FL (80-99) 77 FL (80-99) Mean Corpuscular Hemoglobin 26.0 PG (27.0-31.0) 25.7 PG (27.0-31.0) Mean Corpuscular Hemoglobin Concent 33.4 G/DL (32.0-36.0) 33.4 G/DL (32.0-36.0) Red Cell Distribution Width 20.2 % (11.6-14.8) 20.0 % (11.6-14.8) Platelet Count 291 K/UL (150-450) 250 K/UL (150-450) Mean Platelet Volume 5.5 FL (6.5-10.1) 5.7 FL (6.5-10.1) Neutrophils (%) (Auto) 77.0 % (45.0-75.0) 79.2 % (45.0-75.0) Lymphocytes (%) (Auto) 10.3 % (20.0-45.0) 7.9 % (20.0-45.0) Monocytes (%) (Auto) 6.7 % (1.0-10.0) 8.4 % (1.0-10.0) Eosinophils (%) (Auto) 5.1 % (0.0-3.0) 3.9 % (0.0-3.0) Basophils (%) (Auto) 0.9 % (0.0-2.0) 0.6 % (0.0-2.0) Sodium Level 128 MMOL/L (136-145) 121 MMOL/L (136-145) 126 MMOL/L (136-145) Potassium Level 3.2 MMOL/L (3.5-5.1) 3.4 MMOL/L (3.5-5.1) 4.0 MMOL/L (3.5-5.1) Chloride Level 91 MMOL/L (98-107) 91 MMOL/L (98-107) 91 MMOL/L (98-107) Carbon Dioxide Level 32 MMOL/L (21-32) 29 MMOL/L (21-32) 30 MMOL/L (21-32) Anion Gap 5 mmol/L (5-15) 1 mmol/L (5-15) 5 mmol/L (5-15) Blood Urea Nitrogen 15 mg/dL (7-18) 14 mg/dL (7-18) 14 mg/dL (7-18) Creatinine 0.4 MG/DL (0.55-1.30) 0.5 MG/DL (0.55-1.30) 0.4 MG/DL (0.55-1.30) Estimat Glomerular Filtration Rate mL/min (>60) mL/min (>60) mL/min (>60) Glucose Level 108 MG/DL (74-106) 133 MG/DL (74-106) 84 MG/DL (74-106) Calcium Level 7.7 MG/DL (8.5-10.1) 7.4 MG/DL (8.5-10.1) 7.7 MG/DL (8.5-10.1) Total Bilirubin 0.3 MG/DL (0.2-1.0) 0.3 MG/DL (0.2-1.0) Aspartate Amino Transf (AST/SGOT) 158 U/L (15-37) 169 U/L (15-37) Alanine Aminotransferase (ALT/SGPT) 105 U/L (12-78) 120 U/L (12-78) Alkaline Phosphatase 507 U/L (46-116) 535 U/L (46-116) Total Protein 4.9 G/DL (6.4-8.2) 4.8 G/DL (6.4-8.2) Albumin 0.9 G/DL (3.4-5.0) 0.9 G/DL (3.4-5.0) Globulin 4.0 g/dL 3.9 g/dL Albumin/Globulin Ratio 0.2 (1.0-2.7) 0.2 (1.0-2.7) Cortisol AM Sample 15.5 UG/DL Height (Feet): 5 Height (Inches): 8.00 Weight (Pounds): 208 Objective Physical Exam: Vitals: reviewed Gen: NAD HEENT: normocephalic, atraumatic Neck: non-tender, normal alignment ++ vent/trach Respiratory: normal breath sounds bilaterally CV: normal peripheral pulses, rrr Abdomen: normal bowel sounds, soft, nontender +gtube Extremities: 1-2+ edema, normal range of motion Yonathan Hernandez MD Nov 30, 2018 08:22
--- NOTE | 2018-11-30 08:56 | NUR ---
RADIOLOGY DEPT., CHEST X-RAY DONE.-P.DYE
[2018-11-30] MEDS: PHENobarbital Elixir 30mg/7.5ml GT SCH ×2 (09:37→17:08)
[2018-11-30] MEDS: levETIRAcetam 500mg/5ml Liquid GT SCH ×2 (09:37→20:19)
[2018-11-30] MEDS: Lactulose 10gm/15ml UDC GT SCH ×3 (09:38→17:08)
[2018-11-30] MEDS: Sennosides 8.6mg tab GT SCH ×2 (09:38→20:19)
[2018-11-30] MEDS: Polymyxin B Sulfate 500,000 UNITS in D5W 500ml 550 ML IV SCH ×2 (09:45→21:09)
[2018-11-30] MEDS: Levemir Flexpen SUBQ SCH ×2 (09:58→20:23)
[2018-11-30] MEDS: Enoxaparin 40mg Inj SUBQ SCH (09:59)
--- NOTE | 2018-11-30 10:08 | GI Progress Note ---
Assessment/Plan Problems: (1) Abnormal LFTs ICD Codes: R94.5 - Abnormal results of liver function studies SNOMED: 713870286 (2) Decubitus skin ulcer ICD Codes: L89.90 - Pressure ulcer of unspecified site, unspecified stage SNOMED: 784935752 (3) Protein calorie malnutrition ICD Codes: E46 - Unspecified protein-calorie malnutrition SNOMED: 254450148 (4) Colon adenocarcinoma ICD Codes: C18.9 - Malignant neoplasm of colon, unspecified SNOMED: 742176328 (5) Sepsis ICD Codes: A41.9 - Sepsis, unspecified organism SNOMED: 31439176 (6) Tracheostomy dependence ICD Codes: Z93.0 - Tracheostomy status SNOMED: 529937727 (7) Gastrostomy in place ICD Codes: Z93.1 - Gastrostomy status SNOMED: 83964175, 79012933, 151011884 Status: unchanged Status Narrative Discussed with Dr. Humphries. Assessment/Plan Assessment - Iron deficiency anemia - abnormal LFT - ? meds, passive congestion - dysphagia, s/p GT - Resp, failure, s/p Trach - hepatitis panel negative Recommendations - Continue TF - Monitor LFT - follow CBC - Conservative approach given poor healt- - CT and us reviewed The patient was seen and examined at bedside and all new and available data was reviewed in the patients chart. I agree with the above findings, impression and plan. (Patient seen earlier today. Signature stamp does not reflect patient encounter time.). - Casper Humphries MD Subjective Subjective limited Objective Last 24 Hour Vital Signs Date Time Temp Pulse Resp B/P (MAP) Pulse Ox O2 Delivery O2 Flow Rate FiO2 11/30/18 09:56 71 122/68 11/30/18 08:45 70 21 30 11/30/18 06:51 70 21 30 11/30/18 06:05 73 138/71 11/30/18 06:05 138/71 11/30/18 05:22 73 22 30 11/30/18 04:00 97.2 74 20 138/71 (93) 100 11/30/18 04:00 71 11/30/18 04:00 Mechanical Ventilator 6.0 11/30/18 04:00 6.0 30 11/30/18 03:26 70 22 30 11/30/18 01:01 71 17 30 11/30/18 00:00 96.6 75 20 127/70 (89) 100 11/30/18 00:00 75 11/30/18 00:00 6.0 30 11/30/18 00:00 Mechanical Ventilator 6.0 11/29/18 23:12 75 20 30 11/29/18 21:59 76 141/89 11/29/18 21:59 141/89 11/29/18 21:26 76 23 30 11/29/18 20:00 6.0 30 11/29/18 20:00 Mechanical Ventilator 6.0 11/29/18 20:00 79 11/29/18 20:00 97.7 79 22 141/89 (106) 100 11/29/18 19:08 76 25 30 11/29/18 17:01 75 24 30 11/29/18 16:30 Trach Collar 6.0 11/29/18 16:00 Trach Collar 6.0 11/29/18 16:00 96.3 70 21 139/79 (99) 100 11/29/18 16:00 6.0 30 11/29/18 15:26 74 11/29/18 14:56 82 20 30 11/29/18 14:09 78 127/70 11/29/18 14:08 127/70 11/29/18 12:45 81 22 30 11/29/18 12:03 78 11/29/18 12:00 6.0 30 11/29/18 12:00 97.2 79 20 127/70 (89) 100 11/29/18 12:00 Trach Collar 6.0 11/29/18 11:30 83 22 30 Intake and Output 11/29/18 11/30/18 19:00 07:00 Intake Total 2200 ml 2048.792 ml Output Total 1350 ml 900 ml Balance 850 ml 1148.792 ml Intake Free Water 150 ml 100 ml IV Total 975 ml 1658.792 ml Tube Feeding 715 ml 260 ml Other 360 ml 30 ml Output Urine Total 1350 ml 900 ml # Bowel Movements 2 3 Laboratory Tests Test 11/29/18 16:15 11/30/18 04:00 Sodium Level 121 MMOL/L (136-145) L 126 MMOL/L (136-145) L Potassium Level 3.4 MMOL/L (3.5-5.1) L 4.0 MMOL/L (3.5-5.1) Chloride Level 91 MMOL/L (98-107) L 91 MMOL/L (98-107) L Carbon Dioxide Level 29 MMOL/L (21-32) 30 MMOL/L (21-32) Anion Gap 1 mmol/L (5-15) L 5 mmol/L (5-15) Blood Urea Nitrogen 14 mg/dL (7-18) 14 mg/dL (7-18) Creatinine 0.5 MG/DL (0.55-1.30) L 0.4 MG/DL (0.55-1.30) L Estimat Glomerular Filtration Rate mL/min (>60) mL/min (>60) Glucose Level 133 MG/DL (74-106) H 84 MG/DL (74-106) Calcium Level 7.4 MG/DL (8.5-10.1) L 7.7 MG/DL (8.5-10.1) L White Blood Count 9.0 K/UL (4.8-10.8) Red Blood Count 3.26 M/UL (4.20-5.40) L Hemoglobin 8.4 G/DL (12.0-16.0) L Hematocrit 25.1 % (37.0-47.0) L Mean Corpuscular Volume 77 FL (80-99) L Mean Corpuscular Hemoglobin 25.7 PG (27.0-31.0) L Mean Corpuscular Hemoglobin Concent 33.4 G/DL (32.0-36.0) Red Cell Distribution Width 20.0 % (11.6-14.8) H Platelet Count 250 K/UL (150-450) Mean Platelet Volume 5.7 FL (6.5-10.1) L Neutrophils (%) (Auto) 79.2 % (45.0-75.0) H Lymphocytes (%) (Auto) 7.9 % (20.0-45.0) L Monocytes (%) (Auto) 8.4 % (1.0-10.0) Eosinophils (%) (Auto) 3.9 % (0.0-3.0) H Basophils (%) (Auto) 0.6 % (0.0-2.0) Total Bilirubin 0.3 MG/DL (0.2-1.0) Aspartate Amino Transf (AST/SGOT) 169 U/L (15-37) H Alanine Aminotransferase (ALT/SGPT) 120 U/L (12-78) H Alkaline Phosphatase 535 U/L (46-116) H Total Protein 4.8 G/DL (6.4-8.2) L Albumin 0.9 G/DL (3.4-5.0) L Globulin 3.9 g/dL Albumin/Globulin Ratio 0.2 (1.0-2.7) L Height (Feet): 5 Height (Inches): 8.00 Weight (Pounds): 208 General Appearance: alert Cardiovascular: normal rate Respiratory/Chest: other - mech vent Abdominal Exam: site Aysha Sykes NP Nov 30, 2018 10:08
[2018-11-30] MEDS ORDERED: Tubing IV Secondary IV ONE (10:11)
[2018-11-30] MEDS ORDERED: NS 275ml ONE (10:11)
--- NOTE | 2018-11-30 10:22 | Pulmonology Progress Note ---
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 Assessment/Plan Continue ventilatory support/settings reviewed Titrate down FiO2 to keep SaO2 > 90% Optimize pulmonary hygiene/mobilize as tolerated RTC and PRN HHN's Abx per ID, F/U Cx's F/U cards recs Monitor volumes and renal function PRN lasix DVT Px: LMWH ENT eval pending FC, continue to discuss GOC Wound care Subjective Allergies: Coded Allergies: Crayfish (Unverified Allergy, Unknown, 11/11/18) Uncoded Allergies: Crawfish (Allergy, Unknown, 11/09/18) Subjective AFVSS stable on vent no sig secretions no distress Objective Vital Signs Noted General Appearance: no acute distress, cachetic, other - non-verbal HEENT: normocephalic, status post trach, other - macroglossia, facial edema Respiratory/Chest: crackles/rales Cardiovascular: normal peripheral pulses, normal rate, regular rhythm Abdomen: normal bowel sounds, soft, non tender, no organomegaly, non distended , other - GT Extremities: no cyanosis, no clubbing, other - 1-2+ LEONORA Laboratory Tests 11/28/18 15:45: Urine Osmolality 291L, Urine Random Sodium 29 11/28/18 18:25: Sodium Level 125L, Potassium Level 3.3L, Chloride Level 90L, Carbon Dioxide Level 30, Anion Gap 5, Blood Urea Nitrogen 15, Creatinine 0.4L, Estimat Glomerular Filtration Rate , Glucose Level 120H, Osmolality 263L, Calcium Level 7.8L, Thyroid Stimulating Hormone (TSH) 2.816 11/29/18 04:00: Sodium Level 128L, Potassium Level 3.2L, Chloride Level 91L, Carbon Dioxide Level 32, Anion Gap 5, Blood Urea Nitrogen 15, Creatinine 0.4L, Estimat Glomerular Filtration Rate , Glucose Level 108H, Calcium Level 7.7L, White Blood Count 10.8, Red Blood Count 3.33L, Hemoglobin 8.6L, Hematocrit 25.8L, Mean Corpuscular Volume 78L, Mean Corpuscular Hemoglobin 26.0L, Mean Corpuscular Hemoglobin Concent 33.4, Red Cell Distribution Width 20.2H, Platelet Count 291, Mean Platelet Volume 5.5L, Neutrophils (%) (Auto) 77.0H, Lymphocytes (%) (Auto) 10.3L, Monocytes (%) (Auto) 6.7, Eosinophils (%) (Auto) 5.1H, Basophils (%) (Auto) 0.9, Total Bilirubin 0.3, Aspartate Amino Transf (AST /SGOT) 158H, Alanine Aminotransferase (ALT/SGPT) 105H, Alkaline Phosphatase 507H , Total Protein 4.9L, Albumin 0.9L, Globulin 4.0, Albumin/Globulin Ratio 0.2L, Cortisol AM Sample 15.5 Current Medications Medications (Trade) Dose Ordered Sig/Lupe Route PRN Reason Start Time Stop Time Status Last Admin Dose Admin Acetaminophen (Tylenol) 650 mg Q4H PRN GT Mild Pain/Temp > 100.5 11/09/18 05:00 12/09/18 04:59 11/24/18 21:50 Amlodipine Besylate (Norvasc) 10 mg DAILY GT 11/09/18 09:00 12/09/18 08:59 11/29/18 09:04 Bisacodyl (Dulcolax) 10 mg DAILY PRN RECTAL Constipation 11/09/18 05:00 12/09/18 04:59 Calcium Carbonate (Tums) 500 mg EVERY 8 HOURS GT 11/09/18 14:00 12/09/18 08:59 11/29/18 05:06 Chlorhexidine Gluconate (Corazon-Hex 2%) 1 applic DAILY@1999 TOPIC 11/12/18 20:00 12/12/18 19:59 11/28/18 20:05 Dextrose (Dextrose 50%) 25 ml Q30M PRN IV Hypoglycemia 11/09/18 04:45 12/09/18 04:44 Dextrose (Dextrose 50%) 50 ml Q30M PRN IV Hypoglycemia 11/09/18 04:45 12/09/18 04:44 11/09/18 09:09 Enoxaparin Sodium (Lovenox) 40 mg DAILY SUBQ 11/09/18 09:00 12/09/18 08:59 11/29/18 09:08 Famotidine (Pepcid) 20 mg EVERY 12 HOURS GT 11/09/18 21:00 12/09/18 08:59 11/29/18 09:04 Hydralazine HCl (Apresoline) 5 mg EVERY 8 HOURS GT 11/09/18 06:00 12/09/18 05:59 11/28/18 14:08 Insulin Aspart (NovoLOG) Q6HR SUBQ 11/09/18 06:00 12/09/18 05:59 11/29/18 05:07 Insulin Detemir (Levemir) 4 units EVERY 12 HOURS SUBQ 11/16/18 21:00 12/09/18 08:59 11/29/18 09:18 Labetalol HCl (Normodyne) 200 mg Q8HR GT 11/09/18 06:00 12/09/18 05:59 11/29/18 05:06 Lactulose (Cephulac) 10 gm THREE TIMES A DAY GT 11/27/18 18:00 12/27/18 12:59 11/29/18 09:22 Levetiracetam (Keppra) 1,500 mg Q12HR GT 11/09/18 09:00 12/09/18 08:59 11/29/18 09:05 Magnesium Hydroxide (Mom) 30 ml DAILY PRN GT Constipation 11/09/18 05:00 12/09/18 04:59 Magnesium Oxide (Mag-Ox 400mg) 400 mg EVERY 8 HOURS GT 11/09/18 14:00 12/09/18 08:59 11/29/18 05:06 Metronidazole (Flagyl) 500 mg EVERY 8 HOURS ORAL 11/28/18 14:00 12/05/18 13:59 11/29/18 05:06 Micafungin Sodium 100 mg/Sodium Chloride 100 ml @ 100 mls/hr Q24H IVPB 11/24/18 14:00 12/01/18 13:59 11/28/18 14:08 Ondansetron HCl (Zofran) 4 mg Q6H PRN GT Nausea & Vomiting 11/09/18 05:00 12/09/18 04:59 Phenobarbital (PHENobarbital) 60 mg BID GT 11/09/18 09:00 12/09/18 08:59 11/29/18 09:07 Phenytoin (Dilantin) 100 mg Q8HR GT 11/09/18 06:00 12/09/18 05:59 11/29/18 06:01 Polyethylene Glycol (Miralax) 17 gm DAILYPRN PRN GT Constipation 11/14/18 10:30 12/12/18 10:29 Polymyxin B Sulfate 405616 units/Dextrose 550 ml @ 550 mls/hr EVERY 12 HOURS IV 11/26/18 21:00 12/03/18 20:59 11/29/18 09:08 Sennosides (Senokot) 8.6 mg EVERY 12 HOURS GT 11/09/18 21:00 12/09/18 08:59 11/29/18 09:03 Sodium Chloride 1,000 ml @ 100 mls/hr Q10H IV 11/28/18 17:25 12/28/18 17:24 11/29/18 03:01 Vancomycin HCl (Vanco rx to dose) 1 ea DAILY PRN MISC Per rx protocol 11/28/18 11:45 12/28/18 11:44 Vancomycin HCl 1 gm/Dextrose 275 ml @ 183.708 mls/hr Q12HR@0400,1600 IVPB 11/28/18 16:00 12/03/18 15:59 11/29/18 03:03 Subjective ROS Limited/Unobtainable: No Allergies: Coded Allergies: Crayfish (Unverified Allergy, Unknown, 11/11/18) Uncoded Allergies: Crawfish (Allergy, Unknown, 11/09/18) Objective Last 24 Hour Vital Signs Date Time Temp Pulse Resp B/P (MAP) Pulse Ox O2 Delivery O2 Flow Rate FiO2 11/30/18 09:56 71 122/68 11/30/18 08:45 70 21 30 11/30/18 06:51 70 21 30 11/30/18 06:05 73 138/71 11/30/18 06:05 138/71 11/30/18 05:22 73 22 30 11/30/18 04:00 97.2 74 20 138/71 (93) 100 11/30/18 04:00 71 11/30/18 04:00 Mechanical Ventilator 6.0 11/30/18 04:00 6.0 30 11/30/18 03:26 70 22 30 11/30/18 01:01 71 17 30 11/30/18 00:00 96.6 75 20 127/70 (89) 100 11/30/18 00:00 75 11/30/18 00:00 6.0 30 11/30/18 00:00 Mechanical Ventilator 6.0 11/29/18 23:12 75 20 30 11/29/18 21:59 76 141/89 11/29/18 21:59 141/89 11/29/18 21:26 76 23 30 11/29/18 20:00 6.0 30 11/29/18 20:00 Mechanical Ventilator 6.0 11/29/18 20:00 79 11/29/18 20:00 97.7 79 22 141/89 (106) 100 11/29/18 19:08 76 25 30 11/29/18 17:01 75 24 30 11/29/18 16:30 Trach Collar 6.0 11/29/18 16:00 Trach Collar 6.0 11/29/18 16:00 96.3 70 21 139/79 (99) 100 11/29/18 16:00 6.0 30 11/29/18 15:26 74 11/29/18 14:56 82 20 30 11/29/18 14:09 78 127/70 11/29/18 14:08 127/70 11/29/18 12:45 81 22 30 11/29/18 12:03 78 11/29/18 12:00 6.0 30 11/29/18 12:00 97.2 79 20 127/70 (89) 100 11/29/18 12:00 Trach Collar 6.0 11/29/18 11:30 83 22 30 Intake and Output 11/29/18 11/30/18 19:00 07:00 Intake Total 2200 ml 2048.792 ml Output Total 1350 ml 900 ml Balance 850 ml 1148.792 ml Intake Free Water 150 ml 100 ml IV Total 975 ml 1658.792 ml Tube Feeding 715 ml 260 ml Other 360 ml 30 ml Output Urine Total 1350 ml 900 ml # Bowel Movements 2 3 Laboratory Tests 11/29/18 16:15: Sodium Level 121L, Potassium Level 3.4L, Chloride Level 91L, Carbon Dioxide Level 29, Anion Gap 1L, Blood Urea Nitrogen 14, Creatinine 0.5L, Estimat Glomerular Filtration Rate , Glucose Level 133H, Calcium Level 7.4L 11/30/18 04:00: Sodium Level 126L, Potassium Level 4.0, Chloride Level 91L, Carbon Dioxide Level 30, Anion Gap 5, Blood Urea Nitrogen 14, Creatinine 0.4L, Estimat Glomerular Filtration Rate , Glucose Level 84, Calcium Level 7.7L, White Blood Count 9.0, Red Blood Count 3.26L, Hemoglobin 8.4L, Hematocrit 25.1L, Mean Corpuscular Volume 77L, Mean Corpuscular Hemoglobin 25.7L, Mean Corpuscular Hemoglobin Concent 33.4, Red Cell Distribution Width 20.0H, Platelet Count 250, Mean Platelet Volume 5.7L, Neutrophils (%) (Auto) 79.2H, Lymphocytes (%) (Auto) 7.9L, Monocytes (%) (Auto) 8.4, Eosinophils (%) (Auto) 3.9H, Basophils (%) (Auto ) 0.6, Total Bilirubin 0.3, Aspartate Amino Transf (AST/SGOT) 169H, Alanine Aminotransferase (ALT/SGPT) 120H, Alkaline Phosphatase 535H, Total Protein 4.8L , Albumin 0.9L, Globulin 3.9, Albumin/Globulin Ratio 0.2L Current Medications Medications (Trade) Dose Ordered Sig/Lupe Route PRN Reason Start Time Stop Time Status Last Admin Dose Admin Acetaminophen (Tylenol) 650 mg Q4H PRN GT Mild Pain/Temp > 100.5 11/09/18 05:00 12/09/18 04:59 11/24/18 21:50 Albumin Human 100 ml @ 100 mls/hr ONCE IV 11/30/18 09:00 11/30/18 11:00 11/30/18 09:38 Amlodipine Besylate (Norvasc) 10 mg DAILY GT 11/09/18 09:00 12/09/18 08:59 11/30/18 09:56 Bisacodyl (Dulcolax) 10 mg DAILY PRN RECTAL Constipation 11/09/18 05:00 12/09/18 04:59 Chlorhexidine Gluconate (Corazon-Hex 2%) 1 applic DAILY@1999 TOPIC 11/12/18 20:00 12/12/18 19:59 11/29/18 20:24 Dextrose (Dextrose 50%) 25 ml Q30M PRN IV Hypoglycemia 11/09/18 04:45 12/09/18 04:44 Dextrose (Dextrose 50%) 50 ml Q30M PRN IV Hypoglycemia 11/09/18 04:45 12/09/18 04:44 11/09/18 09:09 Enoxaparin Sodium (Lovenox) 40 mg DAILY SUBQ 11/09/18 09:00 12/09/18 08:59 11/30/18 09:59 Famotidine (Pepcid) 20 mg EVERY 12 HOURS GT 11/09/18 21:00 12/09/18 08:59 11/30/18 09:37 Furosemide (Lasix) 40 mg ONCE IV 11/30/18 10:00 11/30/18 12:00 Insulin Aspart (NovoLOG) Q6HR SUBQ 11/09/18 06:00 12/09/18 05:59 11/30/18 06:14 Insulin Detemir (Levemir) 4 units EVERY 12 HOURS SUBQ 11/16/18 21:00 12/09/18 08:59 11/30/18 09:58 Labetalol HCl (Normodyne) 200 mg Q8HR GT 11/09/18 06:00 12/09/18 05:59 11/30/18 06:05 Lactulose (Cephulac) 10 gm THREE TIMES A DAY GT 11/27/18 18:00 12/27/18 12:59 11/30/18 09:38 Levetiracetam (Keppra) 1,500 mg Q12HR GT 11/09/18 09:00 12/09/18 08:59 11/30/18 09:37 Magnesium Hydroxide (Mom) 30 ml DAILY PRN GT Constipation 11/09/18 05:00 12/09/18 04:59 Metronidazole (Flagyl) 500 mg EVERY 8 HOURS GT 11/30/18 14:00 12/05/18 13:59 Micafungin Sodium 100 mg/Sodium Chloride 100 ml @ 100 mls/hr Q24H IVPB 11/29/18 14:00 12/06/18 13:59 11/29/18 14:24 Ondansetron HCl (Zofran) 4 mg Q6H PRN GT Nausea & Vomiting 8/22/19 05:00 12/09/18 04:59 Phenobarbital (PHENobarbital) 60 mg BID GT 11/09/18 09:00 12/09/18 08:59 11/30/18 09:37 Phenytoin (Dilantin) 100 mg Q8HR GT 11/09/18 06:00 12/09/18 05:59 11/30/18 06:06 Polyethylene Glycol (Miralax) 17 gm DAILYPRN PRN GT Constipation 11/14/18 10:30 12/12/18 10:29 Polymyxin B Sulfate 788290 units/Dextrose 550 ml @ 550 mls/hr EVERY 12 HOURS IV 11/26/18 21:00 12/03/18 20:59 11/30/18 09:45 Sennosides (Senokot) 8.6 mg EVERY 12 HOURS GT 11/09/18 21:00 12/09/18 08:59 11/30/18 09:38 Vancomycin HCl (Vanco rx to dose) 1 ea DAILY PRN MISC Per rx protocol 11/28/18 11:45 12/28/18 11:44 Vancomycin HCl 1 gm/Dextrose 275 ml @ 183.708 mls/hr Q12HR@0400,1600 IVPB 11/28/18 16:00 12/03/18 15:59 11/30/18 04:02 Eloy Vega MD Nov 30, 2018 10:21
--- NOTE | 2018-11-30 11:01 | NUR ---
RD ASSESSMENT & RECOMMENDATIONS SEE CARE ACTIVITY FOR COMPLETE ASSESSMENT DAILY ESTIMATED NEEDS: Needs based on Critical care, sepsis, wound 60kg adj 22-30 kcals/kg [id number] total kcals 1.25-2 g protein/kg 75-120 g total protein Fluid per MD, on lasix mL/kg total fluid mLs NUTRITION DIAGNOSIS: * Swallowing difficulty r/t resp status as evidenced by pt is vent dep via trach and PEG dep. * Increased kcal and pro needs r/t wound healing and sepsis as evidenced by pt w/ sacral and R heel wounds, pt now afebrile. CURRENT TF:Glucerna 1.2 @ 65ml/hr x18 hrs + Prosource x1 ENTERAL NUTRITION RECOMMENDATIONS: Glucerna 1.2 @ 65ml/hr x18 hrs + Prosource x1 daily to provide 1170ml, 1404 kcal, 70g pro + 11g pro, 942 free H2O - Maintain current TF at goal as tolerated - TF TO BE HELD FOR ONE HR BEFORE AND AFTER DILANTIN MEDS - Water flush per MD/ HOB over 30 degrees ADDITIONAL RECOMMENDATIONS: 1) CALIBRATED BED SCALE W/ ADDED P200 MATTRESS + PUMP 2) TF TO RUN A MAX OF 18 HRS/DAY W/ DILANTIN TID PER PHARMACY 3) Monitor Na level closely, need for TF change/less free fluids -> meds have been adjusted to improve Na level at this time 4) Monitor TF tolerance- w/ cont residuals, rec prokinetics 5) WOUND CARE: ADD CHAYITO BID + VIT C 250MG DAILY 6) Monitor lytes, replete as needed
--- NOTE | 2018-11-30 12:00 | NUR ---
NURSE NOTES: Pt in bed, vss. obtunded. trach to vent, current settings Shiley 8, ac 14 vt 375, fi02 30% peep 5, no resp distress presented. lung sounds diminished. secretions thick and mccauley. SR on the monitor, GTF Glucerna 1.2 at 65ml/hr,no residual noted. Ospina cath draining yellow urine, secure to leg. KAITLYNN PICC line intact NS and gt flush D/C skin dry and scaly sacral wound. contact precautions in place. HOB elevated, bed lock in lowest position, will continue with pt care.
--- NOTE | 2018-11-30 12:26 | Nephrology Progress Note ---
Assessment/Plan Problem List: (1) Fever (2) Diabetes (3) Seizure disorder (4) HTN (hypertension) (5) Tracheostomy dependence (6) Anoxic brain damage (7) Hyponatremia Plan #hyponatremia- likely hypovolumic vs SIADH due to valproic acid- hypo-osmolar - DC IVF given worsening swelling - DC free water flushes - repeat urine osm and urine sodium - Agree with holding lasix for now - consider holding valproic acid as it can cause SIADH - monitor BMP q12 - am cortisol WNL #H/o HTN- controlled - amlodipine 10mg daily - labetalol 200mg TID - hydralazine 5 TID #Hypokalemia- repleted - stable today Subjective Subjective sodium down to 121 last night and 126 today K 4.0 BP stable more swollen Objective Objective Last 24 Hour Vital Signs Date Time Temp Pulse Resp B/P (MAP) Pulse Ox O2 Delivery O2 Flow Rate FiO2 11/30/18 10:43 73 20 30 11/30/18 09:56 71 122/68 11/30/18 08:45 70 21 30 11/30/18 08:00 Mechanical Ventilator 6.0 11/30/18 08:00 6.0 30 11/30/18 08:00 69 11/30/18 06:51 70 21 30 11/30/18 06:05 73 138/71 11/30/18 06:05 138/71 11/30/18 05:22 73 22 30 11/30/18 04:00 97.2 74 20 138/71 (93) 100 11/30/18 04:00 71 11/30/18 04:00 Mechanical Ventilator 6.0 11/30/18 04:00 6.0 30 11/30/18 03:26 70 22 30 11/30/18 01:01 71 17 30 11/30/18 00:00 96.6 75 20 127/70 (89) 100 11/30/18 00:00 75 11/30/18 00:00 6.0 30 11/30/18 00:00 Mechanical Ventilator 6.0 11/29/18 23:12 75 20 30 11/29/18 21:59 76 141/89 11/29/18 21:59 141/89 11/29/18 21:26 76 23 30 11/29/18 20:00 6.0 30 11/29/18 20:00 Mechanical Ventilator 6.0 11/29/18 20:00 79 11/29/18 20:00 97.7 79 22 141/89 (106) 100 11/29/18 19:08 76 25 30 11/29/18 17:01 75 24 30 11/29/18 16:30 Trach Collar 6.0 11/29/18 16:00 Trach Collar 6.0 11/29/18 16:00 96.3 70 21 139/79 (99) 100 11/29/18 16:00 6.0 30 11/29/18 15:26 74 11/29/18 14:56 82 20 30 11/29/18 14:09 78 127/70 11/29/18 14:08 127/70 11/29/18 12:45 81 22 30 Intake and Output 11/29/18 11/30/18 19:00 07:00 Intake Total 2200 ml 2048.792 ml Output Total 1350 ml 900 ml Balance 850 ml 1148.792 ml Intake Free Water 150 ml 100 ml IV Total 975 ml 1658.792 ml Tube Feeding 715 ml 260 ml Other 360 ml 30 ml Output Urine Total 1350 ml 900 ml # Bowel Movements 2 3 Laboratory Tests 11/29/18 16:15: Sodium Level 121L, Potassium Level 3.4L, Chloride Level 91L, Carbon Dioxide Level 29, Anion Gap 1L, Blood Urea Nitrogen 14, Creatinine 0.5L, Estimat Glomerular Filtration Rate , Glucose Level 133H, Calcium Level 7.4L 11/30/18 04:00: Sodium Level 126L, Potassium Level 4.0, Chloride Level 91L, Carbon Dioxide Level 30, Anion Gap 5, Blood Urea Nitrogen 14, Creatinine 0.4L, Estimat Glomerular Filtration Rate , Glucose Level 84, Calcium Level 7.7L, White Blood Count 9.0, Red Blood Count 3.26L, Hemoglobin 8.4L, Hematocrit 25.1L, Mean Corpuscular Volume 77L, Mean Corpuscular Hemoglobin 25.7L, Mean Corpuscular Hemoglobin Concent 33.4, Red Cell Distribution Width 20.0H, Platelet Count 250, Mean Platelet Volume 5.7L, Neutrophils (%) (Auto) 79.2H, Lymphocytes (%) (Auto) 7.9L, Monocytes (%) (Auto) 8.4, Eosinophils (%) (Auto) 3.9H, Basophils (%) (Auto ) 0.6, Total Bilirubin 0.3, Aspartate Amino Transf (AST/SGOT) 169H, Alanine Aminotransferase (ALT/SGPT) 120H, Alkaline Phosphatase 535H, Total Protein 4.8L , Albumin 0.9L, Globulin 3.9, Albumin/Globulin Ratio 0.2L Height (Feet): 5 Height (Inches): 8.00 Weight (Pounds): 208 Objective General Appearance: no apparent distress, lethargic, + trach Neck: non-tender, normal alignment, supple, normal inspection, no JVD Rhythm: NSR Cardiovascular: normal peripheral pulses, regular rhythm, tachycardia Respiratory/Chest: biltateral faint wheezes Abdomen: normal bowel sounds, non tender, soft, + PEG Diana Sommers M.D. Nov 30, 2018 12:26
--- NOTE | 2018-11-30 12:33 | Diagnostic Imaging Report ---
Indication: Dyspnea Comparison: 11/26/2018 A single view chest radiograph was obtained. Findings: Pulmonary edema again demonstrated. PICC line is stable as well as tracheostomy. Heart is enlarged. Basilar atelectasis suspected. The diaphragm is poorly seen. Underlying parenchymal infiltrate or other disease and/or pleural effusion may be present. IMPRESSION: Pulmonary edema
--- NOTE | 2018-11-30 12:41 | NUR ---
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 97.2 HR 71 RR 20 B/P 138/71 AC 14 TV 375 FIO2 30% PEEP 5 NA 126 AST 169 ALT 120 ALK PHOS 535 CXR= PULMONARY EDEMA IS: MICAFUNGIN IV VANCO IV FLAGYL GT POLYMYXIN IV STEP DOWN STATUS
[2018-11-30] MEDS: metroNIDAZOLE 500mg tab GT SCH ×2 (13:25→21:09)
--- NOTE | 2018-11-30 14:20 | Infectious Diseases Prog Note ---
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 fungal uti vs colonization, ? new line infection , ? new nosocomial infection - polymyxin and flagyl, vancomycin and micafungin - day # 7 abx, plan on 10 days tx - fevers resolved, leukocytosis resolved - previous picc line changed - CT scan without abscess or diverticulitis - sacral wound management per surgery - rash improved/stable - ? enlarged tongue - ENT evaluation if possible 2. Trach-vent respiratory failure. 3. Dysphagia, G-tube. 4. Anemia. 5. Diabetes. 6. Hypertension. 7. Large tongue. 8. Anoxic brain injury. 9. Weakness. 10. Poorly responsive. 11. History of seizures. 12. History of colon adenocarcinoma. 13. Skin care protocol. 14. Allergy to crawfish. 15. Social history negative. 16. Family history noncontributory. 17. MAR was noted. 18. Case was discussed with RN. 19. Continue treatment per primary consultants. 20. Orders were ordered, entered, and noted. 21. Continue wound care protocol. 22. Continue blood sugar and blood pressure treatment per primary consultants for diabetes and hypertension. 23. vre colonization and isolation Subjective Constitutional: Reports: other - + trach and vent ; Denies: fever HEENT: Reports: congestion Respiratory: Reports: shortness of breath Cardiovascular: Reports: other - no pressors Gastrointestinal/Abdominal: Denies: nausea, vomiting, diarrhea Genitourinary: Reports: other - + nava Neurologic: Reports: other - poorly responsive Psychiatric: Reports: other - NA Skin: Reports: rash - stable Hematologic: Denies: bleeding Musculoskeletal: Reports: other - NA Allergies: Coded Allergies: Crayfish (Unverified Allergy, Unknown, 11/11/18) Uncoded Allergies: Crawfish (Allergy, Unknown, 11/09/18) Objective Vital Signs Last 24 Hour Vital Signs Date Time Temp Pulse Resp B/P (MAP) Pulse Ox O2 Delivery O2 Flow Rate FiO2 11/30/18 13:27 71 115/63 11/30/18 13:19 70 23 30 11/30/18 12:00 69 11/30/18 12:00 6.0 30 11/30/18 12:00 Mechanical Ventilator 6.0 9/12/19 10:43 73 20 30 11/30/18 09:56 71 122/68 11/30/18 08:45 70 21 30 11/30/18 08:00 Mechanical Ventilator 6.0 11/30/18 08:00 6.0 30 11/30/18 08:00 69 11/30/18 06:51 70 21 30 11/30/18 06:05 73 138/71 11/30/18 06:05 138/71 11/30/18 05:22 73 22 30 11/30/18 04:00 97.2 74 20 138/71 (93) 100 11/30/18 04:00 71 11/30/18 04:00 Mechanical Ventilator 6.0 11/30/18 04:00 6.0 30 11/30/18 03:26 70 22 30 11/30/18 01:01 71 17 30 11/30/18 00:00 96.6 75 20 127/70 (89) 100 11/30/18 00:00 75 11/30/18 00:00 6.0 30 11/30/18 00:00 Mechanical Ventilator 6.0 11/29/18 23:12 75 20 30 11/29/18 21:59 76 141/89 11/29/18 21:59 141/89 11/29/18 21:26 76 23 30 11/29/18 20:00 6.0 30 11/29/18 20:00 Mechanical Ventilator 6.0 11/29/18 20:00 79 11/29/18 20:00 97.7 79 22 141/89 (106) 100 11/29/18 19:08 76 25 30 11/29/18 17:01 75 24 30 11/29/18 16:30 Trach Collar 6.0 11/29/18 16:00 Trach Collar 6.0 11/29/18 16:00 96.3 70 21 139/79 (99) 100 11/29/18 16:00 6.0 30 11/29/18 15:26 74 11/29/18 14:56 82 20 30 Height (Feet): 5 Height (Inches): 8.00 Weight (Pounds): 208 General Appearance: other - + nava, + vent HEENT: normocephalic, atraumatic, anicteric, no JVD, status post trach Respiratory/Chest: crackles/rales, rhonchi - bilaterally Cardiovascular: normal rate, regular rhythm, no gallop/murmur, no JVD Abdomen: normal bowel sounds, soft, non tender, no organomegaly, non distended Genitourinary: other - + nava - urine slt cloudy Extremities: no cyanosis Skin: rash - stable , other - woudns covered Neurologic/Psychiatric: other - on vent, poorly responsive Lymphatic: no neck adenopathy Musculoskeletal: no effusion Objective 11/11/18 - chest x-ray - IMPRESSION: 1. Hypoventilatory lungs. Elevated right hemidiaphragm. Slightly improved vascular congestion. Similar bibasilar lung atelectasis and airspace disease. 2. Query right pleural effusion. 2-D echo - no vegetations mentioned, report noted sacral x-ray - no osteo mentioned, report noted 11/14/18 - Technique: One view of the chest Comparison: November 13, 2018 post PICC radiograph Findings: Bilateral interstitial and alveolar edema versus infiltrates appear slightly worse. There is increasing obscuration of left hemidiaphragm, may reflect increasing pleural fluid as well. The heart remains enlarged. Previously demonstrated left arm PICC has been removed. Stable right arm PICC. Impression: Slightly worsening bilateral interstitial and airspace infiltrates versus edema, over one day 11/16/18 - chest x-ray Procedure: XRAY Chest 1v Indication: Dyspnea Technique: One view of the chest Comparison: November 14, 2018 Findings: Bilateral interstitial edema persists. Tracheostomy, right arm PICC remain. The heart is enlarged. Impression: Bilateral interstitial edema, unchanged over [address] abdomen and pelvis: Impression: No definite acute process Diverticulosis. No evidence of diverticulitis Extensive edema of the subcutaneous fat. 2 cm focal fluid collection/edema seen within the incision Moderate amount retained dense stool. Correlate with any clinical history of constipation Hiatal hernia. Gastrostomy Left renal parapelvic cysts Apparent prior hysterectomy Chest x-ray - 11/23/18 - Technique: One view of the chest Comparison: 11/20/2018 Findings: Less optimal inspiration currently, with resultant crowding of the bronchovascular markings. Interstitial congestion is probably not significantly changed, allowing for differences in exposure technique. Tracheostomy remains. Right arm PICC remains. Impression: Unchanged, over 3 days, findings as above. Chest x-ray - 11/26/18 - IMPRESSION: 1. Rotated film. Increased hazy opacity at the left lung and left retrocardiac opacity. 2. Decreased left pleural effusion. 3. Elevated right hemidiaphragm with probable pleural effusion and consolidation, similar. Chest x-ray - 11/30/18 - Findings: Pulmonary edema again demonstrated. PICC line is stable as well as tracheostomy. Heart is enlarged. Basilar atelectasis suspected. The diaphragm is poorly seen. Underlying parenchymal infiltrate or other disease and/or pleural effusion may be present. IMPRESSION: Pulmonary edema Microbiology Date/Time Source Procedure Growth Status 11/24/18 15:10 Blood Blood Culture - Preliminary NO GROWTH AFTER 4 DAYS Resulted 11/26/18 09:00 Sputum Gram Stain - Final Complete 11/26/18 09:00 Sputum Culture - Final Acinetobacter Baumanii - Mdr Providencia Stuartii Complete 11/24/18 13:45 Indwelling Cath Urine Culture - Final NO GROWTH AFTER 48 HOURS Complete 11/13/18 21:55 Catheter Site Catheter Tip Culture - Final Escherichia Coli Complete Laboratory Tests Test 11/29/18 16:15 11/30/18 04:00 11/30/18 13:22 11/30/18 14:00 Sodium Level 121 MMOL/L (136-145) L 126 MMOL/L (136-145) L Pending Potassium Level 3.4 MMOL/L (3.5-5.1) L 4.0 MMOL/L (3.5-5.1) Pending Chloride Level 91 MMOL/L (98-107) L 91 MMOL/L (98-107) L Pending Carbon Dioxide Level 29 MMOL/L (21-32) 30 MMOL/L (21-32) Pending Anion Gap 1 mmol/L (5-15) L 5 mmol/L (5-15) Blood Urea Nitrogen 14 mg/dL (7-18) 14 mg/dL (7-18) Pending Creatinine 0.5 MG/DL (0.55-1.30) L 0.4 MG/DL (0.55-1.30) L Pending Estimat Glomerular Filtration Rate mL/min (>60) mL/min (>60) Pending Glucose Level 133 MG/DL (74-106) H 84 MG/DL (74-106) Pending Calcium Level 7.4 MG/DL (8.5-10.1) L 7.7 MG/DL (8.5-10.1) L Pending White Blood Count 9.0 K/UL (4.8-10.8) Red Blood Count 3.26 M/UL (4.20-5.40) L Hemoglobin 8.4 G/DL (12.0-16.0) L Hematocrit 25.1 % (37.0-47.0) L Mean Corpuscular Volume 77 FL (80-99) L Mean Corpuscular Hemoglobin 25.7 PG (27.0-31.0) L Mean Corpuscular Hemoglobin Concent 33.4 G/DL (32.0-36.0) Red Cell Distribution Width 20.0 % (11.6-14.8) H Platelet Count 250 K/UL (150-450) Mean Platelet Volume 5.7 FL (6.5-10.1) L Neutrophils (%) (Auto) 79.2 % (45.0-75.0) H Lymphocytes (%) (Auto) 7.9 % (20.0-45.0) L Monocytes (%) (Auto) 8.4 % (1.0-10.0) Eosinophils (%) (Auto) 3.9 % (0.0-3.0) H Basophils (%) (Auto) 0.6 % (0.0-2.0) Total Bilirubin 0.3 MG/DL (0.2-1.0) Aspartate Amino Transf (AST/SGOT) 169 U/L (15-37) H Alanine Aminotransferase (ALT/SGPT) 120 U/L (12-78) H Alkaline Phosphatase 535 U/L (46-116) H Total Protein 4.8 G/DL (6.4-8.2) L Albumin 0.9 G/DL (3.4-5.0) L Globulin 3.9 g/dL Albumin/Globulin Ratio 0.2 (1.0-2.7) L Urine Osmolality Pending Current Medications Medications (Trade) Dose Ordered Sig/Lupe Route PRN Reason Start Time Stop Time Status Last Admin Dose Admin Acetaminophen (Tylenol) 650 mg Q4H PRN GT Mild Pain/Temp > 100.5 11/09/18 05:00 12/09/18 04:59 11/24/18 21:50 Amlodipine Besylate (Norvasc) 10 mg DAILY GT 11/09/18 09:00 12/09/18 08:59 11/30/18 09:56 Bisacodyl (Dulcolax) 10 mg DAILY PRN RECTAL Constipation 11/09/18 05:00 12/09/18 04:59 Chlorhexidine Gluconate (Corazon-Hex 2%) 1 applic DAILY@2000 TOPIC 11/12/18 20:00 12/12/18 19:59 11/29/18 20:24 Dextrose (Dextrose 50%) 25 ml Q30M PRN IV Hypoglycemia 11/09/18 04:45 12/09/18 04:44 Dextrose (Dextrose 50%) 50 ml Q30M PRN IV Hypoglycemia 11/09/18 04:45 12/09/18 04:44 11/09/18 09:09 Enoxaparin Sodium (Lovenox) 40 mg DAILY SUBQ 11/09/18 09:00 12/09/18 08:59 11/30/18 09:59 Famotidine (Pepcid) 20 mg EVERY 12 HOURS GT 11/09/18 21:00 12/09/18 08:59 11/30/18 09:37 Insulin Aspart (NovoLOG) Q6HR SUBQ 11/09/18 06:00 12/09/18 05:59 11/30/18 12:19 Insulin Detemir (Levemir) 4 units EVERY 12 HOURS SUBQ 11/16/18 21:00 12/09/18 08:59 11/30/18 09:58 Labetalol HCl (Normodyne) 200 mg Q8HR GT 11/09/18 06:00 12/09/18 05:59 11/30/18 13:27 Lactulose (Cephulac) 10 gm THREE TIMES A DAY GT 11/27/18 18:00 12/27/18 12:59 11/30/18 13:25 Levetiracetam (Keppra) 1,500 mg Q12HR GT 11/09/18 09:00 12/09/18 08:59 11/30/18 09:37 Magnesium Hydroxide (Mom) 30 ml DAILY PRN GT Constipation 11/09/18 05:00 12/09/18 04:59 Metronidazole (Flagyl) 500 mg EVERY 8 HOURS GT 11/30/18 14:00 12/05/18 13:59 11/30/18 13:25 Micafungin Sodium 100 mg/Sodium Chloride 100 ml @ 100 mls/hr Q24H IVPB 11/29/18 14:00 12/06/18 13:59 11/30/18 13:28 Ondansetron HCl (Zofran) 4 mg Q6H PRN GT Nausea & Vomiting 11/09/18 05:00 12/09/18 04:59 Phenobarbital (PHENobarbital) 60 mg BID GT 11/09/18 09:00 12/09/18 08:59 11/30/18 09:37 Phenytoin (Dilantin) 100 mg Q8HR GT 11/09/18 06:00 12/09/18 05:59 11/30/18 13:26 Polyethylene Glycol (Miralax) 17 gm DAILYPRN PRN GT Constipation 11/14/18 10:30 12/12/18 10:29 Polymyxin B Sulfate 250440 units/Dextrose 550 ml @ 550 mls/hr EVERY 12 HOURS IV 11/26/18 21:00 12/03/18 20:59 11/30/18 09:45 Sennosides (Senokot) 8.6 mg EVERY 12 HOURS GT 11/09/18 21:00 12/09/18 08:59 11/30/18 09:38 Vancomycin HCl (Vanco rx to dose) 1 ea DAILY PRN MISC Per rx protocol 11/28/18 11:45 12/28/18 11:44 Vancomycin HCl 1 gm/Dextrose 275 ml @ 183.708 mls/hr Q12HR@0400,1600 IVPB 11/28/18 16:00 12/03/18 15:59 11/30/18 13:28 Dasha Crews MD Nov 30, 2018 14:20
--- NOTE | 2018-11-30 14:24 | Surgery Progress Note ---
Surgery Progress Note Subjective Additional Comments no acute events Objective Last 24 Hour Vital Signs Date Time Temp Pulse Resp B/P (MAP) Pulse Ox O2 Delivery O2 Flow Rate FiO2 11/30/18 13:27 71 115/63 11/30/18 13:19 70 23 30 11/30/18 12:00 69 11/30/18 12:00 6.0 30 11/30/18 12:00 Mechanical Ventilator 6.0 11/30/18 10:43 73 20 30 11/30/18 09:56 71 122/68 11/30/18 08:45 70 21 30 11/30/18 08:00 Mechanical Ventilator 6.0 11/30/18 08:00 6.0 30 11/30/18 08:00 69 11/30/18 06:51 70 21 30 11/30/18 06:05 73 138/71 11/30/18 06:05 138/71 11/30/18 05:22 73 22 30 11/30/18 04:00 97.2 74 20 138/71 (93) 100 11/30/18 04:00 71 11/30/18 04:00 Mechanical Ventilator 6.0 11/30/18 04:00 6.0 30 11/30/18 03:26 70 22 30 11/30/18 01:01 71 17 30 11/30/18 00:00 96.6 75 20 127/70 (89) 100 11/30/18 00:00 75 11/30/18 00:00 6.0 30 11/30/18 00:00 Mechanical Ventilator 6.0 11/29/18 23:12 75 20 30 11/29/18 21:59 76 141/89 11/29/18 21:59 141/89 11/29/18 21:26 76 23 30 11/29/18 20:00 6.0 30 11/29/18 20:00 Mechanical Ventilator 6.0 11/29/18 20:00 79 11/29/18 20:00 97.7 79 22 141/89 (106) 100 11/29/18 19:08 76 25 30 11/29/18 17:01 75 24 30 11/29/18 16:30 Trach Collar 6.0 11/29/18 16:00 Trach Collar 6.0 11/29/18 16:00 96.3 70 21 139/79 (99) 100 11/29/18 16:00 6.0 30 11/29/18 15:26 74 11/29/18 14:56 82 20 30 I&O Intake and Output 11/29/18 11/30/18 19:00 07:00 Intake Total 2200 ml 2048.792 ml Output Total 1350 ml 900 ml Balance 850 ml 1148.792 ml Intake Free Water 150 ml 100 ml IV Total 975 ml 1658.792 ml Tube Feeding 715 ml 260 ml Other 360 ml 30 ml Output Urine Total 1350 ml 900 ml # Bowel Movements 2 3 Dressing: dry Wound: other Drains: other Cardiovascular: RSR Respiratory: clear Abdomen: soft, non-tender, present bowel sounds Extremities: no cyanosis, other Laboratory Tests Test 11/29/18 16:15 11/30/18 04:00 11/30/18 13:22 11/30/18 14:00 Sodium Level 121 MMOL/L (136-145) L 126 MMOL/L (136-145) L Pending Potassium Level 3.4 MMOL/L (3.5-5.1) L 4.0 MMOL/L (3.5-5.1) Pending Chloride Level 91 MMOL/L (98-107) L 91 MMOL/L (98-107) L Pending Carbon Dioxide Level 29 MMOL/L (21-32) 30 MMOL/L (21-32) Pending Anion Gap 1 mmol/L (5-15) L 5 mmol/L (5-15) Blood Urea Nitrogen 14 mg/dL (7-18) 14 mg/dL (7-18) Pending Creatinine 0.5 MG/DL (0.55-1.30) L 0.4 MG/DL (0.55-1.30) L Pending Estimat Glomerular Filtration Rate mL/min (>60) mL/min (>60) Pending Glucose Level 133 MG/DL (74-106) H 84 MG/DL (74-106) Pending Calcium Level 7.4 MG/DL (8.5-10.1) L 7.7 MG/DL (8.5-10.1) L Pending White Blood Count 9.0 K/UL (4.8-10.8) Red Blood Count 3.26 M/UL (4.20-5.40) L Hemoglobin 8.4 G/DL (12.0-16.0) L Hematocrit 25.1 % (37.0-47.0) L Mean Corpuscular Volume 77 FL (80-99) L Mean Corpuscular Hemoglobin 25.7 PG (27.0-31.0) L Mean Corpuscular Hemoglobin Concent 33.4 G/DL (32.0-36.0) Red Cell Distribution Width 20.0 % (11.6-14.8) H Platelet Count 250 K/UL (150-450) Mean Platelet Volume 5.7 FL (6.5-10.1) L Neutrophils (%) (Auto) 79.2 % (45.0-75.0) H Lymphocytes (%) (Auto) 7.9 % (20.0-45.0) L Monocytes (%) (Auto) 8.4 % (1.0-10.0) Eosinophils (%) (Auto) 3.9 % (0.0-3.0) H Basophils (%) (Auto) 0.6 % (0.0-2.0) Total Bilirubin 0.3 MG/DL (0.2-1.0) Aspartate Amino Transf (AST/SGOT) 169 U/L (15-37) H Alanine Aminotransferase (ALT/SGPT) 120 U/L (12-78) H Alkaline Phosphatase 535 U/L (46-116) H Total Protein 4.8 G/DL (6.4-8.2) L Albumin 0.9 G/DL (3.4-5.0) L Globulin 3.9 g/dL Albumin/Globulin Ratio 0.2 (1.0-2.7) L Urine Osmolality Pending Plan Problems: (1) Fever (2) Tongue abnormality Assessment & Plan: patients jaw clenched closed and tongue has been stuck for some time. tongue split from middle teeth and now in two. edema and unable to reduce keep tongue moist. apply lube jelly prn dryness. will monitor do not recommend surgical intervention for this current medical condition spoke with family. ENT plan to see. OMFS no intervention (3) Tracheostomy dependence (4) Sepsis Assessment & Plan: gb no stones 6mm polyp no acute surgical intervention planned trend labs improving labs improved DAILY ESTIMATED NEEDS: Needs based on Critical care, sepsis, wound 60kg adj 22-30 kcals/kg 7814-7165 total kcals 1.25-2 g protein/kg 75-120 g total protein Fluid per MD, on lasix NUTRITION DIAGNOSIS: * Swallowing difficulty r/t respiratory status as evidenced by pt is vent dep via trach and PEG dep. * Increased kcal and pro needs r/t wound healing and sepsis as evidenced by pt w/ sacral and R heel wounds, febrile (Tmax 101.5). CURRENT TF: Jevity 1.2 @50 ml/hr x16 hrs ENTERAL NUTRITION RECOMMENDATIONS: Glucerna 1.2 @65ml/hr x18 hrs + Prosource x1 daily to provide 1170ml, 1404 kcal, 70g pro + 11g pro, 942 free H2O - REC TF CHANGE AND INCREASE TO BETTER MEET EST NEEDS - TF TO BE HELD FOR ONE HR BEFORE AND AFTER DILANTIN MEDS - START @20ML/HR, ADVANCE TOLERATED 15ML/HR Q4-6 HRS TO GOAL - FLUSH PER MD, HOB OVRE 30 DEGREES ADDITIONAL RECOMMENDATIONS: 1) CALIBRATED BED SCALE W/ ADDED P200 MATTRESS + PUMP 2) ON LASIX, MONITOR LYTES AND HYDRATION STATUS DAILY 3) TF TO RUN A MAX OF 18 HRS/DAY W/ DILANTIN TID PER PHARMACY 4) REC TF CHANGE TO CARB CONTROL FORMULA 5) WOUND CARE: ADD CHAYITO BID + VIT C 250MG DAILY (5) Fever Assessment & Plan: CT A/P with findings Impression: No definite acute process Diverticulosis. No evidence of diverticulitis Extensive edema of the subcutaneous fat. 2 cm focal fluid collection/edema seen within the incision Moderate amount retained dense stool. Correlate with any clinical history of constipation Hiatal hernia. Gastrostomy Left renal parapelvic cysts Apparent prior hysterectomy (6) Decubitus skin ulcer Assessment & Plan: Pt presented on admission with full thickness sacral pressure injury.Base of wound is 20% necrotic , 80% slough. borders are macerated . Mild odor noted. (L)8.4cm x (W) 6.5cm. Periwound skin tone is darker without erythema,induration or elevation in skin temp. Both heels are non -blanchable and both are fluctuant when palpated. Tx.Plan: Clean wound with saline. Apply Therahoney. Aply Moisture Barrier paste periwound. Cover with Optifoam drsg. Change every 3 days and prn. Apply Cavilon Skin BArrier to both heels. Cover each heel with Optifoam drsg. Change every 7 days and prn. APM/DEIRDRE mattress overlay. Reposition at least every 2hours or as tolerated. Off-load heels with pillow. will follow with recs thank you Preet Hylton Nov 30, 2018 14:24
[2018-11-30 14:27] LABS: ANION GAP 7 mmol/L (5-15); BLOOD UREA NITROGEN 10 mg/dL (7-18); CALCIUM 6.4 MG/DL (8.5-10.1); CARBON DIOXIDE 25 MMOL/L (21-32); CHLORIDE 99 MMOL/L (98-107); CREATININE 0.3 MG/DL (0.55-1.30); POTASSIUM 3.1 MMOL/L (3.5-5.1); SODIUM 131 MMOL/L (136-145)
--- NOTE | 2018-11-30 16:02 | NUR ---
NURSE NOTES: Pt in bed, cleaned repositioned. bm small smear. vss. trach to vent, current settings Shiley 8, ac 14 vt 375, fi02 30% peep 5, no resp distress presented. secretions thick and mccauley. SR on the monitor, GTF Glucerna 1.2 at 65ml/hr, Ospina cath draining yellow urine. KAITLYNN PICC line intact. contact precautions in place. HOB elevated, bed lock in lowest position, will continue with pt care.
--- NOTE | 2018-11-30 19:10 | NUR ---
NURSE NOTES: Received report from Wagner RN, pt. in bed obtunded, opens eyes- non-verbal, radiation monitor on, no signs or symptoms of acute cardiac or respiratory distress noted, bed in lowest position and call light within easy reach, pt. appears to be resting comfortably in bed- comfort measures provided, bed alarm on, side rails x's3 and safety brakes locked in position, pt. appears to be tolerating current vent settings well- AC 14, TV 375, Fio2 @30% and peep 5- no distress noted, Side rails padded for seizure precautions- no seizure activity noted, Glucerna 1.2 running via G tube at 65cc/hr- no residual noted, pt. is clean and dry, KAITLYNN PICC intact and patent- TKO, Safety measures continued, will continue with plan of care.
--- NOTE | 2018-11-30 19:17 | NUR ---
NURSE NOTES: left msg with exchange Jose- regarding abnormal results- awaiting for call back from doctor.
--- NOTE | 2018-11-30 20:08 | NUR ---
NURSE NOTES: per DR. Acevedo- to order BNP for am and 20meq of potassium once via G tube- orders carried out.
[2018-11-30] MEDS: Dyna-Hex 2% Top Sol 2oz TOPIC SCH (20:18)
[2018-12-01] VITALS: BP 135/63
[2018-12-01] MEDS: Vancomycin 1 GM in D5W 275 ML IVPB SCH ×2 (03:04→16:44)
[2018-12-01 04:00] VITALS: BP 141/74
[2018-12-01 04:14] LABS: BASOPHILS % (AUTO) 0.6 % (0.0-2.0); EOSINOPHILS % (AUTO) 2.4 % (0.0-3.0); HEMATOCRIT 24.8 % (37.0-47.0); HEMOGLOBIN 8.5 G/DL (12.0-16.0); LYMPHOCYTES % (AUTO) 7.3 % (20.0-45.0); MEAN CORPUSCULAR VOLUME 78 FL (80-99); MONOCYTES % (AUTO) 8.5 % (1.0-10.0); NEUTROPHILS % (AUTO) 81.1 % (45.0-75.0); PLATELET COUNT 263 K/UL (150-450); RED CELL DISTRIBUTION WIDTH 19.5 % (11.6-14.8); WHITE BLOOD COUNT 9.2 K/UL (4.8-10.8)
[2018-12-01 04:44] LABS: ALANINE AMINOTRANSFERASE 97 U/L (12-78); ALBUMIN 1.2 G/DL (3.4-5.0); ALBUMIN/GLOBULIN RATIO 0.3 (1.0-2.7); ALKALINE PHOSPHATASE 490 U/L (46-116); ANION GAP 3 mmol/L (5-15); ASPARTATE AMINO TRANSFERASE 111 U/L (15-37); BILIRUBIN,TOTAL 0.3 MG/DL (0.2-1.0); BLOOD UREA NITROGEN 15 mg/dL (7-18); CALCIUM 7.8 MG/DL (8.5-10.1); CARBON DIOXIDE 31 MMOL/L (21-32); CHLORIDE 89 MMOL/L (98-107); CREATININE 0.3 MG/DL (0.55-1.30); PHOSPHORUS 2.1 MG/DL (2.5-4.9); POTASSIUM 3.8 MMOL/L (3.5-5.1); SODIUM 123 MMOL/L (136-145)
[2018-12-01] MEDS: Labetalol 200mg tab GT SCH ×3 (05:01→22:14)
[2018-12-01] MEDS: NovoLOG Insulin Flexpen SUBQ SCH ×3 (05:04→18:45)
[2018-12-01] MEDS: metroNIDAZOLE 500mg tab GT SCH ×3 (05:05→22:11)
[2018-12-01] MEDS: Phenytoin Susp 100mg/4ml GT SCH ×3 (06:00→22:12)
--- NOTE | 2018-12-01 06:50 | NUR ---
RESPIRATORY NOTE: Patient received mechanically ventilated on PB 840 with current ordered vent settings. Patient has trach size 8.0 Shiley cuffed that is secured with trach tie and guard. Vent alarms are functional and audible. There is an ambu bag available at the bedside and the vent is connected to a red outlet. Patient appears comfortable at this time. Will continue to monitor.
--- NOTE | 2018-12-01 07:18 | NUR ---
HAND-OFF: Report given to GILBERTO Davis RN, pt. remains stable and no signs of distress noted- aware to f/u on abnormal lab result magnesium trending down.
--- NOTE | 2018-12-01 07:20 | NUR ---
NURSE NOTES: Report received from CHARLEE Harris. Pt observed laying in bed, obtunded, opens eyes but unable to trace. Trach to vent: Shiley 8, AC 14 VT 375, fi02 30% peep 5, no resp distress noted. SR on the monitor, GTF Glucerna 1.2 at 60ml/hr. Ospina cath draining yellow urine, secure to leg. KAITLYNN PICC line dry and intact. Contact precautions in place. HOB elevated, bed lock in lowest position, call light in place.
[2018-12-01 08:00] VITALS: BP 156/90
[2018-12-01] MEDS: Polymyxin B Sulfate 500,000 UNITS in D5W 500ml 550 ML IV SCH ×2 (08:25→22:20)
[2018-12-01] MEDS: Enoxaparin 40mg Inj SUBQ SCH (08:29)
--- NOTE | 2018-12-01 08:30 | NUR ---
NURSE NOTES: Dr. Walters notified about low level Sodium, Magnesium, And Phosphate lab results. Potassium Phos and Magnesium sulfate replacement ordered.
[2018-12-01] MEDS: Sennosides 8.6mg tab GT SCH ×2 (08:31→22:14)
[2018-12-01] MEDS: levETIRAcetam 500mg/5ml Liquid GT SCH ×2 (08:34→22:15)
[2018-12-01] MEDS: Lactulose 10gm/15ml UDC GT SCH ×3 (08:36→18:28)
[2018-12-01] MEDS: Levemir Flexpen SUBQ SCH ×2 (08:36→22:18)
[2018-12-01] MEDS: PHENobarbital Elixir 30mg/7.5ml GT SCH ×2 (08:37→18:29)
[2018-12-01 09:03] LABS: BASOPHILS % (AUTO) 0.9 % (0.0-2.0); HEMATOCRIT 25.8 % (37.0-47.0); HEMOGLOBIN 8.7 G/DL (12.0-16.0); LYMPHOCYTES % (AUTO) 7.9 % (20.0-45.0); MEAN CORPUSCULAR VOLUME 76 FL (80-99); MONOCYTES % (AUTO) 8.3 % (1.0-10.0); NEUTROPHILS % (AUTO) 80.9 % (45.0-75.0); PLATELET COUNT 255 K/UL (150-450); RED BLOOD COUNT 3.37 M/UL (4.20-5.40); RED CELL DISTRIBUTION WIDTH 19.8 % (11.6-14.8); WHITE BLOOD COUNT 9.8 K/UL (4.8-10.8)
[2018-12-01 09:17] LABS: ANION GAP 4 mmol/L (5-15); BLOOD UREA NITROGEN 15 mg/dL (7-18); CALCIUM 7.6 MG/DL (8.5-10.1); CARBON DIOXIDE 29 MMOL/L (21-32); CHLORIDE 87 MMOL/L (98-107); CREATININE 0.4 MG/DL (0.55-1.30); POTASSIUM 3.8 MMOL/L (3.5-5.1); SODIUM 120 MMOL/L (136-145)
--- NOTE | 2018-12-01 09:20 | General Progress Note ---
Assessment/Plan Problem List: (1) Gram-negative pneumonia ICD Codes: J15.6 - Pneumonia due to other Gram-negative bacteria SNOMED: 739779074 (2) MRSA (methicillin resistant staphylococcus aureus) pneumonia ICD Codes: J15.212 - Pneumonia due to Methicillin resistant Staphylococcus aureus SNOMED: 127151334490522 (3) Fever ICD Codes: R50.9 - Fever, unspecified SNOMED: 076491247 (4) UTI (urinary tract infection) ICD Codes: N39.0 - Urinary tract infection, site not specified SNOMED: 05869986 (5) Tracheostomy dependence ICD Codes: Z93.0 - Tracheostomy status SNOMED: 038259237 (6) Ventilator dependence ICD Codes: Z99.11 - Dependence on respirator [ventilator] status SNOMED: 047060437 (7) Protein calorie malnutrition ICD Codes: E46 - Unspecified protein-calorie malnutrition SNOMED: 347329354 (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 SNOMED: 20788139 (9) Drug rash ICD Codes: L27.0 - Generalized skin eruption due to drugs and medicaments taken internally SNOMED: 99912889 (10) Line sepsis ICD Codes: T85.79XA - Infection and inflammatory reaction due to other internal prosthetic devices, implants and grafts, initial encounter; A41.9 - Sepsis, unspecified organism SNOMED: 01869892, 308370288 (11) Bacteremia ICD Codes: R78.81 - Bacteremia SNOMED: 0595732 (12) Hyponatremia ICD Codes: E87.1 - Hypo-osmolality and hyponatremia SNOMED: 52679835 (13) Sepsis ICD Codes: A41.9 - Sepsis, unspecified organism SNOMED: 98704520 (14) Seizure disorder ICD Codes: G40.909 - Epilepsy, unspecified, not intractable, without status epilepticus SNOMED: 922811556 (15) Diabetes ICD Codes: E11.9 - Type 2 diabetes mellitus without complications SNOMED: 92083524 (16) Colon adenocarcinoma ICD Codes: C18.9 - Malignant neoplasm of colon, unspecified SNOMED: 601118596 (17) Anoxic brain damage ICD Codes: G93.1 - Anoxic brain damage, not elsewhere classified SNOMED: 479973218 (18) Decubitus skin ulcer ICD Codes: L89.90 - Pressure ulcer of unspecified site, unspecified stage SNOMED: 546625492 Status: unchanged Assessment/Plan: 78-year-old female who is trach dependent who [facility] and found to have UTI and bacteremia. 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 fungal uti vs colonization ID consult appreciate Rec Vancomycin and Meropenem started 11/16 ( Zosyn stopped) , fungal coverage with Diflucan added 11/18. Repeat sputum cultures with RAULTELLA PLANTICOA and PROVIDENCIA STUARTI resistant to most antibiotics Developed morbilliform rash on meropenem, this was stopped and rash is better, has persistent fevers. Started Polymyxin and flagyl 11/21. Added vancomycin and micafungin on 11/24. Day 8 of 10 of abx picc cultures, no growth so far. repeat sputum cultures Organism 1 A.BAUMANII COMPLX - MDR GROWTH: 4+ Organism 2 PSEUDOMONAS AERUGINOSA ACIBCX-MDR PSE AERUGI M.I.C. RX M.I.C. RX --------- --- --------- --- CEFTAZIDIME >=64 R 2 S CEFTRIAXONE >=64 R CEFEPIME >=64 R <=1 S CIPROFLOXACIN >=4 R <=0.25 S GENTAMICIN >=16 R <=1 S LEVOFLOXACIN >=8 R 0.5 S IMIPENEM >=16 R >=16 R TRIMETHOPRIM/SULFA <=20 S AMIKACIN <=2 S PIPERACILLIN/TAZOBACTAM 8 S Discussed with daughter at bedside. CT abdomen pelvis shows no acute process Removed PICC and place new line 11/13/18 Echo to eval for vegetation negative Chest x-ray reviewed, no change #hyponatremia, hypotonic. Intravascularly depleted vs SIADH s/p IV NS which has not corrected sodium. Serum Cortisol and TSH WNL, valproic acid stopped. Urea unavailable at the hospital. Free water stopped via GT. s/p Albumin/Furosemide, improved to 131, now back down to 121. Will repeat peripheral sample instead of sample from central line urine osmol, serum urea, urine sodium reviewed nephrology consult with Dr. Diana Sommers. # Transaminitis - worsening, meds vs passive congestion - trend lft's - GI consult, appreciate recs - ab us: reviewed - hep panel negative #Elevated troponin secondary to sepsis versus ACS Cardiology consult, appreciate recs Medications per cardiology #Microcytic anemia- mixed anemia of chronic inflammation and iron deficiency. Start ferrous sulfate TID , transfused 1 uprbc 11/27. hemoglobin stable #Hypertension- improved Continue current medications, hydralazine as needed hypertension #Vent dependent Pulmonary consult, appreciate recs Vent management per pulmonary #Hypokalemia, hypophosphatemia, hypomagnesemia Replace, continue to monitor # Chronic tongue wound Supportive care On examination the patient has a sharp lower incisor present that is likely the culprit for the tongue laceration when she was intubated in the prior hospitalization at [facility] OMFS consultation Dr. Benavides completed ( no note left ) and I spoke with him over the phone after the visit. He does not recommend any surgery. ONLY bite block MOLT if available to decompress the tongue and get the remainder teeth out of the tongue way. Keep moisture in the lips and tongue. ENT consult difficult to obtain- pending # History of mood disorder Seen by psychiatry and on Depakote. Level was checked # Seizure history - Discussed with Dr. Eric who knew the patient from [facility] and confirmed that she did have seizure activity and was on multiple AED regimen. - Will continue Depakote ( 28 level ) and (Phenytoin 4.3 ) - no active seizure activity at this time. Keep current dose. - Both Dr. Eric and Mariana not available to come to [facility] for consult and not acute need at this time. #Diabetes Mellitus, controlled - glucose noted in the 90-110's - Decreased Levemir to 4 units q 12 hours # Disposition - SNF when cleared by ID. Full code I discussed goals of care and current condition with daughter at bedside again. She wants mom to be transferred to [facility]. I spent 15 minutes at bedside discussing goals of care with daughter. prognosis guarded timing of this note may not reflect time of encounter. I spent 40 minutes on this encounter. Great than 50 percent spent of care planning. Subjective Date patient seen: Dec 01, 2018 ROS Limited/Unobtainable: Yes Allergies: Coded Allergies: Crayfish (Unverified Allergy, Unknown, 11/11/18) Uncoded Allergies: Crawfish (Allergy, Unknown, 11/09/18) Subjective obtunded on vent, afebrile On broad spectrum antibiotics day 8 of 10 . Added micafungin and vancomycin per ID. fevers resolved persistent hyponatremia. Nephrology consulted. I discussed her condition and prognosis at length with daughter at bedside again. Objective Last 24 Hour Vital Signs Date Time Temp Pulse Resp B/P (MAP) Pulse Ox O2 Delivery O2 Flow Rate FiO2 12/01/18 08:47 76 24 30 12/01/18 08:32 77 156/90 12/01/18 08:00 Mechanical Ventilator 6.0 12/01/18 08:00 6.0 30 12/01/18 08:00 97.5 77 16 156/90 (112) 100 12/01/18 06:39 75 26 30 12/01/18 05:30 77 24 30 12/01/18 05:01 83 139/71 12/01/18 04:00 76 12/01/18 04:00 6.0 30 12/01/18 04:00 Mechanical Ventilator 6.0 12/01/18 04:00 98.1 88 20 141/74 (96) 100 12/01/18 03:30 77 24 30 12/01/18 01:30 79 26 30 12/01/18 00:00 79 12/01/18 00:00 Mechanical Ventilator 6.0 12/01/18 00:00 6.0 30 12/01/18 00:00 97.9 84 20 135/63 (87) 100 11/30/18 23:30 77 20 30 11/30/18 21:09 88 140/76 11/30/18 21:00 78 21 30 11/30/18 20:00 6.0 30 11/30/18 20:00 Mechanical Ventilator 6.0 11/30/18 20:00 80 20 30 11/30/18 20:00 80 11/30/18 20:00 98.0 80 18 140/72 (94) 100 11/30/18 19:00 79 28 100 Mechanical Ventilator 30 11/30/18 17:16 76 21 30 11/30/18 16:00 97.2 74 20 121/64 (83) 100 11/30/18 16:00 6.0 30 11/30/18 16:00 Mechanical Ventilator 6.0 11/30/18 16:00 69 11/30/18 14:47 72 22 30 11/30/18 13:27 71 115/63 11/30/18 13:19 70 23 30 11/30/18 12:00 69 11/30/18 12:00 6.0 30 11/30/18 12:00 96.9 71 20 122/68 (86) 100 11/30/18 12:00 Mechanical Ventilator 6.0 11/30/18 10:43 73 20 30 11/30/18 09:56 71 122/68 Intake and Output 11/30/18 12/01/18 18:59 06:59 Intake Total 2155.000 ml 1502.416 ml Output Total 620 ml 1150 ml Balance 1535.000 ml 352.416 ml IV Total 1250.000 ml 917.416 ml Tube Feeding 845 ml 585 ml Other 60 ml Output Urine Total 620 ml 1150 ml # Bowel Movements 1 1 Laboratory Tests 11/30/18 13:22: Urine Osmolality 388L 11/30/18 14:00: Sodium Level 131L, Potassium Level 3.1L, Chloride Level 99, Carbon Dioxide Level 25, Anion Gap 7, Blood Urea Nitrogen 10, Creatinine 0.3L, Estimat Glomerular Filtration Rate , Glucose Level 141H, Calcium Level 6.4L 12/01/18 03:30: Sodium Level 123L, Potassium Level 3.8, Chloride Level 89L, Carbon Dioxide Level 31, Anion Gap 3L, Blood Urea Nitrogen 15, Creatinine 0.3L, Estimat Glomerular Filtration Rate , Glucose Level 118H, Calcium Level 7.8#L, White Blood Count 9.2, Red Blood Count 3.20L, Hemoglobin 8.5L, Hematocrit 24.8L, Mean Corpuscular Volume 78L, Mean Corpuscular Hemoglobin 26.5L, Mean Corpuscular Hemoglobin Concent 34.2, Red Cell Distribution Width 19.5H, Platelet Count 263, Mean Platelet Volume 6.1L, Neutrophils (%) (Auto) 81.1H, Lymphocytes (%) (Auto) 7.3L, Monocytes (%) (Auto) 8.5, Eosinophils (%) (Auto) 2.4, Basophils (%) (Auto ) 0.6, Urine Random Sodium 99, Phosphorus Level 2.1L, Magnesium Level 1.0L, Total Bilirubin 0.3, Aspartate Amino Transf (AST/SGOT) 111H, Alanine Aminotransferase (ALT/SGPT) 97H, Alkaline Phosphatase 490H, Pro-B-Type Natriuretic Peptide 881H, Total Protein 5.0L, Albumin 1.2L, Globulin 3.8, Albumin/Globulin Ratio 0.3L 12/01/18 08:55: Sodium Level [Pending], Potassium Level [Pending], Chloride Level [Pending], Carbon Dioxide Level [Pending], Blood Urea Nitrogen [Pending], Creatinine [ Pending], Estimat Glomerular Filtration Rate [Pending], Glucose Level [Pending] , Calcium Level [Pending], White Blood Count 9.8, Red Blood Count 3.37L, Hemoglobin 8.7L, Hematocrit 25.8L, Mean Corpuscular Volume 76L, Mean Corpuscular Hemoglobin 25.6L, Mean Corpuscular Hemoglobin Concent 33.5, Red Cell Distribution Width 19.8H, Platelet Count 255, Mean Platelet Volume 5.6L, Neutrophils (%) (Auto) 80.9H, Lymphocytes (%) (Auto) 7.9L, Monocytes (%) (Auto) 8.3, Eosinophils (%) (Auto) 2.0, Basophils (%) (Auto) 0.9, Phosphorus Level [ Pending], Magnesium Level [Pending], Total Bilirubin [Pending], Aspartate Amino Transf (AST/SGOT) [Pending], Alanine Aminotransferase (ALT/SGPT) [Pending], Alkaline Phosphatase [Pending], Pro-B-Type Natriuretic Peptide [Pending], Total Protein [Pending], Albumin [Pending], Globulin [Pending] Height (Feet): 5 Height (Inches): 8.00 Weight (Pounds): 208 Objective General Appearance: no apparent distress, other - unresponsive on vent EENT: PERRL/EOMI, other - enlarged tongue protruding, lower lip severely swollen Neck: supple Cardiovascular: normal rate, regular rhythm Respiratory/Chest: lungs clear Abdomen: soft Neurologic: unresponsive Skin: Morbilliform rash to bilateral upper extremities and thighs Neftaly Walters M.D. Dec 01, 2018 09:20
--- NOTE | 2018-12-01 09:26 | General Progress Note ---
Assessment/Plan Status: unchanged Assessment/Plan: (1) Abnormal LFTs ICD Codes: R94.5 - Abnormal results of liver function studies SNOMED: 385137368 (2) Decubitus skin ulcer ICD Codes: L89.90 - Pressure ulcer of unspecified site, unspecified stage SNOMED: 589791453 (3) Protein calorie malnutrition ICD Codes: E46 - Unspecified protein-calorie malnutrition SNOMED: 604601882 (4) Colon adenocarcinoma ICD Codes: C18.9 - Malignant neoplasm of colon, unspecified SNOMED: 017571716 (5) Sepsis ICD Codes: A41.9 - Sepsis, unspecified organism SNOMED: 66613316 (6) Tracheostomy dependence ICD Codes: Z93.0 - Tracheostomy status SNOMED: 845202308 (7) 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 Humphries. Assessment/Plan Assessment - Iron deficiency anemia - abnormal LFT - ? meds, passive congestion - dysphagia, s/p GT - Resp, failure, s/p Trach - hepatitis panel negative Recommendations - Continue TF - Monitor LFT - follow CBC - Conservative approach given poor healt- -CT and us reviewed Subjective ROS Limited/Unobtainable: No Allergies: Coded Allergies: Crayfish (Unverified Allergy, Unknown, 11/11/18) Uncoded Allergies: Crawfish (Allergy, Unknown, 11/09/18) Subjective fever last night had BM Objective Last 24 Hour Vital Signs Date Time Temp Pulse Resp B/P (MAP) Pulse Ox O2 Delivery O2 Flow Rate FiO2 12/01/18 08:47 76 24 30 12/01/18 08:32 77 156/90 12/01/18 08:00 Mechanical Ventilator 6.0 12/01/18 08:00 6.0 30 12/01/18 08:00 97.5 77 16 156/90 (112) 100 12/01/18 06:39 75 26 30 12/01/18 05:30 77 24 30 12/01/18 05:01 83 139/71 12/01/18 04:00 76 12/01/18 04:00 6.0 30 12/01/18 04:00 Mechanical Ventilator 6.0 12/01/18 04:00 98.1 88 20 141/74 (96) 100 12/01/18 03:30 77 24 30 12/01/18 01:30 79 26 30 12/01/18 00:00 79 12/01/18 00:00 Mechanical Ventilator 6.0 12/01/18 00:00 6.0 30 12/01/18 00:00 97.9 84 20 135/63 (87) 100 11/30/18 23:30 77 20 30 11/30/18 21:09 88 140/76 11/30/18 21:00 78 21 30 11/30/18 20:00 6.0 30 11/30/18 20:00 Mechanical Ventilator 6.0 11/30/18 20:00 80 20 30 11/30/18 20:00 80 11/30/18 20:00 98.0 80 18 140/72 (94) 100 11/30/18 19:00 79 28 100 Mechanical Ventilator 30 11/30/18 17:16 76 21 30 11/30/18 16:00 97.2 74 20 121/64 (83) 100 11/30/18 16:00 6.0 30 11/30/18 16:00 Mechanical Ventilator 6.0 11/30/18 16:00 69 11/30/18 14:47 72 22 30 11/30/18 13:27 71 115/63 11/30/18 13:19 70 23 30 11/30/18 12:00 69 11/30/18 12:00 6.0 30 11/30/18 12:00 96.9 71 20 122/68 (86) 100 11/30/18 12:00 Mechanical Ventilator 6.0 11/30/18 10:43 73 20 30 11/30/18 09:56 71 122/68 Intake and Output 11/30/18 12/01/18 18:59 06:59 Intake Total 2155.000 ml 1502.416 ml Output Total 620 ml 1150 ml Balance 1535.000 ml 352.416 ml IV Total 1250.000 ml 917.416 ml Tube Feeding 845 ml 585 ml Other 60 ml Output Urine Total 620 ml 1150 ml # Bowel Movements 1 1 Laboratory Tests 11/30/18 13:22: Urine Osmolality 388L 11/30/18 14:00: Sodium Level 131L, Potassium Level 3.1L, Chloride Level 99, Carbon Dioxide Level 25, Anion Gap 7, Blood Urea Nitrogen 10, Creatinine 0.3L, Estimat Glomerular Filtration Rate , Glucose Level 141H, Calcium Level 6.4L 12/01/18 03:30: Sodium Level 123L, Potassium Level 3.8, Chloride Level 89L, Carbon Dioxide Level 31, Anion Gap 3L, Blood Urea Nitrogen 15, Creatinine 0.3L, Estimat Glomerular Filtration Rate , Glucose Level 118H, Calcium Level 7.8#L, White Blood Count 9.2, Red Blood Count 3.20L, Hemoglobin 8.5L, Hematocrit 24.8L, Mean Corpuscular Volume 78L, Mean Corpuscular Hemoglobin 26.5L, Mean Corpuscular Hemoglobin Concent 34.2, Red Cell Distribution Width 19.5H, Platelet Count 263, Mean Platelet Volume 6.1L, Neutrophils (%) (Auto) 81.1H, Lymphocytes (%) (Auto) 7.3L, Monocytes (%) (Auto) 8.5, Eosinophils (%) (Auto) 2.4, Basophils (%) (Auto ) 0.6, Urine Random Sodium 99, Phosphorus Level 2.1L, Magnesium Level 1.0L, Total Bilirubin 0.3, Aspartate Amino Transf (AST/SGOT) 111H, Alanine Aminotransferase (ALT/SGPT) 97H, Alkaline Phosphatase 490H, Pro-B-Type Natriuretic Peptide 881H, Total Protein 5.0L, Albumin 1.2L, Globulin 3.8, Albumin/Globulin Ratio 0.3L 12/01/18 08:55: Sodium Level [Pending], Potassium Level [Pending], Chloride Level [Pending], Carbon Dioxide Level [Pending], Blood Urea Nitrogen [Pending], Creatinine [ Pending], Estimat Glomerular Filtration Rate [Pending], Glucose Level [Pending] , Calcium Level [Pending], White Blood Count 9.8, Red Blood Count 3.37L, Hemoglobin 8.7L, Hematocrit 25.8L, Mean Corpuscular Volume 76L, Mean Corpuscular Hemoglobin 25.6L, Mean Corpuscular Hemoglobin Concent 33.5, Red Cell Distribution Width 19.8H, Platelet Count 255, Mean Platelet Volume 5.6L, Neutrophils (%) (Auto) 80.9H, Lymphocytes (%) (Auto) 7.9L, Monocytes (%) (Auto) 8.3, Eosinophils (%) (Auto) 2.0, Basophils (%) (Auto) 0.9, Phosphorus Level [ Pending], Magnesium Level [Pending], Total Bilirubin [Pending], Aspartate Amino Transf (AST/SGOT) [Pending], Alanine Aminotransferase (ALT/SGPT) [Pending], Alkaline Phosphatase [Pending], Pro-B-Type Natriuretic Peptide [Pending], Total Protein [Pending], Albumin [Pending], Globulin [Pending] Height (Feet): 5 Height (Inches): 8.00 Weight (Pounds): 208 General Appearance: no apparent distress EENT: normal ENT inspection Neck: supple Cardiovascular: normal rate Respiratory/Chest: decreased breath sounds Abdomen: normal bowel sounds, non tender, soft Extremities: non-tender Casper Humphries MD Dec 01, 2018 09:26
[2018-12-01 09:28] LABS: ALANINE AMINOTRANSFERASE 89 U/L (12-78); ALBUMIN 1.1 G/DL (3.4-5.0); ALBUMIN/GLOBULIN RATIO 0.3 (1.0-2.7); ALKALINE PHOSPHATASE 481 U/L (46-116); ASPARTATE AMINO TRANSFERASE 100 U/L (15-37); BILIRUBIN,TOTAL 0.3 MG/DL (0.2-1.0)
[2018-12-01] MEDS ORDERED: Potassium Phosphate 30 MM in NS 275 ML IV ONE (10:00)
[2018-12-01 12:00] VITALS: BP 146/74
[2018-12-01] MEDS ORDERED: NaCl 3% 500ml 250 ML IV ONE ×3 (12:00→23:00)
[2018-12-01] MEDS ORDERED: Cathflo Alteplase 2mg Inj INJ ONE (13:00)
--- NOTE | 2018-12-01 13:06 | NUR ---
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 97.5 HR 77 RR 24 B/P 156/90 AC 14 TV 375 FIO2 30% PEEP 5 NA 120 AST 100 ALT 84 ALK PHOS 481 BUN 956 IS: LASIX IV K-PHOS IV MICAFUNGIN IV VANCO IV NACL 3% POLYMYXIN IV FLUID RESTRICTIONS STEP DOWN STATUS
--- NOTE | 2018-12-01 15:07 | Surgery Progress Note ---
Surgery Progress Note Subjective Additional Comments stable exam unchanged Objective Last 24 Hour Vital Signs Date Time Temp Pulse Resp B/P (MAP) Pulse Ox O2 Delivery O2 Flow Rate FiO2 12/01/18 13:42 75 146/74 12/01/18 12:38 75 23 30 12/01/18 12:00 97.7 75 20 146/74 (98) 100 12/01/18 12:00 Mechanical Ventilator 6.0 12/01/18 12:00 6.0 30 12/01/18 11:30 77 12/01/18 10:56 74 25 30 12/01/18 08:47 76 24 30 12/01/18 08:32 77 156/90 12/01/18 08:00 Mechanical Ventilator 6.0 12/01/18 08:00 6.0 30 12/01/18 08:00 74 12/01/18 08:00 97.5 77 16 156/90 (112) 100 12/01/18 06:39 75 26 30 12/01/18 05:30 77 24 30 12/01/18 05:01 83 139/71 12/01/18 04:00 76 12/01/18 04:00 6.0 30 12/01/18 04:00 Mechanical Ventilator 6.0 12/01/18 04:00 98.1 88 20 141/74 (96) 100 12/01/18 03:30 77 24 30 12/01/18 01:30 79 26 30 12/01/18 00:00 79 12/01/18 00:00 Mechanical Ventilator 6.0 12/01/18 00:00 6.0 30 12/01/18 00:00 97.9 84 20 135/63 (87) 100 11/30/18 23:30 77 20 30 11/30/18 21:09 88 140/76 11/30/18 21:00 78 21 30 11/30/18 20:00 6.0 30 11/30/18 20:00 Mechanical Ventilator 6.0 11/30/18 20:00 80 20 30 11/30/18 20:00 80 11/30/18 20:00 98.0 80 18 140/72 (94) 100 11/30/18 19:00 79 28 100 Mechanical Ventilator 30 11/30/18 17:16 76 21 30 11/30/18 16:00 97.2 74 20 121/64 (83) 100 11/30/18 16:00 6.0 30 11/30/18 16:00 Mechanical Ventilator 6.0 11/30/18 16:00 69 I&O Intake and Output 11/30/18 12/01/18 19:00 07:00 Intake Total 2080.000 ml 1437.416 ml Output Total 620 ml 1150 ml Balance 1460.000 ml 287.416 ml IV Total 1175.000 ml 917.416 ml Tube Feeding 845 ml 520 ml Other 60 ml Output Urine Total 620 ml 1150 ml # Bowel Movements 1 1 Dressing: saturated Wound: other Drains: other Cardiovascular: RSR Respiratory: clear Abdomen: soft, present bowel sounds, non-distended Extremities: no cyanosis, other Laboratory Tests Test 12/01/18 03:30 12/01/18 08:55 White Blood Count 9.2 K/UL (4.8-10.8) 9.8 K/UL (4.8-10.8) Red Blood Count 3.20 M/UL (4.20-5.40) L 3.37 M/UL (4.20-5.40) L Hemoglobin 8.5 G/DL (12.0-16.0) L 8.7 G/DL (12.0-16.0) L Hematocrit 24.8 % (37.0-47.0) L 25.8 % (37.0-47.0) L Mean Corpuscular Volume 78 FL (80-99) L 76 FL (80-99) L Mean Corpuscular Hemoglobin 26.5 PG (27.0-31.0) L 25.6 PG (27.0-31.0) L Mean Corpuscular Hemoglobin Concent 34.2 G/DL (32.0-36.0) 33.5 G/DL (32.0-36.0) Red Cell Distribution Width 19.5 % (11.6-14.8) H 19.8 % (11.6-14.8) H Platelet Count 263 K/UL (150-450) 255 K/UL (150-450) Mean Platelet Volume 6.1 FL (6.5-10.1) L 5.6 FL (6.5-10.1) L Neutrophils (%) (Auto) 81.1 % (45.0-75.0) H 80.9 % (45.0-75.0) H Lymphocytes (%) (Auto) 7.3 % (20.0-45.0) L 7.9 % (20.0-45.0) L Monocytes (%) (Auto) 8.5 % (1.0-10.0) 8.3 % (1.0-10.0) Eosinophils (%) (Auto) 2.4 % (0.0-3.0) 2.0 % (0.0-3.0) Basophils (%) (Auto) 0.6 % (0.0-2.0) 0.9 % (0.0-2.0) Urine Random Sodium 99 mmol/L (20-110) Sodium Level 123 MMOL/L (136-145) L 120 MMOL/L (136-145) L Potassium Level 3.8 MMOL/L (3.5-5.1) 3.8 MMOL/L (3.5-5.1) Chloride Level 89 MMOL/L (98-107) L 87 MMOL/L (98-107) L Carbon Dioxide Level 31 MMOL/L (21-32) 29 MMOL/L (21-32) Anion Gap 3 mmol/L (5-15) L 4 mmol/L (5-15) L Blood Urea Nitrogen 15 mg/dL (7-18) 15 mg/dL (7-18) Creatinine 0.3 MG/DL (0.55-1.30) L 0.4 MG/DL (0.55-1.30) L Estimat Glomerular Filtration Rate mL/min (>60) mL/min (>60) Glucose Level 118 MG/DL (74-106) H 182 MG/DL (74-106) H Calcium Level 7.8 MG/DL (8.5-10.1) #L 7.6 MG/DL (8.5-10.1) L Phosphorus Level 2.1 MG/DL (2.5-4.9) L 2.0 MG/DL (2.5-4.9) L Magnesium Level 1.0 MG/DL (1.8-2.4) L 1.0 MG/DL (1.8-2.4) L Total Bilirubin 0.3 MG/DL (0.2-1.0) 0.3 MG/DL (0.2-1.0) Aspartate Amino Transf (AST/SGOT) 111 U/L (15-37) H 100 U/L (15-37) H Alanine Aminotransferase (ALT/SGPT) 97 U/L (12-78) H 89 U/L (12-78) H Alkaline Phosphatase 490 U/L (46-116) H 481 U/L (46-116) H Pro-B-Type Natriuretic Peptide 881 pg/mL (0-125) H 956 pg/mL (0-125) H Total Protein 5.0 G/DL (6.4-8.2) L 4.8 G/DL (6.4-8.2) L Albumin 1.2 G/DL (3.4-5.0) L 1.1 G/DL (3.4-5.0) L Globulin 3.8 g/dL 3.7 g/dL Albumin/Globulin Ratio 0.3 (1.0-2.7) L 0.3 (1.0-2.7) L Plan Problems: (1) Fever (2) Tongue abnormality Assessment & Plan: patients jaw clenched closed and tongue has been stuck for some time. tongue split from middle teeth and now in two. edema and unable to reduce keep tongue moist. apply lube jelly prn dryness. will monitor do not recommend surgical intervention for this current medical condition spoke with family. ENT plan to see. OMFS no intervention (3) Tracheostomy dependence (4) Sepsis Assessment & Plan: gb no stones 6mm polyp no acute surgical intervention planned trend labs improving labs improved DAILY ESTIMATED NEEDS: Needs based on Critical care, sepsis, wound 60kg adj 22-30 kcals/kg [id number] total kcals 1.25-2 g protein/kg 75-120 g total protein Fluid per MD, on lasix NUTRITION DIAGNOSIS: * Swallowing difficulty r/t respiratory status as evidenced by pt is vent dep via trach and PEG dep. * Increased kcal and pro needs r/t wound healing and sepsis as evidenced by pt w/ sacral and R heel wounds, febrile (Tmax 101.5). CURRENT TF: Jevity 1.2 @50 ml/hr x16 hrs ENTERAL NUTRITION RECOMMENDATIONS: Glucerna 1.2 @65ml/hr x18 hrs + Prosource x1 daily to provide 1170ml, 1404 kcal, 70g pro + 11g pro, 942 free H2O - REC TF CHANGE AND INCREASE TO BETTER MEET EST NEEDS - TF TO BE HELD FOR ONE HR BEFORE AND AFTER DILANTIN MEDS - START @20ML/HR, ADVANCE TOLERATED 15ML/HR Q4-6 HRS TO GOAL - FLUSH PER , HOB OVRE 30 DEGREES ADDITIONAL RECOMMENDATIONS: 1) CALIBRATED BED SCALE W/ ADDED P200 MATTRESS + PUMP 2) ON LASIX, MONITOR LYTES AND HYDRATION STATUS DAILY 3) TF TO RUN A MAX OF 18 HRS/DAY W/ DILANTIN TID PER PHARMACY 4) REC TF CHANGE TO CARB CONTROL FORMULA 5) WOUND CARE: ADD CHAYITO BID + VIT C 250MG DAILY (5) Fever Assessment & Plan: CT A/P with findings Impression: No definite acute process Diverticulosis. No evidence of diverticulitis Extensive edema of the subcutaneous fat. 2 cm focal fluid collection/edema seen within the incision Moderate amount retained dense stool. Correlate with any clinical history of constipation Hiatal hernia. Gastrostomy Left renal parapelvic cysts Apparent prior hysterectomy (6) Decubitus skin ulcer Assessment & Plan: Pt presented on admission with full thickness sacral pressure injury.Base of wound is 20% necrotic , 80% slough. borders are macerated . Mild odor noted. (L)8.4cm x (W) 6.5cm. Periwound skin tone is darker without erythema,induration or elevation in skin temp. Both heels are non -blanchable and both are fluctuant when palpated. Tx.Plan: Clean wound with saline. Apply Therahoney. Aply Moisture Barrier paste periwound. Cover with Optifoam drsg. Change every 3 days and prn. Apply Cavilon Skin BArrier to both heels. Cover each heel with Optifoam drsg. Change every 7 days and prn. APM/DEIRDRE mattress overlay. Reposition at least every 2hours or as tolerated. Off-load heels with pillow. will follow with recs thank you Preet Hylton Dec 01, 2018 15:07
--- NOTE | 2018-12-01 15:16 | Pulmonology Progress Note ---
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 Assessment/Plan Continue ventilatory support/settings reviewed Titrate down FiO2 to keep SaO2 > 90% Optimize pulmonary hygiene/mobilize as tolerated RTC and PRN HHN's Abx per ID, F/U Cx's F/U cards recs Monitor volumes and renal function PRN lasix DVT Px: LMWH ENT eval pending FC, continue to discuss GOC Wound care Subjective Allergies: Coded Allergies: Crayfish (Unverified Allergy, Unknown, 11/11/18) Uncoded Allergies: Crawfish (Allergy, Unknown, 11/09/18) Subjective AFVSS stable on vent no sig secretions no distress Objective Vital Signs Noted General Appearance: no acute distress, cachetic, other - non-verbal HEENT: normocephalic, status post trach, other - macroglossia, facial edema Respiratory/Chest: crackles/rales Cardiovascular: normal peripheral pulses, normal rate, regular rhythm Abdomen: normal bowel sounds, soft, non tender, no organomegaly, non distended , other - GT Extremities: no cyanosis, no clubbing, other - 1-2+ LEONORA Laboratory Tests 11/28/18 15:45: Urine Osmolality 291L, Urine Random Sodium 29 11/28/18 18:25: Sodium Level 125L, Potassium Level 3.3L, Chloride Level 90L, Carbon Dioxide Level 30, Anion Gap 5, Blood Urea Nitrogen 15, Creatinine 0.4L, Estimat Glomerular Filtration Rate , Glucose Level 120H, Osmolality 263L, Calcium Level 7.8L, Thyroid Stimulating Hormone (TSH) 2.816 11/29/18 04:00: Sodium Level 128L, Potassium Level 3.2L, Chloride Level 91L, Carbon Dioxide Level 32, Anion Gap 5, Blood Urea Nitrogen 15, Creatinine 0.4L, Estimat Glomerular Filtration Rate , Glucose Level 108H, Calcium Level 7.7L, White Blood Count 10.8, Red Blood Count 3.33L, Hemoglobin 8.6L, Hematocrit 25.8L, Mean Corpuscular Volume 78L, Mean Corpuscular Hemoglobin 26.0L, Mean Corpuscular Hemoglobin Concent 33.4, Red Cell Distribution Width 20.2H, Platelet Count 291, Mean Platelet Volume 5.5L, Neutrophils (%) (Auto) 77.0H, Lymphocytes (%) (Auto) 10.3L, Monocytes (%) (Auto) 6.7, Eosinophils (%) (Auto) 5.1H, Basophils (%) (Auto) 0.9, Total Bilirubin 0.3, Aspartate Amino Transf (AST /SGOT) 158H, Alanine Aminotransferase (ALT/SGPT) 105H, Alkaline Phosphatase 507H , Total Protein 4.9L, Albumin 0.9L, Globulin 4.0, Albumin/Globulin Ratio 0.2L, Cortisol AM Sample 15.5 Current Medications Medications (Trade) Dose Ordered Sig/Lupe Route PRN Reason Start Time Stop Time Status Last Admin Dose Admin Acetaminophen (Tylenol) 650 mg Q4H PRN GT Mild Pain/Temp > 100.5 11/09/18 05:00 12/09/18 04:59 11/24/18 21:50 Amlodipine Besylate (Norvasc) 10 mg DAILY GT 11/09/18 09:00 12/09/18 08:59 11/29/18 09:04 Bisacodyl (Dulcolax) 10 mg DAILY PRN RECTAL Constipation 11/09/18 05:00 12/09/18 04:59 Calcium Carbonate (Tums) 500 mg EVERY 8 HOURS GT 11/09/18 14:00 12/09/18 08:59 11/29/18 05:06 Chlorhexidine Gluconate (Corazon-Hex 2%) 1 applic DAILY@1999 TOPIC 11/12/18 20:00 12/12/18 19:59 11/28/18 20:05 Dextrose (Dextrose 50%) 25 ml Q30M PRN IV Hypoglycemia 11/09/18 04:45 12/09/18 04:44 Dextrose (Dextrose 50%) 50 ml Q30M PRN IV Hypoglycemia 11/09/18 04:45 12/09/18 04:44 11/09/18 09:09 Enoxaparin Sodium (Lovenox) 40 mg DAILY SUBQ 11/09/18 09:00 12/09/18 08:59 11/29/18 09:08 Famotidine (Pepcid) 20 mg EVERY 12 HOURS GT 11/09/18 21:00 12/09/18 08:59 11/29/18 09:04 Hydralazine HCl (Apresoline) 5 mg EVERY 8 HOURS GT 11/09/18 06:00 12/09/18 05:59 11/28/18 14:08 Insulin Aspart (NovoLOG) Q6HR SUBQ 11/09/18 06:00 12/09/18 05:59 11/29/18 05:07 Insulin Detemir (Levemir) 4 units EVERY 12 HOURS SUBQ 11/16/18 21:00 12/09/18 08:59 11/29/18 09:18 Labetalol HCl (Normodyne) 200 mg Q8HR GT 11/09/18 06:00 12/09/18 05:59 11/29/18 05:06 Lactulose (Cephulac) 10 gm THREE TIMES A DAY GT 11/27/18 18:00 12/27/18 12:59 11/29/18 09:22 Levetiracetam (Keppra) 1,500 mg Q12HR GT 11/09/18 09:00 12/09/18 08:59 11/29/18 09:05 Magnesium Hydroxide (Mom) 30 ml DAILY PRN GT Constipation 11/09/18 05:00 12/09/18 04:59 Magnesium Oxide (Mag-Ox 400mg) 400 mg EVERY 8 HOURS GT 11/09/18 14:00 12/09/18 08:59 11/29/18 05:06 Metronidazole (Flagyl) 500 mg EVERY 8 HOURS ORAL 11/28/18 14:00 12/05/18 13:59 11/29/18 05:06 Micafungin Sodium 100 mg/Sodium Chloride 100 ml @ 100 mls/hr Q24H IVPB 11/24/18 14:00 12/01/18 13:59 11/28/18 14:08 Ondansetron HCl (Zofran) 4 mg Q6H PRN GT Nausea & Vomiting 11/09/18 05:00 12/09/18 04:59 Phenobarbital (PHENobarbital) 60 mg BID GT 11/09/18 09:00 12/09/18 08:59 11/29/18 09:07 Phenytoin (Dilantin) 100 mg Q8HR GT 11/09/18 06:00 12/09/18 05:59 11/29/18 06:01 Polyethylene Glycol (Miralax) 17 gm DAILYPRN PRN GT Constipation 11/14/18 10:30 12/12/18 10:29 Polymyxin B Sulfate 881164 units/Dextrose 550 ml @ 550 mls/hr EVERY 12 HOURS IV 11/26/18 21:00 12/03/18 20:59 11/29/18 09:08 Sennosides (Senokot) 8.6 mg EVERY 12 HOURS GT 11/09/18 21:00 12/09/18 08:59 11/29/18 09:03 Sodium Chloride 1,000 ml @ 100 mls/hr Q10H IV 11/28/18 17:25 12/28/18 17:24 11/29/18 03:01 Vancomycin HCl (Vanco rx to dose) 1 ea DAILY PRN MISC Per rx protocol 11/28/18 11:45 12/28/18 11:44 Vancomycin HCl 1 gm/Dextrose 275 ml @ 183.708 mls/hr Q12HR@0400,1600 IVPB 11/28/18 16:00 12/03/18 15:59 11/29/18 03:03 Subjective ROS Limited/Unobtainable: No Allergies: Coded Allergies: Crayfish (Unverified Allergy, Unknown, 11/11/18) Uncoded Allergies: Crawfish (Allergy, Unknown, 11/09/18) Objective Last 24 Hour Vital Signs Date Time Temp Pulse Resp B/P (MAP) Pulse Ox O2 Delivery O2 Flow Rate FiO2 12/01/18 13:42 75 146/74 12/01/18 12:38 75 23 30 12/01/18 12:00 97.7 75 20 146/74 (98) 100 12/01/18 12:00 Mechanical Ventilator 6.0 12/01/18 12:00 6.0 30 12/01/18 11:30 77 12/01/18 10:56 74 25 30 12/01/18 08:47 76 24 30 12/01/18 08:32 77 156/90 12/01/18 08:00 Mechanical Ventilator 6.0 12/01/18 08:00 6.0 30 12/01/18 08:00 74 12/01/18 08:00 97.5 77 16 156/90 (112) 100 12/01/18 06:39 75 26 30 12/01/18 05:30 77 24 30 12/01/18 05:01 83 139/71 12/01/18 04:00 76 12/01/18 04:00 6.0 30 12/01/18 04:00 Mechanical Ventilator 6.0 12/01/18 04:00 98.1 88 20 141/74 (96) 100 12/01/18 03:30 77 24 30 12/01/18 01:30 79 26 30 12/01/18 00:00 79 12/01/18 00:00 Mechanical Ventilator 6.0 12/01/18 00:00 6.0 30 12/01/18 00:00 97.9 84 20 135/63 (87) 100 11/30/18 23:30 77 20 30 11/30/18 21:09 88 140/76 11/30/18 21:00 78 21 30 11/30/18 20:00 6.0 30 11/30/18 20:00 Mechanical Ventilator 6.0 11/30/18 20:00 80 20 30 11/30/18 20:00 80 11/30/18 20:00 98.0 80 18 140/72 (94) 100 11/30/18 19:00 79 28 100 Mechanical Ventilator 30 11/30/18 17:16 76 21 30 11/30/18 16:00 97.2 74 20 121/64 (83) 100 11/30/18 16:00 6.0 30 11/30/18 16:00 Mechanical Ventilator 6.0 11/30/18 16:00 69 Intake and Output 11/30/18 12/01/18 19:00 07:00 Intake Total 2080.000 ml 1437.416 ml Output Total 620 ml 1150 ml Balance 1460.000 ml 287.416 ml IV Total 1175.000 ml 917.416 ml Tube Feeding 845 ml 520 ml Other 60 ml Output Urine Total 620 ml 1150 ml # Bowel Movements 1 1 Laboratory Tests 12/01/18 03:30: White Blood Count 9.2, Red Blood Count 3.20L, Hemoglobin 8.5L, Hematocrit 24.8L , Mean Corpuscular Volume 78L, Mean Corpuscular Hemoglobin 26.5L, Mean Corpuscular Hemoglobin Concent 34.2, Red Cell Distribution Width 19.5H, Platelet Count 263, Mean Platelet Volume 6.1L, Neutrophils (%) (Auto) 81.1H, Lymphocytes (%) (Auto) 7.3L, Monocytes (%) (Auto) 8.5, Eosinophils (%) (Auto) 2.4, Basophils (%) (Auto) 0.6, Urine Random Sodium 99, Sodium Level 123L, Potassium Level 3.8, Chloride Level 89L, Carbon Dioxide Level 31, Anion Gap 3L, Blood Urea Nitrogen 15, Creatinine 0.3L, Estimat Glomerular Filtration Rate , Glucose Level 118H, Calcium Level 7.8#L, Phosphorus Level 2.1L, Magnesium Level 1.0L, Total Bilirubin 0.3, Aspartate Amino Transf (AST/SGOT) 111H, Alanine Aminotransferase (ALT/SGPT) 97H, Alkaline Phosphatase 490H, Pro-B-Type Natriuretic Peptide 881H, Total Protein 5.0L, Albumin 1.2L, Globulin 3.8, Albumin/Globulin Ratio 0.3L 12/01/18 08:55: White Blood Count 9.8, Red Blood Count 3.37L, Hemoglobin 8.7L, Hematocrit 25.8L , Mean Corpuscular Volume 76L, Mean Corpuscular Hemoglobin 25.6L, Mean Corpuscular Hemoglobin Concent 33.5, Red Cell Distribution Width 19.8H, Platelet Count 255, Mean Platelet Volume 5.6L, Neutrophils (%) (Auto) 80.9H, Lymphocytes (%) (Auto) 7.9L, Monocytes (%) (Auto) 8.3, Eosinophils (%) (Auto) 2.0, Basophils (%) (Auto) 0.9, Sodium Level 120L, Potassium Level 3.8, Chloride Level 87L, Carbon Dioxide Level 29, Anion Gap 4L, Blood Urea Nitrogen 15, Creatinine 0.4L, Estimat Glomerular Filtration Rate , Glucose Level 182H, Calcium Level 7.6L, Phosphorus Level 2.0L, Magnesium Level 1.0L, Total Bilirubin 0.3, Aspartate Amino Transf (AST/SGOT) 100H, Alanine Aminotransferase (ALT/SGPT) 89H, Alkaline Phosphatase 481H, Pro-B-Type Natriuretic Peptide 956H, Total Protein 4.8L, Albumin 1.1L, Globulin 3.7, Albumin/Globulin Ratio 0.3L Current Medications Medications (Trade) Dose Ordered Sig/Lupe Route PRN Reason Start Time Stop Time Status Last Admin Dose Admin Acetaminophen (Tylenol) 650 mg Q4H PRN GT Mild Pain/Temp > 100.5 11/09/18 05:00 12/09/18 04:59 11/24/18 21:50 Amlodipine Besylate (Norvasc) 10 mg DAILY GT 11/09/18 09:00 12/09/18 08:59 12/01/18 08:32 Bisacodyl (Dulcolax) 10 mg DAILY PRN RECTAL Constipation 11/09/18 05:00 12/09/18 04:59 Chlorhexidine Gluconate (Corazon-Hex 2%) 1 applic DAILY@2000 TOPIC 11/12/18 20:00 12/12/18 19:59 11/30/18 20:18 Dextrose (Dextrose 50%) 25 ml Q30M PRN IV Hypoglycemia 11/09/18 04:45 12/09/18 04:44 Dextrose (Dextrose 50%) 50 ml Q30M PRN IV Hypoglycemia 11/09/18 04:45 12/09/18 04:44 11/09/18 09:09 Enoxaparin Sodium (Lovenox) 40 mg DAILY SUBQ 11/09/18 09:00 12/09/18 08:59 12/01/18 08:29 Famotidine (Pepcid) 20 mg EVERY 12 HOURS GT 11/09/18 21:00 12/09/18 08:59 12/01/18 08:31 Insulin Aspart (NovoLOG) Q6HR SUBQ 11/09/18 06:00 12/09/18 05:59 12/01/18 11:38 Insulin Detemir (Levemir) 4 units EVERY 12 HOURS SUBQ 11/16/18 21:00 12/09/18 08:59 12/01/18 08:36 Labetalol HCl (Normodyne) 200 mg Q8HR GT 11/09/18 06:00 12/09/18 05:59 12/01/18 13:42 Lactulose (Cephulac) 10 gm THREE TIMES A DAY GT 11/27/18 18:00 12/27/18 12:59 12/01/18 12:26 Levetiracetam (Keppra) 1,500 mg Q12HR GT 11/09/18 09:00 12/09/18 08:59 12/01/18 08:34 Magnesium Hydroxide (Mom) 30 ml DAILY PRN GT Constipation 11/09/18 05:00 12/09/18 04:59 Metronidazole (Flagyl) 500 mg EVERY 8 HOURS GT 11/30/18 14:00 12/05/18 13:59 12/01/18 13:43 Micafungin Sodium 100 mg/Sodium Chloride 100 ml @ 100 mls/hr Q24H IVPB 11/29/18 14:00 12/06/18 13:59 11/30/18 13:28 Ondansetron HCl (Zofran) 4 mg Q6H PRN GT Nausea & Vomiting 11/09/18 05:00 12/09/18 04:59 Phenobarbital (PHENobarbital) 60 mg BID GT 11/09/18 09:00 12/09/18 08:59 12/01/18 08:37 Phenytoin (Dilantin) 100 mg Q8HR GT 11/09/18 06:00 12/09/18 05:59 12/01/18 13:43 Polyethylene Glycol (Miralax) 17 gm DAILYPRN PRN GT Constipation 11/14/18 10:30 12/12/18 10:29 Polymyxin B Sulfate 105096 units/Dextrose 550 ml @ 550 mls/hr EVERY 12 HOURS IV 11/26/18 21:00 12/03/18 20:59 12/01/18 08:25 Potassium Phosphate 30 mm/ Sodium Chloride 285 ml @ 47.5 mls/hr ONCE ONCE IV 12/01/18 10:00 12/01/18 15:59 12/01/18 10:44 Sennosides (Senokot) 8.6 mg EVERY 12 HOURS GT 11/09/18 21:00 12/09/18 08:59 12/01/18 08:31 Sodium Chloride 250 ml @ 30 mls/hr ONCE ONCE IV 12/01/18 13:00 12/01/18 21:19 12/01/18 13:09 Vancomycin HCl (Vanco rx to dose) 1 ea DAILY PRN MISC Per rx protocol 11/28/18 11:45 12/28/18 11:44 Vancomycin HCl 1 gm/Dextrose 275 ml @ 183.708 mls/hr Q12HR@0400,1600 IVPB 11/28/18 16:00 12/03/18 15:59 12/01/18 03:04 Eloy Vega MD Dec 01, 2018 15:16
--- NOTE | 2018-12-01 15:17 | Hematology/Onc Progress Note ---
Assessment/Plan Assessment/Plan # Anemia of chronic disease due to underlying chronic medical issues, multifactorial --> Anemia workup has been reviewed and cw acd --> No evidence of hemolysis is noted, peripheral smear has been reviewed. --> Hgb goal >7. Transfuse prn. --> hgb trend 9.1-->8.9-->9-->8.9-->8.9->7.8->8.7-->9-->8-->7.5-->9.3->8.6-->8.4 -->8.7 --> Epogen or iron indication prn --> Medications have been reviewed --> low threshold for gi evaluation and occult is negative --> bone marrow biopsy is not indicated given the other more likely causes # Leukocytosis iwth Sepsis secondary to UTI, GPC Staph Epidermidis bacteremia, Line associated infection - patient arrived to the Hospital with PICC --> as per ID consult appreciate Rec --> Continue antibiotics per ID: Continue Zosyn and vancomycin, anti fungal added--> kaykay/vanc, diflucan-->flagyl, vanc, polymyxin--> omid/flafgyl/polym/ vanc --> imaging noted --> now improved # Thrombocytosis is likely due to underlying reactive process --> if doesn't improve send off jak2 --> plt count 641k-->402k-->344-->275k-->280k-->250k-->255k # Transaminitis --> trend lft's --> GI consult, apprec recs --> ab us: reviewed # Elevated troponin secondary to sepsis versus ACS --> as per Cardiology consult, appreciate recs # Hypertension- improved --> sbp goal <150 # Vent dependent with trach --> as per Pulmonary recs # Hypokalemia # Dysphagia s/p gtube feeds # CHf hx with hyponatremia --> 1l fluid restriction # Dvt ppx with lovenox (ok to continue given occult neg) The timing of this note does not necessarily reflect the time of the patient was seen. GREATLY APPRECIATE CONSULTATION. Subjective Allergies: Coded Allergies: Crayfish (Unverified Allergy, Unknown, 11/11/18) Uncoded Allergies: Crawfish (Allergy, Unknown, 11/09/18) Subjective 11/14: no events to report, labs relatively stable, hgb 8.9, on vent 11/15: no bleeding, no chills, labs reviewed, no major changes 11/16: cxr-->bilateral interstitial edema, vs stable, on abx, on vent, contact isolation 11/17: labs reviewed, on abx, vs stable, on vent, no distress 11/18: remains on gtube feeds, is on vent, on kaykay/vanc 11/20: no events, no bleeding, kaykay, vanc, diflucan, no f/c 11/21: remains on vent, gtube feeds, no major changes, no bleeding 11/22: ct abdomen pelvis w/contrast reviewed, vs stable, no acute events, labs reviewed, remains intubated, low grade fever 11/23: reviewed meds, abx have been changed, remains altered currently 11/24: labs reviewed, vs stable, med reviewed, no sob, no distress, on vent 11/25: remains on vent, no major events, on glucerna, fluid restriction 11/27: signed consent today, no f/c, no night sweats 11/28: no f/c, on abx, on vent, no distress, picc line in 11/29: no events to report, no f/c, no bleeding noted, on vent 11/30: vs stable, no f/c, on vent, obtunded, gtube feeds 12/01: no f/c, cxr-->pulmonary edema, meds reviewed, contact precaution, on vent , labs noted Objective Objective Current Medications Medications (Trade) Dose Ordered Sig/Lupe Route PRN Reason Start Time Stop Time Status Last Admin Dose Admin Acetaminophen (Tylenol) 650 mg Q4H PRN GT Mild Pain/Temp > 100.5 11/09/18 05:00 12/09/18 04:59 11/24/18 21:50 Amlodipine Besylate (Norvasc) 10 mg DAILY GT 11/09/18 09:00 12/09/18 08:59 12/01/18 08:32 Bisacodyl (Dulcolax) 10 mg DAILY PRN RECTAL Constipation 11/09/18 05:00 12/09/18 04:59 Chlorhexidine Gluconate (Corazon-Hex 2%) 1 applic DAILY@2000 TOPIC 11/12/18 20:00 12/12/18 19:59 11/30/18 20:18 Dextrose (Dextrose 50%) 25 ml Q30M PRN IV Hypoglycemia 11/09/18 04:45 12/09/18 04:44 Dextrose (Dextrose 50%) 50 ml Q30M PRN IV Hypoglycemia 11/09/18 04:45 12/09/18 04:44 11/09/18 09:09 Enoxaparin Sodium (Lovenox) 40 mg DAILY SUBQ 11/09/18 09:00 12/09/18 08:59 12/01/18 08:29 Famotidine (Pepcid) 20 mg EVERY 12 HOURS GT 11/09/18 21:00 12/09/18 08:59 12/01/18 08:31 Insulin Aspart (NovoLOG) Q6HR SUBQ 11/09/18 06:00 12/09/18 05:59 12/01/18 11:38 Insulin Detemir (Levemir) 4 units EVERY 12 HOURS SUBQ 11/16/18 21:00 12/09/18 08:59 12/01/18 08:36 Labetalol HCl (Normodyne) 200 mg Q8HR GT 11/09/18 06:00 12/09/18 05:59 12/01/18 13:42 Lactulose (Cephulac) 10 gm THREE TIMES A DAY GT 11/27/18 18:00 12/27/18 12:59 12/01/18 12:26 Levetiracetam (Keppra) 1,500 mg Q12HR GT 11/09/18 09:00 12/09/18 08:59 12/01/18 08:34 Magnesium Hydroxide (Mom) 30 ml DAILY PRN GT Constipation 11/09/18 05:00 12/09/18 04:59 Metronidazole (Flagyl) 500 mg EVERY 8 HOURS GT 11/30/18 14:00 12/05/18 13:59 12/01/18 13:43 Micafungin Sodium 100 mg/Sodium Chloride 100 ml @ 100 mls/hr Q24H IVPB 11/29/18 14:00 12/06/18 13:59 11/30/18 13:28 Ondansetron HCl (Zofran) 4 mg Q6H PRN GT Nausea & Vomiting 11/09/18 05:00 12/09/18 04:59 Phenobarbital (PHENobarbital) 60 mg BID GT 11/09/18 09:00 12/09/18 08:59 12/01/18 08:37 Phenytoin (Dilantin) 100 mg Q8HR GT 11/09/18 06:00 12/09/18 05:59 12/01/18 13:43 Polyethylene Glycol (Miralax) 17 gm DAILYPRN PRN GT Constipation 11/14/18 10:30 12/12/18 10:29 Polymyxin B Sulfate 648443 units/Dextrose 550 ml @ 550 mls/hr EVERY 12 HOURS IV 11/26/18 21:00 12/03/18 20:59 12/01/18 08:25 Potassium Phosphate 30 mm/ Sodium Chloride 285 ml @ 47.5 mls/hr ONCE ONCE IV 12/01/18 10:00 12/01/18 15:59 12/01/18 10:44 Sennosides (Senokot) 8.6 mg EVERY 12 HOURS GT 11/09/18 21:00 12/09/18 08:59 12/01/18 08:31 Sodium Chloride 250 ml @ 30 mls/hr ONCE ONCE IV 12/01/18 13:00 12/01/18 21:19 12/01/18 13:09 Vancomycin HCl (Vanco rx to dose) 1 ea DAILY PRN MISC Per rx protocol 11/28/18 11:45 12/28/18 11:44 Vancomycin HCl 1 gm/Dextrose 275 ml @ 183.708 mls/hr Q12HR@0400,1600 IVPB 11/28/18 16:00 12/03/18 15:59 12/01/18 03:04 Last 24 Hour Vital Signs Date Time Temp Pulse Resp B/P (MAP) Pulse Ox O2 Delivery O2 Flow Rate FiO2 12/01/18 13:42 75 146/74 12/01/18 12:38 75 23 30 12/01/18 12:00 97.7 75 20 146/74 (98) 100 12/01/18 12:00 Mechanical Ventilator 6.0 12/01/18 12:00 6.0 30 12/01/18 11:30 77 12/01/18 10:56 74 25 30 12/01/18 08:47 76 24 30 12/01/18 08:32 77 156/90 12/01/18 08:00 Mechanical Ventilator 6.0 12/01/18 08:00 6.0 30 12/01/18 08:00 74 12/01/18 08:00 97.5 77 16 156/90 (112) 100 12/01/18 06:39 75 26 30 12/01/18 05:30 77 24 30 12/01/18 05:01 83 139/71 12/01/18 04:00 76 12/01/18 04:00 6.0 30 12/01/18 04:00 Mechanical Ventilator 6.0 12/01/18 04:00 98.1 88 20 141/74 (96) 100 12/01/18 03:30 77 24 30 12/01/18 01:30 79 26 30 12/01/18 00:00 79 12/01/18 00:00 Mechanical Ventilator 6.0 12/01/18 00:00 6.0 30 12/01/18 00:00 97.9 84 20 135/63 (87) 100 11/30/18 23:30 77 20 30 11/30/18 21:09 88 140/76 11/30/18 21:00 78 21 30 11/30/18 20:00 6.0 30 11/30/18 20:00 Mechanical Ventilator 6.0 11/30/18 20:00 80 20 30 11/30/18 20:00 80 11/30/18 20:00 98.0 80 18 140/72 (94) 100 11/30/18 19:00 79 28 100 Mechanical Ventilator 30 11/30/18 17:16 76 21 30 11/30/18 16:00 97.2 74 20 121/64 (83) 100 11/30/18 16:00 6.0 30 11/30/18 16:00 Mechanical Ventilator 6.0 11/30/18 16:00 69 11/30/18 14:47 72 22 30 11/30/18 13:27 71 115/63 11/30/18 13:19 70 23 30 11/30/18 12:00 69 11/30/18 12:00 6.0 30 11/30/18 12:00 96.9 71 20 122/68 (86) 100 11/30/18 12:00 Mechanical Ventilator 6.0 11/30/18 10:43 73 20 30 11/30/18 09:56 71 122/68 11/30/18 08:45 70 21 30 11/30/18 08:00 96.6 85 20 149/55 (86) 100 11/30/18 08:00 Mechanical Ventilator 6.0 11/30/18 08:00 6.0 30 11/30/18 08:00 69 11/30/18 06:51 70 21 30 11/30/18 06:05 73 138/71 11/30/18 06:05 138/71 11/30/18 05:22 73 22 30 11/30/18 04:00 97.2 74 20 138/71 (93) 100 11/30/18 04:00 71 11/30/18 04:00 Mechanical Ventilator 6.0 11/30/18 04:00 6.0 30 11/30/18 03:26 70 22 30 11/30/18 01:01 71 17 30 11/30/18 00:00 96.6 75 20 127/70 (89) 100 11/30/18 00:00 75 11/30/18 00:00 6.0 30 11/30/18 00:00 Mechanical Ventilator 6.0 11/29/18 23:12 75 20 30 11/29/18 21:59 76 141/89 11/29/18 21:59 141/89 11/29/18 21:26 76 23 30 11/29/18 20:00 6.0 30 11/29/18 20:00 Mechanical Ventilator 6.0 11/29/18 20:00 79 11/29/18 20:00 97.7 79 22 141/89 (106) 100 11/29/18 19:08 76 25 30 11/29/18 17:01 75 24 30 11/29/18 16:30 Trach Collar 6.0 11/29/18 16:00 Trach Collar 6.0 11/29/18 16:00 96.3 70 21 139/79 (99) 100 11/29/18 16:00 6.0 30 11/29/18 15:26 74 Intake and Output 11/30/18 12/01/18 19:00 07:00 Intake Total 2080.000 ml 1437.416 ml Output Total 620 ml 1150 ml Balance 1460.000 ml 287.416 ml IV Total 1175.000 ml 917.416 ml Tube Feeding 845 ml 520 ml Other 60 ml Output Urine Total 620 ml 1150 ml # Bowel Movements 1 1 Labs Test 11/28/18 15:45 11/28/18 18:25 11/29/18 04:00 11/29/18 16:15 Urine Osmolality 291 mOsm/kg (429-449) Urine Random Sodium 29 mmol/L (20-110) Sodium Level 125 MMOL/L (136-145) 128 MMOL/L (136-145) 121 MMOL/L (136-145) Potassium Level 3.3 MMOL/L (3.5-5.1) 3.2 MMOL/L (3.5-5.1) 3.4 MMOL/L (3.5-5.1) Chloride Level 90 MMOL/L (98-107) 91 MMOL/L (98-107) 91 MMOL/L (98-107) Carbon Dioxide Level 30 MMOL/L (21-32) 32 MMOL/L (21-32) 29 MMOL/L (21-32) Anion Gap 5 mmol/L (5-15) 5 mmol/L (5-15) 1 mmol/L (5-15) Blood Urea Nitrogen 15 mg/dL (7-18) 15 mg/dL (7-18) 14 mg/dL (7-18) Creatinine 0.4 MG/DL (0.55-1.30) 0.4 MG/DL (0.55-1.30) 0.5 MG/DL (0.55-1.30) Estimat Glomerular Filtration Rate mL/min (>60) mL/min (>60) mL/min (>60) Glucose Level 120 MG/DL (74-106) 108 MG/DL (74-106) 133 MG/DL (74-106) Osmolality 263 mOsm/kg (297-317) Calcium Level 7.8 MG/DL (8.5-10.1) 7.7 MG/DL (8.5-10.1) 7.4 MG/DL (8.5-10.1) Thyroid Stimulating Hormone (TSH) 2.816 uiU/mL (0.358-3.740) White Blood Count 10.8 K/UL (4.8-10.8) Red Blood Count 3.33 M/UL (4.20-5.40) Hemoglobin 8.6 G/DL (12.0-16.0) Hematocrit 25.8 % (37.0-47.0) Mean Corpuscular Volume 78 FL (80-99) Mean Corpuscular Hemoglobin 26.0 PG (27.0-31.0) Mean Corpuscular Hemoglobin Concent 33.4 G/DL (32.0-36.0) Red Cell Distribution Width 20.2 % (11.6-14.8) Platelet Count 291 K/UL (150-450) Mean Platelet Volume 5.5 FL (6.5-10.1) Neutrophils (%) (Auto) 77.0 % (45.0-75.0) Lymphocytes (%) (Auto) 10.3 % (20.0-45.0) Monocytes (%) (Auto) 6.7 % (1.0-10.0) Eosinophils (%) (Auto) 5.1 % (0.0-3.0) Basophils (%) (Auto) 0.9 % (0.0-2.0) Total Bilirubin 0.3 MG/DL (0.2-1.0) Aspartate Amino Transf (AST/SGOT) 158 U/L (15-37) Alanine Aminotransferase (ALT/SGPT) 105 U/L (12-78) Alkaline Phosphatase 507 U/L (46-116) Total Protein 4.9 G/DL (6.4-8.2) Albumin 0.9 G/DL (3.4-5.0) Globulin 4.0 g/dL Albumin/Globulin Ratio 0.2 (1.0-2.7) Cortisol AM Sample 15.5 UG/DL Test 11/30/18 04:00 11/30/18 13:22 11/30/18 14:00 12/01/18 03:30 White Blood Count 9.0 K/UL (4.8-10.8) 9.2 K/UL (4.8-10.8) Red Blood Count 3.26 M/UL (4.20-5.40) 3.20 M/UL (4.20-5.40) Hemoglobin 8.4 G/DL (12.0-16.0) 8.5 G/DL (12.0-16.0) Hematocrit 25.1 % (37.0-47.0) 24.8 % (37.0-47.0) Mean Corpuscular Volume 77 FL (80-99) 78 FL (80-99) Mean Corpuscular Hemoglobin 25.7 PG (27.0-31.0) 26.5 PG (27.0-31.0) Mean Corpuscular Hemoglobin Concent 33.4 G/DL (32.0-36.0) 34.2 G/DL (32.0-36.0) Red Cell Distribution Width 20.0 % (11.6-14.8) 19.5 % (11.6-14.8) Platelet Count 250 K/UL (150-450) 263 K/UL (150-450) Mean Platelet Volume 5.7 FL (6.5-10.1) 6.1 FL (6.5-10.1) Neutrophils (%) (Auto) 79.2 % (45.0-75.0) 81.1 % (45.0-75.0) Lymphocytes (%) (Auto) 7.9 % (20.0-45.0) 7.3 % (20.0-45.0) Monocytes (%) (Auto) 8.4 % (1.0-10.0) 8.5 % (1.0-10.0) Eosinophils (%) (Auto) 3.9 % (0.0-3.0) 2.4 % (0.0-3.0) Basophils (%) (Auto) 0.6 % (0.0-2.0) 0.6 % (0.0-2.0) Sodium Level 126 MMOL/L (136-145) 131 MMOL/L (136-145) 123 MMOL/L (136-145) Potassium Level 4.0 MMOL/L (3.5-5.1) 3.1 MMOL/L (3.5-5.1) 3.8 MMOL/L (3.5-5.1) Chloride Level 91 MMOL/L (98-107) 99 MMOL/L (98-107) 89 MMOL/L (98-107) Carbon Dioxide Level 30 MMOL/L (21-32) 25 MMOL/L (21-32) 31 MMOL/L (21-32) Anion Gap 5 mmol/L (5-15) 7 mmol/L (5-15) 3 mmol/L (5-15) Blood Urea Nitrogen 14 mg/dL (7-18) 10 mg/dL (7-18) 15 mg/dL (7-18) Creatinine 0.4 MG/DL (0.55-1.30) 0.3 MG/DL (0.55-1.30) 0.3 MG/DL (0.55-1.30) Estimat Glomerular Filtration Rate mL/min (>60) mL/min (>60) mL/min (>60) Glucose Level 84 MG/DL (74-106) 141 MG/DL (74-106) 118 MG/DL (74-106) Calcium Level 7.7 MG/DL (8.5-10.1) 6.4 MG/DL (8.5-10.1) 7.8 MG/DL (8.5-10.1) Total Bilirubin 0.3 MG/DL (0.2-1.0) 0.3 MG/DL (0.2-1.0) Aspartate Amino Transf (AST/SGOT) 169 U/L (15-37) 111 U/L (15-37) Alanine Aminotransferase (ALT/SGPT) 120 U/L (12-78) 97 U/L (12-78) Alkaline Phosphatase 535 U/L (46-116) 490 U/L (46-116) Total Protein 4.8 G/DL (6.4-8.2) 5.0 G/DL (6.4-8.2) Albumin 0.9 G/DL (3.4-5.0) 1.2 G/DL (3.4-5.0) Globulin 3.9 g/dL 3.8 g/dL Albumin/Globulin Ratio 0.2 (1.0-2.7) 0.3 (1.0-2.7) Urine Osmolality 388 mOsm/kg (429-449) Urine Random Sodium 99 mmol/L (20-110) Phosphorus Level 2.1 MG/DL (2.5-4.9) Magnesium Level 1.0 MG/DL (1.8-2.4) Pro-B-Type Natriuretic Peptide 881 pg/mL (0-125) Test 12/01/18 08:55 White Blood Count 9.8 K/UL (4.8-10.8) Red Blood Count 3.37 M/UL (4.20-5.40) Hemoglobin 8.7 G/DL (12.0-16.0) Hematocrit 25.8 % (37.0-47.0) Mean Corpuscular Volume 76 FL (80-99) Mean Corpuscular Hemoglobin 25.6 PG (27.0-31.0) Mean Corpuscular Hemoglobin Concent 33.5 G/DL (32.0-36.0) Red Cell Distribution Width 19.8 % (11.6-14.8) Platelet Count 255 K/UL (150-450) Mean Platelet Volume 5.6 FL (6.5-10.1) Neutrophils (%) (Auto) 80.9 % (45.0-75.0) Lymphocytes (%) (Auto) 7.9 % (20.0-45.0) Monocytes (%) (Auto) 8.3 % (1.0-10.0) Eosinophils (%) (Auto) 2.0 % (0.0-3.0) Basophils (%) (Auto) 0.9 % (0.0-2.0) Sodium Level 120 MMOL/L (136-145) Potassium Level 3.8 MMOL/L (3.5-5.1) Chloride Level 87 MMOL/L (98-107) Carbon Dioxide Level 29 MMOL/L (21-32) Anion Gap 4 mmol/L (5-15) Blood Urea Nitrogen 15 mg/dL (7-18) Creatinine 0.4 MG/DL (0.55-1.30) Estimat Glomerular Filtration Rate mL/min (>60) Glucose Level 182 MG/DL (74-106) Calcium Level 7.6 MG/DL (8.5-10.1) Phosphorus Level 2.0 MG/DL (2.5-4.9) Magnesium Level 1.0 MG/DL (1.8-2.4) Total Bilirubin 0.3 MG/DL (0.2-1.0) Aspartate Amino Transf (AST/SGOT) 100 U/L (15-37) Alanine Aminotransferase (ALT/SGPT) 89 U/L (12-78) Alkaline Phosphatase 481 U/L (46-116) Pro-B-Type Natriuretic Peptide 956 pg/mL (0-125) Total Protein 4.8 G/DL (6.4-8.2) Albumin 1.1 G/DL (3.4-5.0) Globulin 3.7 g/dL Albumin/Globulin Ratio 0.3 (1.0-2.7) Height (Feet): 5 Height (Inches): 8.00 Weight (Pounds): 208 Objective Physical Exam: Vitals: reviewed Gen: NAD HEENT: normocephalic, atraumatic Neck: non-tender, normal alignment ++ vent/trach Respiratory: normal breath sounds bilaterally CV: normal peripheral pulses, rrr Abdomen: normal bowel sounds, soft, nontender +gtube Extremities: 1-2+ edema, normal range of motion Yonathan Hernandez MD Dec 01, 2018 15:17
[2018-12-01] MEDS ORDERED: NS 275ml ONE (15:50)
[2018-12-01] MEDS ORDERED: Tubing IV Secondary IV ONE (15:50)
[2018-12-01 16:00] VITALS: BP 115/73
[2018-12-01] MEDS: Magic Mouth Wash 60ml (Benadryl/Mylanta/Visc Lido) ORAL SCH (18:44)
--- NOTE | 2018-12-01 19:20 | NUR ---
NURSE NOTES: Received patient from Marycarmen Ríos RN. patient is observed resting in bed, obtunded. no s/sx of pain noted at this time. vent to trach settings are as follows: Shiley: 8, AC: 14, TV:375, FiO2: 30%, PEEP: 5. no s/sx of respiratory distress noted at this time. G-tube site is patent and intact, running feeding at prescribed rate. HOB elevated. F/C is patent and intact, draining well. KAITLYNN PICC dry and intact, running fluids at prescribed rate. skin alterations noted. bed in lowest position and locked, siderails up X3, call light within reach. will continue to monitor.
--- NOTE | 2018-12-01 19:29 | NUR ---
HAND-OFF: Report given to CHARLEE Colindres.
[2018-12-01 20:00] VITALS: BP 112/55
[2018-12-01 20:40] LABS: ANION GAP 6 mmol/L (5-15); BLOOD UREA NITROGEN 14 mg/dL (7-18); CALCIUM 7.7 MG/DL (8.5-10.1); CARBON DIOXIDE 29 MMOL/L (21-32); CHLORIDE 89 MMOL/L (98-107); CREATININE 0.4 MG/DL (0.55-1.30); POTASSIUM 3.6 MMOL/L (3.5-5.1); SODIUM 124 MMOL/L (136-145)
[2018-12-01] MEDS: Dyna-Hex 2% Top Sol 2oz TOPIC SCH (20:53)
[2018-12-02] VITALS: BP 154/76
[2018-12-02] MEDS: NovoLOG Insulin Flexpen SUBQ SCH ×5 (00:55→23:41)
[2018-12-02] MEDS: Vancomycin 1 GM in D5W 275 ML IVPB SCH ×2 (03:46→16:01)
[2018-12-02 04:00] VITALS: BP 118/64
[2018-12-02 05:34] LABS: HEMATOCRIT 21.7 % (37.0-47.0); HEMOGLOBIN 7.8 G/DL (12.0-16.0); MEAN CORPUSCULAR VOLUME 75 FL (80-99); PLATELET COUNT 226 K/UL (150-450); RED BLOOD COUNT 2.89 M/UL (4.20-5.40); WHITE BLOOD COUNT 10.1 K/UL (4.8-10.8)
[2018-12-02 05:45] LABS: ANION GAP 6 mmol/L (5-15); BLOOD UREA NITROGEN 14 mg/dL (7-18); CALCIUM 7.5 MG/DL (8.5-10.1); CARBON DIOXIDE 29 MMOL/L (21-32); CHLORIDE 89 MMOL/L (98-107); CREATININE 0.4 MG/DL (0.55-1.30); POTASSIUM 3.3 MMOL/L (3.5-5.1); SODIUM 124 MMOL/L (136-145)
[2018-12-02] MEDS: metroNIDAZOLE 500mg tab GT SCH ×3 (06:19→21:42)
[2018-12-02] MEDS: Phenytoin Susp 100mg/4ml GT SCH ×3 (06:20→21:42)
[2018-12-02] MEDS: Labetalol 200mg tab GT SCH ×3 (06:20→21:43)
--- NOTE | 2018-12-02 06:35 | NUR ---
NURSE NOTES: left message for Dr. Schulz regarding patient's sodium and potassium values. awaiting call back.
--- NOTE | 2018-12-02 07:00 | NUR ---
NURSE NOTES: received call back from Dr. Schulz. will carry out orders.
--- NOTE | 2018-12-02 07:45 | General Progress Note ---
Assessment/Plan Status: unchanged Assessment/Plan: (1) Abnormal LFTs ICD Codes: R94.5 - Abnormal results of liver function studies SNOMED: 666730642 (2) Decubitus skin ulcer ICD Codes: L89.90 - Pressure ulcer of unspecified site, unspecified stage SNOMED: 697646100 (3) Protein calorie malnutrition ICD Codes: E46 - Unspecified protein-calorie malnutrition SNOMED: 965115922 (4) Colon adenocarcinoma ICD Codes: C18.9 - Malignant neoplasm of colon, unspecified SNOMED: 028744917 (5) Sepsis ICD Codes: A41.9 - Sepsis, unspecified organism SNOMED: 78098958 (6) Tracheostomy dependence ICD Codes: Z93.0 - Tracheostomy status SNOMED: 839875834 (7) 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 Humphries. Assessment/Plan Assessment - Iron deficiency anemia - abnormal LFT - ? meds, passive congestion - dysphagia, s/p GT - Resp, failure, s/p Trach - hepatitis panel negative Recommendations - Continue TF - Monitor LFT - follow CBC - Conservative approach given poor healt- -CT and us reviewed Subjective ROS Limited/Unobtainable: No Allergies: Coded Allergies: Crayfish (Unverified Allergy, Unknown, 11/11/18) Uncoded Allergies: Crawfish (Allergy, Unknown, 11/09/18) Subjective fever last night had BM Objective Last 24 Hour Vital Signs Date Time Temp Pulse Resp B/P (MAP) Pulse Ox O2 Delivery O2 Flow Rate FiO2 12/02/18 07:04 72 24 30 12/02/18 06:20 80 118/64 12/02/18 05:10 80 25 30 12/02/18 04:00 78 12/02/18 04:00 Mechanical Ventilator 6.0 12/02/18 04:00 6.0 30 12/02/18 04:00 96.6 78 24 118/64 (82) 100 12/02/18 03:02 81 26 30 12/02/18 00:38 86 28 30 12/02/18 00:00 Mechanical Ventilator 6.0 12/02/18 00:00 6.0 30 12/02/18 00:00 97.1 93 24 154/76 (102) 97 12/02/18 00:00 93 12/01/18 23:11 77 30 30 12/01/18 22:14 86 112/55 12/01/18 21:20 81 26 30 12/01/18 20:00 6.0 30 12/01/18 20:00 79 12/01/18 20:00 Mechanical Ventilator 6.0 12/01/18 20:00 96.6 86 22 112/55 (74) 100 12/01/18 19:20 80 25 30 12/01/18 17:09 78 30 30 12/01/18 16:00 97.7 75 22 115/73 (87) 98 12/01/18 16:00 Mechanical Ventilator 6.0 12/01/18 16:00 6.0 30 12/01/18 15:29 77 12/01/18 15:09 76 25 30 12/01/18 13:42 75 146/74 12/01/18 12:38 75 23 30 12/01/18 12:00 97.7 75 20 146/74 (98) 100 12/01/18 12:00 Mechanical Ventilator 6.0 12/01/18 12:00 6.0 30 12/01/18 11:30 77 12/01/18 10:56 74 25 30 12/01/18 08:47 76 24 30 12/01/18 08:32 77 156/90 12/01/18 08:00 Mechanical Ventilator 6.0 12/01/18 08:00 6.0 30 12/01/18 08:00 74 12/01/18 08:00 97.5 77 16 156/90 (112) 100 Intake and Output 12/01/18 12/02/18 18:59 06:59 Intake Total 2264.820 ml 1637.281 ml Output Total 1800 ml 1100 ml Balance 464.820 ml 537.281 ml IV Total 1744.820 ml 1247.281 ml Tube Feeding 520 ml 390 ml Output Urine Total 1800 ml 1100 ml # Bowel Movements 1 1 Laboratory Tests 12/01/18 08:55: White Blood Count 9.8, Red Blood Count 3.37L, Hemoglobin 8.7L, Hematocrit 25.8L , Mean Corpuscular Volume 76L, Mean Corpuscular Hemoglobin 25.6L, Mean Corpuscular Hemoglobin Concent 33.5, Red Cell Distribution Width 19.8H, Platelet Count 255, Mean Platelet Volume 5.6L, Neutrophils (%) (Auto) 80.9H, Lymphocytes (%) (Auto) 7.9L, Monocytes (%) (Auto) 8.3, Eosinophils (%) (Auto) 2.0, Basophils (%) (Auto) 0.9, Sodium Level 120L, Potassium Level 3.8, Chloride Level 87L, Carbon Dioxide Level 29, Anion Gap 4L, Blood Urea Nitrogen 15, Creatinine 0.4L, Estimat Glomerular Filtration Rate , Glucose Level 182H, Calcium Level 7.6L, Phosphorus Level 2.0L, Magnesium Level 1.0L, Total Bilirubin 0.3, Aspartate Amino Transf (AST/SGOT) 100H, Alanine Aminotransferase (ALT/SGPT) 89H, Alkaline Phosphatase 481H, Pro-B-Type Natriuretic Peptide 956H, Total Protein 4.8L, Albumin 1.1L, Globulin 3.7, Albumin/Globulin Ratio 0.3L 12/01/18 20:00: Sodium Level 124L, Potassium Level 3.6, Chloride Level 89L, Carbon Dioxide Level 29, Anion Gap 6, Blood Urea Nitrogen 14, Creatinine 0.4L, Estimat Glomerular Filtration Rate , Glucose Level 115H, Calcium Level 7.7L 12/02/18 03:50: White Blood Count 10.1, Red Blood Count 2.89L, Hemoglobin 7.8L, Hematocrit 21.7L , Mean Corpuscular Volume 75L, Mean Corpuscular Hemoglobin 26.9L, Mean Corpuscular Hemoglobin Concent 35.7, Red Cell Distribution Width 19.0H, Platelet Count 226, Mean Platelet Volume 6.6, Neutrophils (%) (Auto) , Lymphocytes (%) (Auto) , Monocytes (%) (Auto) , Eosinophils (%) (Auto) , Basophils (%) (Auto) , Sodium Level 124L, Potassium Level 3.3L, Chloride Level 89L, Carbon Dioxide Level 29, Anion Gap 6, Blood Urea Nitrogen 14, Creatinine 0.4L, Estimat Glomerular Filtration Rate , Glucose Level 118H, Calcium Level 7.5L, Neutrophils % (Manual) [Pending], Lymphocytes % (Manual) [Pending], Platelet Estimate [Pending], Platelet Morphology [Pending] Height (Feet): 5 Height (Inches): 8.00 Weight (Pounds): 208 General Appearance: no apparent distress EENT: normal ENT inspection Neck: supple Cardiovascular: normal rate Respiratory/Chest: decreased breath sounds Abdomen: normal bowel sounds, non tender, soft Extremities: non-tender Casper Humphries MD Dec 02, 2018 07:45
--- NOTE | 2018-12-02 07:45 | NUR ---
HAND-OFF: Report given to CHARLEE Aggarwal. patient is in stable condition.
--- NOTE | 2018-12-02 07:46 | NUR ---
NURSE NOTES: Received patient in bed. Vent dependent. In no apparent distress. With ongoing GTF. Ospina cath inplace. Contact isolation observed. Will continue plan of care.
[2018-12-02 08:00] VITALS: BP 127/66
[2018-12-02] MEDS: Enoxaparin 40mg Inj SUBQ SCH (08:48)
[2018-12-02] MEDS: levETIRAcetam 500mg/5ml Liquid GT SCH ×2 (08:48→20:35)
[2018-12-02] MEDS: Sennosides 8.6mg tab GT SCH ×2 (08:48→20:40)
[2018-12-02] MEDS: Lactulose 10gm/15ml UDC GT SCH ×3 (08:48→17:38)
[2018-12-02] MEDS: PHENobarbital Elixir 30mg/7.5ml GT SCH ×2 (08:49→17:39)
[2018-12-02] MEDS: Magic Mouth Wash 60ml (Benadryl/Mylanta/Visc Lido) ORAL SCH ×3 (09:08→21:44)
[2018-12-02] MEDS: Polymyxin B Sulfate 500,000 UNITS in D5W 500ml 550 ML IV SCH ×2 (09:09→20:34)
[2018-12-02] MEDS: Levemir Flexpen SUBQ SCH ×2 (09:11→20:35)
[2018-12-02] MEDS ORDERED: NaCl 3% 500ml 250 ML IV ONE (10:30)
[2018-12-02 12:00] VITALS: BP 131/56
--- NOTE | 2018-12-02 12:09 | General Progress Note ---
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 SNOMED: 98824570 (6) Anoxic brain damage ICD Codes: G93.1 - Anoxic brain damage, not elsewhere classified SNOMED: 313589362 (7) Colon adenocarcinoma ICD Codes: C18.9 - Malignant neoplasm of colon, unspecified SNOMED: 090201714 (8) Ventilator dependence ICD Codes: Z99.11 - Dependence on respirator [ventilator] status SNOMED: 558773245 (9) Tracheostomy dependence ICD Codes: Z93.0 - Tracheostomy status SNOMED: 551204259 (10) Fever ICD Codes: R50.9 - Fever, unspecified SNOMED: 363004736 (11) Sepsis ICD Codes: A41.9 - Sepsis, unspecified organism SNOMED: 90686301 (12) UTI (urinary tract infection) ICD Codes: N39.0 - Urinary tract infection, site not specified SNOMED: 36628456 (13) Decubitus skin ulcer ICD Codes: L89.90 - Pressure ulcer of unspecified site, unspecified stage SNOMED: 671051135 (14) Protein calorie malnutrition ICD Codes: E46 - Unspecified protein-calorie malnutrition SNOMED: 742231622 (15) Abnormal LFTs ICD Codes: R94.5 - Abnormal results of liver function studies SNOMED: 053846251 (16) MRSA (methicillin resistant staphylococcus aureus) pneumonia ICD Codes: J15.212 - Pneumonia due to Methicillin resistant Staphylococcus aureus SNOMED: 520109077683465 (17) Drug rash ICD Codes: L27.0 - Generalized skin eruption due to drugs and medicaments taken internally SNOMED: 71096094 (18) Bacteremia ICD Codes: R78.81 - Bacteremia SNOMED: 7788248 (19) Gram-negative pneumonia ICD Codes: J15.6 - Pneumonia due to other Gram-negative bacteria SNOMED: 691336490 (20) Line sepsis ICD Codes: T85.79XA - Infection and inflammatory reaction due to other internal prosthetic devices, implants and grafts, initial encounter; A41.9 - Sepsis, unspecified organism SNOMED: 54368402, 895708362 (21) Hyponatremia ICD Codes: E87.1 - Hypo-osmolality and hyponatremia SNOMED: 65599019 Status: unchanged Assessment/Plan: 78-year-old female who is trach dependent who was brought in by alf for sepsis and found to have UTI and bacteremia. 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 fungal uti vs colonization ID consult appreciate Rec Vancomycin and Meropenem started 11/16 ( Zosyn stopped) , fungal coverage with Diflucan added 11/18. Repeat sputum cultures with RAULTELLA PLANTICOA and PROVIDENCIA STUARTI resistant to most antibiotics Developed morbilliform rash on meropenem, subsequently stopped, rash better. Fever resolved. Started Polymyxin and flagyl 11/21. Added vancomycin and micafungin on 11/24. Day 9 of 10 of abx picc cultures, no growth so far. repeat sputum cultures Organism 1 A.BAUMANII COMPLX - MDR GROWTH: 4+ Organism 2 PSEUDOMONAS AERUGINOSA ACIBCX-MDR PSE AERUGI M.I.C. RX M.I.C. RX --------- --- --------- --- CEFTAZIDIME >=64 R 2 S CEFTRIAXONE >=64 R CEFEPIME >=64 R <=1 S CIPROFLOXACIN >=4 R <=0.25 S GENTAMICIN >=16 R <=1 S LEVOFLOXACIN >=8 R 0.5 S IMIPENEM >=16 R >=16 R TRIMETHOPRIM/SULFA <=20 S AMIKACIN <=2 S PIPERACILLIN/TAZOBACTAM [address] abdomen pelvis shows no acute process Removed PICC and place new line 11/13/18 Echo to eval for vegetation negative Chest x-ray reviewed, no change #hyponatremia, hypotonic. Intravascularly depleted vs SIADH s/p IV NS which has not corrected sodium. Serum Cortisol and TSH WNL, valproic acid stopped. Urea unavailable at the hospital. Free water stopped via GT. s/p Albumin/Furosemide, improved to 131, now back down to 121. Will repeat peripheral sample instead of sample from central line urine osmol, serum urea, urine sodium reviewed nephrology consulted and following. appreicate recs. -BID BMP. Most recent Na 124. Next check after completion of infusion ~9PM tonight. -3% NS with albumin to bring up Na. # Transaminitis - worsening, meds vs passive congestion - trend lft's - GI consult, appreciate recs - ab us: reviewed - hep panel negative #Elevated troponin secondary to sepsis versus ACS Cardiology consult, appreciate recs Medications per cardiology #Microcytic anemia- mixed anemia of chronic inflammation and iron deficiency. Start ferrous sulfate TID , transfused 1 uprbc 11/27. hemoglobin stable #Hypertension- improved Continue current medications, hydralazine as needed hypertension #Vent dependent Pulmonary consult, appreciate recs Vent management per pulmonary #Hypokalemia, hypophosphatemia, hypomagnesemia Replace, continue to monitor # Chronic tongue wound Supportive care On examination the patient has a sharp lower incisor present that is likely the culprit for the tongue laceration when she was intubated in the prior hospitalization at [facility] OMFS consultation Dr. Benavides completed ( no note left ) and I spoke with him over the phone after the visit. He does not recommend any surgery. ONLY bite block MOLT if available to decompress the tongue and get the remainder teeth out of the tongue way. Keep moisture in the lips and tongue. ENT consult difficult to obtain- pending # History of mood disorder Seen by psychiatry and on Depakote. Level was checked # Seizure history - Discussed with Dr. Eric who knew the patient from [facility] and confirmed that she did have seizure activity and was on multiple AED regimen. - Will continue Depakote ( 28 level ) and (Phenytoin 4.3 ) - no active seizure activity at this time. Keep current dose. - Both Dr. Eric and Mariana not available to come to [facility] for consult and not acute need at this time. #Diabetes Mellitus, controlled - glucose noted in the 90-110's - Decreased Levemir to 4 units q 12 hours # Disposition - SNF when cleared by ID. I spent 70 minutes on this encounter. at least 30 minutes of which was spent on reviewing of record, as patient is new to me. Subjective Date patient seen: Dec 02, 2018 Time patient seen: 08:15 ROS Limited/Unobtainable: Yes Allergies: Coded Allergies: Crayfish (Unverified Allergy, Unknown, 11/11/18) Uncoded Allergies: Crawfish (Allergy, Unknown, 11/09/18) Subjective obtunded, unable to provide input Objective Last 24 Hour Vital Signs Date Time Temp Pulse Resp B/P (MAP) Pulse Ox O2 Delivery O2 Flow Rate FiO2 12/02/18 08:59 73 12/02/18 08:49 76 127/66 12/02/18 08:00 97.0 74 22 127/66 (86) 100 12/02/18 08:00 30 12/02/18 08:00 Mechanical Ventilator 12/02/18 07:04 72 24 30 12/02/18 06:20 80 118/64 12/02/18 05:10 80 25 30 12/02/18 04:00 78 12/02/18 04:00 Mechanical Ventilator 6.0 12/02/18 04:00 6.0 30 12/02/18 04:00 96.6 78 24 118/64 (82) 100 12/02/18 03:02 81 26 30 12/02/18 00:38 86 28 30 12/02/18 00:00 Mechanical Ventilator 6.0 12/02/18 00:00 6.0 30 12/02/18 00:00 97.1 93 24 154/76 (102) 97 12/02/18 00:00 93 12/01/18 23:11 77 30 30 12/01/18 22:14 86 112/55 12/01/18 21:20 81 26 30 12/01/18 20:00 6.0 30 12/01/18 20:00 79 12/01/18 20:00 Mechanical Ventilator 6.0 12/01/18 20:00 96.6 86 22 112/55 (74) 100 12/01/18 19:20 80 25 30 12/01/18 17:09 78 30 30 12/01/18 16:00 97.7 75 22 115/73 (87) 98 12/01/18 16:00 Mechanical Ventilator 6.0 12/01/18 16:00 6.0 30 12/01/18 15:29 77 12/01/18 15:09 76 25 30 12/01/18 13:42 75 146/74 12/01/18 12:38 75 23 30 12/01/18 12:00 97.7 75 20 146/74 (98) 100 12/01/18 12:00 Mechanical Ventilator 6.0 12/01/18 12:00 6.0 30 Intake and Output 12/01/18 12/02/18 18:59 06:59 Intake Total 2264.820 ml 1637.281 ml Output Total 1800 ml 1100 ml Balance 464.820 ml 537.281 ml IV Total 1744.820 ml 1247.281 ml Tube Feeding 520 ml 390 ml Output Urine Total 1800 ml 1100 ml # Bowel Movements 1 1 Laboratory Tests 12/01/18 20:00: Sodium Level 124L, Potassium Level 3.6, Chloride Level 89L, Carbon Dioxide Level 29, Anion Gap 6, Blood Urea Nitrogen 14, Creatinine 0.4L, Estimat Glomerular Filtration Rate , Glucose Level 115H, Calcium Level 7.7L 12/02/18 03:50: Sodium Level 124L, Potassium Level 3.3L, Chloride Level 89L, Carbon Dioxide Level 29, Anion Gap 6, Blood Urea Nitrogen 14, Creatinine 0.4L, Estimat Glomerular Filtration Rate , Glucose Level 118H, Calcium Level 7.5L, White Blood Count 10.1, Red Blood Count 2.89L, Hemoglobin 7.8L, Hematocrit 21.7L, Mean Corpuscular Volume 75L, Mean Corpuscular Hemoglobin 26.9L, Mean Corpuscular Hemoglobin Concent 35.7, Red Cell Distribution Width 19.0H, Platelet Count 226, Mean Platelet Volume 6.6, Neutrophils (%) (Auto) , Lymphocytes (%) (Auto) , Monocytes (%) (Auto) , Eosinophils (%) (Auto) , Basophils (%) (Auto) , Differential Total Cells Counted 100, Neutrophils % ( Manual) 74, Lymphocytes % (Manual) 6L, Monocytes % (Manual) 7, Eosinophils % ( Manual) 1, Basophils % (Manual) 0, Band Neutrophils 12H, Platelet Estimate Adequate, Platelet Morphology Normal, Anisocytosis 1+, Microcytosis 1+ Height (Feet): 5 Height (Inches): 8.00 Weight (Pounds): 208 General Appearance: no apparent distress, lethargic, obese EENT: other - enlarged tongue protruding, lower lip severely swollen Neck: supple Cardiovascular: normal rate, regular rhythm Respiratory/Chest: lungs clear, no respiratory distress, no accessory muscle use Abdomen: normal bowel sounds, non tender, soft Extremities: swelling Edema: 3+ Arm (L), 3+ Arm (R), 3+ Leg (L), 3+ Leg (R), 3+ Pedal (L), 3+ Pedal ( R), 3+ Generalized Edema: severe edema Neurologic: unresponsive Skin: normal pigmentation Laron Healy M.D. Dec 02, 2018 12:09
--- NOTE | 2018-12-02 13:32 | Infectious Diseases Prog Note ---
Assessment/Plan Assessment/Plan ASSESSMENT AND PLAN: 1. [facility] bacteremia/line infection, e.coli line infection, sacral wound infection , gram neg pna, enterococcus uti, sepsis, leukocytosis, fevers, fungemia risk, ? fungal uti vs colonization, ? new line infection , ? new nosocomial infection - polymyxin and flagyl, vancomycin and micafungin - day # 9 abx, plan on 10 days tx - fevers resolved, leukocytosis resolved - previous picc line changed - CT scan without abscess or diverticulitis - sacral wound management per surgery - rash improved/stable - ? enlarged tongue - ENT evaluation if possible 2. Trach-vent respiratory failure. 3. Dysphagia, G-tube. 4. Anemia. 5. Diabetes. 6. Hypertension. 7. Large tongue. 8. Anoxic brain injury. 9. Weakness. 10. Poorly responsive. 11. History of seizures. 12. History of colon adenocarcinoma. 13. Skin care protocol. 14. Allergy to crawfish. 15. Social history negative. 16. Family history noncontributory. 17. MAR was noted. 18. Case was discussed with RN. 19. Continue treatment per primary consultants. 20. Orders were ordered, entered, and noted. 21. Continue wound care protocol. 22. Continue blood sugar and blood pressure treatment per primary consultants for diabetes and hypertension. 23. vre colonization and isolation Subjective Constitutional: Reports: other - + trach and vent; Denies: fever HEENT: Reports: congestion Respiratory: Reports: shortness of breath Cardiovascular: Reports: other - no pressors Gastrointestinal/Abdominal: Denies: nausea, vomiting, diarrhea Genitourinary: Reports: other - + nava Neurologic: Reports: other - lethargic and poorly responsive Psychiatric: Reports: other - NA Skin: Reports: rash - stable Hematologic: Reports: other - no sz Musculoskeletal: Reports: other - NA Allergies: Coded Allergies: Crayfish (Unverified Allergy, Unknown, 11/11/18) Uncoded Allergies: Crawfish (Allergy, Unknown, 11/09/18) Objective Vital Signs Last 24 Hour Vital Signs Date Time Temp Pulse Resp B/P (MAP) Pulse Ox O2 Delivery O2 Flow Rate FiO2 12/02/18 12:00 Mechanical Ventilator 12/02/18 12:00 30 12/02/18 08:59 73 12/02/18 08:49 76 127/66 12/02/18 08:00 97.0 74 22 127/66 (86) 100 12/02/18 08:00 30 12/02/18 08:00 Mechanical Ventilator 12/02/18 07:04 72 24 30 12/02/18 06:20 80 118/64 12/02/18 05:10 80 25 30 12/02/18 04:00 78 12/02/18 04:00 Mechanical Ventilator 6.0 12/02/18 04:00 6.0 30 12/02/18 04:00 96.6 78 24 118/64 (82) 100 12/02/18 03:02 81 26 30 12/02/18 00:38 86 28 30 12/02/18 00:00 Mechanical Ventilator 6.0 12/02/18 00:00 6.0 30 12/02/18 00:00 97.1 93 24 154/76 (102) 97 12/02/18 00:00 93 12/01/18 23:11 77 30 30 12/01/18 22:14 86 112/55 12/01/18 21:20 81 26 30 12/01/18 20:00 6.0 30 12/01/18 20:00 79 12/01/18 20:00 Mechanical Ventilator 6.0 12/01/18 20:00 96.6 86 22 112/55 (74) 100 12/01/18 19:20 80 25 30 12/01/18 17:09 78 30 30 12/01/18 16:00 97.7 75 22 115/73 (87) 98 12/01/18 16:00 Mechanical Ventilator 6.0 12/01/18 16:00 6.0 30 12/01/18 15:29 77 12/01/18 15:09 76 25 30 12/01/18 13:42 75 146/74 Height (Feet): 5 Height (Inches): 8.00 Weight (Pounds): 208 General Appearance: other - on vent HEENT: normocephalic, atraumatic, anicteric, no JVD, status post trach Respiratory/Chest: crackles/rales, rhonchi - bilaterally Cardiovascular: normal rate, regular rhythm, no gallop/murmur Abdomen: normal bowel sounds, soft, non tender, no organomegaly, non distended Genitourinary: other - + nava - urine slt cloudy Extremities: no cyanosis Skin: rash - stable Neurologic/Psychiatric: other - lethargic, poorly responsive Lymphatic: no neck adenopathy Musculoskeletal: no effusion Objective 11/11/18 - chest x-ray - IMPRESSION: 1. Hypoventilatory lungs. Elevated right hemidiaphragm. Slightly improved vascular congestion. Similar bibasilar lung atelectasis and airspace disease. 2. Query right pleural effusion. 2-D echo - no vegetations mentioned, report noted sacral x-ray - no osteo mentioned, report noted 11/14/18 - Technique: One view of the chest Comparison: November 13, 2018 post PICC radiograph Findings: Bilateral interstitial and alveolar edema versus infiltrates appear slightly worse. There is increasing obscuration of left hemidiaphragm, may reflect increasing pleural fluid as well. The heart remains enlarged. Previously demonstrated left arm PICC has been removed. Stable right arm PICC. Impression: Slightly worsening bilateral interstitial and airspace infiltrates versus edema, over one day 11/16/18 - chest x-ray Procedure: XRAY Chest 1v Indication: Dyspnea Technique: One view of the chest Comparison: November 14, 2018 Findings: Bilateral interstitial edema persists. Tracheostomy, right arm PICC remain. The heart is enlarged. Impression: Bilateral interstitial edema, unchanged over [address] abdomen and pelvis: Impression: No definite acute process Diverticulosis. No evidence of diverticulitis Extensive edema of the subcutaneous fat. 2 cm focal fluid collection/edema seen within the incision Moderate amount retained dense stool. Correlate with any clinical history of constipation Hiatal hernia. Gastrostomy Left renal parapelvic cysts Apparent prior hysterectomy Chest x-ray - 11/23/18 - Technique: One view of the chest Comparison: 11/20/2018 Findings: Less optimal inspiration currently, with resultant crowding of the bronchovascular markings. Interstitial congestion is probably not significantly changed, allowing for differences in exposure technique. Tracheostomy remains. Right arm PICC remains. Impression: Unchanged, over 3 days, findings as above. Chest x-ray - 11/26/18 - IMPRESSION: 1. Rotated film. Increased hazy opacity at the left lung and left retrocardiac opacity. 2. Decreased left pleural effusion. 3. Elevated right hemidiaphragm with probable pleural effusion and consolidation, similar. Chest x-ray - 11/30/18 - Findings: Pulmonary edema again demonstrated. PICC line is stable as well as tracheostomy. Heart is enlarged. Basilar atelectasis suspected. The diaphragm is poorly seen. Underlying parenchymal infiltrate or other disease and/or pleural effusion may be present. IMPRESSION: Pulmonary edema Microbiology Date/Time Source Procedure Growth Status 11/24/18 15:10 Blood Blood Culture - Final NO GROWTH AFTER 5 DAYS Complete 11/26/18 09:00 Sputum Gram Stain - Final Complete 11/26/18 09:00 Sputum Culture - Final Acinetobacter Baumanii - Mdr Providencia Stuartii Complete 11/24/18 13:45 Indwelling Cath Urine Culture - Final NO GROWTH AFTER 48 HOURS Complete 11/13/18 21:55 Catheter Site Catheter Tip Culture - Final Escherichia Coli Complete Laboratory Tests Test 12/01/18 20:00 12/02/18 03:50 Sodium Level 124 MMOL/L (136-145) L 124 MMOL/L (136-145) L Potassium Level 3.6 MMOL/L (3.5-5.1) 3.3 MMOL/L (3.5-5.1) L Chloride Level 89 MMOL/L (98-107) L 89 MMOL/L (98-107) L Carbon Dioxide Level 29 MMOL/L (21-32) 29 MMOL/L (21-32) Anion Gap 6 mmol/L (5-15) 6 mmol/L (5-15) Blood Urea Nitrogen 14 mg/dL (7-18) 14 mg/dL (7-18) Creatinine 0.4 MG/DL (0.55-1.30) L 0.4 MG/DL (0.55-1.30) L Estimat Glomerular Filtration Rate mL/min (>60) mL/min (>60) Glucose Level 115 MG/DL (74-106) H 118 MG/DL (74-106) H Calcium Level 7.7 MG/DL (8.5-10.1) L 7.5 MG/DL (8.5-10.1) L White Blood Count 10.1 K/UL (4.8-10.8) Red Blood Count 2.89 M/UL (4.20-5.40) L Hemoglobin 7.8 G/DL (12.0-16.0) L Hematocrit 21.7 % (37.0-47.0) L Mean Corpuscular Volume 75 FL (80-99) L Mean Corpuscular Hemoglobin 26.9 PG (27.0-31.0) L Mean Corpuscular Hemoglobin Concent 35.7 G/DL (32.0-36.0) Red Cell Distribution Width 19.0 % (11.6-14.8) H Platelet Count 226 K/UL (150-450) Mean Platelet Volume 6.6 FL (6.5-10.1) Neutrophils (%) (Auto) % (45.0-75.0) Lymphocytes (%) (Auto) % (20.0-45.0) Monocytes (%) (Auto) % (1.0-10.0) Eosinophils (%) (Auto) % (0.0-3.0) Basophils (%) (Auto) % (0.0-2.0) Differential Total Cells Counted 100 Neutrophils % (Manual) 74 % (45-75) Lymphocytes % (Manual) 6 % (20-45) L Monocytes % (Manual) 7 % (1-10) Eosinophils % (Manual) 1 % (0-3) Basophils % (Manual) 0 % (0-2) Band Neutrophils 12 % (0-8) H Platelet Estimate Adequate Platelet Morphology Normal Anisocytosis 1+ Microcytosis 1+ Current Medications Medications (Trade) Dose Ordered Sig/Lupe Route PRN Reason Start Time Stop Time Status Last Admin Dose Admin Acetaminophen (Tylenol) 650 mg Q4H PRN GT Mild Pain/Temp > 100.5 11/09/18 05:00 12/09/18 04:59 11/24/18 21:50 Amlodipine Besylate (Norvasc) 10 mg DAILY GT 11/09/18 09:00 12/09/18 08:59 12/02/18 08:49 Bisacodyl (Dulcolax) 10 mg DAILY PRN RECTAL Constipation 11/09/18 05:00 12/09/18 04:59 Chlorhexidine Gluconate (Corazon-Hex 2%) 1 applic DAILY@1999 TOPIC 11/12/18 20:00 12/12/18 19:59 12/01/18 20:53 Dextrose (Dextrose 50%) 25 ml Q30M PRN IV Hypoglycemia 11/09/18 04:45 12/09/18 04:44 Dextrose (Dextrose 50%) 50 ml Q30M PRN IV Hypoglycemia 11/09/18 04:45 12/09/18 04:44 11/09/18 09:09 Enoxaparin Sodium (Lovenox) 40 mg DAILY SUBQ 11/09/18 09:00 12/09/18 08:59 12/02/18 08:48 Famotidine (Pepcid) 20 mg EVERY 12 HOURS GT 11/09/18 21:00 12/09/18 08:59 12/02/18 08:48 Insulin Aspart (NovoLOG) Q6HR SUBQ 11/09/18 06:00 12/09/18 05:59 12/02/18 13:18 Insulin Detemir (Levemir) 4 units EVERY 12 HOURS SUBQ 11/16/18 21:00 12/09/18 08:59 12/02/18 09:11 Labetalol HCl (Normodyne) 200 mg Q8HR GT 11/09/18 06:00 12/09/18 05:59 12/02/18 06:20 Lactulose (Cephulac) 10 gm THREE TIMES A DAY GT 11/27/18 18:00 12/27/18 12:59 12/02/18 12:58 Levetiracetam (Keppra) 1,500 mg Q12HR GT 11/09/18 09:00 12/09/18 08:59 12/02/18 08:48 Magnesium Hydroxide (Mom) 30 ml DAILY PRN GT Constipation 11/09/18 05:00 12/09/18 04:59 Metronidazole (Flagyl) 500 mg EVERY 8 HOURS GT 11/30/18 14:00 12/05/18 13:59 12/02/18 06:19 Micafungin Sodium 100 mg/Sodium Chloride 100 ml @ 100 mls/hr Q24H IVPB 11/29/18 14:00 12/06/18 13:59 12/01/18 15:33 Ondansetron HCl (Zofran) 4 mg Q6H PRN GT Nausea & Vomiting 11/09/18 05:00 12/09/18 04:59 Phenobarbital (PHENobarbital) 60 mg BID GT 11/09/18 09:00 12/09/18 08:59 12/02/18 08:49 Phenytoin (Dilantin) 100 mg Q8HR GT 11/09/18 06:00 12/09/18 05:59 12/02/18 06:20 Polyethylene Glycol (Miralax) 17 gm DAILYPRN PRN GT Constipation 11/14/18 10:30 12/12/18 10:29 Polymyxin B Sulfate 987880 units/Dextrose 550 ml @ 550 mls/hr EVERY 12 HOURS IV 11/26/18 21:00 12/03/18 20:59 12/02/18 09:09 Sennosides (Senokot) 8.6 mg EVERY 12 HOURS GT 11/09/18 21:00 12/09/18 08:59 12/02/18 08:48 Sodium Chloride 250 ml @ 30 mls/hr ONCE ONCE IV 12/02/18 10:30 12/02/18 18:49 12/02/18 10:31 Vancomycin HCl (Vanco rx to dose) 1 ea DAILY PRN MISC Per rx protocol 11/28/18 11:45 12/28/18 11:44 Vancomycin HCl 1 gm/Dextrose 275 ml @ 183.708 mls/hr Q12HR@0400,1600 IVPB 11/28/18 16:00 12/03/18 15:59 12/02/18 03:46 Dasha Crews MD Dec 02, 2018 13:32
--- NOTE | 2018-12-02 14:10 | Surgery Progress Note ---
Surgery Progress Note Subjective Additional Comments no acute events Objective Last 24 Hour Vital Signs Date Time Temp Pulse Resp B/P (MAP) Pulse Ox O2 Delivery O2 Flow Rate FiO2 12/02/18 13:05 68 24 30 12/02/18 12:00 97.9 79 19 131/56 (81) 100 12/02/18 12:00 Mechanical Ventilator 12/02/18 12:00 30 12/02/18 10:55 79 25 30 12/02/18 09:02 75 28 30 12/02/18 08:59 73 12/02/18 08:49 76 127/66 12/02/18 08:00 97.0 74 22 127/66 (86) 100 12/02/18 08:00 30 12/02/18 08:00 Mechanical Ventilator 12/02/18 07:04 72 24 30 12/02/18 06:20 80 118/64 12/02/18 05:10 80 25 30 12/02/18 04:00 78 12/02/18 04:00 Mechanical Ventilator 6.0 12/02/18 04:00 6.0 30 12/02/18 04:00 96.6 78 24 118/64 (82) 100 12/02/18 03:02 81 26 30 12/02/18 00:38 86 28 30 12/02/18 00:00 Mechanical Ventilator 6.0 12/02/18 00:00 6.0 30 12/02/18 00:00 97.1 93 24 154/76 (102) 97 12/02/18 00:00 93 12/01/18 23:11 77 30 30 12/01/18 22:14 86 112/55 12/01/18 21:20 81 26 30 12/01/18 20:00 6.0 30 12/01/18 20:00 79 12/01/18 20:00 Mechanical Ventilator 6.0 12/01/18 20:00 96.6 86 22 112/55 (74) 100 12/01/18 19:20 80 25 30 12/01/18 17:09 78 30 30 12/01/18 16:00 97.7 75 22 115/73 (87) 98 12/01/18 16:00 Mechanical Ventilator 6.0 12/01/18 16:00 6.0 30 12/01/18 15:29 77 12/01/18 15:09 76 25 30 I&O Intake and Output 12/01/18 12/02/18 18:59 06:59 Intake Total 2264.820 ml 1637.281 ml Output Total 1800 ml 1100 ml Balance 464.820 ml 537.281 ml IV Total 1744.820 ml 1247.281 ml Tube Feeding 520 ml 390 ml Output Urine Total 1800 ml 1100 ml # Bowel Movements 1 1 Dressing: saturated Wound: clean Cardiovascular: RSR Respiratory: clear Abdomen: soft, present bowel sounds, non-distended Extremities: other Laboratory Tests Test 12/01/18 20:00 12/02/18 03:50 Sodium Level 124 MMOL/L (136-145) L 124 MMOL/L (136-145) L Potassium Level 3.6 MMOL/L (3.5-5.1) 3.3 MMOL/L (3.5-5.1) L Chloride Level 89 MMOL/L (98-107) L 89 MMOL/L (98-107) L Carbon Dioxide Level 29 MMOL/L (21-32) 29 MMOL/L (21-32) Anion Gap 6 mmol/L (5-15) 6 mmol/L (5-15) Blood Urea Nitrogen 14 mg/dL (7-18) 14 mg/dL (7-18) Creatinine 0.4 MG/DL (0.55-1.30) L 0.4 MG/DL (0.55-1.30) L Estimat Glomerular Filtration Rate mL/min (>60) mL/min (>60) Glucose Level 115 MG/DL (74-106) H 118 MG/DL (74-106) H Calcium Level 7.7 MG/DL (8.5-10.1) L 7.5 MG/DL (8.5-10.1) L White Blood Count 10.1 K/UL (4.8-10.8) Red Blood Count 2.89 M/UL (4.20-5.40) L Hemoglobin 7.8 G/DL (12.0-16.0) L Hematocrit 21.7 % (37.0-47.0) L Mean Corpuscular Volume 75 FL (80-99) L Mean Corpuscular Hemoglobin 26.9 PG (27.0-31.0) L Mean Corpuscular Hemoglobin Concent 35.7 G/DL (32.0-36.0) Red Cell Distribution Width 19.0 % (11.6-14.8) H Platelet Count 226 K/UL (150-450) Mean Platelet Volume 6.6 FL (6.5-10.1) Neutrophils (%) (Auto) % (45.0-75.0) Lymphocytes (%) (Auto) % (20.0-45.0) Monocytes (%) (Auto) % (1.0-10.0) Eosinophils (%) (Auto) % (0.0-3.0) Basophils (%) (Auto) % (0.0-2.0) Differential Total Cells Counted 100 Neutrophils % (Manual) 74 % (45-75) Lymphocytes % (Manual) 6 % (20-45) L Monocytes % (Manual) 7 % (1-10) Eosinophils % (Manual) 1 % (0-3) Basophils % (Manual) 0 % (0-2) Band Neutrophils 12 % (0-8) H Platelet Estimate Adequate Platelet Morphology Normal Anisocytosis 1+ Microcytosis 1+ Plan Problems: (1) Fever (2) Tongue abnormality Assessment & Plan: patients jaw clenched closed and tongue has been stuck for some time. tongue split from middle teeth and now in two. edema and unable to reduce keep tongue moist. apply lube jelly prn dryness. will monitor do not recommend surgical intervention for this current medical condition spoke with family. ENT plan to see. OMFS no intervention (3) Tracheostomy dependence (4) Sepsis Assessment & Plan: gb no stones 6mm polyp no acute surgical intervention planned trend labs improving labs improved DAILY ESTIMATED NEEDS: Needs based on Critical care, sepsis, wound 60kg adj 22-30 kcals/kg 4240-5446 total kcals 1.25-2 g protein/kg 75-120 g total protein Fluid per MD, on lasix NUTRITION DIAGNOSIS: * Swallowing difficulty r/t respiratory status as evidenced by pt is vent dep via trach and PEG dep. * Increased kcal and pro needs r/t wound healing and sepsis as evidenced by pt w/ sacral and R heel wounds, febrile (Tmax 101.5). CURRENT TF: Jevity 1.2 @50 ml/hr x16 hrs ENTERAL NUTRITION RECOMMENDATIONS: Glucerna 1.2 @65ml/hr x18 hrs + Prosource x1 daily to provide 1170ml, 1404 kcal, 70g pro + 11g pro, 942 free H2O - REC TF CHANGE AND INCREASE TO BETTER MEET EST NEEDS - TF TO BE HELD FOR ONE HR BEFORE AND AFTER DILANTIN MEDS - START @20ML/HR, ADVANCE TOLERATED 15ML/HR Q4-6 HRS TO GOAL - FLUSH PER , HOB OVRE 30 DEGREES ADDITIONAL RECOMMENDATIONS: 1) CALIBRATED BED SCALE W/ ADDED P200 MATTRESS + PUMP 2) ON LASIX, MONITOR LYTES AND HYDRATION STATUS DAILY 3) TF TO RUN A MAX OF 18 HRS/DAY W/ DILANTIN TID PER PHARMACY 4) REC TF CHANGE TO CARB CONTROL FORMULA 5) WOUND CARE: ADD CHAYITO BID + VIT C 250MG DAILY (5) Fever Assessment & Plan: CT A/P with findings Impression: No definite acute process Diverticulosis. No evidence of diverticulitis Extensive edema of the subcutaneous fat. 2 cm focal fluid collection/edema seen within the incision Moderate amount retained dense stool. Correlate with any clinical history of constipation Hiatal hernia. Gastrostomy Left renal parapelvic cysts Apparent prior hysterectomy (6) Decubitus skin ulcer Assessment & Plan: Pt presented on admission with full thickness sacral pressure injury.Base of wound is 20% necrotic , 80% slough. borders are macerated . Mild odor noted. (L)8.4cm x (W) 6.5cm. Periwound skin tone is darker without erythema,induration or elevation in skin temp. Both heels are non -blanchable and both are fluctuant when palpated. Tx.Plan: Clean wound with saline. Apply Therahoney. Aply Moisture Barrier paste periwound. Cover with Optifoam drsg. Change every 3 days and prn. Apply Cavilon Skin BArrier to both heels. Cover each heel with Optifoam drsg. Change every 7 days and prn. APM/DEIRDRE mattress overlay. Reposition at least every 2hours or as tolerated. Off-load heels with pillow. will follow with recs thank you Preet Hylton Dec 02, 2018 14:10
[2018-12-02] MEDS ORDERED: Tubing IV Secondary IV ONE (15:51)
[2018-12-02 16:00] VITALS: BP 134/68
--- NOTE | 2018-12-02 18:27 | Pulmonology Progress Note ---
Assessment/Plan Assessment/Plan Pulmonary Progress Note Assessment/Plan Problems: (1) Ventilator dependence (2) Tracheostomy dependence (3) UTI (urinary tract infection) (4) Fever (5) Anoxic brain damage (6) Tongue abnormality (7) Seizure disorder (8) Colon adenocarcinoma (9) HTN (hypertension) (10) Sepsis (11) Diabetes (12) Abnormal LFTs (13) Protein calorie malnutrition (14) Gastrostomy in place (15) long-term resident (16) Decubitus skin ulcer (17) Hyponatremia - possible SIADH (18) Anemia Assessment/Plan Continue ventilatory support/settings reviewed Titrate down FiO2 to keep SaO2 > 90% Optimize pulmonary hygiene/mobilize as tolerated RTC and PRN HHN's Abx per ID, F/U Cx's F/U cards recs Monitor volumes and renal function PRN lasix DVT Px: LMWH ENT eval pending FC, continue to discuss GOC Wound care Subjective Allergies: Coded Allergies: Crayfish (Unverified Allergy, Unknown, 11/11/18) Uncoded Allergies: Crawfish (Allergy, Unknown, 11/09/18) Subjective AFVSS stable on vent no sig secretions no distress Objective Vital Signs Noted General Appearance: no acute distress, cachetic, other - non-verbal HEENT: normocephalic, status post trach, other - macroglossia, facial edema Respiratory/Chest: crackles/rales Cardiovascular: normal peripheral pulses, normal rate, regular rhythm Abdomen: normal bowel sounds, soft, non tender, no organomegaly, non distended , other - GT Extremities: no cyanosis, no clubbing, other - 1-2+ LEONORA Laboratory Tests 11/28/18 15:45: Urine Osmolality 291L, Urine Random Sodium 29 11/28/18 18:25: Sodium Level 125L, Potassium Level 3.3L, Chloride Level 90L, Carbon Dioxide Level 30, Anion Gap 5, Blood Urea Nitrogen 15, Creatinine 0.4L, Estimat Glomerular Filtration Rate , Glucose Level 120H, Osmolality 263L, Calcium Level 7.8L, Thyroid Stimulating Hormone (TSH) 2.816 11/29/18 04:00: Sodium Level 128L, Potassium Level 3.2L, Chloride Level 91L, Carbon Dioxide Level 32, Anion Gap 5, Blood Urea Nitrogen 15, Creatinine 0.4L, Estimat Glomerular Filtration Rate , Glucose Level 108H, Calcium Level 7.7L, White Blood Count 10.8, Red Blood Count 3.33L, Hemoglobin 8.6L, Hematocrit 25.8L, Mean Corpuscular Volume 78L, Mean Corpuscular Hemoglobin 26.0L, Mean Corpuscular Hemoglobin Concent 33.4, Red Cell Distribution Width 20.2H, Platelet Count 291, Mean Platelet Volume 5.5L, Neutrophils (%) (Auto) 77.0H, Lymphocytes (%) (Auto) 10.3L, Monocytes (%) (Auto) 6.7, Eosinophils (%) (Auto) 5.1H, Basophils (%) (Auto) 0.9, Total Bilirubin 0.3, Aspartate Amino Transf (AST /SGOT) 158H, Alanine Aminotransferase (ALT/SGPT) 105H, Alkaline Phosphatase 507H , Total Protein 4.9L, Albumin 0.9L, Globulin 4.0, Albumin/Globulin Ratio 0.2L, Cortisol AM Sample 15.5 Current Medications Medications (Trade) Dose Ordered Sig/Lupe Route PRN Reason Start Time Stop Time Status Last Admin Dose Admin Acetaminophen (Tylenol) 650 mg Q4H PRN GT Mild Pain/Temp > 100.5 11/09/18 05:00 12/09/18 04:59 11/24/18 21:50 Amlodipine Besylate (Norvasc) 10 mg DAILY GT 11/09/18 09:00 12/09/18 08:59 11/29/18 09:04 Bisacodyl (Dulcolax) 10 mg DAILY PRN RECTAL Constipation 11/09/18 05:00 12/09/18 04:59 Calcium Carbonate (Tums) 500 mg EVERY 8 HOURS GT 11/09/18 14:00 12/09/18 08:59 11/29/18 05:06 Chlorhexidine Gluconate (Corazon-Hex 2%) 1 applic DAILY@1999 TOPIC 11/12/18 20:00 12/12/18 19:59 11/28/18 20:05 Dextrose (Dextrose 50%) 25 ml Q30M PRN IV Hypoglycemia 11/09/18 04:45 12/09/18 04:44 Dextrose (Dextrose 50%) 50 ml Q30M PRN IV Hypoglycemia 11/09/18 04:45 12/09/18 04:44 11/09/18 09:09 Enoxaparin Sodium (Lovenox) 40 mg DAILY SUBQ 11/09/18 09:00 12/09/18 08:59 11/29/18 09:08 Famotidine (Pepcid) 20 mg EVERY 12 HOURS GT 11/09/18 21:00 12/09/18 08:59 11/29/18 09:04 Hydralazine HCl (Apresoline) 5 mg EVERY 8 HOURS GT 11/09/18 06:00 12/09/18 05:59 11/28/18 14:08 Insulin Aspart (NovoLOG) Q6HR SUBQ 11/09/18 06:00 12/09/18 05:59 11/29/18 05:07 Insulin Detemir (Levemir) 4 units EVERY 12 HOURS SUBQ 11/16/18 21:00 12/09/18 08:59 11/29/18 09:18 Labetalol HCl (Normodyne) 200 mg Q8HR GT 11/09/18 06:00 12/09/18 05:59 11/29/18 05:06 Lactulose (Cephulac) 10 gm THREE TIMES A DAY GT 11/27/18 18:00 12/27/18 12:59 11/29/18 09:22 Levetiracetam (Keppra) 1,500 mg Q12HR GT 11/09/18 09:00 12/09/18 08:59 11/29/18 09:05 Magnesium Hydroxide (Mom) 30 ml DAILY PRN GT Constipation 11/09/18 05:00 12/09/18 04:59 Magnesium Oxide (Mag-Ox 400mg) 400 mg EVERY 8 HOURS GT 11/09/18 14:00 12/09/18 08:59 11/29/18 05:06 Metronidazole (Flagyl) 500 mg EVERY 8 HOURS ORAL 11/28/18 14:00 12/05/18 13:59 11/29/18 05:06 Micafungin Sodium 100 mg/Sodium Chloride 100 ml @ 100 mls/hr Q24H IVPB 11/24/18 14:00 12/01/18 13:59 11/28/18 14:08 Ondansetron HCl (Zofran) 4 mg Q6H PRN GT Nausea & Vomiting 11/09/18 05:00 12/09/18 04:59 Phenobarbital (PHENobarbital) 60 mg BID GT 11/09/18 09:00 12/09/18 08:59 11/29/18 09:07 Phenytoin (Dilantin) 100 mg Q8HR GT 11/09/18 06:00 12/09/18 05:59 11/29/18 06:01 Polyethylene Glycol (Miralax) 17 gm DAILYPRN PRN GT Constipation 11/14/18 10:30 12/12/18 10:29 Polymyxin B Sulfate 417167 units/Dextrose 550 ml @ 550 mls/hr EVERY 12 HOURS IV 11/26/18 21:00 12/03/18 20:59 11/29/18 09:08 Sennosides (Senokot) 8.6 mg EVERY 12 HOURS GT 11/09/18 21:00 12/09/18 08:59 11/29/18 09:03 Sodium Chloride 1,000 ml @ 100 mls/hr Q10H IV 11/28/18 17:25 12/28/18 17:24 11/29/18 03:01 Vancomycin HCl (Vanco rx to dose) 1 ea DAILY PRN MISC Per rx protocol 11/28/18 11:45 12/28/18 11:44 Vancomycin HCl 1 gm/Dextrose 275 ml @ 183.708 mls/hr Q12HR@0400,1600 IVPB 11/28/18 16:00 12/03/18 15:59 11/29/18 03:03 Subjective ROS Limited/Unobtainable: No Allergies: Coded Allergies: Crayfish (Unverified Allergy, Unknown, 11/11/18) Uncoded Allergies: Crawfish (Allergy, Unknown, 11/09/18) Objective Last 24 Hour Vital Signs Date Time Temp Pulse Resp B/P (MAP) Pulse Ox O2 Delivery O2 Flow Rate FiO2 12/02/18 17:15 76 26 30 12/02/18 16:00 Mechanical Ventilator 12/02/18 16:00 98.5 73 17 134/68 (90) 100 12/02/18 16:00 30 12/02/18 15:58 67 12/02/18 14:55 71 22 30 12/02/18 14:18 68 131/56 12/02/18 13:05 68 24 30 12/02/18 12:00 71 12/02/18 12:00 97.9 79 19 131/56 (81) 100 12/02/18 12:00 Mechanical Ventilator 12/02/18 12:00 30 12/02/18 10:55 79 25 30 12/02/18 09:02 75 28 30 12/02/18 08:59 73 12/02/18 08:49 76 127/66 12/02/18 08:00 97.0 74 22 127/66 (86) 100 12/02/18 08:00 30 12/02/18 08:00 Mechanical Ventilator 12/02/18 07:04 72 24 30 12/02/18 06:20 80 118/64 12/02/18 05:10 80 25 30 12/02/18 04:00 78 12/02/18 04:00 Mechanical Ventilator 6.0 12/02/18 04:00 6.0 30 12/02/18 04:00 96.6 78 24 118/64 (82) 100 12/02/18 03:02 81 26 30 12/02/18 00:38 86 28 30 12/02/18 00:00 Mechanical Ventilator 6.0 12/02/18 00:00 6.0 30 12/02/18 00:00 97.1 93 24 154/76 (102) 97 12/02/18 00:00 93 12/01/18 23:11 77 30 30 12/01/18 22:14 86 112/55 12/01/18 21:20 81 26 30 12/01/18 20:00 6.0 30 12/01/18 20:00 79 12/01/18 20:00 Mechanical Ventilator 6.0 12/01/18 20:00 96.6 86 22 112/55 (74) 100 12/01/18 19:20 80 25 30 Intake and Output 12/01/18 12/02/18 19:00 07:00 Intake Total 2294.820 ml 1607.281 ml Output Total 1800 ml 1100 ml Balance 494.820 ml 507.281 ml IV Total 1774.820 ml 1217.281 ml Tube Feeding 520 ml 390 ml Output Urine Total 1800 ml 1100 ml # Bowel Movements 1 1 Laboratory Tests 12/01/18 20:00: Sodium Level 124L, Potassium Level 3.6, Chloride Level 89L, Carbon Dioxide Level 29, Anion Gap 6, Blood Urea Nitrogen 14, Creatinine 0.4L, Estimat Glomerular Filtration Rate , Glucose Level 115H, Calcium Level 7.7L 12/02/18 03:50: Sodium Level 124L, Potassium Level 3.3L, Chloride Level 89L, Carbon Dioxide Level 29, Anion Gap 6, Blood Urea Nitrogen 14, Creatinine 0.4L, Estimat Glomerular Filtration Rate , Glucose Level 118H, Calcium Level 7.5L, White Blood Count 10.1, Red Blood Count 2.89L, Hemoglobin 7.8L, Hematocrit 21.7L, Mean Corpuscular Volume 75L, Mean Corpuscular Hemoglobin 26.9L, Mean Corpuscular Hemoglobin Concent 35.7, Red Cell Distribution Width 19.0H, Platelet Count 226, Mean Platelet Volume 6.6, Neutrophils (%) (Auto) , Lymphocytes (%) (Auto) , Monocytes (%) (Auto) , Eosinophils (%) (Auto) , Basophils (%) (Auto) , Differential Total Cells Counted 100, Neutrophils % ( Manual) 74, Lymphocytes % (Manual) 6L, Monocytes % (Manual) 7, Eosinophils % ( Manual) 1, Basophils % (Manual) 0, Band Neutrophils 12H, Platelet Estimate Adequate, Platelet Morphology Normal, Anisocytosis 1+, Microcytosis 1+ Current Medications Medications (Trade) Dose Ordered Sig/Lupe Route PRN Reason Start Time Stop Time Status Last Admin Dose Admin Acetaminophen (Tylenol) 650 mg Q4H PRN GT Mild Pain/Temp > 100.5 11/09/18 05:00 12/09/18 04:59 11/24/18 21:50 Amlodipine Besylate (Norvasc) 10 mg DAILY GT 11/09/18 09:00 12/09/18 08:59 12/02/18 08:49 Bisacodyl (Dulcolax) 10 mg DAILY PRN RECTAL Constipation 11/09/18 05:00 12/09/18 04:59 Chlorhexidine Gluconate (Corazon-Hex 2%) 1 applic DAILY@1999 TOPIC 11/12/18 20:00 12/12/18 19:59 12/01/18 20:53 Dextrose (Dextrose 50%) 25 ml Q30M PRN IV Hypoglycemia 11/09/18 04:45 12/09/18 04:44 Dextrose (Dextrose 50%) 50 ml Q30M PRN IV Hypoglycemia 11/09/18 04:45 12/09/18 04:44 11/09/18 09:09 Enoxaparin Sodium (Lovenox) 40 mg DAILY SUBQ 11/09/18 09:00 12/09/18 08:59 12/02/18 08:48 Famotidine (Pepcid) 20 mg EVERY 12 HOURS GT 11/09/18 21:00 12/09/18 08:59 12/02/18 08:48 Insulin Aspart (NovoLOG) Q6HR SUBQ 11/09/18 06:00 12/09/18 05:59 12/02/18 17:40 Insulin Detemir (Levemir) 4 units EVERY 12 HOURS SUBQ 11/16/18 21:00 12/09/18 08:59 12/02/18 09:11 Labetalol HCl (Normodyne) 200 mg Q8HR GT 11/09/18 06:00 12/09/18 05:59 12/02/18 14:18 Lactulose (Cephulac) 10 gm THREE TIMES A DAY GT 11/27/18 18:00 12/27/18 12:59 12/02/18 17:38 Levetiracetam (Keppra) 1,500 mg Q12HR GT 11/09/18 09:00 12/09/18 08:59 12/02/18 08:48 Magnesium Hydroxide (Mom) 30 ml DAILY PRN GT Constipation 11/09/18 05:00 12/09/18 04:59 Metronidazole (Flagyl) 500 mg EVERY 8 HOURS GT 11/30/18 14:00 12/05/18 13:59 12/02/18 14:19 Micafungin Sodium 100 mg/Sodium Chloride 100 ml @ 100 mls/hr Q24H IVPB 11/29/18 14:00 12/06/18 13:59 12/02/18 14:18 Ondansetron HCl (Zofran) 4 mg Q6H PRN GT Nausea & Vomiting 11/09/18 05:00 12/09/18 04:59 Phenobarbital (PHENobarbital) 60 mg BID GT 11/09/18 09:00 12/09/18 08:59 12/02/18 17:39 Phenytoin (Dilantin) 100 mg Q8HR GT 11/09/18 06:00 12/09/18 05:59 12/02/18 14:19 Polyethylene Glycol (Miralax) 17 gm DAILYPRN PRN GT Constipation 11/14/18 10:30 12/12/18 10:29 Polymyxin B Sulfate 120686 units/Dextrose 550 ml @ 550 mls/hr EVERY 12 HOURS IV 11/26/18 21:00 12/03/18 20:59 12/02/18 09:09 Sennosides (Senokot) 8.6 mg EVERY 12 HOURS GT 11/09/18 21:00 12/09/18 08:59 12/02/18 08:48 Sodium Chloride 250 ml @ 30 mls/hr ONCE ONCE IV 12/02/18 10:30 12/02/18 18:49 12/02/18 10:31 Vancomycin HCl (Vanco rx to dose) 1 ea DAILY PRN MISC Per rx protocol 11/28/18 11:45 12/28/18 11:44 Vancomycin HCl 1 gm/Dextrose 275 ml @ 183.708 mls/hr Q12HR@0400,1600 IVPB 11/28/18 16:00 12/03/18 23:59 12/02/18 16:01 Eloy Vega MD Dec 02, 2018 18:27
--- NOTE | 2018-12-02 19:17 | NUR ---
HAND-OFF: Report given to CHARLEE Bhakta.
--- NOTE | 2018-12-02 19:17 | NUR ---
HAND-OFF: Report given to CHARLEE Bhakta.
--- NOTE | 2018-12-02 19:18 | NUR ---
NURSE NOTES: Received patient from Alessia RN. Patient is obtunded. Receiving oxygen via trach to vent: Shiley 8 AC 14, TV 375, FiO2 30%, PEEP 5. G-tube is patent and receiving 1.2 at 65cc/hr, patient tolerating well, no residuals. IV site is right upper arm PICC receiving 3% Sodium Chloride at 30cc/hr. Bed is locked, placed in lowest position, side rails up x3, call light within reach, bed alarm on. Will continue to monitor.
[2018-12-02 20:00] VITALS: BP 124/71
[2018-12-02] MEDS: Dyna-Hex 2% Top Sol 2oz TOPIC SCH (20:12)
[2018-12-02 21:18] LABS: ANION GAP 5 mmol/L (5-15); BLOOD UREA NITROGEN 15 mg/dL (7-18); CALCIUM 7.9 MG/DL (8.5-10.1); CARBON DIOXIDE 31 MMOL/L (21-32); CHLORIDE 92 MMOL/L (98-107); CREATININE 0.4 MG/DL (0.55-1.30); POTASSIUM 3.5 MMOL/L (3.5-5.1); SODIUM 127 MMOL/L (136-145)
[2018-12-03] VITALS: BP 94/50
[2018-12-03] MEDS: Vancomycin 1 GM in D5W 275 ML IVPB SCH (03:51)
[2018-12-03 04:00] VITALS: BP 109/59
[2018-12-03 05:09] LABS: HEMATOCRIT 22.2 % (37.0-47.0); HEMOGLOBIN 7.6 G/DL (12.0-16.0); MEAN CORPUSCULAR VOLUME 77 FL (80-99); PLATELET COUNT 203 K/UL (150-450); RED CELL DISTRIBUTION WIDTH 19.6 % (11.6-14.8); WHITE BLOOD COUNT 11.7 K/UL (4.8-10.8)
[2018-12-03 05:41] LABS: ALANINE AMINOTRANSFERASE 69 U/L (12-78); ALBUMIN 1.5 G/DL (3.4-5.0); ALBUMIN/GLOBULIN RATIO 0.4 (1.0-2.7); ALKALINE PHOSPHATASE 475 U/L (46-116); ANION GAP 6 mmol/L (5-15); ASPARTATE AMINO TRANSFERASE 69 U/L (15-37); BILIRUBIN,TOTAL 0.4 MG/DL (0.2-1.0); BLOOD UREA NITROGEN 16 mg/dL (7-18); CALCIUM 7.8 MG/DL (8.5-10.1); CARBON DIOXIDE 29 MMOL/L (21-32); CHLORIDE 90 MMOL/L (98-107); CREATININE 0.4 MG/DL (0.55-1.30); POTASSIUM 3.4 MMOL/L (3.5-5.1); SODIUM 125 MMOL/L (136-145)
[2018-12-03] MEDS: metroNIDAZOLE 500mg tab GT SCH ×3 (05:43→22:04)
[2018-12-03] MEDS: Phenytoin Susp 100mg/4ml GT SCH ×3 (05:43→22:05)
[2018-12-03] MEDS: Labetalol 200mg tab GT SCH ×3 (05:44→22:05)
[2018-12-03] MEDS: Magic Mouth Wash 60ml (Benadryl/Mylanta/Visc Lido) ORAL SCH ×3 (05:48→22:04)
[2018-12-03] MEDS: NovoLOG Insulin Flexpen SUBQ SCH ×4 (05:48→23:41)
--- NOTE | 2018-12-03 06:24 | NUR ---
NURSE NOTES: Left message to Dr. Buck's office regarding Potassium level of 3.4 MMOL/L and Hemoglobin level of 7.6 G/DL. Awaiting orders.
--- NOTE | 2018-12-03 06:52 | General Progress Note ---
Assessment/Plan Status: unchanged Assessment/Plan: (1) Abnormal LFTs ICD Codes: R94.5 - Abnormal results of liver function studies SNOMED: 288488060 (2) Decubitus skin ulcer ICD Codes: L89.90 - Pressure ulcer of unspecified site, unspecified stage SNOMED: 214981936 (3) Protein calorie malnutrition ICD Codes: E46 - Unspecified protein-calorie malnutrition SNOMED: 593692300 (4) Colon adenocarcinoma ICD Codes: C18.9 - Malignant neoplasm of colon, unspecified SNOMED: 770100391 (5) Sepsis ICD Codes: A41.9 - Sepsis, unspecified organism SNOMED: 12762088 (6) Tracheostomy dependence ICD Codes: Z93.0 - Tracheostomy status SNOMED: 593418003 (7) Gastrostomy in place ICD Codes: Z93.1 - Gastrostomy status SNOMED: 37739639, 13795592, 642491163 Status: stable Status Narrative Discussed with Dr. Humphries. Assessment/Plan Assessment - Iron deficiency anemia - abnormal LFT - ? meds, passive congestion - dysphagia, s/p GT - Resp, failure, s/p Trach - hepatitis panel negative Recommendations - Continue TF - Monitor LFT - follow CBC - Conservative approach given poor healt- -CT and us reviewed Subjective ROS Limited/Unobtainable: No Allergies: Coded Allergies: Crayfish (Unverified Allergy, Unknown, 11/11/18) Uncoded Allergies: Crawfish (Allergy, Unknown, 11/09/18) Subjective fever last night had BM Objective Last 24 Hour Vital Signs Date Time Temp Pulse Resp B/P (MAP) Pulse Ox O2 Delivery O2 Flow Rate FiO2 12/03/18 05:44 63 108/55 12/03/18 04:45 65 23 30 12/03/18 04:00 Mechanical Ventilator 12/03/18 04:00 96.5 66 20 109/59 (76) 100 12/03/18 04:00 30 12/03/18 03:35 65 12/03/18 03:26 74 24 30 12/03/18 00:50 65 26 30 12/03/18 00:00 Mechanical Ventilator 12/03/18 00:00 96.0 65 23 94/50 (65) 100 12/02/18 23:57 62 12/02/18 22:59 69 23 30 12/02/18 21:43 71 110/57 12/02/18 20:52 77 24 30 12/02/18 20:00 Mechanical Ventilator 12/02/18 20:00 30 12/02/18 20:00 96.1 97 18 124/71 (88) 100 12/02/18 20:00 74 12/02/18 19:15 72 22 30 12/02/18 17:15 76 26 30 12/02/18 16:00 Mechanical Ventilator 12/02/18 16:00 98.5 73 17 134/68 (90) 100 12/02/18 16:00 30 12/02/18 15:58 67 12/02/18 14:55 71 22 30 12/02/18 14:18 68 131/56 12/02/18 13:05 68 24 30 12/02/18 12:00 71 12/02/18 12:00 97.9 79 19 131/56 (81) 100 12/02/18 12:00 Mechanical Ventilator 12/02/18 12:00 30 12/02/18 10:55 79 25 30 12/02/18 09:02 75 28 30 12/02/18 08:59 73 12/02/18 08:49 76 127/66 12/02/18 08:00 97.0 74 22 127/66 (86) 100 12/02/18 08:00 30 12/02/18 08:00 Mechanical Ventilator 12/02/18 07:04 72 24 30 Intake and Output 12/02/18 12/03/18 19:00 07:00 Intake Total 1905.000 ml 605 ml Output Total 1200 ml 700 ml Balance 705.000 ml -95 ml Intake Free Water 150 ml IV Total 1225.000 ml Tube Feeding 650 ml 455 ml Other 30 ml Output Urine Total 1200 ml 700 ml # Bowel Movements 2 3 Laboratory Tests 12/02/18 18:20: Stool Occult Blood [Pending] 12/02/18 20:30: Sodium Level 127L, Potassium Level 3.5, Chloride Level 92L, Carbon Dioxide Level 31, Anion Gap 5, Blood Urea Nitrogen 15, Creatinine 0.4L, Estimat Glomerular Filtration Rate , Glucose Level 107H, Calcium Level 7.9L 12/03/18 04:00: Sodium Level 125L, Potassium Level 3.4L, Chloride Level 90L, Carbon Dioxide Level 29, Anion Gap 6, Blood Urea Nitrogen 16, Creatinine 0.4L, Estimat Glomerular Filtration Rate , Glucose Level 96, Calcium Level 7.8L, White Blood Count 11.7H, Red Blood Count 2.90L, Hemoglobin 7.6L, Hematocrit 22.2L, Mean Corpuscular Volume 77L, Mean Corpuscular Hemoglobin 26.2L, Mean Corpuscular Hemoglobin Concent 34.2, Red Cell Distribution Width 19.6H, Platelet Count 203, Mean Platelet Volume 6.6, Neutrophils (%) (Auto) , Lymphocytes (%) (Auto) , Monocytes (%) (Auto) , Eosinophils (%) (Auto) , Basophils (%) (Auto) , Neutrophils % (Manual) [Pending], Lymphocytes % (Manual) [Pending], Platelet Estimate [Pending], Platelet Morphology [Pending], Total Bilirubin 0.4, Aspartate Amino Transf (AST/SGOT) 69H, Alanine Aminotransferase (ALT/SGPT) 69, Alkaline Phosphatase 475H, Total Protein 5.0L, Albumin 1.5L, Globulin 3.5, Albumin/Globulin Ratio 0.4L Height (Feet): 5 Height (Inches): 8.00 Weight (Pounds): 208 General Appearance: no apparent distress EENT: normal ENT inspection Neck: normal alignment Cardiovascular: normal rate Respiratory/Chest: decreased breath sounds Abdomen: normal bowel sounds, non tender, soft Extremities: non-tender Casper Humphries MD Dec 03, 2018 06:52
--- NOTE | 2018-12-03 07:10 | NUR ---
HAND-OFF: Report given to Alessia DESHPANDE.
--- NOTE | 2018-12-03 07:11 | NUR ---
NURSE NOTES: Received patient in bed. In no apparent distress. Vent dependent. With ongoing GTF. Ospina cath inplace. PICC line inplace, PICC dressing dated 11/30/18. No respiratory distress. Swollen tongue noted. Multiple wound dressing noted to be dry and intact. Contact isolation observed. Will continue plan of care.
[2018-12-03 08:00] VITALS: BP 105/58
[2018-12-03] MEDS: PHENobarbital Elixir 30mg/7.5ml GT SCH ×2 (08:41→17:07)
[2018-12-03] MEDS: Lactulose 10gm/15ml UDC GT SCH ×3 (08:41→17:07)
[2018-12-03] MEDS: Sennosides 8.6mg tab GT SCH ×2 (08:41→20:43)
[2018-12-03] MEDS: levETIRAcetam 500mg/5ml Liquid GT SCH ×2 (08:41→20:43)
[2018-12-03] MEDS ORDERED: NaCl 3% 500ml 250 ML IV ONE (09:00)
[2018-12-03] MEDS: Polymyxin B Sulfate 500,000 UNITS in D5W 500ml 550 ML IV SCH (09:04)
[2018-12-03] MEDS: Levemir Flexpen SUBQ SCH ×2 (09:05→20:45)
[2018-12-03] MEDS: Enoxaparin 40mg Inj SUBQ SCH (09:06)
--- NOTE | 2018-12-03 09:10 | NUR ---
NURSE NOTES: Dr. Healy at bedside.
--- NOTE | 2018-12-03 10:25 | Hematology/Onc Progress Note ---
Assessment/Plan Assessment/Plan # Anemia of chronic disease due to underlying chronic medical issues, multifactorial --> Anemia workup has been reviewed and cw acd --> No evidence of hemolysis is noted, peripheral smear has been reviewed. --> Hgb goal >7. Transfuse prn. --> hgb trend 9-->8-->7.5-->9.3->8.6-->8.4-->8.7->7.6 --> Epogen or iron indication prn --> Medications have been reviewed --> low threshold for gi evaluation and occult is negative --> bone marrow biopsy is not indicated given the other more likely causes # Leukocytosis with sepsis secondary to UTI, GPC Staph Epidermidis bacteremia, Line associated infection - patient arrived to the Hospital with PICC --> as per ID consult appreciate Rec --> Continue antibiotics per ID: Continue Zosyn and vancomycin, anti fungal added--> kaykay/vanc, diflucan-->flagyl, vanc, polymyxin--> omid/flafgyl/polym/ vanc --> imaging noted --> now improved # Thrombocytosis is likely due to underlying reactive process --> if doesn't improve send off jak2 --> plt count 641k-->402k-->344-->275k-->280k-->250k-->255k # Elevated tumor marker, cea --> as per gi eval # Transaminitis --> trend lft's --> GI consult, apprec recs --> ab us: reviewed # Elevated troponin secondary to sepsis versus ACS --> as per Cardiology consult, appreciate recs # Hypertension- improved --> sbp goal <150 # Vent dependent with trach --> as per Pulmonary recs # Hypokalemia # Dysphagia s/p gtube feeds # CHf hx with hyponatremia --> 1l fluid restriction # Dvt ppx with lovenox (ok to continue given occult neg) The timing of this note does not necessarily reflect the time of the patient was seen. GREATLY APPRECIATE CONSULTATION. Subjective HEENT: Denies: no symptoms, eye pain, blurred vision, tearing, double vision, ear pain, ear discharge, nose pain, nose congestion, throat pain, throat swelling, mouth pain, mouth swelling, other Respiratory: Denies: no symptoms, cough, shortness of breath, SOB with excertion, SOB at rest, sputum, wheezing, other Genitourinary: Denies: no symptoms, burning, discharge, frequency, flank pain, hematuria, incontinence, pain, urgency, other Neurologic/Psychiatric: Denies: no symptoms, anxiety, depressed, emotional problems, headache, numbness, paresthesia, pre-existing deficit, seizure, tingling, tremors, weakness, other Endocrine: Denies: no symptoms, excessive sweating, flushing, intolerance to cold, intolerance to heat, increased hunger, increased thirst, increased urine, unexplained weight gain, unexplained weight loss, other Hematologic/Lymphatic: Denies: no symptoms, anemia, easy bleeding, easy bruising, adenopathy, other Allergies: Coded Allergies: Crayfish (Unverified Allergy, Unknown, 11/11/18) Uncoded Allergies: Crawfish (Allergy, Unknown, 11/09/18) Subjective 11/14: no events to report, labs relatively stable, hgb 8.9, on vent 11/15: no bleeding, no chills, labs reviewed, no major changes 11/16: cxr-->bilateral interstitial edema, vs stable, on abx, on vent, contact isolation 11/17: labs reviewed, on abx, vs stable, on vent, no distress 11/18: remains on gtube feeds, is on vent, on kaykay/vanc 11/20: no events, no bleeding, kaykay, vanc, diflucan, no f/c 11/21: remains on vent, gtube feeds, no major changes, no bleeding 11/22: ct abdomen pelvis w/contrast reviewed, vs stable, no acute events, labs reviewed, remains intubated, low grade fever 11/23: reviewed meds, abx have been changed, remains altered currently 11/24: labs reviewed, vs stable, med reviewed, no sob, no distress, on vent 11/25: remains on vent, no major events, on glucerna, fluid restriction 11/27: signed consent today, no f/c, no night sweats 11/28: no f/c, on abx, on vent, no distress, picc line in 11/29: no events to report, no f/c, no bleeding noted, on vent 11/30: vs stable, no f/c, on vent, obtunded, gtube feeds 12/01: no f/c, cxr-->pulmonary edema, meds reviewed, contact precaution, on vent , labs noted 12/03: ongoing gtube feeds, nava in place, on vent, no bleeding Objective Objective Current Medications Medications (Trade) Dose Ordered Sig/Lupe Route PRN Reason Start Time Stop Time Status Last Admin Dose Admin Acetaminophen (Tylenol) 650 mg Q4H PRN GT Mild Pain/Temp > 100.5 11/09/18 05:00 12/09/18 04:59 11/24/18 21:50 Amlodipine Besylate (Norvasc) 10 mg DAILY GT 11/09/18 09:00 12/09/18 08:59 12/02/18 08:49 Bisacodyl (Dulcolax) 10 mg DAILY PRN RECTAL Constipation 11/09/18 05:00 12/09/18 04:59 Chlorhexidine Gluconate (Corazon-Hex 2%) 1 applic DAILY@2000 TOPIC 11/12/18 20:00 12/12/18 19:59 12/02/18 20:12 Dextrose (Dextrose 50%) 25 ml Q30M PRN IV Hypoglycemia 11/09/18 04:45 12/09/18 04:44 Dextrose (Dextrose 50%) 50 ml Q30M PRN IV Hypoglycemia 11/09/18 04:45 12/09/18 04:44 11/09/18 09:09 Enoxaparin Sodium (Lovenox) 40 mg DAILY SUBQ 11/09/18 09:00 12/09/18 08:59 12/03/18 09:06 Famotidine (Pepcid) 20 mg EVERY 12 HOURS GT 11/09/18 21:00 12/09/18 08:59 12/03/18 08:41 Insulin Aspart (NovoLOG) Q6HR SUBQ 11/09/18 06:00 12/09/18 05:59 12/03/18 05:48 Insulin Detemir (Levemir) 4 units EVERY 12 HOURS SUBQ 11/16/18 21:00 12/09/18 08:59 12/03/18 09:05 Labetalol HCl (Normodyne) 200 mg Q8HR GT 11/09/18 06:00 12/09/18 05:59 12/03/18 05:44 Lactulose (Cephulac) 10 gm THREE TIMES A DAY GT 11/27/18 18:00 12/27/18 12:59 12/03/18 08:41 Levetiracetam (Keppra) 1,500 mg Q12HR GT 11/09/18 09:00 12/09/18 08:59 12/03/18 08:41 Magnesium Hydroxide (Mom) 30 ml DAILY PRN GT Constipation 11/09/18 05:00 12/09/18 04:59 Metronidazole (Flagyl) 500 mg EVERY 8 HOURS GT 11/30/18 14:00 12/05/18 13:59 12/03/18 05:43 Micafungin Sodium 100 mg/Sodium Chloride 100 ml @ 100 mls/hr Q24H IVPB 11/29/18 14:00 12/06/18 13:59 12/02/18 14:18 Ondansetron HCl (Zofran) 4 mg Q6H PRN GT Nausea & Vomiting 11/09/18 05:00 12/09/18 04:59 Phenobarbital (PHENobarbital) 60 mg BID GT 11/09/18 09:00 12/09/18 08:59 12/03/18 08:41 Phenytoin (Dilantin) 100 mg Q8HR GT 11/09/18 06:00 12/09/18 05:59 12/03/18 05:43 Polyethylene Glycol (Miralax) 17 gm DAILYPRN PRN GT Constipation 11/14/18 10:30 12/12/18 10:29 Polymyxin B Sulfate 638137 units/Dextrose 550 ml @ 550 mls/hr EVERY 12 HOURS IV 11/26/18 21:00 12/03/18 20:59 12/03/18 09:04 Sennosides (Senokot) 8.6 mg EVERY 12 HOURS GT 11/09/18 21:00 12/09/18 08:59 12/03/18 08:41 Sodium Chloride 250 ml @ 30 mls/hr ONCE ONCE IV 12/03/18 09:00 12/03/18 17:19 Vancomycin HCl (Vanco rx to dose) 1 ea DAILY PRN MISC Per rx protocol 11/28/18 11:45 12/28/18 11:44 Vancomycin HCl 1 gm/Dextrose 275 ml @ 183.708 mls/hr Q12HR@0400,1600 IVPB 11/28/18 16:00 12/03/18 23:59 12/03/18 03:51 Last 24 Hour Vital Signs Date Time Temp Pulse Resp B/P (MAP) Pulse Ox O2 Delivery O2 Flow Rate FiO2 12/03/18 09:28 71 23 30 12/03/18 08:46 65 105/58 12/03/18 08:00 97.0 65 19 105/58 (74) 100 12/03/18 08:00 Mechanical Ventilator 12/03/18 08:00 30 12/03/18 07:45 66 12/03/18 06:38 67 23 30 12/03/18 05:44 63 108/55 12/03/18 04:45 65 23 30 12/03/18 04:00 Mechanical Ventilator 12/03/18 04:00 96.5 66 20 109/59 (76) 100 12/03/18 04:00 30 12/03/18 03:35 65 12/03/18 03:26 74 24 30 12/03/18 00:50 65 26 30 12/03/18 00:00 Mechanical Ventilator 12/03/18 00:00 96.0 65 23 94/50 (65) 100 12/02/18 23:57 62 12/02/18 22:59 69 23 30 12/02/18 21:43 71 110/57 12/02/18 20:52 77 24 30 12/02/18 20:00 Mechanical Ventilator 12/02/18 20:00 30 12/02/18 20:00 96.1 97 18 124/71 (88) 100 12/02/18 20:00 74 12/02/18 19:15 72 22 30 12/02/18 17:15 76 26 30 12/02/18 16:00 Mechanical Ventilator 12/02/18 16:00 98.5 73 17 134/68 (90) 100 12/02/18 16:00 30 12/02/18 15:58 67 12/02/18 14:55 71 22 30 12/02/18 14:18 68 131/56 12/02/18 13:05 68 24 30 12/02/18 12:00 71 12/02/18 12:00 97.9 79 19 131/56 (81) 100 12/02/18 12:00 Mechanical Ventilator 12/02/18 12:00 30 12/02/18 10:55 79 25 30 12/02/18 09:02 75 28 30 12/02/18 08:59 73 12/02/18 08:49 76 127/66 12/02/18 08:00 97.0 74 22 127/66 (86) 100 12/02/18 08:00 30 12/02/18 08:00 Mechanical Ventilator 12/02/18 07:04 72 24 30 12/02/18 06:20 80 118/64 12/02/18 05:10 80 25 30 12/02/18 04:00 78 12/02/18 04:00 Mechanical Ventilator 6.0 12/02/18 04:00 6.0 30 12/02/18 04:00 96.6 78 24 118/64 (82) 100 12/02/18 03:02 81 26 30 12/02/18 00:38 86 28 30 12/02/18 00:00 Mechanical Ventilator 6.0 12/02/18 00:00 6.0 30 12/02/18 00:00 97.1 93 24 154/76 (102) 97 12/02/18 00:00 93 12/01/18 23:11 77 30 30 12/01/18 22:14 86 112/55 12/01/18 21:20 81 26 30 12/01/18 20:00 6.0 30 12/01/18 20:00 79 12/01/18 20:00 Mechanical Ventilator 6.0 12/01/18 20:00 96.6 86 22 112/55 (74) 100 12/01/18 19:20 80 25 30 12/01/18 17:09 78 30 30 12/01/18 16:00 97.7 75 22 115/73 (87) 98 12/01/18 16:00 Mechanical Ventilator 6.0 12/01/18 16:00 6.0 30 12/01/18 15:29 77 12/01/18 15:09 76 25 30 12/01/18 13:42 75 146/74 12/01/18 12:38 75 23 30 12/01/18 12:00 97.7 75 20 146/74 (98) 100 12/01/18 12:00 Mechanical Ventilator 6.0 12/01/18 12:00 6.0 30 12/01/18 11:30 77 12/01/18 10:56 74 25 30 Intake and Output 12/02/18 12/03/18 18:59 06:59 Intake Total 1840.000 ml 670 ml Output Total 1200 ml 700 ml Balance 640.000 ml -30 ml Intake Free Water 150 ml IV Total 1225.000 ml Tube Feeding 585 ml 520 ml Other 30 ml Output Urine Total 1200 ml 700 ml # Bowel Movements 2 3 Labs Test 11/30/18 13:22 11/30/18 14:00 12/01/18 03:30 12/01/18 08:55 Urine Osmolality 388 mOsm/kg (429-449) Sodium Level 131 MMOL/L (136-145) 123 MMOL/L (136-145) 120 MMOL/L (136-145) Potassium Level 3.1 MMOL/L (3.5-5.1) 3.8 MMOL/L (3.5-5.1) 3.8 MMOL/L (3.5-5.1) Chloride Level 99 MMOL/L (98-107) 89 MMOL/L (98-107) 87 MMOL/L (98-107) Carbon Dioxide Level 25 MMOL/L (21-32) 31 MMOL/L (21-32) 29 MMOL/L (21-32) Anion Gap 7 mmol/L (5-15) 3 mmol/L (5-15) 4 mmol/L (5-15) Blood Urea Nitrogen 10 mg/dL (7-18) 15 mg/dL (7-18) 15 mg/dL (7-18) Creatinine 0.3 MG/DL (0.55-1.30) 0.3 MG/DL (0.55-1.30) 0.4 MG/DL (0.55-1.30) Estimat Glomerular Filtration Rate mL/min (>60) mL/min (>60) mL/min (>60) Glucose Level 141 MG/DL (74-106) 118 MG/DL (74-106) 182 MG/DL (74-106) Calcium Level 6.4 MG/DL (8.5-10.1) 7.8 MG/DL (8.5-10.1) 7.6 MG/DL (8.5-10.1) White Blood Count 9.2 K/UL (4.8-10.8) 9.8 K/UL (4.8-10.8) Red Blood Count 3.20 M/UL (4.20-5.40) 3.37 M/UL (4.20-5.40) Hemoglobin 8.5 G/DL (12.0-16.0) 8.7 G/DL (12.0-16.0) Hematocrit 24.8 % (37.0-47.0) 25.8 % (37.0-47.0) Mean Corpuscular Volume 78 FL (80-99) 76 FL (80-99) Mean Corpuscular Hemoglobin 26.5 PG (27.0-31.0) 25.6 PG (27.0-31.0) Mean Corpuscular Hemoglobin Concent 34.2 G/DL (32.0-36.0) 33.5 G/DL (32.0-36.0) Red Cell Distribution Width 19.5 % (11.6-14.8) 19.8 % (11.6-14.8) Platelet Count 263 K/UL (150-450) 255 K/UL (150-450) Mean Platelet Volume 6.1 FL (6.5-10.1) 5.6 FL (6.5-10.1) Neutrophils (%) (Auto) 81.1 % (45.0-75.0) 80.9 % (45.0-75.0) Lymphocytes (%) (Auto) 7.3 % (20.0-45.0) 7.9 % (20.0-45.0) Monocytes (%) (Auto) 8.5 % (1.0-10.0) 8.3 % (1.0-10.0) Eosinophils (%) (Auto) 2.4 % (0.0-3.0) 2.0 % (0.0-3.0) Basophils (%) (Auto) 0.6 % (0.0-2.0) 0.9 % (0.0-2.0) Urine Random Sodium 99 mmol/L (20-110) Phosphorus Level 2.1 MG/DL (2.5-4.9) 2.0 MG/DL (2.5-4.9) Magnesium Level 1.0 MG/DL (1.8-2.4) 1.0 MG/DL (1.8-2.4) Total Bilirubin 0.3 MG/DL (0.2-1.0) 0.3 MG/DL (0.2-1.0) Aspartate Amino Transf (AST/SGOT) 111 U/L (15-37) 100 U/L (15-37) Alanine Aminotransferase (ALT/SGPT) 97 U/L (12-78) 89 U/L (12-78) Alkaline Phosphatase 490 U/L (46-116) 481 U/L (46-116) Pro-B-Type Natriuretic Peptide 881 pg/mL (0-125) 956 pg/mL (0-125) Total Protein 5.0 G/DL (6.4-8.2) 4.8 G/DL (6.4-8.2) Albumin 1.2 G/DL (3.4-5.0) 1.1 G/DL (3.4-5.0) Globulin 3.8 g/dL 3.7 g/dL Albumin/Globulin Ratio 0.3 (1.0-2.7) 0.3 (1.0-2.7) Test 12/01/18 20:00 12/02/18 03:50 12/02/18 18:20 12/02/18 20:30 Sodium Level 124 MMOL/L (136-145) 124 MMOL/L (136-145) 127 MMOL/L (136-145) Potassium Level 3.6 MMOL/L (3.5-5.1) 3.3 MMOL/L (3.5-5.1) 3.5 MMOL/L (3.5-5.1) Chloride Level 89 MMOL/L (98-107) 89 MMOL/L (98-107) 92 MMOL/L (98-107) Carbon Dioxide Level 29 MMOL/L (21-32) 29 MMOL/L (21-32) 31 MMOL/L (21-32) Anion Gap 6 mmol/L (5-15) 6 mmol/L (5-15) 5 mmol/L (5-15) Blood Urea Nitrogen 14 mg/dL (7-18) 14 mg/dL (7-18) 15 mg/dL (7-18) Creatinine 0.4 MG/DL (0.55-1.30) 0.4 MG/DL (0.55-1.30) 0.4 MG/DL (0.55-1.30) Estimat Glomerular Filtration Rate mL/min (>60) mL/min (>60) mL/min (>60) Glucose Level 115 MG/DL (74-106) 118 MG/DL (74-106) 107 MG/DL (74-106) Calcium Level 7.7 MG/DL (8.5-10.1) 7.5 MG/DL (8.5-10.1) 7.9 MG/DL (8.5-10.1) White Blood Count 10.1 K/UL (4.8-10.8) Red Blood Count 2.89 M/UL (4.20-5.40) Hemoglobin 7.8 G/DL (12.0-16.0) Hematocrit 21.7 % (37.0-47.0) Mean Corpuscular Volume 75 FL (80-99) Mean Corpuscular Hemoglobin 26.9 PG (27.0-31.0) Mean Corpuscular Hemoglobin Concent 35.7 G/DL (32.0-36.0) Red Cell Distribution Width 19.0 % (11.6-14.8) Platelet Count 226 K/UL (150-450) Mean Platelet Volume 6.6 FL (6.5-10.1) Neutrophils (%) (Auto) % (45.0-75.0) Lymphocytes (%) (Auto) % (20.0-45.0) Monocytes (%) (Auto) % (1.0-10.0) Eosinophils (%) (Auto) % (0.0-3.0) Basophils (%) (Auto) % (0.0-2.0) Differential Total Cells Counted 100 Neutrophils % (Manual) 74 % (45-75) Lymphocytes % (Manual) 6 % (20-45) Monocytes % (Manual) 7 % (1-10) Eosinophils % (Manual) 1 % (0-3) Basophils % (Manual) 0 % (0-2) Band Neutrophils 12 % (0-8) Platelet Estimate Adequate Platelet Morphology Normal Anisocytosis 1+ Microcytosis 1+ Stool Occult Blood Negative (NEGATIVE) Test 12/03/18 04:00 White Blood Count 11.7 K/UL (4.8-10.8) Red Blood Count 2.90 M/UL (4.20-5.40) Hemoglobin 7.6 G/DL (12.0-16.0) Hematocrit 22.2 % (37.0-47.0) Mean Corpuscular Volume 77 FL (80-99) Mean Corpuscular Hemoglobin 26.2 PG (27.0-31.0) Mean Corpuscular Hemoglobin Concent 34.2 G/DL (32.0-36.0) Red Cell Distribution Width 19.6 % (11.6-14.8) Platelet Count 203 K/UL (150-450) Mean Platelet Volume 6.6 FL (6.5-10.1) Neutrophils (%) (Auto) % (45.0-75.0) Lymphocytes (%) (Auto) % (20.0-45.0) Monocytes (%) (Auto) % (1.0-10.0) Eosinophils (%) (Auto) % (0.0-3.0) Basophils (%) (Auto) % (0.0-2.0) Differential Total Cells Counted 100 Neutrophils % (Manual) 79 % (45-75) Lymphocytes % (Manual) 5 % (20-45) Monocytes % (Manual) 9 % (1-10) Eosinophils % (Manual) 2 % (0-3) Basophils % (Manual) 0 % (0-2) Band Neutrophils 5 % (0-8) Platelet Estimate Adequate Platelet Morphology Normal Anisocytosis 1+ Microcytosis 1+ Sodium Level 125 MMOL/L (136-145) Potassium Level 3.4 MMOL/L (3.5-5.1) Chloride Level 90 MMOL/L (98-107) Carbon Dioxide Level 29 MMOL/L (21-32) Anion Gap 6 mmol/L (5-15) Blood Urea Nitrogen 16 mg/dL (7-18) Creatinine 0.4 MG/DL (0.55-1.30) Estimat Glomerular Filtration Rate mL/min (>60) Glucose Level 96 MG/DL (74-106) Calcium Level 7.8 MG/DL (8.5-10.1) Total Bilirubin 0.4 MG/DL (0.2-1.0) Aspartate Amino Transf (AST/SGOT) 69 U/L (15-37) Alanine Aminotransferase (ALT/SGPT) 69 U/L (12-78) Alkaline Phosphatase 475 U/L (46-116) Total Protein 5.0 G/DL (6.4-8.2) Albumin 1.5 G/DL (3.4-5.0) Globulin 3.5 g/dL Albumin/Globulin Ratio 0.4 (1.0-2.7) Height (Feet): 5 Height (Inches): 8.00 Weight (Pounds): 208 Objective Physical Exam: Vitals: reviewed Gen: NAD HEENT: normocephalic, atraumatic Neck: non-tender, normal alignment ++ vent/trach Respiratory: normal breath sounds bilaterally CV: normal peripheral pulses, rrr Abdomen: normal bowel sounds, soft, nontender +gtube Extremities: 1-2+ edema, normal range of motion Yonathan Hernandez MD Dec 03, 2018 10:25
[2018-12-03 12:00] VITALS: BP 112/55
--- NOTE | 2018-12-03 12:08 | General Progress Note ---
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 SNOMED: 57667521 (6) Anoxic brain damage ICD Codes: G93.1 - Anoxic brain damage, not elsewhere classified SNOMED: 035988957 (7) Colon adenocarcinoma ICD Codes: C18.9 - Malignant neoplasm of colon, unspecified SNOMED: 287912834 (8) Ventilator dependence ICD Codes: Z99.11 - Dependence on respirator [ventilator] status SNOMED: 841497822 (9) Tracheostomy dependence ICD Codes: Z93.0 - Tracheostomy status SNOMED: 421700839 (10) Fever ICD Codes: R50.9 - Fever, unspecified SNOMED: 052019063 (11) Sepsis ICD Codes: A41.9 - Sepsis, unspecified organism SNOMED: 86751076 (12) UTI (urinary tract infection) ICD Codes: N39.0 - Urinary tract infection, site not specified SNOMED: 80401824 (13) Decubitus skin ulcer ICD Codes: L89.90 - Pressure ulcer of unspecified site, unspecified stage SNOMED: 305406152 (14) Protein calorie malnutrition ICD Codes: E46 - Unspecified protein-calorie malnutrition SNOMED: 957646587 (15) Abnormal LFTs ICD Codes: R94.5 - Abnormal results of liver function studies SNOMED: 906971171 (16) MRSA (methicillin resistant staphylococcus aureus) pneumonia ICD Codes: J15.212 - Pneumonia due to Methicillin resistant Staphylococcus aureus SNOMED: 608368616261371 (17) Drug rash ICD Codes: L27.0 - Generalized skin eruption due to drugs and medicaments taken internally SNOMED: 93943166 (18) Bacteremia ICD Codes: R78.81 - Bacteremia SNOMED: 0042492 (19) Gram-negative pneumonia ICD Codes: J15.6 - Pneumonia due to other Gram-negative bacteria SNOMED: 393667759 (20) Line sepsis ICD Codes: T85.79XA - Infection and inflammatory reaction due to other internal prosthetic devices, implants and grafts, initial encounter; A41.9 - Sepsis, unspecified organism SNOMED: 92482899, 242838478 (21) Hyponatremia ICD Codes: E87.1 - Hypo-osmolality and hyponatremia SNOMED: 19529910 Status: unchanged Assessment/Plan: 78-year-old female who is trach dependent who [facility] and found to have UTI and bacteremia. 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 fungal uti vs colonization ID consult appreciate Rec Vancomycin and Meropenem started 11/16 ( Zosyn stopped) , fungal coverage with Diflucan added 11/18. Repeat sputum cultures with RAULTELLA PLANTICOA and PROVIDENCIA STUARTI resistant to most antibiotics Developed morbilliform rash on meropenem, subsequently stopped, rash better. Fever resolved. Started Polymyxin and flagyl 11/21. Added vancomycin and micafungin on 11/24. Day 10 of 10 of abx. May discontinue tomorrow. picc cultures, no growth so far. repeat sputum cultures Organism 1 A.BAUMANII COMPLX - MDR GROWTH: 4+ Organism 2 PSEUDOMONAS AERUGINOSA ACIBCX-MDR PSE AERUGI M.I.C. RX M.I.C. RX --------- --- --------- --- CEFTAZIDIME >=64 R 2 S CEFTRIAXONE >=64 R CEFEPIME >=64 R <=1 S CIPROFLOXACIN >=4 R <=0.25 S GENTAMICIN >=16 R <=1 S LEVOFLOXACIN >=8 R 0.5 S IMIPENEM >=16 R >=16 R TRIMETHOPRIM/SULFA <=20 S AMIKACIN <=2 S PIPERACILLIN/TAZOBACTAM [address] abdomen pelvis shows no acute process Removed PICC and place new line 11/13/18 Echo to eval for vegetation negative Chest x-ray reviewed, no change #hyponatremia, hypotonic. Intravascularly depleted vs SIADH s/p IV NS which has not corrected sodium. Serum Cortisol and TSH WNL, valproic acid stopped. Urea unavailable at the hospital. Free water stopped via GT. s/p Albumin/Furosemide, improved to 131, now back down to 121. Will repeat peripheral sample instead of sample from central line urine osmol, serum urea, urine sodium reviewed nephrology consulted and following. appreicate recs. -BID BMP. -3% NS with albumin for hyponatremia. Has been requiring one every day. # Transaminitis - worsening, meds vs passive congestion - trend lft's - GI consult, appreciate recs - ab us: reviewed - hep panel negative #Elevated troponin secondary to sepsis versus ACS Cardiology consult, appreciate recs Medications per cardiology #Microcytic anemia- mixed anemia of chronic inflammation and iron deficiency. Start ferrous sulfate TID , transfused 1 uprbc 11/27. hemoglobin stable #Hypertension- improved Continue current medications, hydralazine as needed hypertension #Vent dependent Pulmonary consult, appreciate recs Vent management per pulmonary #Hypokalemia, hypophosphatemia, hypomagnesemia Replace, continue to monitor # Chronic tongue wound Supportive care On examination the patient has a sharp lower incisor present that is likely the culprit for the tongue laceration when she was intubated in the prior hospitalization at [facility] OMFS consultation Dr. Benavides completed ( no note left ) and I spoke with him over the phone after the visit. He does not recommend any surgery. ONLY bite block MOLT if available to decompress the tongue and get the remainder teeth out of the tongue way. Keep moisture in the lips and tongue. ENT consult difficult to obtain- pending # History of mood disorder Seen by psychiatry and on Depakote. Level was checked # Seizure history - Discussed with Dr. Eric who knew the patient from [facility] and confirmed that she did have seizure activity and was on multiple AED regimen. - Will continue Depakote ( 28 level ) and (Phenytoin 4.3 ) - no active seizure activity at this time. Keep current dose. - Both Dr. Eric and Mariana not available to come to [facility] for consult and not acute need at this time. #Diabetes Mellitus, controlled - glucose noted in the 90-110's - Decreased Levemir to 4 units q 12 hours # Disposition - SNF when cleared by ID. I spent 35 minutes on this encounter, >50% of which spent on counseling/ coordination of care. Subjective Date patient seen: Dec 03, 2018 Time patient seen: 09:00 ROS Limited/Unobtainable: Yes Allergies: Coded Allergies: Crayfish (Unverified Allergy, Unknown, 11/11/18) Uncoded Allergies: Crawfish (Allergy, Unknown, 11/09/18) Subjective obtunded, unable to provide input Objective Last 24 Hour Vital Signs Date Time Temp Pulse Resp B/P (MAP) Pulse Ox O2 Delivery O2 Flow Rate FiO2 12/03/18 10:50 70 23 30 12/03/18 09:28 71 23 30 12/03/18 08:46 65 105/58 12/03/18 08:00 97.0 65 19 105/58 (74) 100 12/03/18 08:00 Mechanical Ventilator 12/03/18 08:00 30 12/03/18 07:45 66 12/03/18 06:38 67 23 30 12/03/18 05:44 63 108/55 12/03/18 04:45 65 23 30 12/03/18 04:00 Mechanical Ventilator 12/03/18 04:00 96.5 66 20 109/59 (76) 100 12/03/18 04:00 30 12/03/18 03:35 65 12/03/18 03:26 74 24 30 12/03/18 00:50 65 26 30 12/03/18 00:00 Mechanical Ventilator 12/03/18 00:00 96.0 65 23 94/50 (65) 100 12/02/18 23:57 62 12/02/18 22:59 69 23 30 12/02/18 21:43 71 110/57 12/02/18 20:52 77 24 30 12/02/18 20:00 Mechanical Ventilator 12/02/18 20:00 30 12/02/18 20:00 96.1 97 18 124/71 (88) 100 12/02/18 20:00 74 12/02/18 19:15 72 22 30 12/02/18 17:15 76 26 30 12/02/18 16:00 Mechanical Ventilator 12/02/18 16:00 98.5 73 17 134/68 (90) 100 12/02/18 16:00 30 12/02/18 15:58 67 12/02/18 14:55 71 22 30 12/02/18 14:18 68 131/56 12/02/18 13:05 68 24 30 Intake and Output 12/02/18 12/03/18 18:59 06:59 Intake Total 1840.000 ml 670 ml Output Total 1200 ml 700 ml Balance 640.000 ml -30 ml Intake Free Water 150 ml IV Total 1225.000 ml Tube Feeding 585 ml 520 ml Other 30 ml Output Urine Total 1200 ml 700 ml # Bowel Movements 2 3 Laboratory Tests 12/02/18 18:20: Stool Occult Blood Negative 12/02/18 20:30: Sodium Level 127L, Potassium Level 3.5, Chloride Level 92L, Carbon Dioxide Level 31, Anion Gap 5, Blood Urea Nitrogen 15, Creatinine 0.4L, Estimat Glomerular Filtration Rate , Glucose Level 107H, Calcium Level 7.9L 12/03/18 04:00: Sodium Level 125L, Potassium Level 3.4L, Chloride Level 90L, Carbon Dioxide Level 29, Anion Gap 6, Blood Urea Nitrogen 16, Creatinine 0.4L, Estimat Glomerular Filtration Rate , Glucose Level 96, Calcium Level 7.8L, White Blood Count 11.7H, Red Blood Count 2.90L, Hemoglobin 7.6L, Hematocrit 22.2L, Mean Corpuscular Volume 77L, Mean Corpuscular Hemoglobin 26.2L, Mean Corpuscular Hemoglobin Concent 34.2, Red Cell Distribution Width 19.6H, Platelet Count 203, Mean Platelet Volume 6.6, Neutrophils (%) (Auto) , Lymphocytes (%) (Auto) , Monocytes (%) (Auto) , Eosinophils (%) (Auto) , Basophils (%) (Auto) , Differential Total Cells Counted 100, Neutrophils % (Manual) 79H, Lymphocytes % (Manual) 5L, Monocytes % (Manual) 9, Eosinophils % (Manual) 2, Basophils % ( Manual) 0, Band Neutrophils 5, Platelet Estimate Adequate, Platelet Morphology Normal, Anisocytosis 1+, Microcytosis 1+, Total Bilirubin 0.4, Aspartate Amino Transf (AST/SGOT) 69H, Alanine Aminotransferase (ALT/SGPT) 69, Alkaline Phosphatase 475H, Total Protein 5.0L, Albumin 1.5L, Globulin 3.5, Albumin/ Globulin Ratio 0.4L Height (Feet): 5 Height (Inches): 8.00 Weight (Pounds): 208 General Appearance: other - obtunded, appears comfortable on vent EENT: other - protruding, enlarged tongue. Eyes closed. Neck: supple, other - trach Cardiovascular: normal rate, regular rhythm, no gallop/murmur Respiratory/Chest: lungs clear, normal breath sounds, no respiratory distress Abdomen: normal bowel sounds, non tender, soft Extremities: swelling Edema: 3+ Arm (L), 3+ Arm (R), 3+ Leg (L), 3+ Leg (R), 3+ Pedal (L), 3+ Pedal ( R), 3+ Generalized Edema: severe edema Neurologic: unresponsive Laron Healy M.D. Dec 03, 2018 12:08
--- NOTE | 2018-12-03 13:54 | Surgery Progress Note ---
Surgery Progress Note Subjective Symptoms: other Objective Last 24 Hour Vital Signs Date Time Temp Pulse Resp B/P (MAP) Pulse Ox O2 Delivery O2 Flow Rate FiO2 12/03/18 12:57 71 26 30 12/03/18 12:00 96.5 71 26 112/55 (74) 100 12/03/18 12:00 30 12/03/18 12:00 Mechanical Ventilator 12/03/18 11:47 71 12/03/18 10:50 70 23 30 12/03/18 09:28 71 23 30 12/03/18 08:46 65 105/58 12/03/18 08:00 97.0 65 19 105/58 (74) 100 12/03/18 08:00 Mechanical Ventilator 12/03/18 08:00 30 12/03/18 07:45 66 12/03/18 06:38 67 23 30 12/03/18 05:44 63 108/55 12/03/18 04:45 65 23 30 12/03/18 04:00 Mechanical Ventilator 12/03/18 04:00 96.5 66 20 109/59 (76) 100 12/03/18 04:00 30 12/03/18 03:35 65 12/03/18 03:26 74 24 30 12/03/18 00:50 65 26 30 12/03/18 00:00 Mechanical Ventilator 12/03/18 00:00 96.0 65 23 94/50 (65) 100 12/02/18 23:57 62 12/02/18 22:59 69 23 30 12/02/18 21:43 71 110/57 12/02/18 20:52 77 24 30 12/02/18 20:00 Mechanical Ventilator 12/02/18 20:00 30 12/02/18 20:00 96.1 97 18 124/71 (88) 100 12/02/18 20:00 74 12/02/18 19:15 72 22 30 12/02/18 17:15 76 26 30 12/02/18 16:00 Mechanical Ventilator 12/02/18 16:00 98.5 73 17 134/68 (90) 100 12/02/18 16:00 30 12/02/18 15:58 67 12/02/18 14:55 71 22 30 12/02/18 14:18 68 131/56 I&O Intake and Output 12/02/18 12/03/18 18:59 06:59 Intake Total 1840.000 ml 670 ml Output Total 1200 ml 700 ml Balance 640.000 ml -30 ml Intake Free Water 150 ml IV Total 1225.000 ml Tube Feeding 585 ml 520 ml Other 30 ml Output Urine Total 1200 ml 700 ml # Bowel Movements 2 3 Dressing: saturated Wound: clean Cardiovascular: RSR Abdomen: soft, present bowel sounds Extremities: no cyanosis, other Laboratory Tests Test 12/02/18 18:20 12/02/18 20:30 12/03/18 04:00 Stool Occult Blood Negative (NEGATIVE) Sodium Level 127 MMOL/L (136-145) L 125 MMOL/L (136-145) L Potassium Level 3.5 MMOL/L (3.5-5.1) 3.4 MMOL/L (3.5-5.1) L Chloride Level 92 MMOL/L (98-107) L 90 MMOL/L (98-107) L Carbon Dioxide Level 31 MMOL/L (21-32) 29 MMOL/L (21-32) Anion Gap 5 mmol/L (5-15) 6 mmol/L (5-15) Blood Urea Nitrogen 15 mg/dL (7-18) 16 mg/dL (7-18) Creatinine 0.4 MG/DL (0.55-1.30) L 0.4 MG/DL (0.55-1.30) L Estimat Glomerular Filtration Rate mL/min (>60) mL/min (>60) Glucose Level 107 MG/DL (74-106) H 96 MG/DL (74-106) Calcium Level 7.9 MG/DL (8.5-10.1) L 7.8 MG/DL (8.5-10.1) L White Blood Count 11.7 K/UL (4.8-10.8) H Red Blood Count 2.90 M/UL (4.20-5.40) L Hemoglobin 7.6 G/DL (12.0-16.0) L Hematocrit 22.2 % (37.0-47.0) L Mean Corpuscular Volume 77 FL (80-99) L Mean Corpuscular Hemoglobin 26.2 PG (27.0-31.0) L Mean Corpuscular Hemoglobin Concent 34.2 G/DL (32.0-36.0) Red Cell Distribution Width 19.6 % (11.6-14.8) H Platelet Count 203 K/UL (150-450) Mean Platelet Volume 6.6 FL (6.5-10.1) Neutrophils (%) (Auto) % (45.0-75.0) Lymphocytes (%) (Auto) % (20.0-45.0) Monocytes (%) (Auto) % (1.0-10.0) Eosinophils (%) (Auto) % (0.0-3.0) Basophils (%) (Auto) % (0.0-2.0) Differential Total Cells Counted 100 Neutrophils % (Manual) 79 % (45-75) H Lymphocytes % (Manual) 5 % (20-45) L Monocytes % (Manual) 9 % (1-10) Eosinophils % (Manual) 2 % (0-3) Basophils % (Manual) 0 % (0-2) Band Neutrophils 5 % (0-8) Platelet Estimate Adequate Platelet Morphology Normal Anisocytosis 1+ Microcytosis 1+ Total Bilirubin 0.4 MG/DL (0.2-1.0) Aspartate Amino Transf (AST/SGOT) 69 U/L (15-37) H Alanine Aminotransferase (ALT/SGPT) 69 U/L (12-78) Alkaline Phosphatase 475 U/L (46-116) H Total Protein 5.0 G/DL (6.4-8.2) L Albumin 1.5 G/DL (3.4-5.0) L Globulin 3.5 g/dL Albumin/Globulin Ratio 0.4 (1.0-2.7) L Plan Problems: (1) Fever (2) Tongue abnormality Assessment & Plan: patients jaw clenched closed and tongue has been stuck for some time. tongue split from middle teeth and now in two. edema and unable to reduce keep tongue moist. apply lube jelly prn dryness. will monitor do not recommend surgical intervention for this current medical condition spoke with family. ENT plan to see. OMFS no intervention (3) Tracheostomy dependence (4) Sepsis Assessment & Plan: gb no stones 6mm polyp no acute surgical intervention planned trend labs improving labs improved DAILY ESTIMATED NEEDS: Needs based on Critical care, sepsis, wound 60kg adj 22-30 kcals/kg [id number] total kcals 1.25-2 g protein/kg 75-120 g total protein Fluid per MD, on lasix NUTRITION DIAGNOSIS: * Swallowing difficulty r/t respiratory status as evidenced by pt is vent dep via trach and PEG dep. * Increased kcal and pro needs r/t wound healing and sepsis as evidenced by pt w/ sacral and R heel wounds, febrile (Tmax 101.5). CURRENT TF: Jevity 1.2 @50 ml/hr x16 hrs ENTERAL NUTRITION RECOMMENDATIONS: Glucerna 1.2 @65ml/hr x18 hrs + Prosource x1 daily to provide 1170ml, 1404 kcal, 70g pro + 11g pro, 942 free H2O - REC TF CHANGE AND INCREASE TO BETTER MEET EST NEEDS - TF TO BE HELD FOR ONE HR BEFORE AND AFTER DILANTIN MEDS - START @20ML/HR, ADVANCE TOLERATED 15ML/HR Q4-6 HRS TO GOAL - FLUSH PER MD, HOB OVRE 30 DEGREES ADDITIONAL RECOMMENDATIONS: 1) CALIBRATED BED SCALE W/ ADDED P200 MATTRESS + PUMP 2) ON LASIX, MONITOR LYTES AND HYDRATION STATUS DAILY 3) TF TO RUN A MAX OF 18 HRS/DAY W/ DILANTIN TID PER PHARMACY 4) REC TF CHANGE TO CARB CONTROL FORMULA 5) WOUND CARE: ADD CHAYITO BID + VIT C 250MG DAILY (5) Fever Assessment & Plan: CT A/P with findings Impression: No definite acute process Diverticulosis. No evidence of diverticulitis Extensive edema of the subcutaneous fat. 2 cm focal fluid collection/edema seen within the incision Moderate amount retained dense stool. Correlate with any clinical history of constipation Hiatal hernia. Gastrostomy Left renal parapelvic cysts Apparent prior hysterectomy (6) Decubitus skin ulcer Assessment & Plan: Pt presented on admission with full thickness sacral pressure injury.Base of wound is 20% necrotic , 80% slough. borders are macerated . Mild odor noted. (L)8.4cm x (W) 6.5cm. Periwound skin tone is darker without erythema,induration or elevation in skin temp. Both heels are non -blanchable and both are fluctuant when palpated. Tx.Plan: Clean wound with saline. Apply Therahoney. Aply Moisture Barrier paste periwound. Cover with Optifoam drsg. Change every 3 days and prn. Apply Cavilon Skin BArrier to both heels. Cover each heel with Optifoam drsg. Change every 7 days and prn. APM/DEIRDRE mattress overlay. Reposition at least every 2hours or as tolerated. Off-load heels with pillow. will follow with recs thank you Preet Hylton Dec 03, 2018 13:54
--- NOTE | 2018-12-03 13:59 | Nephrology Progress Note ---
Assessment/Plan Problem List: (1) Hyponatremia (2) Ventilator dependence (3) Diabetes (4) Protein calorie malnutrition (5) Hypokalemia Plan Restrict free water Discussed with pharmacy to give Abxs in NS Discussed with RN follow BMP would need 3% only if S Na drops lower ( below 120) Replete K Subjective Subjective In NAD Objective Objective Last 24 Hour Vital Signs Date Time Temp Pulse Resp B/P (MAP) Pulse Ox O2 Delivery O2 Flow Rate FiO2 12/03/18 12:57 71 26 30 12/03/18 12:00 96.5 71 26 112/55 (74) 100 12/03/18 12:00 30 12/03/18 12:00 Mechanical Ventilator 12/03/18 11:47 71 12/03/18 10:50 70 23 30 12/03/18 09:28 71 23 30 12/03/18 08:46 65 105/58 12/03/18 08:00 97.0 65 19 105/58 (74) 100 12/03/18 08:00 Mechanical Ventilator 12/03/18 08:00 30 12/03/18 07:45 66 12/03/18 06:38 67 23 30 12/03/18 05:44 63 108/55 12/03/18 04:45 65 23 30 12/03/18 04:00 Mechanical Ventilator 12/03/18 04:00 96.5 66 20 109/59 (76) 100 12/03/18 04:00 30 12/03/18 03:35 65 12/03/18 03:26 74 24 30 12/03/18 00:50 65 26 30 12/03/18 00:00 Mechanical Ventilator 12/03/18 00:00 96.0 65 23 94/50 (65) 100 12/02/18 23:57 62 12/02/18 22:59 69 23 30 12/02/18 21:43 71 110/57 12/02/18 20:52 77 24 30 12/02/18 20:00 Mechanical Ventilator 12/02/18 20:00 30 12/02/18 20:00 96.1 97 18 124/71 (88) 100 12/02/18 20:00 74 12/02/18 19:15 72 22 30 12/02/18 17:15 76 26 30 12/02/18 16:00 Mechanical Ventilator 12/02/18 16:00 98.5 73 17 134/68 (90) 100 12/02/18 16:00 30 12/02/18 15:58 67 12/02/18 14:55 71 22 30 12/02/18 14:18 68 131/56 Intake and Output 12/02/18 12/03/18 18:59 06:59 Intake Total 1840.000 ml 670 ml Output Total 1200 ml 700 ml Balance 640.000 ml -30 ml Intake Free Water 150 ml IV Total 1225.000 ml Tube Feeding 585 ml 520 ml Other 30 ml Output Urine Total 1200 ml 700 ml # Bowel Movements 2 3 Laboratory Tests 12/02/18 18:20: Stool Occult Blood Negative 12/02/18 20:30: Sodium Level 127L, Potassium Level 3.5, Chloride Level 92L, Carbon Dioxide Level 31, Anion Gap 5, Blood Urea Nitrogen 15, Creatinine 0.4L, Estimat Glomerular Filtration Rate , Glucose Level 107H, Calcium Level 7.9L 12/03/18 04:00: Sodium Level 125L, Potassium Level 3.4L, Chloride Level 90L, Carbon Dioxide Level 29, Anion Gap 6, Blood Urea Nitrogen 16, Creatinine 0.4L, Estimat Glomerular Filtration Rate , Glucose Level 96, Calcium Level 7.8L, White Blood Count 11.7H, Red Blood Count 2.90L, Hemoglobin 7.6L, Hematocrit 22.2L, Mean Corpuscular Volume 77L, Mean Corpuscular Hemoglobin 26.2L, Mean Corpuscular Hemoglobin Concent 34.2, Red Cell Distribution Width 19.6H, Platelet Count 203, Mean Platelet Volume 6.6, Neutrophils (%) (Auto) , Lymphocytes (%) (Auto) , Monocytes (%) (Auto) , Eosinophils (%) (Auto) , Basophils (%) (Auto) , Differential Total Cells Counted 100, Neutrophils % (Manual) 79H, Lymphocytes % (Manual) 5L, Monocytes % (Manual) 9, Eosinophils % (Manual) 2, Basophils % ( Manual) 0, Band Neutrophils 5, Platelet Estimate Adequate, Platelet Morphology Normal, Anisocytosis 1+, Microcytosis 1+, Total Bilirubin 0.4, Aspartate Amino Transf (AST/SGOT) 69H, Alanine Aminotransferase (ALT/SGPT) 69, Alkaline Phosphatase 475H, Total Protein 5.0L, Albumin 1.5L, Globulin 3.5, Albumin/ Globulin Ratio 0.4L Height (Feet): 5 Height (Inches): 8.00 Weight (Pounds): 208 Cardiovascular: normal rate Respiratory/Chest: rhonchi - bilaterally Extremities: moderate edema Satnam Mckeon MD Dec 03, 2018 13:59
--- NOTE | 2018-12-03 14:34 | Pulmonology Progress Note ---
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 (18) Anemia Assessment/Plan Continue ventilatory support/settings reviewed Titrate down FiO2 to keep SaO2 > 90% Optimize pulmonary hygiene/mobilize as tolerated RTC and PRN HHN's Abx per ID, F/U Cx's F/U cards recs Monitor volumes and renal function PRN lasix DVT Px: LMWH ENT eval pending FC, continue to discuss GOC Wound care Subjective Allergies: Coded Allergies: Crayfish (Unverified Allergy, Unknown, 11/11/18) Uncoded Allergies: Crawfish (Allergy, Unknown, 11/09/18) Subjective AFVSS stable on vent no sig secretions no distress Objective Vital Signs Noted General Appearance: no acute distress, cachetic, other - non-verbal HEENT: normocephalic, status post trach, other - macroglossia, facial edema Respiratory/Chest: crackles/rales Cardiovascular: normal peripheral pulses, normal rate, regular rhythm Abdomen: normal bowel sounds, soft, non tender, no organomegaly, non distended , other - GT Extremities: no cyanosis, no clubbing, other - 1-2+ LEONORA Laboratory Tests 11/28/18 15:45: Urine Osmolality 291L, Urine Random Sodium 29 11/28/18 18:25: Sodium Level 125L, Potassium Level 3.3L, Chloride Level 90L, Carbon Dioxide Level 30, Anion Gap 5, Blood Urea Nitrogen 15, Creatinine 0.4L, Estimat Glomerular Filtration Rate , Glucose Level 120H, Osmolality 263L, Calcium Level 7.8L, Thyroid Stimulating Hormone (TSH) 2.816 11/29/18 04:00: Sodium Level 128L, Potassium Level 3.2L, Chloride Level 91L, Carbon Dioxide Level 32, Anion Gap 5, Blood Urea Nitrogen 15, Creatinine 0.4L, Estimat Glomerular Filtration Rate , Glucose Level 108H, Calcium Level 7.7L, White Blood Count 10.8, Red Blood Count 3.33L, Hemoglobin 8.6L, Hematocrit 25.8L, Mean Corpuscular Volume 78L, Mean Corpuscular Hemoglobin 26.0L, Mean Corpuscular Hemoglobin Concent 33.4, Red Cell Distribution Width 20.2H, Platelet Count 291, Mean Platelet Volume 5.5L, Neutrophils (%) (Auto) 77.0H, Lymphocytes (%) (Auto) 10.3L, Monocytes (%) (Auto) 6.7, Eosinophils (%) (Auto) 5.1H, Basophils (%) (Auto) 0.9, Total Bilirubin 0.3, Aspartate Amino Transf (AST /SGOT) 158H, Alanine Aminotransferase (ALT/SGPT) 105H, Alkaline Phosphatase 507H , Total Protein 4.9L, Albumin 0.9L, Globulin 4.0, Albumin/Globulin Ratio 0.2L, Cortisol AM Sample 15.5 Current Medications Medications (Trade) Dose Ordered Sig/Lupe Route PRN Reason Start Time Stop Time Status Last Admin Dose Admin Acetaminophen (Tylenol) 650 mg Q4H PRN GT Mild Pain/Temp > 100.5 11/09/18 05:00 12/09/18 04:59 11/24/18 21:50 Amlodipine Besylate (Norvasc) 10 mg DAILY GT 11/09/18 09:00 12/09/18 08:59 11/29/18 09:04 Bisacodyl (Dulcolax) 10 mg DAILY PRN RECTAL Constipation 11/09/18 05:00 12/09/18 04:59 Calcium Carbonate (Tums) 500 mg EVERY 8 HOURS GT 11/09/18 14:00 12/09/18 08:59 11/29/18 05:06 Chlorhexidine Gluconate (Corazon-Hex 2%) 1 applic DAILY@1999 TOPIC 11/12/18 20:00 12/12/18 19:59 11/28/18 20:05 Dextrose (Dextrose 50%) 25 ml Q30M PRN IV Hypoglycemia 11/09/18 04:45 12/09/18 04:44 Dextrose (Dextrose 50%) 50 ml Q30M PRN IV Hypoglycemia 11/09/18 04:45 12/09/18 04:44 11/09/18 09:09 Enoxaparin Sodium (Lovenox) 40 mg DAILY SUBQ 11/09/18 09:00 12/09/18 08:59 11/29/18 09:08 Famotidine (Pepcid) 20 mg EVERY 12 HOURS GT 11/09/18 21:00 12/09/18 08:59 11/29/18 09:04 Hydralazine HCl (Apresoline) 5 mg EVERY 8 HOURS GT 11/09/18 06:00 12/09/18 05:59 11/28/18 14:08 Insulin Aspart (NovoLOG) Q6HR SUBQ 11/09/18 06:00 12/09/18 05:59 11/29/18 05:07 Insulin Detemir (Levemir) 4 units EVERY 12 HOURS SUBQ 11/16/18 21:00 12/09/18 08:59 11/29/18 09:18 Labetalol HCl (Normodyne) 200 mg Q8HR GT 11/09/18 06:00 12/09/18 05:59 11/29/18 05:06 Lactulose (Cephulac) 10 gm THREE TIMES A DAY GT 11/27/18 18:00 12/27/18 12:59 11/29/18 09:22 Levetiracetam (Keppra) 1,500 mg Q12HR GT 11/09/18 09:00 12/09/18 08:59 11/29/18 09:05 Magnesium Hydroxide (Mom) 30 ml DAILY PRN GT Constipation 11/09/18 05:00 12/09/18 04:59 Magnesium Oxide (Mag-Ox 400mg) 400 mg EVERY 8 HOURS GT 11/09/18 14:00 12/09/18 08:59 11/29/18 05:06 Metronidazole (Flagyl) 500 mg EVERY 8 HOURS ORAL 11/28/18 14:00 12/05/18 13:59 11/29/18 05:06 Micafungin Sodium 100 mg/Sodium Chloride 100 ml @ 100 mls/hr Q24H IVPB 11/24/18 14:00 12/01/18 13:59 11/28/18 14:08 Ondansetron HCl (Zofran) 4 mg Q6H PRN GT Nausea & Vomiting 11/09/18 05:00 12/09/18 04:59 Phenobarbital (PHENobarbital) 60 mg BID GT 11/09/18 09:00 12/09/18 08:59 11/29/18 09:07 Phenytoin (Dilantin) 100 mg Q8HR GT 11/09/18 06:00 12/09/18 05:59 11/29/18 06:01 Polyethylene Glycol (Miralax) 17 gm DAILYPRN PRN GT Constipation 11/14/18 10:30 12/12/18 10:29 Polymyxin B Sulfate 560262 units/Dextrose 550 ml @ 550 mls/hr EVERY 12 HOURS IV 11/26/18 21:00 12/03/18 20:59 11/29/18 09:08 Sennosides (Senokot) 8.6 mg EVERY 12 HOURS GT 11/09/18 21:00 12/09/18 08:59 11/29/18 09:03 Sodium Chloride 1,000 ml @ 100 mls/hr Q10H IV 11/28/18 17:25 12/28/18 17:24 11/29/18 03:01 Vancomycin HCl (Vanco rx to dose) 1 ea DAILY PRN MISC Per rx protocol 11/28/18 11:45 12/28/18 11:44 Vancomycin HCl 1 gm/Dextrose 275 ml @ 183.708 mls/hr Q12HR@0400,1600 IVPB 11/28/18 16:00 12/03/18 15:59 11/29/18 03:03 Subjective ROS Limited/Unobtainable: No Allergies: Coded Allergies: Crayfish (Unverified Allergy, Unknown, 11/11/18) Uncoded Allergies: Crawfish (Allergy, Unknown, 11/09/18) Objective Last 24 Hour Vital Signs Date Time Temp Pulse Resp B/P (MAP) Pulse Ox O2 Delivery O2 Flow Rate FiO2 12/03/18 14:32 71 112/55 12/03/18 12:57 71 26 30 12/03/18 12:00 96.5 71 26 112/55 (74) 100 12/03/18 12:00 30 12/03/18 12:00 Mechanical Ventilator 12/03/18 11:47 71 12/03/18 10:50 70 23 30 12/03/18 09:28 71 23 30 12/03/18 08:46 65 105/58 12/03/18 08:00 97.0 65 19 105/58 (74) 100 12/03/18 08:00 Mechanical Ventilator 12/03/18 08:00 30 12/03/18 07:45 66 12/03/18 06:38 67 23 30 12/03/18 05:44 63 108/55 12/03/18 04:45 65 23 30 12/03/18 04:00 Mechanical Ventilator 12/03/18 04:00 96.5 66 20 109/59 (76) 100 12/03/18 04:00 30 12/03/18 03:35 65 12/03/18 03:26 74 24 30 12/03/18 00:50 65 26 30 12/03/18 00:00 Mechanical Ventilator 12/03/18 00:00 96.0 65 23 94/50 (65) 100 12/02/18 23:57 62 12/02/18 22:59 69 23 30 12/02/18 21:43 71 110/57 12/02/18 20:52 77 24 30 12/02/18 20:00 Mechanical Ventilator 12/02/18 20:00 30 12/02/18 20:00 96.1 97 18 124/71 (88) 100 12/02/18 20:00 74 12/02/18 19:15 72 22 30 12/02/18 17:15 76 26 30 12/02/18 16:00 Mechanical Ventilator 12/02/18 16:00 98.5 73 17 134/68 (90) 100 12/02/18 16:00 30 12/02/18 15:58 67 12/02/18 14:55 71 22 30 Intake and Output 12/02/18 12/03/18 18:59 06:59 Intake Total 1840.000 ml 670 ml Output Total 1200 ml 700 ml Balance 640.000 ml -30 ml Intake Free Water 150 ml IV Total 1225.000 ml Tube Feeding 585 ml 520 ml Other 30 ml Output Urine Total 1200 ml 700 ml # Bowel Movements 2 3 Laboratory Tests 12/02/18 18:20: Stool Occult Blood Negative 12/02/18 20:30: Sodium Level 127L, Potassium Level 3.5, Chloride Level 92L, Carbon Dioxide Level 31, Anion Gap 5, Blood Urea Nitrogen 15, Creatinine 0.4L, Estimat Glomerular Filtration Rate , Glucose Level 107H, Calcium Level 7.9L 9/15/19 04:00: Sodium Level 125L, Potassium Level 3.4L, Chloride Level 90L, Carbon Dioxide Level 29, Anion Gap 6, Blood Urea Nitrogen 16, Creatinine 0.4L, Estimat Glomerular Filtration Rate , Glucose Level 96, Calcium Level 7.8L, White Blood Count 11.7H, Red Blood Count 2.90L, Hemoglobin 7.6L, Hematocrit 22.2L, Mean Corpuscular Volume 77L, Mean Corpuscular Hemoglobin 26.2L, Mean Corpuscular Hemoglobin Concent 34.2, Red Cell Distribution Width 19.6H, Platelet Count 203, Mean Platelet Volume 6.6, Neutrophils (%) (Auto) , Lymphocytes (%) (Auto) , Monocytes (%) (Auto) , Eosinophils (%) (Auto) , Basophils (%) (Auto) , Differential Total Cells Counted 100, Neutrophils % (Manual) 79H, Lymphocytes % (Manual) 5L, Monocytes % (Manual) 9, Eosinophils % (Manual) 2, Basophils % ( Manual) 0, Band Neutrophils 5, Platelet Estimate Adequate, Platelet Morphology Normal, Anisocytosis 1+, Microcytosis 1+, Total Bilirubin 0.4, Aspartate Amino Transf (AST/SGOT) 69H, Alanine Aminotransferase (ALT/SGPT) 69, Alkaline Phosphatase 475H, Total Protein 5.0L, Albumin 1.5L, Globulin 3.5, Albumin/ Globulin Ratio 0.4L Current Medications Medications (Trade) Dose Ordered Sig/Lupe Route PRN Reason Start Time Stop Time Status Last Admin Dose Admin Acetaminophen (Tylenol) 650 mg Q4H PRN GT Mild Pain/Temp > 100.5 11/09/18 05:00 12/09/18 04:59 11/24/18 21:50 Amlodipine Besylate (Norvasc) 10 mg DAILY GT 11/09/18 09:00 12/09/18 08:59 12/02/18 08:49 Bisacodyl (Dulcolax) 10 mg DAILY PRN RECTAL Constipation 11/09/18 05:00 12/09/18 04:59 Chlorhexidine Gluconate (Corazon-Hex 2%) 1 applic DAILY@1999 TOPIC 11/12/18 20:00 12/12/18 19:59 12/02/18 20:12 Dextrose (Dextrose 50%) 25 ml Q30M PRN IV Hypoglycemia 11/09/18 04:45 12/09/18 04:44 Dextrose (Dextrose 50%) 50 ml Q30M PRN IV Hypoglycemia 11/09/18 04:45 12/09/18 04:44 11/09/18 09:09 Enoxaparin Sodium (Lovenox) 40 mg DAILY SUBQ 11/09/18 09:00 12/09/18 08:59 12/03/18 09:06 Famotidine (Pepcid) 20 mg EVERY 12 HOURS GT 11/09/18 21:00 12/09/18 08:59 12/03/18 08:41 Insulin Aspart (NovoLOG) Q6HR SUBQ 11/09/18 06:00 12/09/18 05:59 12/03/18 12:35 Insulin Detemir (Levemir) 4 units EVERY 12 HOURS SUBQ 11/16/18 21:00 12/09/18 08:59 12/03/18 09:05 Labetalol HCl (Normodyne) 200 mg Q8HR GT 11/09/18 06:00 12/09/18 05:59 12/03/18 14:32 Lactulose (Cephulac) 10 gm THREE TIMES A DAY GT 11/27/18 18:00 12/27/18 12:59 12/03/18 12:33 Levetiracetam (Keppra) 1,500 mg Q12HR GT 11/09/18 09:00 12/09/18 08:59 12/03/18 08:41 Magnesium Hydroxide (Mom) 30 ml DAILY PRN GT Constipation 11/09/18 05:00 12/09/18 04:59 Metronidazole (Flagyl) 500 mg EVERY 8 HOURS GT 11/30/18 14:00 12/03/18 23:59 12/03/18 14:32 Micafungin Sodium 100 mg/Sodium Chloride 100 ml @ 100 mls/hr Q24H IVPB 11/29/18 14:00 12/03/18 23:59 12/03/18 13:24 Ondansetron HCl (Zofran) 4 mg Q6H PRN GT Nausea & Vomiting 11/09/18 05:00 12/09/18 04:59 Phenobarbital (PHENobarbital) 60 mg BID GT 11/09/18 09:00 12/09/18 08:59 12/03/18 08:41 Phenytoin (Dilantin) 100 mg Q8HR GT 11/09/18 06:00 12/09/18 05:59 12/03/18 14:33 Polyethylene Glycol (Miralax) 17 gm DAILYPRN PRN GT Constipation 11/14/18 10:30 12/12/18 10:29 Polymyxin B Sulfate 787342 units/Dextrose 550 ml @ 550 mls/hr EVERY 12 HOURS IV 11/26/18 21:00 12/03/18 20:59 12/03/18 09:04 Sennosides (Senokot) 8.6 mg EVERY 12 HOURS GT 11/09/18 21:00 12/09/18 08:59 12/03/18 08:41 Sodium Chloride 250 ml @ 30 mls/hr ONCE ONCE IV 12/03/18 09:00 12/03/18 17:19 12/03/18 10:53 Vancomycin HCl (Vanco rx to dose) 1 ea DAILY PRN MISC Per rx protocol 11/28/18 11:45 12/28/18 11:44 Vancomycin HCl 1 gm/Sodium Chloride 275 ml @ 183.708 mls/hr Q12HR@0400,1600 IVPB 12/03/18 16:00 12/03/18 23:59 Eloy Vega MD Dec 03, 2018 14:34
[2018-12-03 16:00] VITALS: BP 115/58
[2018-12-03] MEDS ORDERED: Vancomycin 1 GM in NS 275 ML IVPB SCH (16:00)
--- NOTE | 2018-12-03 19:15 | NUR ---
HAND-OFF: Report given to CHARLEE PSOEY.
--- NOTE | 2018-12-03 19:16 | NUR ---
NURSE NOTES: Received patient from Alessia RN. Patient is obtunded. Receiving oxygen via trach to vent: Shiley 8 AC 14, TV 375, FiO2 30%, PEEP 5. G-tube is patent and receiving 1.2 at 65cc/hr, no residuals upon checking. IV site is right upper arm PICC receiving 3% Sodium Chloride at 30cc/hr. Bed is locked, placed in lowest position, side rails up x3, call light within reach, bed alarm on. Will continue to monitor.
[2018-12-03 20:00] VITALS: BP 115/69
[2018-12-03] MEDS: Dyna-Hex 2% Top Sol 2oz TOPIC SCH (20:18)
[2018-12-04] VITALS: BP 105/59
[2018-12-04 04:00] VITALS: BP 113/55
[2018-12-04 04:46] LABS: HEMATOCRIT 22.7 % (37.0-47.0); HEMOGLOBIN 7.6 G/DL (12.0-16.0); MEAN CORPUSCULAR VOLUME 79 FL (80-99); PLATELET COUNT 198 K/UL (150-450); RED BLOOD COUNT 2.87 M/UL (4.20-5.40); RED CELL DISTRIBUTION WIDTH 18.3 % (11.6-14.8); WHITE BLOOD COUNT 10.8 K/UL (4.8-10.8)
[2018-12-04 05:25] LABS: ALANINE AMINOTRANSFERASE 55 U/L (12-78); ALBUMIN 1.5 G/DL (3.4-5.0); ALBUMIN/GLOBULIN RATIO 0.4 (1.0-2.7); ALKALINE PHOSPHATASE 382 U/L (46-116); ANION GAP 8 mmol/L (5-15); ASPARTATE AMINO TRANSFERASE 43 U/L (15-37); BILIRUBIN,TOTAL 0.4 MG/DL (0.2-1.0); BLOOD UREA NITROGEN 18 mg/dL (7-18); CALCIUM 7.9 MG/DL (8.5-10.1); CARBON DIOXIDE 27 MMOL/L (21-32); CHLORIDE 90 MMOL/L (98-107); CREATININE 0.5 MG/DL (0.55-1.30); POTASSIUM 3.7 MMOL/L (3.5-5.1); SODIUM 125 MMOL/L (136-145)
[2018-12-04] MEDS: Phenytoin Susp 100mg/4ml GT SCH ×3 (05:41→22:12)
[2018-12-04] MEDS: Magic Mouth Wash 60ml (Benadryl/Mylanta/Visc Lido) ORAL SCH ×3 (05:42→22:12)
[2018-12-04] MEDS: Labetalol 200mg tab GT SCH ×3 (05:42→22:12)
[2018-12-04] MEDS: NovoLOG Insulin Flexpen SUBQ SCH ×4 (05:43→23:49)
--- NOTE | 2018-12-04 06:36 | Hematology/Onc Progress Note ---
Assessment/Plan Assessment/Plan # Anemia of chronic disease due to underlying chronic medical issues, multifactorial --> Anemia workup has been reviewed and cw acd --> No evidence of hemolysis is noted, peripheral smear has been reviewed. --> Hgb goal >7. Transfuse prn. --> hgb trend 9-->8-->7.5-->9.3->8.6-->8.4-->8.7->7.6 --> Epogen or iron indication prn --> Medications have been reviewed --> low threshold for gi evaluation and occult is negative --> bone marrow biopsy is not indicated given the other more likely causes # Leukocytosis with sepsis secondary to UTI, GPC Staph Epidermidis bacteremia, Line associated infection - patient arrived to the Hospital with PICC --> as per ID consult appreciate Rec --> Continue antibiotics per ID: Continue Zosyn and vancomycin, anti fungal added--> kaykay/vanc, diflucan-->flagyl, vanc, polymyxin--> omid/flafgyl/polym/ vanc --> imaging noted --> now improved # Thrombocytosis is likely due to underlying reactive process --> if doesn't improve send off jak2 --> plt count 641k-->402k-->344-->275k-->280k-->250k-->255k # Elevated tumor marker, cea --> as per gi eval # Transaminitis --> trend lft's --> GI consult, apprec recs --> ab us: reviewed # Elevated troponin secondary to sepsis versus ACS --> as per Cardiology consult, appreciate recs # Hypertension- improved --> sbp goal <150 # Vent dependent with trach --> as per Pulmonary recs # Hypokalemia # Dysphagia s/p gtube feeds # CHf hx with hyponatremia --> 1l fluid restriction # Dvt ppx with lovenox (ok to continue given occult neg) The timing of this note does not necessarily reflect the time of the patient was seen. GREATLY APPRECIATE CONSULTATION. Subjective Constitutional: Denies: no symptoms, chills, fever, malaise, weakness, other HEENT: Denies: no symptoms, eye pain, blurred vision, tearing, double vision, ear pain, ear discharge, nose pain, nose congestion, throat pain, throat swelling, mouth pain, mouth swelling, other Cardiovascular: Denies: no symptoms, chest pain, edema, irregular heart rate, lightheadedness, palpitations, syncope, other Respiratory: Denies: no symptoms, cough, shortness of breath, SOB with excertion, SOB at rest, sputum, wheezing, other Gastrointestinal/Abdominal: Denies: no symptoms, abdomen distended, abdominal pain, black stools, tarry stools, blood in stool, constipated, diarrhea, difficulty swallowing, nausea, poor appetite, poor fluid intake, rectal bleeding , vomiting, other Genitourinary: Denies: no symptoms, burning, discharge, frequency, flank pain, hematuria, incontinence, pain, urgency, other Neurologic/Psychiatric: Denies: no symptoms, anxiety, depressed, emotional problems, headache, numbness, paresthesia, pre-existing deficit, seizure, tingling, tremors, weakness, other Endocrine: Denies: no symptoms, excessive sweating, flushing, intolerance to cold, intolerance to heat, increased hunger, increased thirst, increased urine, unexplained weight gain, unexplained weight loss, other Allergies: Coded Allergies: Crayfish (Unverified Allergy, Unknown, 11/11/18) Uncoded Allergies: Crawfish (Allergy, Unknown, 11/09/18) Subjective 11/14: no events to report, labs relatively stable, hgb 8.9, on vent 11/15: no bleeding, no chills, labs reviewed, no major changes 11/16: cxr-->bilateral interstitial edema, vs stable, on abx, on vent, contact isolation 11/17: labs reviewed, on abx, vs stable, on vent, no distress 11/18: remains on gtube feeds, is on vent, on kaykay/vanc 11/20: no events, no bleeding, kaykay, vanc, diflucan, no f/c 11/21: remains on vent, gtube feeds, no major changes, no bleeding 11/22: ct abdomen pelvis w/contrast reviewed, vs stable, no acute events, labs reviewed, remains intubated, low grade fever 11/23: reviewed meds, abx have been changed, remains altered currently 11/24: labs reviewed, vs stable, med reviewed, no sob, no distress, on vent 11/25: remains on vent, no major events, on glucerna, fluid restriction 11/27: signed consent today, no f/c, no night sweats 11/28: no f/c, on abx, on vent, no distress, picc line in 11/29: no events to report, no f/c, no bleeding noted, on vent 11/30: vs stable, no f/c, on vent, obtunded, gtube feeds 12/01: no f/c, cxr-->pulmonary edema, meds reviewed, contact precaution, on vent , labs noted 12/03: ongoing gtube feeds, nava in place, on vent, no bleeding 12/04: remains obtunded, on trach/to vent, no bleeding today, labs noted Objective Objective Current Medications Medications (Trade) Dose Ordered Sig/Lupe Route PRN Reason Start Time Stop Time Status Last Admin Dose Admin Acetaminophen (Tylenol) 650 mg Q4H PRN GT Mild Pain/Temp > 100.5 11/09/18 05:00 12/09/18 04:59 11/24/18 21:50 Amlodipine Besylate (Norvasc) 10 mg DAILY GT 11/09/18 09:00 12/09/18 08:59 12/02/18 08:49 Bisacodyl (Dulcolax) 10 mg DAILY PRN RECTAL Constipation 11/09/18 05:00 12/09/18 04:59 Chlorhexidine Gluconate (Corazon-Hex 2%) 1 applic DAILY@2000 TOPIC 11/12/18 20:00 12/12/18 19:59 12/03/18 20:18 Dextrose (Dextrose 50%) 25 ml Q30M PRN IV Hypoglycemia 11/09/18 04:45 12/09/18 04:44 Dextrose (Dextrose 50%) 50 ml Q30M PRN IV Hypoglycemia 11/09/18 04:45 12/09/18 04:44 11/09/18 09:09 Enoxaparin Sodium (Lovenox) 40 mg DAILY SUBQ 11/09/18 09:00 12/09/18 08:59 12/03/18 09:06 Famotidine (Pepcid) 20 mg EVERY 12 HOURS GT 11/09/18 21:00 12/09/18 08:59 12/03/18 20:43 Insulin Aspart (NovoLOG) Q6HR SUBQ 11/09/18 06:00 12/09/18 05:59 12/04/18 05:43 Insulin Detemir (Levemir) 4 units EVERY 12 HOURS SUBQ 11/16/18 21:00 12/09/18 08:59 12/03/18 20:45 Labetalol HCl (Normodyne) 200 mg Q8HR GT 11/09/18 06:00 12/09/18 05:59 12/04/18 05:42 Lactulose (Cephulac) 10 gm THREE TIMES A DAY GT 11/27/18 18:00 12/27/18 12:59 12/03/18 17:07 Levetiracetam (Keppra) 1,500 mg Q12HR GT 11/09/18 09:00 12/09/18 08:59 12/03/18 20:43 Magnesium Hydroxide (Mom) 30 ml DAILY PRN GT Constipation 11/09/18 05:00 12/09/18 04:59 Ondansetron HCl (Zofran) 4 mg Q6H PRN GT Nausea & Vomiting 11/09/18 05:00 12/09/18 04:59 Phenobarbital (PHENobarbital) 60 mg BID GT 11/09/18 09:00 12/09/18 08:59 12/03/18 17:07 Phenytoin (Dilantin) 100 mg Q8HR GT 11/09/18 06:00 12/09/18 05:59 12/04/18 05:41 Polyethylene Glycol (Miralax) 17 gm DAILYPRN PRN GT Constipation 11/14/18 10:30 12/12/18 10:29 Sennosides (Senokot) 8.6 mg EVERY 12 HOURS GT 11/09/18 21:00 12/09/18 08:59 12/03/18 20:43 Vancomycin HCl (Vanco rx to dose) 1 ea DAILY PRN MISC Per rx protocol 11/28/18 11:45 12/28/18 11:44 Last 24 Hour Vital Signs Date Time Temp Pulse Resp B/P (MAP) Pulse Ox O2 Delivery O2 Flow Rate FiO2 12/04/18 05:42 83 111/59 12/04/18 05:05 87 24 30 12/04/18 04:00 97.0 81 22 113/55 (74) 100 9/16/19 04:00 30 12/04/18 04:00 Mechanical Ventilator 12/04/18 03:43 81 12/04/18 02:47 88 26 30 12/04/18 00:30 77 22 30 12/04/18 00:00 Mechanical Ventilator 12/04/18 00:00 30 12/04/18 00:00 96.6 87 24 105/59 (74) 98 12/03/18 23:40 81 12/03/18 22:31 80 24 30 12/03/18 22:05 79 104/63 12/03/18 20:48 71 25 30 12/03/18 20:00 30 12/03/18 20:00 Mechanical Ventilator 12/03/18 20:00 96.3 82 26 115/69 (84) 100 12/03/18 19:21 75 12/03/18 18:41 73 23 30 12/03/18 16:50 79 25 30 12/03/18 16:00 Mechanical Ventilator 12/03/18 16:00 30 12/03/18 16:00 97.0 78 26 115/58 (77) 97 12/03/18 15:23 71 12/03/18 14:58 70 24 30 12/03/18 14:32 71 112/55 12/03/18 12:57 71 26 30 12/03/18 12:00 96.5 71 26 112/55 (74) 100 12/03/18 12:00 30 12/03/18 12:00 Mechanical Ventilator 12/03/18 11:47 71 12/03/18 10:50 70 23 30 12/03/18 09:28 71 23 30 12/03/18 08:46 65 105/58 12/03/18 08:00 97.0 65 19 105/58 (74) 100 12/03/18 08:00 Mechanical Ventilator 12/03/18 08:00 30 12/03/18 07:45 66 12/03/18 06:38 67 23 30 12/03/18 05:44 63 108/55 12/03/18 04:45 65 23 30 12/03/18 04:00 Mechanical Ventilator 12/03/18 04:00 96.5 66 20 109/59 (76) 100 12/03/18 04:00 30 12/03/18 03:35 65 12/03/18 03:26 74 24 30 12/03/18 00:50 65 26 30 12/03/18 00:00 Mechanical Ventilator 12/03/18 00:00 96.0 65 23 94/50 (65) 100 12/02/18 23:57 62 12/02/18 22:59 69 23 30 12/02/18 21:43 71 110/57 12/02/18 20:52 77 24 30 12/02/18 20:00 Mechanical Ventilator 12/02/18 20:00 30 12/02/18 20:00 96.1 97 18 124/71 (88) 100 12/02/18 20:00 74 12/02/18 19:15 72 22 30 12/02/18 17:15 76 26 30 12/02/18 16:00 Mechanical Ventilator 12/02/18 16:00 98.5 73 17 134/68 (90) 100 12/02/18 16:00 30 12/02/18 15:58 67 12/02/18 14:55 71 22 30 12/02/18 14:18 68 131/56 12/02/18 13:05 68 24 30 12/02/18 12:00 71 12/02/18 12:00 97.9 79 19 131/56 (81) 100 12/02/18 12:00 Mechanical Ventilator 12/02/18 12:00 30 12/02/18 10:55 79 25 30 12/02/18 09:02 75 28 30 12/02/18 08:59 73 12/02/18 08:49 76 127/66 12/02/18 08:00 97.0 74 22 127/66 (86) 100 12/02/18 08:00 30 12/02/18 08:00 Mechanical Ventilator 12/02/18 07:04 72 24 30 Intake and Output 12/03/18 12/04/18 19:00 07:00 Intake Total 1830.000 ml 505 ml Output Total 550 ml Balance 1280.000 ml 505 ml IV Total 1215.000 ml Tube Feeding 585 ml 455 ml Other 30 ml 50 ml Output Urine Total 550 ml # Bowel Movements 2 1 Labs Test 12/01/18 08:55 12/01/18 20:00 12/02/18 03:50 12/02/18 18:20 White Blood Count 9.8 K/UL (4.8-10.8) 10.1 K/UL (4.8-10.8) Red Blood Count 3.37 M/UL (4.20-5.40) 2.89 M/UL (4.20-5.40) Hemoglobin 8.7 G/DL (12.0-16.0) 7.8 G/DL (12.0-16.0) Hematocrit 25.8 % (37.0-47.0) 21.7 % (37.0-47.0) Mean Corpuscular Volume 76 FL (80-99) 75 FL (80-99) Mean Corpuscular Hemoglobin 25.6 PG (27.0-31.0) 26.9 PG (27.0-31.0) Mean Corpuscular Hemoglobin Concent 33.5 G/DL (32.0-36.0) 35.7 G/DL (32.0-36.0) Red Cell Distribution Width 19.8 % (11.6-14.8) 19.0 % (11.6-14.8) Platelet Count 255 K/UL (150-450) 226 K/UL (150-450) Mean Platelet Volume 5.6 FL (6.5-10.1) 6.6 FL (6.5-10.1) Neutrophils (%) (Auto) 80.9 % (45.0-75.0) % (45.0-75.0) Lymphocytes (%) (Auto) 7.9 % (20.0-45.0) % (20.0-45.0) Monocytes (%) (Auto) 8.3 % (1.0-10.0) % (1.0-10.0) Eosinophils (%) (Auto) 2.0 % (0.0-3.0) % (0.0-3.0) Basophils (%) (Auto) 0.9 % (0.0-2.0) % (0.0-2.0) Sodium Level 120 MMOL/L (136-145) 124 MMOL/L (136-145) 124 MMOL/L (136-145) Potassium Level 3.8 MMOL/L (3.5-5.1) 3.6 MMOL/L (3.5-5.1) 3.3 MMOL/L (3.5-5.1) Chloride Level 87 MMOL/L (98-107) 89 MMOL/L (98-107) 89 MMOL/L (98-107) Carbon Dioxide Level 29 MMOL/L (21-32) 29 MMOL/L (21-32) 29 MMOL/L (21-32) Anion Gap 4 mmol/L (5-15) 6 mmol/L (5-15) 6 mmol/L (5-15) Blood Urea Nitrogen 15 mg/dL (7-18) 14 mg/dL (7-18) 14 mg/dL (7-18) Creatinine 0.4 MG/DL (0.55-1.30) 0.4 MG/DL (0.55-1.30) 0.4 MG/DL (0.55-1.30) Estimat Glomerular Filtration Rate mL/min (>60) mL/min (>60) mL/min (>60) Glucose Level 182 MG/DL (74-106) 115 MG/DL (74-106) 118 MG/DL (74-106) Calcium Level 7.6 MG/DL (8.5-10.1) 7.7 MG/DL (8.5-10.1) 7.5 MG/DL (8.5-10.1) Phosphorus Level 2.0 MG/DL (2.5-4.9) Magnesium Level 1.0 MG/DL (1.8-2.4) Total Bilirubin 0.3 MG/DL (0.2-1.0) Aspartate Amino Transf (AST/SGOT) 100 U/L (15-37) Alanine Aminotransferase (ALT/SGPT) 89 U/L (12-78) Alkaline Phosphatase 481 U/L (46-116) Pro-B-Type Natriuretic Peptide 956 pg/mL (0-125) Total Protein 4.8 G/DL (6.4-8.2) Albumin 1.1 G/DL (3.4-5.0) Globulin 3.7 g/dL Albumin/Globulin Ratio 0.3 (1.0-2.7) Differential Total Cells Counted 100 Neutrophils % (Manual) 74 % (45-75) Lymphocytes % (Manual) 6 % (20-45) Monocytes % (Manual) 7 % (1-10) Eosinophils % (Manual) 1 % (0-3) Basophils % (Manual) 0 % (0-2) Band Neutrophils 12 % (0-8) Platelet Estimate Adequate Platelet Morphology Normal Anisocytosis 1+ Microcytosis 1+ Stool Occult Blood Negative (NEGATIVE) Test 12/02/18 20:30 12/03/18 04:00 12/04/18 03:30 Sodium Level 127 MMOL/L (136-145) 125 MMOL/L (136-145) 125 MMOL/L (136-145) Potassium Level 3.5 MMOL/L (3.5-5.1) 3.4 MMOL/L (3.5-5.1) 3.7 MMOL/L (3.5-5.1) Chloride Level 92 MMOL/L (98-107) 90 MMOL/L (98-107) 90 MMOL/L (98-107) Carbon Dioxide Level 31 MMOL/L (21-32) 29 MMOL/L (21-32) 27 MMOL/L (21-32) Anion Gap 5 mmol/L (5-15) 6 mmol/L (5-15) 8 mmol/L (5-15) Blood Urea Nitrogen 15 mg/dL (7-18) 16 mg/dL (7-18) 18 mg/dL (7-18) Creatinine 0.4 MG/DL (0.55-1.30) 0.4 MG/DL (0.55-1.30) 0.5 MG/DL (0.55-1.30) Estimat Glomerular Filtration Rate mL/min (>60) mL/min (>60) mL/min (>60) Glucose Level 107 MG/DL (74-106) 96 MG/DL (74-106) 114 MG/DL (74-106) Calcium Level 7.9 MG/DL (8.5-10.1) 7.8 MG/DL (8.5-10.1) 7.9 MG/DL (8.5-10.1) White Blood Count 11.7 K/UL (4.8-10.8) 10.8 K/UL (4.8-10.8) Red Blood Count 2.90 M/UL (4.20-5.40) 2.87 M/UL (4.20-5.40) Hemoglobin 7.6 G/DL (12.0-16.0) 7.6 G/DL (12.0-16.0) Hematocrit 22.2 % (37.0-47.0) 22.7 % (37.0-47.0) Mean Corpuscular Volume 77 FL (80-99) 79 FL (80-99) Mean Corpuscular Hemoglobin 26.2 PG (27.0-31.0) 26.5 PG (27.0-31.0) Mean Corpuscular Hemoglobin Concent 34.2 G/DL (32.0-36.0) 33.5 G/DL (32.0-36.0) Red Cell Distribution Width 19.6 % (11.6-14.8) 18.3 % (11.6-14.8) Platelet Count 203 K/UL (150-450) 198 K/UL (150-450) Mean Platelet Volume 6.6 FL (6.5-10.1) 7.3 FL (6.5-10.1) Neutrophils (%) (Auto) % (45.0-75.0) % (45.0-75.0) Lymphocytes (%) (Auto) % (20.0-45.0) % (20.0-45.0) Monocytes (%) (Auto) % (1.0-10.0) % (1.0-10.0) Eosinophils (%) (Auto) % (0.0-3.0) % (0.0-3.0) Basophils (%) (Auto) % (0.0-2.0) % (0.0-2.0) Differential Total Cells Counted 100 Neutrophils % (Manual) 79 % (45-75) Lymphocytes % (Manual) 5 % (20-45) Monocytes % (Manual) 9 % (1-10) Eosinophils % (Manual) 2 % (0-3) Basophils % (Manual) 0 % (0-2) Band Neutrophils 5 % (0-8) Platelet Estimate Adequate Platelet Morphology Normal Anisocytosis 1+ Microcytosis 1+ Total Bilirubin 0.4 MG/DL (0.2-1.0) 0.4 MG/DL (0.2-1.0) Aspartate Amino Transf (AST/SGOT) 69 U/L (15-37) 43 U/L (15-37) Alanine Aminotransferase (ALT/SGPT) 69 U/L (12-78) 55 U/L (12-78) Alkaline Phosphatase 475 U/L (46-116) 382 U/L (46-116) Total Protein 5.0 G/DL (6.4-8.2) 5.2 G/DL (6.4-8.2) Albumin 1.5 G/DL (3.4-5.0) 1.5 G/DL (3.4-5.0) Globulin 3.5 g/dL 3.7 g/dL Albumin/Globulin Ratio 0.4 (1.0-2.7) 0.4 (1.0-2.7) Height (Feet): 5 Height (Inches): 8.00 Weight (Pounds): 208 Objective Physical Exam: Vitals: reviewed Gen: NAD HEENT: normocephalic, atraumatic Neck: non-tender, normal alignment ++ vent/trach Respiratory: normal breath sounds bilaterally CV: normal peripheral pulses, rrr Abdomen: normal bowel sounds, soft, nontender +gtube Extremities: 1-2+ edema, normal range of motion Yonathan Hernandez MD Dec 04, 2018 06:36
--- NOTE | 2018-12-04 07:12 | NUR ---
HAND-OFF: Report given to Alessia DESHPANDE.
--- NOTE | 2018-12-04 07:18 | NUR ---
NURSE NOTES: ABG Ordered in error for 4am. Order was cancelled.
--- NOTE | 2018-12-04 07:19 | NUR ---
NURSE NOTES: Received patient in bed. In no apparent distress. Vent dependent. Ospina cath inplace. GT noted. With right upper arm PICC line, dressing changed dated 11/30/18. Contact isolation observed. Will continue plan of care.
[2018-12-04 08:00] VITALS: BP 129/56
--- NOTE | 2018-12-04 08:56 | General Progress Note ---
Assessment/Plan Problem List: (1) Gram-negative pneumonia ICD Codes: J15.6 - Pneumonia due to other Gram-negative bacteria SNOMED: 267605016 (2) MRSA (methicillin resistant staphylococcus aureus) pneumonia ICD Codes: J15.212 - Pneumonia due to Methicillin resistant Staphylococcus aureus SNOMED: 920801843583358 (3) Fever ICD Codes: R50.9 - Fever, unspecified SNOMED: 199260886 (4) UTI (urinary tract infection) ICD Codes: N39.0 - Urinary tract infection, site not specified SNOMED: 74763224 (5) Tracheostomy dependence ICD Codes: Z93.0 - Tracheostomy status SNOMED: 404326779 (6) Ventilator dependence ICD Codes: Z99.11 - Dependence on respirator [ventilator] status SNOMED: 767273879 (7) Protein calorie malnutrition ICD Codes: E46 - Unspecified protein-calorie malnutrition SNOMED: 859532602 (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 SNOMED: 82407170 (9) Drug rash ICD Codes: L27.0 - Generalized skin eruption due to drugs and medicaments taken internally SNOMED: 06663720 (10) Line sepsis ICD Codes: T85.79XA - Infection and inflammatory reaction due to other internal prosthetic devices, implants and grafts, initial encounter; A41.9 - Sepsis, unspecified organism SNOMED: 39386917, 219001862 (11) Bacteremia ICD Codes: R78.81 - Bacteremia SNOMED: 7778344 (12) Hyponatremia ICD Codes: E87.1 - Hypo-osmolality and hyponatremia SNOMED: 20062143 (13) Sepsis ICD Codes: A41.9 - Sepsis, unspecified organism SNOMED: 44999697 (14) Seizure disorder ICD Codes: G40.909 - Epilepsy, unspecified, not intractable, without status epilepticus SNOMED: 798940301 (15) Diabetes ICD Codes: E11.9 - Type 2 diabetes mellitus without complications SNOMED: 05673636 (16) Colon adenocarcinoma ICD Codes: C18.9 - Malignant neoplasm of colon, unspecified SNOMED: 469458464 (17) Anoxic brain damage ICD Codes: G93.1 - Anoxic brain damage, not elsewhere classified SNOMED: 460769123 (18) Decubitus skin ulcer ICD Codes: L89.90 - Pressure ulcer of unspecified site, unspecified stage SNOMED: 577784515 Status: unchanged Assessment/Plan: 78-year-old female who is trach dependent who was brought in by assisted for sepsis and found to have UTI and bacteremia. 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 fungal uti vs colonization ID consult appreciate Rec Vancomycin and Meropenem started 11/16 ( Zosyn stopped) , fungal coverage with Diflucan added 11/18. Repeat sputum cultures with RAULTELLA PLANTICOA and PROVIDENCIA STUARTI resistant to most antibiotics Developed morbilliform rash on meropenem, this was stopped and rash is better, has persistent fevers. Started Polymyxin and flagyl 11/21. Added vancomycin and micafungin on 11/24. Day 8 of 10 of abx picc cultures, no growth so far. repeat sputum cultures Organism 1 A.BAUMANII COMPLX - MDR GROWTH: 4+ Organism 2 PSEUDOMONAS AERUGINOSA ACIBCX-MDR PSE AERUGI M.I.C. RX M.I.C. RX --------- --- --------- --- CEFTAZIDIME >=64 R 2 S CEFTRIAXONE >=64 R CEFEPIME >=64 R <=1 S CIPROFLOXACIN >=4 R <=0.25 S GENTAMICIN >=16 R <=1 S LEVOFLOXACIN >=8 R 0.5 S IMIPENEM >=16 R >=16 R TRIMETHOPRIM/SULFA <=20 S AMIKACIN <=2 S PIPERACILLIN/TAZOBACTAM 8 S Discussed with daughter at bedside. CT abdomen pelvis shows no acute process Removed PICC and place new line 11/13/18 Echo to eval for vegetation negative Chest x-ray reviewed, no change #hyponatremia, hypotonic. Intravascularly depleted vs SIADH s/p hypertonic saline which has not corrected sodium. Serum Cortisol and TSH WNL , valproic acid stopped. Urea unavailable at the hospital. Free water stopped via GT. urine osmol, serum urea, urine sodium reviewed nephrology consult with Dr. Diana Sommers. # Transaminitis - worsening, meds vs passive congestion - trend lft's - GI consult, appreciate recs - ab us: reviewed - hep panel negative #Elevated troponin secondary to sepsis versus ACS Cardiology consult, appreciate recs Medications per cardiology #Microcytic anemia- mixed anemia of chronic inflammation and iron deficiency. Start ferrous sulfate TID , transfused 1 uprbc 11/27. hemoglobin stable #Hypertension- improved Continue current medications, hydralazine as needed hypertension #Vent dependent Pulmonary consult, appreciate recs Vent management per pulmonary #Hypokalemia, hypophosphatemia, hypomagnesemia Replace, continue to monitor # Chronic tongue wound Supportive care On examination the patient has a sharp lower incisor present that is likely the culprit for the tongue laceration when she was intubated in the prior hospitalization at [facility] OMFS consultation Dr. Benavides completed ( no note left ) and I spoke with him over the phone after the visit. He does not recommend any surgery. ONLY bite block MOLT if available to decompress the tongue and get the remainder teeth out of the tongue way. Keep moisture in the lips and tongue. ENT consult difficult to obtain- pending # History of mood disorder Seen by psychiatry and on Depakote. Level was checked # Seizure history - Discussed with Dr. Eric who knew the patient from [facility] and confirmed that she did have seizure activity and was on multiple AED regimen. - Will continue Depakote ( 28 level ) and (Phenytoin 4.3 ) - no active seizure activity at this time. Keep current dose. - Both Dr. Eric and Mariana not available to come to [facility] for consult and not acute need at this time. #Diabetes Mellitus, controlled - glucose noted in the 90-110's - Decreased Levemir to 4 units q 12 hours # Disposition - SNF when cleared by ID. Full code I discussed goals of care and current condition with daughter at bedside again. She wants mom to be transferred to [facility] I spent 15 minutes at bedside discussing goals of care with daughter. prognosis guarded timing of this note may not reflect time of encounter. I spent 40 minutes on this encounter. Great than 50 percent spent of care planning. Subjective Date patient seen: Dec 04, 2018 Allergies: Coded Allergies: Crayfish (Unverified Allergy, Unknown, 11/11/18) Uncoded Allergies: Crawfish (Allergy, Unknown, 11/09/18) Subjective obtunded on vent, afebrile On broad spectrum antibiotics day 10 of 10 . Added micafungin and vancomycin 11/25 per ID. fevers resolved persistent hyponatremia. Nephrology on board. Has failed to respond to 3% saline since 12/01. Free water flushes have been also discontinues since 12/01 Objective Last 24 Hour Vital Signs Date Time Temp Pulse Resp B/P (MAP) Pulse Ox O2 Delivery O2 Flow Rate FiO2 12/04/18 08:00 97.1 80 28 129/56 (80) 100 12/04/18 08:00 Mechanical Ventilator 12/04/18 08:00 30 12/04/18 07:30 84 32 30 12/04/18 05:42 83 111/59 12/04/18 05:05 87 24 30 12/04/18 04:00 97.0 81 22 113/55 (74) 100 12/04/18 04:00 30 12/04/18 04:00 Mechanical Ventilator 12/04/18 03:43 81 12/04/18 02:47 88 26 30 12/04/18 00:30 77 22 30 12/04/18 00:00 Mechanical Ventilator 12/04/18 00:00 30 12/04/18 00:00 96.6 87 24 105/59 (74) 98 12/03/18 23:40 81 12/03/18 22:31 80 24 30 12/03/18 22:05 79 104/63 12/03/18 20:48 71 25 30 12/03/18 20:00 30 12/03/18 20:00 Mechanical Ventilator 12/03/18 20:00 96.3 82 26 115/69 (84) 100 12/03/18 19:21 75 12/03/18 18:41 73 23 30 12/03/18 16:50 79 25 30 12/03/18 16:00 Mechanical Ventilator 12/03/18 16:00 30 12/03/18 16:00 97.0 78 26 115/58 (77) 97 12/03/18 15:23 71 12/03/18 14:58 70 24 30 12/03/18 14:32 71 112/55 12/03/18 12:57 71 26 30 12/03/18 12:00 96.5 71 26 112/55 (74) 100 12/03/18 12:00 30 12/03/18 12:00 Mechanical Ventilator 12/03/18 11:47 71 12/03/18 10:50 70 23 30 12/03/18 09:28 71 23 30 Intake and Output 12/03/18 12/04/18 19:00 07:00 Intake Total 1830.000 ml 620 ml Output Total 550 ml 400 ml Balance 1280.000 ml 220 ml IV Total 1215.000 ml Tube Feeding 585 ml 520 ml Other 30 ml 100 ml Output Urine Total 550 ml 400 ml # Bowel Movements 2 2 Laboratory Tests 12/04/18 03:30: White Blood Count 10.8, Red Blood Count 2.87L, Hemoglobin 7.6L, Hematocrit 22.7L , Mean Corpuscular Volume 79L, Mean Corpuscular Hemoglobin 26.5L, Mean Corpuscular Hemoglobin Concent 33.5, Red Cell Distribution Width 18.3H, Platelet Count 198, Mean Platelet Volume 7.3, Neutrophils (%) (Auto) , Lymphocytes (%) (Auto) , Monocytes (%) (Auto) , Eosinophils (%) (Auto) , Basophils (%) (Auto) , Sodium Level 125L, Potassium Level 3.7, Chloride Level 90L, Carbon Dioxide Level 27, Anion Gap 8, Blood Urea Nitrogen 18, Creatinine 0.5L, Estimat Glomerular Filtration Rate , Glucose Level 114H, Calcium Level 7.9L, Total Bilirubin 0.4, Aspartate Amino Transf (AST/SGOT) 43H, Alanine Aminotransferase (ALT/SGPT) 55, Alkaline Phosphatase 382H, Total Protein 5.2L, Albumin 1.5L, Globulin 3.7, Albumin/Globulin Ratio 0.4L Height (Feet): 5 Height (Inches): 8.00 Weight (Pounds): 208 Objective General Appearance: no apparent distress, other - unresponsive on vent EENT: PERRL/EOMI, other - enlarged tongue protruding, lower lip severely swollen Neck: supple Cardiovascular: normal rate, regular rhythm Respiratory/Chest: lungs clear Abdomen: soft Neurologic: unresponsive Skin: Morbilliform rash to bilateral upper extremities and thighs Neftaly Walters M.D. Dec 04, 2018 08:56
[2018-12-04] MEDS: Levemir Flexpen SUBQ SCH ×2 (08:58→20:35)
[2018-12-04] MEDS: Enoxaparin 40mg Inj SUBQ SCH (08:58)
[2018-12-04] MEDS: Lactulose 10gm/15ml UDC GT SCH ×3 (09:26→17:34)
[2018-12-04] MEDS: Sennosides 8.6mg tab GT SCH ×2 (09:27→20:34)
[2018-12-04] MEDS: levETIRAcetam 500mg/5ml Liquid GT SCH ×2 (09:27→20:34)
[2018-12-04] MEDS: PHENobarbital Elixir 30mg/7.5ml GT SCH ×2 (09:27→17:34)
--- NOTE | 2018-12-04 09:47 | NUR ---
RD ASSESSMENT & RECOMMENDATIONS SEE CARE ACTIVITY FOR COMPLETE ASSESSMENT DAILY ESTIMATED NEEDS: Needs based on Critical care, sepsis, wound 60kg adj 22-30 kcals/kg [id number] total kcals 1.25-2 g protein/kg 75-120 g total protein Fluid per MD mL/kg total fluid mLs NUTRITION DIAGNOSIS: * Swallowing difficulty r/t resp status as evidenced by pt is vent dep via trach and PEG dep. * Increased kcal and pro needs r/t wound healing and sepsis as evidenced by pt w/ sacral and R heel wounds, pt now afebrile. CURRENT TF:Glucerna 1.2 @ 65ml/hr x18 hrs + Prosource x1 ENTERAL NUTRITION RECOMMENDATIONS: Glucerna 1.2 @ 65ml/hr x18 hrs + Prosource x1 daily to provide 1170ml, 1404 kcal, 70g pro + 11g pro, 942 free H2O - Maintain current TF at goal as tolerated - TF TO BE HELD FOR ONE HR BEFORE AND AFTER DILANTIN MEDS - FLUSH PER MD, HOB OVER 30 DEGREES With continued hyponatremia, rec TF change to Glucerna 1.5 for less free water. -> Rec Glucerna 1.5 @53ml/hr x18hrs to provide 954ml, 1431 kcal, 79g pro, 724ml free water to meet 100% est needs -> TF to provide 218ml less free water than Glucerna 1.2. ADDITIONAL RECOMMENDATIONS: 1) CALIBRATED BED SCALE W/ ADDED P200 MATTRESS + PUMP 2) TF TO RUN A MAX OF 18 HRS/DAY W/ DILANTIN TID PER PHARMACY 3) Monitor Na level closely, need for TF change/less free fluids 4) Monitor TF tolerance- w/ cont residuals, rec prokinetics 5) WOUND CARE: ADD CHAYITO BID + VIT C 250MG DAILY 6) Monitor lytes, replete as needed
--- NOTE | 2018-12-04 10:10 | Surgery Progress Note ---
Surgery Progress Note Subjective Additional Comments leukocytosis resolved labs stable exam unchanged. Objective Last 24 Hour Vital Signs Date Time Temp Pulse Resp B/P (MAP) Pulse Ox O2 Delivery O2 Flow Rate FiO2 12/04/18 09:28 84 129/56 12/04/18 09:04 84 30 30 12/04/18 08:00 97.1 80 28 129/56 (80) 100 12/04/18 08:00 Mechanical Ventilator 12/04/18 08:00 30 12/04/18 08:00 83 12/04/18 08:00 83 12/04/18 07:30 84 32 30 12/04/18 05:42 83 111/59 12/04/18 05:05 87 24 30 12/04/18 04:00 97.0 81 22 113/55 (74) 100 12/04/18 04:00 30 12/04/18 04:00 Mechanical Ventilator 12/04/18 03:43 81 12/04/18 02:47 88 26 30 12/04/18 00:30 77 22 30 12/04/18 00:00 Mechanical Ventilator 12/04/18 00:00 30 12/04/18 00:00 96.6 87 24 105/59 (74) 98 12/03/18 23:40 81 12/03/18 22:31 80 24 30 12/03/18 22:05 79 104/63 12/03/18 20:48 71 25 30 12/03/18 20:00 30 12/03/18 20:00 Mechanical Ventilator 12/03/18 20:00 96.3 82 26 115/69 (84) 100 12/03/18 19:21 75 12/03/18 18:41 73 23 30 12/03/18 16:50 79 25 30 12/03/18 16:00 Mechanical Ventilator 12/03/18 16:00 30 12/03/18 16:00 97.0 78 26 115/58 (77) 97 12/03/18 15:23 71 12/03/18 14:58 70 24 30 12/03/18 14:32 71 112/55 12/03/18 12:57 71 26 30 12/03/18 12:00 96.5 71 26 112/55 (74) 100 12/03/18 12:00 30 12/03/18 12:00 Mechanical Ventilator 12/03/18 11:47 71 12/03/18 10:50 70 23 30 I&O Intake and Output 12/03/18 12/04/18 19:00 07:00 Intake Total 1830.000 ml 620 ml Output Total 550 ml 400 ml Balance 1280.000 ml 220 ml IV Total 1215.000 ml Tube Feeding 585 ml 520 ml Other 30 ml 100 ml Output Urine Total 550 ml 400 ml # Bowel Movements 2 2 Dressing: other Wound: other Drains: other Cardiovascular: RSR Respiratory: decreased breath sounds Abdomen: soft, present bowel sounds, non-distended Extremities: other Laboratory Tests Test 12/04/18 03:30 White Blood Count 10.8 K/UL (4.8-10.8) Red Blood Count 2.87 M/UL (4.20-5.40) L Hemoglobin 7.6 G/DL (12.0-16.0) L Hematocrit 22.7 % (37.0-47.0) L Mean Corpuscular Volume 79 FL (80-99) L Mean Corpuscular Hemoglobin 26.5 PG (27.0-31.0) L Mean Corpuscular Hemoglobin Concent 33.5 G/DL (32.0-36.0) Red Cell Distribution Width 18.3 % (11.6-14.8) H Platelet Count 198 K/UL (150-450) Mean Platelet Volume 7.3 FL (6.5-10.1) Neutrophils (%) (Auto) % (45.0-75.0) Lymphocytes (%) (Auto) % (20.0-45.0) Monocytes (%) (Auto) % (1.0-10.0) Eosinophils (%) (Auto) % (0.0-3.0) Basophils (%) (Auto) % (0.0-2.0) Sodium Level 125 MMOL/L (136-145) L Potassium Level 3.7 MMOL/L (3.5-5.1) Chloride Level 90 MMOL/L (98-107) L Carbon Dioxide Level 27 MMOL/L (21-32) Anion Gap 8 mmol/L (5-15) Blood Urea Nitrogen 18 mg/dL (7-18) Creatinine 0.5 MG/DL (0.55-1.30) L Estimat Glomerular Filtration Rate mL/min (>60) Glucose Level 114 MG/DL (74-106) H Calcium Level 7.9 MG/DL (8.5-10.1) L Total Bilirubin 0.4 MG/DL (0.2-1.0) Aspartate Amino Transf (AST/SGOT) 43 U/L (15-37) H Alanine Aminotransferase (ALT/SGPT) 55 U/L (12-78) Alkaline Phosphatase 382 U/L (46-116) H Total Protein 5.2 G/DL (6.4-8.2) L Albumin 1.5 G/DL (3.4-5.0) L Globulin 3.7 g/dL Albumin/Globulin Ratio 0.4 (1.0-2.7) L Plan Problems: (1) Fever (2) Tongue abnormality Assessment & Plan: patients jaw clenched closed and tongue has been stuck for some time. tongue split from middle teeth and now in two. edema and unable to reduce keep tongue moist. apply lube jelly prn dryness. will monitor do not recommend surgical intervention for this current medical condition spoke with family. ENT plan to see. OMFS no intervention (3) Tracheostomy dependence (4) Sepsis Assessment & Plan: gb no stones 6mm polyp no acute surgical intervention planned trend labs improving labs improved DAILY ESTIMATED NEEDS: Needs based on Critical care, sepsis, wound 60kg adj 22-30 kcals/kg 4856-4815 total kcals 1.25-2 g protein/kg 75-120 g total protein Fluid per MD, on lasix NUTRITION DIAGNOSIS: * Swallowing difficulty r/t respiratory status as evidenced by pt is vent dep via trach and PEG dep. * Increased kcal and pro needs r/t wound healing and sepsis as evidenced by pt w/ sacral and R heel wounds, febrile (Tmax 101.5). CURRENT TF: Jevity 1.2 @50 ml/hr x16 hrs ENTERAL NUTRITION RECOMMENDATIONS: Glucerna 1.2 @65ml/hr x18 hrs + Prosource x1 daily to provide 1170ml, 1404 kcal, 70g pro + 11g pro, 942 free H2O - REC TF CHANGE AND INCREASE TO BETTER MEET EST NEEDS - TF TO BE HELD FOR ONE HR BEFORE AND AFTER DILANTIN MEDS - START @20ML/HR, ADVANCE TOLERATED 15ML/HR Q4-6 HRS TO GOAL - FLUSH PER MD, HOB OVRE 30 DEGREES ADDITIONAL RECOMMENDATIONS: 1) CALIBRATED BED SCALE W/ ADDED P200 MATTRESS + PUMP 2) ON LASIX, MONITOR LYTES AND HYDRATION STATUS DAILY 3) TF TO RUN A MAX OF 18 HRS/DAY W/ DILANTIN TID PER PHARMACY 4) REC TF CHANGE TO CARB CONTROL FORMULA 5) WOUND CARE: ADD CHAYITO BID + VIT C 250MG DAILY (5) Fever Assessment & Plan: CT A/P with findings Impression: No definite acute process Diverticulosis. No evidence of diverticulitis Extensive edema of the subcutaneous fat. 2 cm focal fluid collection/edema seen within the incision Moderate amount retained dense stool. Correlate with any clinical history of constipation Hiatal hernia. Gastrostomy Left renal parapelvic cysts Apparent prior hysterectomy (6) Decubitus skin ulcer Assessment & Plan: Pt presented on admission with full thickness sacral pressure injury.Base of wound is 20% necrotic , 80% slough. borders are macerated . Mild odor noted. (L)8.4cm x (W) 6.5cm. Periwound skin tone is darker without erythema,induration or elevation in skin temp. Both heels are non -blanchable and both are fluctuant when palpated. Tx.Plan: Clean wound with saline. Apply Therahoney. Aply Moisture Barrier paste periwound. Cover with Optifoam drsg. Change every 3 days and prn. Apply Cavilon Skin BArrier to both heels. Cover each heel with Optifoam drsg. Change every 7 days and prn. APM/DEIRDRE mattress overlay. Reposition at least every 2hours or as tolerated. Off-load heels with pillow. will follow with recs thank you Preet Hylton Dec 04, 2018 10:10
--- NOTE | 2018-12-04 10:53 | GI Progress Note ---
Assessment/Plan Problems: (1) Abnormal LFTs ICD Codes: R94.5 - Abnormal results of liver function studies SNOMED: 679828193 (2) Decubitus skin ulcer ICD Codes: L89.90 - Pressure ulcer of unspecified site, unspecified stage SNOMED: 579238583 (3) Protein calorie malnutrition ICD Codes: E46 - Unspecified protein-calorie malnutrition SNOMED: 000099916 (4) Colon adenocarcinoma ICD Codes: C18.9 - Malignant neoplasm of colon, unspecified SNOMED: 933270184 (5) Sepsis ICD Codes: A41.9 - Sepsis, unspecified organism SNOMED: 16537491 (6) Tracheostomy dependence ICD Codes: Z93.0 - Tracheostomy status SNOMED: 038260385 (7) 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 Humphries. Assessment/Plan Assessment - Iron deficiency anemia - abnormal LFT - ? meds, passive congestion - dysphagia, s/p GT - Resp, failure, s/p Trach - hepatitis panel negative Recommendations - Continue TF - Monitor LFT - follow CBC - Conservative approach given poor health - CT and us reviewed The patient was seen and examined at bedside and all new and available data was reviewed in the patients chart. I agree with the above findings, impression and plan. (Patient seen earlier today. Signature stamp does not reflect patient encounter time.). - Casper Humphries MD Subjective Subjective limited Objective Last 24 Hour Vital Signs Date Time Temp Pulse Resp B/P (MAP) Pulse Ox O2 Delivery O2 Flow Rate FiO2 12/04/18 09:28 84 129/56 12/04/18 09:04 84 30 30 12/04/18 08:00 97.1 80 28 129/56 (80) 100 12/04/18 08:00 Mechanical Ventilator 12/04/18 08:00 30 12/04/18 08:00 83 12/04/18 08:00 83 12/04/18 07:30 84 32 30 12/04/18 05:42 83 111/59 12/04/18 05:05 87 24 30 12/04/18 04:00 97.0 81 22 113/55 (74) 100 12/04/18 04:00 30 12/04/18 04:00 Mechanical Ventilator 12/04/18 03:43 81 12/04/18 02:47 88 26 30 12/04/18 00:30 77 22 30 12/04/18 00:00 Mechanical Ventilator 12/04/18 00:00 30 12/04/18 00:00 96.6 87 24 105/59 (74) 98 12/03/18 23:40 81 12/03/18 22:31 80 24 30 12/03/18 22:05 79 104/63 12/03/18 20:48 71 25 30 12/03/18 20:00 30 12/03/18 20:00 Mechanical Ventilator 12/03/18 20:00 96.3 82 26 115/69 (84) 100 12/03/18 19:21 75 12/03/18 18:41 73 23 30 12/03/18 16:50 79 25 30 12/03/18 16:00 Mechanical Ventilator 12/03/18 16:00 30 12/03/18 16:00 97.0 78 26 115/58 (77) 97 12/03/18 15:23 71 12/03/18 14:58 70 24 30 12/03/18 14:32 71 112/55 12/03/18 12:57 71 26 30 12/03/18 12:00 96.5 71 26 112/55 (74) 100 12/03/18 12:00 30 12/03/18 12:00 Mechanical Ventilator 12/03/18 11:47 71 Intake and Output 12/03/18 12/04/18 19:00 07:00 Intake Total 1830.000 ml 620 ml Output Total 550 ml 400 ml Balance 1280.000 ml 220 ml IV Total 1215.000 ml Tube Feeding 585 ml 520 ml Other 30 ml 100 ml Output Urine Total 550 ml 400 ml # Bowel Movements 2 2 Laboratory Tests Test 12/04/18 03:30 White Blood Count 10.8 K/UL (4.8-10.8) Red Blood Count 2.87 M/UL (4.20-5.40) L Hemoglobin 7.6 G/DL (12.0-16.0) L Hematocrit 22.7 % (37.0-47.0) L Mean Corpuscular Volume 79 FL (80-99) L Mean Corpuscular Hemoglobin 26.5 PG (27.0-31.0) L Mean Corpuscular Hemoglobin Concent 33.5 G/DL (32.0-36.0) Red Cell Distribution Width 18.3 % (11.6-14.8) H Platelet Count 198 K/UL (150-450) Mean Platelet Volume 7.3 FL (6.5-10.1) Neutrophils (%) (Auto) % (45.0-75.0) Lymphocytes (%) (Auto) % (20.0-45.0) Monocytes (%) (Auto) % (1.0-10.0) Eosinophils (%) (Auto) % (0.0-3.0) Basophils (%) (Auto) % (0.0-2.0) Sodium Level 125 MMOL/L (136-145) L Potassium Level 3.7 MMOL/L (3.5-5.1) Chloride Level 90 MMOL/L (98-107) L Carbon Dioxide Level 27 MMOL/L (21-32) Anion Gap 8 mmol/L (5-15) Blood Urea Nitrogen 18 mg/dL (7-18) Creatinine 0.5 MG/DL (0.55-1.30) L Estimat Glomerular Filtration Rate mL/min (>60) Glucose Level 114 MG/DL (74-106) H Calcium Level 7.9 MG/DL (8.5-10.1) L Total Bilirubin 0.4 MG/DL (0.2-1.0) Aspartate Amino Transf (AST/SGOT) 43 U/L (15-37) H Alanine Aminotransferase (ALT/SGPT) 55 U/L (12-78) Alkaline Phosphatase 382 U/L (46-116) H Total Protein 5.2 G/DL (6.4-8.2) L Albumin 1.5 G/DL (3.4-5.0) L Globulin 3.7 g/dL Albumin/Globulin Ratio 0.4 (1.0-2.7) L Height (Feet): 5 Height (Inches): 8.00 Weight (Pounds): 208 General Appearance: no apparent distress Cardiovascular: normal rate Respiratory/Chest: normal breath sounds, no respiratory distress Abdominal Exam: normal bowel sounds, non tender, soft Extremities: non-tender Aysha Sykes [employer] Dec 04, 2018 10:53
[2018-12-04 12:00] VITALS: BP 95/60
[2018-12-04] MEDS ORDERED: NaCl 3% 500ml 250 ML IV ONE (12:00)
--- NOTE | 2018-12-04 12:26 | NUR ---
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 97.3 HR 82 RR 32 B/P 95/60 AC 14 TV 375 FIO2 30% PEEP 5 H/H 7.6/22.7 NA 125 AST 43 ALK PHOS 382 ALB 1.5 IS: IV NS% @ 30ML/HR KEPPRA LOVENOX SUBC NORVASC DILANTIN STEP DOWN STATUS
--- NOTE | 2018-12-04 12:48 | Infectious Diseases Prog Note ---
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 fungal uti vs colonization, ? new line infection , ? new nosocomial infection - polymyxin and flagyl, vancomycin and micafungin - finish treatment course - fevers resolved, leukocytosis resolved - previous picc line changed - CT scan without abscess or diverticulitis - sacral wound management per surgery - rash improved/stable - ? enlarged tongue - ENT evaluation if possible 2. Trach-vent respiratory failure. 3. Dysphagia, G-tube. 4. Anemia. 5. Diabetes. 6. Hypertension. 7. Large tongue. 8. Anoxic brain injury. 9. Weakness. 10. Poorly responsive. 11. History of seizures. 12. History of colon adenocarcinoma. 13. Skin care protocol. 14. Allergy to crawfish. 15. Social history negative. 16. Family history noncontributory. 17. MAR was noted. 18. Case was discussed with RN. 19. Continue treatment per primary consultants. 20. Orders were ordered, entered, and noted. 21. Continue wound care protocol. 22. Continue blood sugar and blood pressure treatment per primary consultants for diabetes and hypertension. 23. vre colonization and isolation Subjective Constitutional: Reports: other - + trach and vent ; Denies: fever HEENT: Reports: congestion Respiratory: Reports: shortness of breath Gastrointestinal/Abdominal: Denies: nausea, vomiting, diarrhea Genitourinary: Reports: other - + nava Neurologic: Reports: other - lethargic, poorl responsive, no sz Psychiatric: Reports: other - NA Skin: Denies: rash Hematologic: Denies: bleeding Musculoskeletal: Reports: other - NA Allergies: Coded Allergies: Crayfish (Unverified Allergy, Unknown, 11/11/18) Uncoded Allergies: Crawfish (Allergy, Unknown, 11/09/18) Objective Vital Signs Last 24 Hour Vital Signs Date Time Temp Pulse Resp B/P (MAP) Pulse Ox O2 Delivery O2 Flow Rate FiO2 12/04/18 12:00 Mechanical Ventilator 12/04/18 12:00 30 12/04/18 12:00 80 12/04/18 12:00 97.3 82 28 95/60 (72) 100 12/04/18 11:30 83 28 30 12/04/18 09:28 84 129/56 12/04/18 09:04 84 30 30 12/04/18 08:00 97.1 80 28 129/56 (80) 100 12/04/18 08:00 Mechanical Ventilator 12/04/18 08:00 30 12/04/18 08:00 83 12/04/18 08:00 83 12/04/18 07:30 84 32 30 12/04/18 05:42 83 111/59 12/04/18 05:05 87 24 30 12/04/18 04:00 97.0 81 22 113/55 (74) 100 12/04/18 04:00 30 12/04/18 04:00 Mechanical Ventilator 12/04/18 03:43 81 12/04/18 02:47 88 26 30 12/04/18 00:30 77 22 30 12/04/18 00:00 Mechanical Ventilator 12/04/18 00:00 30 12/04/18 00:00 96.6 87 24 105/59 (74) 98 12/03/18 23:40 81 12/03/18 22:31 80 24 30 12/03/18 22:05 79 104/63 12/03/18 20:48 71 25 30 12/03/18 20:00 30 12/03/18 20:00 Mechanical Ventilator 12/03/18 20:00 96.3 82 26 115/69 (84) 100 12/03/18 19:21 75 12/03/18 18:41 73 23 30 12/03/18 16:50 79 25 30 12/03/18 16:00 Mechanical Ventilator 12/03/18 16:00 30 12/03/18 16:00 97.0 78 26 115/58 (77) 97 12/03/18 15:23 71 12/03/18 14:58 70 24 30 12/03/18 14:32 71 112/55 12/03/18 12:57 71 26 30 Height (Feet): 5 Height (Inches): 8.00 Weight (Pounds): 208 General Appearance: other - + trach and vent, poorly resposive HEENT: normocephalic, atraumatic, anicteric, no JVD, status post trach Respiratory/Chest: crackles/rales, rhonchi - bilaterally Cardiovascular: normal rate, regular rhythm, no gallop/murmur Abdomen: normal bowel sounds, soft, non tender, no organomegaly Genitourinary: other - + nava - urine cloudy Extremities: no cyanosis Skin: rash - rash stable Neurologic/Psychiatric: linseed oil press tender II-XII grossly normal, alert, responsive Lymphatic: no neck adenopathy Musculoskeletal: no effusion Objective 11/11/18 - chest x-ray - IMPRESSION: 1. Hypoventilatory lungs. Elevated right hemidiaphragm. Slightly improved vascular congestion. Similar bibasilar lung atelectasis and airspace disease. 2. Query right pleural effusion. 2-D echo - no vegetations mentioned, report noted sacral x-ray - no osteo mentioned, report noted 11/14/18 - Technique: One view of the chest Comparison: November 13, 2018 post PICC radiograph Findings: Bilateral interstitial and alveolar edema versus infiltrates appear slightly worse. There is increasing obscuration of left hemidiaphragm, may reflect increasing pleural fluid as well. The heart remains enlarged. Previously demonstrated left arm PICC has been removed. Stable right arm PICC. Impression: Slightly worsening bilateral interstitial and airspace infiltrates versus edema, over one day 11/16/18 - chest x-ray Procedure: XRAY Chest 1v Indication: Dyspnea Technique: One view of the chest Comparison: November 14, 2018 Findings: Bilateral interstitial edema persists. Tracheostomy, right arm PICC remain. The heart is enlarged. Impression: Bilateral interstitial edema, unchanged over [address] abdomen and pelvis: Impression: No definite acute process Diverticulosis. No evidence of diverticulitis Extensive edema of the subcutaneous fat. 2 cm focal fluid collection/edema seen within the incision Moderate amount retained dense stool. Correlate with any clinical history of constipation Hiatal hernia. Gastrostomy Left renal parapelvic cysts Apparent prior hysterectomy Chest x-ray - 11/23/18 - Technique: One view of the chest Comparison: 11/20/2018 Findings: Less optimal inspiration currently, with resultant crowding of the bronchovascular markings. Interstitial congestion is probably not significantly changed, allowing for differences in exposure technique. Tracheostomy remains. Right arm PICC remains. Impression: Unchanged, over 3 days, findings as above. Chest x-ray - 11/26/18 - IMPRESSION: 1. Rotated film. Increased hazy opacity at the left lung and left retrocardiac opacity. 2. Decreased left pleural effusion. 3. Elevated right hemidiaphragm with probable pleural effusion and consolidation, similar. Chest x-ray - 11/30/18 - Findings: Pulmonary edema again demonstrated. PICC line is stable as well as tracheostomy. Heart is enlarged. Basilar atelectasis suspected. The diaphragm is poorly seen. Underlying parenchymal infiltrate or other disease and/or pleural effusion may be present. IMPRESSION: Pulmonary edema Microbiology Date/Time Source Procedure Growth Status 11/24/18 15:10 Blood Blood Culture - Final NO GROWTH AFTER 5 DAYS Complete 11/26/18 09:00 Sputum Gram Stain - Final Complete 11/26/18 09:00 Sputum Culture - Final Acinetobacter Baumanii - Mdr Providencia Stuartii Complete 11/24/18 13:45 Indwelling Cath Urine Culture - Final NO GROWTH AFTER 48 HOURS Complete 11/13/18 21:55 Catheter Site Catheter Tip Culture - Final Escherichia Coli Complete Laboratory Tests Test 12/04/18 03:30 White Blood Count 10.8 K/UL (4.8-10.8) Red Blood Count 2.87 M/UL (4.20-5.40) L Hemoglobin 7.6 G/DL (12.0-16.0) L Hematocrit 22.7 % (37.0-47.0) L Mean Corpuscular Volume 79 FL (80-99) L Mean Corpuscular Hemoglobin 26.5 PG (27.0-31.0) L Mean Corpuscular Hemoglobin Concent 33.5 G/DL (32.0-36.0) Red Cell Distribution Width 18.3 % (11.6-14.8) H Platelet Count 198 K/UL (150-450) Mean Platelet Volume 7.3 FL (6.5-10.1) Neutrophils (%) (Auto) % (45.0-75.0) Lymphocytes (%) (Auto) % (20.0-45.0) Monocytes (%) (Auto) % (1.0-10.0) Eosinophils (%) (Auto) % (0.0-3.0) Basophils (%) (Auto) % (0.0-2.0) Sodium Level 125 MMOL/L (136-145) L Potassium Level 3.7 MMOL/L (3.5-5.1) Chloride Level 90 MMOL/L (98-107) L Carbon Dioxide Level 27 MMOL/L (21-32) Anion Gap 8 mmol/L (5-15) Blood Urea Nitrogen 18 mg/dL (7-18) Creatinine 0.5 MG/DL (0.55-1.30) L Estimat Glomerular Filtration Rate mL/min (>60) Glucose Level 114 MG/DL (74-106) H Calcium Level 7.9 MG/DL (8.5-10.1) L Total Bilirubin 0.4 MG/DL (0.2-1.0) Aspartate Amino Transf (AST/SGOT) 43 U/L (15-37) H Alanine Aminotransferase (ALT/SGPT) 55 U/L (12-78) Alkaline Phosphatase 382 U/L (46-116) H Total Protein 5.2 G/DL (6.4-8.2) L Albumin 1.5 G/DL (3.4-5.0) L Globulin 3.7 g/dL Albumin/Globulin Ratio 0.4 (1.0-2.7) L Current Medications Medications (Trade) Dose Ordered Sig/Lupe Route PRN Reason Start Time Stop Time Status Last Admin Dose Admin Acetaminophen (Tylenol) 650 mg Q4H PRN GT Mild Pain/Temp > 100.5 11/09/18 05:00 12/09/18 04:59 11/24/18 21:50 Amlodipine Besylate (Norvasc) 10 mg DAILY GT 11/09/18 09:00 12/09/18 08:59 12/04/18 09:28 Bisacodyl (Dulcolax) 10 mg DAILY PRN RECTAL Constipation 11/09/18 05:00 12/09/18 04:59 Chlorhexidine Gluconate (Corazon-Hex 2%) 1 applic DAILY@1999 TOPIC 11/12/18 20:00 12/12/18 19:59 12/03/18 20:18 Dextrose (Dextrose 50%) 25 ml Q30M PRN IV Hypoglycemia 11/09/18 04:45 12/09/18 04:44 Dextrose (Dextrose 50%) 50 ml Q30M PRN IV Hypoglycemia 11/09/18 04:45 12/09/18 04:44 11/09/18 09:09 Enoxaparin Sodium (Lovenox) 40 mg DAILY SUBQ 11/09/18 09:00 12/09/18 08:59 12/04/18 08:58 Famotidine (Pepcid) 20 mg EVERY 12 HOURS GT 11/09/18 21:00 12/09/18 08:59 12/04/18 09:27 Insulin Aspart (NovoLOG) Q6HR SUBQ 11/09/18 06:00 12/09/18 05:59 12/04/18 12:09 Insulin Detemir (Levemir) 4 units EVERY 12 HOURS SUBQ 11/16/18 21:00 12/09/18 08:59 12/04/18 08:58 Labetalol HCl (Normodyne) 200 mg Q8HR GT 11/09/18 06:00 12/09/18 05:59 12/04/18 05:42 Lactulose (Cephulac) 10 gm THREE TIMES A DAY GT 11/27/18 18:00 12/27/18 12:59 12/04/18 09:26 Levetiracetam (Keppra) 1,500 mg Q12HR GT 11/09/18 09:00 12/09/18 08:59 12/04/18 09:27 Magnesium Hydroxide (Mom) 30 ml DAILY PRN GT Constipation 11/09/18 05:00 12/09/18 04:59 Ondansetron HCl (Zofran) 4 mg Q6H PRN GT Nausea & Vomiting 11/09/18 05:00 12/09/18 04:59 Phenobarbital (PHENobarbital) 60 mg BID GT 11/09/18 09:00 12/09/18 08:59 12/04/18 09:27 Phenytoin (Dilantin) 100 mg Q8HR GT 11/09/18 06:00 12/09/18 05:59 12/04/18 05:41 Polyethylene Glycol (Miralax) 17 gm DAILYPRN PRN GT Constipation 11/14/18 10:30 12/12/18 10:29 Sennosides (Senokot) 8.6 mg EVERY 12 HOURS GT 11/09/18 21:00 12/09/18 08:59 12/04/18 09:27 Sodium Chloride 250 ml @ 30 mls/hr ONCE ONCE IV 12/04/18 12:00 12/04/18 20:19 12/04/18 11:29 Vancomycin HCl (Vanco rx to dose) 1 ea DAILY PRN MISC Per rx protocol 11/28/18 11:45 12/28/18 11:44 Dasha Crews MD Dec 04, 2018 12:48
--- NOTE | 2018-12-04 13:26 | Nephrology Progress Note ---
Assessment/Plan Problem List: (1) Fever (2) Diabetes (3) Seizure disorder (4) HTN (hypertension) (5) Tracheostomy dependence (6) Anoxic brain damage (7) Hyponatremia Plan #hyponatremia- likely hypovolumic vs SIADH due to valproic acid- hypo-osmolar - DC IVF given worsening swelling - DC free water flushes - Abx in NS - consider holding valproic acid as it can cause SIADH -Restrict free water - follow BMP -would need 3% only if S Na drops lower ( below 120) #H/o HTN- controlled - decrease amlodipine to 5 mg daily - labetalol 200mg TID - hydralazine 5 TID #Hypokalemia- repleted - stable today Subjective Subjective sodium stable at 125 BP borderline low Objective Objective Last 24 Hour Vital Signs Date Time Temp Pulse Resp B/P (MAP) Pulse Ox O2 Delivery O2 Flow Rate FiO2 12/04/18 12:00 Mechanical Ventilator 12/04/18 12:00 30 12/04/18 12:00 80 12/04/18 12:00 97.3 82 28 95/60 (72) 100 12/04/18 11:30 83 28 30 12/04/18 09:28 84 129/56 12/04/18 09:04 84 30 30 12/04/18 08:00 97.1 80 28 129/56 (80) 100 12/04/18 08:00 Mechanical Ventilator 12/04/18 08:00 30 12/04/18 08:00 83 12/04/18 08:00 83 12/04/18 07:30 84 32 30 12/04/18 05:42 83 111/59 12/04/18 05:05 87 24 30 12/04/18 04:00 97.0 81 22 113/55 (74) 100 12/04/18 04:00 30 12/04/18 04:00 Mechanical Ventilator 12/04/18 03:43 81 12/04/18 02:47 88 26 30 12/04/18 00:30 77 22 30 12/04/18 00:00 Mechanical Ventilator 12/04/18 00:00 30 12/04/18 00:00 96.6 87 24 105/59 (74) 98 12/03/18 23:40 81 12/03/18 22:31 80 24 30 12/03/18 22:05 79 104/63 9/15/19 20:48 71 25 30 12/03/18 20:00 30 12/03/18 20:00 Mechanical Ventilator 12/03/18 20:00 96.3 82 26 115/69 (84) 100 12/03/18 19:21 75 12/03/18 18:41 73 23 30 12/03/18 16:50 79 25 30 12/03/18 16:00 Mechanical Ventilator 12/03/18 16:00 30 12/03/18 16:00 97.0 78 26 115/58 (77) 97 12/03/18 15:23 71 12/03/18 14:58 70 24 30 12/03/18 14:32 71 112/55 Intake and Output 12/03/18 12/04/18 18:59 06:59 Intake Total 1765.000 ml 685 ml Output Total 550 ml 400 ml Balance 1215.000 ml 285 ml IV Total 1215.000 ml Tube Feeding 520 ml 585 ml Other 30 ml 100 ml Output Urine Total 550 ml 400 ml # Bowel Movements 2 2 Laboratory Tests 12/04/18 03:30: White Blood Count 10.8, Red Blood Count 2.87L, Hemoglobin 7.6L, Hematocrit 22.7L , Mean Corpuscular Volume 79L, Mean Corpuscular Hemoglobin 26.5L, Mean Corpuscular Hemoglobin Concent 33.5, Red Cell Distribution Width 18.3H, Platelet Count 198, Mean Platelet Volume 7.3, Neutrophils (%) (Auto) , Lymphocytes (%) (Auto) , Monocytes (%) (Auto) , Eosinophils (%) (Auto) , Basophils (%) (Auto) , Sodium Level 125L, Potassium Level 3.7, Chloride Level 90L, Carbon Dioxide Level 27, Anion Gap 8, Blood Urea Nitrogen 18, Creatinine 0.5L, Estimat Glomerular Filtration Rate , Glucose Level 114H, Calcium Level 7.9L, Total Bilirubin 0.4, Aspartate Amino Transf (AST/SGOT) 43H, Alanine Aminotransferase (ALT/SGPT) 55, Alkaline Phosphatase 382H, Total Protein 5.2L, Albumin 1.5L, Globulin 3.7, Albumin/Globulin Ratio 0.4L Height (Feet): 5 Height (Inches): 8.00 Weight (Pounds): 208 Objective General Appearance: no apparent distress, lethargic, + trach Neck: non-tender, normal alignment, supple, normal inspection, no JVD Rhythm: NSR Cardiovascular: normal peripheral pulses, regular rhythm, tachycardia Respiratory/Chest: biltateral faint wheezes Abdomen: normal bowel sounds, non tender, soft, + PEG Diana Sommers M.D. Dec 04, 2018 13:25
[2018-12-04] MEDS ORDERED: NS 275ml ONE (15:50)
[2018-12-04] MEDS ORDERED: Tubing IV Secondary IV ONE (15:50)
[2018-12-04] MEDS ORDERED: NS Irrig 1000ml ONE (15:50)
[2018-12-04 16:00] VITALS: BP 107/64
--- NOTE | 2018-12-04 19:02 | NUR ---
HAND-OFF: Report given to Yony Krause RN.
--- NOTE | 2018-12-04 19:03 | NUR ---
NURSE NOTES: Received patient from Alessia RN. Patient is obtunded. Receiving oxygen via trach to vent: Shiley 8 AC 14, TV 375, FiO2 30%, PEEP 5. G-tube is patent and receiving 1.2 at 65cc/hr, no residuals upon checking. IV site is right upper arm PICC receiving 3% Sodium Chloride at 30cc/hr. Collection of CMP at [address] Bcuk noted. Bed is locked, placed in lowest position, side rails up x3, call light within reach, bed alarm on. Will continue to monitor.
[2018-12-04] MEDS: Dyna-Hex 2% Top Sol 2oz TOPIC SCH (19:49)
[2018-12-04 20:00] VITALS: BP 119/72
[2018-12-04 20:41] LABS: ALANINE AMINOTRANSFERASE 45 U/L (12-78); ALBUMIN 1.3 G/DL (3.4-5.0); ALBUMIN/GLOBULIN RATIO 0.4 (1.0-2.7); ALKALINE PHOSPHATASE 346 U/L (46-116); ANION GAP 7 mmol/L (5-15); ASPARTATE AMINO TRANSFERASE 33 U/L (15-37); BILIRUBIN,TOTAL 0.4 MG/DL (0.2-1.0); BLOOD UREA NITROGEN 22 mg/dL (7-18); CALCIUM 7.8 MG/DL (8.5-10.1); CARBON DIOXIDE 28 MMOL/L (21-32); CHLORIDE 93 MMOL/L (98-107); CREATININE 0.6 MG/DL (0.55-1.30); POTASSIUM 3.7 MMOL/L (3.5-5.1); SODIUM 128 MMOL/L (136-145)
--- NOTE | 2018-12-04 20:56 | NUR ---
NURSE NOTES: Called Dr. Buck's office regarding 1999 CMP results. Left message with shearing machine operator. Awaiting orders.
--- NOTE | 2018-12-04 21:00 | NUR ---
NURSE NOTES: Dr. Astudillo called back regarding CMP results. No new orders. Will continue to monitor.
--- NOTE | 2018-12-04 22:14 | Pulmonology Progress Note ---
Assessment/Plan Assessment/Plan Pulmonary Progress Note Assessment/Plan Problems: (1) Ventilator dependence (2) Tracheostomy dependence (3) UTI (urinary tract infection) (4) Fever (5) Anoxic brain damage (6) Tongue abnormality (7) Seizure disorder (8) Colon adenocarcinoma (9) HTN (hypertension) (10) Sepsis (11) Diabetes (12) Abnormal LFTs (13) Protein calorie malnutrition (14) Gastrostomy in place (15) [facility] resident (16) Decubitus skin ulcer (17) Hyponatremia - possible SIADH - improving (18) Anemia Assessment/Plan Continue ventilatory support/settings reviewed Titrate down FiO2 to keep SaO2 > 90% Optimize pulmonary hygiene/mobilize as tolerated RTC and PRN HHN's Abx per ID, F/U Cx's F/U cards recs Monitor volumes and renal function PRN lasix DVT Px: LMWH ENT eval pending FC, continue to discuss GOC Wound care Subjective Allergies: Coded Allergies: Crayfish (Unverified Allergy, Unknown, 11/11/18) Uncoded Allergies: Crawfish (Allergy, Unknown, 11/09/18) Subjective AFVSS stable on vent no sig secretions no distress Objective Vital Signs Noted General Appearance: no acute distress, cachetic, other - non-verbal HEENT: normocephalic, status post trach, other - macroglossia, facial edema Respiratory/Chest: crackles/rales Cardiovascular: normal peripheral pulses, normal rate, regular rhythm Abdomen: normal bowel sounds, soft, non tender, no organomegaly, non distended , other - GT Extremities: no cyanosis, no clubbing, other - 1-2+ LEONORA Laboratory Tests 11/28/18 15:45: Urine Osmolality 291L, Urine Random Sodium 29 11/28/18 18:25: Sodium Level 125L, Potassium Level 3.3L, Chloride Level 90L, Carbon Dioxide Level 30, Anion Gap 5, Blood Urea Nitrogen 15, Creatinine 0.4L, Estimat Glomerular Filtration Rate , Glucose Level 120H, Osmolality 263L, Calcium Level 7.8L, Thyroid Stimulating Hormone (TSH) 2.816 11/29/18 04:00: Sodium Level 128L, Potassium Level 3.2L, Chloride Level 91L, Carbon Dioxide Level 32, Anion Gap 5, Blood Urea Nitrogen 15, Creatinine 0.4L, Estimat Glomerular Filtration Rate , Glucose Level 108H, Calcium Level 7.7L, White Blood Count 10.8, Red Blood Count 3.33L, Hemoglobin 8.6L, Hematocrit 25.8L, Mean Corpuscular Volume 78L, Mean Corpuscular Hemoglobin 26.0L, Mean Corpuscular Hemoglobin Concent 33.4, Red Cell Distribution Width 20.2H, Platelet Count 291, Mean Platelet Volume 5.5L, Neutrophils (%) (Auto) 77.0H, Lymphocytes (%) (Auto) 10.3L, Monocytes (%) (Auto) 6.7, Eosinophils (%) (Auto) 5.1H, Basophils (%) (Auto) 0.9, Total Bilirubin 0.3, Aspartate Amino Transf (AST /SGOT) 158H, Alanine Aminotransferase (ALT/SGPT) 105H, Alkaline Phosphatase 507H , Total Protein 4.9L, Albumin 0.9L, Globulin 4.0, Albumin/Globulin Ratio 0.2L, Cortisol AM Sample 15.5 Current Medications Medications (Trade) Dose Ordered Sig/Lupe Route PRN Reason Start Time Stop Time Status Last Admin Dose Admin Acetaminophen (Tylenol) 650 mg Q4H PRN GT Mild Pain/Temp > 100.5 11/09/18 05:00 12/09/18 04:59 11/24/18 21:50 Amlodipine Besylate (Norvasc) 10 mg DAILY GT 11/09/18 09:00 12/09/18 08:59 11/29/18 09:04 Bisacodyl (Dulcolax) 10 mg DAILY PRN RECTAL Constipation 11/09/18 05:00 12/09/18 04:59 Calcium Carbonate (Tums) 500 mg EVERY 8 HOURS GT 11/09/18 14:00 12/09/18 08:59 11/29/18 05:06 Chlorhexidine Gluconate (Corazon-Hex 2%) 1 applic DAILY@1999 TOPIC 11/12/18 20:00 12/12/18 19:59 11/28/18 20:05 Dextrose (Dextrose 50%) 25 ml Q30M PRN IV Hypoglycemia 11/09/18 04:45 12/09/18 04:44 Dextrose (Dextrose 50%) 50 ml Q30M PRN IV Hypoglycemia 11/09/18 04:45 12/09/18 04:44 11/09/18 09:09 Enoxaparin Sodium (Lovenox) 40 mg DAILY SUBQ 11/09/18 09:00 12/09/18 08:59 11/29/18 09:08 Famotidine (Pepcid) 20 mg EVERY 12 HOURS GT 11/09/18 21:00 12/09/18 08:59 11/29/18 09:04 Hydralazine HCl (Apresoline) 5 mg EVERY 8 HOURS GT 11/09/18 06:00 12/09/18 05:59 11/28/18 14:08 Insulin Aspart (NovoLOG) Q6HR SUBQ 11/09/18 06:00 12/09/18 05:59 11/29/18 05:07 Insulin Detemir (Levemir) 4 units EVERY 12 HOURS SUBQ 11/16/18 21:00 12/09/18 08:59 11/29/18 09:18 Labetalol HCl (Normodyne) 200 mg Q8HR GT 11/09/18 06:00 12/09/18 05:59 11/29/18 05:06 Lactulose (Cephulac) 10 gm THREE TIMES A DAY GT 11/27/18 18:00 12/27/18 12:59 11/29/18 09:22 Levetiracetam (Keppra) 1,500 mg Q12HR GT 11/09/18 09:00 12/09/18 08:59 11/29/18 09:05 Magnesium Hydroxide (Mom) 30 ml DAILY PRN GT Constipation 11/09/18 05:00 12/09/18 04:59 Magnesium Oxide (Mag-Ox 400mg) 400 mg EVERY 8 HOURS GT 11/09/18 14:00 12/09/18 08:59 11/29/18 05:06 Metronidazole (Flagyl) 500 mg EVERY 8 HOURS ORAL 11/28/18 14:00 12/05/18 13:59 11/29/18 05:06 Micafungin Sodium 100 mg/Sodium Chloride 100 ml @ 100 mls/hr Q24H IVPB 11/24/18 14:00 12/01/18 13:59 11/28/18 14:08 Ondansetron HCl (Zofran) 4 mg Q6H PRN GT Nausea & Vomiting 11/09/18 05:00 12/09/18 04:59 Phenobarbital (PHENobarbital) 60 mg BID GT 11/09/18 09:00 12/09/18 08:59 11/29/18 09:07 Phenytoin (Dilantin) 100 mg Q8HR GT 11/09/18 06:00 12/09/18 05:59 11/29/18 06:01 Polyethylene Glycol (Miralax) 17 gm DAILYPRN PRN GT Constipation 11/14/18 10:30 12/12/18 10:29 Polymyxin B Sulfate 192554 units/Dextrose 550 ml @ 550 mls/hr EVERY 12 HOURS IV 11/26/18 21:00 12/03/18 20:59 11/29/18 09:08 Sennosides (Senokot) 8.6 mg EVERY 12 HOURS GT 11/09/18 21:00 12/09/18 08:59 11/29/18 09:03 Sodium Chloride 1,000 ml @ 100 mls/hr Q10H IV 11/28/18 17:25 12/28/18 17:24 11/29/18 03:01 Vancomycin HCl (Vanco rx to dose) 1 ea DAILY PRN MISC Per rx protocol 11/28/18 11:45 12/28/18 11:44 Vancomycin HCl 1 gm/Dextrose 275 ml @ 183.708 mls/hr Q12HR@0400,1600 IVPB 11/28/18 16:00 12/03/18 15:59 11/29/18 03:03 Subjective ROS Limited/Unobtainable: No Allergies: Coded Allergies: Crayfish (Unverified Allergy, Unknown, 11/11/18) Uncoded Allergies: Crawfish (Allergy, Unknown, 11/09/18) Objective Last 24 Hour Vital Signs Date Time Temp Pulse Resp B/P (MAP) Pulse Ox O2 Delivery O2 Flow Rate FiO2 12/04/18 22:12 86 106/66 12/04/18 21:25 89 24 30 12/04/18 20:00 Mechanical Ventilator 12/04/18 20:00 30 12/04/18 20:00 97.7 85 26 119/72 (88) 100 12/04/18 19:27 74 27 30 12/04/18 19:08 78 12/04/18 17:15 79 24 30 12/04/18 16:13 86 27 30 12/04/18 16:00 97.6 84 24 107/64 (78) 100 12/04/18 16:00 87 12/04/18 16:00 30 12/04/18 16:00 Mechanical Ventilator 12/04/18 13:25 91 27 30 12/04/18 12:00 Mechanical Ventilator 12/04/18 12:00 30 12/04/18 12:00 80 12/04/18 12:00 97.3 82 28 95/60 (72) 100 12/04/18 11:30 83 28 30 12/04/18 09:28 84 129/56 12/04/18 09:04 84 30 30 12/04/18 08:00 97.1 80 28 129/56 (80) 100 12/04/18 08:00 Mechanical Ventilator 12/04/18 08:00 30 12/04/18 08:00 83 12/04/18 08:00 83 12/04/18 07:30 84 32 30 12/04/18 05:42 83 111/59 12/04/18 05:05 87 24 30 12/04/18 04:00 97.0 81 22 113/55 (74) 100 12/04/18 04:00 30 12/04/18 04:00 Mechanical Ventilator 12/04/18 03:43 81 12/04/18 02:47 88 26 30 12/04/18 00:30 77 22 30 12/04/18 00:00 Mechanical Ventilator 12/04/18 00:00 30 12/04/18 00:00 96.6 87 24 105/59 (74) 98 12/03/18 23:40 81 12/03/18 22:31 80 24 30 Intake and Output 12/03/18 12/04/18 18:59 06:59 Intake Total 1765.000 ml 685 ml Output Total 550 ml 400 ml Balance 1215.000 ml 285 ml IV Total 1215.000 ml Tube Feeding 520 ml 585 ml Other 30 ml 100 ml Output Urine Total 550 ml 400 ml # Bowel Movements 2 2 Laboratory Tests 12/04/18 03:30: White Blood Count 10.8, Red Blood Count 2.87L, Hemoglobin 7.6L, Hematocrit 22.7L , Mean Corpuscular Volume 79L, Mean Corpuscular Hemoglobin 26.5L, Mean Corpuscular Hemoglobin Concent 33.5, Red Cell Distribution Width 18.3H, Platelet Count 198, Mean Platelet Volume 7.3, Neutrophils (%) (Auto) , Lymphocytes (%) (Auto) , Monocytes (%) (Auto) , Eosinophils (%) (Auto) , Basophils (%) (Auto) , Sodium Level 125L, Potassium Level 3.7, Chloride Level 90L, Carbon Dioxide Level 27, Anion Gap 8, Blood Urea Nitrogen 18, Creatinine 0.5L, Estimat Glomerular Filtration Rate , Glucose Level 114H, Calcium Level 7.9L, Total Bilirubin 0.4, Aspartate Amino Transf (AST/SGOT) 43H, Alanine Aminotransferase (ALT/SGPT) 55, Alkaline Phosphatase 382H, Total Protein 5.2L, Albumin 1.5L, Globulin 3.7, Albumin/Globulin Ratio 0.4L 12/04/18 20:00: Sodium Level 128L, Potassium Level 3.7, Chloride Level 93L, Carbon Dioxide Level 28, Anion Gap 7, Blood Urea Nitrogen 22H, Creatinine 0.6, Estimat Glomerular Filtration Rate , Glucose Level 122H, Calcium Level 7.8L, Total Bilirubin 0.4, Aspartate Amino Transf (AST/SGOT) 33, Alanine Aminotransferase ( ALT/SGPT) 45, Alkaline Phosphatase 346H, Total Protein 4.7L, Albumin 1.3L, Globulin 3.4, Albumin/Globulin Ratio 0.4L Current Medications Medications (Trade) Dose Ordered Sig/Lupe Route PRN Reason Start Time Stop Time Status Last Admin Dose Admin Acetaminophen (Tylenol) 650 mg Q4H PRN GT Mild Pain/Temp > 100.5 11/09/18 05:00 12/09/18 04:59 11/24/18 21:50 Amlodipine Besylate (Norvasc) 5 mg DAILY GT 12/05/18 09:00 12/09/18 08:59 Bisacodyl (Dulcolax) 10 mg DAILY PRN RECTAL Constipation 11/09/18 05:00 12/09/18 04:59 Chlorhexidine Gluconate (Corazon-Hex 2%) 1 applic DAILY@1999 TOPIC 11/12/18 20:00 12/12/18 19:59 12/04/18 19:49 Dextrose (Dextrose 50%) 25 ml Q30M PRN IV Hypoglycemia 11/09/18 04:45 12/09/18 04:44 Dextrose (Dextrose 50%) 50 ml Q30M PRN IV Hypoglycemia 11/09/18 04:45 12/09/18 04:44 11/09/18 09:09 Enoxaparin Sodium (Lovenox) 40 mg DAILY SUBQ 11/09/18 09:00 12/09/18 08:59 12/04/18 08:58 Famotidine (Pepcid) 20 mg EVERY 12 HOURS GT 11/09/18 21:00 12/09/18 08:59 12/04/18 20:34 Furosemide (Lasix) 40 mg EVERY 12 HOURS IV 12/04/18 21:00 01/03/19 20:59 12/04/18 20:34 Insulin Aspart (NovoLOG) Q6HR SUBQ 11/09/18 06:00 12/09/18 05:59 12/04/18 12:09 Insulin Detemir (Levemir) 4 units EVERY 12 HOURS SUBQ 11/16/18 21:00 12/09/18 08:59 12/04/18 20:35 Labetalol HCl (Normodyne) 200 mg Q8HR GT 11/09/18 06:00 12/09/18 05:59 12/04/18 22:12 Lactulose (Cephulac) 10 gm THREE TIMES A DAY GT 11/27/18 18:00 12/27/18 12:59 12/04/18 17:34 Levetiracetam (Keppra) 1,500 mg Q12HR GT 11/09/18 09:00 12/09/18 08:59 12/04/18 20:34 Magnesium Hydroxide (Mom) 30 ml DAILY PRN GT Constipation 11/09/18 05:00 12/09/18 04:59 Ondansetron HCl (Zofran) 4 mg Q6H PRN GT Nausea & Vomiting 11/09/18 05:00 12/09/18 04:59 Phenobarbital (PHENobarbital) 60 mg BID GT 11/09/18 09:00 12/09/18 08:59 12/04/18 17:34 Phenytoin (Dilantin) 100 mg Q8HR GT 11/09/18 06:00 12/09/18 05:59 12/04/18 22:12 Polyethylene Glycol (Miralax) 17 gm DAILYPRN PRN GT Constipation 11/14/18 10:30 12/12/18 10:29 Sennosides (Senokot) 8.6 mg EVERY 12 HOURS GT 11/09/18 21:00 12/09/18 08:59 12/04/18 20:34 Eloy Vega MD Dec 04, 2018 22:14
[2018-12-05] VITALS: BP 101/62
[2018-12-05 04:00] VITALS: BP 110/66
[2018-12-05 04:54] LABS: HEMATOCRIT 19.7 % (37.0-47.0); MEAN CORPUSCULAR VOLUME 79 FL (80-99); PLATELET COUNT 166 K/UL (150-450); RED BLOOD COUNT 2.48 M/UL (4.20-5.40); RED CELL DISTRIBUTION WIDTH 17.8 % (11.6-14.8); WHITE BLOOD COUNT 10.5 K/UL (4.8-10.8)
[2018-12-05 05:11] LABS: HEMOGLOBIN 6.6 G/DL (12.0-16.0)
--- NOTE | 2018-12-05 05:18 | NUR ---
NURSE NOTES: Called Dr. Buck's office regarding hemoglobin level of 6.6 G/DL. Left message with automatic dry starch operator. Awaiting orders.
[2018-12-05 05:21] LABS: ALANINE AMINOTRANSFERASE 41 U/L (12-78); ALBUMIN 1.2 G/DL (3.4-5.0); ALBUMIN/GLOBULIN RATIO 0.3 (1.0-2.7); ALKALINE PHOSPHATASE 336 U/L (46-116); ANION GAP 8 mmol/L (5-15); ASPARTATE AMINO TRANSFERASE 30 U/L (15-37); BILIRUBIN,TOTAL 0.4 MG/DL (0.2-1.0); BLOOD UREA NITROGEN 21 mg/dL (7-18); CALCIUM 7.3 MG/DL (8.5-10.1); CARBON DIOXIDE 27 MMOL/L (21-32); CHLORIDE 117 MMOL/L (98-107); CREATININE 0.5 MG/DL (0.55-1.30); POTASSIUM 3.3 MMOL/L (3.5-5.1); SODIUM 152 MMOL/L (136-145)
[2018-12-05] MEDS: Magic Mouth Wash 60ml (Benadryl/Mylanta/Visc Lido) ORAL SCH ×3 (05:44→22:37)
[2018-12-05] MEDS: Phenytoin Susp 100mg/4ml GT SCH ×3 (05:44→22:35)
[2018-12-05] MEDS: Labetalol 200mg tab GT SCH ×3 (05:45→22:38)
[2018-12-05] MEDS: NovoLOG Insulin Flexpen SUBQ SCH ×3 (05:47→17:49)
--- NOTE | 2018-12-05 06:27 | NUR ---
NURSE NOTES: Second call to Dr. Buck's office was made regarding Hemoglobin and Potassium level.
--- NOTE | 2018-12-05 07:11 | NUR ---
NURSE NOTES: Received orders from Dr. Astudillo regarding Potassium, Hemoglobin, and Sodium.
--- NOTE | 2018-12-05 07:14 | NUR ---
RESPIRATORY NOTE: received pt on current vent orders with no signs of resp distress. pt is vent dependent and trached with shiley [address] trach is secured via trach tie/guard. aware and reported of skin wounds on neck, near stoma and ear. alarms are set and audible. will cont to monitor.
--- NOTE | 2018-12-05 07:17 | NUR ---
HAND-OFF: Report given to Radha DESHPANDE.
--- NOTE | 2018-12-05 07:18 | NUR ---
NURSE NOTES: Received report from CHARLEE Bhakta. Observed patient in bed, obtunded. On trach-vent with settings AC 14, TV 375, FiO2 30% and PEEP 5; no respiratory distress noted at this time. intact and patent with feeding infusing at prescribed rate, tolerating well. HOB elevated. Right upper arm PICC line intact and patent.Ospina catheter intact and draining well to gravity. No s/s of pain/distress at this time. Safety precautions in place, bed locked, alarmed, and in lowest position, padded side rails up x2, and call light left within reach. Will continue with plan of care.
[2018-12-05 08:00] VITALS: BP 130/71
--- NOTE | 2018-12-05 08:45 | Hematology/Onc Progress Note ---
Assessment/Plan Assessment/Plan # Anemia of chronic disease due to underlying chronic medical issues, multifactorial --> Anemia workup has been reviewed and cw acd --> No evidence of hemolysis is noted, peripheral smear has been reviewed. --> Hgb goal >7. Transfuse prn. --> hgb trend 9-->8-->7.5-->9.3->8.6-->8.4-->8.7->7.6-->6.6 --> Epogen or iron indication prn --> Medications have been reviewed --> low threshold for gi evaluation and occult is negative --> bone marrow biopsy is not indicated given the other more likely causes # Leukocytosis with sepsis secondary to UTI, GPC Staph Epidermidis bacteremia, Line associated infection - patient arrived to the Hospital with PICC --> as per ID consult appreciate Rec --> Continue antibiotics per ID: Continue Zosyn and vancomycin, anti fungal added--> kaykay/vanc, diflucan-->flagyl, vanc, polymyxin--> omid/flagyl/polym/vanc --> imaging noted --> now improved # Thrombocytosis is likely due to underlying reactive process --> if doesn't improve send off jak2 --> plt count 641k-->402k-->344-->275k-->280k-->250k-->255k # Elevated tumor marker, cea --> as per gi eval # Transaminitis --> trend lft's --> GI consult, apprec recs --> ab us: reviewed # Elevated troponin secondary to sepsis versus ACS --> as per Cardiology recs # Hypertension- improved --> sbp goal <150 # Vent dependent with trach --> as per Pulmonary recs # Hypokalemia # Dysphagia s/p gtube feeds # CHf hx with hyponatremia --> 1l fluid restriction # Dvt ppx with lovenox (ok to continue given occult neg) The timing of this note does not necessarily reflect the time of the patient was seen. GREATLY APPRECIATE CONSULTATION. Subjective Constitutional: Denies: no symptoms, chills, fever, malaise, weakness, other Cardiovascular: Denies: no symptoms, chest pain, edema, irregular heart rate, lightheadedness, palpitations, syncope, other Genitourinary: Denies: no symptoms, burning, discharge, frequency, flank pain, hematuria, incontinence, pain, urgency, other Neurologic/Psychiatric: Denies: no symptoms, anxiety, depressed, emotional problems, headache, numbness, paresthesia, pre-existing deficit, seizure, tingling, tremors, weakness, other Endocrine: Denies: no symptoms, excessive sweating, flushing, intolerance to cold, intolerance to heat, increased hunger, increased thirst, increased urine, unexplained weight gain, unexplained weight loss, other Allergies: Coded Allergies: Crayfish (Unverified Allergy, Unknown, 11/11/18) Uncoded Allergies: Crawfish (Allergy, Unknown, 11/09/18) Subjective 11/14: no events to report, labs relatively stable, hgb 8.9, on vent 11/15: no bleeding, no chills, labs reviewed, no major changes 11/16: cxr-->bilateral interstitial edema, vs stable, on abx, on vent, contact isolation 11/17: labs reviewed, on abx, vs stable, on vent, no distress 11/18: remains on gtube feeds, is on vent, on kaykay/vanc 11/20: no events, no bleeding, kaykay, vanc, diflucan, no f/c 11/21: remains on vent, gtube feeds, no major changes, no bleeding 11/22: ct abdomen pelvis w/contrast reviewed, vs stable, no acute events, labs reviewed, remains intubated, low grade fever 11/23: reviewed meds, abx have been changed, remains altered currently 11/24: labs reviewed, vs stable, med reviewed, no sob, no distress, on vent 11/25: remains on vent, no major events, on glucerna, fluid restriction 11/27: signed consent today, no f/c, no night sweats 11/28: no f/c, on abx, on vent, no distress, picc line in 11/29: no events to report, no f/c, no bleeding noted, on vent 11/30: vs stable, no f/c, on vent, obtunded, gtube feeds 12/01: no f/c, cxr-->pulmonary edema, meds reviewed, contact precaution, on vent , labs noted 12/03: ongoing gtube feeds, nava in place, on vent, no bleeding 12/04: remains obtunded, on trach/to vent, no bleeding today, labs noted 12/05: electrolytes repleted overnight, no major changes, prbc was ordered hgb 6.6 Objective Objective Current Medications Medications (Trade) Dose Ordered Sig/Lupe Route PRN Reason Start Time Stop Time Status Last Admin Dose Admin Acetaminophen (Tylenol) 650 mg Q4H PRN GT Mild Pain/Temp > 100.5 11/09/18 05:00 12/09/18 04:59 11/24/18 21:50 Amlodipine Besylate (Norvasc) 5 mg DAILY GT 12/05/18 09:00 12/09/18 08:59 Bisacodyl (Dulcolax) 10 mg DAILY PRN RECTAL Constipation 11/09/18 05:00 12/09/18 04:59 Chlorhexidine Gluconate (Corazon-Hex 2%) 1 applic DAILY@2000 TOPIC 11/12/18 20:00 12/12/18 19:59 12/04/18 19:49 Dextrose (Dextrose 50%) 25 ml Q30M PRN IV Hypoglycemia 11/09/18 04:45 12/09/18 04:44 Dextrose (Dextrose 50%) 50 ml Q30M PRN IV Hypoglycemia 11/09/18 04:45 12/09/18 04:44 11/09/18 09:09 Enoxaparin Sodium (Lovenox) 40 mg DAILY SUBQ 11/09/18 09:00 12/09/18 08:59 12/04/18 08:58 Famotidine (Pepcid) 20 mg EVERY 12 HOURS GT 11/09/18 21:00 12/09/18 08:59 12/04/18 20:34 Furosemide (Lasix) 40 mg EVERY 12 HOURS IV 12/04/18 21:00 01/03/19 20:59 12/04/18 20:34 Insulin Aspart (NovoLOG) Q6HR SUBQ 11/09/18 06:00 12/09/18 05:59 12/05/18 05:47 Insulin Detemir (Levemir) 4 units EVERY 12 HOURS SUBQ 11/16/18 21:00 12/09/18 08:59 12/04/18 20:35 Labetalol HCl (Normodyne) 200 mg Q8HR GT 11/09/18 06:00 12/09/18 05:59 12/05/18 05:45 Lactulose (Cephulac) 10 gm THREE TIMES A DAY GT 11/27/18 18:00 12/27/18 12:59 12/04/18 17:34 Levetiracetam (Keppra) 1,500 mg Q12HR GT 11/09/18 09:00 12/09/18 08:59 12/04/18 20:34 Magnesium Hydroxide (Mom) 30 ml DAILY PRN GT Constipation 11/09/18 05:00 12/09/18 04:59 Ondansetron HCl (Zofran) 4 mg Q6H PRN GT Nausea & Vomiting 11/09/18 05:00 12/09/18 04:59 Phenobarbital (PHENobarbital) 60 mg BID GT 11/09/18 09:00 12/09/18 08:59 12/04/18 17:34 Phenytoin (Dilantin) 100 mg Q8HR GT 11/09/18 06:00 12/09/18 05:59 12/05/18 05:44 Polyethylene Glycol (Miralax) 17 gm DAILYPRN PRN GT Constipation 11/14/18 10:30 12/12/18 10:29 Sennosides (Senokot) 8.6 mg EVERY 12 HOURS GT 11/09/18 21:00 12/09/18 08:59 12/04/18 20:34 Last 24 Hour Vital Signs Date Time Temp Pulse Resp B/P (MAP) Pulse Ox O2 Delivery O2 Flow Rate FiO2 12/05/18 07:11 75 23 30 12/05/18 05:45 75 117/58 12/05/18 05:22 75 25 30 12/05/18 04:00 30 12/05/18 04:00 Mechanical Ventilator 12/05/18 04:00 97.5 82 22 110/66 (81) 100 12/05/18 03:52 78 12/05/18 03:19 80 23 30 12/05/18 01:41 79 24 30 12/05/18 00:00 Mechanical Ventilator 12/05/18 00:00 97.3 84 26 101/62 (75) 100 12/05/18 00:00 30 12/04/18 23:35 81 12/04/18 23:10 84 23 30 12/04/18 22:12 86 106/66 12/04/18 21:25 89 24 30 12/04/18 20:00 Mechanical Ventilator 12/04/18 20:00 30 12/04/18 20:00 97.7 85 26 119/72 (88) 100 12/04/18 19:27 74 27 30 12/04/18 19:08 78 12/04/18 17:15 79 24 30 12/04/18 16:13 86 27 30 12/04/18 16:00 97.6 84 24 107/64 (78) 100 12/04/18 16:00 87 12/04/18 16:00 30 12/04/18 16:00 Mechanical Ventilator 12/04/18 13:25 91 27 30 12/04/18 12:00 Mechanical Ventilator 12/04/18 12:00 30 12/04/18 12:00 80 12/04/18 12:00 97.3 82 28 95/60 (72) 100 12/04/18 11:30 83 28 30 12/04/18 09:28 84 129/56 12/04/18 09:04 84 30 30 12/04/18 08:00 97.1 80 28 129/56 (80) 100 12/04/18 08:00 Mechanical Ventilator 12/04/18 08:00 30 12/04/18 08:00 83 12/04/18 08:00 83 12/04/18 07:30 84 32 30 12/04/18 05:42 83 111/59 12/04/18 05:05 87 24 30 12/04/18 04:00 97.0 81 22 113/55 (74) 100 12/04/18 04:00 30 12/04/18 04:00 Mechanical Ventilator 12/04/18 03:43 81 12/04/18 02:47 88 26 30 12/04/18 00:30 77 22 30 12/04/18 00:00 Mechanical Ventilator 12/04/18 00:00 30 12/04/18 00:00 96.6 87 24 105/59 (74) 98 12/03/18 23:40 81 12/03/18 22:31 80 24 30 12/03/18 22:05 79 104/63 12/03/18 20:48 71 25 30 12/03/18 20:00 30 12/03/18 20:00 Mechanical Ventilator 12/03/18 20:00 96.3 82 26 115/69 (84) 100 12/03/18 19:21 75 12/03/18 18:41 73 23 30 12/03/18 16:50 79 25 30 12/03/18 16:00 Mechanical Ventilator 12/03/18 16:00 30 12/03/18 16:00 97.0 78 26 115/58 (77) 97 12/03/18 15:23 71 12/03/18 14:58 70 24 30 12/03/18 14:32 71 112/55 12/03/18 12:57 71 26 30 12/03/18 12:00 96.5 71 26 112/55 (74) 100 12/03/18 12:00 30 12/03/18 12:00 Mechanical Ventilator 12/03/18 11:47 71 12/03/18 10:50 70 23 30 12/03/18 09:28 71 23 30 12/03/18 08:46 65 105/58 Intake and Output 12/04/18 12/05/18 19:00 07:00 Intake Total 910 ml 660 ml Output Total 550 ml 1200 ml Balance 360 ml -540 ml IV Total 210 ml 40 ml Tube Feeding 520 ml 520 ml Other 180 ml 100 ml Output Urine Total 550 ml 1200 ml # Bowel Movements 2 2 Labs Test 12/02/18 18:20 12/02/18 20:30 12/03/18 04:00 12/04/18 03:30 Stool Occult Blood Negative (NEGATIVE) Sodium Level 127 MMOL/L (136-145) 125 MMOL/L (136-145) 125 MMOL/L (136-145) Potassium Level 3.5 MMOL/L (3.5-5.1) 3.4 MMOL/L (3.5-5.1) 3.7 MMOL/L (3.5-5.1) Chloride Level 92 MMOL/L (98-107) 90 MMOL/L (98-107) 90 MMOL/L (98-107) Carbon Dioxide Level 31 MMOL/L (21-32) 29 MMOL/L (21-32) 27 MMOL/L (21-32) Anion Gap 5 mmol/L (5-15) 6 mmol/L (5-15) 8 mmol/L (5-15) Blood Urea Nitrogen 15 mg/dL (7-18) 16 mg/dL (7-18) 18 mg/dL (7-18) Creatinine 0.4 MG/DL (0.55-1.30) 0.4 MG/DL (0.55-1.30) 0.5 MG/DL (0.55-1.30) Estimat Glomerular Filtration Rate mL/min (>60) mL/min (>60) mL/min (>60) Glucose Level 107 MG/DL (74-106) 96 MG/DL (74-106) 114 MG/DL (74-106) Calcium Level 7.9 MG/DL (8.5-10.1) 7.8 MG/DL (8.5-10.1) 7.9 MG/DL (8.5-10.1) White Blood Count 11.7 K/UL (4.8-10.8) 10.8 K/UL (4.8-10.8) Red Blood Count 2.90 M/UL (4.20-5.40) 2.87 M/UL (4.20-5.40) Hemoglobin 7.6 G/DL (12.0-16.0) 7.6 G/DL (12.0-16.0) Hematocrit 22.2 % (37.0-47.0) 22.7 % (37.0-47.0) Mean Corpuscular Volume 77 FL (80-99) 79 FL (80-99) Mean Corpuscular Hemoglobin 26.2 PG (27.0-31.0) 26.5 PG (27.0-31.0) Mean Corpuscular Hemoglobin Concent 34.2 G/DL (32.0-36.0) 33.5 G/DL (32.0-36.0) Red Cell Distribution Width 19.6 % (11.6-14.8) 18.3 % (11.6-14.8) Platelet Count 203 K/UL (150-450) 198 K/UL (150-450) Mean Platelet Volume 6.6 FL (6.5-10.1) 7.3 FL (6.5-10.1) Neutrophils (%) (Auto) % (45.0-75.0) % (45.0-75.0) Lymphocytes (%) (Auto) % (20.0-45.0) % (20.0-45.0) Monocytes (%) (Auto) % (1.0-10.0) % (1.0-10.0) Eosinophils (%) (Auto) % (0.0-3.0) % (0.0-3.0) Basophils (%) (Auto) % (0.0-2.0) % (0.0-2.0) Differential Total Cells Counted 100 Neutrophils % (Manual) 79 % (45-75) Lymphocytes % (Manual) 5 % (20-45) Monocytes % (Manual) 9 % (1-10) Eosinophils % (Manual) 2 % (0-3) Basophils % (Manual) 0 % (0-2) Band Neutrophils 5 % (0-8) Platelet Estimate Adequate Platelet Morphology Normal Anisocytosis 1+ Microcytosis 1+ Total Bilirubin 0.4 MG/DL (0.2-1.0) 0.4 MG/DL (0.2-1.0) Aspartate Amino Transf (AST/SGOT) 69 U/L (15-37) 43 U/L (15-37) Alanine Aminotransferase (ALT/SGPT) 69 U/L (12-78) 55 U/L (12-78) Alkaline Phosphatase 475 U/L (46-116) 382 U/L (46-116) Total Protein 5.0 G/DL (6.4-8.2) 5.2 G/DL (6.4-8.2) Albumin 1.5 G/DL (3.4-5.0) 1.5 G/DL (3.4-5.0) Globulin 3.5 g/dL 3.7 g/dL Albumin/Globulin Ratio 0.4 (1.0-2.7) 0.4 (1.0-2.7) Test 12/04/18 20:00 12/05/18 03:25 Sodium Level 128 MMOL/L (136-145) 152 MMOL/L (136-145) Potassium Level 3.7 MMOL/L (3.5-5.1) 3.3 MMOL/L (3.5-5.1) Chloride Level 93 MMOL/L (98-107) 117 MMOL/L (98-107) Carbon Dioxide Level 28 MMOL/L (21-32) 27 MMOL/L (21-32) Anion Gap 7 mmol/L (5-15) 8 mmol/L (5-15) Blood Urea Nitrogen 22 mg/dL (7-18) 21 mg/dL (7-18) Creatinine 0.6 MG/DL (0.55-1.30) 0.5 MG/DL (0.55-1.30) Estimat Glomerular Filtration Rate mL/min (>60) mL/min (>60) Glucose Level 122 MG/DL (74-106) 103 MG/DL (74-106) Calcium Level 7.8 MG/DL (8.5-10.1) 7.3 MG/DL (8.5-10.1) Total Bilirubin 0.4 MG/DL (0.2-1.0) 0.4 MG/DL (0.2-1.0) Aspartate Amino Transf (AST/SGOT) 33 U/L (15-37) 30 U/L (15-37) Alanine Aminotransferase (ALT/SGPT) 45 U/L (12-78) 41 U/L (12-78) Alkaline Phosphatase 346 U/L (46-116) 336 U/L (46-116) Total Protein 4.7 G/DL (6.4-8.2) 4.7 G/DL (6.4-8.2) Albumin 1.3 G/DL (3.4-5.0) 1.2 G/DL (3.4-5.0) Globulin 3.4 g/dL 3.5 g/dL Albumin/Globulin Ratio 0.4 (1.0-2.7) 0.3 (1.0-2.7) White Blood Count 10.5 K/UL (4.8-10.8) Red Blood Count 2.48 M/UL (4.20-5.40) Hemoglobin 6.6 G/DL (12.0-16.0) Hematocrit 19.7 % (37.0-47.0) Mean Corpuscular Volume 79 FL (80-99) Mean Corpuscular Hemoglobin 26.7 PG (27.0-31.0) Mean Corpuscular Hemoglobin Concent 33.8 G/DL (32.0-36.0) Red Cell Distribution Width 17.8 % (11.6-14.8) Platelet Count 166 K/UL (150-450) Mean Platelet Volume 7.0 FL (6.5-10.1) Neutrophils (%) (Auto) % (45.0-75.0) Lymphocytes (%) (Auto) % (20.0-45.0) Monocytes (%) (Auto) % (1.0-10.0) Eosinophils (%) (Auto) % (0.0-3.0) Basophils (%) (Auto) % (0.0-2.0) Height (Feet): 5 Height (Inches): 8.00 Weight (Pounds): 208 Objective Physical Exam: Vitals: reviewed Gen: NAD HEENT: normocephalic, atraumatic Neck: non-tender, normal alignment ++ vent/trach Respiratory: normal breath sounds bilaterally CV: normal peripheral pulses, rrr Abdomen: normal bowel sounds, soft, nontender +gtube Extremities: 1-2+ edema, normal range of motion Yonathan Hernandez MD Dec 05, 2018 08:45
[2018-12-05] MEDS: PHENobarbital Elixir 30mg/7.5ml GT SCH ×2 (08:54→17:50)
[2018-12-05] MEDS: Enoxaparin 40mg Inj SUBQ SCH (08:54)
[2018-12-05] MEDS: Sennosides 8.6mg tab GT SCH ×2 (08:55→20:27)
[2018-12-05] MEDS: levETIRAcetam 500mg/5ml Liquid GT SCH ×2 (08:55→21:41)
[2018-12-05] MEDS: Lactulose 10gm/15ml UDC GT SCH ×3 (09:01→17:50)
[2018-12-05] MEDS: Levemir Flexpen SUBQ SCH ×2 (09:08→21:40)
--- NOTE | 2018-12-05 09:18 | General Progress Note ---
Assessment/Plan Problem List: (1) Gram-negative pneumonia ICD Codes: J15.6 - Pneumonia due to other Gram-negative bacteria SNOMED: 856752724 (2) MRSA (methicillin resistant staphylococcus aureus) pneumonia ICD Codes: J15.212 - Pneumonia due to Methicillin resistant Staphylococcus aureus SNOMED: 570504697746423 (3) Fever ICD Codes: R50.9 - Fever, unspecified SNOMED: 840986943 (4) UTI (urinary tract infection) ICD Codes: N39.0 - Urinary tract infection, site not specified SNOMED: 44774541 (5) Tracheostomy dependence ICD Codes: Z93.0 - Tracheostomy status SNOMED: 998602837 (6) Ventilator dependence ICD Codes: Z99.11 - Dependence on respirator [ventilator] status SNOMED: 834885810 (7) Protein calorie malnutrition ICD Codes: E46 - Unspecified protein-calorie malnutrition SNOMED: 408620059 (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 SNOMED: 90423452 (9) Drug rash ICD Codes: L27.0 - Generalized skin eruption due to drugs and medicaments taken internally SNOMED: 82063554 (10) Line sepsis ICD Codes: T85.79XA - Infection and inflammatory reaction due to other internal prosthetic devices, implants and grafts, initial encounter; A41.9 - Sepsis, unspecified organism SNOMED: 01495988, 892035677 (11) Bacteremia ICD Codes: R78.81 - Bacteremia SNOMED: 5209725 (12) Hyponatremia ICD Codes: E87.1 - Hypo-osmolality and hyponatremia SNOMED: 14840576 (13) Sepsis ICD Codes: A41.9 - Sepsis, unspecified organism SNOMED: 50362111 (14) Seizure disorder ICD Codes: G40.909 - Epilepsy, unspecified, not intractable, without status epilepticus SNOMED: 921088291 (15) Diabetes ICD Codes: E11.9 - Type 2 diabetes mellitus without complications SNOMED: 46198040 (16) Colon adenocarcinoma ICD Codes: C18.9 - Malignant neoplasm of colon, unspecified SNOMED: 010776392 (17) Anoxic brain damage ICD Codes: G93.1 - Anoxic brain damage, not elsewhere classified SNOMED: 922958904 (18) Decubitus skin ulcer ICD Codes: L89.90 - Pressure ulcer of unspecified site, unspecified stage SNOMED: 964878238 Status: stable Assessment/Plan: 78-year-old female who is trach dependent who was brought in by intermediate for sepsis and found to have UTI and bacteremia. 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 fungal uti vs colonization ID consult appreciate Rec Vancomycin and Meropenem started 11/16 ( Zosyn stopped) , fungal coverage with Diflucan added 11/18. Repeat sputum cultures with RAULTELLA PLANTICOA and PROVIDENCIA STUARTI resistant to most antibiotics Developed morbilliform rash on meropenem, this was stopped and rash is better, has persistent fevers. Started Polymyxin and flagyl 11/21. Added vancomycin and micafungin on 11/24. NOW OFF all antibiotics and afebrile, no leukocytosis picc cultures, no growth so far. repeat sputum cultures Discussed with daughter at bedside. CT abdomen pelvis shows no acute process Removed PICC and place new line 11/13/18 Echo to eval for vegetation: negative Chest x-ray reviewed, no change #hyponatremia, hypotonic. Intravascularly depleted vs SIADH s/p hypertonic saline which has not corrected sodium. Serum Cortisol and TSH WNL , valproic acid stopped. Urea unavailable at the hospital. Free water stopped via GT. urine osmol, serum urea, urine sodium reviewed Resumed lasix 40mg BID nephrology consult with Dr. Diana Sommers. # Transaminitis - worsening, meds vs passive congestion - trend lft's - GI consult, appreciate recs - ab us: reviewed - hep panel negative #Elevated troponin secondary to sepsis versus ACS Cardiology consult, appreciate recs Medications per cardiology #Microcytic anemia- mixed anemia of chronic inflammation and iron deficiency. Start ferrous sulfate TID , transfused 1 uprbc 11/27. and another unit prbc today 12/05. #Hypertension- improved Continue current medications, hydralazine as needed hypertension. Amlodipine dose reduced due to borderline BP #Vent dependent Pulmonary consult, appreciate recs Vent management per pulmonary #Hypokalemia, hypophosphatemia, hypomagnesemia Replace, continue to monitor # Chronic tongue wound Supportive care On examination the patient has a sharp lower incisor present that is likely the culprit for the tongue laceration when she was intubated in the prior hospitalization at [facility] OMFS consultation Dr. Benavides completed ( no note left ) and I spoke with him over the phone after the visit. He does not recommend any surgery. ONLY bite block MOLT if available to decompress the tongue and get the remainder teeth out of the tongue way. Keep moisture in the lips and tongue. ENT consult difficult to obtain- pending # History of mood disorder Seen by psychiatry and on Depakote. Level was checked # Seizure history - Discussed with Dr. Eric who knew the patient from [facility] and confirmed that she did have seizure activity and was on multiple AED regimen. - Will continue Depakote ( 28 level ) and (Phenytoin 4.3 ) - no active seizure activity at this time. Keep current dose. - Both Dr. Eric and Mariana not available to come to [facility] for consult and not acute need at this time. #Diabetes Mellitus, controlled - glucose noted in the 90-110's - Decreased Levemir to 4 units q 12 hours # Disposition - SNF when cleared by ID. Full code I discussed goals of care and current condition with daughter at bedside again. She wants mom to be transferred to [facility]. I spent 15 minutes at bedside discussing goals of care with daughter. prognosis guarded timing of this note may not reflect time of encounter. I spent 40 minutes on this encounter. Great than 50 percent spent of care planning. Subjective Date patient seen: Dec 05, 2018 ROS Limited/Unobtainable: Yes Allergies: Coded Allergies: Crayfish (Unverified Allergy, Unknown, 11/11/18) Uncoded Allergies: Crawfish (Allergy, Unknown, 11/09/18) Subjective obtunded on vent, afebrile off antibiotics persistent hyponatremia keeping patient in the hospital Objective Last 24 Hour Vital Signs Date Time Temp Pulse Resp B/P (MAP) Pulse Ox O2 Delivery O2 Flow Rate FiO2 12/05/18 09:00 73 130/71 12/05/18 08:55 70 21 30 12/05/18 08:00 98.7 73 24 130/71 (90) 100 12/05/18 07:11 75 23 30 12/05/18 05:45 75 117/58 12/05/18 05:22 75 25 30 12/05/18 04:00 30 12/05/18 04:00 Mechanical Ventilator 9/17/19 04:00 97.5 82 22 110/66 (81) 100 12/05/18 03:52 78 12/05/18 03:19 80 23 30 12/05/18 01:41 79 24 30 12/05/18 00:00 Mechanical Ventilator 12/05/18 00:00 97.3 84 26 101/62 (75) 100 12/05/18 00:00 30 12/04/18 23:35 81 12/04/18 23:10 84 23 30 12/04/18 22:12 86 106/66 12/04/18 21:25 89 24 30 12/04/18 20:00 Mechanical Ventilator 12/04/18 20:00 30 12/04/18 20:00 97.7 85 26 119/72 (88) 100 12/04/18 19:27 74 27 30 12/04/18 19:08 78 12/04/18 17:15 79 24 30 12/04/18 16:13 86 27 30 12/04/18 16:00 97.6 84 24 107/64 (78) 100 12/04/18 16:00 87 12/04/18 16:00 30 12/04/18 16:00 Mechanical Ventilator 12/04/18 13:25 91 27 30 12/04/18 12:00 Mechanical Ventilator 12/04/18 12:00 30 12/04/18 12:00 80 12/04/18 12:00 97.3 82 28 95/60 (72) 100 12/04/18 11:30 83 28 30 12/04/18 09:28 84 129/56 Intake and Output 12/04/18 12/05/18 19:00 07:00 Intake Total 910 ml 660 ml Output Total 550 ml 1200 ml Balance 360 ml -540 ml IV Total 210 ml 40 ml Tube Feeding 520 ml 520 ml Other 180 ml 100 ml Output Urine Total 550 ml 1200 ml # Bowel Movements 2 2 Laboratory Tests 12/04/18 20:00: Sodium Level 128L, Potassium Level 3.7, Chloride Level 93L, Carbon Dioxide Level 28, Anion Gap 7, Blood Urea Nitrogen 22H, Creatinine 0.6, Estimat Glomerular Filtration Rate , Glucose Level 122H, Calcium Level 7.8L, Total Bilirubin 0.4, Aspartate Amino Transf (AST/SGOT) 33, Alanine Aminotransferase ( ALT/SGPT) 45, Alkaline Phosphatase 346H, Total Protein 4.7L, Albumin 1.3L, Globulin 3.4, Albumin/Globulin Ratio 0.4L 12/05/18 03:25: Sodium Level 152#H, Potassium Level 3.3L, Chloride Level 117H, Carbon Dioxide Level 27, Anion Gap 8, Blood Urea Nitrogen 21H, Creatinine 0.5L, Estimat Glomerular Filtration Rate , Glucose Level 103, Calcium Level 7.3L, Total Bilirubin 0.4, Aspartate Amino Transf (AST/SGOT) 30, Alanine Aminotransferase ( ALT/SGPT) 41, Alkaline Phosphatase 336H, Total Protein 4.7L, Albumin 1.2L, Globulin 3.5, Albumin/Globulin Ratio 0.3L, White Blood Count 10.5, Red Blood Count 2.48L, Hemoglobin 6.6*L, Hematocrit 19.7L, Mean Corpuscular Volume 79L, Mean Corpuscular Hemoglobin 26.7L, Mean Corpuscular Hemoglobin Concent 33.8, Red Cell Distribution Width 17.8H, Platelet Count 166, Mean Platelet Volume 7.0 , Neutrophils (%) (Auto) , Lymphocytes (%) (Auto) , Monocytes (%) (Auto) , Eosinophils (%) (Auto) , Basophils (%) (Auto) , Neutrophils % (Manual) [Pending] , Lymphocytes % (Manual) [Pending], Platelet Estimate [Pending], Platelet Morphology [Pending] Height (Feet): 5 Height (Inches): 8.00 Weight (Pounds): 208 Objective General Appearance: no apparent distress, other - unresponsive on vent EENT: PERRL/EOMI, other - enlarged tongue protruding, lower lip severely swollen Neck: supple Cardiovascular: normal rate, regular rhythm Respiratory/Chest: lungs clear Abdomen: soft Neurologic: unresponsive Skin: Morbilliform rash to bilateral upper extremities and thighs Neftaly Walters M.D. Dec 05, 2018 09:17
--- NOTE | 2018-12-05 11:03 | NUR ---
NUTRITIONAL ASSISTANTPARAMEDIC SI; RESP FAILURE TRACH/VENT DEPENDENT, ANEMIA,HYPERNATREMIA T. 98.7 HR 73 RR 24 B/P 130/74 AC 14 TV 375 FIO2 305 PEEP 4 NA 152 H/H 6.6/19.7 K 3.3 BUN 21 ALK PHOS 336 ALB 1.2 BANDS 16 IS: LASIX IV LOVENOX SUBC KEPPRA GT LACTULOSE GT TRANSFUSE PRBC'S STEP DOWN STATUS
--- NOTE | 2018-12-05 11:06 | GI Progress Note ---
Assessment/Plan Problems: (1) Abnormal LFTs ICD Codes: R94.5 - Abnormal results of liver function studies SNOMED: 671504485 (2) Decubitus skin ulcer ICD Codes: L89.90 - Pressure ulcer of unspecified site, unspecified stage SNOMED: 306299257 (3) Protein calorie malnutrition ICD Codes: E46 - Unspecified protein-calorie malnutrition SNOMED: 920762947 (4) Colon adenocarcinoma ICD Codes: C18.9 - Malignant neoplasm of colon, unspecified SNOMED: 728764581 (5) Sepsis ICD Codes: A41.9 - Sepsis, unspecified organism SNOMED: 90365552 (6) Tracheostomy dependence ICD Codes: Z93.0 - Tracheostomy status SNOMED: 326816119 (7) Gastrostomy in place ICD Codes: Z93.1 - Gastrostomy status SNOMED: 36665679, 44587685, 380294483 Status: stable Status Narrative Discussed with Dr. Humphries. Assessment/Plan Assessment - Iron deficiency anemia - abnormal LFT - ? meds, passive congestion - dysphagia, s/p GT - Resp, failure, s/p Trach - hepatitis panel negative - Hgb drop today Recommendations - add additional OB stool r/o GI bleed - Continue TF - Monitor LFT - follow CBC - Conservative approach given poor health - CT and us reviewed The patient was seen and examined at bedside and all new and available data was reviewed in the patients chart. I agree with the above findings, impression and plan. (Patient seen earlier today. Signature stamp does not reflect patient encounter time.). - Casper Humphries MD Subjective Subjective limited Objective Last 24 Hour Vital Signs Date Time Temp Pulse Resp B/P (MAP) Pulse Ox O2 Delivery O2 Flow Rate FiO2 12/05/18 11:03 71 22 30 12/05/18 09:00 73 130/71 12/05/18 08:55 70 21 30 12/05/18 08:02 73 12/05/18 08:00 30 12/05/18 08:00 Mechanical Ventilator 12/05/18 08:00 98.7 73 24 130/71 (90) 100 12/05/18 07:11 75 23 30 12/05/18 05:45 75 117/58 12/05/18 05:22 75 25 30 12/05/18 04:00 30 12/05/18 04:00 Mechanical Ventilator 12/05/18 04:00 97.5 82 22 110/66 (81) 100 12/05/18 03:52 78 12/05/18 03:19 80 23 30 12/05/18 01:41 79 24 30 12/05/18 00:00 Mechanical Ventilator 12/05/18 00:00 97.3 84 26 101/62 (75) 100 12/05/18 00:00 30 12/04/18 23:35 81 12/04/18 23:10 84 23 30 12/04/18 22:12 86 106/66 12/04/18 21:25 89 24 30 12/04/18 20:00 Mechanical Ventilator 12/04/18 20:00 30 12/04/18 20:00 97.7 85 26 119/72 (88) 100 12/04/18 19:27 74 27 30 12/04/18 19:08 78 12/04/18 17:15 79 24 30 12/04/18 16:13 86 27 30 12/04/18 16:00 97.6 84 24 107/64 (78) 100 12/04/18 16:00 87 12/04/18 16:00 30 12/04/18 16:00 Mechanical Ventilator 12/04/18 13:25 91 27 30 12/04/18 12:00 Mechanical Ventilator 12/04/18 12:00 30 12/04/18 12:00 80 12/04/18 12:00 97.3 82 28 95/60 (72) 100 12/04/18 11:30 83 28 30 Intake and Output 12/04/18 12/05/18 19:00 07:00 Intake Total 910 ml 725 ml Output Total 550 ml 1200 ml Balance 360 ml -475 ml IV Total 210 ml 40 ml Tube Feeding 520 ml 585 ml Other 180 ml 100 ml Output Urine Total 550 ml 1200 ml # Bowel Movements 2 2 Laboratory Tests Test 12/04/18 20:00 12/05/18 03:25 12/05/18 10:40 Sodium Level 128 MMOL/L (136-145) L 152 MMOL/L (136-145) #H Pending Potassium Level 3.7 MMOL/L (3.5-5.1) 3.3 MMOL/L (3.5-5.1) L Pending Chloride Level 93 MMOL/L (98-107) L 117 MMOL/L (98-107) H Pending Carbon Dioxide Level 28 MMOL/L (21-32) 27 MMOL/L (21-32) Pending Anion Gap 7 mmol/L (5-15) 8 mmol/L (5-15) Blood Urea Nitrogen 22 mg/dL (7-18) H 21 mg/dL (7-18) H Pending Creatinine 0.6 MG/DL (0.55-1.30) 0.5 MG/DL (0.55-1.30) L Pending Estimat Glomerular Filtration Rate mL/min (>60) mL/min (>60) Pending Glucose Level 122 MG/DL (74-106) H 103 MG/DL (74-106) Pending Calcium Level 7.8 MG/DL (8.5-10.1) L 7.3 MG/DL (8.5-10.1) L Pending Total Bilirubin 0.4 MG/DL (0.2-1.0) 0.4 MG/DL (0.2-1.0) Aspartate Amino Transf (AST/SGOT) 33 U/L (15-37) 30 U/L (15-37) Alanine Aminotransferase (ALT/SGPT) 45 U/L (12-78) 41 U/L (12-78) Alkaline Phosphatase 346 U/L (46-116) H 336 U/L (46-116) H Total Protein 4.7 G/DL (6.4-8.2) L 4.7 G/DL (6.4-8.2) L Albumin 1.3 G/DL (3.4-5.0) L 1.2 G/DL (3.4-5.0) L Globulin 3.4 g/dL 3.5 g/dL Albumin/Globulin Ratio 0.4 (1.0-2.7) L 0.3 (1.0-2.7) L White Blood Count 10.5 K/UL (4.8-10.8) Red Blood Count 2.48 M/UL (4.20-5.40) L Hemoglobin 6.6 G/DL (12.0-16.0) *L Hematocrit 19.7 % (37.0-47.0) L Mean Corpuscular Volume 79 FL (80-99) L Mean Corpuscular Hemoglobin 26.7 PG (27.0-31.0) L Mean Corpuscular Hemoglobin Concent 33.8 G/DL (32.0-36.0) Red Cell Distribution Width 17.8 % (11.6-14.8) H Platelet Count 166 K/UL (150-450) Mean Platelet Volume 7.0 FL (6.5-10.1) Neutrophils (%) (Auto) % (45.0-75.0) Lymphocytes (%) (Auto) % (20.0-45.0) Monocytes (%) (Auto) % (1.0-10.0) Eosinophils (%) (Auto) % (0.0-3.0) Basophils (%) (Auto) % (0.0-2.0) Differential Total Cells Counted 100 Neutrophils % (Manual) 64 % (45-75) Lymphocytes % (Manual) 5 % (20-45) L Monocytes % (Manual) 14 % (1-10) H Eosinophils % (Manual) 0 % (0-3) Basophils % (Manual) 0 % (0-2) Myelocytes % 1 % (0-0) H Band Neutrophils 16 % (0-8) H Platelet Estimate Adequate Platelet Morphology Normal Hypochromasia 1+ Anisocytosis 1+ Microcytosis 2+ Height (Feet): 5 Height (Inches): 8.00 Weight (Pounds): 208 General Appearance: no apparent distress Cardiovascular: normal rate Respiratory/Chest: normal breath sounds, no respiratory distress Abdominal Exam: normal bowel sounds, non tender, soft, GT site - c/d/i Extremities: non-tender Aysha Sykes NP Dec 05, 2018 11:06
[2018-12-05 11:26] LABS: ANION GAP 8 mmol/L (5-15); BLOOD UREA NITROGEN 22 mg/dL (7-18); CALCIUM 8.2 MG/DL (8.5-10.1); CARBON DIOXIDE 26 MMOL/L (21-32); CHLORIDE 94 MMOL/L (98-107); CREATININE 0.6 MG/DL (0.55-1.30); POTASSIUM 3.7 MMOL/L (3.5-5.1); SODIUM 128 MMOL/L (136-145)
--- NOTE | 2018-12-05 11:43 | NUR ---
NURSE NOTES: Spoke with daughter over the phone, informed about blood transfusion ongoing at this time. Verbalized understanding.
[2018-12-05 12:00] VITALS: BP 104/65
--- NOTE | 2018-12-05 12:01 | Infectious Diseases Prog Note ---
Assessment/Plan Assessment/Plan ASSESSMENT AND PLAN: 1. 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 fungal uti vs colonization, ? new line infection , ? new nosocomial infection - s/p polymyxin and flagyl, vancomycin and micafungin - fevers resolved, leukocytosis resolved - previous picc line changed - CT scan without abscess or diverticulitis - sacral wound management per surgery - rash improved/stable - ? enlarged tongue - ENT evaluation if possible - monitor clinically off abx 2. Trach-vent respiratory failure. 3. Dysphagia, G-tube. 4. Anemia. 5. Diabetes. 6. Hypertension. 7. Large tongue. 8. Anoxic brain injury. 9. Weakness. 10. Poorly responsive. 11. History of seizures. 12. History of colon adenocarcinoma. 13. Skin care protocol. 14. Allergy to crawfish. 15. Social history negative. 16. Family history noncontributory. 17. MAR was noted. 18. Case was discussed with RN. 19. Continue treatment per primary consultants. 20. Orders were ordered, entered, and noted. 21. Continue wound care protocol. 22. Continue blood sugar and blood pressure treatment per primary consultants for diabetes and hypertension. 23. vre colonization and isolation Subjective Constitutional: Reports: other; Denies: fever HEENT: Reports: congestion Respiratory: Reports: shortness of breath Gastrointestinal/Abdominal: Denies: nausea, vomiting, diarrhea Genitourinary: Reports: other - + nava Neurologic: Reports: other - weak, poorly responsive Psychiatric: Reports: other - NA Skin: Reports: rash - stable Hematologic: Denies: bleeding Musculoskeletal: Reports: other - NA Allergies: Coded Allergies: Crayfish (Unverified Allergy, Unknown, 11/11/18) Uncoded Allergies: Crawfish (Allergy, Unknown, 11/09/18) Objective Vital Signs Last 24 Hour Vital Signs Date Time Temp Pulse Resp B/P (MAP) Pulse Ox O2 Delivery O2 Flow Rate FiO2 12/05/18 11:03 71 22 30 12/05/18 09:00 73 130/71 12/05/18 08:55 70 21 30 12/05/18 08:02 73 12/05/18 08:00 30 12/05/18 08:00 Mechanical Ventilator 12/05/18 08:00 98.7 73 24 130/71 (90) 100 12/05/18 07:11 75 23 30 12/05/18 05:45 75 117/58 12/05/18 05:22 75 25 30 12/05/18 04:00 30 12/05/18 04:00 Mechanical Ventilator 12/05/18 04:00 97.5 82 22 110/66 (81) 100 12/05/18 03:52 78 12/05/18 03:19 80 23 30 12/05/18 01:41 79 24 30 12/05/18 00:00 Mechanical Ventilator 12/05/18 00:00 97.3 84 26 101/62 (75) 100 12/05/18 00:00 30 12/04/18 23:35 81 12/04/18 23:10 84 23 30 12/04/18 22:12 86 106/66 12/04/18 21:25 89 24 30 12/04/18 20:00 Mechanical Ventilator 12/04/18 20:00 30 12/04/18 20:00 97.7 85 26 119/72 (88) 100 12/04/18 19:27 74 27 30 12/04/18 19:08 78 12/04/18 17:15 79 24 30 12/04/18 16:13 86 27 30 12/04/18 16:00 97.6 84 24 107/64 (78) 100 12/04/18 16:00 87 12/04/18 16:00 30 12/04/18 16:00 Mechanical Ventilator 12/04/18 13:25 91 27 30 12/04/18 12:00 Mechanical Ventilator 12/04/18 12:00 30 12/04/18 12:00 80 12/04/18 12:00 97.3 82 28 95/60 (72) 100 Height (Feet): 5 Height (Inches): 8.00 Weight (Pounds): 208 General Appearance: other - + trach and vent, poorly responisve HEENT: normocephalic, atraumatic, anicteric, no JVD, status post trach Respiratory/Chest: crackles/rales, rhonchi - bilaterally, other - clearer bilateral Cardiovascular: normal rate, regular rhythm, no gallop/murmur Abdomen: normal bowel sounds, soft, non tender, no organomegaly, non distended Genitourinary: other - + nava - urine slt cloudy Extremities: no cyanosis Skin: rash - no change in rash Neurologic/Psychiatric: other - trach and vent, poorly responsive Lymphatic: no neck adenopathy Musculoskeletal: no effusion Objective 11/11/18 - chest x-ray - IMPRESSION: 1. Hypoventilatory lungs. Elevated right hemidiaphragm. Slightly improved vascular congestion. Similar bibasilar lung atelectasis and airspace disease. 2. Query right pleural effusion. 2-D echo - no vegetations mentioned, report noted sacral x-ray - no osteo mentioned, report noted 11/14/18 - Technique: One view of the chest Comparison: November 13, 2018 post PICC radiograph Findings: Bilateral interstitial and alveolar edema versus infiltrates appear slightly worse. There is increasing obscuration of left hemidiaphragm, may reflect increasing pleural fluid as well. The heart remains enlarged. Previously demonstrated left arm PICC has been removed. Stable right arm PICC. Impression: Slightly worsening bilateral interstitial and airspace infiltrates versus edema, over one day 11/16/18 - chest x-ray Procedure: XRAY Chest 1v Indication: Dyspnea Technique: One view of the chest Comparison: November 14, 2018 Findings: Bilateral interstitial edema persists. Tracheostomy, right arm PICC remain. The heart is enlarged. Impression: Bilateral interstitial edema, unchanged over [address] abdomen and pelvis: Impression: No definite acute process Diverticulosis. No evidence of diverticulitis Extensive edema of the subcutaneous fat. 2 cm focal fluid collection/edema seen within the incision Moderate amount retained dense stool. Correlate with any clinical history of constipation Hiatal hernia. Gastrostomy Left renal parapelvic cysts Apparent prior hysterectomy Chest x-ray - 11/23/18 - Technique: One view of the chest Comparison: 11/20/2018 Findings: Less optimal inspiration currently, with resultant crowding of the bronchovascular markings. Interstitial congestion is probably not significantly changed, allowing for differences in exposure technique. Tracheostomy remains. Right arm PICC remains. Impression: Unchanged, over 3 days, findings as above. Chest x-ray - 11/26/18 - IMPRESSION: 1. Rotated film. Increased hazy opacity at the left lung and left retrocardiac opacity. 2. Decreased left pleural effusion. 3. Elevated right hemidiaphragm with probable pleural effusion and consolidation, similar. Chest x-ray - 11/30/18 - Findings: Pulmonary edema again demonstrated. PICC line is stable as well as tracheostomy. Heart is enlarged. Basilar atelectasis suspected. The diaphragm is poorly seen. Underlying parenchymal infiltrate or other disease and/or pleural effusion may be present. IMPRESSION: Pulmonary edema Microbiology Date/Time Source Procedure Growth Status 11/24/18 15:10 Blood Blood Culture - Final NO GROWTH AFTER 5 DAYS Complete 11/26/18 09:00 Sputum Gram Stain - Final Complete 11/26/18 09:00 Sputum Culture - Final Acinetobacter Baumanii - Mdr Providencia Stuartii Complete 11/24/18 13:45 Indwelling Cath Urine Culture - Final NO GROWTH AFTER 48 HOURS Complete 11/13/18 21:55 Catheter Site Catheter Tip Culture - Final Escherichia Coli Complete Laboratory Tests Test 12/04/18 20:00 12/05/18 03:25 12/05/18 10:40 Sodium Level 128 MMOL/L (136-145) L 152 MMOL/L (136-145) #H 128 MMOL/L (136-145) #L Potassium Level 3.7 MMOL/L (3.5-5.1) 3.3 MMOL/L (3.5-5.1) L 3.7 MMOL/L (3.5-5.1) Chloride Level 93 MMOL/L (98-107) L 117 MMOL/L (98-107) H 94 MMOL/L (98-107) L Carbon Dioxide Level 28 MMOL/L (21-32) 27 MMOL/L (21-32) 26 MMOL/L (21-32) Anion Gap 7 mmol/L (5-15) 8 mmol/L (5-15) 8 mmol/L (5-15) Blood Urea Nitrogen 22 mg/dL (7-18) H 21 mg/dL (7-18) H 22 mg/dL (7-18) H Creatinine 0.6 MG/DL (0.55-1.30) 0.5 MG/DL (0.55-1.30) L 0.6 MG/DL (0.55-1.30) Estimat Glomerular Filtration Rate mL/min (>60) mL/min (>60) mL/min (>60) Glucose Level 122 MG/DL (74-106) H 103 MG/DL (74-106) 139 MG/DL (74-106) H Calcium Level 7.8 MG/DL (8.5-10.1) L 7.3 MG/DL (8.5-10.1) L 8.2 MG/DL (8.5-10.1) L Total Bilirubin 0.4 MG/DL (0.2-1.0) 0.4 MG/DL (0.2-1.0) Aspartate Amino Transf (AST/SGOT) 33 U/L (15-37) 30 U/L (15-37) Alanine Aminotransferase (ALT/SGPT) 45 U/L (12-78) 41 U/L (12-78) Alkaline Phosphatase 346 U/L (46-116) H 336 U/L (46-116) H Total Protein 4.7 G/DL (6.4-8.2) L 4.7 G/DL (6.4-8.2) L Albumin 1.3 G/DL (3.4-5.0) L 1.2 G/DL (3.4-5.0) L Globulin 3.4 g/dL 3.5 g/dL Albumin/Globulin Ratio 0.4 (1.0-2.7) L 0.3 (1.0-2.7) L White Blood Count 10.5 K/UL (4.8-10.8) Red Blood Count 2.48 M/UL (4.20-5.40) L Hemoglobin 6.6 G/DL (12.0-16.0) *L Hematocrit 19.7 % (37.0-47.0) L Mean Corpuscular Volume 79 FL (80-99) L Mean Corpuscular Hemoglobin 26.7 PG (27.0-31.0) L Mean Corpuscular Hemoglobin Concent 33.8 G/DL (32.0-36.0) Red Cell Distribution Width 17.8 % (11.6-14.8) H Platelet Count 166 K/UL (150-450) Mean Platelet Volume 7.0 FL (6.5-10.1) Neutrophils (%) (Auto) % (45.0-75.0) Lymphocytes (%) (Auto) % (20.0-45.0) Monocytes (%) (Auto) % (1.0-10.0) Eosinophils (%) (Auto) % (0.0-3.0) Basophils (%) (Auto) % (0.0-2.0) Differential Total Cells Counted 100 Neutrophils % (Manual) 64 % (45-75) Lymphocytes % (Manual) 5 % (20-45) L Monocytes % (Manual) 14 % (1-10) H Eosinophils % (Manual) 0 % (0-3) Basophils % (Manual) 0 % (0-2) Myelocytes % 1 % (0-0) H Band Neutrophils 16 % (0-8) H Platelet Estimate Adequate Platelet Morphology Normal Hypochromasia 1+ Anisocytosis 1+ Microcytosis 2+ Current Medications Medications (Trade) Dose Ordered Sig/Lupe Route PRN Reason Start Time Stop Time Status Last Admin Dose Admin Acetaminophen (Tylenol) 650 mg Q4H PRN GT Mild Pain/Temp > 100.5 11/09/18 05:00 12/09/18 04:59 11/24/18 21:50 Amlodipine Besylate (Norvasc) 5 mg DAILY GT 12/05/18 09:00 12/09/18 08:59 12/05/18 09:00 Bisacodyl (Dulcolax) 10 mg DAILY PRN RECTAL Constipation 11/09/18 05:00 12/09/18 04:59 Chlorhexidine Gluconate (Corazon-Hex 2%) 1 applic DAILY@2000 TOPIC 11/12/18 20:00 12/12/18 19:59 12/04/18 19:49 Dextrose (Dextrose 50%) 25 ml Q30M PRN IV Hypoglycemia 11/09/18 04:45 12/09/18 04:44 Dextrose (Dextrose 50%) 50 ml Q30M PRN IV Hypoglycemia 11/09/18 04:45 12/09/18 04:44 11/09/18 09:09 Enoxaparin Sodium (Lovenox) 40 mg DAILY SUBQ 11/09/18 09:00 12/09/18 08:59 12/04/18 08:58 Famotidine (Pepcid) 20 mg EVERY 12 HOURS GT 11/09/18 21:00 12/09/18 08:59 12/05/18 08:55 Furosemide (Lasix) 40 mg EVERY 12 HOURS IV 12/04/18 21:00 01/03/19 20:59 12/05/18 09:01 Insulin Aspart (NovoLOG) Q6HR SUBQ 11/09/18 06:00 12/09/18 05:59 12/05/18 05:47 Insulin Detemir (Levemir) 4 units EVERY 12 HOURS SUBQ 11/16/18 21:00 12/09/18 08:59 12/05/18 09:08 Labetalol HCl (Normodyne) 200 mg Q8HR GT 11/09/18 06:00 12/09/18 05:59 12/05/18 05:45 Lactulose (Cephulac) 10 gm THREE TIMES A DAY GT 11/27/18 18:00 12/27/18 12:59 12/05/18 09:01 Levetiracetam (Keppra) 1,500 mg Q12HR GT 11/09/18 09:00 12/09/18 08:59 12/05/18 08:55 Magnesium Hydroxide (Mom) 30 ml DAILY PRN GT Constipation 11/09/18 05:00 12/09/18 04:59 Ondansetron HCl (Zofran) 4 mg Q6H PRN GT Nausea & Vomiting 11/09/18 05:00 12/09/18 04:59 Phenobarbital (PHENobarbital) 60 mg BID GT 11/09/18 09:00 12/09/18 08:59 12/05/18 08:54 Phenytoin (Dilantin) 100 mg Q8HR GT 11/09/18 06:00 12/09/18 05:59 12/05/18 05:44 Polyethylene Glycol (Miralax) 17 gm DAILYPRN PRN GT Constipation 11/14/18 10:30 12/12/18 10:29 Sennosides (Senokot) 8.6 mg EVERY 12 HOURS GT 11/09/18 21:00 12/09/18 08:59 12/05/18 08:55 Dasha Crews MD Dec 05, 2018 12:01
--- NOTE | 2018-12-05 13:00 | NUR ---
NURSE NOTES: Blood transfusion completed, no adverse reaction noted. Will continue to monitor.
--- NOTE | 2018-12-05 13:15 | NUR ---
NURSE NOTES: Called and left a message for Dr Walters (covering for Dr Buck) regarding repeat sodium level 128. Awaiting for call back/orders.
--- NOTE | 2018-12-05 15:28 | Surgery Progress Note ---
Surgery Progress Note Subjective Additional Comments transfused prbc h/h down Na noted as per renal exam unchanged. Objective Last 24 Hour Vital Signs Date Time Temp Pulse Resp B/P (MAP) Pulse Ox O2 Delivery O2 Flow Rate FiO2 12/05/18 14:50 75 24 30 12/05/18 14:45 74 132/71 12/05/18 12:59 73 26 30 12/05/18 12:00 Mechanical Ventilator 12/05/18 12:00 96.3 71 23 104/65 (78) 100 12/05/18 12:00 30 12/05/18 11:54 80 12/05/18 11:03 71 22 30 12/05/18 09:00 73 130/71 12/05/18 08:55 70 21 30 12/05/18 08:02 73 12/05/18 08:00 30 12/05/18 08:00 Mechanical Ventilator 12/05/18 08:00 98.7 73 24 130/71 (90) 100 12/05/18 07:11 75 23 30 12/05/18 05:45 75 117/58 12/05/18 05:22 75 25 30 12/05/18 04:00 30 12/05/18 04:00 Mechanical Ventilator 12/05/18 04:00 97.5 82 22 110/66 (81) 100 12/05/18 03:52 78 12/05/18 03:19 80 23 30 12/05/18 01:41 79 24 30 12/05/18 00:00 Mechanical Ventilator 12/05/18 00:00 97.3 84 26 101/62 (75) 100 12/05/18 00:00 30 12/04/18 23:35 81 12/04/18 23:10 84 23 30 12/04/18 22:12 86 106/66 12/04/18 21:25 89 24 30 12/04/18 20:00 Mechanical Ventilator 12/04/18 20:00 30 12/04/18 20:00 97.7 85 26 119/72 (88) 100 12/04/18 19:27 74 27 30 12/04/18 19:08 78 12/04/18 17:15 79 24 30 12/04/18 16:13 86 27 30 12/04/18 16:00 97.6 84 24 107/64 (78) 100 12/04/18 16:00 87 12/04/18 16:00 30 12/04/18 16:00 Mechanical Ventilator I&O Intake and Output 12/04/18 12/05/18 19:00 07:00 Intake Total 910 ml 725 ml Output Total 550 ml 1200 ml Balance 360 ml -475 ml IV Total 210 ml 40 ml Tube Feeding 520 ml 585 ml Other 180 ml 100 ml Output Urine Total 550 ml 1200 ml # Bowel Movements 2 2 Dressing: other Wound: other Cardiovascular: RSR, other Respiratory: clear, other Abdomen: soft, present bowel sounds, other, non-distended Extremities: edema, no cyanosis, other Laboratory Tests Test 12/04/18 20:00 12/05/18 03:25 12/05/18 10:40 Sodium Level 128 MMOL/L (136-145) L 152 MMOL/L (136-145) #H 128 MMOL/L (136-145) #L Potassium Level 3.7 MMOL/L (3.5-5.1) 3.3 MMOL/L (3.5-5.1) L 3.7 MMOL/L (3.5-5.1) Chloride Level 93 MMOL/L (98-107) L 117 MMOL/L (98-107) H 94 MMOL/L (98-107) L Carbon Dioxide Level 28 MMOL/L (21-32) 27 MMOL/L (21-32) 26 MMOL/L (21-32) Anion Gap 7 mmol/L (5-15) 8 mmol/L (5-15) 8 mmol/L (5-15) Blood Urea Nitrogen 22 mg/dL (7-18) H 21 mg/dL (7-18) H 22 mg/dL (7-18) H Creatinine 0.6 MG/DL (0.55-1.30) 0.5 MG/DL (0.55-1.30) L 0.6 MG/DL (0.55-1.30) Estimat Glomerular Filtration Rate mL/min (>60) mL/min (>60) mL/min (>60) Glucose Level 122 MG/DL (74-106) H 103 MG/DL (74-106) 139 MG/DL (74-106) H Calcium Level 7.8 MG/DL (8.5-10.1) L 7.3 MG/DL (8.5-10.1) L 8.2 MG/DL (8.5-10.1) L Total Bilirubin 0.4 MG/DL (0.2-1.0) 0.4 MG/DL (0.2-1.0) Aspartate Amino Transf (AST/SGOT) 33 U/L (15-37) 30 U/L (15-37) Alanine Aminotransferase (ALT/SGPT) 45 U/L (12-78) 41 U/L (12-78) Alkaline Phosphatase 346 U/L (46-116) H 336 U/L (46-116) H Total Protein 4.7 G/DL (6.4-8.2) L 4.7 G/DL (6.4-8.2) L Albumin 1.3 G/DL (3.4-5.0) L 1.2 G/DL (3.4-5.0) L Globulin 3.4 g/dL 3.5 g/dL Albumin/Globulin Ratio 0.4 (1.0-2.7) L 0.3 (1.0-2.7) L White Blood Count 10.5 K/UL (4.8-10.8) Red Blood Count 2.48 M/UL (4.20-5.40) L Hemoglobin 6.6 G/DL (12.0-16.0) *L Hematocrit 19.7 % (37.0-47.0) L Mean Corpuscular Volume 79 FL (80-99) L Mean Corpuscular Hemoglobin 26.7 PG (27.0-31.0) L Mean Corpuscular Hemoglobin Concent 33.8 G/DL (32.0-36.0) Red Cell Distribution Width 17.8 % (11.6-14.8) H Platelet Count 166 K/UL (150-450) Mean Platelet Volume 7.0 FL (6.5-10.1) Neutrophils (%) (Auto) % (45.0-75.0) Lymphocytes (%) (Auto) % (20.0-45.0) Monocytes (%) (Auto) % (1.0-10.0) Eosinophils (%) (Auto) % (0.0-3.0) Basophils (%) (Auto) % (0.0-2.0) Differential Total Cells Counted 100 Neutrophils % (Manual) 64 % (45-75) Lymphocytes % (Manual) 5 % (20-45) L Monocytes % (Manual) 14 % (1-10) H Eosinophils % (Manual) 0 % (0-3) Basophils % (Manual) 0 % (0-2) Myelocytes % 1 % (0-0) H Band Neutrophils 16 % (0-8) H Platelet Estimate Adequate Platelet Morphology Normal Hypochromasia 1+ Anisocytosis 1+ Microcytosis 2+ Plan Problems: (1) Fever (2) Tongue abnormality Assessment & Plan: patients jaw clenched closed and tongue has been stuck for some time. tongue split from middle teeth and now in two. edema and unable to reduce keep tongue moist. apply lube jelly prn dryness. will monitor do not recommend surgical intervention for this current medical condition spoke with family. ENT plan to see. OMFS no intervention (3) Tracheostomy dependence (4) Sepsis Assessment & Plan: gb no stones 6mm polyp no acute surgical intervention planned trend labs improving labs improved DAILY ESTIMATED NEEDS: Needs based on Critical care, sepsis, wound 60kg adj 22-30 kcals/kg 1822-1410 total kcals 1.25-2 g protein/kg 75-120 g total protein Fluid per MD, on lasix NUTRITION DIAGNOSIS: * Swallowing difficulty r/t respiratory status as evidenced by pt is vent dep via trach and PEG dep. * Increased kcal and pro needs r/t wound healing and sepsis as evidenced by pt w/ sacral and R heel wounds, febrile (Tmax 101.5). CURRENT TF: Jevity 1.2 @50 ml/hr x16 hrs ENTERAL NUTRITION RECOMMENDATIONS: Glucerna 1.2 @65ml/hr x18 hrs + Prosource x1 daily to provide 1170ml, 1404 kcal, 70g pro + 11g pro, 942 free H2O - REC TF CHANGE AND INCREASE TO BETTER MEET EST NEEDS - TF TO BE HELD FOR ONE HR BEFORE AND AFTER DILANTIN MEDS - START @20ML/HR, ADVANCE TOLERATED 15ML/HR Q4-6 HRS TO GOAL - FLUSH PER MD, HOB OVRE 30 DEGREES ADDITIONAL RECOMMENDATIONS: 1) CALIBRATED BED SCALE W/ ADDED P200 MATTRESS + PUMP 2) ON LASIX, MONITOR LYTES AND HYDRATION STATUS DAILY 3) TF TO RUN A MAX OF 18 HRS/DAY W/ DILANTIN TID PER PHARMACY 4) REC TF CHANGE TO CARB CONTROL FORMULA 5) WOUND CARE: ADD CHAYITO BID + VIT C 250MG DAILY (5) Fever Assessment & Plan: CT A/P with findings Impression: No definite acute process Diverticulosis. No evidence of diverticulitis Extensive edema of the subcutaneous fat. 2 cm focal fluid collection/edema seen within the incision Moderate amount retained dense stool. Correlate with any clinical history of constipation Hiatal hernia. Gastrostomy Left renal parapelvic cysts Apparent prior hysterectomy (6) Decubitus skin ulcer Assessment & Plan: Pt presented on admission with full thickness sacral pressure injury.Base of wound is 20% necrotic , 80% slough. borders are macerated . Mild odor noted. (L)8.4cm x (W) 6.5cm. Periwound skin tone is darker without erythema,induration or elevation in skin temp. Both heels are non -blanchable and both are fluctuant when palpated. Tx.Plan: Clean wound with saline. Apply Therahoney. Aply Moisture Barrier paste periwound. Cover with Optifoam drsg. Change every 3 days and prn. Apply Cavilon Skin BArrier to both heels. Cover each heel with Optifoam drsg. Change every 7 days and prn. APM/DEIDRRE mattress overlay. Reposition at least every 2hours or as tolerated. Off-load heels with pillow. will follow with recs thank you Additional Comments d/c planning prbc today am labs Preet Hylton Dec 05, 2018 15:28
--- NOTE | 2018-12-05 15:49 | Nephrology Progress Note ---
Assessment/Plan Problem List: (1) Fever (2) Diabetes (3) Seizure disorder (4) HTN (hypertension) (5) Tracheostomy dependence (6) Anoxic brain damage (7) Hyponatremia Plan #hyponatremia- likely hypovolumic vs SIADH due to valproic acid- hypo-osmolar - continue lasix 40 IV BID - DC free water flushes - Abx in NS - follow BMP BID -would need 3% only if S Na drops lower ( below 120) #H/o HTN- controlled - decreased amlodipine to 5 mg daily - labetalol 200mg TID - hydralazine 5 TID #Hypokalemia- repleted - stable today Subjective Subjective sodium improved to 128 BP stable Objective Objective Last 24 Hour Vital Signs Date Time Temp Pulse Resp B/P (MAP) Pulse Ox O2 Delivery O2 Flow Rate FiO2 12/05/18 14:50 75 24 30 12/05/18 14:45 74 132/71 12/05/18 12:59 73 26 30 12/05/18 12:00 Mechanical Ventilator 12/05/18 12:00 96.3 71 23 104/65 (78) 100 12/05/18 12:00 30 12/05/18 11:54 80 12/05/18 11:03 71 22 30 12/05/18 09:00 73 130/71 12/05/18 08:55 70 21 30 12/05/18 08:02 73 12/05/18 08:00 30 12/05/18 08:00 Mechanical Ventilator 12/05/18 08:00 98.7 73 24 130/71 (90) 100 12/05/18 07:11 75 23 30 12/05/18 05:45 75 117/58 12/05/18 05:22 75 25 30 12/05/18 04:00 30 12/05/18 04:00 Mechanical Ventilator 12/05/18 04:00 97.5 82 22 110/66 (81) 100 12/05/18 03:52 78 12/05/18 03:19 80 23 30 12/05/18 01:41 79 24 30 12/05/18 00:00 Mechanical Ventilator 12/05/18 00:00 97.3 84 26 101/62 (75) 100 12/05/18 00:00 30 12/04/18 23:35 81 9/16/19 23:10 84 23 30 12/04/18 22:12 86 106/66 12/04/18 21:25 89 24 30 12/04/18 20:00 Mechanical Ventilator 12/04/18 20:00 30 12/04/18 20:00 97.7 85 26 119/72 (88) 100 12/04/18 19:27 74 27 30 12/04/18 19:08 78 12/04/18 17:15 79 24 30 12/04/18 16:13 86 27 30 12/04/18 16:00 97.6 84 24 107/64 (78) 100 12/04/18 16:00 87 12/04/18 16:00 30 12/04/18 16:00 Mechanical Ventilator Intake and Output 12/04/18 12/05/18 19:00 07:00 Intake Total 910 ml 725 ml Output Total 550 ml 1200 ml Balance 360 ml -475 ml IV Total 210 ml 40 ml Tube Feeding 520 ml 585 ml Other 180 ml 100 ml Output Urine Total 550 ml 1200 ml # Bowel Movements 2 2 Laboratory Tests 12/04/18 20:00: Sodium Level 128L, Potassium Level 3.7, Chloride Level 93L, Carbon Dioxide Level 28, Anion Gap 7, Blood Urea Nitrogen 22H, Creatinine 0.6, Estimat Glomerular Filtration Rate , Glucose Level 122H, Calcium Level 7.8L, Total Bilirubin 0.4, Aspartate Amino Transf (AST/SGOT) 33, Alanine Aminotransferase ( ALT/SGPT) 45, Alkaline Phosphatase 346H, Total Protein 4.7L, Albumin 1.3L, Globulin 3.4, Albumin/Globulin Ratio 0.4L 12/05/18 03:25: Sodium Level 152#H, Potassium Level 3.3L, Chloride Level 117H, Carbon Dioxide Level 27, Anion Gap 8, Blood Urea Nitrogen 21H, Creatinine 0.5L, Estimat Glomerular Filtration Rate , Glucose Level 103, Calcium Level 7.3L, Total Bilirubin 0.4, Aspartate Amino Transf (AST/SGOT) 30, Alanine Aminotransferase ( ALT/SGPT) 41, Alkaline Phosphatase 336H, Total Protein 4.7L, Albumin 1.2L, Globulin 3.5, Albumin/Globulin Ratio 0.3L, White Blood Count 10.5, Red Blood Count 2.48L, Hemoglobin 6.6*L, Hematocrit 19.7L, Mean Corpuscular Volume 79L, Mean Corpuscular Hemoglobin 26.7L, Mean Corpuscular Hemoglobin Concent 33.8, Red Cell Distribution Width 17.8H, Platelet Count 166, Mean Platelet Volume 7.0 , Neutrophils (%) (Auto) , Lymphocytes (%) (Auto) , Monocytes (%) (Auto) , Eosinophils (%) (Auto) , Basophils (%) (Auto) , Differential Total Cells Counted 100, Neutrophils % (Manual) 64, Lymphocytes % (Manual) 5L, Monocytes % ( Manual) 14H, Eosinophils % (Manual) 0, Basophils % (Manual) 0, Myelocytes % 1H, Band Neutrophils 16H, Platelet Estimate Adequate, Platelet Morphology Normal, Hypochromasia 1+, Anisocytosis 1+, Microcytosis 2+ 12/05/18 10:40: Sodium Level 128#L, Potassium Level 3.7, Chloride Level 94L, Carbon Dioxide Level 26, Anion Gap 8, Blood Urea Nitrogen 22H, Creatinine 0.6, Estimat Glomerular Filtration Rate , Glucose Level 139H, Calcium Level 8.2L Height (Feet): 5 Height (Inches): 8.00 Weight (Pounds): 208 Objective General Appearance: no apparent distress, lethargic, + trach Neck: non-tender, normal alignment, supple, normal inspection, no JVD Rhythm: NSR Cardiovascular: normal peripheral pulses, regular rhythm, tachycardia Respiratory/Chest: biltateral faint wheezes Abdomen: normal bowel sounds, non tender, soft, + PEG Diana Sommers M.D. Dec 05, 2018 15:49
[2018-12-05 16:00] VITALS: BP 166/90
[2018-12-05 17:34] LABS: EOSINOPHILS % (AUTO) 0.7 % (0.0-3.0); HEMATOCRIT 24.2 % (37.0-47.0); HEMOGLOBIN 8.1 G/DL (12.0-16.0); LYMPHOCYTES % (AUTO) 6.2 % (20.0-45.0); MEAN CORPUSCULAR VOLUME 80 FL (80-99); MONOCYTES % (AUTO) 13.3 % (1.0-10.0); NEUTROPHILS % (AUTO) 77.7 % (45.0-75.0); PLATELET COUNT 181 K/UL (150-450); RED BLOOD COUNT 3.03 M/UL (4.20-5.40); RED CELL DISTRIBUTION WIDTH 17.1 % (11.6-14.8); WHITE BLOOD COUNT 11.3 K/UL (4.8-10.8)
--- NOTE | 2018-12-05 18:51 | Pulmonology Progress Note ---
Assessment/Plan Problems: (1) Ventilator dependence (2) Tracheostomy dependence (3) UTI (urinary tract infection) (4) Fever (5) Anoxic brain damage (6) Tongue abnormality (7) Seizure disorder (8) Colon adenocarcinoma (9) HTN (hypertension) (10) Sepsis (11) Diabetes (12) Abnormal LFTs (13) Protein calorie malnutrition (14) Gastrostomy in place (15) USP resident (16) Decubitus skin ulcer Assessment/Plan Continue ventilatory support/settings reviewed Titrate down FiO2 to keep SaO2 > 90% Optimize pulmonary hygiene/mobilize as tolerated RTC and PRN HHN's Observe off Abx per ID, F/U Cx's F/U cards recs Monitor volumes and renal function, diuresis as able DVT Px: LMWH held 2/2 anemia Transfuse PRBC Per record seen by OMFS and no note written, no intervention recommended, no ENT available to see FC, continue to discuss GOC --> consider family meeting Wound care Subjective Allergies: Coded Allergies: Crayfish (Unverified Allergy, Unknown, 11/11/18) Uncoded Allergies: Crawfish (Allergy, Unknown, 11/09/18) Subjective AFVSS stable on vent no sig secretions no distress S/P PRBC Objective Last 24 Hour Vital Signs Date Time Temp Pulse Resp B/P (MAP) Pulse Ox O2 Delivery O2 Flow Rate FiO2 12/05/18 17:55 74 22 100 Mechanical Ventilator 30 12/05/18 16:36 72 26 30 12/05/18 16:00 97.0 74 24 166/90 (115) 100 12/05/18 16:00 30 12/05/18 16:00 Mechanical Ventilator 12/05/18 15:27 73 12/05/18 14:50 75 24 30 12/05/18 14:45 74 132/71 12/05/18 12:59 73 26 30 12/05/18 12:00 Mechanical Ventilator 12/05/18 12:00 96.3 71 23 104/65 (78) 100 12/05/18 12:00 30 12/05/18 11:54 80 12/05/18 11:03 71 22 30 12/05/18 09:00 73 130/71 12/05/18 08:55 70 21 30 12/05/18 08:02 73 12/05/18 08:00 30 12/05/18 08:00 Mechanical Ventilator 12/05/18 08:00 98.7 73 24 130/71 (90) 100 12/05/18 07:11 75 23 30 12/05/18 05:45 75 117/58 12/05/18 05:22 75 25 30 12/05/18 04:00 30 12/05/18 04:00 Mechanical Ventilator 12/05/18 04:00 97.5 82 22 110/66 (81) 100 12/05/18 03:52 78 12/05/18 03:19 80 23 30 12/05/18 01:41 79 24 30 12/05/18 00:00 Mechanical Ventilator 12/05/18 00:00 97.3 84 26 101/62 (75) 100 12/05/18 00:00 30 12/04/18 23:35 81 12/04/18 23:10 84 23 30 12/04/18 22:12 86 106/66 12/04/18 21:25 89 24 30 12/04/18 20:00 Mechanical Ventilator 12/04/18 20:00 30 12/04/18 20:00 97.7 85 26 119/72 (88) 100 12/04/18 19:27 74 27 30 12/04/18 19:08 78 Intake and Output 12/04/18 12/05/18 18:59 06:59 Intake Total 845 ml 725 ml Output Total 1750 ml Balance 845 ml -1025 ml IV Total 210 ml 40 ml Tube Feeding 455 ml 585 ml Other 180 ml 100 ml Output Urine Total 1750 ml # Bowel Movements 1 3 General Appearance: no acute distress, cachetic, other - non verbal HEENT: normocephalic, atraumatic, status post trach, other - macroglossia Respiratory/Chest: chest wall non-tender, lungs clear, normal breath sounds, no respiratory distress Cardiovascular: normal peripheral pulses, normal rate, regular rhythm Abdomen: normal bowel sounds, soft, non tender, no organomegaly, non distended , no mass, other - GT Extremities: no cyanosis, no clubbing, other - 1-2+ edema x 4 Laboratory Tests 12/04/18 20:00: Sodium Level 128L, Potassium Level 3.7, Chloride Level 93L, Carbon Dioxide Level 28, Anion Gap 7, Blood Urea Nitrogen 22H, Creatinine 0.6, Estimat Glomerular Filtration Rate , Glucose Level 122H, Calcium Level 7.8L, Total Bilirubin 0.4, Aspartate Amino Transf (AST/SGOT) 33, Alanine Aminotransferase ( ALT/SGPT) 45, Alkaline Phosphatase 346H, Total Protein 4.7L, Albumin 1.3L, Globulin 3.4, Albumin/Globulin Ratio 0.4L 12/05/18 03:25: Sodium Level 152#H, Potassium Level 3.3L, Chloride Level 117H, Carbon Dioxide Level 27, Anion Gap 8, Blood Urea Nitrogen 21H, Creatinine 0.5L, Estimat Glomerular Filtration Rate , Glucose Level 103, Calcium Level 7.3L, Total Bilirubin 0.4, Aspartate Amino Transf (AST/SGOT) 30, Alanine Aminotransferase ( ALT/SGPT) 41, Alkaline Phosphatase 336H, Total Protein 4.7L, Albumin 1.2L, Globulin 3.5, Albumin/Globulin Ratio 0.3L, White Blood Count 10.5, Red Blood Count 2.48L, Hemoglobin 6.6*L, Hematocrit 19.7L, Mean Corpuscular Volume 79L, Mean Corpuscular Hemoglobin 26.7L, Mean Corpuscular Hemoglobin Concent 33.8, Red Cell Distribution Width 17.8H, Platelet Count 166, Mean Platelet Volume 7.0 , Neutrophils (%) (Auto) , Lymphocytes (%) (Auto) , Monocytes (%) (Auto) , Eosinophils (%) (Auto) , Basophils (%) (Auto) , Differential Total Cells Counted 100, Neutrophils % (Manual) 64, Lymphocytes % (Manual) 5L, Monocytes % ( Manual) 14H, Eosinophils % (Manual) 0, Basophils % (Manual) 0, Myelocytes % 1H, Band Neutrophils 16H, Platelet Estimate Adequate, Platelet Morphology Normal, Hypochromasia 1+, Anisocytosis 1+, Microcytosis 2+ 12/05/18 10:40: Sodium Level 128#L, Potassium Level 3.7, Chloride Level 94L, Carbon Dioxide Level 26, Anion Gap 8, Blood Urea Nitrogen 22H, Creatinine 0.6, Estimat Glomerular Filtration Rate , Glucose Level 139H, Calcium Level 8.2L 12/05/18 17:15: White Blood Count 11.3H, Red Blood Count 3.03L, Hemoglobin 8.1L, Hematocrit 24.2L, Mean Corpuscular Volume 80, Mean Corpuscular Hemoglobin 26.8L, Mean Corpuscular Hemoglobin Concent 33.6, Red Cell Distribution Width 17.1H, Platelet Count 181, Mean Platelet Volume 6.3L, Neutrophils (%) (Auto) 77.7H, Lymphocytes (%) (Auto) 6.2L, Monocytes (%) (Auto) 13.3H, Eosinophils (%) (Auto) 0.7, Basophils (%) (Auto) 2.0 Current Medications Medications (Trade) Dose Ordered Sig/Lupe Route PRN Reason Start Time Stop Time Status Last Admin Dose Admin Acetaminophen (Tylenol) 650 mg Q4H PRN GT Mild Pain/Temp > 100.5 11/09/18 05:00 12/09/18 04:59 11/24/18 21:50 Amlodipine Besylate (Norvasc) 5 mg DAILY GT 12/05/18 09:00 12/09/18 08:59 12/05/18 09:00 Bisacodyl (Dulcolax) 10 mg DAILY PRN RECTAL Constipation 11/09/18 05:00 12/09/18 04:59 Chlorhexidine Gluconate (Corazon-Hex 2%) 1 applic DAILY@2000 TOPIC 11/12/18 20:00 12/12/18 19:59 12/04/18 19:49 Dextrose (Dextrose 50%) 25 ml Q30M PRN IV Hypoglycemia 11/09/18 04:45 12/09/18 04:44 Dextrose (Dextrose 50%) 50 ml Q30M PRN IV Hypoglycemia 11/09/18 04:45 12/09/18 04:44 11/09/18 09:09 Enoxaparin Sodium (Lovenox) 40 mg DAILY SUBQ 11/09/18 09:00 12/09/18 08:59 12/04/18 08:58 Famotidine (Pepcid) 20 mg EVERY 12 HOURS GT 11/09/18 21:00 12/09/18 08:59 12/05/18 08:55 Furosemide (Lasix) 40 mg EVERY 12 HOURS IV 12/04/18 21:00 01/03/19 20:59 12/05/18 09:01 Insulin Aspart (NovoLOG) Q6HR SUBQ 11/09/18 06:00 12/09/18 05:59 12/05/18 17:49 Insulin Detemir (Levemir) 4 units EVERY 12 HOURS SUBQ 11/16/18 21:00 12/09/18 08:59 12/05/18 09:08 Labetalol HCl (Normodyne) 200 mg Q8HR GT 11/09/18 06:00 12/09/18 05:59 12/05/18 14:45 Lactulose (Cephulac) 10 gm THREE TIMES A DAY GT 11/27/18 18:00 12/27/18 12:59 12/05/18 17:50 Levetiracetam (Keppra) 1,500 mg Q12HR GT 11/09/18 09:00 12/09/18 08:59 12/05/18 08:55 Magnesium Hydroxide (Mom) 30 ml DAILY PRN GT Constipation 11/09/18 05:00 12/09/18 04:59 Ondansetron HCl (Zofran) 4 mg Q6H PRN GT Nausea & Vomiting 11/09/18 05:00 12/09/18 04:59 Phenobarbital (PHENobarbital) 60 mg BID GT 11/09/18 09:00 12/09/18 08:59 12/05/18 17:50 Phenytoin (Dilantin) 100 mg Q8HR GT 11/09/18 06:00 12/09/18 05:59 12/05/18 14:44 Polyethylene Glycol (Miralax) 17 gm DAILYPRN PRN GT Constipation 11/14/18 10:30 12/12/18 10:29 Sennosides (Senokot) 8.6 mg EVERY 12 HOURS GT 11/09/18 21:00 12/09/18 08:59 12/05/18 08:55 Balbir Dejesus MD Dec 05, 2018 18:50
[2018-12-05] MEDS ORDERED: Albuterol/Ipratropium 3ml neb HHN PRN (19:00)
--- NOTE | 2018-12-05 19:15 | NUR ---
RESPIRATORY NOTE: Received pt on AC 14, 375VT, 30%, PEEP +5. Pt is trach-dependent w/ a cuffed, Shiley 8 tube. Pt obtunded. B/S didi. rhonchi, sxn small to moderate amounts of thick, pale-yellow to mccauley-yellow secretions. Vent plugged into red outlet, ambubag at bedside. Pt in no apparent distress at this time. Will continue plan of care.
--- NOTE | 2018-12-05 19:16 | NUR ---
HAND-OFF: Report given to CHARLEE Guadalupe. Patient in stable condition.
--- NOTE | 2018-12-05 19:17 | NUR ---
NURSE NOTES: Received PT from Rad[facility] DESHPANDE. Pt is obtunded on prescribed vent settings, and in stable condition with no acute distress. Tube feeding running at gaol, VSS, SR, and skin issues noted. Right PICC line patent and dated, seizure precautions implemented. Bed at its lowest position, X3 bed rails are up and call light in reach.
[2018-12-05 20:00] VITALS: BP 100/65
[2018-12-05] MEDS: Dyna-Hex 2% Top Sol 2oz TOPIC SCH (20:27)
[2018-12-05] MEDS: Albuterol/Ipratropium 3ml neb HHN SCH (20:32)
--- NOTE | 2018-12-05 21:54 | NUR ---
NURSE NOTES: Spoke to Pharmacy about a depleted Levemir pen. Pharmacy said they will send replacement.
--- NOTE | 2018-12-05 23:45 | NUR ---
RESPIRATORY NOTE: Trach care done for this pt. Trach site asymptomatic/draining, patent. Noted to have wounds on left & right upper chest just below the trach area, covered w/ gauze & extra towels to prevent any more skin irritations. Bedside RN & Wound RN aware of pt wounds. Will continue plan of care.
[2018-12-06] VITALS: BP 118/71
[2018-12-06] MEDS: NovoLOG Insulin Flexpen SUBQ SCH ×5 (00:55→23:21)
[2018-12-06] MEDS: Albuterol/Ipratropium 3ml neb HHN SCH ×4 (00:57→19:00)
[2018-12-06 03:55] VITALS: BP 102/63
[2018-12-06 04:46] LABS: HEMATOCRIT 22.3 % (37.0-47.0); HEMOGLOBIN 7.6 G/DL (12.0-16.0); MEAN CORPUSCULAR VOLUME 78 FL (80-99); PLATELET COUNT 184 K/UL (150-450); RED BLOOD COUNT 2.84 M/UL (4.20-5.40); RED CELL DISTRIBUTION WIDTH 18.2 % (11.6-14.8); WHITE BLOOD COUNT 12.2 K/UL (4.8-10.8)
[2018-12-06 05:13] LABS: ALANINE AMINOTRANSFERASE 39 U/L (12-78); ALBUMIN 1.3 G/DL (3.4-5.0); ALBUMIN/GLOBULIN RATIO 0.3 (1.0-2.7); ALKALINE PHOSPHATASE 433 U/L (46-116); ANION GAP 5 mmol/L (5-15); ASPARTATE AMINO TRANSFERASE 47 U/L (15-37); BILIRUBIN,TOTAL 0.4 MG/DL (0.2-1.0); BLOOD UREA NITROGEN 26 mg/dL (7-18); CALCIUM 8.1 MG/DL (8.5-10.1); CARBON DIOXIDE 30 MMOL/L (21-32); CHLORIDE 94 MMOL/L (98-107); CREATININE 0.6 MG/DL (0.55-1.30); POTASSIUM 3.8 MMOL/L (3.5-5.1); SODIUM 129 MMOL/L (136-145)
[2018-12-06] MEDS: Labetalol 200mg tab GT SCH ×3 (05:59→21:41)
[2018-12-06] MEDS: Magic Mouth Wash 60ml (Benadryl/Mylanta/Visc Lido) ORAL SCH ×3 (06:00→21:41)
[2018-12-06] MEDS: Phenytoin Susp 100mg/4ml GT SCH ×3 (06:00→21:41)
--- NOTE | 2018-12-06 06:11 | Hematology/Onc Progress Note ---
Assessment/Plan Assessment/Plan # Anemia of chronic disease due to underlying chronic medical issues, multifactorial --> Anemia workup has been reviewed and cw acd --> No evidence of hemolysis is noted, peripheral smear has been reviewed. --> Hgb goal >7. Transfuse prn. --> hgb trend 9-->8-->7.5-->9.3->8.6-->8.4-->8.7->7.6-->6.6-->7.6 --> Epogen or iron indication prn --> Medications have been reviewed --> low threshold for gi evaluation and occult is negative # Leukocytosis with sepsis secondary to UTI, GPC Staph Epidermidis bacteremia, Line associated infection - patient arrived to the Hospital with PICC --> as per ID consult appreciate Rec --> Continue antibiotics per ID: Continue Zosyn and vancomycin, anti fungal added--> kaykay/vanc, diflucan-->flagyl, vanc, polymyxin--> omid/flagyl/polym/vanc --> NOW OFF --> imaging noted --> now improved # Thrombocytosis is likely due to underlying reactive process --> if doesn't improve send off jak2 --> plt count 641k-->402k-->344-->275k-->280k-->250k-->255k # Elevated tumor marker, cea --> as per gi eval # Transaminitis --> trend lft's --> GI consult, apprec recs --> ab us: reviewed # Elevated troponin secondary to sepsis versus ACS --> as per Cardiology recs # Hypertension- improved --> sbp goal <150 # Vent dependent with trach --> as per Pulmonary recs # Hypokalemia --> give vit K # Dysphagia s/p gtube feeds # CHf hx with hyponatremia --> 1l fluid restriction # Dvt ppx with lovenox The timing of this note does not necessarily reflect the time of the patient was seen. GREATLY APPRECIATE CONSULTATION. Subjective Gastrointestinal/Abdominal: Denies: no symptoms, abdomen distended, abdominal pain, black stools, tarry stools, blood in stool, constipated, diarrhea, difficulty swallowing, nausea, poor appetite, poor fluid intake, rectal bleeding , vomiting, other Genitourinary: Denies: no symptoms, burning, discharge, frequency, flank pain, hematuria, incontinence, pain, urgency, other Neurologic/Psychiatric: Denies: no symptoms, anxiety, depressed, emotional problems, headache, numbness, paresthesia, pre-existing deficit, seizure, tingling, tremors, weakness, other Endocrine: Denies: no symptoms, excessive sweating, flushing, intolerance to cold, intolerance to heat, increased hunger, increased thirst, increased urine, unexplained weight gain, unexplained weight loss, other Hematologic/Lymphatic: Denies: no symptoms, anemia, easy bleeding, easy bruising, adenopathy, other Allergies: Coded Allergies: Crayfish (Unverified Allergy, Unknown, 11/11/18) Uncoded Allergies: Crawfish (Allergy, Unknown, 11/09/18) Subjective 11/14: no events to report, labs relatively stable, hgb 8.9, on vent 11/15: no bleeding, no chills, labs reviewed, no major changes 11/16: cxr-->bilateral interstitial edema, vs stable, on abx, on vent, contact isolation 11/17: labs reviewed, on abx, vs stable, on vent, no distress 11/18: remains on gtube feeds, is on vent, on kaykay/vanc 11/20: no events, no bleeding, kaykay, vanc, diflucan, no f/c 11/21: remains on vent, gtube feeds, no major changes, no bleeding 11/22: ct abdomen pelvis w/contrast reviewed, vs stable, no acute events, labs reviewed, remains intubated, low grade fever 11/23: reviewed meds, abx have been changed, remains altered currently 11/24: labs reviewed, vs stable, med reviewed, no sob, no distress, on vent 11/25: remains on vent, no major events, on glucerna, fluid restriction 11/27: signed consent today, no f/c, no night sweats 11/28: no f/c, on abx, on vent, no distress, picc line in 11/29: no events to report, no f/c, no bleeding noted, on vent 11/30: vs stable, no f/c, on vent, obtunded, gtube feeds 12/01: no f/c, cxr-->pulmonary edema, meds reviewed, contact precaution, on vent , labs noted 12/03: ongoing gtube feeds, nava in place, on vent, no bleeding 12/04: remains obtunded, on trach/to vent, no bleeding today, labs noted 12/05: electrolytes repleted overnight, no major changes, prbc was ordered hgb 6.6 12/06: on vent, trach dependent, no f/c, no bleeding Objective Objective Current Medications Medications (Trade) Dose Ordered Sig/Lupe Route PRN Reason Start Time Stop Time Status Last Admin Dose Admin Acetaminophen (Tylenol) 650 mg Q4H PRN GT Mild Pain/Temp > 100.5 11/09/18 05:00 12/09/18 04:59 11/24/18 21:50 Albuterol/ Ipratropium (Albuterol/ Ipratropium) 3 ml Q4H PRN HHN Shortness of Breath 12/05/18 19:00 12/10/18 18:59 Albuterol/ Ipratropium (Albuterol/ Ipratropium) 3 ml Q6HRT HHN 12/05/18 19:00 12/10/18 18:59 12/06/18 00:57 Amlodipine Besylate (Norvasc) 5 mg DAILY GT 12/05/18 09:00 12/09/18 08:59 12/05/18 09:00 Bisacodyl (Dulcolax) 10 mg DAILY PRN RECTAL Constipation 11/09/18 05:00 12/09/18 04:59 Chlorhexidine Gluconate (Corazon-Hex 2%) 1 applic DAILY@2000 TOPIC 11/12/18 20:00 12/12/18 19:59 12/05/18 20:27 Dextrose (Dextrose 50%) 25 ml Q30M PRN IV Hypoglycemia 11/09/18 04:45 12/09/18 04:44 Dextrose (Dextrose 50%) 50 ml Q30M PRN IV Hypoglycemia 11/09/18 04:45 12/09/18 04:44 11/09/18 09:09 Enoxaparin Sodium (Lovenox) 40 mg DAILY SUBQ 11/09/18 09:00 12/09/18 08:59 12/04/18 08:58 Famotidine (Pepcid) 20 mg EVERY 12 HOURS GT 11/09/18 21:00 12/09/18 08:59 12/05/18 20:27 Furosemide (Lasix) 40 mg EVERY 12 HOURS IV 12/04/18 21:00 01/03/19 20:59 12/05/18 20:28 Insulin Aspart (NovoLOG) Q6HR SUBQ 11/09/18 06:00 12/09/18 05:59 12/06/18 00:55 Insulin Detemir (Levemir) 4 units EVERY 12 HOURS SUBQ 11/16/18 21:00 12/09/18 08:59 12/05/18 21:40 Labetalol HCl (Normodyne) 200 mg Q8HR GT 11/09/18 06:00 12/09/18 05:59 12/06/18 05:59 Lactulose (Cephulac) 10 gm THREE TIMES A DAY GT 11/27/18 18:00 12/27/18 12:59 12/05/18 17:50 Levetiracetam (Keppra) 1,500 mg Q12HR GT 11/09/18 09:00 12/09/18 08:59 12/05/18 21:41 Magnesium Hydroxide (Mom) 30 ml DAILY PRN GT Constipation 11/09/18 05:00 12/09/18 04:59 Ondansetron HCl (Zofran) 4 mg Q6H PRN GT Nausea & Vomiting 11/09/18 05:00 12/09/18 04:59 Phenobarbital (PHENobarbital) 60 mg BID GT 11/09/18 09:00 12/09/18 08:59 12/05/18 17:50 Phenytoin (Dilantin) 100 mg Q8HR GT 11/09/18 06:00 12/09/18 05:59 12/06/18 06:00 Polyethylene Glycol (Miralax) 17 gm DAILYPRN PRN GT Constipation 11/14/18 10:30 12/12/18 10:29 Sennosides (Senokot) 8.6 mg EVERY 12 HOURS GT 11/09/18 21:00 12/09/18 08:59 12/05/18 20:27 Last 24 Hour Vital Signs Date Time Temp Pulse Resp B/P (MAP) Pulse Ox O2 Delivery O2 Flow Rate FiO2 12/06/18 05:59 67 102/63 12/06/18 05:08 67 20 30 12/06/18 04:00 30 12/06/18 03:57 Mechanical Ventilator 12/06/18 03:55 96.0 70 24 102/63 (76) 100 19 03:48 69 18/19 03:02 74 23 30 12/06/18 01:07 72 22 100 12/06/18 00:57 77 26 100 Mechanical Ventilator 30 77 26 30 12/06/18 00:00 Mechanical Ventilator 12/06/18 00:00 96.1 75 27 118/71 (87) 100 12/05/18 23:45 71 24 30 12/05/18 23:29 72 12/05/18 22:38 72 109/66 12/05/18 20:42 66 19 100 12/05/18 20:32 69 23 100 Mechanical Ventilator 30 68 20 30 12/05/18 20:00 30 12/05/18 20:00 Mechanical Ventilator 12/05/18 20:00 96.4 70 25 100/65 (77) 100 12/05/18 19:21 70 12/05/18 19:12 68 25 30 12/05/18 17:55 74 22 100 Mechanical Ventilator 30 12/05/18 16:36 72 26 30 12/05/18 16:00 97.0 74 24 166/90 (115) 100 12/05/18 16:00 30 12/05/18 16:00 Mechanical Ventilator 12/05/18 15:27 73 12/05/18 14:50 75 24 30 12/05/18 14:45 74 132/71 12/05/18 12:59 73 26 30 12/05/18 12:00 Mechanical Ventilator 12/05/18 12:00 96.3 71 23 104/65 (78) 100 12/05/18 12:00 30 12/05/18 11:54 80 12/05/18 11:03 71 22 30 12/05/18 09:00 73 130/71 12/05/18 08:55 70 21 30 12/05/18 08:02 73 12/05/18 08:00 30 12/05/18 08:00 Mechanical Ventilator 12/05/18 08:00 98.7 73 24 130/71 (90) 100 12/05/18 07:11 75 23 30 12/05/18 05:45 75 117/58 12/05/18 05:22 75 25 30 12/05/18 04:00 30 12/05/18 04:00 Mechanical Ventilator 12/05/18 04:00 97.5 82 22 110/66 (81) 100 12/05/18 03:52 78 12/05/18 03:19 80 23 30 12/05/18 01:41 79 24 30 12/05/18 00:00 Mechanical Ventilator 12/05/18 00:00 97.3 84 26 101/62 (75) 100 12/05/18 00:00 30 12/04/18 23:35 81 12/04/18 23:10 84 23 30 12/04/18 22:12 86 106/66 12/04/18 21:25 89 24 30 12/04/18 20:00 Mechanical Ventilator 12/04/18 20:00 30 12/04/18 20:00 97.7 85 26 119/72 (88) 100 12/04/18 19:27 74 27 30 12/04/18 19:08 78 12/04/18 17:15 79 24 30 12/04/18 16:13 86 27 30 12/04/18 16:00 97.6 84 24 107/64 (78) 100 12/04/18 16:00 87 12/04/18 16:00 30 12/04/18 16:00 Mechanical Ventilator 12/04/18 13:25 91 27 30 12/04/18 12:00 Mechanical Ventilator 12/04/18 12:00 30 12/04/18 12:00 80 12/04/18 12:00 97.3 82 28 95/60 (72) 100 12/04/18 11:30 83 28 30 12/04/18 09:28 84 129/56 12/04/18 09:04 84 30 30 12/04/18 08:00 97.1 80 28 129/56 (80) 100 12/04/18 08:00 Mechanical Ventilator 12/04/18 08:00 30 12/04/18 08:00 83 12/04/18 08:00 83 12/04/18 07:30 84 32 30 Intake and Output 12/05/18 12/06/18 19:00 07:00 Intake Total 895 ml 490 ml Output Total 1700 ml Balance -805 ml 490 ml Intake Free Water 60 ml 100 ml Tube Feeding 585 ml 390 ml Blood Product 250 ml Output Urine Total 1700 ml # Bowel Movements 1 Labs Test 12/04/18 03:30 12/04/18 20:00 12/05/18 03:25 12/05/18 10:40 White Blood Count 10.8 K/UL (4.8-10.8) 10.5 K/UL (4.8-10.8) Red Blood Count 2.87 M/UL (4.20-5.40) 2.48 M/UL (4.20-5.40) Hemoglobin 7.6 G/DL (12.0-16.0) 6.6 G/DL (12.0-16.0) Hematocrit 22.7 % (37.0-47.0) 19.7 % (37.0-47.0) Mean Corpuscular Volume 79 FL (80-99) 79 FL (80-99) Mean Corpuscular Hemoglobin 26.5 PG (27.0-31.0) 26.7 PG (27.0-31.0) Mean Corpuscular Hemoglobin Concent 33.5 G/DL (32.0-36.0) 33.8 G/DL (32.0-36.0) Red Cell Distribution Width 18.3 % (11.6-14.8) 17.8 % (11.6-14.8) Platelet Count 198 K/UL (150-450) 166 K/UL (150-450) Mean Platelet Volume 7.3 FL (6.5-10.1) 7.0 FL (6.5-10.1) Neutrophils (%) (Auto) % (45.0-75.0) % (45.0-75.0) Lymphocytes (%) (Auto) % (20.0-45.0) % (20.0-45.0) Monocytes (%) (Auto) % (1.0-10.0) % (1.0-10.0) Eosinophils (%) (Auto) % (0.0-3.0) % (0.0-3.0) Basophils (%) (Auto) % (0.0-2.0) % (0.0-2.0) Sodium Level 125 MMOL/L (136-145) 128 MMOL/L (136-145) 152 MMOL/L (136-145) 128 MMOL/L (136-145) Potassium Level 3.7 MMOL/L (3.5-5.1) 3.7 MMOL/L (3.5-5.1) 3.3 MMOL/L (3.5-5.1) 3.7 MMOL/L (3.5-5.1) Chloride Level 90 MMOL/L (98-107) 93 MMOL/L (98-107) 117 MMOL/L (98-107) 94 MMOL/L (98-107) Carbon Dioxide Level 27 MMOL/L (21-32) 28 MMOL/L (21-32) 27 MMOL/L (21-32) 26 MMOL/L (21-32) Anion Gap 8 mmol/L (5-15) 7 mmol/L (5-15) 8 mmol/L (5-15) 8 mmol/L (5-15) Blood Urea Nitrogen 18 mg/dL (7-18) 22 mg/dL (7-18) 21 mg/dL (7-18) 22 mg/dL (7-18) Creatinine 0.5 MG/DL (0.55-1.30) 0.6 MG/DL (0.55-1.30) 0.5 MG/DL (0.55-1.30) 0.6 MG/DL (0.55-1.30) Estimat Glomerular Filtration Rate mL/min (>60) mL/min (>60) mL/min (>60) mL/min (>60) Glucose Level 114 MG/DL (74-106) 122 MG/DL (74-106) 103 MG/DL (74-106) 139 MG/DL (74-106) Calcium Level 7.9 MG/DL (8.5-10.1) 7.8 MG/DL (8.5-10.1) 7.3 MG/DL (8.5-10.1) 8.2 MG/DL (8.5-10.1) Total Bilirubin 0.4 MG/DL (0.2-1.0) 0.4 MG/DL (0.2-1.0) 0.4 MG/DL (0.2-1.0) Aspartate Amino Transf (AST/SGOT) 43 U/L (15-37) 33 U/L (15-37) 30 U/L (15-37) Alanine Aminotransferase (ALT/SGPT) 55 U/L (12-78) 45 U/L (12-78) 41 U/L (12-78) Alkaline Phosphatase 382 U/L (46-116) 346 U/L (46-116) 336 U/L (46-116) Total Protein 5.2 G/DL (6.4-8.2) 4.7 G/DL (6.4-8.2) 4.7 G/DL (6.4-8.2) Albumin 1.5 G/DL (3.4-5.0) 1.3 G/DL (3.4-5.0) 1.2 G/DL (3.4-5.0) Globulin 3.7 g/dL 3.4 g/dL 3.5 g/dL Albumin/Globulin Ratio 0.4 (1.0-2.7) 0.4 (1.0-2.7) 0.3 (1.0-2.7) Differential Total Cells Counted 100 Neutrophils % (Manual) 64 % (45-75) Lymphocytes % (Manual) 5 % (20-45) Monocytes % (Manual) 14 % (1-10) Eosinophils % (Manual) 0 % (0-3) Basophils % (Manual) 0 % (0-2) Myelocytes % 1 % (0-0) Band Neutrophils 16 % (0-8) Platelet Estimate Adequate Platelet Morphology Normal Hypochromasia 1+ Anisocytosis 1+ Microcytosis 2+ Test 12/05/18 17:15 12/06/18 00:00 12/06/18 03:22 White Blood Count 11.3 K/UL (4.8-10.8) 12.2 K/UL (4.8-10.8) Red Blood Count 3.03 M/UL (4.20-5.40) 2.84 M/UL (4.20-5.40) Hemoglobin 8.1 G/DL (12.0-16.0) 7.6 G/DL (12.0-16.0) Hematocrit 24.2 % (37.0-47.0) 22.3 % (37.0-47.0) Mean Corpuscular Volume 80 FL (80-99) 78 FL (80-99) Mean Corpuscular Hemoglobin 26.8 PG (27.0-31.0) 26.9 PG (27.0-31.0) Mean Corpuscular Hemoglobin Concent 33.6 G/DL (32.0-36.0) 34.3 G/DL (32.0-36.0) Red Cell Distribution Width 17.1 % (11.6-14.8) 18.2 % (11.6-14.8) Platelet Count 181 K/UL (150-450) 184 K/UL (150-450) Mean Platelet Volume 6.3 FL (6.5-10.1) 6.3 FL (6.5-10.1) Neutrophils (%) (Auto) 77.7 % (45.0-75.0) % (45.0-75.0) Lymphocytes (%) (Auto) 6.2 % (20.0-45.0) % (20.0-45.0) Monocytes (%) (Auto) 13.3 % (1.0-10.0) % (1.0-10.0) Eosinophils (%) (Auto) 0.7 % (0.0-3.0) % (0.0-3.0) Basophils (%) (Auto) 2.0 % (0.0-2.0) % (0.0-2.0) Sodium Level 129 MMOL/L (136-145) Potassium Level 3.8 MMOL/L (3.5-5.1) Chloride Level 94 MMOL/L (98-107) Carbon Dioxide Level 30 MMOL/L (21-32) Anion Gap 5 mmol/L (5-15) Blood Urea Nitrogen 26 mg/dL (7-18) Creatinine 0.6 MG/DL (0.55-1.30) Estimat Glomerular Filtration Rate mL/min (>60) Glucose Level 102 MG/DL (74-106) Calcium Level 8.1 MG/DL (8.5-10.1) Total Bilirubin 0.4 MG/DL (0.2-1.0) Aspartate Amino Transf (AST/SGOT) 47 U/L (15-37) Alanine Aminotransferase (ALT/SGPT) 39 U/L (12-78) Alkaline Phosphatase 433 U/L (46-116) Total Protein 5.1 G/DL (6.4-8.2) Albumin 1.3 G/DL (3.4-5.0) Globulin 3.8 g/dL Albumin/Globulin Ratio 0.3 (1.0-2.7) Height (Feet): 5 Height (Inches): 8.00 Weight (Pounds): 244 Objective Physical Exam: Vitals: reviewed Gen: NAD HEENT: normocephalic, atraumatic Neck: non-tender, normal alignment ++ vent/trach Respiratory: normal breath sounds bilaterally CV: normal peripheral pulses, rrr Abdomen: normal bowel sounds, soft, nontender +gtube Extremities: 1-2+ edema, normal range of motion Yonathan Hernandez MD Dec 06, 2018 06:11
--- NOTE | 2018-12-06 07:00 | NUR ---
RESPIRATORY NOTES: Received Patient on Vent settings ACVC 14, VT 375, Fio2 30%, PEEP +5. Patient currently trached with a Shiley 8 tracheostomy tube, secured by trache ties. Patient obtundent. Breath sounds are bilateral rhonchi throughout both lung cardona. Suctioned small amount of mccauley secretions Q2 and PRN. Vent plugged into red outlet. Alarms are on and audible. Will continue to monitor throughout the day.
--- NOTE | 2018-12-06 07:10 | NUR ---
HAND-OFF: Report given to JERRY DESHPANDE.
--- NOTE | 2018-12-06 07:11 | NUR ---
NURSE NOTES: RECEIVED PATIENT FROM [facility]. PATIENT IS LYING IN BED, OBTUNDED. HOOKED TO [employer]. TRACH TO VENT. SHILEY 8, AC 14, TV 375, FiO2 30%, PEEP 5. NO SIGNS OF CARDIO OR RESPI DISTRESS OF THE MOMENT. NOTED GT WITH GTF 1.2 AT 65ML/HR. YI CONNECTED TO BAG, PATENT AND DRAINING URINE. SKIN ALTERATION NOTED. ON OVERLAY MATTRESS. PICC ON R UA, DRY AND INTACT. BED AT LOWEST POSITION. SIDE RAILS UP AND PADDED. CALL LIGHT WITHIN REACH. WILL CONTINUE TO MONITOR.
--- NOTE | 2018-12-06 07:23 | NUR ---
NURSE NOTES: INFORMED DR LEBRON RE H/H/. AWAITING FOR CALL BACK. WILL CONTINUE TO MONITOR.
[2018-12-06 08:00] VITALS: BP 120/68
--- NOTE | 2018-12-06 08:48 | NUR ---
RADIOLOGY DEPT., CHEST X-RAY DONE.-P.DYE
[2018-12-06] MEDS: PHENobarbital Elixir 30mg/7.5ml GT SCH ×2 (08:57→18:36)
[2018-12-06] MEDS: levETIRAcetam 500mg/5ml Liquid GT SCH ×2 (08:57→20:21)
[2018-12-06] MEDS: Lactulose 10gm/15ml UDC GT SCH ×3 (09:00→18:35)
[2018-12-06] MEDS: Sennosides 8.6mg tab GT SCH ×2 (09:00→20:22)
[2018-12-06] MEDS: Enoxaparin 40mg Inj SUBQ SCH (09:00)
[2018-12-06] MEDS: Levemir Flexpen SUBQ SCH ×2 (09:03→20:24)
--- NOTE | 2018-12-06 09:47 | General Progress Note ---
Assessment/Plan Status: stable Assessment/Plan: (1) Abnormal LFTs ICD Codes: R94.5 - Abnormal results of liver function studies SNOMED: 933418187 (2) Decubitus skin ulcer ICD Codes: L89.90 - Pressure ulcer of unspecified site, unspecified stage SNOMED: 539534843 (3) Protein calorie malnutrition ICD Codes: E46 - Unspecified protein-calorie malnutrition SNOMED: 788943379 (4) Colon adenocarcinoma ICD Codes: C18.9 - Malignant neoplasm of colon, unspecified SNOMED: 669199211 (5) Sepsis ICD Codes: A41.9 - Sepsis, unspecified organism SNOMED: 07179935 (6) Tracheostomy dependence ICD Codes: Z93.0 - Tracheostomy status SNOMED: 724228249 (7) 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 Humphries. Assessment/Plan Assessment - Iron deficiency anemia - abnormal LFT - ? meds, passive congestion - dysphagia, s/p GT - Resp, failure, s/p Trach - hepatitis panel negative Recommendations - Continue TF - Monitor LFT - follow CBC - Conservative approach given poor health- Subjective ROS Limited/Unobtainable: No Allergies: Coded Allergies: Crayfish (Unverified Allergy, Unknown, 11/11/18) Uncoded Allergies: Crawfish (Allergy, Unknown, 11/09/18) Subjective fever last night had BM Objective Last 24 Hour Vital Signs Date Time Temp Pulse Resp B/P (MAP) Pulse Ox O2 Delivery O2 Flow Rate FiO2 12/06/18 09:07 79 22 30 12/06/18 08:58 80 120/68 12/06/18 08:00 30 12/06/18 08:00 Mechanical Ventilator 12/06/18 08:00 96.0 80 22 120/68 (85) 100 12/06/18 07:40 72 12/06/18 07:15 67 20 100 Mechanical Ventilator 30 71 17 30 12/06/18 05:59 67 102/63 12/06/18 05:08 67 20 30 12/06/18 04:00 30 12/06/18 03:57 Mechanical Ventilator 12/06/18 03:55 96.0 70 24 102/63 (76) 100 12/06/18 03:48 69 12/06/18 03:02 74 23 30 12/06/18 01:07 72 22 100 12/06/18 00:57 77 26 100 Mechanical Ventilator 30 77 26 30 12/06/18 00:00 Mechanical Ventilator 12/06/18 00:00 96.1 75 27 118/71 (87) 100 12/05/18 23:45 71 24 30 12/05/18 23:29 72 12/05/18 22:38 72 109/66 12/05/18 20:42 66 19 100 12/05/18 20:32 69 23 100 Mechanical Ventilator 30 68 20 30 12/05/18 20:00 30 12/05/18 20:00 Mechanical Ventilator 12/05/18 20:00 96.4 70 25 100/65 (77) 100 12/05/18 19:21 70 12/05/18 19:12 68 25 30 12/05/18 17:55 74 22 100 Mechanical Ventilator 30 12/05/18 16:36 72 26 30 12/05/18 16:00 97.0 74 24 166/90 (115) 100 12/05/18 16:00 30 12/05/18 16:00 Mechanical Ventilator 12/05/18 15:27 73 12/05/18 14:50 75 24 30 12/05/18 14:45 74 132/71 12/05/18 12:59 73 26 30 12/05/18 12:00 Mechanical Ventilator 12/05/18 12:00 96.3 71 23 104/65 (78) 100 12/05/18 12:00 30 12/05/18 11:54 80 12/05/18 11:03 71 22 30 Intake and Output 12/05/18 12/06/18 19:00 07:00 Intake Total 895 ml 620 ml Output Total 1700 ml Balance -805 ml 620 ml Intake Free Water 60 ml 100 ml Tube Feeding 585 ml 520 ml Blood Product 250 ml Output Urine Total 1700 ml # Bowel Movements 1 Laboratory Tests 12/05/18 10:40: Sodium Level 128#L, Potassium Level 3.7, Chloride Level 94L, Carbon Dioxide Level 26, Anion Gap 8, Blood Urea Nitrogen 22H, Creatinine 0.6, Estimat Glomerular Filtration Rate , Glucose Level 139H, Calcium Level 8.2L 12/05/18 17:15: White Blood Count 11.3H, Red Blood Count 3.03L, Hemoglobin 8.1L, Hematocrit 24.2L, Mean Corpuscular Volume 80, Mean Corpuscular Hemoglobin 26.8L, Mean Corpuscular Hemoglobin Concent 33.6, Red Cell Distribution Width 17.1H, Platelet Count 181, Mean Platelet Volume 6.3L, Neutrophils (%) (Auto) 77.7H, Lymphocytes (%) (Auto) 6.2L, Monocytes (%) (Auto) 13.3H, Eosinophils (%) (Auto) 0.7, Basophils (%) (Auto) 2.0 12/06/18 00:00: Stool Occult Blood [Pending] 12/06/18 03:22: Sodium Level 129L, Potassium Level 3.8, Chloride Level 94L, Carbon Dioxide Level 30, Anion Gap 5, Blood Urea Nitrogen 26H, Creatinine 0.6, Estimat Glomerular Filtration Rate , Glucose Level 102, Calcium Level 8.1L, White Blood Count 12.2H, Red Blood Count 2.84L, Hemoglobin 7.6L, Hematocrit 22.3L, Mean Corpuscular Volume 78L, Mean Corpuscular Hemoglobin 26.9L, Mean Corpuscular Hemoglobin Concent 34.3, Red Cell Distribution Width 18.2H, Platelet Count 184, Mean Platelet Volume 6.3L, Neutrophils (%) (Auto) , Lymphocytes (%) (Auto) , Monocytes (%) (Auto) , Eosinophils (%) (Auto) , Basophils (%) (Auto) , Total Bilirubin 0.4, Aspartate Amino Transf (AST/SGOT) 47H, Alanine Aminotransferase ( ALT/SGPT) 39, Alkaline Phosphatase 433H, Total Protein 5.1L, Albumin 1.3L, Globulin 3.8, Albumin/Globulin Ratio 0.3L Height (Feet): 5 Height (Inches): 8.00 Weight (Pounds): 244 General Appearance: no apparent distress EENT: PERRL/EOMI Neck: supple Cardiovascular: normal rate Respiratory/Chest: decreased breath sounds Abdomen: normal bowel sounds, non tender, soft Extremities: non-tender Casper Humphries MD Dec 06, 2018 09:47
--- NOTE | 2018-12-06 11:26 | Diagnostic Imaging Report ---
Indication: Shortness of breath Technique: XRAY Chest 1v Comparison: 11/30/2018 Findings: Tracheostomy tube and right arm PICC line stable position. Heart size and mediastinal contours appear stable. There is worsening aeration with significant increased airspace opacities now involving the entire right lung. No significant opacities are noted in the left. There may be a layering right-sided pleural effusion. No evidence of pneumothorax. Osseous structures stable. IMPRESSION: Significant worsening of aeration with increased airspace opacities in the right, involving nearly the entire right lung. Although findings may be related to asymmetric pulmonary edema the possibility of pneumonia has to be considered. Clinical correlation and follow-up recommended. Likely layering right-sided pleural effusion. Tracheostomy tube and PICC line remain in place.
--- NOTE | 2018-12-06 11:34 | NUR ---
*-* DISCHARGE PLANNING *-* PATIENT HAS BEEN REFERRED BACK TO: [facility] P: [phone] F: [phone]
[2018-12-06 12:00] VITALS: BP 112/64
--- NOTE | 2018-12-06 12:00 | Pulmonology Progress Note ---
Assessment/Plan Problems: (1) Ventilator dependence (2) Tracheostomy dependence (3) UTI (urinary tract infection) (4) Fever (5) Anoxic brain damage (6) Tongue abnormality (7) Seizure disorder (8) Colon adenocarcinoma (9) HTN (hypertension) (10) Sepsis (11) Diabetes (12) Abnormal LFTs (13) Protein calorie malnutrition (14) Gastrostomy in place (15) longterm resident (16) Decubitus skin ulcer Assessment/Plan Continue ventilatory support/settings reviewed Titrate down FiO2 to keep SaO2 > 90% Optimize pulmonary hygiene/mobilize as tolerated RTC and PRN HHN's Observe off Abx per ID, F/U Cx's F/U cards recs Monitor volumes and renal function, diuresis as able DVT Px: LMWH held 2/2 anemia Transfuse PRBC Per record seen by OMFS and no note written, no intervention recommended, no ENT available to see FC, continue to discuss GOC --> consider family meeting Wound care Subjective Allergies: Coded Allergies: Crayfish (Unverified Allergy, Unknown, 11/11/18) Uncoded Allergies: Crawfish (Allergy, Unknown, 11/09/18) Subjective AFVSS stable on vent no sig secretions no distress Objective Last 24 Hour Vital Signs Date Time Temp Pulse Resp B/P (MAP) Pulse Ox O2 Delivery O2 Flow Rate FiO2 12/06/18 11:10 80 28 30 12/06/18 09:07 79 22 30 12/06/18 08:58 80 120/68 12/06/18 08:00 30 12/06/18 08:00 Mechanical Ventilator 12/06/18 08:00 96.0 80 22 120/68 (85) 100 12/06/18 07:40 72 12/06/18 07:15 67 20 100 Mechanical Ventilator 30 71 17 30 12/06/18 05:59 67 102/63 12/06/18 05:08 67 20 30 12/06/18 04:00 30 12/06/18 03:57 Mechanical Ventilator 12/06/18 03:55 96.0 70 24 102/63 (76) 100 12/06/18 03:48 69 12/06/18 03:02 74 23 30 12/06/18 01:07 72 22 100 12/06/18 00:57 77 26 100 Mechanical Ventilator 30 77 26 30 12/06/18 00:00 Mechanical Ventilator 12/06/18 00:00 96.1 75 27 118/71 (87) 100 12/05/18 23:45 71 24 30 12/05/18 23:29 72 12/05/18 22:38 72 109/66 12/05/18 20:42 66 19 100 12/05/18 20:32 69 23 100 Mechanical Ventilator 30 68 20 30 12/05/18 20:00 30 12/05/18 20:00 Mechanical Ventilator 12/05/18 20:00 96.4 70 25 100/65 (77) 100 12/05/18 19:21 70 12/05/18 19:12 68 25 30 12/05/18 17:55 74 22 100 Mechanical Ventilator 30 12/05/18 16:36 72 26 30 12/05/18 16:00 97.0 74 24 166/90 (115) 100 12/05/18 16:00 30 12/05/18 16:00 Mechanical Ventilator 12/05/18 15:27 73 12/05/18 14:50 75 24 30 12/05/18 14:45 74 132/71 12/05/18 12:59 73 26 30 12/05/18 12:00 Mechanical Ventilator 12/05/18 12:00 96.3 71 23 104/65 (78) 100 12/05/18 12:00 30 Intake and Output 12/05/18 12/06/18 19:00 07:00 Intake Total 895 ml 620 ml Output Total 1700 ml Balance -805 ml 620 ml Intake Free Water 60 ml 100 ml Tube Feeding 585 ml 520 ml Blood Product 250 ml Output Urine Total 1700 ml # Bowel Movements 1 General Appearance: no acute distress, cachetic, other - non verbal HEENT: normocephalic, atraumatic, anicteric, mucous membranes moist, other - macroglossia Respiratory/Chest: crackles/rales Cardiovascular: normal peripheral pulses, normal rate, regular rhythm Abdomen: normal bowel sounds, soft, non tender, no organomegaly, non distended , no mass, other - GT Extremities: no cyanosis, no clubbing, other - 1+ LEONORA Laboratory Tests 12/05/18 17:15: White Blood Count 11.3H, Red Blood Count 3.03L, Hemoglobin 8.1L, Hematocrit 24.2L, Mean Corpuscular Volume 80, Mean Corpuscular Hemoglobin 26.8L, Mean Corpuscular Hemoglobin Concent 33.6, Red Cell Distribution Width 17.1H, Platelet Count 181, Mean Platelet Volume 6.3L, Neutrophils (%) (Auto) 77.7H, Lymphocytes (%) (Auto) 6.2L, Monocytes (%) (Auto) 13.3H, Eosinophils (%) (Auto) 0.7, Basophils (%) (Auto) 2.0 12/06/18 00:00: Stool Occult Blood Negative 12/06/18 03:22: White Blood Count 12.2H, Red Blood Count 2.84L, Hemoglobin 7.6L, Hematocrit 22.3L, Mean Corpuscular Volume 78L, Mean Corpuscular Hemoglobin 26.9L, Mean Corpuscular Hemoglobin Concent 34.3, Red Cell Distribution Width 18.2H, Platelet Count 184, Mean Platelet Volume 6.3L, Neutrophils (%) (Auto) , Lymphocytes (%) (Auto) , Monocytes (%) (Auto) , Eosinophils (%) (Auto) , Basophils (%) (Auto) , Sodium Level 129L, Potassium Level 3.8, Chloride Level 94L, Carbon Dioxide Level 30, Anion Gap 5, Blood Urea Nitrogen 26H, Creatinine 0.6, Estimat Glomerular Filtration Rate , Glucose Level 102, Calcium Level 8.1L , Total Bilirubin 0.4, Aspartate Amino Transf (AST/SGOT) 47H, Alanine Aminotransferase (ALT/SGPT) 39, Alkaline Phosphatase 433H, Total Protein 5.1L, Albumin 1.3L, Globulin 3.8, Albumin/Globulin Ratio 0.3L Current Medications Medications (Trade) Dose Ordered Sig/Lupe Route PRN Reason Start Time Stop Time Status Last Admin Dose Admin Acetaminophen (Tylenol) 650 mg Q4H PRN GT Mild Pain/Temp > 100.5 11/09/18 05:00 12/09/18 04:59 11/24/18 21:50 Albuterol/ Ipratropium (Albuterol/ Ipratropium) 3 ml Q4H PRN HHN Shortness of Breath 12/05/18 19:00 12/10/18 18:59 Albuterol/ Ipratropium (Albuterol/ Ipratropium) 3 ml Q6HRT HHN 12/05/18 19:00 12/10/18 18:59 12/06/18 07:19 Amlodipine Besylate (Norvasc) 5 mg DAILY GT 12/05/18 09:00 12/09/18 08:59 12/06/18 08:58 Bisacodyl (Dulcolax) 10 mg DAILY PRN RECTAL Constipation 11/09/18 05:00 12/09/18 04:59 Chlorhexidine Gluconate (Corazon-Hex 2%) 1 applic DAILY@2000 TOPIC 11/12/18 20:00 12/12/18 19:59 12/05/18 20:27 Dextrose (Dextrose 50%) 25 ml Q30M PRN IV Hypoglycemia 11/09/18 04:45 12/09/18 04:44 Dextrose (Dextrose 50%) 50 ml Q30M PRN IV Hypoglycemia 11/09/18 04:45 12/09/18 04:44 11/09/18 09:09 Enoxaparin Sodium (Lovenox) 40 mg DAILY SUBQ 11/09/18 09:00 12/09/18 08:59 12/04/18 08:58 Famotidine (Pepcid) 20 mg EVERY 12 HOURS GT 11/09/18 21:00 12/09/18 08:59 12/06/18 08:58 Furosemide (Lasix) 40 mg EVERY 12 HOURS IV 12/04/18 21:00 01/03/19 20:59 12/06/18 08:58 Insulin Aspart (NovoLOG) Q6HR SUBQ 11/09/18 06:00 12/09/18 05:59 12/06/18 11:56 Insulin Detemir (Levemir) 4 units EVERY 12 HOURS SUBQ 11/16/18 21:00 12/09/18 08:59 12/06/18 09:03 Labetalol HCl (Normodyne) 200 mg Q8HR GT 11/09/18 06:00 12/09/18 05:59 12/06/18 05:59 Lactulose (Cephulac) 10 gm THREE TIMES A DAY GT 11/27/18 18:00 12/27/18 12:59 12/05/18 17:50 Levetiracetam (Keppra) 1,500 mg Q12HR GT 11/09/18 09:00 12/09/18 08:59 12/06/18 08:57 Magnesium Hydroxide (Mom) 30 ml DAILY PRN GT Constipation 11/09/18 05:00 12/09/18 04:59 Ondansetron HCl (Zofran) 4 mg Q6H PRN GT Nausea & Vomiting 11/09/18 05:00 12/09/18 04:59 Phenobarbital (PHENobarbital) 60 mg BID GT 11/09/18 09:00 12/09/18 08:59 12/06/18 08:57 Phenytoin (Dilantin) 100 mg Q8HR GT 11/09/18 06:00 12/09/18 05:59 12/06/18 06:00 Polyethylene Glycol (Miralax) 17 gm DAILYPRN PRN GT Constipation 11/14/18 10:30 12/12/18 10:29 Sennosides (Senokot) 8.6 mg EVERY 12 HOURS GT 11/09/18 21:00 12/09/18 08:59 12/05/18 20:27 Balbir Dejesus MD Dec 06, 2018 12:00
--- NOTE | 2018-12-06 13:59 | Surgery Progress Note ---
Surgery Progress Note Subjective Additional Comments d/c planning improved Objective Last 24 Hour Vital Signs Date Time Temp Pulse Resp B/P (MAP) Pulse Ox O2 Delivery O2 Flow Rate FiO2 12/06/18 13:29 80 23 99 Mechanical Ventilator 30 80 23 30 12/06/18 12:00 96.6 68 25 112/64 (80) 100 12/06/18 12:00 30 12/06/18 11:10 80 28 30 12/06/18 09:07 79 22 30 12/06/18 08:58 80 120/68 12/06/18 08:00 30 12/06/18 08:00 Mechanical Ventilator 12/06/18 08:00 96.0 80 22 120/68 (85) 100 12/06/18 07:40 72 12/06/18 07:15 67 20 100 Mechanical Ventilator 30 71 17 30 12/06/18 05:59 67 102/63 12/06/18 05:08 67 20 30 12/06/18 04:00 30 12/06/18 03:57 Mechanical Ventilator 12/06/18 03:55 96.0 70 24 102/63 (76) 100 12/06/18 03:48 69 12/06/18 03:02 74 23 30 12/06/18 01:07 72 22 100 12/06/18 00:57 77 26 100 Mechanical Ventilator 30 77 26 30 12/06/18 00:00 Mechanical Ventilator 12/06/18 00:00 96.1 75 27 118/71 (87) 100 12/05/18 23:45 71 24 30 12/05/18 23:29 72 12/05/18 22:38 72 109/66 12/05/18 20:42 66 19 100 12/05/18 20:32 69 23 100 Mechanical Ventilator 30 68 20 30 12/05/18 20:00 30 12/05/18 20:00 Mechanical Ventilator 12/05/18 20:00 96.4 70 25 100/65 (77) 100 12/05/18 19:21 70 12/05/18 19:12 68 25 30 12/05/18 17:55 74 22 100 Mechanical Ventilator 30 12/05/18 16:36 72 26 30 12/05/18 16:00 97.0 74 24 166/90 (115) 100 12/05/18 16:00 30 12/05/18 16:00 Mechanical Ventilator 12/05/18 15:27 73 12/05/18 14:50 75 24 30 12/05/18 14:45 74 132/71 I&O Intake and Output 12/05/18 12/06/18 19:00 07:00 Intake Total 895 ml 620 ml Output Total 1700 ml Balance -805 ml 620 ml Intake Free Water 60 ml 100 ml Tube Feeding 585 ml 520 ml Blood Product 250 ml Output Urine Total 1700 ml # Bowel Movements 1 Dressing: saturated Wound: other Drains: other Cardiovascular: RSR Respiratory: clear, decreased breath sounds Abdomen: soft, present bowel sounds, non-distended Extremities: no tenderness, no cyanosis, other Laboratory Tests Test 12/05/18 17:15 12/06/18 00:00 12/06/18 03:22 White Blood Count 11.3 K/UL (4.8-10.8) H 12.2 K/UL (4.8-10.8) H Red Blood Count 3.03 M/UL (4.20-5.40) L 2.84 M/UL (4.20-5.40) L Hemoglobin 8.1 G/DL (12.0-16.0) L 7.6 G/DL (12.0-16.0) L Hematocrit 24.2 % (37.0-47.0) L 22.3 % (37.0-47.0) L Mean Corpuscular Volume 80 FL (80-99) 78 FL (80-99) L Mean Corpuscular Hemoglobin 26.8 PG (27.0-31.0) L 26.9 PG (27.0-31.0) L Mean Corpuscular Hemoglobin Concent 33.6 G/DL (32.0-36.0) 34.3 G/DL (32.0-36.0) Red Cell Distribution Width 17.1 % (11.6-14.8) H 18.2 % (11.6-14.8) H Platelet Count 181 K/UL (150-450) 184 K/UL (150-450) Mean Platelet Volume 6.3 FL (6.5-10.1) L 6.3 FL (6.5-10.1) L Neutrophils (%) (Auto) 77.7 % (45.0-75.0) H % (45.0-75.0) Lymphocytes (%) (Auto) 6.2 % (20.0-45.0) L % (20.0-45.0) Monocytes (%) (Auto) 13.3 % (1.0-10.0) H % (1.0-10.0) Eosinophils (%) (Auto) 0.7 % (0.0-3.0) % (0.0-3.0) Basophils (%) (Auto) 2.0 % (0.0-2.0) % (0.0-2.0) Stool Occult Blood Negative (NEGATIVE) Sodium Level 129 MMOL/L (136-145) L Potassium Level 3.8 MMOL/L (3.5-5.1) Chloride Level 94 MMOL/L (98-107) L Carbon Dioxide Level 30 MMOL/L (21-32) Anion Gap 5 mmol/L (5-15) Blood Urea Nitrogen 26 mg/dL (7-18) H Creatinine 0.6 MG/DL (0.55-1.30) Estimat Glomerular Filtration Rate mL/min (>60) Glucose Level 102 MG/DL (74-106) Calcium Level 8.1 MG/DL (8.5-10.1) L Total Bilirubin 0.4 MG/DL (0.2-1.0) Aspartate Amino Transf (AST/SGOT) 47 U/L (15-37) H Alanine Aminotransferase (ALT/SGPT) 39 U/L (12-78) Alkaline Phosphatase 433 U/L (46-116) H Total Protein 5.1 G/DL (6.4-8.2) L Albumin 1.3 G/DL (3.4-5.0) L Globulin 3.8 g/dL Albumin/Globulin Ratio 0.3 (1.0-2.7) L Plan Problems: (1) Fever (2) Tongue abnormality Assessment & Plan: patients jaw clenched closed and tongue has been stuck for some time. tongue split from middle teeth and now in two. edema and unable to reduce keep tongue moist. apply lube jelly prn dryness. will monitor do not recommend surgical intervention for this current medical condition spoke with family. ENT plan to see. OMFS no intervention (3) Tracheostomy dependence (4) Sepsis Assessment & Plan: gb no stones 6mm polyp no acute surgical intervention planned trend labs improving labs improved DAILY ESTIMATED NEEDS: Needs based on Critical care, sepsis, wound 60kg adj 22-30 kcals/kg [id number] total kcals 1.25-2 g protein/kg 75-120 g total protein Fluid per MD, on lasix NUTRITION DIAGNOSIS: * Swallowing difficulty r/t respiratory status as evidenced by pt is vent dep via trach and PEG dep. * Increased kcal and pro needs r/t wound healing and sepsis as evidenced by pt w/ sacral and R heel wounds, febrile (Tmax 101.5). CURRENT TF: Jevity 1.2 @50 ml/hr x16 hrs ENTERAL NUTRITION RECOMMENDATIONS: Glucerna 1.2 @65ml/hr x18 hrs + Prosource x1 daily to provide 1170ml, 1404 kcal, 70g pro + 11g pro, 942 free H2O - REC TF CHANGE AND INCREASE TO BETTER MEET EST NEEDS - TF TO BE HELD FOR ONE HR BEFORE AND AFTER DILANTIN MEDS - START @20ML/HR, ADVANCE TOLERATED 15ML/HR Q4-6 HRS TO GOAL - FLUSH PER MD, HOB OVRE 30 DEGREES ADDITIONAL RECOMMENDATIONS: 1) CALIBRATED BED SCALE W/ ADDED P200 MATTRESS + PUMP 2) ON LASIX, MONITOR LYTES AND HYDRATION STATUS DAILY 3) TF TO RUN A MAX OF 18 HRS/DAY W/ DILANTIN TID PER PHARMACY 4) REC TF CHANGE TO CARB CONTROL FORMULA 5) WOUND CARE: ADD CHAYITO BID + VIT C 250MG DAILY (5) Fever Assessment & Plan: CT A/P with findings Impression: No definite acute process Diverticulosis. No evidence of diverticulitis Extensive edema of the subcutaneous fat. 2 cm focal fluid collection/edema seen within the incision Moderate amount retained dense stool. Correlate with any clinical history of constipation Hiatal hernia. Gastrostomy Left renal parapelvic cysts Apparent prior hysterectomy (6) Decubitus skin ulcer Assessment & Plan: Pt presented on admission with full thickness sacral pressure injury.Base of wound is 20% necrotic , 80% slough. borders are macerated . Mild odor noted. (L)8.4cm x (W) 6.5cm. Periwound skin tone is darker without erythema,induration or elevation in skin temp. Both heels are non -blanchable and both are fluctuant when palpated. Tx.Plan: Clean wound with saline. Apply Therahoney. Aply Moisture Barrier paste periwound. Cover with Optifoam drsg. Change every 3 days and prn. Apply Cavilon Skin BArrier to both heels. Cover each heel with Optifoam drsg. Change every 7 days and prn. APM/DEIRDRE mattress overlay. Reposition at least every 2hours or as tolerated. Off-load heels with pillow. will follow with recs thank you Preet Hylton Dec 06, 2018 13:59
--- NOTE | 2018-12-06 14:30 | NUR ---
NURSE NOTES: BLOOD TRANSFUSION TOLERATED. NO SIGNS OF DISTRESS. WILL CONTINUE TO MONITOR.
--- NOTE | 2018-12-06 15:26 | Nephrology Progress Note ---
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- hypo-osmolar - no improving with hydration - continue lasix 40 IV BID - DC free water flushes - Abx in NS - follow BMP - would need 3% only if S Na drops lower (below 120) #H/o HTN- controlled - decreased amlodipine to 5 mg daily - labetalol 200mg TID #Hypokalemia- repleted - stable today Subjective Subjective sodium gradually improving with diuresis 129 this morning BP stable afebrile Objective Objective Last 24 Hour Vital Signs Date Time Temp Pulse Resp B/P (MAP) Pulse Ox O2 Delivery O2 Flow Rate FiO2 12/06/18 14:59 85 23 30 12/06/18 13:29 80 23 99 Mechanical Ventilator 30 80 23 30 12/06/18 12:00 96.6 68 25 112/64 (80) 100 12/06/18 12:00 30 12/06/18 11:10 80 28 30 12/06/18 09:07 79 22 30 12/06/18 08:58 80 120/68 12/06/18 08:00 30 12/06/18 08:00 Mechanical Ventilator 12/06/18 08:00 96.0 80 22 120/68 (85) 100 12/06/18 07:40 72 12/06/18 07:15 67 20 100 Mechanical Ventilator 30 71 17 30 12/06/18 05:59 67 102/63 12/06/18 05:08 67 20 30 12/06/18 04:00 30 12/06/18 03:57 Mechanical Ventilator 12/06/18 03:55 96.0 70 24 102/63 (76) 100 12/06/18 03:48 69 12/06/18 03:02 74 23 30 12/06/18 01:07 72 22 100 12/06/18 00:57 77 26 100 Mechanical Ventilator 30 77 26 30 12/06/18 00:00 Mechanical Ventilator 12/06/18 00:00 96.1 75 27 118/71 (87) 100 12/05/18 23:45 71 24 30 12/05/18 23:29 72 9/17/19 22:38 72 109/66 12/05/18 20:42 66 19 100 12/05/18 20:32 69 23 100 Mechanical Ventilator 30 68 20 30 12/05/18 20:00 30 12/05/18 20:00 Mechanical Ventilator 12/05/18 20:00 96.4 70 25 100/65 (77) 100 12/05/18 19:21 70 12/05/18 19:12 68 25 30 12/05/18 17:55 74 22 100 Mechanical Ventilator 30 12/05/18 16:36 72 26 30 12/05/18 16:00 97.0 74 24 166/90 (115) 100 12/05/18 16:00 30 12/05/18 16:00 Mechanical Ventilator 12/05/18 15:27 73 Intake and Output 12/05/18 12/06/18 19:00 07:00 Intake Total 895 ml 620 ml Output Total 1700 ml Balance -805 ml 620 ml Intake Free Water 60 ml 100 ml Tube Feeding 585 ml 520 ml Blood Product 250 ml Output Urine Total 1700 ml # Bowel Movements 1 Laboratory Tests 12/05/18 17:15: White Blood Count 11.3H, Red Blood Count 3.03L, Hemoglobin 8.1L, Hematocrit 24.2L, Mean Corpuscular Volume 80, Mean Corpuscular Hemoglobin 26.8L, Mean Corpuscular Hemoglobin Concent 33.6, Red Cell Distribution Width 17.1H, Platelet Count 181, Mean Platelet Volume 6.3L, Neutrophils (%) (Auto) 77.7H, Lymphocytes (%) (Auto) 6.2L, Monocytes (%) (Auto) 13.3H, Eosinophils (%) (Auto) 0.7, Basophils (%) (Auto) 2.0 12/06/18 00:00: Stool Occult Blood Negative 12/06/18 03:22: White Blood Count 12.2H, Red Blood Count 2.84L, Hemoglobin 7.6L, Hematocrit 22.3L, Mean Corpuscular Volume 78L, Mean Corpuscular Hemoglobin 26.9L, Mean Corpuscular Hemoglobin Concent 34.3, Red Cell Distribution Width 18.2H, Platelet Count 184, Mean Platelet Volume 6.3L, Neutrophils (%) (Auto) , Lymphocytes (%) (Auto) , Monocytes (%) (Auto) , Eosinophils (%) (Auto) , Basophils (%) (Auto) , Sodium Level 129L, Potassium Level 3.8, Chloride Level 94L, Carbon Dioxide Level 30, Anion Gap 5, Blood Urea Nitrogen 26H, Creatinine 0.6, Estimat Glomerular Filtration Rate , Glucose Level 102, Calcium Level 8.1L , Total Bilirubin 0.4, Aspartate Amino Transf (AST/SGOT) 47H, Alanine Aminotransferase (ALT/SGPT) 39, Alkaline Phosphatase 433H, Total Protein 5.1L, Albumin 1.3L, Globulin 3.8, Albumin/Globulin Ratio 0.3L Height (Feet): 5 Height (Inches): 8.00 Weight (Pounds): 244 Objective General Appearance: no apparent distress, lethargic, + trach Neck: non-tender, normal alignment, supple, normal inspection, no JVD Rhythm: NSR Cardiovascular: normal peripheral pulses, regular rhythm, tachycardia Respiratory/Chest: biltateral faint wheezes Abdomen: normal bowel sounds, non tender, soft, + PEG Diana Sommers M.D. Dec 06, 2018 15:26
--- NOTE | 2018-12-06 15:36 | General Progress Note ---
Assessment/Plan Problem List: (1) Gram-negative pneumonia ICD Codes: J15.6 - Pneumonia due to other Gram-negative bacteria SNOMED: 370100195 (2) MRSA (methicillin resistant staphylococcus aureus) pneumonia ICD Codes: J15.212 - Pneumonia due to Methicillin resistant Staphylococcus aureus SNOMED: 927367354209923 (3) Fever ICD Codes: R50.9 - Fever, unspecified SNOMED: 054404023 (4) UTI (urinary tract infection) ICD Codes: N39.0 - Urinary tract infection, site not specified SNOMED: 13767512 (5) Tracheostomy dependence ICD Codes: Z93.0 - Tracheostomy status SNOMED: 586517120 (6) Ventilator dependence ICD Codes: Z99.11 - Dependence on respirator [ventilator] status SNOMED: 284760965 (7) Protein calorie malnutrition ICD Codes: E46 - Unspecified protein-calorie malnutrition SNOMED: 972731111 (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 SNOMED: 24591821 (9) Drug rash ICD Codes: L27.0 - Generalized skin eruption due to drugs and medicaments taken internally SNOMED: 42654889 (10) Line sepsis ICD Codes: T85.79XA - Infection and inflammatory reaction due to other internal prosthetic devices, implants and grafts, initial encounter; A41.9 - Sepsis, unspecified organism SNOMED: 76547001, 723241503 (11) Bacteremia ICD Codes: R78.81 - Bacteremia SNOMED: 1471750 (12) Hyponatremia ICD Codes: E87.1 - Hypo-osmolality and hyponatremia SNOMED: 41289353 (13) Sepsis ICD Codes: A41.9 - Sepsis, unspecified organism SNOMED: 40837250 (14) Seizure disorder ICD Codes: G40.909 - Epilepsy, unspecified, not intractable, without status epilepticus SNOMED: 351414634 (15) Diabetes ICD Codes: E11.9 - Type 2 diabetes mellitus without complications SNOMED: 56269822 (16) Colon adenocarcinoma ICD Codes: C18.9 - Malignant neoplasm of colon, unspecified SNOMED: 577065307 (17) Anoxic brain damage ICD Codes: G93.1 - Anoxic brain damage, not elsewhere classified SNOMED: 040819412 (18) Decubitus skin ulcer ICD Codes: L89.90 - Pressure ulcer of unspecified site, unspecified stage SNOMED: 295924739 Status: stable Assessment/Plan: 78-year-old female who is trach dependent who [facility] and found to have UTI and bacteremia. 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 fungal uti vs colonization ID consult appreciate Rec Vancomycin and Meropenem started 11/16 ( Zosyn stopped) , fungal coverage with Diflucan added 11/18. Repeat sputum cultures with RAULTELLA PLANTICOA and PROVIDENCIA STUARTI resistant to most antibiotics Developed morbilliform rash on meropenem, this was stopped and rash is better, has persistent fevers. Started Polymyxin and flagyl 11/21. Added vancomycin and micafungin on 11/24. NOW OFF all antibiotics and afebrile, no leukocytosis picc cultures, no growth so far. repeat sputum cultures Discussed with daughter at bedside. CT abdomen pelvis shows no acute process Removed PICC and place new line 11/13/18 Echo to eval for vegetation: negative Chest x-ray reviewed, no change #hyponatremia, hypotonic. Intravascularly depleted vs SIADH s/p hypertonic saline which has not corrected sodium. Serum Cortisol and TSH WNL , valproic acid stopped. Urea unavailable at the hospital. Free water stopped via GT. urine osmol, serum urea, urine sodium reviewed Resumed lasix 40mg BID nephrology consult with Dr. Diana Sommers. # Transaminitis - worsening, meds vs passive congestion - trend lft's - GI consult, appreciate recs - ab us: reviewed - hep panel negative #Elevated troponin secondary to sepsis versus ACS Cardiology consult, appreciate recs Medications per cardiology #Microcytic anemia- mixed anemia of chronic inflammation and iron deficiency. Start ferrous sulfate TID , transfused 1 uprbc 11/27. and another unit prbc today 12/05. #Hypertension- improved Continue current medications, hydralazine as needed hypertension. Amlodipine dose reduced due to borderline BP #Vent dependent Pulmonary consult, appreciate recs Vent management per pulmonary #Hypokalemia, hypophosphatemia, hypomagnesemia Replace, continue to monitor # Chronic tongue wound Supportive care On examination the patient has a sharp lower incisor present that is likely the culprit for the tongue laceration when she was intubated in the prior hospitalization at [facility] OMFS consultation Dr. Benavides completed ( no note left ) and I spoke with him over the phone after the visit. He does not recommend any surgery. ONLY bite block MOLT if available to decompress the tongue and get the remainder teeth out of the tongue way. Keep moisture in the lips and tongue. ENT consult difficult to obtain- pending # History of mood disorder Seen by psychiatry and on Depakote. Level was checked # Seizure history - Discussed with Dr. Eric who knew the patient from [facility] and confirmed that she did have seizure activity and was on multiple AED regimen. - Will continue Depakote ( 28 level ) and (Phenytoin 4.3 ) - no active seizure activity at this time. Keep current dose. - Both Dr. Eric and Mariana not available to come to [facility] for consult and not acute need at this time. #Diabetes Mellitus, controlled - glucose noted in the 90-110's - Decreased Levemir to 4 units q 12 hours # Disposition - SNF when cleared by ID. Full code I discussed goals of care and current condition with daughter at bedside again. She wants mom to be transferred to [facility]. I spent 15 minutes at bedside discussing goals of care with daughter. prognosis guarded timing of this note may not reflect time of encounter. I spent 40 minutes on this encounter. Great than 50 percent spent of care planning. Subjective Date patient seen: Dec 06, 2018 ROS Limited/Unobtainable: Yes Allergies: Coded Allergies: Crayfish (Unverified Allergy, Unknown, 11/11/18) Uncoded Allergies: Crawfish (Allergy, Unknown, 11/09/18) Subjective obtunded on vent, afebrile off antibiotics sodium stable Objective Last 24 Hour Vital Signs Date Time Temp Pulse Resp B/P (MAP) Pulse Ox O2 Delivery O2 Flow Rate FiO2 12/06/18 15:12 90 110/65 12/06/18 14:59 85 23 30 12/06/18 13:29 80 23 99 Mechanical Ventilator 30 80 23 30 12/06/18 12:00 96.6 68 25 112/64 (80) 100 12/06/18 12:00 30 12/06/18 11:10 80 28 30 12/06/18 09:07 79 22 30 12/06/18 08:58 80 120/68 12/06/18 08:00 30 12/06/18 08:00 Mechanical Ventilator 12/06/18 08:00 96.0 80 22 120/68 (85) 100 12/06/18 07:40 72 12/06/18 07:15 67 20 100 Mechanical Ventilator 30 71 17 30 12/06/18 05:59 67 102/63 12/06/18 05:08 67 20 30 12/06/18 04:00 30 12/06/18 03:57 Mechanical Ventilator 12/06/18 03:55 96.0 70 24 102/63 (76) 100 12/06/18 03:48 69 12/06/18 03:02 74 23 30 12/06/18 01:07 72 22 100 12/06/18 00:57 77 26 100 Mechanical Ventilator 30 77 26 30 12/06/18 00:00 Mechanical Ventilator 12/06/18 00:00 96.1 75 27 118/71 (87) 100 12/05/18 23:45 71 24 30 12/05/18 23:29 72 12/05/18 22:38 72 109/66 12/05/18 20:42 66 19 100 12/05/18 20:32 69 23 100 Mechanical Ventilator 30 68 20 30 12/05/18 20:00 30 12/05/18 20:00 Mechanical Ventilator 12/05/18 20:00 96.4 70 25 100/65 (77) 100 12/05/18 19:21 70 12/05/18 19:12 68 25 30 12/05/18 17:55 74 22 100 Mechanical Ventilator 30 12/05/18 16:36 72 26 30 12/05/18 16:00 97.0 74 24 166/90 (115) 100 12/05/18 16:00 30 12/05/18 16:00 Mechanical Ventilator Intake and Output 12/05/18 12/06/18 19:00 07:00 Intake Total 895 ml 620 ml Output Total 1700 ml Balance -805 ml 620 ml Intake Free Water 60 ml 100 ml Tube Feeding 585 ml 520 ml Blood Product 250 ml Output Urine Total 1700 ml # Bowel Movements 1 Laboratory Tests 12/05/18 17:15: White Blood Count 11.3H, Red Blood Count 3.03L, Hemoglobin 8.1L, Hematocrit 24.2L, Mean Corpuscular Volume 80, Mean Corpuscular Hemoglobin 26.8L, Mean Corpuscular Hemoglobin Concent 33.6, Red Cell Distribution Width 17.1H, Platelet Count 181, Mean Platelet Volume 6.3L, Neutrophils (%) (Auto) 77.7H, Lymphocytes (%) (Auto) 6.2L, Monocytes (%) (Auto) 13.3H, Eosinophils (%) (Auto) 0.7, Basophils (%) (Auto) 2.0 12/06/18 00:00: Stool Occult Blood Negative 12/06/18 03:22: White Blood Count 12.2H, Red Blood Count 2.84L, Hemoglobin 7.6L, Hematocrit 22.3L, Mean Corpuscular Volume 78L, Mean Corpuscular Hemoglobin 26.9L, Mean Corpuscular Hemoglobin Concent 34.3, Red Cell Distribution Width 18.2H, Platelet Count 184, Mean Platelet Volume 6.3L, Neutrophils (%) (Auto) , Lymphocytes (%) (Auto) , Monocytes (%) (Auto) , Eosinophils (%) (Auto) , Basophils (%) (Auto) , Sodium Level 129L, Potassium Level 3.8, Chloride Level 94L, Carbon Dioxide Level 30, Anion Gap 5, Blood Urea Nitrogen 26H, Creatinine 0.6, Estimat Glomerular Filtration Rate , Glucose Level 102, Calcium Level 8.1L , Total Bilirubin 0.4, Aspartate Amino Transf (AST/SGOT) 47H, Alanine Aminotransferase (ALT/SGPT) 39, Alkaline Phosphatase 433H, Total Protein 5.1L, Albumin 1.3L, Globulin 3.8, Albumin/Globulin Ratio 0.3L Height (Feet): 5 Height (Inches): 8.00 Weight (Pounds): 244 Objective General Appearance: no apparent distress, other - unresponsive on vent EENT: PERRL/EOMI, other - enlarged tongue protruding, lower lip severely swollen Neck: supple Cardiovascular: normal rate, regular rhythm Respiratory/Chest: lungs clear Abdomen: soft Neurologic: unresponsive Skin: Morbilliform rash to bilateral upper extremities and thighs Neftaly Walters M.D. Dec 06, 2018 15:36
[2018-12-06 16:00] VITALS: BP 110/65
[2018-12-06] MEDS ORDERED: Polymyxin B Sulfate 500,000 UNITS in D5W 500ml 500 ML IVPB SCH (16:30)
--- NOTE | 2018-12-06 17:00 | Infectious Diseases Prog Note ---
Assessment/Plan Assessment/Plan ASSESSMENT AND PLAN: 1. new HCAP, aspiration pna risk, chest x-ray worse, leukocytosis, sepsis, hx wounds and surgery management, hx fevers, hx line infection, hx gram neg multi drug resistant pna, hx uti , s/p fungemia treatment - start antibiotics - polymyxin, bactrim, vancomycin, flagyl - recheck cultures, labs and f/u chest x-ray - d/w Dr. Walters - d/w RN - please see multiple orders 2. Trach-vent respiratory failure. 3. Dysphagia, G-tube. 4. Anemia. 5. Diabetes. 6. Hypertension. 7. Large tongue. 8. Anoxic brain injury. 9. Weakness. 10. Poorly responsive. 11. History of seizures. 12. History of colon adenocarcinoma. 13. Skin care protocol. 14. Allergy to crawfish. 15. Social history negative. 16. Family history noncontributory. 17. MAR was noted. 18. Case was discussed with RN. 19. Continue treatment per primary consultants. 20. Orders were ordered, entered, and noted. 21. Continue wound care protocol. 22. Continue blood sugar and blood pressure treatment per primary consultants for diabetes and hypertension. 23. vre colonization and isolation Subjective Constitutional: Reports: other - + trach and vent, poorly responsive; Denies: fever HEENT: Reports: congestion Respiratory: Denies: shortness of breath Cardiovascular: Reports: other - [employer] Gastrointestinal/Abdominal: Denies: nausea, vomiting, diarrhea Genitourinary: Reports: other - + nava Neurologic: Reports: other - poorly responsive Psychiatric: Reports: other - NA Skin: Reports: other - wounds covered Hematologic: Denies: bleeding Musculoskeletal: Reports: other - NA Allergies: Coded Allergies: Crayfish (Unverified Allergy, Unknown, 11/11/18) Uncoded Allergies: Crawfish (Allergy, Unknown, 11/09/18) Objective Vital Signs Last 24 Hour Vital Signs Date Time Temp Pulse Resp B/P (MAP) Pulse Ox O2 Delivery O2 Flow Rate FiO2 12/06/18 16:00 Mechanical Ventilator 12/06/18 16:00 97.2 75 22 110/65 (80) 95 12/06/18 16:00 30 12/06/18 15:12 90 110/65 12/06/18 14:59 85 23 30 9/18/19 13:29 80 23 99 Mechanical Ventilator 30 80 23 30 12/06/18 12:00 Mechanical Ventilator 12/06/18 12:00 96.6 68 25 112/64 (80) 100 12/06/18 12:00 30 12/06/18 11:10 80 28 30 12/06/18 09:07 79 22 30 12/06/18 08:58 80 120/68 12/06/18 08:00 30 12/06/18 08:00 Mechanical Ventilator 12/06/18 08:00 96.0 80 22 120/68 (85) 100 12/06/18 07:40 72 12/06/18 07:15 67 20 100 Mechanical Ventilator 30 71 17 30 12/06/18 05:59 67 102/63 12/06/18 05:08 67 20 30 12/06/18 04:00 30 12/06/18 03:57 Mechanical Ventilator 12/06/18 03:55 96.0 70 24 102/63 (76) 100 12/06/18 03:48 69 12/06/18 03:02 74 23 30 12/06/18 01:07 72 22 100 12/06/18 00:57 77 26 100 Mechanical Ventilator 30 77 26 30 12/06/18 00:00 Mechanical Ventilator 12/06/18 00:00 96.1 75 27 118/71 (87) 100 12/05/18 23:45 71 24 30 12/05/18 23:29 72 12/05/18 22:38 72 109/66 12/05/18 20:42 66 19 100 12/05/18 20:32 69 23 100 Mechanical Ventilator 30 68 20 30 12/05/18 20:00 30 12/05/18 20:00 Mechanical Ventilator 12/05/18 20:00 96.4 70 25 100/65 (77) 100 12/05/18 19:21 70 12/05/18 19:12 68 25 30 12/05/18 17:55 74 22 100 Mechanical Ventilator 30 12/05/18 16:36 72 26 30 Height (Feet): 5 Height (Inches): 8.00 Weight (Pounds): 244 General Appearance: no acute distress, other - on vent, no change in mental status and porly resposive HEENT: atraumatic, anicteric, no JVD, other - + enlarged tongue Respiratory/Chest: crackles/rales, rhonchi - bilaterally Cardiovascular: normal rate, regular rhythm, regularly irregular, no gallop/ murmur, no JVD Abdomen: normal bowel sounds, soft, non tender, no organomegaly, non distended Genitourinary: other Extremities: no cyanosis Skin: rash - rash stable Neurologic/Psychiatric: other - poorly responsive, on vent Lymphatic: no neck adenopathy Musculoskeletal: no effusion Objective 11/11/18 - chest x-ray - IMPRESSION: 1. Hypoventilatory lungs. Elevated right hemidiaphragm. Slightly improved vascular congestion. Similar bibasilar lung atelectasis and airspace disease. 2. Query right pleural effusion. 2-D echo - no vegetations mentioned, report noted sacral x-ray - no osteo mentioned, report noted 11/14/18 - Technique: One view of the chest Comparison: November 13, 2018 post PICC radiograph Findings: Bilateral interstitial and alveolar edema versus infiltrates appear slightly worse. There is increasing obscuration of left hemidiaphragm, may reflect increasing pleural fluid as well. The heart remains enlarged. Previously demonstrated left arm PICC has been removed. Stable right arm PICC. Impression: Slightly worsening bilateral interstitial and airspace infiltrates versus edema, over one day 11/16/18 - chest x-ray Procedure: XRAY Chest 1v Indication: Dyspnea Technique: One view of the chest Comparison: November 14, 2018 Findings: Bilateral interstitial edema persists. Tracheostomy, right arm PICC remain. The heart is enlarged. Impression: Bilateral interstitial edema, unchanged over [address] abdomen and pelvis: Impression: No definite acute process Diverticulosis. No evidence of diverticulitis Extensive edema of the subcutaneous fat. 2 cm focal fluid collection/edema seen within the incision Moderate amount retained dense stool. Correlate with any clinical history of constipation Hiatal hernia. Gastrostomy Left renal parapelvic cysts Apparent prior hysterectomy Chest x-ray - 11/23/18 - Technique: One view of the chest Comparison: 11/20/2018 Findings: Less optimal inspiration currently, with resultant crowding of the bronchovascular markings. Interstitial congestion is probably not significantly changed, allowing for differences in exposure technique. Tracheostomy remains. Right arm PICC remains. Impression: Unchanged, over 3 days, findings as above. Chest x-ray - 11/26/18 - IMPRESSION: 1. Rotated film. Increased hazy opacity at the left lung and left retrocardiac opacity. 2. Decreased left pleural effusion. 3. Elevated right hemidiaphragm with probable pleural effusion and consolidation, similar. Chest x-ray - 11/30/18 - Findings: Pulmonary edema again demonstrated. PICC line is stable as well as tracheostomy. Heart is enlarged. Basilar atelectasis suspected. The diaphragm is poorly seen. Underlying parenchymal infiltrate or other disease and/or pleural effusion may be present. IMPRESSION: Pulmonary edema Chest x-ray - 12/06/18 - IMPRESSION: Significant worsening of aeration with increased airspace opacities in the right , involving nearly the entire right lung. Although findings may be related to asymmetric pulmonary edema the possibility of pneumonia has to be considered. Clinical correlation and follow-up recommended. Likely layering right-sided pleural effusion. Tracheostomy tube and PICC line remain in place. Microbiology Date/Time Source Procedure Growth Status 11/24/18 15:10 Blood Blood Culture - Final NO GROWTH AFTER 5 DAYS Complete 11/26/18 09:00 Sputum Gram Stain - Final Complete 11/26/18 09:00 Sputum Culture - Final Acinetobacter Baumanii - Mdr Providencia Stuartii Complete 11/24/18 13:45 Indwelling Cath Urine Culture - Final NO GROWTH AFTER 48 HOURS Complete 11/13/18 21:55 Catheter Site Catheter Tip Culture - Final Escherichia Coli Complete Laboratory Tests Test 12/05/18 17:15 12/06/18 00:00 12/06/18 03:22 White Blood Count 11.3 K/UL (4.8-10.8) H 12.2 K/UL (4.8-10.8) H Red Blood Count 3.03 M/UL (4.20-5.40) L 2.84 M/UL (4.20-5.40) L Hemoglobin 8.1 G/DL (12.0-16.0) L 7.6 G/DL (12.0-16.0) L Hematocrit 24.2 % (37.0-47.0) L 22.3 % (37.0-47.0) L Mean Corpuscular Volume 80 FL (80-99) 78 FL (80-99) L Mean Corpuscular Hemoglobin 26.8 PG (27.0-31.0) L 26.9 PG (27.0-31.0) L Mean Corpuscular Hemoglobin Concent 33.6 G/DL (32.0-36.0) 34.3 G/DL (32.0-36.0) Red Cell Distribution Width 17.1 % (11.6-14.8) H 18.2 % (11.6-14.8) H Platelet Count 181 K/UL (150-450) 184 K/UL (150-450) Mean Platelet Volume 6.3 FL (6.5-10.1) L 6.3 FL (6.5-10.1) L Neutrophils (%) (Auto) 77.7 % (45.0-75.0) H % (45.0-75.0) Lymphocytes (%) (Auto) 6.2 % (20.0-45.0) L % (20.0-45.0) Monocytes (%) (Auto) 13.3 % (1.0-10.0) H % (1.0-10.0) Eosinophils (%) (Auto) 0.7 % (0.0-3.0) % (0.0-3.0) Basophils (%) (Auto) 2.0 % (0.0-2.0) % (0.0-2.0) Stool Occult Blood Negative (NEGATIVE) Sodium Level 129 MMOL/L (136-145) L Potassium Level 3.8 MMOL/L (3.5-5.1) Chloride Level 94 MMOL/L (98-107) L Carbon Dioxide Level 30 MMOL/L (21-32) Anion Gap 5 mmol/L (5-15) Blood Urea Nitrogen 26 mg/dL (7-18) H Creatinine 0.6 MG/DL (0.55-1.30) Estimat Glomerular Filtration Rate mL/min (>60) Glucose Level 102 MG/DL (74-106) Calcium Level 8.1 MG/DL (8.5-10.1) L Total Bilirubin 0.4 MG/DL (0.2-1.0) Aspartate Amino Transf (AST/SGOT) 47 U/L (15-37) H Alanine Aminotransferase (ALT/SGPT) 39 U/L (12-78) Alkaline Phosphatase 433 U/L (46-116) H Total Protein 5.1 G/DL (6.4-8.2) L Albumin 1.3 G/DL (3.4-5.0) L Globulin 3.8 g/dL Albumin/Globulin Ratio 0.3 (1.0-2.7) L Current Medications Medications (Trade) Dose Ordered Sig/Lupe Route PRN Reason Start Time Stop Time Status Last Admin Dose Admin Acetaminophen (Tylenol) 650 mg Q4H PRN GT Mild Pain/Temp > 100.5 11/09/18 05:00 12/09/18 04:59 11/24/18 21:50 Albuterol/ Ipratropium (Albuterol/ Ipratropium) 3 ml Q4H PRN HHN Shortness of Breath 12/05/18 19:00 12/10/18 18:59 Albuterol/ Ipratropium (Albuterol/ Ipratropium) 3 ml Q6HRT HHN 12/05/18 19:00 12/10/18 18:59 12/06/18 13:31 Amlodipine Besylate (Norvasc) 5 mg DAILY GT 12/05/18 09:00 12/09/18 08:59 12/06/18 08:58 Bisacodyl (Dulcolax) 10 mg DAILY PRN RECTAL Constipation 11/09/18 05:00 12/09/18 04:59 Chlorhexidine Gluconate (Corazon-Hex 2%) 1 applic DAILY@2000 TOPIC 11/12/18 20:00 12/12/18 19:59 12/05/18 20:27 Dextrose (Dextrose 50%) 25 ml Q30M PRN IV Hypoglycemia 11/09/18 04:45 12/09/18 04:44 Dextrose (Dextrose 50%) 50 ml Q30M PRN IV Hypoglycemia 11/09/18 04:45 12/09/18 04:44 11/09/18 09:09 Enoxaparin Sodium (Lovenox) 40 mg DAILY SUBQ 11/09/18 09:00 12/09/18 08:59 12/04/18 08:58 Famotidine (Pepcid) 20 mg EVERY 12 HOURS GT 11/09/18 21:00 12/09/18 08:59 12/06/18 08:58 Furosemide (Lasix) 40 mg EVERY 12 HOURS IV 12/04/18 21:00 01/03/19 20:59 12/06/18 08:58 Insulin Aspart (NovoLOG) Q6HR SUBQ 11/09/18 06:00 12/09/18 05:59 12/06/18 11:56 Insulin Detemir (Levemir) 4 units EVERY 12 HOURS SUBQ 11/16/18 21:00 12/09/18 08:59 12/06/18 09:03 Labetalol HCl (Normodyne) 200 mg Q8HR GT 11/09/18 06:00 12/09/18 05:59 12/06/18 15:12 Lactulose (Cephulac) 10 gm THREE TIMES A DAY GT 11/27/18 18:00 12/27/18 12:59 12/05/18 17:50 Levetiracetam (Keppra) 1,500 mg Q12HR GT 11/09/18 09:00 12/09/18 08:59 12/06/18 08:57 Magnesium Hydroxide (Mom) 30 ml DAILY PRN GT Constipation 11/09/18 05:00 12/09/18 04:59 Metronidazole 100 ml @ 100 mls/hr Q8HR IVPB 12/06/18 18:00 12/13/18 17:59 Ondansetron HCl (Zofran) 4 mg Q6H PRN GT Nausea & Vomiting 11/09/18 05:00 12/09/18 04:59 Phenobarbital (PHENobarbital) 60 mg BID GT 11/09/18 09:00 12/09/18 08:59 12/06/18 08:57 Phenytoin (Dilantin) 100 mg Q8HR GT 11/09/18 06:00 12/09/18 05:59 12/06/18 15:11 Polyethylene Glycol (Miralax) 17 gm DAILYPRN PRN GT Constipation 11/14/18 10:30 12/12/18 10:29 Polymyxin B Sulfate 158071 units/Dextrose 500 ml @ 500 mls/hr EVERY 12 HOURS IVPB 12/06/18 16:30 12/13/18 16:29 Sennosides (Senokot) 8.6 mg EVERY 12 HOURS GT 11/09/18 21:00 12/09/18 08:59 12/05/18 20:27 Trimethoprim/ Sulfamethoxazole (Bactrim-DS) 1 tab Q12HR ORAL 12/06/18 21:00 12/13/18 20:59 Vancomycin HCl (Vanco rx to dose) 1 ea DAILY PRN MISC Per rx protocol 12/06/18 15:15 01/05/19 15:14 Vancomycin HCl 1 gm/Dextrose 275 ml @ 183.708 mls/hr Q12HR@0800,2000 IVPB 12/07/18 08:00 12/12/18 07:59 Vancomycin HCl/ Dextrose 275 ml @ 137.5 mls/ hr ONCE ONCE IVPB 12/06/18 20:00 12/06/18 21:59 Dasha Crews MD Dec 06, 2018 17:00
[2018-12-06 18:05] LABS: APPEARANCE,URINE SLIGHTLY CLOUDY; BILIRUBIN, URINE NEGATIVE (NEGATIVE); COLOR,URINE PALE YELLOW; GLUCOSE, URINE (UA) NEGATIVE (NEGATIVE); KETONES,URINE NEGATIVE (NEGATIVE); LEUKOCYTE ESTERASE ,URINE 1+ (NEGATIVE); NITRITE,URINE POSITIVE (NEGATIVE); PH,URINE 9 (4.5-8.0); PROTEIN,URINE 2+ (NEGATIVE); UROBILINOGEN,URINE NORMAL MG/DL (0.0-1.0)
[2018-12-06] MEDS: POLYMYXIN B SULFATE IVPB SCH (18:36)
[2018-12-06] MEDS: SODIUM CHLORIDE IVPB SCH (18:36)
--- NOTE | 2018-12-06 19:00 | NUR ---
RESPIRATORY NOTE:Received Patient on Vent settings ACVC 14, VT 375, Fio2 30%, PEEP +5. Patient currently trached with a Shiley 8 tracheostomy tube, secured by trache ties. Patient obtundent. Breath sounds are bilateral rhonchi . Suctioned small amount of mccauley secretions Q2 and PRN. Vent plugged into red outlet. Alarms are on and audible. Will continue to monitor pt
--- NOTE | 2018-12-06 19:15 | NUR ---
HAND-OFF: Report given to Teresa Mattson RN.
--- NOTE | 2018-12-06 19:16 | NUR ---
NURSE NOTES: Received patient from CHARLEE Ortiz. Will continue plan of care.
[2018-12-06 20:00] VITALS: BP 90/42
[2018-12-06] MEDS ORDERED: Vancomycin 1.5gm Premix IVPB ONE (20:00)
[2018-12-06] MEDS ORDERED: Vancomycin 1.5gm/NS Premix q24h IVPB ONE (20:00)
[2018-12-06] MEDS: Dyna-Hex 2% Top Sol 2oz TOPIC SCH (20:21)
[2018-12-06] MEDS: Bactrim-DS 1 tab ORAL SCH (20:22)
[2018-12-06] MEDS: metroNIDAZOLE 500mg tab ORAL SCH (21:41)
[2018-12-07] VITALS: BP 103/60
[2018-12-07] MEDS: Albuterol/Ipratropium 3ml neb HHN SCH ×4 (01:00→19:17)
[2018-12-07 04:00] VITALS: BP 117/63
[2018-12-07 05:01] LABS: BASOPHILS % (AUTO) 1.5 % (0.0-2.0); EOSINOPHILS % (AUTO) 0.9 % (0.0-3.0); HEMATOCRIT 25.2 % (37.0-47.0); HEMOGLOBIN 8.6 G/DL (12.0-16.0); LYMPHOCYTES % (AUTO) 6.5 % (20.0-45.0); MEAN CORPUSCULAR VOLUME 80 FL (80-99); MONOCYTES % (AUTO) 12.8 % (1.0-10.0); NEUTROPHILS % (AUTO) 78.4 % (45.0-75.0); PLATELET COUNT 265 K/UL (150-450); RED BLOOD COUNT 3.16 M/UL (4.20-5.40); RED CELL DISTRIBUTION WIDTH 17.4 % (11.6-14.8); WHITE BLOOD COUNT 13.3 K/UL (4.8-10.8)
[2018-12-07] MEDS: Magic Mouth Wash 60ml (Benadryl/Mylanta/Visc Lido) ORAL SCH ×3 (05:31→21:02)
[2018-12-07] MEDS: Labetalol 200mg tab GT SCH ×3 (05:32→21:03)
[2018-12-07] MEDS: Phenytoin Susp 100mg/4ml GT SCH ×3 (05:32→21:02)
[2018-12-07] MEDS: metroNIDAZOLE 500mg tab ORAL SCH ×3 (05:32→21:03)
[2018-12-07] MEDS: NovoLOG Insulin Flexpen SUBQ SCH ×3 (05:32→17:05)
[2018-12-07 06:14] LABS: ALANINE AMINOTRANSFERASE 40 U/L (12-78); ALBUMIN 1.3 G/DL (3.4-5.0); ALBUMIN/GLOBULIN RATIO 0.3 (1.0-2.7); ALKALINE PHOSPHATASE 489 U/L (46-116); ANION GAP 5 mmol/L (5-15); ASPARTATE AMINO TRANSFERASE 39 U/L (15-37); BILIRUBIN,TOTAL 0.4 MG/DL (0.2-1.0); BLOOD UREA NITROGEN 28 mg/dL (7-18); CARBON DIOXIDE 31 MMOL/L (21-32); CHLORIDE 96 MMOL/L (98-107); CREATININE 0.7 MG/DL (0.55-1.30); POTASSIUM 4.9 MMOL/L (3.5-5.1); SODIUM 131 MMOL/L (136-145)
--- NOTE | 2018-12-07 07:08 | NUR ---
HAND-OFF: Report given to CHARLEE Gunter.
--- NOTE | 2018-12-07 07:21 | NUR ---
NURSE NOTES: Received report from CHARLEE Navarro. Patient is resting in bed, in stable condition. No s/sx of SOB, breathing is even and unlabored, vent settings are as ordered. Observed no presence of pain or discomfort at this time. Bed is in lowest position, brakes engaged. Call light is kept within easy reach. Will continue to monitor patient.
[2018-12-07] MEDS: Vancomycin 1 GM in NS 275 ML IVPB SCH ×2 (07:37→20:06)
--- NOTE | 2018-12-07 07:50 | NUR ---
RESPIRATORY NOTE: Patient received mechanically ventilated on PB 840 with current ordered vent settings. Patient has trach size 8.0 Shiley cuffed that is secured with trach tie and guard. Vent alarms are functional and audible. There is an ambu bag available a the bedside and the vent is connected to a red outlet. Patient appears comfortable at this time. Will continue to monitor.
[2018-12-07 07:57] VITALS: BP 105/57
[2018-12-07] MEDS ORDERED: Vancomycin 1gm/D5W 275ml IVPB SCH ×2 (08:00)
[2018-12-07] MEDS: levETIRAcetam 500mg/5ml Liquid GT SCH ×2 (08:12→20:06)
[2018-12-07] MEDS: Lactulose 10gm/15ml UDC GT SCH ×3 (08:12→17:05)
[2018-12-07] MEDS: PHENobarbital Elixir 30mg/7.5ml GT SCH ×2 (08:13→17:05)
[2018-12-07] MEDS: Sennosides 8.6mg tab GT SCH ×2 (08:13→20:07)
[2018-12-07] MEDS: Bactrim-DS 1 tab ORAL SCH ×2 (08:14→20:07)
[2018-12-07] MEDS: Levemir Flexpen SUBQ SCH ×2 (08:40→20:08)
[2018-12-07] MEDS: Enoxaparin 40mg Inj SUBQ SCH (08:41)
--- NOTE | 2018-12-07 09:23 | General Progress Note ---
Assessment/Plan Problem List: (1) Gram-negative pneumonia ICD Codes: J15.6 - Pneumonia due to other Gram-negative bacteria SNOMED: 333891668 (2) MRSA (methicillin resistant staphylococcus aureus) pneumonia ICD Codes: J15.212 - Pneumonia due to Methicillin resistant Staphylococcus aureus SNOMED: 484854220521841 (3) Fever ICD Codes: R50.9 - Fever, unspecified SNOMED: 326371559 (4) UTI (urinary tract infection) ICD Codes: N39.0 - Urinary tract infection, site not specified SNOMED: 79906452 (5) Tracheostomy dependence ICD Codes: Z93.0 - Tracheostomy status SNOMED: 183917689 (6) Ventilator dependence ICD Codes: Z99.11 - Dependence on respirator [ventilator] status SNOMED: 039018833 (7) Protein calorie malnutrition ICD Codes: E46 - Unspecified protein-calorie malnutrition SNOMED: 177696432 (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 SNOMED: 20763609 (9) Drug rash ICD Codes: L27.0 - Generalized skin eruption due to drugs and medicaments taken internally SNOMED: 58107507 (10) Line sepsis ICD Codes: T85.79XA - Infection and inflammatory reaction due to other internal prosthetic devices, implants and grafts, initial encounter; A41.9 - Sepsis, unspecified organism SNOMED: 88412050, 133404290 (11) Bacteremia ICD Codes: R78.81 - Bacteremia SNOMED: 7799292 (12) Hyponatremia ICD Codes: E87.1 - Hypo-osmolality and hyponatremia SNOMED: 54766428 (13) Sepsis ICD Codes: A41.9 - Sepsis, unspecified organism SNOMED: 47414768 (14) Seizure disorder ICD Codes: G40.909 - Epilepsy, unspecified, not intractable, without status epilepticus SNOMED: 532445369 (15) Diabetes ICD Codes: E11.9 - Type 2 diabetes mellitus without complications SNOMED: 72812716 (16) Colon adenocarcinoma ICD Codes: C18.9 - Malignant neoplasm of colon, unspecified SNOMED: 750261060 (17) Anoxic brain damage ICD Codes: G93.1 - Anoxic brain damage, not elsewhere classified SNOMED: 564360877 (18) Decubitus skin ulcer ICD Codes: L89.90 - Pressure ulcer of unspecified site, unspecified stage SNOMED: 303116301 Status: deteriorating - new pnemonia Assessment/Plan: 78-year-old female who is trach dependent who was brought in by [facility] for sepsis and found to have UTI and bacteremia. prolonged hospital course, multiple courses of antibiotics now with new HCAP. #new HCAP, aspiration pna risk, chest x-ray worse, leukocytosis, sepsis, hx wounds and surgery management, hx fevers, hx line infection, hx gram neg multi drug resistant pna, hx uti, s/p fungemia treatment - start antibiotics - polymyxin, bactrim, vancomycin, flagyl per ID - recheck cultures, labs and f/u chest x-ray #hyponatremia, hypotonic. Intravascularly depleted vs SIADH. Improving. Continue lasix 40mg BID. Nephrology consult Dr. Sommers # Transaminitis - worsening, meds vs passive congestion - trend lft's - GI consult, appreciate recs - ab us: reviewed - hep panel negative #Elevated troponin secondary to sepsis versus ACS Cardiology consult, appreciate recs Medications per cardiology #Microcytic anemia- mixed anemia of chronic inflammation and iron deficiency. Start ferrous sulfate TID , transfused 1 uprbc 11/27. and another unit prbc today 12/05. #Hypertension- improved Continue current medications, hydralazine as needed hypertension. Amlodipine dose reduced due to borderline BP #Vent dependent Pulmonary consult, appreciate recs Vent management per pulmonary #Hypokalemia, hypophosphatemia, hypomagnesemia Replace, continue to monitor # Chronic tongue wound Supportive care On examination the patient has a sharp lower incisor present that is likely the culprit for the tongue laceration when she was intubated in the prior hospitalization at [facility] OMFS consultation Dr. Benavides completed ( no note left ) and I spoke with him over the phone after the visit. He does not recommend any surgery. ONLY bite block MOLT if available to decompress the tongue and get the remainder teeth out of the tongue way. Keep moisture in the lips and tongue. ENT consult difficult to obtain- pending # History of mood disorder Seen by psychiatry and on Depakote. Level was checked # Seizure history - Discussed with Dr. Eric who knew the patient from [facility] and confirmed that she did have seizure activity and was on multiple AED regimen. - Will continue Depakote ( 28 level ) and (Phenytoin 4.3 ) - no active seizure activity at this time. Keep current dose. - Both Dr. Eric and Mariana not available to come to [facility] for consult and not acute need at this time. #Diabetes Mellitus, controlled - glucose noted in the 90-110's - Decreased Levemir to 4 units q 12 hours # Disposition - SNF when cleared by ID. Full code I discussed goals of care and current condition with daughter at bedside again. She wants mom to be transferred to [facility]. I spent 15 minutes at bedside discussing goals of care with daughter. prognosis guarded timing of this note may not reflect time of encounter. I spent 40 minutes on this encounter. Great than 50 percent spent of care planning. Subjective Date patient seen: Dec 07, 2018 ROS Limited/Unobtainable: Yes Allergies: Coded Allergies: Crayfish (Unverified Allergy, Unknown, 11/11/18) Uncoded Allergies: Crawfish (Allergy, Unknown, 11/09/18) Subjective obtunded on vent, afebrile however developed new HCAP Objective Last 24 Hour Vital Signs Date Time Temp Pulse Resp B/P (MAP) Pulse Ox O2 Delivery O2 Flow Rate FiO2 12/07/18 08:33 93 27 30 12/07/18 08:14 89 105/57 12/07/18 07:57 98.7 89 20 105/57 (73) 100 12/07/18 07:47 90 25 30 12/07/18 05:32 100 129/63 12/07/18 05:30 97 20 30 12/07/18 04:00 Mechanical Ventilator 12/07/18 04:00 99.4 98 26 117/63 (81) 100 12/07/18 04:00 30 12/07/18 03:23 101 12/07/18 03:10 96 20 30 12/07/18 01:11 91 20 30 12/07/18 00:00 98.4 95 22 103/60 (74) 99 12/07/18 00:00 Mechanical Ventilator 12/06/18 23:28 99 12/06/18 22:41 95 24 30 12/06/18 21:41 104 121/63 12/06/18 21:01 82 19 30 12/06/18 20:00 96 12/06/18 20:00 98.7 102 24 90/42 (58) 100 12/06/18 20:00 Mechanical Ventilator 12/06/18 20:00 30 12/06/18 19:20 84 22 30 12/06/18 17:17 81 22 30 12/06/18 16:00 Mechanical Ventilator 12/06/18 16:00 97.2 75 22 110/65 (80) 95 12/06/18 16:00 86 12/06/18 16:00 30 12/06/18 15:12 90 110/65 12/06/18 14:59 85 23 30 12/06/18 13:29 80 23 99 Mechanical Ventilator 30 80 23 30 12/06/18 12:00 Mechanical Ventilator 12/06/18 12:00 96.6 68 25 112/64 (80) 100 12/06/18 12:00 30 12/06/18 11:41 81 12/06/18 11:10 80 28 30 Intake and Output 12/06/18 12/07/18 19:00 07:00 Intake Total 510 ml 864.7 ml Output Total 1200 ml 750 ml Balance -690 ml 114.7 ml IV Total 89.7 ml Tube Feeding 260 ml 715 ml Blood Product 250 ml Other 60 ml Output Urine Total 1200 ml 750 ml Laboratory Tests 12/06/18 17:45: Urine Color Pale yellow, Urine Appearance Slightly cloudy, Urine pH 9, Urine Specific [place] 1.015, Urine Protein 2+H, Urine Glucose (UA) Negative, Urine Ketones Negative, Urine Blood 3+H, Urine Nitrite PositiveH, Urine Bilirubin Negative, Urine Urobilinogen Normal, Urine Leukocyte Esterase 1+H, Urine RBC 5- 10H, Urine WBC 5-10H, Urine Squamous Epithelial Cells Few, Urine Amorphous Sediment ModerateH, Urine Bacteria ModerateH 12/07/18 04:00: White Blood Count 13.3H, Red Blood Count 3.16L, Hemoglobin 8.6L, Hematocrit 25.2L, Mean Corpuscular Volume 80, Mean Corpuscular Hemoglobin 27.4, Mean Corpuscular Hemoglobin Concent 34.3, Red Cell Distribution Width 17.4H, Platelet Count 265, Mean Platelet Volume 6.4L, Neutrophils (%) (Auto) 78.4H, Lymphocytes (%) (Auto) 6.5L, Monocytes (%) (Auto) 12.8H, Eosinophils (%) (Auto) 0.9, Basophils (%) (Auto) 1.5, Sodium Level 131L, Potassium Level 4.9, Chloride Level 96L, Carbon Dioxide Level 31, Anion Gap 5, Blood Urea Nitrogen 28H, Creatinine 0.7, Estimat Glomerular Filtration Rate , Glucose Level 103, Calcium Level 7.0L, Total Bilirubin 0.4, Aspartate Amino Transf (AST/SGOT) 39H, Alanine Aminotransferase (ALT/SGPT) 40, Alkaline Phosphatase 489H, Total Protein 5.3L, Albumin 1.3L, Globulin 4.0, Albumin/Globulin Ratio 0.3L Height (Feet): 5 Height (Inches): 8.00 Weight (Pounds): 244 Objective General Appearance: no apparent distress, other - unresponsive on vent EENT: PERRL/EOMI, other - enlarged tongue protruding, lower lip severely swollen Neck: supple Cardiovascular: normal rate, regular rhythm Respiratory/Chest: lungs clear Abdomen: soft Neurologic: unresponsive Skin: Morbilliform rash to bilateral upper extremities and thighs Neftaly Walters M.D. Dec 07, 2018 09:23
[2018-12-07] MEDS: POLYMYXIN B SULFATE IVPB SCH ×2 (09:40→20:05)
[2018-12-07] MEDS: SODIUM CHLORIDE IVPB SCH ×2 (09:40→20:05)
--- NOTE | 2018-12-07 09:55 | NUR ---
RD ASSESSMENT & RECOMMENDATIONS SEE CARE ACTIVITY FOR COMPLETE ASSESSMENT DAILY ESTIMATED NEEDS: Needs based on Critical care, sepsis, wound 60kg adj 22-30 kcals/kg 4650-2404 total kcals 1.25-2 g protein/kg 75-120 g total protein Fluid per MD NUTRITION DIAGNOSIS: * Swallowing difficulty r/t resp status as evidenced by pt is vent dep via trach and PEG dep. * Increased kcal and pro needs r/t wound healing and sepsis as evidenced by pt w/ sacral, R heel wounds and wound within close proximity to trach stoma. CURRENT TF: Glucerna 1.2 @ 65ml/hr x18 hrs + Prosource x1 ENTERAL NUTRITION RECOMMENDATIONS: Glucerna 1.2 @ 65ml/hr x18 hrs + Prosource x1 daily to provide 1170ml, 1404 kcal, 70g pro + 11g pro, 942 free H2O - Maintain current TF at goal as tolerated - TF TO BE HELD FOR ONE HR BEFORE AND AFTER DILANTIN MEDS - FLUSH PER MD, HOB OVER 30 DEGREES With continued hyponatremia, rec TF change to Glucerna 1.5 for less free water. -> Rec Glucerna 1.5 @53ml/hr x18hrs to provide 954ml, 1431 kcal, 79g pro, 724ml free water to meet 100% est needs -> TF to provide 218ml less free water than Glucerna 1.2. ADDITIONAL RECOMMENDATIONS: 1) CALIBRATED BED SCALE W/ ADDED P200 MATTRESS + PUMP 2) TF TO RUN A MAX OF 18 HRS/DAY W/ DILANTIN TID PER PHARMACY 3) Monitor Na level closely, need for TF change/less free fluids 4) Monitor TF tolerance- w/ cont residuals, rec prokinetics 5) WOUND CARE: ADD CHAYITO BID + VIT C 250MG BID 6) Monitor lytes, replete as needed
--- NOTE | 2018-12-07 10:45 | NUR ---
NURSE NOTES: Dr. Walters at nurse station, made aware of patient's sodium level of 131. Dr. Walters acknowledged. No new orders given at this time. Will continue to monitor patient.
[2018-12-07 12:00] VITALS: BP 119/66
--- NOTE | 2018-12-07 12:20 | General Progress Note ---
Assessment/Plan Status: stable Assessment/Plan: (1) Abnormal LFTs ICD Codes: R94.5 - Abnormal results of liver function studies SNOMED: 135377771 (2) Decubitus skin ulcer ICD Codes: L89.90 - Pressure ulcer of unspecified site, unspecified stage SNOMED: 512476838 (3) Protein calorie malnutrition ICD Codes: E46 - Unspecified protein-calorie malnutrition SNOMED: 510512309 (4) Colon adenocarcinoma ICD Codes: C18.9 - Malignant neoplasm of colon, unspecified SNOMED: 118481360 (5) Sepsis ICD Codes: A41.9 - Sepsis, unspecified organism SNOMED: 58468676 (6) Tracheostomy dependence ICD Codes: Z93.0 - Tracheostomy status SNOMED: 928108251 (7) 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 Humphries. Assessment/Plan Assessment - Iron deficiency anemia - abnormal LFT - ? meds, passive congestion - dysphagia, s/p GT - Resp, failure, s/p Trach - hepatitis panel negative Recommendations - Continue TF - Monitor LFT - follow CBC - Conservative approach given poor health- -neg stool ob Subjective ROS Limited/Unobtainable: No Allergies: Coded Allergies: Crayfish (Unverified Allergy, Unknown, 11/11/18) Uncoded Allergies: Crawfish (Allergy, Unknown, 11/09/18) Subjective fever last night had BM Objective Last 24 Hour Vital Signs Date Time Temp Pulse Resp B/P (MAP) Pulse Ox O2 Delivery O2 Flow Rate FiO2 12/07/18 12:00 30 12/07/18 12:00 98.2 95 20 119/66 (83) 100 12/07/18 12:00 Mechanical Ventilator 12/07/18 11:19 96 25 30 12/07/18 08:33 93 27 30 12/07/18 08:14 89 105/57 12/07/18 08:00 30 12/07/18 08:00 Mechanical Ventilator 12/07/18 08:00 90 12/07/18 07:57 98.7 89 20 105/57 (73) 100 12/07/18 07:47 90 25 30 12/07/18 05:32 100 129/63 12/07/18 05:30 97 20 30 12/07/18 04:00 Mechanical Ventilator 12/07/18 04:00 99.4 98 26 117/63 (81) 100 12/07/18 04:00 30 12/07/18 03:23 101 12/07/18 03:10 96 20 30 12/07/18 01:11 91 20 30 12/07/18 00:00 98.4 95 22 103/60 (74) 99 12/07/18 00:00 Mechanical Ventilator 12/06/18 23:28 99 12/06/18 22:41 95 24 30 12/06/18 21:41 104 121/63 12/06/18 21:01 82 19 30 12/06/18 20:00 96 12/06/18 20:00 98.7 102 24 90/42 (58) 100 12/06/18 20:00 Mechanical Ventilator 12/06/18 20:00 30 12/06/18 19:20 84 22 30 12/06/18 17:17 81 22 30 12/06/18 16:00 Mechanical Ventilator 12/06/18 16:00 97.2 75 22 110/65 (80) 95 12/06/18 16:00 86 12/06/18 16:00 30 12/06/18 15:12 90 110/65 12/06/18 14:59 85 23 30 12/06/18 13:29 80 23 99 Mechanical Ventilator 30 80 23 30 Intake and Output 12/06/18 12/07/18 19:00 07:00 Intake Total 510 ml 864.7 ml Output Total 1200 ml 750 ml Balance -690 ml 114.7 ml IV Total 89.7 ml Tube Feeding 260 ml 715 ml Blood Product 250 ml Other 60 ml Output Urine Total 1200 ml 750 ml Laboratory Tests 12/06/18 17:45: Urine Color Pale yellow, Urine Appearance Slightly cloudy, Urine pH 9, Urine Specific [place] 1.015, Urine Protein 2+H, Urine Glucose (UA) Negative, Urine Ketones Negative, Urine Blood 3+H, Urine Nitrite PositiveH, Urine Bilirubin Negative, Urine Urobilinogen Normal, Urine Leukocyte Esterase 1+H, Urine RBC 5- 10H, Urine WBC 5-10H, Urine Squamous Epithelial Cells Few, Urine Amorphous Sediment ModerateH, Urine Bacteria ModerateH 12/07/18 04:00: White Blood Count 13.3H, Red Blood Count 3.16L, Hemoglobin 8.6L, Hematocrit 25.2L, Mean Corpuscular Volume 80, Mean Corpuscular Hemoglobin 27.4, Mean Corpuscular Hemoglobin Concent 34.3, Red Cell Distribution Width 17.4H, Platelet Count 265, Mean Platelet Volume 6.4L, Neutrophils (%) (Auto) 78.4H, Lymphocytes (%) (Auto) 6.5L, Monocytes (%) (Auto) 12.8H, Eosinophils (%) (Auto) 0.9, Basophils (%) (Auto) 1.5, Sodium Level 131L, Potassium Level 4.9, Chloride Level 96L, Carbon Dioxide Level 31, Anion Gap 5, Blood Urea Nitrogen 28H, Creatinine 0.7, Estimat Glomerular Filtration Rate , Glucose Level 103, Calcium Level 7.0L, Total Bilirubin 0.4, Aspartate Amino Transf (AST/SGOT) 39H, Alanine Aminotransferase (ALT/SGPT) 40, Alkaline Phosphatase 489H, Total Protein 5.3L, Albumin 1.3L, Globulin 4.0, Albumin/Globulin Ratio 0.3L Height (Feet): 5 Height (Inches): 8.00 Weight (Pounds): 244 General Appearance: no apparent distress EENT: normal ENT inspection Neck: supple Cardiovascular: normal rate Respiratory/Chest: decreased breath sounds Abdomen: normal bowel sounds, non tender, soft Extremities: non-tender Casper Humphries MD Dec 07, 2018 12:20
[2018-12-07 15:51] VITALS: BP 116/67
--- NOTE | 2018-12-07 16:48 | Nephrology Progress Note ---
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- hypo-osmolar -now improving with diuresis - continue lasix 40 IV BID - change to NS flushes for meds - Abx in NS - follow BMP #H/o HTN- controlled - decreased amlodipine to 5 mg daily - labetalol 200mg TID #Hypokalemia- repleted - stable today Subjective Subjective sodium gradually improving with diuresis 131 this morning BP stable afebrile Objective Objective Last 24 Hour Vital Signs Date Time Temp Pulse Resp B/P (MAP) Pulse Ox O2 Delivery O2 Flow Rate FiO2 12/07/18 16:00 Mechanical Ventilator 12/07/18 16:00 30 12/07/18 15:51 98.4 89 20 116/67 (83) 100 12/07/18 13:33 95 24 100 12/07/18 13:30 90 119/66 12/07/18 13:23 90 25 Mechanical Ventilator 30 30 12/07/18 12:00 30 12/07/18 12:00 98.2 95 20 119/66 (83) 100 12/07/18 12:00 Mechanical Ventilator 12/07/18 11:28 93 12/07/18 11:19 96 25 30 12/07/18 08:33 93 27 30 12/07/18 08:14 89 105/57 12/07/18 08:00 30 12/07/18 08:00 Mechanical Ventilator 12/07/18 08:00 90 12/07/18 07:57 98.7 89 20 105/57 (73) 100 12/07/18 07:57 93 25 100 12/07/18 07:47 90 25 Mechanical Ventilator 30 30 12/07/18 05:32 100 129/63 12/07/18 05:30 97 20 30 12/07/18 04:00 Mechanical Ventilator 12/07/18 04:00 99.4 98 26 117/63 (81) 100 12/07/18 04:00 30 12/07/18 03:23 101 12/07/18 03:10 96 20 30 12/07/18 01:11 91 20 30 12/07/18 00:00 98.4 95 22 103/60 (74) 99 12/07/18 00:00 Mechanical Ventilator 12/06/18 23:28 99 12/06/18 22:41 95 24 30 12/06/18 21:41 104 121/63 12/06/18 21:01 82 19 30 12/06/18 20:00 96 12/06/18 20:00 98.7 102 24 90/42 (58) 100 12/06/18 20:00 Mechanical Ventilator 12/06/18 20:00 30 12/06/18 19:20 84 22 30 12/06/18 17:17 81 22 30 Intake and Output 12/06/18 12/07/18 19:00 07:00 Intake Total 510 ml 864.7 ml Output Total 1200 ml 750 ml Balance -690 ml 114.7 ml IV Total 89.7 ml Tube Feeding 260 ml 715 ml Blood Product 250 ml Other 60 ml Output Urine Total 1200 ml 750 ml Laboratory Tests 12/06/18 17:45: Urine Color Pale yellow, Urine Appearance Slightly cloudy, Urine pH 9, Urine Specific [place] 1.015, Urine Protein 2+H, Urine Glucose (UA) Negative, Urine Ketones Negative, Urine Blood 3+H, Urine Nitrite PositiveH, Urine Bilirubin Negative, Urine Urobilinogen Normal, Urine Leukocyte Esterase 1+H, Urine RBC 5- 10H, Urine WBC 5-10H, Urine Squamous Epithelial Cells Few, Urine Amorphous Sediment ModerateH, Urine Bacteria ModerateH 12/07/18 04:00: White Blood Count 13.3H, Red Blood Count 3.16L, Hemoglobin 8.6L, Hematocrit 25.2L, Mean Corpuscular Volume 80, Mean Corpuscular Hemoglobin 27.4, Mean Corpuscular Hemoglobin Concent 34.3, Red Cell Distribution Width 17.4H, Platelet Count 265, Mean Platelet Volume 6.4L, Neutrophils (%) (Auto) 78.4H, Lymphocytes (%) (Auto) 6.5L, Monocytes (%) (Auto) 12.8H, Eosinophils (%) (Auto) 0.9, Basophils (%) (Auto) 1.5, Sodium Level 131L, Potassium Level 4.9, Chloride Level 96L, Carbon Dioxide Level 31, Anion Gap 5, Blood Urea Nitrogen 28H, Creatinine 0.7, Estimat Glomerular Filtration Rate , Glucose Level 103, Calcium Level 7.0L, Total Bilirubin 0.4, Aspartate Amino Transf (AST/SGOT) 39H, Alanine Aminotransferase (ALT/SGPT) 40, Alkaline Phosphatase 489H, Total Protein 5.3L, Albumin 1.3L, Globulin 4.0, Albumin/Globulin Ratio 0.3L Height (Feet): 5 Height (Inches): 8.00 Weight (Pounds): 244 Objective General Appearance: no apparent distress, lethargic, + trach Neck: non-tender, normal alignment, supple, normal inspection, no JVD Rhythm: NSR Cardiovascular: normal peripheral pulses, regular rhythm, tachycardia Respiratory/Chest: biltateral faint wheezes Abdomen: normal bowel sounds, non tender, soft, + PEG Diana Sommers M.D. Dec 07, 2018 16:48
--- NOTE | 2018-12-07 17:09 | Pulmonology Progress Note ---
Assessment/Plan Problems: (1) Ventilator dependence (2) Tracheostomy dependence (3) UTI (urinary tract infection) (4) Fever (5) Anoxic brain damage (6) Tongue abnormality (7) Seizure disorder (8) Colon adenocarcinoma (9) HTN (hypertension) (10) Sepsis (11) Diabetes (12) Abnormal LFTs (13) Protein calorie malnutrition (14) Gastrostomy in place (15) shelter resident (16) Decubitus skin ulcer Assessment/Plan Continue ventilatory support/settings reviewed Titrate down FiO2 to keep SaO2 > 90% Optimize pulmonary hygiene/mobilize as tolerated RTC and PRN HHN's Abx per ID, F/U Cx's F/U cards recs Monitor volumes and renal function, diuresis as able DVT Px: LMWH held 2/2 anemia Transfuse PRBC Per record seen by OMFS and no note written, no intervention recommended, no ENT available to see FC, continue to discuss GOC --> consider family meeting Wound care Subjective Allergies: Coded Allergies: Crayfish (Unverified Allergy, Unknown, 11/11/18) Uncoded Allergies: Crawfish (Allergy, Unknown, 11/09/18) Subjective AFVSS stable on vent no sig secretions no distress HAP coverage resumed by ID given worsening CXR Objective Last 24 Hour Vital Signs Date Time Temp Pulse Resp B/P (MAP) Pulse Ox O2 Delivery O2 Flow Rate FiO2 12/07/18 16:00 Mechanical Ventilator 12/07/18 16:00 30 12/07/18 15:51 98.4 89 20 116/67 (83) 100 12/07/18 13:33 95 24 100 12/07/18 13:30 90 119/66 12/07/18 13:23 90 25 Mechanical Ventilator 30 30 12/07/18 12:00 30 12/07/18 12:00 98.2 95 20 119/66 (83) 100 12/07/18 12:00 Mechanical Ventilator 12/07/18 11:28 93 12/07/18 11:19 96 25 30 12/07/18 08:33 93 27 30 12/07/18 08:14 89 105/57 12/07/18 08:00 30 12/07/18 08:00 Mechanical Ventilator 12/07/18 08:00 90 12/07/18 07:57 98.7 89 20 105/57 (73) 100 12/07/18 07:57 93 25 100 12/07/18 07:47 90 25 Mechanical Ventilator 30 30 12/07/18 05:32 100 129/63 12/07/18 05:30 97 20 30 12/07/18 04:00 Mechanical Ventilator 12/07/18 04:00 99.4 98 26 117/63 (81) 100 12/07/18 04:00 30 12/07/18 03:23 101 12/07/18 03:10 96 20 30 12/07/18 01:11 91 20 30 12/07/18 00:00 98.4 95 22 103/60 (74) 99 12/07/18 00:00 Mechanical Ventilator 12/06/18 23:28 99 12/06/18 22:41 95 24 30 12/06/18 21:41 104 121/63 12/06/18 21:01 82 19 30 12/06/18 20:00 96 12/06/18 20:00 98.7 102 24 90/42 (58) 100 12/06/18 20:00 Mechanical Ventilator 12/06/18 20:00 30 12/06/18 19:20 84 22 30 12/06/18 17:17 81 22 30 Intake and Output 12/06/18 12/07/18 19:00 07:00 Intake Total 510 ml 864.7 ml Output Total 1200 ml 750 ml Balance -690 ml 114.7 ml IV Total 89.7 ml Tube Feeding 260 ml 715 ml Blood Product 250 ml Other 60 ml Output Urine Total 1200 ml 750 ml General Appearance: no acute distress, cachetic HEENT: status post trach, other - macroglossia Respiratory/Chest: rhonchi - R > L Cardiovascular: normal peripheral pulses, normal rate, regular rhythm Abdomen: normal bowel sounds, soft, non tender, no organomegaly, non distended , no mass, other - GT CDI Extremities: no cyanosis, no clubbing, other - 1+ edema x 4 Microbiology Date/Time Source Procedure Growth Status 12/06/18 17:45 Sputum Induced Gram Stain - Final Resulted 12/06/18 17:45 Sputum Induced Sputum Culture Pending Resulted 12/06/18 17:45 Indwelling Cath Urine Culture - Preliminary Gram Negative Bacillus 1 Resulted Laboratory Tests 12/06/18 17:45: Urine Color Pale yellow, Urine Appearance Slightly cloudy, Urine pH 9, Urine Specific [place] 1.015, Urine Protein 2+H, Urine Glucose (UA) Negative, Urine Ketones Negative, Urine Blood 3+H, Urine Nitrite PositiveH, Urine Bilirubin Negative, Urine Urobilinogen Normal, Urine Leukocyte Esterase 1+H, Urine RBC 5- 10H, Urine WBC 5-10H, Urine Squamous Epithelial Cells Few, Urine Amorphous Sediment ModerateH, Urine Bacteria ModerateH 12/07/18 04:00: White Blood Count 13.3H, Red Blood Count 3.16L, Hemoglobin 8.6L, Hematocrit 25.2L, Mean Corpuscular Volume 80, Mean Corpuscular Hemoglobin 27.4, Mean Corpuscular Hemoglobin Concent 34.3, Red Cell Distribution Width 17.4H, Platelet Count 265, Mean Platelet Volume 6.4L, Neutrophils (%) (Auto) 78.4H, Lymphocytes (%) (Auto) 6.5L, Monocytes (%) (Auto) 12.8H, Eosinophils (%) (Auto) 0.9, Basophils (%) (Auto) 1.5, Sodium Level 131L, Potassium Level 4.9, Chloride Level 96L, Carbon Dioxide Level 31, Anion Gap 5, Blood Urea Nitrogen 28H, Creatinine 0.7, Estimat Glomerular Filtration Rate , Glucose Level 103, Calcium Level 7.0L, Total Bilirubin 0.4, Aspartate Amino Transf (AST/SGOT) 39H, Alanine Aminotransferase (ALT/SGPT) 40, Alkaline Phosphatase 489H, Total Protein 5.3L, Albumin 1.3L, Globulin 4.0, Albumin/Globulin Ratio 0.3L Current Medications Medications (Trade) Dose Ordered Sig/Lupe Route PRN Reason Start Time Stop Time Status Last Admin Dose Admin Acetaminophen (Tylenol) 650 mg Q4H PRN GT Mild Pain/Temp > 100.5 11/09/18 05:00 12/09/18 04:59 11/24/18 21:50 Albuterol/ Ipratropium (Albuterol/ Ipratropium) 3 ml Q4H PRN HHN Shortness of Breath 12/05/18 19:00 12/10/18 18:59 Albuterol/ Ipratropium (Albuterol/ Ipratropium) 3 ml Q6HRT HHN 12/05/18 19:00 12/10/18 18:59 12/07/18 13:23 Amlodipine Besylate (Norvasc) 5 mg DAILY GT 12/05/18 09:00 12/09/18 08:59 12/06/18 08:58 Bisacodyl (Dulcolax) 10 mg DAILY PRN RECTAL Constipation 11/09/18 05:00 12/09/18 04:59 Chlorhexidine Gluconate (Corazon-Hex 2%) 1 applic DAILY@2000 TOPIC 11/12/18 20:00 12/12/18 19:59 12/06/18 20:21 Dextrose (Dextrose 50%) 25 ml Q30M PRN IV Hypoglycemia 11/09/18 04:45 12/09/18 04:44 Dextrose (Dextrose 50%) 50 ml Q30M PRN IV Hypoglycemia 11/09/18 04:45 12/09/18 04:44 11/09/18 09:09 Enoxaparin Sodium (Lovenox) 40 mg DAILY SUBQ 11/09/18 09:00 12/09/18 08:59 12/07/18 08:41 Famotidine (Pepcid) 20 mg EVERY 12 HOURS GT 11/09/18 21:00 12/09/18 08:59 12/07/18 08:13 Furosemide (Lasix) 40 mg EVERY 12 HOURS IV 12/04/18 21:00 01/03/19 20:59 12/07/18 08:14 Insulin Aspart (NovoLOG) Q6HR SUBQ 11/09/18 06:00 12/09/18 05:59 12/06/18 11:56 Insulin Detemir (Levemir) 4 units EVERY 12 HOURS SUBQ 11/16/18 21:00 12/09/18 08:59 12/07/18 08:40 Labetalol HCl (Normodyne) 200 mg Q8HR GT 11/09/18 06:00 12/09/18 05:59 12/07/18 13:30 Lactulose (Cephulac) 10 gm THREE TIMES A DAY GT 11/27/18 18:00 12/27/18 12:59 12/07/18 17:05 Levetiracetam (Keppra) 1,500 mg Q12HR GT 11/09/18 09:00 12/09/18 08:59 12/07/18 08:12 Magnesium Hydroxide (Mom) 30 ml DAILY PRN GT Constipation 11/09/18 05:00 12/09/18 04:59 Metronidazole (Flagyl) 500 mg EVERY 8 HOURS ORAL 12/06/18 22:00 12/13/18 21:59 12/07/18 13:30 Ondansetron HCl (Zofran) 4 mg Q6H PRN GT Nausea & Vomiting 11/09/18 05:00 12/09/18 04:59 Phenobarbital (PHENobarbital) 60 mg BID GT 11/09/18 09:00 12/09/18 08:59 12/07/18 17:05 Phenytoin (Dilantin) 100 mg Q8HR GT 11/09/18 06:00 12/09/18 05:59 12/07/18 13:30 Polyethylene Glycol (Miralax) 17 gm DAILYPRN PRN GT Constipation 11/14/18 10:30 12/12/18 10:29 Polymyxin B Sulfate 048899 units/Sodium Chloride 550 ml @ 550 mls/hr EVERY 12 HOURS IVPB 12/06/18 17:30 12/13/18 17:29 12/07/18 09:40 Sennosides (Senokot) 8.6 mg EVERY 12 HOURS GT 11/09/18 21:00 12/09/18 08:59 12/07/18 08:13 Trimethoprim/ Sulfamethoxazole (Bactrim-DS) 1 tab Q12HR ORAL 12/06/18 21:00 12/13/18 20:59 12/07/18 08:14 Vancomycin HCl (Vanco rx to dose) 1 ea DAILY PRN MISC Per rx protocol 12/06/18 15:15 01/05/19 15:14 Vancomycin HCl 1 gm/Sodium Chloride 275 ml @ 183.708 mls/hr Q12HR@0800,2000 IVPB 12/07/18 08:00 12/12/18 07:59 12/07/18 07:37 Balbir Dejesus MD Dec 07, 2018 17:09
--- NOTE | 2018-12-07 17:36 | Surgery Progress Note ---
Surgery Progress Note Subjective Additional Comments worsening leukocytosis cultures noted neck wounds being cared for sacral wound declining despite best efforts she has been receiving adequate nutritional supplementation and good wound care but inevitable decline unfortunately prognosis guarded Objective Last 24 Hour Vital Signs Date Time Temp Pulse Resp B/P (MAP) Pulse Ox O2 Delivery O2 Flow Rate FiO2 12/07/18 16:00 Mechanical Ventilator 12/07/18 16:00 30 12/07/18 15:51 98.4 89 20 116/67 (83) 100 12/07/18 13:33 95 24 100 12/07/18 13:30 90 119/66 12/07/18 13:23 90 25 Mechanical Ventilator 30 30 12/07/18 12:00 30 12/07/18 12:00 98.2 95 20 119/66 (83) 100 12/07/18 12:00 Mechanical Ventilator 12/07/18 11:28 93 12/07/18 11:19 96 25 30 12/07/18 08:33 93 27 30 12/07/18 08:14 89 105/57 12/07/18 08:00 30 12/07/18 08:00 Mechanical Ventilator 12/07/18 08:00 90 12/07/18 07:57 98.7 89 20 105/57 (73) 100 12/07/18 07:57 93 25 100 12/07/18 07:47 90 25 Mechanical Ventilator 30 30 12/07/18 05:32 100 129/63 12/07/18 05:30 97 20 30 12/07/18 04:00 Mechanical Ventilator 12/07/18 04:00 99.4 98 26 117/63 (81) 100 12/07/18 04:00 30 12/07/18 03:23 101 12/07/18 03:10 96 20 30 12/07/18 01:11 91 20 30 12/07/18 00:00 98.4 95 22 103/60 (74) 99 12/07/18 00:00 Mechanical Ventilator 12/06/18 23:28 99 12/06/18 22:41 95 24 30 12/06/18 21:41 104 121/63 12/06/18 21:01 82 19 30 12/06/18 20:00 96 12/06/18 20:00 98.7 102 24 90/42 (58) 100 12/06/18 20:00 Mechanical Ventilator 12/06/18 20:00 30 12/06/18 19:20 84 22 30 I&O Intake and Output 12/06/18 12/07/18 19:00 07:00 Intake Total 510 ml 864.7 ml Output Total 1200 ml 750 ml Balance -690 ml 114.7 ml IV Total 89.7 ml Tube Feeding 260 ml 715 ml Blood Product 250 ml Other 60 ml Output Urine Total 1200 ml 750 ml Dressing: saturated Wound: other Drains: other Cardiovascular: RSR Respiratory: decreased breath sounds Abdomen: soft, present bowel sounds, non-distended Extremities: no cyanosis, other Laboratory Tests Test 12/06/18 17:45 12/07/18 04:00 Urine Color Pale yellow Urine Appearance Slightly cloudy Urine pH 9 (4.5-8.0) Urine Specific [place] 1.015 (1.005-1.035) Urine Protein 2+ (NEGATIVE) H Urine Glucose (UA) Negative (NEGATIVE) Urine Ketones Negative (NEGATIVE) Urine Blood 3+ (NEGATIVE) H Urine Nitrite Positive (NEGATIVE) H Urine Bilirubin Negative (NEGATIVE) Urine Urobilinogen Normal MG/DL (0.0-1.0) Urine Leukocyte Esterase 1+ (NEGATIVE) H Urine RBC 5-10 /HPF (0 - 2) H Urine WBC 5-10 /HPF (0 - 2) H Urine Squamous Epithelial Cells Few /LPF (NONE/OCC) Urine Amorphous Sediment Moderate /LPF (NONE) H Urine Bacteria Moderate /HPF (NONE) H White Blood Count 13.3 K/UL (4.8-10.8) H Red Blood Count 3.16 M/UL (4.20-5.40) L Hemoglobin 8.6 G/DL (12.0-16.0) L Hematocrit 25.2 % (37.0-47.0) L Mean Corpuscular Volume 80 FL (80-99) Mean Corpuscular Hemoglobin 27.4 PG (27.0-31.0) Mean Corpuscular Hemoglobin Concent 34.3 G/DL (32.0-36.0) Red Cell Distribution Width 17.4 % (11.6-14.8) H Platelet Count 265 K/UL (150-450) Mean Platelet Volume 6.4 FL (6.5-10.1) L Neutrophils (%) (Auto) 78.4 % (45.0-75.0) H Lymphocytes (%) (Auto) 6.5 % (20.0-45.0) L Monocytes (%) (Auto) 12.8 % (1.0-10.0) H Eosinophils (%) (Auto) 0.9 % (0.0-3.0) Basophils (%) (Auto) 1.5 % (0.0-2.0) Sodium Level 131 MMOL/L (136-145) L Potassium Level 4.9 MMOL/L (3.5-5.1) Chloride Level 96 MMOL/L (98-107) L Carbon Dioxide Level 31 MMOL/L (21-32) Anion Gap 5 mmol/L (5-15) Blood Urea Nitrogen 28 mg/dL (7-18) H Creatinine 0.7 MG/DL (0.55-1.30) Estimat Glomerular Filtration Rate mL/min (>60) Glucose Level 103 MG/DL (74-106) Calcium Level 7.0 MG/DL (8.5-10.1) L Total Bilirubin 0.4 MG/DL (0.2-1.0) Aspartate Amino Transf (AST/SGOT) 39 U/L (15-37) H Alanine Aminotransferase (ALT/SGPT) 40 U/L (12-78) Alkaline Phosphatase 489 U/L (46-116) H Total Protein 5.3 G/DL (6.4-8.2) L Albumin 1.3 G/DL (3.4-5.0) L Globulin 4.0 g/dL Albumin/Globulin Ratio 0.3 (1.0-2.7) L Plan Problems: (1) Fever (2) Tongue abnormality Assessment & Plan: patients jaw clenched closed and tongue has been stuck for some time. tongue split from middle teeth and now in two. edema and unable to reduce keep tongue moist. apply lube jelly prn dryness. will monitor do not recommend surgical intervention for this current medical condition spoke with family. ENT. OMFS no intervention stable still overall (3) Tracheostomy dependence (4) Sepsis Assessment & Plan: gb no stones 6mm polyp no acute surgical intervention planned trend labs neck wounds being cared for sacral wound declining despite best efforts she has been receiving adequate nutritional supplementation and good wound care but inevitable decline unfortunately prognosis guarded DAILY ESTIMATED NEEDS: Needs based on Critical care, sepsis, wound 60kg adj 22-30 kcals/kg [id number] total kcals 1.25-2 g protein/kg 75-120 g total protein Fluid per MD, on lasix NUTRITION DIAGNOSIS: * Swallowing difficulty r/t respiratory status as evidenced by pt is vent dep via trach and PEG dep. * Increased kcal and pro needs r/t wound healing and sepsis as evidenced by pt w/ sacral and R heel wounds, febrile (Tmax 101.5). CURRENT TF: Jevity 1.2 @50 ml/hr x16 hrs ENTERAL NUTRITION RECOMMENDATIONS: Glucerna 1.2 @65ml/hr x18 hrs + Prosource x1 daily to provide 1170ml, 1404 kcal, 70g pro + 11g pro, 942 free H2O - REC TF CHANGE AND INCREASE TO BETTER MEET EST NEEDS - TF TO BE HELD FOR ONE HR BEFORE AND AFTER DILANTIN MEDS - START @20ML/HR, ADVANCE TOLERATED 15ML/HR Q4-6 HRS TO GOAL - FLUSH PER MD, HOB OVRE 30 DEGREES ADDITIONAL RECOMMENDATIONS: 1) CALIBRATED BED SCALE W/ ADDED P200 MATTRESS + PUMP 2) ON LASIX, MONITOR LYTES AND HYDRATION STATUS DAILY 3) TF TO RUN A MAX OF 18 HRS/DAY W/ DILANTIN TID PER PHARMACY 4) REC TF CHANGE TO CARB CONTROL FORMULA 5) WOUND CARE: ADD CHAYITO BID + VIT C 250MG DAILY (5) Fever Assessment & Plan: CT A/P with findings Impression: No definite acute process Diverticulosis. No evidence of diverticulitis Extensive edema of the subcutaneous fat. 2 cm focal fluid collection/edema seen within the incision Moderate amount retained dense stool. Correlate with any clinical history of constipation Hiatal hernia. Gastrostomy Left renal parapelvic cysts Apparent prior hysterectomy (6) Decubitus skin ulcer Assessment & Plan: Pt presented on admission with full thickness sacral pressure injury.Base of wound is 20% necrotic , 80% slough. borders are macerated . Mild odor noted. (L)8.4cm x (W) 6.5cm. Periwound skin tone is darker without erythema,induration or elevation in skin temp. Both heels are non -blanchable and both are fluctuant when palpated. neck wounds still declining because of trach dependance, edema, and location as well as patients contractures Tx.Plan: Clean wound with saline. Apply Therahoney. Aply Moisture Barrier paste periwound. Cover with Optifoam drsg. Change every 3 days and prn. Apply Cavilon Skin Barrier to both heels. Cover each heel with Optifoam drsg. Change every 7 days and prn. wash neck wounds daily, apply skin protectant, therahoney, gauze and foam dressing daily APM/DEIRDRE mattress overlay. Reposition at least every 2hours or as tolerated. Off-load heels with pillow. will follow with recs thank you Preet Hylton Dec 07, 2018 17:36
--- NOTE | 2018-12-07 19:21 | NUR ---
HAND-OFF: Report given to CHARLEE Harris.
--- NOTE | 2018-12-07 19:24 | NUR ---
NURSE NOTES: Received report from Jani RN, pt. in bed obtunded, opens eyes- non-verbal, housekeeping coordinator on, no signs or symptoms of acute cardiac or respiratory distress noted, bed in lowest position and call light within easy reach, bed locked in position and side rails up x's3, pt. appears to be resting comfortably in bed- comfort measures provided, pt. appears to be tolerating current vent settings well- AC 14, TV 375, Fio2 @30% and peep 5- no distress noted, Side rails padded for seizure precautions- no seizure activity noted upon assessment, Glucerna 1.2 running via G tube at 65cc/hr- no residual noted, pt. is clean and dry, KAITLYNN PICC intact and patent- TKO, Safety measures continued, will continue with plan of care.
[2018-12-07 20:00] VITALS: BP 118/65
[2018-12-07] MEDS: Dyna-Hex 2% Top Sol 2oz TOPIC SCH (20:06)
[2018-12-08] VITALS: BP 124/68
[2018-12-08] MEDS: Albuterol/Ipratropium 3ml neb HHN SCH ×4 (01:09→18:49)
[2018-12-08 04:00] VITALS: BP 137/67
[2018-12-08] MEDS: Magic Mouth Wash 60ml (Benadryl/Mylanta/Visc Lido) ORAL SCH ×3 (05:00→21:01)
[2018-12-08] MEDS: NovoLOG Insulin Flexpen SUBQ SCH ×5 (05:00→23:05)
[2018-12-08] MEDS: metroNIDAZOLE 500mg tab ORAL SCH (05:01)
[2018-12-08] MEDS: Labetalol 200mg tab GT SCH ×3 (05:01→21:01)
[2018-12-08] MEDS: Phenytoin Susp 100mg/4ml GT SCH ×3 (05:59→21:01)
--- NOTE | 2018-12-08 05:59 | Hematology/Onc Progress Note ---
Assessment/Plan Assessment/Plan # Anemia of chronic disease due to underlying chronic medical issues, multifactorial --> Anemia workup has been reviewed and cw acd --> No evidence of hemolysis is noted, peripheral smear has been reviewed --> Hgb goal >7. Transfuse prn. --> hgb trend 9-->8-->7.5-->9.3->8.6-->8.4-->8.7->7.6-->6.6-->7.6 --> Epogen or iron indication prn --> Medications have been reviewed --> low threshold for gi evaluation and occult -- # Leukocytosis with sepsis secondary to UTI, GPC Staph Epidermidis bacteremia, Line associated infection - patient arrived to the Hospital with a PICC --> as per ID consult recs --> Continue antibiotics per ID: Continue Zosyn and vancomycin, anti fungal added--> kaykay/vanc, diflucan-->flagyl, vanc, polymyxin--> omid/flagyl/polym/vanc --> imaging noted --> now improved # Thrombocytosis is likely due to underlying reactive process --> if doesn't improve send off jak2 --> plt count 641k-->402k-->344-->275k-->280k-->250k-->255k # Elevated tumor marker, cea --> as per gi eval # Transaminitis --> trend lft's --> GI consult, apprec recs --> ab us: reviewed # Elevated troponin secondary to sepsis versus ACS --> as per Cardiology recs # Hypertension- improved --> sbp goal <150 # Vent dependent with trach --> on vent currently --> as per Pulmonary recs # Hypokalemia --> give vit K # Dysphagia s/p gtube feeds # CHf hx with hyponatremia --> 1l fluid restriction # Dvt ppx with lovenox The timing of this note does not necessarily reflect the time of the patient was seen. GREATLY APPRECIATE CONSULTATION. Subjective Genitourinary: Denies: no symptoms, burning, discharge, frequency, flank pain, hematuria, incontinence, pain, urgency, other Allergies: Coded Allergies: Crayfish (Unverified Allergy, Unknown, 11/11/18) Uncoded Allergies: Crawfish (Allergy, Unknown, 11/09/18) Subjective 11/14: no events to report, labs relatively stable, hgb 8.9, on vent 11/15: no bleeding, no chills, labs reviewed, no major changes 11/16: cxr-->bilateral interstitial edema, vs stable, on abx, on vent, contact isolation 11/17: labs reviewed, on abx, vs stable, on vent, no distress 11/18: remains on gtube feeds, is on vent, on kaykay/vanc 11/20: no events, no bleeding, kaykay, vanc, diflucan, no f/c 11/21: remains on vent, gtube feeds, no major changes, no bleeding 11/22: ct abdomen pelvis w/contrast reviewed, vs stable, no acute events, labs reviewed, remains intubated, low grade fever 11/23: reviewed meds, abx have been changed, remains altered currently 11/24: labs reviewed, vs stable, med reviewed, no sob, no distress, on vent 11/25: remains on vent, no major events, on glucerna, fluid restriction 11/27: signed consent today, no f/c, no night sweats 11/28: no f/c, on abx, on vent, no distress, picc line in 11/29: no events to report, no f/c, no bleeding noted, on vent 11/30: vs stable, no f/c, on vent, obtunded, gtube feeds 12/01: no f/c, cxr-->pulmonary edema, meds reviewed, contact precaution, on vent , labs noted 12/03: ongoing gtube feeds, nava in place, on vent, no bleeding 12/04: remains obtunded, on trach/to vent, no bleeding today, labs noted 12/05: electrolytes repleted overnight, no major changes, prbc was ordered hgb 6.6 12/06: on vent, trach dependent, no f/c, no bleeding 12/07: no events, labs noted 12/08: neck wounds being addressed, labs pending, no f/c overnight Objective Objective Current Medications Medications (Trade) Dose Ordered Sig/Lupe Route PRN Reason Start Time Stop Time Status Last Admin Dose Admin Acetaminophen (Tylenol) 650 mg Q4H PRN GT Mild Pain/Temp > 100.5 11/09/18 05:00 12/09/18 04:59 11/24/18 21:50 Albuterol/ Ipratropium (Albuterol/ Ipratropium) 3 ml Q4H PRN HHN Shortness of Breath 12/05/18 19:00 12/10/18 18:59 Albuterol/ Ipratropium (Albuterol/ Ipratropium) 3 ml Q6HRT HHN 12/05/18 19:00 12/10/18 18:59 12/08/18 01:09 Amlodipine Besylate (Norvasc) 5 mg DAILY GT 12/05/18 09:00 12/09/18 08:59 12/06/18 08:58 Bisacodyl (Dulcolax) 10 mg DAILY PRN RECTAL Constipation 11/09/18 05:00 12/09/18 04:59 Chlorhexidine Gluconate (Corazon-Hex 2%) 1 applic DAILY@2000 TOPIC 11/12/18 20:00 12/12/18 19:59 12/07/18 20:06 Dextrose (Dextrose 50%) 25 ml Q30M PRN IV Hypoglycemia 11/09/18 04:45 12/09/18 04:44 Dextrose (Dextrose 50%) 50 ml Q30M PRN IV Hypoglycemia 11/09/18 04:45 12/09/18 04:44 11/09/18 09:09 Enoxaparin Sodium (Lovenox) 40 mg DAILY SUBQ 11/09/18 09:00 12/09/18 08:59 12/07/18 08:41 Famotidine (Pepcid) 20 mg EVERY 12 HOURS GT 11/09/18 21:00 12/09/18 08:59 12/07/18 20:06 Furosemide (Lasix) 40 mg EVERY 12 HOURS IV 12/04/18 21:00 01/03/19 20:59 12/07/18 20:06 Insulin Aspart (NovoLOG) Q6HR SUBQ 11/09/18 06:00 12/09/18 05:59 12/06/18 11:56 Insulin Detemir (Levemir) 4 units EVERY 12 HOURS SUBQ 11/16/18 21:00 12/09/18 08:59 12/07/18 20:08 Labetalol HCl (Normodyne) 200 mg Q8HR GT 11/09/18 06:00 12/09/18 05:59 12/08/18 05:01 Lactulose (Cephulac) 10 gm THREE TIMES A DAY GT 11/27/18 18:00 12/27/18 12:59 12/07/18 17:05 Levetiracetam (Keppra) 1,500 mg Q12HR GT 11/09/18 09:00 12/09/18 08:59 12/07/18 20:06 Magnesium Hydroxide (Mom) 30 ml DAILY PRN GT Constipation 11/09/18 05:00 12/09/18 04:59 Metronidazole (Flagyl) 500 mg EVERY 8 HOURS ORAL 12/06/18 22:00 12/13/18 21:59 12/08/18 05:01 Ondansetron HCl (Zofran) 4 mg Q6H PRN GT Nausea & Vomiting 11/09/18 05:00 12/09/18 04:59 Phenobarbital (PHENobarbital) 60 mg BID GT 11/09/18 09:00 12/09/18 08:59 12/07/18 17:05 Phenytoin (Dilantin) 100 mg Q8HR GT 11/09/18 06:00 12/09/18 05:59 12/07/18 21:02 Polyethylene Glycol (Miralax) 17 gm DAILYPRN PRN GT Constipation 11/14/18 10:30 12/12/18 10:29 Polymyxin B Sulfate 860164 units/Sodium Chloride 550 ml @ 550 mls/hr EVERY 12 HOURS IVPB 12/06/18 17:30 12/13/18 17:29 12/07/18 20:05 Sennosides (Senokot) 8.6 mg EVERY 12 HOURS GT 11/09/18 21:00 12/09/18 08:59 12/07/18 20:07 Trimethoprim/ Sulfamethoxazole (Bactrim-DS) 1 tab Q12HR ORAL 12/06/18 21:00 12/13/18 20:59 12/07/18 20:07 Vancomycin HCl (Vanco rx to dose) 1 ea DAILY PRN MISC Per rx protocol 12/06/18 15:15 01/05/19 15:14 Vancomycin HCl 1 gm/Sodium Chloride 275 ml @ 183.708 mls/hr Q12HR@0800,2000 IVPB 12/07/18 08:00 12/12/18 07:59 12/07/18 20:06 Last 24 Hour Vital Signs Date Time Temp Pulse Resp B/P (MAP) Pulse Ox O2 Delivery O2 Flow Rate FiO2 12/08/18 05:01 93 137/67 12/08/18 04:50 99 24 30 12/08/18 04:00 30 12/08/18 04:00 98.1 93 18 137/67 (90) 100 12/08/18 04:00 Mechanical Ventilator 12/08/18 04:00 98 12/08/18 03:00 82 19 30 12/08/18 01:09 90 20 100 Mechanical Ventilator 30 93 24 30 12/08/18 00:00 30 12/08/18 00:00 Mechanical Ventilator 12/08/18 00:00 98.3 92 21 124/68 (86) 96 12/08/18 00:00 88 12/07/18 23:28 95 26 30 12/07/18 21:03 92 118/65 12/07/18 21:00 96 26 30 12/07/18 20:00 96 12/07/18 20:00 98.7 92 16 118/65 (82) 96 12/07/18 20:00 Mechanical Ventilator 12/07/18 20:00 30 12/07/18 19:18 98 26 100 Mechanical Ventilator 30 98 24 30 12/07/18 16:45 95 27 30 12/07/18 16:00 88 12/07/18 16:00 Mechanical Ventilator 12/07/18 16:00 30 12/07/18 15:51 98.4 89 20 116/67 (83) 100 12/07/18 15:06 90 23 30 12/07/18 13:33 95 24 100 12/07/18 13:30 90 119/66 12/07/18 13:23 90 25 Mechanical Ventilator 30 30 12/07/18 12:00 30 12/07/18 12:00 98.2 95 20 119/66 (83) 100 12/07/18 12:00 Mechanical Ventilator 12/07/18 11:28 93 12/07/18 11:19 96 25 30 12/07/18 08:33 93 27 30 12/07/18 08:14 89 105/57 12/07/18 08:00 30 12/07/18 08:00 Mechanical Ventilator 12/07/18 08:00 90 12/07/18 07:57 98.7 89 20 105/57 (73) 100 12/07/18 07:57 93 25 100 12/07/18 07:47 90 25 Mechanical Ventilator 30 30 12/07/18 05:32 100 129/63 12/07/18 05:30 97 20 30 12/07/18 04:00 Mechanical Ventilator 12/07/18 04:00 99.4 98 26 117/63 (81) 100 12/07/18 04:00 30 12/07/18 03:23 101 12/07/18 03:10 96 20 30 12/07/18 01:11 91 20 30 12/07/18 00:00 98.4 95 22 103/60 (74) 99 12/07/18 00:00 Mechanical Ventilator 12/06/18 23:28 99 12/06/18 22:41 95 24 30 12/06/18 21:41 104 121/63 12/06/18 21:01 82 19 30 12/06/18 20:00 96 12/06/18 20:00 98.7 102 24 90/42 (58) 100 12/06/18 20:00 Mechanical Ventilator 12/06/18 20:00 30 12/06/18 19:20 84 22 30 12/06/18 17:17 81 22 30 12/06/18 16:00 Mechanical Ventilator 12/06/18 16:00 97.2 75 22 110/65 (80) 95 12/06/18 16:00 86 12/06/18 16:00 30 12/06/18 15:12 90 110/65 12/06/18 14:59 85 23 30 12/06/18 13:29 80 23 99 Mechanical Ventilator 30 80 23 30 12/06/18 12:00 Mechanical Ventilator 12/06/18 12:00 96.6 68 25 112/64 (80) 100 12/06/18 12:00 30 12/06/18 11:41 81 12/06/18 11:10 80 28 30 12/06/18 09:07 79 22 30 12/06/18 08:58 80 120/68 12/06/18 08:00 30 12/06/18 08:00 Mechanical Ventilator 12/06/18 08:00 96.0 80 22 120/68 (85) 100 12/06/18 07:40 72 12/06/18 07:15 67 20 100 Mechanical Ventilator 30 71 17 30 12/06/18 05:59 67 102/63 Intake and Output 12/07/18 12/08/18 18:59 06:59 Intake Total 520 ml 1502.416 ml Output Total 1650 ml 1075 ml Balance -1130 ml 427.416 ml IV Total 917.416 ml Tube Feeding 520 ml 585 ml Output Urine Total 1650 ml 1075 ml Labs Test 12/05/18 10:40 12/05/18 17:15 12/06/18 00:00 12/06/18 03:22 Sodium Level 128 MMOL/L (136-145) 129 MMOL/L (136-145) Potassium Level 3.7 MMOL/L (3.5-5.1) 3.8 MMOL/L (3.5-5.1) Chloride Level 94 MMOL/L (98-107) 94 MMOL/L (98-107) Carbon Dioxide Level 26 MMOL/L (21-32) 30 MMOL/L (21-32) Anion Gap 8 mmol/L (5-15) 5 mmol/L (5-15) Blood Urea Nitrogen 22 mg/dL (7-18) 26 mg/dL (7-18) Creatinine 0.6 MG/DL (0.55-1.30) 0.6 MG/DL (0.55-1.30) Estimat Glomerular Filtration Rate mL/min (>60) mL/min (>60) Glucose Level 139 MG/DL (74-106) 102 MG/DL (74-106) Calcium Level 8.2 MG/DL (8.5-10.1) 8.1 MG/DL (8.5-10.1) White Blood Count 11.3 K/UL (4.8-10.8) 12.2 K/UL (4.8-10.8) Red Blood Count 3.03 M/UL (4.20-5.40) 2.84 M/UL (4.20-5.40) Hemoglobin 8.1 G/DL (12.0-16.0) 7.6 G/DL (12.0-16.0) Hematocrit 24.2 % (37.0-47.0) 22.3 % (37.0-47.0) Mean Corpuscular Volume 80 FL (80-99) 78 FL (80-99) Mean Corpuscular Hemoglobin 26.8 PG (27.0-31.0) 26.9 PG (27.0-31.0) Mean Corpuscular Hemoglobin Concent 33.6 G/DL (32.0-36.0) 34.3 G/DL (32.0-36.0) Red Cell Distribution Width 17.1 % (11.6-14.8) 18.2 % (11.6-14.8) Platelet Count 181 K/UL (150-450) 184 K/UL (150-450) Mean Platelet Volume 6.3 FL (6.5-10.1) 6.3 FL (6.5-10.1) Neutrophils (%) (Auto) 77.7 % (45.0-75.0) % (45.0-75.0) Lymphocytes (%) (Auto) 6.2 % (20.0-45.0) % (20.0-45.0) Monocytes (%) (Auto) 13.3 % (1.0-10.0) % (1.0-10.0) Eosinophils (%) (Auto) 0.7 % (0.0-3.0) % (0.0-3.0) Basophils (%) (Auto) 2.0 % (0.0-2.0) % (0.0-2.0) Stool Occult Blood Negative (NEGATIVE) Total Bilirubin 0.4 MG/DL (0.2-1.0) Aspartate Amino Transf (AST/SGOT) 47 U/L (15-37) Alanine Aminotransferase (ALT/SGPT) 39 U/L (12-78) Alkaline Phosphatase 433 U/L (46-116) Total Protein 5.1 G/DL (6.4-8.2) Albumin 1.3 G/DL (3.4-5.0) Globulin 3.8 g/dL Albumin/Globulin Ratio 0.3 (1.0-2.7) Test 12/06/18 17:45 12/07/18 04:00 Urine Color Pale yellow Urine Appearance Slightly cloudy Urine pH 9 (4.5-8.0) Urine Specific [place] 1.015 (1.005-1.035) Urine Protein 2+ (NEGATIVE) Urine Glucose (UA) Negative (NEGATIVE) Urine Ketones Negative (NEGATIVE) Urine Blood 3+ (NEGATIVE) Urine Nitrite Positive (NEGATIVE) Urine Bilirubin Negative (NEGATIVE) Urine Urobilinogen Normal MG/DL (0.0-1.0) Urine Leukocyte Esterase 1+ (NEGATIVE) Urine RBC 5-10 /HPF (0 - 2) Urine WBC 5-10 /HPF (0 - 2) Urine Squamous Epithelial Cells Few /LPF (NONE/OCC) Urine Amorphous Sediment Moderate /LPF (NONE) Urine Bacteria Moderate /HPF (NONE) White Blood Count 13.3 K/UL (4.8-10.8) Red Blood Count 3.16 M/UL (4.20-5.40) Hemoglobin 8.6 G/DL (12.0-16.0) Hematocrit 25.2 % (37.0-47.0) Mean Corpuscular Volume 80 FL (80-99) Mean Corpuscular Hemoglobin 27.4 PG (27.0-31.0) Mean Corpuscular Hemoglobin Concent 34.3 G/DL (32.0-36.0) Red Cell Distribution Width 17.4 % (11.6-14.8) Platelet Count 265 K/UL (150-450) Mean Platelet Volume 6.4 FL (6.5-10.1) Neutrophils (%) (Auto) 78.4 % (45.0-75.0) Lymphocytes (%) (Auto) 6.5 % (20.0-45.0) Monocytes (%) (Auto) 12.8 % (1.0-10.0) Eosinophils (%) (Auto) 0.9 % (0.0-3.0) Basophils (%) (Auto) 1.5 % (0.0-2.0) Sodium Level 131 MMOL/L (136-145) Potassium Level 4.9 MMOL/L (3.5-5.1) Chloride Level 96 MMOL/L (98-107) Carbon Dioxide Level 31 MMOL/L (21-32) Anion Gap 5 mmol/L (5-15) Blood Urea Nitrogen 28 mg/dL (7-18) Creatinine 0.7 MG/DL (0.55-1.30) Estimat Glomerular Filtration Rate mL/min (>60) Glucose Level 103 MG/DL (74-106) Calcium Level 7.0 MG/DL (8.5-10.1) Total Bilirubin 0.4 MG/DL (0.2-1.0) Aspartate Amino Transf (AST/SGOT) 39 U/L (15-37) Alanine Aminotransferase (ALT/SGPT) 40 U/L (12-78) Alkaline Phosphatase 489 U/L (46-116) Total Protein 5.3 G/DL (6.4-8.2) Albumin 1.3 G/DL (3.4-5.0) Globulin 4.0 g/dL Albumin/Globulin Ratio 0.3 (1.0-2.7) Height (Feet): 5 Height (Inches): 8.00 Weight (Pounds): 244 Objective Physical Exam: Vitals: reviewed Gen: NAD, nonverbal HEENT: normocephalic, atraumatic Neck: non-tender, normal alignment ++ vent/trach Respiratory: normal breath sounds bilaterally CV: normal peripheral pulses, rrr Abdomen: normal bowel sounds, soft, nontender +gtube Extremities: 1-2+ edema Yonathan Hernandez MD Dec 08, 2018 05:59
--- NOTE | 2018-12-08 07:26 | NUR ---
HAND-OFF: Report given to May Krause RN, pt. remains stable and no signs of distress noted.
--- NOTE | 2018-12-08 07:35 | NUR ---
NURSE NOTES: Report received from CHARLEE Harris. Patient was obtunded with trach tube to vent. AC 14 TV 375 FIO2 30 PEEP 5 tolerated settings. No signs of discomfort or pain. SR on machine stone polisher. On GTF Glucerna 1.2 at 65 mL/hr, patient tolerating feedings well, no residual noted. Ospina catheter in place, yellow urine. PICC line to right upper arm, intact. Skin warm and dry; sacral stage IV, right heel DTI, open skin tear on l ear and trach site. Side rails up, HOB elevated, bed locked and in lowest position. Will continue to monitor.
[2018-12-08 08:00] VITALS: BP 101/51
[2018-12-08 08:25] LABS: BASOPHILS % (AUTO) 0.9 % (0.0-2.0); EOSINOPHILS % (AUTO) 0.9 % (0.0-3.0); HEMATOCRIT 23.9 % (37.0-47.0); HEMOGLOBIN 8.5 G/DL (12.0-16.0); LYMPHOCYTES % (AUTO) 4.6 % (20.0-45.0); MEAN CORPUSCULAR VOLUME 79 FL (80-99); MONOCYTES % (AUTO) 14.4 % (1.0-10.0); NEUTROPHILS % (AUTO) 79.1 % (45.0-75.0); PLATELET COUNT 231 K/UL (150-450); RED BLOOD COUNT 3.03 M/UL (4.20-5.40); RED CELL DISTRIBUTION WIDTH 17.3 % (11.6-14.8); WHITE BLOOD COUNT 16.7 K/UL (4.8-10.8)
[2018-12-08] MEDS: PHENobarbital Elixir 30mg/7.5ml GT SCH ×2 (08:36→18:04)
[2018-12-08] MEDS: Lactulose 10gm/15ml UDC GT SCH ×3 (08:37→18:00)
[2018-12-08] MEDS: levETIRAcetam 500mg/5ml Liquid GT SCH ×2 (08:37→20:10)
[2018-12-08] MEDS: Bactrim-DS 1 tab ORAL SCH ×2 (08:38→20:09)
[2018-12-08] MEDS: POLYMYXIN B SULFATE IVPB SCH ×2 (08:38→20:09)
[2018-12-08] MEDS: SODIUM CHLORIDE IVPB SCH ×2 (08:38→20:09)
[2018-12-08] MEDS: Sennosides 8.6mg tab GT SCH ×2 (08:39→20:09)
[2018-12-08 08:41] LABS: ALANINE AMINOTRANSFERASE 31 U/L (12-78); ALBUMIN 1.3 G/DL (3.4-5.0); ALBUMIN/GLOBULIN RATIO 0.3 (1.0-2.7); ALKALINE PHOSPHATASE 516 U/L (46-116); ANION GAP 6 mmol/L (5-15); ASPARTATE AMINO TRANSFERASE 34 U/L (15-37); BILIRUBIN,TOTAL 0.5 MG/DL (0.2-1.0); BLOOD UREA NITROGEN 31 mg/dL (7-18); CALCIUM 8.2 MG/DL (8.5-10.1); CARBON DIOXIDE 29 MMOL/L (21-32); CHLORIDE 100 MMOL/L (98-107); CREATININE 0.8 MG/DL (0.55-1.30); POTASSIUM 4.3 MMOL/L (3.5-5.1); SODIUM 135 MMOL/L (136-145)
[2018-12-08] MEDS: Enoxaparin 40mg Inj SUBQ SCH (08:46)
[2018-12-08] MEDS: Levemir Flexpen SUBQ SCH ×2 (08:51→20:12)
--- NOTE | 2018-12-08 08:58 | General Progress Note ---
Assessment/Plan Status: deteriorating - new pnemonia Assessment/Plan: (1) Abnormal LFTs ICD Codes: R94.5 - Abnormal results of liver function studies SNOMED: 574910555 (2) Decubitus skin ulcer ICD Codes: L89.90 - Pressure ulcer of unspecified site, unspecified stage SNOMED: 059436569 (3) Protein calorie malnutrition ICD Codes: E46 - Unspecified protein-calorie malnutrition SNOMED: 359746258 (4) Colon adenocarcinoma ICD Codes: C18.9 - Malignant neoplasm of colon, unspecified SNOMED: 715537361 (5) Sepsis ICD Codes: A41.9 - Sepsis, unspecified organism SNOMED: 47445264 (6) Tracheostomy dependence ICD Codes: Z93.0 - Tracheostomy status SNOMED: 952299271 (7) 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 Humphreis. Assessment/Plan Assessment - Iron deficiency anemia - abnormal LFT - ? meds, passive congestion - dysphagia, s/p GT - Resp, failure, s/p Trach - hepatitis panel negative Recommendations - Continue TF - Monitor LFT - follow CBC - Conservative approach given poor health- -neg stool ob Subjective ROS Limited/Unobtainable: No Allergies: Coded Allergies: Crayfish (Unverified Allergy, Unknown, 11/11/18) Uncoded Allergies: Crawfish (Allergy, Unknown, 11/09/18) Subjective fever last night had BM Objective Last 24 Hour Vital Signs Date Time Temp Pulse Resp B/P (MAP) Pulse Ox O2 Delivery O2 Flow Rate FiO2 12/08/18 08:43 91 101/51 12/08/18 06:53 90 26 99 Mechanical Ventilator 30 91 24 30 12/08/18 05:01 93 137/67 12/08/18 04:50 99 24 30 12/08/18 04:00 30 12/08/18 04:00 98.1 93 18 137/67 (90) 100 12/08/18 04:00 Mechanical Ventilator 12/08/18 04:00 98 12/08/18 03:00 82 19 30 12/08/18 01:09 90 20 100 Mechanical Ventilator 30 93 24 30 12/08/18 00:00 30 12/08/18 00:00 Mechanical Ventilator 12/08/18 00:00 98.3 92 21 124/68 (86) 96 12/08/18 00:00 88 12/07/18 23:28 95 26 30 12/07/18 21:03 92 118/65 12/07/18 21:00 96 26 30 12/07/18 20:00 96 12/07/18 20:00 98.7 92 16 118/65 (82) 96 12/07/18 20:00 Mechanical Ventilator 12/07/18 20:00 30 12/07/18 19:18 98 26 100 Mechanical Ventilator 30 98 24 30 12/07/18 16:45 95 27 30 12/07/18 16:00 88 12/07/18 16:00 Mechanical Ventilator 12/07/18 16:00 30 12/07/18 15:51 98.4 89 20 116/67 (83) 100 12/07/18 15:06 90 23 30 12/07/18 13:33 95 24 100 12/07/18 13:30 90 119/66 12/07/18 13:23 90 25 Mechanical Ventilator 30 30 12/07/18 12:00 30 12/07/18 12:00 98.2 95 20 119/66 (83) 100 12/07/18 12:00 Mechanical Ventilator 12/07/18 11:28 93 12/07/18 11:19 96 25 30 Intake and Output 12/07/18 12/08/18 19:00 07:00 Intake Total 455 ml 1437.416 ml Output Total 1650 ml 2325 ml Balance -1195 ml -887.584 ml IV Total 917.416 ml Tube Feeding 455 ml 520 ml Output Urine Total 1650 ml 2325 ml # Bowel Movements 1 Laboratory Tests 12/08/18 07:40: White Blood Count 16.7H, Red Blood Count 3.03L, Hemoglobin 8.5L, Hematocrit 23.9L, Mean Corpuscular Volume 79L, Mean Corpuscular Hemoglobin 27.9, Mean Corpuscular Hemoglobin Concent 35.4, Red Cell Distribution Width 17.3H, Platelet Count 231, Mean Platelet Volume 6.8, Neutrophils (%) (Auto) 79.1H, Lymphocytes (%) (Auto) 4.6L, Monocytes (%) (Auto) 14.4H, Eosinophils (%) (Auto) 0.9, Basophils (%) (Auto) 0.9, Sodium Level 135L, Potassium Level 4.3, Chloride Level 100, Carbon Dioxide Level 29, Anion Gap 6, Blood Urea Nitrogen 31H, Creatinine 0.8, Estimat Glomerular Filtration Rate , Glucose Level 77, Calcium Level 8.2L, Total Bilirubin 0.5, Aspartate Amino Transf (AST/SGOT) 34, Alanine Aminotransferase (ALT/SGPT) 31, Alkaline Phosphatase 516H, Total Protein 5.4L, Albumin 1.3L, Globulin 4.1, Albumin/Globulin Ratio 0.3L, Vancomycin Level Trough 41.9H Height (Feet): 5 Height (Inches): 8.00 Weight (Pounds): 244 General Appearance: no apparent distress EENT: normal ENT inspection Neck: supple Cardiovascular: normal rate Respiratory/Chest: decreased breath sounds Abdomen: normal bowel sounds, non tender, soft Extremities: non-tender Casper Humphries MD Dec 08, 2018 08:58
--- NOTE | 2018-12-08 09:27 | Consultation ---
History of Present Illness General Date patient seen: Dec 08, 2018 Time patient seen: 09:20 Chief Complaint: Tongue Laceration Referring physician: Dr. Jennifer Belle Reason for Consultation: VDRF Present Illness HPI Patient is a 78 yyear old female who was brought in from an outside hospital. She is currently vent and trach dependent with VDRF and PNA and colitis. She had a prior cardiac arrest and perhaps a traumatic intubation with a severe tongue laceration. Her tongue is incredibly swollen and there is concern about management of the laceration. She is non-responsive. History was obtained fmo the chart and the nurse. Allergies: Coded Allergies: Crayfish (Unverified Allergy, Unknown, 11/11/18) Uncoded Allergies: Crawfish (Allergy, Unknown, 11/09/18) Medication History Scheduled Amlodipine Besylate (Norvasc), 10 MG GT DAILY, (Reported) Calcium Carbonate (Calcium), 500 MG GT TID, (Reported) Chlorhexidine Gluconate (Peridex), 15 ML MM TID, (Reported) Cranberry Fruit (Cranberry), 450 MG GT DAILY, (Reported) Enoxaparin (Lovenox), 40 MG SUBQ DAILY, (Reported) Famotidine (Famotidine), 20 MG GT TWICE A DAY, (Reported) Ferrous Sulfate (Ferosul), 7.5 ML GT DAILY, (Reported) Furosemide* (Lasix*), 40 MG GT TWICE A DAY, (Reported) Hydralazine Hcl* (Hydralazine Hcl*), 5 MG GT EVERY 8 HOURS, (Reported) Insulin Glargine (Lantus), 6 UNITS SUBQ BID, (Reported) Labetalol HCl (Labetalol HCl), 200 MG GT Q8HR, (Reported) Levetiracetam (Keppra), 15 ML GT Q12HR, (Reported) Magnesium Oxide (Magnesium Oxide), 400 MG GT TID, (Reported) Multivitamin with Minerals (Multivitamins with Minerals), 1 TAB GT DAILY, ( Reported) Phenobarbital* (Phenobarbital*), 60 MG GT BID, (Reported) Phenytoin (Dilantin-125), 100 MG GT Q8HR, (Reported) Psyllium Seed/Aspartame (Natural Fiber Powder), 5 ML GT DAILY, (Reported) Sennosides (Senna), 8.6 MG GT Q12H, (Reported) Valproate Sodium (Valproate Sodium), 500 MG GT Q8HR, (Reported) Vit C/Ascorbate Ca/Ascorb Sod (Vitamin C 500 Mg/15 Ml Liquid), 500 MG GT DAILY, (Reported) Scheduled PRN Acetaminophen* (Acetaminophen 325MG Tablet*), 650 MG GT Q4H PRN for Mild Pain/ Temp > 100.5, (Reported) Bisacodyl (Dulcolax), 10 MG RC DAILY PRN for Constipation, (Reported) Ipratropium Temple 0.5MG/2.5ML (Ipratropium Temple 0.5MG/2.5ML), 3 ML HHN Q2H PRN for Shortness of Breath, (Reported) Ipratropium Temple 0.5MG/2.5ML (Ipratropium Temple 0.5MG/2.5ML), 3 ML HHN Q6H PRN for Shortness of Breath, (Reported) Lorazepam* (Ativan*), 2 MG SL DAILY PRN for For Seizures, (Reported) Magnesium Hydroxide* (Milk Of Magnesia*), 30 ML GT DAILY PRN for Constipation, ( Reported) Ondansetron (Zofran), 4 MG GT Q6H PRN for Nausea & Vomiting, (Reported) Miscellaneous Medications Insulin Lispro (Humalog), 0 SUBQ, (Reported) Patient History Limited by: medical condition History Provided By: Medical Record Healthcare decision maker Resuscitation status Full Code Advanced Directive on File No Past Medical/Surgical History Past Medical/Surgical History: (1) Fever (2) Diabetes (3) Seizure disorder (4) HTN (hypertension) (5) Tongue abnormality (6) Anoxic brain damage (7) Colon adenocarcinoma (8) Tracheostomy dependence (9) Ventilator dependence (10) UTI (urinary tract infection) (11) Decubitus skin ulcer (12) Abnormal LFTs (13) MRSA (methicillin resistant staphylococcus aureus) pneumonia (14) Drug rash (15) Bacteremia (16) Gastrostomy in place (17) alf resident Review of Systems Constitutional: Reports: see HPI Eye: Reports: see HPI ENT: Reports: see HPI Respiratory: Reports: see HPI Cardiovascular: Reports: see HPI Gastrointestinal: Reports: see HPI Genitourinary: Reports: see HPI Musculoskeletal: Reports: see HPI Skin: Reports: see HPI Psychiatric: Reports: see HPI Neurological: Reports: see HPI Endocrine: Reports: see HPI ROS Narrative unable to obtain ROS 2/2 patient status Physical Exam General Appearance: obese, other - GCS9T Lines, tubes and drains: trach, gtube HEENT: normocephalic, atraumatic, PERRL, status post trach, other - severe tongue edema with healthy edeges of a midline tongue laceration extending towards posterior thirdof tongue Neck: non-tender, normal alignment Neurologic: other - GCS9T Last 24 Hour Vital Signs Date Time Temp Pulse Resp B/P (MAP) Pulse Ox O2 Delivery O2 Flow Rate FiO2 12/08/18 08:43 91 101/51 12/08/18 06:53 90 26 99 Mechanical Ventilator 30 91 24 30 12/08/18 05:01 93 137/67 12/08/18 04:50 99 24 30 12/08/18 04:00 30 12/08/18 04:00 98.1 93 18 137/67 (90) 100 12/08/18 04:00 Mechanical Ventilator 12/08/18 04:00 98 12/08/18 03:00 82 19 30 12/08/18 01:09 90 20 100 Mechanical Ventilator 30 93 24 30 12/08/18 00:00 30 12/08/18 00:00 Mechanical Ventilator 12/08/18 00:00 98.3 92 21 124/68 (86) 96 12/08/18 00:00 88 12/07/18 23:28 95 26 30 12/07/18 21:03 92 118/65 12/07/18 21:00 96 26 30 12/07/18 20:00 96 12/07/18 20:00 98.7 92 16 118/65 (82) 96 12/07/18 20:00 Mechanical Ventilator 12/07/18 20:00 30 12/07/18 19:18 98 26 100 Mechanical Ventilator 30 98 24 30 12/07/18 16:45 95 27 30 12/07/18 16:00 88 12/07/18 16:00 Mechanical Ventilator 12/07/18 16:00 30 12/07/18 15:51 98.4 89 20 116/67 (83) 100 12/07/18 15:06 90 23 30 12/07/18 13:33 95 24 100 12/07/18 13:30 90 119/66 12/07/18 13:23 90 25 Mechanical Ventilator 30 30 12/07/18 12:00 30 12/07/18 12:00 98.2 95 20 119/66 (83) 100 12/07/18 12:00 Mechanical Ventilator 12/07/18 11:28 93 12/07/18 11:19 96 25 30 Intake and Output 12/07/18 12/08/18 19:00 07:00 Intake Total 455 ml 1437.416 ml Output Total 1650 ml 2325 ml Balance -1195 ml -887.584 ml IV Total 917.416 ml Tube Feeding 455 ml 520 ml Output Urine Total 1650 ml 2325 ml # Bowel Movements 1 Laboratory Tests Test 12/08/18 07:40 White Blood Count 16.7 K/UL (4.8-10.8) H Red Blood Count 3.03 M/UL (4.20-5.40) L Hemoglobin 8.5 G/DL (12.0-16.0) L Hematocrit 23.9 % (37.0-47.0) L Mean Corpuscular Volume 79 FL (80-99) L Mean Corpuscular Hemoglobin 27.9 PG (27.0-31.0) Mean Corpuscular Hemoglobin Concent 35.4 G/DL (32.0-36.0) Red Cell Distribution Width 17.3 % (11.6-14.8) H Platelet Count 231 K/UL (150-450) Mean Platelet Volume 6.8 FL (6.5-10.1) Neutrophils (%) (Auto) 79.1 % (45.0-75.0) H Lymphocytes (%) (Auto) 4.6 % (20.0-45.0) L Monocytes (%) (Auto) 14.4 % (1.0-10.0) H Eosinophils (%) (Auto) 0.9 % (0.0-3.0) Basophils (%) (Auto) 0.9 % (0.0-2.0) Sodium Level 135 MMOL/L (136-145) L Potassium Level 4.3 MMOL/L (3.5-5.1) Chloride Level 100 MMOL/L (98-107) Carbon Dioxide Level 29 MMOL/L (21-32) Anion Gap 6 mmol/L (5-15) Blood Urea Nitrogen 31 mg/dL (7-18) H Creatinine 0.8 MG/DL (0.55-1.30) Estimat Glomerular Filtration Rate mL/min (>60) Glucose Level 77 MG/DL (74-106) Calcium Level 8.2 MG/DL (8.5-10.1) L Total Bilirubin 0.5 MG/DL (0.2-1.0) Aspartate Amino Transf (AST/SGOT) 34 U/L (15-37) Alanine Aminotransferase (ALT/SGPT) 31 U/L (12-78) Alkaline Phosphatase 516 U/L (46-116) H Total Protein 5.4 G/DL (6.4-8.2) L Albumin 1.3 G/DL (3.4-5.0) L Globulin 4.1 g/dL Albumin/Globulin Ratio 0.3 (1.0-2.7) L Vancomycin Level Trough 41.9 ug/mL (5.0-12.0) H Height (Feet): 5 Height (Inches): 8.00 Weight (Pounds): 244 Medications Current Medications Medications (Trade) Dose Ordered Sig/Lupe Route PRN Reason Start Time Stop Time Status Last Admin Dose Admin Acetaminophen (Tylenol) 650 mg Q4H PRN GT Mild Pain/Temp > 100.5 11/09/18 05:00 12/09/18 04:59 11/24/18 21:50 Albuterol/ Ipratropium (Albuterol/ Ipratropium) 3 ml Q4H PRN HHN Shortness of Breath 12/05/18 19:00 12/10/18 18:59 Albuterol/ Ipratropium (Albuterol/ Ipratropium) 3 ml Q6HRT HHN 12/05/18 19:00 12/10/18 18:59 12/08/18 06:53 Amlodipine Besylate (Norvasc) 5 mg DAILY GT 12/05/18 09:00 12/09/18 08:59 12/08/18 08:43 Bisacodyl (Dulcolax) 10 mg DAILY PRN RECTAL Constipation 11/09/18 05:00 12/09/18 04:59 Chlorhexidine Gluconate (Corazon-Hex 2%) 1 applic DAILY@1999 TOPIC 11/12/18 20:00 12/12/18 19:59 12/07/18 20:06 Dextrose (Dextrose 50%) 25 ml Q30M PRN IV Hypoglycemia 11/09/18 04:45 12/09/18 04:44 Dextrose (Dextrose 50%) 50 ml Q30M PRN IV Hypoglycemia 11/09/18 04:45 12/09/18 04:44 11/09/18 09:09 Enoxaparin Sodium (Lovenox) 40 mg DAILY SUBQ 11/09/18 09:00 12/09/18 08:59 12/08/18 08:46 Famotidine (Pepcid) 20 mg EVERY 12 HOURS GT 11/09/18 21:00 12/09/18 08:59 12/08/18 08:38 Furosemide (Lasix) 40 mg EVERY 12 HOURS IV 12/04/18 21:00 01/03/19 20:59 12/08/18 08:37 Insulin Aspart (NovoLOG) Q6HR SUBQ 11/09/18 06:00 12/09/18 05:59 12/06/18 11:56 Insulin Detemir (Levemir) 4 units EVERY 12 HOURS SUBQ 11/16/18 21:00 12/09/18 08:59 12/08/18 08:51 Labetalol HCl (Normodyne) 200 mg Q8HR GT 11/09/18 06:00 12/09/18 05:59 12/08/18 05:01 Lactulose (Cephulac) 10 gm THREE TIMES A DAY GT 11/27/18 18:00 12/27/18 12:59 12/08/18 08:37 Levetiracetam (Keppra) 1,500 mg Q12HR GT 11/09/18 09:00 12/09/18 08:59 12/08/18 08:37 Magnesium Hydroxide (Mom) 30 ml DAILY PRN GT Constipation 11/09/18 05:00 12/09/18 04:59 Metronidazole (Flagyl) 500 mg EVERY 8 HOURS ORAL 12/06/18 22:00 12/13/18 21:59 12/08/18 05:01 Ondansetron HCl (Zofran) 4 mg Q6H PRN GT Nausea & Vomiting 11/09/18 05:00 12/09/18 04:59 Phenobarbital (PHENobarbital) 60 mg BID GT 11/09/18 09:00 12/09/18 08:59 12/08/18 08:36 Phenytoin (Dilantin) 100 mg Q8HR GT 11/09/18 06:00 12/09/18 05:59 12/08/18 05:59 Polyethylene Glycol (Miralax) 17 gm DAILYPRN PRN GT Constipation 11/14/18 10:30 12/12/18 10:29 Polymyxin B Sulfate 836140 units/Sodium Chloride 550 ml @ 550 mls/hr EVERY 12 HOURS IVPB 12/06/18 17:30 12/13/18 17:29 12/08/18 08:38 Sennosides (Senokot) 8.6 mg EVERY 12 HOURS GT 11/09/18 21:00 12/09/18 08:59 12/08/18 08:39 Trimethoprim/ Sulfamethoxazole (Bactrim-DS) 1 tab Q12HR ORAL 12/06/18 21:00 12/13/18 20:59 12/08/18 08:38 Vancomycin HCl (Vanco rx to dose) 1 ea DAILY PRN MISC Per rx protocol 12/06/18 15:15 01/05/19 15:14 Vancomycin HCl 1 gm/Sodium Chloride 275 ml @ 183.708 mls/hr Q12HR@0800,2000 IVPB 12/07/18 08:00 12/12/18 07:59 12/07/18 20:06 Assessment/Plan Status: stable Assessment/Plan: Tongue laceration (S01.512A) Given the level of edema nothing can currently be done. Please call me when the edema has resolved and we can freshen the laceration edges and suture the tongue. The etiology and history are unclear. Generaly speaking decadron 10mg would be helpful but given medical comorbidities I would leave that up to the primary team. Will sign off. David Moore MD Dec 08, 2018 09:27
--- NOTE | 2018-12-08 10:23 | Surgery Progress Note ---
Surgery Progress Note Subjective Additional Comments worsening leukocytosis alk phos elevated appreciate ENT input exam unchanged. Objective Last 24 Hour Vital Signs Date Time Temp Pulse Resp B/P (MAP) Pulse Ox O2 Delivery O2 Flow Rate FiO2 12/08/18 09:19 90 26 99 Mechanical Ventilator 30 91 24 30 12/08/18 08:43 91 101/51 12/08/18 08:00 30 12/08/18 08:00 90 12/08/18 08:00 Mechanical Ventilator 12/08/18 08:00 98.7 91 18 101/51 (68) 100 12/08/18 06:53 90 26 99 Mechanical Ventilator 30 91 24 30 12/08/18 05:01 93 137/67 12/08/18 04:50 99 24 30 12/08/18 04:00 30 12/08/18 04:00 98.1 93 18 137/67 (90) 100 12/08/18 04:00 Mechanical Ventilator 12/08/18 04:00 98 12/08/18 03:00 82 19 30 12/08/18 01:09 90 20 100 Mechanical Ventilator 30 93 24 30 12/08/18 00:00 30 12/08/18 00:00 Mechanical Ventilator 12/08/18 00:00 98.3 92 21 124/68 (86) 96 12/08/18 00:00 88 12/07/18 23:28 95 26 30 12/07/18 21:03 92 118/65 12/07/18 21:00 96 26 30 12/07/18 20:00 96 12/07/18 20:00 98.7 92 16 118/65 (82) 96 12/07/18 20:00 Mechanical Ventilator 12/07/18 20:00 30 12/07/18 19:18 98 26 100 Mechanical Ventilator 30 98 24 30 12/07/18 16:45 95 27 30 12/07/18 16:00 88 12/07/18 16:00 Mechanical Ventilator 12/07/18 16:00 30 12/07/18 15:51 98.4 89 20 116/67 (83) 100 12/07/18 15:06 90 23 30 12/07/18 13:33 95 24 100 12/07/18 13:30 90 119/66 12/07/18 13:23 90 25 Mechanical Ventilator 30 30 12/07/18 12:00 30 12/07/18 12:00 98.2 95 20 119/66 (83) 100 12/07/18 12:00 Mechanical Ventilator 12/07/18 11:28 93 12/07/18 11:19 96 25 30 I&O Intake and Output 12/07/18 12/08/18 19:00 07:00 Intake Total 455 ml 1437.416 ml Output Total 1650 ml 2325 ml Balance -1195 ml -887.584 ml IV Total 917.416 ml Tube Feeding 455 ml 520 ml Output Urine Total 1650 ml 2325 ml # Bowel Movements 1 Dressing: saturated Wound: other Drains: other Cardiovascular: RSR Respiratory: decreased breath sounds Abdomen: soft, present bowel sounds, non-distended Extremities: no cyanosis, other Laboratory Tests Test 12/08/18 07:40 White Blood Count 16.7 K/UL (4.8-10.8) H Red Blood Count 3.03 M/UL (4.20-5.40) L Hemoglobin 8.5 G/DL (12.0-16.0) L Hematocrit 23.9 % (37.0-47.0) L Mean Corpuscular Volume 79 FL (80-99) L Mean Corpuscular Hemoglobin 27.9 PG (27.0-31.0) Mean Corpuscular Hemoglobin Concent 35.4 G/DL (32.0-36.0) Red Cell Distribution Width 17.3 % (11.6-14.8) H Platelet Count 231 K/UL (150-450) Mean Platelet Volume 6.8 FL (6.5-10.1) Neutrophils (%) (Auto) 79.1 % (45.0-75.0) H Lymphocytes (%) (Auto) 4.6 % (20.0-45.0) L Monocytes (%) (Auto) 14.4 % (1.0-10.0) H Eosinophils (%) (Auto) 0.9 % (0.0-3.0) Basophils (%) (Auto) 0.9 % (0.0-2.0) Sodium Level 135 MMOL/L (136-145) L Potassium Level 4.3 MMOL/L (3.5-5.1) Chloride Level 100 MMOL/L (98-107) Carbon Dioxide Level 29 MMOL/L (21-32) Anion Gap 6 mmol/L (5-15) Blood Urea Nitrogen 31 mg/dL (7-18) H Creatinine 0.8 MG/DL (0.55-1.30) Estimat Glomerular Filtration Rate mL/min (>60) Glucose Level 77 MG/DL (74-106) Calcium Level 8.2 MG/DL (8.5-10.1) L Total Bilirubin 0.5 MG/DL (0.2-1.0) Aspartate Amino Transf (AST/SGOT) 34 U/L (15-37) Alanine Aminotransferase (ALT/SGPT) 31 U/L (12-78) Alkaline Phosphatase 516 U/L (46-116) H Total Protein 5.4 G/DL (6.4-8.2) L Albumin 1.3 G/DL (3.4-5.0) L Globulin 4.1 g/dL Albumin/Globulin Ratio 0.3 (1.0-2.7) L Vancomycin Level Trough 41.9 ug/mL (5.0-12.0) H Plan Problems: (1) Fever (2) Tongue abnormality Assessment & Plan: patients jaw clenched closed and tongue has been stuck for some time. tongue split from middle teeth and now in two. edema and unable to reduce keep tongue moist. apply lube jelly prn dryness. will monitor do not recommend surgical intervention for this current medical condition spoke with family. ENT. OMFS no intervention stable still overall (3) Tracheostomy dependence (4) Sepsis Assessment & Plan: gb no stones 6mm polyp no acute surgical intervention planned trend labs neck wounds being cared for sacral wound declining despite best efforts she has been receiving adequate nutritional supplementation and good wound care but inevitable decline unfortunately prognosis guarded DAILY ESTIMATED NEEDS: Needs based on Critical care, sepsis, wound 60kg adj 22-30 kcals/kg [id number] total kcals 1.25-2 g protein/kg 75-120 g total protein Fluid per MD, on lasix NUTRITION DIAGNOSIS: * Swallowing difficulty r/t respiratory status as evidenced by pt is vent dep via trach and PEG dep. * Increased kcal and pro needs r/t wound healing and sepsis as evidenced by pt w/ sacral and R heel wounds, febrile (Tmax 101.5). CURRENT TF: Jevity 1.2 @50 ml/hr x16 hrs ENTERAL NUTRITION RECOMMENDATIONS: Glucerna 1.2 @65ml/hr x18 hrs + Prosource x1 daily to provide 1170ml, 1404 kcal, 70g pro + 11g pro, 942 free H2O - REC TF CHANGE AND INCREASE TO BETTER MEET EST NEEDS - TF TO BE HELD FOR ONE HR BEFORE AND AFTER DILANTIN MEDS - START @20ML/HR, ADVANCE TOLERATED 15ML/HR Q4-6 HRS TO GOAL - FLUSH PER , HOB OVRE 30 DEGREES ADDITIONAL RECOMMENDATIONS: 1) CALIBRATED BED SCALE W/ ADDED P200 MATTRESS + PUMP 2) ON LASIX, MONITOR LYTES AND HYDRATION STATUS DAILY 3) TF TO RUN A MAX OF 18 HRS/DAY W/ DILANTIN TID PER PHARMACY 4) REC TF CHANGE TO CARB CONTROL FORMULA 5) WOUND CARE: ADD CHAYITO BID + VIT C 250MG DAILY (5) Fever Assessment & Plan: CT A/P with findings Impression: No definite acute process Diverticulosis. No evidence of diverticulitis Extensive edema of the subcutaneous fat. 2 cm focal fluid collection/edema seen within the incision Moderate amount retained dense stool. Correlate with any clinical history of constipation Hiatal hernia. Gastrostomy Left renal parapelvic cysts Apparent prior hysterectomy (6) Decubitus skin ulcer Assessment & Plan: Pt presented on admission with full thickness sacral pressure injury.Base of wound is 20% necrotic , 80% slough. borders are macerated . Mild odor noted. (L)8.4cm x (W) 6.5cm. Periwound skin tone is darker without erythema,induration or elevation in skin temp. Both heels are non -blanchable and both are fluctuant when palpated. neck wounds still declining because of trach dependance, edema, and location as well as patients contractures Tx.Plan: Clean wound with saline. Apply Therahoney. Aply Moisture Barrier paste periwound. Cover with Optifoam drsg. Change every 3 days and prn. Apply Cavilon Skin Barrier to both heels. Cover each heel with Optifoam drsg. Change every 7 days and prn. wash neck wounds daily, apply skin protectant, therahoney, gauze and foam dressing daily APM/DEIRDRE mattress overlay. Reposition at least every 2hours or as tolerated. Off-load heels with pillow. will follow with recs thank you Additional Comments US abd ordered cont abx as per ID appreciate ENT Preet Rivera Dec 08, 2018 10:23
[2018-12-08] MEDS ORDERED: NS 275ml ONE (10:25)
[2018-12-08] MEDS ORDERED: Tubing IV Blood Pump IV ONE (10:25)
[2018-12-08] MEDS ORDERED: Tubing IV Secondary IV ONE (10:25)
--- NOTE | 2018-12-08 10:27 | Diagnostic Imaging Report ---
Indication: Increased liver function tests Technique: Grayscale and duplex Doppler imaging of the abdomen performed. Comparison: None Findings: There are gallstones identified. No gallbladder wall thickening identified. The liver is unremarkable. Gallbladder is unremarkable. CBD is 3 mm. No gallstones identified. No biliary ductal dilatation seen. The kidneys are echogenic. There is no significant hydronephrosis demonstrated. There may be slight fullness of the left collecting system at the level of the kidney. The spleen is normal size. Pancreas and aorta are grossly unremarkable as visualized. IMPRESSION: Cholelithiasis. Suspected medical renal disease. Correlate clinically. Some limitations as above.
--- NOTE | 2018-12-08 10:59 | General Progress Note ---
Assessment/Plan Problem List: (1) Gram-negative pneumonia ICD Codes: J15.6 - Pneumonia due to other Gram-negative bacteria SNOMED: 194331583 (2) MRSA (methicillin resistant staphylococcus aureus) pneumonia ICD Codes: J15.212 - Pneumonia due to Methicillin resistant Staphylococcus aureus SNOMED: 383477056159263 (3) Fever ICD Codes: R50.9 - Fever, unspecified SNOMED: 378197573 (4) UTI (urinary tract infection) ICD Codes: N39.0 - Urinary tract infection, site not specified SNOMED: 51635718 (5) Tracheostomy dependence ICD Codes: Z93.0 - Tracheostomy status SNOMED: 824807906 (6) Ventilator dependence ICD Codes: Z99.11 - Dependence on respirator [ventilator] status SNOMED: 836428979 (7) Protein calorie malnutrition ICD Codes: E46 - Unspecified protein-calorie malnutrition SNOMED: 939316071 (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 SNOMED: 42864492 (9) Drug rash ICD Codes: L27.0 - Generalized skin eruption due to drugs and medicaments taken internally SNOMED: 24434619 (10) Line sepsis ICD Codes: T85.79XA - Infection and inflammatory reaction due to other internal prosthetic devices, implants and grafts, initial encounter; A41.9 - Sepsis, unspecified organism SNOMED: 99041554, 329373859 (11) Bacteremia ICD Codes: R78.81 - Bacteremia SNOMED: 5145755 (12) Hyponatremia ICD Codes: E87.1 - Hypo-osmolality and hyponatremia SNOMED: 19835717 (13) Sepsis ICD Codes: A41.9 - Sepsis, unspecified organism SNOMED: 31348286 (14) Seizure disorder ICD Codes: G40.909 - Epilepsy, unspecified, not intractable, without status epilepticus SNOMED: 106348734 (15) Diabetes ICD Codes: E11.9 - Type 2 diabetes mellitus without complications SNOMED: 11255637 (16) Colon adenocarcinoma ICD Codes: C18.9 - Malignant neoplasm of colon, unspecified SNOMED: 925610600 (17) Anoxic brain damage ICD Codes: G93.1 - Anoxic brain damage, not elsewhere classified SNOMED: 261779267 (18) Decubitus skin ulcer ICD Codes: L89.90 - Pressure ulcer of unspecified site, unspecified stage SNOMED: 374773114 Status: stable Assessment/Plan: 78-year-old female who is trach dependent who was brought in by [facility] for [facility] and found to have UTI and bacteremia. prolonged hospital course, multiple courses of antibiotics now with new HCAP. #new HCAP, aspiration pna risk, chest x-ray worse, leukocytosis, sepsis, hx wounds and surgery management, hx fevers, hx line infection, hx gram neg multi drug resistant pna, hx uti, s/p fungemia treatment - start antibiotics - polymyxin, Bactrim, vancomycin, flagyl per ID - recheck cultures, labs and f/u chest x-ray. wbc rising. urine with gram negative bacilli, blood cultures negative to date. sputum culture pending. -will d/w Dr. Goodwin #hyponatremia, hypotonic. Intravascularly depleted vs SIADH. Improving. Continue lasix 40mg BID. Nephrology consult Dr. Sommers # Transaminitis - worsening, meds vs passive congestion. improving - trend lft's - GI consult, appreciate recs - ab us: reviewed - hep panel negative #Elevated troponin secondary to sepsis versus ACS Cardiology consult, appreciate recs Medications per cardiology #Microcytic anemia- mixed anemia of chronic inflammation and iron deficiency. Start ferrous sulfate TID , transfused 1 uprbc 11/27. and another unit prbc today 12/05. #Hypertension- improved Continue current medications, hydralazine as needed hypertension. Amlodipine dose reduced due to borderline BP #Vent dependent Pulmonary consult, appreciate recs Vent management per pulmonary #Hypokalemia, hypophosphatemia, hypomagnesemia Replace, continue to monitor # Chronic tongue wound Supportive care On examination the patient has a sharp lower incisor present that is likely the culprit for the tongue laceration when she was intubated in the prior hospitalization at [facility] OMFS consultation Dr. Benavides completed ( no note left ) and I spoke with him over the phone after the visit. He does not recommend any surgery. ONLY bite block MOLT if available to decompress the tongue and get the remainder teeth out of the tongue way. Keep moisture in the lips and tongue. ENT consult difficult to obtain- pending # History of mood disorder Seen by psychiatry and on Depakote. Level was checked # Seizure history - Discussed with Dr. Eric who knew the patient from [facility] and confirmed that she did have seizure activity and was on multiple AED regimen. - Will continue Depakote ( 28 level ) and (Phenytoin 4.3 ) - no active seizure activity at this time. Keep current dose. - Both Dr. Eric and Mariana not available to come to [facility] for consult and not acute need at this time. #Diabetes Mellitus, controlled - glucose noted in the 90-110's - Decreased Levemir to 4 units q 12 hours # Disposition - SNF when cleared by ID. Full code I discussed goals of care and current condition with daughter at bedside again. She wants mom to be transferred to [facility]. I spent 15 minutes at bedside discussing goals of care with daughter. prognosis guarded timing of this note may not reflect time of encounter. I spent 40 minutes on this encounter. Great than 50 percent spent of care planning. Subjective Date patient seen: Dec 08, 2018 ROS Limited/Unobtainable: Yes Allergies: Coded Allergies: Crayfish (Unverified Allergy, Unknown, 11/11/18) Uncoded Allergies: Crawfish (Allergy, Unknown, 11/09/18) Subjective obtunded on vent, afebrile however developed new HCAP and UTI wbc rising Objective Last 24 Hour Vital Signs Date Time Temp Pulse Resp B/P (MAP) Pulse Ox O2 Delivery O2 Flow Rate FiO2 12/08/18 10:30 86 23 30 12/08/18 09:19 90 26 99 Mechanical Ventilator 30 91 24 30 12/08/18 08:43 91 101/51 12/08/18 08:00 30 12/08/18 08:00 90 12/08/18 08:00 Mechanical Ventilator 12/08/18 08:00 98.7 91 18 101/51 (68) 100 12/08/18 06:53 90 26 99 Mechanical Ventilator 30 91 24 30 12/08/18 05:01 93 137/67 12/08/18 04:50 99 24 30 12/08/18 04:00 30 12/08/18 04:00 98.1 93 18 137/67 (90) 100 12/08/18 04:00 Mechanical Ventilator 12/08/18 04:00 98 12/08/18 03:00 82 19 30 12/08/18 01:09 90 20 100 Mechanical Ventilator 30 93 24 30 12/08/18 00:00 30 12/08/18 00:00 Mechanical Ventilator 12/08/18 00:00 98.3 92 21 124/68 (86) 96 12/08/18 00:00 88 12/07/18 23:28 95 26 30 12/07/18 21:03 92 118/65 12/07/18 21:00 96 26 30 12/07/18 20:00 96 12/07/18 20:00 98.7 92 16 118/65 (82) 96 12/07/18 20:00 Mechanical Ventilator 12/07/18 20:00 30 12/07/18 19:18 98 26 100 Mechanical Ventilator 30 98 24 30 12/07/18 16:45 95 27 30 12/07/18 16:00 88 12/07/18 16:00 Mechanical Ventilator 12/07/18 16:00 30 12/07/18 15:51 98.4 89 20 116/67 (83) 100 12/07/18 15:06 90 23 30 12/07/18 13:33 95 24 100 12/07/18 13:30 90 119/66 12/07/18 13:23 90 25 Mechanical Ventilator 30 30 12/07/18 12:00 30 12/07/18 12:00 98.2 95 20 119/66 (83) 100 12/07/18 12:00 Mechanical Ventilator 12/07/18 11:28 93 12/07/18 11:19 96 25 30 Intake and Output 12/07/18 12/08/18 19:00 07:00 Intake Total 455 ml 1437.416 ml Output Total 1650 ml 2325 ml Balance -1195 ml -887.584 ml IV Total 917.416 ml Tube Feeding 455 ml 520 ml Output Urine Total 1650 ml 2325 ml # Bowel Movements 1 Laboratory Tests 12/08/18 07:40: White Blood Count 16.7H, Red Blood Count 3.03L, Hemoglobin 8.5L, Hematocrit 23.9L, Mean Corpuscular Volume 79L, Mean Corpuscular Hemoglobin 27.9, Mean Corpuscular Hemoglobin Concent 35.4, Red Cell Distribution Width 17.3H, Platelet Count 231, Mean Platelet Volume 6.8, Neutrophils (%) (Auto) 79.1H, Lymphocytes (%) (Auto) 4.6L, Monocytes (%) (Auto) 14.4H, Eosinophils (%) (Auto) 0.9, Basophils (%) (Auto) 0.9, Sodium Level 135L, Potassium Level 4.3, Chloride Level 100, Carbon Dioxide Level 29, Anion Gap 6, Blood Urea Nitrogen 31H, Creatinine 0.8, Estimat Glomerular Filtration Rate , Glucose Level 77, Calcium Level 8.2L, Total Bilirubin 0.5, Aspartate Amino Transf (AST/SGOT) 34, Alanine Aminotransferase (ALT/SGPT) 31, Alkaline Phosphatase 516H, Total Protein 5.4L, Albumin 1.3L, Globulin 4.1, Albumin/Globulin Ratio 0.3L, Vancomycin Level Trough 41.9H Height (Feet): 5 Height (Inches): 8.00 Weight (Pounds): 244 Objective General Appearance: no apparent distress, other - unresponsive on vent EENT: PERRL/EOMI, other - enlarged tongue protruding, lower lip severely swollen Neck: supple Cardiovascular: normal rate, regular rhythm Respiratory/Chest: lungs clear Abdomen: soft Neurologic: unresponsive Skin: Morbilliform rash to bilateral upper extremities and thighs Neftaly Walters M.D. Dec 08, 2018 10:59
[2018-12-08 11:57] VITALS: BP 102/52
--- NOTE | 2018-12-08 12:10 | NUR ---
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 98.7 HR 91 RR 26 B/P 101/81 WBC 16.7 ALK PHOS 816 NA 133 ABD US= CHOLELITHIASIS IS: VANCO IV POLYMYXIN IV BACTRIM GT FLAGYL GT LASIX IV LOVENOX SUBC STEP DOWN STATUS
[2018-12-08] MEDS: metroNIDAZOLE 500mg tab GT SCH ×2 (14:33→21:01)
--- NOTE | 2018-12-08 14:40 | Pulmonology Progress Note ---
Assessment/Plan Problems: (1) Ventilator dependence (2) Tracheostomy dependence (3) UTI (urinary tract infection) (4) Fever (5) Anoxic brain damage (6) Tongue abnormality (7) Seizure disorder (8) Colon adenocarcinoma (9) HTN (hypertension) (10) Sepsis (11) Diabetes (12) Abnormal LFTs (13) Protein calorie malnutrition (14) Gastrostomy in place (15) prison resident (16) Decubitus skin ulcer Assessment/Plan Continue ventilatory support/settings reviewed Titrate down FiO2 to keep SaO2 > 90% Optimize pulmonary hygiene/mobilize as tolerated RTC and PRN HHN's Abx per ID, F/U Cx's F/U cards recs Monitor volumes and renal function, diuresis as able DVT Px: LMWH Per record seen by OMFS and no note written, no intervention recommended, no ENT available to see FC, continue to discuss GOC --> consider family meeting Wound care Subjective Allergies: Coded Allergies: Crayfish (Unverified Allergy, Unknown, 11/11/18) Uncoded Allergies: Crawfish (Allergy, Unknown, 11/09/18) Subjective AFVSS stable on vent no sig secretions no distress Objective Last 24 Hour Vital Signs Date Time Temp Pulse Resp B/P (MAP) Pulse Ox O2 Delivery O2 Flow Rate FiO2 12/08/18 14:33 85 102/52 12/08/18 12:35 85 25 Mechanical Ventilator 30 30 12/08/18 12:00 30 12/08/18 12:00 Mechanical Ventilator 12/08/18 11:57 98.4 85 18 102/52 (69) 100 12/08/18 10:30 86 23 30 12/08/18 09:19 90 26 99 Mechanical Ventilator 30 91 24 30 12/08/18 08:43 91 101/51 12/08/18 08:00 30 12/08/18 08:00 90 12/08/18 08:00 Mechanical Ventilator 12/08/18 08:00 98.7 91 18 101/51 (68) 100 12/08/18 06:53 90 26 99 Mechanical Ventilator 30 91 24 30 12/08/18 05:01 93 137/67 12/08/18 04:50 99 24 30 12/08/18 04:00 30 12/08/18 04:00 98.1 93 18 137/67 (90) 100 12/08/18 04:00 Mechanical Ventilator 12/08/18 04:00 98 12/08/18 03:00 82 19 30 12/08/18 01:09 90 20 100 Mechanical Ventilator 30 93 24 30 12/08/18 00:00 30 12/08/18 00:00 Mechanical Ventilator 12/08/18 00:00 98.3 92 21 124/68 (86) 96 12/08/18 00:00 88 12/07/18 23:28 95 26 30 12/07/18 21:03 92 118/65 12/07/18 21:00 96 26 30 12/07/18 20:00 96 12/07/18 20:00 98.7 92 16 118/65 (82) 96 12/07/18 20:00 Mechanical Ventilator 12/07/18 20:00 30 12/07/18 19:18 98 26 100 Mechanical Ventilator 30 98 24 30 12/07/18 16:45 95 27 30 12/07/18 16:00 88 12/07/18 16:00 Mechanical Ventilator 12/07/18 16:00 30 12/07/18 15:51 98.4 89 20 116/67 (83) 100 12/07/18 15:06 90 23 30 Intake and Output 12/07/18 12/08/18 19:00 07:00 Intake Total 455 ml 1437.416 ml Output Total 1650 ml 2325 ml Balance -1195 ml -887.584 ml IV Total 917.416 ml Tube Feeding 455 ml 520 ml Output Urine Total 1650 ml 2325 ml # Bowel Movements 1 General Appearance: no acute distress, cachetic HEENT: normocephalic, atraumatic, anicteric, other - macroglossia Respiratory/Chest: crackles/rales Cardiovascular: normal peripheral pulses, normal rate, regular rhythm Abdomen: normal bowel sounds, soft, non tender, no organomegaly, non distended , no mass Extremities: no cyanosis, no clubbing, no edema Microbiology Date/Time Source Procedure Growth Status 12/06/18 16:15 Blood Blood Culture - Preliminary NO GROWTH AFTER 24 HOURS Resulted 12/06/18 16:00 Blood Blood Culture - Preliminary NO GROWTH AFTER 24 HOURS Resulted 12/06/18 17:45 Sputum Induced Gram Stain - Final Resulted 12/06/18 17:45 Sputum Induced Sputum Culture Pending Resulted 12/06/18 17:45 Indwelling Cath Urine Culture - Preliminary Gram Negative Bacillus 1 Resulted Laboratory Tests 12/08/18 07:40: White Blood Count 16.7H, Red Blood Count 3.03L, Hemoglobin 8.5L, Hematocrit 23.9L, Mean Corpuscular Volume 79L, Mean Corpuscular Hemoglobin 27.9, Mean Corpuscular Hemoglobin Concent 35.4, Red Cell Distribution Width 17.3H, Platelet Count 231, Mean Platelet Volume 6.8, Neutrophils (%) (Auto) 79.1H, Lymphocytes (%) (Auto) 4.6L, Monocytes (%) (Auto) 14.4H, Eosinophils (%) (Auto) 0.9, Basophils (%) (Auto) 0.9, Sodium Level 135L, Potassium Level 4.3, Chloride Level 100, Carbon Dioxide Level 29, Anion Gap 6, Blood Urea Nitrogen 31H, Creatinine 0.8, Estimat Glomerular Filtration Rate , Glucose Level 77, Calcium Level 8.2L, Total Bilirubin 0.5, Aspartate Amino Transf (AST/SGOT) 34, Alanine Aminotransferase (ALT/SGPT) 31, Alkaline Phosphatase 516H, Total Protein 5.4L, Albumin 1.3L, Globulin 4.1, Albumin/Globulin Ratio 0.3L, Vancomycin Level Trough 41.9H Current Medications Medications (Trade) Dose Ordered Sig/Lupe Route PRN Reason Start Time Stop Time Status Last Admin Dose Admin Acetaminophen (Tylenol) 650 mg Q4H PRN GT Mild Pain/Temp > 100.5 11/09/18 05:00 01/07/19 04:59 11/24/18 21:50 Albuterol/ Ipratropium (Albuterol/ Ipratropium) 3 ml Q4H PRN HHN Shortness of Breath 12/05/18 19:00 12/13/18 18:59 Albuterol/ Ipratropium (Albuterol/ Ipratropium) 3 ml Q6HRT HHN 12/05/18 19:00 12/13/18 18:59 12/08/18 12:35 Amlodipine Besylate (Norvasc) 5 mg DAILY GT 12/05/18 09:00 01/07/19 08:59 12/08/18 08:43 Bisacodyl (Dulcolax) 10 mg DAILY PRN RECTAL Constipation 11/09/18 05:00 01/07/19 04:59 Chlorhexidine Gluconate (Corazon-Hex 2%) 1 applic DAILY@2000 TOPIC 11/12/18 20:00 01/07/19 19:59 12/07/18 20:06 Dextrose (Dextrose 50%) 25 ml Q30M PRN IV Hypoglycemia 11/09/18 04:45 01/07/19 04:44 Dextrose (Dextrose 50%) 50 ml Q30M PRN IV Hypoglycemia 11/09/18 04:45 01/07/19 04:44 11/09/18 09:09 Enoxaparin Sodium (Lovenox) 40 mg DAILY SUBQ 11/09/18 09:00 01/07/19 08:59 12/08/18 08:46 Famotidine (Pepcid) 20 mg EVERY 12 HOURS GT 11/09/18 21:00 01/07/19 20:59 12/08/18 08:38 Furosemide (Lasix) 40 mg EVERY 12 HOURS IV 12/04/18 21:00 01/03/19 20:59 12/08/18 08:37 Insulin Aspart (NovoLOG) Q6HR SUBQ 11/09/18 06:00 01/07/19 05:59 12/06/18 11:56 Insulin Detemir (Levemir) 4 units EVERY 12 HOURS SUBQ 11/16/18 21:00 01/07/19 20:59 12/08/18 08:51 Labetalol HCl (Normodyne) 200 mg Q8HR GT 11/09/18 06:00 01/07/19 05:59 12/08/18 14:33 Lactulose (Cephulac) 10 gm THREE TIMES A DAY GT 11/27/18 18:00 01/07/19 17:59 12/08/18 14:33 Levetiracetam (Keppra) 1,500 mg Q12HR GT 11/09/18 09:00 01/07/19 08:59 12/08/18 08:37 Magnesium Hydroxide (Mom) 30 ml DAILY PRN GT Constipation 11/09/18 05:00 01/07/19 04:59 Metronidazole (Flagyl) 500 mg EVERY 8 HOURS GT 12/08/18 14:00 12/13/18 21:59 12/08/18 14:33 Ondansetron HCl (Zofran) 4 mg Q6H PRN GT Nausea & Vomiting 11/09/18 05:00 01/07/19 04:59 Phenobarbital (PHENobarbital) 60 mg BID GT 11/09/18 09:00 01/07/19 08:59 12/08/18 08:36 Phenytoin (Dilantin) 100 mg Q8HR GT 11/09/18 06:00 01/07/19 05:59 12/08/18 14:33 Polyethylene Glycol (Miralax) 17 gm DAILYPRN PRN GT Constipation 11/14/18 10:30 01/07/19 10:29 Polymyxin B Sulfate 343329 units/Sodium Chloride 550 ml @ 550 mls/hr EVERY 12 HOURS IVPB 12/06/18 17:30 12/13/18 17:29 12/08/18 08:38 Sennosides (Senokot) 8.6 mg EVERY 12 HOURS GT 11/09/18 21:00 01/07/19 20:59 12/08/18 08:39 Trimethoprim/ Sulfamethoxazole (Bactrim-DS) 1 tab Q12HR ORAL 12/06/18 21:00 12/13/18 20:59 12/08/18 08:38 Vancomycin HCl (Vanco rx to dose) 1 ea DAILY PRN MISC Per rx protocol 12/06/18 15:15 01/05/19 15:14 Balbir Dejesus MD Dec 08, 2018 14:40
[2018-12-08 16:00] VITALS: BP 119/57
--- NOTE | 2018-12-08 18:06 | Infectious Diseases Prog Note ---
Assessment/Plan Assessment/Plan ASSESSMENT AND PLAN: 1. new HCAP, aspiration pna risk, chest x-ray worse, gram neg uti, leukocytosis , sepsis, hx wounds and surgery management, hx fevers, hx multi drug resistant pna, ? line infection, fungemia risk - polymyxin, bactrim, flagyl, micafungin started, discontinue vancomycin - f/u on labs, cultures and chest x-ray - may need to change line - d/w RN - please see multiple orders 2. Trach-vent respiratory failure. 3. Dysphagia, G-tube. 4. Anemia. 5. Diabetes. 6. Hypertension. 7. Large tongue. 8. Anoxic brain injury. 9. Weakness. 10. Poorly responsive. 11. History of seizures. 12. History of colon adenocarcinoma. 13. Skin care protocol. 14. Allergy to crawfish. 15. Social history negative. 16. Family history noncontributory. 17. MAR was noted. 18. Case was discussed with RN. 19. Continue treatment per primary consultants. 20. Orders were ordered, entered, and noted. 21. Continue wound care protocol. 22. Continue blood sugar and blood pressure treatment per primary consultants for diabetes and hypertension. 23. vre colonization and isolation Subjective Constitutional: Reports: fatigue, other - on vent; Denies: fever HEENT: Reports: congestion Respiratory: Reports: shortness of breath Cardiovascular: Reports: other - no pressors Gastrointestinal/Abdominal: Denies: nausea, vomiting, diarrhea Neurologic: Reports: other - poorly responsive, no obvious sz Psychiatric: Reports: other - NA Endocrine: Reports: other - NA Hematologic: Denies: bleeding Musculoskeletal: Reports: other - NA Allergies: Coded Allergies: Crayfish (Unverified Allergy, Unknown, 11/11/18) Uncoded Allergies: Crawfish (Allergy, Unknown, 11/09/18) Objective Vital Signs Last 24 Hour Vital Signs Date Time Temp Pulse Resp B/P (MAP) Pulse Ox O2 Delivery O2 Flow Rate FiO2 12/08/18 16:59 81 24 30 12/08/18 16:00 Mechanical Ventilator 12/08/18 16:00 30 12/08/18 16:00 98.0 82 18 119/57 (77) 100 12/08/18 14:47 89 23 30 12/08/18 14:33 85 102/52 12/08/18 12:45 85 21 100 Mechanical Ventilator 30 12/08/18 12:35 85 25 Mechanical Ventilator 30 30 12/08/18 12:00 30 12/08/18 12:00 Mechanical Ventilator 12/08/18 11:57 98.4 85 18 102/52 (69) 100 12/08/18 11:42 86 12/08/18 10:30 86 23 30 12/08/18 09:19 90 26 99 Mechanical Ventilator 30 91 24 30 12/08/18 08:43 91 101/51 12/08/18 08:00 30 12/08/18 08:00 90 12/08/18 08:00 Mechanical Ventilator 12/08/18 08:00 98.7 91 18 101/51 (68) 100 12/08/18 06:53 90 26 99 Mechanical Ventilator 30 91 24 30 12/08/18 05:01 93 137/67 12/08/18 04:50 99 24 30 12/08/18 04:00 30 12/08/18 04:00 98.1 93 18 137/67 (90) 100 12/08/18 04:00 Mechanical Ventilator 12/08/18 04:00 98 12/08/18 03:00 82 19 30 12/08/18 01:09 90 20 100 Mechanical Ventilator 30 93 24 30 12/08/18 00:00 30 12/08/18 00:00 Mechanical Ventilator 12/08/18 00:00 98.3 92 21 124/68 (86) 96 12/08/18 00:00 88 12/07/18 23:28 95 26 30 12/07/18 21:03 92 118/65 12/07/18 21:00 96 26 30 12/07/18 20:00 96 12/07/18 20:00 98.7 92 16 118/65 (82) 96 12/07/18 20:00 Mechanical Ventilator 12/07/18 20:00 30 12/07/18 19:18 98 26 100 Mechanical Ventilator 30 98 24 30 Height (Feet): 5 Height (Inches): 8.00 Weight (Pounds): 241 General Appearance: other - + trach and vent HEENT: normocephalic, atraumatic, anicteric Respiratory/Chest: crackles/rales, rhonchi - bilaterally Cardiovascular: normal rate, regular rhythm, no gallop/murmur, no JVD Abdomen: normal bowel sounds, soft, non tender, no organomegaly, non distended Genitourinary: other - + nava - urine clear Extremities: no cyanosis Skin: rash - rash stable, no new rash Neurologic/Psychiatric: motor weakness, other - lethargic and poorly responsive Lymphatic: no neck adenopathy Musculoskeletal: no effusion Objective 11/11/18 - chest x-ray - IMPRESSION: 1. Hypoventilatory lungs. Elevated right hemidiaphragm. Slightly improved vascular congestion. Similar bibasilar lung atelectasis and airspace disease. 2. Query right pleural effusion. 2-D echo - no vegetations mentioned, report noted sacral x-ray - no osteo mentioned, report noted 11/14/18 - Technique: One view of the chest Comparison: November 13, 2018 post PICC radiograph Findings: Bilateral interstitial and alveolar edema versus infiltrates appear slightly worse. There is increasing obscuration of left hemidiaphragm, may reflect increasing pleural fluid as well. The heart remains enlarged. Previously demonstrated left arm PICC has been removed. Stable right arm PICC. Impression: Slightly worsening bilateral interstitial and airspace infiltrates versus edema, over one day 11/16/18 - chest x-ray Procedure: XRAY Chest 1v Indication: Dyspnea Technique: One view of the chest Comparison: November 14, 2018 Findings: Bilateral interstitial edema persists. Tracheostomy, right arm PICC remain. The heart is enlarged. Impression: Bilateral interstitial edema, unchanged over [address] abdomen and pelvis: Impression: No definite acute process Diverticulosis. No evidence of diverticulitis Extensive edema of the subcutaneous fat. 2 cm focal fluid collection/edema seen within the incision Moderate amount retained dense stool. Correlate with any clinical history of constipation Hiatal hernia. Gastrostomy Left renal parapelvic cysts Apparent prior hysterectomy Chest x-ray - 11/23/18 - Technique: One view of the chest Comparison: 11/20/2018 Findings: Less optimal inspiration currently, with resultant crowding of the bronchovascular markings. Interstitial congestion is probably not significantly changed, allowing for differences in exposure technique. Tracheostomy remains. Right arm PICC remains. Impression: Unchanged, over 3 days, findings as above. Chest x-ray - 11/26/18 - IMPRESSION: 1. Rotated film. Increased hazy opacity at the left lung and left retrocardiac opacity. 2. Decreased left pleural effusion. 3. Elevated right hemidiaphragm with probable pleural effusion and consolidation, similar. Chest x-ray - 11/30/18 - Findings: Pulmonary edema again demonstrated. PICC line is stable as well as tracheostomy. Heart is enlarged. Basilar atelectasis suspected. The diaphragm is poorly seen. Underlying parenchymal infiltrate or other disease and/or pleural effusion may be present. IMPRESSION: Pulmonary edema Chest x-ray - 12/06/18 - IMPRESSION: Significant worsening of aeration with increased airspace opacities in the right , involving nearly the entire right lung. Although findings may be related to asymmetric pulmonary edema the possibility of pneumonia has to be considered. Clinical correlation and follow-up recommended. Likely layering right-sided pleural effusion. Tracheostomy tube and PICC line remain in place. Microbiology Date/Time Source Procedure Growth Status 12/06/18 16:15 Blood Blood Culture - Preliminary NO GROWTH AFTER 24 HOURS Resulted 12/06/18 16:00 Blood Blood Culture - Preliminary NO GROWTH AFTER 24 HOURS Resulted 12/06/18 17:45 Sputum Induced Gram Stain - Final Resulted 12/06/18 17:45 Sputum Induced Sputum Culture Pending Resulted 12/06/18 17:45 Indwelling Cath Urine Culture - Preliminary Gram Negative Bacillus 1 Resulted Laboratory Tests Test 12/08/18 07:40 White Blood Count 16.7 K/UL (4.8-10.8) H Red Blood Count 3.03 M/UL (4.20-5.40) L Hemoglobin 8.5 G/DL (12.0-16.0) L Hematocrit 23.9 % (37.0-47.0) L Mean Corpuscular Volume 79 FL (80-99) L Mean Corpuscular Hemoglobin 27.9 PG (27.0-31.0) Mean Corpuscular Hemoglobin Concent 35.4 G/DL (32.0-36.0) Red Cell Distribution Width 17.3 % (11.6-14.8) H Platelet Count 231 K/UL (150-450) Mean Platelet Volume 6.8 FL (6.5-10.1) Neutrophils (%) (Auto) 79.1 % (45.0-75.0) H Lymphocytes (%) (Auto) 4.6 % (20.0-45.0) L Monocytes (%) (Auto) 14.4 % (1.0-10.0) H Eosinophils (%) (Auto) 0.9 % (0.0-3.0) Basophils (%) (Auto) 0.9 % (0.0-2.0) Sodium Level 135 MMOL/L (136-145) L Potassium Level 4.3 MMOL/L (3.5-5.1) Chloride Level 100 MMOL/L (98-107) Carbon Dioxide Level 29 MMOL/L (21-32) Anion Gap 6 mmol/L (5-15) Blood Urea Nitrogen 31 mg/dL (7-18) H Creatinine 0.8 MG/DL (0.55-1.30) Estimat Glomerular Filtration Rate mL/min (>60) Glucose Level 77 MG/DL (74-106) Calcium Level 8.2 MG/DL (8.5-10.1) L Total Bilirubin 0.5 MG/DL (0.2-1.0) Aspartate Amino Transf (AST/SGOT) 34 U/L (15-37) Alanine Aminotransferase (ALT/SGPT) 31 U/L (12-78) Alkaline Phosphatase 516 U/L (46-116) H Total Protein 5.4 G/DL (6.4-8.2) L Albumin 1.3 G/DL (3.4-5.0) L Globulin 4.1 g/dL Albumin/Globulin Ratio 0.3 (1.0-2.7) L Vancomycin Level Trough 41.9 ug/mL (5.0-12.0) H Current Medications Medications (Trade) Dose Ordered Sig/Lupe Route PRN Reason Start Time Stop Time Status Last Admin Dose Admin Acetaminophen (Tylenol) 650 mg Q4H PRN GT Mild Pain/Temp > 100.5 11/09/18 05:00 01/07/19 04:59 11/24/18 21:50 Albuterol/ Ipratropium (Albuterol/ Ipratropium) 3 ml Q4H PRN HHN Shortness of Breath 12/05/18 19:00 12/13/18 18:59 Albuterol/ Ipratropium (Albuterol/ Ipratropium) 3 ml Q6HRT HHN 12/05/18 19:00 12/13/18 18:59 12/08/18 12:35 Amlodipine Besylate (Norvasc) 5 mg DAILY GT 12/05/18 09:00 01/07/19 08:59 12/08/18 08:43 Bisacodyl (Dulcolax) 10 mg DAILY PRN RECTAL Constipation 11/09/18 05:00 01/07/19 04:59 Chlorhexidine Gluconate (Corazon-Hex 2%) 1 applic DAILY@2000 TOPIC 11/12/18 20:00 01/07/19 19:59 12/07/18 20:06 Dextrose (Dextrose 50%) 25 ml Q30M PRN IV Hypoglycemia 11/09/18 04:45 01/07/19 04:44 Dextrose (Dextrose 50%) 50 ml Q30M PRN IV Hypoglycemia 11/09/18 04:45 01/07/19 04:44 11/09/18 09:09 Enoxaparin Sodium (Lovenox) 40 mg DAILY SUBQ 11/09/18 09:00 01/07/19 08:59 12/08/18 08:46 Famotidine (Pepcid) 20 mg EVERY 12 HOURS GT 11/09/18 21:00 01/07/19 20:59 12/08/18 08:38 Furosemide (Lasix) 40 mg EVERY 12 HOURS IV 12/04/18 21:00 01/03/19 20:59 12/08/18 08:37 Insulin Aspart (NovoLOG) Q6HR SUBQ 11/09/18 06:00 01/07/19 05:59 12/06/18 11:56 Insulin Detemir (Levemir) 4 units EVERY 12 HOURS SUBQ 11/16/18 21:00 01/07/19 20:59 12/08/18 08:51 Labetalol HCl (Normodyne) 200 mg Q8HR GT 11/09/18 06:00 01/07/19 05:59 12/08/18 14:33 Lactulose (Cephulac) 10 gm THREE TIMES A DAY GT 11/27/18 18:00 01/07/19 17:59 12/08/18 14:33 Levetiracetam (Keppra) 1,500 mg Q12HR GT 11/09/18 09:00 01/07/19 08:59 12/08/18 08:37 Magnesium Hydroxide (Mom) 30 ml DAILY PRN GT Constipation 11/09/18 05:00 01/07/19 04:59 Metronidazole (Flagyl) 500 mg EVERY 8 HOURS GT 12/08/18 14:00 12/13/18 21:59 12/08/18 14:33 Micafungin Sodium 100 mg/Sodium Chloride 100 ml @ 100 mls/hr DAILY@1800 IVPB 12/08/18 18:30 12/15/18 18:29 Ondansetron HCl (Zofran) 4 mg Q6H PRN GT Nausea & Vomiting 11/09/18 05:00 01/07/19 04:59 Phenobarbital (PHENobarbital) 60 mg BID GT 11/09/18 09:00 01/07/19 08:59 12/08/18 08:36 Phenytoin (Dilantin) 100 mg Q8HR GT 11/09/18 06:00 01/07/19 05:59 12/08/18 14:33 Polyethylene Glycol (Miralax) 17 gm DAILYPRN PRN GT Constipation 11/14/18 10:30 01/07/19 10:29 Polymyxin B Sulfate 482919 units/Sodium Chloride 550 ml @ 550 mls/hr EVERY 12 HOURS IVPB 12/06/18 17:30 12/13/18 17:29 12/08/18 08:38 Sennosides (Senokot) 8.6 mg EVERY 12 HOURS GT 11/09/18 21:00 01/07/19 20:59 12/08/18 08:39 Trimethoprim/ Sulfamethoxazole (Bactrim-DS) 1 tab Q12HR ORAL 12/06/18 21:00 12/13/18 20:59 12/08/18 08:38 Dasha Crews MD Dec 08, 2018 18:06
--- NOTE | 2018-12-08 18:54 | NUR ---
RESPIRATORY NOTE: Received pt on AC 14, 375VT, 30%, PEEP +5. Pt is trach-dependent w/ a cuffed, Shiley 8 tube. Pt obtunded. B/S didi. rhonchi, sxn small to moderate amounts of thick, mccauley-yellow secretions. Vent plugged into red outlet, ambubag at bedside. Pt in no apparent distress at this time. Will continue plan of care.
--- NOTE | 2018-12-08 19:05 | NUR ---
HAND-OFF: Report given to Steven Noriega RN. Patient resting in bed no respiratory distress noted during shift.
--- NOTE | 2018-12-08 19:14 | NUR ---
NURSE NOTES: Received report from Luis Olvera RN, pt. in bed obtunded, opens eyes- non-verbal, panel monitor on, no signs or symptoms of acute cardiac or respiratory distress noted, bed in lowest position and call light within easy reach, bed locked in position and side rails up x's3, pt. appears to be resting comfortably in bed- comfort measures provided,Ospina intact and draining to gravity, pt. appears to be tolerating current vent settings well- AC 14, TV 375, Fio2 @30% and peep 5- no distress noted, Side rails padded for seizure precautions- no seizure activity noted, Glucerna 1.2 running via G tube at 65cc/hr- no residual noted, pt. is clean and dry, KAITLYNN PICC intact and patent- TKO, Safety measures continued, will continue with plan of care.
[2018-12-08 20:00] VITALS: BP 126/61
[2018-12-08] MEDS: Dyna-Hex 2% Top Sol 2oz TOPIC SCH (20:09)
[2018-12-09] VITALS: BP 114/70
[2018-12-09] MEDS: Albuterol/Ipratropium 3ml neb HHN SCH ×4 (00:51→20:31)
[2018-12-09 04:00] VITALS: BP 130/69
[2018-12-09] MEDS: Magic Mouth Wash 60ml (Benadryl/Mylanta/Visc Lido) ORAL SCH ×3 (05:05→21:12)
[2018-12-09] MEDS: metroNIDAZOLE 500mg tab GT SCH ×3 (05:05→21:10)
[2018-12-09] MEDS: NovoLOG Insulin Flexpen SUBQ SCH ×4 (05:06→23:14)
[2018-12-09] MEDS: Labetalol 200mg tab GT SCH ×3 (05:06→21:11)
[2018-12-09 05:39] LABS: BASOPHILS % (AUTO) 1.3 % (0.0-2.0); EOSINOPHILS % (AUTO) 0.8 % (0.0-3.0); HEMOGLOBIN 8.7 G/DL (12.0-16.0); LYMPHOCYTES % (AUTO) 5.6 % (20.0-45.0); MEAN CORPUSCULAR VOLUME 81 FL (80-99); MONOCYTES % (AUTO) 14.1 % (1.0-10.0); NEUTROPHILS % (AUTO) 78.1 % (45.0-75.0); PLATELET COUNT 231 K/UL (150-450); RED BLOOD COUNT 3.22 M/UL (4.20-5.40); RED CELL DISTRIBUTION WIDTH 17.2 % (11.6-14.8); WHITE BLOOD COUNT 15.3 K/UL (4.8-10.8)
[2018-12-09] MEDS: Phenytoin Susp 100mg/4ml GT SCH ×3 (06:00→21:11)
[2018-12-09 06:17] LABS: ALANINE AMINOTRANSFERASE 32 U/L (12-78); ALBUMIN 1.3 G/DL (3.4-5.0); ALBUMIN/GLOBULIN RATIO 0.3 (1.0-2.7); ALKALINE PHOSPHATASE 442 U/L (46-116); AMYLASE 49 U/L (25-115); ANION GAP 8 mmol/L (5-15); ASPARTATE AMINO TRANSFERASE 29 U/L (15-37); BILIRUBIN,TOTAL 0.5 MG/DL (0.2-1.0); BLOOD UREA NITROGEN 31 mg/dL (7-18); CALCIUM 8.5 MG/DL (8.5-10.1); CARBON DIOXIDE 28 MMOL/L (21-32); CHLORIDE 100 MMOL/L (98-107); CREATININE 0.9 MG/DL (0.55-1.30); SODIUM 135 MMOL/L (136-145)
--- NOTE | 2018-12-09 07:08 | NUR ---
HAND-OFF: Report given to Mirella DESHPANDE, pt. remains stable and no sigs of distres noted.
--- NOTE | 2018-12-09 07:10 | NUR ---
NURSE NOTES: Received bedside report from Steven DESHPANDE. Pt. in bed, obtunded. No sign of distress[facility] with setting of AC14/VT375/FiO2 of 30%/P5. No grimacing noted. HOB elevated at all times. On GTF Glucerna 1.2 at 65cc/hr. Currently on hold due to high residual and Dilantin given at previous shift. PICC line at right upper arm with 2 lumen in placed patent/intact. F/C in placed patent/intact draining yellow colored urine. Padded side rails in placed due to seizure precaution observed. Bed in low position, locked. Call light within reach. Will cont. to monitor.
--- NOTE | 2018-12-09 07:49 | NUR ---
RESPIRATORY NOTE: received pt on current vent orders, is vent dependent with trach size shiley [address] no resp distress noted. alarms are set and audible with ambu bag at bedside. wound care nurse aware of current wounds around pt trach. no other visible wounds seen. will cont to monitor
[2018-12-09 08:00] VITALS: BP 120/60
--- NOTE | 2018-12-09 08:41 | Surgery Progress Note ---
Surgery Progress Note Subjective Additional Comments afebrile leukocytosis ESR/CRP elevated US noted appreciate ENT input Objective Last 24 Hour Vital Signs Date Time Temp Pulse Resp B/P (MAP) Pulse Ox O2 Delivery O2 Flow Rate FiO2 12/09/18 07:45 85 22 97 Mechanical Ventilator 30 91 24 30 12/09/18 05:08 89 22 30 12/09/18 05:06 83 130/69 12/09/18 04:00 97.5 83 21 130/69 (89) 98 12/09/18 04:00 30 12/09/18 04:00 Mechanical Ventilator 12/09/18 03:35 84 12/09/18 03:00 81 25 30 12/09/18 01:01 78 17 100 Mechanical Ventilator 30 12/09/18 00:51 84 23 100 Mechanical Ventilator 30 84 23 30 12/09/18 00:00 Mechanical Ventilator 12/09/18 00:00 88 12/09/18 00:00 97.5 88 23 114/70 (85) 100 12/08/18 22:39 82 23 30 12/08/18 21:32 83 24 30 12/08/18 21:01 85 126/61 12/08/18 20:00 85 12/08/18 20:00 97.5 86 23 126/61 (82) 98 12/08/18 20:00 30 12/08/18 20:00 Mechanical Ventilator 12/08/18 18:59 79 22 100 Mechanical Ventilator 30 12/08/18 18:49 83 23 100 Mechanical Ventilator 30 83 23 30 12/08/18 16:59 81 24 30 12/08/18 16:00 Mechanical Ventilator 12/08/18 16:00 83 12/08/18 16:00 30 12/08/18 16:00 98.0 82 18 119/57 (77) 100 12/08/18 14:47 89 23 30 12/08/18 14:33 85 102/52 12/08/18 12:45 85 21 100 Mechanical Ventilator 30 12/08/18 12:35 85 25 Mechanical Ventilator 30 30 12/08/18 12:00 30 12/08/18 12:00 Mechanical Ventilator 12/08/18 11:57 98.4 85 18 102/52 (69) 100 12/08/18 11:42 86 12/08/18 10:30 86 23 30 12/08/18 09:19 90 26 99 Mechanical Ventilator 30 91 24 30 12/08/18 08:43 91 101/51 I&O Intake and Output 12/08/18 12/09/18 18:59 06:59 Intake Total 1095 ml 880 ml Output Total 1950 ml 1200 ml Balance -855 ml -320 ml Intake Free Water 150 ml IV Total 550 ml Tube Feeding 585 ml 330 ml Other 360 ml Output Urine Total 1950 ml 1200 ml # Bowel Movements 1 1 Dressing: saturated Wound: other Drains: other Cardiovascular: RSR Respiratory: decreased breath sounds Abdomen: soft, present bowel sounds, non-distended Extremities: other Laboratory Tests Test 12/09/18 05:00 White Blood Count 15.3 K/UL (4.8-10.8) H Red Blood Count 3.22 M/UL (4.20-5.40) L Hemoglobin 8.7 G/DL (12.0-16.0) L Hematocrit 26.0 % (37.0-47.0) L Mean Corpuscular Volume 81 FL (80-99) Mean Corpuscular Hemoglobin 27.1 PG (27.0-31.0) Mean Corpuscular Hemoglobin Concent 33.5 G/DL (32.0-36.0) Red Cell Distribution Width 17.2 % (11.6-14.8) H Platelet Count 231 K/UL (150-450) Mean Platelet Volume 5.7 FL (6.5-10.1) L Neutrophils (%) (Auto) 78.1 % (45.0-75.0) H Lymphocytes (%) (Auto) 5.6 % (20.0-45.0) L Monocytes (%) (Auto) 14.1 % (1.0-10.0) H Eosinophils (%) (Auto) 0.8 % (0.0-3.0) Basophils (%) (Auto) 1.3 % (0.0-2.0) Erythrocyte Sedimentation Rate 123 MM/HR (0-30) H Sodium Level 135 MMOL/L (136-145) L Potassium Level 4.0 MMOL/L (3.5-5.1) Chloride Level 100 MMOL/L (98-107) Carbon Dioxide Level 28 MMOL/L (21-32) Anion Gap 8 mmol/L (5-15) Blood Urea Nitrogen 31 mg/dL (7-18) H Creatinine 0.9 MG/DL (0.55-1.30) Estimat Glomerular Filtration Rate mL/min (>60) Glucose Level 77 MG/DL (74-106) Calcium Level 8.5 MG/DL (8.5-10.1) Total Bilirubin 0.5 MG/DL (0.2-1.0) Aspartate Amino Transf (AST/SGOT) 29 U/L (15-37) Alanine Aminotransferase (ALT/SGPT) 32 U/L (12-78) Alkaline Phosphatase 442 U/L (46-116) H C-Reactive Protein, Quantitative > 70.0 mg/dL (0.00-0.90) H Total Protein 6.0 G/DL (6.4-8.2) L Albumin 1.3 G/DL (3.4-5.0) L Globulin 4.7 g/dL Albumin/Globulin Ratio 0.3 (1.0-2.7) L Amylase Level 49 U/L (25-115) Lipase 44 U/L (73-393) L Plan Problems: (1) Fever (2) Tongue abnormality Assessment & Plan: patients jaw clenched closed and tongue has been stuck for some time. tongue split from middle teeth and now in two. edema and unable to reduce keep tongue moist. apply lube jelly prn dryness. will monitor do not recommend surgical intervention for this current medical condition spoke with family. ENT. OMFS no intervention stable still overall (3) Tracheostomy dependence (4) Sepsis Assessment & Plan: gb no stones 6mm polyp no acute surgical intervention planned trend labs neck wounds being cared for sacral wound declining despite best efforts she has been receiving adequate nutritional supplementation and good wound care but inevitable decline unfortunately prognosis guarded DAILY ESTIMATED NEEDS: Needs based on Critical care, sepsis, wound 60kg adj 22-30 kcals/kg 9027-2290 total kcals 1.25-2 g protein/kg 75-120 g total protein Fluid per MD, on lasix NUTRITION DIAGNOSIS: * Swallowing difficulty r/t respiratory status as evidenced by pt is vent dep via trach and PEG dep. * Increased kcal and pro needs r/t wound healing and sepsis as evidenced by pt w/ sacral and R heel wounds, febrile (Tmax 101.5). CURRENT TF: Jevity 1.2 @50 ml/hr x16 hrs ENTERAL NUTRITION RECOMMENDATIONS: Glucerna 1.2 @65ml/hr x18 hrs + Prosource x1 daily to provide 1170ml, 1404 kcal, 70g pro + 11g pro, 942 free H2O - REC TF CHANGE AND INCREASE TO BETTER MEET EST NEEDS - TF TO BE HELD FOR ONE HR BEFORE AND AFTER DILANTIN MEDS - START @20ML/HR, ADVANCE TOLERATED 15ML/HR Q4-6 HRS TO GOAL - FLUSH PER , HOB OVRE 30 DEGREES ADDITIONAL RECOMMENDATIONS: 1) CALIBRATED BED SCALE W/ ADDED P200 MATTRESS + PUMP 2) ON LASIX, MONITOR LYTES AND HYDRATION STATUS DAILY 3) TF TO RUN A MAX OF 18 HRS/DAY W/ DILANTIN TID PER PHARMACY 4) REC TF CHANGE TO CARB CONTROL FORMULA 5) WOUND CARE: ADD CHAYITO BID + VIT C 250MG DAILY (5) Fever Assessment & Plan: CT A/P with findings Impression: No definite acute process Diverticulosis. No evidence of diverticulitis Extensive edema of the subcutaneous fat. 2 cm focal fluid collection/edema seen within the incision Moderate amount retained dense stool. Correlate with any clinical history of constipation Hiatal hernia. Gastrostomy Left renal parapelvic cysts Apparent prior hysterectomy US w/ There are gallstones identified. No gallbladder wall thickening identified. The liver is unremarkable. Gallbladder is unremarkable. CBD is 3 mm. No gallstones identified. No biliary ductal dilatation seen. The kidneys are echogenic. There is no significant hydronephrosis demonstrated. There may be slight fullness of the left collecting system at the level of the kidney. The spleen is normal size. Pancreas and aorta are grossly unremarkable as visualized. (6) Decubitus skin ulcer Assessment & Plan: Pt presented on admission with full thickness sacral pressure injury.Base of wound is 20% necrotic , 80% slough. borders are macerated . Mild odor noted. (L)8.4cm x (W) 6.5cm. Periwound skin tone is darker without erythema,induration or elevation in skin temp. Both heels are non -blanchable and both are fluctuant when palpated. neck wounds still declining because of trach dependance, edema, and location as well as patients contractures Tx.Plan: Clean wound with saline. Apply Therahoney. Aply Moisture Barrier paste periwound. Cover with Optifoam drsg. Change every 3 days and prn. Apply Cavilon Skin Barrier to both heels. Cover each heel with Optifoam drsg. Change every 7 days and prn. wash neck wounds daily, apply skin protectant, therahoney, gauze and foam dressing daily APM/DEIRDRE mattress overlay. Reposition at least every 2hours or as tolerated. Off-load heels with pillow. will follow with recs thank you Preet Hylton Dec 09, 2018 08:41
[2018-12-09] MEDS: Lactulose 10gm/15ml UDC GT SCH ×3 (09:32→18:10)
[2018-12-09] MEDS: Bactrim-DS 1 tab ORAL SCH (09:32)
[2018-12-09] MEDS: Sennosides 8.6mg tab GT SCH ×2 (09:33→20:06)
[2018-12-09] MEDS: PHENobarbital Elixir 30mg/7.5ml GT SCH ×2 (09:35→18:11)
[2018-12-09] MEDS: levETIRAcetam 500mg/5ml Liquid GT SCH ×2 (09:35→20:05)
[2018-12-09] MEDS: Levemir Flexpen SUBQ SCH ×2 (09:38→20:07)
[2018-12-09] MEDS: Enoxaparin 40mg Inj SUBQ SCH (09:39)
--- NOTE | 2018-12-09 10:18 | Diagnostic Imaging Report ---
EXAM: XR Chest, 1 View CLINICAL HISTORY: INFECT TECHNIQUE: Frontal view of the chest. COMPARISON: No relevant prior studies available. FINDINGS: Lungs: Reduced lung volumes with bilateral pulmonary opacities. Retrocardiac atelectasis consolidation. Pleural space: Right pleural effusion. No pneumothorax. Heart: cardiomegaly. Mediastinum: Unremarkable. Bones joints: No acute fracture. Tubes, lines and devices: Right PICC line tip is difficult to delineate, it may cross midline. Tracheostomy. IMPRESSION: 1. Reduced lung volumes with bilateral pulmonary opacities. Could be edema and or pneumonia. There is a broader differential. 2. Right pleural effusion. 3. Right PICC line tip is difficult to delineate, it may cross midline rather than extend into the SVC. <MYCVCSECTION> [employer] 12 09 18 10:36 Verify Receipt with Nurse Verified receipt with CHARLEE uV on 12 09 10:36 (-07:00)
[2018-12-09] MEDS: POLYMYXIN B SULFATE IVPB SCH ×2 (10:49→20:11)
[2018-12-09] MEDS: SODIUM CHLORIDE IVPB SCH ×2 (10:49→20:11)
[2018-12-09 12:00] VITALS: BP 122/64
--- NOTE | 2018-12-09 12:23 | Hematology/Onc Progress Note ---
Assessment/Plan Assessment/Plan # Anemia of chronic disease due to underlying chronic medical issues, multifactorial --> Anemia workup has been reviewed and cw acd --> No evidence of hemolysis is noted, peripheral smear has been reviewed --> Hgb goal >7. Transfuse prn. --> hgb trend 9-->8-->7.5-->9.3->8.6-->8.4-->8.7->7.6-->6.6-->7.6 --> Epogen or iron indication prn --> Medications have been reviewed --> low threshold for gi evaluation and occult NEGATIVE # Leukocytosis with sepsis secondary to UTI, GPC staph epidermidis bacteremia, Line associated infection, patient arrived to the hospital with a PICC --> as per ID consult recs --> Continue antibiotics per ID: Continue Zosyn and vancomycin, anti fungal added--> kaykay/vanc, diflucan-->flagyl, vanc, polymyxin--> omid/flagyl/polym/vanc --> imaging noted --> now improved # Thrombocytosis is likely due to underlying reactive process --> if doesn't improve send off jak2 --> plt count 641k-->402k-->344-->275k-->280k-->250k-->255k # Elevated tumor marker, cea --> as per gi eval # Transaminitis --> trend lft's --> GI consult, apprec recs --> ab us: reviewed # Elevated troponin secondary to sepsis versus ACS --> as per Cardiology recs # Hypertension- improved --> sbp goal <150 # Vent dependent with trach --> on vent currently --> as per Pulmonary recs # Hypokalemia --> give vit K # Dysphagia s/p gtube feeds # CHf hx with hyponatremia --> 1l fluid restriction # Dvt ppx with lovenox The timing of this note does not necessarily reflect the time of the patient was seen. GREATLY APPRECIATE CONSULTATION. Subjective Constitutional: Denies: no symptoms, chills, fever, malaise, weakness, other HEENT: Denies: no symptoms, eye pain, blurred vision, tearing, double vision, ear pain, ear discharge, nose pain, nose congestion, throat pain, throat swelling, mouth pain, mouth swelling, other Cardiovascular: Denies: no symptoms, chest pain, edema, irregular heart rate, lightheadedness, palpitations, syncope, other Respiratory: Denies: no symptoms, cough, shortness of breath, SOB with excertion, SOB at rest, sputum, wheezing, other Genitourinary: Denies: no symptoms, burning, discharge, frequency, flank pain, hematuria, incontinence, pain, urgency, other Neurologic/Psychiatric: Denies: no symptoms, anxiety, depressed, emotional problems, headache, numbness, paresthesia, pre-existing deficit, seizure, tingling, tremors, weakness, other Endocrine: Denies: no symptoms, excessive sweating, flushing, intolerance to cold, intolerance to heat, increased hunger, increased thirst, increased urine, unexplained weight gain, unexplained weight loss, other Allergies: Coded Allergies: Crayfish (Unverified Allergy, Unknown, 11/11/18) Uncoded Allergies: Crawfish (Allergy, Unknown, 11/09/18) Subjective 11/14: no events to report, labs relatively stable, hgb 8.9, on vent 11/15: no bleeding, no chills, labs reviewed, no major changes 11/16: cxr-->bilateral interstitial edema, vs stable, on abx, on vent, contact isolation 11/17: labs reviewed, on abx, vs stable, on vent, no distress 11/18: remains on gtube feeds, is on vent, on kaykay/vanc 11/20: no events, no bleeding, kaykay, vanc, diflucan, no f/c 11/21: remains on vent, gtube feeds, no major changes, no bleeding 11/22: ct abdomen pelvis w/contrast reviewed, vs stable, no acute events, labs reviewed, remains intubated, low grade fever 11/23: reviewed meds, abx have been changed, remains altered currently 11/24: labs reviewed, vs stable, med reviewed, no sob, no distress, on vent 11/25: remains on vent, no major events, on glucerna, fluid restriction 11/27: signed consent today, no f/c, no night sweats 11/28: no f/c, on abx, on vent, no distress, picc line in 11/29: no events to report, no f/c, no bleeding noted, on vent 11/30: vs stable, no f/c, on vent, obtunded, gtube feeds 12/01: no f/c, cxr-->pulmonary edema, meds reviewed, contact precaution, on vent , labs noted 12/03: ongoing gtube feeds, nava in place, on vent, no bleeding 12/04: remains obtunded, on trach/to vent, no bleeding today, labs noted 12/05: electrolytes repleted overnight, no major changes, prbc was ordered hgb 6.6 12/06: on vent, trach dependent, no f/c, no bleeding 12/07: no events, labs noted 12/08: neck wounds being addressed, labs pending, no f/c overnight 12/09: on vent/trach, no bleeding, hgb 8.7, on gtube feeds Objective Objective Current Medications Medications (Trade) Dose Ordered Sig/Lupe Route PRN Reason Start Time Stop Time Status Last Admin Dose Admin Acetaminophen (Tylenol) 650 mg Q4H PRN GT Mild Pain/Temp > 100.5 11/09/18 05:00 01/07/19 04:59 11/24/18 21:50 Albuterol/ Ipratropium (Albuterol/ Ipratropium) 3 ml Q4H PRN HHN Shortness of Breath 12/05/18 19:00 12/13/18 18:59 Albuterol/ Ipratropium (Albuterol/ Ipratropium) 3 ml Q6HRT HHN 12/05/18 19:00 12/13/18 18:59 12/09/18 07:45 Amlodipine Besylate (Norvasc) 5 mg DAILY GT 12/05/18 09:00 01/07/19 08:59 12/09/18 09:33 Bisacodyl (Dulcolax) 10 mg DAILY PRN RECTAL Constipation 11/09/18 05:00 01/07/19 04:59 Chlorhexidine Gluconate (Corazon-Hex 2%) 1 applic DAILY@1999 TOPIC 11/12/18 20:00 01/07/19 19:59 12/08/18 20:09 Dextrose (Dextrose 50%) 25 ml Q30M PRN IV Hypoglycemia 11/09/18 04:45 01/07/19 04:44 Dextrose (Dextrose 50%) 50 ml Q30M PRN IV Hypoglycemia 11/09/18 04:45 01/07/19 04:44 11/09/18 09:09 Enoxaparin Sodium (Lovenox) 40 mg DAILY SUBQ 11/09/18 09:00 01/07/19 08:59 12/09/18 09:39 Famotidine (Pepcid) 20 mg EVERY 12 HOURS GT 11/09/18 21:00 01/07/19 20:59 12/09/18 09:33 Furosemide (Lasix) 40 mg EVERY 12 HOURS IV 12/04/18 21:00 01/03/19 20:59 12/09/18 09:33 Insulin Aspart (NovoLOG) Q6HR SUBQ 11/09/18 06:00 01/07/19 05:59 12/08/18 23:05 Insulin Detemir (Levemir) 4 units EVERY 12 HOURS SUBQ 11/16/18 21:00 01/07/19 20:59 12/09/18 09:38 Labetalol HCl (Normodyne) 200 mg Q8HR GT 11/09/18 06:00 01/07/19 05:59 12/09/18 05:06 Lactulose (Cephulac) 10 gm THREE TIMES A DAY GT 11/27/18 18:00 01/07/19 17:59 12/09/18 09:32 Levetiracetam (Keppra) 1,500 mg Q12HR GT 11/09/18 09:00 01/07/19 08:59 12/09/18 09:35 Magnesium Hydroxide (Mom) 30 ml DAILY PRN GT Constipation 11/09/18 05:00 01/07/19 04:59 Metronidazole (Flagyl) 500 mg EVERY 8 HOURS GT 12/08/18 14:00 12/13/18 21:59 12/09/18 05:05 Micafungin Sodium 100 mg/Sodium Chloride 100 ml @ 100 mls/hr DAILY@1800 IVPB 12/08/18 18:30 12/15/18 18:29 12/08/18 18:47 Ondansetron HCl (Zofran) 4 mg Q6H PRN GT Nausea & Vomiting 11/09/18 05:00 01/07/19 04:59 Phenobarbital (PHENobarbital) 60 mg BID GT 11/09/18 09:00 01/07/19 08:59 12/09/18 09:35 Phenytoin (Dilantin) 100 mg Q8HR GT 11/09/18 06:00 01/07/19 05:59 12/09/18 06:00 Polyethylene Glycol (Miralax) 17 gm DAILYPRN PRN GT Constipation 11/14/18 10:30 01/07/19 10:29 Polymyxin B Sulfate 216793 units/Sodium Chloride 550 ml @ 550 mls/hr EVERY 12 HOURS IVPB 12/06/18 17:30 12/13/18 17:29 12/09/18 10:49 Sennosides (Senokot) 8.6 mg EVERY 12 HOURS GT 11/09/18 21:00 01/07/19 20:59 12/09/18 09:33 Trimethoprim/ Sulfamethoxazole (Bactrim-DS) 1 tab Q12HR ORAL 12/06/18 21:00 12/13/18 20:59 12/09/18 09:32 Last 24 Hour Vital Signs Date Time Temp Pulse Resp B/P (MAP) Pulse Ox O2 Delivery O2 Flow Rate FiO2 12/09/18 12:00 Mechanical Ventilator 12/09/18 12:00 98.5 88 22 122/64 (83) 97 12/09/18 12:00 30 12/09/18 11:40 89 12/09/18 10:52 91 22 30 12/09/18 09:33 81 120/60 12/09/18 09:32 86 23 30 12/09/18 08:00 30 12/09/18 08:00 97.7 81 22 120/60 (80) 98 12/09/18 08:00 Mechanical Ventilator 12/09/18 07:45 85 22 97 Mechanical Ventilator 30 91 24 30 12/09/18 07:44 81 12/09/18 05:08 89 22 30 12/09/18 05:06 83 130/69 12/09/18 04:00 97.5 83 21 130/69 (89) 98 12/09/18 04:00 30 12/09/18 04:00 Mechanical Ventilator 12/09/18 03:35 84 12/09/18 03:00 81 25 30 12/09/18 01:01 78 17 100 Mechanical Ventilator 30 12/09/18 00:51 84 23 100 Mechanical Ventilator 30 84 23 30 12/09/18 00:00 Mechanical Ventilator 12/09/18 00:00 88 12/09/18 00:00 97.5 88 23 114/70 (85) 100 12/08/18 22:39 82 23 30 12/08/18 21:32 83 24 30 12/08/18 21:01 85 126/61 12/08/18 20:00 85 12/08/18 20:00 97.5 86 23 126/61 (82) 98 12/08/18 20:00 30 12/08/18 20:00 Mechanical Ventilator 12/08/18 18:59 79 22 100 Mechanical Ventilator 30 12/08/18 18:49 83 23 100 Mechanical Ventilator 30 83 23 30 12/08/18 16:59 81 24 30 12/08/18 16:00 Mechanical Ventilator 12/08/18 16:00 83 12/08/18 16:00 30 12/08/18 16:00 98.0 82 18 119/57 (77) 100 12/08/18 14:47 89 23 30 12/08/18 14:33 85 102/52 12/08/18 12:45 85 21 100 Mechanical Ventilator 30 12/08/18 12:35 85 25 Mechanical Ventilator 30 30 12/08/18 12:00 30 12/08/18 12:00 Mechanical Ventilator 12/08/18 11:57 98.4 85 18 102/52 (69) 100 12/08/18 11:42 86 12/08/18 10:30 86 23 30 12/08/18 09:19 90 26 99 Mechanical Ventilator 30 91 24 30 12/08/18 08:43 91 101/51 12/08/18 08:00 30 12/08/18 08:00 90 12/08/18 08:00 Mechanical Ventilator 12/08/18 08:00 98.7 91 18 101/51 (68) 100 12/08/18 06:53 90 26 99 Mechanical Ventilator 30 91 24 30 12/08/18 05:01 93 137/67 12/08/18 04:50 99 24 30 12/08/18 04:00 30 12/08/18 04:00 98.1 93 18 137/67 (90) 100 12/08/18 04:00 Mechanical Ventilator 12/08/18 04:00 98 12/08/18 03:00 82 19 30 12/08/18 01:09 90 20 100 Mechanical Ventilator 30 93 24 30 12/08/18 00:00 30 12/08/18 00:00 Mechanical Ventilator 12/08/18 00:00 98.3 92 21 124/68 (86) 96 12/08/18 00:00 88 12/07/18 23:28 95 26 30 12/07/18 21:03 92 118/65 12/07/18 21:00 96 26 30 12/07/18 20:00 96 12/07/18 20:00 98.7 92 16 118/65 (82) 96 12/07/18 20:00 Mechanical Ventilator 12/07/18 20:00 30 12/07/18 19:18 98 26 100 Mechanical Ventilator 30 98 24 30 12/07/18 16:45 95 27 30 12/07/18 16:00 88 12/07/18 16:00 Mechanical Ventilator 12/07/18 16:00 30 12/07/18 15:51 98.4 89 20 116/67 (83) 100 12/07/18 15:06 90 23 30 12/07/18 13:33 95 24 100 12/07/18 13:30 90 119/66 12/07/18 13:23 90 25 Mechanical Ventilator 30 30 Intake and Output 12/08/18 12/09/18 19:00 07:00 Intake Total 1160 ml 815 ml Output Total 1950 ml 1200 ml Balance -790 ml -385 ml Intake Free Water 150 ml IV Total 550 ml Tube Feeding 650 ml 265 ml Other 360 ml Output Urine Total 1950 ml 1200 ml # Bowel Movements 1 1 Labs Test 12/06/18 17:45 12/07/18 04:00 12/08/18 07:40 12/09/18 05:00 Urine Color Pale yellow Urine Appearance Slightly cloudy Urine pH 9 (4.5-8.0) Urine Specific [place] 1.015 (1.005-1.035) Urine Protein 2+ (NEGATIVE) Urine Glucose (UA) Negative (NEGATIVE) Urine Ketones Negative (NEGATIVE) Urine Blood 3+ (NEGATIVE) Urine Nitrite Positive (NEGATIVE) Urine Bilirubin Negative (NEGATIVE) Urine Urobilinogen Normal MG/DL (0.0-1.0) Urine Leukocyte Esterase 1+ (NEGATIVE) Urine RBC 5-10 /HPF (0 - 2) Urine WBC 5-10 /HPF (0 - 2) Urine Squamous Epithelial Cells Few /LPF (NONE/OCC) Urine Amorphous Sediment Moderate /LPF (NONE) Urine Bacteria Moderate /HPF (NONE) White Blood Count 13.3 K/UL (4.8-10.8) 16.7 K/UL (4.8-10.8) 15.3 K/UL (4.8-10.8) Red Blood Count 3.16 M/UL (4.20-5.40) 3.03 M/UL (4.20-5.40) 3.22 M/UL (4.20-5.40) Hemoglobin 8.6 G/DL (12.0-16.0) 8.5 G/DL (12.0-16.0) 8.7 G/DL (12.0-16.0) Hematocrit 25.2 % (37.0-47.0) 23.9 % (37.0-47.0) 26.0 % (37.0-47.0) Mean Corpuscular Volume 80 FL (80-99) 79 FL (80-99) 81 FL (80-99) Mean Corpuscular Hemoglobin 27.4 PG (27.0-31.0) 27.9 PG (27.0-31.0) 27.1 PG (27.0-31.0) Mean Corpuscular Hemoglobin Concent 34.3 G/DL (32.0-36.0) 35.4 G/DL (32.0-36.0) 33.5 G/DL (32.0-36.0) Red Cell Distribution Width 17.4 % (11.6-14.8) 17.3 % (11.6-14.8) 17.2 % (11.6-14.8) Platelet Count 265 K/UL (150-450) 231 K/UL (150-450) 231 K/UL (150-450) Mean Platelet Volume 6.4 FL (6.5-10.1) 6.8 FL (6.5-10.1) 5.7 FL (6.5-10.1) Neutrophils (%) (Auto) 78.4 % (45.0-75.0) 79.1 % (45.0-75.0) 78.1 % (45.0-75.0) Lymphocytes (%) (Auto) 6.5 % (20.0-45.0) 4.6 % (20.0-45.0) 5.6 % (20.0-45.0) Monocytes (%) (Auto) 12.8 % (1.0-10.0) 14.4 % (1.0-10.0) 14.1 % (1.0-10.0) Eosinophils (%) (Auto) 0.9 % (0.0-3.0) 0.9 % (0.0-3.0) 0.8 % (0.0-3.0) Basophils (%) (Auto) 1.5 % (0.0-2.0) 0.9 % (0.0-2.0) 1.3 % (0.0-2.0) Sodium Level 131 MMOL/L (136-145) 135 MMOL/L (136-145) 135 MMOL/L (136-145) Potassium Level 4.9 MMOL/L (3.5-5.1) 4.3 MMOL/L (3.5-5.1) 4.0 MMOL/L (3.5-5.1) Chloride Level 96 MMOL/L (98-107) 100 MMOL/L (98-107) 100 MMOL/L (98-107) Carbon Dioxide Level 31 MMOL/L (21-32) 29 MMOL/L (21-32) 28 MMOL/L (21-32) Anion Gap 5 mmol/L (5-15) 6 mmol/L (5-15) 8 mmol/L (5-15) Blood Urea Nitrogen 28 mg/dL (7-18) 31 mg/dL (7-18) 31 mg/dL (7-18) Creatinine 0.7 MG/DL (0.55-1.30) 0.8 MG/DL (0.55-1.30) 0.9 MG/DL (0.55-1.30) Estimat Glomerular Filtration Rate mL/min (>60) mL/min (>60) mL/min (>60) Glucose Level 103 MG/DL (74-106) 77 MG/DL (74-106) 77 MG/DL (74-106) Calcium Level 7.0 MG/DL (8.5-10.1) 8.2 MG/DL (8.5-10.1) 8.5 MG/DL (8.5-10.1) Total Bilirubin 0.4 MG/DL (0.2-1.0) 0.5 MG/DL (0.2-1.0) 0.5 MG/DL (0.2-1.0) Aspartate Amino Transf (AST/SGOT) 39 U/L (15-37) 34 U/L (15-37) 29 U/L (15-37) Alanine Aminotransferase (ALT/SGPT) 40 U/L (12-78) 31 U/L (12-78) 32 U/L (12-78) Alkaline Phosphatase 489 U/L (46-116) 516 U/L (46-116) 442 U/L (46-116) Total Protein 5.3 G/DL (6.4-8.2) 5.4 G/DL (6.4-8.2) 6.0 G/DL (6.4-8.2) Albumin 1.3 G/DL (3.4-5.0) 1.3 G/DL (3.4-5.0) 1.3 G/DL (3.4-5.0) Globulin 4.0 g/dL 4.1 g/dL 4.7 g/dL Albumin/Globulin Ratio 0.3 (1.0-2.7) 0.3 (1.0-2.7) 0.3 (1.0-2.7) Vancomycin Level Trough 41.9 ug/mL (5.0-12.0) Erythrocyte Sedimentation Rate 123 MM/HR (0-30) C-Reactive Protein, Quantitative > 70.0 mg/dL (0.00-0.90) Amylase Level 49 U/L (25-115) Lipase 44 U/L (73-393) Height (Feet): 5 Height (Inches): 8.00 Weight (Pounds): 241 Objective Physical Exam: Vitals: reviewed Gen: NAD, nonverbal HEENT: normocephalic, atraumatic Neck: non-tender, normal alignment ++ vent/trach Respiratory: normal breath sounds bilaterally CV: normal peripheral pulses, rrr Abdomen: normal bowel sounds, soft, nontender +gtube Extremities: 1-2+ edema Yonathan Hernandez MD Dec 09, 2018 12:23
[2018-12-09 16:00] VITALS: BP 122/61
--- NOTE | 2018-12-09 16:06 | Pulmonology Progress Note ---
Assessment/Plan Assessment/Plan Problems: (1) Ventilator dependence (2) Tracheostomy dependence (3) UTI (urinary tract infection) (4) Fever (5) Anoxic brain damage (6) Tongue abnormality (7) Seizure disorder (8) Colon adenocarcinoma (9) HTN (hypertension) (10) Sepsis (11) Diabetes (12) Abnormal LFTs (13) Protein calorie malnutrition (14) Gastrostomy in place (15) half-way resident (16) Decubitus skin ulcer Assessment/Plan Continue ventilatory support/settings reviewed no weaning Titrate down FiO2 to keep SaO2 > 90% Optimize pulmonary hygiene/mobilize as tolerated RTC and PRN HHN's Abx per ID, F/U Cx's F/U cards recs Monitor volumes and renal function, diuresis as able DVT Px: LMWH Per record seen by OMFS and no note written, no intervention recommended, no ENT available to see FC, continue to discuss GOC --> consider family meeting Wound care Subjective ROS Limited/Unobtainable: Yes Allergies: Coded Allergies: Crayfish (Unverified Allergy, Unknown, 11/11/18) Uncoded Allergies: Crawfish (Allergy, Unknown, 11/09/18) Subjective obtunded on the vent fever noted trach and peg no bleeding no events over night copious oral secretions Objective Last 24 Hour Vital Signs Date Time Temp Pulse Resp B/P (MAP) Pulse Ox O2 Delivery O2 Flow Rate FiO2 12/09/18 14:47 97 23 30 12/09/18 13:47 91 122/64 12/09/18 13:02 91 21 97 Mechanical Ventilator 30 92 22 30 12/09/18 12:00 Mechanical Ventilator 12/09/18 12:00 98.5 88 22 122/64 (83) 97 12/09/18 12:00 30 12/09/18 11:40 89 12/09/18 10:52 91 22 30 12/09/18 09:33 81 120/60 12/09/18 09:32 86 23 30 12/09/18 08:00 30 12/09/18 08:00 97.7 81 22 120/60 (80) 98 12/09/18 08:00 Mechanical Ventilator 12/09/18 07:45 85 22 97 Mechanical Ventilator 30 91 24 30 12/09/18 07:44 81 12/09/18 05:08 89 22 30 12/09/18 05:06 83 130/69 12/09/18 04:00 97.5 83 21 130/69 (89) 98 12/09/18 04:00 30 12/09/18 04:00 Mechanical Ventilator 12/09/18 03:35 84 12/09/18 03:00 81 25 30 12/09/18 01:01 78 17 100 Mechanical Ventilator 30 12/09/18 00:51 84 23 100 Mechanical Ventilator 30 84 23 30 12/09/18 00:00 Mechanical Ventilator 12/09/18 00:00 88 12/09/18 00:00 97.5 88 23 114/70 (85) 100 12/08/18 22:39 82 23 30 12/08/18 21:32 83 24 30 12/08/18 21:01 85 126/61 12/08/18 20:00 85 12/08/18 20:00 97.5 86 23 126/61 (82) 98 12/08/18 20:00 30 12/08/18 20:00 Mechanical Ventilator 12/08/18 18:59 79 22 100 Mechanical Ventilator 30 12/08/18 18:49 83 23 100 Mechanical Ventilator 30 83 23 30 12/08/18 16:59 81 24 30 Intake and Output 12/08/18 12/09/18 19:00 07:00 Intake Total 1160 ml 815 ml Output Total 1950 ml 1200 ml Balance -790 ml -385 ml Intake Free Water 150 ml IV Total 550 ml Tube Feeding 650 ml 265 ml Other 360 ml Output Urine Total 1950 ml 1200 ml # Bowel Movements 1 1 General Appearance: WD/WN Respiratory/Chest: rhonchi Cardiovascular: normal rate, regular rhythm, edema Skin: lesions Neurologic/Psychiatric: disoriented, unresponsiveness Microbiology Date/Time Source Procedure Growth Status 12/06/18 16:15 Blood Blood Culture - Preliminary NO GROWTH AFTER 48 HOURS Resulted 12/06/18 17:45 Sputum Induced Gram Stain - Final Resulted 12/06/18 17:45 Sputum Culture - Preliminary A.baumanii Complx - Mdr Gram Negative Bacillus 2 Resulted 12/06/18 17:45 Indwelling Cath Urine Culture - Final Proteus Mirabilis Complete Laboratory Tests 12/09/18 05:00: White Blood Count 15.3H, Red Blood Count 3.22L, Hemoglobin 8.7L, Hematocrit 26.0L, Mean Corpuscular Volume 81, Mean Corpuscular Hemoglobin 27.1, Mean Corpuscular Hemoglobin Concent 33.5, Red Cell Distribution Width 17.2H, Platelet Count 231, Mean Platelet Volume 5.7L, Neutrophils (%) (Auto) 78.1H, Lymphocytes (%) (Auto) 5.6L, Monocytes (%) (Auto) 14.1H, Eosinophils (%) (Auto) 0.8, Basophils (%) (Auto) 1.3, Erythrocyte Sedimentation Rate 123H, Sodium Level 135L, Potassium Level 4.0, Chloride Level 100, Carbon Dioxide Level 28, Anion Gap 8, Blood Urea Nitrogen 31H, Creatinine 0.9, Estimat Glomerular Filtration Rate , Glucose Level 77, Calcium Level 8.5, Total Bilirubin 0.5, Aspartate Amino Transf (AST/SGOT) 29, Alanine Aminotransferase (ALT/SGPT) 32, Alkaline Phosphatase 442H, C-Reactive Protein, Quantitative > 70.0H, Total Protein 6.0L, Albumin 1.3L, Globulin 4.7, Albumin/Globulin Ratio 0.3L, Amylase Level 49, Lipase 44L Current Medications Medications (Trade) Dose Ordered Sig/Lupe Route PRN Reason Start Time Stop Time Status Last Admin Dose Admin Acetaminophen (Tylenol) 650 mg Q4H PRN GT Mild Pain/Temp > 100.5 11/09/18 05:00 01/07/19 04:59 11/24/18 21:50 Albuterol/ Ipratropium (Albuterol/ Ipratropium) 3 ml Q4H PRN HHN Shortness of Breath 12/05/18 19:00 12/13/18 18:59 Albuterol/ Ipratropium (Albuterol/ Ipratropium) 3 ml Q6HRT HHN 12/05/18 19:00 12/13/18 18:59 12/09/18 13:02 Amlodipine Besylate (Norvasc) 5 mg DAILY GT 12/05/18 09:00 01/07/19 08:59 12/09/18 09:33 Bisacodyl (Dulcolax) 10 mg DAILY PRN RECTAL Constipation 11/09/18 05:00 01/07/19 04:59 Chlorhexidine Gluconate (Corazon-Hex 2%) 1 applic DAILY@1999 TOPIC 11/12/18 20:00 01/07/19 19:59 12/08/18 20:09 Dextrose (Dextrose 50%) 25 ml Q30M PRN IV Hypoglycemia 11/09/18 04:45 01/07/19 04:44 Dextrose (Dextrose 50%) 50 ml Q30M PRN IV Hypoglycemia 11/09/18 04:45 01/07/19 04:44 11/09/18 09:09 Enoxaparin Sodium (Lovenox) 40 mg DAILY SUBQ 11/09/18 09:00 01/07/19 08:59 12/09/18 09:39 Famotidine (Pepcid) 20 mg EVERY 12 HOURS GT 11/09/18 21:00 01/07/19 20:59 12/09/18 09:33 Furosemide (Lasix) 40 mg EVERY 12 HOURS IV 12/04/18 21:00 01/03/19 20:59 12/09/18 09:33 Insulin Aspart (NovoLOG) Q6HR SUBQ 11/09/18 06:00 01/07/19 05:59 12/08/18 23:05 Insulin Detemir (Levemir) 4 units EVERY 12 HOURS SUBQ 11/16/18 21:00 01/07/19 20:59 12/09/18 09:38 Labetalol HCl (Normodyne) 200 mg Q8HR GT 11/09/18 06:00 01/07/19 05:59 12/09/18 13:47 Lactulose (Cephulac) 10 gm THREE TIMES A DAY GT 11/27/18 18:00 01/07/19 17:59 12/09/18 13:46 Levetiracetam (Keppra) 1,500 mg Q12HR GT 11/09/18 09:00 01/07/19 08:59 12/09/18 09:35 Levofloxacin (Levaquin) 500 mg DAILY ORAL 12/10/18 09:00 12/17/18 08:59 Magnesium Hydroxide (Mom) 30 ml DAILY PRN GT Constipation 11/09/18 05:00 01/07/19 04:59 Metronidazole (Flagyl) 500 mg EVERY 8 HOURS GT 12/08/18 14:00 12/13/18 21:59 12/09/18 13:46 Micafungin Sodium 100 mg/Sodium Chloride 100 ml @ 100 mls/hr DAILY@1800 IVPB 12/08/18 18:30 12/15/18 18:29 12/08/18 18:47 Ondansetron HCl (Zofran) 4 mg Q6H PRN GT Nausea & Vomiting 11/09/18 05:00 01/07/19 04:59 Phenobarbital (PHENobarbital) 60 mg BID GT 11/09/18 09:00 01/07/19 08:59 12/09/18 09:35 Phenytoin (Dilantin) 100 mg Q8HR GT 11/09/18 06:00 01/07/19 05:59 12/09/18 13:46 Polyethylene Glycol (Miralax) 17 gm DAILYPRN PRN GT Constipation 11/14/18 10:30 01/07/19 10:29 Polymyxin B Sulfate [id number] units/Sodium Chloride 550 ml @ 550 mls/hr EVERY 12 HOURS IVPB 12/06/18 17:30 12/13/18 17:29 12/09/18 10:49 Sennosides (Senokot) 8.6 mg EVERY 12 HOURS GT 11/09/18 21:00 01/07/19 20:59 12/09/18 09:33 Ashley Salomon DO Dec 09, 2018 16:06
--- NOTE | 2018-12-09 19:11 | NUR ---
HAND-OFF: Report given to Steven RN. Pt. remain stable. Held GTF due to high residual.
--- NOTE | 2018-12-09 19:15 | NUR ---
NURSE NOTES: Received report from Mirella Olvera RN, pt. in bed obtunded, opens eyes- non-verbal, human factors scientist on, no signs or symptoms of acute cardiac or respiratory distress noted, bed in lowest position and call light within easy reach, bed locked in position and side rails up x's3, pt. appears to be resting comfortably in bed- comfort measures provided,Ospina intact and draining to gravity, Pt. appears to be clean and dry, comfort measures provided, repositioned and turned pt., pt. appears to be tolerating current vent settings well- AC 14, TV 375, Fio2 @30% and peep 5- no distress noted, Side rails padded for seizure precautions- no seizure activity noted, Glucerna 1.2 running via G tube at 65cc/hr- but held from previous shift due to high residuals- residual now is 110- will continue to hold feeding and monitor residuals, KAITLYNN PICC intact and patent- TKO, Safety measures continued, will continue with plan of care.
[2018-12-09 20:00] VITALS: BP 117/55
[2018-12-09] MEDS: Dyna-Hex 2% Top Sol 2oz TOPIC SCH (20:05)
--- NOTE | 2018-12-09 23:15 | NUR ---
NURSE NOTES: NovoLog not administered- due to high residuals and feeding held. Will continue to monitor pt. and with plan of care.
--- NOTE | 2018-12-09 23:35 | General Progress Note ---
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 SNOMED: 06085158 (6) Anoxic brain damage ICD Codes: G93.1 - Anoxic brain damage, not elsewhere classified SNOMED: 589511828 (7) Colon adenocarcinoma ICD Codes: C18.9 - Malignant neoplasm of colon, unspecified SNOMED: 215064642 (8) Ventilator dependence ICD Codes: Z99.11 - Dependence on respirator [ventilator] status SNOMED: 632969555 (9) Tracheostomy dependence ICD Codes: Z93.0 - Tracheostomy status SNOMED: 926586914 (10) Fever ICD Codes: R50.9 - Fever, unspecified SNOMED: 059685736 (11) Sepsis ICD Codes: A41.9 - Sepsis, unspecified organism SNOMED: 20431295 (12) UTI (urinary tract infection) ICD Codes: N39.0 - Urinary tract infection, site not specified SNOMED: 54517368 (13) Decubitus skin ulcer ICD Codes: L89.90 - Pressure ulcer of unspecified site, unspecified stage SNOMED: 896966113 (14) Protein calorie malnutrition ICD Codes: E46 - Unspecified protein-calorie malnutrition SNOMED: 742702384 (15) Abnormal LFTs ICD Codes: R94.5 - Abnormal results of liver function studies SNOMED: 619057253 (16) MRSA (methicillin resistant staphylococcus aureus) pneumonia ICD Codes: J15.212 - Pneumonia due to Methicillin resistant Staphylococcus aureus SNOMED: 352373645520532 (17) Drug rash ICD Codes: L27.0 - Generalized skin eruption due to drugs and medicaments taken internally SNOMED: 66646965 (18) Bacteremia ICD Codes: R78.81 - Bacteremia SNOMED: 3820700 (19) Gram-negative pneumonia ICD Codes: J15.6 - Pneumonia due to other Gram-negative bacteria SNOMED: 814662319 (20) Line sepsis ICD Codes: T85.79XA - Infection and inflammatory reaction due to other internal prosthetic devices, implants and grafts, initial encounter; A41.9 - Sepsis, unspecified organism SNOMED: 31595856, 707817328 (21) Hyponatremia ICD Codes: E87.1 - Hypo-osmolality and hyponatremia SNOMED: 28681185 (22) Hypokalemia ICD Codes: E87.6 - Hypokalemia SNOMED: 85353046 Status: stable Assessment/Plan: 78-year-old female who is trach dependent who was brought in by shelter for sepsis and found to have UTI and bacteremia. prolonged hospital course, multiple courses of antibiotics now with new HCAP. #new HCAP, aspiration pna risk, chest x-ray worse, leukocytosis, sepsis, hx wounds and surgery management, hx fevers, hx line infection, hx gram neg multi drug resistant pna, hx uti, s/p fungemia treatment - IMPROVING - Continue antibiotics - polymyxin, Bactrim, vancomycin, flagyl per ID - recheck cultures, labs and f/u chest x-ray. wbc rising. urine with gram negative bacilli, blood cultures negative to date. sputum culture pending. -will d/w Dr. Goodwin - discussion with family regarding GOC will need to take place if patient deteriorates #hyponatremia, hypotonic. Intravascularly depleted vs SIADH. Improving. Continue lasix 40mg BID. Nephrology consult Dr. Sommers # Transaminitis - worsening, meds vs passive congestion. improving - trend lft's - GI consult, appreciate recs - ab us: reviewed - hep panel negative #Elevated troponin secondary to sepsis versus ACS Cardiology consult, appreciate recs Medications per cardiology #Microcytic anemia- mixed anemia of chronic inflammation and iron deficiency. Start ferrous sulfate TID , transfused 1 uprbc 11/27. and another unit prbc today 12/05. #Hypertension- improved Continue current medications, hydralazine as needed hypertension. Amlodipine dose reduced due to borderline BP #Vent dependent Pulmonary consult, appreciate recs Vent management per pulmonary #Hypokalemia, hypophosphatemia, hypomagnesemia Replace, continue to monitor # Chronic tongue wound Supportive care On examination the patient has a sharp lower incisor present that is likely the culprit for the tongue laceration when she was intubated in the prior hospitalization at [facility] OMFS consultation Dr. Benavides ONLY bite block MOLT if available to decompress the tongue and get the remainder teeth out of the tongue way. Keep moisture in the lips and tongue. Tongue has too much edema and will need to decrease in size before considering possible suture? Decadron can be used but in the setting of active infection the risk of steroids outweighs benefits ENT consult difficult to obtain- pending # History of mood disorder Seen by psychiatry and on Depakote. Level was checked # Seizure history - Discussed with Dr. Eric who knew the patient from [facility] and confirmed that she did have seizure activity and was on multiple AED regimen. - Will continue Depakote ( 28 level ) and (Phenytoin 4.3 ) - no active seizure activity at this time. Keep current dose. - Both Dr. Eric and Mariana not available to come to [facility] for consult and not acute need at this time. #Diabetes Mellitus, controlled - glucose noted in the 90-110's - Decreased Levemir to 4 units q 12 hours # Disposition - SNF when cleared by ID. Full code timing of this note may not reflect time of encounter. I spent 37 minutes on this encounter. Great than 50 percent spent of care planning. I spent an additional 35 minutes on review of medical records including prior outside hospital records, consult notes, progress notes, procedures, imaging, labs, hemodynamics and other clinical documentation. Subjective Date patient seen: Dec 09, 2018 Time patient seen: 09:00 ROS Limited/Unobtainable: Yes Allergies: Coded Allergies: Crayfish (Unverified Allergy, Unknown, 11/11/18) Uncoded Allergies: Crawfish (Allergy, Unknown, 11/09/18) Subjective No acute events overnight. No vent changes. Further subjective history unable to be obtained. No family at bedside. Objective Last 24 Hour Vital Signs Date Time Temp Pulse Resp B/P (MAP) Pulse Ox O2 Delivery O2 Flow Rate FiO2 12/09/18 21:30 92 24 30 12/09/18 21:11 96 117/55 12/09/18 20:00 98.2 96 22 117/55 (75) 99 12/09/18 20:00 30 12/09/18 20:00 Mechanical Ventilator 12/09/18 19:30 93 25 97 Mechanical Ventilator 30 93 25 30 12/09/18 19:26 93 12/09/18 16:56 93 23 30 12/09/18 16:00 Mechanical Ventilator 12/09/18 16:00 30 12/09/18 16:00 99.0 90 22 122/61 (81) 96 12/09/18 15:30 93 12/09/18 14:47 97 23 30 12/09/18 13:47 91 122/64 12/09/18 13:02 91 21 97 Mechanical Ventilator 30 92 22 30 12/09/18 12:00 Mechanical Ventilator 12/09/18 12:00 98.5 88 22 122/64 (83) 97 12/09/18 12:00 30 12/09/18 11:40 89 12/09/18 10:52 91 22 30 12/09/18 09:33 81 120/60 12/09/18 09:32 86 23 30 12/09/18 08:00 30 12/09/18 08:00 97.7 81 22 120/60 (80) 98 12/09/18 08:00 Mechanical Ventilator 12/09/18 07:45 85 22 97 Mechanical Ventilator 30 91 24 30 12/09/18 07:44 81 12/09/18 05:08 89 22 30 12/09/18 05:06 83 130/69 12/09/18 04:00 97.5 83 21 130/69 (89) 98 12/09/18 04:00 30 12/09/18 04:00 Mechanical Ventilator 12/09/18 03:35 84 12/09/18 03:00 81 25 30 12/09/18 01:01 78 17 100 Mechanical Ventilator 30 12/09/18 00:51 84 23 100 Mechanical Ventilator 30 84 23 30 12/09/18 00:00 Mechanical Ventilator 12/09/18 00:00 88 12/09/18 00:00 97.5 88 23 114/70 (85) 100 Intake and Output 12/08/18 12/09/18 19:00 07:00 Intake Total 1160 ml 815 ml Output Total 1950 ml 1200 ml Balance -790 ml -385 ml Intake Free Water 150 ml IV Total 550 ml Tube Feeding 650 ml 265 ml Other 360 ml Output Urine Total 1950 ml 1200 ml # Bowel Movements 1 1 Laboratory Tests 12/09/18 05:00: White Blood Count 15.3H, Red Blood Count 3.22L, Hemoglobin 8.7L, Hematocrit 26.0L, Mean Corpuscular Volume 81, Mean Corpuscular Hemoglobin 27.1, Mean Corpuscular Hemoglobin Concent 33.5, Red Cell Distribution Width 17.2H, Platelet Count 231, Mean Platelet Volume 5.7L, Neutrophils (%) (Auto) 78.1H, Lymphocytes (%) (Auto) 5.6L, Monocytes (%) (Auto) 14.1H, Eosinophils (%) (Auto) 0.8, Basophils (%) (Auto) 1.3, Erythrocyte Sedimentation Rate 123H, Sodium Level 135L, Potassium Level 4.0, Chloride Level 100, Carbon Dioxide Level 28, Anion Gap 8, Blood Urea Nitrogen 31H, Creatinine 0.9, Estimat Glomerular Filtration Rate , Glucose Level 77, Calcium Level 8.5, Total Bilirubin 0.5, Aspartate Amino Transf (AST/SGOT) 29, Alanine Aminotransferase (ALT/SGPT) 32, Alkaline Phosphatase 442H, C-Reactive Protein, Quantitative > 70.0H, Total Protein 6.0L, Albumin 1.3L, Globulin 4.7, Albumin/Globulin Ratio 0.3L, Amylase Level 49, Lipase 44L Height (Feet): 5 Height (Inches): 8.00 Weight (Pounds): 241 General Appearance: other - On mechanical ventilator, nonverbal, EENT: other - PERRLA, EOMI, protuberant tongue with midline split Neck: non-tender, normal alignment, other - Trach in place Cardiovascular: normal rate, regular rhythm, regularly irregular, no gallop/ murmur, no JVD Respiratory/Chest: other - Coarse breath sounds bilaterally, no wheezes Abdomen: normal bowel sounds, non tender, soft, no organomegaly Extremities: other - 3+ pitting edema throughout UE and LE bilaterally Neurologic: other - A&O x 0, withdraws to painful stimuli Skin: other - No lesions noted Navneet You D.O. Dec 09, 2018 23:35
[2018-12-10] VITALS: BP 115/59
[2018-12-10] MEDS: Albuterol/Ipratropium 3ml neb HHN SCH ×4 (01:16→19:39)
[2018-12-10 04:00] VITALS: BP 135/69
[2018-12-10] MEDS: NovoLOG Insulin Flexpen SUBQ SCH ×3 (05:00→18:00)
--- NOTE | 2018-12-10 05:01 | NUR ---
NURSE NOTES: NovoLog not administered- due to high residuals and feeding held. Will continue to monitor pt. and with plan of care. pt remains stable.
[2018-12-10] MEDS: metroNIDAZOLE 500mg tab GT SCH ×2 (05:02→14:45)
[2018-12-10] MEDS: Magic Mouth Wash 60ml (Benadryl/Mylanta/Visc Lido) ORAL SCH ×3 (05:02→20:58)
[2018-12-10] MEDS: Labetalol 200mg tab GT SCH ×3 (05:02→21:08)
[2018-12-10] MEDS: Phenytoin Susp 100mg/4ml GT SCH ×3 (05:02→21:08)
[2018-12-10 05:29] LABS: BASOPHILS % (AUTO) 1.1 % (0.0-2.0); HEMATOCRIT 26.8 % (37.0-47.0); HEMOGLOBIN 8.9 G/DL (12.0-16.0); LYMPHOCYTES % (AUTO) 4.7 % (20.0-45.0); MEAN CORPUSCULAR VOLUME 82 FL (80-99); MONOCYTES % (AUTO) 13.8 % (1.0-10.0); NEUTROPHILS % (AUTO) 79.4 % (45.0-75.0); PLATELET COUNT 267 K/UL (150-450); RED BLOOD COUNT 3.28 M/UL (4.20-5.40); WHITE BLOOD COUNT 17.8 K/UL (4.8-10.8)
[2018-12-10 05:58] LABS: ALANINE AMINOTRANSFERASE 26 U/L (12-78); ALBUMIN 1.4 G/DL (3.4-5.0); ALBUMIN/GLOBULIN RATIO 0.3 (1.0-2.7); ALKALINE PHOSPHATASE 389 U/L (46-116); ANION GAP 11 mmol/L (5-15); ASPARTATE AMINO TRANSFERASE 25 U/L (15-37); BILIRUBIN,TOTAL 0.7 MG/DL (0.2-1.0); BLOOD UREA NITROGEN 30 mg/dL (7-18); CALCIUM 8.9 MG/DL (8.5-10.1); CARBON DIOXIDE 25 MMOL/L (21-32); CHLORIDE 101 MMOL/L (98-107); CREATININE 0.9 MG/DL (0.55-1.30); POTASSIUM 3.6 MMOL/L (3.5-5.1); SODIUM 137 MMOL/L (136-145)
--- NOTE | 2018-12-10 06:01 | NUR ---
NURSE NOTES: left message for DR. Belle regarding pt. change in condition- Pt. is stable and no distress noted- awaiting for call back from doctor.
--- NOTE | 2018-12-10 06:57 | NUR ---
HAND-OFF: Report given to Mirella RN, pt. remians stable and no signs of distress noted- nurse aware to f/u with DR. Belle regarding message left earlier.
--- NOTE | 2018-12-10 07:04 | NUR ---
NURSE NOTES: Received updated bedside report from Steven DESHPANDE. Pt. in bed, obtunded. No sign of distress. Mech vent. dependent with setting of AC14/VT375/FiO2 of 30%/P5. No grimacing noted. Per previous shift pt. tongue is more split than usual now. No bleeding noted. HOB elevated at all times. On GTF Glucerna 1.2 at 65cc/hr. Currently on hold due to very high residual per previous shift. PICC line at right upper arm with 2 lumen in placed patent/intact. F/C in placed patent/intact draining yellow colored urine. Padded side rails in placed due to seizure precaution observed. Bed in low position, locked. Call light within reach. Will cont. to monitor.
[2018-12-10 08:00] VITALS: BP 124/65
--- NOTE | 2018-12-10 08:30 | NUR ---
NURSE NOTES: Informed Dr. Thomas regarding high residual from GT. He checked the pt. Made him aware that GTF will be on hold until high residual be resolved.
[2018-12-10] MEDS: Lactulose 10gm/15ml UDC GT SCH ×3 (08:54→17:30)
[2018-12-10] MEDS: PHENobarbital Elixir 30mg/7.5ml GT SCH ×2 (08:55→17:30)
[2018-12-10] MEDS: Sennosides 8.6mg tab GT SCH ×2 (08:56→20:58)
[2018-12-10] MEDS: SODIUM CHLORIDE IVPB SCH (08:57)
[2018-12-10] MEDS: POLYMYXIN B SULFATE IVPB SCH (08:57)
[2018-12-10] MEDS ORDERED: Levofloxacin 500mg tab ORAL SCH (09:00)
[2018-12-10] MEDS: Enoxaparin 40mg Inj SUBQ SCH (09:00)
[2018-12-10] MEDS ORDERED: Minocycline HCl 50mg cap ORAL SCH ×3 (09:00→17:21)
[2018-12-10] MEDS: Levemir Flexpen SUBQ SCH ×2 (09:01→21:03)
[2018-12-10] MEDS: levETIRAcetam 500mg/5ml Liquid GT SCH ×2 (09:28→20:58)
--- NOTE | 2018-12-10 11:12 | Pulmonology Progress Note ---
Assessment/Plan Assessment/Plan Problems: (1) Ventilator dependence (2) Tracheostomy dependence (3) UTI proteus (4) Fever (5) Anoxic brain damage (6) Tongue abnormality (7) Seizure disorder (8) Colon adenocarcinoma (9) HTN (10) Sepsis (11) Diabetes (12) Abnormal LFTs (13) Protein calorie malnutrition (14) Gastrostomy in place (15) penitentiary resident (16) Decubitus skin ulcer Assessment/Plan Continue ventilatory support/settings reviewed no weaning Titrate down FiO2 to keep SaO2 > 90% Optimize pulmonary hygiene/mobilize as tolerated RTC and PRN HHN's Abx per ID, F/U Cx's WBc are increasing daily may need to be recultured F/U cards recs Monitor volumes and renal function, diuresis as able DVT Px: LMWH FC, continue to discuss GOC --> consider family meeting Wound care overall prognosis poor Subjective ROS Limited/Unobtainable: Yes Allergies: Coded Allergies: Crayfish (Unverified Allergy, Unknown, 11/11/18) Uncoded Allergies: Crawfish (Allergy, Unknown, 11/09/18) Subjective obtunded on the vent no bleeding oral secretions noted no reports of NV trach and peg no bleeding no events over night Objective Last 24 Hour Vital Signs Date Time Temp Pulse Resp B/P (MAP) Pulse Ox O2 Delivery O2 Flow Rate FiO2 12/10/18 09:59 98 26 30 12/10/18 08:56 101 124/65 12/10/18 08:00 30 12/10/18 08:00 98.4 101 21 124/65 (84) 97 12/10/18 08:00 Mechanical Ventilator 12/10/18 07:51 102 12/10/18 07:23 98 26 96 Mechanical Ventilator 30 95 25 30 12/10/18 05:09 106 25 30 12/10/18 05:02 98 139/71 12/10/18 04:00 Mechanical Ventilator 12/10/18 04:00 30 12/10/18 04:00 98.1 102 22 135/69 (91) 100 12/10/18 03:38 105 12/10/18 03:30 92 22 30 12/10/18 01:18 96 21 97 Mechanical Ventilator 30 96 21 30 12/10/18 00:00 94 12/10/18 00:00 30 12/10/18 00:00 98.0 92 22 115/59 (77) 100 12/10/18 00:00 Mechanical Ventilator 12/09/18 23:30 92 27 30 12/09/18 21:30 92 24 30 12/09/18 21:11 96 117/55 12/09/18 20:00 98.2 96 22 117/55 (75) 99 12/09/18 20:00 30 12/09/18 20:00 Mechanical Ventilator 12/09/18 19:30 93 25 97 Mechanical Ventilator 30 93 25 30 12/09/18 19:26 93 12/09/18 16:56 93 23 30 12/09/18 16:00 Mechanical Ventilator 12/09/18 16:00 30 12/09/18 16:00 99.0 90 22 122/61 (81) 96 12/09/18 15:30 93 12/09/18 14:47 97 23 30 12/09/18 13:47 91 122/64 12/09/18 13:02 91 21 97 Mechanical Ventilator 30 92 22 30 12/09/18 12:00 Mechanical Ventilator 12/09/18 12:00 98.5 88 22 122/64 (83) 97 12/09/18 12:00 30 12/09/18 11:40 89 Intake and Output 12/09/18 12/10/18 18:59 06:59 Intake Total 155 ml 550 ml Output Total 1050 ml 1400 ml Balance -895 ml -850 ml Intake Free Water 50 ml IV Total 550 ml Tube Feeding 105 ml Output Urine Total 1050 ml 1400 ml # Bowel Movements 1 General Appearance: WD/WN Respiratory/Chest: rhonchi Cardiovascular: normal rate, murmur systolic, edema Abdomen: normal bowel sounds, soft, non tender, no organomegaly Extremities: no cyanosis Neurologic/Psychiatric: disoriented, unresponsiveness Laboratory Tests 12/10/18 04:50: White Blood Count 17.8H, Red Blood Count 3.28L, Hemoglobin 8.9L, Hematocrit 26.8L, Mean Corpuscular Volume 82, Mean Corpuscular Hemoglobin 27.2, Mean Corpuscular Hemoglobin Concent 33.3, Red Cell Distribution Width 17.0H, Platelet Count 267, Mean Platelet Volume 6.3L, Neutrophils (%) (Auto) 79.4H, Lymphocytes (%) (Auto) 4.7L, Monocytes (%) (Auto) 13.8H, Eosinophils (%) (Auto) 1.0, Basophils (%) (Auto) 1.1, Sodium Level 137, Potassium Level 3.6, Chloride Level 101, Carbon Dioxide Level 25, Anion Gap 11, Blood Urea Nitrogen 30H, Creatinine 0.9, Estimat Glomerular Filtration Rate , Glucose Level 113H, Calcium Level 8.9, Total Bilirubin 0.7, Aspartate Amino Transf (AST/SGOT) 25, Alanine Aminotransferase (ALT/SGPT) 26, Alkaline Phosphatase 389H, Total Protein 6.2L, Albumin 1.4L, Globulin 4.8, Albumin/Globulin Ratio 0.3L Current Medications Medications (Trade) Dose Ordered Sig/Lupe Route PRN Reason Start Time Stop Time Status Last Admin Dose Admin Acetaminophen (Tylenol) 650 mg Q4H PRN GT Mild Pain/Temp > 100.5 11/09/18 05:00 01/07/19 04:59 11/24/18 21:50 Albuterol/ Ipratropium (Albuterol/ Ipratropium) 3 ml Q4H PRN HHN Shortness of Breath 12/05/18 19:00 12/13/18 18:59 Albuterol/ Ipratropium (Albuterol/ Ipratropium) 3 ml Q6HRT HHN 12/05/18 19:00 12/13/18 18:59 12/10/18 07:32 Amlodipine Besylate (Norvasc) 5 mg DAILY GT 12/05/18 09:00 01/07/19 08:59 12/10/18 08:56 Bisacodyl (Dulcolax) 10 mg DAILY PRN RECTAL Constipation 11/09/18 05:00 01/07/19 04:59 Chlorhexidine Gluconate (Corazon-Hex 2%) 1 applic DAILY@2000 TOPIC 11/12/18 20:00 01/07/19 19:59 12/09/18 20:05 Dextrose (Dextrose 50%) 25 ml Q30M PRN IV Hypoglycemia 11/09/18 04:45 01/07/19 04:44 Dextrose (Dextrose 50%) 50 ml Q30M PRN IV Hypoglycemia 11/09/18 04:45 01/07/19 04:44 11/09/18 09:09 Enoxaparin Sodium (Lovenox) 40 mg DAILY SUBQ 11/09/18 09:00 01/07/19 08:59 12/10/18 09:00 Famotidine (Pepcid) 20 mg EVERY 12 HOURS GT 11/09/18 21:00 01/07/19 20:59 12/10/18 08:56 Furosemide (Lasix) 40 mg EVERY 12 HOURS IV 12/04/18 21:00 01/03/19 20:59 12/10/18 08:55 Insulin Aspart (NovoLOG) Q6HR SUBQ 11/09/18 06:00 01/07/19 05:59 12/08/18 23:05 Insulin Detemir (Levemir) 4 units EVERY 12 HOURS SUBQ 11/16/18 21:00 01/07/19 20:59 12/10/18 09:01 Labetalol HCl (Normodyne) 200 mg Q8HR GT 11/09/18 06:00 01/07/19 05:59 12/10/18 05:02 Lactulose (Cephulac) 10 gm THREE TIMES A DAY GT 11/27/18 18:00 01/07/19 17:59 12/10/18 08:54 Levetiracetam (Keppra) 1,500 mg Q12HR GT 11/09/18 09:00 01/07/19 08:59 12/10/18 09:28 Levofloxacin (Levaquin) 500 mg DAILY ORAL 12/10/18 09:00 12/17/18 08:59 12/10/18 08:56 Magnesium Hydroxide (Mom) 30 ml DAILY PRN GT Constipation 11/09/18 05:00 01/07/19 04:59 Metronidazole (Flagyl) 500 mg EVERY 8 HOURS GT 12/08/18 14:00 12/13/18 21:59 12/10/18 05:02 Micafungin Sodium 100 mg/Sodium Chloride 100 ml @ 100 mls/hr DAILY@1800 IVPB 12/08/18 18:30 12/15/18 18:29 12/09/18 18:10 Ondansetron HCl (Zofran) 4 mg Q6H PRN GT Nausea & Vomiting 11/09/18 05:00 01/07/19 04:59 Phenobarbital (PHENobarbital) 60 mg BID GT 11/09/18 09:00 01/07/19 08:59 12/10/18 08:55 Phenytoin (Dilantin) 100 mg Q8HR GT 11/09/18 06:00 01/07/19 05:59 12/10/18 05:02 Polyethylene Glycol (Miralax) 17 gm DAILYPRN PRN GT Constipation 11/14/18 10:30 01/07/19 10:29 Polymyxin B Sulfate 865019 units/Sodium Chloride 550 ml @ 550 mls/hr EVERY 12 HOURS IVPB 12/06/18 17:30 12/13/18 17:29 12/10/18 08:57 Sennosides (Senokot) 8.6 mg EVERY 12 HOURS GT 11/09/18 21:00 01/07/19 20:59 12/10/18 08:56 Ashley Salomon DO Dec 10, 2018 11:12
--- NOTE | 2018-12-10 11:55 | NUR ---
NURSE NOTES: Treasure Flor called with angry tone of voice regarding pt. medication and ordering nurse to stop her blood pressure medication because she done some research and one of her blood pressure medication is causing her tongue to swell. RN told Treasure that her message will be relay to MD who ever is covering this weekend. She ordered make sure "STOP THAT MEDICINE" when asked by RN what really particularly the name of medication? She told the nurse to check all her medicine...? Will cont. to monitor.
[2018-12-10 12:00] VITALS: BP 114/62
--- NOTE | 2018-12-10 12:00 | NUR ---
NURSE NOTES: 2 units of novolog insulin held due to pt. GTF on hold because of residual.
--- NOTE | 2018-12-10 12:00 | NUR ---
NURSE NOTES: Dr. Liz came to see pt. and notified him that family wanting to talk to him regarding her blood pressure medication makes the tongue to swell and wanting it to be stop right away. Dr. Liz called family and spoke with Tran (sister) of pt. Dr. Liz explained to Tran the status of pt. tongue. Dr. Liz also encouraged Tran to have a family and doctors meeting.
--- NOTE | 2018-12-10 13:38 | Surgery Progress Note ---
Surgery Progress Note Subjective Additional Comments patient released her clenched jaw and I was able to reduce the tongue in today. has multiple areas of separation from chronic compression and edema. noted three different areas where tongue is with chronic changes Objective Last 24 Hour Vital Signs Date Time Temp Pulse Resp B/P (MAP) Pulse Ox O2 Delivery O2 Flow Rate FiO2 12/10/18 13:08 106 26 30 12/10/18 12:00 Mechanical Ventilator 12/10/18 12:00 30 12/10/18 12:00 99.7 101 21 114/62 (79) 98 12/10/18 11:58 92 26 30 12/10/18 09:59 98 26 30 12/10/18 08:56 101 124/65 12/10/18 08:00 30 12/10/18 08:00 98.4 101 21 124/65 (84) 97 12/10/18 08:00 Mechanical Ventilator 12/10/18 07:51 102 12/10/18 07:23 98 26 96 Mechanical Ventilator 30 95 25 30 12/10/18 05:09 106 25 30 12/10/18 05:02 98 139/71 12/10/18 04:00 Mechanical Ventilator 12/10/18 04:00 30 12/10/18 04:00 98.1 102 22 135/69 (91) 100 12/10/18 03:38 105 12/10/18 03:30 92 22 30 12/10/18 01:18 96 21 97 Mechanical Ventilator 30 96 21 30 12/10/18 00:00 94 12/10/18 00:00 30 12/10/18 00:00 98.0 92 22 115/59 (77) 100 12/10/18 00:00 Mechanical Ventilator 12/09/18 23:30 92 27 30 12/09/18 21:30 92 24 30 12/09/18 21:11 96 117/55 12/09/18 20:00 98.2 96 22 117/55 (75) 99 12/09/18 20:00 30 12/09/18 20:00 Mechanical Ventilator 12/09/18 19:30 93 25 97 Mechanical Ventilator 30 93 25 30 12/09/18 19:26 93 12/09/18 16:56 93 23 30 12/09/18 16:00 Mechanical Ventilator 12/09/18 16:00 30 12/09/18 16:00 99.0 90 22 122/61 (81) 96 12/09/18 15:30 93 12/09/18 14:47 97 23 30 12/09/18 13:47 91 122/64 I&O Intake and Output 12/09/18 12/10/18 18:59 06:59 Intake Total 155 ml 550 ml Output Total 1050 ml 1400 ml Balance -895 ml -850 ml Intake Free Water 50 ml IV Total 550 ml Tube Feeding 105 ml Output Urine Total 1050 ml 1400 ml # Bowel Movements 1 Dressing: other Wound: other Drains: other Cardiovascular: RSR Respiratory: clear Abdomen: soft, other, non-distended Extremities: other Laboratory Tests Test 12/10/18 04:50 White Blood Count 17.8 K/UL (4.8-10.8) H Red Blood Count 3.28 M/UL (4.20-5.40) L Hemoglobin 8.9 G/DL (12.0-16.0) L Hematocrit 26.8 % (37.0-47.0) L Mean Corpuscular Volume 82 FL (80-99) Mean Corpuscular Hemoglobin 27.2 PG (27.0-31.0) Mean Corpuscular Hemoglobin Concent 33.3 G/DL (32.0-36.0) Red Cell Distribution Width 17.0 % (11.6-14.8) H Platelet Count 267 K/UL (150-450) Mean Platelet Volume 6.3 FL (6.5-10.1) L Neutrophils (%) (Auto) 79.4 % (45.0-75.0) H Lymphocytes (%) (Auto) 4.7 % (20.0-45.0) L Monocytes (%) (Auto) 13.8 % (1.0-10.0) H Eosinophils (%) (Auto) 1.0 % (0.0-3.0) Basophils (%) (Auto) 1.1 % (0.0-2.0) Sodium Level 137 MMOL/L (136-145) Potassium Level 3.6 MMOL/L (3.5-5.1) Chloride Level 101 MMOL/L (98-107) Carbon Dioxide Level 25 MMOL/L (21-32) Anion Gap 11 mmol/L (5-15) Blood Urea Nitrogen 30 mg/dL (7-18) H Creatinine 0.9 MG/DL (0.55-1.30) Estimat Glomerular Filtration Rate mL/min (>60) Glucose Level 113 MG/DL (74-106) H Calcium Level 8.9 MG/DL (8.5-10.1) Total Bilirubin 0.7 MG/DL (0.2-1.0) Aspartate Amino Transf (AST/SGOT) 25 U/L (15-37) Alanine Aminotransferase (ALT/SGPT) 26 U/L (12-78) Alkaline Phosphatase 389 U/L (46-116) H Total Protein 6.2 G/DL (6.4-8.2) L Albumin 1.4 G/DL (3.4-5.0) L Globulin 4.8 g/dL Albumin/Globulin Ratio 0.3 (1.0-2.7) L Plan Problems: (1) Fever (2) Tongue abnormality Assessment & Plan: patients jaw clenched closed and tongue has been stuck for some time. tongue split from middle teeth and now in two. edema and unable to reduce keep tongue moist. apply lube jelly prn dryness. will monitor do not recommend surgical intervention for this current medical condition spoke with family. ENT. OMFS no intervention stable still overall (3) Tracheostomy dependence (4) Sepsis Assessment & Plan: gb no stones 6mm polyp no acute surgical intervention planned trend labs neck wounds being cared for sacral wound declining despite best efforts she has been receiving adequate nutritional supplementation and good wound care but inevitable decline unfortunately prognosis guarded DAILY ESTIMATED NEEDS: Needs based on Critical care, sepsis, wound 60kg adj 22-30 kcals/kg 0913-6201 total kcals 1.25-2 g protein/kg 75-120 g total protein Fluid per MD, on lasix NUTRITION DIAGNOSIS: * Swallowing difficulty r/t respiratory status as evidenced by pt is vent dep via trach and PEG dep. * Increased kcal and pro needs r/t wound healing and sepsis as evidenced by pt w/ sacral and R heel wounds, febrile (Tmax 101.5). CURRENT TF: Jevity 1.2 @50 ml/hr x16 hrs ENTERAL NUTRITION RECOMMENDATIONS: Glucerna 1.2 @65ml/hr x18 hrs + Prosource x1 daily to provide 1170ml, 1404 kcal, 70g pro + 11g pro, 942 free H2O - REC TF CHANGE AND INCREASE TO BETTER MEET EST NEEDS - TF TO BE HELD FOR ONE HR BEFORE AND AFTER DILANTIN MEDS - START @20ML/HR, ADVANCE TOLERATED 15ML/HR Q4-6 HRS TO GOAL - FLUSH PER TAYLER SOLIS OVLORENZO 30 DEGREES ADDITIONAL RECOMMENDATIONS: 1) CALIBRATED BED SCALE W/ ADDED P200 MATTRESS + PUMP 2) ON LASIX, MONITOR LYTES AND HYDRATION STATUS DAILY 3) TF TO RUN A MAX OF 18 HRS/DAY W/ DILANTIN TID PER PHARMACY 4) REC TF CHANGE TO CARB CONTROL FORMULA 5) WOUND CARE: ADD CHAYITO BID + VIT C 250MG DAILY (5) Fever Assessment & Plan: CT A/P with findings Impression: No definite acute process Diverticulosis. No evidence of diverticulitis Extensive edema of the subcutaneous fat. 2 cm focal fluid collection/edema seen within the incision Moderate amount retained dense stool. Correlate with any clinical history of constipation Hiatal hernia. Gastrostomy Left renal parapelvic cysts Apparent prior hysterectomy US w/ There are gallstones identified. No gallbladder wall thickening identified. The liver is unremarkable. Gallbladder is unremarkable. CBD is 3 mm. No gallstones identified. No biliary ductal dilatation seen. The kidneys are echogenic. There is no significant hydronephrosis demonstrated. There may be slight fullness of the left collecting system at the level of the kidney. The spleen is normal size. Pancreas and aorta are grossly unremarkable as visualized. (6) Decubitus skin ulcer Assessment & Plan: Pt presented on admission with full thickness sacral pressure injury.Base of wound is 20% necrotic , 80% slough. borders are macerated . Mild odor noted. (L)8.4cm x (W) 6.5cm. Periwound skin tone is darker without erythema,induration or elevation in skin temp. Both heels are non -blanchable and both are fluctuant when palpated. neck wounds still declining because of trach dependance, edema, and location as well as patients contractures Tx.Plan: Clean wound with saline. Apply Therahoney. Aply Moisture Barrier paste periwound. Cover with Optifoam drsg. Change every 3 days and prn. Apply Cavilon Skin Barrier to both heels. Cover each heel with Optifoam drsg. Change every 7 days and prn. wash neck wounds daily, apply skin protectant, therahoney, gauze and foam dressing daily APM/DEIRDRE mattress overlay. Reposition at least every 2hours or as tolerated. Off-load heels with pillow. will follow with recs thank you Additional Comments bite block with moist gauze Preet Hylton Dec 10, 2018 13:38
[2018-12-10] MEDS ORDERED: NS 275ml ONE (13:45)
[2018-12-10] MEDS ORDERED: Tubing IV Secondary IV ONE (13:45)
[2018-12-10] MEDS ORDERED: NS Irrig 1000ml ONE (13:45)
--- NOTE | 2018-12-10 15:35 | General Progress Note ---
Assessment/Plan Status: stable Assessment/Plan: Assessment - anemia, OB (-) - abnorma Alk phos, ? dilantin - dysphagia, s/p GT - elevated residuals - Resp, failure, s/p Trach Recommendations - Continue TF - PRN Reglan - Monitor LFT - follow CBC - Conservative approach given poor health Subjective Allergies: Coded Allergies: Crayfish (Unverified Allergy, Unknown, 11/11/18) Uncoded Allergies: Crawfish (Allergy, Unknown, 11/09/18) Subjective above noted obtunded / comatose RN reports high residuals Objective Last 24 Hour Vital Signs Date Time Temp Pulse Resp B/P (MAP) Pulse Ox O2 Delivery O2 Flow Rate FiO2 12/10/18 14:46 106 114/62 12/10/18 13:08 106 26 30 12/10/18 12:00 Mechanical Ventilator 12/10/18 12:00 30 12/10/18 12:00 99.7 101 21 114/62 (79) 98 12/10/18 11:58 92 26 30 12/10/18 11:52 98 12/10/18 09:59 98 26 30 12/10/18 08:56 101 124/65 12/10/18 08:00 30 12/10/18 08:00 98.4 101 21 124/65 (84) 97 12/10/18 08:00 Mechanical Ventilator 12/10/18 07:51 102 12/10/18 07:23 98 26 96 Mechanical Ventilator 30 95 25 30 12/10/18 05:09 106 25 30 12/10/18 05:02 98 139/71 12/10/18 04:00 Mechanical Ventilator 12/10/18 04:00 30 12/10/18 04:00 98.1 102 22 135/69 (91) 100 12/10/18 03:38 105 12/10/18 03:30 92 22 30 12/10/18 01:18 96 21 97 Mechanical Ventilator 30 96 21 30 12/10/18 00:00 94 12/10/18 00:00 30 12/10/18 00:00 98.0 92 22 115/59 (77) 100 12/10/18 00:00 Mechanical Ventilator 12/09/18 23:30 92 27 30 12/09/18 21:30 92 24 30 12/09/18 21:11 96 117/55 12/09/18 20:00 98.2 96 22 117/55 (75) 99 12/09/18 20:00 30 12/09/18 20:00 Mechanical Ventilator 12/09/18 19:30 93 25 97 Mechanical Ventilator 30 93 25 30 12/09/18 19:26 93 12/09/18 16:56 93 23 30 12/09/18 16:00 Mechanical Ventilator 12/09/18 16:00 30 12/09/18 16:00 99.0 90 22 122/61 (81) 96 Intake and Output 12/09/18 12/10/18 19:00 07:00 Intake Total 155 ml 550 ml Output Total 1050 ml 1400 ml Balance -895 ml -850 ml Intake Free Water 50 ml IV Total 550 ml Tube Feeding 105 ml Output Urine Total 1050 ml 1400 ml # Bowel Movements 1 Laboratory Tests 12/10/18 04:50: White Blood Count 17.8H, Red Blood Count 3.28L, Hemoglobin 8.9L, Hematocrit 26.8L, Mean Corpuscular Volume 82, Mean Corpuscular Hemoglobin 27.2, Mean Corpuscular Hemoglobin Concent 33.3, Red Cell Distribution Width 17.0H, Platelet Count 267, Mean Platelet Volume 6.3L, Neutrophils (%) (Auto) 79.4H, Lymphocytes (%) (Auto) 4.7L, Monocytes (%) (Auto) 13.8H, Eosinophils (%) (Auto) 1.0, Basophils (%) (Auto) 1.1, Sodium Level 137, Potassium Level 3.6, Chloride Level 101, Carbon Dioxide Level 25, Anion Gap 11, Blood Urea Nitrogen 30H, Creatinine 0.9, Estimat Glomerular Filtration Rate , Glucose Level 113H, Calcium Level 8.9, Total Bilirubin 0.7, Aspartate Amino Transf (AST/SGOT) 25, Alanine Aminotransferase (ALT/SGPT) 26, Alkaline Phosphatase 389H, Total Protein 6.2L, Albumin 1.4L, Globulin 4.8, Albumin/Globulin Ratio 0.3L Height (Feet): 5 Height (Inches): 8.00 Weight (Pounds): 242 Lymphatic: normal other Objective Debilitated AA woman comatose, contracted NCAT swollen lips and split tongue (+) trach Coarse BS RR abd Soft (+) GT Muriel Thomas MD Dec 10, 2018 15:35
[2018-12-10] MEDS ORDERED: Metoclopramide 10mg/2ml Inj IVP PRN (15:45)
[2018-12-10 16:00] VITALS: BP 127/67
[2018-12-10] MEDS ORDERED: Bactrim Susp 20ml GT SCH ×2 (16:00→17:22)
--- NOTE | 2018-12-10 16:36 | Infectious Diseases Prog Note ---
Assessment/Plan Assessment/Plan ASSESSMENT AND PLAN: 1. providencia/acinetobacter pna, proteus uti, sepsis, leukocytosis, fevers, hx wounds per surgery management, + picc line, blood cultures remain negative - polymyxin, bactrim, minocycline and levofloxacin - f/u on labs and chest x-ray - may need to change line - d/w RN - d/w pharmacy about abx - please see multiple orders - change in abx 2. Trach-vent respiratory failure. 3. Dysphagia, G-tube. 4. Anemia. 5. Diabetes. 6. Hypertension. 7. Large tongue. 8. Anoxic brain injury. 9. Weakness. 10. Poorly responsive. 11. History of seizures. 12. History of colon adenocarcinoma. 13. Skin care protocol. 14. Allergy to crawfish. 15. Social history negative. 16. Family history noncontributory. 17. MAR was noted. 18. Case was discussed with RN. 19. Continue treatment per primary consultants. 20. Orders were ordered, entered, and noted. 21. Continue wound care protocol. 22. Continue blood sugar and blood pressure treatment per primary consultants for diabetes and hypertension. 23. vre colonization and isolation Subjective Constitutional: Reports: fever - lgt , fatigue, other - poorly responsive HEENT: Reports: congestion, other - + trach Respiratory: Reports: shortness of breath, other - + vent Cardiovascular: Reports: other - no Gastrointestinal/Abdominal: Denies: nausea, vomiting, diarrhea Genitourinary: Reports: other Neurologic: Reports: weakness, other - poorly responsive Psychiatric: Reports: other - NA Skin: Reports: other - wounds - covered ; Denies: rash Hematologic: Denies: bleeding Musculoskeletal: Reports: other - NA Allergies: Coded Allergies: Crayfish (Unverified Allergy, Unknown, 11/11/18) Uncoded Allergies: Crawfish (Allergy, Unknown, 11/09/18) Objective Vital Signs Last 24 Hour Vital Signs Date Time Temp Pulse Resp B/P (MAP) Pulse Ox O2 Delivery O2 Flow Rate FiO2 12/10/18 16:00 Mechanical Ventilator 12/10/18 16:00 30 12/10/18 15:49 102 28 30 12/10/18 14:46 106 114/62 12/10/18 13:08 106 26 30 12/10/18 12:00 Mechanical Ventilator 9/22/19 12:00 30 12/10/18 12:00 99.7 101 21 114/62 (79) 98 12/10/18 11:58 92 26 30 12/10/18 11:52 98 12/10/18 09:59 98 26 30 12/10/18 08:56 101 124/65 12/10/18 08:00 30 12/10/18 08:00 98.4 101 21 124/65 (84) 97 12/10/18 08:00 Mechanical Ventilator 12/10/18 07:51 102 12/10/18 07:23 98 26 96 Mechanical Ventilator 30 95 25 30 12/10/18 05:09 106 25 30 12/10/18 05:02 98 139/71 12/10/18 04:00 Mechanical Ventilator 12/10/18 04:00 30 12/10/18 04:00 98.1 102 22 135/69 (91) 100 12/10/18 03:38 105 12/10/18 03:30 92 22 30 12/10/18 01:18 96 21 97 Mechanical Ventilator 30 96 21 30 12/10/18 00:00 94 12/10/18 00:00 30 12/10/18 00:00 98.0 92 22 115/59 (77) 100 12/10/18 00:00 Mechanical Ventilator 12/09/18 23:30 92 27 30 12/09/18 21:30 92 24 30 12/09/18 21:11 96 117/55 12/09/18 20:00 98.2 96 22 117/55 (75) 99 12/09/18 20:00 30 12/09/18 20:00 Mechanical Ventilator 12/09/18 19:30 93 25 97 Mechanical Ventilator 30 93 25 30 12/09/18 19:26 93 12/09/18 16:56 93 23 30 Height (Feet): 5 Height (Inches): 8.00 Weight (Pounds): 242 General Appearance: other - + trach and vent, poorly responsive HEENT: normocephalic, atraumatic, anicteric, no JVD, status post trach Respiratory/Chest: crackles/rales, rhonchi - bilaterally Cardiovascular: normal rate, regular rhythm, no gallop/murmur, no JVD Abdomen: normal bowel sounds, soft, non tender, no organomegaly, non distended Genitourinary: other - + nava - urine slt cloudy Extremities: no cyanosis Skin: no rash Neurologic/Psychiatric: motor weakness, other - poorly responsive Lymphatic: no neck adenopathy Musculoskeletal: no effusion Objective 11/11/18 - chest x-ray - IMPRESSION: 1. Hypoventilatory lungs. Elevated right hemidiaphragm. Slightly improved vascular congestion. Similar bibasilar lung atelectasis and airspace disease. 2. Query right pleural effusion. 2-D echo - no vegetations mentioned, report noted sacral x-ray - no osteo mentioned, report noted 11/14/18 - Technique: One view of the chest Comparison: November 13, 2018 post PICC radiograph Findings: Bilateral interstitial and alveolar edema versus infiltrates appear slightly worse. There is increasing obscuration of left hemidiaphragm, may reflect increasing pleural fluid as well. The heart remains enlarged. Previously demonstrated left arm PICC has been removed. Stable right arm PICC. Impression: Slightly worsening bilateral interstitial and airspace infiltrates versus edema, over one day 11/16/18 - chest x-ray Procedure: XRAY Chest 1v Indication: Dyspnea Technique: One view of the chest Comparison: November 14, 2018 Findings: Bilateral interstitial edema persists. Tracheostomy, right arm PICC remain. The heart is enlarged. Impression: Bilateral interstitial edema, unchanged over [address] abdomen and pelvis: Impression: No definite acute process Diverticulosis. No evidence of diverticulitis Extensive edema of the subcutaneous fat. 2 cm focal fluid collection/edema seen within the incision Moderate amount retained dense stool. Correlate with any clinical history of constipation Hiatal hernia. Gastrostomy Left renal parapelvic cysts Apparent prior hysterectomy Chest x-ray - 11/23/18 - Technique: One view of the chest Comparison: 11/20/2018 Findings: Less optimal inspiration currently, with resultant crowding of the bronchovascular markings. Interstitial congestion is probably not significantly changed, allowing for differences in exposure technique. Tracheostomy remains. Right arm PICC remains. Impression: Unchanged, over 3 days, findings as above. Chest x-ray - 11/26/18 - IMPRESSION: 1. Rotated film. Increased hazy opacity at the left lung and left retrocardiac opacity. 2. Decreased left pleural effusion. 3. Elevated right hemidiaphragm with probable pleural effusion and consolidation, similar. Chest x-ray - 11/30/18 - Findings: Pulmonary edema again demonstrated. PICC line is stable as well as tracheostomy. Heart is enlarged. Basilar atelectasis suspected. The diaphragm is poorly seen. Underlying parenchymal infiltrate or other disease and/or pleural effusion may be present. IMPRESSION: Pulmonary edema Chest x-ray - 12/06/18 - IMPRESSION: Significant worsening of aeration with increased airspace opacities in the right , involving nearly the entire right lung. Although findings may be related to asymmetric pulmonary edema the possibility of pneumonia has to be considered. Clinical correlation and follow-up recommended. Likely layering right-sided pleural effusion. Tracheostomy tube and PICC line remain in place. Chest x-ray - 12/09/18 - FINDINGS: Lungs: Reduced lung volumes with bilateral pulmonary opacities. Retrocardiac atelectasis consolidation. Pleural space: Right pleural effusion. No pneumothorax. Heart: cardiomegaly. Mediastinum: Unremarkable. Bones joints: No acute fracture. Tubes, lines and devices: Right PICC line tip is difficult to delineate, it may cross midline. Tracheostomy. IMPRESSION: 1. Reduced lung volumes with bilateral pulmonary opacities. Could be edema and or pneumonia. There is a broader differential. 2. Right pleural effusion. 3. Right PICC line tip is difficult to delineate, it may cross midline rather than extend into the SVC. Microbiology Date/Time Source Procedure Growth Status 12/06/18 16:15 Blood Blood Culture - Preliminary NO GROWTH AFTER 72 HOURS Resulted 12/06/18 17:45 Sputum Induced Gram Stain - Final Complete 12/06/18 17:45 Sputum Culture - Final A.baumanii Complx - Mdr Providencia Stuartii Complete 12/06/18 17:45 Indwelling Cath Urine Culture - Final Proteus Mirabilis Complete 11/13/18 21:55 Catheter Site Catheter Tip Culture - Final Escherichia Coli Complete Laboratory Tests Test 12/10/18 04:50 White Blood Count 17.8 K/UL (4.8-10.8) H Red Blood Count 3.28 M/UL (4.20-5.40) L Hemoglobin 8.9 G/DL (12.0-16.0) L Hematocrit 26.8 % (37.0-47.0) L Mean Corpuscular Volume 82 FL (80-99) Mean Corpuscular Hemoglobin 27.2 PG (27.0-31.0) Mean Corpuscular Hemoglobin Concent 33.3 G/DL (32.0-36.0) Red Cell Distribution Width 17.0 % (11.6-14.8) H Platelet Count 267 K/UL (150-450) Mean Platelet Volume 6.3 FL (6.5-10.1) L Neutrophils (%) (Auto) 79.4 % (45.0-75.0) H Lymphocytes (%) (Auto) 4.7 % (20.0-45.0) L Monocytes (%) (Auto) 13.8 % (1.0-10.0) H Eosinophils (%) (Auto) 1.0 % (0.0-3.0) Basophils (%) (Auto) 1.1 % (0.0-2.0) Sodium Level 137 MMOL/L (136-145) Potassium Level 3.6 MMOL/L (3.5-5.1) Chloride Level 101 MMOL/L (98-107) Carbon Dioxide Level 25 MMOL/L (21-32) Anion Gap 11 mmol/L (5-15) Blood Urea Nitrogen 30 mg/dL (7-18) H Creatinine 0.9 MG/DL (0.55-1.30) Estimat Glomerular Filtration Rate mL/min (>60) Glucose Level 113 MG/DL (74-106) H Calcium Level 8.9 MG/DL (8.5-10.1) Total Bilirubin 0.7 MG/DL (0.2-1.0) Aspartate Amino Transf (AST/SGOT) 25 U/L (15-37) Alanine Aminotransferase (ALT/SGPT) 26 U/L (12-78) Alkaline Phosphatase 389 U/L (46-116) H Total Protein 6.2 G/DL (6.4-8.2) L Albumin 1.4 G/DL (3.4-5.0) L Globulin 4.8 g/dL Albumin/Globulin Ratio 0.3 (1.0-2.7) L Current Medications Medications (Trade) Dose Ordered Sig/Lupe Route PRN Reason Start Time Stop Time Status Last Admin Dose Admin Acetaminophen (Tylenol) 650 mg Q4H PRN GT Mild Pain/Temp > 100.5 11/09/18 05:00 01/07/19 04:59 11/24/18 21:50 Albuterol/ Ipratropium (Albuterol/ Ipratropium) 3 ml Q4H PRN HHN Shortness of Breath 12/05/18 19:00 12/13/18 18:59 Albuterol/ Ipratropium (Albuterol/ Ipratropium) 3 ml Q6HRT HHN 12/05/18 19:00 12/13/18 18:59 12/10/18 07:32 Amlodipine Besylate (Norvasc) 5 mg DAILY GT 12/05/18 09:00 01/07/19 08:59 12/10/18 08:56 Bisacodyl (Dulcolax) 10 mg DAILY PRN RECTAL Constipation 11/09/18 05:00 01/07/19 04:59 Chlorhexidine Gluconate (Corazon-Hex 2%) 1 applic DAILY@2000 TOPIC 11/12/18 20:00 01/07/19 19:59 12/09/18 20:05 Dextrose (Dextrose 50%) 25 ml Q30M PRN IV Hypoglycemia 11/09/18 04:45 01/07/19 04:44 Dextrose (Dextrose 50%) 50 ml Q30M PRN IV Hypoglycemia 11/09/18 04:45 01/07/19 04:44 11/09/18 09:09 Enoxaparin Sodium (Lovenox) 40 mg DAILY SUBQ 11/09/18 09:00 01/07/19 08:59 12/10/18 09:00 Famotidine (Pepcid) 20 mg EVERY 12 HOURS GT 11/09/18 21:00 01/07/19 20:59 12/10/18 08:56 Furosemide (Lasix) 40 mg EVERY 12 HOURS IV 12/04/18 21:00 01/03/19 20:59 12/10/18 08:55 Insulin Aspart (NovoLOG) Q6HR SUBQ 11/09/18 06:00 01/07/19 05:59 12/08/18 23:05 Insulin Detemir (Levemir) 4 units EVERY 12 HOURS SUBQ 11/16/18 21:00 01/07/19 20:59 12/10/18 09:01 Labetalol HCl (Normodyne) 200 mg Q8HR GT 11/09/18 06:00 01/07/19 05:59 12/10/18 14:46 Lactulose (Cephulac) 10 gm THREE TIMES A DAY GT 11/27/18 18:00 01/07/19 17:59 12/10/18 12:57 Levetiracetam (Keppra) 1,500 mg Q12HR GT 11/09/18 09:00 01/07/19 08:59 12/10/18 09:28 Levofloxacin (Levaquin) 500 mg DAILY ORAL 12/10/18 09:00 12/17/18 08:59 12/10/18 08:56 Magnesium Hydroxide (Mom) 30 ml DAILY PRN GT Constipation 11/09/18 05:00 01/07/19 04:59 Metoclopramide HCl (Reglan) 5 mg Q8H PRN IVP Nausea & Vomiting 12/10/18 15:45 01/09/19 15:44 Minocycline HCl (Minocin) 100 mg Q12HR ORAL 12/10/18 09:00 12/17/18 08:59 Minocycline HCl (Minocin) 200 mg ONCE ORAL 12/10/18 16:00 12/10/18 17:00 Ondansetron HCl (Zofran) 4 mg Q6H PRN GT Nausea & Vomiting 11/09/18 05:00 01/07/19 04:59 Phenobarbital (PHENobarbital) 60 mg BID GT 11/09/18 09:00 01/07/19 08:59 12/10/18 08:55 Phenytoin (Dilantin) 100 mg Q8HR GT 11/09/18 06:00 01/07/19 05:59 12/10/18 14:45 Polyethylene Glycol (Miralax) 17 gm DAILYPRN PRN GT Constipation 11/14/18 10:30 01/07/19 10:29 Sennosides (Senokot) 8.6 mg EVERY 12 HOURS GT 11/09/18 21:00 01/07/19 20:59 12/10/18 08:56 Trimethoprim/ Sulfamethoxazole (Bactrim-DS) 20 ml EVERY 12 HOURS GT 12/11/18 09:00 12/18/18 08:59 Trimethoprim/ Sulfamethoxazole (Bactrim-DS) 20 ml ONCE GT 12/10/18 16:00 12/10/18 17:00 Dasha Crews MD Dec 10, 2018 16:36
--- NOTE | 2018-12-10 19:30 | NUR ---
NURSE NOTES: Received report from Mirella Olvera RN, pt. in bed obtunded, opens eyes- non-verbal, monitor technician on, no signs or symptoms of acute cardiac or respiratory distress noted, bed in lowest position and call light within easy reach, bed locked in position and side rails up x's3, pt. appears to be resting comfortably in bed- comfort measures provided,Ospina intact and draining to gravity, Pt. appears to be clean and dry, comfort measures provided, repositioned and turned pt., pt. appears to be tolerating current vent settings well- AC 14, TV 375, Fio2 @30% and peep 5- no distress noted, Side rails padded for seizure precautions- no seizure activity noted, Glucerna 1.2 not running via G tube at 65cc/hr- due to high residuals- residual now is 230- will continue to hold feeding and monitor residuals, KAITLYNN PICC intact and patent- TKO, Safety measures continued, will continue with plan of care.
--- NOTE | 2018-12-10 19:51 | NUR ---
HAND-OFF: Report given to Luis DESHPANDE. Pt remain stable.
--- NOTE | 2018-12-10 19:56 | NUR ---
HAND-OFF: Report given to CHARLEE Harris.
[2018-12-10 20:00] VITALS: BP 106/62
[2018-12-10] MEDS: Dyna-Hex 2% Top Sol 2oz TOPIC SCH (20:58)
[2018-12-10] MEDS ORDERED: Polymyxin B Sulfate 500,000 UNITS in D5W 500ml 500 ML IVPB SCH (21:00)
[2018-12-10] MEDS ORDERED: POLYMYXIN B SULFATE IVPB SCH (21:00)
[2018-12-10] MEDS ORDERED: SODIUM CHLORIDE IVPB SCH (21:00)
--- NOTE | 2018-12-10 21:10 | General Progress Note ---
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 SNOMED: 79873371 (6) Anoxic brain damage ICD Codes: G93.1 - Anoxic brain damage, not elsewhere classified SNOMED: 618919948 (7) Colon adenocarcinoma ICD Codes: C18.9 - Malignant neoplasm of colon, unspecified SNOMED: 707743899 (8) Ventilator dependence ICD Codes: Z99.11 - Dependence on respirator [ventilator] status SNOMED: 947435072 (9) Tracheostomy dependence ICD Codes: Z93.0 - Tracheostomy status SNOMED: 464249493 (10) Fever ICD Codes: R50.9 - Fever, unspecified SNOMED: 666596946 (11) Sepsis ICD Codes: A41.9 - Sepsis, unspecified organism SNOMED: 88811464 (12) UTI (urinary tract infection) ICD Codes: N39.0 - Urinary tract infection, site not specified SNOMED: 47874865 (13) Decubitus skin ulcer ICD Codes: L89.90 - Pressure ulcer of unspecified site, unspecified stage SNOMED: 346015593 (14) Protein calorie malnutrition ICD Codes: E46 - Unspecified protein-calorie malnutrition SNOMED: 688449267 (15) Abnormal LFTs ICD Codes: R94.5 - Abnormal results of liver function studies SNOMED: 892084685 (16) MRSA (methicillin resistant staphylococcus aureus) pneumonia ICD Codes: J15.212 - Pneumonia due to Methicillin resistant Staphylococcus aureus SNOMED: 232642174122160 (17) Drug rash ICD Codes: L27.0 - Generalized skin eruption due to drugs and medicaments taken internally SNOMED: 60623125 (18) Bacteremia ICD Codes: R78.81 - Bacteremia SNOMED: 0329820 (19) Gram-negative pneumonia ICD Codes: J15.6 - Pneumonia due to other Gram-negative bacteria SNOMED: 304813331 (20) Line sepsis ICD Codes: T85.79XA - Infection and inflammatory reaction due to other internal prosthetic devices, implants and grafts, initial encounter; A41.9 - Sepsis, unspecified organism SNOMED: 52196011, 291897146 (21) Hyponatremia ICD Codes: E87.1 - Hypo-osmolality and hyponatremia SNOMED: 18267545 (22) Hypokalemia ICD Codes: E87.6 - Hypokalemia SNOMED: 10101198 Status: stable Assessment/Plan: 78-year-old female who is trach dependent who was brought in by [facility] for sepsis and found to have UTI and bacteremia. prolonged hospital course, multiple courses of antibiotics now with new HCAP. #new HCAP, aspiration pna risk, chest x-ray worse, leukocytosis, sepsis, hx wounds and surgery management, hx fevers, hx line infection, hx gram neg multi drug resistant pna, hx uti, s/p fungemia treatment - IMPROVING - Continue antibiotics - polymyxin, Levaquin, micafungin, flagyl per ID - recheck cultures, labs and f/u chest x-ray. wbc rising. urine with gram negative bacilli, blood cultures negative to date. sputum culture pending. -d/w Dr. 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 Benavides ONLY bite block MOLT if available to decompress the tongue and get the remainder teeth out of the tongue way. Keep moisture in the lips and tongue. Tongue has too much edema and will need to decrease in size before considering possible suture? Decadron can be used but in the setting of active infection the risk of steroids outweighs benefits ENT consult: no invervention at this time due to edema. Explained to sister Anika extensively regarding situation with tongue and inability to do anything at this time. #hyponatremia, hypotonic. Intravascularly depleted vs SIADH. Improving. Continue lasix 40mg BID. Nephrology consult Dr. Sommers # Transaminitis - worsening, meds vs passive congestion. improving - trend lft's - GI consult, appreciate recs - ab us: reviewed - hep panel negative #Elevated troponin secondary to sepsis versus ACS Cardiology consult, appreciate recs Medications per cardiology #Microcytic anemia- mixed anemia of chronic inflammation and iron deficiency. Start ferrous sulfate TID , transfused 1 uprbc 11/27. and another unit prbc today 12/05. #Hypertension- improved Continue current medications, hydralazine as needed hypertension. Amlodipine dose reduced due to borderline BP #Vent dependent Pulmonary consult, appreciate recs Vent management per pulmonary #Hypokalemia, hypophosphatemia, hypomagnesemia Replace, continue to monitor # History of mood disorder Seen by psychiatry and on Depakote. Level was checked # Seizure history - Discussed with Dr. Eric who knew the patient from [facility] and confirmed that she did have seizure activity and was on multiple AED regimen. - Will continue Depakote ( 28 level ) and (Phenytoin 4.3 ) - no active seizure activity at this time. Keep current dose. - Both Dr. Eric and Mariana not available to come to [facility] for consult and not acute need at this time. #Diabetes Mellitus, controlled - Levemir 4 units q 12 hours #Goals of care Explained poor prognosis. Mixed feelings among family (other sisters) regarding whether to continue treatment or not. Suggested family meeting this week to discuss options and prognosis. Anika will attempt to organize meeting. # Disposition - SNF when cleared by ID. Full code timing of this note may not reflect time of encounter. I spent 37 minutes on this encounter. Great than 50 percent spent of care planning. I spent an additional 17 minutes discussing goals of care with sister Anika. See above. . Subjective Date patient seen: Dec 10, 2018 ROS Limited/Unobtainable: Yes Allergies: Coded Allergies: Crayfish (Unverified Allergy, Unknown, 11/11/18) Uncoded Allergies: Crawfish (Allergy, Unknown, 11/09/18) Subjective No acute events overnight. No vent changes. Patient's tongue further lacerated. Has a tendency to continue to bite down on the tongue when coughing. Unable to place bite-block due to large tongue. no bleeding or discharge noted. Further subjective history unable to be obtained. Goals of care discussion with family later in day (see A/P). . Objective Last 24 Hour Vital Signs Date Time Temp Pulse Resp B/P (MAP) Pulse Ox O2 Delivery O2 Flow Rate FiO2 12/10/18 20:00 Mechanical Ventilator 12/10/18 20:00 30 12/10/18 20:00 99.1 100 19 106/62 (77) 100 12/10/18 19:37 105 29 100 Mechanical Ventilator 30 104 28 30 12/10/18 17:53 97 25 98 Mechanical Ventilator 30 12/10/18 17:30 97 31 30 12/10/18 16:00 Mechanical Ventilator 12/10/18 16:00 99.3 105 21 127/67 (87) 99 12/10/18 16:00 30 12/10/18 15:49 102 28 30 12/10/18 15:33 102 12/10/18 14:46 106 114/62 12/10/18 13:08 106 26 30 12/10/18 12:00 Mechanical Ventilator 12/10/18 12:00 30 12/10/18 12:00 99.7 101 21 114/62 (79) 98 12/10/18 11:58 92 26 30 12/10/18 11:52 98 12/10/18 09:59 98 26 30 12/10/18 08:56 101 124/65 12/10/18 08:00 30 12/10/18 08:00 98.4 101 21 124/65 (84) 97 12/10/18 08:00 Mechanical Ventilator 12/10/18 07:51 102 12/10/18 07:23 98 26 96 Mechanical Ventilator 30 95 25 30 12/10/18 05:09 106 25 30 12/10/18 05:02 98 139/71 12/10/18 04:00 Mechanical Ventilator 12/10/18 04:00 30 12/10/18 04:00 98.1 102 22 135/69 (91) 100 12/10/18 03:38 105 12/10/18 03:30 92 22 30 12/10/18 01:18 96 21 97 Mechanical Ventilator 30 96 21 30 12/10/18 00:00 94 12/10/18 00:00 30 12/10/18 00:00 98.0 92 22 115/59 (77) 100 12/10/18 00:00 Mechanical Ventilator 12/09/18 23:30 92 27 30 12/09/18 21:30 92 24 30 12/09/18 21:11 96 117/55 Intake and Output 12/09/18 12/10/18 19:00 07:00 Intake Total 155 ml 550 ml Output Total 1050 ml 1400 ml Balance -895 ml -850 ml Intake Free Water 50 ml IV Total 550 ml Tube Feeding 105 ml Output Urine Total 1050 ml 1400 ml # Bowel Movements 1 Laboratory Tests 12/10/18 04:50: White Blood Count 17.8H, Red Blood Count 3.28L, Hemoglobin 8.9L, Hematocrit 26.8L, Mean Corpuscular Volume 82, Mean Corpuscular Hemoglobin 27.2, Mean Corpuscular Hemoglobin Concent 33.3, Red Cell Distribution Width 17.0H, Platelet Count 267, Mean Platelet Volume 6.3L, Neutrophils (%) (Auto) 79.4H, Lymphocytes (%) (Auto) 4.7L, Monocytes (%) (Auto) 13.8H, Eosinophils (%) (Auto) 1.0, Basophils (%) (Auto) 1.1, Sodium Level 137, Potassium Level 3.6, Chloride Level 101, Carbon Dioxide Level 25, Anion Gap 11, Blood Urea Nitrogen 30H, Creatinine 0.9, Estimat Glomerular Filtration Rate , Glucose Level 113H, Calcium Level 8.9, Total Bilirubin 0.7, Aspartate Amino Transf (AST/SGOT) 25, Alanine Aminotransferase (ALT/SGPT) 26, Alkaline Phosphatase 389H, Total Protein 6.2L, Albumin 1.4L, Globulin 4.8, Albumin/Globulin Ratio 0.3L Height (Feet): 5 Height (Inches): 8.00 Weight (Pounds): 242 General Appearance: WD/WN, alert, other - on ventilator EENT: PERRL/EOMI, other - enlarged tongue with midline laceration tongue in two. Or secretions noted but no purulence or bleeding. Unable to close mouth due to size of tongue. Worse compared to yesterday. Neck: non-tender, normal alignment Cardiovascular: normal peripheral pulses, normal rate, regular rhythm, no JVD Respiratory/Chest: chest wall non-tender, other - coarse breath sounds bilaterally, no wheezing Abdomen: normal bowel sounds, non tender, soft, no organomegaly, no mass Edema: other - diffuse 3+ pitting edema in UE and LE bilatearlly Neurologic: heel sander rubber II-XII grossly normal, no motor/sensory deficits, alert, other - no focal signs noted. withdraws from pain Skin: normal pigmentation, warm/dry Navneet You D.O. Dec 10, 2018 21:10
[2018-12-11] VITALS (78 sets, daily range): BP systolic 55–165; BP diastolic 20–73
[2018-12-11] MEDS: Albuterol/Ipratropium 3ml neb HHN SCH ×4 (02:14→19:17)
--- NOTE | 2018-12-11 04:30 | NUR ---
CODE BLUE: See Code sheet which remains on paper.
[2018-12-11] MEDS: Acetaminophen 650mg/20.3ml GT PRN ×2 (04:34→09:22)
--- NOTE | 2018-12-11 04:39 | NUR ---
NURSE NOTES: Patient showing 35 for heart rate on monitor- went to asses patient - heart rate dropping Rapid response called- with seconds patient went to asystole- CPR initiated- code blue called- see code blue sheet.
--- NOTE | 2018-12-11 04:40 | NUR ---
RESPIRATORY NOTE: CHARLEE Harris called to room to check pt. Pt became asystole shortly after and coded. Compressions started. Meds were given. Was able to resuscitate pt. Transferred pt to ICU. Placed pt back on vent with Dr. Sykes newly ordered vent settings of AC/VC 15, 600, 100% FiO2, PEEP +5. Will continue to monitor.
[2018-12-11 04:45] LABS: HEMATOCRIT 26.5 % (37.0-47.0); HEMOGLOBIN 8.8 G/DL (12.0-16.0); MEAN CORPUSCULAR VOLUME 83 FL (80-99); PLATELET COUNT 203 K/UL (150-450); RED BLOOD COUNT 3.21 M/UL (4.20-5.40); RED CELL DISTRIBUTION WIDTH 16.5 % (11.6-14.8); WHITE BLOOD COUNT 11.7 K/UL (4.8-10.8)
--- NOTE | 2018-12-11 05:00 | NUR ---
NURSE NOTES: left message for DR. Buck- spoke with Jose at exchange, she will bianca doctor.
--- NOTE | 2018-12-11 05:00 | NUR ---
NURSE NOTES: patient came to ICU post code at this time. Trach to vent on AC 14, Vt 375, peep 5 fio2 30%. Shiley 8. GT connected to low continuos suction as per ER MD post code. Patient had been NPO for two days now. KAITLYNN picc line running levophed at 30 mcg/min. Ospina cath draining by gravity. Sinus garcia on the moment. Will continue to monitor
--- NOTE | 2018-12-11 05:05 | NUR ---
CODE BLUE: See Code sheet which remains on paper.
--- NOTE | 2018-12-11 05:05 | NUR ---
NURSE NOTES: Spoke with patients daughter Osmar- made aware of patients condition and that patient was transferred to ICU. Notified her that ICU will notify her of any new changes.
--- NOTE | 2018-12-11 05:05 | NUR ---
RESPIRATORY NOTE: Pt began to lose pulse once again and coded. Compressions started. Meds were given. Was able successfully resuscitate. Placed back on vent. Will continue to monitor.
[2018-12-11] MEDS ORDERED: Albuterol/Ipratropium 3ml neb HHN PRN (05:13)
[2018-12-11] MEDS ORDERED: Metoclopramide 10mg/2ml Inj IVP PRN (05:15)
[2018-12-11] MEDS ORDERED: Milk of Magnesia 30ml Ud GT PRN (05:15)
[2018-12-11] MEDS ORDERED: Miralax 17gm pkt GT PRN (05:17)
--- NOTE | 2018-12-11 05:17 | NUR ---
NURSE NOTES: Spoke with DR. Thomson, updated him on patients condition and that patient has been transferred to ICU- he is aware and stated he already spoke with DR. Sykes from ER. No new orders given by doctor.
[2018-12-11 05:23] LABS: ANION GAP 13 mmol/L (5-15); BLOOD UREA NITROGEN 37 mg/dL (7-18); CALCIUM 8.8 MG/DL (8.5-10.1); CARBON DIOXIDE 25 MMOL/L (21-32); CHLORIDE 104 MMOL/L (98-107); CREATININE 1.3 MG/DL (0.55-1.30); POTASSIUM 3.5 MMOL/L (3.5-5.1); SODIUM 142 MMOL/L (136-145)
--- NOTE | 2018-12-11 05:40 | NUR ---
NURSE NOTES: report given to Kelly alexander RN, and aware daughter Ranjana has been notified of transfer and also DR. Briceño is aware of transfer- who is covering for DR. Buck.
--- NOTE | 2018-12-11 05:40 | NUR ---
NURSE NOTES: ROSC after second code. Patient unstable to move for picture at this time. Will endorse to next shift
--- NOTE | 2018-12-11 05:46 | NUR ---
NURSE NOTES: Called MD Buck at this time for post code patient x2. awaiting call back
[2018-12-11] MEDS: Phenytoin Susp 100mg/4ml GT SCH ×3 (06:00→22:22)
[2018-12-11] MEDS: Magic Mouth Wash 60ml (Benadryl/Mylanta/Visc Lido) ORAL SCH ×3 (06:00→22:46)
[2018-12-11] MEDS: Labetalol 200mg tab GT SCH ×3 (06:00→22:00)
[2018-12-11] MEDS: NovoLOG Insulin Flexpen SUBQ SCH ×4 (06:00→18:00)
--- NOTE | 2018-12-11 06:06 | NUR ---
NURSE NOTES: Spoke with covering physician for He[place]. Informed him patient is post code x2. On levophed and dopamine at this time. With dopamine patient HR 133. Raymond ordered and dopamine to me turned off. Ordered to also contact MD Dejesus for critical care management. orders rad back and confirmed by .
--- NOTE | 2018-12-11 06:11 | NUR ---
NURSE NOTES: Called and left message for MD Dejesus at this time in regards to patient. awaiting call back
[2018-12-11] MEDS ORDERED: Phenylephrine 50 MG in D5W 245 ML IV SCH (06:15)
--- NOTE | 2018-12-11 06:19 | Emergency Room Report ---
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 She was admitted to stepdown for sepsis secondary to pneumonia, most likely aspiration. I responded to a CODE BLUE. Per nursing staff, she had respiratory distress and vomiting and then became bradycardic and then asystole. On my arrival patient had CPR initiated. She received 1 mg of epinephrine. During this code, she received a total of 3 mg of epinephrine. After second epinephrine, she went into V. fib/V. tach. I defibrillated her at 200 J. She went into asystole and after third epinephrine , spontaneous return of pulse. During the code, she has copious amount of bilious vomitus. After she had spontaneous return of pulse, she was transferred to ICU. I started her on Levophed. When she was in ICU she coded again. Again she had a total of 3 mg of epinephrine. During CPR, she had V. fib V. tach again. She was defibrillated again once. After third epinephrine she had a pulse. Started on dopamine. I contacted primary care doctor who will take over the care. Allergies: Coded Allergies: Crayfish (Unverified Allergy, Unknown, 11/11/18) Uncoded Allergies: Crawfish (Allergy, Unknown, 11/09/18) Patient History Last Menstrual Period: n/a Nursing Documentation-[facility] Past Medical History: No History, Except For Hx Cardiac Problems: Yes Hx Hypertension: Yes Hx Diabetes: Yes - Type 2 Hx Cancer: Yes - malignant neoplasm of overlapping site of colon Hx Gastrointestinal Problems: Yes - gastrostomy status Hx Neurological Problems: Yes - anoxic brain damage Hx Encephalitis: Yes - Encephalopathy Hx Seizures: Yes Review of Systems Respiratory: Reports: shortness of breath Physical Exam Vital Signs Date Time Temp Pulse Resp B/P (MAP) Pulse Ox O2 Delivery O2 Flow Rate FiO2 12/07/18 07:47 90 25 Mechanical Ventilator 30 30 12/07/18 07:57 100 12/07/18 07:57 98.7 105/57 (73) General Appearance: severe distress, obese ENT: other - Pharynx with enlarged tongue that is split down the middle. She has copious amount of bilious vomitus. Neck: other - Tracheostomy tube intact. Bilious vomitus from trach. Respiratory: other - Spontaneous respiration. Respiration with [id number]. Cardiovascular #1: other - No pulse without CPR. Gastrointestinal: other - She had laparotomy scar. Musculoskeletal: swelling Neurologic: other - No response Skin: no rash Procedures CPR/Code Blue CPR/Code Blue Narrative Please see CODE BLUE sheet for full information. Patient had 2 CODE BLUE. In each code, she received 3 mg epinephrine and 1 defibrillation of 200 J. Medical Decision Making Diagnostic Impression: Primary Impression: Cardiac arrest Additional Impression: Aspiration into airway Qualified Codes: T17.908A - Unspecified foreign body in respiratory tract, part unspecified causing other injury, initial encounter ER Course With cardiac arrest. This is probably secondary to aspiration and respiratory arrest. Chest x-ray showed increasing right sided opacification. Prognosis poor. I discussed the case with Dr. Pope who will cont care. Chest X-Ray Diagnostic Results Chest X-Ray Diagnostic Results : Chest X-Ray Ordered: Yes # of Views/Limited/Complete: 1 View Indication: Shortness of Breath EP Interpretation: Yes Interpretation: no pneumothorax, other - Right-sided pulmonary whiteout. Cardiomegaly. Impression: Other - Worsening right-sided infiltrate/effusion. Electronically Signed by: Cristiano Sykes MD Last Vital Signs Date Time Temp Pulse Resp B/P (MAP) Pulse Ox O2 Delivery O2 Flow Rate FiO2 12/11/18 04:00 30 12/11/18 04:00 101.8 12/11/18 04:00 Mechanical Ventilator 12/11/18 03:43 114 12/11/18 03:32 34 12/11/18 02:15 97 12/11/18 00:00 109/56 (73) Status: worsened Disposition: ADMITTED INPATIENT Condition: Critical Referrals: NON PHYSICIAN (PCP) Cristiano Sykes MD Dec 11, 2018 06:19
--- NOTE | 2018-12-11 06:29 | Diagnostic Imaging Report ---
Indication: Dyspnea Comparison: 12/09/2018 A single view chest radiograph was obtained. Findings: There is evidence of probable new infiltrate in the right upper lobe and right perihilar region. Tracheostomy again demonstrated. In addition there are mixed interstitial alveolar densities bilaterally. Cardiomegaly is present. A right PICC line is present in good position with the tip projected over the innominate vein. IMPRESSION: Worsening infiltrates likely new within the right upper lobe and perihilar region. Other superimposed infiltrates versus pulmonary edema again noted.
--- NOTE | 2018-12-11 07:05 | NUR ---
HAND-OFF: Report given to Gertrudis Nick and Val DESHPANDE using SBAR.
--- NOTE | 2018-12-11 07:47 | NUR ---
NURSE NOTES: Report received from CHARLEE Mendoza. Pt is observed laying in bed, obtunded, non responsive, S/P code x2. Trach to vent on AC 14, Vt 375, peep 5 fio2 30%. Shiley 8. G Tube connected to low continuos suction as per MD order. KAITLYNN picc line noted, patent and asymptomatic. Running Levophed at 30 mcg/min and Phenylephrine 240 mcg/min. Ospina catheter noted, draining by gravity. Sinus tachycardia, 115, noted on security monitor. Temp: 101.8, cooling measures initiated. Will resume plan of care.
[2018-12-11] MEDS ORDERED: PHENobarbital Elixir 30mg/7.5ml GT SCH (09:00)
[2018-12-11] MEDS ORDERED: Bactrim Susp 20ml GT SCH ×2 (09:00)
[2018-12-11] MEDS ORDERED: Minocycline HCl 50mg cap ORAL SCH ×2 (09:00)
[2018-12-11] MEDS ORDERED: POLYMYXIN B SULFATE IVPB SCH (09:00)
[2018-12-11] MEDS ORDERED: SODIUM CHLORIDE IVPB SCH (09:00)
[2018-12-11] MEDS: Levemir Flexpen SUBQ SCH ×2 (09:00→20:51)
--- NOTE | 2018-12-11 09:19 | NUR ---
RADIOLOGY DEPT., CHEST X-RAY DONE.-P.DYE
[2018-12-11] MEDS: Lactulose 10gm/15ml UDC GT SCH ×3 (09:23→18:15)
[2018-12-11] MEDS: levETIRAcetam 500mg/5ml Liquid GT SCH ×2 (09:23→20:51)
[2018-12-11] MEDS: Sennosides 8.6mg tab GT SCH ×2 (09:26→20:51)
--- NOTE | 2018-12-11 09:28 | General Progress Note ---
Assessment/Plan Problem List: (1) Cardiac arrest ICD Codes: I46.9 - Cardiac arrest, cause unspecified SNOMED: 395173117 (2) Gram-negative pneumonia ICD Codes: J15.6 - Pneumonia due to other Gram-negative bacteria SNOMED: 880767827 (3) MRSA (methicillin resistant staphylococcus aureus) pneumonia ICD Codes: J15.212 - Pneumonia due to Methicillin resistant Staphylococcus aureus SNOMED: 634491546390125 (4) Fever ICD Codes: R50.9 - Fever, unspecified SNOMED: 724622926 (5) UTI (urinary tract infection) ICD Codes: N39.0 - Urinary tract infection, site not specified SNOMED: 15342801 (6) Tracheostomy dependence ICD Codes: Z93.0 - Tracheostomy status SNOMED: 569683402 (7) Ventilator dependence ICD Codes: Z99.11 - Dependence on respirator [ventilator] status SNOMED: 321492715 (8) Protein calorie malnutrition ICD Codes: E46 - Unspecified protein-calorie malnutrition SNOMED: 108988518 (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 SNOMED: 97045209 (10) Drug rash ICD Codes: L27.0 - Generalized skin eruption due to drugs and medicaments taken internally SNOMED: 60244005 (11) Line sepsis ICD Codes: T85.79XA - Infection and inflammatory reaction due to other internal prosthetic devices, implants and grafts, initial encounter; A41.9 - Sepsis, unspecified organism SNOMED: 83458952, 911865535 (12) Bacteremia ICD Codes: R78.81 - Bacteremia SNOMED: 4434643 (13) Hyponatremia ICD Codes: E87.1 - Hypo-osmolality and hyponatremia SNOMED: 28380154 (14) Sepsis ICD Codes: A41.9 - Sepsis, unspecified organism SNOMED: 73992132 (15) Seizure disorder ICD Codes: G40.909 - Epilepsy, unspecified, not intractable, without status epilepticus SNOMED: 826600331 (16) Diabetes ICD Codes: E11.9 - Type 2 diabetes mellitus without complications SNOMED: 99648637 (17) Colon adenocarcinoma ICD Codes: C18.9 - Malignant neoplasm of colon, unspecified SNOMED: 722655584 (18) Anoxic brain damage ICD Codes: G93.1 - Anoxic brain damage, not elsewhere classified SNOMED: 622440420 (19) Decubitus skin ulcer ICD Codes: L89.90 - Pressure ulcer of unspecified site, unspecified stage SNOMED: 619680340 (20) Aspiration into airway ICD Codes: T17.908A - Unspecified foreign body in respiratory tract, part unspecified causing other injury, initial encounter SNOMED: 500838401 Qualifiers: Qualified Codes: T17.908A - Unspecified foreign body in respiratory tract, part unspecified causing other injury, initial encounter (21) Abnormal LFTs ICD Codes: R94.5 - Abnormal results of liver function studies SNOMED: 647707233 Status: stable Assessment/Plan: 78-year-old female who is trach dependent who was brought in by longterm for sepsis and found to have UTI and bacteremia. prolonged hospital course, multiple courses of antibiotics developed HCAP, then aspirated g tube contents and had a PEA arrest, coded x3, ROSC. In ICU. #Cardiac arrest, shock. I saw the patient in the ICU after her cardiac arrest. Daughter Treasure and Anika at bedside. continue on pressors, monitor HR/BP, discontinue lasix. Adjust fio2 as needed Family meeting today with daughters Anika and Verenice, SW Sherice. Extensive discussion regarding goals of care. Family updated. Would like to keep patient full code for the time being. Pulm.crit consult for vent management, Dr. Dejesus d/w RN # Vent dependent. providencia/acinetobacter pna, proteus uti, sepsis, leukocytosis, fevers, hx wounds per surgery management, + picc line, blood cultures remain negative. possible aspiration event and worsening pna on chest x -ray - polymyxin, cefepime, vancomycin, Flagyl, levofloxacin - re-check cultures - f/u on labs and chest x-ray - poor prognosis -d/w Dr. Goodwin -d/w Dr. Dejesus -Vent management per pulmonary #hyponatremia resolved. Intravascularly depleted vs SIADH. Improving. Nephrology consult Dr. Sommers. DC lasix now that in shock. # Transaminitis - worsening, meds vs passive congestion. Hepatitis panel negative. GI consult on board. Microcytic anemia- mixed anemia of chronic inflammation and iron deficiency. ferrous sulfate TID , transfused 1 uprbc 11/27. and another unit prbc 12/05. #Hypertension- now on pressors. Hold all antihypertensives #Decubitus ulcer. Managed by Dr. Hylton # tongue laceration, hematoma and edema, placed back in by Dr. Hylton. Patient however continues to clench and bite down #Feeds via PEG: Hold #Seizure: phenytoin and keppra. Phonobarb #GOC: had a family meeting with daughters and POP Smiley. Extensive conversation reg goals of care and code status. Remains full code. prognosis poor I spent 40 minutes of critical care time at bedside. I spent 35 minutes advance care planning with family. Time of note may not reflect time of encounter. Subjective Date patient seen: Dec 11, 2018 ROS Limited/Unobtainable: Yes Allergies: Coded Allergies: Crayfish (Unverified Allergy, Unknown, 11/11/18) Uncoded Allergies: Crawfish (Allergy, Unknown, 11/09/18) Subjective Acute events overnight: Increased residuals, vomited, PEA arrest, code x 3 with ROSC Transferred to ICU NE 3 JENNI 240 T max 101.8 Objective Last 24 Hour Vital Signs Date Time Temp Pulse Resp B/P (MAP) Pulse Ox O2 Delivery O2 Flow Rate FiO2 12/11/18 09:06 109 24 100 12/11/18 07:22 94/43 12/11/18 06:54 113 15 100 12/11/18 06:40 115 15 94/43 (60) 99 12/11/18 06:35 125 15 102/43 (62) 99 12/11/18 06:30 132 15 98/52 (67) 89 12/11/18 06:30 132 94/42 12/11/18 06:25 132 21 101/47 (65) 89 12/11/18 06:20 132 15 94/42 (59) 100 12/11/18 06:15 132 15 96/45 (62) 99 12/11/18 06:10 132 15 101/43 (62) 12/11/18 06:05 131 15 93/46 (62) 99 12/11/18 06:00 132 96/45 12/11/18 06:00 131 15 95/44 (61) 99 12/11/18 05:55 130 15 99/43 (61) 98 12/11/18 05:50 130 15 96/45 (62) 98 12/11/18 05:45 129 15 95/44 (61) 97 12/11/18 05:40 122 16 90/43 (59) 90 12/11/18 05:40 134 26 30 12/11/18 05:36 101 20 76/41 (53) 78 12/11/18 05:35 96 19 67/35 (46) 78 12/11/18 05:30 97 16 55/32 (40) 90 12/11/18 05:25 104 16 68/34 (45) 90 12/11/18 05:20 121 15 81/48 (59) 90 12/11/18 05:15 137 13 104/62 (76) 90 12/11/18 05:14 140 4 129/53 (78) 90 12/11/18 05:12 140 17 145/58 (87) 90 12/11/18 05:10 111 19 165/66 (99) 90 12/11/18 05:05 13 12 68/20 (36) 100 12/11/18 05:01 99.6 24 14 81/45 (57) 100 12/11/18 04:52 61/32 12/11/18 04:00 30 12/11/18 04:00 101.8 12/11/18 04:00 Mechanical Ventilator 12/11/18 03:43 114 12/11/18 03:32 112 34 30 12/11/18 02:15 111 32 97 Mechanical Ventilator 30 12/11/18 01:16 117 30 30 12/11/18 00:00 98.2 95 21 109/56 (73) 96 12/11/18 00:00 114 12/11/18 00:00 30 12/11/18 00:00 Mechanical Ventilator 12/10/18 23:13 110 32 30 12/10/18 21:29 106 25 30 12/10/18 21:08 91 106/62 12/10/18 20:00 99 12/10/18 20:00 Mechanical Ventilator 12/10/18 20:00 30 12/10/18 20:00 99.1 100 19 106/62 (77) 100 12/10/18 19:37 105 29 100 Mechanical Ventilator 30 104 28 30 12/10/18 17:53 97 25 98 Mechanical Ventilator 30 12/10/18 17:30 97 31 30 12/10/18 16:00 Mechanical Ventilator 12/10/18 16:00 99.3 105 21 127/67 (87) 99 12/10/18 16:00 30 12/10/18 15:49 102 28 30 12/10/18 15:33 102 12/10/18 14:46 106 114/62 12/10/18 13:08 106 26 30 12/10/18 12:00 Mechanical Ventilator 12/10/18 12:00 30 12/10/18 12:00 99.7 101 21 114/62 (79) 98 12/10/18 11:58 92 26 30 12/10/18 11:52 98 12/10/18 09:59 98 26 30 Intake and Output 12/10/18 12/11/18 19:00 07:00 Intake Total 200 ml 947.5 ml Output Total 1000 ml Balance -800 ml 947.5 ml Intake Free Water 200 ml IV Total 947.5 ml Output Urine Total 1000 ml Laboratory Tests 12/11/18 03:25: White Blood Count 11.7H, Red Blood Count 3.21L, Hemoglobin 8.8L, Hematocrit 26.5L, Mean Corpuscular Volume 83, Mean Corpuscular Hemoglobin 27.3, Mean Corpuscular Hemoglobin Concent 33.1, Red Cell Distribution Width 16.5H, Platelet Count 203, Mean Platelet Volume 6.1L, Neutrophils (%) (Auto) , Lymphocytes (%) (Auto) , Monocytes (%) (Auto) , Eosinophils (%) (Auto) , Basophils (%) (Auto) , Sodium Level 142, Potassium Level 3.5, Chloride Level 104 , Carbon Dioxide Level 25, Anion Gap 13, Blood Urea Nitrogen 37H, Creatinine 1.3 , Estimat Glomerular Filtration Rate , Glucose Level 87, Calcium Level 8.8 12/11/18 07:45: Arterial Blood pH 7.186*L, Arterial Blood Partial Pressure CO2 40.2, Arterial Blood Partial Pressure O2 85.0, Arterial Blood HCO3 14.9*L, Arterial Blood Oxygen Saturation 93.1L, Arterial Blood Base Excess -12.6*L, Harsh Test Positive Height (Feet): 5 Height (Inches): 8.00 Weight (Pounds): 239 Objective General Appearance: no apparent distress, other - unresponsive on vent EENT: PERRL/EOMI, other -, lower lip severely swollen, tongue enlarged however placed back in by surgeon Neck: supple Cardiovascular: normal rate, regular rhythm, 1+ edema Respiratory/Chest: Rhonchi Abdomen: soft Neurologic: unresponsive Skin: Decubitus ulcers Neftaly Walters M.D. Dec 11, 2018 09:28
--- NOTE | 2018-12-11 09:30 | NUR ---
NURSE NOTES: O2sat: 87-89%. Noted to have a large air leak in cuff. RT changed trache at bedside. per MD order. Patient O2sat after insertion of new trache, 97%.
[2018-12-11] MEDS: Enoxaparin 40mg Inj SUBQ SCH (09:32)
[2018-12-11] MEDS: Phenylephrine 100 MG in D5W 500ml 490 ML IV SCH ×2 (09:33→16:30)
[2018-12-11] MEDS: Norepinephrine Bitartrate 8 MG in D5W 500ml 492 ML IV SCH ×4 (09:35→22:47)
--- NOTE | 2018-12-11 09:36 | NUR ---
RD ASSESSMENT & RECOMMENDATIONS SEE CARE ACTIVITY FOR COMPLETE ASSESSMENT DAILY ESTIMATED NEEDS: Needs based on Critical care, sepsis, wound 60kg adj 22-30 kcals/kg 2520-6658 total kcals 1.25-2 g protein/kg 75-120 g total protein Fluid per MD NUTRITION DIAGNOSIS: * Swallowing difficulty r/t resp status as evidenced by pt is vent dep via trach and PEG dep. * Increased kcal and pro needs r/t wound healing and sepsis as evidenced by pt w/ sacral, R heel wounds and wound within close proximity to trach stoma. CURRENT TF: NPO ENTERAL NUTRITION RECOMMENDATIONS: Glucerna 1.2 @ 65ml/hr x18 hrs + Prosource x1 daily to provide 1170ml, 1404 kcal, 70g pro + 11g pro, 942 free H2O - Maintain current TF at goal as tolerated - TF TO BE HELD FOR ONE HR BEFORE AND AFTER DILANTIN MEDS - FLUSH PER MD, HOB OVER 30 DEGREES ------- ADDITIONAL RECOMMENDATIONS: 1) CALIBRATED BED SCALE W/ ADDED P200 MATTRESS + PUMP 2) TF TO RUN A MAX OF 18 HRS/DAY W/ DILANTIN TID PER PHARMACY 3) ICU status (12/11), NPO w/ multiple episodes of high residuals. On pressors x2; monitor for stability to feeds 4) WOUND CARE: ADD CHAYITO BID + VIT C 250MG BID w/ TF orders 5) Monitor lytes, replete as needed .
--- NOTE | 2018-12-11 10:00 | NUR ---
NURSE NOTES: Pt's daughter at bedside. Updated her with patient's current condition. Dr. Walters also at bedside, assessing patient and speaking to patient's daughter. Pt remains on Levophed 30mcg/min and Phenylephrine 240mcg/min, B/P labile. Too unstable to turn and reposition at this time. Will continue to monitor.
--- NOTE | 2018-12-11 10:08 | Hematology/Onc Progress Note ---
Assessment/Plan Assessment/Plan # Anemia of chronic disease due to underlying chronic medical issues, multifactorial --> Anemia workup has been reviewed and cw acd --> No evidence of hemolysis is noted, peripheral smear has been reviewed --> Hgb goal >7. Transfuse prn. --> hgb trend 9-->8-->7.5-->9.3->8.6-->8.4-->8.7->7.6-->6.6-->7.6-->8.8 --> Epogen or iron indication prn --> Medications have been reviewed --> low threshold for gi evaluation and occult NEGATIVE # Leukocytosis with sepsis secondary to UTI, GPC staph epidermidis bacteremia, Line associated infection, patient arrived to the hospital with a PICC --> as per ID consult recs --> Continue antibiotics per ID: Continue Zosyn and vancomycin, anti fungal added--> kaykay/vanc, diflucan-->flagyl, vanc, polymyxin--> omid/flagyl/polym/vanc /bactim-ds --> imaging noted --> now improved # Thrombocytosis is likely due to underlying reactive process --> if doesn't improve send off jak2 --> plt count 641k-->402k-->344-->275k-->280k-->250k-->255k-->203k # Elevated tumor marker, cea --> as per gi eval # Transaminitis --> trend lft's --> GI consult, apprec recs --> ab us: reviewed # Elevated troponin secondary to sepsis versus ACS --> as per Cardiology recs # Hypertension- improved --> sbp goal <150 # Vent dependent with trach --> on vent currently --> as per Pulmonary recs # Hypokalemia --> give vit K # Dysphagia s/p gtube feeds # CHf hx with hyponatremia --> 1l fluid restriction # Dvt ppx with lovenox The timing of this note does not necessarily reflect the time of the patient was seen. GREATLY APPRECIATE CONSULTATION. Subjective Allergies: Coded Allergies: Crayfish (Unverified Allergy, Unknown, 11/11/18) Uncoded Allergies: Crawfish (Allergy, Unknown, 11/09/18) Subjective 11/14: no events to report, labs relatively stable, hgb 8.9, on vent 11/15: no bleeding, no chills, labs reviewed, no major changes 11/16: cxr-->bilateral interstitial edema, vs stable, on abx, on vent, contact isolation 11/17: labs reviewed, on abx, vs stable, on vent, no distress 11/18: remains on gtube feeds, is on vent, on kaykay/vanc 11/20: no events, no bleeding, kaykay, vanc, diflucan, no f/c 11/21: remains on vent, gtube feeds, no major changes, no bleeding 11/22: ct abdomen pelvis w/contrast reviewed, vs stable, no acute events, labs reviewed, remains intubated, low grade fever 11/23: reviewed meds, abx have been changed, remains altered currently 11/24: labs reviewed, vs stable, med reviewed, no sob, no distress, on vent 11/25: remains on vent, no major events, on glucerna, fluid restriction 11/27: signed consent today, no f/c, no night sweats 11/28: no f/c, on abx, on vent, no distress, picc line in 11/29: no events to report, no f/c, no bleeding noted, on vent 11/30: vs stable, no f/c, on vent, obtunded, gtube feeds 12/01: no f/c, cxr-->pulmonary edema, meds reviewed, contact precaution, on vent , labs noted 12/03: ongoing gtube feeds, nava in place, on vent, no bleeding 12/04: remains obtunded, on trach/to vent, no bleeding today, labs noted 12/05: electrolytes repleted overnight, no major changes, prbc was ordered hgb 6.6 12/06: on vent, trach dependent, no f/c, no bleeding 12/07: no events, labs noted 12/08: neck wounds being addressed, labs pending, no f/c overnight 12/09: on vent/trach, no bleeding, hgb 8.7, on gtube feeds 12/11: in icu, cxr noted, on vent, developed new hcap and uti, obtunded, on abx Objective Objective Current Medications Medications (Trade) Dose Ordered Sig/Lupe Route PRN Reason Start Time Stop Time Status Last Admin Dose Admin Acetaminophen (Tylenol) 650 mg Q4H PRN GT Mild Pain/Temp > 100.5 12/11/18 05:12 01/07/19 05:11 12/11/18 09:22 Albuterol/ Ipratropium (Albuterol/ Ipratropium) 3 ml Q4H PRN HHN Shortness of Breath 12/11/18 05:13 12/13/18 05:12 Albuterol/ Ipratropium (Albuterol/ Ipratropium) 3 ml Q6HRT HHN 12/11/18 07:00 12/13/18 18:59 Amlodipine Besylate (Norvasc) 5 mg DAILY GT 12/11/18 09:00 01/07/19 08:59 Bisacodyl (Dulcolax) 10 mg DAILY PRN RECTAL Constipation 12/11/18 05:12 01/07/19 05:11 Chlorhexidine Gluconate (Corazon-Hex 2%) 1 applic DAILY@2000 TOPIC 12/11/18 20:00 01/07/19 19:59 Dextrose (Dextrose 50%) 25 ml Q30M PRN IV Hypoglycemia 12/11/18 05:15 01/07/19 04:44 Dextrose (Dextrose 50%) 50 ml Q30M PRN IV Hypoglycemia 12/11/18 05:15 01/07/19 04:44 Enoxaparin Sodium (Lovenox) 40 mg DAILY SUBQ 12/11/18 09:00 01/07/19 08:59 12/11/18 09:32 Famotidine (Pepcid) 20 mg EVERY 12 HOURS GT 12/11/18 09:00 01/07/19 20:59 12/11/18 09:26 Furosemide (Lasix) 40 mg EVERY 12 HOURS IV 12/11/18 09:00 01/03/19 20:59 12/11/18 09:29 Insulin Aspart (NovoLOG) Q6HR SUBQ 12/11/18 06:00 01/07/19 05:59 Insulin Detemir (Levemir) 4 units EVERY 12 HOURS SUBQ 12/11/18 09:00 01/07/19 20:59 Labetalol HCl (Normodyne) 200 mg Q8HR GT 12/11/18 06:00 01/07/19 05:59 Lactulose (Cephulac) 10 gm THREE TIMES A DAY GT 12/11/18 09:00 01/07/19 17:59 12/11/18 09:23 Levetiracetam (Keppra) 1,500 mg Q12HR GT 12/11/18 09:00 01/07/19 08:59 12/11/18 09:23 Levofloxacin 100 ml @ 100 mls/hr Q24H IVPB 12/11/18 18:00 12/17/18 17:59 Magnesium Hydroxide (Mom) 30 ml DAILY PRN GT Constipation 12/11/18 05:15 01/07/19 05:14 Metoclopramide HCl (Reglan) 5 mg Q8H PRN IVP Nausea & Vomiting 12/11/18 05:15 01/09/19 05:14 Minocycline HCl (Minocin) 100 mg Q12HR ORAL 12/11/18 09:00 12/18/18 08:59 12/11/18 09:24 Norepinephrine Bitartrate 8 mg/ Dextrose 500 ml @ 0 mls/hr Q24H IV 12/11/18 09:00 01/10/19 08:59 12/11/18 09:35 Ondansetron HCl (Zofran) 4 mg Q6H PRN GT Nausea & Vomiting 12/11/18 05:16 01/07/19 05:15 Phenobarbital (PHENobarbital) 60 mg BID GT 12/11/18 09:00 01/07/19 08:59 12/11/18 09:39 Phenylephrine HCl 100 mg/Dextrose 500 ml @ 0 mls/hr Q24H IV 12/11/18 09:00 01/10/19 08:59 12/11/18 09:33 Phenytoin (Dilantin) 100 mg Q8HR GT 12/11/18 06:00 01/07/19 05:59 Polyethylene Glycol (Miralax) 17 gm DAILYPRN PRN GT Constipation 12/11/18 05:17 01/07/19 05:16 Polymyxin B Sulfate 633079 units/Sodium Chloride 550 ml @ 550 mls/hr EVERY 12 HOURS IVPB 12/11/18 09:00 12/17/18 20:59 12/11/18 09:00 Sennosides (Senokot) 8.6 mg EVERY 12 HOURS GT 12/11/18 09:00 01/07/19 20:59 12/11/18 09:26 Trimethoprim/ Sulfamethoxazole (Bactrim-DS) 20 ml EVERY 12 HOURS GT 12/11/18 09:00 12/18/18 08:59 12/11/18 09:22 Last 24 Hour Vital Signs Date Time Temp Pulse Resp B/P (MAP) Pulse Ox O2 Delivery O2 Flow Rate FiO2 12/11/18 09:35 107/58 12/11/18 09:33 106 107/58 12/11/18 09:06 109 24 100 12/11/18 09:00 106 109/61 12/11/18 07:22 94/43 12/11/18 06:54 113 15 100 12/11/18 06:40 115 15 94/43 (60) 99 12/11/18 06:35 125 15 102/43 (62) 99 12/11/18 06:30 132 15 98/52 (67) 89 12/11/18 06:30 132 94/42 12/11/18 06:25 132 21 101/47 (65) 89 12/11/18 06:20 132 15 94/42 (59) 100 12/11/18 06:15 132 15 96/45 (62) 99 12/11/18 06:10 132 15 101/43 (62) 12/11/18 06:05 131 15 93/46 (62) 99 12/11/18 06:00 132 96/45 12/11/18 06:00 131 15 95/44 (61) 99 12/11/18 05:55 130 15 99/43 (61) 98 12/11/18 05:50 130 15 96/45 (62) 98 12/11/18 05:45 129 15 95/44 (61) 97 12/11/18 05:40 122 16 90/43 (59) 90 12/11/18 05:40 134 26 30 12/11/18 05:36 101 20 76/41 (53) 78 12/11/18 05:35 96 19 67/35 (46) 78 12/11/18 05:30 97 16 55/32 (40) 90 12/11/18 05:25 104 16 68/34 (45) 90 12/11/18 05:20 121 15 81/48 (59) 90 12/11/18 05:15 137 13 104/62 (76) 90 12/11/18 05:14 140 4 129/53 (78) 90 12/11/18 05:12 140 17 145/58 (87) 90 12/11/18 05:10 111 19 165/66 (99) 90 12/11/18 05:05 13 12 68/20 (36) 100 12/11/18 05:01 99.6 24 14 81/45 (57) 100 12/11/18 04:52 61/32 12/11/18 04:00 30 12/11/18 04:00 101.8 12/11/18 04:00 Mechanical Ventilator 12/11/18 03:43 114 12/11/18 03:32 112 34 30 12/11/18 02:15 111 32 97 Mechanical Ventilator 30 12/11/18 01:16 117 30 30 12/11/18 00:00 98.2 95 21 109/56 (73) 96 12/11/18 00:00 114 12/11/18 00:00 30 12/11/18 00:00 Mechanical Ventilator 12/10/18 23:13 110 32 30 12/10/18 21:29 106 25 30 12/10/18 21:08 91 106/62 12/10/18 20:00 99 12/10/18 20:00 Mechanical Ventilator 12/10/18 20:00 30 12/10/18 20:00 99.1 100 19 106/62 (77) 100 12/10/18 19:37 105 29 100 Mechanical Ventilator 30 104 28 30 12/10/18 17:53 97 25 98 Mechanical Ventilator 30 12/10/18 17:30 97 31 30 12/10/18 16:00 Mechanical Ventilator 12/10/18 16:00 99.3 105 21 127/67 (87) 99 12/10/18 16:00 30 12/10/18 15:49 102 28 30 12/10/18 15:33 102 12/10/18 14:46 106 114/62 12/10/18 13:08 106 26 30 12/10/18 12:00 Mechanical Ventilator 12/10/18 12:00 30 12/10/18 12:00 99.7 101 21 114/62 (79) 98 12/10/18 11:58 92 26 30 12/10/18 11:52 98 12/10/18 09:59 98 26 30 12/10/18 08:56 101 124/65 12/10/18 08:00 30 12/10/18 08:00 98.4 101 21 124/65 (84) 97 12/10/18 08:00 Mechanical Ventilator 12/10/18 07:51 102 12/10/18 07:23 98 26 96 Mechanical Ventilator 30 95 25 30 12/10/18 05:09 106 25 30 12/10/18 05:02 98 139/71 12/10/18 04:00 Mechanical Ventilator 12/10/18 04:00 30 12/10/18 04:00 98.1 102 22 135/69 (91) 100 12/10/18 03:38 105 12/10/18 03:30 92 22 30 12/10/18 01:18 96 21 97 Mechanical Ventilator 30 96 21 30 12/10/18 00:00 94 12/10/18 00:00 30 12/10/18 00:00 98.0 92 22 115/59 (77) 100 12/10/18 00:00 Mechanical Ventilator 12/09/18 23:30 92 27 30 12/09/18 21:30 92 24 30 12/09/18 21:11 96 117/55 12/09/18 20:00 98.2 96 22 117/55 (75) 99 12/09/18 20:00 30 12/09/18 20:00 Mechanical Ventilator 12/09/18 19:30 93 25 97 Mechanical Ventilator 30 93 25 30 12/09/18 19:26 93 12/09/18 16:56 93 23 30 12/09/18 16:00 Mechanical Ventilator 12/09/18 16:00 30 12/09/18 16:00 99.0 90 22 122/61 (81) 96 12/09/18 15:30 93 12/09/18 14:47 97 23 30 12/09/18 13:47 91 122/64 12/09/18 13:02 91 21 97 Mechanical Ventilator 30 92 22 30 12/09/18 12:00 Mechanical Ventilator 12/09/18 12:00 98.5 88 22 122/64 (83) 97 12/09/18 12:00 30 9/21/19 11:40 89 12/09/18 10:52 91 22 30 Intake and Output 12/10/18 12/11/18 19:00 07:00 Intake Total 200 ml 947.5 ml Output Total 1000 ml Balance -800 ml 947.5 ml Intake Free Water 200 ml IV Total 947.5 ml Output Urine Total 1000 ml Labs Test 12/09/18 05:00 12/10/18 04:50 12/11/18 03:25 12/11/18 07:45 White Blood Count 15.3 K/UL (4.8-10.8) 17.8 K/UL (4.8-10.8) 11.7 K/UL (4.8-10.8) Red Blood Count 3.22 M/UL (4.20-5.40) 3.28 M/UL (4.20-5.40) 3.21 M/UL (4.20-5.40) Hemoglobin 8.7 G/DL (12.0-16.0) 8.9 G/DL (12.0-16.0) 8.8 G/DL (12.0-16.0) Hematocrit 26.0 % (37.0-47.0) 26.8 % (37.0-47.0) 26.5 % (37.0-47.0) Mean Corpuscular Volume 81 FL (80-99) 82 FL (80-99) 83 FL (80-99) Mean Corpuscular Hemoglobin 27.1 PG (27.0-31.0) 27.2 PG (27.0-31.0) 27.3 PG (27.0-31.0) Mean Corpuscular Hemoglobin Concent 33.5 G/DL (32.0-36.0) 33.3 G/DL (32.0-36.0) 33.1 G/DL (32.0-36.0) Red Cell Distribution Width 17.2 % (11.6-14.8) 17.0 % (11.6-14.8) 16.5 % (11.6-14.8) Platelet Count 231 K/UL (150-450) 267 K/UL (150-450) 203 K/UL (150-450) Mean Platelet Volume 5.7 FL (6.5-10.1) 6.3 FL (6.5-10.1) 6.1 FL (6.5-10.1) Neutrophils (%) (Auto) 78.1 % (45.0-75.0) 79.4 % (45.0-75.0) % (45.0-75.0) Lymphocytes (%) (Auto) 5.6 % (20.0-45.0) 4.7 % (20.0-45.0) % (20.0-45.0) Monocytes (%) (Auto) 14.1 % (1.0-10.0) 13.8 % (1.0-10.0) % (1.0-10.0) Eosinophils (%) (Auto) 0.8 % (0.0-3.0) 1.0 % (0.0-3.0) % (0.0-3.0) Basophils (%) (Auto) 1.3 % (0.0-2.0) 1.1 % (0.0-2.0) % (0.0-2.0) Erythrocyte Sedimentation Rate 123 MM/HR (0-30) Sodium Level 135 MMOL/L (136-145) 137 MMOL/L (136-145) 142 MMOL/L (136-145) Potassium Level 4.0 MMOL/L (3.5-5.1) 3.6 MMOL/L (3.5-5.1) 3.5 MMOL/L (3.5-5.1) Chloride Level 100 MMOL/L (98-107) 101 MMOL/L (98-107) 104 MMOL/L (98-107) Carbon Dioxide Level 28 MMOL/L (21-32) 25 MMOL/L (21-32) 25 MMOL/L (21-32) Anion Gap 8 mmol/L (5-15) 11 mmol/L (5-15) 13 mmol/L (5-15) Blood Urea Nitrogen 31 mg/dL (7-18) 30 mg/dL (7-18) 37 mg/dL (7-18) Creatinine 0.9 MG/DL (0.55-1.30) 0.9 MG/DL (0.55-1.30) 1.3 MG/DL (0.55-1.30) Estimat Glomerular Filtration Rate mL/min (>60) mL/min (>60) mL/min (>60) Glucose Level 77 MG/DL (74-106) 113 MG/DL (74-106) 87 MG/DL (74-106) Calcium Level 8.5 MG/DL (8.5-10.1) 8.9 MG/DL (8.5-10.1) 8.8 MG/DL (8.5-10.1) Total Bilirubin 0.5 MG/DL (0.2-1.0) 0.7 MG/DL (0.2-1.0) Aspartate Amino Transf (AST/SGOT) 29 U/L (15-37) 25 U/L (15-37) Alanine Aminotransferase (ALT/SGPT) 32 U/L (12-78) 26 U/L (12-78) Alkaline Phosphatase 442 U/L (46-116) 389 U/L (46-116) C-Reactive Protein, Quantitative > 70.0 mg/dL (0.00-0.90) Total Protein 6.0 G/DL (6.4-8.2) 6.2 G/DL (6.4-8.2) Albumin 1.3 G/DL (3.4-5.0) 1.4 G/DL (3.4-5.0) Globulin 4.7 g/dL 4.8 g/dL Albumin/Globulin Ratio 0.3 (1.0-2.7) 0.3 (1.0-2.7) Amylase Level 49 U/L (25-115) Lipase 44 U/L (73-393) Arterial Blood pH 7.186 (7.350-7.450) Arterial Blood Partial Pressure CO2 40.2 mmHg (35.0-45.0) Arterial Blood Partial Pressure O2 85.0 mmHg (75.0-100.0) Arterial Blood HCO3 14.9 mmol/L (22.0-26.0) Arterial Blood Oxygen Saturation 93.1 % (95-100) Arterial Blood Base Excess -12.6 (-2-2) Harsh Test Positive Height (Feet): 5 Height (Inches): 8.00 Weight (Pounds): 239 Objective Physical Exam: Vitals: reviewed Gen: NAD, nonverbal HEENT: normocephalic, atraumatic Neck: non-tender, normal alignment ++ vent/trach Respiratory: normal breath sounds bilaterally CV: normal peripheral pulses, rrr Abdomen: normal bowel sounds, soft, nontender +gtube Extremities: 1-2+ edema Yonathan Hernandez MD Dec 11, 2018 10:08
--- NOTE | 2018-12-11 10:46 | Diagnostic Imaging Report ---
Indication: Dyspnea Comparison: 12/11/2018 at 05:23 A single view chest radiograph was obtained. Findings: Study performed at 08:44 Extensive bilateral infiltrate demonstrated predominating in the right lung. Heart is enlarged but stable. Tracheostomy noted. IMPRESSION: No change from the prior study done earlier the same day
--- NOTE | 2018-12-11 11:08 | NUR ---
[employer]; RESP FAILURE TRACH/VENT DEPENDENT,LEUKOCYTOSIS T. 100.0 HR 112 RR 24 B/P 95/70 PH 7.31 PCO2 23.9 PO2 103.6 HCO3 12.0 O2 SAT 97.0 WBC 11.7 NA 142 BUN 37 AC 24 TV 600 FIO2 90% PEEP 5 CXR=Extensive bilateral infiltrate demonstrated predominating in the right lung. Heart is enlarged but stable. Tracheostomy noted. IS: LEVOPHED GTT PHENYLEPHRINE GTT LEVAQUIN IV POLYMYXIN IV BACTRIM GT ICU STATUS
--- NOTE | 2018-12-11 11:50 | General Progress Note ---
Assessment/Plan Status: stable Assessment/Plan: (1) Abnormal LFTs ICD Codes: R94.5 - Abnormal results of liver function studies SNOMED: 994286752 (2) Decubitus skin ulcer ICD Codes: L89.90 - Pressure ulcer of unspecified site, unspecified stage SNOMED: 365409096 (3) Protein calorie malnutrition ICD Codes: E46 - Unspecified protein-calorie malnutrition SNOMED: 306967366 (4) Colon adenocarcinoma ICD Codes: C18.9 - Malignant neoplasm of colon, unspecified SNOMED: 833841403 (5) Sepsis ICD Codes: A41.9 - Sepsis, unspecified organism SNOMED: 04111214 (6) Tracheostomy dependence ICD Codes: Z93.0 - Tracheostomy status SNOMED: 858028633 (7) Gastrostomy in place ICD Codes: Z93.1 - Gastrostomy status SNOMED: 06824650, 67819905, 433170065 Status: stable Status Narrative Discussed with Dr. Humphries. Assessment/Plan Assessment - Iron deficiency anemia - abnormal LFT - ? meds, passive congestion - dysphagia, s/p GT - Resp, failure, s/p Trach - hepatitis panel negative Recommendations - TF on hold -s/p code blue on pressors - Monitor LFT - follow CBC - Conservative approach given poor health- -neg stool ob Subjective ROS Limited/Unobtainable: No Allergies: Coded Allergies: Crayfish (Unverified Allergy, Unknown, 11/11/18) Uncoded Allergies: Crawfish (Allergy, Unknown, 11/09/18) Subjective fever last night had BM Objective Last 24 Hour Vital Signs Date Time Temp Pulse Resp B/P (MAP) Pulse Ox O2 Delivery O2 Flow Rate FiO2 12/11/18 11:00 111/52 12/11/18 10:48 97 24 90 12/11/18 10:15 103 24 103/53 (70) 98 12/11/18 10:00 104 24 100/52 (68) 98 12/11/18 09:52 100.6 12/11/18 09:45 105 23 103/52 (69) 97 12/11/18 09:35 107/58 12/11/18 09:33 106 107/58 12/11/18 09:30 105 24 114/55 (74) 97 12/11/18 09:15 108 24 107/61 (76) 97 12/11/18 09:06 109 24 100 12/11/18 09:00 100.8 110 18 105/59 (74) 89 12/11/18 09:00 94/57 12/11/18 09:00 106 109/61 12/11/18 08:45 112 23 95/70 (78) 88 12/11/18 08:30 114 15 106/50 (68) 93 12/11/18 08:15 115 15 108/49 (68) 95 12/11/18 08:00 Mechanical Ventilator 12/11/18 08:00 101.8 115 15 111/54 (73) 96 12/11/18 08:00 100 12/11/18 08:00 110/53 12/11/18 07:30 107 12/11/18 07:22 94/43 12/11/18 06:54 113 15 100 12/11/18 06:40 115 15 94/43 (60) 99 12/11/18 06:35 125 15 102/43 (62) 99 12/11/18 06:30 132 15 98/52 (67) 89 12/11/18 06:30 132 94/42 12/11/18 06:25 132 21 101/47 (65) 89 12/11/18 06:20 132 15 94/42 (59) 100 12/11/18 06:15 132 15 96/45 (62) 99 12/11/18 06:10 132 15 101/43 (62) 12/11/18 06:05 131 15 93/46 (62) 99 12/11/18 06:00 132 96/45 12/11/18 06:00 131 15 95/44 (61) 99 12/11/18 05:55 130 15 99/43 (61) 98 12/11/18 05:50 130 15 96/45 (62) 98 12/11/18 05:45 129 15 95/44 (61) 97 12/11/18 05:40 122 16 90/43 (59) 90 12/11/18 05:40 134 26 30 12/11/18 05:36 101 20 76/41 (53) 78 12/11/18 05:35 96 19 67/35 (46) 78 12/11/18 05:30 97 16 55/32 (40) 90 12/11/18 05:25 104 16 68/34 (45) 90 12/11/18 05:20 121 15 81/48 (59) 90 12/11/18 05:15 137 13 104/62 (76) 90 12/11/18 05:14 140 4 129/53 (78) 90 12/11/18 05:12 140 17 145/58 (87) 90 12/11/18 05:10 111 19 165/66 (99) 90 12/11/18 05:05 13 12 68/20 (36) 100 12/11/18 05:01 99.6 24 14 81/45 (57) 100 12/11/18 04:52 61/32 12/11/18 04:00 30 12/11/18 04:00 101.8 12/11/18 04:00 Mechanical Ventilator 12/11/18 03:43 114 12/11/18 03:32 112 34 30 12/11/18 02:15 111 32 97 Mechanical Ventilator 30 12/11/18 01:16 117 30 30 12/11/18 00:00 98.2 95 21 109/56 (73) 96 12/11/18 00:00 114 12/11/18 00:00 30 12/11/18 00:00 Mechanical Ventilator 12/10/18 23:13 110 32 30 12/10/18 21:29 106 25 30 12/10/18 21:08 91 106/62 12/10/18 20:00 99 12/10/18 20:00 Mechanical Ventilator 12/10/18 20:00 30 12/10/18 20:00 99.1 100 19 106/62 (77) 100 12/10/18 19:37 105 29 100 Mechanical Ventilator 30 104 28 30 12/10/18 17:53 97 25 98 Mechanical Ventilator 30 12/10/18 17:30 97 31 30 12/10/18 16:00 Mechanical Ventilator 12/10/18 16:00 99.3 105 21 127/67 (87) 99 12/10/18 16:00 30 12/10/18 15:49 102 28 30 12/10/18 15:33 102 12/10/18 14:46 106 114/62 12/10/18 13:08 106 26 30 12/10/18 12:00 Mechanical Ventilator 12/10/18 12:00 30 12/10/18 12:00 99.7 101 21 114/62 (79) 98 12/10/18 11:58 92 26 30 12/10/18 11:52 98 Intake and Output 12/10/18 12/11/18 18:59 06:59 Intake Total 200 ml 775.0 ml Output Total 1000 ml Balance -800 ml 775.0 ml Intake Free Water 200 ml IV Total 775.0 ml Output Urine Total 1000 ml Laboratory Tests 12/11/18 03:25: White Blood Count 11.7H, Red Blood Count 3.21L, Hemoglobin 8.8L, Hematocrit 26.5L, Mean Corpuscular Volume 83, Mean Corpuscular Hemoglobin 27.3, Mean Corpuscular Hemoglobin Concent 33.1, Red Cell Distribution Width 16.5H, Platelet Count 203, Mean Platelet Volume 6.1L, Neutrophils (%) (Auto) , Lymphocytes (%) (Auto) , Monocytes (%) (Auto) , Eosinophils (%) (Auto) , Basophils (%) (Auto) , Sodium Level 142, Potassium Level 3.5, Chloride Level 104 , Carbon Dioxide Level 25, Anion Gap 13, Blood Urea Nitrogen 37H, Creatinine 1.3 , Estimat Glomerular Filtration Rate , Glucose Level 87, Calcium Level 8.8 12/11/18 07:45: Arterial Blood pH 7.186*L, Arterial Blood Partial Pressure CO2 40.2, Arterial Blood Partial Pressure O2 85.0, Arterial Blood HCO3 14.9*L, Arterial Blood Oxygen Saturation 93.1L, Arterial Blood Base Excess -12.6*L, Harsh Test Positive 12/11/18 10:29: Arterial Blood pH 7.317L, Arterial Blood Partial Pressure CO2 23.9*L, Arterial Blood Partial Pressure O2 103.6H, Arterial Blood HCO3 12.0*L, Arterial Blood Oxygen Saturation 97.0, Arterial Blood Base Excess -12.7*L, Harsh Test Positive Height (Feet): 5 Height (Inches): 8.00 Weight (Pounds): 239 General Appearance: lethargic EENT: normal ENT inspection Neck: supple Cardiovascular: tachycardia Respiratory/Chest: decreased breath sounds Abdomen: normal bowel sounds, non tender, soft Extremities: non-tender Casper Humphries MD Dec 11, 2018 11:50
--- NOTE | 2018-12-11 12:33 | Pulmonolgy Critical Care Note ---
Critical Care - Asmt/Plan Problems: (1) Sepsis (2) Tracheostomy dependence (3) Ventilator dependence (4) MRSA (methicillin resistant staphylococcus aureus) pneumonia (5) UTI (urinary tract infection) (6) Cardiac arrest (7) Anoxic brain damage (8) Tongue abnormality (9) Seizure disorder (10) Diabetes (11) HTN (hypertension) (12) Fever (13) Decubitus skin ulcer (14) Protein calorie malnutrition Respiratory: monitor respiratory rate, adjust FIO2 - keep PEEP 5, dec FiO2 to keep SaO2 > 90%, CXR, ABG, other - HHN's Cardiac: continue pressors, continue to monitor HR/BP, other - D/C lasix Renal: check electrolytes, other - D/C lasix Infectious Disease: continue antibiotics - Kory, polymixic, Levaqui, TMP-SMX Gastrointestinal: hold feedings - resume when able Endocrine: monitor blood sugar, continue sliding scale insulin Hematologic: monitor H/H Neurologic: keep patient comfortable - monitor MS, other - continue AED's Prophylaxis: Protonix, Heparin - LMWH, SCDs Disposition: keep in ICU Time Spent (Minutes): 60 Notes Reviewed: mine exploration engineer, ID, GI, other - HEME-ONC Discussed with: nurses, consultants, family member, other - CONTINUE TO DISCUSS [facility] Critical Care - Objective Last 24 Hour Vital Signs Date Time Temp Pulse Resp B/P (MAP) Pulse Ox O2 Delivery O2 Flow Rate FiO2 12/11/18 11:00 111/52 12/11/18 10:48 97 24 90 12/11/18 10:15 103 24 103/53 (70) 98 12/11/18 10:00 104 24 100/52 (68) 98 12/11/18 09:52 100.6 12/11/18 09:45 105 23 103/52 (69) 97 12/11/18 09:35 107/58 12/11/18 09:33 106 107/58 12/11/18 09:30 105 24 114/55 (74) 97 12/11/18 09:15 108 24 107/61 (76) 97 12/11/18 09:06 109 24 100 12/11/18 09:00 100.8 110 18 105/59 (74) 89 12/11/18 09:00 94/57 12/11/18 09:00 106 109/61 12/11/18 08:45 112 23 95/70 (78) 88 12/11/18 08:30 114 15 106/50 (68) 93 12/11/18 08:15 115 15 108/49 (68) 95 12/11/18 08:00 Mechanical Ventilator 12/11/18 08:00 101.8 115 15 111/54 (73) 96 12/11/18 08:00 100 12/11/18 08:00 110/53 12/11/18 07:30 107 12/11/18 07:22 94/43 12/11/18 06:54 113 15 100 12/11/18 06:40 115 15 94/43 (60) 99 12/11/18 06:35 125 15 102/43 (62) 99 12/11/18 06:30 132 15 98/52 (67) 89 12/11/18 06:30 132 94/42 12/11/18 06:25 132 21 101/47 (65) 89 12/11/18 06:20 132 15 94/42 (59) 100 12/11/18 06:15 132 15 96/45 (62) 99 12/11/18 06:10 132 15 101/43 (62) 12/11/18 06:05 131 15 93/46 (62) 99 12/11/18 06:00 132 96/45 12/11/18 06:00 131 15 95/44 (61) 99 12/11/18 05:55 130 15 99/43 (61) 98 12/11/18 05:50 130 15 96/45 (62) 98 12/11/18 05:45 129 15 95/44 (61) 97 12/11/18 05:40 122 16 90/43 (59) 90 12/11/18 05:40 134 26 30 12/11/18 05:36 101 20 76/41 (53) 78 12/11/18 05:35 96 19 67/35 (46) 78 12/11/18 05:30 97 16 55/32 (40) 90 12/11/18 05:25 104 16 68/34 (45) 90 12/11/18 05:20 121 15 81/48 (59) 90 12/11/18 05:15 137 13 104/62 (76) 90 12/11/18 05:14 140 4 129/53 (78) 90 12/11/18 05:12 140 17 145/58 (87) 90 12/11/18 05:10 111 19 165/66 (99) 90 12/11/18 05:05 13 12 68/20 (36) 100 12/11/18 05:01 99.6 24 14 81/45 (57) 100 12/11/18 04:52 61/32 12/11/18 04:00 30 12/11/18 04:00 101.8 12/11/18 04:00 Mechanical Ventilator 12/11/18 03:43 114 12/11/18 03:32 112 34 30 12/11/18 02:15 111 32 97 Mechanical Ventilator 30 12/11/18 01:16 117 30 30 12/11/18 00:00 98.2 95 21 109/56 (73) 96 12/11/18 00:00 114 12/11/18 00:00 30 12/11/18 00:00 Mechanical Ventilator 12/10/18 23:13 110 32 30 12/10/18 21:29 106 25 30 12/10/18 21:08 91 106/62 12/10/18 20:00 99 12/10/18 20:00 Mechanical Ventilator 12/10/18 20:00 30 12/10/18 20:00 99.1 100 19 106/62 (77) 100 12/10/18 19:37 105 29 100 Mechanical Ventilator 30 104 28 30 12/10/18 17:53 97 25 98 Mechanical Ventilator 30 12/10/18 17:30 97 31 30 12/10/18 16:00 Mechanical Ventilator 12/10/18 16:00 99.3 105 21 127/67 (87) 99 12/10/18 16:00 30 12/10/18 15:49 102 28 30 12/10/18 15:33 102 12/10/18 14:46 106 114/62 12/10/18 13:08 106 26 30 Status: somnolent Condition: critical HEENT: atraumatic, other - macroglossia Neck: trach Lungs: rhonchi Heart: HR/BP unstable Abdomen: soft, non-tender, active bowel sounds Extremities: edema - 1+, cyanosis - no , clubbing - no Accucheck: 81 Blood Sugars: BS controlled Critical Care - Subjective ROS Limited/Unobtainable: Yes ICU Day: 1 Intubation Day: N/A Interval Events: Inc residuals ON, vomited, PEA arrest, code x 3 with ROSC Now in ICU NE 3 JNENI 240 No sig secretions Tm 101.8 Vent changes made ON and this am based on ABG, gas exchange better Condition: critical IV Access: PICC EKG Rhythm: Sinus Rhythm FI02: 90 Vent Support Breath Rate: 24 Vent Support Mode: AC Vent Tidal Volume: 600 Sputum Amount: Moderate PEEP: 5.0 PIP: 38 Secretions: No Fluids: NS@5 Drips: NE 30 JENNI 240 Tube Feeding Amount: 35 I&O: Intake and Output 12/10/18 12/11/18 18:59 06:59 Intake Total 200 ml 775.0 ml Output Total 1000 ml Balance -800 ml 775.0 ml Intake Free Water 200 ml IV Total 775.0 ml Output Urine Total 1000 ml Subjective: SOWMYA CXR: CXR: trach, extensive R sided > L infiltrates Labs: Laboratory Tests Test 12/11/18 03:25 12/11/18 07:45 12/11/18 10:29 White Blood Count 11.7 K/UL (4.8-10.8) H Red Blood Count 3.21 M/UL (4.20-5.40) L Hemoglobin 8.8 G/DL (12.0-16.0) L Hematocrit 26.5 % (37.0-47.0) L Mean Corpuscular Volume 83 FL (80-99) Mean Corpuscular Hemoglobin 27.3 PG (27.0-31.0) Mean Corpuscular Hemoglobin Concent 33.1 G/DL (32.0-36.0) Red Cell Distribution Width 16.5 % (11.6-14.8) H Platelet Count 203 K/UL (150-450) Mean Platelet Volume 6.1 FL (6.5-10.1) L Neutrophils (%) (Auto) % (45.0-75.0) Lymphocytes (%) (Auto) % (20.0-45.0) Monocytes (%) (Auto) % (1.0-10.0) Eosinophils (%) (Auto) % (0.0-3.0) Basophils (%) (Auto) % (0.0-2.0) Sodium Level 142 MMOL/L (136-145) Potassium Level 3.5 MMOL/L (3.5-5.1) Chloride Level 104 MMOL/L (98-107) Carbon Dioxide Level 25 MMOL/L (21-32) Anion Gap 13 mmol/L (5-15) Blood Urea Nitrogen 37 mg/dL (7-18) H Creatinine 1.3 MG/DL (0.55-1.30) Estimat Glomerular Filtration Rate mL/min (>60) Glucose Level 87 MG/DL (74-106) Calcium Level 8.8 MG/DL (8.5-10.1) Arterial Blood pH 7.186 (7.350-7.450) 7.317 (7.350-7.450) Arterial Blood Partial Pressure CO2 40.2 mmHg (35.0-45.0) 23.9 mmHg (35.0-45.0) *L Arterial Blood Partial Pressure O2 85.0 mmHg (75.0-100.0) 103.6 mmHg (75.0-100.0) H Arterial Blood HCO3 14.9 mmol/L (22.0-26.0) *L 12.0 mmol/L (22.0-26.0) *L Arterial Blood Oxygen Saturation 93.1 % (95-100) L 97.0 % (95-100) Arterial Blood Base Excess -12.6 (-2-2) *L -12.7 (-2-2) *L Harsh Test Positive Positive Balbir Dejesus MD Dec 11, 2018 12:33
--- NOTE | 2018-12-11 12:40 | NUR ---
NURSE NOTES: Patient's family had a family meeting with Dr. Walters and Sherice, social work professor. Dr. Dejesus at bedside assessing patient, updated him on pt's current condition. SR with PAC's on monitoring specialist. Patient remains on Levophed @ 30 mcg/min and Phenylephrine @ 240 mcg/min. B/P 96/50, Map 61.
--- NOTE | 2018-12-11 12:56 | NUR ---
RESPIRATORY NOTES: Received Patient on Vent settings ACVC 15, VT 600, Fio2 100%, PEEP +5. Patient currently trached with a Shiley 8 tracheostomy tube, secured by trache ties. Patient obtundent. Breath sounds are bilateral rhonchi throughout both lung cardona. Suctioned large amount of green secretions Q2 and PRN. Vent plugged into red outlet. Alarms are on and audible. Will continue to monitor throughout the day.
--- NOTE | 2018-12-11 13:03 | Infectious Diseases Prog Note ---
Assessment/Plan Assessment/Plan ASSESSMENT AND PLAN: 1. providencia/acinetobacter pna, proteus uti, sepsis, leukocytosis, fevers, hx wounds per surgery management, + picc line, blood cultures remain negative s/p code, shock, pressors, possible aspiration event and worsening pna on chest x-ray - polymyxin, cefepime, vancomycin, flagyl, levofloxacin - re-check cultures - f/u on labs and chest x-ray - d/w Dr. Walters, d/w Dr. Dejesus - d/w RN - d/w pharmacy about abx - d/w microbiology - poor prognosis 2. Trach-vent respiratory failure. 3. Dysphagia, G-tube. 4. Anemia. 5. Diabetes. 6. Hypertension. 7. Large tongue. 8. Anoxic brain injury. 9. Weakness. 10. Poorly responsive. 11. History of seizures. 12. History of colon adenocarcinoma. 13. Skin care protocol. 14. Allergy to crawfish. 15. Social history negative. 16. Family history noncontributory. 17. MAR was noted. 18. Case was discussed with RN. 19. Continue treatment per primary consultants. 20. Orders were ordered, entered, and noted. 21. Continue wound care protocol. 22. Continue blood sugar and blood pressure treatment per primary consultants for diabetes and hypertension. 23. vre colonization and isolation Subjective Constitutional: Reports: fever, other HEENT: Reports: congestion - s/p code, on pressors Respiratory: Reports: shortness of breath Cardiovascular: Reports: other - on pressors Gastrointestinal/Abdominal: Denies: nausea, vomiting, diarrhea Genitourinary: Reports: other - + nava Neurologic: Reports: other - poorly responsive Skin: Reports: other - no new rash Allergies: Coded Allergies: Crayfish (Unverified Allergy, Unknown, 11/11/18) Uncoded Allergies: Crawfish (Allergy, Unknown, 11/09/18) Objective Vital Signs Last 24 Hour Vital Signs Date Time Temp Pulse Resp B/P (MAP) Pulse Ox O2 Delivery O2 Flow Rate FiO2 12/11/18 11:00 111/52 12/11/18 10:48 97 24 90 12/11/18 10:15 103 24 103/53 (70) 98 12/11/18 10:00 104 24 100/52 (68) 98 12/11/18 09:52 100.6 12/11/18 09:45 105 23 103/52 (69) 97 12/11/18 09:35 107/58 12/11/18 09:33 106 107/58 12/11/18 09:30 105 24 114/55 (74) 97 12/11/18 09:15 108 24 107/61 (76) 97 12/11/18 09:06 109 24 100 12/11/18 09:00 100.8 110 18 105/59 (74) 89 12/11/18 09:00 94/57 12/11/18 09:00 106 109/61 12/11/18 08:45 112 23 95/70 (78) 88 12/11/18 08:30 114 15 106/50 (68) 93 12/11/18 08:15 115 15 108/49 (68) 95 12/11/18 08:00 Mechanical Ventilator 12/11/18 08:00 101.8 115 15 111/54 (73) 96 12/11/18 08:00 100 12/11/18 08:00 110/53 12/11/18 07:30 107 12/11/18 07:22 94/43 12/11/18 06:54 113 15 100 12/11/18 06:40 115 15 94/43 (60) 99 12/11/18 06:35 125 15 102/43 (62) 99 12/11/18 06:30 132 15 98/52 (67) 89 12/11/18 06:30 132 94/42 12/11/18 06:25 132 21 101/47 (65) 89 12/11/18 06:20 132 15 94/42 (59) 100 12/11/18 06:15 132 15 96/45 (62) 99 12/11/18 06:10 132 15 101/43 (62) 12/11/18 06:05 131 15 93/46 (62) 99 12/11/18 06:00 132 96/45 12/11/18 06:00 131 15 95/44 (61) 99 12/11/18 05:55 130 15 99/43 (61) 98 12/11/18 05:50 130 15 96/45 (62) 98 12/11/18 05:45 129 15 95/44 (61) 97 12/11/18 05:40 122 16 90/43 (59) 90 12/11/18 05:40 134 26 30 12/11/18 05:36 101 20 76/41 (53) 78 12/11/18 05:35 96 19 67/35 (46) 78 12/11/18 05:30 97 16 55/32 (40) 90 12/11/18 05:25 104 16 68/34 (45) 90 12/11/18 05:20 121 15 81/48 (59) 90 12/11/18 05:15 137 13 104/62 (76) 90 12/11/18 05:14 140 4 129/53 (78) 90 12/11/18 05:12 140 17 145/58 (87) 90 12/11/18 05:10 111 19 165/66 (99) 90 12/11/18 05:05 13 12 68/20 (36) 100 12/11/18 05:01 99.6 24 14 81/45 (57) 100 12/11/18 04:52 61/32 12/11/18 04:00 30 12/11/18 04:00 101.8 12/11/18 04:00 Mechanical Ventilator 12/11/18 03:43 114 12/11/18 03:32 112 34 30 12/11/18 02:15 111 32 97 Mechanical Ventilator 30 12/11/18 01:16 117 30 30 12/11/18 00:00 98.2 95 21 109/56 (73) 96 12/11/18 00:00 114 12/11/18 00:00 30 12/11/18 00:00 Mechanical Ventilator 12/10/18 23:13 110 32 30 12/10/18 21:29 106 25 30 12/10/18 21:08 91 106/62 12/10/18 20:00 99 12/10/18 20:00 Mechanical Ventilator 12/10/18 20:00 30 12/10/18 20:00 99.1 100 19 106/62 (77) 100 12/10/18 19:37 105 29 100 Mechanical Ventilator 30 104 28 30 12/10/18 17:53 97 25 98 Mechanical Ventilator 30 12/10/18 17:30 97 31 30 12/10/18 16:00 Mechanical Ventilator 12/10/18 16:00 99.3 105 21 127/67 (87) 99 12/10/18 16:00 30 12/10/18 15:49 102 28 30 12/10/18 15:33 102 12/10/18 14:46 106 114/62 12/10/18 13:08 106 26 30 Height (Feet): 5 Height (Inches): 8.00 Weight (Pounds): 239 General Appearance: other - on vent, on pressors, + trach HEENT: normocephalic, anicteric, no JVD, status post trach Respiratory/Chest: crackles/rales, rhonchi - bilaterally Cardiovascular: normal rate, regular rhythm Abdomen: normal bowel sounds, soft, non tender, no organomegaly Genitourinary: other - + nava Skin: other - wounds - covered Objective 11/11/18 - chest x-ray - IMPRESSION: 1. Hypoventilatory lungs. Elevated right hemidiaphragm. Slightly improved vascular congestion. Similar bibasilar lung atelectasis and airspace disease. 2. Query right pleural effusion. 2-D echo - no vegetations mentioned, report noted sacral x-ray - no osteo mentioned, report noted 11/14/18 - Technique: One view of the chest Comparison: November 13, 2018 post PICC radiograph Findings: Bilateral interstitial and alveolar edema versus infiltrates appear slightly worse. There is increasing obscuration of left hemidiaphragm, may reflect increasing pleural fluid as well. The heart remains enlarged. Previously demonstrated left arm PICC has been removed. Stable right arm PICC. Impression: Slightly worsening bilateral interstitial and airspace infiltrates versus edema, over one day 11/16/18 - chest x-ray Procedure: XRAY Chest 1v Indication: Dyspnea Technique: One view of the chest Comparison: November 14, 2018 Findings: Bilateral interstitial edema persists. Tracheostomy, right arm PICC remain. The heart is enlarged. Impression: Bilateral interstitial edema, unchanged over [address] abdomen and pelvis: Impression: No definite acute process Diverticulosis. No evidence of diverticulitis Extensive edema of the subcutaneous fat. 2 cm focal fluid collection/edema seen within the incision Moderate amount retained dense stool. Correlate with any clinical history of constipation Hiatal hernia. Gastrostomy Left renal parapelvic cysts Apparent prior hysterectomy Chest x-ray - 11/23/18 - Technique: One view of the chest Comparison: 11/20/2018 Findings: Less optimal inspiration currently, with resultant crowding of the bronchovascular markings. Interstitial congestion is probably not significantly changed, allowing for differences in exposure technique. Tracheostomy remains. Right arm PICC remains. Impression: Unchanged, over 3 days, findings as above. Chest x-ray - 11/26/18 - IMPRESSION: 1. Rotated film. Increased hazy opacity at the left lung and left retrocardiac opacity. 2. Decreased left pleural effusion. 3. Elevated right hemidiaphragm with probable pleural effusion and consolidation, similar. Chest x-ray - 11/30/18 - Findings: Pulmonary edema again demonstrated. PICC line is stable as well as tracheostomy. Heart is enlarged. Basilar atelectasis suspected. The diaphragm is poorly seen. Underlying parenchymal infiltrate or other disease and/or pleural effusion may be present. IMPRESSION: Pulmonary edema Chest x-ray - 12/06/18 - IMPRESSION: Significant worsening of aeration with increased airspace opacities in the right , involving nearly the entire right lung. Although findings may be related to asymmetric pulmonary edema the possibility of pneumonia has to be considered. Clinical correlation and follow-up recommended. Likely layering right-sided pleural effusion. Tracheostomy tube and PICC line remain in place. Chest x-ray - 12/09/18 - FINDINGS: Lungs: Reduced lung volumes with bilateral pulmonary opacities. Retrocardiac atelectasis consolidation. Pleural space: Right pleural effusion. No pneumothorax. Heart: cardiomegaly. Mediastinum: Unremarkable. Bones joints: No acute fracture. Tubes, lines and devices: Right PICC line tip is difficult to delineate, it may cross midline. Tracheostomy. IMPRESSION: 1. Reduced lung volumes with bilateral pulmonary opacities. Could be edema and or pneumonia. There is a broader differential. 2. Right pleural effusion. 3. Right PICC line tip is difficult to delineate, it may cross midline rather than extend into the SVC. Chest x-ray - 12/11/18 - Comparison: 12/09/2018 A single view chest radiograph was obtained. Findings: There is evidence of probable new infiltrate in the right upper lobe and right perihilar region. Tracheostomy again demonstrated. In addition there are mixed interstitial alveolar densities bilaterally. Cardiomegaly is present. A right PICC line is present in good position with the tip projected over the innominate vein. IMPRESSION: Worsening infiltrates likely new within the right upper lobe and perihilar region. Other superimposed infiltrates versus pulmonary edema again noted. Laboratory Tests Test 12/11/18 03:25 12/11/18 07:45 12/11/18 10:29 White Blood Count 11.7 K/UL (4.8-10.8) H Red Blood Count 3.21 M/UL (4.20-5.40) L Hemoglobin 8.8 G/DL (12.0-16.0) L Hematocrit 26.5 % (37.0-47.0) L Mean Corpuscular Volume 83 FL (80-99) Mean Corpuscular Hemoglobin 27.3 PG (27.0-31.0) Mean Corpuscular Hemoglobin Concent 33.1 G/DL (32.0-36.0) Red Cell Distribution Width 16.5 % (11.6-14.8) H Platelet Count 203 K/UL (150-450) Mean Platelet Volume 6.1 FL (6.5-10.1) L Neutrophils (%) (Auto) % (45.0-75.0) Lymphocytes (%) (Auto) % (20.0-45.0) Monocytes (%) (Auto) % (1.0-10.0) Eosinophils (%) (Auto) % (0.0-3.0) Basophils (%) (Auto) % (0.0-2.0) Sodium Level 142 MMOL/L (136-145) Potassium Level 3.5 MMOL/L (3.5-5.1) Chloride Level 104 MMOL/L (98-107) Carbon Dioxide Level 25 MMOL/L (21-32) Anion Gap 13 mmol/L (5-15) Blood Urea Nitrogen 37 mg/dL (7-18) H Creatinine 1.3 MG/DL (0.55-1.30) Estimat Glomerular Filtration Rate mL/min (>60) Glucose Level 87 MG/DL (74-106) Calcium Level 8.8 MG/DL (8.5-10.1) Arterial Blood pH 7.186 (7.350-7.450) 7.317 (7.350-7.450) Arterial Blood Partial Pressure CO2 40.2 mmHg (35.0-45.0) 23.9 mmHg (35.0-45.0) *L Arterial Blood Partial Pressure O2 85.0 mmHg (75.0-100.0) 103.6 mmHg (75.0-100.0) H Arterial Blood HCO3 14.9 mmol/L (22.0-26.0) *L 12.0 mmol/L (22.0-26.0) *L Arterial Blood Oxygen Saturation 93.1 % (95-100) L 97.0 % (95-100) Arterial Blood Base Excess -12.6 (-2-2) *L -12.7 (-2-2) *L Harsh Test Positive Positive Current Medications Medications (Trade) Dose Ordered Sig/Lupe Route PRN Reason Start Time Stop Time Status Last Admin Dose Admin Acetaminophen (Tylenol) 650 mg Q4H PRN GT Mild Pain/Temp > 100.5 12/11/18 05:12 01/07/19 05:11 12/11/18 09:22 Albuterol/ Ipratropium (Albuterol/ Ipratropium) 3 ml Q4H PRN HHN Shortness of Breath 12/11/18 05:13 12/13/18 05:12 Albuterol/ Ipratropium (Albuterol/ Ipratropium) 3 ml Q6HRT HHN 12/11/18 07:00 12/13/18 18:59 Bisacodyl (Dulcolax) 10 mg DAILY PRN RECTAL Constipation 12/11/18 05:12 01/07/19 05:11 Chlorhexidine Gluconate (Corazon-Hex 2%) 1 applic DAILY@2000 TOPIC 12/11/18 20:00 01/07/19 19:59 Dextrose (Dextrose 50%) 25 ml Q30M PRN IV Hypoglycemia 12/11/18 05:15 01/07/19 04:44 Dextrose (Dextrose 50%) 50 ml Q30M PRN IV Hypoglycemia 12/11/18 05:15 01/07/19 04:44 Enoxaparin Sodium (Lovenox) 40 mg DAILY SUBQ 12/11/18 09:00 01/07/19 08:59 12/11/18 09:32 Famotidine (Pepcid) 20 mg EVERY 12 HOURS GT 12/11/18 09:00 01/07/19 20:59 12/11/18 09:26 Insulin Aspart (NovoLOG) Q6HR SUBQ 12/11/18 06:00 01/07/19 05:59 Insulin Detemir (Levemir) 4 units EVERY 12 HOURS SUBQ 12/11/18 09:00 01/07/19 20:59 Labetalol HCl (Normodyne) 200 mg Q8HR GT 12/11/18 06:00 01/07/19 05:59 Lactulose (Cephulac) 10 gm THREE TIMES A DAY GT 12/11/18 09:00 01/07/19 17:59 12/11/18 09:23 Levetiracetam (Keppra) 1,500 mg Q12HR GT 12/11/18 09:00 01/07/19 08:59 12/11/18 09:23 Levofloxacin 150 ml @ 150 mls/hr Q48H IVPB 12/11/18 18:00 12/18/18 17:59 Magnesium Hydroxide (Mom) 30 ml DAILY PRN GT Constipation 12/11/18 05:15 01/07/19 05:14 Metoclopramide HCl (Reglan) 5 mg Q8H PRN IVP Nausea & Vomiting 12/11/18 05:15 01/09/19 05:14 Minocycline HCl (Minocin) 100 mg Q12HR ORAL 12/11/18 09:00 12/18/18 08:59 12/11/18 09:24 Norepinephrine Bitartrate 8 mg/ Dextrose 500 ml @ 0 mls/hr Q24H IV 12/11/18 09:00 01/10/19 08:59 12/11/18 09:35 Ondansetron HCl (Zofran) 4 mg Q6H PRN GT Nausea & Vomiting 12/11/18 05:16 01/07/19 05:15 Phenobarbital (PHENobarbital) 60 mg BID GT 12/11/18 18:00 01/07/19 08:59 Phenylephrine HCl 100 mg/Dextrose 500 ml @ 0 mls/hr Q24H IV 12/11/18 09:00 01/10/19 08:59 12/11/18 09:33 Phenytoin (Dilantin) 100 mg Q8HR GT 12/11/18 06:00 01/07/19 05:59 Polyethylene Glycol (Miralax) 17 gm DAILYPRN PRN GT Constipation 12/11/18 05:17 01/07/19 05:16 Polymyxin B Sulfate 581031 units/Sodium Chloride 550 ml @ 550 mls/hr EVERY 12 HOURS IVPB 12/11/18 09:00 12/17/18 20:59 12/11/18 09:00 Sennosides (Senokot) 8.6 mg EVERY 12 HOURS GT 12/11/18 09:00 01/07/19 20:59 12/11/18 09:26 Trimethoprim/ Sulfamethoxazole (Bactrim-DS) 20 ml EVERY 12 HOURS GT 12/11/18 09:00 12/18/18 08:59 12/11/18 09:22 Dasha Crews MD Dec 11, 2018 13:03
--- NOTE | 2018-12-11 13:21 | NUR ---
Social Service Note POP,Dr. Walters and patient's dgts Treasure Granados [phone] and Tran Granados [phone] met for a family meeting. Dgts state prior to patient's surgery in September she was alert, oriented and independent with ADLS. While in recovery from a procedure at [facility] patient had a cardiac arrest. Dgt states there was a brief period of time while in the SNF patient would open her eyes. Dr. Walters discussed patient's current medical condition and plan of care. It was clarified that patient's dgt Treasure Granados is the primary contact and decision maker for patient however all patient's dgts can obtain information regarding patient. POP addressed code status. Family is currently requesting full code. SW provided emotional support. Will continue to monitor and assist as needed.
--- NOTE | 2018-12-11 13:24 | Surgery Progress Note ---
Surgery Progress Note Subjective Additional Comments Patient transferred to the intensive care unit after cardiovascular decline. Was able to reduce tongue. Family at bedside. Discussed care and plan. Discussed current findings. Overall poor prognosis. Objective Last 24 Hour Vital Signs Date Time Temp Pulse Resp B/P (MAP) Pulse Ox O2 Delivery O2 Flow Rate FiO2 12/11/18 13:00 93 26 89/51 (64) 92 12/11/18 12:30 96 26 96/50 (65) 93 12/11/18 12:00 98.6 92 26 100/52 (68) 95 12/11/18 12:00 90 12/11/18 11:30 98 26 112/44 (66) 95 12/11/18 11:00 99 26 111/52 (71) 96 12/11/18 11:00 111/52 12/11/18 10:48 97 24 90 12/11/18 10:30 101 24 103/53 (70) 99 12/11/18 10:15 103 24 103/53 (70) 98 12/11/18 10:00 104 24 100/52 (68) 98 12/11/18 09:52 100.6 12/11/18 09:45 105 23 103/52 (69) 97 12/11/18 09:35 107/58 12/11/18 09:33 106 107/58 12/11/18 09:30 105 24 114/55 (74) 97 12/11/18 09:15 108 24 107/61 (76) 97 12/11/18 09:06 109 24 100 12/11/18 09:00 100.8 110 18 105/59 (74) 89 12/11/18 09:00 94/57 12/11/18 09:00 106 109/61 12/11/18 08:45 112 23 95/70 (78) 88 12/11/18 08:30 114 15 106/50 (68) 93 12/11/18 08:15 115 15 108/49 (68) 95 12/11/18 08:00 Mechanical Ventilator 12/11/18 08:00 101.8 115 15 111/54 (73) 96 12/11/18 08:00 100 12/11/18 08:00 110/53 12/11/18 07:30 107 12/11/18 07:22 94/43 9/23/19 06:54 113 15 100 12/11/18 06:40 115 15 94/43 (60) 99 12/11/18 06:35 125 15 102/43 (62) 99 12/11/18 06:30 132 15 98/52 (67) 89 12/11/18 06:30 132 94/42 12/11/18 06:25 132 21 101/47 (65) 89 12/11/18 06:20 132 15 94/42 (59) 100 12/11/18 06:15 132 15 96/45 (62) 99 12/11/18 06:10 132 15 101/43 (62) 12/11/18 06:05 131 15 93/46 (62) 99 12/11/18 06:00 132 96/45 12/11/18 06:00 131 15 95/44 (61) 99 12/11/18 05:55 130 15 99/43 (61) 98 12/11/18 05:50 130 15 96/45 (62) 98 12/11/18 05:45 129 15 95/44 (61) 97 12/11/18 05:40 122 16 90/43 (59) 90 12/11/18 05:40 134 26 30 12/11/18 05:36 101 20 76/41 (53) 78 12/11/18 05:35 96 19 67/35 (46) 78 12/11/18 05:30 97 16 55/32 (40) 90 12/11/18 05:25 104 16 68/34 (45) 90 12/11/18 05:20 121 15 81/48 (59) 90 12/11/18 05:15 137 13 104/62 (76) 90 12/11/18 05:14 140 4 129/53 (78) 90 12/11/18 05:12 140 17 145/58 (87) 90 12/11/18 05:10 111 19 165/66 (99) 90 12/11/18 05:05 13 12 68/20 (36) 100 12/11/18 05:01 99.6 24 14 81/45 (57) 100 12/11/18 04:52 61/32 12/11/18 04:00 30 12/11/18 04:00 101.8 12/11/18 04:00 Mechanical Ventilator 12/11/18 03:43 114 12/11/18 03:32 112 34 30 12/11/18 02:15 111 32 97 Mechanical Ventilator 30 12/11/18 01:16 117 30 30 12/11/18 00:00 98.2 95 21 109/56 (73) 96 12/11/18 00:00 114 12/11/18 00:00 30 12/11/18 00:00 Mechanical Ventilator 12/10/18 23:13 110 32 30 12/10/18 21:29 106 25 30 12/10/18 21:08 91 106/62 12/10/18 20:00 99 12/10/18 20:00 Mechanical Ventilator 12/10/18 20:00 30 12/10/18 20:00 99.1 100 19 106/62 (77) 100 12/10/18 19:37 105 29 100 Mechanical Ventilator 30 104 28 30 12/10/18 17:53 97 25 98 Mechanical Ventilator 30 12/10/18 17:30 97 31 30 12/10/18 16:00 Mechanical Ventilator 12/10/18 16:00 99.3 105 21 127/67 (87) 99 12/10/18 16:00 30 12/10/18 15:49 102 28 30 12/10/18 15:33 102 12/10/18 14:46 106 114/62 I&O Intake and Output 12/10/18 12/11/18 19:00 07:00 Intake Total 200 ml 947.5 ml Output Total 1000 ml Balance -800 ml 947.5 ml Intake Free Water 200 ml IV Total 947.5 ml Output Urine Total 1000 ml Dressing: saturated Wound: other Drains: other Cardiovascular: RSR, other Respiratory: decreased breath sounds, other Abdomen: soft, non-tender, other, non-distended, decreased bowel sounds Extremities: other Laboratory Tests Test 12/11/18 03:25 12/11/18 07:45 12/11/18 10:29 White Blood Count 11.7 K/UL (4.8-10.8) H Red Blood Count 3.21 M/UL (4.20-5.40) L Hemoglobin 8.8 G/DL (12.0-16.0) L Hematocrit 26.5 % (37.0-47.0) L Mean Corpuscular Volume 83 FL (80-99) Mean Corpuscular Hemoglobin 27.3 PG (27.0-31.0) Mean Corpuscular Hemoglobin Concent 33.1 G/DL (32.0-36.0) Red Cell Distribution Width 16.5 % (11.6-14.8) H Platelet Count 203 K/UL (150-450) Mean Platelet Volume 6.1 FL (6.5-10.1) L Neutrophils (%) (Auto) % (45.0-75.0) Lymphocytes (%) (Auto) % (20.0-45.0) Monocytes (%) (Auto) % (1.0-10.0) Eosinophils (%) (Auto) % (0.0-3.0) Basophils (%) (Auto) % (0.0-2.0) Sodium Level 142 MMOL/L (136-145) Potassium Level 3.5 MMOL/L (3.5-5.1) Chloride Level 104 MMOL/L (98-107) Carbon Dioxide Level 25 MMOL/L (21-32) Anion Gap 13 mmol/L (5-15) Blood Urea Nitrogen 37 mg/dL (7-18) H Creatinine 1.3 MG/DL (0.55-1.30) Estimat Glomerular Filtration Rate mL/min (>60) Glucose Level 87 MG/DL (74-106) Calcium Level 8.8 MG/DL (8.5-10.1) Arterial Blood pH 7.186 (7.350-7.450) 7.317 (7.350-7.450) Arterial Blood Partial Pressure CO2 40.2 mmHg (35.0-45.0) 23.9 mmHg (35.0-45.0) *L Arterial Blood Partial Pressure O2 85.0 mmHg (75.0-100.0) 103.6 mmHg (75.0-100.0) H Arterial Blood HCO3 14.9 mmol/L (22.0-26.0) *L 12.0 mmol/L (22.0-26.0) *L Arterial Blood Oxygen Saturation 93.1 % (95-100) L 97.0 % (95-100) Arterial Blood Base Excess -12.6 (-2-2) *L -12.7 (-2-2) *L Harsh Test Positive Positive Plan Problems: (1) Fever (2) Tongue abnormality Assessment & Plan: patients jaw clenched closed and tongue has been stuck for some time. tongue split from middle teeth and now in two. edema and unable to reduce keep tongue moist. apply lube jelly prn dryness. will monitor do not recommend surgical intervention for this current medical condition spoke with family. ENT. OMFS no intervention stable still overall Was able to reduce the tongue after patient was noted to have unclenched jaw yesterday remains reduced and stable. Discussed with family (3) Tracheostomy dependence (4) Sepsis Assessment & Plan: gb no stones 6mm polyp no acute surgical intervention planned trend labs neck wounds being cared for sacral wound declining despite best efforts she has been receiving adequate nutritional supplementation and good wound care but inevitable decline unfortunately prognosis guarded DAILY ESTIMATED NEEDS: Needs based on Critical care, sepsis, wound 60kg adj 22-30 kcals/kg [id number] total kcals 1.25-2 g protein/kg 75-120 g total protein Fluid per MD, on lasix NUTRITION DIAGNOSIS: * Swallowing difficulty r/t respiratory status as evidenced by pt is vent dep via trach and PEG dep. * Increased kcal and pro needs r/t wound healing and sepsis as evidenced by pt w/ sacral and R heel wounds, febrile (Tmax 101.5). CURRENT TF: Jevity 1.2 @50 ml/hr x16 hrs ENTERAL NUTRITION RECOMMENDATIONS: Glucerna 1.2 @65ml/hr x18 hrs + Prosource x1 daily to provide 1170ml, 1404 kcal, 70g pro + 11g pro, 942 free H2O - REC TF CHANGE AND INCREASE TO BETTER MEET EST NEEDS - TF TO BE HELD FOR ONE HR BEFORE AND AFTER DILANTIN MEDS - START @20ML/HR, ADVANCE TOLERATED 15ML/HR Q4-6 HRS TO GOAL - FLUSH PER MD, HOB OVRE 30 DEGREES ADDITIONAL RECOMMENDATIONS: 1) CALIBRATED BED SCALE W/ ADDED P200 MATTRESS + PUMP 2) ON LASIX, MONITOR LYTES AND HYDRATION STATUS DAILY 3) TF TO RUN A MAX OF 18 HRS/DAY W/ DILANTIN TID PER PHARMACY 4) REC TF CHANGE TO CARB CONTROL FORMULA 5) WOUND CARE: ADD CHAYITO BID + VIT C 250MG DAILY (5) Fever Assessment & Plan: CT A/P with findings Impression: No definite acute process Diverticulosis. No evidence of diverticulitis Extensive edema of the subcutaneous fat. 2 cm focal fluid collection/edema seen within the incision Moderate amount retained dense stool. Correlate with any clinical history of constipation Hiatal hernia. Gastrostomy Left renal parapelvic cysts Apparent prior hysterectomy US w/ There are gallstones identified. No gallbladder wall thickening identified. The liver is unremarkable. Gallbladder is unremarkable. CBD is 3 mm. No gallstones identified. No biliary ductal dilatation seen. The kidneys are echogenic. There is no significant hydronephrosis demonstrated. There may be slight fullness of the left collecting system at the level of the kidney. The spleen is normal size. Pancreas and aorta are grossly unremarkable as visualized. (6) Decubitus skin ulcer Assessment & Plan: Pt presented on admission with full thickness sacral pressure injury.Base of wound is 20% necrotic , 80% slough. borders are macerated . Mild odor noted. (L)8.4cm x (W) 6.5cm. Periwound skin tone is darker without erythema,induration or elevation in skin temp. Both heels are non -blanchable and both are fluctuant when palpated. neck wounds still declining because of trach dependance, edema, and location as well as patients contractures Tx.Plan: Clean wound with saline. Apply Therahoney. Aply Moisture Barrier paste periwound. Cover with Optifoam drsg. Change every 3 days and prn. Apply Cavilon Skin Barrier to both heels. Cover each heel with Optifoam drsg. Change every 7 days and prn. wash neck wounds daily, apply skin protectant, therahoney, gauze and foam dressing daily APM/DEIRDRE mattress overlay. Reposition at least every 2hours or as tolerated. Off-load heels with pillow. will follow with recs thank you Preet Hylton Dec 11, 2018 13:24
--- NOTE | 2018-12-11 14:00 | NUR ---
NURSE NOTES: Dr. Dejesus notified of pt's low B/P 86/41. Maxed on Levo and Phenylephrine. Awaiting call back.
--- NOTE | 2018-12-11 14:45 | NUR ---
NURSE NOTES: Dr Dejesus responded. Vasopressin ordered.
[2018-12-11] MEDS: Vasopressin 100 UNITS in NS 95 ML IV SCH (15:11)
--- NOTE | 2018-12-11 15:11 | NUR ---
NURSE NOTES: Vasopressin started at 0.04 units/min, as ordered by Dr. Dejessu. Current B/P . Will continue to monitor.
[2018-12-11] MEDS: Cefepime 2gm/D5W 110ml IV SCH ×2 (15:41)
[2018-12-11] MEDS ORDERED: POLYMYXIN B SULFATE IVPB ONE (16:00)
[2018-12-11] MEDS ORDERED: SODIUM CHLORIDE IVPB ONE (16:00)
[2018-12-11] MEDS ORDERED: Vancomycin 1.25gm/NS Premix IVPB SCH (16:00)
--- NOTE | 2018-12-11 16:00 | NUR ---
NURSE NOTES: Blood culture collected from PICC and sputum culture collected, as ordered by Dr. Crews. Lab made aware to draw peripheral blood culture. Unable to collect urine culture d/t insufficient urine output.
--- NOTE | 2018-12-11 18:00 | NUR ---
NURSE NOTES: Pt's B/P 106/65, Running Levophed @ 30mcg/min, Phenylephrine @ 240mcg/min, and Vasopressin @ 0.04 units/min. No s/s of distress. Oral care done. Pt remains too hemodynamically unstable to turn.
[2018-12-11] MEDS: PHENobarbital Elixir 30mg/7.5ml GT SCH (18:15)
--- NOTE | 2018-12-11 19:07 | NUR ---
HAND-OFF: Report given to CHARLEE Cavazos and CHARLEE Talavera.
--- NOTE | 2018-12-11 19:20 | NUR ---
NURSE NOTES: Received bedside report from CHARLEE Sanchez and rafalRN.Patient stable,no s/s of pain,no respiratory distress,V/S stable,SR on monitoring coordinator,trach-vent Shily 8 AC 26 TV 600 FiO2 90% PEEP 5 tolerated well,GT on low intermittent suction,min urine output during the day,received a patient on Levophed drips 30 mcg/hr,Phehylephrine 240mcg/min,and Vasopressin 0.04units/kg,bed in a low safety position,HOB elevated,following seizure precaution,call light within a reach,will continue to monitor.family at bedside.
--- NOTE | 2018-12-11 19:21 | NUR ---
RESPIRATORY NOTE: Received pt on AC 26, 600VT, 90%, PEEP +5. Pt is trach-dependent w/ a cuffed, Shiley 8 tube. Pt is obtunded. B/S didi. rhonchi, sxn moderate to large amounts of thick, green-brown secretions. Family present at [facility]. Vent plugged into red outlet, ambubag at bedside. Pt in no apparent distress at this time. Will continue to monitor pt.
[2018-12-11] MEDS ORDERED: Dyna-Hex 2% Top Sol 2oz TOPIC SCH (20:00)
[2018-12-11] MEDS: Dyna-Hex 2% Top Sol 2oz TOPIC SCH (20:51)
--- NOTE | 2018-12-11 21:05 | NUR ---
NURSE NOTES: Pt stable,RT titrated O2 to 75%,tolerated setting well,O2Sat 98%.Will continue to monitor
[2018-12-12] VITALS (87 sets, daily range): BP systolic 77–169; BP diastolic 39–93
--- NOTE | 2018-12-12 00:09 | NUR ---
NURSE NOTES: Insulin not given d/t patient's condition,pt NPO,no maintain fluid,BS 149,preceptor aware and charge nurse.
--- NOTE | 2018-12-12 00:15 | NUR ---
NURSE NOTES: D/t change of pt's condition, Phenylephrine titrated to 220 mcg/min,will continue to monitor V/S every 15 min,charge nurse aware.
[2018-12-12] MEDS: Colistin for inhalation INH SCH (01:15)
[2018-12-12] MEDS: Albuterol/Ipratropium 3ml neb HHN SCH ×4 (01:16→20:00)
--- NOTE | 2018-12-12 02:30 | NUR ---
NURSE NOTES: Pt stable,cleaned and repositioned,w/c done,dressings changed,pictures taken and uploaded.PICC line dressing changed as well,V/S stable,Phenylephrine titrated to 118 mcg/min.Will continue to monitor
[2018-12-12] MEDS: Norepinephrine Bitartrate 8 MG in D5W 500ml 492 ML IV SCH ×5 (03:39→23:47)
[2018-12-12] MEDS ORDERED: SODIUM CHLORIDE IVPB SCH ×4 (04:00)
[2018-12-12] MEDS ORDERED: POLYMYXIN B SULFATE IVPB SCH ×4 (04:00)
[2018-12-12 04:56] LABS: HEMATOCRIT 28.1 % (37.0-47.0); HEMOGLOBIN 8.7 G/DL (12.0-16.0); MEAN CORPUSCULAR VOLUME 85 FL (80-99); PLATELET COUNT 215 K/UL (150-450); RED BLOOD COUNT 3.31 M/UL (4.20-5.40); RED CELL DISTRIBUTION WIDTH 18.2 % (11.6-14.8)
--- NOTE | 2018-12-12 05:00 | NUR ---
NURSE NOTES: Phenylephrine titrated to 118 mcg/min.Pt still on supine position d/t hemodynamically unstable condition, HOB elevated,Will continue to monitor
[2018-12-12 05:22] LABS: ALANINE AMINOTRANSFERASE 342 U/L (12-78); ALBUMIN 1.2 G/DL (3.4-5.0); ALBUMIN/GLOBULIN RATIO 0.3 (1.0-2.7); ALKALINE PHOSPHATASE 335 U/L (46-116); ANION GAP 27 mmol/L (5-15); ASPARTATE AMINO TRANSFERASE 1122 U/L (15-37); BLOOD UREA NITROGEN 42 mg/dL (7-18); CALCIUM 7.8 MG/DL (8.5-10.1); CARBON DIOXIDE 10 MMOL/L (21-32); CHLORIDE 94 MMOL/L (98-107); CREATININE 1.9 MG/DL (0.55-1.30); POTASSIUM 4.1 MMOL/L (3.5-5.1); SODIUM 130 MMOL/L (136-145)
[2018-12-12 05:24] LABS: WHITE BLOOD COUNT 30.9 K/UL (4.8-10.8)
[2018-12-12 05:38] LABS: BILIRUBIN,DIRECT 1.5 MG/DL (0.0-0.3)
--- NOTE | 2018-12-12 05:45 | NUR ---
NURSE NOTES: Phenylephrine titrated to 80 mcg/min based on B/P level.Tolerated well.
[2018-12-12] MEDS: Magic Mouth Wash 60ml (Benadryl/Mylanta/Visc Lido) ORAL SCH ×3 (05:46→21:46)
[2018-12-12] MEDS: Phenytoin Susp 100mg/4ml GT SCH ×3 (05:46→21:39)
[2018-12-12] MEDS: Labetalol 200mg tab GT SCH ×3 (05:47→21:40)
[2018-12-12] MEDS: NovoLOG Insulin Flexpen SUBQ SCH ×4 (06:28→18:57)
--- NOTE | 2018-12-12 06:51 | NUR ---
NURSE NOTES: WBC 30.9, called Dr. Gonzalez on his emergency exchange. Left a message, awaiting for return call
--- NOTE | 2018-12-12 07:09 | NUR ---
RESPIRATORY NOTE: Patient received mechanically ventilated on PB 840 with current ordered vent settings. Patient has trach size 8.0 Shiley that is secured with a trach tie and guard. Vent alarms are functional and audible. There is an ambu bag available at the bedside and the vent is connected to a red outlet. Will continue to monitor.
--- NOTE | 2018-12-12 07:20 | NUR ---
HAND-OFF: Report given to CHARLEE Singh.Patient stable.
--- NOTE | 2018-12-12 07:21 | NUR ---
NURSE NOTES: Received patient from CHARLEE Talavera. Patient Blood pressure 130/67 on levophed 30mcg/hr, vasopressin 2.4mL/hr, and phenylephrine 80mcg/min. Patient temp 97.3. Patient does not respond to name or pain. Patient eyes closed. Patient on trach to ventilator with setting of AC 26, TV 600, FiO2 75%, and PEEP 5. Patient tolerating setting with O2 saturation 100%, HR 80, and RR 26. Patient has gastrostomy tube that is hooked to low intermittent suction at this time. Small amount of green gastric content present in the suction canister. Patient has nava for urine retention with minimal output. about 20cc present in the nava bag at this time. Patient has multiple wounds. Patient has sacral stage 3, redness of the trach insertion site, and full thickness pressure ulcer of the right and left ear. Patient has right upper arm PICC that is patent, asymptomatic and dressing changed today on previous shift. Patient bed in low position with bed alarm on and call light in reach at this time. Will continue to monitor blood pressure and vital signs and titrate medications per protocol. Addendum: 12/12/18 at 1825 by Samantha Dominguez RN Oral care performed and patient repositioned.
--- NOTE | 2018-12-12 07:32 | NUR ---
NURSE NOTES: Dr Crews called. Notified him regarding WBC of 30.9 this morning. No new orders received.
--- NOTE | 2018-12-12 08:29 | NUR ---
RADIOLOGY DEPT., CHEST X-RAY DONE.-P.DYE
[2018-12-12] MEDS: Sennosides 8.6mg tab GT SCH ×2 (08:48→20:41)
[2018-12-12] MEDS: Lactulose 10gm/15ml UDC GT SCH ×3 (08:48→18:45)
[2018-12-12] MEDS: PHENobarbital Elixir 30mg/7.5ml GT SCH ×2 (08:48→18:46)
[2018-12-12] MEDS: levETIRAcetam 500mg/5ml Liquid GT SCH ×2 (08:48→20:40)
[2018-12-12] MEDS: Enoxaparin 40mg Inj SUBQ SCH (08:51)
[2018-12-12] MEDS: Levemir Flexpen SUBQ SCH ×2 (08:52→20:39)
--- NOTE | 2018-12-12 09:23 | General Progress Note ---
Assessment/Plan Problem List: (1) Cardiac arrest ICD Codes: I46.9 - Cardiac arrest, cause unspecified SNOMED: 941141537 (2) Ventilator dependence ICD Codes: Z99.11 - Dependence on respirator [ventilator] status SNOMED: 849467325 (3) DAMASO (acute kidney injury) ICD Codes: N17.9 - Acute kidney failure, unspecified SNOMED: 8273521, 12545725 (4) Sepsis ICD Codes: A41.9 - Sepsis, unspecified organism SNOMED: 30746721 (5) Gram-negative pneumonia ICD Codes: J15.6 - Pneumonia due to other Gram-negative bacteria SNOMED: 941570187 (6) MRSA (methicillin resistant staphylococcus aureus) pneumonia ICD Codes: J15.212 - Pneumonia due to Methicillin resistant Staphylococcus aureus SNOMED: 763117168163200 (7) Fever ICD Codes: R50.9 - Fever, unspecified SNOMED: 466447849 (8) UTI (urinary tract infection) ICD Codes: N39.0 - Urinary tract infection, site not specified SNOMED: 30177037 (9) Tracheostomy dependence ICD Codes: Z93.0 - Tracheostomy status SNOMED: 599067325 (10) Protein calorie malnutrition ICD Codes: E46 - Unspecified protein-calorie malnutrition SNOMED: 893626012 (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 SNOMED: 44104010 (12) Drug rash ICD Codes: L27.0 - Generalized skin eruption due to drugs and medicaments taken internally SNOMED: 74783568 (13) Line sepsis ICD Codes: T85.79XA - Infection and inflammatory reaction due to other internal prosthetic devices, implants and grafts, initial encounter; A41.9 - Sepsis, unspecified organism SNOMED: 46862239, 540193556 (14) Bacteremia ICD Codes: R78.81 - Bacteremia SNOMED: 5383619 (15) Hyponatremia ICD Codes: E87.1 - Hypo-osmolality and hyponatremia SNOMED: 57988337 (16) Seizure disorder ICD Codes: G40.909 - Epilepsy, unspecified, not intractable, without status epilepticus SNOMED: 624761166 (17) Diabetes ICD Codes: E11.9 - Type 2 diabetes mellitus without complications SNOMED: 79541597 (18) Colon adenocarcinoma ICD Codes: C18.9 - Malignant neoplasm of colon, unspecified SNOMED: 138633383 (19) Anoxic brain damage ICD Codes: G93.1 - Anoxic brain damage, not elsewhere classified SNOMED: 071553731 (20) Decubitus skin ulcer ICD Codes: L89.90 - Pressure ulcer of unspecified site, unspecified stage SNOMED: 743427897 (21) Aspiration into airway ICD Codes: T17.908A - Unspecified foreign body in respiratory tract, part unspecified causing other injury, initial encounter SNOMED: 462580485 Qualifiers: Qualified Codes: T17.908A - Unspecified foreign body in respiratory tract, part unspecified causing other injury, initial encounter (22) Abnormal LFTs ICD Codes: R94.5 - Abnormal results of liver function studies SNOMED: 959398225 Status: stable Assessment/Plan: 78-year-old female who is trach dependent who was brought in by [facility] for sepsis and found to have UTI and bacteremia. prolonged hospital course, multiple courses of antibiotics developed HCAP, then aspirated g tube contents and had a PEA arrest, coded x3, ROSC. In ICU. #Cardiac arrest, shock. ? bowel perf. abdomen soft. wbc trending up continue on pressors (norepinephrine, vasopressin, phenylephrine), monitor HR/BP , titrate down as tolerated Adjust fio2 as needed will follow up cxr repeat ABG Family meeting with daughters Marilyn, POP Smiley. Extensive discussion regarding goals of care on 12/11. Would like to keep patient full code for the time being. will meet with family again and update them. Pulm.crit consult for vent management and critical care Dr. Dejesus d/w RN # Vent dependent. providencia/acinetobacter pna, proteus uti, sepsis, leukocytosis, fevers, hx wounds per surgery management, + picc line, blood cultures remain negative. possible aspiration event and worsening pna on chest x -ray. ? Bowel perforation. wbc increasing -Patient too unstable to go down to radiology for CT abdomen pelvis. XR abdomen - polymyxin, cefepime, vancomycin, Flagyl, levofloxacin. -Vanc trough high- being managed by pharmacy - re-check cultures and follow up - f/u on labs and chest x-ray - poor prognosis -d/w Dr. Goodwin -d/w Dr. Dejesus -Vent management per pulmonary #DAMASO- continue to monitor urine output and renal function. Nephrology consult, Dr. Sommers. Renal dose all antibioitcs. Will avoid nephrotoxic medication #hyponatremia resolved. Intravascularly depleted vs SIADH. Improved . Nephrology consult Dr. Sommers. DCed lasix now that in shock. # Transaminitis - worsening, meds vs passive congestion, now worse after cardiac arrest. Hepatitis panel negative. GI consult on board. #Microcytic anemia- mixed anemia of chronic inflammation and iron deficiency. ferrous sulfate TID , transfused 1 uprbc 11/27. and another unit prbc 12/05. #Hypertension- now on pressors. Hold all antihypertensives #Decubitus ulcer. Managed by Dr. Hylton # tongue laceration, hematoma and edema, placed back in by Dr. Hylton. Patient however continues to clench and bite down #Feeds via PEG: Hold #Seizure: phenytoin and keppra. Phonobarb #GOC: had a family meeting with daughters and POP Smiley. Extensive conversation reg goals of care and code status. Remains full code. prognosis poor I spent 40 minutes of critical care time at bedside. Time of note may not reflect time of encounter. Subjective Date patient seen: Dec 12, 2018 ROS Limited/Unobtainable: Yes Allergies: Coded Allergies: Crayfish (Unverified Allergy, Unknown, 11/11/18) Uncoded Allergies: Crawfish (Allergy, Unknown, 11/09/18) Subjective obtunded on vent Afebrile T max 101.8 on 3 pressors, titrating down Lots of bowel contents suctioned from GT Objective Last 24 Hour Vital Signs Date Time Temp Pulse Resp B/P (MAP) Pulse Ox O2 Delivery O2 Flow Rate FiO2 12/12/18 08:48 103/50 12/12/18 08:00 Mechanical Ventilator 12/12/18 08:00 121/63 12/12/18 08:00 75 12/12/18 08:00 97.3 79 26 121/63 (82) 99 12/12/18 07:45 79 26 126/65 (85) 100 12/12/18 07:45 126/65 12/12/18 07:30 80 26 130/66 (87) 100 12/12/18 07:30 130/66 12/12/18 07:17 75 26 100 75 12/12/18 07:15 134/72 12/12/18 07:15 79 26 134/72 (92) 100 12/12/18 07:07 79 26 Mechanical Ventilator 75 75 12/12/18 07:00 80 26 130/67 (88) 100 12/12/18 07:00 130/67 12/12/18 06:45 81 26 131/70 (90) 100 12/12/18 06:30 80 26 126/68 (87) 100 12/12/18 06:15 123/63 12/12/18 06:15 80 26 123/63 (83) 100 12/12/18 06:00 128/65 12/12/18 06:00 78 26 129/65 (86) 100 12/12/18 05:47 81 128/66 12/12/18 05:46 136/74 12/12/18 05:45 80 26 136/74 (94) 100 12/12/18 05:30 128/66 12/12/18 05:30 80 26 128/66 (86) 100 12/12/18 05:15 79 26 124/68 (86) 100 12/12/18 05:13 124/68 12/12/18 05:00 81 26 113/54 (73) 98 12/12/18 05:00 113/54 12/12/18 04:59 80 26 75 12/12/18 04:45 118/63 12/12/18 04:45 80 26 118/63 (81) 99 12/12/18 04:30 81 26 113/54 (73) 98 12/12/18 04:30 113/54 12/12/18 04:15 103/62 12/12/18 04:15 82 26 103/62 (76) 98 12/12/18 04:00 75 12/12/18 04:00 111/59 12/12/18 04:00 97.7 85 26 111/59 (76) 98 12/12/18 04:00 Mechanical Ventilator 12/12/18 03:45 87 26 118/60 (79) 97 12/12/18 03:45 118/60 12/12/18 03:39 120/63 12/12/18 03:30 88 26 120/63 (82) 97 12/12/18 03:30 124/65 12/12/18 03:16 87 9/24/19 03:15 89 26 124/65 (84) 99 12/12/18 03:15 164/78 12/12/18 03:14 88 26 75 12/12/18 03:00 169/81 12/12/18 03:00 90 26 169/81 (110) 100 12/12/18 02:45 169/93 12/12/18 02:45 90 26 169/93 (118) 99 12/12/18 02:30 125/73 12/12/18 02:30 87 26 125/73 (90) 96 12/12/18 02:15 90 16 122/70 (87) 99 12/12/18 02:15 122/70 12/12/18 02:00 133/74 12/12/18 02:00 89 26 133/74 (93) 100 12/12/18 01:45 89 26 133/74 (93) 99 12/12/18 01:30 89 26 133/82 (99) 99 12/12/18 01:26 88 26 100 Mechanical Ventilator 75 12/12/18 01:16 88 26 98 Mechanical Ventilator 75 88 26 75 12/12/18 01:15 89 26 126/73 (90) 99 12/12/18 01:00 133/82 12/12/18 01:00 88 26 124/67 (86) 99 12/12/18 00:45 87 26 133/74 (93) 99 12/12/18 00:30 87 26 133/70 (91) 100 12/12/18 00:15 88 26 133/70 (91) 100 12/12/18 00:00 88 12/12/18 00:00 Mechanical Ventilator 12/12/18 00:00 88 26 133/72 (92) 99 12/12/18 00:00 88 131/73 12/11/18 23:45 87 26 131/73 (92) 99 12/11/18 23:30 89 26 132/68 (89) 99 12/11/18 23:15 88 26 125/71 (89) 99 12/11/18 23:12 88 26 75 12/11/18 23:03 88 12/11/18 23:00 125/71 12/11/18 23:00 88 26 120/69 (86) 98 12/11/18 22:47 126/72 12/11/18 22:45 88 26 106/58 (74) 98 12/11/18 22:30 89 26 126/72 (90) 98 12/11/18 22:15 90 26 118/58 (78) 98 12/11/18 22:00 118/58 12/11/18 22:00 88 118/58 12/11/18 22:00 90 26 129/70 (89) 98 12/11/18 21:45 94 26 128/72 (90) 98 12/11/18 21:30 85 26 121/69 (86) 97 12/11/18 21:15 85 26 118/52 (74) 97 12/11/18 21:01 86 26 75 12/11/18 21:00 86 27 123/68 (86) 98 12/11/18 21:00 118/52 12/11/18 21:00 75 12/11/18 20:45 86 26 121/63 (82) 100 12/11/18 20:30 86 27 121/70 (87) 100 12/11/18 20:15 85 26 117/63 (81) 100 12/11/18 20:00 117/63 12/11/18 20:00 85 26 117/62 (80) 100 12/11/18 20:00 Mechanical Ventilator 12/11/18 20:00 90 12/11/18 19:45 85 26 115/72 (86) 100 12/11/18 19:30 85 26 112/69 (83) 100 12/11/18 19:26 85 26 100 Mechanical Ventilator 90 12/11/18 19:23 85 12/11/18 19:16 85 26 97 Mechanical Ventilator 90 86 26 90 12/11/18 19:15 85 26 97/64 (75) 99 12/11/18 19:00 85 26 111/61 (78) 97 12/11/18 19:00 97.4 85 26 111/61 (78) 97 12/11/18 19:00 111/61 12/11/18 18:30 84 26 106/66 (79) 97 12/11/18 18:17 106/65 12/11/18 18:15 84 26 103/54 (70) 98 12/11/18 18:00 85 26 106/65 (79) 98 12/11/18 18:00 103/54 12/11/18 17:45 85 26 104/64 (77) 97 12/11/18 17:30 85 26 101/62 (75) 95 12/11/18 17:15 85 26 100/59 (73) 93 12/11/18 17:00 84 26 98/57 (71) 93 12/11/18 17:00 85 26 100 12/11/18 17:00 98/57 12/11/18 16:30 86 111/55 12/11/18 16:15 87 26 111/55 (73) 97 12/11/18 16:00 Mechanical Ventilator 12/11/18 16:00 97.3 91 26 113/61 (78) 96 12/11/18 16:00 113/61 12/11/18 16:00 100 12/11/18 15:45 88 26 116/66 (83) 98 12/11/18 15:31 87 12/11/18 15:30 87 26 104/56 (72) 96 12/11/18 15:00 84/55 12/11/18 15:00 87 26 84/55 (65) 96 12/11/18 14:52 87 26 100 12/11/18 14:45 87 26 87/49 (62) 95 12/11/18 14:30 88 26 81/47 (58) 95 12/11/18 14:15 88 26 87/43 (58) 95 12/11/18 14:13 89/51 12/11/18 14:00 87/43 12/11/18 14:00 88 87/43 12/11/18 14:00 89 26 90/35 (53) 95 12/11/18 13:30 92 26 91/48 (62) 91 12/11/18 13:00 90 26 90 Mechanical Ventilator 90 94 26 90 12/11/18 13:00 93 26 89/51 (64) 92 12/11/18 13:00 88/47 12/11/18 12:30 96 26 96/50 (65) 93 12/11/18 12:00 98.6 92 26 100/52 (68) 95 12/11/18 12:00 90 12/11/18 12:00 98/49 12/11/18 12:00 Mechanical Ventilator 12/11/18 11:32 86 12/11/18 11:30 98 26 112/44 (66) 95 12/11/18 11:00 99 26 111/52 (71) 96 12/11/18 11:00 111/52 12/11/18 10:48 97 24 90 12/11/18 10:30 101 24 103/53 (70) 99 12/11/18 10:15 103 24 103/53 (70) 98 12/11/18 10:00 104 24 100/52 (68) 98 12/11/18 09:52 100.6 12/11/18 09:45 105 23 103/52 (69) 97 12/11/18 09:35 107/58 12/11/18 09:33 106 107/58 12/11/18 09:30 105 24 114/55 (74) 97 Intake and Output 12/11/18 12/12/18 19:00 07:00 Intake Total 3241.685 ml 2447.88 ml Output Total 1160 ml 500 ml Balance 2081.685 ml 1947.88 ml IV Total 3111.685 ml 2317.88 ml Other 130 ml 130 ml Output Urine Total 10 ml 0 ml Gastric Drainage Total 1150 ml Other 500 ml Laboratory Tests 12/11/18 10:29: Arterial Blood pH 7.317L, Arterial Blood Partial Pressure CO2 23.9*L, Arterial Blood Partial Pressure O2 103.6H, Arterial Blood HCO3 12.0*L, Arterial Blood Oxygen Saturation 97.0, Arterial Blood Base Excess -12.7*L, Harsh Test Positive 12/12/18 03:15: White Blood Count 30.9#*H, Red Blood Count 3.31L, Hemoglobin 8.7L, Hematocrit 28.1L, Mean Corpuscular Volume 85, Mean Corpuscular Hemoglobin 26.4L, Mean Corpuscular Hemoglobin Concent 31.0L, Red Cell Distribution Width 18.2H, Platelet Count 215, Mean Platelet Volume 6.7, Neutrophils (%) (Auto) , Lymphocytes (%) (Auto) , Monocytes (%) (Auto) , Eosinophils (%) (Auto) , Basophils (%) (Auto) , Differential Total Cells Counted 100, Neutrophils % ( Manual) 81H, Lymphocytes % (Manual) 5L, Monocytes % (Manual) 5, Eosinophils % ( Manual) 0, Basophils % (Manual) 0, Band Neutrophils 9H, Platelet Estimate Adequate, Platelet Morphology Normal, Hypochromasia 1+, Zeinab Cells 1+, Sodium Level 130#L, Potassium Level 4.1, Chloride Level 94L, Carbon Dioxide Level 10L, Anion Gap 27H, Blood Urea Nitrogen 42H, Creatinine 1.9H, Estimat Glomerular Filtration Rate , Glucose Level 170H, Calcium Level 7.8L, Total Bilirubin 2.0H, Direct Bilirubin 1.5H, Aspartate Amino Transf (AST/SGOT) 1122H, Alanine Aminotransferase (ALT/SGPT) 342H, Alkaline Phosphatase 335H, Total Protein 5.4L , Albumin 1.2L, Globulin 4.2, Albumin/Globulin Ratio 0.3L Height (Feet): 5 Height (Inches): 8.00 Weight (Pounds): 230 Objective General Appearance: no apparent distress, other - unresponsive on vent EENT: PERRL/EOMI, other -, lower lip severely swollen, tongue enlarged however reduced by surgeon Neck: supple Cardiovascular: normal rate, regular rhythm, 1+ edema Respiratory/Chest: Rhonchi Abdomen: soft Neurologic: unresponsive Skin: Decubitus ulcers Neftaly Walters M.D. Dec 12, 2018 09:23
[2018-12-12] MEDS ORDERED: NS 275ml ONE ×2 (09:49→10:20)
[2018-12-12] MEDS ORDERED: NS Irrig 1000ml ONE (09:49)
[2018-12-12] MEDS: Phenylephrine 100 MG in D5W 500ml 490 ML IV SCH ×3 (09:52)
--- NOTE | 2018-12-12 10:00 | NUR ---
NURSE NOTES: Blood pressure 100/57 with levophed 30mcg/hr, vasopressin 2.4mL/hr, and phenylephrine 20mcg/min. Will continue to monitor and titrate per protocol. Patient repositioned.
[2018-12-12] MEDS ORDERED: D5W 550ml IV ONE (10:20)
[2018-12-12] MEDS ORDERED: Tubing IV Secondary IV ONE (10:20)
--- NOTE | 2018-12-12 10:48 | General Progress Note ---
Assessment/Plan Status: stable Assessment/Plan: (1) Abnormal LFTs ICD Codes: R94.5 - Abnormal results of liver function studies SNOMED: 375496569 (2) Decubitus skin ulcer ICD Codes: L89.90 - Pressure ulcer of unspecified site, unspecified stage SNOMED: 275369015 (3) Protein calorie malnutrition ICD Codes: E46 - Unspecified protein-calorie malnutrition SNOMED: 425738212 (4) Colon adenocarcinoma ICD Codes: C18.9 - Malignant neoplasm of colon, unspecified SNOMED: 052468479 (5) Sepsis ICD Codes: A41.9 - Sepsis, unspecified organism SNOMED: 89655976 (6) Tracheostomy dependence ICD Codes: Z93.0 - Tracheostomy status SNOMED: 433082381 (7) Gastrostomy in place (8) shock liver . Assessment/Plan Assessment - Iron deficiency anemia - abnormal LFT - ? meds, passive congestion - dysphagia, s/p GT - Resp, failure, s/p Trach - hepatitis panel negative Recommendations - TF on hold -s/p code blue on pressors - Monitor LFT>> shock liver - follow CBC - Conservative approach given poor health- -neg stool ob Subjective ROS Limited/Unobtainable: No Allergies: Coded Allergies: Crayfish (Unverified Allergy, Unknown, 11/11/18) Uncoded Allergies: Crawfish (Allergy, Unknown, 11/09/18) Subjective fever last night had BM Objective Last 24 Hour Vital Signs Date Time Temp Pulse Resp B/P (MAP) Pulse Ox O2 Delivery O2 Flow Rate FiO2 12/12/18 09:52 78 117/59 12/12/18 08:48 103/50 12/12/18 08:45 77 26 Mechanical Ventilator 75 75 12/12/18 08:00 Mechanical Ventilator 12/12/18 08:00 121/63 12/12/18 08:00 75 12/12/18 08:00 97.3 79 26 121/63 (82) 99 12/12/18 07:45 79 26 126/65 (85) 100 12/12/18 07:45 126/65 12/12/18 07:30 80 26 130/66 (87) 100 12/12/18 07:30 130/66 12/12/18 07:17 75 26 100 75 12/12/18 07:15 134/72 12/12/18 07:15 79 26 134/72 (92) 100 12/12/18 07:07 79 26 Mechanical Ventilator 75 75 12/12/18 07:00 80 26 130/67 (88) 100 12/12/18 07:00 130/67 12/12/18 06:45 81 26 131/70 (90) 100 12/12/18 06:30 80 26 126/68 (87) 100 12/12/18 06:15 123/63 12/12/18 06:15 80 26 123/63 (83) 100 12/12/18 06:00 128/65 12/12/18 06:00 78 26 129/65 (86) 100 12/12/18 05:47 81 128/66 12/12/18 05:46 136/74 12/12/18 05:45 80 26 136/74 (94) 100 12/12/18 05:30 128/66 12/12/18 05:30 80 26 128/66 (86) 100 12/12/18 05:15 79 26 124/68 (86) 100 12/12/18 05:13 124/68 12/12/18 05:00 81 26 113/54 (73) 98 12/12/18 05:00 113/54 12/12/18 04:59 80 26 75 12/12/18 04:45 118/63 12/12/18 04:45 80 26 118/63 (81) 99 12/12/18 04:30 81 26 113/54 (73) 98 12/12/18 04:30 113/54 12/12/18 04:15 103/62 12/12/18 04:15 82 26 103/62 (76) 98 12/12/18 04:00 75 12/12/18 04:00 111/59 12/12/18 04:00 97.7 85 26 111/59 (76) 98 12/12/18 04:00 Mechanical Ventilator 12/12/18 03:45 87 26 118/60 (79) 97 12/12/18 03:45 118/60 12/12/18 03:39 120/63 12/12/18 03:30 88 26 120/63 (82) 97 12/12/18 03:30 124/65 12/12/18 03:16 87 9/24/19 03:15 89 26 124/65 (84) 99 12/12/18 03:15 164/78 12/12/18 03:14 88 26 75 12/12/18 03:00 169/81 12/12/18 03:00 90 26 169/81 (110) 100 12/12/18 02:45 169/93 12/12/18 02:45 90 26 169/93 (118) 99 12/12/18 02:30 125/73 12/12/18 02:30 87 26 125/73 (90) 96 12/12/18 02:15 90 16 122/70 (87) 99 12/12/18 02:15 122/70 12/12/18 02:00 133/74 12/12/18 02:00 89 26 133/74 (93) 100 12/12/18 01:45 89 26 133/74 (93) 99 12/12/18 01:30 89 26 133/82 (99) 99 12/12/18 01:26 88 26 100 Mechanical Ventilator 75 12/12/18 01:16 88 26 98 Mechanical Ventilator 75 88 26 75 12/12/18 01:15 89 26 126/73 (90) 99 12/12/18 01:00 133/82 12/12/18 01:00 88 26 124/67 (86) 99 12/12/18 00:45 87 26 133/74 (93) 99 12/12/18 00:30 87 26 133/70 (91) 100 12/12/18 00:15 88 26 133/70 (91) 100 12/12/18 00:00 88 12/12/18 00:00 Mechanical Ventilator 12/12/18 00:00 88 26 133/72 (92) 99 12/12/18 00:00 88 131/73 12/11/18 23:45 87 26 131/73 (92) 99 12/11/18 23:30 89 26 132/68 (89) 99 12/11/18 23:15 88 26 125/71 (89) 99 12/11/18 23:12 88 26 75 12/11/18 23:03 88 12/11/18 23:00 125/71 12/11/18 23:00 88 26 120/69 (86) 98 12/11/18 22:47 126/72 12/11/18 22:45 88 26 106/58 (74) 98 12/11/18 22:30 89 26 126/72 (90) 98 12/11/18 22:15 90 26 118/58 (78) 98 19 22:00 118/58 12/11/18 22:00 88 118/58 12/11/18 22:00 90 26 129/70 (89) 98 12/11/19 21:45 94 26 128/72 (90) 98 12/11/18 21:30 85 26 121/69 (86) 97 12/11/18 21:15 85 26 118/52 (74) 97 12/11/18 21:01 86 26 75 12/11/18 21:00 86 27 123/68 (86) 98 12/11/18 21:00 118/52 12/11/18 21:00 75 12/11/18 20:45 86 26 121/63 (82) 100 12/11/18 20:30 86 27 121/70 (87) 100 12/11/18 20:15 85 26 117/63 (81) 100 12/11/18 20:00 117/63 12/11/18 20:00 85 26 117/62 (80) 100 12/11/18 20:00 Mechanical Ventilator 12/11/18 20:00 90 12/11/18 19:45 85 26 115/72 (86) 100 12/11/18 19:30 85 26 112/69 (83) 100 12/11/18 19:26 85 26 100 Mechanical Ventilator 90 12/11/18 19:23 85 12/11/18 19:16 85 26 97 Mechanical Ventilator 90 86 26 90 12/11/18 19:15 85 26 97/64 (75) 99 12/11/18 19:00 85 26 111/61 (78) 97 12/11/18 19:00 97.4 85 26 111/61 (78) 97 12/11/18 19:00 111/61 12/11/18 18:30 84 26 106/66 (79) 97 12/11/18 18:17 106/65 12/11/18 18:15 84 26 103/54 (70) 98 12/11/18 18:00 85 26 106/65 (79) 98 12/11/18 18:00 103/54 12/11/18 17:45 85 26 104/64 (77) 97 12/11/18 17:30 85 26 101/62 (75) 95 12/11/18 17:15 85 26 100/59 (73) 93 12/11/18 17:00 84 26 98/57 (71) 93 12/11/18 17:00 85 26 100 12/11/18 17:00 98/57 12/11/18 16:30 86 111/55 12/11/18 16:15 87 26 111/55 (73) 97 12/11/18 16:00 Mechanical Ventilator 12/11/18 16:00 97.3 91 26 113/61 (78) 96 12/11/18 16:00 113/61 12/11/18 16:00 100 12/11/18 15:45 88 26 116/66 (83) 98 12/11/18 15:31 87 12/11/18 15:30 87 26 104/56 (72) 96 12/11/18 15:00 84/55 12/11/18 15:00 87 26 84/55 (65) 96 12/11/18 14:52 87 26 100 12/11/18 14:45 87 26 87/49 (62) 95 12/11/18 14:30 88 26 81/47 (58) 95 12/11/18 14:15 88 26 87/43 (58) 95 12/11/18 14:13 89/51 12/11/18 14:00 87/43 12/11/18 14:00 88 87/43 12/11/18 14:00 89 26 90/35 (53) 95 12/11/18 13:30 92 26 91/48 (62) 91 12/11/18 13:00 90 26 90 Mechanical Ventilator 90 94 26 90 12/11/18 13:00 93 26 89/51 (64) 92 12/11/18 13:00 88/47 12/11/18 12:30 96 26 96/50 (65) 93 12/11/18 12:00 98.6 92 26 100/52 (68) 95 12/11/18 12:00 90 12/11/18 12:00 98/49 12/11/18 12:00 Mechanical Ventilator 12/11/18 11:32 86 12/11/18 11:30 98 26 112/44 (66) 95 12/11/18 11:00 99 26 111/52 (71) 96 12/11/18 11:00 111/52 12/11/18 10:48 97 24 90 Intake and Output 12/11/18 12/12/18 19:00 07:00 Intake Total 3241.685 ml 2447.88 ml Output Total 1160 ml 500 ml Balance 2081.685 ml 1947.88 ml IV Total 3111.685 ml 2317.88 ml Other 130 ml 130 ml Output Urine Total 10 ml 0 ml Gastric Drainage Total 1150 ml Other 500 ml Laboratory Tests 12/12/18 03:15: White Blood Count 30.9#*H, Red Blood Count 3.31L, Hemoglobin 8.7L, Hematocrit 28.1L, Mean Corpuscular Volume 85, Mean Corpuscular Hemoglobin 26.4L, Mean Corpuscular Hemoglobin Concent 31.0L, Red Cell Distribution Width 18.2H, Platelet Count 215, Mean Platelet Volume 6.7, Neutrophils (%) (Auto) , Lymphocytes (%) (Auto) , Monocytes (%) (Auto) , Eosinophils (%) (Auto) , Basophils (%) (Auto) , Differential Total Cells Counted 100, Neutrophils % ( Manual) 81H, Lymphocytes % (Manual) 5L, Monocytes % (Manual) 5, Eosinophils % ( Manual) 0, Basophils % (Manual) 0, Band Neutrophils 9H, Platelet Estimate Adequate, Platelet Morphology Normal, Hypochromasia 1+, Zeinab Cells 1+, Sodium Level 130#L, Potassium Level 4.1, Chloride Level 94L, Carbon Dioxide Level 10L, Anion Gap 27H, Blood Urea Nitrogen 42H, Creatinine 1.9H, Estimat Glomerular Filtration Rate , Glucose Level 170H, Calcium Level 7.8L, Total Bilirubin 2.0H, Direct Bilirubin 1.5H, Aspartate Amino Transf (AST/SGOT) 1122H, Alanine Aminotransferase (ALT/SGPT) 342H, Alkaline Phosphatase 335H, Total Protein 5.4L , Albumin 1.2L, Globulin 4.2, Albumin/Globulin Ratio 0.3L Height (Feet): 5 Height (Inches): 8.00 Weight (Pounds): 230 General Appearance: lethargic EENT: normal ENT inspection Neck: supple Cardiovascular: tachycardia Respiratory/Chest: decreased breath sounds Abdomen: normal bowel sounds, non tender, soft Extremities: non-tender Casper Humphries MD Dec 12, 2018 10:48
--- NOTE | 2018-12-12 11:19 | Infectious Diseases Prog Note ---
Assessment/Plan Assessment/Plan ASSESSMENT AND PLAN: 1. providencia/acinetobacter pna, proteus uti, sepsis, leukocytosis, fevers, hx wounds per surgery management, + picc line, blood cultures remain negative, sputum culture with gram negatives so far s/p code, sepsis with shock, pressors, possible aspiration event and worsening pna on chest x-ray, ARF likely secondary to sepsis/shock - inhaled colistin, cefepime, zyvox, flagyl, levofloxacin, minocycline - avoid nephrotoxic meds - f/u on cultures - f/u on labs and chest x-ray - d/w Dr. Walters, d/w Dr. Dejesus - d/w RN - d/w pharmacy about abx - d/w microbiology - poor prognosis - d/w family at the bedside 2. Trach-vent respiratory failure, macroglossia 3. Dysphagia, G-tube. 4. Anemia. 5. Diabetes. 6. Hypertension. 7. Large tongue. 8. Anoxic brain injury. 9. Weakness. 10. Poorly responsive. 11. History of seizures. 12. History of colon adenocarcinoma. 13. Skin care protocol. 14. Allergy to crawfish. 15. Social history negative. 16. Family history noncontributory. 17. MAR was noted. 18. Case was discussed with RN. 19. Continue treatment per primary consultants. 20. Orders were ordered, entered, and noted. 21. Continue wound care protocol. and surgery f/u and recs 22. Continue blood sugar and blood pressure treatment per primary consultants for diabetes and hypertension. 23. vre colonization and isolation Subjective Constitutional: Reports: fever, other - + trach and vent, + pressors HEENT: Reports: congestion Respiratory: Reports: shortness of breath Cardiovascular: Reports: other - + pressors Gastrointestinal/Abdominal: Denies: nausea, vomiting, diarrhea Genitourinary: Reports: other - + nava Neurologic: Reports: other - poorly responsive Psychiatric: Reports: other - NA Skin: Reports: rash - no new rash, other - wounds covered, no new rash Hematologic: Denies: bleeding Musculoskeletal: Reports: other - NA Allergies: Coded Allergies: Crayfish (Unverified Allergy, Unknown, 11/11/18) Uncoded Allergies: Crawfish (Allergy, Unknown, 11/09/18) Objective Vital Signs Last 24 Hour Vital Signs Date Time Temp Pulse Resp B/P (MAP) Pulse Ox O2 Delivery O2 Flow Rate FiO2 12/12/18 10:30 92/68 12/12/18 10:15 116/65 12/12/18 10:00 113/56 12/12/18 09:52 78 117/59 12/12/18 09:45 117/59 12/12/18 09:30 123/62 12/12/18 09:15 123/67 12/12/18 09:00 130/66 12/12/18 08:48 103/50 12/12/18 08:45 100/57 12/12/18 08:45 77 26 Mechanical Ventilator 75 75 12/12/18 08:30 103/50 12/12/18 08:15 113/61 12/12/18 08:00 Mechanical Ventilator 12/12/18 08:00 121/63 12/12/18 08:00 75 12/12/18 08:00 97.3 79 26 121/63 (82) 99 12/12/18 07:45 79 26 126/65 (85) 100 12/12/18 07:45 126/65 12/12/18 07:30 80 26 130/66 (87) 100 12/12/18 07:30 130/66 12/12/18 07:17 75 26 100 75 12/12/18 07:15 134/72 12/12/18 07:15 79 26 134/72 (92) 100 12/12/18 07:07 79 26 Mechanical Ventilator 75 75 12/12/18 07:00 80 26 130/67 (88) 100 12/12/18 07:00 130/67 12/12/18 06:45 81 26 131/70 (90) 100 12/12/18 06:30 80 26 126/68 (87) 100 12/12/18 06:15 123/63 12/12/18 06:15 80 26 123/63 (83) 100 12/12/18 06:00 128/65 12/12/18 06:00 78 26 129/65 (86) 100 12/12/18 05:47 81 128/66 12/12/18 05:46 136/74 12/12/18 05:45 80 26 136/74 (94) 100 12/12/18 05:30 128/66 12/12/18 05:30 80 26 128/66 (86) 100 12/12/18 05:15 79 26 124/68 (86) 100 12/12/18 05:13 124/68 12/12/18 05:00 81 26 113/54 (73) 98 12/12/18 05:00 113/54 12/12/18 04:59 80 26 75 12/12/18 04:45 118/63 12/12/18 04:45 80 26 118/63 (81) 99 12/12/18 04:30 81 26 113/54 (73) 98 12/12/18 04:30 113/54 12/12/18 04:15 103/62 12/12/18 04:15 82 26 103/62 (76) 98 12/12/18 04:00 75 12/12/18 04:00 111/59 12/12/18 04:00 97.7 85 26 111/59 (76) 98 12/12/18 04:00 Mechanical Ventilator 12/12/18 03:45 87 26 118/60 (79) 97 12/12/18 03:45 118/60 12/12/18 03:39 120/63 12/12/18 03:30 88 26 120/63 (82) 97 12/12/18 03:30 124/65 12/12/18 03:16 87 12/12/18 03:15 89 26 124/65 (84) 99 12/12/18 03:15 164/78 12/12/18 03:14 88 26 75 12/12/18 03:00 169/81 12/12/18 03:00 90 26 169/81 (110) 100 12/12/18 02:45 169/93 12/12/18 02:45 90 26 169/93 (118) 99 12/12/18 02:30 125/73 12/12/18 02:30 87 26 125/73 (90) 96 12/12/18 02:15 90 16 122/70 (87) 99 12/12/18 02:15 122/70 12/12/18 02:00 133/74 12/12/18 02:00 89 26 133/74 (93) 100 12/12/18 01:45 89 26 133/74 (93) 99 12/12/18 01:30 89 26 133/82 (99) 99 12/12/18 01:26 88 26 100 Mechanical Ventilator 75 12/12/18 01:16 88 26 98 Mechanical Ventilator 75 88 26 75 12/12/18 01:15 89 26 126/73 (90) 99 12/12/18 01:00 133/82 12/12/18 01:00 88 26 124/67 (86) 99 12/12/18 00:45 87 26 133/74 (93) 99 12/12/18 00:30 87 26 133/70 (91) 100 12/12/18 00:15 88 26 133/70 (91) 100 12/12/18 00:00 88 12/12/18 00:00 Mechanical Ventilator 12/12/18 00:00 88 26 133/72 (92) 99 12/12/18 00:00 88 131/73 12/11/18 23:45 87 26 131/73 (92) 99 12/11/18 23:30 89 26 132/68 (89) 99 12/11/18 23:15 88 26 125/71 (89) 99 12/11/18 23:12 88 26 75 12/11/18 23:03 88 12/11/18 23:00 125/71 12/11/18 23:00 88 26 120/69 (86) 98 12/11/18 22:47 126/72 12/11/18 22:45 88 26 106/58 (74) 98 12/11/18 22:30 89 26 126/72 (90) 98 12/11/18 22:15 90 26 118/58 (78) 98 12/11/18 22:00 118/58 12/11/18 22:00 88 118/58 12/11/18 22:00 90 26 129/70 (89) 98 12/11/18 21:45 94 26 128/72 (90) 98 19 21:30 85 26 121/69 (86) 97 12/11/18 21:15 85 26 118/52 (74) 97 12/11/18 21:01 86 26 75 12/11/18 21:00 86 27 123/68 (86) 98 12/11/18 21:00 118/52 12/11/18 21:00 75 12/11/18 20:45 86 26 121/63 (82) 100 12/11/18 20:30 86 27 121/70 (87) 100 12/11/18 20:15 85 26 117/63 (81) 100 12/11/18 20:00 117/63 12/11/18 20:00 85 26 117/62 (80) 100 12/11/18 20:00 Mechanical Ventilator 12/11/18 20:00 90 12/11/18 19:45 85 26 115/72 (86) 100 12/11/18 19:30 85 26 112/69 (83) 100 12/11/18 19:26 85 26 100 Mechanical Ventilator 90 12/11/18 19:23 85 12/11/18 19:16 85 26 97 Mechanical Ventilator 90 86 26 90 12/11/18 19:15 85 26 97/64 (75) 99 12/11/18 19:00 85 26 111/61 (78) 97 12/11/18 19:00 97.4 85 26 111/61 (78) 97 12/11/18 19:00 111/61 12/11/18 18:30 84 26 106/66 (79) 97 12/11/18 18:17 106/65 12/11/18 18:15 84 26 103/54 (70) 98 12/11/18 18:00 85 26 106/65 (79) 98 12/11/18 18:00 103/54 12/11/18 17:45 85 26 104/64 (77) 97 12/11/18 17:30 85 26 101/62 (75) 95 12/11/18 17:15 85 26 100/59 (73) 93 12/11/18 17:00 84 26 98/57 (71) 93 12/11/18 17:00 85 26 100 12/11/18 17:00 98/57 12/11/18 16:30 86 111/55 12/11/18 16:15 87 26 111/55 (73) 97 12/11/18 16:00 Mechanical Ventilator 12/11/18 16:00 97.3 91 26 113/61 (78) 96 12/11/18 16:00 113/61 12/11/18 16:00 100 12/11/18 15:45 88 26 116/66 (83) 98 12/11/18 15:31 87 12/11/18 15:30 87 26 104/56 (72) 96 12/11/18 15:00 84/55 12/11/18 15:00 87 26 84/55 (65) 96 12/11/18 14:52 87 26 100 12/11/18 14:45 87 26 87/49 (62) 95 12/11/18 14:30 88 26 81/47 (58) 95 12/11/18 14:15 88 26 87/43 (58) 95 12/11/18 14:13 89/51 12/11/18 14:00 87/43 12/11/18 14:00 88 87/43 12/11/18 14:00 89 26 90/35 (53) 95 12/11/18 13:30 92 26 91/48 (62) 91 12/11/18 13:00 90 26 90 Mechanical Ventilator 90 94 26 90 12/11/18 13:00 93 26 89/51 (64) 92 12/11/18 13:00 88/47 12/11/18 12:30 96 26 96/50 (65) 93 12/11/18 12:00 98.6 92 26 100/52 (68) 95 12/11/18 12:00 90 12/11/18 12:00 98/49 12/11/18 12:00 Mechanical Ventilator 12/11/18 11:32 86 12/11/18 11:30 98 26 112/44 (66) 95 Height (Feet): 5 Height (Inches): 8.00 Weight (Pounds): 230 General Appearance: other - + tach and vent, + pressors, no change in mental status HEENT: normocephalic, no JVD, status post trach Respiratory/Chest: crackles/rales, rhonchi - bilaterally Cardiovascular: normal rate, regular rhythm, no gallop/murmur Abdomen: normal bowel sounds, soft, non tender, no organomegaly Genitourinary: other - + nava - urine cloudy Extremities: no cyanosis Skin: other - no new rash, wounds are covered Neurologic/Psychiatric: motor weakness, other - weak, poorly responsive, on vent Lymphatic: no neck adenopathy Musculoskeletal: no effusion Objective 11/11/18 - chest x-ray - IMPRESSION: 1. Hypoventilatory lungs. Elevated right hemidiaphragm. Slightly improved vascular congestion. Similar bibasilar lung atelectasis and airspace disease. 2. Query right pleural effusion. 2-D echo - no vegetations mentioned, report noted sacral x-ray - no osteo mentioned, report noted 11/14/18 - Technique: One view of the chest Comparison: November 13, 2018 post PICC radiograph Findings: Bilateral interstitial and alveolar edema versus infiltrates appear slightly worse. There is increasing obscuration of left hemidiaphragm, may reflect increasing pleural fluid as well. The heart remains enlarged. Previously demonstrated left arm PICC has been removed. Stable right arm PICC. Impression: Slightly worsening bilateral interstitial and airspace infiltrates versus edema, over one day 11/16/18 - chest x-ray Procedure: XRAY Chest 1v Indication: Dyspnea Technique: One view of the chest Comparison: November 14, 2018 Findings: Bilateral interstitial edema persists. Tracheostomy, right arm PICC remain. The heart is enlarged. Impression: Bilateral interstitial edema, unchanged over [address] abdomen and pelvis: Impression: No definite acute process Diverticulosis. No evidence of diverticulitis Extensive edema of the subcutaneous fat. 2 cm focal fluid collection/edema seen within the incision Moderate amount retained dense stool. Correlate with any clinical history of constipation Hiatal hernia. Gastrostomy Left renal parapelvic cysts Apparent prior hysterectomy Chest x-ray - 11/23/18 - Technique: One view of the chest Comparison: 11/20/2018 Findings: Less optimal inspiration currently, with resultant crowding of the bronchovascular markings. Interstitial congestion is probably not significantly changed, allowing for differences in exposure technique. Tracheostomy remains. Right arm PICC remains. Impression: Unchanged, over 3 days, findings as above. Chest x-ray - 11/26/18 - IMPRESSION: 1. Rotated film. Increased hazy opacity at the left lung and left retrocardiac opacity. 2. Decreased left pleural effusion. 3. Elevated right hemidiaphragm with probable pleural effusion and consolidation, similar. Chest x-ray - 11/30/18 - Findings: Pulmonary edema again demonstrated. PICC line is stable as well as tracheostomy. Heart is enlarged. Basilar atelectasis suspected. The diaphragm is poorly seen. Underlying parenchymal infiltrate or other disease and/or pleural effusion may be present. IMPRESSION: Pulmonary edema Chest x-ray - 12/06/18 - IMPRESSION: Significant worsening of aeration with increased airspace opacities in the right , involving nearly the entire right lung. Although findings may be related to asymmetric pulmonary edema the possibility of pneumonia has to be considered. Clinical correlation and follow-up recommended. Likely layering right-sided pleural effusion. Tracheostomy tube and PICC line remain in place. Chest x-ray - 12/09/18 - FINDINGS: Lungs: Reduced lung volumes with bilateral pulmonary opacities. Retrocardiac atelectasis consolidation. Pleural space: Right pleural effusion. No pneumothorax. Heart: cardiomegaly. Mediastinum: Unremarkable. Bones joints: No acute fracture. Tubes, lines and devices: Right PICC line tip is difficult to delineate, it may cross midline. Tracheostomy. IMPRESSION: 1. Reduced lung volumes with bilateral pulmonary opacities. Could be edema and or pneumonia. There is a broader differential. 2. Right pleural effusion. 3. Right PICC line tip is difficult to delineate, it may cross midline rather than extend into the SVC. Chest x-ray - 12/11/18 - Comparison: 12/09/2018 A single view chest radiograph was obtained. Findings: There is evidence of probable new infiltrate in the right upper lobe and right perihilar region. Tracheostomy again demonstrated. In addition there are mixed interstitial alveolar densities bilaterally. Cardiomegaly is present. A right PICC line is present in good position with the tip projected over the innominate vein. IMPRESSION: Worsening infiltrates likely new within the right upper lobe and perihilar region. Other superimposed infiltrates versus pulmonary edema again noted. Microbiology Date/Time Source Procedure Growth Status 12/06/18 16:15 Blood Blood Culture - Final NO GROWTH AFTER 5 DAYS Complete 12/11/18 13:30 Sputum Induced Gram Stain - Final Resulted 12/11/18 13:30 Sputum Culture - Preliminary Gram Negative Bacillus 1 Resulted 12/06/18 17:45 Indwelling Cath Urine Culture - Final Proteus Mirabilis Complete 11/13/18 21:55 Catheter Site Catheter Tip Culture - Final Escherichia Coli Complete Microbiology Date/Time Source Procedure Growth Status 12/11/18 13:30 Sputum Induced Gram Stain - Final Resulted 12/11/18 13:30 Sputum Culture - Preliminary Gram Negative Bacillus 1 Resulted Laboratory Tests Test 12/12/18 03:15 White Blood Count 30.9 K/UL (4.8-10.8) #*H Red Blood Count 3.31 M/UL (4.20-5.40) L Hemoglobin 8.7 G/DL (12.0-16.0) L Hematocrit 28.1 % (37.0-47.0) L Mean Corpuscular Volume 85 FL (80-99) Mean Corpuscular Hemoglobin 26.4 PG (27.0-31.0) L Mean Corpuscular Hemoglobin Concent 31.0 G/DL (32.0-36.0) L Red Cell Distribution Width 18.2 % (11.6-14.8) H Platelet Count 215 K/UL (150-450) Mean Platelet Volume 6.7 FL (6.5-10.1) Neutrophils (%) (Auto) % (45.0-75.0) Lymphocytes (%) (Auto) % (20.0-45.0) Monocytes (%) (Auto) % (1.0-10.0) Eosinophils (%) (Auto) % (0.0-3.0) Basophils (%) (Auto) % (0.0-2.0) Differential Total Cells Counted 100 Neutrophils % (Manual) 81 % (45-75) H Lymphocytes % (Manual) 5 % (20-45) L Monocytes % (Manual) 5 % (1-10) Eosinophils % (Manual) 0 % (0-3) Basophils % (Manual) 0 % (0-2) Band Neutrophils 9 % (0-8) H Platelet Estimate Adequate Platelet Morphology Normal Hypochromasia 1+ Zeinab Cells 1+ Sodium Level 130 MMOL/L (136-145) #L Potassium Level 4.1 MMOL/L (3.5-5.1) Chloride Level 94 MMOL/L (98-107) L Carbon Dioxide Level 10 MMOL/L (21-32) L Anion Gap 27 mmol/L (5-15) H Blood Urea Nitrogen 42 mg/dL (7-18) H Creatinine 1.9 MG/DL (0.55-1.30) H Estimat Glomerular Filtration Rate mL/min (>60) Glucose Level 170 MG/DL (74-106) H Calcium Level 7.8 MG/DL (8.5-10.1) L Total Bilirubin 2.0 MG/DL (0.2-1.0) H Direct Bilirubin 1.5 MG/DL (0.0-0.3) H Aspartate Amino Transf (AST/SGOT) 1122 U/L (15-37) H Alanine Aminotransferase (ALT/SGPT) 342 U/L (12-78) H Alkaline Phosphatase 335 U/L (46-116) H Total Protein 5.4 G/DL (6.4-8.2) L Albumin 1.2 G/DL (3.4-5.0) L Globulin 4.2 g/dL Albumin/Globulin Ratio 0.3 (1.0-2.7) L Current Medications Medications (Trade) Dose Ordered Sig/Lupe Route PRN Reason Start Time Stop Time Status Last Admin Dose Admin Acetaminophen (Tylenol) 650 mg Q4H PRN GT Mild Pain/Temp > 100.5 12/11/18 05:12 01/07/19 05:11 12/11/18 09:22 Albuterol/ Ipratropium (Albuterol/ Ipratropium) 3 ml Q4H PRN HHN Shortness of Breath 12/11/18 05:13 12/13/18 05:12 Albuterol/ Ipratropium (Albuterol/ Ipratropium) 3 ml Q6HRT HHN 12/11/18 07:00 12/13/18 18:59 12/12/18 07:07 Bisacodyl (Dulcolax) 10 mg DAILY PRN RECTAL Constipation 12/11/18 05:12 01/07/19 05:11 Cefepime HCl 2 gm/ Dextrose 110 ml @ 220 mls/hr Q24H IV 12/11/18 15:00 12/18/18 14:59 12/11/18 15:41 Chlorhexidine Gluconate (Corazon-Hex 2%) 1 applic DAILY@2000 TOPIC 12/11/18 20:00 01/07/19 19:59 12/11/18 20:51 Dextrose (Dextrose 50%) 25 ml Q30M PRN IV Hypoglycemia 12/11/18 05:15 01/07/19 04:44 Dextrose (Dextrose 50%) 50 ml Q30M PRN IV Hypoglycemia 12/11/18 05:15 01/07/19 04:44 Enoxaparin Sodium (Lovenox) 40 mg DAILY SUBQ 12/11/18 09:00 01/07/19 08:59 12/12/18 08:51 Famotidine (Pepcid) 20 mg EVERY 12 HOURS GT 12/11/18 09:00 01/07/19 20:59 12/12/18 08:48 Insulin Aspart (NovoLOG) Q6HR SUBQ 12/11/18 06:00 01/07/19 05:59 12/12/18 06:28 Insulin Detemir (Levemir) 4 units EVERY 12 HOURS SUBQ 12/11/18 09:00 01/07/19 20:59 12/12/18 08:52 Labetalol HCl (Normodyne) 200 mg Q8HR GT 12/11/18 06:00 01/07/19 05:59 Lactulose (Cephulac) 10 gm THREE TIMES A DAY GT 12/11/18 09:00 01/07/19 17:59 12/12/18 08:48 Levetiracetam (Keppra) 1,500 mg Q12HR GT 12/11/18 09:00 01/07/19 08:59 12/12/18 08:48 Levofloxacin 150 ml @ 150 mls/hr Q48H IVPB 12/12/18 18:00 12/19/18 17:59 Magnesium Hydroxide (Mom) 30 ml DAILY PRN GT Constipation 12/11/18 05:15 01/07/19 05:14 Metoclopramide HCl (Reglan) 5 mg Q8H PRN IVP Nausea & Vomiting 12/11/18 05:15 01/09/19 05:14 Metronidazole 100 ml @ 100 mls/hr Q8HR IVPB 12/11/18 14:00 12/18/18 13:59 12/12/18 05:46 Norepinephrine Bitartrate 8 mg/ Dextrose 500 ml @ 0 mls/hr Q24H IV 12/11/18 09:00 01/10/19 08:59 12/12/18 08:48 Ondansetron HCl (Zofran) 4 mg Q6H PRN GT Nausea & Vomiting 12/11/18 05:16 01/07/19 05:15 Phenobarbital (PHENobarbital) 60 mg BID GT 12/11/18 18:00 01/07/19 08:59 12/12/18 08:48 Phenylephrine HCl 100 mg/Dextrose 500 ml @ 0 mls/hr Q24H IV 12/11/18 09:00 01/10/19 08:59 12/12/18 09:52 Phenytoin (Dilantin) 100 mg Q8HR GT 12/11/18 06:00 01/07/19 05:59 12/12/18 05:46 Polyethylene Glycol (Miralax) 17 gm DAILYPRN PRN GT Constipation 12/11/18 05:17 01/07/19 05:16 Polymyxin B Sulfate [id number] units/Sodium Chloride 550 ml @ 550 mls/hr Q12HR@0400,1600 IVPB 12/12/18 04:00 12/19/18 03:59 12/12/18 03:37 Sennosides (Senokot) 8.6 mg EVERY 12 HOURS GT 12/11/18 09:00 01/07/19 20:59 12/12/18 08:48 Vasopressin 100 units/Sodium Chloride 100 ml @ 0 mls/hr Q24H IV 12/11/18 14:45 01/10/19 14:44 12/11/18 15:11 Dasha Crews MD Dec 12, 2018 11:19
--- NOTE | 2018-12-12 11:43 | NUR ---
[employer] SI: RESP FAILURE TRACH/VENT DEPENDENT SEPSIS T. 97.3 HR 79 RR 26 B/P 121/63 AC 20 TV 600 FIO2 75% PEEP 5 WBC 30.9 BANDS 9 BUN 42 CR 1.9 AST 1122 ALT 342 ALK PHOS 335 IS: LEVOPHED GTT PHENYLEPHRINE GTT ZYVOX IV LEVAQUIN IV CEFEPIME IV FLAGYL IV ICU STATUS
--- NOTE | 2018-12-12 11:43 | Pulmonolgy Critical Care Note ---
Critical Care - Asmt/Plan Problems: (1) Sepsis (2) Tracheostomy dependence (3) Ventilator dependence (4) MRSA (methicillin resistant staphylococcus aureus) pneumonia (5) UTI (urinary tract infection) (6) Cardiac arrest (7) Anoxic brain damage (8) Tongue abnormality (9) Seizure disorder (10) Diabetes (11) HTN (hypertension) (12) Fever (13) Decubitus skin ulcer (14) Protein calorie malnutrition (15) DAMASO (acute kidney injury) (16) High anion gap metabolic acidosis Respiratory: adjust FIO2, CXR, ABG, other - HHN's pulm hygiene/mobilize Cardiac: continue pressors - Titrate to keep MAP > 60, continue to monitor HR/ BP, other - Check cortisol, start stress dose steroids Renal: F/U I&O, check electrolytes, other - albumin bolus Infectious Disease: continue antibiotics - per ID: inhaled colistin, cefepime, zyvox, flagyl, levo, patricia Gastrointestinal: hold feedings, other - GI recs Endocrine: monitor blood sugar, continue sliding scale insulin, other - cortisol, stress dose steroids Hematologic: monitor H/H Neurologic: keep patient comfortable - monitor MS Prophylaxis: Protonix, other - LMWH Disposition: keep in ICU Time Spent (Minutes): 60 Notes Reviewed: program aide group work, ID, GI, other - Discuss GOC, FC Discussed with: nurses, consultants, family member Critical Care - Objective Last 24 Hour Vital Signs Date Time Temp Pulse Resp B/P (MAP) Pulse Ox O2 Delivery O2 Flow Rate FiO2 12/12/18 11:00 80 26 103/55 (71) 98 12/12/18 10:45 80 26 104/59 (74) 97 12/12/18 10:30 79 26 92/68 (76) 100 12/12/18 10:30 92/68 12/12/18 10:15 116/65 12/12/18 10:15 79 26 116/65 (82) 100 12/12/18 10:00 113/56 12/12/18 10:00 79 26 113/56 (75) 100 12/12/18 09:52 78 117/59 12/12/18 09:45 117/59 12/12/18 09:45 79 26 117/59 (78) 99 12/12/18 09:30 79 26 123/62 (82) 99 12/12/18 09:30 123/62 12/12/18 09:15 123/67 12/12/18 09:15 80 26 123/67 (85) 99 12/12/18 09:00 130/66 12/12/18 09:00 79 24 130/66 (87) 100 12/12/18 08:48 103/50 12/12/18 08:45 76 26 100/57 (71) 96 12/12/18 08:45 100/57 12/12/18 08:45 77 26 Mechanical Ventilator 75 75 12/12/18 08:30 78 26 103/50 (67) 97 12/12/18 08:30 103/50 12/12/18 08:15 78 26 113/61 (78) 98 12/12/18 08:15 113/61 12/12/18 08:00 79 12/12/18 08:00 Mechanical Ventilator 12/12/18 08:00 121/63 12/12/18 08:00 75 12/12/18 08:00 97.3 79 26 121/63 (82) 99 12/12/18 07:45 79 26 126/65 (85) 100 12/12/18 07:45 126/65 12/12/18 07:30 80 26 130/66 (87) 100 12/12/18 07:30 130/66 12/12/18 07:17 75 26 100 75 12/12/18 07:15 134/72 12/12/18 07:15 79 26 134/72 (92) 100 12/12/18 07:07 79 26 Mechanical Ventilator 75 75 12/12/18 07:00 80 26 130/67 (88) 100 12/12/18 07:00 130/67 12/12/18 06:45 81 26 131/70 (90) 100 12/12/18 06:30 80 26 126/68 (87) 100 12/12/18 06:15 123/63 12/12/18 06:15 80 26 123/63 (83) 100 12/12/18 06:00 128/65 12/12/18 06:00 78 26 129/65 (86) 100 12/12/18 05:47 81 128/66 12/12/18 05:46 136/74 12/12/18 05:45 80 26 136/74 (94) 100 12/12/18 05:30 128/66 12/12/18 05:30 80 26 128/66 (86) 100 12/12/18 05:15 79 26 124/68 (86) 100 12/12/18 05:13 124/68 12/12/18 05:00 81 26 113/54 (73) 98 12/12/18 05:00 113/54 12/12/18 04:59 80 26 75 12/12/18 04:45 118/63 12/12/18 04:45 80 26 118/63 (81) 99 12/12/18 04:30 81 26 113/54 (73) 98 12/12/18 04:30 113/54 12/12/18 04:15 103/62 12/12/18 04:15 82 26 103/62 (76) 98 12/12/18 04:00 75 12/12/18 04:00 111/59 12/12/18 04:00 97.7 85 26 111/59 (76) 98 12/12/18 04:00 Mechanical Ventilator 12/12/18 03:45 87 26 118/60 (79) 97 12/12/18 03:45 118/60 12/12/18 03:39 120/63 12/12/18 03:30 88 26 120/63 (82) 97 12/12/18 03:30 124/65 12/12/18 03:16 87 12/12/18 03:15 89 26 124/65 (84) 99 12/12/18 03:15 164/78 12/12/18 03:14 88 26 75 12/12/18 03:00 169/81 12/12/18 03:00 90 26 169/81 (110) 100 12/12/18 02:45 169/93 12/12/18 02:45 90 26 169/93 (118) 99 12/12/18 02:30 125/73 12/12/18 02:30 87 26 125/73 (90) 96 12/12/18 02:15 90 16 122/70 (87) 99 12/12/18 02:15 122/70 12/12/18 02:00 133/74 12/12/18 02:00 89 26 133/74 (93) 100 12/12/18 01:45 89 26 133/74 (93) 99 12/12/18 01:30 89 26 133/82 (99) 99 12/12/18 01:26 88 26 100 Mechanical Ventilator 75 12/12/18 01:16 88 26 98 Mechanical Ventilator 75 88 26 75 12/12/18 01:15 89 26 126/73 (90) 99 12/12/18 01:00 133/82 12/12/18 01:00 88 26 124/67 (86) 99 12/12/18 00:45 87 26 133/74 (93) 99 12/12/18 00:30 87 26 133/70 (91) 100 12/12/18 00:15 88 26 133/70 (91) 100 12/12/18 00:00 88 12/12/18 00:00 Mechanical Ventilator 12/12/18 00:00 88 26 133/72 (92) 99 12/12/18 00:00 88 131/73 12/11/18 23:45 87 26 131/73 (92) 99 12/11/18 23:30 89 26 132/68 (89) 99 12/11/18 23:15 88 26 125/71 (89) 99 12/11/18 23:12 88 26 75 12/11/18 23:03 88 12/11/18 23:00 125/71 12/11/18 23:00 88 26 120/69 (86) 98 12/11/18 22:47 126/72 12/11/18 22:45 88 26 106/58 (74) 98 12/11/18 22:30 89 26 126/72 (90) 98 12/11/18 22:15 90 26 118/58 (78) 98 12/11/18 22:00 118/58 12/11/18 22:00 88 118/58 12/11/18 22:00 90 26 129/70 (89) 98 12/11/18 21:45 94 26 128/72 (90) 98 12/11/18 21:30 85 26 121/69 (86) 97 12/11/18 21:15 85 26 118/52 (74) 97 12/11/18 21:01 86 26 75 12/11/18 21:00 86 27 123/68 (86) 98 12/11/18 21:00 118/52 12/11/18 21:00 75 12/11/18 20:45 86 26 121/63 (82) 100 12/11/18 20:30 86 27 121/70 (87) 100 12/11/18 20:15 85 26 117/63 (81) 100 12/11/18 20:00 117/63 12/11/18 20:00 85 26 117/62 (80) 100 12/11/18 20:00 Mechanical Ventilator 12/11/18 20:00 90 12/11/18 19:45 85 26 115/72 (86) 100 12/11/18 19:30 85 26 112/69 (83) 100 12/11/18 19:26 85 26 100 Mechanical Ventilator 90 12/11/18 19:23 85 12/11/18 19:16 85 26 97 Mechanical Ventilator 90 86 26 90 12/11/18 19:15 85 26 97/64 (75) 99 12/11/18 19:00 85 26 111/61 (78) 97 12/11/18 19:00 97.4 85 26 111/61 (78) 97 12/11/18 19:00 111/61 12/11/18 18:30 84 26 106/66 (79) 97 12/11/18 18:17 106/65 12/11/18 18:15 84 26 103/54 (70) 98 12/11/18 18:00 85 26 106/65 (79) 98 12/11/18 18:00 103/54 12/11/18 17:45 85 26 104/64 (77) 97 12/11/18 17:30 85 26 101/62 (75) 95 12/11/18 17:15 85 26 100/59 (73) 93 12/11/18 17:00 84 26 98/57 (71) 93 12/11/18 17:00 85 26 100 12/11/18 17:00 98/57 12/11/18 16:30 86 111/55 12/11/18 16:15 87 26 111/55 (73) 97 12/11/18 16:00 Mechanical Ventilator 12/11/18 16:00 97.3 91 26 113/61 (78) 96 12/11/18 16:00 113/61 12/11/18 16:00 100 12/11/18 15:45 88 26 116/66 (83) 98 12/11/18 15:31 87 12/11/18 15:30 87 26 104/56 (72) 96 12/11/18 15:00 84/55 12/11/18 15:00 87 26 84/55 (65) 96 12/11/18 14:52 87 26 100 12/11/18 14:45 87 26 87/49 (62) 95 12/11/18 14:30 88 26 81/47 (58) 95 12/11/18 14:15 88 26 87/43 (58) 95 12/11/18 14:13 89/51 12/11/18 14:00 87/43 12/11/18 14:00 88 87/43 12/11/18 14:00 89 26 90/35 (53) 95 12/11/18 13:30 92 26 91/48 (62) 91 12/11/18 13:00 90 26 90 Mechanical Ventilator 90 94 26 90 12/11/18 13:00 93 26 89/51 (64) 92 12/11/18 13:00 88/47 12/11/18 12:30 96 26 96/50 (65) 93 12/11/18 12:00 98.6 92 26 100/52 (68) 95 12/11/18 12:00 90 12/11/18 12:00 98/49 12/11/18 12:00 Mechanical Ventilator Status: obtunded Condition: critical HEENT: other - macroglossia Neck: trach Lungs: rhonchi Heart: HR/BP unstable Abdomen: soft, non-tender, active bowel sounds, feeding tube Extremities: edema - 2+ x 4 Decubiti: location - ssacral, stage - 4 Micro: Microbiology Date/Time Source Procedure Growth Status 12/11/18 13:30 Sputum Induced Gram Stain - Final Resulted 12/11/18 13:30 Sputum Culture - Preliminary Gram Negative Bacillus 1 Resulted Accucheck: 164 Blood Sugars: BS controlled Critical Care - Subjective ROS Limited/Unobtainable: Yes ICU Day: 3 Intubation Day: NA Interval Events: Vomiting fecal material CR 1.9 WCT 30 Tm 101.8 Abx broadened No change in MS or secretions NE 30 JENNI 20 VASO 0.04 Condition: critical IV Access: PICC EKG Rhythm: Sinus Rhythm FI02: 75 Vent Support Breath Rate: 26 Vent Support Mode: AC Vent Tidal Volume: 600 Sputum Amount: Small PEEP: 5.0 PIP: 40 Secretions: small thick Fluids: SLIV Drips: NE 30 JENNI 20 VASO 0.04 Tube Feeding Amount: 35 I&O: Intake and Output 12/11/18 12/12/18 19:00 07:00 Intake Total 3241.685 ml 2447.88 ml Output Total 1160 ml 500 ml Balance 2081.685 ml 1947.88 ml IV Total 3111.685 ml 2317.88 ml Other 130 ml 130 ml Output Urine Total 10 ml 0 ml Gastric Drainage Total 1150 ml Other 500 ml Subjective: SOWMYA Labs: Laboratory Tests Test 12/12/18 03:15 White Blood Count 30.9 K/UL (4.8-10.8) #*H Red Blood Count 3.31 M/UL (4.20-5.40) L Hemoglobin 8.7 G/DL (12.0-16.0) L Hematocrit 28.1 % (37.0-47.0) L Mean Corpuscular Volume 85 FL (80-99) Mean Corpuscular Hemoglobin 26.4 PG (27.0-31.0) L Mean Corpuscular Hemoglobin Concent 31.0 G/DL (32.0-36.0) L Red Cell Distribution Width 18.2 % (11.6-14.8) H Platelet Count 215 K/UL (150-450) Mean Platelet Volume 6.7 FL (6.5-10.1) Neutrophils (%) (Auto) % (45.0-75.0) Lymphocytes (%) (Auto) % (20.0-45.0) Monocytes (%) (Auto) % (1.0-10.0) Eosinophils (%) (Auto) % (0.0-3.0) Basophils (%) (Auto) % (0.0-2.0) Differential Total Cells Counted 100 Neutrophils % (Manual) 81 % (45-75) H Lymphocytes % (Manual) 5 % (20-45) L Monocytes % (Manual) 5 % (1-10) Eosinophils % (Manual) 0 % (0-3) Basophils % (Manual) 0 % (0-2) Band Neutrophils 9 % (0-8) H Platelet Estimate Adequate Platelet Morphology Normal Hypochromasia 1+ Zeinab Cells 1+ Sodium Level 130 MMOL/L (136-145) #L Potassium Level 4.1 MMOL/L (3.5-5.1) Chloride Level 94 MMOL/L (98-107) L Carbon Dioxide Level 10 MMOL/L (21-32) L Anion Gap 27 mmol/L (5-15) H Blood Urea Nitrogen 42 mg/dL (7-18) H Creatinine 1.9 MG/DL (0.55-1.30) H Estimat Glomerular Filtration Rate mL/min (>60) Glucose Level 170 MG/DL (74-106) H Calcium Level 7.8 MG/DL (8.5-10.1) L Total Bilirubin 2.0 MG/DL (0.2-1.0) H Direct Bilirubin 1.5 MG/DL (0.0-0.3) H Aspartate Amino Transf (AST/SGOT) 1122 U/L (15-37) H Alanine Aminotransferase (ALT/SGPT) 342 U/L (12-78) H Alkaline Phosphatase 335 U/L (46-116) H Total Protein 5.4 G/DL (6.4-8.2) L Albumin 1.2 G/DL (3.4-5.0) L Globulin 4.2 g/dL Albumin/Globulin Ratio 0.3 (1.0-2.7) L Balbir Dejesus MD Dec 12, 2018 11:43
--- NOTE | 2018-12-12 11:43 | Diagnostic Imaging Report ---
Indication: Dyspnea Comparison: 12/11/2018 A single view chest radiograph was obtained. Findings: Extensive infiltrate noted within the right lung again demonstrated. There is likely some degree of pulmonary vascular congestion as well. Heart is enlarged. Lung volumes are low. Tracheostomy and PICC line again noted. IMPRESSION: Extensive pulmonary infiltrate in the right lung. Suspected superimposed pulmonary vascular congestion
--- NOTE | 2018-12-12 11:43 | Diagnostic Imaging Report ---
Indication: Abdominal pain Comparison: None Single view of the abdomen obtained Findings: There is an immense amount of stool present within the sigmoid colon and rectum which are distended. Bones are osteopenic. There are calcifications in the pelvis which are probably related to fibroids. There is a catheter projected over the left side of the abdomen which may be a gastrostomy. The heart appears enlarged. Bones are osteopenic. The sacroiliac joints are irregular and ill-defined bilaterally. IMPRESSION: Fecal impaction. Sacroiliitis suspected. Osteoporosis Pelvic calcifications possibly related to uterine fibroids. Gastrostomy
--- NOTE | 2018-12-12 12:00 | NUR ---
NURSE NOTES: Patient Blood pressure 95/58 on levophed 30mcg/hr, vasopressin 2.4mL/hr, and phenylephrine 20mcg/min. Patient temp 94.1. Warming blanket placed on patient. Patient remains unresponsive with eyes closed and does not respond to voice, light or deep pain. Gag reflex absent. Patient remains on trach to ventilator with setting of AC 26, TV 600, FiO2 75%, and PEEP 5. Patient tolerating setting with O2 saturation 100%, HR 81, and RR 26. Patient has gastrostomy tube that is hooked to low intermittent suction at this time. Small amount of green gastric content present in the suction canister. Patient has nava for urine retention with no output noted at this time. Patient has multiple wounds. Patient has sacral full thickness pressure wound, redness of the trach insertion site, and full thickness pressure ulcer of the right and left ear. Patient has right upper arm PICC that is patent, asymptomatic and dressing remains intact. Patient bed in low position with bed alarm on and call light in reach at this time. Will continue to monitor blood pressure and vital signs and titrate medications per protocol. Addendum: 12/12/18 at 1825 by Samantha Dominguez RN Oral care performed and patient repositioned.
--- NOTE | 2018-12-12 12:26 | NUR ---
RADIOLOGY DEPT., ABDOMEN X-RAY COMPLETED.-P.DYE
--- NOTE | 2018-12-12 12:44 | Nephrology Progress Note ---
Assessment/Plan Problem List: (1) Fever (2) Diabetes (3) Seizure disorder (4) HTN (hypertension) (5) Tracheostomy dependence (6) Anoxic brain damage (7) Hyponatremia Plan #Acute kidney injury likely ATN due to shock - continue with pressors to maintain MAP over 65 - start bicarb drip at 100cc/hr - monitor UOP - strict I&Os #hyponatremia- likely SIADH due to valproic acid- hypo-osmolar -now improving with diuresis - change to NS flushes for meds - Abx in NS - follow BMP #H/o HTN- now hypotensive - hold antihypertensive - pressors as above Subjective Subjective coded yesterday likely due to aspiration now in ICU on multiple pressors Cr uptrending UOP decreasing Objective Objective Last 24 Hour Vital Signs Date Time Temp Pulse Resp B/P (MAP) Pulse Ox O2 Delivery O2 Flow Rate FiO2 12/12/18 11:00 80 26 103/55 (71) 98 12/12/18 10:45 80 26 104/59 (74) 97 12/12/18 10:30 79 26 92/68 (76) 100 12/12/18 10:30 92/68 12/12/18 10:15 116/65 12/12/18 10:15 79 26 116/65 (82) 100 12/12/18 10:00 113/56 12/12/18 10:00 79 26 113/56 (75) 100 12/12/18 09:52 78 117/59 12/12/18 09:45 117/59 12/12/18 09:45 79 26 117/59 (78) 99 12/12/18 09:30 79 26 123/62 (82) 99 12/12/18 09:30 123/62 12/12/18 09:15 123/67 12/12/18 09:15 80 26 123/67 (85) 99 12/12/18 09:00 130/66 12/12/18 09:00 79 24 130/66 (87) 100 12/12/18 08:48 103/50 12/12/18 08:45 76 26 100/57 (71) 96 12/12/18 08:45 100/57 12/12/18 08:45 77 26 Mechanical Ventilator 75 75 12/12/18 08:30 78 26 103/50 (67) 97 12/12/18 08:30 103/50 12/12/18 08:15 78 26 113/61 (78) 98 12/12/18 08:15 113/61 12/12/18 08:00 79 12/12/18 08:00 Mechanical Ventilator 12/12/18 08:00 121/63 12/12/18 08:00 75 12/12/18 08:00 97.3 79 26 121/63 (82) 99 12/12/18 07:45 79 26 126/65 (85) 100 12/12/18 07:45 126/65 12/12/18 07:30 80 26 130/66 (87) 100 12/12/18 07:30 130/66 12/12/18 07:17 75 26 100 75 12/12/18 07:15 134/72 12/12/18 07:15 79 26 134/72 (92) 100 12/12/18 07:07 79 26 Mechanical Ventilator 75 75 12/12/18 07:00 80 26 130/67 (88) 100 12/12/18 07:00 130/67 12/12/18 06:45 81 26 131/70 (90) 100 12/12/18 06:30 80 26 126/68 (87) 100 12/12/18 06:15 123/63 12/12/18 06:15 80 26 123/63 (83) 100 12/12/18 06:00 128/65 12/12/18 06:00 78 26 129/65 (86) 100 12/12/18 05:47 81 128/66 12/12/18 05:46 136/74 12/12/18 05:45 80 26 136/74 (94) 100 12/12/18 05:30 128/66 12/12/18 05:30 80 26 128/66 (86) 100 12/12/18 05:15 79 26 124/68 (86) 100 12/12/18 05:13 124/68 12/12/18 05:00 81 26 113/54 (73) 98 12/12/18 05:00 113/54 12/12/18 04:59 80 26 75 12/12/18 04:45 118/63 12/12/18 04:45 80 26 118/63 (81) 99 12/12/18 04:30 81 26 113/54 (73) 98 12/12/18 04:30 113/54 12/12/18 04:15 103/62 12/12/18 04:15 82 26 103/62 (76) 98 12/12/18 04:00 75 12/12/18 04:00 111/59 12/12/18 04:00 97.7 85 26 111/59 (76) 98 12/12/18 04:00 Mechanical Ventilator 12/12/18 03:45 87 26 118/60 (79) 97 12/12/18 03:45 118/60 12/12/18 03:39 120/63 12/12/18 03:30 88 26 120/63 (82) 97 12/12/18 03:30 124/65 12/12/18 03:16 87 12/12/18 03:15 89 26 124/65 (84) 99 12/12/18 03:15 164/78 12/12/18 03:14 88 26 75 12/12/18 03:00 169/81 12/12/18 03:00 90 26 169/81 (110) 100 12/12/18 02:45 169/93 12/12/18 02:45 90 26 169/93 (118) 99 12/12/18 02:30 125/73 12/12/18 02:30 87 26 125/73 (90) 96 12/12/18 02:15 90 16 122/70 (87) 99 12/12/18 02:15 122/70 12/12/18 02:00 133/74 12/12/18 02:00 89 26 133/74 (93) 100 12/12/18 01:45 89 26 133/74 (93) 99 12/12/18 01:30 89 26 133/82 (99) 99 12/12/18 01:26 88 26 100 Mechanical Ventilator 75 12/12/18 01:16 88 26 98 Mechanical Ventilator 75 88 26 75 12/12/18 01:15 89 26 126/73 (90) 99 12/12/18 01:00 133/82 12/12/18 01:00 88 26 124/67 (86) 99 12/12/18 00:45 87 26 133/74 (93) 99 12/12/18 00:30 87 26 133/70 (91) 100 12/12/18 00:15 88 26 133/70 (91) 100 12/12/18 00:00 88 12/12/18 00:00 Mechanical Ventilator 12/12/18 00:00 88 26 133/72 (92) 99 12/12/18 00:00 88 131/73 12/11/18 23:45 87 26 131/73 (92) 99 12/11/18 23:30 89 26 132/68 (89) 99 12/11/18 23:15 88 26 125/71 (89) 99 12/11/18 23:12 88 26 75 12/11/18 23:03 88 12/11/18 23:00 125/71 12/11/18 23:00 88 26 120/69 (86) 98 12/11/18 22:47 126/72 12/11/18 22:45 88 26 106/58 (74) 98 12/11/18 22:30 89 26 126/72 (90) 98 12/11/18 22:15 90 26 118/58 (78) 98 12/11/18 22:00 118/58 12/11/18 22:00 88 118/58 12/11/18 22:00 90 26 129/70 (89) 98 12/11/18 21:45 94 26 128/72 (90) 98 12/11/18 21:30 85 26 121/69 (86) 97 12/11/18 21:15 85 26 118/52 (74) 97 12/11/18 21:01 86 26 75 12/11/18 21:00 86 27 123/68 (86) 98 12/11/18 21:00 118/52 12/11/18 21:00 75 12/11/18 20:45 86 26 121/63 (82) 100 12/11/18 20:30 86 27 121/70 (87) 100 12/11/18 20:15 85 26 117/63 (81) 100 12/11/18 20:00 117/63 12/11/18 20:00 85 26 117/62 (80) 100 12/11/18 20:00 Mechanical Ventilator 12/11/18 20:00 90 12/11/18 19:45 85 26 115/72 (86) 100 12/11/18 19:30 85 26 112/69 (83) 100 9/23/19 19:26 85 26 100 Mechanical Ventilator 90 12/11/18 19:23 85 12/11/18 19:16 85 26 97 Mechanical Ventilator 90 86 26 90 12/11/18 19:15 85 26 97/64 (75) 99 12/11/18 19:00 85 26 111/61 (78) 97 12/11/18 19:00 97.4 85 26 111/61 (78) 97 12/11/18 19:00 111/61 12/11/18 18:30 84 26 106/66 (79) 97 12/11/18 18:17 106/65 12/11/18 18:15 84 26 103/54 (70) 98 12/11/18 18:00 85 26 106/65 (79) 98 12/11/18 18:00 103/54 12/11/18 17:45 85 26 104/64 (77) 97 12/11/18 17:30 85 26 101/62 (75) 95 12/11/18 17:15 85 26 100/59 (73) 93 12/11/18 17:00 84 26 98/57 (71) 93 12/11/18 17:00 85 26 100 12/11/18 17:00 98/57 12/11/18 16:30 86 111/55 12/11/18 16:15 87 26 111/55 (73) 97 12/11/18 16:00 Mechanical Ventilator 12/11/18 16:00 97.3 91 26 113/61 (78) 96 12/11/18 16:00 113/61 12/11/18 16:00 100 12/11/18 15:45 88 26 116/66 (83) 98 12/11/18 15:31 87 12/11/18 15:30 87 26 104/56 (72) 96 12/11/18 15:00 84/55 12/11/18 15:00 87 26 84/55 (65) 96 12/11/18 14:52 87 26 100 12/11/18 14:45 87 26 87/49 (62) 95 12/11/18 14:30 88 26 81/47 (58) 95 12/11/18 14:15 88 26 87/43 (58) 95 12/11/18 14:13 89/51 12/11/18 14:00 87/43 12/11/18 14:00 88 87/43 12/11/18 14:00 89 26 90/35 (53) 95 12/11/18 13:30 92 26 91/48 (62) 91 12/11/18 13:00 90 26 90 Mechanical Ventilator 90 94 26 90 12/11/18 13:00 93 26 89/51 (64) 92 12/11/18 13:00 88/47 Intake and Output 12/11/18 12/12/18 19:00 07:00 Intake Total 3241.685 ml 2447.88 ml Output Total 1160 ml 500 ml Balance 2081.685 ml 1947.88 ml IV Total 3111.685 ml 2317.88 ml Other 130 ml 130 ml Output Urine Total 10 ml 0 ml Gastric Drainage Total 1150 ml Other 500 ml Laboratory Tests 12/12/18 03:15: White Blood Count 30.9#*H, Red Blood Count 3.31L, Hemoglobin 8.7L, Hematocrit 28.1L, Mean Corpuscular Volume 85, Mean Corpuscular Hemoglobin 26.4L, Mean Corpuscular Hemoglobin Concent 31.0L, Red Cell Distribution Width 18.2H, Platelet Count 215, Mean Platelet Volume 6.7, Neutrophils (%) (Auto) , Lymphocytes (%) (Auto) , Monocytes (%) (Auto) , Eosinophils (%) (Auto) , Basophils (%) (Auto) , Differential Total Cells Counted 100, Neutrophils % ( Manual) 81H, Lymphocytes % (Manual) 5L, Monocytes % (Manual) 5, Eosinophils % ( Manual) 0, Basophils % (Manual) 0, Band Neutrophils 9H, Platelet Estimate Adequate, Platelet Morphology Normal, Hypochromasia 1+, Zeinab Cells 1+, Sodium Level 130#L, Potassium Level 4.1, Chloride Level 94L, Carbon Dioxide Level 10L, Anion Gap 27H, Blood Urea Nitrogen 42H, Creatinine 1.9H, Estimat Glomerular Filtration Rate , Glucose Level 170H, Calcium Level 7.8L, Total Bilirubin 2.0H, Direct Bilirubin 1.5H, Aspartate Amino Transf (AST/SGOT) 1122H, Alanine Aminotransferase (ALT/SGPT) 342H, Alkaline Phosphatase 335H, Total Protein 5.4L , Albumin 1.2L, Globulin 4.2, Albumin/Globulin Ratio 0.3L 12/12/18 11:39: Arterial Blood pH 7.190*L, Arterial Blood Partial Pressure CO2 22.7*L, Arterial Blood Partial Pressure O2 88.0, Arterial Blood HCO3 8.5*L, Arterial Blood Oxygen Saturation 95.0, Arterial Blood Base Excess -18.0*L, Harsh Test Positive Height (Feet): 5 Height (Inches): 8.00 Weight (Pounds): 230 Objective General Appearance: no apparent distress, lethargic, + trach Neck: non-tender, normal alignment, supple, normal inspection, no JVD Rhythm: NSR Cardiovascular: normal peripheral pulses, regular rhythm, tachycardia Respiratory/Chest: biltateral faint wheezes Abdomen: normal bowel sounds, non tender, soft, + PEG Diana Sommers M.D. Dec 12, 2018 12:43
--- NOTE | 2018-12-12 13:31 | Hematology/Onc Progress Note ---
Assessment/Plan Assessment/Plan # Anemia of chronic disease due to underlying chronic medical issues, multifactorial --> Anemia workup has been reviewed and cw acd --> No evidence of hemolysis is noted, peripheral smear has been reviewed --> Hgb goal >7. Transfuse prn. --> hgb trend 9-->8-->7.5-->9.3->8.6-->8.4-->8.7->7.6-->6.6-->7.6-->8.8->8.7 --> Epogen or iron indication prn --> Medications have been reviewed --> low threshold for gi evaluation and occult NEGATIVE # Leukocytosis with sepsis secondary to UTI, GPC staph epidermidis bacteremia, Line associated infection, patient arrived to the hospital with a PICC --> as per ID consult recs --> trend wbc 14k--31k --> Continue antibiotics per ID: Continue Zosyn and vancomycin, anti fungal added--> kaykay/vanc, diflucan-->flagyl, vanc, polymyxin--> omid/flagyl/polym/vanc /bactim-ds --> imaging noted --> now improved # Thrombocytosis is likely due to underlying reactive process --> if doesn't improve send off jak2 --> plt count 641k-->402k-->344-->275k-->280k-->250k-->255k-->203k # Elevated tumor marker, cea --> as per gi eval # Transaminitis --> trend lft's --> GI consult, apprec recs --> ab us: reviewed # Elevated troponin secondary to sepsis versus ACS --> as per Cardiology recs # Hypertension- improved --> sbp goal <150 # Vent dependent with trach --> on vent currently --> as per Pulmonary recs # Hypokalemia --> give vit K # Dysphagia s/p gtube feeds # CHf hx with hyponatremia --> 1l fluid restriction # Dvt ppx with lovenox The timing of this note does not necessarily reflect the time of the patient was seen. GREATLY APPRECIATE CONSULTATION. Subjective Constitutional: Denies: no symptoms, chills, fever, malaise, weakness, other HEENT: Denies: no symptoms, eye pain, blurred vision, tearing, double vision, ear pain, ear discharge, nose pain, nose congestion, throat pain, throat swelling, mouth pain, mouth swelling, other Cardiovascular: Denies: no symptoms, chest pain, edema, irregular heart rate, lightheadedness, palpitations, syncope, other Gastrointestinal/Abdominal: Denies: no symptoms, abdomen distended, abdominal pain, black stools, tarry stools, blood in stool, constipated, diarrhea, difficulty swallowing, nausea, poor appetite, poor fluid intake, rectal bleeding , vomiting, other Genitourinary: Denies: no symptoms, burning, discharge, frequency, flank pain, hematuria, incontinence, pain, urgency, other Neurologic/Psychiatric: Denies: no symptoms, anxiety, depressed, emotional problems, headache, numbness, paresthesia, pre-existing deficit, seizure, tingling, tremors, weakness, other Endocrine: Denies: no symptoms, excessive sweating, flushing, intolerance to cold, intolerance to heat, increased hunger, increased thirst, increased urine, unexplained weight gain, unexplained weight loss, other Allergies: Coded Allergies: Crayfish (Unverified Allergy, Unknown, 11/11/18) Uncoded Allergies: Crawfish (Allergy, Unknown, 11/09/18) Subjective 11/14: no events to report, labs relatively stable, hgb 8.9, on vent 11/15: no bleeding, no chills, labs reviewed, no major changes 11/16: cxr-->bilateral interstitial edema, vs stable, on abx, on vent, contact isolation 11/17: labs reviewed, on abx, vs stable, on vent, no distress 11/18: remains on gtube feeds, is on vent, on kaykay/vanc 11/20: no events, no bleeding, kaykay, vanc, diflucan, no f/c 11/21: remains on vent, gtube feeds, no major changes, no bleeding 11/22: ct abdomen pelvis w/contrast reviewed, vs stable, no acute events, labs reviewed, remains intubated, low grade fever 11/23: reviewed meds, abx have been changed, remains altered currently 11/24: labs reviewed, vs stable, med reviewed, no sob, no distress, on vent 11/25: remains on vent, no major events, on glucerna, fluid restriction 11/27: signed consent today, no f/c, no night sweats 11/28: no f/c, on abx, on vent, no distress, picc line in 11/29: no events to report, no f/c, no bleeding noted, on vent 11/30: vs stable, no f/c, on vent, obtunded, gtube feeds 12/01: no f/c, cxr-->pulmonary edema, meds reviewed, contact precaution, on vent , labs noted 12/03: ongoing gtube feeds, nava in place, on vent, no bleeding 12/04: remains obtunded, on trach/to vent, no bleeding today, labs noted 12/05: electrolytes repleted overnight, no major changes, prbc was ordered hgb 6.6 12/06: on vent, trach dependent, no f/c, no bleeding 12/07: no events, labs noted 12/08: neck wounds being addressed, labs pending, no f/c overnight 12/09: on vent/trach, no bleeding, hgb 8.7, on gtube feeds 12/11: in icu, cxr noted, on vent, developed new hcap and uti, obtunded, on abx 12/12: no events, no bleeding, remains in the icu, coded yesterday Objective Objective Current Medications Medications (Trade) Dose Ordered Sig/Lupe Route PRN Reason Start Time Stop Time Status Last Admin Dose Admin Acetaminophen (Tylenol) 650 mg Q4H PRN GT Mild Pain/Temp > 100.5 12/11/18 05:12 01/07/19 05:11 12/11/18 09:22 Albumin Human 100 ml @ 100 mls/hr ONCE ONCE IV 12/12/18 13:15 12/12/18 14:14 12/12/18 13:25 Albuterol/ Ipratropium (Albuterol/ Ipratropium) 3 ml Q4H PRN HHN Shortness of Breath 12/11/18 05:13 12/13/18 05:12 Albuterol/ Ipratropium (Albuterol/ Ipratropium) 3 ml Q6HRT HHN 12/11/18 07:00 12/13/18 18:59 12/12/18 07:07 Bisacodyl (Dulcolax) 10 mg DAILY PRN RECTAL Constipation 12/11/18 05:12 01/07/19 05:11 Cefepime HCl 2 gm/ Dextrose 110 ml @ 220 mls/hr Q24H IV 12/11/18 15:00 12/18/18 14:59 12/11/18 15:41 Chlorhexidine Gluconate (Corazon-Hex 2%) 1 applic DAILY@2000 TOPIC 12/11/18 20:00 01/07/19 19:59 12/11/18 20:51 Colistimethate Sodium (Colistin *inhalation use only*) 75 mg Q12HR@ INH 12/12/18 22:00 12/19/18 21:59 Dextrose (Dextrose 50%) 25 ml Q30M PRN IV Hypoglycemia 12/11/18 05:15 01/07/19 04:44 Dextrose (Dextrose 50%) 50 ml Q30M PRN IV Hypoglycemia 12/11/18 05:15 01/07/19 04:44 Enoxaparin Sodium (Lovenox) 40 mg DAILY SUBQ 12/11/18 09:00 01/07/19 08:59 12/12/18 08:51 Famotidine (Pepcid) 20 mg EVERY 12 HOURS GT 12/11/18 09:00 01/07/19 20:59 12/12/18 08:48 Hydrocortisone (Solu-CORTEF) 100 mg EVERY 8 HOURS IV 12/12/18 14:00 01/11/19 13:59 Insulin Aspart (NovoLOG) Q6HR SUBQ 12/11/18 06:00 01/07/19 05:59 12/12/18 13:19 Insulin Detemir (Levemir) 4 units EVERY 12 HOURS SUBQ 12/11/18 09:00 01/07/19 20:59 12/12/18 08:52 Labetalol HCl (Normodyne) 200 mg Q8HR GT 12/11/18 06:00 01/07/19 05:59 Lactulose (Cephulac) 10 gm THREE TIMES A DAY GT 12/11/18 09:00 01/07/19 17:59 12/12/18 13:10 Levetiracetam (Keppra) 1,500 mg Q12HR GT 12/11/18 09:00 01/07/19 08:59 12/12/18 08:48 Levofloxacin 150 ml @ 150 mls/hr Q48H IVPB 12/12/18 18:00 12/19/18 17:59 Linezolid 300 ml @ 300 mls/hr Q12HR IVPB 12/12/18 21:00 12/19/18 20:59 Magnesium Hydroxide (Mom) 30 ml DAILY PRN GT Constipation 12/11/18 05:15 01/07/19 05:14 Metoclopramide HCl (Reglan) 5 mg Q8H PRN IVP Nausea & Vomiting 12/11/18 05:15 01/09/19 05:14 Metronidazole 100 ml @ 100 mls/hr Q8HR IVPB 12/11/18 14:00 12/18/18 13:59 12/12/18 05:46 Minocycline HCl (Minocin) 100 mg Q12HR ORAL 12/12/18 21:00 12/19/18 20:59 Norepinephrine Bitartrate 8 mg/ Dextrose 500 ml @ 0 mls/hr Q24H IV 12/11/18 09:00 01/10/19 08:59 12/12/18 13:26 Ondansetron HCl (Zofran) 4 mg Q6H PRN GT Nausea & Vomiting 12/11/18 05:16 01/07/19 05:15 Phenobarbital (PHENobarbital) 60 mg BID GT 12/11/18 18:00 01/07/19 08:59 12/12/18 08:48 Phenylephrine HCl 100 mg/Dextrose 500 ml @ 0 mls/hr Q24H IV 12/11/18 09:00 01/10/19 08:59 12/12/18 09:52 Phenytoin (Dilantin) 100 mg Q8HR GT 12/11/18 06:00 01/07/19 05:59 12/12/18 05:46 Polyethylene Glycol (Miralax) 17 gm DAILYPRN PRN GT Constipation 12/11/18 05:17 01/07/19 05:16 Sennosides (Senokot) 8.6 mg EVERY 12 HOURS GT 12/11/18 09:00 01/07/19 20:59 12/12/18 08:48 Sodium Bicarbonate 50 ml/ Sodium Chloride 1,050 ml @ 100 mls/hr [id number] IV 12/12/18 14:00 01/11/19 13:59 Vasopressin 100 units/Sodium Chloride 100 ml @ 0 mls/hr Q24H IV 12/11/18 14:45 01/10/19 14:44 12/11/18 15:11 Last 24 Hour Vital Signs Date Time Temp Pulse Resp B/P (MAP) Pulse Ox O2 Delivery O2 Flow Rate FiO2 12/12/18 13:26 82/93 12/12/18 11:00 80 26 103/55 (71) 98 12/12/18 10:45 80 26 104/59 (74) 97 12/12/18 10:30 79 26 92/68 (76) 100 12/12/18 10:30 92/68 12/12/18 10:15 116/65 12/12/18 10:15 79 26 116/65 (82) 100 12/12/18 10:00 113/56 12/12/18 10:00 79 26 113/56 (75) 100 12/12/18 09:52 78 117/59 12/12/18 09:45 117/59 12/12/18 09:45 79 26 117/59 (78) 99 12/12/18 09:30 79 26 123/62 (82) 99 12/12/18 09:30 123/62 12/12/18 09:15 123/67 12/12/18 09:15 80 26 123/67 (85) 99 12/12/18 09:00 130/66 12/12/18 09:00 79 24 130/66 (87) 100 12/12/18 08:48 103/50 12/12/18 08:45 76 26 100/57 (71) 96 12/12/18 08:45 100/57 12/12/18 08:45 77 26 Mechanical Ventilator 75 75 12/12/18 08:30 78 26 103/50 (67) 97 12/12/18 08:30 103/50 12/12/18 08:15 78 26 113/61 (78) 98 12/12/18 08:15 113/61 12/12/18 08:00 79 12/12/18 08:00 Mechanical Ventilator 12/12/18 08:00 121/63 12/12/18 08:00 75 12/12/18 08:00 97.3 79 26 121/63 (82) 99 12/12/18 07:45 79 26 126/65 (85) 100 12/12/18 07:45 126/65 12/12/18 07:30 80 26 130/66 (87) 100 12/12/18 07:30 130/66 12/12/18 07:17 75 26 100 75 12/12/18 07:15 134/72 12/12/18 07:15 79 26 134/72 (92) 100 12/12/18 07:07 79 26 Mechanical Ventilator 75 75 12/12/18 07:00 80 26 130/67 (88) 100 12/12/18 07:00 130/67 12/12/18 06:45 81 26 131/70 (90) 100 12/12/18 06:30 80 26 126/68 (87) 100 12/12/18 06:15 123/63 12/12/18 06:15 80 26 123/63 (83) 100 12/12/18 06:00 128/65 12/12/18 06:00 78 26 129/65 (86) 100 12/12/18 05:47 81 128/66 12/12/18 05:46 136/74 12/12/18 05:45 80 26 136/74 (94) 100 12/12/18 05:30 128/66 12/12/18 05:30 80 26 128/66 (86) 100 12/12/18 05:15 79 26 124/68 (86) 100 12/12/18 05:13 124/68 12/12/18 05:00 81 26 113/54 (73) 98 12/12/18 05:00 113/54 12/12/18 04:59 80 26 75 12/12/18 04:45 118/63 12/12/18 04:45 80 26 118/63 (81) 99 12/12/18 04:30 81 26 113/54 (73) 98 12/12/18 04:30 113/54 12/12/18 04:15 103/62 12/12/18 04:15 82 26 103/62 (76) 98 12/12/18 04:00 75 12/12/18 04:00 111/59 12/12/18 04:00 97.7 85 26 111/59 (76) 98 12/12/18 04:00 Mechanical Ventilator 12/12/18 03:45 87 26 118/60 (79) 97 12/12/18 03:45 118/60 12/12/18 03:39 120/63 12/12/18 03:30 88 26 120/63 (82) 97 12/12/18 03:30 124/65 12/12/18 03:16 87 12/12/18 03:15 89 26 124/65 (84) 99 12/12/18 03:15 164/78 12/12/18 03:14 88 26 75 12/12/18 03:00 169/81 12/12/18 03:00 90 26 169/81 (110) 100 12/12/18 02:45 169/93 12/12/18 02:45 90 26 169/93 (118) 99 12/12/18 02:30 125/73 12/12/18 02:30 87 26 125/73 (90) 96 12/12/18 02:15 90 16 122/70 (87) 99 12/12/18 02:15 122/70 12/12/18 02:00 133/74 12/12/18 02:00 89 26 133/74 (93) 100 12/12/18 01:45 89 26 133/74 (93) 99 12/12/18 01:30 89 26 133/82 (99) 99 12/12/18 01:26 88 26 100 Mechanical Ventilator 75 12/12/18 01:16 88 26 98 Mechanical Ventilator 75 88 26 75 12/12/18 01:15 89 26 126/73 (90) 99 12/12/18 01:00 133/82 12/12/18 01:00 88 26 124/67 (86) 99 12/12/18 00:45 87 26 133/74 (93) 99 12/12/18 00:30 87 26 133/70 (91) 100 12/12/18 00:15 88 26 133/70 (91) 100 12/12/18 00:00 88 12/12/18 00:00 Mechanical Ventilator 12/12/18 00:00 88 26 133/72 (92) 99 12/12/18 00:00 88 131/73 12/11/18 23:45 87 26 131/73 (92) 99 12/11/18 23:30 89 26 132/68 (89) 99 12/11/18 23:15 88 26 125/71 (89) 99 12/11/18 23:12 88 26 75 12/11/18 23:03 88 12/11/18 23:00 125/71 12/11/18 23:00 88 26 120/69 (86) 98 12/11/18 22:47 126/72 12/11/18 22:45 88 26 106/58 (74) 98 12/11/18 22:30 89 26 126/72 (90) 98 12/11/18 22:15 90 26 118/58 (78) 98 12/11/18 22:00 118/58 12/11/18 22:00 88 118/58 12/11/18 22:00 90 26 129/70 (89) 98 12/11/18 21:45 94 26 128/72 (90) 98 12/11/18 21:30 85 26 121/69 (86) 97 12/11/18 21:15 85 26 118/52 (74) 97 12/11/18 21:01 86 26 75 12/11/18 21:00 86 27 123/68 (86) 98 12/11/18 21:00 118/52 12/11/18 21:00 75 12/11/18 20:45 86 26 121/63 (82) 100 12/11/18 20:30 86 27 121/70 (87) 100 12/11/18 20:15 85 26 117/63 (81) 100 12/11/18 20:00 117/63 12/11/18 20:00 85 26 117/62 (80) 100 12/11/18 20:00 Mechanical Ventilator 12/11/18 20:00 90 12/11/18 19:45 85 26 115/72 (86) 100 12/11/18 19:30 85 26 112/69 (83) 100 12/11/18 19:26 85 26 100 Mechanical Ventilator 90 12/11/18 19:23 85 12/11/18 19:16 85 26 97 Mechanical Ventilator 90 86 26 90 12/11/18 19:15 85 26 97/64 (75) 99 12/11/18 19:00 85 26 111/61 (78) 97 12/11/18 19:00 97.4 85 26 111/61 (78) 97 12/11/18 19:00 111/61 12/11/18 18:30 84 26 106/66 (79) 97 12/11/18 18:17 106/65 12/11/18 18:15 84 26 103/54 (70) 98 12/11/18 18:00 85 26 106/65 (79) 98 12/11/18 18:00 103/54 12/11/18 17:45 85 26 104/64 (77) 97 12/11/18 17:30 85 26 101/62 (75) 95 12/11/18 17:15 85 26 100/59 (73) 93 12/11/18 17:00 84 26 98/57 (71) 93 12/11/18 17:00 85 26 100 12/11/18 17:00 98/57 12/11/18 16:30 86 111/55 12/11/18 16:15 87 26 111/55 (73) 97 12/11/18 16:00 Mechanical Ventilator 12/11/18 16:00 97.3 91 26 113/61 (78) 96 12/11/18 16:00 113/61 12/11/18 16:00 100 12/11/18 15:45 88 26 116/66 (83) 98 12/11/18 15:31 87 12/11/18 15:30 87 26 104/56 (72) 96 12/11/18 15:00 84/55 12/11/18 15:00 87 26 84/55 (65) 96 12/11/18 14:52 87 26 100 12/11/18 14:45 87 26 87/49 (62) 95 12/11/18 14:30 88 26 81/47 (58) 95 12/11/18 14:15 88 26 87/43 (58) 95 12/11/18 14:13 89/51 12/11/18 14:00 87/43 12/11/18 14:00 88 87/43 12/11/18 14:00 89 26 90/35 (53) 95 12/11/18 13:30 92 26 91/48 (62) 91 12/11/18 13:00 90 26 90 Mechanical Ventilator 90 94 26 90 12/11/18 13:00 93 26 89/51 (64) 92 12/11/18 13:00 88/47 12/11/18 12:30 96 26 96/50 (65) 93 12/11/18 12:00 98.6 92 26 100/52 (68) 95 12/11/18 12:00 90 12/11/18 12:00 98/49 12/11/18 12:00 Mechanical Ventilator 12/11/18 11:32 86 12/11/18 11:30 98 26 112/44 (66) 95 12/11/18 11:00 99 26 111/52 (71) 96 12/11/18 11:00 111/52 12/11/18 10:48 97 24 90 12/11/18 10:30 101 24 103/53 (70) 99 12/11/18 10:15 103 24 103/53 (70) 98 12/11/18 10:00 104 24 100/52 (68) 98 12/11/18 09:52 100.6 12/11/18 09:45 105 23 103/52 (69) 97 12/11/18 09:35 107/58 12/11/18 09:33 106 107/58 12/11/18 09:30 105 24 114/55 (74) 97 12/11/18 09:15 108 24 107/61 (76) 97 12/11/18 09:06 109 24 100 12/11/18 09:00 100.8 110 18 105/59 (74) 89 12/11/18 09:00 94/57 12/11/18 09:00 106 109/61 12/11/18 08:45 112 23 95/70 (78) 88 12/11/18 08:30 114 15 106/50 (68) 93 12/11/18 08:15 115 15 108/49 (68) 95 12/11/18 08:00 Mechanical Ventilator 12/11/18 08:00 101.8 115 15 111/54 (73) 96 12/11/18 08:00 100 12/11/18 08:00 110/53 12/11/18 07:30 107 12/11/18 07:22 94/43 12/11/18 06:54 113 15 100 12/11/18 06:40 115 15 94/43 (60) 99 12/11/18 06:35 125 15 102/43 (62) 99 12/11/18 06:30 132 15 98/52 (67) 89 12/11/18 06:30 132 94/42 12/11/18 06:25 132 21 101/47 (65) 89 12/11/18 06:20 132 15 94/42 (59) 100 12/11/18 06:15 132 15 96/45 (62) 99 12/11/18 06:10 132 15 101/43 (62) 12/11/18 06:05 131 15 93/46 (62) 99 12/11/18 06:00 132 96/45 12/11/18 06:00 131 15 95/44 (61) 99 12/11/18 05:55 130 15 99/43 (61) 98 12/11/18 05:50 130 15 96/45 (62) 98 12/11/18 05:45 129 15 95/44 (61) 97 12/11/18 05:40 122 16 90/43 (59) 90 12/11/18 05:40 122 16 90/43 (59) 90 12/11/18 05:40 134 26 30 12/11/18 05:36 101 20 76/41 (53) 78 12/11/18 05:36 101 20 76/41 (53) 78 12/11/18 05:35 96 19 67/35 (46) 78 12/11/18 05:35 96 19 67/35 (46) 78 12/11/18 05:30 97 16 55/32 (40) 12/11/18 05:30 97 16 55/32 (40) 90 12/11/18 05:25 104 16 68/34 (45) 12/11/18 05:25 104 16 68/34 (45) 90 12/11/18 05:20 121 15 81/48 (59) 90 12/11/18 05:20 121 15 81/48 (59) 12/11/18 05:15 137 13 104/62 (76) 90 12/11/18 05:15 137 13 104/62 (76) 12/11/18 05:14 140 4 129/53 (78) 12/11/18 05:14 140 4 129/53 (78) 90 12/11/18 05:12 140 17 145/58 (87) 12/11/18 05:12 140 17 145/58 (87) 90 12/11/18 05:10 111 19 165/66 (99) 90 9/23/19 05:10 111 19 165/66 (99) 12/11/18 05:05 13 12 68/20 (36) 12/11/18 05:05 13 12 68/20 (36) 100 12/11/18 05:01 99.6 24 14 81/45 (57) 100 12/11/18 05:01 24 14 81/45 (57) 12/11/18 05:00 47 15 12/11/18 04:52 61/32 12/11/18 04:00 30 12/11/18 04:00 101.8 12/11/18 04:00 Mechanical Ventilator 12/11/18 03:43 114 12/11/18 03:32 112 34 30 12/11/18 02:15 111 32 97 Mechanical Ventilator 30 12/11/18 01:16 117 30 30 12/11/18 00:00 98.2 95 21 109/56 (73) 96 12/11/18 00:00 114 12/11/18 00:00 30 12/11/18 00:00 Mechanical Ventilator 12/10/18 23:13 110 32 30 12/10/18 21:29 106 25 30 12/10/18 21:08 91 106/62 12/10/18 20:00 99 12/10/18 20:00 Mechanical Ventilator 12/10/18 20:00 30 12/10/18 20:00 99.1 100 19 106/62 (77) 100 12/10/18 19:37 105 29 100 Mechanical Ventilator 30 104 28 30 12/10/18 17:53 97 25 98 Mechanical Ventilator 30 12/10/18 17:30 97 31 30 12/10/18 16:00 Mechanical Ventilator 12/10/18 16:00 99.3 105 21 127/67 (87) 99 12/10/18 16:00 30 12/10/18 15:49 102 28 30 12/10/18 15:33 102 12/10/18 14:46 106 114/62 Intake and Output 12/11/18 12/12/18 18:59 06:59 Intake Total 3227.285 ml 2188.8 ml Output Total 1160 ml 500 ml Balance 2067.285 ml 1688.8 ml IV Total 3097.285 ml 2058.8 ml Other 130 ml 130 ml Output Urine Total 10 ml 0 ml Gastric Drainage Total 1150 ml Other 500 ml Labs Test 12/10/18 04:50 12/11/18 03:25 12/11/18 07:45 12/11/18 10:29 White Blood Count 17.8 K/UL (4.8-10.8) 11.7 K/UL (4.8-10.8) Red Blood Count 3.28 M/UL (4.20-5.40) 3.21 M/UL (4.20-5.40) Hemoglobin 8.9 G/DL (12.0-16.0) 8.8 G/DL (12.0-16.0) Hematocrit 26.8 % (37.0-47.0) 26.5 % (37.0-47.0) Mean Corpuscular Volume 82 FL (80-99) 83 FL (80-99) Mean Corpuscular Hemoglobin 27.2 PG (27.0-31.0) 27.3 PG (27.0-31.0) Mean Corpuscular Hemoglobin Concent 33.3 G/DL (32.0-36.0) 33.1 G/DL (32.0-36.0) Red Cell Distribution Width 17.0 % (11.6-14.8) 16.5 % (11.6-14.8) Platelet Count 267 K/UL (150-450) 203 K/UL (150-450) Mean Platelet Volume 6.3 FL (6.5-10.1) 6.1 FL (6.5-10.1) Neutrophils (%) (Auto) 79.4 % (45.0-75.0) % (45.0-75.0) Lymphocytes (%) (Auto) 4.7 % (20.0-45.0) % (20.0-45.0) Monocytes (%) (Auto) 13.8 % (1.0-10.0) % (1.0-10.0) Eosinophils (%) (Auto) 1.0 % (0.0-3.0) % (0.0-3.0) Basophils (%) (Auto) 1.1 % (0.0-2.0) % (0.0-2.0) Sodium Level 137 MMOL/L (136-145) 142 MMOL/L (136-145) Potassium Level 3.6 MMOL/L (3.5-5.1) 3.5 MMOL/L (3.5-5.1) Chloride Level 101 MMOL/L (98-107) 104 MMOL/L (98-107) Carbon Dioxide Level 25 MMOL/L (21-32) 25 MMOL/L (21-32) Anion Gap 11 mmol/L (5-15) 13 mmol/L (5-15) Blood Urea Nitrogen 30 mg/dL (7-18) 37 mg/dL (7-18) Creatinine 0.9 MG/DL (0.55-1.30) 1.3 MG/DL (0.55-1.30) Estimat Glomerular Filtration Rate mL/min (>60) mL/min (>60) Glucose Level 113 MG/DL (74-106) 87 MG/DL (74-106) Calcium Level 8.9 MG/DL (8.5-10.1) 8.8 MG/DL (8.5-10.1) Total Bilirubin 0.7 MG/DL (0.2-1.0) Aspartate Amino Transf (AST/SGOT) 25 U/L (15-37) Alanine Aminotransferase (ALT/SGPT) 26 U/L (12-78) Alkaline Phosphatase 389 U/L (46-116) Total Protein 6.2 G/DL (6.4-8.2) Albumin 1.4 G/DL (3.4-5.0) Globulin 4.8 g/dL Albumin/Globulin Ratio 0.3 (1.0-2.7) Arterial Blood pH 7.186 (7.350-7.450) 7.317 (7.350-7.450) Arterial Blood Partial Pressure CO2 40.2 mmHg (35.0-45.0) 23.9 mmHg (35.0-45.0) Arterial Blood Partial Pressure O2 85.0 mmHg (75.0-100.0) 103.6 mmHg (75.0-100.0) Arterial Blood HCO3 14.9 mmol/L (22.0-26.0) 12.0 mmol/L (22.0-26.0) Arterial Blood Oxygen Saturation 93.1 % (95-100) 97.0 % (95-100) Arterial Blood Base Excess -12.6 (-2-2) -12.7 (-2-2) Harsh Test Positive Positive Test 12/12/18 03:15 12/12/18 11:39 White Blood Count 30.9 K/UL (4.8-10.8) Red Blood Count 3.31 M/UL (4.20-5.40) Hemoglobin 8.7 G/DL (12.0-16.0) Hematocrit 28.1 % (37.0-47.0) Mean Corpuscular Volume 85 FL (80-99) Mean Corpuscular Hemoglobin 26.4 PG (27.0-31.0) Mean Corpuscular Hemoglobin Concent 31.0 G/DL (32.0-36.0) Red Cell Distribution Width 18.2 % (11.6-14.8) Platelet Count 215 K/UL (150-450) Mean Platelet Volume 6.7 FL (6.5-10.1) Neutrophils (%) (Auto) % (45.0-75.0) Lymphocytes (%) (Auto) % (20.0-45.0) Monocytes (%) (Auto) % (1.0-10.0) Eosinophils (%) (Auto) % (0.0-3.0) Basophils (%) (Auto) % (0.0-2.0) Differential Total Cells Counted 100 Neutrophils % (Manual) 81 % (45-75) Lymphocytes % (Manual) 5 % (20-45) Monocytes % (Manual) 5 % (1-10) Eosinophils % (Manual) 0 % (0-3) Basophils % (Manual) 0 % (0-2) Band Neutrophils 9 % (0-8) Platelet Estimate Adequate Platelet Morphology Normal Hypochromasia 1+ Zeinab Cells 1+ Sodium Level 130 MMOL/L (136-145) Potassium Level 4.1 MMOL/L (3.5-5.1) Chloride Level 94 MMOL/L (98-107) Carbon Dioxide Level 10 MMOL/L (21-32) Anion Gap 27 mmol/L (5-15) Blood Urea Nitrogen 42 mg/dL (7-18) Creatinine 1.9 MG/DL (0.55-1.30) Estimat Glomerular Filtration Rate mL/min (>60) Glucose Level 170 MG/DL (74-106) Calcium Level 7.8 MG/DL (8.5-10.1) Total Bilirubin 2.0 MG/DL (0.2-1.0) Direct Bilirubin 1.5 MG/DL (0.0-0.3) Aspartate Amino Transf (AST/SGOT) 1122 U/L (15-37) Alanine Aminotransferase (ALT/SGPT) 342 U/L (12-78) Alkaline Phosphatase 335 U/L (46-116) Total Protein 5.4 G/DL (6.4-8.2) Albumin 1.2 G/DL (3.4-5.0) Globulin 4.2 g/dL Albumin/Globulin Ratio 0.3 (1.0-2.7) Arterial Blood pH 7.190 (7.350-7.450) Arterial Blood Partial Pressure CO2 22.7 mmHg (35.0-45.0) Arterial Blood Partial Pressure O2 88.0 mmHg (75.0-100.0) Arterial Blood HCO3 8.5 mmol/L (22.0-26.0) Arterial Blood Oxygen Saturation 95.0 % (95-100) Arterial Blood Base Excess -18.0 (-2-2) Harsh Test Positive Micro Microbiology Date/Time Source Procedure Growth Status 12/11/18 13:30 Sputum Induced Gram Stain - Final Resulted 12/11/18 13:30 Sputum Culture - Preliminary Gram Negative Bacillus 1 Resulted Height (Feet): 5 Height (Inches): 8.00 Weight (Pounds): 230 Objective Physical Exam: Vitals: reviewed Gen: NAD, nonverbal HEENT: normocephalic, atraumatic Neck: non-tender, normal alignment ++ vent/trach Respiratory: normal breath sounds bilaterally CV: normal peripheral pulses, rrr Abdomen: normal bowel sounds, soft, nontender +gtube Extremities: 1-2+ edema Yonathan Hernandez MD Dec 12, 2018 13:31
--- NOTE | 2018-12-12 14:00 | NUR ---
NURSE NOTES: Patient blood pressure 125/68 on levophed 30mcg/hr, phenylephrine 80mcg/hr, and vasopressin 2.4mL/hr. Will continue to monitor blood pressure and titrate per protocol. Dr Dejesus aware of ABG result. MD notified in person. Dr Dejesus ordered repeat ABG. Will notify regarding result.
[2018-12-12] MEDS: Hydrocortisone 100mg Inj IV SCH ×2 (14:59→21:40)
--- NOTE | 2018-12-12 15:31 | Surgery Progress Note ---
Surgery Progress Note Subjective Additional Comments on pressors tongue still in exam stable labs noted Objective Last 24 Hour Vital Signs Date Time Temp Pulse Resp B/P (MAP) Pulse Ox O2 Delivery O2 Flow Rate FiO2 12/12/18 15:00 85 26 107/59 (75) 100 12/12/18 14:30 85 26 108/55 (72) 98 12/12/18 14:30 85 26 75 12/12/18 14:00 85 100/54 12/12/18 14:00 83 26 88/54 (65) 100 12/12/18 13:36 88/54 12/12/18 13:30 83 26 92/56 (68) 100 12/12/18 13:26 82/93 12/12/18 13:15 81 26 Mechanical Ventilator 75 12/12/18 13:00 83 26 95/60 (72) 96 12/12/18 13:00 75 12/12/18 12:30 83 26 95/60 (72) 96 12/12/18 12:00 82 12/12/18 12:00 94.1 82 26 95/58 (70) 96 12/12/18 11:15 81 26 91/55 (67) 98 12/12/18 11:00 80 26 103/55 (71) 98 12/12/18 10:45 83 26 75 12/12/18 10:45 80 26 104/59 (74) 97 12/12/18 10:30 79 26 92/68 (76) 100 12/12/18 10:30 92/68 12/12/18 10:15 116/65 12/12/18 10:15 79 26 116/65 (82) 100 12/12/18 10:00 113/56 12/12/18 10:00 79 26 113/56 (75) 100 12/12/18 09:52 78 117/59 12/12/18 09:45 117/59 12/12/18 09:45 79 26 117/59 (78) 99 12/12/18 09:30 79 26 123/62 (82) 99 12/12/18 09:30 123/62 12/12/18 09:15 123/67 12/12/18 09:15 80 26 123/67 (85) 99 12/12/18 09:00 130/66 12/12/18 09:00 79 24 130/66 (87) 100 12/12/18 08:48 103/50 12/12/18 08:45 76 26 100/57 (71) 96 12/12/18 08:45 100/57 12/12/18 08:45 77 26 75 12/12/18 08:30 78 26 103/50 (67) 97 12/12/18 08:30 103/50 12/12/18 08:15 78 26 113/61 (78) 98 12/12/18 08:15 113/61 12/12/18 08:00 79 12/12/18 08:00 Mechanical Ventilator 12/12/18 08:00 121/63 12/12/18 08:00 75 12/12/18 08:00 97.3 79 26 121/63 (82) 99 12/12/18 07:45 79 26 126/65 (85) 100 12/12/18 07:45 126/65 12/12/18 07:30 80 26 130/66 (87) 100 12/12/18 07:30 130/66 12/12/18 07:17 75 26 100 75 12/12/18 07:15 134/72 12/12/18 07:15 79 26 134/72 (92) 100 12/12/18 07:07 79 26 Mechanical Ventilator 75 75 12/12/18 07:00 80 26 130/67 (88) 100 12/12/18 07:00 130/67 12/12/18 06:45 81 26 131/70 (90) 100 12/12/18 06:30 80 26 126/68 (87) 100 12/12/18 06:15 123/63 12/12/18 06:15 80 26 123/63 (83) 100 12/12/18 06:00 128/65 12/12/18 06:00 78 26 129/65 (86) 100 12/12/18 05:47 81 128/66 12/12/18 05:46 136/74 12/12/18 05:45 80 26 136/74 (94) 100 12/12/18 05:30 128/66 12/12/18 05:30 80 26 128/66 (86) 100 12/12/18 05:15 79 26 124/68 (86) 100 12/12/18 05:13 124/68 12/12/18 05:00 81 26 113/54 (73) 98 12/12/18 05:00 113/54 12/12/18 04:59 80 26 75 12/12/18 04:45 118/63 12/12/18 04:45 80 26 118/63 (81) 99 12/12/18 04:30 81 26 113/54 (73) 98 12/12/18 04:30 113/54 12/12/18 04:15 103/62 12/12/18 04:15 82 26 103/62 (76) 98 12/12/18 04:00 75 12/12/18 04:00 111/59 12/12/18 04:00 97.7 85 26 111/59 (76) 98 12/12/18 04:00 Mechanical Ventilator 12/12/18 03:45 87 26 118/60 (79) 97 12/12/18 03:45 118/60 12/12/18 03:39 120/63 12/12/18 03:30 88 26 120/63 (82) 97 12/12/18 03:30 124/65 12/12/18 03:16 87 12/12/18 03:15 89 26 124/65 (84) 99 12/12/18 03:15 164/78 12/12/18 03:14 88 26 75 12/12/18 03:00 169/81 12/12/18 03:00 90 26 169/81 (110) 100 12/12/18 02:45 169/93 12/12/18 02:45 90 26 169/93 (118) 99 12/12/18 02:30 125/73 12/12/18 02:30 87 26 125/73 (90) 96 12/12/18 02:15 90 16 122/70 (87) 99 12/12/18 02:15 122/70 12/12/18 02:00 133/74 12/12/18 02:00 89 26 133/74 (93) 100 12/12/18 01:45 89 26 133/74 (93) 99 12/12/18 01:30 89 26 133/82 (99) 99 12/12/18 01:26 88 26 100 Mechanical Ventilator 75 12/12/18 01:16 88 26 98 Mechanical Ventilator 75 88 26 75 12/12/18 01:15 89 26 126/73 (90) 99 9/24/19 01:00 133/82 12/12/18 01:00 88 26 124/67 (86) 99 12/12/18 00:45 87 26 133/74 (93) 99 12/12/18 00:30 87 26 133/70 (91) 100 12/12/18 00:15 88 26 133/70 (91) 100 12/12/18 00:00 88 12/12/18 00:00 Mechanical Ventilator 12/12/18 00:00 88 26 133/72 (92) 99 12/12/18 00:00 88 131/73 12/11/18 23:45 87 26 131/73 (92) 99 12/11/18 23:30 89 26 132/68 (89) 99 12/11/18 23:15 88 26 125/71 (89) 99 12/11/18 23:12 88 26 75 12/11/18 23:03 88 12/11/18 23:00 125/71 12/11/18 23:00 88 26 120/69 (86) 98 12/11/18 22:47 126/72 12/11/18 22:45 88 26 106/58 (74) 98 12/11/18 22:30 89 26 126/72 (90) 98 12/11/18 22:15 90 26 118/58 (78) 98 12/11/18 22:00 118/58 12/11/18 22:00 88 118/58 12/11/18 22:00 90 26 129/70 (89) 98 12/11/18 21:45 94 26 128/72 (90) 98 12/11/18 21:30 85 26 121/69 (86) 97 12/11/18 21:15 85 26 118/52 (74) 97 12/11/18 21:01 86 26 75 12/11/18 21:00 86 27 123/68 (86) 98 12/11/18 21:00 118/52 12/11/18 21:00 75 12/11/18 20:45 86 26 121/63 (82) 100 12/11/18 20:30 86 27 121/70 (87) 100 12/11/18 20:15 85 26 117/63 (81) 100 12/11/18 20:00 117/63 12/11/18 20:00 85 26 117/62 (80) 100 12/11/18 20:00 Mechanical Ventilator 12/11/18 20:00 90 12/11/18 19:45 85 26 115/72 (86) 100 12/11/18 19:30 85 26 112/69 (83) 100 12/11/18 19:26 85 26 100 Mechanical Ventilator 90 12/11/18 19:23 85 12/11/18 19:16 85 26 97 Mechanical Ventilator 90 86 26 90 12/11/18 19:15 85 26 97/64 (75) 99 12/11/18 19:00 85 26 111/61 (78) 97 12/11/18 19:00 97.4 85 26 111/61 (78) 97 12/11/18 19:00 111/61 12/11/18 18:30 84 26 106/66 (79) 97 12/11/18 18:17 106/65 12/11/18 18:15 84 26 103/54 (70) 98 12/11/18 18:00 85 26 106/65 (79) 98 12/11/18 18:00 103/54 12/11/18 17:45 85 26 104/64 (77) 97 12/11/18 17:30 85 26 101/62 (75) 95 12/11/18 17:15 85 26 100/59 (73) 93 12/11/18 17:00 84 26 98/57 (71) 93 12/11/18 17:00 85 26 100 12/11/18 17:00 98/57 12/11/18 16:30 86 111/55 12/11/18 16:15 87 26 111/55 (73) 97 12/11/18 16:00 Mechanical Ventilator 12/11/18 16:00 97.3 91 26 113/61 (78) 96 12/11/18 16:00 113/61 12/11/18 16:00 100 12/11/18 15:45 88 26 116/66 (83) 98 12/11/18 15:31 87 I&O Intake and Output 12/11/18 12/12/18 18:59 06:59 Intake Total 3227.285 ml 2188.8 ml Output Total 1160 ml 500 ml Balance 2067.285 ml 1688.8 ml IV Total 3097.285 ml 2058.8 ml Other 130 ml 130 ml Output Urine Total 10 ml 0 ml Gastric Drainage Total 1150 ml Other 500 ml Dressing: other Wound: other Drains: other Cardiovascular: RSR Respiratory: decreased breath sounds Abdomen: soft, present bowel sounds, non-distended Extremities: other Laboratory Tests Test 12/12/18 03:15 12/12/18 11:39 12/12/18 14:00 White Blood Count 30.9 K/UL (4.8-10.8) #*H Red Blood Count 3.31 M/UL (4.20-5.40) L Hemoglobin 8.7 G/DL (12.0-16.0) L Hematocrit 28.1 % (37.0-47.0) L Mean Corpuscular Volume 85 FL (80-99) Mean Corpuscular Hemoglobin 26.4 PG (27.0-31.0) L Mean Corpuscular Hemoglobin Concent 31.0 G/DL (32.0-36.0) L Red Cell Distribution Width 18.2 % (11.6-14.8) H Platelet Count 215 K/UL (150-450) Mean Platelet Volume 6.7 FL (6.5-10.1) Neutrophils (%) (Auto) % (45.0-75.0) Lymphocytes (%) (Auto) % (20.0-45.0) Monocytes (%) (Auto) % (1.0-10.0) Eosinophils (%) (Auto) % (0.0-3.0) Basophils (%) (Auto) % (0.0-2.0) Differential Total Cells Counted 100 Neutrophils % (Manual) 81 % (45-75) H Lymphocytes % (Manual) 5 % (20-45) L Monocytes % (Manual) 5 % (1-10) Eosinophils % (Manual) 0 % (0-3) Basophils % (Manual) 0 % (0-2) Band Neutrophils 9 % (0-8) H Platelet Estimate Adequate Platelet Morphology Normal Hypochromasia 1+ Zeinab Cells 1+ Sodium Level 130 MMOL/L (136-145) #L Potassium Level 4.1 MMOL/L (3.5-5.1) Chloride Level 94 MMOL/L (98-107) L Carbon Dioxide Level 10 MMOL/L (21-32) L Anion Gap 27 mmol/L (5-15) H Blood Urea Nitrogen 42 mg/dL (7-18) H Creatinine 1.9 MG/DL (0.55-1.30) H Estimat Glomerular Filtration Rate mL/min (>60) Glucose Level 170 MG/DL (74-106) H Calcium Level 7.8 MG/DL (8.5-10.1) L Total Bilirubin 2.0 MG/DL (0.2-1.0) H Direct Bilirubin 1.5 MG/DL (0.0-0.3) H Aspartate Amino Transf (AST/SGOT) 1122 U/L (15-37) H Alanine Aminotransferase (ALT/SGPT) 342 U/L (12-78) H Alkaline Phosphatase 335 U/L (46-116) H Total Protein 5.4 G/DL (6.4-8.2) L Albumin 1.2 G/DL (3.4-5.0) L Globulin 4.2 g/dL Albumin/Globulin Ratio 0.3 (1.0-2.7) L Arterial Blood pH 7.190 (7.350-7.450) Arterial Blood Partial Pressure CO2 22.7 mmHg (35.0-45.0) *L Arterial Blood Partial Pressure O2 88.0 mmHg (75.0-100.0) Arterial Blood HCO3 8.5 mmol/L (22.0-26.0) *L Arterial Blood Oxygen Saturation 95.0 % (95-100) Arterial Blood Base Excess -18.0 (-2-2) *L Harsh Test Positive Thyroid Stimulating Hormone (TSH) Pending Cortisol Pending Plan Problems: (1) Fever (2) Tongue abnormality Assessment & Plan: patients jaw clenched closed and tongue has been stuck for some time. tongue split from middle teeth and now in two. edema and unable to reduce keep tongue moist. apply lube jelly prn dryness. will monitor do not recommend surgical intervention for this current medical condition spoke with family. ENT. OMFS no intervention stable still overall Was able to reduce the tongue after patient was noted to have unclenched jaw yesterday remains reduced and stable. Discussed with family (3) Tracheostomy dependence (4) Sepsis Assessment & Plan: gb no stones 6mm polyp no acute surgical intervention planned trend labs neck wounds being cared for sacral wound declining despite best efforts she has been receiving adequate nutritional supplementation and good wound care but inevitable decline unfortunately prognosis guarded DAILY ESTIMATED NEEDS: Needs based on Critical care, sepsis, wound 60kg adj 22-30 kcals/kg [id number] total kcals 1.25-2 g protein/kg 75-120 g total protein Fluid per MD, on lasix NUTRITION DIAGNOSIS: * Swallowing difficulty r/t respiratory status as evidenced by pt is vent dep via trach and PEG dep. * Increased kcal and pro needs r/t wound healing and sepsis as evidenced by pt w/ sacral and R heel wounds, febrile (Tmax 101.5). CURRENT TF: Jevity 1.2 @50 ml/hr x16 hrs ENTERAL NUTRITION RECOMMENDATIONS: Glucerna 1.2 @65ml/hr x18 hrs + Prosource x1 daily to provide 1170ml, 1404 kcal, 70g pro + 11g pro, 942 free H2O - REC TF CHANGE AND INCREASE TO BETTER MEET EST NEEDS - TF TO BE HELD FOR ONE HR BEFORE AND AFTER DILANTIN MEDS - START @20ML/HR, ADVANCE TOLERATED 15ML/HR Q4-6 HRS TO GOAL - FLUSH PER MD, HOB OVRE 30 DEGREES ADDITIONAL RECOMMENDATIONS: 1) CALIBRATED BED SCALE W/ ADDED P200 MATTRESS + PUMP 2) ON LASIX, MONITOR LYTES AND HYDRATION STATUS DAILY 3) TF TO RUN A MAX OF 18 HRS/DAY W/ DILANTIN TID PER PHARMACY 4) REC TF CHANGE TO CARB CONTROL FORMULA 5) WOUND CARE: ADD CHAYITO BID + VIT C 250MG DAILY (5) Fever Assessment & Plan: CT A/P with findings Impression: No definite acute process Diverticulosis. No evidence of diverticulitis Extensive edema of the subcutaneous fat. 2 cm focal fluid collection/edema seen within the incision Moderate amount retained dense stool. Correlate with any clinical history of constipation Hiatal hernia. Gastrostomy Left renal parapelvic cysts Apparent prior hysterectomy US w/ There are gallstones identified. No gallbladder wall thickening identified. The liver is unremarkable. Gallbladder is unremarkable. CBD is 3 mm. No gallstones identified. No biliary ductal dilatation seen. The kidneys are echogenic. There is no significant hydronephrosis demonstrated. There may be slight fullness of the left collecting system at the level of the kidney. The spleen is normal size. Pancreas and aorta are grossly unremarkable as visualized. (6) Decubitus skin ulcer Assessment & Plan: Pt presented on admission with full thickness sacral pressure injury.Base of wound is 20% necrotic , 80% slough. borders are macerated . Mild odor noted. (L)8.4cm x (W) 6.5cm. Periwound skin tone is darker without erythema,induration or elevation in skin temp. Both heels are non -blanchable and both are fluctuant when palpated. neck wounds still declining because of trach dependance, edema, and location as well as patients contractures Tx.Plan: Clean wound with saline. Apply Therahoney. Aply Moisture Barrier paste periwound. Cover with Optifoam drsg. Change every 3 days and prn. Apply Cavilon Skin Barrier to both heels. Cover each heel with Optifoam drsg. Change every 7 days and prn. wash neck wounds daily, apply skin protectant, therahoney, gauze and foam dressing daily APM/DEIRDRE mattress overlay. Reposition at least every 2hours or as tolerated. Off-load heels with pillow. will follow with recs thank you Preet Hylton Dec 12, 2018 15:31
--- NOTE | 2018-12-12 16:00 | NUR ---
NURSE NOTES: Patient Blood pressure 95/58 on levophed 30mcg/hr, vasopressin 2.4mL/hr, and phenylephrine 140mcg/min. Patient temp 94.1. Warming blanket placed on patient. Patient remains unresponsive with eyes closed and does not respond to voice, light or deep pain. Gag reflex absent. Patient remains on trach to ventilator with setting of AC 26, TV 600, FiO2 75%, and PEEP 5. Patient tolerating setting with O2 saturation 100%, HR 81, and RR 26. Patient has gastrostomy tube that is hooked to low intermittent suction at this time. Small amount of green gastric content present in the suction canister. Patient has nava for urine retention with no output noted at this time. Patient has multiple wounds. Patient has sacral full thickness pressure wound, redness of the trach insertion site, and full thickness pressure ulcer of the right and left ear. Patient has right upper arm PICC that is patent, asymptomatic and dressing remains intact. Patient bed in low position with bed alarm on and call light in reach at this time. Will continue to monitor blood pressure and vital signs and titrate medications per protocol. Patient oral care done and repositioned at this time.
[2018-12-12] MEDS: Sodium Bicarbonate 50 ML in Sodium Chloride 1,000 ML IV SCH (16:02)
[2018-12-12] MEDS: Vasopressin 100 UNITS in NS 95 ML IV SCH (16:11)
[2018-12-12] MEDS: Cefepime 2gm/D5W 110ml IV SCH ×2 (17:24)
--- NOTE | 2018-12-12 18:00 | NUR ---
NURSE NOTES: Left message for Dr Goodwin regarding lactic acid of 10.2. Patient blood pressure 94/50 on levophed 30mcg/hr, phenylephrine 140mcg/min, and vasopressin 2.4mL/hr. Will continue to monitor blood pressure and titrate medications per protocol.
--- NOTE | 2018-12-12 19:25 | NUR ---
HAND-OFF: Report given to CHARLEE Talavera. RT getting ABG at this time. Endorsed to follow up.
--- NOTE | 2018-12-12 19:26 | NUR ---
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
--- NOTE | 2018-12-12 19:40 | NUR ---
NURSE NOTES: See ABG results CALLED TO Dr Dejesus order a repeat.
--- NOTE | 2018-12-12 20:10 | NUR ---
NURSE NOTES: See 2nd ABG results,Called to .No New order.
--- NOTE | 2018-12-12 20:15 | NUR ---
RESPIRATORY NOTE: Received pt on AC 26, 600VT, 90%, PEEP +5. FiO2 increased to 100% d/t pt desaturation, will titrate as tolerated. Pt is trach-dependent w/ a cuffed, Shiley 8 tube. Pt is obtunded. B/S didi. rhonchi, sxn moderate amounts of thick, mccauley-brown secretions. Vent plugged into red outlet, ambubag at bedside. Pt in no apparent distress at this time. Will continue to monitor pt.
[2018-12-12] MEDS: Dyna-Hex 2% Top Sol 2oz TOPIC SCH (20:31)
[2018-12-12] MEDS: Minocycline HCl 50mg cap ORAL SCH (20:41)
--- NOTE | 2018-12-12 23:00 | NUR ---
NURSE NOTES: Repositioned,Suctioned.Neuro status same.See V/S.Scope rhythm same.Levo.drip and neosyneph.drip taperdown.Cont.with Bicarb.drip.F/Cath patent,Remain anuric. aware.
[2018-12-13] VITALS (61 sets, daily range): BP systolic 79–154; BP diastolic 33–69
[2018-12-13] MEDS: NovoLOG Insulin Flexpen SUBQ SCH ×4 (01:00→17:35)
--- NOTE | 2018-12-13 01:00 | NUR ---
NURSE NOTES: Suctioned,Repositioned.Kept comfortable.Cont.plan of care.
[2018-12-13] MEDS: Sodium Bicarbonate 50 ML in Sodium Chloride 1,000 ML IV SCH ×2 (01:01→11:12)
[2018-12-13] MEDS: Albuterol/Ipratropium 3ml neb HHN SCH ×3 (01:15→13:08)
--- NOTE | 2018-12-13 02:00 | NUR ---
NURSE NOTES: Suctioned.FIO2<70%.Sat.100%.Pos. chg.
--- NOTE | 2018-12-13 04:00 | NUR ---
NURSE NOTES: Blood drawn for cbc/bmp and lactic acid spec.to lab.See V/S.LEVO. drip at 20mcg/min.Raymond.drip at 100mcg/in.Mayte means.
[2018-12-13 05:05] LABS: HEMATOCRIT 25.1 % (37.0-47.0); MEAN CORPUSCULAR VOLUME 84 FL (80-99); PLATELET COUNT 178 K/UL (150-450); RED BLOOD COUNT 2.99 M/UL (4.20-5.40)
[2018-12-13 05:46] LABS: ALANINE AMINOTRANSFERASE 600 U/L (12-78); ALBUMIN 1.6 G/DL (3.4-5.0); ALBUMIN/GLOBULIN RATIO 0.5 (1.0-2.7); ALKALINE PHOSPHATASE 371 U/L (46-116); ANION GAP 22 mmol/L (5-15); ASPARTATE AMINO TRANSFERASE 1869 U/L (15-37); BILIRUBIN,TOTAL 2.5 MG/DL (0.2-1.0); BLOOD UREA NITROGEN 45 mg/dL (7-18); CALCIUM 7.5 MG/DL (8.5-10.1); CARBON DIOXIDE 12 MMOL/L (21-32); CHLORIDE 92 MMOL/L (98-107); CREATININE 1.9 MG/DL (0.55-1.30); POTASSIUM 4.3 MMOL/L (3.5-5.1); SODIUM 126 MMOL/L (136-145)
[2018-12-13 05:47] LABS: WHITE BLOOD COUNT 31.6 K/UL (4.8-10.8)
[2018-12-13] MEDS: Phenytoin Susp 100mg/4ml GT SCH ×3 (06:06→20:33)
[2018-12-13] MEDS: Magic Mouth Wash 60ml (Benadryl/Mylanta/Visc Lido) ORAL SCH ×3 (06:07→22:24)
[2018-12-13] MEDS: Labetalol 200mg tab GT SCH ×3 (06:07→20:33)
[2018-12-13] MEDS: Hydrocortisone 100mg Inj IV SCH ×3 (06:07→22:13)
[2018-12-13 06:16] LABS: BILIRUBIN,DIRECT 1.8 MG/DL (0.0-0.3)
--- NOTE | 2018-12-13 07:31 | NUR ---
HAND-OFF: Report given to CHARLEE SHAW.
--- NOTE | 2018-12-13 07:33 | NUR ---
NURSE NOTES: Report received from Delon DESHPANDE ,Pt in bed, obtunded. tongue protrusion less. coloration dark pink in color, some dry blood present in oral cavity. eyes half masked, sclera dry. trach to vent, current settings Shiley 8, ac 26 vt 600, fi02 70% peep 5, no sob, no Resp distress presented. lung sounds diminished, rhonchi. mild vibration of Lt upper chest on contact. secretions thick and dark brown /mccauley. on the monitor, Vs: 118/35, HR 97, RR 26, FI02 96%. GT connected intermittent suction. minimal output straw color. Ospina cath draining very dark urine, minimal output. KAITLYNN PICC line intact,with IVF bicarb 8.4@ at 100 ml/hr, levo @20, vasopressin 0.04u/hr, walter 100mcg/h. pitting edema upper and lower extremities. skin dry and scaly, moisturizer. skin-see assessment. contact and sz precautions in place. HOB elevated, bed lock in lowest position, will continue with pt care.
--- NOTE | 2018-12-13 08:06 | NUR ---
NURSE NOTES: CALLED AND LEFT MESSAGE FOR MD ZUÑIGA THAT ABG RESULTS IN FOR PT. WAS INFORMED PER PM RN THAT WANTS RESULTS SOON TAKEN. AWAITING CALL BACK.
--- NOTE | 2018-12-13 08:37 | Hematology/Onc Progress Note ---
Assessment/Plan Assessment/Plan # Anemia of chronic disease due to underlying chronic medical issues, multifactorial --> Anemia workup has been reviewed and cw acd --> No evidence of hemolysis is noted, peripheral smear has been reviewed --> Hgb goal >7. Transfuse prn. --> hgb trend 9-->8-->7.5-->9.3->8.6-->8.4-->8.7->7.6-->6.6-->7.6-->8.8-8>8.7--> 8 --> Epogen or iron indication prn --> Medications have been reviewed --> low threshold for gi evaluation and occult NEGATIVE # Leukocytosis with sepsis secondary to UTI, GPC staph epidermidis bacteremia, Line associated infection, patient arrived to the hospital with a PICC --> as per ID consult recs --> trend wbc 14k-->31k-->31.6 --> monitor for improvement --> Continue antibiotics per ID: Continue Zosyn and vancomycin, anti fungal added--> kaykay/vanc, diflucan-->flagyl, vanc, polymyxin--> omid/flagyl/polym/vanc /bactim-ds-->levofloxacin/vanco/linezolid/minocycline --> imaging noted # Thrombocytosis is likely due to underlying reactive process --> currently improved --> if doesn't improve send off jak2 --> plt count 641k-->402k-->344-->275k-->280k-->250k-->255k-->203k-->178 # Elevated tumor marker, cea --> as per gi eval # Transaminitis --> trend lft's --> GI consult, apprec recs --> ab us: reviewed # Elevated troponin secondary to sepsis versus ACS --> as per Cardiology recs # Hypertension- improved --> sbp goal <150 # Vent dependent with trach --> on vent currently --> as per Pulmonary recs # Hypokalemia --> give vit K # Dysphagia s/p gtube feeds # CHf hx with hyponatremia --> 1l fluid restriction # Dvt ppx with lovenox The timing of this note does not necessarily reflect the time of the patient was seen. GREATLY APPRECIATE CONSULTATION. Subjective Allergies: Coded Allergies: Crayfish (Unverified Allergy, Unknown, 11/11/18) Uncoded Allergies: Crawfish (Allergy, Unknown, 11/09/18) Subjective 11/14: no events to report, labs relatively stable, hgb 8.9, on vent 11/15: no bleeding, no chills, labs reviewed, no major changes 11/16: cxr-->bilateral interstitial edema, vs stable, on abx, on vent, contact isolation 11/17: labs reviewed, on abx, vs stable, on vent, no distress 11/18: remains on gtube feeds, is on vent, on kaykay/vanc 11/20: no events, no bleeding, kaykay, vanc, diflucan, no f/c 11/21: remains on vent, gtube feeds, no major changes, no bleeding 11/22: ct abdomen pelvis w/contrast reviewed, vs stable, no acute events, labs reviewed, remains intubated, low grade fever 11/23: reviewed meds, abx have been changed, remains altered currently 11/24: labs reviewed, vs stable, med reviewed, no sob, no distress, on vent 11/25: remains on vent, no major events, on glucerna, fluid restriction 11/27: signed consent today, no f/c, no night sweats 11/28: no f/c, on abx, on vent, no distress, picc line in 11/29: no events to report, no f/c, no bleeding noted, on vent 11/30: vs stable, no f/c, on vent, obtunded, gtube feeds 12/01: no f/c, cxr-->pulmonary edema, meds reviewed, contact precaution, on vent , labs noted 12/03: ongoing gtube feeds, nava in place, on vent, no bleeding 12/04: remains obtunded, on trach/to vent, no bleeding today, labs noted 12/05: electrolytes repleted overnight, no major changes, prbc was ordered hgb 6.6 12/06: on vent, trach dependent, no f/c, no bleeding 12/07: no events, labs noted 12/08: neck wounds being addressed, labs pending, no f/c overnight 12/09: on vent/trach, no bleeding, hgb 8.7, on gtube feeds 12/11: in icu, cxr noted, on vent, developed new hcap and uti, obtunded, on abx 12/12: no events, no bleeding, remains in the icu, coded yesterday 12/13: icu, obtunded, no overnight events, on vent, abx and pressor Objective Objective Current Medications Medications (Trade) Dose Ordered Sig/Lupe Route PRN Reason Start Time Stop Time Status Last Admin Dose Admin Acetaminophen (Tylenol) 650 mg Q4H PRN GT Mild Pain/Temp > 100.5 12/11/18 05:12 01/07/19 05:11 12/11/18 09:22 Albuterol/ Ipratropium (Albuterol/ Ipratropium) 3 ml Q6HRT HHN 12/11/18 07:00 12/13/18 18:59 12/13/18 06:59 Bisacodyl (Dulcolax) 10 mg DAILY PRN RECTAL Constipation 12/11/18 05:12 01/07/19 05:11 Cefepime HCl 2 gm/ Dextrose 110 ml @ 220 mls/hr Q24H IV 12/11/18 15:00 12/18/18 14:59 12/12/18 17:24 Chlorhexidine Gluconate (Corazon-Hex 2%) 1 applic DAILY@1999 TOPIC 12/11/18 20:00 01/07/19 19:59 12/12/18 20:31 Colistimethate Sodium (Colistin *inhalation use only*) 75 mg Q12HR@ INH 12/12/18 22:00 12/19/18 21:59 Dextrose (Dextrose 50%) 25 ml Q30M PRN IV Hypoglycemia 12/11/18 05:15 01/07/19 04:44 Dextrose (Dextrose 50%) 50 ml Q30M PRN IV Hypoglycemia 12/11/18 05:15 01/07/19 04:44 Enoxaparin Sodium (Lovenox) 40 mg DAILY SUBQ 12/11/18 09:00 01/07/19 08:59 12/12/18 08:51 Famotidine (Pepcid) 20 mg EVERY 12 HOURS GT 12/11/18 09:00 01/07/19 20:59 12/12/18 20:40 Hydrocortisone (Solu-CORTEF) 100 mg EVERY 8 HOURS IV 12/12/18 14:00 01/11/19 13:59 12/13/18 06:07 Insulin Aspart (NovoLOG) Q6HR SUBQ 12/11/18 06:00 01/07/19 05:59 12/13/18 01:00 Insulin Detemir (Levemir) 4 units EVERY 12 HOURS SUBQ 12/11/18 09:00 01/07/19 20:59 12/12/18 20:39 Labetalol HCl (Normodyne) 200 mg Q8HR GT 12/11/18 06:00 01/07/19 05:59 12/13/18 06:07 Lactulose (Cephulac) 10 gm THREE TIMES A DAY GT 12/11/18 09:00 01/07/19 17:59 12/12/18 18:45 Levetiracetam (Keppra) 1,500 mg Q12HR GT 12/11/18 09:00 01/07/19 08:59 12/12/18 20:40 Levofloxacin 150 ml @ 150 mls/hr Q48H IVPB 12/12/18 18:00 12/19/18 17:59 12/12/18 18:50 Linezolid 300 ml @ 300 mls/hr Q12HR IVPB 12/12/18 21:00 12/19/18 20:59 12/12/18 20:47 Magnesium Hydroxide (Mom) 30 ml DAILY PRN GT Constipation 12/11/18 05:15 01/07/19 05:14 Metoclopramide HCl (Reglan) 5 mg Q8H PRN IVP Nausea & Vomiting 12/11/18 05:15 01/09/19 05:14 Metronidazole 100 ml @ 100 mls/hr Q8HR IVPB 12/11/18 14:00 12/18/18 13:59 12/13/18 06:07 Minocycline HCl (Minocin) 100 mg Q12HR ORAL 12/12/18 21:00 12/19/18 20:59 12/12/18 20:41 Norepinephrine Bitartrate 8 mg/ Dextrose 500 ml @ 0 mls/hr Q24H IV 12/11/18 09:00 01/10/19 08:59 12/12/18 23:47 Ondansetron HCl (Zofran) 4 mg Q6H PRN GT Nausea & Vomiting 12/11/18 05:16 01/07/19 05:15 Phenobarbital (PHENobarbital) 60 mg BID GT 12/11/18 18:00 01/07/19 08:59 12/12/18 18:46 Phenylephrine HCl 100 mg/Dextrose 500 ml @ 0 mls/hr Q24H IV 12/11/18 09:00 01/10/19 08:59 12/12/18 09:52 Phenytoin (Dilantin) 100 mg Q8HR GT 12/11/18 06:00 01/07/19 05:59 12/13/18 06:06 Polyethylene Glycol (Miralax) 17 gm DAILYPRN PRN GT Constipation 12/11/18 05:17 01/07/19 05:16 Sennosides (Senokot) 8.6 mg EVERY 12 HOURS GT 12/11/18 09:00 01/07/19 20:59 12/12/18 20:41 Sodium Bicarbonate 50 ml/ Sodium Chloride 1,050 ml @ 100 mls/hr [id number] IV 12/12/18 14:00 01/11/19 13:59 12/13/18 01:01 Vasopressin 100 units/Sodium Chloride 100 ml @ 0 mls/hr Q24H IV 12/11/18 14:45 01/10/19 14:44 12/12/18 16:11 Last 24 Hour Vital Signs Date Time Temp Pulse Resp B/P (MAP) Pulse Ox O2 Delivery O2 Flow Rate FiO2 12/13/18 08:08 50 12/13/18 07:00 96 26 119/51 (73) 100 12/13/18 06:50 96 26 100 Mechanical Ventilator 70 96 26 70 12/13/18 06:45 96 26 114/47 (69) 100 12/13/18 06:30 96 26 123/50 (74) 100 12/13/18 06:15 95 26 122/52 (75) 100 12/13/18 06:07 96 120/52 12/13/18 06:00 95 26 123/50 (74) 100 12/13/18 05:45 95 26 120/52 (74) 100 12/13/18 05:30 95 26 121/49 (73) 100 12/13/18 05:23 95 26 70 12/13/18 05:15 95 26 118/53 (74) 100 12/13/18 05:00 95 26 119/53 (75) 100 12/13/18 04:45 95 26 117/53 (74) 100 12/13/18 04:30 95 26 114/53 (73) 100 12/13/18 04:15 95 26 111/54 (73) 100 12/13/18 04:00 99.1 95 26 112/48 (69) 100 12/13/18 04:00 Mechanical Ventilator 12/13/18 04:00 70 12/13/18 03:45 95 26 111/55 (73) 100 12/13/18 03:36 93 12/13/18 03:30 95 26 110/52 (71) 100 12/13/18 03:19 96 26 70 12/13/18 03:15 96 26 113/67 (82) 100 12/13/18 03:00 96 26 125/63 (83) 100 12/13/18 02:30 96 26 122/64 (83) 100 12/13/18 02:15 97 26 124/66 (85) 100 12/13/18 02:00 97 26 120/66 (84) 100 12/13/18 01:45 97 26 123/60 (81) 100 12/13/18 01:30 97 26 124/62 (82) 100 12/13/18 01:25 97 26 100 Mechanical Ventilator 70 12/13/18 01:15 97 26 123/69 (87) 100 12/13/18 01:15 97 26 100 Mechanical Ventilator 70 97 26 70 12/13/18 00:45 97 26 120/58 (78) 100 12/13/18 00:30 98 26 121/63 (82) 100 12/13/18 00:15 98 26 121/61 (81) 100 12/13/18 00:00 70 12/13/18 00:00 Mechanical Ventilator 12/13/18 00:00 98.7 97 26 125/64 (84) 100 12/13/18 00:00 97 12/12/18 23:47 107/52 12/12/18 23:45 99 26 106/63 (77) 100 12/12/18 23:30 100 26 70 12/12/18 23:30 99 26 109/64 (79) 100 12/12/18 23:00 102 26 122/65 (84) 100 12/12/18 22:45 106 26 140/68 (92) 100 12/12/18 22:30 106 26 141/74 (96) 100 12/12/18 22:15 106 26 142/56 (84) 100 12/12/18 22:00 80 12/12/18 22:00 105 26 133/65 (87) 100 12/12/18 21:45 104 26 130/64 (86) 100 12/12/18 21:40 101 112/68 12/12/18 21:30 102 26 120/71 (87) 100 12/12/18 21:15 99 26 112/68 (83) 100 12/12/18 21:09 97 26 80 12/12/18 21:00 97 26 110/58 (75) 100 12/12/18 20:45 95 26 101/54 (70) 100 12/12/18 20:30 95 26 97/51 (66) 100 12/12/18 20:15 94 26 102/54 (70) 100 12/12/18 20:09 92 26 100 Mechanical Ventilator 100 12/12/18 20:00 Mechanical Ventilator 12/12/18 20:00 90 12/12/18 20:00 92 26 100/43 (62) 100 12/12/18 19:59 93 26 100 Mechanical Ventilator 100 93 26 100 12/12/18 19:45 93 26 101/48 (65) 100 12/12/18 19:30 93 26 101/43 (62) 100 12/12/18 19:24 93 12/12/18 19:15 93 26 108/46 (66) 100 12/12/18 19:00 107/63 12/12/18 19:00 98.5 93 26 111/61 (78) 100 12/12/18 18:45 92 26 101/52 (68) 100 12/12/18 18:45 85/49 12/12/18 18:30 91 26 85/49 (61) 100 12/12/18 18:30 69/35 12/12/18 18:15 91 26 77/41 (53) 100 12/12/18 18:15 84/39 12/12/18 18:00 91 26 84/39 (54) 100 12/12/18 18:00 104/48 12/12/18 17:45 104/46 12/12/18 17:45 91 26 104/46 (65) 100 12/12/18 17:30 114/52 12/12/18 17:30 92 26 114/52 (72) 100 12/12/18 17:15 91 26 114/41 (65) 100 12/12/18 17:15 111/41 12/12/18 17:00 108/54 12/12/18 17:00 92 26 108/54 (72) 100 12/12/18 16:50 91 20 90 12/12/18 16:45 91 26 110/63 (79) 100 12/12/18 16:45 110/63 12/12/18 16:30 117/56 12/12/18 16:30 90 26 117/56 (76) 100 12/12/18 16:15 126/61 12/12/18 16:15 88 26 126/61 (82) 100 12/12/18 16:00 97.5 87 26 131/72 (91) 100 12/12/18 16:00 75 12/12/18 16:00 90 12/12/18 16:00 131/72 12/12/18 16:00 Mechanical Ventilator 12/12/18 15:45 87 26 129/72 (91) 100 12/12/18 15:45 129/72 12/12/18 15:30 86 26 118/61 (80) 100 12/12/18 15:30 118/61 12/12/18 15:15 86 26 113/61 (78) 100 12/12/18 15:15 113/61 12/12/18 15:00 85 26 107/59 (75) 100 12/12/18 15:00 107/59 12/12/18 14:45 75/42 12/12/18 14:30 108/55 12/12/18 14:30 85 26 108/55 (72) 98 12/12/18 14:30 85 26 75 12/12/18 14:15 115/62 12/12/18 14:00 125/68 12/12/18 14:00 85 100/54 12/12/18 14:00 83 26 88/54 (65) 100 12/12/18 13:45 120/75 12/12/18 13:36 88/54 12/12/18 13:30 83 26 92/56 (68) 100 12/12/18 13:30 88/54 12/12/18 13:26 82/93 12/12/18 13:15 81 26 Mechanical Ventilator 75 12/12/18 13:15 82/53 12/12/18 13:00 83 26 95/60 (72) 96 12/12/18 13:00 75 12/12/18 13:00 92/56 12/12/18 12:45 104/63 12/12/18 12:30 95/60 12/12/18 12:30 83 26 95/60 (72) 96 12/12/18 12:15 89/52 12/12/18 12:00 82 12/12/18 12:00 Mechanical Ventilator 12/12/18 12:00 95/58 12/12/18 12:00 94.1 82 26 95/58 (70) 96 12/12/18 11:45 104/51 12/12/18 11:30 91/55 12/12/18 11:15 100/57 12/12/18 11:15 81 26 91/55 (67) 98 12/12/18 11:00 80 26 103/55 (71) 98 12/12/18 11:00 103/55 12/12/18 10:45 83 26 75 12/12/18 10:45 104/59 12/12/18 10:45 80 26 104/59 (74) 97 12/12/18 10:30 79 26 92/68 (76) 100 12/12/18 10:30 92/68 12/12/18 10:15 116/65 12/12/18 10:15 79 26 116/65 (82) 100 12/12/18 10:00 113/56 12/12/18 10:00 79 26 113/56 (75) 100 12/12/18 09:52 78 117/59 12/12/18 09:45 117/59 12/12/18 09:45 79 26 117/59 (78) 99 12/12/18 09:30 79 26 123/62 (82) 99 12/12/18 09:30 123/62 9/24/19 09:15 123/67 12/12/18 09:15 80 26 123/67 (85) 99 12/12/18 09:00 130/66 12/12/18 09:00 79 24 130/66 (87) 100 12/12/18 08:48 103/50 12/12/18 08:45 76 26 100/57 (71) 96 12/12/18 08:45 100/57 12/12/18 08:45 77 26 75 12/12/18 08:30 78 26 103/50 (67) 97 12/12/18 08:30 103/50 12/12/18 08:15 78 26 113/61 (78) 98 12/12/18 08:15 113/61 12/12/18 08:00 79 12/12/18 08:00 Mechanical Ventilator 12/12/18 08:00 121/63 12/12/18 08:00 75 12/12/18 08:00 97.3 79 26 121/63 (82) 99 12/12/18 07:45 79 26 126/65 (85) 100 12/12/18 07:45 126/65 12/12/18 07:30 80 26 130/66 (87) 100 12/12/18 07:30 130/66 12/12/18 07:17 75 26 100 75 12/12/18 07:15 134/72 12/12/18 07:15 79 26 134/72 (92) 100 12/12/18 07:07 79 26 Mechanical Ventilator 75 75 12/12/18 07:00 80 26 130/67 (88) 100 12/12/18 07:00 130/67 12/12/18 06:45 81 26 131/70 (90) 100 12/12/18 06:30 80 26 126/68 (87) 100 12/12/18 06:15 123/63 12/12/18 06:15 80 26 123/63 (83) 100 12/12/18 06:00 128/65 12/12/18 06:00 78 26 129/65 (86) 100 12/12/18 05:47 81 128/66 12/12/18 05:46 136/74 12/12/18 05:45 80 26 136/74 (94) 100 12/12/18 05:30 128/66 9/24/19 05:30 80 26 128/66 (86) 100 12/12/18 05:15 79 26 124/68 (86) 100 12/12/18 05:13 124/68 12/12/18 05:00 81 26 113/54 (73) 98 12/12/18 05:00 113/54 12/12/18 04:59 80 26 75 12/12/18 04:45 118/63 12/12/18 04:45 80 26 118/63 (81) 99 12/12/18 04:30 81 26 113/54 (73) 98 12/12/18 04:30 113/54 12/12/18 04:15 103/62 12/12/18 04:15 82 26 103/62 (76) 98 12/12/18 04:00 75 12/12/18 04:00 111/59 12/12/18 04:00 97.7 85 26 111/59 (76) 98 12/12/18 04:00 Mechanical Ventilator 12/12/18 03:45 87 26 118/60 (79) 97 12/12/18 03:45 118/60 12/12/18 03:39 120/63 12/12/18 03:30 88 26 120/63 (82) 97 12/12/18 03:30 124/65 12/12/18 03:16 87 12/12/18 03:15 89 26 124/65 (84) 99 12/12/18 03:15 164/78 12/12/18 03:14 88 26 75 12/12/18 03:00 169/81 12/12/18 03:00 90 26 169/81 (110) 100 12/12/18 02:45 169/93 12/12/18 02:45 90 26 169/93 (118) 99 12/12/18 02:30 125/73 12/12/18 02:30 87 26 125/73 (90) 96 12/12/18 02:15 90 16 122/70 (87) 99 12/12/18 02:15 122/70 12/12/18 02:00 133/74 12/12/18 02:00 89 26 133/74 (93) 100 12/12/18 01:45 89 26 133/74 (93) 99 12/12/18 01:30 89 26 133/82 (99) 99 12/12/18 01:26 88 26 100 Mechanical Ventilator 75 12/12/18 01:16 88 26 98 Mechanical Ventilator 75 88 26 75 12/12/18 01:15 89 26 126/73 (90) 99 12/12/18 01:00 133/82 12/12/18 01:00 88 26 124/67 (86) 99 12/12/18 00:45 87 26 133/74 (93) 99 12/12/18 00:30 87 26 133/70 (91) 100 12/12/18 00:15 88 26 133/70 (91) 100 12/12/18 00:00 88 12/12/18 00:00 Mechanical Ventilator 12/12/18 00:00 88 26 133/72 (92) 99 12/12/18 00:00 88 131/73 12/11/18 23:45 87 26 131/73 (92) 99 12/11/18 23:30 89 26 132/68 (89) 99 12/11/18 23:15 88 26 125/71 (89) 99 12/11/18 23:12 88 26 75 12/11/18 23:03 88 12/11/18 23:00 125/71 12/11/18 23:00 88 26 120/69 (86) 98 12/11/18 22:47 126/72 12/11/18 22:45 88 26 106/58 (74) 98 12/11/18 22:30 89 26 126/72 (90) 98 12/11/18 22:15 90 26 118/58 (78) 98 12/11/18 22:00 118/58 12/11/18 22:00 88 118/58 12/11/18 22:00 90 26 129/70 (89) 98 12/11/18 21:45 94 26 128/72 (90) 98 12/11/18 21:30 85 26 121/69 (86) 97 12/11/18 21:15 85 26 118/52 (74) 97 12/11/18 21:01 86 26 75 12/11/18 21:00 86 27 123/68 (86) 98 12/11/18 21:00 118/52 12/11/18 21:00 75 12/11/18 20:45 86 26 121/63 (82) 100 12/11/18 20:30 86 27 121/70 (87) 100 12/11/18 20:15 85 26 117/63 (81) 100 12/11/18 20:00 117/63 12/11/18 20:00 85 26 117/62 (80) 100 12/11/18 20:00 Mechanical Ventilator 12/11/18 20:00 90 12/11/18 19:45 85 26 115/72 (86) 100 12/11/18 19:30 85 26 112/69 (83) 100 12/11/18 19:26 85 26 100 Mechanical Ventilator 90 12/11/18 19:23 85 12/11/18 19:16 85 26 97 Mechanical Ventilator 90 86 26 90 12/11/18 19:15 85 26 97/64 (75) 99 12/11/18 19:00 85 26 111/61 (78) 97 12/11/18 19:00 97.4 85 26 111/61 (78) 97 12/11/18 19:00 111/61 12/11/18 18:30 84 26 106/66 (79) 97 12/11/18 18:17 106/65 12/11/18 18:15 84 26 103/54 (70) 98 12/11/18 18:00 85 26 106/65 (79) 98 12/11/18 18:00 103/54 12/11/18 17:45 85 26 104/64 (77) 97 12/11/18 17:30 85 26 101/62 (75) 95 12/11/18 17:15 85 26 100/59 (73) 93 12/11/18 17:00 84 26 98/57 (71) 93 12/11/18 17:00 85 26 100 12/11/18 17:00 98/57 12/11/18 16:30 86 111/55 12/11/18 16:15 87 26 111/55 (73) 97 12/11/18 16:00 Mechanical Ventilator 12/11/18 16:00 97.3 91 26 113/61 (78) 96 12/11/18 16:00 113/61 12/11/18 16:00 100 12/11/18 15:45 88 26 116/66 (83) 98 12/11/18 15:31 87 12/11/18 15:30 87 26 104/56 (72) 96 12/11/18 15:00 84/55 12/11/18 15:00 87 26 84/55 (65) 96 12/11/18 14:52 87 26 100 12/11/18 14:45 87 26 87/49 (62) 95 12/11/18 14:30 88 26 81/47 (58) 95 12/11/18 14:15 88 26 87/43 (58) 95 12/11/18 14:13 89/51 12/11/18 14:00 87/43 12/11/18 14:00 88 87/43 12/11/18 14:00 89 26 90/35 (53) 95 12/11/18 13:30 92 26 91/48 (62) 91 12/11/18 13:00 90 26 90 Mechanical Ventilator 90 94 26 90 12/11/18 13:00 93 26 89/51 (64) 92 12/11/18 13:00 88/47 12/11/18 12:30 96 26 96/50 (65) 93 12/11/18 12:00 98.6 92 26 100/52 (68) 95 12/11/18 12:00 90 12/11/18 12:00 98/49 12/11/18 12:00 Mechanical Ventilator 12/11/18 11:32 86 12/11/18 11:30 98 26 112/44 (66) 95 12/11/18 11:00 99 26 111/52 (71) 96 12/11/18 11:00 111/52 12/11/18 10:48 97 24 90 12/11/18 10:30 101 24 103/53 (70) 99 12/11/18 10:15 103 24 103/53 (70) 98 12/11/18 10:00 104 24 100/52 (68) 98 12/11/18 09:52 100.6 12/11/18 09:45 105 23 103/52 (69) 97 12/11/18 09:35 107/58 12/11/18 09:33 106 107/58 12/11/18 09:30 105 24 114/55 (74) 97 12/11/18 09:15 108 24 107/61 (76) 97 12/11/18 09:06 109 24 100 12/11/18 09:00 100.8 110 18 105/59 (74) 89 12/11/18 09:00 94/57 12/11/18 09:00 106 109/61 12/11/18 08:45 112 23 95/70 (78) 88 Intake and Output 12/12/18 12/13/18 19:00 07:00 Intake Total 2182.800 ml 3287.3 ml Output Total 300 ml 400 ml Balance 1882.800 ml 2887.3 ml IV Total 2152.800 ml 3287.3 ml Other 30 ml Output Urine Total 0 ml 0 ml Gastric Drainage Total 300 ml 400 ml Labs Test 12/11/18 03:25 12/11/18 07:45 12/11/18 10:29 12/12/18 03:15 White Blood Count 11.7 K/UL (4.8-10.8) 30.9 K/UL (4.8-10.8) Red Blood Count 3.21 M/UL (4.20-5.40) 3.31 M/UL (4.20-5.40) Hemoglobin 8.8 G/DL (12.0-16.0) 8.7 G/DL (12.0-16.0) Hematocrit 26.5 % (37.0-47.0) 28.1 % (37.0-47.0) Mean Corpuscular Volume 83 FL (80-99) 85 FL (80-99) Mean Corpuscular Hemoglobin 27.3 PG (27.0-31.0) 26.4 PG (27.0-31.0) Mean Corpuscular Hemoglobin Concent 33.1 G/DL (32.0-36.0) 31.0 G/DL (32.0-36.0) Red Cell Distribution Width 16.5 % (11.6-14.8) 18.2 % (11.6-14.8) Platelet Count 203 K/UL (150-450) 215 K/UL (150-450) Mean Platelet Volume 6.1 FL (6.5-10.1) 6.7 FL (6.5-10.1) Neutrophils (%) (Auto) % (45.0-75.0) % (45.0-75.0) Lymphocytes (%) (Auto) % (20.0-45.0) % (20.0-45.0) Monocytes (%) (Auto) % (1.0-10.0) % (1.0-10.0) Eosinophils (%) (Auto) % (0.0-3.0) % (0.0-3.0) Basophils (%) (Auto) % (0.0-2.0) % (0.0-2.0) Sodium Level 142 MMOL/L (136-145) 130 MMOL/L (136-145) Potassium Level 3.5 MMOL/L (3.5-5.1) 4.1 MMOL/L (3.5-5.1) Chloride Level 104 MMOL/L (98-107) 94 MMOL/L (98-107) Carbon Dioxide Level 25 MMOL/L (21-32) 10 MMOL/L (21-32) Anion Gap 13 mmol/L (5-15) 27 mmol/L (5-15) Blood Urea Nitrogen 37 mg/dL (7-18) 42 mg/dL (7-18) Creatinine 1.3 MG/DL (0.55-1.30) 1.9 MG/DL (0.55-1.30) Estimat Glomerular Filtration Rate mL/min (>60) mL/min (>60) Glucose Level 87 MG/DL (74-106) 170 MG/DL (74-106) Calcium Level 8.8 MG/DL (8.5-10.1) 7.8 MG/DL (8.5-10.1) Arterial Blood pH 7.186 (7.350-7.450) 7.317 (7.350-7.450) Arterial Blood Partial Pressure CO2 40.2 mmHg (35.0-45.0) 23.9 mmHg (35.0-45.0) Arterial Blood Partial Pressure O2 85.0 mmHg (75.0-100.0) 103.6 mmHg (75.0-100.0) Arterial Blood HCO3 14.9 mmol/L (22.0-26.0) 12.0 mmol/L (22.0-26.0) Arterial Blood Oxygen Saturation 93.1 % (95-100) 97.0 % (95-100) Arterial Blood Base Excess -12.6 (-2-2) -12.7 (-2-2) Harsh Test Positive Positive Differential Total Cells Counted 100 Neutrophils % (Manual) 81 % (45-75) Lymphocytes % (Manual) 5 % (20-45) Monocytes % (Manual) 5 % (1-10) Eosinophils % (Manual) 0 % (0-3) Basophils % (Manual) 0 % (0-2) Band Neutrophils 9 % (0-8) Platelet Estimate Adequate Platelet Morphology Normal Hypochromasia 1+ Zeinab Cells 1+ Total Bilirubin 2.0 MG/DL (0.2-1.0) Direct Bilirubin 1.5 MG/DL (0.0-0.3) Aspartate Amino Transf (AST/SGOT) 1122 U/L (15-37) Alanine Aminotransferase (ALT/SGPT) 342 U/L (12-78) Alkaline Phosphatase 335 U/L (46-116) Total Protein 5.4 G/DL (6.4-8.2) Albumin 1.2 G/DL (3.4-5.0) Globulin 4.2 g/dL Albumin/Globulin Ratio 0.3 (1.0-2.7) Test 12/12/18 11:39 12/12/18 14:00 12/12/18 16:55 12/12/18 19:01 Arterial Blood pH 7.190 (7.350-7.450) Arterial Blood Partial Pressure CO2 22.7 mmHg (35.0-45.0) Arterial Blood Partial Pressure O2 88.0 mmHg (75.0-100.0) Arterial Blood HCO3 8.5 mmol/L (22.0-26.0) Arterial Blood Oxygen Saturation 95.0 % (95-100) Arterial Blood Base Excess -18.0 (-2-2) Harsh Test Positive Thyroid Stimulating Hormone (TSH) 0.290 uiU/mL (0.358-3.740) Cortisol 6.7 UG/DL Lactic Acid Level 10.20 mmol/L (0.4-2.0) 10.30 mmol/L (0.66-2.22) Test 12/12/18 19:06 12/12/18 19:39 12/13/18 03:15 12/13/18 05:40 Arterial Blood pH 7.142 (7.350-7.450) 7.226 (7.350-7.450) Arterial Blood Partial Pressure CO2 30.8 mmHg (35.0-45.0) 21.4 mmHg (35.0-45.0) Arterial Blood Partial Pressure O2 < 45.3 mmHg (75.0-100.0) 298.5 mmHg (75.0-100.0) Arterial Blood HCO3 10.3 mmol/L (22.0-26.0) 8.7 mmol/L (22.0-26.0) Arterial Blood Oxygen Saturation 66.3 % (95-100) 99.2 % (95-100) Arterial Blood Base Excess -17.3 (-2-2) -17.2 (-2-2) Harsh Test Positive Positive White Blood Count 31.6 K/UL (4.8-10.8) Red Blood Count 2.99 M/UL (4.20-5.40) Hemoglobin 8.0 G/DL (12.0-16.0) Hematocrit 25.1 % (37.0-47.0) Mean Corpuscular Volume 84 FL (80-99) Mean Corpuscular Hemoglobin 26.7 PG (27.0-31.0) Mean Corpuscular Hemoglobin Concent 31.8 G/DL (32.0-36.0) Red Cell Distribution Width 18.0 % (11.6-14.8) Platelet Count 178 K/UL (150-450) Mean Platelet Volume 7.1 FL (6.5-10.1) Neutrophils (%) (Auto) % (45.0-75.0) Lymphocytes (%) (Auto) % (20.0-45.0) Monocytes (%) (Auto) % (1.0-10.0) Eosinophils (%) (Auto) % (0.0-3.0) Basophils (%) (Auto) % (0.0-2.0) Differential Total Cells Counted 100 Neutrophils % (Manual) 84 % (45-75) Lymphocytes % (Manual) 3 % (20-45) Monocytes % (Manual) 3 % (1-10) Eosinophils % (Manual) 3 % (0-3) Basophils % (Manual) 0 % (0-2) Band Neutrophils 7 % (0-8) Nucleated Red Blood Cells 1 /100 WBC Platelet Estimate Adequate Platelet Morphology Normal Hypochromasia 1+ Anisocytosis 1+ Target Cells 1+ Sodium Level 126 MMOL/L (136-145) Potassium Level 4.3 MMOL/L (3.5-5.1) Chloride Level 92 MMOL/L (98-107) Carbon Dioxide Level 12 MMOL/L (21-32) Anion Gap 22 mmol/L (5-15) Blood Urea Nitrogen 45 mg/dL (7-18) Creatinine 1.9 MG/DL (0.55-1.30) Estimat Glomerular Filtration Rate mL/min (>60) Glucose Level 112 MG/DL (74-106) Lactic Acid Level 10.30 mmol/L (0.4-2.0) 10.40 mmol/L (0.66-2.22) Calcium Level 7.5 MG/DL (8.5-10.1) Total Bilirubin 2.5 MG/DL (0.2-1.0) Direct Bilirubin 1.8 MG/DL (0.0-0.3) Aspartate Amino Transf (AST/SGOT) 1869 U/L (15-37) Alanine Aminotransferase (ALT/SGPT) 600 U/L (12-78) Alkaline Phosphatase 371 U/L (46-116) Total Protein 5.0 G/DL (6.4-8.2) Albumin 1.6 G/DL (3.4-5.0) Globulin 3.4 g/dL Albumin/Globulin Ratio 0.5 (1.0-2.7) Test 12/13/18 07:45 Arterial Blood pH 7.228 (7.350-7.450) Arterial Blood Partial Pressure CO2 22.9 mmHg (35.0-45.0) Arterial Blood Partial Pressure O2 141.7 mmHg (75.0-100.0) Arterial Blood HCO3 9.3 mmol/L (22.0-26.0) Arterial Blood Oxygen Saturation 98.0 % (95-100) Arterial Blood Base Excess -16.3 (-2-2) Harsh Test Positive Height (Feet): 5 Height (Inches): 8.00 Weight (Pounds): 232 Objective Physical Exam: Vitals: reviewed Gen: NAD, nonverbal HEENT: normocephalic, atraumatic Neck: non-tender, normal alignment ++ vent/trach Respiratory: normal breath sounds bilaterally CV: normal peripheral pulses, rrr Abdomen: normal bowel sounds, soft, nontender +gtube Extremities: 1-2+ edema, nava+ Yonathan Hernandez MD Dec 13, 2018 08:37
--- NOTE | 2018-12-13 08:48 | General Progress Note ---
Assessment/Plan Status: stable Assessment/Plan: (1) Abnormal LFTs ICD Codes: R94.5 - Abnormal results of liver function studies SNOMED: 832344810 (2) Decubitus skin ulcer ICD Codes: L89.90 - Pressure ulcer of unspecified site, unspecified stage SNOMED: 129054663 (3) Protein calorie malnutrition ICD Codes: E46 - Unspecified protein-calorie malnutrition SNOMED: 639586355 (4) Colon adenocarcinoma ICD Codes: C18.9 - Malignant neoplasm of colon, unspecified SNOMED: 296072161 (5) Sepsis ICD Codes: A41.9 - Sepsis, unspecified organism SNOMED: 88533720 (6) Tracheostomy dependence ICD Codes: Z93.0 - Tracheostomy status SNOMED: 136965116 (7) Gastrostomy in place (8) shock liver . Assessment/Plan Assessment - Iron deficiency anemia - abnormal LFT - ? meds, passive congestion - dysphagia, s/p GT - Resp, failure, s/p Trach - hepatitis panel negative Recommendations - TF will resume -s/p code blue on pressors - Monitor LFT>> shock liver - follow CBC - Conservative approach given poor health- -neg stool ob Subjective ROS Limited/Unobtainable: No Allergies: Coded Allergies: Crayfish (Unverified Allergy, Unknown, 11/11/18) Uncoded Allergies: Crawfish (Allergy, Unknown, 11/09/18) Subjective fever last night had BM Objective Last 24 Hour Vital Signs Date Time Temp Pulse Resp B/P (MAP) Pulse Ox O2 Delivery O2 Flow Rate FiO2 12/13/18 08:08 50 12/13/18 07:00 96 26 119/51 (73) 100 12/13/18 06:50 96 26 100 Mechanical Ventilator 70 96 26 70 12/13/18 06:45 96 26 114/47 (69) 100 12/13/18 06:30 96 26 123/50 (74) 100 12/13/18 06:15 95 26 122/52 (75) 100 12/13/18 06:07 96 120/52 12/13/18 06:00 95 26 123/50 (74) 100 12/13/18 05:45 95 26 120/52 (74) 100 12/13/18 05:30 95 26 121/49 (73) 100 12/13/18 05:23 95 26 70 12/13/18 05:15 95 26 118/53 (74) 100 12/13/18 05:00 95 26 119/53 (75) 100 12/13/18 04:45 95 26 117/53 (74) 100 12/13/18 04:30 95 26 114/53 (73) 100 12/13/18 04:15 95 26 111/54 (73) 100 12/13/18 04:00 99.1 95 26 112/48 (69) 100 12/13/18 04:00 Mechanical Ventilator 12/13/18 04:00 70 12/13/18 03:45 95 26 111/55 (73) 100 12/13/18 03:36 93 12/13/18 03:30 95 26 110/52 (71) 100 12/13/18 03:19 96 26 70 12/13/18 03:15 96 26 113/67 (82) 100 12/13/18 03:00 96 26 125/63 (83) 100 12/13/18 02:30 96 26 122/64 (83) 100 12/13/18 02:15 97 26 124/66 (85) 100 12/13/18 02:00 97 26 120/66 (84) 100 12/13/18 01:45 97 26 123/60 (81) 100 12/13/18 01:30 97 26 124/62 (82) 100 12/13/18 01:25 97 26 100 Mechanical Ventilator 70 12/13/18 01:15 97 26 123/69 (87) 100 12/13/18 01:15 97 26 100 Mechanical Ventilator 70 97 26 70 12/13/18 00:45 97 26 120/58 (78) 100 12/13/18 00:30 98 26 121/63 (82) 100 12/13/18 00:15 98 26 121/61 (81) 100 12/13/18 00:00 70 12/13/18 00:00 Mechanical Ventilator 12/13/18 00:00 98.7 97 26 125/64 (84) 100 12/13/18 00:00 97 12/12/18 23:47 107/52 12/12/18 23:45 99 26 106/63 (77) 100 12/12/18 23:30 100 26 70 12/12/18 23:30 99 26 109/64 (79) 100 12/12/18 23:00 102 26 122/65 (84) 100 12/12/18 22:45 106 26 140/68 (92) 100 12/12/18 22:30 106 26 141/74 (96) 100 12/12/18 22:15 106 26 142/56 (84) 100 12/12/18 22:00 80 12/12/18 22:00 105 26 133/65 (87) 100 12/12/18 21:45 104 26 130/64 (86) 100 12/12/18 21:40 101 112/68 12/12/18 21:30 102 26 120/71 (87) 100 12/12/18 21:15 99 26 112/68 (83) 100 12/12/18 21:09 97 26 80 12/12/18 21:00 97 26 110/58 (75) 100 12/12/18 20:45 95 26 101/54 (70) 100 12/12/18 20:30 95 26 97/51 (66) 100 12/12/18 20:15 94 26 102/54 (70) 100 12/12/18 20:09 92 26 100 Mechanical Ventilator 100 12/12/18 20:00 Mechanical Ventilator 12/12/18 20:00 90 12/12/18 20:00 92 26 100/43 (62) 100 12/12/18 19:59 93 26 100 Mechanical Ventilator 100 93 26 100 12/12/18 19:45 93 26 101/48 (65) 100 12/12/18 19:30 93 26 101/43 (62) 100 12/12/18 19:24 93 12/12/18 19:15 93 26 108/46 (66) 100 12/12/18 19:00 107/63 12/12/18 19:00 98.5 93 26 111/61 (78) 100 12/12/18 18:45 92 26 101/52 (68) 100 12/12/18 18:45 85/49 12/12/18 18:30 91 26 85/49 (61) 100 12/12/18 18:30 69/35 12/12/18 18:15 91 26 77/41 (53) 100 12/12/18 18:15 84/39 12/12/18 18:00 91 26 84/39 (54) 100 12/12/18 18:00 104/48 12/12/18 17:45 104/46 12/12/18 17:45 91 26 104/46 (65) 100 12/12/18 17:30 114/52 12/12/18 17:30 92 26 114/52 (72) 100 12/12/18 17:15 91 26 114/41 (65) 100 12/12/18 17:15 111/41 12/12/18 17:00 108/54 12/12/18 17:00 92 26 108/54 (72) 100 12/12/18 16:50 91 20 90 12/12/18 16:45 91 26 110/63 (79) 100 12/12/18 16:45 110/63 12/12/18 16:30 117/56 12/12/18 16:30 90 26 117/56 (76) 100 12/12/18 16:15 126/61 12/12/18 16:15 88 26 126/61 (82) 100 12/12/18 16:00 97.5 87 26 131/72 (91) 100 12/12/18 16:00 75 12/12/18 16:00 90 12/12/18 16:00 131/72 12/12/18 16:00 Mechanical Ventilator 12/12/18 15:45 87 26 129/72 (91) 100 12/12/18 15:45 129/72 12/12/18 15:30 86 26 118/61 (80) 100 12/12/18 15:30 118/61 12/12/18 15:15 86 26 113/61 (78) 100 12/12/18 15:15 113/61 12/12/18 15:00 85 26 107/59 (75) 100 12/12/18 15:00 107/59 12/12/18 14:45 75/42 12/12/18 14:30 108/55 12/12/18 14:30 85 26 108/55 (72) 98 12/12/18 14:30 85 26 75 12/12/18 14:15 115/62 12/12/18 14:00 125/68 12/12/18 14:00 85 100/54 12/12/18 14:00 83 26 88/54 (65) 100 12/12/18 13:45 120/75 12/12/18 13:36 88/54 12/12/18 13:30 83 26 92/56 (68) 100 12/12/18 13:30 88/54 12/12/18 13:26 82/93 12/12/18 13:15 81 26 Mechanical Ventilator 75 12/12/18 13:15 82/53 12/12/18 13:00 83 26 95/60 (72) 96 12/12/18 13:00 75 12/12/18 13:00 92/56 12/12/18 12:45 104/63 12/12/18 12:30 95/60 12/12/18 12:30 83 26 95/60 (72) 96 12/12/18 12:15 89/52 12/12/18 12:00 82 12/12/18 12:00 Mechanical Ventilator 12/12/18 12:00 95/58 12/12/18 12:00 94.1 82 26 95/58 (70) 96 12/12/18 11:45 104/51 12/12/18 11:30 91/55 12/12/18 11:15 100/57 12/12/18 11:15 81 26 91/55 (67) 98 12/12/18 11:00 80 26 103/55 (71) 98 12/12/18 11:00 103/55 12/12/18 10:45 83 26 75 12/12/18 10:45 104/59 12/12/18 10:45 80 26 104/59 (74) 97 12/12/18 10:30 79 26 92/68 (76) 100 12/12/18 10:30 92/68 12/12/18 10:15 116/65 12/12/18 10:15 79 26 116/65 (82) 100 12/12/18 10:00 113/56 12/12/18 10:00 79 26 113/56 (75) 100 12/12/18 09:52 78 117/59 12/12/18 09:45 117/59 12/12/18 09:45 79 26 117/59 (78) 99 12/12/18 09:30 79 26 123/62 (82) 99 12/12/18 09:30 123/62 12/12/18 09:15 123/67 12/12/18 09:15 80 26 123/67 (85) 99 9/24/19 09:00 130/66 12/12/18 09:00 79 24 130/66 (87) 100 12/12/18 08:48 103/50 Intake and Output 12/12/18 12/13/18 19:00 07:00 Intake Total 2182.800 ml 3287.3 ml Output Total 300 ml 400 ml Balance 1882.800 ml 2887.3 ml IV Total 2152.800 ml 3287.3 ml Other 30 ml Output Urine Total 0 ml 0 ml Gastric Drainage Total 300 ml 400 ml Laboratory Tests 12/12/18 11:39: Arterial Blood pH 7.190*L, Arterial Blood Partial Pressure CO2 22.7*L, Arterial Blood Partial Pressure O2 88.0, Arterial Blood HCO3 8.5*L, Arterial Blood Oxygen Saturation 95.0, Arterial Blood Base Excess -18.0*L, Harsh Test Positive 12/12/18 14:00: Thyroid Stimulating Hormone (TSH) 0.290L, Cortisol 6.7 12/12/18 16:55: Lactic Acid Level 10.20H 12/12/18 19:01: Lactic Acid Level 10.30H 12/12/18 19:06: Arterial Blood pH 7.142*L, Arterial Blood Partial Pressure CO2 30.8L, Arterial Blood Partial Pressure O2 < 45.3*L, Arterial Blood HCO3 10.3*L, Arterial Blood Oxygen Saturation 66.3*L, Arterial Blood Base Excess -17.3*L, Harsh Test Positive 12/12/18 19:39: Arterial Blood pH 7.226*L, Arterial Blood Partial Pressure CO2 21.4*L, Arterial Blood Partial Pressure O2 298.5H, Arterial Blood HCO3 8.7*L, Arterial Blood Oxygen Saturation 99.2, Arterial Blood Base Excess -17.2*L, Harsh Test Positive 12/13/18 03:15: White Blood Count 31.6*H, Red Blood Count 2.99L, Hemoglobin 8.0L, Hematocrit 25.1L, Mean Corpuscular Volume 84, Mean Corpuscular Hemoglobin 26.7L, Mean Corpuscular Hemoglobin Concent 31.8L, Red Cell Distribution Width 18.0H, Platelet Count 178, Mean Platelet Volume 7.1, Neutrophils (%) (Auto) , Lymphocytes (%) (Auto) , Monocytes (%) (Auto) , Eosinophils (%) (Auto) , Basophils (%) (Auto) , Differential Total Cells Counted 100, Neutrophils % ( Manual) 84H, Lymphocytes % (Manual) 3L, Monocytes % (Manual) 3, Eosinophils % ( Manual) 3, Basophils % (Manual) 0, Band Neutrophils 7, Nucleated Red Blood Cells 1, Platelet Estimate Adequate, Platelet Morphology Normal, Hypochromasia 1 +, Anisocytosis 1+, Target Cells 1+, Sodium Level 126L, Potassium Level 4.3, Chloride Level 92L, Carbon Dioxide Level 12L, Anion Gap 22H, Blood Urea Nitrogen 45H, Creatinine 1.9H, Estimat Glomerular Filtration Rate , Glucose Level 112H, Lactic Acid Level 10.30H, Calcium Level 7.5L, Total Bilirubin 2.5H, Direct Bilirubin 1.8H, Aspartate Amino Transf (AST/SGOT) 1869H, Alanine Aminotransferase (ALT/SGPT) 600H, Alkaline Phosphatase 371H, Total Protein 5.0L , Albumin 1.6L, Globulin 3.4, Albumin/Globulin Ratio 0.5L 12/13/18 05:40: Lactic Acid Level 10.40H 12/13/18 07:45: Arterial Blood pH 7.228*L, Arterial Blood Partial Pressure CO2 22.9*L, Arterial Blood Partial Pressure O2 141.7H, Arterial Blood HCO3 9.3*L, Arterial Blood Oxygen Saturation 98.0, Arterial Blood Base Excess -16.3*L, Harsh Test Positive Height (Feet): 5 Height (Inches): 8.00 Weight (Pounds): 232 General Appearance: lethargic EENT: normal ENT inspection Neck: supple Cardiovascular: normal rate Respiratory/Chest: decreased breath sounds Abdomen: normal bowel sounds, non tender, soft Extremities: non-tender Casper Humphries MD Dec 13, 2018 08:48
[2018-12-13] MEDS: Lactulose 10gm/15ml UDC GT SCH ×3 (09:37→17:31)
[2018-12-13] MEDS: levETIRAcetam 500mg/5ml Liquid GT SCH ×2 (09:37→20:32)
[2018-12-13] MEDS: Minocycline HCl 50mg cap ORAL SCH ×2 (09:38→20:23)
[2018-12-13] MEDS: Sennosides 8.6mg tab GT SCH ×2 (09:38→20:32)
[2018-12-13] MEDS: Acetaminophen 650mg/20.3ml GT PRN (09:38)
[2018-12-13] MEDS: PHENobarbital Elixir 30mg/7.5ml GT SCH ×2 (09:39→17:32)
[2018-12-13] MEDS: Enoxaparin 40mg Inj SUBQ SCH (09:45)
[2018-12-13] MEDS: Levemir Flexpen SUBQ SCH ×2 (09:46→20:33)
--- NOTE | 2018-12-13 10:23 | General Progress Note ---
Assessment/Plan Problem List: (1) Cardiac arrest ICD Codes: I46.9 - Cardiac arrest, cause unspecified SNOMED: 810551039 (2) Ventilator dependence ICD Codes: Z99.11 - Dependence on respirator [ventilator] status SNOMED: 588851956 (3) DAMASO (acute kidney injury) ICD Codes: N17.9 - Acute kidney failure, unspecified SNOMED: 0545133, 70118877 (4) Sepsis ICD Codes: A41.9 - Sepsis, unspecified organism SNOMED: 02971220 (5) Gram-negative pneumonia ICD Codes: J15.6 - Pneumonia due to other Gram-negative bacteria SNOMED: 251354856 (6) MRSA (methicillin resistant staphylococcus aureus) pneumonia ICD Codes: J15.212 - Pneumonia due to Methicillin resistant Staphylococcus aureus SNOMED: 928130728888724 (7) Fever ICD Codes: R50.9 - Fever, unspecified SNOMED: 113525504 (8) UTI (urinary tract infection) ICD Codes: N39.0 - Urinary tract infection, site not specified SNOMED: 36407437 (9) Tracheostomy dependence ICD Codes: Z93.0 - Tracheostomy status SNOMED: 353645904 (10) Protein calorie malnutrition ICD Codes: E46 - Unspecified protein-calorie malnutrition SNOMED: 801673972 (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 SNOMED: 78909609 (12) Drug rash ICD Codes: L27.0 - Generalized skin eruption due to drugs and medicaments taken internally SNOMED: 18091501 (13) Line sepsis ICD Codes: T85.79XA - Infection and inflammatory reaction due to other internal prosthetic devices, implants and grafts, initial encounter; A41.9 - Sepsis, unspecified organism SNOMED: 51249498, 543712681 (14) Bacteremia ICD Codes: R78.81 - Bacteremia SNOMED: 8440396 (15) Hyponatremia ICD Codes: E87.1 - Hypo-osmolality and hyponatremia SNOMED: 03624335 (16) Seizure disorder ICD Codes: G40.909 - Epilepsy, unspecified, not intractable, without status epilepticus SNOMED: 645029308 (17) Diabetes ICD Codes: E11.9 - Type 2 diabetes mellitus without complications SNOMED: 78261296 (18) Colon adenocarcinoma ICD Codes: C18.9 - Malignant neoplasm of colon, unspecified SNOMED: 081140711 (19) Anoxic brain damage ICD Codes: G93.1 - Anoxic brain damage, not elsewhere classified SNOMED: 158590433 (20) Decubitus skin ulcer ICD Codes: L89.90 - Pressure ulcer of unspecified site, unspecified stage SNOMED: 755964966 (21) Aspiration into airway ICD Codes: T17.908A - Unspecified foreign body in respiratory tract, part unspecified causing other injury, initial encounter SNOMED: 485643400 Qualifiers: Qualified Codes: T17.908A - Unspecified foreign body in respiratory tract, part unspecified causing other injury, initial encounter (22) Abnormal LFTs ICD Codes: R94.5 - Abnormal results of liver function studies SNOMED: 302311380 Status: stable Assessment/Plan: 78-year-old female who is trach dependent who was brought in by custodial for sepsis and found to have UTI and bacteremia. prolonged hospital course, multiple courses of antibiotics developed HCAP, then aspirated g tube contents and had a PEA arrest, coded x3, ROSC. Transferred to ICU #Cardiac arrest, septic shock. continue on pressors (norepinephrine, vasopressin, phenylephrine), monitor HR/BP , titrate down as tolerated to keep map >60 Adjust fio2 as needed will follow up cxr repeat ABG Hold all antihypertensives Bicarb drip per renal Met with daughters mathewjenifer and Anika at bedside. Updated them. They want her to remain full code. Reviewed available imagining with them. Ethics consult placed. Pulm.crit consult for vent management and critical care Dr. Dejesus d/w RN # Vent dependent. providencia/acinetobacter pna, proteus uti, sepsis, leukocytosis, fevers, hx wounds per surgery management, + picc line, blood cultures remain negative. possible aspiration event and worsening pna on chest x -ray. Antibiotics per ID: - inhaled colistin, cefepime, zyvox, flagyl, levofloxacin, minocycline re-check cultures and follow up f/u on labs and chest x-ray poor prognosis d/w Dr. Goodwin d/w Dr. Dejesus -Vent management per pulmonary #DAMASO- likely due to ATN. Stable today. continue to monitor urine output and renal function. Nephrology consult, Dr. Sommers. Renal dose all antibioitcs. Will avoid nephrotoxic medication. monitor urine output #hyponatremia- worsening . urine lytes. NS ordered per renal # Transaminitis - worsening, shock liver, Hepatitis panel negative. continue pressors. Monitor liver enzymes #Microcytic anemia- mixed anemia of chronic inflammation and iron deficiency. ferrous sulfate TID , transfused 1 uprbc 11/27. and another unit prbc 12/05. #Hypertension- now on pressors. Hold all antihypertensives #Decubitus ulcer. Managed by Dr. Hylton # tongue laceration, hematoma and edema, reduced by Dr. Hylton. Patient however continues to clench and bite down #Feeds via PEG: resume #Seizure: phenytoin and keppra. Phonobarb #GOC: had a family meeting with daughters and SW Sherice. Extensive conversation reg goals of care and code status. Remains full code. I continue to meet with family on a daily basis. prognosis poor Critical care time spent: 40 minutes Time of note may not reflect time of encounter. Subjective Date patient seen: Dec 13, 2018 ROS Limited/Unobtainable: Yes Allergies: Coded Allergies: Crayfish (Unverified Allergy, Unknown, 11/11/18) Uncoded Allergies: Crawfish (Allergy, Unknown, 11/09/18) Subjective obtunded on vent daughters at bedside. Remains critical Objective Last 24 Hour Vital Signs Date Time Temp Pulse Resp B/P (MAP) Pulse Ox O2 Delivery O2 Flow Rate FiO2 12/13/18 09:58 99 26 Mechanical Ventilator 50 12/13/18 08:08 50 12/13/18 08:00 98 12/13/18 08:00 70 12/13/18 07:00 96 26 119/51 (73) 100 12/13/18 06:50 96 26 100 Mechanical Ventilator 70 96 26 70 12/13/18 06:45 96 26 114/47 (69) 100 12/13/18 06:30 96 26 123/50 (74) 100 12/13/18 06:15 95 26 122/52 (75) 100 12/13/18 06:07 96 120/52 12/13/18 06:00 95 26 123/50 (74) 100 12/13/18 05:45 95 26 120/52 (74) 100 12/13/18 05:30 95 26 121/49 (73) 100 12/13/18 05:23 95 26 70 9/25/19 05:15 95 26 118/53 (74) 100 12/13/18 05:00 95 26 119/53 (75) 100 12/13/18 04:45 95 26 117/53 (74) 100 12/13/18 04:30 95 26 114/53 (73) 100 12/13/18 04:15 95 26 111/54 (73) 100 12/13/18 04:00 99.1 95 26 112/48 (69) 100 12/13/18 04:00 Mechanical Ventilator 12/13/18 04:00 70 12/13/18 03:45 95 26 111/55 (73) 100 12/13/18 03:36 93 12/13/18 03:30 95 26 110/52 (71) 100 12/13/18 03:19 96 26 70 12/13/18 03:15 96 26 113/67 (82) 100 12/13/18 03:00 96 26 125/63 (83) 100 12/13/18 02:30 96 26 122/64 (83) 100 12/13/18 02:15 97 26 124/66 (85) 100 12/13/18 02:00 97 26 120/66 (84) 100 12/13/18 01:45 97 26 123/60 (81) 100 12/13/18 01:30 97 26 124/62 (82) 100 12/13/18 01:25 97 26 100 Mechanical Ventilator 70 12/13/18 01:15 97 26 123/69 (87) 100 12/13/18 01:15 97 26 100 Mechanical Ventilator 70 97 26 70 12/13/18 00:45 97 26 120/58 (78) 100 12/13/18 00:30 98 26 121/63 (82) 100 12/13/18 00:15 98 26 121/61 (81) 100 12/13/18 00:00 70 12/13/18 00:00 Mechanical Ventilator 12/13/18 00:00 98.7 97 26 125/64 (84) 100 12/13/18 00:00 97 12/12/18 23:47 107/52 12/12/18 23:45 99 26 106/63 (77) 100 12/12/18 23:30 100 26 70 12/12/18 23:30 99 26 109/64 (79) 100 9/24/19 23:00 102 26 122/65 (84) 100 12/12/18 22:45 106 26 140/68 (92) 100 12/12/18 22:30 106 26 141/74 (96) 100 12/12/18 22:15 106 26 142/56 (84) 100 12/12/18 22:00 80 12/12/18 22:00 105 26 133/65 (87) 100 12/12/18 21:45 104 26 130/64 (86) 100 12/12/18 21:40 101 112/68 12/12/18 21:30 102 26 120/71 (87) 100 12/12/18 21:15 99 26 112/68 (83) 100 12/12/18 21:09 97 26 80 12/12/18 21:00 97 26 110/58 (75) 100 12/12/18 20:45 95 26 101/54 (70) 100 12/12/18 20:30 95 26 97/51 (66) 100 12/12/18 20:15 94 26 102/54 (70) 100 12/12/18 20:09 92 26 100 Mechanical Ventilator 100 12/12/18 20:00 Mechanical Ventilator 12/12/18 20:00 90 12/12/18 20:00 92 26 100/43 (62) 100 12/12/18 19:59 93 26 100 Mechanical Ventilator 100 93 26 100 12/12/18 19:45 93 26 101/48 (65) 100 12/12/18 19:30 93 26 101/43 (62) 100 12/12/18 19:24 93 12/12/18 19:15 93 26 108/46 (66) 100 12/12/18 19:00 107/63 12/12/18 19:00 98.5 93 26 111/61 (78) 100 12/12/18 18:45 92 26 101/52 (68) 100 12/12/18 18:45 85/49 12/12/18 18:30 91 26 85/49 (61) 100 12/12/18 18:30 69/35 12/12/18 18:15 91 26 77/41 (53) 100 12/12/18 18:15 84/39 12/12/18 18:00 91 26 84/39 (54) 100 12/12/18 18:00 104/48 12/12/18 17:45 104/46 12/12/18 17:45 91 26 104/46 (65) 100 12/12/18 17:30 114/52 12/12/18 17:30 92 26 114/52 (72) 100 12/12/18 17:15 91 26 114/41 (65) 100 12/12/18 17:15 111/41 12/12/18 17:00 108/54 12/12/18 17:00 92 26 108/54 (72) 100 12/12/18 16:50 91 20 90 12/12/18 16:45 91 26 110/63 (79) 100 12/12/18 16:45 110/63 12/12/18 16:30 117/56 12/12/18 16:30 90 26 117/56 (76) 100 12/12/18 16:15 126/61 12/12/18 16:15 88 26 126/61 (82) 100 12/12/18 16:00 97.5 87 26 131/72 (91) 100 12/12/18 16:00 75 12/12/18 16:00 90 12/12/18 16:00 131/72 12/12/18 16:00 Mechanical Ventilator 12/12/18 15:45 87 26 129/72 (91) 100 12/12/18 15:45 129/72 12/12/18 15:30 86 26 118/61 (80) 100 12/12/18 15:30 118/61 12/12/18 15:15 86 26 113/61 (78) 100 12/12/18 15:15 113/61 12/12/18 15:00 85 26 107/59 (75) 100 12/12/18 15:00 107/59 12/12/18 14:45 75/42 12/12/18 14:30 108/55 12/12/18 14:30 85 26 108/55 (72) 98 12/12/18 14:30 85 26 75 12/12/18 14:15 115/62 12/12/18 14:00 125/68 12/12/18 14:00 85 100/54 12/12/18 14:00 83 26 88/54 (65) 100 12/12/18 13:45 120/75 12/12/18 13:36 88/54 12/12/18 13:30 83 26 92/56 (68) 100 12/12/18 13:30 88/54 12/12/18 13:26 82/93 12/12/18 13:15 81 26 Mechanical Ventilator 75 12/12/18 13:15 82/53 12/12/18 13:00 83 26 95/60 (72) 96 12/12/18 13:00 75 12/12/18 13:00 92/56 12/12/18 12:45 104/63 12/12/18 12:30 95/60 12/12/18 12:30 83 26 95/60 (72) 96 12/12/18 12:15 89/52 12/12/18 12:00 82 12/12/18 12:00 Mechanical Ventilator 12/12/18 12:00 95/58 12/12/18 12:00 94.1 82 26 95/58 (70) 96 12/12/18 11:45 104/51 12/12/18 11:30 91/55 12/12/18 11:15 100/57 12/12/18 11:15 81 26 91/55 (67) 98 12/12/18 11:00 80 26 103/55 (71) 98 12/12/18 11:00 103/55 12/12/18 10:45 83 26 75 12/12/18 10:45 104/59 12/12/18 10:45 80 26 104/59 (74) 97 12/12/18 10:30 79 26 92/68 (76) 100 12/12/18 10:30 92/68 Intake and Output 12/12/18 12/13/18 19:00 07:00 Intake Total 2182.800 ml 3287.3 ml Output Total 300 ml 400 ml Balance 1882.800 ml 2887.3 ml IV Total 2152.800 ml 3287.3 ml Other 30 ml Output Urine Total 0 ml 0 ml Gastric Drainage Total 300 ml 400 ml Laboratory Tests 12/12/18 11:39: Arterial Blood pH 7.190*L, Arterial Blood Partial Pressure CO2 22.7*L, Arterial Blood Partial Pressure O2 88.0, Arterial Blood HCO3 8.5*L, Arterial Blood Oxygen Saturation 95.0, Arterial Blood Base Excess -18.0*L, Harsh Test Positive 9/24/19 14:00: Thyroid Stimulating Hormone (TSH) 0.290L, Cortisol 6.7 12/12/18 16:55: Lactic Acid Level 10.20H 12/12/18 19:01: Lactic Acid Level 10.30H 12/12/18 19:06: Arterial Blood pH 7.142*L, Arterial Blood Partial Pressure CO2 30.8L, Arterial Blood Partial Pressure O2 < 45.3*L, Arterial Blood HCO3 10.3*L, Arterial Blood Oxygen Saturation 66.3*L, Arterial Blood Base Excess -17.3*L, Harsh Test Positive 12/12/18 19:39: Arterial Blood pH 7.226*L, Arterial Blood Partial Pressure CO2 21.4*L, Arterial Blood Partial Pressure O2 298.5H, Arterial Blood HCO3 8.7*L, Arterial Blood Oxygen Saturation 99.2, Arterial Blood Base Excess -17.2*L, Harsh Test Positive 12/13/18 03:15: White Blood Count 31.6*H, Red Blood Count 2.99L, Hemoglobin 8.0L, Hematocrit 25.1L, Mean Corpuscular Volume 84, Mean Corpuscular Hemoglobin 26.7L, Mean Corpuscular Hemoglobin Concent 31.8L, Red Cell Distribution Width 18.0H, Platelet Count 178, Mean Platelet Volume 7.1, Neutrophils (%) (Auto) , Lymphocytes (%) (Auto) , Monocytes (%) (Auto) , Eosinophils (%) (Auto) , Basophils (%) (Auto) , Differential Total Cells Counted 100, Neutrophils % ( Manual) 84H, Lymphocytes % (Manual) 3L, Monocytes % (Manual) 3, Eosinophils % ( Manual) 3, Basophils % (Manual) 0, Band Neutrophils 7, Nucleated Red Blood Cells 1, Platelet Estimate Adequate, Platelet Morphology Normal, Hypochromasia 1 +, Anisocytosis 1+, Target Cells 1+, Sodium Level 126L, Potassium Level 4.3, Chloride Level 92L, Carbon Dioxide Level 12L, Anion Gap 22H, Blood Urea Nitrogen 45H, Creatinine 1.9H, Estimat Glomerular Filtration Rate , Glucose Level 112H, Lactic Acid Level 10.30H, Calcium Level 7.5L, Total Bilirubin 2.5H, Direct Bilirubin 1.8H, Aspartate Amino Transf (AST/SGOT) 1869H, Alanine Aminotransferase (ALT/SGPT) 600H, Alkaline Phosphatase 371H, Total Protein 5.0L , Albumin 1.6L, Globulin 3.4, Albumin/Globulin Ratio 0.5L 12/13/18 05:40: Lactic Acid Level 10.40H 12/13/18 07:45: Arterial Blood pH 7.228*L, Arterial Blood Partial Pressure CO2 22.9*L, Arterial Blood Partial Pressure O2 141.7H, Arterial Blood HCO3 9.3*L, Arterial Blood Oxygen Saturation 98.0, Arterial Blood Base Excess -16.3*L, Harsh Test Positive Height (Feet): 5 Height (Inches): 8.00 Weight (Pounds): 232 Objective General Appearance: no apparent distress, other - unresponsive on vent EENT: PERRL/EOMI, other -, lower lip severely swollen, 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 Dec 13, 2018 10:23
[2018-12-13] MEDS: Colistin for inhalation INH SCH ×2 (11:16→23:58)
--- NOTE | 2018-12-13 11:29 | Nephrology Progress Note ---
Assessment/Plan Problem List: (1) Fever (2) Diabetes (3) Seizure disorder (4) HTN (hypertension) (5) Tracheostomy dependence (6) Anoxic brain damage (7) Hyponatremia Plan #Acute kidney injury likely ATN due to shock - continue with pressors to maintain MAP over 65 - switch to NS at 75cc/hr - monitor ABG - monitor UOP - strict I&Os #hyponatremia- worsening- 130-> 126-- - check urine osm and urine sodium - NS at 75cc /hr - change to NS flushes for meds - Abx in NS - monitor BMP #H/o HTN- now hypotensive - hold antihypertensive - pressors as above Subjective Subjective on VENT remains in ICU on 3 pressors Cr 1.9 Objective Objective Last 24 Hour Vital Signs Date Time Temp Pulse Resp B/P (MAP) Pulse Ox O2 Delivery O2 Flow Rate FiO2 12/13/18 11:14 103 26 100 Mechanical Ventilator 50 103 26 50 12/13/18 11:00 101 23 122/53 (76) 100 12/13/18 10:30 99 26 119/53 (75) 100 12/13/18 10:00 99 26 118/43 (68) 100 12/13/18 09:58 99 26 Mechanical Ventilator 50 12/13/18 09:30 98 26 120/43 (68) 100 12/13/18 09:00 98 26 119/45 (69) 99 12/13/18 08:30 98 26 119/45 (69) 99 12/13/18 08:08 50 12/13/18 08:00 98 12/13/18 08:00 100.8 97 26 120/40 (66) 100 12/13/18 08:00 70 12/13/18 07:00 96 26 119/51 (73) 100 12/13/18 06:50 96 26 100 Mechanical Ventilator 70 96 26 70 12/13/18 06:45 96 26 114/47 (69) 100 12/13/18 06:30 96 26 123/50 (74) 100 12/13/18 06:15 95 26 122/52 (75) 100 12/13/18 06:07 96 120/52 12/13/18 06:00 95 26 123/50 (74) 100 12/13/18 05:45 95 26 120/52 (74) 100 12/13/18 05:30 95 26 121/49 (73) 100 12/13/18 05:23 95 26 70 12/13/18 05:15 95 26 118/53 (74) 100 12/13/18 05:00 95 26 119/53 (75) 100 12/13/18 04:45 95 26 117/53 (74) 100 12/13/18 04:30 95 26 114/53 (73) 100 12/13/18 04:15 95 26 111/54 (73) 100 12/13/18 04:00 99.1 95 26 112/48 (69) 100 12/13/18 04:00 Mechanical Ventilator 12/13/18 04:00 70 12/13/18 03:45 95 26 111/55 (73) 100 12/13/18 03:36 93 12/13/18 03:30 95 26 110/52 (71) 100 12/13/18 03:19 96 26 70 12/13/18 03:15 96 26 113/67 (82) 100 12/13/18 03:00 96 26 125/63 (83) 100 12/13/18 02:30 96 26 122/64 (83) 100 12/13/18 02:15 97 26 124/66 (85) 100 12/13/18 02:00 97 26 120/66 (84) 100 12/13/18 01:45 97 26 123/60 (81) 100 12/13/18 01:30 97 26 124/62 (82) 100 12/13/18 01:25 97 26 100 Mechanical Ventilator 70 12/13/18 01:15 97 26 123/69 (87) 100 12/13/18 01:15 97 26 100 Mechanical Ventilator 70 97 26 70 12/13/18 00:45 97 26 120/58 (78) 100 12/13/18 00:30 98 26 121/63 (82) 100 12/13/18 00:15 98 26 121/61 (81) 100 12/13/18 00:00 70 12/13/18 00:00 Mechanical Ventilator 12/13/18 00:00 98.7 97 26 125/64 (84) 100 12/13/18 00:00 97 12/12/18 23:47 107/52 12/12/18 23:45 99 26 106/63 (77) 100 12/12/18 23:30 100 26 70 12/12/18 23:30 99 26 109/64 (79) 100 12/12/18 23:00 102 26 122/65 (84) 100 12/12/18 22:45 106 26 140/68 (92) 100 12/12/18 22:30 106 26 141/74 (96) 100 12/12/18 22:15 106 26 142/56 (84) 100 12/12/18 22:00 80 12/12/18 22:00 105 26 133/65 (87) 100 12/12/18 21:45 104 26 130/64 (86) 100 12/12/18 21:40 101 112/68 12/12/18 21:30 102 26 120/71 (87) 100 12/12/18 21:15 99 26 112/68 (83) 100 12/12/18 21:09 97 26 80 12/12/18 21:00 97 26 110/58 (75) 100 12/12/18 20:45 95 26 101/54 (70) 100 12/12/18 20:30 95 26 97/51 (66) 100 12/12/18 20:15 94 26 102/54 (70) 100 12/12/18 20:09 92 26 100 Mechanical Ventilator 100 12/12/18 20:00 Mechanical Ventilator 12/12/18 20:00 90 12/12/18 20:00 92 26 100/43 (62) 100 12/12/18 19:59 93 26 100 Mechanical Ventilator 100 93 26 100 12/12/18 19:45 93 26 101/48 (65) 100 12/12/18 19:30 93 26 101/43 (62) 100 12/12/18 19:24 93 12/12/18 19:15 93 26 108/46 (66) 100 12/12/18 19:00 107/63 12/12/18 19:00 98.5 93 26 111/61 (78) 100 12/12/18 18:45 92 26 101/52 (68) 100 12/12/18 18:45 85/49 12/12/18 18:30 91 26 85/49 (61) 100 12/12/18 18:30 69/35 12/12/18 18:15 91 26 77/41 (53) 100 12/12/18 18:15 84/39 12/12/18 18:00 91 26 84/39 (54) 100 12/12/18 18:00 104/48 12/12/18 17:45 104/46 12/12/18 17:45 91 26 104/46 (65) 100 12/12/18 17:30 114/52 12/12/18 17:30 92 26 114/52 (72) 100 12/12/18 17:15 91 26 114/41 (65) 100 12/12/18 17:15 111/41 12/12/18 17:00 108/54 12/12/18 17:00 92 26 108/54 (72) 100 12/12/18 16:50 91 20 90 12/12/18 16:45 91 26 110/63 (79) 100 12/12/18 16:45 110/63 12/12/18 16:30 117/56 12/12/18 16:30 90 26 117/56 (76) 100 12/12/18 16:15 126/61 12/12/18 16:15 88 26 126/61 (82) 100 12/12/18 16:00 97.5 87 26 131/72 (91) 100 12/12/18 16:00 75 12/12/18 16:00 90 12/12/18 16:00 131/72 12/12/18 16:00 Mechanical Ventilator 12/12/18 15:45 87 26 129/72 (91) 100 12/12/18 15:45 129/72 12/12/18 15:30 86 26 118/61 (80) 100 12/12/18 15:30 118/61 12/12/18 15:15 86 26 113/61 (78) 100 12/12/18 15:15 113/61 12/12/18 15:00 85 26 107/59 (75) 100 12/12/18 15:00 107/59 12/12/18 14:45 75/42 12/12/18 14:30 108/55 12/12/18 14:30 85 26 108/55 (72) 98 12/12/18 14:30 85 26 75 12/12/18 14:15 115/62 12/12/18 14:00 125/68 12/12/18 14:00 85 100/54 12/12/18 14:00 83 26 88/54 (65) 100 12/12/18 13:45 120/75 12/12/18 13:36 88/54 12/12/18 13:30 83 26 92/56 (68) 100 12/12/18 13:30 88/54 12/12/18 13:26 82/93 12/12/18 13:15 81 26 Mechanical Ventilator 75 12/12/18 13:15 82/53 12/12/18 13:00 83 26 95/60 (72) 96 12/12/18 13:00 75 12/12/18 13:00 92/56 12/12/18 12:45 104/63 12/12/18 12:30 95/60 12/12/18 12:30 83 26 95/60 (72) 96 12/12/18 12:15 89/52 12/12/18 12:00 82 12/12/18 12:00 Mechanical Ventilator 12/12/18 12:00 95/58 12/12/18 12:00 94.1 82 26 95/58 (70) 96 12/12/18 11:45 104/51 12/12/18 11:30 91/55 Intake and Output 12/12/18 12/13/18 19:00 07:00 Intake Total 2182.800 ml 3287.3 ml Output Total 300 ml 400 ml Balance 1882.800 ml 2887.3 ml IV Total 2152.800 ml 3287.3 ml Other 30 ml Output Urine Total 0 ml 0 ml Gastric Drainage Total 300 ml 400 ml Laboratory Tests 12/12/18 11:39: Arterial Blood pH 7.190*L, Arterial Blood Partial Pressure CO2 22.7*L, Arterial Blood Partial Pressure O2 88.0, Arterial Blood HCO3 8.5*L, Arterial Blood Oxygen Saturation 95.0, Arterial Blood Base Excess -18.0*L, Harsh Test Positive 12/12/18 14:00: Thyroid Stimulating Hormone (TSH) 0.290L, Cortisol 6.7 12/12/18 16:55: Lactic Acid Level 10.20H 12/12/18 19:01: Lactic Acid Level 10.30H 12/12/18 19:06: Arterial Blood pH 7.142*L, Arterial Blood Partial Pressure CO2 30.8L, Arterial Blood Partial Pressure O2 < 45.3*L, Arterial Blood HCO3 10.3*L, Arterial Blood Oxygen Saturation 66.3*L, Arterial Blood Base Excess -17.3*L, Harsh Test Positive 12/12/18 19:39: Arterial Blood pH 7.226*L, Arterial Blood Partial Pressure CO2 21.4*L, Arterial Blood Partial Pressure O2 298.5H, Arterial Blood HCO3 8.7*L, Arterial Blood Oxygen Saturation 99.2, Arterial Blood Base Excess -17.2*L, Harsh Test Positive 12/13/18 03:15: White Blood Count 31.6*H, Red Blood Count 2.99L, Hemoglobin 8.0L, Hematocrit 25.1L, Mean Corpuscular Volume 84, Mean Corpuscular Hemoglobin 26.7L, Mean Corpuscular Hemoglobin Concent 31.8L, Red Cell Distribution Width 18.0H, Platelet Count 178, Mean Platelet Volume 7.1, Neutrophils (%) (Auto) , Lymphocytes (%) (Auto) , Monocytes (%) (Auto) , Eosinophils (%) (Auto) , Basophils (%) (Auto) , Differential Total Cells Counted 100, Neutrophils % ( Manual) 84H, Lymphocytes % (Manual) 3L, Monocytes % (Manual) 3, Eosinophils % ( Manual) 3, Basophils % (Manual) 0, Band Neutrophils 7, Nucleated Red Blood Cells 1, Platelet Estimate Adequate, Platelet Morphology Normal, Hypochromasia 1 +, Anisocytosis 1+, Target Cells 1+, Sodium Level 126L, Potassium Level 4.3, Chloride Level 92L, Carbon Dioxide Level 12L, Anion Gap 22H, Blood Urea Nitrogen 45H, Creatinine 1.9H, Estimat Glomerular Filtration Rate , Glucose Level 112H, Lactic Acid Level 10.30H, Calcium Level 7.5L, Total Bilirubin 2.5H, Direct Bilirubin 1.8H, Aspartate Amino Transf (AST/SGOT) 1869H, Alanine Aminotransferase (ALT/SGPT) 600H, Alkaline Phosphatase 371H, Total Protein 5.0L , Albumin 1.6L, Globulin 3.4, Albumin/Globulin Ratio 0.5L 12/13/18 05:40: Lactic Acid Level 10.40H 12/13/18 07:45: Arterial Blood pH 7.228*L, Arterial Blood Partial Pressure CO2 22.9*L, Arterial Blood Partial Pressure O2 141.7H, Arterial Blood HCO3 9.3*L, Arterial Blood Oxygen Saturation 98.0, Arterial Blood Base Excess -16.3*L, Harsh Test Positive Height (Feet): 5 Height (Inches): 8.00 Weight (Pounds): 232 Objective General Appearance: no apparent distress, obtunded , + trach Neck: non-tender, normal alignment, supple, normal inspection, no JVD Rhythm: NSR Cardiovascular: normal peripheral pulses, tachycardia Respiratory/Chest: biltateral faint wheezes Abdomen: normal bowel sounds, non tender, soft, + PEG Diana Sommers M.D. Dec 13, 2018 11:29
--- NOTE | 2018-12-13 11:32 | Infectious Diseases Prog Note ---
Assessment/Plan Assessment/Plan ASSESSMENT AND PLAN: 1. providencia/acinetobacter pna, proteus uti, sepsis, leukocytosis, fevers, hx wounds per surgery management, + picc line, blood cultures remain negative, sputum culture with gram neg so far s/p code, sepsis with shock, pressors, possible aspiration event and worsening pna on chest x-ray, ARF likely secondary to sepsis/shock, likely shocked liver/elevated lft's - inhaled colistin, cefepime, zyvox, flagyl, levofloxacin, minocycline - avoid nephrotoxic meds - f/u on cultures - f/u on labs and chest x-ray - d/w Dr. Dejesus - poor prognosis - d/w family at the bedside 2. Trach-vent respiratory failure, macroglossia 3. Dysphagia, G-tube. 4. Anemia. 5. Diabetes. 6. Hypertension. 7. Large tongue. 8. Anoxic brain injury. 9. Weakness. 10. Poorly responsive. 11. History of seizures. 12. History of colon adenocarcinoma. 13. Skin care protocol. 14. Allergy to crawfish. 15. Social history negative. 16. Family history noncontributory. 17. MAR was noted. 18. Case was discussed with RN. 19. Continue treatment per primary consultants. 20. Orders were ordered, entered, and noted. 21. Continue wound care protocol. and surgery f/u and recs 22. Continue blood sugar and blood pressure treatment per primary consultants for diabetes and hypertension. 23. vre colonization and isolation Subjective Constitutional: Reports: fever, other - tra HEENT: Reports: congestion Respiratory: Reports: shortness of breath Cardiovascular: Reports: other - + pressors Gastrointestinal/Abdominal: Denies: nausea, vomiting, diarrhea Genitourinary: Reports: other - + nava Neurologic: Reports: weakness Allergies: Coded Allergies: Crayfish (Unverified Allergy, Unknown, 11/11/18) Uncoded Allergies: Crawfish (Allergy, Unknown, 11/09/18) Objective Vital Signs Last 24 Hour Vital Signs Date Time Temp Pulse Resp B/P (MAP) Pulse Ox O2 Delivery O2 Flow Rate FiO2 12/13/18 11:14 103 26 100 Mechanical Ventilator 50 103 26 50 12/13/18 11:00 101 23 122/53 (76) 100 12/13/18 10:30 99 26 119/53 (75) 100 12/13/18 10:00 99 26 118/43 (68) 100 12/13/18 09:58 99 26 Mechanical Ventilator 50 12/13/18 09:30 98 26 120/43 (68) 100 12/13/18 09:00 98 26 119/45 (69) 99 12/13/18 08:30 98 26 119/45 (69) 99 12/13/18 08:08 50 12/13/18 08:00 98 12/13/18 08:00 100.8 97 26 120/40 (66) 100 12/13/18 08:00 70 12/13/18 07:00 96 26 119/51 (73) 100 12/13/18 06:50 96 26 100 Mechanical Ventilator 70 96 26 70 12/13/18 06:45 96 26 114/47 (69) 100 12/13/18 06:30 96 26 123/50 (74) 100 12/13/18 06:15 95 26 122/52 (75) 100 12/13/18 06:07 96 120/52 12/13/18 06:00 95 26 123/50 (74) 100 12/13/18 05:45 95 26 120/52 (74) 100 12/13/18 05:30 95 26 121/49 (73) 100 12/13/18 05:23 95 26 70 12/13/18 05:15 95 26 118/53 (74) 100 12/13/18 05:00 95 26 119/53 (75) 100 12/13/18 04:45 95 26 117/53 (74) 100 12/13/18 04:30 95 26 114/53 (73) 100 12/13/18 04:15 95 26 111/54 (73) 100 12/13/18 04:00 99.1 95 26 112/48 (69) 100 12/13/18 04:00 Mechanical Ventilator 12/13/18 04:00 70 12/13/18 03:45 95 26 111/55 (73) 100 12/13/18 03:36 93 12/13/18 03:30 95 26 110/52 (71) 100 12/13/18 03:19 96 26 70 12/13/18 03:15 96 26 113/67 (82) 100 12/13/18 03:00 96 26 125/63 (83) 100 12/13/18 02:30 96 26 122/64 (83) 100 12/13/18 02:15 97 26 124/66 (85) 100 12/13/18 02:00 97 26 120/66 (84) 100 12/13/18 01:45 97 26 123/60 (81) 100 12/13/18 01:30 97 26 124/62 (82) 100 12/13/18 01:25 97 26 100 Mechanical Ventilator 70 12/13/18 01:15 97 26 123/69 (87) 100 12/13/18 01:15 97 26 100 Mechanical Ventilator 70 97 26 70 12/13/18 00:45 97 26 120/58 (78) 100 12/13/18 00:30 98 26 121/63 (82) 100 12/13/18 00:15 98 26 121/61 (81) 100 12/13/18 00:00 70 12/13/18 00:00 Mechanical Ventilator 12/13/18 00:00 98.7 97 26 125/64 (84) 100 12/13/18 00:00 97 12/12/18 23:47 107/52 12/12/18 23:45 99 26 106/63 (77) 100 12/12/18 23:30 100 26 70 12/12/18 23:30 99 26 109/64 (79) 100 12/12/18 23:00 102 26 122/65 (84) 100 12/12/18 22:45 106 26 140/68 (92) 100 12/12/18 22:30 106 26 141/74 (96) 100 12/12/18 22:15 106 26 142/56 (84) 100 12/12/18 22:00 80 12/12/18 22:00 105 26 133/65 (87) 100 12/12/18 21:45 104 26 130/64 (86) 100 12/12/18 21:40 101 112/68 12/12/18 21:30 102 26 120/71 (87) 100 12/12/18 21:15 99 26 112/68 (83) 100 12/12/18 21:09 97 26 80 12/12/18 21:00 97 26 110/58 (75) 100 12/12/18 20:45 95 26 101/54 (70) 100 9/24/19 20:30 95 26 97/51 (66) 100 12/12/18 20:15 94 26 102/54 (70) 100 12/12/18 20:09 92 26 100 Mechanical Ventilator 100 12/12/18 20:00 Mechanical Ventilator 12/12/18 20:00 90 12/12/18 20:00 92 26 100/43 (62) 100 12/12/18 19:59 93 26 100 Mechanical Ventilator 100 93 26 100 12/12/18 19:45 93 26 101/48 (65) 100 12/12/18 19:30 93 26 101/43 (62) 100 12/12/18 19:24 93 12/12/18 19:15 93 26 108/46 (66) 100 12/12/18 19:00 107/63 12/12/18 19:00 98.5 93 26 111/61 (78) 100 12/12/18 18:45 92 26 101/52 (68) 100 12/12/18 18:45 85/49 12/12/18 18:30 91 26 85/49 (61) 100 12/12/18 18:30 69/35 12/12/18 18:15 91 26 77/41 (53) 100 12/12/18 18:15 84/39 12/12/18 18:00 91 26 84/39 (54) 100 12/12/18 18:00 104/48 12/12/18 17:45 104/46 12/12/18 17:45 91 26 104/46 (65) 100 12/12/18 17:30 114/52 12/12/18 17:30 92 26 114/52 (72) 100 12/12/18 17:15 91 26 114/41 (65) 100 12/12/18 17:15 111/41 12/12/18 17:00 108/54 12/12/18 17:00 92 26 108/54 (72) 100 12/12/18 16:50 91 20 90 12/12/18 16:45 91 26 110/63 (79) 100 12/12/18 16:45 110/63 12/12/18 16:30 117/56 12/12/18 16:30 90 26 117/56 (76) 100 12/12/18 16:15 126/61 12/12/18 16:15 88 26 126/61 (82) 100 12/12/18 16:00 97.5 87 26 131/72 (91) 100 12/12/18 16:00 75 12/12/18 16:00 90 12/12/18 16:00 131/72 12/12/18 16:00 Mechanical Ventilator 12/12/18 15:45 87 26 129/72 (91) 100 12/12/18 15:45 129/72 12/12/18 15:30 86 26 118/61 (80) 100 12/12/18 15:30 118/61 12/12/18 15:15 86 26 113/61 (78) 100 12/12/18 15:15 113/61 12/12/18 15:00 85 26 107/59 (75) 100 12/12/18 15:00 107/59 12/12/18 14:45 75/42 12/12/18 14:30 108/55 12/12/18 14:30 85 26 108/55 (72) 98 12/12/18 14:30 85 26 75 12/12/18 14:15 115/62 12/12/18 14:00 125/68 12/12/18 14:00 85 100/54 12/12/18 14:00 83 26 88/54 (65) 100 12/12/18 13:45 120/75 12/12/18 13:36 88/54 12/12/18 13:30 83 26 92/56 (68) 100 12/12/18 13:30 88/54 12/12/18 13:26 82/93 12/12/18 13:15 81 26 Mechanical Ventilator 75 12/12/18 13:15 82/53 12/12/18 13:00 83 26 95/60 (72) 96 12/12/18 13:00 75 12/12/18 13:00 92/56 12/12/18 12:45 104/63 12/12/18 12:30 95/60 12/12/18 12:30 83 26 95/60 (72) 96 12/12/18 12:15 89/52 12/12/18 12:00 82 12/12/18 12:00 Mechanical Ventilator 12/12/18 12:00 95/58 12/12/18 12:00 94.1 82 26 95/58 (70) 96 12/12/18 11:45 104/51 12/12/18 11:30 91/55 Height (Feet): 5 Height (Inches): 8.00 Weight (Pounds): 232 General Appearance: other - + trach, vent and pressors HEENT: normocephalic, atraumatic, anicteric, no JVD, status post trach Respiratory/Chest: crackles/rales, rhonchi - bilaterally Cardiovascular: normal rate, regular rhythm, tachycardia Abdomen: soft, non tender, no organomegaly Genitourinary: other - + nava Objective 11/11/18 - chest x-ray - IMPRESSION: 1. Hypoventilatory lungs. Elevated right hemidiaphragm. Slightly improved vascular congestion. Similar bibasilar lung atelectasis and airspace disease. 2. Query right pleural effusion. 2-D echo - no vegetations mentioned, report noted sacral x-ray - no osteo mentioned, report noted 11/14/18 - Technique: One view of the chest Comparison: November 13, 2018 post PICC radiograph Findings: Bilateral interstitial and alveolar edema versus infiltrates appear slightly worse. There is increasing obscuration of left hemidiaphragm, may reflect increasing pleural fluid as well. The heart remains enlarged. Previously demonstrated left arm PICC has been removed. Stable right arm PICC. Impression: Slightly worsening bilateral interstitial and airspace infiltrates versus edema, over one day 11/16/18 - chest x-ray Procedure: XRAY Chest 1v Indication: Dyspnea Technique: One view of the chest Comparison: November 14, 2018 Findings: Bilateral interstitial edema persists. Tracheostomy, right arm PICC remain. The heart is enlarged. Impression: Bilateral interstitial edema, unchanged over [address] abdomen and pelvis: Impression: No definite acute process Diverticulosis. No evidence of diverticulitis Extensive edema of the subcutaneous fat. 2 cm focal fluid collection/edema seen within the incision Moderate amount retained dense stool. Correlate with any clinical history of constipation Hiatal hernia. Gastrostomy Left renal parapelvic cysts Apparent prior hysterectomy Chest x-ray - 11/23/18 - Technique: One view of the chest Comparison: 11/20/2018 Findings: Less optimal inspiration currently, with resultant crowding of the bronchovascular markings. Interstitial congestion is probably not significantly changed, allowing for differences in exposure technique. Tracheostomy remains. Right arm PICC remains. Impression: Unchanged, over 3 days, findings as above. Chest x-ray - 11/26/18 - IMPRESSION: 1. Rotated film. Increased hazy opacity at the left lung and left retrocardiac opacity. 2. Decreased left pleural effusion. 3. Elevated right hemidiaphragm with probable pleural effusion and consolidation, similar. Chest x-ray - 11/30/18 - Findings: Pulmonary edema again demonstrated. PICC line is stable as well as tracheostomy. Heart is enlarged. Basilar atelectasis suspected. The diaphragm is poorly seen. Underlying parenchymal infiltrate or other disease and/or pleural effusion may be present. IMPRESSION: Pulmonary edema Chest x-ray - 12/06/18 - IMPRESSION: Significant worsening of aeration with increased airspace opacities in the right , involving nearly the entire right lung. Although findings may be related to asymmetric pulmonary edema the possibility of pneumonia has to be considered. Clinical correlation and follow-up recommended. Likely layering right-sided pleural effusion. Tracheostomy tube and PICC line remain in place. Chest x-ray - 12/09/18 - FINDINGS: Lungs: Reduced lung volumes with bilateral pulmonary opacities. Retrocardiac atelectasis consolidation. Pleural space: Right pleural effusion. No pneumothorax. Heart: cardiomegaly. Mediastinum: Unremarkable. Bones joints: No acute fracture. Tubes, lines and devices: Right PICC line tip is difficult to delineate, it may cross midline. Tracheostomy. IMPRESSION: 1. Reduced lung volumes with bilateral pulmonary opacities. Could be edema and or pneumonia. There is a broader differential. 2. Right pleural effusion. 3. Right PICC line tip is difficult to delineate, it may cross midline rather than extend into the SVC. Chest x-ray - 12/11/18 - Comparison: 12/09/2018 A single view chest radiograph was obtained. Findings: There is evidence of probable new infiltrate in the right upper lobe and right perihilar region. Tracheostomy again demonstrated. In addition there are mixed interstitial alveolar densities bilaterally. Cardiomegaly is present. A right PICC line is present in good position with the tip projected over the innominate vein. IMPRESSION: Worsening infiltrates likely new within the right upper lobe and perihilar region. Other superimposed infiltrates versus pulmonary edema again noted. Microbiology Date/Time Source Procedure Growth Status 12/11/18 16:40 Blood Blood Culture - Preliminary NO GROWTH AFTER 24 HOURS Resulted 12/11/18 14:30 Blood Blood Culture - Preliminary NO GROWTH AFTER 24 HOURS Resulted 12/11/18 13:30 Sputum Induced Gram Stain - Final Resulted 12/11/18 13:30 Sputum Culture - Preliminary Gram Negative Bacillus 1 Gram Negative Bacillus 2 Resulted Laboratory Tests Test 12/12/18 11:39 12/12/18 14:00 12/12/18 16:55 12/12/18 19:01 Arterial Blood pH 7.190 (7.350-7.450) Arterial Blood Partial Pressure CO2 22.7 mmHg (35.0-45.0) *L Arterial Blood Partial Pressure O2 88.0 mmHg (75.0-100.0) Arterial Blood HCO3 8.5 mmol/L (22.0-26.0) *L Arterial Blood Oxygen Saturation 95.0 % (95-100) Arterial Blood Base Excess -18.0 (-2-2) *L Harsh Test Positive Thyroid Stimulating Hormone (TSH) 0.290 uiU/mL (0.358-3.740) Cortisol 6.7 UG/DL Lactic Acid Level 10.20 mmol/L (0.4-2.0) H 10.30 mmol/L (0.66-2.22) H Test 12/12/18 19:06 12/12/18 19:39 12/13/18 03:15 12/13/18 05:40 Arterial Blood pH 7.142 (7.350-7.450) 7.226 (7.350-7.450) Arterial Blood Partial Pressure CO2 30.8 mmHg (35.0-45.0) L 21.4 mmHg (35.0-45.0) *L Arterial Blood Partial Pressure O2 < 45.3 mmHg (75.0-100.0) 298.5 mmHg (75.0-100.0) H Arterial Blood HCO3 10.3 mmol/L (22.0-26.0) *L 8.7 mmol/L (22.0-26.0) *L Arterial Blood Oxygen Saturation 66.3 % (95-100) *L 99.2 % (95-100) Arterial Blood Base Excess -17.3 (-2-2) *L -17.2 (-2-2) *L Harsh Test Positive Positive White Blood Count 31.6 K/UL (4.8-10.8) *H Red Blood Count 2.99 M/UL (4.20-5.40) L Hemoglobin 8.0 G/DL (12.0-16.0) L Hematocrit 25.1 % (37.0-47.0) L Mean Corpuscular Volume 84 FL (80-99) Mean Corpuscular Hemoglobin 26.7 PG (27.0-31.0) L Mean Corpuscular Hemoglobin Concent 31.8 G/DL (32.0-36.0) L Red Cell Distribution Width 18.0 % (11.6-14.8) H Platelet Count 178 K/UL (150-450) Mean Platelet Volume 7.1 FL (6.5-10.1) Neutrophils (%) (Auto) % (45.0-75.0) Lymphocytes (%) (Auto) % (20.0-45.0) Monocytes (%) (Auto) % (1.0-10.0) Eosinophils (%) (Auto) % (0.0-3.0) Basophils (%) (Auto) % (0.0-2.0) Differential Total Cells Counted 100 Neutrophils % (Manual) 84 % (45-75) H Lymphocytes % (Manual) 3 % (20-45) L Monocytes % (Manual) 3 % (1-10) Eosinophils % (Manual) 3 % (0-3) Basophils % (Manual) 0 % (0-2) Band Neutrophils 7 % (0-8) Nucleated Red Blood Cells 1 /100 WBC Platelet Estimate Adequate Platelet Morphology Normal Hypochromasia 1+ Anisocytosis 1+ Target Cells 1+ Sodium Level 126 MMOL/L (136-145) L Potassium Level 4.3 MMOL/L (3.5-5.1) Chloride Level 92 MMOL/L (98-107) L Carbon Dioxide Level 12 MMOL/L (21-32) L Anion Gap 22 mmol/L (5-15) H Blood Urea Nitrogen 45 mg/dL (7-18) H Creatinine 1.9 MG/DL (0.55-1.30) H Estimat Glomerular Filtration Rate mL/min (>60) Glucose Level 112 MG/DL (74-106) H Lactic Acid Level 10.30 mmol/L (0.4-2.0) H 10.40 mmol/L (0.66-2.22) H Calcium Level 7.5 MG/DL (8.5-10.1) L Total Bilirubin 2.5 MG/DL (0.2-1.0) H Direct Bilirubin 1.8 MG/DL (0.0-0.3) H Aspartate Amino Transf (AST/SGOT) 1869 U/L (15-37) H Alanine Aminotransferase (ALT/SGPT) 600 U/L (12-78) H Alkaline Phosphatase 371 U/L (46-116) H Total Protein 5.0 G/DL (6.4-8.2) L Albumin 1.6 G/DL (3.4-5.0) L Globulin 3.4 g/dL Albumin/Globulin Ratio 0.5 (1.0-2.7) L Test 12/13/18 07:45 Arterial Blood pH 7.228 (7.350-7.450) Arterial Blood Partial Pressure CO2 22.9 mmHg (35.0-45.0) *L Arterial Blood Partial Pressure O2 141.7 mmHg (75.0-100.0) H Arterial Blood HCO3 9.3 mmol/L (22.0-26.0) *L Arterial Blood Oxygen Saturation 98.0 % (95-100) Arterial Blood Base Excess -16.3 (-2-2) *L Ahrsh Test Positive Current Medications Medications (Trade) Dose Ordered Sig/Lupe Route PRN Reason Start Time Stop Time Status Last Admin Dose Admin Acetaminophen (Tylenol) 650 mg Q4H PRN GT Mild Pain/Temp > 100.5 12/11/18 05:12 01/07/19 05:11 12/13/18 09:38 Albuterol/ Ipratropium (Albuterol/ Ipratropium) 3 ml Q6HRT HHN 12/11/18 07:00 12/13/18 18:59 12/13/18 06:59 Bisacodyl (Dulcolax) 10 mg DAILY PRN RECTAL Constipation 12/11/18 05:12 01/07/19 05:11 Cefepime HCl 2 gm/ Dextrose 110 ml @ 220 mls/hr Q24H IV 12/11/18 15:00 12/18/18 14:59 12/12/18 17:24 Chlorhexidine Gluconate (Corazon-Hex 2%) 1 applic DAILY@2000 TOPIC 12/11/18 20:00 01/07/19 19:59 12/12/18 20:31 Colistimethate Sodium (Colistin *inhalation use only*) 75 mg Q12HR@10,22 INH 12/12/18 22:00 12/19/18 21:59 12/13/18 11:16 Dextrose (Dextrose 50%) 25 ml Q30M PRN IV Hypoglycemia 12/11/18 05:15 01/07/19 04:44 Dextrose (Dextrose 50%) 50 ml Q30M PRN IV Hypoglycemia 12/11/18 05:15 01/07/19 04:44 Enoxaparin Sodium (Lovenox) 40 mg DAILY SUBQ 12/11/18 09:00 01/07/19 08:59 12/13/18 09:45 Famotidine (Pepcid) 20 mg EVERY 12 HOURS GT 12/11/18 09:00 01/07/19 20:59 12/13/18 09:39 Hydrocortisone (Solu-CORTEF) 100 mg EVERY 8 HOURS IV 12/12/18 14:00 01/11/19 13:59 12/13/18 06:07 Insulin Aspart (NovoLOG) Q6HR SUBQ 12/11/18 06:00 01/07/19 05:59 12/13/18 01:00 Insulin Detemir (Levemir) 4 units EVERY 12 HOURS SUBQ 12/11/18 09:00 01/07/19 20:59 12/13/18 09:46 Labetalol HCl (Normodyne) 200 mg Q8HR GT 12/11/18 06:00 01/07/19 05:59 12/13/18 06:07 Lactulose (Cephulac) 10 gm THREE TIMES A DAY GT 12/11/18 09:00 01/07/19 17:59 12/13/18 09:37 Levetiracetam (Keppra) 1,500 mg Q12HR GT 12/11/18 09:00 01/07/19 08:59 12/13/18 09:37 Levofloxacin 150 ml @ 150 mls/hr Q48H IVPB 12/12/18 18:00 12/19/18 17:59 12/12/18 18:50 Linezolid 300 ml @ 300 mls/hr Q12HR IVPB 12/12/18 21:00 12/19/18 20:59 12/13/18 09:40 Magnesium Hydroxide (Mom) 30 ml DAILY PRN GT Constipation 12/11/18 05:15 01/07/19 05:14 Metoclopramide HCl (Reglan) 5 mg Q8H PRN IVP Nausea & Vomiting 12/11/18 05:15 01/09/19 05:14 Metronidazole 100 ml @ 100 mls/hr Q8HR IVPB 12/11/18 14:00 12/18/18 13:59 12/13/18 06:07 Minocycline HCl (Minocin) 100 mg Q12HR ORAL 12/12/18 21:00 12/19/18 20:59 12/13/18 09:38 Norepinephrine Bitartrate 8 mg/ Dextrose 500 ml @ 0 mls/hr Q24H IV 12/11/18 09:00 01/10/19 08:59 12/12/18 23:47 Ondansetron HCl (Zofran) 4 mg Q6H PRN GT Nausea & Vomiting 12/11/18 05:16 01/07/19 05:15 Phenobarbital (PHENobarbital) 60 mg BID GT 12/11/18 18:00 01/07/19 08:59 12/13/18 09:39 Phenylephrine HCl 100 mg/Dextrose 500 ml @ 0 mls/hr Q24H IV 12/11/18 09:00 01/10/19 08:59 12/12/18 09:52 Phenytoin (Dilantin) 100 mg Q8HR GT 12/11/18 06:00 01/07/19 05:59 12/13/18 06:06 Polyethylene Glycol (Miralax) 17 gm DAILYPRN PRN GT Constipation 12/11/18 05:17 01/07/19 05:16 Sennosides (Senokot) 8.6 mg EVERY 12 HOURS GT 12/11/18 09:00 01/07/19 20:59 12/13/18 09:38 Sodium Bicarbonate 50 ml/ Sodium Chloride 1,050 ml @ 100 mls/hr [id number] IV 12/12/18 14:00 01/11/19 13:59 12/13/18 11:12 Vasopressin 100 units/Sodium Chloride 100 ml @ 0 mls/hr Q24H IV 12/11/18 14:45 01/10/19 14:44 12/12/18 16:11 Dasha Crews MD Dec 13, 2018 11:32
--- NOTE | 2018-12-13 11:33 | NUR ---
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 100.8 HR 96 RR 26 B/P 119/51 AC 26 TV 600 FIO2 50% PEEP 5 IS: LEVOPHED GTT PHENYLEPHRINE GTT ZYVOX IV CEFEPIME IV SOLU MEDROL IV FLAGYL IV LEVAQUIN IV ICU STATUS
--- NOTE | 2018-12-13 11:44 | Pulmonolgy Critical Care Note ---
Critical Care - Asmt/Plan Problems: (1) Sepsis (2) Tracheostomy dependence (3) Ventilator dependence (4) MRSA (methicillin resistant staphylococcus aureus) pneumonia (5) UTI (urinary tract infection) (6) Cardiac arrest (7) Anoxic brain damage (8) Tongue abnormality (9) Seizure disorder (10) Diabetes (11) HTN (hypertension) (12) Fever (13) Decubitus skin ulcer (14) Protein calorie malnutrition (15) DAMASO (acute kidney injury) (16) High anion gap metabolic acidosis (17) Lactic acid acidosis Respiratory: adjust tidal volume, monitor respiratory rate, adjust FIO2, ABG, other - HHNs, mobilize, pulm hygiene Cardiac: continue pressors - titrate to keep MAP > 60, continue to monitor HR/ BP Renal: keep IV fluid - per renal, check electrolytes Infectious Disease: check cultures, continue antibiotics - per ID Gastrointestinal: continue feedings/current rate Endocrine: monitor blood sugar, continue sliding scale insulin, other - Titrate stress dose steroids Neurologic: keep patient comfortable - monitor MS Prophylaxis: Protonix, Heparin - LMWH Disposition: keep in ICU Time Spent (Minutes): 40 Notes 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, 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, renal, ID, GI, other - surgery Discussed with: nurses, consultants, family member, other - FC, continue to discuss GOC, consider ETHICS eval Critical Care - Objective Last 24 Hour Vital Signs Date Time Temp Pulse Resp B/P (MAP) Pulse Ox O2 Delivery O2 Flow Rate FiO2 12/13/18 11:14 103 26 100 Mechanical Ventilator 50 103 26 50 12/13/18 11:00 101 23 122/53 (76) 100 12/13/18 11:00 103 26 154/66 (95) 100 12/13/18 10:30 99 26 119/53 (75) 100 12/13/18 10:30 100 26 123/40 (67) 100 12/13/18 10:00 99 26 118/43 (68) 100 12/13/18 10:00 99 26 118/46 (70) 100 12/13/18 09:58 99 26 Mechanical Ventilator 50 12/13/18 09:30 99 26 119/43 (68) 100 12/13/18 09:30 98 26 120/43 (68) 100 12/13/18 09:00 98 26 120/47 (71) 100 12/13/18 09:00 98 26 119/45 (69) 99 12/13/18 08:30 97 26 118/47 (70) 99 12/13/18 08:30 98 26 119/45 (69) 99 12/13/18 08:08 50 12/13/18 08:00 98 12/13/18 08:00 100.8 97 26 120/40 (66) 100 12/13/18 08:00 100.8 98 26 118/44 (68) 99 12/13/18 08:00 70 12/13/18 07:45 97 26 118/35 (62) 99 12/13/18 07:30 97 26 118/47 (70) 99 12/13/18 07:15 97 26 118/35 (62) 99 12/13/18 07:00 96 26 119/51 (73) 100 12/13/18 06:50 96 26 100 Mechanical Ventilator 70 96 26 70 12/13/18 06:45 96 26 114/47 (69) 100 12/13/18 06:30 96 26 123/50 (74) 100 12/13/18 06:15 95 26 122/52 (75) 100 12/13/18 06:07 96 120/52 12/13/18 06:00 95 26 123/50 (74) 100 12/13/18 05:45 95 26 120/52 (74) 100 12/13/18 05:30 95 26 121/49 (73) 100 12/13/18 05:23 95 26 70 12/13/18 05:15 95 26 118/53 (74) 100 12/13/18 05:00 95 26 119/53 (75) 100 12/13/18 04:45 95 26 117/53 (74) 100 12/13/18 04:30 95 26 114/53 (73) 100 12/13/18 04:15 95 26 111/54 (73) 100 12/13/18 04:00 99.1 95 26 112/48 (69) 100 12/13/18 04:00 Mechanical Ventilator 12/13/18 04:00 70 12/13/18 03:45 95 26 111/55 (73) 100 12/13/18 03:36 93 12/13/18 03:30 95 26 110/52 (71) 100 12/13/18 03:19 96 26 70 12/13/18 03:15 96 26 113/67 (82) 100 12/13/18 03:00 96 26 125/63 (83) 100 12/13/18 02:30 96 26 122/64 (83) 100 12/13/18 02:15 97 26 124/66 (85) 100 12/13/18 02:00 97 26 120/66 (84) 100 12/13/18 01:45 97 26 123/60 (81) 100 12/13/18 01:30 97 26 124/62 (82) 100 12/13/18 01:25 97 26 100 Mechanical Ventilator 70 12/13/18 01:15 97 26 123/69 (87) 100 12/13/18 01:15 97 26 100 Mechanical Ventilator 70 97 26 70 12/13/18 00:45 97 26 120/58 (78) 100 12/13/18 00:30 98 26 121/63 (82) 100 12/13/18 00:15 98 26 121/61 (81) 100 12/13/18 00:00 70 12/13/18 00:00 Mechanical Ventilator 12/13/18 00:00 98.7 97 26 125/64 (84) 100 12/13/18 00:00 97 12/12/18 23:47 107/52 12/12/18 23:45 99 26 106/63 (77) 100 12/12/18 23:30 100 26 70 12/12/18 23:30 99 26 109/64 (79) 100 12/12/18 23:00 102 26 122/65 (84) 100 12/12/18 22:45 106 26 140/68 (92) 100 12/12/18 22:30 106 26 141/74 (96) 100 12/12/18 22:15 106 26 142/56 (84) 100 12/12/18 22:00 80 12/12/18 22:00 105 26 133/65 (87) 100 12/12/18 21:45 104 26 130/64 (86) 100 12/12/18 21:40 101 112/68 12/12/18 21:30 102 26 120/71 (87) 100 12/12/18 21:15 99 26 112/68 (83) 100 12/12/18 21:09 97 26 80 12/12/18 21:00 97 26 110/58 (75) 100 12/12/18 20:45 95 26 101/54 (70) 100 12/12/18 20:30 95 26 97/51 (66) 100 12/12/18 20:15 94 26 102/54 (70) 100 12/12/18 20:09 92 26 100 Mechanical Ventilator 100 12/12/18 20:00 Mechanical Ventilator 12/12/18 20:00 90 12/12/18 20:00 92 26 100/43 (62) 100 12/12/18 19:59 93 26 100 Mechanical Ventilator 100 93 26 100 12/12/18 19:45 93 26 101/48 (65) 100 12/12/18 19:30 93 26 101/43 (62) 100 12/12/18 19:24 93 12/12/18 19:15 93 26 108/46 (66) 100 12/12/18 19:00 107/63 12/12/18 19:00 98.5 93 26 111/61 (78) 100 12/12/18 18:45 92 26 101/52 (68) 100 12/12/18 18:45 85/49 12/12/18 18:30 91 26 85/49 (61) 100 12/12/18 18:30 69/35 12/12/18 18:15 91 26 77/41 (53) 100 12/12/18 18:15 84/39 12/12/18 18:00 91 26 84/39 (54) 100 12/12/18 18:00 104/48 12/12/18 17:45 104/46 12/12/18 17:45 91 26 104/46 (65) 100 12/12/18 17:30 114/52 12/12/18 17:30 92 26 114/52 (72) 100 12/12/18 17:15 91 26 114/41 (65) 100 12/12/18 17:15 111/41 12/12/18 17:00 108/54 12/12/18 17:00 92 26 108/54 (72) 100 12/12/18 16:50 91 20 90 12/12/18 16:45 91 26 110/63 (79) 100 12/12/18 16:45 110/63 12/12/18 16:30 117/56 12/12/18 16:30 90 26 117/56 (76) 100 9/24/19 16:15 126/61 12/12/18 16:15 88 26 126/61 (82) 100 12/12/18 16:00 97.5 87 26 131/72 (91) 100 12/12/18 16:00 75 12/12/18 16:00 90 12/12/18 16:00 131/72 12/12/18 16:00 Mechanical Ventilator 12/12/18 15:45 87 26 129/72 (91) 100 12/12/18 15:45 129/72 12/12/18 15:30 86 26 118/61 (80) 100 12/12/18 15:30 118/61 12/12/18 15:15 86 26 113/61 (78) 100 12/12/18 15:15 113/61 12/12/18 15:00 85 26 107/59 (75) 100 12/12/18 15:00 107/59 12/12/18 14:45 75/42 12/12/18 14:30 108/55 12/12/18 14:30 85 26 108/55 (72) 98 12/12/18 14:30 85 26 75 12/12/18 14:15 115/62 12/12/18 14:00 125/68 12/12/18 14:00 85 100/54 12/12/18 14:00 83 26 88/54 (65) 100 12/12/18 13:45 120/75 12/12/18 13:36 88/54 12/12/18 13:30 83 26 92/56 (68) 100 12/12/18 13:30 88/54 12/12/18 13:26 82/93 12/12/18 13:15 81 26 Mechanical Ventilator 75 12/12/18 13:15 82/53 12/12/18 13:00 83 26 95/60 (72) 96 12/12/18 13:00 75 12/12/18 13:00 92/56 12/12/18 12:45 104/63 12/12/18 12:30 95/60 12/12/18 12:30 83 26 95/60 (72) 96 12/12/18 12:15 89/52 12/12/18 12:00 82 12/12/18 12:00 Mechanical Ventilator 12/12/18 12:00 95/58 12/12/18 12:00 94.1 82 26 95/58 (70) 96 12/12/18 11:45 104/51 Status: other - non verbal trach Condition: critical HEENT: atraumatic Neck: trach Lungs: rhonchi Heart: HR/BP unstable Abdomen: soft, non-tender, active bowel sounds, feeding tube Extremities: edema - 2+, cyanosis - no, clubbing - no Decubiti: location - sacral, stage - 4 Micro: Microbiology Date/Time Source Procedure Growth Status 12/11/18 16:40 Blood Blood Culture - Preliminary NO GROWTH AFTER 24 HOURS Resulted 12/11/18 14:30 Blood Blood Culture - Preliminary NO GROWTH AFTER 24 HOURS Resulted 12/11/18 13:30 Sputum Induced Gram Stain - Final Resulted 12/11/18 13:30 Sputum Culture - Preliminary Gram Negative Bacillus 1 Gram Negative Bacillus 2 Resulted Accucheck: 79 Blood Sugars: BS controlled Critical Care - Subjective ROS Limited/Unobtainable: Yes ICU Day: 4 Intubation Day: N/A Interval Events: On HCO3++ per renal Cr stable 1.9 WCT 30 HCO3 12 AG 22 No sig secretions Carlos 6 Titrating pressors Stable on vent Condition: critical IV Access: PICC EKG Rhythm: Sinus Rhythm FI02: 50 Vent Support Breath Rate: 26 Vent Support Mode: AC Vent Tidal Volume: 600 Sputum Amount: Small PEEP: 5.0 PIP: 40 Secretions: small Fluids: NSHCO3-@100 Drips: NE 20 JENNI 200 Vaso 0.4 Tube Feeding Amount: 35 Residuals: 0 I&O: Intake and Output 12/12/18 12/13/18 19:00 07:00 Intake Total 2182.800 ml 3287.3 ml Output Total 300 ml 400 ml Balance 1882.800 ml 2887.3 ml IV Total 2152.800 ml 3287.3 ml Other 30 ml Output Urine Total 0 ml 0 ml Gastric Drainage Total 300 ml 400 ml Subjective: SOWMYA Labs: Laboratory Tests Test 12/12/18 14:00 12/12/18 16:55 12/12/18 19:01 12/12/18 19:06 Thyroid Stimulating Hormone (TSH) 0.290 uiU/mL (0.358-3.740) Cortisol 6.7 UG/DL Lactic Acid Level 10.20 mmol/L (0.4-2.0) H 10.30 mmol/L (0.66-2.22) H Arterial Blood pH 7.142 (7.350-7.450) Arterial Blood Partial Pressure CO2 30.8 mmHg (35.0-45.0) L Arterial Blood Partial Pressure O2 < 45.3 mmHg (75.0-100.0) Arterial Blood HCO3 10.3 mmol/L (22.0-26.0) *L Arterial Blood Oxygen Saturation 66.3 % (95-100) *L Arterial Blood Base Excess -17.3 (-2-2) *L Harsh Test Positive Test 12/12/18 19:39 12/13/18 03:15 12/13/18 05:40 12/13/18 07:45 Arterial Blood pH 7.226 (7.350-7.450) 7.228 (7.350-7.450) Arterial Blood Partial Pressure CO2 21.4 mmHg (35.0-45.0) *L 22.9 mmHg (35.0-45.0) *L Arterial Blood Partial Pressure O2 298.5 mmHg (75.0-100.0) H 141.7 mmHg (75.0-100.0) H Arterial Blood HCO3 8.7 mmol/L (22.0-26.0) *L 9.3 mmol/L (22.0-26.0) *L Arterial Blood Oxygen Saturation 99.2 % (95-100) 98.0 % (95-100) Arterial Blood Base Excess -17.2 (-2-2) *L -16.3 (-2-2) *L Harsh Test Positive Positive White Blood Count 31.6 K/UL (4.8-10.8) *H Red Blood Count 2.99 M/UL (4.20-5.40) L Hemoglobin 8.0 G/DL (12.0-16.0) L Hematocrit 25.1 % (37.0-47.0) L Mean Corpuscular Volume 84 FL (80-99) Mean Corpuscular Hemoglobin 26.7 PG (27.0-31.0) L Mean Corpuscular Hemoglobin Concent 31.8 G/DL (32.0-36.0) L Red Cell Distribution Width 18.0 % (11.6-14.8) H Platelet Count 178 K/UL (150-450) Mean Platelet Volume 7.1 FL (6.5-10.1) Neutrophils (%) (Auto) % (45.0-75.0) Lymphocytes (%) (Auto) % (20.0-45.0) Monocytes (%) (Auto) % (1.0-10.0) Eosinophils (%) (Auto) % (0.0-3.0) Basophils (%) (Auto) % (0.0-2.0) Differential Total Cells Counted 100 Neutrophils % (Manual) 84 % (45-75) H Lymphocytes % (Manual) 3 % (20-45) L Monocytes % (Manual) 3 % (1-10) Eosinophils % (Manual) 3 % (0-3) Basophils % (Manual) 0 % (0-2) Band Neutrophils 7 % (0-8) Nucleated Red Blood Cells 1 /100 WBC Platelet Estimate Adequate Platelet Morphology Normal Hypochromasia 1+ Anisocytosis 1+ Target Cells 1+ Sodium Level 126 MMOL/L (136-145) L Potassium Level 4.3 MMOL/L (3.5-5.1) Chloride Level 92 MMOL/L (98-107) L Carbon Dioxide Level 12 MMOL/L (21-32) L Anion Gap 22 mmol/L (5-15) H Blood Urea Nitrogen 45 mg/dL (7-18) H Creatinine 1.9 MG/DL (0.55-1.30) H Estimat Glomerular Filtration Rate mL/min (>60) Glucose Level 112 MG/DL (74-106) H Lactic Acid Level 10.30 mmol/L (0.4-2.0) H 10.40 mmol/L (0.66-2.22) H Calcium Level 7.5 MG/DL (8.5-10.1) L Total Bilirubin 2.5 MG/DL (0.2-1.0) H Direct Bilirubin 1.8 MG/DL (0.0-0.3) H Aspartate Amino Transf (AST/SGOT) 1869 U/L (15-37) H Alanine Aminotransferase (ALT/SGPT) 600 U/L (12-78) H Alkaline Phosphatase 371 U/L (46-116) H Total Protein 5.0 G/DL (6.4-8.2) L Albumin 1.6 G/DL (3.4-5.0) L Globulin 3.4 g/dL Albumin/Globulin Ratio 0.5 (1.0-2.7) L Balbir Dejesus MD Dec 13, 2018 11:44
--- NOTE | 2018-12-13 12:00 | NUR ---
NURSE NOTES: Pt in bed, obtunded. tongue protrusion less. trach to vent, current settings Shiley 8, ac 26 vt 600, fi02 40% peep 5. lung sounds diminished, rhonchi. secretions thick and dark brown /mccauley. on the monitor, Vs: 129/ 62, HR 114, RR 26, FI02 98%. GT connected intermittent suction. minimal output straw color. will attempt to start T.F Glucerna 1.2 at 5ml/hr.Ospina cath draining very dark urine, minimal output. KAITLYNN PICC line intact,with IVF bicarb 8.4@ at 100 ml/hr, levo @20, vasopressin 0.02u/hr, walter 80mcg/h. pitting edema upper and lower extremities. skin dry and scaly, moisturizer. skin-see assessment. contact and sz precautions in place. HOB elevated, bed lock in lowest position, will continue with pt care.
--- NOTE | 2018-12-13 13:00 | NUR ---
NURSE NOTES: called lab to inform of riffler tender draw d/t pt on vasopressins. will be up soon.
[2018-12-13] MEDS: Norepinephrine Bitartrate 8 MG in D5W 500ml 492 ML IV SCH ×2 (14:08→20:42)
[2018-12-13] MEDS: Vasopressin 100 UNITS in NS 95 ML IV SCH (14:11)
--- NOTE | 2018-12-13 14:19 | NUR ---
RADIOLOGY DEPT., CHEST X-RAY DONE.-P.DYE
[2018-12-13 15:35] LABS: APPEARANCE,URINE CLOUDY; BILIRUBIN, URINE 2+ (NEGATIVE); COLOR,URINE BROWN; GLUCOSE, URINE (UA) 1+ (NEGATIVE); KETONES,URINE 1+ (NEGATIVE); LEUKOCYTE ESTERASE ,URINE 2+ (NEGATIVE); NITRITE,URINE POSITIVE (NEGATIVE); PH,URINE 5 (4.5-8.0); PROTEIN,URINE 3+ (NEGATIVE); UROBILINOGEN,URINE 1 MG/DL (0.0-1.0)
--- NOTE | 2018-12-13 16:00 | NUR ---
NURSE NOTES: Pt in bed, obtunded. tongue protrusion less. trach to vent, current settings Shiley 8, ac 26 vt 600, fi02 4% peep 5. lung sounds diminished, rhonchi. secretions thick and dark brown /mccauley. on the monitor, Vs: 1104/50, HR 109, RR 26, FI02 99%. T.F on hold d/t high residual. Glucerna 1.2 at 5ml/hr. Ospina cath draining, very dark urine, minimal output. KAITLYNN PICC line intact,with IVF NS@ at 75 ml/hr, levo @20, vasopressin 0.02u/hr, walter 60u/h. pitting edema upper and lower extremities. skin dry and scaly, moisturizer. skin-see assessment. contact and sz precautions in place. HOB elevated, bed lock in lowest position, will continue with pt care.
[2018-12-13] MEDS: Cefepime 2gm/D5W 110ml IV SCH ×2 (16:23)
[2018-12-13] MEDS: Phenylephrine 100 MG in D5W 500ml 490 ML IV SCH (17:31)
--- NOTE | 2018-12-13 17:37 | NUR ---
RESPIRATORY NOTE: Received pt on AC 26, 600 VT, FIO2 90%, PEEP of 5. Pt is trach with cuffed shiley 8. Pt is obtunded. breath sounds rhonchi bilaterally. Suctioning small amounts of thick mccauley yellow secretions. Vent plugged into red outlet and ambu bag at bedside. Pt in no apparent distress at this time. Will continue to monitor pt. Addendum: 12/13/18 at 1745 by WAI SHELTON FIO2 40%
--- NOTE | 2018-12-13 17:46 | NUR ---
NURSE NOTES: pt BG 50, Mhdhvxyd50%, 50ml IVP given will recheck BG in 30min
--- NOTE | 2018-12-13 17:49 | Diagnostic Imaging Report ---
Indication: Dyspnea Technique: One view of the chest Comparison: 12/12/2018 Findings: There is again demonstrated bilateral interstitial and airspace edema. This appears slightly improved but still extensive. The heart is probably enlarged. Tracheostomy remains. Impression: Slightly improved is the extensive bilateral interstitial and airspace edema versus infiltrates, over one day.
--- NOTE | 2018-12-13 18:15 | NUR ---
NURSE NOTES: recheck for BG 139. responsive to d50. vss. pt in no acute distress.
--- NOTE | 2018-12-13 19:34 | NUR ---
NURSE NOTES: Received patient from Richie Edward RN. Patient is s/p arrest. Patient is obtunded, non-responsive to hard stimuli, eyes closed, does not track. Patient is trached to ventilator. Shiley 8.0, AC 26, 600tv, 40% FiO2, peep of 5. Patient is on Levophed gtt, Phenylephrine gtt and Vasopressin gtt along with NS at 75ml/hr. Currently the blood pressure is 83/40. Pressors are ongoing and being titrated to meet MAP of above 60. Patient is also in and out of Sinus Tachycardia and Afib. Afib around 80s, MD's are aware. Patients RR is 26 and temperature now is 99.6F (axillary). G tube noted and Ospina catheter noted, not very much output, MD's are also aware of that. Sacral wound is noted. KAITLYNN PICC line, dressing is dry and intact. Patient has generalized edema all over body. Feeds are on hold for now as patient is in unstable condition at this time. MD's are aware and updated on patients current condition. Will continue to monitor.
--- NOTE | 2018-12-13 19:44 | NUR ---
NURSE NOTES: pt maxing levo d/t bp and hr variables. pt hob>30. will continue to monitor pt.
--- NOTE | 2018-12-13 19:49 | NUR ---
HAND-OFF: Report given to Ki Brennan. endorsed feeding pump
--- NOTE | 2018-12-13 19:50 | NUR ---
NURSE NOTES: Lab called to inform me about Lactic Acid result of 17.50. Will notify MD regarding these results.
--- NOTE | 2018-12-13 20:00 | NUR ---
NURSE NOTES: Patient noted to have feed residual of 150ml.
[2018-12-13] MEDS: Dyna-Hex 2% Top Sol 2oz TOPIC SCH (20:23)
--- NOTE | 2018-12-13 20:46 | NUR ---
NURSE NOTES: pt's glucose was 69. dextrose IV push given. some PO meds held as pt is unstable at this moment. pt continues to have high residuals. pressors ongoing. pt remains in critical condition. will continue to monitor.
--- NOTE | 2018-12-13 22:00 | NUR ---
NURSE NOTES: due meds given. pressors ongoing. pressors being titrated appropriately. patient remains afebrile. no change in condition. patient remains in critical state. current heart rate is at NSR. saturating 100%, patient is receiving full ventilator volumes. pulses are noted. suctioned patient, noted absent gag reflex. feeding continues to remain on hold. will continue to monitor.
--- NOTE | 2018-12-13 22:03 | Surgery Progress Note ---
Surgery Progress Note Subjective Additional Comments ill appearing in ICU labs noted exam stable Objective Last 24 Hour Vital Signs Date Time Temp Pulse Resp B/P (MAP) Pulse Ox O2 Delivery O2 Flow Rate FiO2 12/13/18 21:30 90 26 116/36 (62) 100 12/13/18 21:30 94 26 40 12/13/18 21:00 98 26 79/33 (48) 98 12/13/18 20:42 99/46 12/13/18 20:33 98 83/42 12/13/18 20:30 90 26 99/46 (63) 100 12/13/18 20:00 99.6 98 26 83/42 (56) 98 12/13/18 20:00 Mechanical Ventilator 12/13/18 20:00 40 12/13/18 19:30 98 26 79/33 (48) 98 12/13/18 19:20 103 26 40 12/13/18 19:00 97 25 97/61 (73) 98 12/13/18 18:30 93 26 102/52 (69) 98 12/13/18 18:00 96 26 98/52 (67) 98 12/13/18 18:00 96 26 98/50 (66) 97 12/13/18 18:00 98/59 12/13/18 17:31 99 95/57 12/13/18 17:30 98 26 97/51 (66) 99 12/13/18 17:30 98 25 85/57 (66) 12/13/18 17:03 106 26 40 12/13/18 17:00 105 25 96/69 (78) 96 12/13/18 17:00 95/57 12/13/18 16:30 110 26 104/67 (79) 98 12/13/18 16:00 Mechanical Ventilator 12/13/18 16:00 99.8 111 26 98/62 (74) 100 12/13/18 16:00 104/50 12/13/18 16:00 110 12/13/18 16:00 70 12/13/18 15:30 114 26 99/58 (72) 97 12/13/18 15:07 117 26 40 12/13/18 15:00 115 26 100/50 (67) 98 12/13/18 15:00 99/58 12/13/18 14:30 116 26 105/38 (60) 98 12/13/18 14:08 98/53 12/13/18 14:00 114 26 97/55 (69) 100 12/13/18 13:39 123 91/54 12/13/18 13:30 115 26 98/53 (68) 100 12/13/18 13:05 122 26 96 Mechanical Ventilator 40 116 26 40 12/13/18 13:00 120 26 101/46 (64) 97 12/13/18 12:30 125 26 108/56 (73) 97 12/13/18 12:00 70 12/13/18 12:00 99.6 122 26 99/55 (70) 98 12/13/18 12:00 114 12/13/18 12:00 129/62 12/13/18 12:00 Mechanical Ventilator 12/13/18 11:14 103 26 100 Mechanical Ventilator 50 103 26 50 12/13/18 11:00 101 23 122/53 (76) 100 12/13/18 11:00 154/66 12/13/18 11:00 103 26 154/66 (95) 100 12/13/18 10:30 99 26 119/53 (75) 100 12/13/18 10:30 100 26 123/40 (67) 100 12/13/18 10:08 99.3 12/13/18 10:00 99 26 118/43 (68) 100 12/13/18 10:00 118/46 12/13/18 10:00 99 26 118/46 (70) 100 12/13/18 09:58 99 26 Mechanical Ventilator 50 12/13/18 09:30 99 26 119/43 (68) 100 12/13/18 09:30 98 26 120/43 (68) 100 12/13/18 09:00 98 26 120/47 (71) 100 12/13/18 09:00 98 26 119/45 (69) 99 12/13/18 09:00 120/47 12/13/18 08:30 97 26 118/47 (70) 99 12/13/18 08:30 98 26 119/45 (69) 99 12/13/18 08:08 50 12/13/18 08:00 Mechanical Ventilator 12/13/18 08:00 98 12/13/18 08:00 100.8 97 26 120/40 (66) 100 12/13/18 08:00 118/44 9/25/19 08:00 100.8 98 26 118/44 (68) 99 12/13/18 08:00 70 12/13/18 07:45 97 26 118/35 (62) 99 12/13/18 07:30 97 26 118/47 (70) 99 12/13/18 07:15 97 26 118/35 (62) 99 12/13/18 07:00 96 26 119/51 (73) 100 12/13/18 06:50 96 26 100 Mechanical Ventilator 70 96 26 70 12/13/18 06:45 96 26 114/47 (69) 100 12/13/18 06:30 96 26 123/50 (74) 100 12/13/18 06:15 95 26 122/52 (75) 100 12/13/18 06:07 96 120/52 12/13/18 06:00 95 26 123/50 (74) 100 12/13/18 05:45 95 26 120/52 (74) 100 12/13/18 05:30 95 26 121/49 (73) 100 12/13/18 05:23 95 26 70 12/13/18 05:15 95 26 118/53 (74) 100 12/13/18 05:00 95 26 119/53 (75) 100 12/13/18 04:45 95 26 117/53 (74) 100 12/13/18 04:30 95 26 114/53 (73) 100 12/13/18 04:15 95 26 111/54 (73) 100 12/13/18 04:00 99.1 95 26 112/48 (69) 100 12/13/18 04:00 Mechanical Ventilator 12/13/18 04:00 70 12/13/18 03:45 95 26 111/55 (73) 100 12/13/18 03:36 93 12/13/18 03:30 95 26 110/52 (71) 100 12/13/18 03:19 96 26 70 12/13/18 03:15 96 26 113/67 (82) 100 12/13/18 03:00 96 26 125/63 (83) 100 12/13/18 02:30 96 26 122/64 (83) 100 12/13/18 02:15 97 26 124/66 (85) 100 12/13/18 02:00 97 26 120/66 (84) 100 12/13/18 01:45 97 26 123/60 (81) 100 12/13/18 01:30 97 26 124/62 (82) 100 12/13/18 01:25 97 26 100 Mechanical Ventilator 70 12/13/18 01:15 97 26 123/69 (87) 100 12/13/18 01:15 97 26 100 Mechanical Ventilator 70 97 26 70 12/13/18 00:45 97 26 120/58 (78) 100 12/13/18 00:30 98 26 121/63 (82) 100 12/13/18 00:15 98 26 121/61 (81) 100 12/13/18 00:00 70 12/13/18 00:00 Mechanical Ventilator 12/13/18 00:00 98.7 97 26 125/64 (84) 100 12/13/18 00:00 97 12/12/18 23:47 107/52 12/12/18 23:45 99 26 106/63 (77) 100 12/12/18 23:30 100 26 70 12/12/18 23:30 99 26 109/64 (79) 100 12/12/18 23:00 102 26 122/65 (84) 100 12/12/18 22:45 106 26 140/68 (92) 100 12/12/18 22:30 106 26 141/74 (96) 100 12/12/18 22:15 106 26 142/56 (84) 100 I&O Intake and Output 12/12/18 12/13/18 19:00 07:00 Intake Total 2182.800 ml 3287.3 ml Output Total 300 ml 400 ml Balance 1882.800 ml 2887.3 ml IV Total 2152.800 ml 3287.3 ml Other 30 ml Output Urine Total 0 ml 0 ml Gastric Drainage Total 300 ml 400 ml Dressing: other Wound: other Drains: other Cardiovascular: RSR Respiratory: decreased breath sounds Abdomen: soft, present bowel sounds Extremities: no cyanosis, other Laboratory Tests Test 12/13/18 03:15 12/13/18 05:40 12/13/18 07:45 12/13/18 12:58 White Blood Count 31.6 K/UL (4.8-10.8) *H Red Blood Count 2.99 M/UL (4.20-5.40) L Hemoglobin 8.0 G/DL (12.0-16.0) L Hematocrit 25.1 % (37.0-47.0) L Mean Corpuscular Volume 84 FL (80-99) Mean Corpuscular Hemoglobin 26.7 PG (27.0-31.0) L Mean Corpuscular Hemoglobin Concent 31.8 G/DL (32.0-36.0) L Red Cell Distribution Width 18.0 % (11.6-14.8) H Platelet Count 178 K/UL (150-450) Mean Platelet Volume 7.1 FL (6.5-10.1) Neutrophils (%) (Auto) % (45.0-75.0) Lymphocytes (%) (Auto) % (20.0-45.0) Monocytes (%) (Auto) % (1.0-10.0) Eosinophils (%) (Auto) % (0.0-3.0) Basophils (%) (Auto) % (0.0-2.0) Differential Total Cells Counted 100 Neutrophils % (Manual) 84 % (45-75) H Lymphocytes % (Manual) 3 % (20-45) L Monocytes % (Manual) 3 % (1-10) Eosinophils % (Manual) 3 % (0-3) Basophils % (Manual) 0 % (0-2) Band Neutrophils 7 % (0-8) Nucleated Red Blood Cells 1 /100 WBC Platelet Estimate Adequate Platelet Morphology Normal Hypochromasia 1+ Anisocytosis 1+ Target Cells 1+ Sodium Level 126 MMOL/L (136-145) L Potassium Level 4.3 MMOL/L (3.5-5.1) Chloride Level 92 MMOL/L (98-107) L Carbon Dioxide Level 12 MMOL/L (21-32) L Anion Gap 22 mmol/L (5-15) H Blood Urea Nitrogen 45 mg/dL (7-18) H Creatinine 1.9 MG/DL (0.55-1.30) H Estimat Glomerular Filtration Rate mL/min (>60) Glucose Level 112 MG/DL (74-106) H Lactic Acid Level 10.30 mmol/L (0.4-2.0) H 10.40 mmol/L (0.66-2.22) H Calcium Level 7.5 MG/DL (8.5-10.1) L Total Bilirubin 2.5 MG/DL (0.2-1.0) H Direct Bilirubin 1.8 MG/DL (0.0-0.3) H Aspartate Amino Transf (AST/SGOT) 1869 U/L (15-37) H Alanine Aminotransferase (ALT/SGPT) 600 U/L (12-78) H Alkaline Phosphatase 371 U/L (46-116) H Total Protein 5.0 G/DL (6.4-8.2) L Albumin 1.6 G/DL (3.4-5.0) L Globulin 3.4 g/dL Albumin/Globulin Ratio 0.5 (1.0-2.7) L Arterial Blood pH 7.228 (7.350-7.450) 7.103 (7.350-7.450) Arterial Blood Partial Pressure CO2 22.9 mmHg (35.0-45.0) *L 19.1 mmHg (35.0-45.0) *L Arterial Blood Partial Pressure O2 141.7 mmHg (75.0-100.0) H 119.9 mmHg (75.0-100.0) H Arterial Blood HCO3 9.3 mmol/L (22.0-26.0) *L 5.8 mmol/L (22.0-26.0) *L Arterial Blood Oxygen Saturation 98.0 % (95-100) 97.2 % (95-100) Arterial Blood Base Excess -16.3 (-2-2) *L -21.9 (-2-2) *L Harsh Test Positive Positive Test 12/13/18 15:00 12/13/18 18:05 Urine Color Brown Urine Appearance Cloudy Urine pH 5 (4.5-8.0) Urine Specific Cyclone 1.020 (1.005-1.035) Urine Protein 3+ (NEGATIVE) H Urine Glucose (UA) 1+ (NEGATIVE) H Urine Ketones 1+ (NEGATIVE) H Urine Blood 4+ (NEGATIVE) H Urine Nitrite Positive (NEGATIVE) H Urine Bilirubin 2+ (NEGATIVE) H Urine Ictotest Negative (NEGATIVE) Urine Urobilinogen 1 MG/DL (0.0-1.0) H Urine Leukocyte Esterase 2+ (NEGATIVE) H Urine RBC 15-20 /HPF (0 - 2) H Urine WBC 20-30 /HPF (0 - 2) H Urine Squamous Epithelial Cells Few /LPF (NONE/OCC) Urine Amorphous Sediment Many /LPF (NONE) H Urine Bacteria Many /HPF (NONE) H Urine Osmolality 303 mOsm/kg (429-449) L Urine Random Sodium 34 mmol/L (20-110) Lactic Acid Level 17.50 mmol/L (0.4-2.0) H Plan Problems: (1) Fever (2) Tongue abnormality Assessment & Plan: patients jaw clenched closed and tongue has been stuck for some time. tongue split from middle teeth and now in two. edema and unable to reduce keep tongue moist. apply lube jelly prn dryness. will monitor do not recommend surgical intervention for this current medical condition spoke with family. ENT. OMFS no intervention stable still overall Was able to reduce the tongue after patient was noted to have unclenched jaw yesterday remains reduced and stable. Discussed with family (3) Tracheostomy dependence (4) Sepsis Assessment & Plan: gb no stones 6mm polyp no acute surgical intervention planned trend labs neck wounds being cared for sacral wound declining despite best efforts she has been receiving adequate nutritional supplementation and good wound care but inevitable decline unfortunately prognosis guarded DAILY ESTIMATED NEEDS: Needs based on Critical care, sepsis, wound 60kg adj 22-30 kcals/kg 2043-1020 total kcals 1.25-2 g protein/kg 75-120 g total protein Fluid per MD, on lasix NUTRITION DIAGNOSIS: * Swallowing difficulty r/t respiratory status as evidenced by pt is vent dep via trach and PEG dep. * Increased kcal and pro needs r/t wound healing and sepsis as evidenced by pt w/ sacral and R heel wounds, febrile (Tmax 101.5). CURRENT TF: Jevity 1.2 @50 ml/hr x16 hrs ENTERAL NUTRITION RECOMMENDATIONS: Glucerna 1.2 @65ml/hr x18 hrs + Prosource x1 daily to provide 1170ml, 1404 kcal, 70g pro + 11g pro, 942 free H2O - REC TF CHANGE AND INCREASE TO BETTER MEET EST NEEDS - TF TO BE HELD FOR ONE HR BEFORE AND AFTER DILANTIN MEDS - START @20ML/HR, ADVANCE TOLERATED 15ML/HR Q4-6 HRS TO GOAL - FLUSH PER MD, HOB OVRE 30 DEGREES ADDITIONAL RECOMMENDATIONS: 1) CALIBRATED BED SCALE W/ ADDED P200 MATTRESS + PUMP 2) ON LASIX, MONITOR LYTES AND HYDRATION STATUS DAILY 3) TF TO RUN A MAX OF 18 HRS/DAY W/ DILANTIN TID PER PHARMACY 4) REC TF CHANGE TO CARB CONTROL FORMULA 5) WOUND CARE: ADD CHAYITO BID + VIT C 250MG DAILY (5) Fever Assessment & Plan: CT A/P with findings Impression: No definite acute process Diverticulosis. No evidence of diverticulitis Extensive edema of the subcutaneous fat. 2 cm focal fluid collection/edema seen within the incision Moderate amount retained dense stool. Correlate with any clinical history of constipation Hiatal hernia. Gastrostomy Left renal parapelvic cysts Apparent prior hysterectomy US w/ There are gallstones identified. No gallbladder wall thickening identified. The liver is unremarkable. Gallbladder is unremarkable. CBD is 3 mm. No gallstones identified. No biliary ductal dilatation seen. The kidneys are echogenic. There is no significant hydronephrosis demonstrated. There may be slight fullness of the left collecting system at the level of the kidney. The spleen is normal size. Pancreas and aorta are grossly unremarkable as visualized. (6) Decubitus skin ulcer Assessment & Plan: Pt presented on admission with full thickness sacral pressure injury.Base of wound is 20% necrotic , 80% slough. borders are macerated . Mild odor noted. (L)8.4cm x (W) 6.5cm. Periwound skin tone is darker without erythema,induration or elevation in skin temp. Both heels are non -blanchable and both are fluctuant when palpated. neck wounds still declining because of trach dependance, edema, and location as well as patients contractures Tx.Plan: Clean wound with saline. Apply Therahoney. Aply Moisture Barrier paste periwound. Cover with Optifoam drsg. Change every 3 days and prn. Apply Cavilon Skin Barrier to both heels. Cover each heel with Optifoam drsg. Change every 7 days and prn. wash neck wounds daily, apply skin protectant, therahoney, gauze and foam dressing daily APM/DEIRDRE mattress overlay. Reposition at least every 2hours or as tolerated. Off-load heels with pillow. will follow with recs thank you Preet Hylton Dec 13, 2018 22:03
[2018-12-14] VITALS (41 sets, daily range): BP systolic 40–183; BP diastolic 16–96
--- NOTE | 2018-12-14 | NUR ---
NURSE NOTES: pt's glucose is 159. no coverage given as patient's feeding is currently on hold d/t high residuals and previous hypoglycemic episodes. patient's current temp is 97.4, cool to touch. pressors ongoing, titrating appropriately to meet MAP of 60. oral care given. current BP is 136/43, heart rate is 90 sinus rhythm, RR: 26, saturating 100% at 40% FiO2. will continue to monitor.
[2018-12-14] MEDS: Colistin for inhalation INH SCH ×2 (00:08→10:27)
[2018-12-14] MEDS: Norepinephrine Bitartrate 8 MG in D5W 500ml 492 ML IV SCH ×3 (01:09→11:17)
--- NOTE | 2018-12-14 02:00 | NUR ---
NURSE NOTES: pressors ongoing and being titrated appropriately. no change in patient's condition, patient remains in critical state at this time. patient continues to receive full ventilator volumes, saturating at 100%. eye patches applied. feeding continues to remain on hold, GT residual is 100ml. will continue to monitor.
--- NOTE | 2018-12-14 04:00 | NUR ---
NURSE NOTES: pressors ongoing and being titrated appropriately. CHG bath given, patient cleaned and new linen applied. blood drawn and sent to lab. oral care given. feeding remains on hold d/t high residuals. current temp is 96.8 F. no urine output. pulses are noted, but diminished. heart rate remains NSR, BP is 142/17, RR: 26, saturating at 100% with full ventilator volumes. no change in condition, remains guarded. will continue to monitor.
[2018-12-14 05:10] LABS: HEMATOCRIT 24.5 % (37.0-47.0); HEMOGLOBIN 7.8 G/DL (12.0-16.0); MEAN CORPUSCULAR VOLUME 89 FL (80-99); PLATELET COUNT 114 K/UL (150-450); RED BLOOD COUNT 2.77 M/UL (4.20-5.40); RED CELL DISTRIBUTION WIDTH 19.2 % (11.6-14.8)
[2018-12-14 05:20] LABS: WHITE BLOOD COUNT 26.2 K/UL (4.8-10.8)
[2018-12-14] MEDS: Magic Mouth Wash 60ml (Benadryl/Mylanta/Visc Lido) ORAL SCH ×2 (05:23→14:40)
[2018-12-14] MEDS: Phenytoin Susp 100mg/4ml GT SCH ×2 (05:23→14:36)
[2018-12-14] MEDS: Hydrocortisone 100mg Inj IV SCH ×2 (05:23→14:36)
[2018-12-14] MEDS: NovoLOG Insulin Flexpen SUBQ SCH ×4 (05:23→18:00)
[2018-12-14] MEDS: Labetalol 200mg tab GT SCH ×2 (05:24→14:00)
[2018-12-14 05:41] LABS: ALANINE AMINOTRANSFERASE 1620 U/L (12-78); ALBUMIN 1.3 G/DL (3.4-5.0); ALBUMIN/GLOBULIN RATIO 0.4 (1.0-2.7); ALKALINE PHOSPHATASE 535 U/L (46-116); BILIRUBIN,TOTAL 2.6 MG/DL (0.2-1.0); BLOOD UREA NITROGEN 42 mg/dL (7-18); CALCIUM 7.6 MG/DL (8.5-10.1); CHLORIDE 88 MMOL/L (98-107); CREATININE 1.8 MG/DL (0.55-1.30); POTASSIUM 5.1 MMOL/L (3.5-5.1); SODIUM 121 MMOL/L (136-145)
[2018-12-14 05:46] LABS: BILIRUBIN,DIRECT 2.1 MG/DL (0.0-0.3)
--- NOTE | 2018-12-14 06:00 | NUR ---
NURSE NOTES: due meds given. patient is currently off neosynephrine and vasopressin; titrating levophed appropriately. patient's current BP is 97/59, NSR with heart rate of 80 currently on the monitor. RR: 26, saturating 100% with full ventilator volumes. patient is afebrile. feedings will resume as patient has residual of 50ml. Will start off at 25ml/hr.
[2018-12-14 06:10] LABS: CARBON DIOXIDE < 5 MMOL/L (21-32)
--- NOTE | 2018-12-14 06:55 | NUR ---
RESPIRATORY NOTE: Received pt on trach cuffed Shiley size 8.0, secured with trach tie and trach guard, with current vent settings: AC 26-600ml-40%FiO2- peep 5. Juan rhonchi breath sounds heard upon auscultation, suctioned small amount of thick white/mccauley secretions without incidents. There are wounds above and below the trach area, covered by wound tapes per nurses. Titrated FiO2 down to 35%, RN aware. Pt is susy well, saturates at 100%. Alarms are set and audible, vent is plugged into the red outlet, ambu bag and trach kit at bedside. Vent circuits and suction tubing are secured and out of the way. Will continue to monitor and suction q2hr and as needed.
--- NOTE | 2018-12-14 07:13 | NUR ---
HAND-OFF: Report given to CHARLEE Singh. endorsed current labs and overnight events and plan of care.
--- NOTE | 2018-12-14 07:14 | NUR ---
NURSE NOTES: Received patient from Carol RN. Patient blood pressure unstable at 85/23. Levophed increased to 30mcg/hr a this time. Will continue to monitor and titrate medications per protocol. Patient temperature was reported to be low overnight. Temperature at this time 97.4. Will continue to monitor. Patient showing sinus rhythm on the monitor worker at this time. patient HR 77 and RR 26 on tracheostomy to ventilator with setting of AC 26, TV 600, FiO2 35%, and PEEP 5. Patient not breathing on her own at all at this time. SpO2 100% and RR 26. Patient does not respond to voice, light pain, or deep pain. Patient has no gag reflex. Patient's extremities are cold to touch despite multiple blankets. Core temp 97.4. Will continue to monitor as previously stated. Patient has a gastrostomy tube that is clamped at this time. Patient has an order to start tube feeding but she has had >100mL residual throughout the night. Will monitor residual and start feeding when appropriate. Patient has PICC line of the right upper extremity that is patent, asymptomatic, and running levophed at 30mcg/hr and Normal saline at 75mL/hr. Patient blood sugar unstable over night. Will follow up with MD to change IV fluid. Patient has sacral unstagable wound, full thickness pressure ulcers of the right and left ear, and skin break down at the trach insertion site. Patient potassium elevated at 5.1 this morning. Will follow up with neprhologist. Patient Hgb 7.8. Will notify MD when she arrives. Oral care performed at this time. Bleeding of the gums noted. Tongue dark purple/red. Will notify MD when she rounds on the patient. Patient bed in low position with bed alarm on and call light in reach.
[2018-12-14 07:44] LABS: ASPARTATE AMINO TRANSFERASE 6692 U/L (15-37)
[2018-12-14] MEDS: Enoxaparin 40mg Inj SUBQ SCH (09:00)
[2018-12-14] MEDS ORDERED: Pantoprazole Inj IVP SCH (09:00)
[2018-12-14] MEDS: Levemir Flexpen SUBQ SCH (09:00)
--- NOTE | 2018-12-14 09:10 | General Progress Note ---
Assessment/Plan Problem List: (1) Cardiac arrest ICD Codes: I46.9 - Cardiac arrest, cause unspecified SNOMED: 567837730 (2) Ventilator dependence ICD Codes: Z99.11 - Dependence on respirator [ventilator] status SNOMED: 059901051 (3) DAMASO (acute kidney injury) ICD Codes: N17.9 - Acute kidney failure, unspecified SNOMED: 9217466, 59551171 (4) Sepsis ICD Codes: A41.9 - Sepsis, unspecified organism SNOMED: 67044384 (5) Gram-negative pneumonia ICD Codes: J15.6 - Pneumonia due to other Gram-negative bacteria SNOMED: 820214468 (6) MRSA (methicillin resistant staphylococcus aureus) pneumonia ICD Codes: J15.212 - Pneumonia due to Methicillin resistant Staphylococcus aureus SNOMED: 080019840308093 (7) Fever ICD Codes: R50.9 - Fever, unspecified SNOMED: 644638216 (8) UTI (urinary tract infection) ICD Codes: N39.0 - Urinary tract infection, site not specified SNOMED: 67145497 (9) Tracheostomy dependence ICD Codes: Z93.0 - Tracheostomy status SNOMED: 382752623 (10) Protein calorie malnutrition ICD Codes: E46 - Unspecified protein-calorie malnutrition SNOMED: 015538300 (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 SNOMED: 75862456 (12) Drug rash ICD Codes: L27.0 - Generalized skin eruption due to drugs and medicaments taken internally SNOMED: 54581859 (13) Line sepsis ICD Codes: T85.79XA - Infection and inflammatory reaction due to other internal prosthetic devices, implants and grafts, initial encounter; A41.9 - Sepsis, unspecified organism SNOMED: 39331539, 424768908 (14) Bacteremia ICD Codes: R78.81 - Bacteremia SNOMED: 3698448 (15) Hyponatremia ICD Codes: E87.1 - Hypo-osmolality and hyponatremia SNOMED: 39335836 (16) Seizure disorder ICD Codes: G40.909 - Epilepsy, unspecified, not intractable, without status epilepticus SNOMED: 899543346 (17) Diabetes ICD Codes: E11.9 - Type 2 diabetes mellitus without complications SNOMED: 41914375 (18) Colon adenocarcinoma ICD Codes: C18.9 - Malignant neoplasm of colon, unspecified SNOMED: 081591967 (19) Anoxic brain damage ICD Codes: G93.1 - Anoxic brain damage, not elsewhere classified SNOMED: 011439177 (20) Decubitus skin ulcer ICD Codes: L89.90 - Pressure ulcer of unspecified site, unspecified stage SNOMED: 182426486 (21) Aspiration into airway ICD Codes: T17.908A - Unspecified foreign body in respiratory tract, part unspecified causing other injury, initial encounter SNOMED: 504545017 Qualifiers: Qualified Codes: T17.908A - Unspecified foreign body in respiratory tract, part unspecified causing other injury, initial encounter (22) Abnormal LFTs ICD Codes: R94.5 - Abnormal results of liver function studies SNOMED: 288894625 Status: stable Assessment/Plan: 78-year-old female who is trach dependent who was brought in by alf for sepsis and found to have UTI and bacteremia. prolonged hospital course, multiple courses of antibiotics developed HCAP, then aspirated g tube contents and had a PEA arrest, coded x3, ROSC. Transferred to ICU #Cardiac arrest, septic shock. continue on pressors (norepinephrine, vasopressin, phenylephrine), monitor HR/BP , titrate down as tolerated to keep map >60 Adjust fio2 as needed repeat ABG and lactate. Lactate trending up Hold all antihypertensives Bicarb drip per renal Spoke with daughters heidi and Anika, updates provided. They want her to remain full code. Reviewed available imagining with them. Ethics consult placed. Pulm.crit consult for vent management and critical care Dr. Dejesus d/w RN # Vent dependent. providencia/acinetobacter pna, proteus uti, sepsis, leukocytosis, fevers, hx wounds per surgery management, + picc line, blood cultures remain negative. possible aspiration event and worsening pna on chest x -ray. Antibiotics per ID: - inhaled colistin, cefepime, zyvox, flagyl, levofloxacin, minocycline re-check cultures and follow up. blood cultures negative for 48 hours, urine culture negative, sputum culture growing Kleb pneumo. Will speak to ID reg antibiotics f/u on labs and abg poor prognosis d/w Dr. Goodwin d/w Dr. Dejesus -Vent management per pulmonary #?DIC. bleeding gums. dropping platelets. Will check coags. Monitor hemoglobin. #DAMASO- likely due to ATN. Stable today. continue to monitor urine output and renal function. Nephrology consult, Dr. Sommers. Renal dose all antibiotics. Will avoid nephrotoxic medication. monitor urine output. She is positive 4Ls. #hyponatremia- worsening . urine lytes. NS ordered per renal # Transaminitis - worsening, shock liver, Hepatitis panel negative. continue pressors. Monitor liver enzymes #Microcytic anemia- mixed anemia of chronic inflammation and iron deficiency. ferrous sulfate TID , transfused 1 uprbc 11/27. and another unit prbc 12/05. #Hypertension- now on pressors. Hold all antihypertensives #Decubitus ulcer. Managed by Dr. Hylton # tongue laceration, hematoma and edema, reduced by Dr. Hylton. Patient however continues to clench and bite down #Feeds via PEG: resume, however she has been unable to tolerate feeds due to residuals. #Seizure: phenytoin and keppra. Phonobarb #GOC: had a family meeting with daughters and POP Smiley. Extensive conversation reg goals of care and code status. Remains full code. I continue to meet with family on a daily basis. prognosis poor Critical care time spent: 40 minutes. >30 minutes spent doing advance care planning. Time of note may not reflect time of encounter. Subjective Date patient seen: Dec 14, 2018 ROS Limited/Unobtainable: Yes Allergies: Coded Allergies: Crayfish (Unverified Allergy, Unknown, 11/11/18) Uncoded Allergies: Crawfish (Allergy, Unknown, 11/09/18) Subjective obtunded on vent. Remains critical. Unable to start feeds due to residual from meds, bleeding from gums per RN, lips cyanotic. Remains on pressors. BP borderline. Objective Last 24 Hour Vital Signs Date Time Temp Pulse Resp B/P (MAP) Pulse Ox O2 Delivery O2 Flow Rate FiO2 12/14/18 08:00 97.4 77 26 85/23 (43) 100 12/14/18 08:00 85/23 12/14/18 08:00 Mechanical Ventilator 12/14/18 08:00 40 12/14/18 07:45 101/70 12/14/18 07:30 85/32 12/14/18 07:15 84/14 12/14/18 07:00 77 26 82/27 (45) 12/14/18 06:55 77 26 35 12/14/18 06:30 79 26 93/51 (65) 100 12/14/18 06:00 80 26 97/59 (72) 100 12/14/18 05:44 99/33 12/14/18 05:30 84 26 109/80 (90) 100 12/14/18 05:24 84 109/80 12/14/18 05:17 84 26 40 12/14/18 05:00 85 26 137/18 (57) 100 12/14/18 04:30 85 26 140/19 (59) 100 12/14/18 04:00 Mechanical Ventilator 12/14/18 04:00 40 12/14/18 04:00 86 12/14/18 04:00 96.8 86 26 142/29 (66) 12/14/18 03:30 86 26 40 12/14/18 03:30 87 21 144/34 (70) 100 12/14/18 03:00 87 26 102/16 (44) 100 12/14/18 02:30 88 26 138/54 (82) 100 12/14/18 02:00 88 26 138/52 (80) 100 12/14/18 01:30 89 26 135/47 (76) 100 12/14/18 01:25 89 26 40 12/14/18 01:09 136/41 12/14/18 01:00 89 26 136/41 (72) 100 12/14/18 00:30 90 26 135/43 (73) 99 12/14/18 00:00 97.4 91 26 137/44 (75) 100 12/14/18 00:00 92 26 100 Mechanical Ventilator 40 91 26 98 12/14/18 00:00 40 12/14/18 00:00 90 12/14/18 00:00 Mechanical Ventilator 12/13/18 23:30 91 26 132/43 (72) 100 12/13/18 23:30 91 23 40 12/13/18 23:00 92 26 129/41 (70) 100 12/13/18 22:30 93 26 124/38 (66) 100 12/13/18 22:00 94 26 120/43 (68) 100 12/13/18 21:30 90 26 116/36 (62) 100 12/13/18 21:30 94 26 40 9/25/19 21:00 98 26 79/33 (48) 98 12/13/18 20:42 99/46 12/13/18 20:33 98 83/42 12/13/18 20:30 90 26 99/46 (63) 100 12/13/18 20:00 99.6 98 26 83/42 (56) 98 12/13/18 20:00 Mechanical Ventilator 12/13/18 20:00 89 12/13/18 20:00 40 12/13/18 19:30 98 26 79/33 (48) 98 12/13/18 19:20 103 26 40 12/13/18 19:00 97 25 97/61 (73) 98 12/13/18 18:30 93 26 102/52 (69) 98 12/13/18 18:00 96 26 98/52 (67) 98 12/13/18 18:00 96 26 98/50 (66) 97 12/13/18 18:00 98/59 12/13/18 17:31 99 95/57 12/13/18 17:30 98 26 97/51 (66) 99 12/13/18 17:30 98 25 85/57 (66) 12/13/18 17:03 106 26 40 12/13/18 17:00 105 25 96/69 (78) 96 12/13/18 17:00 95/57 12/13/18 16:30 110 26 104/67 (79) 98 12/13/18 16:00 Mechanical Ventilator 12/13/18 16:00 99.8 111 26 98/62 (74) 100 12/13/18 16:00 104/50 12/13/18 16:00 110 12/13/18 16:00 70 12/13/18 15:30 114 26 99/58 (72) 97 12/13/18 15:07 117 26 40 12/13/18 15:00 115 26 100/50 (67) 98 12/13/18 15:00 99/58 12/13/18 14:30 116 26 105/38 (60) 98 12/13/18 14:08 98/53 12/13/18 14:00 114 26 97/55 (69) 100 12/13/18 13:39 123 91/54 12/13/18 13:30 115 26 98/53 (68) 100 12/13/18 13:05 122 26 96 Mechanical Ventilator 40 116 26 40 12/13/18 13:00 120 26 101/46 (64) 97 12/13/18 12:30 125 26 108/56 (73) 97 12/13/18 12:00 70 12/13/18 12:00 99.6 122 26 99/55 (70) 98 12/13/18 12:00 114 12/13/18 12:00 129/62 12/13/18 12:00 Mechanical Ventilator 12/13/18 11:14 103 26 100 Mechanical Ventilator 50 103 26 50 12/13/18 11:00 101 23 122/53 (76) 100 12/13/18 11:00 154/66 12/13/18 11:00 103 26 154/66 (95) 100 12/13/18 10:30 99 26 119/53 (75) 100 12/13/18 10:30 100 26 123/40 (67) 100 12/13/18 10:08 99.3 12/13/18 10:00 99 26 118/43 (68) 100 12/13/18 10:00 118/46 12/13/18 10:00 99 26 118/46 (70) 100 12/13/18 09:58 99 26 Mechanical Ventilator 50 12/13/18 09:30 99 26 119/43 (68) 100 12/13/18 09:30 98 26 120/43 (68) 100 12/13/18 09:00 98 26 120/47 (71) 100 12/13/18 09:00 98 26 119/45 (69) 99 12/13/18 09:00 120/47 Intake and Output 12/13/18 12/14/18 18:59 06:59 Intake Total 2145.2 ml 2860.725 ml Output Total 595 ml 0 ml Balance 1550.2 ml 2860.725 ml IV Total 2135.2 ml 2800.725 ml Tube Feeding 10 ml Other 60 ml Output Urine Total 35 ml 0 ml Gastric Drainage Total 560 ml Laboratory Tests 12/13/18 12:58: Arterial Blood pH 7.103*L, Arterial Blood Partial Pressure CO2 19.1*L, Arterial Blood Partial Pressure O2 119.9H, Arterial Blood HCO3 5.8*L, Arterial Blood Oxygen Saturation 97.2, Arterial Blood Base Excess -21.9*L, Harsh Test Positive 12/13/18 15:00: Urine Color Brown, Urine Appearance Cloudy, Urine pH 5, Urine Specific [place] 1.020, Urine Protein 3+H, Urine Glucose (UA) 1+H, Urine Ketones 1+H, Urine Blood 4+H, Urine Nitrite PositiveH, Urine Bilirubin 2+H, Urine Ictotest Negative , Urine Urobilinogen 1H, Urine Leukocyte Esterase 2+H, Urine RBC 15-20H, Urine WBC 20-30H, Urine Squamous Epithelial Cells Few, Urine Amorphous Sediment ManyH , Urine Bacteria ManyH, Urine Osmolality 303L, Urine Random Sodium 34 12/13/18 18:05: Lactic Acid Level 17.50H 12/14/18 04:00: Lactic Acid Level 17.50H, White Blood Count 26.2*H, Red Blood Count 2.77L, Hemoglobin 7.8L, Hematocrit 24.5L, Mean Corpuscular Volume 89, Mean Corpuscular Hemoglobin 28.1, Mean Corpuscular Hemoglobin Concent 31.7L, Red Cell Distribution Width 19.2H, Platelet Count 114L, Mean Platelet Volume 7.6, Neutrophils (%) (Auto) , Lymphocytes (%) (Auto) , Monocytes (%) (Auto) , Eosinophils (%) (Auto) , Basophils (%) (Auto) , Differential Total Cells Counted 100, Neutrophils % (Manual) 77H, Lymphocytes % (Manual) 5L, Monocytes % (Manual) 4, Eosinophils % (Manual) 0, Basophils % (Manual) 0, Band Neutrophils 14H, Platelet Estimate DecreasedL, Platelet Morphology Normal, Hypochromasia 1+ , Anisocytosis 1+, Sodium Level 121L, Potassium Level 5.1, Chloride Level 88L, Carbon Dioxide Level < 5*L, Blood Urea Nitrogen 42H, Creatinine 1.8H, Estimat Glomerular Filtration Rate , Glucose Level 135H, Calcium Level 7.6L, Total Bilirubin 2.6H, Direct Bilirubin 2.1H, Aspartate Amino Transf (AST/SGOT) 6692H, Alanine Aminotransferase (ALT/SGPT) 1620H, Alkaline Phosphatase 535H, Total Protein 4.6L, Albumin 1.3L, Globulin 3.3, Albumin/Globulin Ratio 0.4L Height (Feet): 5 Height (Inches): 8.00 Weight (Pounds): 230 Objective General Appearance: no apparent distress, other - unresponsive on vent EENT: PERRL/EOMI, other -, lower lip severely swollen, macroglossia however reduced by surgeon. cyanotic lips. Bleeding gums Neck: supple Cardiovascular: normal rate, regular rhythm, 1+ edema Respiratory/Chest: Rhonchi Abdomen: soft, obese, non distended Neurologic: unresponsive on vent Skin: Decubitus ulcers, cold to touch extremities Neftaly Walters M.D. Dec 14, 2018 09:10
--- NOTE | 2018-12-14 09:19 | NUR ---
NURSE NOTES: Notified Dr Walters in person regarding the Hgb of 7.8, the bleeding of the gums, and the high residual over night. Received order for PT, PTT, INR, fibrinogen and repeat ABG. NO blood transfusion ordered at this time. Patient blood pressure also continues to drop with lowest BP reading of 42/15 this morning. Patient now on max doses of vasopressin, phenylephrine and Levophed. Patient SpO2 monitor not reading correctly as the patient's fingers and ears are cold. When the sensor is able to read, the SpO2 is 100%. Patient HR 76, blood pressure 101/19 with levophed, phenylephrine and levophed on max dosages. Will continue to monitor.
--- NOTE | 2018-12-14 09:53 | NUR ---
RD ASSESSMENT & RECOMMENDATIONS SEE CARE ACTIVITY FOR COMPLETE ASSESSMENT DAILY ESTIMATED NEEDS: Needs based on Critical care, sepsis, wound 60kg adj 22-30 kcals/kg 6121-3447 total kcals 1.25-2 g protein/kg 75-120 g total protein Fluid per MD NUTRITION DIAGNOSIS: * Swallowing difficulty r/t resp status as evidenced by pt is vent dep via trach and PEG dep. * Increased kcal and pro needs r/t wound healing and sepsis as evidenced by pt w/ sacral, R heel wounds and wound within close proximity to trach stoma. CURRENT TF: Glucerna 1.2 @ 45ml/hr x18 hrs - HELD ENTERAL NUTRITION RECOMMENDATIONS: Glucerna 1.5 @ 53ml/hr x18 hrs + Prosource x1 daily to provide 954ml, 1431 kcal, 79g + 11g pro, 724ml free H2O FEED W/ HEMODYNAMIC STABILITY - Pt does not appear to be tolerating trophic feeds as she is having residuals of meds. - If medically appropriate, initiate TF @trophic feeds of 13ml/hr. Advance only when tolerating low rate. - HOB over 30 degrees/ flush per MD ADDITIONAL RECOMMENDATIONS: 1) CALIBRATED BED SCALE W/ ADDED P200 MATTRESS + PUMP 2) TF TO RUN A MAX OF 18 HRS/DAY W/ DILANTIN TID PER PHARMACY 3) ICU status (12/11), NPO w/ multiple episodes of high residuals. On pressors x3; monitor for stability to feeds 4) WOUND CARE: ADD CHAYITO BID + VIT C 250MG BID when tolerating TF 5) Monitor lytes, replete as needed .
[2018-12-14] MEDS: Lactulose 10gm/15ml UDC GT SCH ×3 (10:06→18:00)
[2018-12-14] MEDS: levETIRAcetam 500mg/5ml Liquid GT SCH (10:06)
[2018-12-14] MEDS: PHENobarbital Elixir 30mg/7.5ml GT SCH ×2 (10:07→18:00)
[2018-12-14] MEDS: Minocycline HCl 50mg cap ORAL SCH (10:07)
[2018-12-14] MEDS: Sennosides 8.6mg tab GT SCH (10:07)
--- NOTE | 2018-12-14 10:44 | General Progress Note ---
Assessment/Plan Status: stable Assessment/Plan: (1) Abnormal LFTs ICD Codes: R94.5 - Abnormal results of liver function studies SNOMED: 254171948 (2) Decubitus skin ulcer ICD Codes: L89.90 - Pressure ulcer of unspecified site, unspecified stage SNOMED: 050255456 (3) Protein calorie malnutrition ICD Codes: E46 - Unspecified protein-calorie malnutrition SNOMED: 178369885 (4) Colon adenocarcinoma ICD Codes: C18.9 - Malignant neoplasm of colon, unspecified SNOMED: 530727556 (5) Sepsis ICD Codes: A41.9 - Sepsis, unspecified organism SNOMED: 28904482 (6) Tracheostomy dependence ICD Codes: Z93.0 - Tracheostomy status SNOMED: 200538126 (7) Gastrostomy in place (8) shock liver . Assessment/Plan Assessment - Iron deficiency anemia - abnormal LFT - ? meds, passive congestion - dysphagia, s/p GT - Resp, failure, s/p Trach - hepatitis panel negative Recommendations - TF , elevated residuals>>> will restart slowly -s/p code blue on pressors - Monitor LFT>> shock liver - follow CBC>> transfuse one unit PRBC - Conservative approach given poor health- -neg stool ob Subjective ROS Limited/Unobtainable: No Allergies: Coded Allergies: Crayfish (Unverified Allergy, Unknown, 11/11/18) Uncoded Allergies: Crawfish (Allergy, Unknown, 11/09/18) Subjective fever last night had BM Objective Last 24 Hour Vital Signs Date Time Temp Pulse Resp B/P (MAP) Pulse Ox O2 Delivery O2 Flow Rate FiO2 12/14/18 08:40 77 26 35 12/14/18 08:00 97.4 77 26 85/23 (43) 100 12/14/18 08:00 85/23 12/14/18 08:00 Mechanical Ventilator 12/14/18 08:00 40 12/14/18 07:45 101/70 12/14/18 07:30 85/32 12/14/18 07:15 84/14 12/14/18 07:00 77 26 82/27 (45) 12/14/18 06:55 77 26 35 12/14/18 06:30 79 26 93/51 (65) 100 12/14/18 06:00 80 26 97/59 (72) 100 12/14/18 05:44 99/33 12/14/18 05:30 84 26 109/80 (90) 100 12/14/18 05:24 84 109/80 12/14/18 05:17 84 26 40 12/14/18 05:00 85 26 137/18 (57) 100 12/14/18 04:30 85 26 140/19 (59) 100 12/14/18 04:00 Mechanical Ventilator 12/14/18 04:00 40 12/14/18 04:00 86 12/14/18 04:00 96.8 86 26 142/29 (66) 12/14/18 03:30 86 26 40 12/14/18 03:30 87 21 144/34 (70) 100 12/14/18 03:00 87 26 102/16 (44) 100 12/14/18 02:30 88 26 138/54 (82) 100 12/14/18 02:00 88 26 138/52 (80) 100 12/14/18 01:30 89 26 135/47 (76) 100 12/14/18 01:25 89 26 40 12/14/18 01:09 136/41 12/14/18 01:00 89 26 136/41 (72) 100 12/14/18 00:30 90 26 135/43 (73) 99 12/14/18 00:00 97.4 91 26 137/44 (75) 100 12/14/18 00:00 92 26 100 Mechanical Ventilator 40 91 26 98 12/14/18 00:00 40 12/14/18 00:00 90 12/14/18 00:00 Mechanical Ventilator 12/13/18 23:30 91 26 132/43 (72) 100 12/13/18 23:30 91 23 40 12/13/18 23:00 92 26 129/41 (70) 100 12/13/18 22:30 93 26 124/38 (66) 100 12/13/18 22:00 94 26 120/43 (68) 100 12/13/18 21:30 90 26 116/36 (62) 100 12/13/18 21:30 94 26 40 12/13/18 21:00 98 26 79/33 (48) 98 12/13/18 20:42 99/46 12/13/18 20:33 98 83/42 12/13/18 20:30 90 26 99/46 (63) 100 12/13/18 20:00 99.6 98 26 83/42 (56) 98 12/13/18 20:00 Mechanical Ventilator 12/13/18 20:00 89 12/13/18 20:00 40 12/13/18 19:30 98 26 79/33 (48) 98 12/13/18 19:20 103 26 40 12/13/18 19:00 97 25 97/61 (73) 98 12/13/18 18:30 93 26 102/52 (69) 98 12/13/18 18:00 96 26 98/52 (67) 98 12/13/18 18:00 96 26 98/50 (66) 97 12/13/18 18:00 98/59 12/13/18 17:31 99 95/57 12/13/18 17:30 98 26 97/51 (66) 99 12/13/18 17:30 98 25 85/57 (66) 12/13/18 17:03 106 26 40 12/13/18 17:00 105 25 96/69 (78) 96 12/13/18 17:00 95/57 12/13/18 16:30 110 26 104/67 (79) 98 12/13/18 16:00 Mechanical Ventilator 12/13/18 16:00 99.8 111 26 98/62 (74) 100 12/13/18 16:00 104/50 12/13/18 16:00 110 12/13/18 16:00 70 12/13/18 15:30 114 26 99/58 (72) 97 12/13/18 15:07 117 26 40 12/13/18 15:00 115 26 100/50 (67) 98 12/13/18 15:00 99/58 12/13/18 14:30 116 26 105/38 (60) 98 12/13/18 14:08 98/53 12/13/18 14:00 114 26 97/55 (69) 100 12/13/18 13:39 123 91/54 12/13/18 13:30 115 26 98/53 (68) 100 12/13/18 13:05 122 26 96 Mechanical Ventilator 40 116 26 40 12/13/18 13:00 120 26 101/46 (64) 97 12/13/18 12:30 125 26 108/56 (73) 97 12/13/18 12:00 70 12/13/18 12:00 99.6 122 26 99/55 (70) 98 12/13/18 12:00 114 12/13/18 12:00 129/62 12/13/18 12:00 Mechanical Ventilator 12/13/18 11:14 103 26 100 Mechanical Ventilator 50 103 26 50 12/13/18 11:00 101 23 122/53 (76) 100 12/13/18 11:00 154/66 12/13/18 11:00 103 26 154/66 (95) 100 Intake and Output 12/13/18 12/14/18 19:00 07:00 Intake Total 2047.5 ml 2838.525 ml Output Total 395 ml 0 ml Balance 1652.5 ml 2838.525 ml IV Total 2037.5 ml 2778.525 ml Tube Feeding 10 ml Other 60 ml Output Urine Total 35 ml 0 ml Gastric Drainage Total 360 ml Laboratory Tests 12/13/18 12:58: Arterial Blood pH 7.103*L, Arterial Blood Partial Pressure CO2 19.1*L, Arterial Blood Partial Pressure O2 119.9H, Arterial Blood HCO3 5.8*L, Arterial Blood Oxygen Saturation 97.2, Arterial Blood Base Excess -21.9*L, Harsh Test Positive 12/13/18 15:00: Urine Color Brown, Urine Appearance Cloudy, Urine pH 5, Urine Specific [place] 1.020, Urine Protein 3+H, Urine Glucose (UA) 1+H, Urine Ketones 1+H, Urine Blood 4+H, Urine Nitrite PositiveH, Urine Bilirubin 2+H, Urine Ictotest Negative , Urine Urobilinogen 1H, Urine Leukocyte Esterase 2+H, Urine RBC 15-20H, Urine WBC 20-30H, Urine Squamous Epithelial Cells Few, Urine Amorphous Sediment ManyH , Urine Bacteria ManyH, Urine Osmolality 303L, Urine Random Sodium 34 12/13/18 18:05: Lactic Acid Level 17.50H 12/14/18 04:00: Lactic Acid Level 17.50H, White Blood Count 26.2*H, Red Blood Count 2.77L, Hemoglobin 7.8L, Hematocrit 24.5L, Mean Corpuscular Volume 89, Mean Corpuscular Hemoglobin 28.1, Mean Corpuscular Hemoglobin Concent 31.7L, Red Cell Distribution Width 19.2H, Platelet Count 114L, Mean Platelet Volume 7.6, Neutrophils (%) (Auto) , Lymphocytes (%) (Auto) , Monocytes (%) (Auto) , Eosinophils (%) (Auto) , Basophils (%) (Auto) , Differential Total Cells Counted 100, Neutrophils % (Manual) 77H, Lymphocytes % (Manual) 5L, Monocytes % (Manual) 4, Eosinophils % (Manual) 0, Basophils % (Manual) 0, Band Neutrophils 14H, Platelet Estimate DecreasedL, Platelet Morphology Normal, Hypochromasia 1+ , Anisocytosis 1+, Sodium Level 121L, Potassium Level 5.1, Chloride Level 88L, Carbon Dioxide Level < 5*L, Blood Urea Nitrogen 42H, Creatinine 1.8H, Estimat Glomerular Filtration Rate , Glucose Level 135H, Calcium Level 7.6L, Total Bilirubin 2.6H, Direct Bilirubin 2.1H, Aspartate Amino Transf (AST/SGOT) 6692H, Alanine Aminotransferase (ALT/SGPT) 1620H, Alkaline Phosphatase 535H, Total Protein 4.6L, Albumin 1.3L, Globulin 3.3, Albumin/Globulin Ratio 0.4L 12/14/18 10:05: Arterial Blood pH < 6.716*L, Arterial Blood Partial Pressure CO2 19.8*L, Arterial Blood Partial Pressure O2 106.1H, Arterial Blood HCO3 [Pending], Arterial Blood Oxygen Saturation 94.1L, Arterial Blood Base Excess [Pending], Harsh Test Positive Height (Feet): 5 Height (Inches): 8.00 Weight (Pounds): 230 General Appearance: lethargic EENT: PERRL/EOMI Neck: supple Cardiovascular: normal rate Respiratory/Chest: decreased breath sounds Abdomen: normal bowel sounds, non tender, soft Extremities: non-tender Casper Humphries MD Dec 14, 2018 10:44
[2018-12-14] MEDS ORDERED: D5NS 1,000 ML IV SCH (11:00)
--- NOTE | 2018-12-14 11:15 | NUR ---
NURSE NOTES: Left message on Dr Dejesus emergency line regarding ABG result. Awaiting call back. Addendum: 12/14/18 at 1152 by Samantha Dominguez RN Spoke with Dr Humphries in person. Provided update on patient's condition over night. Reported the bleeding of the gums and Hgb 7.8
--- NOTE | 2018-12-14 12:00 | NUR ---
RESPIRATORY NOTE: Received Dr. Dejesus's order to increase RR to 30bpm. Waiting for CHARLEE Singh to give pt bicarbonates drips to change the settings (since PCO2 in ABG result is low). CHARLEE Singh will let me know when she start the bicarbonates. Continue to monitor pt in the meantime.
[2018-12-14] MEDS ORDERED: Sodium Bicarbonate 50ml Carp ONE ×2 (12:36→13:00)
[2018-12-14] MEDS ORDERED: Calcium Chloride 10% 10ml carpuject IVP ONE ×2 (12:36→13:00)
--- NOTE | 2018-12-14 12:45 | NUR ---
CODE BLUE: RESPIRATORY NOTE: At 1235 patient had no pulse. Code geovany called at 1236. Took pt off vent and bagging pt via ambu bag 15L 100%, CPR initiated per RT Nadeem. ROSC obtained at 1244. Placed pt back on the vent, increased rate to 30bpm, and FiO2 to 100% per Dr. Dejesus's order. Suctioned small amount of thick brown red bloody secretions without incidents. Family member at the bedside. CHARLEE Singh made aware. Will continue to monitor pt.
--- NOTE | 2018-12-14 12:45 | NUR ---
NURSE NOTES: At 1220 patient showed bradycardia on media monitor. Left message for Dr Walters and Dr Dejesus on emergency lines. Dr Dejesus called back at 1230 and ordered one dose Atropine to be given. Medication administered at 1231. At 1235 patient had no pulse. Compressions initiated and CPR initiated following ACLS guidelines. ROSC obtained at 1244. Daughter Treasure at the bedside.
--- NOTE | 2018-12-14 12:45 | Nephrology Progress Note ---
Assessment/Plan Problem List: (1) Fever (2) Diabetes (3) Seizure disorder (4) HTN (hypertension) (5) Tracheostomy dependence (6) Anoxic brain damage (7) Hyponatremia Plan #Acute kidney injury likely ATN due to shock - continue with pressors to maintain MAP over 65 - continue bicarb drip at 100cc/hr - monitor ABG - monitor UOP - strict I&Os #hyponatremia- worsening- 130-> 126-- - check urine osm and urine sodium - NS at 75cc /hr - change to NS flushes for meds - Abx in NS - monitor BMP #H/o HTN- now hypotensive - hold antihypertensive - pressors as above Subjective Subjective on VENT remains in ICU on 3 pressors worsening acidosis noted back on bicarb drip Objective Objective Last 24 Hour Vital Signs Date Time Temp Pulse Resp B/P (MAP) Pulse Ox O2 Delivery O2 Flow Rate FiO2 12/14/18 11:45 145/91 12/14/18 11:17 144/70 12/14/18 10:37 74 26 35 12/14/18 10:37 74 26 98 Mechanical Ventilator 74 26 97 12/14/18 10:30 74 26 152/96 (114) 100 12/14/18 10:00 77 26 107/78 (88) 98 12/14/18 09:30 77 26 116/57 (76) 99 12/14/18 09:00 76 26 83/47 (59) 12/14/18 08:40 77 26 35 12/14/18 08:30 76 26 81/58 (66) 12/14/18 08:00 97.4 77 26 85/23 (43) 100 12/14/18 08:00 85/23 12/14/18 08:00 Mechanical Ventilator 12/14/18 08:00 40 12/14/18 07:45 101/70 12/14/18 07:30 85/32 12/14/18 07:15 84/14 12/14/18 07:00 77 26 82/27 (45) 12/14/18 06:55 77 26 35 12/14/18 06:30 79 26 93/51 (65) 100 12/14/18 06:00 80 26 97/59 (72) 100 12/14/18 05:44 99/33 12/14/18 05:30 84 26 109/80 (90) 100 12/14/18 05:24 84 109/80 12/14/18 05:17 84 26 40 12/14/18 05:00 85 26 137/18 (57) 100 12/14/18 04:30 85 26 140/19 (59) 100 12/14/18 04:00 Mechanical Ventilator 12/14/18 04:00 40 12/14/18 04:00 86 12/14/18 04:00 96.8 86 26 142/29 (66) 12/14/18 03:30 86 26 40 12/14/18 03:30 87 21 144/34 (70) 100 12/14/18 03:00 87 26 102/16 (44) 100 12/14/18 02:30 88 26 138/54 (82) 100 12/14/18 02:00 88 26 138/52 (80) 100 12/14/18 01:30 89 26 135/47 (76) 100 12/14/18 01:25 89 26 40 12/14/18 01:09 136/41 12/14/18 01:00 89 26 136/41 (72) 100 12/14/18 00:30 90 26 135/43 (73) 99 12/14/18 00:00 97.4 91 26 137/44 (75) 100 12/14/18 00:00 92 26 100 Mechanical Ventilator 40 91 26 98 12/14/18 00:00 40 12/14/18 00:00 90 12/14/18 00:00 Mechanical Ventilator 12/13/18 23:30 91 26 132/43 (72) 100 12/13/18 23:30 91 23 40 12/13/18 23:00 92 26 129/41 (70) 100 12/13/18 22:30 93 26 124/38 (66) 100 12/13/18 22:00 94 26 120/43 (68) 100 12/13/18 21:30 90 26 116/36 (62) 100 12/13/18 21:30 94 26 40 12/13/18 21:00 98 26 79/33 (48) 98 12/13/18 20:42 99/46 12/13/18 20:33 98 83/42 12/13/18 20:30 90 26 99/46 (63) 100 12/13/18 20:00 99.6 98 26 83/42 (56) 98 12/13/18 20:00 Mechanical Ventilator 12/13/18 20:00 89 12/13/18 20:00 40 12/13/18 19:30 98 26 79/33 (48) 98 12/13/18 19:20 103 26 40 12/13/18 19:00 97 25 97/61 (73) 98 12/13/18 18:30 93 26 102/52 (69) 98 12/13/18 18:00 96 26 98/52 (67) 98 12/13/18 18:00 96 26 98/50 (66) 97 12/13/18 18:00 98/59 12/13/18 17:31 99 95/57 12/13/18 17:30 98 26 97/51 (66) 99 12/13/18 17:30 98 25 85/57 (66) 12/13/18 17:03 106 26 40 12/13/18 17:00 105 25 96/69 (78) 96 12/13/18 17:00 95/57 12/13/18 16:30 110 26 104/67 (79) 98 12/13/18 16:00 Mechanical Ventilator 12/13/18 16:00 99.8 111 26 98/62 (74) 100 12/13/18 16:00 104/50 12/13/18 16:00 110 12/13/18 16:00 70 12/13/18 15:30 114 26 99/58 (72) 97 12/13/18 15:07 117 26 40 12/13/18 15:00 115 26 100/50 (67) 98 12/13/18 15:00 99/58 12/13/18 14:30 116 26 105/38 (60) 98 12/13/18 14:08 98/53 12/13/18 14:00 114 26 97/55 (69) 100 12/13/18 13:39 123 91/54 12/13/18 13:30 115 26 98/53 (68) 100 12/13/18 13:05 122 26 96 Mechanical Ventilator 40 116 26 40 12/13/18 13:00 120 26 101/46 (64) 97 Intake and Output 12/13/18 12/14/18 19:00 07:00 Intake Total 2047.5 ml 2838.525 ml Output Total 395 ml 0 ml Balance 1652.5 ml 2838.525 ml IV Total 2037.5 ml 2778.525 ml Tube Feeding 10 ml Other 60 ml Output Urine Total 35 ml 0 ml Gastric Drainage Total 360 ml Laboratory Tests 12/13/18 12:58: Arterial Blood pH 7.103*L, Arterial Blood Partial Pressure CO2 19.1*L, Arterial Blood Partial Pressure O2 119.9H, Arterial Blood HCO3 5.8*L, Arterial Blood Oxygen Saturation 97.2, Arterial Blood Base Excess -21.9*L, Harsh Test Positive 12/13/18 15:00: Urine Color Brown, Urine Appearance Cloudy, Urine pH 5, Urine Specific [place] 1.020, Urine Protein 3+H, Urine Glucose (UA) 1+H, Urine Ketones 1+H, Urine Blood 4+H, Urine Nitrite PositiveH, Urine Bilirubin 2+H, Urine Ictotest Negative , Urine Urobilinogen 1H, Urine Leukocyte Esterase 2+H, Urine RBC 15-20H, Urine WBC 20-30H, Urine Squamous Epithelial Cells Few, Urine Amorphous Sediment ManyH , Urine Bacteria ManyH, Urine Osmolality 303L, Urine Random Sodium 34 12/13/18 18:05: Lactic Acid Level 17.50H 12/14/18 04:00: Lactic Acid Level 17.50H, White Blood Count 26.2*H, Red Blood Count 2.77L, Hemoglobin 7.8L, Hematocrit 24.5L, Mean Corpuscular Volume 89, Mean Corpuscular Hemoglobin 28.1, Mean Corpuscular Hemoglobin Concent 31.7L, Red Cell Distribution Width 19.2H, Platelet Count 114L, Mean Platelet Volume 7.6, Neutrophils (%) (Auto) , Lymphocytes (%) (Auto) , Monocytes (%) (Auto) , Eosinophils (%) (Auto) , Basophils (%) (Auto) , Differential Total Cells Counted 100, Neutrophils % (Manual) 77H, Lymphocytes % (Manual) 5L, Monocytes % (Manual) 4, Eosinophils % (Manual) 0, Basophils % (Manual) 0, Band Neutrophils 14H, Platelet Estimate DecreasedL, Platelet Morphology Normal, Hypochromasia 1+ , Anisocytosis 1+, Sodium Level 121L, Potassium Level 5.1, Chloride Level 88L, Carbon Dioxide Level < 5*L, Blood Urea Nitrogen 42H, Creatinine 1.8H, Estimat Glomerular Filtration Rate , Glucose Level 135H, Calcium Level 7.6L, Total Bilirubin 2.6H, Direct Bilirubin 2.1H, Aspartate Amino Transf (AST/SGOT) 6692H, Alanine Aminotransferase (ALT/SGPT) 1620H, Alkaline Phosphatase 535H, Total Protein 4.6L, Albumin 1.3L, Globulin 3.3, Albumin/Globulin Ratio 0.4L 12/14/18 10:05: Arterial Blood pH < 6.716*L, Arterial Blood Partial Pressure CO2 19.8*L, Arterial Blood Partial Pressure O2 106.1H, Arterial Blood HCO3 , Arterial Blood Oxygen Saturation 94.1L, Arterial Blood Base Excess , Harsh Test Positive 12/14/18 10:30: Prothrombin Time [Pending], Prothromb Time International Ratio [Pending], Activated Partial Thromboplast Time [Pending], Fibrinogen [Pending], Lactic Acid Level 16.50H Height (Feet): 5 Height (Inches): 8.00 Weight (Pounds): 230 Objective General Appearance: no apparent distress, obtunded , + trach Neck: non-tender, normal alignment, supple, normal inspection, no JVD Rhythm: NSR Cardiovascular: normal peripheral pulses, tachycardia Respiratory/Chest: biltateral faint wheezes Abdomen: normal bowel sounds, non tender, soft, + PEG Diana Sommers M.D. Dec 14, 2018 12:45
--- NOTE | 2018-12-14 12:52 | NUR ---
Social Service Note SW, Dr. Walters, Dr. Dejesus met with patient's dgt Treasure Ray during code blue. Dgt continues to request full code with no electric shock. Emotional support provided.
[2018-12-14] MEDS ORDERED: Sodium Bicarbonate 150 ML in D5W 1000ml 1,000 ML IV SCH (13:00)
--- NOTE | 2018-12-14 13:06 | NUR ---
NURSE NOTES: Patient showed bradycardia on the yarn rewinder 26 beats per minute. Code blue called. Chest compression initiated at 1301. At 1302 patient found to have a bounding, slow pulse felt on palpitation of the femoral artery. ACLS guidelines followed. Code complete at 1306 with ROSC at 1302. Daughter Treasure remains at the bedside.
--- NOTE | 2018-12-14 13:06 | NUR ---
CODE BLUE: RESPIRATORY NOTE: Patient showed bradycardia then asystolic. Code blue called at 1300. Took pt of the vent and start bagging via ambu bag 15L 100% per RT Lydia, Chest compression initiated at 1301 per RT Nadeem . Code complete at 1306 with ROSC at 1302 ( bounding, slow pulse felt on palpitation of the femoral artery). Daughter Treasure remains at the bedside. Pt is back on vent with the same previous vent settings. FiO2 still at 100% post ruth armenta, will titrate FiO2 down later. CHARLEE Singh aware. Will continue to monitor.
[2018-12-14 13:14] LABS: INR 6.2 (0.9-1.1); PARTIAL THROMBOPLASTIN TIME > 150 SEC (23-33)
[2018-12-14] MEDS: Phenylephrine 100 MG in D5W 500ml 490 ML IV SCH (13:33)
--- NOTE | 2018-12-14 13:41 | NUR ---
NURSE NOTES: Blood transfusion held at this time per Dr Walters. Patient also has no other IV access.
--- NOTE | 2018-12-14 14:01 | Pulmonolgy Critical Care Note ---
Critical Care - Asmt/Plan Problems: (1) Sepsis (2) Tracheostomy dependence (3) Ventilator dependence (4) MRSA (methicillin resistant staphylococcus aureus) pneumonia (5) UTI (urinary tract infection) (6) Cardiac arrest (7) Anoxic brain damage (8) Tongue abnormality (9) Seizure disorder (10) Diabetes (11) HTN (hypertension) (12) Fever (13) Decubitus skin ulcer (14) Protein calorie malnutrition (15) DAMASO (acute kidney injury) (16) High anion gap metabolic acidosis (17) Lactic acid acidosis Assessment/Plan: Pt actively dying S/P CODE BLUE x 2 and ROSC this am Very tenuous, family aware D/W RENAL, 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 They are appreciative of the medical teams efforts and understand the patient is unlikely to survive CCM 80 min D/W Dr. Sommers, Dr. Walters, family, RN's and RT @ bedside Critical Care - Objective Last 24 Hour Vital Signs Date Time Temp Pulse Resp B/P (MAP) Pulse Ox O2 Delivery O2 Flow Rate FiO2 12/14/18 13:33 82 131/55 12/14/18 12:45 90 30 100 12/14/18 11:45 145/91 12/14/18 11:17 144/70 12/14/18 10:37 74 26 35 12/14/18 10:37 74 26 98 Mechanical Ventilator 74 26 97 12/14/18 10:30 74 26 152/96 (114) 100 12/14/18 10:00 77 26 107/78 (88) 98 12/14/18 09:30 77 26 116/57 (76) 99 12/14/18 09:00 76 26 83/47 (59) 12/14/18 08:40 77 26 35 12/14/18 08:30 76 26 81/58 (66) 12/14/18 08:00 97.4 77 26 85/23 (43) 100 12/14/18 08:00 85/23 9/26/19 08:00 Mechanical Ventilator 12/14/18 08:00 40 12/14/18 07:45 101/70 12/14/18 07:30 85/32 12/14/18 07:15 84/14 12/14/18 07:00 77 26 82/27 (45) 12/14/18 06:55 77 26 35 12/14/18 06:30 79 26 93/51 (65) 100 12/14/18 06:00 80 26 97/59 (72) 100 12/14/18 05:44 99/33 12/14/18 05:30 84 26 109/80 (90) 100 12/14/18 05:24 84 109/80 12/14/18 05:17 84 26 40 12/14/18 05:00 85 26 137/18 (57) 100 12/14/18 04:30 85 26 140/19 (59) 100 12/14/18 04:00 Mechanical Ventilator 12/14/18 04:00 40 12/14/18 04:00 86 12/14/18 04:00 96.8 86 26 142/29 (66) 12/14/18 03:30 86 26 40 12/14/18 03:30 87 21 144/34 (70) 100 12/14/18 03:00 87 26 102/16 (44) 100 12/14/18 02:30 88 26 138/54 (82) 100 12/14/18 02:00 88 26 138/52 (80) 100 12/14/18 01:30 89 26 135/47 (76) 100 12/14/18 01:25 89 26 40 12/14/18 01:09 136/41 12/14/18 01:00 89 26 136/41 (72) 100 12/14/18 00:30 90 26 135/43 (73) 99 12/14/18 00:00 97.4 91 26 137/44 (75) 100 12/14/18 00:00 92 26 100 Mechanical Ventilator 40 91 26 98 12/14/18 00:00 40 12/14/18 00:00 90 12/14/18 00:00 Mechanical Ventilator 12/13/18 23:30 91 26 132/43 (72) 100 12/13/18 23:30 91 23 40 12/13/18 23:00 92 26 129/41 (70) 100 12/13/18 22:30 93 26 124/38 (66) 100 12/13/18 22:00 94 26 120/43 (68) 100 12/13/18 21:30 90 26 116/36 (62) 100 12/13/18 21:30 94 26 40 12/13/18 21:00 98 26 79/33 (48) 98 12/13/18 20:42 99/46 12/13/18 20:33 98 83/42 12/13/18 20:30 90 26 99/46 (63) 100 12/13/18 20:00 99.6 98 26 83/42 (56) 98 12/13/18 20:00 Mechanical Ventilator 12/13/18 20:00 89 12/13/18 20:00 40 12/13/18 19:30 98 26 79/33 (48) 98 12/13/18 19:20 103 26 40 12/13/18 19:00 97 25 97/61 (73) 98 12/13/18 18:30 93 26 102/52 (69) 98 12/13/18 18:00 96 26 98/52 (67) 98 12/13/18 18:00 96 26 98/50 (66) 97 12/13/18 18:00 98/59 12/13/18 17:31 99 95/57 12/13/18 17:30 98 26 97/51 (66) 99 12/13/18 17:30 98 25 85/57 (66) 12/13/18 17:03 106 26 40 12/13/18 17:00 105 25 96/69 (78) 96 12/13/18 17:00 95/57 12/13/18 16:30 110 26 104/67 (79) 98 12/13/18 16:00 Mechanical Ventilator 12/13/18 16:00 99.8 111 26 98/62 (74) 100 12/13/18 16:00 104/50 12/13/18 16:00 110 12/13/18 16:00 70 12/13/18 15:30 114 26 99/58 (72) 97 12/13/18 15:07 117 26 40 12/13/18 15:00 115 26 100/50 (67) 98 12/13/18 15:00 99/58 12/13/18 14:30 116 26 105/38 (60) 98 12/13/18 14:08 98/53 12/13/18 14:00 114 26 97/55 (69) 100 Status: other - non-responsive Condition: critical HEENT: other - macroglossia Neck: trach Lungs: rhonchi Heart: HR/BP unstable Abdomen: soft, non-tender, active bowel sounds, feeding tube Extremities: edema - 1-2+ Decubiti: location - sacral, stage - 4 Micro: Microbiology Date/Time Source Procedure Growth Status 12/11/18 16:40 Blood Blood Culture - Preliminary NO GROWTH AFTER 48 HOURS Resulted 12/11/18 14:30 Blood Blood Culture - Preliminary NO GROWTH AFTER 48 HOURS Resulted 12/13/18 15:00 Urine,Clean Catch Urine Culture - Preliminary NO GROWTH Resulted Accucheck: 200 Blood Sugars: BS not controlled Critical Care - Subjective ROS Limited/Unobtainable: Yes ICU Day: 5 Interval Events: 6.7100/0 PEA/garcia arrest x 2 S/P ROSC Family aware of poor prognosis and leaning towards withdrawing care but not ready Unsafe for HD I coded pt [id number] S/P EPIx2, HCO3x1, ATRx1, CaGluc --> ROSC Condition: critical IV Access: PICC EKG Rhythm: Sinus Rhythm FI02: 100 Vent Support Breath Rate: 30 Vent Support Mode: AC Vent Tidal Volume: 600 Sputum Amount: Small PEEP: 5.0 PIP: 43 Secretions: small Fluids: NSHCO3-@100 Drips: NE, JENNI, VASO Tube Feeding Amount: 5 I&O: Intake and Output 12/13/18 12/14/18 19:00 07:00 Intake Total 2047.5 ml 2838.525 ml Output Total 395 ml 0 ml Balance 1652.5 ml 2838.525 ml IV Total 2037.5 ml 2778.525 ml Tube Feeding 10 ml Other 60 ml Output Urine Total 35 ml 0 ml Gastric Drainage Total 360 ml Subjective: SOWMYA CXR: scattered b infiltrates Labs: Laboratory Tests Test 12/13/18 15:00 12/13/18 18:05 12/14/18 04:00 12/14/18 10:05 Urine Color Brown Urine Appearance Cloudy Urine pH 5 (4.5-8.0) Urine Specific [place] 1.020 (1.005-1.035) Urine Protein 3+ (NEGATIVE) H Urine Glucose (UA) 1+ (NEGATIVE) H Urine Ketones 1+ (NEGATIVE) H Urine Blood 4+ (NEGATIVE) H Urine Nitrite Positive (NEGATIVE) H Urine Bilirubin 2+ (NEGATIVE) H Urine Ictotest Negative (NEGATIVE) Urine Urobilinogen 1 MG/DL (0.0-1.0) H Urine Leukocyte Esterase 2+ (NEGATIVE) H Urine RBC 15-20 /HPF (0 - 2) H Urine WBC 20-30 /HPF (0 - 2) H Urine Squamous Epithelial Cells Few /LPF (NONE/OCC) Urine Amorphous Sediment Many /LPF (NONE) H Urine Bacteria Many /HPF (NONE) H Urine Osmolality 303 mOsm/kg (429-449) L Urine Random Sodium 34 mmol/L (20-110) Lactic Acid Level 17.50 mmol/L (0.4-2.0) H 17.50 mmol/L (0.4-2.0) H White Blood Count 26.2 K/UL (4.8-10.8) *H Red Blood Count 2.77 M/UL (4.20-5.40) L Hemoglobin 7.8 G/DL (12.0-16.0) L Hematocrit 24.5 % (37.0-47.0) L Mean Corpuscular Volume 89 FL (80-99) Mean Corpuscular Hemoglobin 28.1 PG (27.0-31.0) Mean Corpuscular Hemoglobin Concent 31.7 G/DL (32.0-36.0) L Red Cell Distribution Width 19.2 % (11.6-14.8) H Platelet Count 114 K/UL (150-450) L Mean Platelet Volume 7.6 FL (6.5-10.1) Neutrophils (%) (Auto) % (45.0-75.0) Lymphocytes (%) (Auto) % (20.0-45.0) Monocytes (%) (Auto) % (1.0-10.0) Eosinophils (%) (Auto) % (0.0-3.0) Basophils (%) (Auto) % (0.0-2.0) Differential Total Cells Counted 100 Neutrophils % (Manual) 77 % (45-75) H Lymphocytes % (Manual) 5 % (20-45) L Monocytes % (Manual) 4 % (1-10) Eosinophils % (Manual) 0 % (0-3) Basophils % (Manual) 0 % (0-2) Band Neutrophils 14 % (0-8) H Platelet Estimate Decreased L Platelet Morphology Normal Hypochromasia 1+ Anisocytosis 1+ Sodium Level 121 MMOL/L (136-145) L Potassium Level 5.1 MMOL/L (3.5-5.1) Chloride Level 88 MMOL/L (98-107) L Carbon Dioxide Level < 5 MMOL/L (21-32) *L Blood Urea Nitrogen 42 mg/dL (7-18) H Creatinine 1.8 MG/DL (0.55-1.30) H Estimat Glomerular Filtration Rate mL/min (>60) Glucose Level 135 MG/DL (74-106) H Calcium Level 7.6 MG/DL (8.5-10.1) L Total Bilirubin 2.6 MG/DL (0.2-1.0) H Direct Bilirubin 2.1 MG/DL (0.0-0.3) H Aspartate Amino Transf (AST/SGOT) 6692 U/L (15-37) H Alanine Aminotransferase (ALT/SGPT) 1620 U/L (12-78) H Alkaline Phosphatase 535 U/L (46-116) H Total Protein 4.6 G/DL (6.4-8.2) L Albumin 1.3 G/DL (3.4-5.0) L Globulin 3.3 g/dL Albumin/Globulin Ratio 0.4 (1.0-2.7) L Arterial Blood pH < 6.716 (7.350-7.450) Arterial Blood Partial Pressure CO2 19.8 mmHg (35.0-45.0) *L Arterial Blood Partial Pressure O2 106.1 mmHg (75.0-100.0) H Arterial Blood HCO3 mmol/L (22.0-26.0) Arterial Blood Oxygen Saturation 94.1 % (95-100) L Arterial Blood Base Excess (-2-2) Harsh Test Positive Test 12/14/18 10:30 Prothrombin Time 59.4 SEC (9.30-11.50) H Prothromb Time International Ratio 6.2 (0.9-1.1) *H Activated Partial Thromboplast Time > 150 SEC (23-33) *H Fibrinogen 269 mg/dL (200-400) Lactic Acid Level 16.50 mmol/L (0.66-2.22) H Balbir Dejesus MD Dec 14, 2018 14:01
[2018-12-14] MEDS: Norepinephrine Bitartrate 16 MG in D5W 500ml 484 ML IV SCH ×2 (14:07→16:47)
--- NOTE | 2018-12-14 14:37 | Hematology/Onc Progress Note ---
Assessment/Plan Assessment/Plan # Anemia of chronic disease due to underlying chronic medical issues, multifactorial --> Anemia workup has been reviewed and cw acd --> No evidence of hemolysis is noted, peripheral smear has been reviewed --> Hgb goal >7. Transfuse prn. --> hgb trend 9-->8-->7.5-->9.3->8.6-->8.4-->8.7->7.6-->6.6-->7.6-->8.8--8->8.7- ->8 --> Epogen or iron indication prn --> Medications have been reviewed --> low threshold for gi evaluation and occult NEGATIVE # Leukocytosis with sepsis secondary to UTI, GPC staph epidermidis bacteremia, Line associated infection, patient arrived to the hospital with a PICC --> as per ID consult recs --> trend wbc 14k-->31k-->31.6 --> monitor for improvement --> Continue antibiotics per ID: Continue Zosyn and vancomycin, anti fungal added--> kaykay/vanc, diflucan-->flagyl, vanc, polymyxin--> omid/flagyl/polym/vanc /bactim-ds-->levofloxacin/vanco/linezolid/minocycline --> imaging noted # Thrombocytosis is likely due to underlying reactive process --> currently improved --> if doesn't improve send off jak2 --> plt count 641k-->402k-->344-->275k-->280k-->250k-->255k-->203k-->178 # Elevated tumor marker, cea --> as per gi eval # Transaminitis --> trend lft's --> GI consult, apprec recs --> ab us: reviewed # Elevated troponin secondary to sepsis versus ACS --> as per Cardiology recs # Hypertension- improved --> sbp goal <150 # Vent dependent with trach --> on vent currently --> as per Pulmonary recs # Hypokalemia --> give vit K # Dysphagia s/p gtube feeds # CHf hx with hyponatremia --> 1l fluid restriction # Dvt ppx with scds # VERY POOR PROGNOSIS The timing of this note does not necessarily reflect the time of the patient was seen. GREATLY APPRECIATE CONSULTATION. Subjective Allergies: Coded Allergies: Crayfish (Unverified Allergy, Unknown, 11/11/18) Uncoded Allergies: Crawfish (Allergy, Unknown, 11/09/18) Subjective 11/14: no events to report, labs relatively stable, hgb 8.9, on vent 11/15: no bleeding, no chills, labs reviewed, no major changes 11/16: cxr-->bilateral interstitial edema, vs stable, on abx, on vent, contact isolation 11/17: labs reviewed, on abx, vs stable, on vent, no distress 11/18: remains on gtube feeds, is on vent, on kaykay/vanc 11/20: no events, no bleeding, kaykay, vanc, diflucan, no f/c 11/21: remains on vent, gtube feeds, no major changes, no bleeding 11/22: ct abdomen pelvis w/contrast reviewed, vs stable, no acute events, labs reviewed, remains intubated, low grade fever 11/23: reviewed meds, abx have been changed, remains altered currently 11/24: labs reviewed, vs stable, med reviewed, no sob, no distress, on vent 11/25: remains on vent, no major events, on glucerna, fluid restriction 11/27: signed consent today, no f/c, no night sweats 11/28: no f/c, on abx, on vent, no distress, picc line in 11/29: no events to report, no f/c, no bleeding noted, on vent 11/30: vs stable, no f/c, on vent, obtunded, gtube feeds 12/01: no f/c, cxr-->pulmonary edema, meds reviewed, contact precaution, on vent , labs noted 12/03: ongoing gtube feeds, nava in place, on vent, no bleeding 12/04: remains obtunded, on trach/to vent, no bleeding today, labs noted 12/05: electrolytes repleted overnight, no major changes, prbc was ordered hgb 6.6 12/06: on vent, trach dependent, no f/c, no bleeding 12/07: no events, labs noted 12/08: neck wounds being addressed, labs pending, no f/c overnight 12/09: on vent/trach, no bleeding, hgb 8.7, on gtube feeds 12/11: in icu, cxr noted, on vent, developed new hcap and uti, obtunded, on abx 12/12: no events, no bleeding, remains in the icu, coded yesterday 12/13: icu, obtunded, no overnight events, on vent, abx and pressor 12/14: coded 2x this am, actively dying, on pressors, bleeding gums+ Objective Objective Current Medications Medications (Trade) Dose Ordered Sig/Lupe Route PRN Reason Start Time Stop Time Status Last Admin Dose Admin Acetaminophen (Tylenol) 650 mg Q4H PRN GT Mild Pain/Temp > 100.5 12/11/18 05:12 01/07/19 05:11 12/13/18 09:38 Bisacodyl (Dulcolax) 10 mg DAILY PRN RECTAL Constipation 12/11/18 05:12 01/07/19 05:11 Cefepime HCl 2 gm/ Dextrose 110 ml @ 220 mls/hr Q24H IV 12/11/18 15:00 12/18/18 14:59 12/13/18 16:23 Chlorhexidine Gluconate (Corazon-Hex 2%) 1 applic DAILY@1999 TOPIC 12/11/18 20:00 01/07/19 19:59 12/13/18 20:23 Colistimethate Sodium (Colistin *inhalation use only*) 75 mg Q12HR@10,22 INH 12/14/18 00:00 12/21/18 00:00 12/14/18 10:27 Dextrose (Dextrose 50%) 25 ml Q30M PRN IV Hypoglycemia 12/11/18 05:15 01/07/19 04:44 Dextrose (Dextrose 50%) 50 ml Q30M PRN IV Hypoglycemia 12/11/18 05:15 01/07/19 04:44 12/13/18 20:36 Enoxaparin Sodium (Lovenox) 40 mg DAILY SUBQ 12/11/18 09:00 01/07/19 08:59 12/13/18 09:45 Hydrocortisone (Solu-CORTEF) 100 mg EVERY 8 HOURS IV 12/12/18 14:00 01/11/19 13:59 12/14/18 05:23 Insulin Aspart (NovoLOG) Q6HR SUBQ 12/11/18 06:00 01/07/19 05:59 12/14/18 13:31 Insulin Detemir (Levemir) 4 units EVERY 12 HOURS SUBQ 12/11/18 09:00 01/07/19 20:59 12/13/18 09:46 Labetalol HCl (Normodyne) 200 mg Q8HR GT 12/11/18 06:00 01/07/19 05:59 12/13/18 13:39 Lactulose (Cephulac) 10 gm THREE TIMES A DAY GT 12/11/18 09:00 01/07/19 17:59 12/14/18 13:17 Levetiracetam (Keppra) 1,500 mg Q12HR GT 12/11/18 09:00 01/07/19 08:59 12/14/18 10:06 Levofloxacin 150 ml @ 150 mls/hr Q48H IVPB 12/12/18 18:00 12/19/18 17:59 12/12/18 18:50 Linezolid 300 ml @ 300 mls/hr Q12HR IVPB 12/12/18 21:00 12/19/18 20:59 12/14/18 10:14 Magnesium Hydroxide (Mom) 30 ml DAILY PRN GT Constipation 12/11/18 05:15 01/07/19 05:14 Metoclopramide HCl (Reglan) 5 mg Q8H PRN IVP Nausea & Vomiting 12/11/18 05:15 01/09/19 05:14 Metronidazole 100 ml @ 100 mls/hr Q8HR IVPB 12/11/18 14:00 12/18/18 13:59 12/14/18 05:23 Minocycline HCl (Minocin) 100 mg Q12HR ORAL 12/12/18 21:00 12/19/18 20:59 12/14/18 10:07 Norepinephrine Bitartrate 16 mg/ Dextrose 500 ml @ 0 mls/hr Q24H IV 12/14/18 14:07 01/13/19 14:06 Norepinephrine Bitartrate 8 mg/ Dextrose 500 ml @ 0 mls/hr Q24H IV 12/11/18 09:00 12/14/18 16:00 12/14/18 11:17 Ondansetron HCl (Zofran) 4 mg Q6H PRN GT Nausea & Vomiting 12/11/18 05:16 01/07/19 05:15 Pantoprazole (Protonix) 40 mg DAILY IVP 12/14/18 09:00 01/13/19 08:59 12/14/18 10:07 Phenobarbital (PHENobarbital) 60 mg BID GT 12/11/18 18:00 01/07/19 08:59 12/14/18 10:07 Phenylephrine HCl 100 mg/Dextrose 500 ml @ 0 mls/hr Q24H IV 12/11/18 09:00 01/10/19 08:59 12/14/18 13:33 Phenytoin (Dilantin) 100 mg Q8HR GT 12/11/18 06:00 01/07/19 05:59 12/14/18 05:23 Polyethylene Glycol (Miralax) 17 gm DAILYPRN PRN GT Constipation 12/11/18 05:17 01/07/19 05:16 Sennosides (Senokot) 8.6 mg EVERY 12 HOURS GT 12/11/18 09:00 01/07/19 20:59 12/14/18 10:07 Sodium Bicarbonate 150 ml/Dextrose 1,150 ml @ 100 mls/hr [id number] IV 12/14/18 13:00 01/13/19 12:59 12/14/18 13:17 Vasopressin 100 units/Sodium Chloride 100 ml @ 0 mls/hr Q24H IV 12/11/18 14:45 01/10/19 14:44 12/12/18 16:11 Last 24 Hour Vital Signs Date Time Temp Pulse Resp B/P (MAP) Pulse Ox O2 Delivery O2 Flow Rate FiO2 12/14/18 13:33 82 131/55 12/14/18 12:45 90 30 100 12/14/18 11:45 145/91 12/14/18 11:17 144/70 12/14/18 10:37 74 26 35 12/14/18 10:37 74 26 98 Mechanical Ventilator 74 26 97 12/14/18 10:30 74 26 152/96 (114) 100 12/14/18 10:00 77 26 107/78 (88) 98 12/14/18 09:30 77 26 116/57 (76) 99 12/14/18 09:00 76 26 83/47 (59) 12/14/18 08:40 77 26 35 12/14/18 08:30 76 26 81/58 (66) 12/14/18 08:00 97.4 77 26 85/23 (43) 100 12/14/18 08:00 85/23 12/14/18 08:00 Mechanical Ventilator 12/14/18 08:00 40 12/14/18 07:45 101/70 12/14/18 07:30 85/32 12/14/18 07:15 84/14 12/14/18 07:00 77 26 82/27 (45) 12/14/18 06:55 77 26 35 12/14/18 06:30 79 26 93/51 (65) 100 12/14/18 06:00 80 26 97/59 (72) 100 12/14/18 05:44 99/33 12/14/18 05:30 84 26 109/80 (90) 100 12/14/18 05:24 84 109/80 12/14/18 05:17 84 26 40 12/14/18 05:00 85 26 137/18 (57) 100 12/14/18 04:30 85 26 140/19 (59) 100 12/14/18 04:00 Mechanical Ventilator 12/14/18 04:00 40 12/14/18 04:00 86 12/14/18 04:00 96.8 86 26 142/29 (66) 12/14/18 03:30 86 26 40 12/14/18 03:30 87 21 144/34 (70) 100 12/14/18 03:00 87 26 102/16 (44) 100 12/14/18 02:30 88 26 138/54 (82) 100 12/14/18 02:00 88 26 138/52 (80) 100 12/14/18 01:30 89 26 135/47 (76) 100 12/14/18 01:25 89 26 40 12/14/18 01:09 136/41 12/14/18 01:00 89 26 136/41 (72) 100 12/14/18 00:30 90 26 135/43 (73) 99 12/14/18 00:00 97.4 91 26 137/44 (75) 100 12/14/18 00:00 92 26 100 Mechanical Ventilator 40 91 26 98 12/14/18 00:00 40 12/14/18 00:00 90 12/14/18 00:00 Mechanical Ventilator 12/13/18 23:30 91 26 132/43 (72) 100 12/13/18 23:30 91 23 40 12/13/18 23:00 92 26 129/41 (70) 100 12/13/18 22:30 93 26 124/38 (66) 100 12/13/18 22:00 94 26 120/43 (68) 100 12/13/18 21:30 90 26 116/36 (62) 100 12/13/18 21:30 94 26 40 12/13/18 21:00 98 26 79/33 (48) 98 12/13/18 20:42 99/46 12/13/18 20:33 98 83/42 12/13/18 20:30 90 26 99/46 (63) 100 12/13/18 20:00 99.6 98 26 83/42 (56) 98 12/13/18 20:00 Mechanical Ventilator 12/13/18 20:00 89 12/13/18 20:00 40 12/13/18 19:30 98 26 79/33 (48) 98 12/13/18 19:20 103 26 40 12/13/18 19:00 97 25 97/61 (73) 98 12/13/18 18:30 93 26 102/52 (69) 98 12/13/18 18:00 96 26 98/52 (67) 98 12/13/18 18:00 96 26 98/50 (66) 97 12/13/18 18:00 98/59 12/13/18 17:31 99 95/57 12/13/18 17:30 98 26 97/51 (66) 99 12/13/18 17:30 98 25 85/57 (66) 12/13/18 17:03 106 26 40 12/13/18 17:00 105 25 96/69 (78) 96 12/13/18 17:00 95/57 12/13/18 16:30 110 26 104/67 (79) 98 12/13/18 16:00 Mechanical Ventilator 12/13/18 16:00 99.8 111 26 98/62 (74) 100 12/13/18 16:00 104/50 12/13/18 16:00 110 12/13/18 16:00 70 12/13/18 15:30 114 26 99/58 (72) 97 12/13/18 15:07 117 26 40 12/13/18 15:00 115 26 100/50 (67) 98 12/13/18 15:00 99/58 12/13/18 14:30 116 26 105/38 (60) 98 12/13/18 14:08 98/53 12/13/18 14:00 114 26 97/55 (69) 100 12/13/18 13:39 123 91/54 12/13/18 13:30 115 26 98/53 (68) 100 12/13/18 13:05 122 26 96 Mechanical Ventilator 40 116 26 40 12/13/18 13:00 120 26 101/46 (64) 97 12/13/18 12:30 125 26 108/56 (73) 97 12/13/18 12:00 70 12/13/18 12:00 99.6 122 26 99/55 (70) 98 12/13/18 12:00 114 12/13/18 12:00 129/62 12/13/18 12:00 Mechanical Ventilator 12/13/18 11:14 103 26 100 Mechanical Ventilator 50 103 26 50 12/13/18 11:00 101 23 122/53 (76) 100 12/13/18 11:00 154/66 12/13/18 11:00 103 26 154/66 (95) 100 12/13/18 10:30 99 26 119/53 (75) 100 12/13/18 10:30 100 26 123/40 (67) 100 12/13/18 10:08 99.3 12/13/18 10:00 99 26 118/43 (68) 100 12/13/18 10:00 118/46 12/13/18 10:00 99 26 118/46 (70) 100 12/13/18 09:58 99 26 Mechanical Ventilator 50 12/13/18 09:30 99 26 119/43 (68) 100 12/13/18 09:30 98 26 120/43 (68) 100 12/13/18 09:00 98 26 120/47 (71) 100 12/13/18 09:00 98 26 119/45 (69) 99 12/13/18 09:00 120/47 12/13/18 08:30 97 26 118/47 (70) 99 12/13/18 08:30 98 26 119/45 (69) 99 12/13/18 08:08 50 12/13/18 08:00 Mechanical Ventilator 12/13/18 08:00 98 12/13/18 08:00 100.8 97 26 120/40 (66) 100 12/13/18 08:00 118/44 12/13/18 08:00 100.8 98 26 118/44 (68) 99 12/13/18 08:00 70 12/13/18 07:45 97 26 118/35 (62) 99 12/13/18 07:30 97 26 118/47 (70) 99 12/13/18 07:15 97 26 118/35 (62) 99 12/13/18 07:00 96 26 119/51 (73) 100 12/13/18 06:50 96 26 100 Mechanical Ventilator 70 96 26 70 12/13/18 06:45 96 26 114/47 (69) 100 12/13/18 06:30 96 26 123/50 (74) 100 12/13/18 06:15 95 26 122/52 (75) 100 12/13/18 06:07 96 120/52 12/13/18 06:00 95 26 123/50 (74) 100 12/13/18 05:45 95 26 120/52 (74) 100 12/13/18 05:30 95 26 121/49 (73) 100 12/13/18 05:23 95 26 70 12/13/18 05:15 95 26 118/53 (74) 100 12/13/18 05:00 95 26 119/53 (75) 100 12/13/18 04:45 95 26 117/53 (74) 100 12/13/18 04:30 95 26 114/53 (73) 100 12/13/18 04:15 95 26 111/54 (73) 100 12/13/18 04:00 99.1 95 26 112/48 (69) 100 12/13/18 04:00 Mechanical Ventilator 12/13/18 04:00 70 12/13/18 03:45 95 26 111/55 (73) 100 12/13/18 03:36 93 12/13/18 03:30 95 26 110/52 (71) 100 12/13/18 03:19 96 26 70 9/25/19 03:15 96 26 113/67 (82) 100 12/13/18 03:00 96 26 125/63 (83) 100 12/13/18 02:30 96 26 122/64 (83) 100 12/13/18 02:15 97 26 124/66 (85) 100 12/13/18 02:00 97 26 120/66 (84) 100 12/13/18 01:45 97 26 123/60 (81) 100 12/13/18 01:30 97 26 124/62 (82) 100 12/13/18 01:25 97 26 100 Mechanical Ventilator 70 12/13/18 01:15 97 26 123/69 (87) 100 12/13/18 01:15 97 26 100 Mechanical Ventilator 70 97 26 70 12/13/18 00:45 97 26 120/58 (78) 100 12/13/18 00:30 98 26 121/63 (82) 100 12/13/18 00:15 98 26 121/61 (81) 100 12/13/18 00:00 70 12/13/18 00:00 Mechanical Ventilator 12/13/18 00:00 98.7 97 26 125/64 (84) 100 12/13/18 00:00 97 12/12/18 23:47 107/52 12/12/18 23:45 99 26 106/63 (77) 100 12/12/18 23:30 100 26 70 12/12/18 23:30 99 26 109/64 (79) 100 12/12/18 23:00 102 26 122/65 (84) 100 12/12/18 22:45 106 26 140/68 (92) 100 12/12/18 22:30 106 26 141/74 (96) 100 12/12/18 22:15 106 26 142/56 (84) 100 12/12/18 22:00 80 12/12/18 22:00 105 26 133/65 (87) 100 12/12/18 21:45 104 26 130/64 (86) 100 12/12/18 21:40 101 112/68 12/12/18 21:30 102 26 120/71 (87) 100 12/12/18 21:15 99 26 112/68 (83) 100 12/12/18 21:09 97 26 80 12/12/18 21:00 97 26 110/58 (75) 100 12/12/18 20:45 95 26 101/54 (70) 100 12/12/18 20:30 95 26 97/51 (66) 100 12/12/18 20:15 94 26 102/54 (70) 100 12/12/18 20:09 92 26 100 Mechanical Ventilator 100 12/12/18 20:00 Mechanical Ventilator 12/12/18 20:00 90 12/12/18 20:00 92 26 100/43 (62) 100 12/12/18 19:59 93 26 100 Mechanical Ventilator 100 93 26 100 12/12/18 19:45 93 26 101/48 (65) 100 12/12/18 19:30 93 26 101/43 (62) 100 12/12/18 19:24 93 12/12/18 19:15 93 26 108/46 (66) 100 12/12/18 19:00 107/63 12/12/18 19:00 98.5 93 26 111/61 (78) 100 12/12/18 18:45 92 26 101/52 (68) 100 12/12/18 18:45 85/49 12/12/18 18:30 91 26 85/49 (61) 100 12/12/18 18:30 69/35 12/12/18 18:15 91 26 77/41 (53) 100 12/12/18 18:15 84/39 12/12/18 18:00 91 26 84/39 (54) 100 12/12/18 18:00 104/48 12/12/18 17:45 104/46 12/12/18 17:45 91 26 104/46 (65) 100 12/12/18 17:30 114/52 12/12/18 17:30 92 26 114/52 (72) 100 12/12/18 17:15 91 26 114/41 (65) 100 12/12/18 17:15 111/41 12/12/18 17:00 108/54 12/12/18 17:00 92 26 108/54 (72) 100 12/12/18 16:50 91 20 90 12/12/18 16:45 91 26 110/63 (79) 100 12/12/18 16:45 110/63 12/12/18 16:30 117/56 12/12/18 16:30 90 26 117/56 (76) 100 12/12/18 16:15 126/61 12/12/18 16:15 88 26 126/61 (82) 100 12/12/18 16:00 97.5 87 26 131/72 (91) 100 12/12/18 16:00 75 12/12/18 16:00 90 12/12/18 16:00 131/72 12/12/18 16:00 Mechanical Ventilator 12/12/18 15:45 87 26 129/72 (91) 100 12/12/18 15:45 129/72 12/12/18 15:30 86 26 118/61 (80) 100 12/12/18 15:30 118/61 12/12/18 15:15 86 26 113/61 (78) 100 12/12/18 15:15 113/61 12/12/18 15:00 85 26 107/59 (75) 100 12/12/18 15:00 107/59 12/12/18 14:45 75/42 Intake and Output 12/13/18 12/14/18 19:00 07:00 Intake Total 2047.5 ml 2838.525 ml Output Total 395 ml 0 ml Balance 1652.5 ml 2838.525 ml IV Total 2037.5 ml 2778.525 ml Tube Feeding 10 ml Other 60 ml Output Urine Total 35 ml 0 ml Gastric Drainage Total 360 ml Labs Test 12/12/18 03:15 12/12/18 11:39 12/12/18 14:00 12/12/18 16:55 White Blood Count 30.9 K/UL (4.8-10.8) Red Blood Count 3.31 M/UL (4.20-5.40) Hemoglobin 8.7 G/DL (12.0-16.0) Hematocrit 28.1 % (37.0-47.0) Mean Corpuscular Volume 85 FL (80-99) Mean Corpuscular Hemoglobin 26.4 PG (27.0-31.0) Mean Corpuscular Hemoglobin Concent 31.0 G/DL (32.0-36.0) Red Cell Distribution Width 18.2 % (11.6-14.8) Platelet Count 215 K/UL (150-450) Mean Platelet Volume 6.7 FL (6.5-10.1) Neutrophils (%) (Auto) % (45.0-75.0) Lymphocytes (%) (Auto) % (20.0-45.0) Monocytes (%) (Auto) % (1.0-10.0) Eosinophils (%) (Auto) % (0.0-3.0) Basophils (%) (Auto) % (0.0-2.0) Differential Total Cells Counted 100 Neutrophils % (Manual) 81 % (45-75) Lymphocytes % (Manual) 5 % (20-45) Monocytes % (Manual) 5 % (1-10) Eosinophils % (Manual) 0 % (0-3) Basophils % (Manual) 0 % (0-2) Band Neutrophils 9 % (0-8) Platelet Estimate Adequate Platelet Morphology Normal Hypochromasia 1+ Zeinab Cells 1+ Sodium Level 130 MMOL/L (136-145) Potassium Level 4.1 MMOL/L (3.5-5.1) Chloride Level 94 MMOL/L (98-107) Carbon Dioxide Level 10 MMOL/L (21-32) Anion Gap 27 mmol/L (5-15) Blood Urea Nitrogen 42 mg/dL (7-18) Creatinine 1.9 MG/DL (0.55-1.30) Estimat Glomerular Filtration Rate mL/min (>60) Glucose Level 170 MG/DL (74-106) Calcium Level 7.8 MG/DL (8.5-10.1) Total Bilirubin 2.0 MG/DL (0.2-1.0) Direct Bilirubin 1.5 MG/DL (0.0-0.3) Aspartate Amino Transf (AST/SGOT) 1122 U/L (15-37) Alanine Aminotransferase (ALT/SGPT) 342 U/L (12-78) Alkaline Phosphatase 335 U/L (46-116) Total Protein 5.4 G/DL (6.4-8.2) Albumin 1.2 G/DL (3.4-5.0) Globulin 4.2 g/dL Albumin/Globulin Ratio 0.3 (1.0-2.7) Arterial Blood pH 7.190 (7.350-7.450) Arterial Blood Partial Pressure CO2 22.7 mmHg (35.0-45.0) Arterial Blood Partial Pressure O2 88.0 mmHg (75.0-100.0) Arterial Blood HCO3 8.5 mmol/L (22.0-26.0) Arterial Blood Oxygen Saturation 95.0 % (95-100) Arterial Blood Base Excess -18.0 (-2-2) Harsh Test Positive Thyroid Stimulating Hormone (TSH) 0.290 uiU/mL (0.358-3.740) Cortisol 6.7 UG/DL Lactic Acid Level 10.20 mmol/L (0.4-2.0) Test 12/12/18 19:01 12/12/18 19:06 12/12/18 19:39 12/13/18 03:15 Lactic Acid Level 10.30 mmol/L (0.66-2.22) 10.30 mmol/L (0.4-2.0) Arterial Blood pH 7.142 (7.350-7.450) 7.226 (7.350-7.450) Arterial Blood Partial Pressure CO2 30.8 mmHg (35.0-45.0) 21.4 mmHg (35.0-45.0) Arterial Blood Partial Pressure O2 < 45.3 mmHg (75.0-100.0) 298.5 mmHg (75.0-100.0) Arterial Blood HCO3 10.3 mmol/L (22.0-26.0) 8.7 mmol/L (22.0-26.0) Arterial Blood Oxygen Saturation 66.3 % (95-100) 99.2 % (95-100) Arterial Blood Base Excess -17.3 (-2-2) -17.2 (-2-2) Harsh Test Positive Positive White Blood Count 31.6 K/UL (4.8-10.8) Red Blood Count 2.99 M/UL (4.20-5.40) Hemoglobin 8.0 G/DL (12.0-16.0) Hematocrit 25.1 % (37.0-47.0) Mean Corpuscular Volume 84 FL (80-99) Mean Corpuscular Hemoglobin 26.7 PG (27.0-31.0) Mean Corpuscular Hemoglobin Concent 31.8 G/DL (32.0-36.0) Red Cell Distribution Width 18.0 % (11.6-14.8) Platelet Count 178 K/UL (150-450) Mean Platelet Volume 7.1 FL (6.5-10.1) Neutrophils (%) (Auto) % (45.0-75.0) Lymphocytes (%) (Auto) % (20.0-45.0) Monocytes (%) (Auto) % (1.0-10.0) Eosinophils (%) (Auto) % (0.0-3.0) Basophils (%) (Auto) % (0.0-2.0) Differential Total Cells Counted 100 Neutrophils % (Manual) 84 % (45-75) Lymphocytes % (Manual) 3 % (20-45) Monocytes % (Manual) 3 % (1-10) Eosinophils % (Manual) 3 % (0-3) Basophils % (Manual) 0 % (0-2) Band Neutrophils 7 % (0-8) Nucleated Red Blood Cells 1 /100 WBC Platelet Estimate Adequate Platelet Morphology Normal Hypochromasia 1+ Anisocytosis 1+ Target Cells 1+ Sodium Level 126 MMOL/L (136-145) Potassium Level 4.3 MMOL/L (3.5-5.1) Chloride Level 92 MMOL/L (98-107) Carbon Dioxide Level 12 MMOL/L (21-32) Anion Gap 22 mmol/L (5-15) Blood Urea Nitrogen 45 mg/dL (7-18) Creatinine 1.9 MG/DL (0.55-1.30) Estimat Glomerular Filtration Rate mL/min (>60) Glucose Level 112 MG/DL (74-106) Calcium Level 7.5 MG/DL (8.5-10.1) Total Bilirubin 2.5 MG/DL (0.2-1.0) Direct Bilirubin 1.8 MG/DL (0.0-0.3) Aspartate Amino Transf (AST/SGOT) 1869 U/L (15-37) Alanine Aminotransferase (ALT/SGPT) 600 U/L (12-78) Alkaline Phosphatase 371 U/L (46-116) Total Protein 5.0 G/DL (6.4-8.2) Albumin 1.6 G/DL (3.4-5.0) Globulin 3.4 g/dL Albumin/Globulin Ratio 0.5 (1.0-2.7) Test 12/13/18 05:40 12/13/18 07:45 12/13/18 12:58 12/13/18 15:00 Lactic Acid Level 10.40 mmol/L (0.66-2.22) Arterial Blood pH 7.228 (7.350-7.450) 7.103 (7.350-7.450) Arterial Blood Partial Pressure CO2 22.9 mmHg (35.0-45.0) 19.1 mmHg (35.0-45.0) Arterial Blood Partial Pressure O2 141.7 mmHg (75.0-100.0) 119.9 mmHg (75.0-100.0) Arterial Blood HCO3 9.3 mmol/L (22.0-26.0) 5.8 mmol/L (22.0-26.0) Arterial Blood Oxygen Saturation 98.0 % (95-100) 97.2 % (95-100) Arterial Blood Base Excess -16.3 (-2-2) -21.9 (-2-2) Harsh Test Positive Positive Urine Color Brown Urine Appearance Cloudy Urine pH 5 (4.5-8.0) Urine Specific [place] 1.020 (1.005-1.035) Urine Protein 3+ (NEGATIVE) Urine Glucose (UA) 1+ (NEGATIVE) Urine Ketones 1+ (NEGATIVE) Urine Blood 4+ (NEGATIVE) Urine Nitrite Positive (NEGATIVE) Urine Bilirubin 2+ (NEGATIVE) Urine Ictotest Negative (NEGATIVE) Urine Urobilinogen 1 MG/DL (0.0-1.0) Urine Leukocyte Esterase 2+ (NEGATIVE) Urine RBC 15-20 /HPF (0 - 2) Urine WBC 20-30 /HPF (0 - 2) Urine Squamous Epithelial Cells Few /LPF (NONE/OCC) Urine Amorphous Sediment Many /LPF (NONE) Urine Bacteria Many /HPF (NONE) Urine Osmolality 303 mOsm/kg (429-449) Urine Random Sodium 34 mmol/L (20-110) Test 12/13/18 18:05 12/14/18 04:00 12/14/18 10:05 12/14/18 10:30 Lactic Acid Level 17.50 mmol/L (0.4-2.0) 17.50 mmol/L (0.4-2.0) 16.50 mmol/L (0.66-2.22) White Blood Count 26.2 K/UL (4.8-10.8) Red Blood Count 2.77 M/UL (4.20-5.40) Hemoglobin 7.8 G/DL (12.0-16.0) Hematocrit 24.5 % (37.0-47.0) Mean Corpuscular Volume 89 FL (80-99) Mean Corpuscular Hemoglobin 28.1 PG (27.0-31.0) Mean Corpuscular Hemoglobin Concent 31.7 G/DL (32.0-36.0) Red Cell Distribution Width 19.2 % (11.6-14.8) Platelet Count 114 K/UL (150-450) Mean Platelet Volume 7.6 FL (6.5-10.1) Neutrophils (%) (Auto) % (45.0-75.0) Lymphocytes (%) (Auto) % (20.0-45.0) Monocytes (%) (Auto) % (1.0-10.0) Eosinophils (%) (Auto) % (0.0-3.0) Basophils (%) (Auto) % (0.0-2.0) Differential Total Cells Counted 100 Neutrophils % (Manual) 77 % (45-75) Lymphocytes % (Manual) 5 % (20-45) Monocytes % (Manual) 4 % (1-10) Eosinophils % (Manual) 0 % (0-3) Basophils % (Manual) 0 % (0-2) Band Neutrophils 14 % (0-8) Platelet Estimate Decreased Platelet Morphology Normal Hypochromasia 1+ Anisocytosis 1+ Sodium Level 121 MMOL/L (136-145) Potassium Level 5.1 MMOL/L (3.5-5.1) Chloride Level 88 MMOL/L (98-107) Carbon Dioxide Level < 5 MMOL/L (21-32) Blood Urea Nitrogen 42 mg/dL (7-18) Creatinine 1.8 MG/DL (0.55-1.30) Estimat Glomerular Filtration Rate mL/min (>60) Glucose Level 135 MG/DL (74-106) Calcium Level 7.6 MG/DL (8.5-10.1) Total Bilirubin 2.6 MG/DL (0.2-1.0) Direct Bilirubin 2.1 MG/DL (0.0-0.3) Aspartate Amino Transf (AST/SGOT) 6692 U/L (15-37) Alanine Aminotransferase (ALT/SGPT) 1620 U/L (12-78) Alkaline Phosphatase 535 U/L (46-116) Total Protein 4.6 G/DL (6.4-8.2) Albumin 1.3 G/DL (3.4-5.0) Globulin 3.3 g/dL Albumin/Globulin Ratio 0.4 (1.0-2.7) Arterial Blood pH < 6.716 (7.350-7.450) Arterial Blood Partial Pressure CO2 19.8 mmHg (35.0-45.0) Arterial Blood Partial Pressure O2 106.1 mmHg (75.0-100.0) Arterial Blood HCO3 mmol/L (22.0-26.0) Arterial Blood Oxygen Saturation 94.1 % (95-100) Arterial Blood Base Excess (-2-2) Harsh Test Positive Prothrombin Time 59.4 SEC (9.30-11.50) Prothromb Time International Ratio 6.2 (0.9-1.1) Activated Partial Thromboplast Time > 150 SEC (23-33) Fibrinogen 269 mg/dL (200-400) Micro Microbiology Date/Time Source Procedure Growth Status 12/13/18 15:00 Urine,Clean Catch Urine Culture - Preliminary NO GROWTH Resulted Height (Feet): 5 Height (Inches): 8.00 Weight (Pounds): 230 Objective Physical Exam: Vitals: reviewed Gen: NAD, nonverbal HEENT: normocephalic, atraumatic Neck: non-tender, normal alignment ++ vent/trach Respiratory: normal breath sounds bilaterally CV: normal peripheral pulses, rrr Abdomen: normal bowel sounds, soft, nontender +gtube Extremities: 1-2+ edema, nava+ Yonathan Hernandez MD Dec 14, 2018 14:37
[2018-12-14] MEDS: Vasopressin 100 UNITS in NS 95 ML IV SCH (14:59)
--- NOTE | 2018-12-14 15:52 | Emergency Room Report ---
History of Present Illness General Chief Complaint: Fever Source: Medical Record Present Illness Allergies: Coded Allergies: Crayfish (Unverified Allergy, Unknown, 11/11/18) Uncoded Allergies: Crawfish (Allergy, Unknown, 11/09/18) Patient History Last Menstrual Period: n/a Nursing Documentation-[facility] Past Medical History: No History, Except For Hx Cardiac Problems: Yes Hx Hypertension: Yes Hx Diabetes: Yes - Type 2 Hx Cancer: Yes - malignant neoplasm of overlapping site of colon Hx Gastrointestinal Problems: Yes - gastrostomy status Hx Neurological Problems: Yes - anoxic brain damage Hx Encephalitis: Yes - Encephalopathy Hx Seizures: Yes Physical Exam Vital Signs Date Time Temp Pulse Resp B/P (MAP) Pulse Ox O2 Delivery O2 Flow Rate FiO2 12/10/18 07:23 98 26 96 Mechanical Ventilator 30 95 25 30 12/10/18 08:00 98.4 124/65 (84) Medical Decision Making Diagnostic Impression: Primary Impression: Cardiac arrest Additional Impression: Aspiration into airway Qualified Codes: T17.908A - Unspecified foreign body in respiratory tract, part unspecified causing other injury, initial encounter ER Course I was called to evaluate patient for code blue. Patient with recent arrest. noted to have significant metabolic acidosis, multiple pressors and sepsis. ROSC after medications as per code sheet. Given epi and bicarbonate IV. Brisk pulse noted. Poor overall prognosis. Family at bedside during code. Patient care to be resumed by primary team. Last Vital Signs Date Time Temp Pulse Resp B/P (MAP) Pulse Ox O2 Delivery O2 Flow Rate FiO2 12/14/18 15:15 84 30 100 12/14/18 14:42 167/72 12/14/18 10:37 98 Mechanical Ventilator 97 12/14/18 08:00 97.4 Disposition: ADMITTED INPATIENT Condition: Critical Referrals: NON PHYSICIAN (PCP) Godfrey Nur MD Dec 14, 2018 15:52
[2018-12-14] MEDS: Cefepime 2gm/D5W 110ml IV SCH ×2 (15:57)
--- NOTE | 2018-12-14 16:00 | NUR ---
NURSE NOTES: Patient blood pressure 157/62 at this time. Levophed and phenylephrine running at this time. Will continue to titrate per protocol and monitor blood pressure. Vasopressin held at this time. Patient cleaned up and repositioned and oral care performed at this time. Bear hugger warming blanket in place. Patient's temperature remains 94.4. Will continue to monitor and minimize moving of blanket to maintain body temp.
--- NOTE | 2018-12-14 17:40 | Surgery Progress Note ---
Surgery Progress Note Subjective Symptoms: other Objective Last 24 Hour Vital Signs Date Time Temp Pulse Resp B/P (MAP) Pulse Ox O2 Delivery O2 Flow Rate FiO2 12/14/18 17:12 58 30 100 12/14/18 16:47 143/60 12/14/18 16:30 74 30 143/60 (87) 12/14/18 16:00 75 12/14/18 16:00 94.4 81 30 157/62 (93) 12/14/18 16:00 Mechanical Ventilator 12/14/18 16:00 100 12/14/18 15:30 83 0 178/71 (106) 12/14/18 15:15 84 30 100 12/14/18 15:00 84 7 183/66 (105) 100 12/14/18 14:42 167/72 12/14/18 14:30 87 13 167/72 (103) 12/14/18 14:00 87 27 150/59 (89) 12/14/18 14:00 83 159/83 12/14/18 13:33 82 131/55 12/14/18 13:30 84 30 162/77 (105) 100 12/14/18 13:00 15 10 142/82 (102) 12/14/18 12:45 90 30 100 12/14/18 12:43 104 12/14/18 12:30 41 20 40/16 (24) 16 12/14/18 12:00 68 12/14/18 12:00 40 12/14/18 12:00 95.0 63 26 119/84 (96) 12/14/18 12:00 Mechanical Ventilator 12/14/18 11:45 145/91 12/14/18 11:30 66 26 156/79 (104) 12/14/18 11:17 144/70 12/14/18 11:00 67 26 144/70 (94) 12/14/18 10:37 74 26 35 12/14/18 10:37 74 26 98 Mechanical Ventilator 74 26 97 12/14/18 10:30 74 26 152/96 (114) 100 12/14/18 10:00 77 26 107/78 (88) 98 12/14/18 09:30 77 26 116/57 (76) 99 12/14/18 09:00 76 26 83/47 (59) 12/14/18 08:40 77 26 35 12/14/18 08:30 76 26 81/58 (66) 12/14/18 08:00 97.4 77 26 85/23 (43) 100 12/14/18 08:00 85/23 12/14/18 08:00 Mechanical Ventilator 12/14/18 08:00 40 12/14/18 08:00 77 12/14/18 07:45 101/70 12/14/18 07:30 85/32 12/14/18 07:15 84/14 12/14/18 07:00 77 26 82/27 (45) 12/14/18 06:55 77 26 35 12/14/18 06:30 79 26 93/51 (65) 100 12/14/18 06:00 80 26 97/59 (72) 100 12/14/18 05:44 99/33 12/14/18 05:30 84 26 109/80 (90) 100 12/14/18 05:24 84 109/80 12/14/18 05:17 84 26 40 12/14/18 05:00 85 26 137/18 (57) 100 12/14/18 04:30 85 26 140/19 (59) 100 12/14/18 04:00 Mechanical Ventilator 12/14/18 04:00 40 12/14/18 04:00 86 12/14/18 04:00 96.8 86 26 142/29 (66) 12/14/18 03:30 86 26 40 12/14/18 03:30 87 21 144/34 (70) 100 12/14/18 03:00 87 26 102/16 (44) 100 12/14/18 02:30 88 26 138/54 (82) 100 12/14/18 02:00 88 26 138/52 (80) 100 12/14/18 01:30 89 26 135/47 (76) 100 12/14/18 01:25 89 26 40 12/14/18 01:09 136/41 12/14/18 01:00 89 26 136/41 (72) 100 12/14/18 00:30 90 26 135/43 (73) 99 12/14/18 00:00 97.4 91 26 137/44 (75) 100 12/14/18 00:00 92 26 100 Mechanical Ventilator 40 91 26 98 12/14/18 00:00 40 12/14/18 00:00 90 12/14/18 00:00 Mechanical Ventilator 12/13/18 23:30 91 26 132/43 (72) 100 12/13/18 23:30 91 23 40 12/13/18 23:00 92 26 129/41 (70) 100 12/13/18 22:30 93 26 124/38 (66) 100 12/13/18 22:00 94 26 120/43 (68) 100 12/13/18 21:30 90 26 116/36 (62) 100 12/13/18 21:30 94 26 40 12/13/18 21:00 98 26 79/33 (48) 98 12/13/18 20:42 99/46 12/13/18 20:33 98 83/42 12/13/18 20:30 90 26 99/46 (63) 100 12/13/18 20:00 99.6 98 26 83/42 (56) 98 12/13/18 20:00 Mechanical Ventilator 12/13/18 20:00 89 12/13/18 20:00 40 12/13/18 19:30 98 26 79/33 (48) 98 12/13/18 19:20 103 26 40 12/13/18 19:00 97 25 97/61 (73) 98 12/13/18 18:30 93 26 102/52 (69) 98 12/13/18 18:00 96 26 98/52 (67) 98 12/13/18 18:00 96 26 98/50 (66) 97 12/13/18 18:00 98/59 I&O Intake and Output 12/13/18 12/14/18 19:00 07:00 Intake Total 2047.5 ml 2838.525 ml Output Total 395 ml 0 ml Balance 1652.5 ml 2838.525 ml IV Total 2037.5 ml 2778.525 ml Tube Feeding 10 ml Other 60 ml Output Urine Total 35 ml 0 ml Gastric Drainage Total 360 ml Dressing: other Wound: other Drains: other Cardiovascular: RSR Respiratory: decreased breath sounds Abdomen: soft, non-distended, decreased bowel sounds Extremities: no cyanosis, other Laboratory Tests Test 12/13/18 18:05 12/14/18 04:00 12/14/18 10:05 12/14/18 10:30 Lactic Acid Level 17.50 mmol/L (0.4-2.0) H 17.50 mmol/L (0.4-2.0) H 16.50 mmol/L (0.66-2.22) H White Blood Count 26.2 K/UL (4.8-10.8) *H Red Blood Count 2.77 M/UL (4.20-5.40) L Hemoglobin 7.8 G/DL (12.0-16.0) L Hematocrit 24.5 % (37.0-47.0) L Mean Corpuscular Volume 89 FL (80-99) Mean Corpuscular Hemoglobin 28.1 PG (27.0-31.0) Mean Corpuscular Hemoglobin Concent 31.7 G/DL (32.0-36.0) L Red Cell Distribution Width 19.2 % (11.6-14.8) H Platelet Count 114 K/UL (150-450) L Mean Platelet Volume 7.6 FL (6.5-10.1) Neutrophils (%) (Auto) % (45.0-75.0) Lymphocytes (%) (Auto) % (20.0-45.0) Monocytes (%) (Auto) % (1.0-10.0) Eosinophils (%) (Auto) % (0.0-3.0) Basophils (%) (Auto) % (0.0-2.0) Differential Total Cells Counted 100 Neutrophils % (Manual) 77 % (45-75) H Lymphocytes % (Manual) 5 % (20-45) L Monocytes % (Manual) 4 % (1-10) Eosinophils % (Manual) 0 % (0-3) Basophils % (Manual) 0 % (0-2) Band Neutrophils 14 % (0-8) H Platelet Estimate Decreased L Platelet Morphology Normal Hypochromasia 1+ Anisocytosis 1+ Sodium Level 121 MMOL/L (136-145) L Potassium Level 5.1 MMOL/L (3.5-5.1) Chloride Level 88 MMOL/L (98-107) L Carbon Dioxide Level < 5 MMOL/L (21-32) *L Blood Urea Nitrogen 42 mg/dL (7-18) H Creatinine 1.8 MG/DL (0.55-1.30) H Estimat Glomerular Filtration Rate mL/min (>60) Glucose Level 135 MG/DL (74-106) H Calcium Level 7.6 MG/DL (8.5-10.1) L Total Bilirubin 2.6 MG/DL (0.2-1.0) H Direct Bilirubin 2.1 MG/DL (0.0-0.3) H Aspartate Amino Transf (AST/SGOT) 6692 U/L (15-37) H Alanine Aminotransferase (ALT/SGPT) 1620 U/L (12-78) H Alkaline Phosphatase 535 U/L (46-116) H Total Protein 4.6 G/DL (6.4-8.2) L Albumin 1.3 G/DL (3.4-5.0) L Globulin 3.3 g/dL Albumin/Globulin Ratio 0.4 (1.0-2.7) L Arterial Blood pH < 6.716 (7.350-7.450) Arterial Blood Partial Pressure CO2 19.8 mmHg (35.0-45.0) *L Arterial Blood Partial Pressure O2 106.1 mmHg (75.0-100.0) H Arterial Blood HCO3 mmol/L (22.0-26.0) Arterial Blood Oxygen Saturation 94.1 % (95-100) L Arterial Blood Base Excess (-2-2) Harsh Test Positive Prothrombin Time 59.4 SEC (9.30-11.50) H Prothromb Time International Ratio 6.2 (0.9-1.1) *H Activated Partial Thromboplast Time > 150 SEC (23-33) *H Fibrinogen 269 mg/dL (200-400) Test 12/14/18 17:12 Arterial Blood pH < 6.716 (7.350-7.450) Arterial Blood Partial Pressure CO2 20.2 mmHg (35.0-45.0) *L Arterial Blood Partial Pressure O2 227.9 mmHg (75.0-100.0) H Arterial Blood HCO3 mmol/L (22.0-26.0) Arterial Blood Oxygen Saturation 98.9 % (95-100) Arterial Blood Base Excess (-2-2) Harsh Test Positive Plan Problems: (1) Fever (2) Tongue abnormality Assessment & Plan: patients jaw clenched closed and tongue has been stuck for some time. tongue split from middle teeth and now in two. edema and unable to reduce keep tongue moist. apply lube jelly prn dryness. will monitor do not recommend surgical intervention for this current medical condition spoke with family. ENT. OMFS no intervention stable still overall Was able to reduce the tongue after patient was noted to have unclenched jaw yesterday remains reduced and stable. Discussed with family (3) Tracheostomy dependence (4) Sepsis Assessment & Plan: gb no stones 6mm polyp no acute surgical intervention planned trend labs neck wounds being cared for sacral wound declining despite best efforts she has been receiving adequate nutritional supplementation and good wound care but inevitable decline unfortunately prognosis guarded DAILY ESTIMATED NEEDS: Needs based on Critical care, sepsis, wound 60kg adj 22-30 kcals/kg [id number] total kcals 1.25-2 g protein/kg 75-120 g total protein Fluid per MD, on lasix NUTRITION DIAGNOSIS: * Swallowing difficulty r/t respiratory status as evidenced by pt is vent dep via trach and PEG dep. * Increased kcal and pro needs r/t wound healing and sepsis as evidenced by pt w/ sacral and R heel wounds, febrile (Tmax 101.5). CURRENT TF: Jevity 1.2 @50 ml/hr x16 hrs ENTERAL NUTRITION RECOMMENDATIONS: Glucerna 1.2 @65ml/hr x18 hrs + Prosource x1 daily to provide 1170ml, 1404 kcal, 70g pro + 11g pro, 942 free H2O - REC TF CHANGE AND INCREASE TO BETTER MEET EST NEEDS - TF TO BE HELD FOR ONE HR BEFORE AND AFTER DILANTIN MEDS - START @20ML/HR, ADVANCE TOLERATED 15ML/HR Q4-6 HRS TO GOAL - FLUSH PER MD, HOB OVRE 30 DEGREES ADDITIONAL RECOMMENDATIONS: 1) CALIBRATED BED SCALE W/ ADDED P200 MATTRESS + PUMP 2) ON LASIX, MONITOR LYTES AND HYDRATION STATUS DAILY 3) TF TO RUN A MAX OF 18 HRS/DAY W/ DILANTIN TID PER PHARMACY 4) REC TF CHANGE TO CARB CONTROL FORMULA 5) WOUND CARE: ADD CHAYITO BID + VIT C 250MG DAILY (5) Fever Assessment & Plan: CT A/P with findings Impression: No definite acute process Diverticulosis. No evidence of diverticulitis Extensive edema of the subcutaneous fat. 2 cm focal fluid collection/edema seen within the incision Moderate amount retained dense stool. Correlate with any clinical history of constipation Hiatal hernia. Gastrostomy Left renal parapelvic cysts Apparent prior hysterectomy US w/ There are gallstones identified. No gallbladder wall thickening identified. The liver is unremarkable. Gallbladder is unremarkable. CBD is 3 mm. No gallstones identified. No biliary ductal dilatation seen. The kidneys are echogenic. There is no significant hydronephrosis demonstrated. There may be slight fullness of the left collecting system at the level of the kidney. The spleen is normal size. Pancreas and aorta are grossly unremarkable as visualized. (6) Decubitus skin ulcer Assessment & Plan: Pt presented on admission with full thickness sacral pressure injury.Base of wound is 20% necrotic , 80% slough. borders are macerated . Mild odor noted. (L)8.4cm x (W) 6.5cm. Periwound skin tone is darker without erythema,induration or elevation in skin temp. Both heels are non -blanchable and both are fluctuant when palpated. neck wounds still declining because of trach dependance, edema, and location as well as patients contractures Tx.Plan: Clean wound with saline. Apply Therahoney. Aply Moisture Barrier paste periwound. Cover with Optifoam drsg. Change every 3 days and prn. Apply Cavilon Skin Barrier to both heels. Cover each heel with Optifoam drsg. Change every 7 days and prn. wash neck wounds daily, apply skin protectant, therahoney, gauze and foam dressing daily APM/DEIRDRE mattress overlay. Reposition at least every 2hours or as tolerated. Off-load heels with pillow. will follow with recs thank you Preet Hylton Dec 14, 2018 17:40
[2018-12-14] MEDS ORDERED: Atropine Inj 1mg/10ml Syr ONE (17:51)
[2018-12-14] MEDS ORDERED: D5NS 1000ml IV ONE (18:14)
[2018-12-14] MEDS ORDERED: NS 275ml ONE (18:14)
[2018-12-14] MEDS ORDERED: Tubing IV Secondary IV ONE (18:14)
--- NOTE | 2018-12-14 18:15 | NUR ---
CODE BLUE: RESPIRATORY NOTE: Patient had bradycardia then asystolic. Code blue called at 1751. Took pt off the vent and start bagging via ambu bag 15L 100%FiO2, Chest compression initiated per RT Nadeem. Daughter Treasure and family members at the bedside, requested to stop the code. ER doctor pronounced pt at 1815.
[2018-12-14] MEDS ORDERED: EPINEPHrine 1 MG in D5W 250ml IV SCH (18:30)
--- NOTE | 2018-12-14 18:30 | NUR ---
NURSE NOTES: Dr Walters and Dr Dejesus notified that patient at 1814.
--- NOTE | 2018-12-14 18:30 | NUR ---
CODE BLUE: See Code sheet which remains on paper. At 1751 patient became asystole after bradycardia. CPR initiated following ACLS guidelines. At 1814 the family decided to cease resuscitation efforts. pronounced the patient at 181 with PEA. Patient's daughter (Treasure), brother and sister at the bedside.
--- NOTE | 2018-12-14 18:37 | Emergency Room Report ---
History of Present Illness General Chief Complaint: Fever Source: Medical Record Present Illness Allergies: Coded Allergies: Crayfish (Unverified Allergy, Unknown, 11/11/18) Uncoded Allergies: Crawfish (Allergy, Unknown, 11/09/18) Patient History Last Menstrual Period: n/a Nursing Documentation-[facility] Past Medical History: No History, Except For Hx Cardiac Problems: Yes Hx Hypertension: Yes Hx Diabetes: Yes - Type 2 Hx Cancer: Yes - malignant neoplasm of overlapping site of colon Hx Gastrointestinal Problems: Yes - gastrostomy status Hx Neurological Problems: Yes - anoxic brain damage Hx Encephalitis: Yes - Encephalopathy Hx Seizures: Yes Physical Exam Vital Signs Date Time Temp Pulse Resp B/P (MAP) Pulse Ox O2 Delivery O2 Flow Rate FiO2 12/10/18 07:23 98 26 96 Mechanical Ventilator 30 95 25 30 12/10/18 08:00 98.4 124/65 (84) General: Cardiac arrest, undergoing compressions HEENT: NC/AT. EOMI. Neck: Trach in place being ventilated through Ambu bag Resp: Bilateral breath sounds MSK: No obvious deformity. Neuro: GCS 3 Medical Decision Making Diagnostic Impression: Primary Impression: Aspiration into airway Qualified Codes: T17.908A - Unspecified foreign body in respiratory tract, part unspecified causing other injury, initial encounter Additional Impression: Cardiac arrest ER Course Called to the ICU for CODE BLUE cardiac arrest. When I arrived in the room the patient was undergoing CPR and had already received atropine and epinephrine. Patient was admitted to the ICU several days ago for severe sepsis and is trach dependent. She has already had several episodes of cardiac arrest, the most recent was this morning. Patient went bradycardic and then in PEA arrest. Several rounds of compressions, epinephrine, atropine were given according to ACS protocol. Pulses had returned briefly with bradycardia on monitor. Family did not want external pacing. An epi drip was ordered. Heart remained bradycardic and then again went into PEA arrest. Family was present at bedside during the duration of the code and terminated resuscitative efforts. Patient was pronounced at 1815. Last Vital Signs Date Time Temp Pulse Resp B/P (MAP) Pulse Ox O2 Delivery O2 Flow Rate FiO2 12/14/18 17:45 80 12/14/18 17:12 58 30 12/14/18 16:47 143/60 12/14/18 16:00 94.4 12/14/18 16:00 Mechanical Ventilator 12/14/18 15:00 100 Disposition: Condition: Referrals: NON PHYSICIAN (PCP) Mauri Howard MD Dec 14, 2018 18:37
--- NOTE | 2018-12-18 13:33 | Discharge Summary ---
Discharge Summary Hospital Course Date of Admission Nov 09, 2018 at 01:37 Date of Discharge Dec 14, 2018 at 18:15 Admitting Diagnosis sepsis, vent dependance HPI Latrell Ray is a 78 year old female who was admitted on Nov 09, 2018 at 01: 37 for Sepsis/Vent Dependance Consultations GI, Heme/onc, pulm/crit, surgery, ENT, nephrology Hospital Course 78-year-old female who is trach dependent who was brought in by alf for sepsis and found to have UTI and bacteremia. prolonged hospital course, multiple courses of antibiotics developed HCAP, then aspirated g tube contents and had a PEA arrest, coded x3, ROSC. Transferred to ICU, critically ill, coded x4 and eventually . #Cardiac arrest, septic shock. # Vent dependent. providencia/acinetobacter pna, proteus uti, sepsis, leukocytosis, fevers, hx wounds per surgery management, + picc line, blood cultures remain negative. possible aspiration event and worsening pna on chest x -ray. #?DIC. #DAMASO- likely due to ATN. #hyponatremia # Transaminitis #Microcytic anemia #Hypertension #Decubitus ulcer # tongue laceration, hematoma and edema. #Seizure: phenytoin and keppra. Phonobar #GOC: had a family meeting with daughters and POP Smiley. Extensive conversation reg goals of care and code status I spent > 30 mins on this encounter. Time of note may not reflect time of encounter. Discharge Condition Upon Discharge: other - Discharge Disposition Patient was discharged to, Discharge Diagnoses: (1) Diabetes (2) Seizure disorder (3) HTN (hypertension) (4) Tongue abnormality (5) Anoxic brain damage (6) Colon adenocarcinoma (7) Ventilator dependence (8) Tracheostomy dependence (9) Fever (10) Sepsis (11) Decubitus skin ulcer (12) Protein calorie malnutrition (13) Abnormal LFTs (14) MRSA (methicillin resistant staphylococcus aureus) pneumonia (15) Drug rash (16) Bacteremia (17) Gram-negative pneumonia (18) Line sepsis (19) Hyponatremia (20) Hypokalemia (21) UTI (urinary tract infection) (22) DAMASO (acute kidney injury) (23) DAMASO (acute kidney injury) (24) High anion gap metabolic acidosis (25) Lactic acid acidosis Neftaly Walters M.D. Dec 18, 2018 13:33
== END 2018-12-14 18:15 | disposition expired | DRG 870 ==
LOC: EDBD 23:17 → EMR 23:39 → 2W 11-09 01:37 → EDBEDREQ 11-09 02:15 → ICU 12-11 05:00
PROC: 5A1955Z Respiratory Ventilation, Greater than 96 Consecutive Hours (ICD-10-PCS; principal; 2018-11-09)
PROC: 02HV33Z Insertion of Infusion Device into Superior Vena Cava, Percutaneous Approach (ICD-10-PCS; 2018-11-13)
PROC: B548ZZA Ultrasonography of Superior Vena Cava, Guidance (ICD-10-PCS; 2018-11-13)
PROC: 5A12012 Performance of Cardiac Output, Single, Manual (ICD-10-PCS; 2018-12-11)
PROC: 5A12012 Performance of Cardiac Output, Single, Manual (ICD-10-PCS; 2018-12-14)
DX: A41.9 Sepsis, unspecified organism (principal); L89.154 Pressure ulcer of sacral region, stage 4; J69.0 Pneumonitis due to inhalation of food and vomit; R65.21 Severe sepsis with septic shock; K72.00 Acute and subacute hepatic failure without coma; J15.1 Pneumonia due to Pseudomonas; N17.0 Acute kidney failure with tubular necrosis; J15.212 Pneumonia due to Methicillin resistant Staphylococcus aureus; N39.0 Urinary tract infection, site not specified; Z99.11 Dependence on respirator [ventilator] status; G93.1 Anoxic brain damage, not elsewhere classified; G93.40 Encephalopathy, unspecified; E87.1 Hypo-osmolality and hyponatremia; J96.10 Chronic respiratory failure, unspecified whether with hypoxia or hypercapnia; I47.2 Ventricular tachycardia; E46 Unspecified protein-calorie malnutrition; Z93.0 Tracheostomy status; Z93.1 Gastrostomy status; E11.9 Type 2 diabetes mellitus without complications; G40.909 Epilepsy, unspecified, not intractable, without status epilepticus; Z85.038 Personal history of other malignant neoplasm of large intestine; G31.84 Mild cognitive impairment of uncertain or unknown etiology; I10 Essential (primary) hypertension; K82.4 Cholesterolosis of gallbladder; I49.01 Ventricular fibrillation; T17.908A Unspecified foreign body in respiratory tract, part unspecified causing other injury, initial encounter; D50.9 Iron deficiency anemia, unspecified; D47.3 Essential (hemorrhagic) thrombocythemia; E87.6 Hypokalemia; B96.20 Unspecified Escherichia coli [E. coli] as the cause of diseases classified elsewhere; K14.8 Other diseases of tongue
CPT/HCPCS: 36415; 36569; 36600; 71045; 72220; 74018; 74177; 76700; 76937; 80048; 80053; 80076; 80164; 80185; 80202; 81003; 82150; 82248; 82270; 82378; 82533; 82550; 82553; 82607; 82728; 82746; 82803; 82962; 83036; 83540; 83550; 83605; 83690; 83735; 83880; 83930; 83935; 84100; 84300; 84439; 84443; 84484; 84550; 85007; 85025; 85384; 85610; 85651; 85730; 86140; 86703; 86705; 86709; 86803; 86850; 86900; 86901; 86920; 87040; 87070; 87081; 87086; 87181; 87205; 87340; 92950; 93005; 93306; 94002; 94003; 94640; 94664; 96365; 99285; J0171; J1815; J2370; J7620; J8499; S5561